=== PATIENT | female | born 1950 ===

== ENCOUNTER 2020-02-10 20:30 | Inpatient (IN) | payer MEDICARE, OTHER ==
[~2020-02-10] VITALS: Ht 152.4 cm; Wt 55.7 kg
[2020-02-10 21:57] VITALS: BP 129/72
[2020-02-10] MEDS ORDERED: CETI10TA16 PO (22:34)
[2020-02-10] MEDS ORDERED: TRAZ-125 PO (22:34)
[2020-02-10] MEDS ORDERED: ATOR20TA58 PO (22:34)
[2020-02-10] MEDS ORDERED: DICY20TA3 PO (22:34)
[2020-02-10] MEDS ORDERED: CLON0.5T4 PO (22:34)
[2020-02-10] MEDS ORDERED: LEVE500T6 PO (22:34)
[2020-02-10] MEDS ORDERED: HYDR500C16 PO (22:34)
[2020-02-10] MEDS ORDERED: FLUT16SP21 NS (22:34)
[2020-02-10] MEDS ORDERED: UMEC62.5 IH (22:34)
[2020-02-10] MEDS ORDERED: MAGN400T5 PO (22:34)
[2020-02-10] MEDS ORDERED: DIPH1TAB PO (22:34)
[2020-02-10] MEDS ORDERED: ASPI-424 PO (22:34)
[2020-02-10] MEDS ORDERED: FURO20TA3 PO (22:34)
[2020-02-10] MEDS ORDERED: PANT40TA6 PO (22:34)
[2020-02-10] MEDS ORDERED: MIRA50TA PO (22:34)
[2020-02-10] MEDS ORDERED: DILT120T3 PO (22:34)
[2020-02-10] MEDS ORDERED: SULF500T7 PO (22:34)
[2020-02-10] MEDS ORDERED: LIPA1CAP PO (22:34)
[2020-02-10] MEDS ORDERED: GABA-586 PO (22:34)
[2020-02-10] MEDS ORDERED: DULO30CA2 PO (22:34)
[2020-02-10] MEDS ORDERED: ALBU2.5V8 IH (22:34)
[2020-02-10] MEDS ORDERED: POTA20TA4 PO (22:34)
[2020-02-10] MEDS ORDERED: METHYL SALICYLATE/MENTHOL TOPICAL OINTMENT 57GM TUBE. TP PRN (22:45)
[2020-02-10] MEDS ORDERED: ACETAMINOPHEN 325 MG TABLET PO PRN (22:45)
[2020-02-10] MEDS ORDERED: MAGNESIUM HYDROXIDE 2,400 MG/30 ML ORAL.SUSP. PO PRN (22:45)
[2020-02-10] MEDS ORDERED: MAG HYDROX/AL HYDROX/SIMETH 30 ML ORAL.SUSP PO PRN (22:45)
[2020-02-10 23:29] LABS: BASO # 0.1 x10^3/uL (0.0-0.2); BASO % 1 % (0-3); EOS # 0.2 x10^3/uL (0.0-0.7); EOS % 2 % (0-3); HEMOGLOBIN 11.5 g/dL (12.0-15.5); LYMPH # 1.4 x10^3/uL (1.0-4.8); LYMPH % 18 % (24-48); MEAN CORPUSCULAR HEMOGLOBIN 29 pg (25-35); MEAN CORPUSCULAR HGB CONC 32 g/dL (31-37); MEAN CORPUSCULAR VOLUME 90 fL (79-100); MONO # 0.6 x10^3/uL (0.0-1.1); MONO % 8 % (0-9); NEUT # 5.4 x10^3uL (1.8-7.7); NEUT % 71 % (31-73); PLATELET COUNT 304 x10^3/uL (140-400); RED CELL DISTRIBUTION WIDTH 25.3 % (11.5-14.5); WHITE BLOOD COUNT 7.7 x10^3/uL (4.0-11.0)
[2020-02-10 23:44] LABS: ANISOCYTOSIS MOD; MICROCYTOSIS SLIGHT; PLT ESTIMATE ADEQUATE (ADEQUATE)
[2020-02-10 23:45] LABS: ALBUMIN 2.2 g/dL (3.4-5.0); ALBUMIN/GLOBULIN RATIO 0.8 (1.0-1.7); CALCIUM 7.7 mg/dL (8.5-10.1); CREATININE 0.8 mg/dL (0.6-1.0); GFR 71.3; MAGNESIUM 1.4 mg/dL (1.8-2.4); POTASSIUM 3.4 mmol/L (3.5-5.1); TOTAL BILIRUBIN 0.5 mg/dL (0.2-1.0); TOTAL PROTEIN 5.1 g/dL (6.4-8.2)
[2020-02-10] MEDS ORDERED: ALBUTEROL SULFATE 2.5 MG/3 ML NEBU. IH PRN (23:45)
[2020-02-11] MEDS: sulfaSALAzine 500 MG TABLET PO SCH ×4 (01:00→21:23)
[2020-02-11] MEDS: DIPHENOXYLATE/ATROPINE TABLET. PO SCH ×5 (01:57→21:11)
[2020-02-11] MEDS: clonazePAM 0.5 MG TABLET PO SCH ×4 (01:57→21:11)
[2020-02-11] MEDS: DICYCLOMINE HCL 20 MG TABLET PO SCH ×4 (01:58→21:12)
[2020-02-11] MEDS: DULoxetine HCL 30 MG CAPSULE.DR PO SCH ×3 (01:58→21:12)
[2020-02-11] MEDS: ATORVASTATIN CALCIUM 20 MG TABLET PO SCH ×2 (01:58→21:12)
[2020-02-11] MEDS: GABAPENTIN 300 MG CAPSULE. PO SCH ×5 (01:58→21:13)
[2020-02-11] MEDS: traZODone 100 MG TABLET. PO SCH ×2 (01:58→21:12)
[2020-02-11] MEDS: levETIRAcetam 500 MG TABLET PO SCH ×3 (01:58→21:12)
--- NOTE | 2020-02-11 04:01 | NUR ---
Nursing Note Pt arrived on unit with transport, is pleasant and cooperative but is actively hallucinating. She is seeing her son in the chair, a dog on the floor, and hears voices that she has conversations with. Pt became upset when she had a large stool incontinence episode in her brief. Validated patients feelings and told her that we were happy to take care of her and willing. Pt med compliant and cooperative.
[2020-02-11 06:22] VITALS: BP 119/58
[2020-02-11] MEDS ORDERED: DILTIAZEM HCL 120 MG PO SCH (09:00)
[2020-02-11] MEDS ORDERED: LIPASE PO SCH (09:00)
[2020-02-11] MEDS ORDERED: sulfaSALAzine 500 MG TABLET PO SCH (09:00)
[2020-02-11] MEDS ORDERED: PROTEASE PO SCH (09:00)
[2020-02-11] MEDS ORDERED: AMYLASE PO SCH (09:00)
[2020-02-11] MEDS ORDERED: DICYCLOMINE HCL 20 MG TABLET PO SCH (09:00)
[2020-02-11] MEDS ORDERED: DIPHENOXYLATE/ATROPINE TABLET. PO SCH (09:00)
[2020-02-11] MEDS ORDERED: DULoxetine HCL 30 MG CAPSULE.DR PO SCH (09:00)
[2020-02-11] MEDS ORDERED: NON FORMULARY ITEM (Umeclidinium Bromide (Incruse Ellipta) 1 PUFF) IH SCH (09:00)
[2020-02-11] MEDS ORDERED: clonazePAM 0.5 MG TABLET PO SCH (09:00)
[2020-02-11] MEDS ORDERED: GABAPENTIN 300 MG CAPSULE. PO SCH (09:00)
[2020-02-11] MEDS ORDERED: levETIRAcetam 500 MG TABLET PO SCH (09:00)
[2020-02-11] MEDS: FLUTICASONE 50MCG/NASAL SPRAY 16GM BOTTLE. NS SCH (09:00)
[2020-02-11] MEDS: ASPIRIN ENTERIC COATED 81 MG TABLET.DR. PO SCH (09:17)
[2020-02-11] MEDS: CETIRIZINE HCL 10 MG TABLET PO SCH (09:17)
[2020-02-11] MEDS: LIPASE/PROTEAS/AMYLAS 10/32/42 CAPSULE.DR. PO SCH ×3 (09:17→17:37)
[2020-02-11] MEDS: PANTOPRAZOLE 40 MG TABLET. PO SCH (09:18)
[2020-02-11] MEDS: IPRATRPIUM/ALBUTEROL 0.5/2.5MG 3 ML NEBU. NEB SCH ×2 (09:20→12:38)
--- NOTE | 2020-02-11 09:29 | EKG ---
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
--- NOTE | 2020-02-11 12:12 | HP ---
ADMIT DATE: 02/11/2020 ATTENDING PHYSICIAN: Dr. Pardo. CHIEF COMPLAINT: The patient is here for admission to the [facility] Unit. HISTORY OF PRESENT ILLNESS: The patient is a 69-year-old female from [place], [place]. She has been confused. She has been on long-term narcotics. She has been seeing people and wandering around naked. She was scheduled to go to the [facility] to adjust her medications. PAST MEDICAL HISTORY: Quite complicated. She is chronically ill. She has had multiple surgeries at least 4 documented for Crohn's disease. She has short bowel syndrome. In addition, she has a diagnosis of chronic pain syndrome, idiopathic seizure disorder and supposedly polycythemia vera. I have seen some hemoglobin around 16 grams, today she is at 11 grams, we have held her hydroxyurea. She has a longstanding history of Crohn's disease; congestive heart failure, compensated; pulmonary hypertension; protein-calorie malnutrition and metabolic encephalopathy. She is a smoker as noted. She denies any significant alcohol use. CURRENT MEDICATIONS: Reviewed. She was on scheduled albuterol, aspirin, Lipitor, cetirizine, clonazepam, Bentyl, diltiazem, atropine and diphenoxylate schedule, Cymbalta, fluticasone, furosemide, Neurontin, hydroxyurea, Keppra, Creon, magnesium oxide, Myrbetriq, Protonix, potassium, sulfasalazine, trazodone and increased Ellipta. ALLERGIES: She has several allergies including BUTORPHANOL, CEFOTAXIME, CODEINE, GLUTEN and LACTOSE. Exact reaction is unclear. SOCIAL HISTORY: She is a smoker as noted. No recreational drug use. FAMILY HISTORY: Unobtainable. REVIEW OF SYSTEMS: Unobtainable due to the patient's confusion. PHYSICAL EXAMINATION: GENERAL: When I saw her, this is a chronically ill-appearing female, appearing older than her stated age. INITIAL VITAL SIGNS: Showed a blood pressure 119/58, pulse 102 and regular, temperature 96.6 degrees Fahrenheit, oxygen saturation 92% on 2 liters of nasal cannula. HEENT: Head is without trauma. Pupils are reactive. Sclerae nonicteric. Oropharynx clear. NECK: Supple, no bruits. LUNGS: Good breath sounds. CARDIOVASCULAR: Showed a tachycardic rhythm, rate 105 per minute. No gallops. ABDOMEN: Soft, no guarding. Multiple surgical scars are well healed. There are no masses palpated. EXTREMITIES: Show no cyanosis or edema. NEUROLOGIC: Confused and disoriented. SKIN: Otherwise, warm and dry. LABORATORY STUDIES: Admission hemoglobin was down to 11.5 g/dL, white count 7700. Electrolytes: Sodium 142 mEq, potassium 3.4, creatinine 0.8 mg percent. Transaminases within normal range. Nonfasting blood sugar 121. ASSESSMENT: 1. A 69-year-old female with delirium and confusion. She has behavioral issues. There is underlying dementia. 2. Short bowel syndrome due to multiple surgeries from Crohn's disease. 3. Longstanding history of Crohn's disease. 4. Supposed history of polycythemia vera. She has been on hydroxyurea. Her counts are actually on the low side. 5. Narcotic dependence. RECOMMENDATIONS AND PLAN: 1. She will be admitted to the [facility] for behavioral issues pending her COVID-19 swab. 2. I have continued most of her home meds. For now, I have stopped her hydroxyurea as she does not need it. Whether or not she had polycythemia in the past, remains to be seen whether this was primary or secondary. This was ordered by role player in the past. 3. Underlying confusion and delirium. 4. History of Crohn's disease. 5. History of substance abuse and narcotic use. PLAN: 1. As I have discussed, she will be going to the [facility] when COVID-19 swabs are negative. 2. Continue some home meds. 3. Follow up CBCs and chemistries. I shall follow up with her closely when she goes to the [facility]. DMITRI PARDO MD DR: FRANCIS/caden JOB#: [id number] / [id number]
[2020-02-11 13:03] LABS: BACTERIA,URINE 0 /HPF (0-FEW); BILIRUBIN,URINE NEG (NEG); CLARITY,URINE CLEAR; COLOR,URINE YELLOW; GLUCOSE,URINE NEG (NEG); NITRITE,URINE NEG (NEG); RBC,URINE 0 /HPF (0-2); SQUAMOUS EPITHELIAL CELL,UR MOD /LPF; UROBILINOGEN,URINE 0.2 mg/dL (0.2 mg/dL)
[2020-02-11] MEDS ORDERED: ALBUTEROL SULFATE 8GM INHALER. INH PRN (16:15)
[2020-02-11] MEDS: IPRATROPIUM/ALBUTEROL 20/100mcg/INH INHALER. INH SCH ×2 (17:37→20:00)
[2020-02-11 18:11] VITALS: BP 102/62
[2020-02-11 19:40] LABS: THYROID STIM HORMONE (TSH) 0.053 uIU/mL (0.358-3.740)
[2020-02-11] MEDS ORDERED: traZODone 100 MG TABLET. PO SCH (21:00)
[2020-02-11] MEDS ORDERED: ATORVASTATIN CALCIUM 20 MG TABLET PO SCH (21:00)
[2020-02-11] MEDS: LACTOBACILLUS RHAMNOSUS GG 1 CAPSULE. PO SCH (21:14)
--- NOTE | 2020-02-11 22:03 | PDOC ---
Exam Note: Napoleon Note: Please also refer to the separate dictated note~for this date of service dictated separately.~Patient seen individually. Discussed the patient with Nursing staff reviewed the chart.~Reviewed interim history and current functioning. Reviewed vital signs,~Labs/ Radiology~and current medications noted below. Continue current treatment with the changes noted in the dictated addendum note Assessment: Vital Signs/I&O: Vital Signs Date Time Temp Pulse Resp B/P (MAP) Pulse Ox O2 Delivery O2 Flow Rate FiO2 02/11/20 18:11 98.1 97 18 102/62 (75) 95 02/11/20 08:15 Room Air 02/11/20 06:22 2.0 I & O 0 02/10/20 02/10/20 02/11/20 15:00 23:00 07:00 Intake Total 240 ml Balance 240 ml Labs: Laboratory Tests Test 02/10/20 23:12 02/11/20 10:30 White Blood Count 7.7 x10^3/uL (4.0-11.0) Red Blood Count 4.00 x10^6/uL (3.50-5.40) Hemoglobin 11.5 g/dL (12.0-15.5) L Hematocrit 36.0 % (36.0-47.0) Mean Corpuscular Volume 90 fL (79-100) Mean Corpuscular Hemoglobin 29 pg (25-35) Mean Corpuscular Hemoglobin Concent 32 g/dL (31-37) Red Cell Distribution Width 25.3 % (11.5-14.5) H Platelet Count 304 x10^3/uL (140-400) Neutrophils (%) (Auto) 71 % (31-73) Lymphocytes (%) (Auto) 18 % (24-48) L Monocytes (%) (Auto) 8 % (0-9) Eosinophils (%) (Auto) 2 % (0-3) Basophils (%) (Auto) 1 % (0-3) Neutrophils # (Auto) 5.4 x10^3uL (1.8-7.7) Lymphocytes # (Auto) 1.4 x10^3/uL (1.0-4.8) Monocytes # (Auto) 0.6 x10^3/uL (0.0-1.1) Eosinophils # (Auto) 0.2 x10^3/uL (0.0-0.7) Basophils # (Auto) 0.1 x10^3/uL (0.0-0.2) Platelet Estimate Adequate (ADEQUATE) Anisocytosis Mod Microcytosis Slight Sodium Level 142 mmol/L (136-145) Potassium Level 3.4 mmol/L (3.5-5.1) L Chloride Level 107 mmol/L (98-107) Carbon Dioxide Level 25 mmol/L (21-32) Anion Gap 10 (6-14) Blood Urea Nitrogen 9 mg/dL (7-20) Creatinine 0.8 mg/dL (0.6-1.0) Estimated GFR (Cockcroft-Gault) 71.3 BUN/Creatinine Ratio 11 (6-20) Glucose Level 121 mg/dL (70-99) H Calcium Level 7.7 mg/dL (8.5-10.1) L Magnesium Level 1.4 mg/dL (1.8-2.4) L Iron Level 37 ug/dL (50-170) L Total Iron Binding Capacity 267 ug/dL (250-450) Iron Saturation 14 % (15-34) L Total Bilirubin 0.5 mg/dL (0.2-1.0) Aspartate Amino Transferase (AST) 13 U/L (15-37) L Alanine Aminotransferase (ALT) 16 U/L (14-59) Alkaline Phosphatase 78 U/L (46-116) Total Protein 5.1 g/dL (6.4-8.2) L Albumin 2.2 g/dL (3.4-5.0) L Albumin/Globulin Ratio 0.8 (1.0-1.7) L Triglycerides Level 72 mg/dL (0-150) Cholesterol Level 85 mg/dL (0-200) LDL Cholesterol, Calculated 28 mg/dL (0-100) VLDL Cholesterol, Calculated 14 mg/dL (0-40) Non-HDL Cholesterol Calculated 42 mg/dL (0-129) HDL Cholesterol 43 mg/dL (40-60) Cholesterol/HDL Ratio 1.0 Vitamin B12 Level 236 pg/mL (247-911) L 25-Hydroxy Vitamin D Total 14.4 ng/mL (30-100) L Thyroid Stimulating Hormone (TSH) 0.053 uIU/mL (0.358-3.740) Treponema pallidum Antibody Nonreactive (Nonreactive) Urine Collection Type Unknown Urine Color Yellow Urine Clarity Clear Urine pH 6.0 Urine Specific [place] 1.015 Urine Protein Neg (NEG-TRACE) Urine Glucose (UA) Neg mg/dL (NEG) Urine Ketones (Stick) Neg mg/dL (NEG) Urine Blood Neg (NEG) Urine Nitrite Neg (NEG) Urine Bilirubin Neg (NEG) Urine Urobilinogen Dipstick 0.2 mg/dL (0.2 mg/dL) Urine Leukocyte Esterase Trace (NEG) Urine RBC 0 /HPF (0-2) Urine WBC 1-4 /HPF (0-4) Urine Squamous Epithelial Cells Mod /LPF Urine Bacteria 0 /HPF (0-FEW) Urine Mucus Slight /LPF Current Medications: Meds: Current Medications Medications (Trade) Dose Ordered Sig/Mya Route PRN Reason Start Time Stop Time Status Last Admin Dose Admin Aspirin (Aspirin Enteric Coated) 81 mg DAILYWBKFT PO 02/11/20 08:00 02/11/20 09:17 Cetirizine HCl (ZyrTEC) 10 mg DAILY PO 02/11/20 09:00 02/11/20 09:17 Pantoprazole Sodium (Protonix) 40 mg DAILYAC PO 02/11/20 07:30 02/11/20 09:18 Atorvastatin Calcium (Lipitor) 20 mg QHS PO 02/11/20 01:00 02/11/20 21:12 Clonazepam (KlonoPIN) 1 mg TID PO 02/11/20 01:00 02/11/20 21:11 Dicyclomine HCl (Bentyl) 20 mg TID PO 02/11/20 01:00 02/11/20 21:12 Diphenoxylate HCl/ Atropine (Lomotil) 2 tab QID PO 02/11/20 01:00 02/11/20 21:11 Duloxetine HCl (Cymbalta) 30 mg BID PO 02/11/20 01:00 02/11/20 21:12 Gabapentin (Neurontin) 300 mg QID PO 02/11/20 01:00 02/11/20 21:13 Levetiracetam (Keppra) 500 mg BID PO 02/11/20 01:00 02/11/20 21:12 Sulfasalazine (Azulfidine) 500 mg TID PO 02/11/20 01:00 02/11/20 21:23 Trazodone HCl (Desyrel) 100 mg QHS PO 02/11/20 01:00 02/11/20 21:12 Diltiazem HCl (Cardizem 24hr Cd) 120 mg DAILY PO 02/11/20 01:00 02/11/20 09:18 Albuterol/ Ipratropium (Duoneb) 3 ml RTQID NEB 02/11/20 08:00 02/11/20 15:58 DC 02/11/20 12:38 Amylase/Lipase/ Protease (Zenpep 10,000) 2 cap TIDWMEALS PO 02/11/20 08:00 02/11/20 17:37 Albuterol/ Ipratropium (Combivent Respimat 20-100 Mcg) 1 puff RTQID INH 02/11/20 16:00 02/11/20 17:37 Lactobacillus Rhamnosus (Culturelle) 1 cap BID PO 02/11/20 21:00 02/11/20 21:14 I have reviewed the current psychotropics carefully including drug interactions. Risk benefit ratio favors no change other than as noted in my dictated progress note. NITHIN STEVENS MD Feb 11, 2020 22:03
[2020-02-12 02:06] LABS: HEMOGLOBIN A1C 5.5 % (4.8-5.6); THYROXINE 6.5 ug/dL (4.5-12.0)
[2020-02-12 06:06] VITALS: BP_SYST 101; BP_SYST 107; BP_DIAS 58; BP_DIAS 62
[2020-02-12] MEDS: PANTOPRAZOLE 40 MG TABLET. PO SCH (07:52)
[2020-02-12] MEDS: sulfaSALAzine 500 MG TABLET PO SCH ×3 (07:52→20:24)
[2020-02-12] MEDS: levETIRAcetam 500 MG TABLET PO SCH ×2 (07:52→20:23)
[2020-02-12] MEDS: ASPIRIN ENTERIC COATED 81 MG TABLET.DR. PO SCH (07:53)
[2020-02-12] MEDS: LACTOBACILLUS RHAMNOSUS GG 1 CAPSULE. PO SCH ×2 (07:53→20:21)
[2020-02-12] MEDS: MIRABEGRON 25 MG TAB.ER.24H PO SCH (07:53)
[2020-02-12] MEDS: DIPHENOXYLATE/ATROPINE TABLET. PO SCH ×4 (07:53→20:25)
[2020-02-12] MEDS: DULoxetine HCL 30 MG CAPSULE.DR PO SCH ×2 (07:53→20:23)
[2020-02-12] MEDS: LIPASE/PROTEAS/AMYLAS 10/32/42 CAPSULE.DR. PO SCH ×3 (07:54→16:41)
[2020-02-12] MEDS: clonazePAM 0.5 MG TABLET PO SCH ×2 (07:54→14:49)
[2020-02-12] MEDS: GABAPENTIN 300 MG CAPSULE. PO SCH ×4 (07:54→20:24)
[2020-02-12] MEDS: DICYCLOMINE HCL 20 MG TABLET PO SCH ×3 (07:54→20:24)
[2020-02-12] MEDS: FLUTICASONE 50MCG/NASAL SPRAY 16GM BOTTLE. NS SCH (07:55)
[2020-02-12] MEDS: CETIRIZINE HCL 10 MG TABLET PO SCH (07:59)
[2020-02-12] MEDS: IPRATROPIUM/ALBUTEROL 20/100mcg/INH INHALER. INH SCH ×4 (08:02→20:21)
[2020-02-12] MEDS ORDERED: FLU VACC QS 2020-21(6MOS+)/PF 0.5 ML SYRINGE. VAX IM ONE (09:00)
[2020-02-12 11:08] VITALS: BP 136/74
--- NOTE | 2020-02-12 13:08 | PN ---
DATE: 02/12/2020 ATTENDING PHYSICIAN: Dr. Pardo. SUBJECTIVE: The patient has a diffuse nonspecific abdominal pain, she looks very depressed. She has no appetite. Food smell is nauseating to her. OBJECTIVE FINDINGS: VITAL SIGNS: Blood pressure today is 136/74, pulse 104 and regular. She is afebrile. Oxygen saturation 95%. HEENT: Head is without trauma. Pupils are reactive. Sclerae nonicteric. Oropharynx clear. NECK: Supple, no bruits. LUNGS: Shallow respirations. CARDIOVASCULAR: Showed a tachycardic rhythm. No gallops. ABDOMEN: Diffuse tenderness, guarding. Hypoactive bowel sounds. No masses palpated. Multiple scars are well healed. EXTREMITIES: Showed trace edema. NEUROLOGIC: Very flat affect. ASSESSMENT: 1. A 69-year-old female with delirium and confusion. There is underlying dementia. 2. Short bowel syndrome due to multiple surgeries for Crohn's disease. 3. Longstanding history of Crohn's disease. 4. Supposed history of polycythemia vera. 5. Probable narcotic withdrawal from long-term narcotic dependence. PLAN: 1. Medications reviewed. 2. Await [facility] admission following her COVID-19 swab. 3. Continue home meds. 4. Minimize narcotic use. DMITRI PARDO MD DR: FRANCIS/caden JOB#: [id number] / [id number]
[2020-02-12 15:00] VITALS: BP 102/55
--- NOTE | 2020-02-12 18:36 | NUR ---
Staff reports that patient put herself on the floor in her room. Staff reports seeing patient lower herself to the floor then crawling a few steps. Patient reports no pain or injuries. She is hypotensive. Staff assisted patient to her commode and reported that patient was able to do most of the work of standing and transferring herself. Will continue to monitor and report to oncoming shift.
[2020-02-12 18:37] VITALS: BP 89/60
[2020-02-12] MEDS: ATORVASTATIN CALCIUM 20 MG TABLET PO SCH (20:22)
[2020-02-12] MEDS: traZODone 100 MG TABLET. PO SCH (20:24)
[2020-02-12] MEDS: clonazePAM 1 MG TABLET PO SCH (20:26)
--- NOTE | 2020-02-12 20:53 | HP ---
ADMIT DATE: 02/11/2020 PSYCHITRIC ADMISSION HISTORY/EVALUATION TELEHEALTH SERVICES IDENTIFYING DATA: The patient is a 69-year-old female referred by her primary care physician. The patient reportedly lives at home, has been actively hallucinating. She has been going outside at night, dancing ____ under the moonlight. She has been anxious, wandering, have marked insomnia, tearful. She is having significant self-care deficit. Behaviors are deemed dangerous, unmanageable, functioning level is a potential danger to herself and she is referred for inpatient psychiatric stabilization. She is [facility] per Dr. Cheng, awaiting a COVID negative status before being transitioned to the [facility] and I have been asked to consult on her. CHIEF COMPLAINT: "I remember you from 15 years ago." HISTORY OF PRESENT ILLNESS: In fact, I have seen the patient about 15-20 years ago while at the [facility]. She has a diagnosis of major depressive disorder, questionable bipolar disorder, marked anxiety disorder. She has been living alone at home. States she is unable to function adequately and feels she needs a higher level of care. She has been somewhat hyperverbal, grandiose, paranoid. No active suicidal or homicidal ideation. PAST PSYCHIATRIC HISTORY: As above. MEDICAL HISTORY: Positive for polycythemia, thrombocytopenia, anxiety, COPD, back pain, degenerative joint disease, degenerative disk disease, short bowel syndrome, fibromyalgia, GERD, seizures, insomnia, osteoarthritis, panic attacks. CODE STATUS: Full code. ALLERGIES: CODEINE, CEFOXITIN, GLUTEN, LACTOSE, STADOL. DIET: Lactose free, gluten-free. ACTIVITY: Ambulates up with walker, standby assist. CURRENT PSYCHOTROPICS: Klonopin 1 mg t.i.d., Cymbalta 30 mg b.i.d., Neurontin 300 mg 4 times a day, Keppra 500 mg b.i.d., trazodone 100 mg at bedtime. FAMILY HISTORY: Noncontributory. SOCIAL HISTORY: No history of alcohol, drug abuse, physical, sexual or elder abuse. She is not known to be a perpetrator. 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 REACTION TO HOSPITALIZATION: The patient accepting of it. ASSETS: Supportive family. REVIEW OF SYSTEMS: No CV, , pulmonary, eye system symptoms on review. Gait unsteady with walker. MENTAL STATUS EXAM: The patient is reasonably oriented. Speech is coherent, abstraction fair, computation reasonable, language function intact, attention span short. Mood and affect somewhat labile. Attention span short. No active suicidal or homicidal ideation. LABORATORY DATA: Reviewed. IMPRESSION: Major depressive disorder, rule out bipolar disorder, mixed with psychotic features; anxiety disorder, unspecified; impulse control disorder, unspecified. Rest as above. PLAN: Recommendation from a psychiatric standpoint to continue the patient on her current psychotropics, observe baseline, adjust as clinically indicated. Await echo with negative status and then transition to [facility]. Further plans will be determined thereafter. NITHIN STEVENS MD DR: PAYTON/caden JOB#: [id number] / [id number]
[2020-02-12] MEDS ORDERED: QUEtiapine 25 MG TABLET. PO SCH (21:00)
[2020-02-12 21:36] VITALS: BP 105/64
--- NOTE | 2020-02-12 22:35 | PDOC ---
Exam Note: Napoleon Note: Please also refer to the separate dictated note~for this date of service dictated separately.~Patient seen individually. Discussed the patient with Nursing staff reviewed the chart.~Reviewed interim history and current functioning. Reviewed vital signs,~Labs/ Radiology~and current medications noted below. Continue current treatment with the changes noted in the dictated addendum note Assessment: Vital Signs/I&O: Vital Signs Date Time Temp Pulse Resp B/P (MAP) Pulse Ox O2 Delivery O2 Flow Rate FiO2 02/12/20 21:36 98.0 96 20 105/64 (78) 95 Nasal Cannula 2.0 I & O 02/11/20 02/11/20 02/12/20 15:00 23:00 07:00 Intake Total 480 ml 1200 ml 200 ml Balance 480 ml 1200 ml 200 ml Current Medications: Meds: Current Medications Medications (Trade) Dose Ordered Sig/Mya Route PRN Reason Start Time Stop Time Status Last Admin Dose Admin Mirabegron (Myrbetriq) 50 mg DAILY PO 02/12/20 09:00 02/12/20 07:53 Influenza Virus Vaccine Quadrival (Fluzone Quad Syringe) 0.5 ml ONCE ONCE VAX IM 02/12/20 09:00 02/12/20 09:01 DC 02/12/20 12:11 Clonazepam (KlonoPIN) 1 mg 1400,2100 PO 02/12/20 21:00 02/12/20 20:26 Quetiapine Fumarate (SEROquel) 25 mg QHS PO 02/12/20 21:00 02/12/20 20:24 I have reviewed the current psychotropics carefully including drug interactions. Risk benefit ratio favors no change other than as noted in my dictated progress note. Diagnosis: Problems: (1) Major depressive disorder with psychotic features (2) Anxiety disorder, unspecified (3) Impulse control disorder, unspecified NITHIN STEVENS MD Feb 12, 2020 22:35
--- NOTE | 2020-02-12 23:59 | NUR ---
Patient is awake in bed on assumption of care. She is disorganized, confused, forgetful. Gait is unsteady. Compliant with assessments. Needed several cues to swallow her pills, she kept rolling them around in her mouth. Once she had swallowed them, she apologized, stating "Sorry for being so difficult." This nurse reassured her that was not the case, that she was no trouble at all. No agitation. Patient denies any pain or discomfort. No hallucinations or delusions noted so far this shift. Patient appears to be sleeping comfortably at present time. Bed alarm is on for safety. Will continue to monitor.
[2020-02-13 06:00] VITALS: BP 112/58
--- NOTE | 2020-02-13 06:35 | PDOC ---
Exam Note: Napoleon Note: This note is a late entry for 02/12/2020 covers elements not covered in my initial note. Subjective: The patient was reviewed on telehealth rounds in the evening of 02/12/2020 with Hadley BARR. Discussed with nursing staff, reviewed the chart. The patient has been somewhat helpless, attention seeking but not tearful. She complains of GI symptoms and will defer to Dr Cheng. Review of Systems: No CV, , pulmonary, eye system symptoms on review. Ambulation impaired. Mental Status Exam: Reasonably oriented. Speech is coherent. Abstraction fair. Computation impaired. Language function impaired. Mood and affect remains somewhat labile. Laboratory Data: Reviewed. Impression: Bipolar disorder mixed. Major depressive disorder. Anxiety disorder unspecified. Plan: The patient is on Klonopin 1 mg t.i.d. for anxiety. This is rather high dosage. She is somewhat sedated at times. We will reduce to 0.5 mg a.m., 1 mg b.i.d. and further reduce in due course and maintain Cymbalta 30 mg b.i.d., gabapentin 300 mg 4 times a day, Keppra 500 mg b.i.d. for seizure disorder and we will consult Dr. Alvarado for this, and trazodone will be maintained at 100 mg h.s. We will start Seroquel 25 mg h.s. as a mood stabilizer. Assessment: Vital Signs/I&O: Vital Signs Date Time Temp Pulse Resp B/P (MAP) Pulse Ox O2 Delivery O2 Flow Rate FiO2 02/12/20 21:36 98.0 96 20 105/64 (78) 95 Nasal Cannula 2.0 I & O 02/12/20 02/12/20 02/13/20 15:00 23:00 07:00 Intake Total 600 ml 640 ml 0 ml Output Total 600 ml Balance 600 ml 40 ml 0 ml Current Medications: Meds: Current Medications Medications (Trade) Dose Ordered Sig/Mya Route PRN Reason Start Time Stop Time Status Last Admin Dose Admin Mirabegron (Myrbetriq) 50 mg DAILY PO 02/12/20 09:00 02/12/20 07:53 Influenza Virus Vaccine Quadrival (Fluzone Quad Syringe) 0.5 ml ONCE ONCE VAX IM 02/12/20 09:00 10/2/20 09:01 DC 02/12/20 12:11 Clonazepam (KlonoPIN) 1 mg 1400,2100 PO 02/12/20 21:00 02/12/20 20:26 Quetiapine Fumarate (SEROquel) 25 mg QHS PO 02/12/20 21:00 02/12/20 20:24 I have reviewed the current psychotropics carefully including drug interactions. Risk benefit ratio favors no change other than as noted in my dictated progress note. Diagnosis: Problems: (1) Impulse control disorder, unspecified (2) Anxiety disorder, unspecified (3) Major depressive disorder with psychotic features NITHIN STEVENS MD Feb 13, 2020 06:35
--- NOTE | 2020-02-13 06:57 | NUR ---
Pt. was pleasant with all interactions throughout shift. Pt enjoyed talking about her family (two sons and their children) Pt asked "will I have to bring my own tv when i transfer upstairs?" i responded that we did not have tvs in the room upstairs because part of the therapeutic process involved getting restful sleep and that TV tended to be counter productive. pt said "aw man, no tv!" I replied to pt that we did have kindles and we could get her set up so that she could watch some programming. Pt was satisfied with this plan. Pt had difficulty maintaining posture in the evening (falling over to one side or back when attempting to sit up on the edge of bed). Pt had difficulty transfering from bed to commode, was able to bear weight but unable to maintain balance (listing to the side and appeared likely to collapse). Pt sat on commode and requested water to be ran "to help her pee" and responded "sometimes" when I asked if she had difficulty urinating. I moved the commode closer to bed so that pt would be able to stand and pivot to commode rather than walk to it. A gaitbelt would be helpful in maintaining safety with transfers while pt is unsteady. In AM pt. was also unable to mantain posture while sitting, when assisting pt to commode I requested assistance of the nurse for two person transfer. Pt. was incontinent of urine in AM and i changed brief and bed asad (was also wet with urine from overnight incontinence). After sitting on the commode for approximately 10 minutes pt was able to grab bedrail and loop arm under my arm and rise to standing position. I asked pt to hold on rail while i cleansed sara area with green incontinence wipes. I pulled pt brief up and assisted her to sitting position on the bed before assisting pt with legs into bed and helped her straighten up once she was lying in bed. Pt was talkative in AM and enjoyed the company of staff.
[2020-02-13] MEDS: IPRATROPIUM/ALBUTEROL 20/100mcg/INH INHALER. INH SCH ×2 (08:54→12:05)
[2020-02-13] MEDS: PANTOPRAZOLE 40 MG TABLET. PO SCH (08:54)
[2020-02-13] MEDS: ASPIRIN ENTERIC COATED 81 MG TABLET.DR. PO SCH (08:54)
[2020-02-13] MEDS: FLUTICASONE 50MCG/NASAL SPRAY 16GM BOTTLE. NS SCH (08:54)
[2020-02-13] MEDS: LIPASE/PROTEAS/AMYLAS 10/32/42 CAPSULE.DR. PO SCH ×2 (08:54→12:04)
[2020-02-13] MEDS: DULoxetine HCL 30 MG CAPSULE.DR PO SCH (08:55)
[2020-02-13] MEDS: levETIRAcetam 500 MG TABLET PO SCH (08:55)
[2020-02-13] MEDS: sulfaSALAzine 500 MG TABLET PO SCH ×2 (08:55→12:04)
[2020-02-13] MEDS: DICYCLOMINE HCL 20 MG TABLET PO SCH ×2 (08:55→12:04)
[2020-02-13] MEDS: LACTOBACILLUS RHAMNOSUS GG 1 CAPSULE. PO SCH (08:55)
[2020-02-13] MEDS: CETIRIZINE HCL 10 MG TABLET PO SCH (08:56)
[2020-02-13] MEDS: GABAPENTIN 300 MG CAPSULE. PO SCH ×2 (08:56→12:04)
[2020-02-13] MEDS: MIRABEGRON 25 MG TAB.ER.24H PO SCH (08:56)
[2020-02-13 09:00] VITALS: BP 112/58
[2020-02-13] MEDS ORDERED: clonazePAM 0.5 MG TABLET PO SCH (09:00)
[2020-02-13] MEDS: DIPHENOXYLATE/ATROPINE TABLET. PO SCH ×2 (09:06→12:04)
[2020-02-13 10:18] LABS: ALBUMIN 2.2 g/dL (3.4-5.0); ALBUMIN/GLOBULIN RATIO 0.7 (1.0-1.7); CREATININE 0.9 mg/dL (0.6-1.0); GFR 62.3; POTASSIUM 3.9 mmol/L (3.5-5.1); TOTAL BILIRUBIN 0.6 mg/dL (0.2-1.0); TOTAL PROTEIN 5.2 g/dL (6.4-8.2)
--- NOTE | 2020-02-13 10:29 | NUR ---
Dr. Cheng informed of urine C & S. New order for Keflex 250mg PO TID x 5 days
[2020-02-13] MEDS ORDERED: levoFLOXacin 250 MG TABLET PO SCH (10:30)
--- NOTE | 2020-02-13 10:34 | NUR ---
Spoke to Paula in the pharmacy regarding pts abt allergy. She will call Dr. Cheng and recommend Adithya.
--- NOTE | 2020-02-13 11:47 | NUR ---
Discharge Note: SHY MCGHEE Discharge instructions and discharge home medications reviewed with Imposer and a copy given. All questions have been answered and understanding verbalized. The following instructions and handouts were given: Discontinued lines and drains: none present. Patient discharged to [facility] accompanied by [facility] Staff via Wheelchair.
[2020-02-13] MEDS: clonazePAM 1 MG TABLET PO SCH (12:04)
[2020-02-13 12:13] VITALS: BP 105/64
--- NOTE | 2020-02-13 13:11 | NUR ---
Pt was on the commode in her room and requested assistance to go to bed. While assisting pt to bed nurse educated pt on UTI's. Pt stated "I don't appreciate being scolded at my age." Nurse informed pt she was not being scolded, the nurse was educating her on UTI's since she (the pt) currently has one." Pt then attempted to stand from the commode, became wobbly and sat down. When nurse assisted pt, pt stated I don't need your help. Nurse educated, and reminded pt about falls. Pt then allowed nurse to assist. Pt then utilized her rolling walker and walked rolling walker to the wall and bent over at a 90 degree angle. When nurse asked what she was doing pt stated she was putting her walker over there. The pt then turned around and attemted to pick a item off the floor and placed herself on the floor while nurse had her hands under the pts arms. Nurse assisted pt to bed, placed side, rails up, bed alarm on and educated pt on safety and fall prevention. Pt stated. "they told me this place was good boy were they wrong." Pt continued to ask nurse for several items such as a blanket and to pull a table closer to her. Call light is within reach.
[2020-02-13] MEDS ORDERED: METH57CR17 TP (16:35)
[2020-02-13] MEDS ORDERED: ALBU2.5V8 IH (16:35)
[2020-02-13] MEDS ORDERED: LEVO500T8 PO (16:35)
[2020-02-13] MEDS ORDERED: QUET25TA5 PO (16:35)
[2020-02-13] MEDS ORDERED: MAGN24003 PO (16:35)
[2020-02-13] MEDS ORDERED: MAG355OR12 PO (16:35)
[2020-02-13] MEDS ORDERED: IPRA4AER INH (16:35)
[2020-02-13] MEDS ORDERED: CLON1TAB PO (16:35)
[2020-02-13] MEDS ORDERED: LACT1CAP21 PO (16:35)
[2020-02-13] MEDS ORDERED: ACET325T9 PO (16:35)
[2020-02-13] MEDS ORDERED: LACTOBACILLUS RHAMNOSUS GG 1 CAPSULE. PO SCH (21:00)
--- NOTE | 2020-02-14 02:58 | DS ---
DATE OF DISCHARGE: 02/13/2020 ATTENDING PHYSICIAN: Dr. Pardo FINAL DISCHARGE DIAGNOSES: 1. Acute delirium with confusion. 2. Underlying dementia. 3. 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 4. Crohn's disease. 5. History of polycythemia vera. 6. Probable narcotic withdrawal from long-term narcotic dependence. HISTORY OF PRESENT ILLNESS: This 69-year-old female is admitted to the medical floor for screening COVID-19. Eventually, she is scheduled to go to the [facility]. She comes from a [facility] and has significant delusional aspect along with behavioral issues. PHYSICAL EXAMINATION: Please see the dictated note. PERTINENT LABORATORY AND X-RAY STUDIES: Her coronavirus screen was not detected. Treponema pallidum was nonreactive. Hemoglobin was 11.5 g/dL. White count 7700. Electrolytes, BUN and creatinine, blood sugar are all within normal range. COURSE IN THE HOSPITAL: The patient was admitted. We continued most of her home meds. Diet was advanced. She had COVID-19 screening. She was medically stable. COVID-19 screen came back positive. On the third hospital day, she was discharged to be readmitted in the [facility]. She will follow a regular diet as tolerated. Her discharge meds are basically unchanged. They include the following: She will have continuation of her aspirin daily, Lipitor daily, cetirizine, clonazepam 0.5 mg t.i.d., Bentyl 20 mg t.i.d., diltiazem 120 t.i.d., fluticasone nasal spray, Lasix, Neurontin, Keppra, Creon, magnesium oxide, Myrbetriq, Protonix, potassium supplementation, sulfasalazine, trazodone and Incruse Ellipta, doses unchanged. She is a full code. Her prognosis is guarded. She was discharged then from our service to go to the [facility] in stable condition with explicit instructions and followup care. DMITRI PARDO MD DR: FRANCIS/caden JOB#: [id number] / [id number]
== END 2020-02-13 14:02 | disposition short-term general hospital (02) | DRG 948 ==
LOC: LND 20:30
PROVIDERS: ADMIT Hospitalist; ATTEND Hospitalist
DX: R41.0 Disorientation, unspecified (principal); K91.2 Postsurgical malabsorption, not elsewhere classified; K50.90 Crohn's disease, unspecified, without complications; F31.9 Bipolar disorder, unspecified; G89.4 Chronic pain syndrome; F63.9 Impulse disorder, unspecified; F41.9 Anxiety disorder, unspecified; Z20.828 Contact with and (suspected) exposure to other viral communicable diseases; D75.1 Secondary polycythemia; D69.6 Thrombocytopenia, unspecified; J44.9 Chronic obstructive pulmonary disease, unspecified; K21.9 Gastro-esophageal reflux disease without esophagitis; M19.90 Unspecified osteoarthritis, unspecified site; F41.0 Panic disorder [episodic paroxysmal anxiety]; Z91.83 Wandering in diseases classified elsewhere; I50.9 Heart failure, unspecified; F17.210 Nicotine dependence, cigarettes, uncomplicated; G40.909 Epilepsy, unspecified, not intractable, without status epilepticus
CPT/HCPCS: 36415; 80053; 80061; 81001; 82306; 82607; 83036; 83540; 83550; 83735; 84436; 84443; 84480; 85025; 86592; 87077; 87086; 87186; 90471; 93005; J7613; 90686; U0003-CS

== ENCOUNTER 2020-02-13 14:02 | Inpatient (IN) | payer MEDICARE, OTHER ==
[~2020-02-13] VITALS: Ht 152.4 cm; Wt 56.0 kg
[~2020-02-13 14:02] MED LIST: ALBU2.5V8 IH; ASPI-424 PO; ATOR20TA58 PO; CETI10TA16 PO; CLON0.5T4 PO; DICY20TA3 PO; DILT120T3 PO; DIPH1TAB PO; DULO30CA2 PO; FLUT16SP21 NS; FURO20TA3 PO; GABA-586 PO; HYDR500C16 PO; LEVE500T6 PO; LIPA1CAP PO; MAGN400T5 PO; MIRA50TA PO; PANT40TA6 PO; POTA20TA4 PO; SULF500T7 PO; TRAZ-125 PO; UMEC62.5 IH
--- NOTE | 2020-02-13 14:30 | NUR ---
Admission Note with Justification for Admission to [facility] Patient admitted to [facility] for protective oversight for emergency stabilization of acute psychiatric crisis. Pt admitted from: 48 hr unit Mode of arrival: wc Accompanied By: [facility] staff Precipitating behaviors that initiated intake and admission: hallucinations, running outside naked. anxiety Description of failure of out patient attempts at stabilization in previous setting list behavior and medication trials: clonapin, seroquel Behaviors and assessment findings upon admission: anxious attention seeking Plan: Admit for protective oversight for adjustment and stabilization of medications, behaviors and mood. Intense treatment regimen including groups, medication adjustments, therapy, consistent regimen for ADL's, self care, and sleep hygiene. Daily monitoring by Inpatient staff, Psychiatry, and Medical Physician.
[2020-02-13 15:45] VITALS: BP 100/69
[2020-02-13] MEDS ORDERED: LACT1CAP21 PO (16:35)
[2020-02-13] MEDS ORDERED: IPRA4AER INH (16:35)
[2020-02-13] MEDS ORDERED: ACET325T9 PO (16:35)
[2020-02-13] MEDS ORDERED: MAG355OR12 PO (16:35)
[2020-02-13] MEDS ORDERED: CLON1TAB PO (16:35)
[2020-02-13] MEDS ORDERED: MAGN24003 PO (16:35)
[2020-02-13] MEDS ORDERED: QUET25TA5 PO (16:35)
[2020-02-13] MEDS ORDERED: ALBU2.5V8 IH (16:35)
[2020-02-13] MEDS ORDERED: LEVO500T8 PO (16:35)
[2020-02-13] MEDS ORDERED: METH57CR17 TP (16:35)
[2020-02-13] MEDS ORDERED: ACETAMINOPHEN 325 MG TABLET PO PRN (16:45)
[2020-02-13] MEDS ORDERED: ALBUTEROL SULFATE 8GM INHALER. INH PRN (16:45)
[2020-02-13] MEDS ORDERED: MAG HYDROX/AL HYDROX/SIMETH 30 ML ORAL.SUSP PO PRN (16:45)
[2020-02-13] MEDS ORDERED: METHYL SALICYLATE/MENTHOL TOPICAL OINTMENT 57GM TUBE. TP SCH (17:00)
[2020-02-13] MEDS ORDERED: MAGNESIUM HYDROXIDE 2,400 MG/30 ML ORAL.SUSP. PO PRN (17:15)
[2020-02-13] MEDS: DIPHENOXYLATE/ATROPINE TABLET. PO SCH ×2 (17:44→20:33)
[2020-02-13] MEDS: GABAPENTIN 300 MG CAPSULE. PO SCH ×2 (17:44→20:32)
[2020-02-13] MEDS ORDERED: METHYL SALICYLATE/MENTHOL TOPICAL OINTMENT 57GM TUBE. TP PRN (17:45)
[2020-02-13] MEDS: IPRATROPIUM/ALBUTEROL 20/100mcg/INH INHALER. INH SCH (20:30)
[2020-02-13] MEDS: clonazePAM 1 MG TABLET PO SCH (20:31)
[2020-02-13] MEDS: traZODone 100 MG TABLET. PO SCH (20:31)
[2020-02-13] MEDS: LACTOBACILLUS RHAMNOSUS GG 1 CAPSULE. PO SCH (20:31)
[2020-02-13] MEDS: ATORVASTATIN CALCIUM 20 MG TABLET PO SCH (20:31)
[2020-02-13] MEDS: DICYCLOMINE HCL 20 MG TABLET PO SCH (20:32)
[2020-02-13] MEDS: QUEtiapine 25 MG TABLET. PO SCH (20:32)
[2020-02-13] MEDS: DULoxetine HCL 30 MG CAPSULE.DR PO SCH (20:32)
[2020-02-13] MEDS: sulfaSALAzine 500 MG TABLET PO SCH (20:32)
[2020-02-13] MEDS: levETIRAcetam 500 MG TABLET PO SCH (20:33)
--- NOTE | 2020-02-13 21:51 | PDOC ---
Exam Note: Napoleon Note: Please also refer to the separate dictated note~for this date of service dictated separately.~Patient seen individually. Discussed the patient with Nursing staff reviewed the chart.~Reviewed interim history and current functioning. Reviewed vital signs,~Labs/ Radiology~and current medications noted below. Continue current treatment with the changes noted in the dictated addendum note Assessment: Vital Signs/I&O: Vital Signs Date Time Temp Pulse Resp B/P (MAP) Pulse Ox O2 Delivery O2 Flow Rate FiO2 02/13/20 15:45 99.0 102 20 100/69 (79) 91 4.0 Current Medications: Meds: Current Medications Medications (Trade) Dose Ordered Sig/Mya Route PRN Reason Start Time Stop Time Status Last Admin Dose Admin Atorvastatin Calcium (Lipitor) 20 mg QHS PO 02/13/20 21:00 02/13/20 20:31 Dicyclomine HCl (Bentyl) 20 mg TID PO 02/13/20 21:00 02/13/20 20:32 Diphenoxylate HCl/ Atropine (Lomotil) 2 tab QID PO 02/13/20 17:00 02/13/20 20:33 Duloxetine HCl (Cymbalta) 30 mg BID PO 02/13/20 21:00 02/13/20 20:32 Gabapentin (Neurontin) 300 mg QID PO 02/13/20 17:00 02/13/20 20:32 Levetiracetam (Keppra) 500 mg BID PO 02/13/20 21:00 02/13/20 20:33 Sulfasalazine (Azulfidine) 500 mg TID PO 02/13/20 21:00 02/13/20 20:32 Trazodone HCl (Desyrel) 100 mg QHS PO 02/13/20 21:00 02/13/20 20:31 Clonazepam (KlonoPIN) 1 mg 0900,1400,2100 PO 02/13/20 21:00 02/13/20 20:31 Quetiapine Fumarate (SEROquel) 25 mg HS PO 02/13/20 21:00 02/13/20 20:32 Albuterol/ Ipratropium (Combivent Respimat 20-100 Mcg) 1 puff [id number] INH 02/13/20 21:00 02/13/20 20:30 Lactobacillus Rhamnosus (Culturelle) 1 cap BID PO 02/13/20 21:00 02/13/20 20:31 I have reviewed the current psychotropics carefully including drug interactions. Risk benefit ratio favors no change other than as noted in my dictated progress note. Diagnosis: Problems: (1) Impulse control disorder, unspecified (2) Anxiety disorder, unspecified (3) Major depressive disorder with psychotic features NITHIN STEVENS MD Feb 13, 2020 21:51
--- NOTE | 2020-02-13 23:59 | NUR ---
Patient is in her room on assumption of care. She is pleasant, cooperative and compliant with assessments and medications taken whole. No agitation. Denies any pain or discomfort. Patient appears to be sleeping comfortably at present time. Will continue to monitor.
--- NOTE | 2020-02-14 01:05 | NUR ---
Pt pleasant with interaction. Sleeping most of evening shift except when awoken to assess temperature and oxygen saturations.
[2020-02-14] MEDS: levoFLOXacin 250 MG TABLET PO SCH (05:07)
[2020-02-14 05:52] VITALS: BP 107/65
--- NOTE | 2020-02-14 06:39 | PDOC ---
Exam Note: Napoleon Note: PSYCHIATRIC ADMISSION HISTORY/EVALUATION This note is a late entry for 02/13/2020 covers elements not covered in my initial note. Identifying Data: The patient is a 69-year-old female who is transitioned from half-way unit to the [facility] after she returned COVID negative. Consultation was done on the half-way unit and is being incorporated as part of this dictation since that information has not changed. History of Present Illness: Subjectively, the patient was reviewed on telehealth rounds in the evening of 02/13/2020 with Eloisa BARR. Discussed with nursing staff, reviewed the chart. I have seen the patient about 15-20 years ago while at the [facility]. She has diagnoses of major depressive disorder, questionable bipolar disorder, marked anxiety disorder. She states she is unable to function adequately and feels she needs higher level of care. She has been putting herself on the floor, anxious, restless, appears more confused at times. She was in bed during telehealth rounds. No active suicidal or homicidal ideation. Past Psychiatric History: As above. Medical History: Positive for polycythemia, thrombocytopenia, anxiety, COPD, back pain, degenerative joint disease, degenerative disk disease, short bowel syndrome, fibromyalgia, GERD, seizures, insomnia, osteoarthritis, panic attacks. Code Status: Full code. Allergies: CODEINE, CEFOXITIN, GLUTEN, LACTOSE, STADOL. Diet: Regular, takes medications whole, ambulates with walker. Current Psychotropics: Klonopin 1 mg t.i.d., Cymbalta 30 mg b.i.d., Neurontin 300 mg 4 times a day, Keppra 500 mg b.i.d., trazodone 100 mg bedtime. Family History: Non-contributory. Social History: No history of alcohol, drug abuse, physical, sexual, or elder abuse. She is not known to be perpetrator. She is a retired [employer]. Review of Systems: No CV, , pulmonary, eye system symptoms on review. Ambulation impaired. Mental Status Exam: Reasonably oriented. Speech otherwise has been coherent. Abstraction fair. Computation impaired. Language function impaired. Mood and affect remains somewhat anxious, labile. Laboratory Data: Reviewed. Impression: Major depressive disorder, rule out bipolar disorder, mixed psychotic features. Anxiety disorder unspecified. Impulse control disorder unspecified. Rest as above. Plan: Continue current psychotropics. Klonopin was reduced from 1 mg t.i.d. to 0.5 mg in the morning and 1 mg twice a day. Maintain Cymbalta 30 mg a day. She was started on Seroquel 25 mg h.s. Continue gabapentin 300 mg 4 times a day, Keppra 500 mg b.i.d. for seizure disorder. Consult with Dr. Cheng awaited. Trazodone will be continued at 100 mg h.s. Adjust further as clinically indicated. Assessment: Vital Signs/I&O: Vital Signs Date Time Temp Pulse Resp B/P (MAP) Pulse Ox O2 Delivery O2 Flow Rate FiO2 02/14/20 05:52 98.1 96 20 107/65 (79) 90 3.0 02/14/20 00:59 Nasal Cannula I & O 02/13/20 02/13/20 02/14/20 15:00 23:00 07:00 Intake Total 240 ml 120 ml Output Total 650 ml Balance -410 ml 120 ml Current Medications: Meds: Current Medications Medications (Trade) Dose Ordered Sig/Mya Route PRN Reason Start Time Stop Time Status Last Admin Dose Admin Atorvastatin Calcium (Lipitor) 20 mg QHS PO 02/13/20 21:00 02/13/20 20:31 Dicyclomine HCl (Bentyl) 20 mg TID PO 02/13/20 21:00 02/13/20 20:32 Diphenoxylate HCl/ Atropine (Lomotil) 2 tab QID PO 02/13/20 17:00 02/13/20 20:33 Duloxetine HCl (Cymbalta) 30 mg BID PO 02/13/20 21:00 02/13/20 20:32 Gabapentin (Neurontin) 300 mg QID PO 02/13/20 17:00 02/13/20 20:32 Levetiracetam (Keppra) 500 mg BID PO 02/13/20 21:00 02/13/20 20:33 Sulfasalazine (Azulfidine) 500 mg TID PO 02/13/20 21:00 02/13/20 20:32 Trazodone HCl (Desyrel) 100 mg QHS PO 02/13/20 21:00 02/13/20 20:31 Clonazepam (KlonoPIN) 1 mg 0900,1400,2100 PO 02/13/20 21:00 10/3/20 20:31 Levofloxacin (Levaquin) 250 mg DAILY06 PO 02/14/20 06:00 02/17/20 06:01 02/14/20 05:07 Quetiapine Fumarate (SEROquel) 25 mg HS PO 02/13/20 21:00 02/13/20 20:32 Albuterol/ Ipratropium (Combivent Respimat 20-100 Mcg) 1 puff [id number] INH 02/13/20 21:00 02/13/20 20:30 Lactobacillus Rhamnosus (Culturelle) 1 cap BID PO 02/13/20 21:00 02/13/20 20:31 I have reviewed the current psychotropics carefully including drug interactions. Risk benefit ratio favors no change other than as noted in my dictated progress note. Diagnosis: Problems: (1) Impulse control disorder, unspecified (2) Anxiety disorder, unspecified (3) Major depressive disorder with psychotic features NITHIN STEVENS MD Feb 14, 2020 06:39
--- NOTE | 2020-02-14 07:45 | NUR ---
At 1914, during safety rounds, REPLANTING MACHINE CREW found patient laying on the floor next to her bed. Patient has small laceration to her left eyebrow and a small skin tear on her left elbow. Patient denies pain. Vital signs taken, WNL for patient. This RN asked her what happened, and she stated, "Well, I was reaching to get my straw and my orange juice. I like to be independent, ya know. But I guess those days are over now. I know I was supposed to ask for help." Safety mats brought into room and placed next to bed. Patient reminded that she needs to get help with ambulation, and she was in agreement. Dr. Cheng notified, no new orders. Patient's DPOA (Patel Moise, son) was called but did not answer the telephone. RN left message for him to call the unit. Patient cleaned up and placed back in her bed with alarm set for safety. Will continue to monitor. Addendum: 02/15/20 at 1923 by SIRIA BARRERA RN RN this note was logged at the incorrect time. This incident occurred at 1914 on 02/14/2020.
[2020-02-14] MEDS ORDERED: clonazePAM 0.5 MG TABLET PO SCH (09:00)
[2020-02-14] MEDS: DIPHENOXYLATE/ATROPINE TABLET. PO SCH ×4 (09:07→20:45)
[2020-02-14] MEDS: clonazePAM 1 MG TABLET PO SCH ×2 (09:07→12:28)
[2020-02-14] MEDS: CETIRIZINE HCL 10 MG TABLET PO SCH (09:07)
[2020-02-14] MEDS: DICYCLOMINE HCL 20 MG TABLET PO SCH ×3 (09:07→20:44)
[2020-02-14] MEDS: GABAPENTIN 300 MG CAPSULE. PO SCH ×4 (09:07→20:44)
[2020-02-14] MEDS: DULoxetine HCL 30 MG CAPSULE.DR PO SCH ×2 (09:08→20:45)
[2020-02-14] MEDS: FLUTICASONE 50MCG/NASAL SPRAY 16GM BOTTLE. NS SCH (09:08)
[2020-02-14] MEDS: PANTOPRAZOLE 40 MG TABLET. PO SCH (09:08)
[2020-02-14] MEDS: ASPIRIN ENTERIC COATED 81 MG TABLET.DR. PO SCH (09:08)
[2020-02-14] MEDS: LIPASE/PROTEAS/AMYLAS 10/32/42 CAPSULE.DR. PO SCH ×3 (09:08→17:05)
[2020-02-14] MEDS: levETIRAcetam 500 MG TABLET PO SCH ×2 (09:08→20:44)
[2020-02-14] MEDS: LACTOBACILLUS RHAMNOSUS GG 1 CAPSULE. PO SCH ×2 (09:08→20:45)
[2020-02-14] MEDS: sulfaSALAzine 500 MG TABLET PO SCH ×3 (09:08→20:44)
[2020-02-14] MEDS: MIRABEGRON 25 MG TAB.ER.24H PO SCH (09:08)
[2020-02-14] MEDS: IPRATROPIUM/ALBUTEROL 20/100mcg/INH INHALER. INH SCH ×4 (09:09→20:43)
--- NOTE | 2020-02-14 10:24 | NUR ---
Patient is complaint with cares. Patient expressed feeling tiered today. Patient assisted to bathroom.
[2020-02-14 16:22] VITALS: BP 101/70
--- NOTE | 2020-02-14 16:49 | NUR ---
Dr. Cheng contacted for patients increase in oxygen dependancy. Patient also has a temp of 99.9. Chest X-ray place per physician request. Patient needs 2 liters o2 to maintain saturation in the 90%. Patient decreases to 85% when off oxygen.
--- NOTE | 2020-02-14 18:25 | RAD ---
CHEST AP ONLY History: Reason: decrease o2 / Spl. Instructions: / History: Comparison: None. Findings: Small bilateral pleural effusions. Patchy bibasilar opacities. No pneumothorax. External media monitor device noted. Normal heart size. Impression: 1. Patchy bibasilar opacities, may represent atelectasis or consolidations. 2. Small bilateral pleural effusions. Electronically signed by: Vicente Johnson DO (02/14/2020 6:22 PM) [facility]
[2020-02-14] MEDS ORDERED: NEOMY/BACITR/POLYMYXIN OINT PACKET. TP ONE (19:30)
[2020-02-14] MEDS: QUEtiapine 25 MG TABLET. PO SCH (20:43)
[2020-02-14] MEDS: ATORVASTATIN CALCIUM 20 MG TABLET PO SCH (20:44)
[2020-02-14] MEDS: traZODone 100 MG TABLET. PO SCH (20:45)
[2020-02-14] MEDS ORDERED: clonazePAM 1 MG TABLET PO SCH (21:00)
--- NOTE | 2020-02-14 22:08 | PDOC ---
Exam Note: Napoleon Note: Please also refer to the separate dictated note~for this date of service dictated separately.~Patient seen individually. Discussed the patient with Nursing staff reviewed the chart.~Reviewed interim history and current functioning. Reviewed vital signs,~Labs/ Radiology~and current medications noted below. Continue current treatment with the changes noted in the dictated addendum note Assessment: Vital Signs/I&O: Vital Signs Date Time Temp Pulse Resp B/P (MAP) Pulse Ox O2 Delivery O2 Flow Rate FiO2 02/14/20 16:22 99.9 106 18 101/70 (80) 96 02/14/20 05:52 3.0 02/14/20 00:59 Nasal Cannula I & O0 02/13/20 02/13/20 02/14/20 15:00 23:00 07:00 Intake Total 240 ml 120 ml Output Total 650 ml Balance -410 ml 120 ml Current Medications: Meds: Current Medications Medications (Trade) Dose Ordered Sig/Mya Route PRN Reason Start Time Stop Time Status Last Admin Dose Admin Aspirin (Aspirin Enteric Coated) 81 mg DAILY PO 02/14/20 09:00 02/14/20 09:08 Cetirizine HCl (ZyrTEC) 10 mg DAILY PO 02/14/20 09:00 02/14/20 09:07 Fluticasone Propionate (Flonase) 2 spray DAILY NS 02/14/20 09:00 02/14/20 09:08 Pantoprazole Sodium (Protonix) 40 mg DAILYAC PO 02/14/20 07:30 02/14/20 09:08 Diltiazem HCl (Cardizem 24hr Cd) 120 mg DAILY PO 02/14/20 09:00 02/14/20 09:08 Amylase/Lipase/ Protease (Zenpep 10,000) 2 cap TIDWMEALS PO 02/14/20 08:00 02/14/20 17:05 Mirabegron (Myrbetriq) 50 mg DAILY PO 02/14/20 09:00 02/14/20 09:08 Levofloxacin (Levaquin) 250 mg DAILY06 PO 02/14/20 06:00 02/17/20 06:01 02/14/20 05:07 Clonazepam (KlonoPIN) 1 mg HS PO 02/14/20 21:00 02/14/20 20:46 I have reviewed the current psychotropics carefully including drug interactions. Risk benefit ratio favors no change other than as noted in my dictated progress note. Diagnosis: Problems: (1) Impulse control disorder, unspecified (2) Anxiety disorder, unspecified (3) Major depressive disorder with psychotic features NITHIN STEVENS MD Feb 14, 2020 22:08
--- NOTE | 2020-02-14 23:59 | NUR ---
Patient has remained in her bed, with bed alarm on for safety. She has not attempted to ambulate again without asking for assistance. She has had no complaints of any pain or discomfort. No agitation. She appears to be sleeping comfortably at present time. Will continue to monitor.
[2020-02-15] MEDS: levoFLOXacin 250 MG TABLET PO SCH (05:10)
[2020-02-15 06:25] VITALS: BP 102/67
--- NOTE | 2020-02-15 06:42 | PDOC ---
Exam Note: Napoleon Note: This note is a late entry for 02/14/2020 covers elements not covered in my initial note. Subjective: The patient was reviewed on telehealth rounds in the evening of 02/14/2020 with Roger BARR. Discussed with nursing staff, reviewed the chart. Per Roger BARR, she slept 9-1/2 hours previous night. She has been putting herself on the floor, somewhat lethargic, has a temperature 99.9 degrees. Chest x-ray has been ordered. We will defer to Dr. Cheng. Review of Systems: Positive for feeling tired. No CV, , pulmonary, eye system symptoms on review. Mental Status Exam: Reasonably oriented. Speech is coherent, not very verbal as she typically is because she appeared tired. Abstraction is fair. Computation impaired. Language function intact. Attention span is short. Mood and affect somewhat withdrawn. Laboratory Data: Reviewed. Impression: Major depressive disorder, rule out bipolar disorder, mixed psychotic features. Anxiety disorder unspecified. Impulse control disorder unspecified. Rule out pneumonia. We will defer to Dr. Cheng. She is running low- grade temperature. Plan: Continue current psychotropics. We have reduced the Klonopin by 0.5 mg daily and she was taking 1 mg t.i.d. at admission. We will reduce it by another 0.5 mg with the afternoon dosage to get it down to 0.5 mg twice a day and 1 mg h.s. We will reduce further gradually and continue rest of the psychotropics unchanged. Assessment: Vital Signs/I&O: Vital Signs Date Time Temp Pulse Resp B/P (MAP) Pulse Ox O2 Delivery O2 Flow Rate FiO2 02/15/20 06:25 97.7 102 20 102/67 (79) 83 2.0 02/14/20 00:59 Nasal Cannula I & O 02/14/20 02/14/20 02/15/20 15:00 23:00 07:00 Intake Total 600 ml 120 ml Balance 600 ml 120 ml Current Medications: Meds: Current Medications Medications (Trade) Dose Ordered Sig/Mya Route PRN Reason Start Time Stop Time Status Last Admin Dose Admin Aspirin (Aspirin Enteric Coated) 81 mg DAILY PO 02/14/20 09:00 02/14/20 09:08 Cetirizine HCl (ZyrTEC) 10 mg DAILY PO 02/14/20 09:00 02/14/20 09:07 Fluticasone Propionate (Flonase) 2 spray DAILY NS 02/14/20 09:00 02/14/20 09:08 Pantoprazole Sodium (Protonix) 40 mg DAILYAC PO 02/14/20 07:30 02/14/20 09:08 Diltiazem HCl (Cardizem 24hr Cd) 120 mg DAILY PO 02/14/20 09:00 02/14/20 09:08 Amylase/Lipase/ Protease (Zenpep 10,000) 2 cap TIDWMEALS PO 02/14/20 08:00 02/14/20 17:05 Mirabegron (Myrbetriq) 50 mg DAILY PO 02/14/20 09:00 02/14/20 09:08 Clonazepam (KlonoPIN) 1 mg HS PO 02/14/20 21:00 02/14/20 20:46 I have reviewed the current psychotropics carefully including drug interactions. Risk benefit ratio favors no change other than as noted in my dictated progress note. Diagnosis: Problems: (1) Impulse control disorder, unspecified (2) Anxiety disorder, unspecified (3) Major depressive disorder with psychotic features INTHIN STEVENS MD Feb 15, 2020 06:42
[2020-02-15] MEDS ORDERED: clonazePAM 1 MG TABLET PO SCH (09:00)
[2020-02-15] MEDS: ASPIRIN ENTERIC COATED 81 MG TABLET.DR. PO SCH (09:18)
[2020-02-15] MEDS: PANTOPRAZOLE 40 MG TABLET. PO SCH (09:18)
[2020-02-15] MEDS: LIPASE/PROTEAS/AMYLAS 10/32/42 CAPSULE.DR. PO SCH ×3 (09:18→17:01)
[2020-02-15] MEDS: IPRATROPIUM/ALBUTEROL 20/100mcg/INH INHALER. INH SCH ×4 (09:18→19:56)
[2020-02-15] MEDS: DIPHENOXYLATE/ATROPINE TABLET. PO SCH ×4 (09:19→20:00)
[2020-02-15] MEDS: DULoxetine HCL 30 MG CAPSULE.DR PO SCH ×2 (09:19→19:59)
[2020-02-15] MEDS: LACTOBACILLUS RHAMNOSUS GG 1 CAPSULE. PO SCH ×2 (09:19→19:59)
[2020-02-15] MEDS: GABAPENTIN 300 MG CAPSULE. PO SCH ×4 (09:19→19:56)
[2020-02-15] MEDS: levETIRAcetam 500 MG TABLET PO SCH ×2 (09:19→19:58)
[2020-02-15] MEDS: CETIRIZINE HCL 10 MG TABLET PO SCH (09:19)
[2020-02-15] MEDS: DICYCLOMINE HCL 20 MG TABLET PO SCH ×3 (09:19→19:58)
[2020-02-15] MEDS: FLUTICASONE 50MCG/NASAL SPRAY 16GM BOTTLE. NS SCH (09:21)
[2020-02-15] MEDS: sulfaSALAzine 500 MG TABLET PO SCH ×3 (09:24→19:57)
[2020-02-15] MEDS: MIRABEGRON 25 MG TAB.ER.24H PO SCH (09:25)
--- NOTE | 2020-02-15 13:23 | NUR ---
Pt is complaint with her medication and assessment. No agitation, no aggression, no hallucinations, no delusions.
--- NOTE | 2020-02-15 15:29 | NUR ---
BUSTER attempted to contact pt son Patel to complete pt PSA and to follow up on any concerns that he has at this time. SW left a message asking pt son to call SW when possible. SW will follow up with pt at a later time.
[2020-02-15 15:47] VITALS: BP 108/66
[2020-02-15 15:48] LABS: BASO # 0.1 x10^3/uL (0.0-0.2); BASO % 1 % (0-3); EOS # 0.1 x10^3/uL (0.0-0.7); EOS % 2 % (0-3); HEMATOCRIT 31.8 % (36.0-47.0); HEMOGLOBIN 10.3 g/dL (12.0-15.5); LYMPH # 0.9 x10^3/uL (1.0-4.8); LYMPH % 13 % (24-48); MEAN CORPUSCULAR HEMOGLOBIN 28 pg (25-35); MEAN CORPUSCULAR HGB CONC 32 g/dL (31-37); MEAN CORPUSCULAR VOLUME 88 fL (79-100); MONO # 0.5 x10^3/uL (0.0-1.1); MONO % 7 % (0-9); NEUT # 5.4 x10^3uL (1.8-7.7); NEUT % 77 % (31-73); PLATELET COUNT 427 x10^3/uL (140-400); RED BLOOD COUNT 3.62 x10^6/uL (3.50-5.40); RED CELL DISTRIBUTION WIDTH 23.4 % (11.5-14.5)
[2020-02-15 15:53] LABS: CALCIUM 8.6 mg/dL (8.5-10.1); CREATININE 0.7 mg/dL (0.6-1.0); GFR 83.2
[2020-02-15 15:58] LABS: POTASSIUM 2.9 mmol/L (3.5-5.1)
--- NOTE | 2020-02-15 16:02 | NUR ---
Michael with lab called and stated pt has a critical K of 2.9. Dr Cheng called and new order of K-Dur 20MEQ TID and BMP daily X 3 days.
[2020-02-15] MEDS: POTASSIUM CHLORIDE 20 MEQ TABLET.ER. PO SCH ×2 (16:54→19:58)
[2020-02-15 19:36] VITALS: BP 103/68
[2020-02-15] MEDS: QUEtiapine 25 MG TABLET. PO SCH (19:58)
[2020-02-15] MEDS: ATORVASTATIN CALCIUM 20 MG TABLET PO SCH (19:59)
[2020-02-15] MEDS: traZODone 100 MG TABLET. PO SCH (20:00)
--- NOTE | 2020-02-15 21:59 | PDOC ---
Exam Note: Napoleon Note: Please also refer to the separate dictated note~for this date of service dictated separately.~Patient seen individually. Discussed the patient with Nursing staff reviewed the chart.~Reviewed interim history and current functioning. Reviewed vital signs,~Labs/ Radiology~and current medications noted below. Continue current treatment with the changes noted in the dictated addendum note Assessment: Vital Signs/I&O: Vital Signs Date Time Temp Pulse Resp B/P (MAP) Pulse Ox O2 Delivery O2 Flow Rate FiO2 02/15/20 19:36 102 103/68 (80) 02/15/20 17:03 92 Nasal Cannula 3.0 02/15/20 15:47 97.8 16 I & O0 02/14/20 02/14/20 02/15/20 15:00 23:00 07:00 Intake Total 600 ml 120 ml Balance 600 ml 120 ml Labs: Laboratory Tests Test 02/15/20 14:51 White Blood Count 7.0 x10^3/uL (4.0-11.0) Red Blood Count 3.62 x10^6/uL (3.50-5.40) Hemoglobin 10.3 g/dL (12.0-15.5) L Hematocrit 31.8 % (36.0-47.0) L Mean Corpuscular Volume 88 fL (79-100) Mean Corpuscular Hemoglobin 28 pg (25-35) Mean Corpuscular Hemoglobin Concent 32 g/dL (31-37) Red Cell Distribution Width 23.4 % (11.5-14.5) H Platelet Count 427 x10^3/uL (140-400) H Neutrophils (%) (Auto) 77 % (31-73) H Lymphocytes (%) (Auto) 13 % (24-48) L Monocytes (%) (Auto) 7 % (0-9) Eosinophils (%) (Auto) 2 % (0-3) Basophils (%) (Auto) 1 % (0-3) Neutrophils # (Auto) 5.4 x10^3uL (1.8-7.7) Lymphocytes # (Auto) 0.9 x10^3/uL (1.0-4.8) L Monocytes # (Auto) 0.5 x10^3/uL (0.0-1.1) Eosinophils # (Auto) 0.1 x10^3/uL (0.0-0.7) Basophils # (Auto) 0.1 x10^3/uL (0.0-0.2) Sodium Level 142 mmol/L (136-145) Potassium Level 2.9 mmol/L (3.5-5.1) *L Chloride Level 106 mmol/L (98-107) Carbon Dioxide Level 33 mmol/L (21-32) H Anion Gap 3 (6-14) L Blood Urea Nitrogen 4 mg/dL (7-20) L Creatinine 0.7 mg/dL (0.6-1.0) Estimated GFR (Cockcroft-Gault) 83.2 Glucose Level 115 mg/dL (70-99) H Calcium Level 8.6 mg/dL (8.5-10.1) Current Medications: Meds: Current Medications Medications (Trade) Dose Ordered Sig/Mya Route PRN Reason Start Time Stop Time Status Last Admin Dose Admin Potassium Chloride (Klor-Con) 20 meq TID PO 02/15/20 16:00 02/15/20 19:58 I have reviewed the current psychotropics carefully including drug interactions. Risk benefit ratio favors no change other than as noted in my dictated progress note. Diagnosis: Problems: (1) Impulse control disorder, unspecified (2) Anxiety disorder, unspecified (3) Major depressive disorder with psychotic features NITHIN STEVENS MD Feb 15, 2020 21:59
--- NOTE | 2020-02-15 23:59 | NUR ---
Patient is awake in bed on assumption of care. She is in pleasant spirits. Calm, cooperative and compliant with assessments and medications taken whole. No agitation. Denies SI. Denies any pain or discomfort. Patient appears to be sleeping comfortably at present time. Will continue to monitor.
[2020-02-16] MEDS: levoFLOXacin 250 MG TABLET PO SCH (05:52)
[2020-02-16 06:26] VITALS: BP 104/70
[2020-02-16 06:58] LABS: CALCIUM 8.3 mg/dL (8.5-10.1); CREATININE 0.8 mg/dL (0.6-1.0); GFR 71.3; POTASSIUM 3.9 mmol/L (3.5-5.1)
[2020-02-16] MEDS: PANTOPRAZOLE 40 MG TABLET. PO SCH (08:25)
[2020-02-16] MEDS: POTASSIUM CHLORIDE 20 MEQ TABLET.ER. PO SCH ×3 (08:25→20:49)
[2020-02-16] MEDS: LIPASE/PROTEAS/AMYLAS 10/32/42 CAPSULE.DR. PO SCH ×3 (08:25→18:08)
[2020-02-16] MEDS: LACTOBACILLUS RHAMNOSUS GG 1 CAPSULE. PO SCH ×2 (08:25→20:49)
[2020-02-16] MEDS: GABAPENTIN 300 MG CAPSULE. PO SCH ×4 (08:25→20:49)
[2020-02-16] MEDS: sulfaSALAzine 500 MG TABLET PO SCH ×3 (08:26→20:50)
[2020-02-16] MEDS: levETIRAcetam 500 MG TABLET PO SCH ×2 (08:26→20:49)
[2020-02-16] MEDS: DIPHENOXYLATE/ATROPINE TABLET. PO SCH ×4 (08:26→20:50)
[2020-02-16] MEDS: MIRABEGRON 25 MG TAB.ER.24H PO SCH (08:26)
[2020-02-16] MEDS: ASPIRIN ENTERIC COATED 81 MG TABLET.DR. PO SCH (08:27)
[2020-02-16] MEDS: DULoxetine HCL 30 MG CAPSULE.DR PO SCH ×2 (08:27→20:49)
[2020-02-16] MEDS: IPRATROPIUM/ALBUTEROL 20/100mcg/INH INHALER. INH SCH ×4 (08:27→21:40)
[2020-02-16] MEDS: CETIRIZINE HCL 10 MG TABLET PO SCH (08:27)
[2020-02-16] MEDS: DICYCLOMINE HCL 20 MG TABLET PO SCH ×3 (08:27→20:50)
[2020-02-16] MEDS: FLUTICASONE 50MCG/NASAL SPRAY 16GM BOTTLE. NS SCH (08:27)
--- NOTE | 2020-02-16 10:25 | NUR ---
ACTIVITY THERAPY ASSESSMENT Completed based on observation, notes, and interview. Pt. was in her room and agreeable to speak with PHYSICAL BIOCHEMIST. When asked if the patient had been here before, she said no and said she was never coming back here. She expressed frustrations with staff who yell at her and don't listen to her. She explained no one likes her to get up on her own and she don't know why she can't walk well but she can't help that she has "wobbly legs." Pt. was using oxygen and had a chair alarm attached to her shirt for safety. She was aware she has been falling more lately and explained she's here because she wants to get into a long-term. She said that was her idea. While she was living at home, alone, her tv stopped working for a month. She said she would not be here if her tv was working like normal. She elaborated by saying "silence is not law." Her neighbor, Aide, brought her a radio while her tv was broke for some noise and was working on fixing the tv while Pt is here. Aide has invited Pt. over to watch tv at times. Pt. wants to go into a long-term near her house so her and Aide can remain close. She also explained she wants to be treated "like a human being" and is aware of the increasing support she is starting to need and feels a long-term would be better for her. She commented how she "can't take much more." Pt. reported that she enjoys sleeping, watching tv, magazines, coloring, word searches, cards (played rook), enjoys coke/ sprite/ root beer, and listens to classic rock n' roll. 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 She was told that she has dementia and is currently being treated for a UTI. Pt. did ask to use the restroom but was saying she's having trouble actually urinating. PHYSICAL BIOCHEMIST spoke to Pt's nurse regarding this concern. Pt asked if she could join group earlier that morning but when asked during the assessment, she stated she was "agorahobic" and didn't like big crowds/ around a lot of people. PHYSICAL BIOCHEMIST explained group set up a bit more and asked if Pt. was able to wear a mask and remain in group for an hour at a time, she was unsure about being able to stay in there the entire duration but said she could see. Pt. explained group size is limited and spread out for safety. Pt. was still unsure about groups at this time. Initial goal aimed to increase socialization and engagement: Pt. will participate in at least three Activity Therapy individual or group sessions per week.
--- NOTE | 2020-02-16 15:34 | NUR ---
Patient has been attention seeking, helpless, and withdrawn most of this shift. This morning she made repeated requests for drinks to multiple staff members and consumed at least 3 juices, 2 carmen in addition to having her water cups refilled multiple times. She also stated that certain staff are mistreating her; when those staff members enter her room she became hostile and sarcastic. She has been in bed, eyes closed, resting comfortably since lunch. Will continue to monitor.
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
[2020-02-16 16:04] VITALS: BP 102/66
[2020-02-16] MEDS: ATORVASTATIN CALCIUM 20 MG TABLET PO SCH (20:49)
[2020-02-16] MEDS: traZODone 100 MG TABLET. PO SCH (20:49)
[2020-02-16] MEDS: QUEtiapine 25 MG TABLET. PO SCH (20:49)
--- NOTE | 2020-02-16 21:44 | PDOC ---
Exam Note: Napoleon Note: Please also refer to the separate dictated note~for this date of service dictated separately.~Patient seen individually. Discussed the patient with Nursing staff reviewed the chart.~Reviewed interim history and current functioning. Reviewed vital signs,~Labs/ Radiology~and current medications noted below. Continue current treatment with the changes noted in the dictated addendum note Assessment: Vital Signs/I&O: Vital Signs Date Time Temp Pulse Resp B/P (MAP) Pulse Ox O2 Delivery O2 Flow Rate FiO2 02/16/20 16:04 97.9 92 16 102/66 (78) 86 02/16/20 06:26 3.0 02/15/20 17:03 Nasal Cannula I & O 02/15/20 02/15/20 02/16/20 15:00 23:00 07:00 Intake Total 896 ml 240 ml Balance 896 ml 240 ml Labs: Laboratory Tests Test 02/16/20 06:37 Sodium Level 142 mmol/L (136-145) Potassium Level 3.9 mmol/L (3.5-5.1) # Chloride Level 104 mmol/L (98-107) Carbon Dioxide Level 32 mmol/L (21-32) Anion Gap 6 (6-14) Blood Urea Nitrogen 6 mg/dL (7-20) L Creatinine 0.8 mg/dL (0.6-1.0) Estimated GFR (Cockcroft-Gault) 71.3 Glucose Level 107 mg/dL (70-99) H Calcium Level 8.3 mg/dL (8.5-10.1) L Current Medications: I have reviewed the current psychotropics carefully including drug interactions. Risk benefit ratio favors no change other than as noted in my dictated progress note. Diagnosis: Problems: (1) Impulse control disorder, unspecified (2) Anxiety disorder, unspecified (3) Major depressive disorder with psychotic features NITHIN STEVENS MD Feb 16, 2020 21:44
--- NOTE | 2020-02-16 22:35 | NUR ---
This evening pt has been pleasant and cooperative with cares. She took meds whole without difficulty. She denies pain or SI, hallucinations or delusions. O2 on per NC at HS.
[2020-02-17] MEDS: levoFLOXacin 250 MG TABLET PO SCH (05:25)
[2020-02-17 06:02] VITALS: BP 111/75
[2020-02-17 06:50] LABS: CALCIUM 8.7 mg/dL (8.5-10.1); CREATININE 0.8 mg/dL (0.6-1.0); GFR 71.3; POTASSIUM 4.2 mmol/L (3.5-5.1)
--- NOTE | 2020-02-17 07:00 | PDOC ---
Exam Note: Napoleon Note: This note is a late entry for 02/15/2020 covers elements not covered in my initial note. Subjective: The patient was reviewed on telehealth rounds in the morning for treatment team meeting of 02/15/2020 with Lety, social service staff and Shweta BARR. Discussed with nursing staff, reviewed the chart. The patient was also reviewed on telehealth rounds in the evening. Appetite is 50%. She slept 8-1/4 hours previous night. Her chest x-ray reportedly shows some fluffy areas and atelectasis rectrocardiac. We will defer to Dr. Cheng/Dr. Clark. She has been laying herself on the floor. The patients Klonopin has been discontinued per Dr. Cheng consequent to her sedation. Review of Systems: Positive for tiredness. No CV, , pulmonary, eye system symptoms on review. Mental Status Exam: She is alert and oriented. She has been leaning to the left. Speech has some latency. Often response is monosyllabic, coherent. Abstraction is fair. Computation impaired. Language function intact. Attention span is short. Mood and affect somewhat withdrawn, anxious at times, labile. No suicidal or homicidal ideation. Laboratory Data: Reviewed. Impression: Major depressive disorder, rule out bipolar disorder, mixed psychotic features. Anxiety disorder unspecified. Impulse control disorder unspecified. Plan: No change from initial note. Defer medical management to Dr. Cheng/Dr. Clark. Assessment: Vital Signs/I&O: Vital Signs Date Time Temp Pulse Resp B/P (MAP) Pulse Ox O2 Delivery O2 Flow Rate FiO2 02/17/20 06:02 97.7 95 16 111/75 (87) 88 02/16/20 06:26 3.0 02/15/20 17:03 Nasal Cannula I & O 02/16/20 02/16/20 02/17/20 15:00 23:00 07:00 Intake Total 796 ml 300 ml 240 ml Balance 796 ml 300 ml 240 ml Labs: Laboratory Tests Test 02/17/20 06:21 Sodium Level 141 mmol/L (136-145) Potassium Level 4.2 mmol/L (3.5-5.1) Chloride Level 104 mmol/L (98-107) Carbon Dioxide Level 31 mmol/L (21-32) Anion Gap 6 (6-14) Blood Urea Nitrogen 5 mg/dL (7-20) L Creatinine 0.8 mg/dL (0.6-1.0) Estimated GFR (Cockcroft-Gault) 71.3 Glucose Level 102 mg/dL (70-99) H Calcium Level 8.7 mg/dL (8.5-10.1) Current Medications: I have reviewed the current psychotropics carefully including drug interactions. Risk benefit ratio favors no change other than as noted in my dictated progress note. Diagnosis: Problems: (1) Impulse control disorder, unspecified (2) Anxiety disorder, unspecified (3) Major depressive disorder with psychotic features NITHIN STEVENS MD Feb 17, 2020 07:00
--- NOTE | 2020-02-17 07:08 | PDOC ---
Exam Note: Napoleon Note: This note is a late entry for 02/16/2020 covers elements not covered in my initial note. Subjective: The patient was reviewed on telehealth rounds in the evening of 02/16/2020 with Hadley BARR. Discussed with nursing staff, reviewed the chart. Her potassium is better at 3.9. She is on Levaquin for UTI. She slept 9-1/2 hours previous night. In the morning, she was attention seeking, somewhat helpless. In the afternoon she took a nap, then did better. She is somewhat dehydrated. Fluid intake has been pushed. Review of Systems: Positive for tiredness. Impaired ambulation. No CV, , eye system symptoms on review though chest x-ray does show some pleural effusion. Mental Status Exam: Reasonable oriented. Speech is coherent. Abstraction is fair. Computation impaired. Language function intact. Mood and affect somewhat anxious, labile but some of it is explained by her medical condition. Laboratory Data: Reviewed. Impression: Major depressive disorder, rule out bipolar disorder, mixed psychotic features. Anxiety disorder unspecified. Impulse control disorder unspecified. Plan: No change from initial note. Assessment: Vital Signs/I&O: Vital Signs Date Time Temp Pulse Resp B/P (MAP) Pulse Ox O2 Delivery O2 Flow Rate FiO2 02/17/20 06:02 97.7 95 16 111/75 (87) 88 02/16/20 06:26 3.0 02/15/20 17:03 Nasal Cannula I & O 02/16/20 02/16/20 02/17/20 15:00 23:00 07:00 Intake Total 796 ml 300 ml 240 ml Balance 796 ml 300 ml 240 ml Labs: Laboratory Tests Test 02/17/20 06:21 Sodium Level 141 mmol/L (136-145) Potassium Level 4.2 mmol/L (3.5-5.1) Chloride Level 104 mmol/L (98-107) Carbon Dioxide Level 31 mmol/L (21-32) Anion Gap 6 (6-14) Blood Urea Nitrogen 5 mg/dL (7-20) L Creatinine 0.8 mg/dL (0.6-1.0) Estimated GFR (Cockcroft-Gault) 71.3 Glucose Level 102 mg/dL (70-99) H Calcium Level 8.7 mg/dL (8.5-10.1) Current Medications: I have reviewed the current psychotropics carefully including drug interactions. Risk benefit ratio favors no change other than as noted in my dictated progress note. Diagnosis: Problems: (1) Impulse control disorder, unspecified (2) Anxiety disorder, unspecified (3) Major depressive disorder with psychotic features NITHIN STEVENS MD Feb 17, 2020 07:08
[2020-02-17] MEDS: IPRATROPIUM/ALBUTEROL 20/100mcg/INH INHALER. INH SCH ×4 (09:01→20:49)
[2020-02-17] MEDS: DIPHENOXYLATE/ATROPINE TABLET. PO SCH ×4 (09:03→20:49)
[2020-02-17] MEDS: DICYCLOMINE HCL 20 MG TABLET PO SCH ×3 (09:03→20:50)
[2020-02-17] MEDS: ASPIRIN ENTERIC COATED 81 MG TABLET.DR. PO SCH (09:03)
[2020-02-17] MEDS: LIPASE/PROTEAS/AMYLAS 10/32/42 CAPSULE.DR. PO SCH ×3 (09:03→17:23)
[2020-02-17] MEDS: MIRABEGRON 25 MG TAB.ER.24H PO SCH (09:07)
[2020-02-17] MEDS: POTASSIUM CHLORIDE 20 MEQ TABLET.ER. PO SCH ×3 (09:07→20:50)
[2020-02-17] MEDS: CETIRIZINE HCL 10 MG TABLET PO SCH (09:07)
[2020-02-17] MEDS: GABAPENTIN 300 MG CAPSULE. PO SCH ×4 (09:08→20:51)
[2020-02-17] MEDS: levETIRAcetam 500 MG TABLET PO SCH ×2 (09:08→20:51)
[2020-02-17] MEDS: FLUTICASONE 50MCG/NASAL SPRAY 16GM BOTTLE. NS SCH (09:08)
[2020-02-17] MEDS: sulfaSALAzine 500 MG TABLET PO SCH ×3 (09:08→20:52)
[2020-02-17] MEDS: DULoxetine HCL 30 MG CAPSULE.DR PO SCH ×2 (09:08→20:50)
[2020-02-17] MEDS: LACTOBACILLUS RHAMNOSUS GG 1 CAPSULE. PO SCH ×2 (09:08→20:50)
[2020-02-17] MEDS: PANTOPRAZOLE 40 MG TABLET. PO SCH (09:08)
--- NOTE | 2020-02-17 13:23 | TX PLAN ---
Interdisciplinary Tx Plan Admission Information Feb 13, 2020 at 14:02 Legal Status (on Admission): Voluntary DPOA/Guardian Name: Patel Moise Contact Other Contact Verified Code Status: Full Code Allergies: Coded Allergies: butorphanol (Verified Allergy, Unknown, 02/13/20) cefoxitin (Verified Allergy, Unknown, 02/13/20) codeine (Verified Allergy, Unknown, 02/13/20) gluten (Verified Allergy, Unknown, 02/13/20) lactose (Verified Allergy, Unknown, 02/13/20) Diagnoses Primary Diagnosis: MDD Reasons for Admission: Sig. Change Sleep, Anxiety/Panic, Hallucinations, Poor impulse control, Other Problem in Patient's Words: "To be honest, I didn't know my mom was doing any of this. We aren't close". Additional Admission Comments: According to the intake, pt is hallucinating (seeing people), goes out naked at night and dances in the moonlight, wandering, self-care deficits, anxious, insomnia and tearful. Problems Active Problems: Anxious Putting self on the floor Inactive Problems: Medication compliant Cooperative [facility] Pt Strengths/Limitations Ability for [place]: Poor Cognitive Functioning/Ability: Fair Communication Skills/Ability: Fair Financial Resources: Poor Insight/Judgement: Poor Intellectual Ability: Fair Physical Health: Poor Social Skills: Fair Stability in Family: Poor Stability in School/Work: Poor Verbal Skills: Fair Discharge Criteria Discharge Criteria: No need for close observ., Adequate arrangements @DC, Improved behavior, Improved mood/thought Preliminary Discharge Plan Preliminary DC Plan: Placement Needed Special Precautions Fall Risk: Moderate Initial D/C Plan Pt will not be able to return home. Referral for AL will be sent out on pt behalf. Identified Discharge Needs: Referrals sent out for higher level of care Currently Utilized Resources Currently Utilized Resources/P: Primary Care Physician Referrals Community Resources: Referrals for higher level of care Identified Problems/Hx/Goals Objectives/Short-Term Goals Short Term Goals: Dec. Anxiety/Panic, Dec. Hallucination/Delus, Medication Stabilization, Promote Coping Skill Short Term Goals in Patient's: N/A Interventions/Frequency Staff Interventions/Frequency&: Psychiatrist to asses pt at least 3x per week for medication management/monitoring. Social Work to assess pt at least 2x per week to assess discharge planning, care needs and barriers to discharge. Nursing to assess medicatin, behaviors and complete 15 minute checks daily. Encourage group participation (if applicable) or 1:1 engagement based off activity dept assessment. 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 Education: Pt graduated highschool in 1969 Community Follow-up Primary Care follow-up Community Provider/Family Inpu: Per son Patel "based on what I was told, her going home would not be in her best interest". Treatment Plan Explained Patient/State Historical Society Director had this treatment plan explained to him/her as indicated by the signature below and has been given the opportunity to ask questions and make suggestions: Date: Patient/State Historical Society Director Signature: Patient/State Historical Society Director Decline: No (Pt son will now be more active within pt care.) OK BAUTISTA Feb 17, 2020 13:23
--- NOTE | 2020-02-17 13:34 | NUR ---
Patient has been in bed most of this shift. She is on 3L oxygen via NC and is SOB when active and is unable to lay flat. Patient is compliant with medications, she takes them whole with water. She can administer her own inhaler and nasal spray. Patient stated "some of the people are mean to me", however she was unwilling to explain any further. In speaking with staff , the people that she was referring to are the PULLMAN CONDUCTOR's and nurses that made her get out of bed over the weekend. Patient has told this nurse multiple times that she is "ready to leave". Patient had been up in chair after lunch and was assisted to the bathroom using SBA and her walker. At one point she appeared to become unsteady while walking to the bathroom. Patient has a history of "behavioral falls" as witnessed by several staff members on different shifts. Patient stated she had an "upset stomach" and did not want this nurse to wait outside the door (patient has a history of short bowel syndrome). Patient used call light when she was finished toileting and was assisted to bed. Patient worked with OT this morning, but she has not attended any groups this day.
[2020-02-17 15:40] VITALS: BP 86/59
--- NOTE | 2020-02-17 17:50 | NUR ---
Patient is having a hard time keeping O2 sats above 80's. RT consulted and came to unit to evaluate patient. They stated that with a high flow NC she can have up to 6L. Her temperature is 99F, BP 86/[address] Eduardo brian been made aware and will see patient on rounds. Nurse is monitory patients oxygenation level. She was 85% 3 at 1500, then 84% 4L at 1610, currently she is on 5L and O2 89% sat is around 89% and has been at this level since 1620. . Patient had a chest xray 02/13 (see medical record) and completed Levaquin 250mg daily this morning. Patient urine C&S came back on 02/12 and it showed E.Coli >100K. Patient is not on any antibiotics at this time.
--- NOTE | 2020-02-17 20:00 | NUR ---
O2 sat on 5L/NC 91%. IV placed in L wrist in preparation for stat CTA ordered this evening. Pt tolerated placenment well.
[2020-02-17] MEDS: ATORVASTATIN CALCIUM 20 MG TABLET PO SCH (20:50)
[2020-02-17] MEDS: traZODone 100 MG TABLET. PO SCH (20:50)
[2020-02-17] MEDS: QUEtiapine 25 MG TABLET. PO SCH (20:50)
[2020-02-17] MEDS ORDERED: IOHEXOL 350 MG/ML 100 ML VIAL. IV ONE (21:00)
--- NOTE | 2020-02-17 22:00 | PDOC ---
Exam Note: Napoleon Note: Please also refer to the separate dictated note~for this date of service dictated separately.~Patient seen individually. Discussed the patient with Nursing staff reviewed the chart.~Reviewed interim history and current functioning. Reviewed vital signs,~Labs/ Radiology~and current medications noted below. Continue current treatment with the changes noted in the dictated addendum note Assessment: Vital Signs/I&O: Vital Signs Date Time Temp Pulse Resp B/P (MAP) Pulse Ox O2 Delivery O2 Flow Rate FiO2 02/17/20 20:55 98.1 91 02/17/20 16:21 99 High Flow Nasal Cannula 5.0 02/17/20 16:15 17 02/17/20 15:40 86/59 (68) I & O 02/16/20 02/16/20 02/17/20 15:00 23:00 07:00 Intake Total 796 ml 300 ml 240 ml Balance 796 ml 300 ml 240 ml Labs: Laboratory Tests Test 02/17/20 06:21 Sodium Level 141 mmol/L (136-145) Potassium Level 4.2 mmol/L (3.5-5.1) Chloride Level 104 mmol/L (98-107) Carbon Dioxide Level 31 mmol/L (21-32) Anion Gap 6 (6-14) Blood Urea Nitrogen 5 mg/dL (7-20) L Creatinine 0.8 mg/dL (0.6-1.0) Estimated GFR (Cockcroft-Gault) 71.3 Glucose Level 102 mg/dL (70-99) H Calcium Level 8.7 mg/dL (8.5-10.1) Current Medications: I have reviewed the current psychotropics carefully including drug interactions. Risk benefit ratio favors no change other than as noted in my dictated progress note. Diagnosis: Problems: (1) Impulse control disorder, unspecified (2) Anxiety disorder, unspecified (3) Major depressive disorder with psychotic features NITHIN STEVENS MD Feb 17, 2020 22:00
--- NOTE | 2020-02-17 22:38 | NUR ---
Pt back to floor after CTA done. To complete CTA pt was taken to pavilion due to mechanical problem with CT scanner here. She tolerated it all well is in good spirits and very tired and promptly went to sleep.
--- NOTE | 2020-02-17 22:46 | RAD ---
Exam: CT of chest with contrast INDICATION: Worsening shortness of breath and hypoxia TECHNIQUE: Sequential axial images through the chest obtained following the administration of 90 mL of Omni 350 IV contrast. Sagittal and coronal reformatted images were reconstructed from the axial data and reviewed. 3-D reformatted images were reconstructed from the axial data and reviewed. Comparisons: Chest x-ray same day FINDINGS: Visualized portions of the thyroid are unremarkable. No enlarged mediastinal lymph nodes are identified. Heart size is normal. No pericardial effusion. Thoracic aorta has a normal course and caliber. Pulmonary artery is not enlarged. No pulmonary embolus identified within the main, lobar or segmental pulmonary arteries. Airways are patent. Patchy areas of groundglass opacity noted in the lungs bilaterally. No consolidation or pneumothorax. Small bilateral pleural effusions. Visualized upper abdomen is unremarkable. No suspicious osseous lesions or acute fractures. IMPRESSION: 1. No pulmonary embolus identified within the main, lobar or segmental pulmonary arteries. 2. Patchy areas of ground glass opacity in lungs bilaterally. This may be infectious or inflammatory in etiology. Correlate for Covid 19. Exposure: One or more of the following in the visualized dose reduction techniques were utilized for this examination: 1. Automated exposure control 2. Adjustment of the MA and/or KV according to patient size 3. Use of iterative of reconstructive technique Electronically signed by: Frank Lee MD (02/17/2020 10:43 PM) [facility]
--- NOTE | 2020-02-17 23:30 | NUR ---
CTA results called to Dr Clark. Will continue present plan for care.
[2020-02-18 06:29] VITALS: BP 112/71
--- NOTE | 2020-02-18 07:38 | PDOC ---
Exam Note: Napoleon Note: This note is a late entry for 02/17/2020 covers elements not covered in my initial note. Subjective: The patient was reviewed on telehealth rounds in the evening of 02/17/2020 with Zahira BARR. Discussed with nursing staff, reviewed the chart. She slept 7-3/4 hours previous night. She has appeared more sick today. We will defer her to Dr. Clark. Levaquin was stopped. UA is positive. Review of Systems: Some shortness of breath and tiredness. No CV, , eye system symptoms on review. Mental Status Exam: She is very well oriented. Speech is coherent. Ab straction is fair. Computation impaired. Language function intact. Attention span is short. Mood and affect still depressed, anxious. No suicidal or homicidal ideation. Laboratory Data: Reviewed. Impression: Major depressive disorder, rule out bipolar disorder, mixed psychotic features. Anxiety disorder unspecified. Impulse control disorder unspecified. Plan: No change from initial note. Defer medical management to Dr. Clark. Continue rest unchanged. Adjust further as clinically indicated. Assessment: Vital Signs/I&O: Vital Signs Date Time Temp Pulse Resp B/P (MAP) Pulse Ox O2 Delivery O2 Flow Rate FiO2 02/18/20 06:29 98.2 93 20 112/71 (85) 91 High Flow Nasal Cannula 5.0 I & O 02/17/20 02/17/20 02/18/20 15:00 23:00 07:00 Intake Total 2640 ml 240 ml Balance 2640 ml 240 ml Current Medications: Meds: Current Medications Medications (Trade) Dose Ordered Sig/Mya Route PRN Reason Start Time Stop Time Status Last Admin Dose Admin Iohexol (Omnipaque 350 Mg/ml) 100 ml 1X ONCE IV 02/17/20 21:00 02/17/20 21:01 DC 02/17/20 22:27 I have reviewed the current psychotropics carefully including drug interactions. Risk benefit ratio favors no change other than as noted in my dictated progress note. Diagnosis: Problems: (1) Impulse control disorder, unspecified (2) Anxiety disorder, unspecified (3) Major depressive disorder with psychotic features NITHIN STEVENS MD Feb 18, 2020 07:38
[2020-02-18] MEDS: DIPHENOXYLATE/ATROPINE TABLET. PO SCH ×4 (08:21→20:05)
[2020-02-18] MEDS: sulfaSALAzine 500 MG TABLET PO SCH ×3 (08:21→20:05)
[2020-02-18] MEDS: LIPASE/PROTEAS/AMYLAS 10/32/42 CAPSULE.DR. PO SCH ×3 (08:21→17:14)
[2020-02-18] MEDS: LACTOBACILLUS RHAMNOSUS GG 1 CAPSULE. PO SCH ×2 (08:21→20:06)
[2020-02-18] MEDS: GABAPENTIN 300 MG CAPSULE. PO SCH ×4 (08:22→20:06)
[2020-02-18] MEDS: DULoxetine HCL 30 MG CAPSULE.DR PO SCH ×2 (08:22→20:06)
[2020-02-18] MEDS: ASPIRIN ENTERIC COATED 81 MG TABLET.DR. PO SCH (08:22)
[2020-02-18] MEDS: DICYCLOMINE HCL 20 MG TABLET PO SCH ×3 (08:22→20:06)
[2020-02-18] MEDS: MIRABEGRON 25 MG TAB.ER.24H PO SCH (08:23)
[2020-02-18] MEDS: PANTOPRAZOLE 40 MG TABLET. PO SCH (08:23)
[2020-02-18] MEDS: CETIRIZINE HCL 10 MG TABLET PO SCH (08:23)
[2020-02-18] MEDS: IPRATROPIUM/ALBUTEROL 20/100mcg/INH INHALER. INH SCH ×4 (08:23→20:04)
[2020-02-18] MEDS: POTASSIUM CHLORIDE 20 MEQ TABLET.ER. PO SCH ×2 (08:23→14:12)
[2020-02-18] MEDS: FLUTICASONE 50MCG/NASAL SPRAY 16GM BOTTLE. NS SCH (08:23)
[2020-02-18] MEDS: levETIRAcetam 500 MG TABLET PO SCH ×2 (08:23→20:06)
[2020-02-18 15:19] VITALS: BP 106/72
[2020-02-18 15:44] LABS: BASO # 0.1 x10^3/uL (0.0-0.2); BASO % 2 % (0-3); EOS # 0.2 x10^3/uL (0.0-0.7); EOS % 2 % (0-3); HEMATOCRIT 32.3 % (36.0-47.0); HEMOGLOBIN 10.4 g/dL (12.0-15.5); LYMPH # 0.8 x10^3/uL (1.0-4.8); LYMPH % 11 % (24-48); MEAN CORPUSCULAR HEMOGLOBIN 28 pg (25-35); MEAN CORPUSCULAR HGB CONC 32 g/dL (31-37); MEAN CORPUSCULAR VOLUME 88 fL (79-100); MONO # 0.5 x10^3/uL (0.0-1.1); MONO % 7 % (0-9); NEUT # 5.9 x10^3uL (1.8-7.7); NEUT % 78 % (31-73); PLATELET COUNT 522 x10^3/uL (140-400); RED BLOOD COUNT 3.67 x10^6/uL (3.50-5.40); RED CELL DISTRIBUTION WIDTH 22.4 % (11.5-14.5); WHITE BLOOD COUNT 7.6 x10^3/uL (4.0-11.0)
[2020-02-18 15:55] LABS: CALCIUM 8.4 mg/dL (8.5-10.1); CREATININE 0.7 mg/dL (0.6-1.0); GFR 83.2
[2020-02-18 16:01] LABS: ALBUMIN 2.1 g/dL (3.4-5.0); ALBUMIN/GLOBULIN RATIO 0.8 (1.0-1.7); TOTAL BILIRUBIN 0.6 mg/dL (0.2-1.0); TOTAL PROTEIN 4.9 g/dL (6.4-8.2)
--- NOTE | 2020-02-18 17:51 | NUR ---
Patient has been increasingly confused as the shift has progressed. She has been unable to sit upright when taking medications, each time she raises her hand, her torso leans backwards. When up in chair, pillows placed behind her prevented this motion. She has repeatedly removed her oxygen cannula and was playing with the PIV in her left wrist. After dinner, patient was found in her room on the floor. She was assisted to the toilet and then slid off the toilet. Patient has also been de-satting and is now on 5Lpm via MT. Will discuss with MD during rounds, continue to monitor and report to oncoming shift.
[2020-02-18] MEDS: traZODone 100 MG TABLET. PO SCH (20:05)
[2020-02-18] MEDS: ATORVASTATIN CALCIUM 20 MG TABLET PO SCH (20:06)
[2020-02-18] MEDS: QUEtiapine 25 MG TABLET. PO SCH (20:07)
[2020-02-18 20:58] LABS: ANISOCYTOSIS MOD; PLT ESTIMATE ADEQUATE (ADEQUATE)
[2020-02-18 21:00] LABS: MICROCYTOSIS SLIGHT
--- NOTE | 2020-02-18 21:58 | PDOC ---
Exam Note: Napoleon Note: Please also refer to the separate dictated note~for this date of service dictated separately.~Patient seen individually. Discussed the patient with Nursing staff reviewed the chart.~Reviewed interim history and current functioning. Reviewed vital signs,~Labs/ Radiology~and current medications noted below. Continue current treatment with the changes noted in the dictated addendum note Assessment: Vital Signs/I&O: Vital Signs Date Time Temp Pulse Resp B/P (MAP) Pulse Ox O2 Delivery O2 Flow Rate FiO2 02/18/20 15:19 99.6 93 16 106/72 (83) 90 Nasal Cannula 5.0 I & O 02/17/20 02/17/20 02/18/20 15:00 23:00 07:00 Intake Total 2640 ml 240 ml Balance 2640 ml 240 ml Labs: Laboratory Tests Test 02/18/20 15:34 White Blood Count 7.6 x10^3/uL (4.0-11.0) Red Blood Count 3.67 x10^6/uL (3.50-5.40) Hemoglobin 10.4 g/dL (12.0-15.5) L Hematocrit 32.3 % (36.0-47.0) L Mean Corpuscular Volume 88 fL (79-100) Mean Corpuscular Hemoglobin 28 pg (25-35) Mean Corpuscular Hemoglobin Concent 32 g/dL (31-37) Red Cell Distribution Width 22.4 % (11.5-14.5) H Platelet Count 522 x10^3/uL (140-400) H Neutrophils (%) (Auto) 78 % (31-73) H Lymphocytes (%) (Auto) 11 % (24-48) L Monocytes (%) (Auto) 7 % (0-9) Eosinophils (%) (Auto) 2 % (0-3) Basophils (%) (Auto) 2 % (0-3) Neutrophils # (Auto) 5.9 x10^3uL (1.8-7.7) Lymphocytes # (Auto) 0.8 x10^3/uL (1.0-4.8) L Monocytes # (Auto) 0.5 x10^3/uL (0.0-1.1) Eosinophils # (Auto) 0.2 x10^3/uL (0.0-0.7) Basophils # (Auto) 0.1 x10^3/uL (0.0-0.2) Platelet Estimate Adequate (ADEQUATE) Anisocytosis Mod Microcytosis Slight Sodium Level 139 mmol/L (136-145) Potassium Level 4.0 mmol/L (3.5-5.1) Chloride Level 103 mmol/L (98-107) Carbon Dioxide Level 32 mmol/L (21-32) Anion Gap 4 (6-14) L Blood Urea Nitrogen 5 mg/dL (7-20) L Creatinine 0.7 mg/dL (0.6-1.0) Estimated GFR (Cockcroft-Gault) 83.2 BUN/Creatinine Ratio 7 (6-20) Glucose Level 128 mg/dL (70-99) H Lactic Acid Level 1.1 mmol/L (0.4-2.0) Calcium Level 8.4 mg/dL (8.5-10.1) L Total Bilirubin 0.6 mg/dL (0.2-1.0) Aspartate Amino Transferase (AST) 15 U/L (15-37) Alanine Aminotransferase (ALT) 12 U/L (14-59) L Alkaline Phosphatase 83 U/L (46-116) Total Protein 4.9 g/dL (6.4-8.2) L Albumin 2.1 g/dL (3.4-5.0) L Albumin/Globulin Ratio 0.8 (1.0-1.7) L Current Medications: I have reviewed the current psychotropics carefully including drug interactions. Risk benefit ratio favors no change other than as noted in my dictated progress note. Diagnosis: Problems: (1) Impulse control disorder, unspecified (2) Anxiety disorder, unspecified (3) Major depressive disorder with psychotic features NITHIN STEVENS MD Feb 18, 2020 21:58
--- NOTE | 2020-02-18 22:00 | NUR ---
Nasal swab for covid 19 obtained and sent for rapid testing. Well tolerated by pt. Taken to lab by Katharine FLORIAN
[2020-02-19 01:00] VITALS: BP 94/60
--- NOTE | 2020-02-19 01:00 | NUR ---
Pt up to BR walker with minimal assistance full wt bearing but while sitting on toilets leaned fully forward or to side saying she is losing her balance. She is oriented x4 but asking about when her procedure is and thinks she is NPO for it and worried she will be awake for surgery. Reoriented and water taken without difficulty. Lungs are CTA remains on NC at 5L with o2 sat of 91-93%. Walked back to bed and she quickly went back to sleep.
[2020-02-19 05:57] VITALS: BP 110/71
[2020-02-19] MEDS: PANTOPRAZOLE 40 MG TABLET. PO SCH (07:30)
[2020-02-19] MEDS: LIPASE/PROTEAS/AMYLAS 10/32/42 CAPSULE.DR. PO SCH (08:00)
--- NOTE | 2020-02-19 08:44 | NUR ---
This nurse was told in report that patients rapid COVID test was negative. O2 sat 91% on 5L with high flow NC. Vital signs WNL. Patient has vomited her breakfast onto her tray. Morning medications held r/t vomiting.
[2020-02-19 08:50] LABS: CALCIUM 9.4 mg/dL (8.5-10.1); CREATININE 0.8 mg/dL (0.6-1.0); GFR 71.3; POTASSIUM 3.7 mmol/L (3.5-5.1)
[2020-02-19] MEDS: IPRATROPIUM/ALBUTEROL 20/100mcg/INH INHALER. INH SCH (09:00)
[2020-02-19 09:17] VITALS: BP 110/71
[2020-02-19] MEDS: ASPIRIN ENTERIC COATED 81 MG TABLET.DR. PO SCH (11:05)
[2020-02-19] MEDS: FLUTICASONE 50MCG/NASAL SPRAY 16GM BOTTLE. NS SCH (11:05)
[2020-02-19] MEDS: sulfaSALAzine 500 MG TABLET PO SCH (11:05)
[2020-02-19] MEDS: levETIRAcetam 500 MG TABLET PO SCH (11:06)
[2020-02-19] MEDS: LACTOBACILLUS RHAMNOSUS GG 1 CAPSULE. PO SCH (11:06)
[2020-02-19] MEDS: MIRABEGRON 25 MG TAB.ER.24H PO SCH (11:06)
[2020-02-19] MEDS: DICYCLOMINE HCL 20 MG TABLET PO SCH (11:06)
[2020-02-19] MEDS: DIPHENOXYLATE/ATROPINE TABLET. PO SCH (11:06)
[2020-02-19] MEDS: DULoxetine HCL 30 MG CAPSULE.DR PO SCH (11:06)
[2020-02-19] MEDS: GABAPENTIN 300 MG CAPSULE. PO SCH (11:07)
[2020-02-19] MEDS: CETIRIZINE HCL 10 MG TABLET PO SCH (11:07)
--- NOTE | 2020-02-19 11:07 | NUR ---
Spoke with Dr Clark regarding patients morning medications. Received orders from doctor Eduardo to hold her medications.
[2020-02-19] MEDS ORDERED: DILT240C2 PO (11:17)
--- NOTE | 2020-02-19 11:44 | NUR ---
Transition Record was faxed to follow-up provider with the following elements: Reason for admission, procedures, tests, principal diagnosis, pending studies, patient instructions, 03/12 contact information for unit, phone number to obtain pending test results, plan for follow-up care, physician follow-up, advanced directive information, and medication list with dose, duration and instructions. This information was included in the following documents: History and physical, lab results, study results, progress notes, social work planning form, DC instruction form, patient visit summary, and medication reconciliation form. Date & time record faxed: [phone] 02/19/20 Record faxed to: [address] [place] [address] Record discussed with/ report given to: Aurelia
--- NOTE | 2020-02-19 21:56 | PDOC ---
Exam Note: Napoleon Note: Please also refer to the separate dictated note~for this date of service dictated separately.~Patient seen individually. Discussed the patient with Nursing staff reviewed the chart.~Reviewed interim history and current functioning. Reviewed vital signs,~Labs/ Radiology~and current medications noted below. Continue current treatment with the changes noted in the dictated addendum note Assessment: Vital Signs/I&O: Vital Signs Date Time Temp Pulse Resp B/P (MAP) Pulse Ox O2 Delivery O2 Flow Rate FiO2 02/19/20 09:17 86 110/71 02/19/20 05:57 97.8 16 92 Nasal Cannula 5.0 I & O 02/18/20 02/18/20 02/19/20 15:00 23:00 07:00 Intake Total 320 ml 120 ml 300 ml Balance 320 ml 120 ml 300 ml Labs: Laboratory Tests Test 02/19/20 07:55 Sodium Level 139 mmol/L (136-145) Potassium Level 3.7 mmol/L (3.5-5.1) Chloride Level 100 mmol/L (98-107) Carbon Dioxide Level 34 mmol/L (21-32) H Anion Gap 5 (6-14) L Blood Urea Nitrogen 5 mg/dL (7-20) L Creatinine 0.8 mg/dL (0.6-1.0) Estimated GFR (Cockcroft-Gault) 71.3 Glucose Level 103 mg/dL (70-99) H Calcium Level 9.4 mg/dL (8.5-10.1) Current Medications: I have reviewed the current psychotropics carefully including drug interactions. Risk benefit ratio favors no change other than as noted in my dictated progress note. Diagnosis: Problems: (1) Impulse control disorder, unspecified (2) Anxiety disorder, unspecified (3) Major depressive disorder with psychotic features NITHIN STEVENS MD Feb 19, 2020 21:56
--- NOTE | 2020-02-19 22:38 | DS ---
DATE OF DISCHARGE: 02/19/2020 PSYCHIATRIC PROGRESS NOTE This note covers elements not covered in my initial note 02/19/2020. REASON FOR ADMISSION: Please refer to the admission history for details. Briefly, the patient is a 69-year-old female initially referred to us from home by her primary care physician on account of active hallucinations. She was going outside her home at night, dancing naked in the mood night. She was increasingly anxious, wandering, had marked insomnia, tearful with significant self-care deficits. She was living alone at her home. Behaviors were deemed dangerous, unmanageable resulting in this referral. She was initially on the skilled unit. Once her COVID screen was negative, she transitioned to [facility]. SIGNIFICANT FINDINGS AND CLINICAL COURSE: Following admission, the patient was seen daily individually by myself from a psychiatric standpoint, medical followup with Dr. Clark/Dr. Cheng. The patient remains somewhat depressed, withdrawn, at times hyperverbal. She did have a Neurology consult with Dr. Alvarado as she was on Keppra 500 b.i.d. for seizures. Adjustments were made in her psychotropics and from a psychiatric standpoint, she was doing a little better on Cymbalta 30 mg b.i.d., Seroquel 25 mg at bedtime and she remained on trazodone 100 mg at bedtime for insomnia, gabapentin 300 mg 4 times a day. At this stage, the patient appeared to get septic and chest x-ray showed ground glass appearance. Repeat COVID screens were negative, but she was transitioned off our unit on 02/19/[address] Clark. Prior to discharge, she complained of some shortness of breath, was on 5 liters oxygen with low 90 sats. REVIEW OF SYSTEMS: No CV, GI, , eye system symptoms on review. MENTAL STATUS EXAM: The patient is reasonably oriented. Speech coherent, has some latency. Abstraction fair, computation impaired, language function intact. Mood and affect withdrawn. No suicidal or homicidal ideation. FINAL DIAGNOSES: Major depressive disorder, recurrent with psychotic features, in partial remission, rule out bipolar disorder, mixed with psychotic features, sepsis, possible COVID-19 infection. Rest unchanged from admission. DISCHARGE MEDICATIONS: Please refer to the MRAD. DISCHARGE INSTRUCTIONS: Psychiatric and medical followup on the medical/surgical floor. Time for discharge day management greater than 30 minutes. MAN Florseita STEVENS MD DR: Hank JOB#: [id number] / [id number]
--- NOTE | 2020-02-20 06:49 | PDOC ---
Exam Note: Napoleon Note: This note is a late entry for 02/18/2020 covers elements not covered in my initial note. Subjective: The patient was reviewed on telehealth rounds in the evening of 02/18/2020 with Hadley BARR. Discussed with nursing staff, reviewed the chart. She slept 6 [address] Her CT chest shows some ground-glass appearance. COVID screen has been negative. X-ray also shows atelectasis and some pleural effusion. Review of Systems: Some shortness of breath on 5L oxygen and O2 saturations in the low 90s. No CV, , eye system symptoms on review. She appeared somewhat tired on telehealth rounds. Mental Status Exam: Reasonably oriented. Speech is coherent. Abstraction is fair. Computation impaired. Mood and affect still somewhat withdrawn, anxious, at times labile. No suicidal or homicidal ideation. Laboratory Data: Reviewed. Impression: Major depressive disorder, rule out bipolar disorder, mixed psychotic features. Anxiety disorder unspecified. Impulse control disorder unspecified. Plan: We will defer medical management to Dr. Clark. Continue rest psychotropics. Assessment: Vital Signs/I&O: Vital Signs Date Time Temp Pulse Resp B/P (MAP) Pulse Ox O2 Delivery O2 Flow Rate FiO2 02/19/20 09:17 86 110/71 02/19/20 05:57 97.8 16 92 Nasal Cannula 5.0 I & O 02/19/20 02/19/20 02/20/20 15:00 23:00 07:00 Intake Total 120 ml Balance 120 ml Labs: Laboratory Tests Test 02/19/20 07:55 Sodium Level 139 mmol/L (136-145) Potassium Level 3.7 mmol/L (3.5-5.1) Chloride Level 100 mmol/L (98-107) Carbon Dioxide Level 34 mmol/L (21-32) H Anion Gap 5 (6-14) L Blood Urea Nitrogen 5 mg/dL (7-20) L Creatinine 0.8 mg/dL (0.6-1.0) Estimated GFR (Cockcroft-Gault) 71.3 Glucose Level 103 mg/dL (70-99) H Calcium Level 9.4 mg/dL (8.5-10.1) Current Medications: I have reviewed the current psychotropics carefully including drug interactions. Risk benefit ratio favors no change other than as noted in my dictated progress note. Diagnosis: Problems: (1) Impulse control disorder, unspecified (2) Anxiety disorder, unspecified (3) Major depressive disorder with psychotic features NITHIN STEVENS MD Feb 20, 2020 06:49
== END 2020-02-19 11:48 | disposition short-term general hospital (02) | DRG 885 ==
LOC: GEROPSY 14:02
PROVIDERS: ADMIT Psychiatry & Neurology Psychiatry; ATTEND Psychiatry & Neurology Psychiatry
DX: F33.3 Major depressive disorder, recurrent, severe with psychotic symptoms (principal); A41.9 Sepsis, unspecified organism; N39.0 Urinary tract infection, site not specified; J98.11 Atelectasis; J90 Pleural effusion, not elsewhere classified; K91.2 Postsurgical malabsorption, not elsewhere classified; F41.9 Anxiety disorder, unspecified; Z79.899 Other long term (current) drug therapy; Z20.828 Contact with and (suspected) exposure to other viral communicable diseases; Z91.83 Wandering in diseases classified elsewhere; G47.00 Insomnia, unspecified; F63.9 Impulse disorder, unspecified; Z88.8 Allergy status to other drugs, medicaments and biological substances; E86.0 Dehydration; J44.9 Chronic obstructive pulmonary disease, unspecified; M79.7 Fibromyalgia; K21.9 Gastro-esophageal reflux disease without esophagitis; M19.90 Unspecified osteoarthritis, unspecified site
CPT/HCPCS: 36415; 71045; 71275; 80048; 80053; 83605; 85025; 87426; Q9967; 97110; 97116; 97530; 97535; U0003-CS

== ENCOUNTER 2020-02-19 11:50 | Inpatient (IN) | payer MEDICARE, OTHER ==
[~2020-02-19] VITALS: Ht 152.4 cm; Wt 57.6 kg
[~2020-02-19 11:50] MED LIST changes: +ACET325T9 PO; +CLON1TAB PO; +DILT240C2 PO; +IPRA4AER INH; +LACT1CAP21 PO; +LEVO500T8 PO; +MAG355OR12 PO; +MAGN24003 PO; +METH57CR17 TP; +QUET25TA5 PO
[2020-02-19 12:39] VITALS: BP 121/70
[2020-02-19 14:05] VITALS: BP 117/69
[2020-02-19] MEDS ORDERED: MAG HYDROX/AL HYDROX/SIMETH 30 ML ORAL.SUSP PO PRN (15:15)
[2020-02-19] MEDS ORDERED: ONDANSETRON PF 4 MG/2 ML VIAL. IVP PRN (15:15)
[2020-02-19] MEDS ORDERED: ALBUTEROL SULFATE 2.5 MG/3 ML NEBU. IH PRN (15:15)
[2020-02-19] MEDS ORDERED: MAGNESIUM HYDROXIDE 2,400 MG/30 ML ORAL.SUSP. PO PRN (15:30)
[2020-02-19 15:43] LABS: HEMATOCRIT 35.1 % (36.0-47.0); HEMOGLOBIN 11.2 g/dL (12.0-15.5); RED BLOOD COUNT 3.96 x10^6/uL (3.50-5.40); RED CELL DISTRIBUTION WIDTH 22.2 % (11.5-14.5); WHITE BLOOD COUNT 8.2 x10^3/uL (4.0-11.0)
[2020-02-19] MEDS ORDERED: ALBUTEROL SULFATE 8GM INHALER. INH PRN (15:45)
[2020-02-19 15:54] LABS: CALCIUM 8.5 mg/dL (8.5-10.1); CREATININE 0.9 mg/dL (0.6-1.0); GFR 62.3; POTASSIUM 3.7 mmol/L (3.5-5.1)
[2020-02-19 16:00] LABS: ALBUMIN 2.2 g/dL (3.4-5.0); ALBUMIN/GLOBULIN RATIO 0.7 (1.0-1.7); C REACTIVE PROTEIN 11.4 mg/L (0-3.3); TOTAL BILIRUBIN 0.6 mg/dL (0.2-1.0); TOTAL PROTEIN 5.2 g/dL (6.4-8.2)
[2020-02-19] MEDS: PIPERACILLIN/TAZOBACTAM 3.375 GM in IV NORMAL SALINE 50ML 50 ML IV SCH (16:00)
--- NOTE | 2020-02-19 16:09 | HP ---
ADMIT DATE: 02/19/2020 HISTORY OF PRESENT ILLNESS: The patient is a 69-year-old female patient, who was transferred from [facility] where she was originally admitted after she returned COVID negative. She apparently was admitted. She apparently has been putting herself on the floor, anxious, restless, appears more confused at times; however, she has no active suicidal or homicidal ideation. She reportedly lives at home, has been actively hallucinating. She has been going outside at night, dancing under the [place] light. She has been anxious, wondering, has markedly insomnia, tearful. She is having significant self-care deficits. Behaviors are deemed dangerous, unmanageable functioning level, is a potential danger to herself, and therefore, she was admitted for inpatient psychiatric stabilization. I was contacted to see her and basically she was noted to be hypoxic and her oxygen requirement has steadily increased, and therefore, I looked at all her labs and her x-rays and I was concerned that she might have pulmonary embolism, and therefore, I ordered CT angio of the chest, which basically showed that the conclusion is that she has no pulmonary emboli identified within the main lobar or segmental pulmonary arteries; however, she has patchy areas of ground glass opacities in the lungs bilaterally, this may be infectious, inflammatory in etiology, and correlate for COVID-19. Unfortunately, it took us about more than 24 hours for me to see the report and therefore, a decision was made to transfer her to [facility] to put her on droplet precaution and to start her on steroids and other treatment. She apparently has been having recurrent bouts of nausea, vomiting and has vomited multiple times and was unable to keep anything by mouth. She also complained of abdominal pain, it is mostly in the epigastric area. PAST MEDICAL HISTORY: Significant for polycythemia, thrombocytopenia, anxiety, COPD, back pain, degenerative joint disease, degenerative disk disease, short bowel syndrome, fibromyalgia, gastroesophageal reflux disease, seizures, insomnia, osteoarthritis and panic attack. PAST SURGICAL HISTORY: Significant for cholecystectomy, appendectomy, and partial colectomy according to her. ALLERGIES: She is allergic to CODEINE, CEFOXITIN, GLUTEN, LACTOSE AND STADOL. FAMILY HISTORY: Noncontributory. SOCIAL HISTORY: She was living at home. 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 She does not smoke, drink alcohol or use any recreational drugs. MEDICATIONS: She is currently on following medications: She is on cetirizine 10 mg once a day, sulfasalazine 500 mg 3 times a day, dicyclomine 20 mg 3 times a day. She is on ipratropium bromide, albuterol sulfate 1 puff 4 times a day, albuterol sulfate 1 puff every 4 hours, atorvastatin calcium 20 mg at bedtime, diltiazem 120 mg 3 times a day, aspirin 81 mg once a day. She is on Bengay cream applied topically 4 times a day, gabapentin 300 mg 4 times a day, levetiracetam 500 mg twice a day, duloxetine 30 mg twice a day, trazodone 100 mg at bedtime and she is on quetiapine fumarate 25 mg at bedtime, fluticasone propionate for Flonase 2 sprays to each nostril once a day. She is on Maalox 15 mL after meals and as needed. Diphenoxylate/atropine for Lomotil two tablets 4 times a day, magnesium hydroxide for milk of magnesia 30 mL p.o. daily p.r.n. for constipation. She is on a Pertzye 24,000 unit capsule 3 times a day with food, Protonix 40 mg daily, lactobacillus rhamnosus 1 capsule p.o. twice a day and Myrbetriq 50 mg daily. PHYSICAL EXAMINATION: GENERAL: When I examined her this afternoon, she was resting slightly propped up in bed, in no apparent respiratory distress. She was somewhat pale, no jaundiced, cyanosis or thyromegaly. No jugular venous distention. She has mild bilateral lower limb edema. VITAL SIGNS: Her heart rate was 106, blood pressure 117/69, temperature was 98.5, respiratory rate 20, and oxygen saturation was 90% on 5 liters of oxygen. HEAD, EYES, EARS, NOSE AND THROAT: Showed normocephalic, atraumatic. NECK: Supple. HEART: Showed normal first and second heart sounds. No gallop or murmur. CHEST: Shows central trachea, equal bilateral chest expansion, air entry. She has bilateral basal crepitation. I could not appreciate any rhonchi. ABDOMEN: Distended. Tenderness mostly in the epigastric area. There is no guarding or rigidity. No organomegaly. All hernial orifices are intact. Bowel sounds normal. NEUROLOGIC: She is awake, alert, responding appropriately. All cranial nerves intact. EXTREMITIES: She moves extremities without difficulty. LABORATORY DATA: As of yesterday showed a white cell count 7600, hemoglobin 10, hematocrit 32, MCV 88 and platelet count of 522,000 with normal manual differential. Her serum sodium was 139, potassium 3.7, chloride 100, bicarbonate 34, anion gap of 5, BUN 5, creatinine 0.8, estimated GFR was 71 mL per minute, her glucose 103, her calcium was 9.4. Her total protein was 4.9, albumin was 2.1, globulin was __. Her urinalysis was unremarkable and her treponema pallidum antibodies were nonreactive. Her coronavirus by PCR not detected on 02/15/2020. ASSESSMENT AND PLAN: Acute on chronic hypoxic respiratory failure, questionable viral atypical pneumonia. Other medical problems include thrombocytopenia, polycythemia, COPD, degenerative disk disease, degenerative joint disease. She has Crohn's disease. The patient is known to have seizures, osteoarthritis, gastroesophageal reflux disease and fibromyalgia. My plan is to start her on IV line, IV fluid and we will repeat all her lab work and particularly start her on IV Keppra as she is having recurrent bouts of nausea, vomiting. I will check her serum lipase and we might have to check and do a CT scan of the abdomen and pelvis to elucidate this abnormality further. RODRIGUEZ LOWE MD DR: TOMI/caden JOB#: [id number] / [id number]
--- NOTE | 2020-02-19 16:16 | NUR ---
PATIENT IS 69 Y O FEMALE, ADMITTED FROM [facility], PT ARRIVED VIA W/C ACCOMPANIED BY STAFF , PATIENT IS TRANSFERRED WITH ASSIST X 1. PATIENT IS A/O X 3, FORGETFUL, C/O NAUSEA AND ABDOMINAL PAIN, PATIENT STATED IT IS NOT NEW SYMPTOMS AND POSSIBLY RELATED TO HER CHRON'S DISEASE , PATIENT STATED SHE HAS TO USE A RESTROOM OFTEN D/T HER DIARRHEA. PATIENT C/O BEING WEAK. MD NOTIFIED ORDERS OBTAINED, PATIENT ORIENTED TO THE ROOM AND HOSPITAL POLICIES, BELONGINGS INVENTORIED. WILL CONTINUE TO MONITOR.
[2020-02-19 17:00] VITALS: BP 107/64
[2020-02-19] MEDS: METHYL SALICYLATE/MENTHOL TOPICAL OINTMENT 57GM TUBE. TP SCH ×2 (17:00→21:00)
[2020-02-19] MEDS ORDERED: VANCOMYCIN 1.5 GM in IV NORMAL SALINE 500ML 500 ML IV ONE (17:00)
[2020-02-19] MEDS: LIPASE/PROTEAS/AMYLAS 10/32/42 CAPSULE.DR. PO SCH (17:19)
[2020-02-19] MEDS: GABAPENTIN 300 MG CAPSULE. PO SCH ×2 (17:19→21:46)
[2020-02-19] MEDS: DIPHENOXYLATE/ATROPINE TABLET. PO SCH ×2 (17:20→21:53)
[2020-02-19] MEDS: IPRATROPIUM/ALBUTEROL 20/100mcg/INH INHALER. INH SCH ×2 (20:00→21:53)
[2020-02-19] MEDS: VANCOMYCIN PER PHARMACY MC PRN (20:08)
--- NOTE | 2020-02-19 20:10 | NUR ---
Pharmacy Vancomycin Dosing Note S:Consulted to monitor and dose vancomycin started 02/19/20. O:SHY MCGHEE is a 69 year old F with Sepsis, . Height: 5 feet, 0 inches Weight: 57.3 kg [place] Body Weight: 183.50 Adjusted Body Weight: 133.02 Dosing Weight: Actual Other Antibiotics: ZOSYN 3.375GM IV Q8H LABS: Last BUN: 5 Last Creatinine: 0.8 Creatinine Clearance: 42.69 Last WBC: 7.6 Vancomycin Dosing: Loading Dose: 1500 mg x1 Dosing Weight: Actual Target Trough: 15-20 A: Based on: Actual weight, renal function, and indication P: 1. Begin Vancomycin 1000 mg IV q24h 2. Follow up Trough level on 02/21/20 at 1730 3. Pharmacy will continue to monitor, follow and adjust therapy as needed. PATEL COTTRELL, 02/19/202009
[2020-02-19] MEDS: methylPREDNISolone SOD SUCC PF 40 MG/ML VIAL. IV SCH (21:46)
[2020-02-19] MEDS: sulfaSALAzine 500 MG TABLET PO SCH (21:46)
[2020-02-19] MEDS: QUEtiapine 25 MG TABLET. PO SCH (21:46)
[2020-02-19] MEDS: traZODone 100 MG TABLET. PO SCH (21:47)
[2020-02-19] MEDS: levETIRAcetam 500 MG TABLET PO SCH (21:47)
[2020-02-19] MEDS: ATORVASTATIN CALCIUM 20 MG TABLET PO SCH (21:47)
[2020-02-19] MEDS: DICYCLOMINE HCL 20 MG TABLET PO SCH (21:47)
[2020-02-19] MEDS: DULoxetine HCL 30 MG CAPSULE.DR PO SCH (21:47)
[2020-02-19] MEDS: LACTOBACILLUS RHAMNOSUS GG 1 CAPSULE. PO SCH (21:47)
[2020-02-19 22:51] VITALS: BP 124/74
[2020-02-20] MEDS: PIPERACILLIN/TAZOBACTAM 3.375 GM in IV NORMAL SALINE 50ML 50 ML IV SCH ×4 (00:26→23:56)
--- NOTE | 2020-02-20 02:09 | NUR ---
Pt pleasantly confused; slightly impulsive, requires bed alarm for safety. Pt has nonproductive cough, is requiring O2 at 5L high flow NC. Pt is COVID PUI and due to be re-swabbed this AM. Contact and airborne isolation in place per protocol. IV abx given per orders. Pt resting comfortably in bed at this time.
[2020-02-20 06:43] VITALS: BP 96/58
[2020-02-20] MEDS: IPRATROPIUM/ALBUTEROL 20/100mcg/INH INHALER. INH SCH ×4 (08:00→21:29)
[2020-02-20] MEDS: METHYL SALICYLATE/MENTHOL TOPICAL OINTMENT 57GM TUBE. TP SCH ×4 (09:00→21:00)
[2020-02-20] MEDS: LACTOBACILLUS RHAMNOSUS GG 1 CAPSULE. PO SCH ×2 (10:07→21:29)
[2020-02-20] MEDS: LIPASE/PROTEAS/AMYLAS 10/32/42 CAPSULE.DR. PO SCH ×3 (10:08→16:47)
[2020-02-20] MEDS: DULoxetine HCL 30 MG CAPSULE.DR PO SCH ×2 (10:08→21:29)
[2020-02-20] MEDS: PANTOPRAZOLE 40 MG TABLET. PO SCH (10:08)
[2020-02-20] MEDS: ASPIRIN ENTERIC COATED 81 MG TABLET.DR. PO SCH (10:08)
[2020-02-20] MEDS: levETIRAcetam 500 MG TABLET PO SCH ×2 (10:08→21:29)
[2020-02-20] MEDS: GABAPENTIN 300 MG CAPSULE. PO SCH ×4 (10:08→21:29)
[2020-02-20] MEDS: CETIRIZINE HCL 10 MG TABLET PO SCH (10:08)
[2020-02-20] MEDS: DICYCLOMINE HCL 20 MG TABLET PO SCH ×3 (10:08→21:29)
[2020-02-20] MEDS: sulfaSALAzine 500 MG TABLET PO SCH ×3 (10:09→21:29)
[2020-02-20] MEDS: MIRABEGRON 25 MG TAB.ER.24H PO SCH (10:09)
[2020-02-20] MEDS: FLUTICASONE 50MCG/NASAL SPRAY 16GM BOTTLE. NS SCH (10:10)
[2020-02-20] MEDS: methylPREDNISolone SOD SUCC PF 40 MG/ML VIAL. IV SCH ×2 (10:10→20:55)
[2020-02-20] MEDS: DIPHENOXYLATE/ATROPINE TABLET. PO SCH ×4 (10:52→21:29)
[2020-02-20 10:57] VITALS: BP 99/55
[2020-02-20 14:33] VITALS: BP 101/66
[2020-02-20] MEDS: VANCOMYCIN 1 GM in IV NORMAL SALINE 250ML 250 ML IV SCH ×2 (18:00→21:42)
[2020-02-20 19:46] VITALS: BP 113/63
--- NOTE | 2020-02-20 20:19 | PN ---
DATE: 02/20/2020 SUBJECTIVE: The patient is a 69-year-old female patient who was transferred yesterday from [facility] on account of worsening hypoxemia and stqjs-ns-hedyruj hypoxic respiratory failure. She has also bilateral lung infiltrate. CT angio of the chest showed no evidence of pulmonary emboli within the main lobar or segmental pulmonary arteries; however, she has patchy areas of ground glass opacities in lungs bilaterally, this may be infectious, inflammatory etiology, to correlate with COVID-19. Therefore, she was transferred down and was started on IV antibiotic for possible healthcare-associated pneumonia together with steroids. PHYSICAL EXAMINATION: GENERAL: When I saw her this afternoon, she was sitting at the edge of the bed comfortably, in no apparent respiratory distress. She was somewhat pale, but no jaundice, cyanosis or thyromegaly. No jugular venous distention. No lower limb edema. VITAL SIGNS: Her heart rate was 104, blood pressure was 101/66, temperature was 99.1, respiratory rate was 20, and oxygen saturation was 90% on 5 liters of oxygen. HEAD, EYES, EARS, NOSE AND THROAT: Normocephalic, atraumatic. NECK: Supple. HEART: Showed normal first and second heart sounds. No gallop or murmur. CHEST: Showed central trachea, equally reduced expansion, reduced air entry, vesicular sounds with bilateral basal crepitation posteriorly. I could not appreciate any rhonchi. ABDOMEN: Slightly distended, soft, nontender. NEUROLOGIC: She is awake, alert, responding appropriately. All her cranial nerves are intact. She moves extremities without difficulty. She ambulates without assistance or assistive device. Her intake and output were incompletely recorded. LABORATORY DATA: Has no lab work done this morning. ASSESSMENT: 1. Possible COVID-19 pneumonia. 2. Fydjn-yj-lotbkie hypoxic respiratory failure. 3. Chronic obstructive pulmonary disease. 4. Degenerative disk disease. 5. Degenerative joint disease. 6. Crohn's disease. 7. Seizure disorder. 8. Gastroesophageal reflux disease. PLAN: My plan is to obviously continue with IV antibiotic. Continue with steroids. The patient was swabbed for coronavirus and her rapid test was negative on 02/17; however, the PCR was still pending at the time of this dictation. RODRIGUEZ LOWE MD DR: TOMI/caden JOB#: [id number] / [id number]
--- NOTE | 2020-02-20 20:56 | NUR ---
PT LOST IV ACCESS ON PREVIOUS SHIFT. MULTIPLE ATTEMPTS HAVE BEEN MADE TO REESTABLISH, WITHOUT SUCCESS. DR LOWE NOTIFIED, WILL ATTEMPT IN THE AM. AMANDA, DIEGO, AND SOLU-MEDMCKENZIE HELD IN THE MEANTIME.
[2020-02-20] MEDS: QUEtiapine 25 MG TABLET. PO SCH (21:29)
[2020-02-20] MEDS: ATORVASTATIN CALCIUM 20 MG TABLET PO SCH (21:29)
[2020-02-20] MEDS: traZODone 100 MG TABLET. PO SCH (21:30)
--- NOTE | 2020-02-20 21:48 | NUR ---
IV ACCESS OBTAINED BY DOLORES, NURSING SUPFlorence PATEL NOW INFUSING PER ORDER.
[2020-02-20 22:57] VITALS: BP 110/57
--- NOTE | 2020-02-21 05:08 | NUR ---
Pt IV still functional, subsequent IV abx able to infuse. Pt slept well through night with no c/o pain
[2020-02-21 05:18] VITALS: BP 119/67
[2020-02-21] MEDS: PIPERACILLIN/TAZOBACTAM 3.375 GM in IV NORMAL SALINE 50ML 50 ML IV SCH ×3 (08:21→23:45)
[2020-02-21] MEDS: sulfaSALAzine 500 MG TABLET PO SCH ×3 (08:21→21:32)
[2020-02-21] MEDS: IPRATROPIUM/ALBUTEROL 20/100mcg/INH INHALER. INH SCH ×4 (08:21→20:00)
[2020-02-21] MEDS: LIPASE/PROTEAS/AMYLAS 10/32/42 CAPSULE.DR. PO SCH ×3 (08:22→16:40)
[2020-02-21] MEDS: DULoxetine HCL 30 MG CAPSULE.DR PO SCH ×2 (08:22→21:32)
[2020-02-21] MEDS: DIPHENOXYLATE/ATROPINE TABLET. PO SCH ×4 (08:22→21:32)
[2020-02-21] MEDS: methylPREDNISolone SOD SUCC PF 40 MG/ML VIAL. IV SCH ×2 (08:22→21:33)
[2020-02-21] MEDS: ASPIRIN ENTERIC COATED 81 MG TABLET.DR. PO SCH (08:22)
[2020-02-21] MEDS: PANTOPRAZOLE 40 MG TABLET. PO SCH (08:22)
[2020-02-21] MEDS: LACTOBACILLUS RHAMNOSUS GG 1 CAPSULE. PO SCH ×2 (08:22→21:32)
[2020-02-21] MEDS: GABAPENTIN 300 MG CAPSULE. PO SCH ×4 (08:22→21:32)
[2020-02-21] MEDS: MIRABEGRON 25 MG TAB.ER.24H PO SCH (08:23)
[2020-02-21] MEDS: levETIRAcetam 500 MG TABLET PO SCH ×2 (08:23→21:32)
[2020-02-21] MEDS: CETIRIZINE HCL 10 MG TABLET PO SCH (08:23)
[2020-02-21] MEDS: DICYCLOMINE HCL 20 MG TABLET PO SCH ×3 (08:23→21:32)
[2020-02-21] MEDS: FLUTICASONE 50MCG/NASAL SPRAY 16GM BOTTLE. NS SCH (08:24)
[2020-02-21] MEDS: METHYL SALICYLATE/MENTHOL TOPICAL OINTMENT 57GM TUBE. TP SCH ×4 (08:24→21:00)
[2020-02-21 08:31] LABS: RED BLOOD COUNT 4.34 x10^6/uL (3.50-5.40); RED CELL DISTRIBUTION WIDTH 21.9 % (11.5-14.5)
[2020-02-21 08:44] LABS: ALBUMIN 2.3 g/dL (3.4-5.0); ALBUMIN/GLOBULIN RATIO 0.7 (1.0-1.7); CALCIUM 8.6 mg/dL (8.5-10.1); CREATININE 0.9 mg/dL (0.6-1.0); GFR 62.3; POTASSIUM 3.4 mmol/L (3.5-5.1); TOTAL BILIRUBIN 0.4 mg/dL (0.2-1.0); TOTAL PROTEIN 5.5 g/dL (6.4-8.2)
[2020-02-21] MEDS ORDERED: FLU VACC QS 2020-21(6MOS+)/PF 0.5 ML SYRINGE. VAX IM ONE (09:00)
[2020-02-21 10:53] VITALS: BP 119/48
[2020-02-21 15:09] VITALS: BP 110/58
--- NOTE | 2020-02-21 18:51 | PN ---
DATE: 02/21/2020 SUBJECTIVE: The patient is resting flat, sleeping comfortably, in no apparent distress. On questioning her, she denied any chest pain or shortness of breath. She does complain of cough that is mostly dry. Denied any chills, rigors or fevers. Nursing staff did not voice any concern. OBJECTIVE: GENERAL: When I examined her, she looked well and was clearly in no apparent respiratory distress. No pallor, jaundice, cyanosis or thyromegaly. No jugular venous distention. No limb edema. VITAL SIGNS: Her heart rate was 95, blood pressure was 119/48, temperature 97.3, respiratory rate was 20, and oxygen saturation was 93% on 5 liters oxygen by nasal cannula. HEAD, EYES, EARS, NOSE AND THROAT: Showed normocephalic, atraumatic. NECK: Supple. CARDIAC: Normal first and second heart sounds. No gallop, rub or murmur. CHEST: Clear to auscultation. No crepitation or rhonchi. ABDOMEN: Distended, soft, nontender. No guarding or rigidity. No organomegaly. All hernial orifice intact. Bowel sounds normal. NEUROLOGIC: She is awake, alert, responding appropriately. All cranial nerves are intact. She moves extremities without difficulty. Her intake and output are incompletely recorded. LABORATORY DATA: Her lab work this morning showed a white cell count of 11,300, hemoglobin 12, hematocrit 40, MCV 92, and platelet count 554,000. Her chemistry showed a serum sodium of 145, potassium 3.4, chloride 108, bicarbonate 30, anion gap of 7, BUN 6, creatinine 0.9, estimated GFR was 62 mL per minute, glucose 112, calcium was 8.6. Total bilirubin, AST, ALT, alkaline phosphatase were normal. Total protein 5.5, albumin was 2.3. Her D-dimer was 1. ASSESSMENT: 1. Possible COVID-19 pneumonia. 2. Acute on chronic hypoxic respiratory failure. 3. Chronic obstructive pulmonary disease. 4. Degenerative disk disease. 5. Degenerative joint disease. 6. Crohn disease. 7. Seizure disorder. 8. Gastroesophageal reflux disease. PLAN: My plan is to continue with IV antibiotic. Continue with steroids. The patient was swabbed for her coronavirus and her rapid test was negative on 02/18/2020. However, her PCR is still pending at the time of this dictation. RODRIGUEZ LOWE MD DR: Bill JOB#: [id number] / [id number]
[2020-02-21 19:36] VITALS: BP 117/62
[2020-02-21] MEDS: traZODone 100 MG TABLET. PO SCH (21:32)
[2020-02-21] MEDS: VANCOMYCIN 1 GM in IV NORMAL SALINE 250ML 250 ML IV SCH ×2 (21:32→22:30)
[2020-02-21] MEDS: QUEtiapine 25 MG TABLET. PO SCH (21:32)
[2020-02-21] MEDS: ATORVASTATIN CALCIUM 20 MG TABLET PO SCH (21:32)
--- NOTE | 2020-02-21 22:18 | NUR ---
PT opened door and yelled out, "I need some help up, I fell". This nurse and SAND CASTER went into room, lightly touched her hands and PT noted to stand on own. PT then said, "I'm fine now, you can go". We stayed and placed PT back in bed. PT assessed and noted no signs of a fall or injury. Bed alarm placed.
[2020-02-21 22:22] LABS: VANC TR 10.1 mcg/mL (10.0-20.0)
[2020-02-21 22:35] VITALS: BP 123/69
[2020-02-22] MEDS: VANCOMYCIN PER PHARMACY MC PRN (01:25)
--- NOTE | 2020-02-22 01:26 | NUR ---
Pharmacy Vancomycin Dosing Note S:Consulted to monitor and dose vancomycin started 02/19/20. O:SHY MCGHEE is a 69 year old F with Sepsis, . Height: 5 feet, 0 inches Weight: 57.0 kg [place] Body Weight: 183.50 Adjusted Body Weight: 132.90 Dosing Weight: Actual Other Antibiotics: ZOSYN 3.375GM IV Q8H LABS: Last BUN: 5 Last Creatinine: 0.8 Creatinine Clearance: 42.69 Last WBC: 7.6 Last Procalcitonin: Tmax (past 24 hours): Microbiology: I/O: Drug Levels: Last Trough level: 10.1 on 02/21/20 at 2030 Last dose given at Vancomycin Dosing: Loading Dose: 1500 mg x1 Dosing Weight: Actual Target Trough: 15-20 A: Based on: TROUGH AND GOAL P: 1. Begin Vancomycin 1000 mg IV q18h 2. Follow up Trough level on 02/23/20 at 0930 3. Pharmacy will continue to monitor, follow and adjust therapy as needed. JEANNE FUNK RPH, 02/22/20 0126 Signed: 02/22/20 at 0126 by JEANNE FUNK RPH PHA
[2020-02-22 05:31] VITALS: BP 134/73
[2020-02-22] MEDS: PIPERACILLIN/TAZOBACTAM 3.375 GM in IV NORMAL SALINE 50ML 50 ML IV SCH (08:00)
[2020-02-22] MEDS: IPRATROPIUM/ALBUTEROL 20/100mcg/INH INHALER. INH SCH ×4 (08:03→19:58)
[2020-02-22] MEDS: LACTOBACILLUS RHAMNOSUS GG 1 CAPSULE. PO SCH ×2 (08:03→19:57)
[2020-02-22] MEDS: DICYCLOMINE HCL 20 MG TABLET PO SCH ×3 (08:04→19:58)
[2020-02-22] MEDS: levETIRAcetam 500 MG TABLET PO SCH ×2 (08:04→19:57)
[2020-02-22] MEDS: DIPHENOXYLATE/ATROPINE TABLET. PO SCH ×4 (08:04→19:57)
[2020-02-22] MEDS: LIPASE/PROTEAS/AMYLAS 10/32/42 CAPSULE.DR. PO SCH ×3 (08:04→17:24)
[2020-02-22] MEDS: ASPIRIN ENTERIC COATED 81 MG TABLET.DR. PO SCH (08:04)
[2020-02-22] MEDS: CETIRIZINE HCL 10 MG TABLET PO SCH (08:04)
[2020-02-22] MEDS: PANTOPRAZOLE 40 MG TABLET. PO SCH (08:04)
[2020-02-22] MEDS: GABAPENTIN 300 MG CAPSULE. PO SCH ×4 (08:05→19:57)
[2020-02-22] MEDS: DULoxetine HCL 30 MG CAPSULE.DR PO SCH ×2 (08:05→19:57)
[2020-02-22] MEDS: METHYL SALICYLATE/MENTHOL TOPICAL OINTMENT 57GM TUBE. TP SCH ×4 (09:00→19:58)
[2020-02-22] MEDS: methylPREDNISolone SOD SUCC PF 40 MG/ML VIAL. IV SCH (09:00)
[2020-02-22] MEDS: MIRABEGRON 25 MG TAB.ER.24H PO SCH (09:13)
[2020-02-22] MEDS: FLUTICASONE 50MCG/NASAL SPRAY 16GM BOTTLE. NS SCH (09:13)
[2020-02-22] MEDS: sulfaSALAzine 500 MG TABLET PO SCH ×3 (09:13→19:57)
--- NOTE | 2020-02-22 10:38 | NUR ---
NURSING NOTE: IV PT REMOVED IV THIS AM. IV PLACED BY CORTNEY ARMSTRONG WITH SONOGRAM. IV INFILTRATED. IV REMOVED. WILL CONTINUE TO MONITOR. CORTNEY SOTO
[2020-02-22 10:54] LABS: VANC TR 14.3 mcg/mL (10.0-20.0)
[2020-02-22 10:57] LABS: WHITE BLOOD COUNT 11.3 x10^3/uL (4.0-11.0)
[2020-02-22 11:25] VITALS: BP 115/58
[2020-02-22 15:25] VITALS: BP 123/62
[2020-02-22] MEDS ORDERED: VANCOMYCIN 1 GM in IV NORMAL SALINE 250ML 250 ML IV SCH (16:00)
--- NOTE | 2020-02-22 17:49 | PN ---
DATE: 02/22/2020 SUBJECTIVE: The patient is resting flat comfortably in bed, in no apparent distress. She is awake, alert. Denied any complaint, would like to go home. She apparently lives in a low-income apartment in [place], [place]. Her coronavirus by PCR was not detected. PHYSICAL EXAMINATION: GENERAL: When I examined her this afternoon, she looked well and was clearly in no apparent respiratory distress. No pallor, jaundice, cyanosis or thyromegaly. No jugular venous distention. No lower limb edema. VITAL SIGNS: Her heart rate was 67, blood pressure was 123/62, temperature was 98.3, respiratory rate was 20, and oxygen saturation was 95% on 3 liters of oxygen. HEAD, EYES, EARS, NOSE AND THROAT: Showed normocephalic, atraumatic. NECK: Supple. HEART: Showed normal first and second heart sounds. No gallop or murmur. CHEST: Clear to auscultation. No crepitation or rhonchi. ABDOMEN: Distended, soft. NEUROLOGIC: She was awake, alert, responding appropriately. Denied any complaint. She ambulates without assistance or assistive devices and according to the nursing staff, she did not display any abnormal behavior. Her intake over the last 24 hours was 1216, output was recorded. LABORATORY DATA: Her lab work as of yesterday showed a white cell count of 11,300, hemoglobin 12, hematocrit 40, MCV 92, and platelet count 564,000. Her chemistry showed a serum sodium of 145, potassium 3.4, chloride 108, bicarbonate 30, anion gap of 7, BUN 6, creatinine 0.9, estimated GFR was 62 mL per minute. Her glucose was 112, calcium was 8.6. Total bilirubin, AST, ALT, alkaline phosphatase were normal. Total protein 5.5, albumin was 2.3. Her D-dimer was 1. ASSESSMENT: 1. The patient was transferred to [address] [place] [address] for possible COVID-19 pneumonia; however, her test was negative. 2. She has probably community-acquired pneumonia versus healthcare-associated pneumonia. 3. Acute on chronic hypoxic respiratory failure. 4. Chronic obstructive pulmonary disease. 5. Degenerative disk disease. 6. Degenerative joint disease. 7. Crohn's disease. 8. Seizure disorder. 9. Gastroesophageal reflux disease. PLAN: My plan is to discontinue her IV antibiotic and switch her to oral Augmentin. We have consulted our case management rn to see whether she can be discharged given that she lives alone and she has self-care. RODRIGUEZ LOWE MD DR: TOMI/caden JOB#: [id number] / [id number]
[2020-02-22 19:00] VITALS: BP 106/63
[2020-02-22] MEDS: QUEtiapine 25 MG TABLET. PO SCH (19:57)
[2020-02-22] MEDS: traZODone 100 MG TABLET. PO SCH (19:57)
[2020-02-22] MEDS: AMOXICILLIN/K CLAV 500/125MG TABLET. PO SCH (19:57)
[2020-02-22] MEDS: ATORVASTATIN CALCIUM 20 MG TABLET PO SCH (19:58)
--- NOTE | 2020-02-23 05:16 | NUR ---
pt was in bed apon assessment and med pass. pt was calm and cooperative with cares and med pass. pt did not come out to the hallway this evening like the prior one. pt stayed in her room and slept most the night. pt is currently sleeping. will continue to monitor.
[2020-02-23 06:26] VITALS: BP 124/74
[2020-02-23] MEDS: sulfaSALAzine 500 MG TABLET PO SCH ×2 (08:11→13:02)
[2020-02-23] MEDS: MIRABEGRON 25 MG TAB.ER.24H PO SCH (08:11)
[2020-02-23] MEDS: DIPHENOXYLATE/ATROPINE TABLET. PO SCH ×2 (08:11→13:02)
[2020-02-23] MEDS: LACTOBACILLUS RHAMNOSUS GG 1 CAPSULE. PO SCH (08:11)
[2020-02-23] MEDS: LIPASE/PROTEAS/AMYLAS 10/32/42 CAPSULE.DR. PO SCH ×2 (08:11→13:02)
[2020-02-23] MEDS: AMOXICILLIN/K CLAV 500/125MG TABLET. PO SCH (08:11)
[2020-02-23] MEDS: levETIRAcetam 500 MG TABLET PO SCH (08:11)
[2020-02-23] MEDS: GABAPENTIN 300 MG CAPSULE. PO SCH ×2 (08:12→13:02)
[2020-02-23] MEDS: DULoxetine HCL 30 MG CAPSULE.DR PO SCH (08:12)
[2020-02-23] MEDS: DICYCLOMINE HCL 20 MG TABLET PO SCH ×2 (08:12→13:03)
[2020-02-23] MEDS: PANTOPRAZOLE 40 MG TABLET. PO SCH (08:12)
[2020-02-23] MEDS: ASPIRIN ENTERIC COATED 81 MG TABLET.DR. PO SCH (08:15)
[2020-02-23] MEDS: CETIRIZINE HCL 10 MG TABLET PO SCH (08:15)
[2020-02-23] MEDS: METHYL SALICYLATE/MENTHOL TOPICAL OINTMENT 57GM TUBE. TP SCH ×2 (08:20→12:43)
[2020-02-23] MEDS: IPRATROPIUM/ALBUTEROL 20/100mcg/INH INHALER. INH SCH ×2 (08:25→12:00)
[2020-02-23] MEDS: FLUTICASONE 50MCG/NASAL SPRAY 16GM BOTTLE. NS SCH (08:25)
[2020-02-23] MEDS ORDERED: predniSONE 20 MG TABLET PO SCH (09:00)
--- NOTE | 2020-02-23 09:00 | NUR ---
Patient laying in bed watching television. Compliant with medications taken whole. Patient administered her own inhalers and nasal spray. Patient is calm and pleasant.
--- NOTE | 2020-02-23 10:44 | NUR ---
patient O2 sat 78% on 2L while patient was dressing and moving around the room, oxygen turned up to 5L and on 90%. Will continue to monitor.
--- NOTE | 2020-02-23 10:55 | NUR ---
Patient has been out of her room several times and has been standing in her doorway. She summoned this nurse into her room to ask who will be picking her up (she is scheduled for discharge today). She stated "I've been watching all these copper flotation operator shows and I just want to make sure I have a safe ride home". Nurse will check with Jane Foreman and let patient know what the transportation plans are.
[2020-02-23 11:25] VITALS: BP 144/72
--- NOTE | 2020-02-23 12:20 | DISCH ---
HOME HEALTH DISCHARGE/MEDS DISCHARGE INFORMATION: Discharge Date: Feb 23, 2020 Final Diagnosis: Acute hypoxic respiratory failure COPD hcap Condition on Discharge: Stable CODE STATUS: Code Status: Full HOME HEALTH: Face to Face: I certify this patient is under my care and that I, or a nurse practitioner or physician's family medicine physician assistant working with me, had a face to face encounter that meets the physician face to face encounter requirements with this patient on 02/23/2020 Medical Condition(s): Pneumonia Physical Therapy For: Evalulation/Treatment Occupational Therapy For: Evaluation/Treatment POST DISCHARGE ORDERS: Activity Instructions for Disc: Resume previous activity DIET AFTER DISCHARGE: Cardiac CERTIFICATION STATEMENT: Certification Statement: Based on the above finding, I certify that this patient is confined to the home and needs intermittent custodial care, physical therapy and/or speech therapy, or continues to need occupational therapy.~ This patient is under my care, and I have initiated the establishment of the plan of care.~ This patient will be followed by myself or a community physician who will periodically review the plan of care. DISCHARGE MEDICATIONS: Home Meds Reported Medications Quetiapine Fumarate (SEROQUEL) 25 Mg Tablet, 25 MG PO HS for mood stabilizer 02/13/20 Methyl Salicylate/Menthol (BENGAY GREASELESS CREAM) 57 Gm Cream..g., 1 RICCARDO TP QID for muscle pain 02/13/20 Magnesium Hydroxide (MILK OF MAGNESIA) 2,400 Mg/10 Ml Oral.susp, 2400 MG PO PRN QHS PRN for CONSTIPATION 02/13/20 Mag Hydrox/Al Hydrox/Simeth (MAALOX MAXIMUM STRENGTH SUSP) 355 Ml Oral.susp, 15 ML PO PRN AFTMEALHC PRN for DYSPEPSIA 02/13/20 Lactobacillus Rhamnosus Gg (CULTURELLE) 1 Each Capsule, 1 EACH PO BID for bowel health 02/13/20 Ipratropium/Albuterol Sulfate (COMBIVENT RESPIMAT INHAL) 4 Gm Aer.w.adap, 1 PUFF INH [id number] for SOA 02/13/20 Albuterol Sulfate (VENTOLIN HFA INHALER) 18 Gm Hfa.aer.ad, 1 PUFF IH PRN Q4HRS PRN for FOR ASTHMA 02/13/20 Trazodone Hcl (TRAZODONE HCL) 100 Mg Tablet, 100 MG PO QHS for insomnia, TAB 02/10/20 Sulfasalazine (SULFASALAZINE) 500 Mg Tablet, 500 MG PO TID for GI, TAB 02/10/20 Pantoprazole Sodium (PANTOPRAZOLE SODIUM) 40 Mg Tablet.dr, 40 MG PO DAILYAC for gerd, TAB 02/10/20 Mirabegron (MYRBETRIQ) 50 Mg Tab.er.24h, 50 MG PO DAILY for bladder, TAB.SR 02/10/20 Lipase/Protease/Amylase ([place] 24,000 Unit Capsule) 1 Each Capsule.dr, 1 EACH PO TID for digestion, CAP 02/10/20 Levetiracetam (LEVETIRACETAM) 500 Mg Tablet, 500 MG PO BID for seizures, TAB 02/10/20 Gabapentin (GABAPENTIN ) 300 Mg Capsule, 300 MG PO QID for NEUROGENIC PAIN, CAP 02/10/20 Fluticasone Propionate (FLUTICASONE PROPIONATE NASAL SPRAY) 16 Gm [place].susp, 2 SPRAY NS DAILY for allergy, EACH 02/10/20 Duloxetine Hcl (CYMBALTA) 30 Mg Capsule.dr, 30 MG PO BID for depression, CAP 02/10/20 Diphenoxylate Hcl/Atropine (LOMOTIL TABLET) 1 Each Tablet, 2 TAB PO QID for b owel, TAB 02/10/20 Diltiazem Hcl (DILTIAZEM HCL TABLET) 120 Mg Tablet, 120 MG PO TID for FOR HYPERTENSION, TAB 02/10/20 Dicyclomine Hcl (DICYCLOMINE HCL) 20 Mg Tablet, 20 MG PO TID for bowels, TAB 02/10/20 Cetirizine Hcl (CETIRIZINE HCL) 10 Mg Tablet, 10 MG PO DAILY for allergy, TAB 02/10/20 Atorvastatin Calcium (ATORVASTATIN CALCIUM) 20 Mg Tablet, 20 MG PO QHS for FOR CHOLESTEROL, TAB 02/10/20 Aspirin (ADULT LOW DOSE ASPIRIN EC) 81 Mg Tablet.dr, 81 MG PO DAILY for heart health, TAB 02/10/20 Discontinued Reported Medications Diltiazem Hcl (CARDIZEM CD) 240 Mg Cap.er.24h, 120 MG PO DAILY for FOR HYPERTENSION, #30 CAP 0 Refills 02/19/20 Clonazepam (KLONOPIN) 1 Mg Tablet, 1 TAB PO 1400,2100 for anxiety 02/13/20 Levofloxacin (LEVOFLOXACIN) 500 Mg Tablet, 250 MG PO DAILY06 for UTI for 4 Days 02/13/20 Acetaminophen (TYLENOL) 325 Mg Tablet, 650 MG PO PRN Q6HRS PRN for MILD PAIN / TEMP > 100.3'F 02/13/20 Clonazepam (CLONAZEPAM) 0.5 Mg Tablet, 1 MG PO DAILY for anxiety, TAB 02/10/20 RODRIGUEZ LOWE MD Feb 23, 2020 12:20
--- NOTE | 2020-02-23 12:26 | NUR ---
Per discussion with the hospitalist, SW will send a referral for PT, OT, psychiatric nursing and a social sciences professor to aid the family in finding a more appropriate place for pt to be (e.g. [facility])
--- NOTE | 2020-02-23 13:05 | NUR ---
BUSTER received a returned call from pt son, Patel, who discussed the fact that pt is ready to discharge on the medical floor. Patel questioned if pt would be able to discharge back on [facility]. BUSTER explained that with pt not exhibiting any behaviors (e.g. Hallucinations, delusions, no aggressive behaviors, SI or HI). BUSTER and pt son discussed having pt have HH services once discharged; she would need to have a child protective services social worker and others checking in until placement can be figured out. At this time, there are two options willing to consider pt. SW will continue to maintain the referral so that it will be of help to getting pt where she needs to be and assurance for the son in terms of knowing pt is not at home alone and some place that can provide the care for her that she needs. Pt son is currently at an appt at [facility], but will have to go to pt house to get an oxygen tank and will plan to pick pt up between 1600 and 1700 if everything goes as planned. BUSTER notified him that a referral for services with HH was sent to [facility] and they will be in touch to get services started.
--- NOTE | 2020-02-23 13:31 | DS ---
DATE OF DISCHARGE: HOSPITAL COURSE: The patient is a 69-year-old female patient who was transferred from [facility] where she was admitted originally putting herself in the floor, anxious, restless, appears more confused at times. She reportedly lives at home, has been actively hallucinating, has been going outside at night, dancing under the moonlight, has been anxious, wandering, has marked insomnia and tearful. She is having significant self-care deficits. Behaviors are deemed dangerous, unmanageable. Functional level is a potential danger to herself and therefore, she was admitted for inpatient psychiatric stabilization. While upstairs, she was found to be hypoxic and oxygen requirement has steadily increased and therefore, we did a chest x-ray and I was concerned that she might have pulmonary embolism and therefore, I did order a CT angio of the chest, which basically showed that she has no pulmonary emboli identified within the major lobe or segmental pulmonary arteries; however, she has patchy areas of ground glass opacities in the lungs bilaterally, this may be infectious, inflammatory in etiology and correlates for COVID-19. She was started on IV antibiotic for healthcare-associated pneumonia as well as IV steroids and was transferred to [address] [place] [address]. Eventually, her coronavirus by PCR was negative and she did actually well and her oxygen requirement has dropped down to 3 liters.1 PHYSICAL EXAMINATION: GENERAL: When I saw her this afternoon, she was sitting on the edge of the bed comfortably, in no apparent respiratory distress. No pallor, jaundice, cyanosis or thyromegaly. No jugular venous distention. No limb edema. VITAL SIGNS: Her heart rate 71, blood pressure was 124/74, temperature 97.7, respiratory rate 20, and oxygen saturation was ____ on 3 liters of oxygen. HEAD, EYES, EARS, NOSE AND THROAT: Normocephalic, atraumatic. NECK: Supple. HEART: Normal first and second heart sounds. No gallop or murmur. CHEST: Clear to auscultation. No crepitation or rhonchi. ABDOMEN: Distended, soft, nontender. NEUROLOGIC: She is awake, alert, responding appropriately. All her cranial nerves are intact. She moves extremities without difficulty. She ambulates without assistance or assistive devices. Her intake over the last 24 hours was 1260, no output was recorded. LABORATORY DATA: Showed a white cell count of 11,300, hemoglobin 12, hematocrit 40, MCV 92, and platelet count of 564,000. Serum sodium 145, potassium 3.4, chloride 108, bicarbonate 30, anion gap of 7, BUN 6, creatinine 0.9, estimated GFR was 62 mL per minute. Her glucose 112, calcium was 8.6. Total bilirubin, AST, ALT, alkaline phosphatase were normal. Total protein 5.5, albumin 2.3. Her D-dimer was 1 and her coronavirus by PCR was not detectable. DISCHARGE MEDICATIONS: She was discharged home with home health to continue on albuterol sulfate 1 puff every 4 hours, aspirin 81 mg once a day, atorvastatin calcium 20 mg at bedtime, cetirizine 10 mg daily, dicyclomine 20 mg 3 times a day, diltiazem 120 mg p.o. t.i.d., diphenoxylate/atropine for Lomotil 2 tablets 4 times a day, duloxetine for Cymbalta 30 mg twice a day, Flonase 2 sprays to each nostril once a day, gabapentin 300 mg 4 times a day, ipratropium bromide and albuterol sulfate for Combivent Respimat inhaler 1 puff 4 times a day, lactobacillus rhamnosus for Culturelle 1 capsule twice a day, levetiracetam 500 mg twice a day, Pertzye 24,000 unit capsule 3 times a day, Maalox 15 mL after meals and as needed, milk of magnesia 30 mL p.o. daily p.r.n. for constipation, [place] greaseless cream 1 application 4 times a day, Myrbetriq 50 mg daily, pantoprazole 40 mg tablet daily, quetiapine fumarate 25 mg at bedtime and sulfasalazine 500 mg 3 times a day. FINAL DISCHARGE DIAGNOSES: 1. Healthcare-associated pneumonia. 2. Acute on chronic hypoxic respiratory failure. 3. Chronic obstructive pulmonary disease. 4. Degenerative disk disease. 5. Degenerative joint disease. 6. Chronic disease. 7. Seizure disorder. 8. Gastroesophageal reflux disease. RODRIGUEZ LOWE MD DR: TOMI/caden JOB#: [id number] / [id number]
--- NOTE | 2020-02-23 16:23 | NUR ---
Patient discharged to home. Instructions and medication list reviewed with patient. Patients son picked her up to transport her home to [place], [place].
== END 2020-02-23 16:24 | disposition home health service (06) | DRG 177 ==
LOC: 1 SOUTH 11:50
PROVIDERS: ADMIT Internal Medicine; ATTEND Internal Medicine
DX: J15.6 Pneumonia due to other Gram-negative bacteria (principal); J96.21 Acute and chronic respiratory failure with hypoxia; J44.0 Chronic obstructive pulmonary disease with (acute) lower respiratory infection; K50.90 Crohn's disease, unspecified, without complications; J15.9 Unspecified bacterial pneumonia; D69.6 Thrombocytopenia, unspecified; D75.1 Secondary polycythemia; F41.0 Panic disorder [episodic paroxysmal anxiety]; G40.909 Epilepsy, unspecified, not intractable, without status epilepticus; G47.00 Insomnia, unspecified; K21.9 Gastro-esophageal reflux disease without esophagitis; M19.90 Unspecified osteoarthritis, unspecified site; M79.7 Fibromyalgia; Z20.828 Contact with and (suspected) exposure to other viral communicable diseases; F41.9 Anxiety disorder, unspecified; Z90.49 Acquired absence of other specified parts of digestive tract; Z88.1 Allergy status to other antibiotic agents; Z88.5 Allergy status to narcotic agent; Z88.8 Allergy status to other drugs, medicaments and biological substances
CPT/HCPCS: 36415; 80053; 80202; 83605; 83615; 83690; 85027; 85379; 86140; 87040; 90471; J2543; J2920; J3370; J7040; J7050; J7512; 90686; U0003-CS

== ENCOUNTER 2020-06-30 15:25 | Inpatient (IN) | payer MEDICARE, OTHER ==
[~2020-06-30] VITALS: Ht 152.4 cm; Wt 56.5 kg
[2020-06-30 16:46] VITALS: BP 133/69
[2020-06-30] MEDS ORDERED: DILT60TA3 PO (16:49)
[2020-06-30] MEDS ORDERED: NYST15PO9 TP (16:59)
[2020-06-30] MEDS ORDERED: FURO20TA3 PO (16:59)
[2020-06-30] MEDS ORDERED: BISA5TAB4 PO (16:59)
[2020-06-30] MEDS ORDERED: HYDR500C16 PO (16:59)
[2020-06-30] MEDS ORDERED: ALBU2.5V14 NEB (16:59)
[2020-06-30] MEDS ORDERED: MAGN400C PO (16:59)
[2020-06-30] MEDS ORDERED: POTA20TA4 PO (16:59)
[2020-06-30] MEDS ORDERED: UMEC62.5 IH (16:59)
[2020-06-30] MEDS ORDERED: CLON0.5T4 PO (16:59)
[2020-06-30] MEDS ORDERED: ACET500T68 PO ×2 (16:59)
[2020-06-30 18:37] LABS: BACTERIA,URINE FEW /HPF (0-FEW); BILIRUBIN,URINE NEG (NEG); CLARITY,URINE CLEAR; COLOR,URINE YELLOW; GLUCOSE,URINE NEG (NEG); NITRITE,URINE NEG (NEG); RBC,URINE RARE /HPF (0-2); UROBILINOGEN,URINE 0.2 mg/dL (0.2 mg/dL); WBC,URINE OCC /HPF (0-4)
[2020-06-30 18:38] LABS: SQUAMOUS EPITHELIAL CELL,UR FEW /LPF
[2020-06-30 18:42] LABS: BASO # 0.1 x10^3/uL (0.0-0.2); BASO % 1 % (0-3); EOS # 0.4 x10^3/uL (0.0-0.7); EOS % 5 % (0-3); HEMATOCRIT 36.7 % (36.0-47.0); LYMPH # 0.9 x10^3/uL (1.0-4.8); LYMPH % 11 % (24-48); MEAN CORPUSCULAR HEMOGLOBIN 32 pg (25-35); MEAN CORPUSCULAR HGB CONC 33 g/dL (31-37); MEAN CORPUSCULAR VOLUME 98 fL (79-100); MONO # 0.5 x10^3/uL (0.0-1.1); MONO % 6 % (0-9); NEUT # 6.6 x10^3uL (1.8-7.7); NEUT % 77 % (31-73); PLATELET COUNT 242 x10^3/uL (140-400); RED BLOOD COUNT 3.75 x10^6/uL (3.50-5.40); RED CELL DISTRIBUTION WIDTH 16.7 % (11.5-14.5); WHITE BLOOD COUNT 8.6 x10^3/uL (4.0-11.0)
[2020-06-30 18:52] LABS: ALBUMIN 2.7 g/dL (3.4-5.0); ALBUMIN/GLOBULIN RATIO 0.7 (1.0-1.7); ALK PHOS 105 U/L (46-116); ALT (SGPT) 14 U/L (14-59); ANION GAP 11 (6-14); AST (SGOT) 23 U/L (15-37); BLOOD UREA NITROGEN 7 mg/dL (7-20); BUN/CREATININE RATIO 7 (6-20); CALCIUM 8.1 mg/dL (8.5-10.1); CARBON DIOXIDE 24 mmol/L (21-32); CHLORIDE 96 mmol/L (98-107); GFR 55.1; GLUCOSE 181 mg/dL (70-99); POTASSIUM 3.1 mmol/L (3.5-5.1); SODIUM 131 mmol/L (136-145); TOTAL PROTEIN 6.7 g/dL (6.4-8.2)
[2020-06-30 18:54] LABS: TOTAL BILIRUBIN < 0.1 mg/dL (0.2-1.0)
[2020-06-30 18:55] LABS: MAGNESIUM 1.8 mg/dL (1.8-2.4)
[2020-06-30] MEDS ORDERED: ACETAMINOPHEN 500 MG TABLET PO PRN ×2 (19:30)
[2020-06-30 19:53] VITALS: BP 127/81
--- NOTE | 2020-06-30 20:46 | EKG ---
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
[2020-06-30] MEDS: traZODone 100 MG TABLET. PO SCH (21:36)
[2020-06-30] MEDS: clonazePAM 0.5 MG TABLET PO SCH (21:36)
[2020-06-30] MEDS: GABAPENTIN 300 MG CAPSULE. PO SCH (21:37)
[2020-06-30] MEDS: dilTIAZem HCL 30 MG TABLET PO SCH (21:37)
[2020-06-30] MEDS: levETIRAcetam 500 MG TABLET PO SCH (21:37)
[2020-06-30] MEDS: DULoxetine HCL 30 MG CAPSULE.DR PO SCH (21:37)
[2020-06-30] MEDS: sulfaSALAzine 500 MG TABLET PO SCH (21:38)
[2020-06-30] MEDS: NYSTATIN TOPICAL POWDER 15GM BOTTLE. TP SCH (21:39)
[2020-06-30 22:20] VITALS: BP 101/64
[2020-07-01 05:40] VITALS: BP 104/68
[2020-07-01] MEDS: sulfaSALAzine 500 MG TABLET PO SCH ×3 (08:13→21:11)
[2020-07-01] MEDS: DICYCLOMINE HCL 20 MG TABLET PO SCH ×3 (08:13→21:07)
[2020-07-01] MEDS: DULoxetine HCL 30 MG CAPSULE.DR PO SCH ×2 (08:13→21:08)
[2020-07-01] MEDS: GABAPENTIN 300 MG CAPSULE. PO SCH ×4 (08:13→21:08)
[2020-07-01] MEDS: levETIRAcetam 500 MG TABLET PO SCH ×2 (08:13→21:08)
[2020-07-01] MEDS: NYSTATIN TOPICAL POWDER 15GM BOTTLE. TP SCH ×2 (08:14→21:00)
[2020-07-01] MEDS: dilTIAZem HCL 30 MG TABLET PO SCH ×2 (08:14→21:08)
[2020-07-01] MEDS: clonazePAM 0.5 MG TABLET PO SCH ×3 (08:14→21:11)
[2020-07-01 10:13] VITALS: BP 122/78
--- NOTE | 2020-07-01 10:25 | HP ---
ADMIT DATE: 06/30/2020 ATTENDING PHYSICIAN: Dr. Pardo. HISTORY OF PRESENT ILLNESS: We are asked to see this patient for medical consultation and admission and screening for COVID-19 infection prior to going to the [facility]. The patient is 69. She has underlying major depression with psychotic features, impulse control and generalized anxiety. She also has underlying COPD. She is pleasantly confused. CURRENT MEDICATIONS: Include the following: She was taking Tylenol, albuterol, clonazepam, dicyclomine, diltiazem, Cymbalta, fluticasone, Lasix, Neurontin, Hydrea, Keppra, Myrbetriq, nystatin, Protonix, sulfasalazine, trazodone and Incruse Ellipta. DRUG ALLERGIES: INCLUDES CEFOXITIN, CODEINE, GLUTEN, LACTOSE AND BUTORPHANOL. PAST MEDICAL HISTORY: I am unaware of any pancreatic issues. Again, I am listing the medication from her intake. FAMILY HISTORY: Unobtainable. REVIEW OF SYSTEMS: Unremarkable for any COVID exposure, fevers, chills, sweats. All other systems reviewed and turned to be negative. PHYSICAL EXAMINATION: GENERAL: When I saw her, this is a pleasant, middle-aged female. INITIAL VITAL SIGNS: Showed a blood pressure of 104/68, pulse is 96 and regular, temperature 98.3 degrees Fahrenheit, oxygen saturation 93% on 2 liters nasal cannula. HEENT: Head is without trauma. Pupils are reactive. Sclerae are nonicteric. Oropharynx is clear. NECK: Supple, no bruits. LUNGS: Otherwise clear. CARDIOVASCULAR: Showed regular heart tones. No gallops. ABDOMEN: Soft, no guarding. EXTREMITIES: Show no cyanosis or edema. NEUROLOGIC FINDINGS: Focally intact. Speech is fluent. Pleasantly confused. We could not assess a full neurologic exam due to the patient's confusion. SKIN: Warm and dry. PERTINENT LABORATORY STUDIES: Hemoglobin is 12.0 g/dL, white count 8600. Electrolytes: Sodium 131, potassium 3.1 mEq, nonfasting blood sugar 181. Serology is pending. ASSESSMENT: 1. A 69-year-old female with agitation and behavioral issues. 2. Asymptomatic hypokalemia. 3. Hyperglycemia without any listed history of diabetes. PLAN: 1. Admit to the inpatient unit. 2. I shall order a hemoglobin A1c. 3. Potassium supplementation. 4. Await COVID swab prior to sending her up to the [facility]. DMITRI PARDO MD DR: FRANCIS/caden JOB#: [id number] / [id number]
[2020-07-01] MEDS: POTASSIUM CHLORIDE 20 MEQ TABLET.ER. PO SCH ×2 (12:36→21:08)
[2020-07-01 14:31] VITALS: BP 106/69
[2020-07-01 20:38] VITALS: BP 114/74
[2020-07-01] MEDS: traZODone 100 MG TABLET. PO SCH (21:08)
[2020-07-02 02:11] LABS: HEMOGLOBIN A1C 5.4 % (4.8-5.6)
[2020-07-02 07:14] LABS: CALCIUM 9.1 mg/dL (8.5-10.1); CREATININE 0.7 mg/dL (0.6-1.0); GFR 83.2; POTASSIUM 3.7 mmol/L (3.5-5.1)
--- NOTE | 2020-07-02 08:16 | DS ---
DATE OF DISCHARGE: 07/02/2020 ATTENDING PHYSICIAN: Dmitri Pardo MD FINAL DISCHARGE DIAGNOSES: 1. Underlying depression with anxiety. 2. Behavioral issues. 3. Chronic obstructive pulmonary disease. 4. Asymptomatic hypokalemia. 5. Short bowel syndrome. HISTORY AND PHYSICAL: The patient is a 69-year-old female with several medical issues. She was slated to go to the [facility]. She was sent here for admission to rule out COVID infection. PHYSICAL EXAMINATION: Please see the dictated note. PERTINENT LABORATORY AND X-RAY STUDIES: Admission hemoglobin was 12.0 g/dL, white count 6600. Electrolytes: Potassium 3.1, replaced, the next day it was up to 3.7 mEq per liter, sodium 139 mEq, creatinine 0.7 mg percent, nonfasting blood sugar was 181 on admission, repeat was 97. Serology: Coronavirus not detected. COURSE IN THE HOSPITAL: The patient was admitted. Home meds were continued. She did well. She still had some issues about overstepping boundaries. She has very little insight. Her coronavirus swab came back negative. She was then discharged to the [facility] on the next hospital day. DISCHARGE MEDICATIONS: Her discharge meds are unchanged, they include the following: She will continue her Tylenol, albuterol, bisacodyl, clonazepam, Bentyl, diltiazem CD, Cymbalta, fluticasone, Lasix, Neurontin, Hydrea, Keppra, pancreatic enzymes, magnesium oxide, Myrbetriq, Protonix, potassium, sulfasalazine, trazodone and Incruse Ellipta, doses unchanged. She is a DNR per advanced directive. She was discharged then from our hospital in stable condition with explicit instructions and followup care at the [facility]. TOTAL DISCHARGE TIME SPENT: 38 minutes. DMITRI PARDO MD DR: FRANCIS/caden JOB#: [id number] / [id number]
[2020-07-02] MEDS: POTASSIUM CHLORIDE 20 MEQ TABLET.ER. PO SCH (08:49)
[2020-07-02] MEDS: clonazePAM 0.5 MG TABLET PO SCH (08:49)
[2020-07-02] MEDS: sulfaSALAzine 500 MG TABLET PO SCH (08:49)
[2020-07-02] MEDS: GABAPENTIN 300 MG CAPSULE. PO SCH (08:49)
[2020-07-02] MEDS: levETIRAcetam 500 MG TABLET PO SCH (08:49)
[2020-07-02] MEDS: dilTIAZem HCL 30 MG TABLET PO SCH (08:49)
[2020-07-02] MEDS: DULoxetine HCL 30 MG CAPSULE.DR PO SCH (08:49)
[2020-07-02] MEDS: NYSTATIN TOPICAL POWDER 15GM BOTTLE. TP SCH (08:50)
[2020-07-02] MEDS: DICYCLOMINE HCL 20 MG TABLET PO SCH (08:50)
[2020-07-02 09:50] VITALS: BP 114/74
== END 2020-07-02 10:00 | DRG 392 ==
LOC: 1 SOUTH 15:25 → GEROPSY 07-02 04:30 → 1 SOUTH 07-02 04:44
PROVIDERS: ADMIT Hospitalist; ATTEND Hospitalist
DX: K91.2 Postsurgical malabsorption, not elsewhere classified (principal); F32.3 Major depressive disorder, single episode, severe with psychotic features; E87.6 Hypokalemia; F41.1 Generalized anxiety disorder; J44.9 Chronic obstructive pulmonary disease, unspecified; Z20.822 Contact with and (suspected) exposure to COVID-19; R73.9 Hyperglycemia, unspecified; Z66 Do not resuscitate; Z88.8 Allergy status to other drugs, medicaments and biological substances
CPT/HCPCS: 36415; 80048; 80053; 80061; 81001; 82306; 82607; 83036; 83735; 84443; 85025; 85379; 86592; 93005; U0003

== ENCOUNTER 2020-07-02 04:32 | Inpatient (IN) | payer MEDICARE, OTHER ==
[~2020-07-02] VITALS: Ht 152.4 cm; Wt 55.6 kg
[~2020-07-02 04:32] MED LIST changes: +ACET500T68 PO; +ALBU2.5V14 NEB; +BISA5TAB4 PO; +DILT60TA3 PO; +MAGN400C PO; +NYST15PO9 TP
[2020-07-02 10:19] VITALS: BP 109/56
[2020-07-02] MEDS ORDERED: ACETAMINOPHEN 325 MG TABLET PO PRN (10:30)
[2020-07-02] MEDS ORDERED: METHYL SALICYLATE/MENTHOL TOPICAL OINTMENT 57GM TUBE. TP PRN (10:30)
[2020-07-02] MEDS ORDERED: MAG HYDROX/AL HYDROX/SIMETH 30 ML ORAL.SUSP PO PRN ×2 (10:30→11:45)
[2020-07-02] MEDS ORDERED: MAGNESIUM HYDROXIDE 2,400 MG/30 ML ORAL.SUSP. PO PRN (10:30)
[2020-07-02] MEDS ORDERED: BISACODYL TAB 5 MG TABLET.DR. PO PRN (11:45)
[2020-07-02] MEDS ORDERED: DIPHENOXYLATE/ATROPINE TABLET. PO PRN (11:45)
[2020-07-02] MEDS ORDERED: NON FORMULARY ITEM (Albuterol Sulfate (Albuterol Sulfate Conc Neb Soln) 1 VIAL) NEB SCH (12:00)
[2020-07-02] MEDS: GABAPENTIN 300 MG CAPSULE. PO SCH ×3 (12:57→19:58)
[2020-07-02] MEDS: DICYCLOMINE HCL 20 MG TABLET PO SCH ×2 (12:58→19:58)
[2020-07-02] MEDS: FUROSEMIDE 20 MG TABLET PO SCH (12:58)
[2020-07-02] MEDS: clonazePAM 1 MG TABLET PO SCH ×2 (12:58→19:58)
[2020-07-02] MEDS: sulfaSALAzine 500 MG TABLET PO SCH ×2 (12:58→19:58)
[2020-07-02 15:39] VITALS: BP 126/71
[2020-07-02] MEDS: IPRATROPIUM/ALBUTEROL 20/100mcg/INH INHALER. INH SCH ×2 (17:24→20:00)
[2020-07-02] MEDS: LIPASE/PROTEAS/AMYLAS 10/32/42 CAPSULE.DR. PO SCH (17:26)
[2020-07-02] MEDS: NYSTATIN TOPICAL POWDER 15GM BOTTLE. TP SCH (19:57)
[2020-07-02] MEDS: levETIRAcetam 500 MG TABLET PO SCH (19:57)
[2020-07-02] MEDS: DULoxetine HCL 30 MG CAPSULE.DR PO SCH (19:58)
[2020-07-02] MEDS: traZODone 100 MG TABLET. PO SCH (19:58)
[2020-07-02] MEDS: dilTIAZem HCL 30 MG TABLET PO SCH (19:58)
[2020-07-02] MEDS: ALBUTEROL SULFATE 8GM INHALER. INH PRN (19:59)
--- NOTE | 2020-07-02 23:49 | HP ---
ADMIT DATE: 07/02/2020 PSYCHIATRIC ADMISSION HISTORY/EVALUATION This note covers elements not covered in my initial note 07/02/2020. IDENTIFYING DATA: The patient is a 69-year-old female referred from [facility] on account of worsening symptoms of depression, paranoia and mood swings. The patient reportedly had been slamming her head into the wall. She was having active hallucinations, had made statements that she felt like she would be better off . According to staff, she acted like she could not hear anyone, was refusing medications and cares. Behaviors were deemed dangerous, unmanageable at the facility, and she has failed a prior inpatient hospitalization with us in the past. The patient is referred for inpatient psychiatric stabilization. CHIEF COMPLAINT: "I don't do any of those things. They are lying." HISTORY OF PRESENT ILLNESS: The patient has a long history of major depressive disorder versus bipolar disorder with psychotic features. Recently, she has been decompensating, slamming her head into the wall as noted above, actively hallucinating, paranoid, having sleep and appetite changes. She has made suicidal statements, but denied these just now. PAST PSYCHIATRIC HISTORY: Positive for depression and mood swings. In the past, the patient was hospitalized, at one point, she was out in the streets, undressed, manic, psychotic, all of which she minimizes. MEDICAL HISTORY: Positive for COPD, oxygen dependent, GERD, Crohn's disease, fibromyalgia. CODE STATUS: DNR. ALLERGIES: CODEINE, GLUTEN, LACTOSE. ACCU-CHEKS: None. DIET: Gluten free. Takes medications whole. Ambulates ad maty with walker. LABORATORY DATA: UA 06/30 was negative. COVID screen negative. CURRENT PSYCHOTROPICS: Klonopin 1 mg t.i.d., Cymbalta 30 mg b.i.d., Keppra 500 mg b.i.d., trazodone 100 mg at bedtime, and we are adding Zyprexa 2.5 mg q. 2 hours p.r.n. psychosis, agitation, max 10 mg in 24 hours. FAMILY HISTORY: Noncontributory. SOCIAL HISTORY: No alcohol, drug abuse, physical, sexual or elder abuse history is noted. She is not known to be a perpetrator. REACTION TO HOSPITALIZATION: The patient reluctantly accepting of it. ASSETS: Supportive son, stable living at the above care home. REVIEW OF SYSTEMS: Ambulation impaired with walker. No CV, , pulmonary, eye, ENT system symptoms on review. She is somewhat short of breath. MENTAL STATUS EXAMINATION: The patient was seen individually in her room, evening of 07/02/2020. She is oriented to herself and situation. Speech coherent, rapid at times. She is very expressive, minimizing, denying anything that prompted her referral. Abstraction fair, computation impaired, language function intact. Mood and affect, anxious, labile, depressed. IMPRESSION: Bipolar disorder, mixed with psychotic features versus major depressive disorder with psychotic features; anxiety disorder, unspecified; impulse control disorder, unspecified. Rest as above. PLAN: Admit to Geropsychiatry Unit at [facility]. I will see the patient daily individually from a psychiatric standpoint. Medical followup with Dr. Clark/Dr. Cheng We will add Zyprexa p.r.n., obtain further historical information, consider adding Depakote as a mood stabilizer and Risperdal as an atypical antipsychotic, but we will make these decisions post baseline assessment. ESTIMATED LENGTH OF STAY: 10-12 days. DISPOSITION: Plans back to care home when stable. NITHIN STEVENS MD DR: PAYTON/nts JOB#: [id number] / [id number]
[2020-07-03 05:33] VITALS: BP 118/75
[2020-07-03 07:24] LABS: BASO # 0.1 x10^3/uL (0.0-0.2); BASO % 1 % (0-3); EOS # 0.2 x10^3/uL (0.0-0.7); EOS % 3 % (0-3); HEMATOCRIT 36.5 % (36.0-47.0); HEMOGLOBIN 11.7 g/dL (12.0-15.5); LYMPH # 0.8 x10^3/uL (1.0-4.8); LYMPH % 9 % (24-48); MEAN CORPUSCULAR HEMOGLOBIN 31 pg (25-35); MEAN CORPUSCULAR HGB CONC 32 g/dL (31-37); MEAN CORPUSCULAR VOLUME 98 fL (79-100); MONO # 0.5 x10^3/uL (0.0-1.1); MONO % 6 % (0-9); NEUT # 7.1 x10^3uL (1.8-7.7); NEUT % 82 % (31-73); PLATELET COUNT 359 x10^3/uL (140-400); RED BLOOD COUNT 3.71 x10^6/uL (3.50-5.40); RED CELL DISTRIBUTION WIDTH 16.2 % (11.5-14.5); WHITE BLOOD COUNT 8.7 x10^3/uL (4.0-11.0)
[2020-07-03 07:39] LABS: ALBUMIN 2.6 g/dL (3.4-5.0); ALBUMIN/GLOBULIN RATIO 0.7 (1.0-1.7); CALCIUM 8.6 mg/dL (8.5-10.1); CREATININE 0.8 mg/dL (0.6-1.0); GFR 71.3; MAGNESIUM 2.1 mg/dL (1.8-2.4); POTASSIUM 3.8 mmol/L (3.5-5.1); TOTAL BILIRUBIN 0.3 mg/dL (0.2-1.0); TOTAL PROTEIN 6.3 g/dL (6.4-8.2)
[2020-07-03] MEDS: NYSTATIN TOPICAL POWDER 15GM BOTTLE. TP SCH ×2 (08:30→20:02)
[2020-07-03] MEDS: DULoxetine HCL 30 MG CAPSULE.DR PO SCH ×2 (08:31→19:59)
[2020-07-03] MEDS: LIPASE/PROTEAS/AMYLAS 10/32/42 CAPSULE.DR. PO SCH ×3 (08:31→17:18)
[2020-07-03] MEDS: IPRATROPIUM/ALBUTEROL 20/100mcg/INH INHALER. INH SCH ×4 (08:31→20:01)
[2020-07-03] MEDS: clonazePAM 1 MG TABLET PO SCH ×3 (08:32→19:59)
[2020-07-03] MEDS: DICYCLOMINE HCL 20 MG TABLET PO SCH ×3 (08:32→19:58)
[2020-07-03] MEDS: levETIRAcetam 500 MG TABLET PO SCH ×2 (08:32→19:58)
[2020-07-03] MEDS: FUROSEMIDE 20 MG TABLET PO SCH ×2 (08:33→12:20)
[2020-07-03] MEDS: GABAPENTIN 300 MG CAPSULE. PO SCH ×4 (08:33→19:58)
[2020-07-03] MEDS: sulfaSALAzine 500 MG TABLET PO SCH ×3 (08:36→20:01)
[2020-07-03] MEDS: PANTOPRAZOLE 40 MG TABLET. PO SCH (08:36)
[2020-07-03] MEDS: HYDROXYUREA 500 MG CAPSULE PO SCH (08:38)
[2020-07-03] MEDS: MIRABEGRON 25 MG TAB.ER.24H PO SCH (08:39)
[2020-07-03] MEDS: POTASSIUM CHLORIDE 20 MEQ TABLET.ER. PO SCH (08:39)
[2020-07-03] MEDS: MAGNESIUM OXIDE 400 MG TABLET PO SCH (08:39)
[2020-07-03] MEDS: FLUTICASONE 50MCG/NASAL SPRAY 16GM BOTTLE. NS SCH (09:00)
[2020-07-03] MEDS ORDERED: NON FORMULARY ITEM (Umeclidinium Bromide (Incruse Ellipta) 62.5 MCG) IH SCH (09:00)
[2020-07-03] MEDS: dilTIAZem HCL 30 MG TABLET PO SCH ×2 (09:00→19:58)
[2020-07-03 12:14] LABS: THYROID STIM HORMONE (TSH) 0.432 uIU/mL (0.358-3.740)
[2020-07-03 16:05] VITALS: BP 122/79
[2020-07-03 19:07] LABS: THYROXINE 7.3 ug/dL (4.5-12.0)
[2020-07-03] MEDS: traZODone 100 MG TABLET. PO SCH (19:58)
[2020-07-03] MEDS: DIVALPROEX ER 500 MG TAB.ER.24H PO SCH (20:01)
--- NOTE | 2020-07-03 21:26 | PDOC ---
Exam Note: Napoleon Note: Please also refer to the separate dictated note~for this date of service dictated separately.~Patient seen individually. Discussed the patient with Nursing staff reviewed the chart.~Reviewed interim history and current functioning. Reviewed vital signs,~Labs/ Radiology~and current medications noted below. Continue current treatment with the changes noted in the dictated addendum note Assessment: Vital Signs/I&O: Vital Signs Date Time Temp Pulse Resp B/P (MAP) Pulse Ox O2 Delivery O2 Flow Rate FiO2 07/03/20 19:58 73 122/79 07/03/20 16:05 98.3 20 97 Nasal Cannula 2.0 I & O 07/02/20 07/02/20 07/03/20 15:00 23:00 07:00 Intake Total 240 ml 600 ml Balance 240 ml 600 ml Labs: Laboratory Tests Test 07/03/20 06:50 07/03/20 06:57 White Blood Count 8.7 x10^3/uL (4.0-11.0) Red Blood Count 3.71 x10^6/uL (3.50-5.40) Hemoglobin 11.7 g/dL (12.0-15.5) L Hematocrit 36.5 % (36.0-47.0) Mean Corpuscular Volume 98 fL (79-100) Mean Corpuscular Hemoglobin 31 pg (25-35) Mean Corpuscular Hemoglobin Concent 32 g/dL (31-37) Red Cell Distribution Width 16.2 % (11.5-14.5) H Platelet Count 359 x10^3/uL (140-400) Neutrophils (%) (Auto) 82 % (31-73) H Lymphocytes (%) (Auto) 9 % (24-48) L Monocytes (%) (Auto) 6 % (0-9) Eosinophils (%) (Auto) 3 % (0-3) Basophils (%) (Auto) 1 % (0-3) Neutrophils # (Auto) 7.1 x10^3uL (1.8-7.7) Lymphocytes # (Auto) 0.8 x10^3/uL (1.0-4.8) L Monocytes # (Auto) 0.5 x10^3/uL (0.0-1.1) Eosinophils # (Auto) 0.2 x10^3/uL (0.0-0.7) Basophils # (Auto) 0.1 x10^3/uL (0.0-0.2) Sodium Level 140 mmol/L (136-145) Potassium Level 3.8 mmol/L (3.5-5.1) Chloride Level 104 mmol/L (98-107) Carbon Dioxide Level 30 mmol/L (21-32) Anion Gap 6 (6-14) Blood Urea Nitrogen 8 mg/dL (7-20) Creatinine 0.8 mg/dL (0.6-1.0) Estimated GFR (Cockcroft-Gault) 71.3 BUN/Creatinine Ratio 10 (6-20) Glucose Level 105 mg/dL (70-99) H Calcium Level 8.6 mg/dL (8.5-10.1) Magnesium Level 2.1 mg/dL (1.8-2.4) Iron Level 42 ug/dL (50-170) L Total Iron Binding Capacity 362 ug/dL (250-450) Iron Saturation 12 % (15-34) L Total Bilirubin 0.3 mg/dL (0.2-1.0) Aspartate Amino Transferase (AST) 17 U/L (15-37) Alanine Aminotransferase (ALT) 13 U/L (14-59) L Alkaline Phosphatase 99 U/L (46-116) Total Protein 6.3 g/dL (6.4-8.2) L Albumin 2.6 g/dL (3.4-5.0) L Albumin/Globulin Ratio 0.7 (1.0-1.7) L Triglycerides Level 127 mg/dL (0-150) Cholesterol Level 107 mg/dL (0-200) LDL Cholesterol, Calculated 41 mg/dL (0-100) VLDL Cholesterol, Calculated 25 mg/dL (0-40) Non-HDL Cholesterol Calculated 66 mg/dL (0-129) HDL Cholesterol 41 mg/dL (40-60) Cholesterol/HDL Ratio 2.0 Thyroid Stimulating Hormone (TSH) 0.432 uIU/mL (0.358-3.740) Thyroxine (T4) 7.3 ug/dL (4.5-12.0) Total Triiodothyronine (TT3) 95 ng/dL (71-180) D-Dimer (Jill) 0.75 mg/L (0.00-0.50) H Current Medications: Meds: Current Medications Medications (Trade) Dose Ordered Sig/Mya Route PRN Reason Start Time Stop Time Status Last Admin Dose Admin Hydroxyurea (Hydrea) 1,000 mg DAILY PO 07/03/20 09:00 07/03/20 08:38 Pantoprazole Sodium (Protonix) 40 mg DAILYAC PO 07/03/20 07:30 07/03/20 08:36 Potassium Chloride (Klor-Con) 40 meq DAILY PO 07/03/20 09:00 07/03/20 08:39 Magnesium Oxide (Magnesium Oxide) 400 mg DAILY PO 07/03/20 09:00 07/03/20 08:39 Mirabegron (Myrbetriq) 50 mg DAILY PO 07/03/20 09:00 07/03/20 08:39 Divalproex Sodium (Depakote Er) 500 mg QHS PO 07/03/20 21:00 07/03/20 20:01 I have reviewed the current psychotropics carefully including drug interactions. Risk benefit ratio favors no change other than as noted in my dictated progress note. Diagnosis: Problems: (1) Impulse control disorder, unspecified (2) Anxiety disorder, unspecified (3) Major depressive disorder with psychotic features (4) Acute respiratory failure with hypoxia (5) Person under investigation for COVID-19 NITHIN STEVENS MD Jul 03, 2020 21:26
--- NOTE | 2020-07-04 00:07 | PN ---
DATE: 07/03/2020 This note covers elements not covered in my initial note of 07/03/2020. SUBJECTIVE: I met with the patient evening of 07/03/2020. Per CORTNEY Adhikari, the patient slept 8 hours previous night. Previous night, she was obsessing about being discharged, anxious, poor insight, minimizing, denying most of the problems prompting admission. Reviewed her past history at length including manic, psychotic symptoms. She was undressed out in the open in rather cold temperatures, other bizarre behavior. The patient minimizes all of this. Addressed with her at length. REVIEW OF SYSTEMS: Shortness of breath, on O2 supplements; impaired ambulation with walker. No CV, GI, , ENT system symptoms on review. MENTAL STATUS EXAM: Oriented to herself and situation. Speech coherent, rapid at times. She denies banging her head prior to admission "I never do those things." Speech coherent, abstraction fair, computation impaired, language function intact. Mood and affect remains anxious, labile. LABORATORY DATA: Reviewed. IMPRESSION: Bipolar 1 disorder, mixed with psychotic features; anxiety disorder, unspecified; history of major depressive disorder. Rest unchanged. PLAN: From a psychiatric standpoint, we will add Depakote ER 500 mg p.o. at bedtime. Check CBC, CMP, valproic acid level in [address] Alvarado given a history of seizure disorder for which she is on Keppra and whether Keppra could be tapered once Depakote is therapeutic. Since Keppra could be worsening some of her irritability and mood lability. Continue rest of the psychotropics, Cymbalta 30 mg b.i.d., Klonopin 1 mg t.i.d. and we will try and taper this. MAN Floresita STEVENS MD DR: PAYTON/caden JOB#: [id number] / [id number]
--- NOTE | 2020-07-04 00:32 | CONS ---
DATE OF CONSULTATION: 07/03/2020 NEUROLOGIC CONSULTATION REFERRING PHYSICIAN: Dr. Duffy. REASON FOR CONSULTATION: History of seizure disorder. HISTORY OF PRESENT ILLNESS: This is a 69-year-old right-handed female who was transferred from [facility] on account of worsening of her depression and anxiety. Neuro consult was requested because the patient has had a history of seizure disorder of unknown etiology. According to the patient, the last seizure was 2 months ago. She stated she has had at least 5 seizures, but she does not remember when she started the first seizure. Currently, she denies headaches, visual disturbances, nausea, vomiting, palpitation, dysarthria or dysphagia. According to the patient, when she had a seizure she would have complete loss of consciousness followed by post-event confusion and disorientation. The patient was seen by her primary care physicians in [place], Dr. Doss and she was placed on anticonvulsant -- Keppra. PAST MEDICAL HISTORY: Significant for COPD for which she used external oxygen saturation via nasal cannula, GERD, degenerative disk disease of the lumbar spine, fibromyalgia, osteoarthritis, urinary tract infections and incontinence, Crohn's disease and anemia. PAST SURGICAL HISTORY: Positive for bowel surgery for Crohn's disease. SOCIAL HISTORY: The patient [place] jail. She denies smoking, alcohol drinking, or illicit drug use. She has 2 boys. FAMILY HISTORY: Noncontributory. CURRENT HOME MEDICATIONS: Depakote 500 mg at bedtime, magnesium oxide, potassium, hydroxyurea, Flonase nasal spray, Protonix, trazodone, Cymbalta, Cardizem, levetiracetam 500 mg twice daily, olanzapine for agitation, lipase, protease and amylase, clonazepam, sulfasalazine 500 mg t.i.d., furosemide 20 mg. Other medications include atropine and fentanyl for pain. ALLERGIES: BUTORPHANOL, CEFOXITIN, CODEINE, GLUTEN and LACTOSE. PHYSICAL EXAMINATION: GENERAL: Well-developed, well-nourished female in no acute distress. VITAL SIGNS: Blood pressure 122/79, respiratory rate 20, pulse is 73, temperature 96.3, oxygen saturation 2 liters by nasal cannula. HEENT: Normocephalic, atraumatic, otherwise unremarkable. NECK: Supple. Negative for carotid bruit, lymphadenopathy or thyromegaly. LUNGS: Clear to A and P. CARDIOVASCULAR: Regular rate and rhythm, normal S1, S2. There is no S3, S4 or murmur. ABDOMEN: Soft. Bowel sounds positive. EXTREMITIES: Negative for cyanosis, clubbing or edema. NEUROLOGICAL EXAM: Mental Status: The patient is alert and oriented x 3. Speech is fluent. There is no language dysfunction. Memory, judgment, and abstracting thinking are normal. The patient denies hallucination or delusion at this time. CRANIAL NERVES: Visual heredia are full. The pupils are reactive to light and accommodation. The extraocular movements are intact. There is no nystagmus. There is no facial motor or sensory deficits. Hearing is intact bilaterally. The palate is elevated symmetrically. Sternocleidomastoid muscles are powerful bilaterally. CARDIOVASCULAR: Regular rate and rhythm, normal S1, S2. There is no S3, S4 or murmur. ABDOMEN: Soft. Bowel sounds positive. EXTREMITIES: Negative for cyanosis, clubbing or pitting edema. NEUROLOGICAL: Mental status: The patient is alert and oriented x 3. The speech is fluent. There is no language dysfunction. Memory and judgment are normal. The patient denies hallucination or delusion. CRANIAL NERVES: Visual heredia are full. The pupils are reactive to light and accommodation. The extraocular movements are intact. There is no nystagmus. There is no facial motor or sensory deficit. Hearing is intact bilaterally. The palate is elevated symmetrically. Sternocleidomastoid muscles are powerful bilaterally. The patient shrugs her shoulders symmetrically, protrudes her tongue in the midline without fasciculation or atrophy. MOTOR EXAMINATION: Revealed no focal muscle bulk and the tone is normal. The strength is 4/5 throughout. SENSORY EXAMINATION: Revealed normal pinprick and light touch senses. Deep tendon reflexes were symmetric and hypoactive with absent Achilles responses. GAIT: The patient uses a walker for ambulation. DIAGNOSTIC DATA: A chest x-ray revealed small bilateral pleural effusion, otherwise patchy bibasilar opacities due to atelectasis or consolidation. CT angio revealed no pulmonary embolism along with patchy areas of ground glass opacity in the lung bilaterally. LABORATORY DATA: CBC revealed white blood cells of 8.7 thousand, hemoglobin 11.7, hematocrit 36.5, platelet count 359,000. Chemistry revealed sodium of 140, potassium 3.8, chloride 104, CO2 of 30, BUN 8, creatinine 0.8, glucose 105, calcium 8.6 and magnesium 2.1. Lipid profile is normal. D-dimer is high at 0.75. IMPRESSION: 1. History of seizure disorder of unknown etiology, probably traumatic head injury. The patient stated that she has been taking anticonvulsant for a while, but she has not had any recurrent seizure. 2. Multiple medical problems include depression, anxiety disorder, gastroesophageal reflux disease, chronic low back pain with lumbosacral degenerative disk disease, bipolar disorder with intermittent psychotic features. 3. Chronic disease, fibromyalgia, osteoarthritis, panic attack, anemia. RECOMMENDATIONS: 1. Continue with current management initiated by Dr. Duffy. 2. We will taper Keppra gradually by 30% every third day until Depakote level becomes therapeutic then the Keppra can be discontinued if the patient has not had any recurrent seizure. 3. Otherwise, continue with current medical and psychiatric care. M Kishore MARSH MD DR: FELIX/caden JOB#: [id number] / [id number]
[2020-07-04 05:08] LABS: HEMOGLOBIN A1C 5.3 % (4.8-5.6)
[2020-07-04 05:59] VITALS: BP 111/66
[2020-07-04] MEDS: GABAPENTIN 300 MG CAPSULE. PO SCH ×4 (08:41→19:37)
[2020-07-04] MEDS: clonazePAM 1 MG TABLET PO SCH ×3 (08:41→19:37)
[2020-07-04] MEDS: PANTOPRAZOLE 40 MG TABLET. PO SCH (08:41)
[2020-07-04] MEDS: DULoxetine HCL 30 MG CAPSULE.DR PO SCH ×2 (08:41→19:41)
[2020-07-04] MEDS: sulfaSALAzine 500 MG TABLET PO SCH ×3 (08:41→19:44)
[2020-07-04] MEDS: MIRABEGRON 25 MG TAB.ER.24H PO SCH (08:41)
[2020-07-04] MEDS: POTASSIUM CHLORIDE 20 MEQ TABLET.ER. PO SCH (08:43)
[2020-07-04] MEDS: HYDROXYUREA 500 MG CAPSULE PO SCH (08:43)
[2020-07-04] MEDS: levETIRAcetam 500 MG TABLET PO SCH ×2 (08:44→19:38)
[2020-07-04] MEDS: dilTIAZem HCL 30 MG TABLET PO SCH ×2 (08:44→19:48)
[2020-07-04] MEDS: MAGNESIUM OXIDE 400 MG TABLET PO SCH (08:44)
[2020-07-04] MEDS: LIPASE/PROTEAS/AMYLAS 10/32/42 CAPSULE.DR. PO SCH ×3 (08:44→17:31)
[2020-07-04] MEDS: FUROSEMIDE 20 MG TABLET PO SCH ×2 (08:44→14:10)
[2020-07-04] MEDS: DICYCLOMINE HCL 20 MG TABLET PO SCH ×3 (08:44→19:38)
[2020-07-04] MEDS: IPRATROPIUM/ALBUTEROL 20/100mcg/INH INHALER. INH SCH ×4 (08:45→19:36)
[2020-07-04] MEDS: NYSTATIN TOPICAL POWDER 15GM BOTTLE. TP SCH ×2 (10:41→19:44)
[2020-07-04] MEDS: FLUTICASONE 50MCG/NASAL SPRAY 16GM BOTTLE. NS SCH (10:41)
[2020-07-04 15:25] VITALS: BP 91/60
[2020-07-04] MEDS: DIVALPROEX ER 500 MG TAB.ER.24H PO SCH (19:37)
[2020-07-04] MEDS: traZODone 100 MG TABLET. PO SCH (19:38)
[2020-07-04 19:46] VITALS: BP 111/67
--- NOTE | 2020-07-04 21:54 | PDOC ---
Exam Note: Napoleon Note: Please also refer to the separate dictated note~for this date of service dictated separately.~Patient seen individually. Discussed the patient with Nursing staff reviewed the chart.~Reviewed interim history and current functioning. Reviewed vital signs,~Labs/ Radiology~and current medications noted below. Continue current treatment with the changes noted in the dictated addendum note Assessment: Vital Signs/I&O: Vital Signs Date Time Temp Pulse Resp B/P (MAP) Pulse Ox O2 Delivery O2 Flow Rate FiO2 07/04/20 19:48 95 111/67 07/04/20 15:25 97.9 20 96 Nasal Cannula 2.0 I & O 07/03/20 07/03/20 07/04/20 15:00 23:00 07:00 Intake Total 720 ml 480 ml Balance 720 ml 480 ml Current Medications: I have reviewed the current psychotropics carefully including drug interactions. Risk benefit ratio favors no change other than as noted in my dictated progress note. Diagnosis: Problems: (1) Impulse control disorder, unspecified (2) Anxiety disorder, unspecified (3) Major depressive disorder with psychotic features (4) Person under investigation for COVID-19 NITHIN STEVENS MD Jul 04, 2020 21:54
[2020-07-05] MEDS: FLUTICASONE 50MCG/NASAL SPRAY 16GM BOTTLE. NS SCH (08:10)
[2020-07-05] MEDS: NYSTATIN TOPICAL POWDER 15GM BOTTLE. TP SCH ×2 (08:11→20:17)
[2020-07-05] MEDS: PANTOPRAZOLE 40 MG TABLET. PO SCH (08:11)
[2020-07-05] MEDS: LIPASE/PROTEAS/AMYLAS 10/32/42 CAPSULE.DR. PO SCH ×3 (08:11→18:01)
[2020-07-05] MEDS: dilTIAZem HCL 30 MG TABLET PO SCH ×2 (08:12→20:28)
[2020-07-05] MEDS: clonazePAM 1 MG TABLET PO SCH ×3 (08:14→20:20)
[2020-07-05] MEDS: HYDROXYUREA 500 MG CAPSULE PO SCH (08:15)
[2020-07-05] MEDS: POTASSIUM CHLORIDE 20 MEQ TABLET.ER. PO SCH (08:15)
[2020-07-05] MEDS: DULoxetine HCL 30 MG CAPSULE.DR PO SCH ×2 (08:15→20:16)
[2020-07-05] MEDS: sulfaSALAzine 500 MG TABLET PO SCH ×3 (08:16→20:20)
[2020-07-05] MEDS: FUROSEMIDE 20 MG TABLET PO SCH ×2 (08:16→12:44)
[2020-07-05] MEDS: DICYCLOMINE HCL 20 MG TABLET PO SCH ×3 (08:16→20:17)
[2020-07-05] MEDS: levETIRAcetam 500 MG TABLET PO SCH ×2 (08:16→20:16)
[2020-07-05] MEDS: GABAPENTIN 300 MG CAPSULE. PO SCH ×4 (08:16→20:20)
[2020-07-05] MEDS: IPRATROPIUM/ALBUTEROL 20/100mcg/INH INHALER. INH SCH ×4 (08:17→20:17)
[2020-07-05] MEDS: MAGNESIUM OXIDE 400 MG TABLET PO SCH (08:17)
[2020-07-05] MEDS: MIRABEGRON 25 MG TAB.ER.24H PO SCH (08:18)
[2020-07-05] MEDS: ALBUTEROL SULFATE 8GM INHALER. INH PRN (12:45)
[2020-07-05] MEDS: ACETAMINOPHEN 500 MG TABLET PO PRN ×2 (14:09→21:04)
[2020-07-05 15:43] VITALS: BP 109/75
[2020-07-05] MEDS: traZODone 100 MG TABLET. PO SCH (20:16)
[2020-07-05] MEDS: DIVALPROEX ER 500 MG TAB.ER.24H PO SCH (20:16)
[2020-07-05 20:26] VITALS: BP 106/59
--- NOTE | 2020-07-05 21:07 | PDOC ---
Exam Note: Napoleon Note: Please also refer to the separate dictated note~for this date of service dictated separately.~Patient seen individually. Discussed the patient with Nursing staff reviewed the chart.~Reviewed interim history and current functioning. Reviewed vital signs,~Labs/ Radiology~and current medications noted below. Continue current treatment with the changes noted in the dictated addendum note Assessment: Vital Signs/I&O: Vital Signs Date Time Temp Pulse Resp B/P (MAP) Pulse Ox O2 Delivery O2 Flow Rate FiO2 07/05/20 20:28 106 106/59 07/05/20 20:26 93 2.0 07/05/20 15:43 97.6 20 07/04/20 15:25 Nasal Cannula I & O 07/04/20 07/04/20 07/05/20 15:00 23:00 07:00 Intake Total 840 ml 600 ml Balance 840 ml 600 ml Current Medications: Meds: Current Medications Medications (Trade) Dose Ordered Sig/Mya Route PRN Reason Start Time Stop Time Status Last Admin Dose Admin Acetaminophen (Tylenol) 650 mg PRN Q6HRS PRN PO MILD PAIN / TEMP > 100.3'F 07/02/20 10:30 Cancel Multi-Ingredient Ointment (Analgesic [place]) 1 debra PRN QID PRN TP MUSCLE PAIN 07/02/20 10:30 Al Hydroxide/Mg Hydroxide (Mylanta Plus Xs) 15 ml PRN AFTMEALHC PRN PO DYSPEPSIA 07/02/20 10:30 Magnesium Hydroxide (Milk Of Magnesia) 2,400 mg PRN QHS PRN PO 1st CHOICE CONSTIPATION 07/02/20 10:30 Acetaminophen (Tylenol) 500 mg PRN Q4HRS PRN PO mild pain or fever 07/02/20 11:45 07/05/20 14:09 Acetaminophen (Tylenol) 1,000 mg PRN Q6HRS PRN PO moderate-severe pain or fever 07/02/20 11:45 07/05/20 21:04 Bisacodyl (Dulcolax Tab) 5 mg PRN DAILY PRN PO 2ND CHOICE CONSTIPATION 07/02/20 11:45 Dicyclomine HCl (Bentyl) 20 mg TID PO 07/02/20 14:00 07/05/20 20:17 Diphenoxylate HCl/ Atropine (Lomotil) 2 tab PRN BID PRN PO DIARRHEA 07/02/20 11:45 Fluticasone Propionate (Flonase) 2 spray DAILY NS 07/03/20 09:00 07/05/20 08:10 Furosemide (Lasix) 20 mg BID92 PO 07/02/20 14:00 07/05/20 12:44 Gabapentin (Neurontin) 300 mg QID PO 07/02/20 13:00 07/05/20 20:20 Hydroxyurea (Hydrea) 1,000 mg DAILY PO 07/03/20 09:00 07/05/20 08:15 Levetiracetam (Keppra) 500 mg BID PO 07/02/20 21:00 07/05/20 20:16 Al Hydroxide/Mg Hydroxide (Mylanta Plus Xs) 15 ml PRN AFTMEALHC PRN PO DYSPEPSIA 07/02/20 11:45 UNV Nystatin (Nystop) 1 debra BID TP 07/02/20 21:00 07/05/20 20:17 Pantoprazole Sodium (Protonix) 40 mg DAILYAC PO 07/03/20 07:30 07/05/20 08:11 Potassium Chloride (Klor-Con) 40 meq DAILY PO 07/03/20 09:00 07/05/20 08:15 Sulfasalazine (Azulfidine) 500 mg TID PO 07/02/20 14:00 07/05/20 20:20 Non-Formulary Medication (Albuterol Sulfate (Albuterol Sulfate Conc Neb Soln)) 1 vial Q4HRS NEB 07/02/20 12:00 UNV Diltiazem HCl (Cardizem) 60 mg BID PO 07/02/20 21:00 07/05/20 20:28 Amylase/Lipase/ Protease (Zenpep 10,000) 2 cap TIDBFRMEAL PO 07/02/20 16:30 07/05/20 18:01 Magnesium Oxide (Magnesium Oxide) 400 mg DAILY PO 07/03/20 09:00 07/05/20 08:17 Mirabegron (Myrbetriq) 50 mg DAILY PO 07/03/20 09:00 07/05/20 08:18 Non-Formulary Medication (Umeclidinium [place] (Incruse Ellipta)) 62.5 mcg DAILY IH 07/03/20 09:00 UNV Clonazepam (KlonoPIN) 1 mg TID PO 07/02/20 14:00 07/05/20 20:20 Duloxetine HCl (Cymbalta) 30 mg BID PO 07/02/20 21:00 07/05/20 20:16 Trazodone HCl (Desyrel) 100 mg QHS PO 07/02/20 21:00 07/05/20 20:16 Albuterol/ Ipratropium (Combivent Respimat 20-100 Mcg) 1 puff RTQID INH 07/02/20 16:00 07/05/20 20:17 Albuterol Sulfate (Ventolin Hfa Inhaler) 1 puff PRN Q4HRS PRN INH SHORTNESS OF BREATH 07/02/20 13:15 07/02/20 19:59 Olanzapine (ZyPREXA ZYDIS) 2.5 mg PRN Q2HR PRN PO PSYCHOSIS 07/02/20 19:45 07/05/20 14:18 Divalproex Sodium (Depakote Er) 500 mg QHS PO 07/03/20 21:00 07/05/20 20:16 I have reviewed the current psychotropics carefully including drug interactions. Risk benefit ratio favors no change other than as noted in my dictated progress note. Diagnosis: Problems: (1) COPD (chronic obstructive pulmonary disease) (2) Impulse control disorder, unspecified (3) Anxiety disorder, unspecified (4) Major depressive disorder with psychotic features (5) Bipolar disorder, curr episode mixed, severe, with psychotic features NITHIN STEVENS MD Jul 05, 2020 21:07
[2020-07-06 06:03] VITALS: BP 113/74
--- NOTE | 2020-07-06 08:06 | PDOC ---
Exam Note: Napoleon Note: This note is a late entry for 07/04/2020 covers elements not covered in my initial note. Subjective: The patient was seen face to face in the morning of 07/04/2020 for a treatment team meeting with Rosalva Hutton, Lety Farley and Archana (social science manager), Jodie Caban, activity therapy and Hadley BARR, discussed and reviewed the chart. She slept 6-3/4 hours previous night. Sleeping average 8 hours. Appetite is 100%. She has been anxious, restless, minimizes most of the problems prompting admission, repeatedly trying to call her son. Review of Systems: Shortness of breath on O2 supplements. Impaired ambulation on wheelchair. No CV, , eye, ENT system symptoms on review. Mental Status Exam: The patient is oriented to herself and situation. Speech is coherent, at times, somewhat pressured. Abstraction is fair. Computation is impaired. Language function is intact. She is quite obsessed about discharge plans and I addressed with her. Laboratory Data: Reviewed. Impression: Bipolar disorder mixed with psychotic features. Mild cognitive impairment. Anxiety disorder unspecified. Impulse control disorder unspecified. Plan: Continue psychotropics from initial note. We will check valproic acid level on 07/06. We will try and reduce the Klonopin gradually. Maintain Cymbalta, Keppra, trazodone, and Zyprexa. Assessment: Vital Signs/I&O: Vital Signs Date Time Temp Pulse Resp B/P (MAP) Pulse Ox O2 Delivery O2 Flow Rate FiO2 07/06/20 06:03 98.2 110 24 113/74 (87) 91 2.0 07/04/20 15:25 Nasal Cannula I & O 07/05/20 07/05/20 07/06/20 15:00 23:00 07:00 Intake Total 960 ml 840 ml Balance 960 ml 840 ml Current Medications: Meds: Current Medications Medications (Trade) Dose Ordered Sig/Mya Route PRN Reason Start Time Stop Time Status Last Admin Dose Admin Acetaminophen (Tylenol) 650 mg PRN Q6HRS PRN PO MILD PAIN / TEMP > 100.3'F 07/02/20 10:30 Cancel Multi-Ingredient Ointment (Analgesic [place]) 1 debra PRN QID PRN TP MUSCLE PAIN 07/02/20 10:30 Al Hydroxide/Mg Hydroxide (Mylanta Plus Xs) 15 ml PRN AFTMEALHC PRN PO DYSPEPSIA 07/02/20 10:30 Magnesium Hydroxide (Milk Of Magnesia) 2,400 mg PRN QHS PRN PO 1st CHOICE CONSTIPATION 07/02/20 10:30 Acetaminophen (Tylenol) 500 mg PRN Q4HRS PRN PO mild pain or fever 07/02/20 11:45 07/05/20 14:09 Acetaminophen (Tylenol) 1,000 mg PRN Q6HRS PRN PO moderate-severe pain or fever 07/02/20 11:45 07/05/20 21:04 Bisacodyl (Dulcolax Tab) 5 mg PRN DAILY PRN PO 2ND CHOICE CONSTIPATION 07/02/20 11:45 Dicyclomine HCl (Bentyl) 20 mg TID PO 07/02/20 14:00 07/05/20 20:17 Diphenoxylate HCl/ Atropine (Lomotil) 2 tab PRN BID PRN PO DIARRHEA 07/02/20 11:45 Fluticasone Propionate (Flonase) 2 spray DAILY NS 07/03/20 09:00 07/05/20 08:10 Furosemide (Lasix) 20 mg BID92 PO 07/02/20 14:00 07/05/20 12:44 Gabapentin (Neurontin) 300 mg QID PO 07/02/20 13:00 07/05/20 20:20 Hydroxyurea (Hydrea) 1,000 mg DAILY PO 07/03/20 09:00 07/05/20 08:15 Levetiracetam (Keppra) 500 mg BID PO 07/02/20 21:00 07/05/20 20:16 Al Hydroxide/Mg Hydroxide (Mylanta Plus Xs) 15 ml PRN AFTMEALHC PRN PO DYSPEPSIA 07/02/20 11:45 UNV Nystatin (Nystop) 1 debra BID TP 07/02/20 21:00 07/05/20 20:17 Pantoprazole Sodium (Protonix) 40 mg DAILYAC PO 07/03/20 07:30 07/05/20 08:11 Potassium Chloride (Klor-Con) 40 meq DAILY PO 07/03/20 09:00 07/05/20 08:15 Sulfasalazine (Azulfidine) 500 mg TID PO 07/02/20 14:00 07/05/20 20:20 Non-Formulary Medication (Albuterol Sulfate (Albuterol Sulfate Conc Neb Soln)) 1 vial Q4HRS NEB 07/02/20 12:00 UNV Diltiazem HCl (Cardizem) 60 mg BID PO 07/02/20 21:00 07/05/20 20:28 Amylase/Lipase/ Protease (Zenpep 10,000) 2 cap TIDBFRMEAL PO 07/02/20 16:30 07/05/20 18:01 Magnesium Oxide (Magnesium Oxide) 400 mg DAILY PO 07/03/20 09:00 07/05/20 08:17 Mirabegron (Myrbetriq) 50 mg DAILY PO 07/03/20 09:00 07/05/20 08:18 Non-Formulary Medication (Umeclidinium [place] (Incruse Ellipta)) 62.5 mcg DAILY IH 07/03/20 09:00 UNV Clonazepam (KlonoPIN) 1 mg TID PO 07/02/20 14:00 07/05/20 20:20 Duloxetine HCl (Cymbalta) 30 mg BID PO 07/02/20 21:00 07/05/20 20:16 Trazodone HCl (Desyrel) 100 mg QHS PO 07/02/20 21:00 07/05/20 20:16 Albuterol/ Ipratropium (Combivent Respimat 20-100 Mcg) 1 puff RTQID INH 07/02/20 16:00 07/05/20 20:17 Albuterol Sulfate (Ventolin Hfa Inhaler) 1 puff PRN Q4HRS PRN INH SHORTNESS OF BREATH 07/02/20 13:15 07/02/20 19:59 Olanzapine (ZyPREXA ZYDIS) 2.5 mg PRN Q2HR PRN PO PSYCHOSIS 07/02/20 19:45 07/05/20 14:18 Divalproex Sodium (Depakote Er) 500 mg QHS PO 07/03/20 21:00 07/05/20 20:16 I have reviewed the current psychotropics carefully including drug interactions. Risk benefit ratio favors no change other than as noted in my dictated progress note. Diagnosis: Problems: (1) Major depressive disorder with psychotic features (2) Bipolar disorder, curr episode mixed, severe, with psychotic features (3) COPD (chronic obstructive pulmonary disease) (4) Impulse control disorder, unspecified (5) Anxiety disorder, unspecified NITHIN STEVENS MD Jul 06, 2020 08:06
[2020-07-06] MEDS: NYSTATIN TOPICAL POWDER 15GM BOTTLE. TP SCH ×2 (08:23→20:39)
[2020-07-06] MEDS: FLUTICASONE 50MCG/NASAL SPRAY 16GM BOTTLE. NS SCH (08:23)
[2020-07-06] MEDS: LIPASE/PROTEAS/AMYLAS 10/32/42 CAPSULE.DR. PO SCH ×3 (08:24→17:28)
[2020-07-06] MEDS: POTASSIUM CHLORIDE 20 MEQ TABLET.ER. PO SCH (08:24)
[2020-07-06] MEDS: dilTIAZem HCL 30 MG TABLET PO SCH ×2 (08:24→20:40)
[2020-07-06] MEDS: levETIRAcetam 500 MG TABLET PO SCH ×2 (08:25→20:40)
[2020-07-06] MEDS: PANTOPRAZOLE 40 MG TABLET. PO SCH (08:25)
[2020-07-06] MEDS: DULoxetine HCL 30 MG CAPSULE.DR PO SCH ×2 (08:25→20:41)
[2020-07-06] MEDS: MIRABEGRON 25 MG TAB.ER.24H PO SCH (08:25)
[2020-07-06] MEDS: GABAPENTIN 300 MG CAPSULE. PO SCH ×4 (08:26→20:40)
[2020-07-06] MEDS: clonazePAM 1 MG TABLET PO SCH ×3 (08:26→20:40)
[2020-07-06] MEDS: FUROSEMIDE 20 MG TABLET PO SCH ×2 (08:26→14:32)
[2020-07-06] MEDS: MAGNESIUM OXIDE 400 MG TABLET PO SCH (08:27)
[2020-07-06] MEDS: DICYCLOMINE HCL 20 MG TABLET PO SCH ×3 (08:28→20:41)
[2020-07-06] MEDS: sulfaSALAzine 500 MG TABLET PO SCH ×3 (08:28→20:46)
[2020-07-06] MEDS: IPRATROPIUM/ALBUTEROL 20/100mcg/INH INHALER. INH SCH ×4 (08:28→20:41)
[2020-07-06] MEDS: HYDROXYUREA 500 MG CAPSULE PO SCH (08:30)
--- NOTE | 2020-07-06 08:47 | PDOC ---
Exam Note: Napoleon Note: This note is a late entry for 07/05/2020 covers elements not covered in my initial note. Subjective: The patient was seen face to face in the evening of 07/05/2020 with Cheryl BARR, discussed and reviewed the chart. She received Zyprexa x1, anxious in groups. Short-term memory is impaired. She got agitated in the afternoon. Review of Systems: Shortness of breath on O2 supplements. Impaired ambulation on wheelchair. No CV, , eye, ENT system symptoms on review. Mental Status Exam: The patient has been alert and oriented x3. Speech more coherent, less anxious. Speech is coherent, at times, somewhat pressured. Abstraction is fair. Computation is impaired. Language function is intact. No suicidal or homicidal ideation. She does continue to have some mood swings and careful review of her past history is reflective of bipolar disorder. Laboratory Data: Reviewed. Impression: Bipolar disorder depressed with psychotic features. Anxiety disorder unspecified. Mild cognitive impairment. Plan: Continue psychotropics from initial note. We have started Depakote and repeat labs on 07/06 with valproic acid level. Adjust to reach therapeutic level. Assessment: Vital Signs/I&O: Vital Signs Date Time Temp Pulse Resp B/P (MAP) Pulse Ox O2 Delivery O2 Flow Rate FiO2 07/06/20 08:24 110 113/74 07/06/20 06:03 98.2 24 91 2.0 07/04/20 15:25 Nasal Cannula I & O 07/05/20 07/05/20 07/06/20 15:00 23:00 07:00 Intake Total 960 ml 840 ml Balance 960 ml 840 ml Current Medications: Meds: Current Medications Medications (Trade) Dose Ordered Sig/Mya Route PRN Reason Start Time Stop Time Status Last Admin Dose Admin Acetaminophen (Tylenol) 650 mg PRN Q6HRS PRN PO MILD PAIN / TEMP > 100.3'F 07/02/20 10:30 Cancel Multi-Ingredient Ointment (Analgesic [place]) 1 debra PRN QID PRN TP MUSCLE PAIN 07/02/20 10:30 Al Hydroxide/Mg Hydroxide (Mylanta Plus Xs) 15 ml PRN AFTMEALHC PRN PO DYSPEPSIA 07/02/20 10:30 Magnesium Hydroxide (Milk Of Magnesia) 2,400 mg PRN QHS PRN PO 1st CHOICE CONSTIPATION 07/02/20 10:30 Acetaminophen (Tylenol) 500 mg PRN Q4HRS PRN PO mild pain or fever 07/02/20 11:45 07/05/20 14:09 Acetaminophen (Tylenol) 1,000 mg PRN Q6HRS PRN PO moderate-severe pain or fever 07/02/20 11:45 07/05/20 21:04 Bisacodyl (Dulcolax Tab) 5 mg PRN DAILY PRN PO 2ND CHOICE CONSTIPATION 07/02/20 11:45 Dicyclomine HCl (Bentyl) 20 mg TID PO 07/02/20 14:00 07/06/20 08:28 Diphenoxylate HCl/ Atropine (Lomotil) 2 tab PRN BID PRN PO DIARRHEA 07/02/20 11:45 Fluticasone Propionate (Flonase) 2 spray DAILY NS 07/03/20 09:00 07/06/20 08:23 Furosemide (Lasix) 20 mg BID92 PO 07/02/20 14:00 07/06/20 08:26 Gabapentin (Neurontin) 300 mg QID PO 07/02/20 13:00 07/06/20 08:26 Hydroxyurea (Hydrea) 1,000 mg DAILY PO 07/03/20 09:00 07/06/20 08:30 Levetiracetam (Keppra) 500 mg BID PO 07/02/20 21:00 07/06/20 08:25 Al Hydroxide/Mg Hydroxide (Mylanta Plus Xs) 15 ml PRN AFTMEALHC PRN PO DYSPEPSIA 07/02/20 11:45 UNV Nystatin (Nystop) 1 debra BID TP 07/02/20 21:00 07/06/20 08:23 Pantoprazole Sodium (Protonix) 40 mg DAILYAC PO 07/03/20 07:30 07/06/20 08:25 Potassium Chloride (Klor-Con) 40 meq DAILY PO 07/03/20 09:00 07/06/20 08:24 Sulfasalazine (Azulfidine) 500 mg TID PO 07/02/20 14:00 07/06/20 08:28 Non-Formulary Medication (Albuterol Sulfate (Albuterol Sulfate Conc Neb Soln)) 1 vial Q4HRS NEB 07/02/20 12:00 UNV Diltiazem HCl (Cardizem) 60 mg BID PO 07/02/20 21:00 07/06/20 08:24 Amylase/Lipase/ Protease (Zenpep 10,000) 2 cap TIDBFRMEAL PO 07/02/20 16:30 07/06/20 08:24 Magnesium Oxide (Magnesium Oxide) 400 mg DAILY PO 07/03/20 09:00 07/06/20 08:27 Mirabegron (Myrbetriq) 50 mg DAILY PO 07/03/20 09:00 07/06/20 08:25 Non-Formulary Medication (Umeclidinium [place] (Incruse Ellipta)) 62.5 mcg DAILY IH 07/03/20 09:00 UNV Clonazepam (KlonoPIN) 1 mg TID PO 07/02/20 14:00 07/06/20 08:26 Duloxetine HCl (Cymbalta) 30 mg BID PO 07/02/20 21:00 07/06/20 08:25 Trazodone HCl (Desyrel) 100 mg QHS PO 07/02/20 21:00 07/05/20 20:16 Albuterol/ Ipratropium (Combivent Respimat 20-100 Mcg) 1 puff RTQID INH 07/02/20 16:00 07/06/20 08:28 Albuterol Sulfate (Ventolin Hfa Inhaler) 1 puff PRN Q4HRS PRN INH SHORTNESS OF BREATH 07/02/20 13:15 07/02/20 19:59 Olanzapine (ZyPREXA ZYDIS) 2.5 mg PRN Q2HR PRN PO PSYCHOSIS 07/02/20 19:45 07/05/20 14:18 Divalproex Sodium (Depakote Er) 500 mg QHS PO 07/03/20 21:00 07/05/20 20:16 I have reviewed the current psychotropics carefully including drug interactions. Risk benefit ratio favors no change other than as noted in my dictated progress note. Diagnosis: Problems: (1) Impulse control disorder, unspecified (2) Anxiety disorder, unspecified (3) Major depressive disorder with psychotic features (4) Bipolar disorder, curr episode mixed, severe, with psychotic features (5) Mild cognitive impairment NITHIN STEVENS MD Jul 06, 2020 08:47
[2020-07-06 09:56] LABS: BASO # 0.1 x10^3/uL (0.0-0.2); BASO % 2 % (0-3); EOS # 0.4 x10^3/uL (0.0-0.7); EOS % 6 % (0-3); HEMATOCRIT 39.8 % (36.0-47.0); HEMOGLOBIN 12.7 g/dL (12.0-15.5); LYMPH # 0.9 x10^3/uL (1.0-4.8); LYMPH % 14 % (24-48); MEAN CORPUSCULAR HEMOGLOBIN 32 pg (25-35); MEAN CORPUSCULAR HGB CONC 32 g/dL (31-37); MEAN CORPUSCULAR VOLUME 100 fL (79-100); MONO # 0.4 x10^3/uL (0.0-1.1); MONO % 6 % (0-9); NEUT # 4.3 x10^3uL (1.8-7.7); NEUT % 72 % (31-73); PLATELET COUNT 474 x10^3/uL (140-400); RED BLOOD COUNT 3.97 x10^6/uL (3.50-5.40); RED CELL DISTRIBUTION WIDTH 16.6 % (11.5-14.5); WHITE BLOOD COUNT 6.1 x10^3/uL (4.0-11.0)
[2020-07-06 10:09] LABS: ALBUMIN 2.9 g/dL (3.4-5.0); ALBUMIN/GLOBULIN RATIO 0.8 (1.0-1.7); ALK PHOS 107 U/L (46-116); ALT (SGPT) 15 U/L (14-59); ANION GAP 11 (6-14); AST (SGOT) 14 U/L (15-37); BLOOD UREA NITROGEN 10 mg/dL (7-20); BUN/CREATININE RATIO 11 (6-20); CALCIUM 8.9 mg/dL (8.5-10.1); CARBON DIOXIDE 28 mmol/L (21-32); CHLORIDE 103 mmol/L (98-107); CREATININE 0.9 mg/dL (0.6-1.0); GFR 62.3; GLUCOSE 190 mg/dL (70-99); POTASSIUM 4.2 mmol/L (3.5-5.1); SODIUM 142 mmol/L (136-145); TOTAL BILIRUBIN 0.3 mg/dL (0.2-1.0); TOTAL PROTEIN 6.7 g/dL (6.4-8.2)
[2020-07-06 10:11] LABS: VAL ACID 30 mcg/mL (50-100)
[2020-07-06 16:03] VITALS: BP 118/69
[2020-07-06] MEDS: CHOLECALCIFEROL (VITAMIN D3) 50,000 UNIT CAPSULE PO SCH (20:40)
[2020-07-06] MEDS: traZODone 100 MG TABLET. PO SCH (20:40)
[2020-07-06] MEDS: DIVALPROEX ER 500 MG TAB.ER.24H PO SCH (20:40)
--- NOTE | 2020-07-06 21:06 | PDOC ---
Exam Note: Napoleon Note: Please also refer to the separate dictated note~for this date of service dictated separately.~Patient seen individually. Discussed the patient with Nursing staff reviewed the chart.~Reviewed interim history and current functioning. Reviewed vital signs,~Labs/ Radiology~and current medications noted below. Continue current treatment with the changes noted in the dictated addendum note Assessment: Vital Signs/I&O: Vital Signs Date Time Temp Pulse Resp B/P (MAP) Pulse Ox O2 Delivery O2 Flow Rate FiO2 07/06/20 20:40 92 118/69 07/06/20 16:03 98.7 18 97 2.0 07/04/20 15:25 Nasal Cannula I & O 0 07/05/20 07/05/20 07/06/20 15:00 23:00 07:00 Intake Total 960 ml 840 ml Balance 960 ml 840 ml Labs: Laboratory Tests Test 07/06/20 09:24 White Blood Count 6.1 x10^3/uL (4.0-11.0) Red Blood Count 3.97 x10^6/uL (3.50-5.40) Hemoglobin 12.7 g/dL (12.0-15.5) Hematocrit 39.8 % (36.0-47.0) Mean Corpuscular Volume 100 fL (79-100) Mean Corpuscular Hemoglobin 32 pg (25-35) Mean Corpuscular Hemoglobin Concent 32 g/dL (31-37) Red Cell Distribution Width 16.6 % (11.5-14.5) H Platelet Count 474 x10^3/uL (140-400) H Neutrophils (%) (Auto) 72 % (31-73) Lymphocytes (%) (Auto) 14 % (24-48) L Monocytes (%) (Auto) 6 % (0-9) Eosinophils (%) (Auto) 6 % (0-3) H Basophils (%) (Auto) 2 % (0-3) Neutrophils # (Auto) 4.3 x10^3uL (1.8-7.7) Lymphocytes # (Auto) 0.9 x10^3/uL (1.0-4.8) L Monocytes # (Auto) 0.4 x10^3/uL (0.0-1.1) Eosinophils # (Auto) 0.4 x10^3/uL (0.0-0.7) Basophils # (Auto) 0.1 x10^3/uL (0.0-0.2) Sodium Level 142 mmol/L (136-145) Potassium Level 4.2 mmol/L (3.5-5.1) Chloride Level 103 mmol/L (98-107) Carbon Dioxide Level 28 mmol/L (21-32) Anion Gap 11 (6-14) Blood Urea Nitrogen 10 mg/dL (7-20) Creatinine 0.9 mg/dL (0.6-1.0) Estimated GFR (Cockcroft-Gault) 62.3 BUN/Creatinine Ratio 11 (6-20) Glucose Level 190 mg/dL (70-99) H Calcium Level 8.9 mg/dL (8.5-10.1) Total Bilirubin 0.3 mg/dL (0.2-1.0) Aspartate Amino Transferase (AST) 14 U/L (15-37) L Alanine Aminotransferase (ALT) 15 U/L (14-59) Alkaline Phosphatase 107 U/L (46-116) Total Protein 6.7 g/dL (6.4-8.2) Albumin 2.9 g/dL (3.4-5.0) L Albumin/Globulin Ratio 0.8 (1.0-1.7) L Valproic Acid Level 30 mcg/mL (50-100) L Valproic Acid Last Dose Date 07/05/20 Valproic Acid Last Dose Time 2100 Current Medications: Meds: Laboratory Tests Test 07/06/20 09:24 White Blood Count 6.1 x10^3/uL Red Blood Count 3.97 x10^6/uL Hemoglobin 12.7 g/dL Hematocrit 39.8 % Mean Corpuscular Volume 100 fL Mean Corpuscular Hemoglobin 32 pg Mean Corpuscular Hemoglobin Concent 32 g/dL Red Cell Distribution Width 16.6 % Platelet Count 474 x10^3/uL Neutrophils (%) (Auto) 72 % Lymphocytes (%) (Auto) 14 % Monocytes (%) (Auto) 6 % Eosinophils (%) (Auto) 6 % Basophils (%) (Auto) 2 % Neutrophils # (Auto) 4.3 x10^3uL Lymphocytes # (Auto) 0.9 x10^3/uL Monocytes # (Auto) 0.4 x10^3/uL Eosinophils # (Auto) 0.4 x10^3/uL Basophils # (Auto) 0.1 x10^3/uL Sodium Level 142 mmol/L Potassium Level 4.2 mmol/L Chloride Level 103 mmol/L Carbon Dioxide Level 28 mmol/L Anion Gap 11 Blood Urea Nitrogen 10 mg/dL Creatinine 0.9 mg/dL Estimated GFR (Cockcroft-Gault) 62.3 BUN/Creatinine Ratio 11 Glucose Level 190 mg/dL Calcium Level 8.9 mg/dL Total Bilirubin 0.3 mg/dL Aspartate Amino Transf (AST/SGOT) 14 U/L Alanine Aminotransferase (ALT/SGPT) 15 U/L Alkaline Phosphatase 107 U/L Total Protein 6.7 g/dL Albumin 2.9 g/dL Albumin/Globulin Ratio 0.8 Valproic Acid (Depakene) Level 30 mcg/mL Valproic Acid Last Dose Date 07/05/20 Valproic Acid Last Dose Time 2100 Current Medications Medications (Trade) Dose Ordered Sig/Mya Route PRN Reason Start Time Stop Time Status Last Admin Dose Admin Acetaminophen (Tylenol) 650 mg PRN Q6HRS PRN PO MILD PAIN / TEMP > 100.3'F 07/02/20 10:30 Cancel Multi-Ingredient Ointment (Analgesic [place]) 1 debra PRN QID PRN TP MUSCLE PAIN 07/02/20 10:30 Al Hydroxide/Mg Hydroxide (Mylanta Plus Xs) 15 ml PRN AFTMEALHC PRN PO DYSPEPSIA 07/02/20 10:30 Magnesium Hydroxide (Milk Of Magnesia) 2,400 mg PRN QHS PRN PO 1st CHOICE CONSTIPATION 07/02/20 10:30 Acetaminophen (Tylenol) 500 mg PRN Q4HRS PRN PO mild pain or fever 07/02/20 11:45 07/05/20 14:09 Acetaminophen (Tylenol) 1,000 mg PRN Q6HRS PRN PO moderate-severe pain or fever 07/02/20 11:45 07/05/20 21:04 Bisacodyl (Dulcolax Tab) 5 mg PRN DAILY PRN PO 2ND CHOICE CONSTIPATION 07/02/20 11:45 Dicyclomine HCl (Bentyl) 20 mg TID PO 07/02/20 14:00 07/06/20 20:41 Diphenoxylate HCl/ Atropine (Lomotil) 2 tab PRN BID PRN PO DIARRHEA 07/02/20 11:45 Fluticasone Propionate (Flonase) 2 spray DAILY NS 07/03/20 09:00 07/06/20 08:23 Furosemide (Lasix) 20 mg BID92 PO 07/02/20 14:00 07/06/20 14:32 Gabapentin (Neurontin) 300 mg QID PO 07/02/20 13:00 07/06/20 20:40 Hydroxyurea (Hydrea) 1,000 mg DAILY PO 07/03/20 09:00 07/06/20 08:30 Levetiracetam (Keppra) 500 mg BID PO 07/02/20 21:00 07/06/20 20:40 Al Hydroxide/Mg Hydroxide (Mylanta Plus Xs) 15 ml PRN AFTMEALHC PRN PO DYSPEPSIA 07/02/20 11:45 UNV Nystatin (Nystop) 1 debra BID TP 07/02/20 21:00 07/06/20 20:39 Pantoprazole Sodium (Protonix) 40 mg DAILYAC PO 07/03/20 07:30 07/06/20 08:25 Potassium Chloride (Klor-Con) 40 meq DAILY PO 07/03/20 09:00 07/06/20 08:24 Sulfasalazine (Azulfidine) 500 mg TID PO 07/02/20 14:00 07/06/20 20:46 Non-Formulary Medication (Albuterol Sulfate (Albuterol Sulfate Conc Neb Soln)) 1 vial Q4HRS NEB 07/02/20 12:00 UNV Diltiazem HCl (Cardizem) 60 mg BID PO 07/02/20 21:00 07/06/20 20:40 Amylase/Lipase/ Protease (Zenpep 10,000) 2 cap TIDBFRMEAL PO 07/02/20 16:30 07/06/20 17:28 Magnesium Oxide (Magnesium Oxide) 400 mg DAILY PO 07/03/20 09:00 07/06/20 08:27 Mirabegron (Myrbetriq) 50 mg DAILY PO 07/03/20 09:00 07/06/20 08:25 Non-Formulary Medication (Umeclidinium [place] (Incruse Ellipta)) 62.5 mcg DAILY IH 07/03/20 09:00 UNV Clonazepam (KlonoPIN) 1 mg TID PO 07/02/20 14:00 07/06/20 20:40 Duloxetine HCl (Cymbalta) 30 mg BID PO 07/02/20 21:00 07/06/20 20:41 Trazodone HCl (Desyrel) 100 mg QHS PO 07/02/20 21:00 07/06/20 20:40 Albuterol/ Ipratropium (Combivent Respimat 20-100 Mcg) 1 puff RTQID INH 07/02/20 16:00 07/06/20 20:41 Albuterol Sulfate (Ventolin Hfa Inhaler) 1 puff PRN Q4HRS PRN INH SHORTNESS OF BREATH 07/02/20 13:15 07/02/20 19:59 Olanzapine (ZyPREXA ZYDIS) 2.5 mg PRN Q2HR PRN PO PSYCHOSIS 07/02/20 19:45 07/05/20 14:18 Divalproex Sodium (Depakote Er) 500 mg QHS PO 07/03/20 21:00 07/06/20 18:58 DC 07/05/20 20:16 Vitamin D (Vitamin D3) 50,000 unit WEEKLY PO 07/06/20 18:15 07/06/20 20:40 Divalproex Sodium (Depakote Er) 1,000 mg QHS PO 07/06/20 21:00 07/06/20 20:40 Current Medications Medications (Trade) Dose Ordered Sig/Mya Route PRN Reason Start Time Stop Time Status Last Admin Dose Admin Vitamin D (Vitamin D3) 50,000 unit WEEKLY PO 07/06/20 18:15 07/06/20 20:40 Divalproex Sodium (Depakote Er) 1,000 mg QHS PO 07/06/20 21:00 07/06/20 20:40 I have reviewed the current psychotropics carefully including drug interactions. Risk benefit ratio favors no change other than as noted in my dictated progress note. Diagnosis: Problems: (1) Bipolar disorder, curr episode mixed, severe, with psychotic features (2) Mild cognitive impairment (3) Major depressive disorder with psychotic features (4) COPD (chronic obstructive pulmonary disease) (5) Anxiety disorder, unspecified (6) Impulse control disorder, unspecified NITHIN STEVENS MD Jul 06, 2020 21:06
[2020-07-07 05:42] VITALS: BP 106/69
[2020-07-07] MEDS: dilTIAZem HCL 30 MG TABLET PO SCH ×2 (08:08→20:05)
[2020-07-07] MEDS: sulfaSALAzine 500 MG TABLET PO SCH ×3 (08:08→19:45)
[2020-07-07] MEDS: MIRABEGRON 25 MG TAB.ER.24H PO SCH (08:08)
[2020-07-07] MEDS: DICYCLOMINE HCL 20 MG TABLET PO SCH ×3 (08:09→19:45)
[2020-07-07] MEDS: FUROSEMIDE 20 MG TABLET PO SCH ×2 (08:09→14:59)
[2020-07-07] MEDS: DULoxetine HCL 30 MG CAPSULE.DR PO SCH ×2 (08:09→19:46)
[2020-07-07] MEDS: LIPASE/PROTEAS/AMYLAS 10/32/42 CAPSULE.DR. PO SCH ×3 (08:09→16:48)
[2020-07-07] MEDS: POTASSIUM CHLORIDE 20 MEQ TABLET.ER. PO SCH (08:09)
[2020-07-07] MEDS: PANTOPRAZOLE 40 MG TABLET. PO SCH (08:10)
[2020-07-07] MEDS: levETIRAcetam 500 MG TABLET PO SCH ×2 (08:10→19:46)
[2020-07-07] MEDS: MAGNESIUM OXIDE 400 MG TABLET PO SCH (08:11)
[2020-07-07] MEDS: IPRATROPIUM/ALBUTEROL 20/100mcg/INH INHALER. INH SCH ×4 (08:11→19:45)
[2020-07-07] MEDS: NYSTATIN TOPICAL POWDER 15GM BOTTLE. TP SCH ×2 (08:11→19:45)
[2020-07-07] MEDS: FLUTICASONE 50MCG/NASAL SPRAY 16GM BOTTLE. NS SCH (08:11)
[2020-07-07] MEDS: clonazePAM 1 MG TABLET PO SCH ×3 (08:13→19:46)
[2020-07-07] MEDS: GABAPENTIN 300 MG CAPSULE. PO SCH ×4 (08:13→19:46)
[2020-07-07] MEDS: HYDROXYUREA 500 MG CAPSULE PO SCH (08:14)
--- NOTE | 2020-07-07 08:38 | PDOC ---
Exam Note: Napoleon Note: This note is a late entry for 07/06/2020 covers elements not covered in my initial note. Subjective: The patient was seen face to face in the evening of 07/06/2020 with Hadley BARR, discussed and reviewed the chart. She slept 6 hours previous night. The patient complained of abdominal pain previous night. We will defer to Dr. Clark. Appetite is 85%. She is anxious, restless, frequently removing her oxygen. Today she has been quite obsessive wanting to call the resource conservationist to get communion. Valproic acid level is 30. Review of Systems: Shortness of breath on O2 supplements. Impaired ambulation with walker. No CV, , eye, ENT system symptoms on review. Mental Status Exam: The patient is oriented to herself and situation. Speech is coherent. Abstraction is fair. Computation is impaired. Language function is intact. Attention span is short. Mood and affect somewhat anxious, labile. Laboratory Data: Reviewed. Impression: Bipolar 1 disorder depressed with possible psychotic features. Anxiety disorder unspecified. History of major depressive disorder with psychotic features. Mild cognitive impairment. Plan: Since valproic acid level is subtherapeutic we will increase Depakote ER from 500 mg h.s. to 1000 mg h.s. Check CBC, CMP, valproic acid level in 3 days. Continue Cymbalta, Keppra, trazodone along with Zyprexa p.r.n. Assessment: Vital Signs/I&O: Vital Signs Date Time Temp Pulse Resp B/P (MAP) Pulse Ox O2 Delivery O2 Flow Rate FiO2 07/07/20 08:08 100 106/69 07/07/20 05:42 98.5 17 95 Nasal Cannula 2.0 I & O 07/06/20 07/06/20 07/07/20 15:00 23:00 07:00 Intake Total 960 ml 960 ml Balance 960 ml 960 ml Labs: Laboratory Tests Test 07/06/20 09:24 White Blood Count 6.1 x10^3/uL (4.0-11.0) Red Blood Count 3.97 x10^6/uL (3.50-5.40) Hemoglobin 12.7 g/dL (12.0-15.5) Hematocrit 39.8 % (36.0-47.0) Mean Corpuscular Volume 100 fL (79-100) Mean Corpuscular Hemoglobin 32 pg (25-35) Mean Corpuscular Hemoglobin Concent 32 g/dL (31-37) Red Cell Distribution Width 16.6 % (11.5-14.5) H Platelet Count 474 x10^3/uL (140-400) H Neutrophils (%) (Auto) 72 % (31-73) Lymphocytes (%) (Auto) 14 % (24-48) L Monocytes (%) (Auto) 6 % (0-9) Eosinophils (%) (Auto) 6 % (0-3) H Basophils (%) (Auto) 2 % (0-3) Neutrophils # (Auto) 4.3 x10^3uL (1.8-7.7) Lymphocytes # (Auto) 0.9 x10^3/uL (1.0-4.8) L Monocytes # (Auto) 0.4 x10^3/uL (0.0-1.1) Eosinophils # (Auto) 0.4 x10^3/uL (0.0-0.7) Basophils # (Auto) 0.1 x10^3/uL (0.0-0.2) Sodium Level 142 mmol/L (136-145) Potassium Level 4.2 mmol/L (3.5-5.1) Chloride Level 103 mmol/L (98-107) Carbon Dioxide Level 28 mmol/L (21-32) Anion Gap 11 (6-14) Blood Urea Nitrogen 10 mg/dL (7-20) Creatinine 0.9 mg/dL (0.6-1.0) Estimated GFR (Cockcroft-Gault) 62.3 BUN/Creatinine Ratio 11 (6-20) Glucose Level 190 mg/dL (70-99) H Calcium Level 8.9 mg/dL (8.5-10.1) Total Bilirubin 0.3 mg/dL (0.2-1.0) Aspartate Amino Transferase (AST) 14 U/L (15-37) L Alanine Aminotransferase (ALT) 15 U/L (14-59) Alkaline Phosphatase 107 U/L (46-116) Total Protein 6.7 g/dL (6.4-8.2) Albumin 2.9 g/dL (3.4-5.0) L Albumin/Globulin Ratio 0.8 (1.0-1.7) L Valproic Acid Level 30 mcg/mL (50-100) L Valproic Acid Last Dose Date 07/05/20 Valproic Acid Last Dose Time 2100 Current Medications: Meds: Laboratory Tests Test 07/06/20 09:24 White Blood Count 6.1 x10^3/uL Red Blood Count 3.97 x10^6/uL Hemoglobin 12.7 g/dL Hematocrit 39.8 % Mean Corpuscular Volume 100 fL Mean Corpuscular Hemoglobin 32 pg Mean Corpuscular Hemoglobin Concent 32 g/dL Red Cell Distribution Width 16.6 % Platelet Count 474 x10^3/uL Neutrophils (%) (Auto) 72 % Lymphocytes (%) (Auto) 14 % Monocytes (%) (Auto) 6 % Eosinophils (%) (Auto) 6 % Basophils (%) (Auto) 2 % Neutrophils # (Auto) 4.3 x10^3uL Lymphocytes # (Auto) 0.9 x10^3/uL Monocytes # (Auto) 0.4 x10^3/uL Eosinophils # (Auto) 0.4 x10^3/uL Basophils # (Auto) 0.1 x10^3/uL Sodium Level 142 mmol/L Potassium Level 4.2 mmol/L Chloride Level 103 mmol/L Carbon Dioxide Level 28 mmol/L Anion Gap 11 Blood Urea Nitrogen 10 mg/dL Creatinine 0.9 mg/dL Estimated GFR (Cockcroft-Gault) 62.3 BUN/Creatinine Ratio 11 Glucose Level 190 mg/dL Calcium Level 8.9 mg/dL Total Bilirubin 0.3 mg/dL Aspartate Amino Transf (AST/SGOT) 14 U/L Alanine Aminotransferase (ALT/SGPT) 15 U/L Alkaline Phosphatase 107 U/L Total Protein 6.7 g/dL Albumin 2.9 g/dL Albumin/Globulin Ratio 0.8 Valproic Acid (Depakene) Level 30 mcg/mL Valproic Acid Last Dose Date 07/05/20 Valproic Acid Last Dose Time 2100 Current Medications Medications (Trade) Dose Ordered Sig/Mya Route PRN Reason Start Time Stop Time Status Last Admin Dose Admin Acetaminophen (Tylenol) 650 mg PRN Q6HRS PRN PO MILD PAIN / TEMP > 100.3'F 07/02/20 10:30 Cancel Multi-Ingredient Ointment (Analgesic [place]) 1 debra PRN QID PRN TP MUSCLE PAIN 07/02/20 10:30 Al Hydroxide/Mg Hydroxide (Mylanta Plus Xs) 15 ml PRN AFTMEALHC PRN PO DYSPEPSIA 07/02/20 10:30 Magnesium Hydroxide (Milk Of Magnesia) 2,400 mg PRN QHS PRN PO 1st CHOICE CONSTIPATION 07/02/20 10:30 Acetaminophen (Tylenol) 500 mg PRN Q4HRS PRN PO mild pain or fever 07/02/20 11:45 07/05/20 14:09 Acetaminophen (Tylenol) 1,000 mg PRN Q6HRS PRN PO moderate-severe pain or fever 07/02/20 11:45 07/05/20 21:04 Bisacodyl (Dulcolax Tab) 5 mg PRN DAILY PRN PO 2ND CHOICE CONSTIPATION 07/02/20 11:45 Dicyclomine HCl (Bentyl) 20 mg TID PO 07/02/20 14:00 07/07/20 08:09 Diphenoxylate HCl/ Atropine (Lomotil) 2 tab PRN BID PRN PO DIARRHEA 07/02/20 11:45 Fluticasone Propionate (Flonase) 2 spray DAILY NS 07/03/20 09:00 07/07/20 08:11 Furosemide (Lasix) 20 mg BID92 PO 07/02/20 14:00 07/07/20 08:09 Gabapentin (Neurontin) 300 mg QID PO 07/02/20 13:00 07/07/20 08:13 Hydroxyurea (Hydrea) 1,000 mg DAILY PO 07/03/20 09:00 07/07/20 08:14 Levetiracetam (Keppra) 500 mg BID PO 07/02/20 21:00 07/07/20 08:10 Al Hydroxide/Mg Hydroxide (Mylanta Plus Xs) 15 ml PRN AFTMEALHC PRN PO DYSPEPSIA 07/02/20 11:45 UNV Nystatin (Nystop) 1 debra BID TP 07/02/20 21:00 07/07/20 08:11 Pantoprazole Sodium (Protonix) 40 mg DAILYAC PO 07/03/20 07:30 07/07/20 08:10 Potassium Chloride (Klor-Con) 40 meq DAILY PO 07/03/20 09:00 07/07/20 08:09 Sulfasalazine (Azulfidine) 500 mg TID PO 07/02/20 14:00 07/07/20 08:08 Non-Formulary Medication (Albuterol Sulfate (Albuterol Sulfate Conc Neb Soln)) 1 vial Q4HRS NEB 07/02/20 12:00 UNV Diltiazem HCl (Cardizem) 60 mg BID PO 07/02/20 21:00 07/07/20 08:08 Amylase/Lipase/ Protease (Zenpep 10,000) 2 cap TIDBFRMEAL PO 07/02/20 16:30 07/07/20 08:09 Magnesium Oxide (Magnesium Oxide) 400 mg DAILY PO 07/03/20 09:00 07/07/20 08:11 Mirabegron (Myrbetriq) 50 mg DAILY PO 07/03/20 09:00 07/07/20 08:08 Non-Formulary Medication (Umeclidinium [place] (Incruse Ellipta)) 62.5 mcg DAILY IH 07/03/20 09:00 UNV Clonazepam (KlonoPIN) 1 mg TID PO 07/02/20 14:00 07/07/20 08:13 Duloxetine HCl (Cymbalta) 30 mg BID PO 07/02/20 21:00 07/07/20 08:09 Trazodone HCl (Desyrel) 100 mg QHS PO 07/02/20 21:00 07/06/20 20:40 Albuterol/ Ipratropium (Combivent Respimat 20-100 Mcg) 1 puff RTQID INH 07/02/20 16:00 07/07/20 08:11 Albuterol Sulfate (Ventolin Hfa Inhaler) 1 puff PRN Q4HRS PRN INH SHORTNESS OF BREATH 07/02/20 13:15 07/02/20 19:59 Olanzapine (ZyPREXA ZYDIS) 2.5 mg PRN Q2HR PRN PO PSYCHOSIS 07/02/20 19:45 07/05/20 14:18 Divalproex Sodium (Depakote Er) 500 mg QHS PO 07/03/20 21:00 07/06/20 18:58 DC 07/05/20 20:16 Vitamin D (Vitamin D3) 50,000 unit WEEKLY PO 07/06/20 18:15 07/06/20 20:40 Divalproex Sodium (Depakote Er) 1,000 mg QHS PO 07/06/20 21:00 07/06/20 20:40 Current Medications Medications (Trade) Dose Ordered Sig/Mya Route PRN Reason Start Time Stop Time Status Last Admin Dose Admin Vitamin D (Vitamin D3) 50,000 unit WEEKLY PO 07/06/20 18:15 07/06/20 20:40 Divalproex Sodium (Depakote Er) 1,000 mg QHS PO 07/06/20 21:00 07/06/20 20:40 I have reviewed the current psychotropics carefully including drug interactions. Risk benefit ratio favors no change other than as noted in my dictated progress note. Diagnosis: Problems: (1) Impulse control disorder, unspecified (2) Anxiety disorder, unspecified (3) Mild cognitive impairment (4) Bipolar disorder, curr episode mixed, severe, with psychotic features (5) Major depressive disorder with psychotic features NITHIN STEVENS MD Jul 07, 2020 08:38
[2020-07-07 15:21] VITALS: BP 104/71
[2020-07-07] MEDS: ALBUTEROL SULFATE 8GM INHALER. INH PRN (15:24)
[2020-07-07] MEDS: DIVALPROEX ER 500 MG TAB.ER.24H PO SCH (19:46)
[2020-07-07] MEDS: traZODone 100 MG TABLET. PO SCH (19:46)
--- NOTE | 2020-07-07 21:05 | PDOC ---
Exam Note: [place] Note: Please also refer to the separate dictated note~for this date of service dictated separately.~Patient seen individually. Discussed the patient with Nursing staff reviewed the chart.~Reviewed interim history and current functioning. Reviewed vital signs,~Labs/ Radiology~and current medications noted below. Continue current treatment with the changes noted in the dictated addendum note Assessment: Vital Signs/I&O: Vital Signs Date Time Temp Pulse Resp B/P (MAP) Pulse Ox O2 Delivery O2 Flow Rate FiO2 07/07/20 20:05 92 114/75 07/07/20 15:21 98.4 18 97 Nasal Cannula 3.0 I & O 07/06/20 07/06/20 07/07/20 15:00 23:00 07:00 Intake Total 960 ml 960 ml Balance 960 ml 960 ml Labs: Laboratory Tests Test 07/07/20 05:30 Coronavirus (PCR) Not detected (Not Detected) Current Medications: Meds: Laboratory Tests Test 07/07/20 05:30 Coronavirus (PCR) Not detected Current Medications Medications (Trade) Dose Ordered Sig/Mya Route PRN Reason Start Time Stop Time Status Last Admin Dose Admin Acetaminophen (Tylenol) 650 mg PRN Q6HRS PRN PO MILD PAIN / TEMP > 100.3'F 07/02/20 10:30 Cancel Multi-Ingredient Ointment (Analgesic [place]) 1 debra PRN QID PRN TP MUSCLE PAIN 07/02/20 10:30 Al Hydroxide/Mg Hydroxide (Mylanta Plus Xs) 15 ml PRN AFTMEALHC PRN PO DYSPEPSIA 07/02/20 10:30 07/07/20 11:15 Magnesium Hydroxide (Milk Of Magnesia) 2,400 mg PRN QHS PRN PO 1st CHOICE CONSTIPATION 07/02/20 10:30 Acetaminophen (Tylenol) 500 mg PRN Q4HRS PRN PO mild pain or fever 07/02/20 11:45 07/05/20 14:09 Acetaminophen (Tylenol) 1,000 mg PRN Q6HRS PRN PO moderate-severe pain or fever 07/02/20 11:45 07/05/20 21:04 Bisacodyl (Dulcolax Tab) 5 mg PRN DAILY PRN PO 2ND CHOICE CONSTIPATION 07/02/20 11:45 Dicyclomine HCl (Bentyl) 20 mg TID PO 07/02/20 14:00 07/07/20 19:45 Diphenoxylate HCl/ Atropine (Lomotil) 2 tab PRN BID PRN PO DIARRHEA 07/02/20 11:45 Fluticasone Propionate (Flonase) 2 spray DAILY NS 07/03/20 09:00 07/07/20 08:11 Furosemide (Lasix) 20 mg BID92 PO 07/02/20 14:00 07/07/20 14:59 Gabapentin (Neurontin) 300 mg QID PO 07/02/20 13:00 07/07/20 19:46 Hydroxyurea (Hydrea) 1,000 mg DAILY PO 07/03/20 09:00 07/07/20 08:14 Levetiracetam (Keppra) 500 mg BID PO 07/02/20 21:00 07/07/20 19:46 Al Hydroxide/Mg Hydroxide (Mylanta Plus Xs) 15 ml PRN AFTMEALHC PRN PO DYSPEPSIA 07/02/20 11:45 UNV Nystatin (Nystop) 1 debra BID TP 07/02/20 21:00 07/07/20 19:45 Pantoprazole Sodium (Protonix) 40 mg DAILYAC PO 07/03/20 07:30 07/07/20 08:10 Potassium Chloride (Klor-Con) 40 meq DAILY PO 07/03/20 09:00 07/07/20 08:09 Sulfasalazine (Azulfidine) 500 mg TID PO 07/02/20 14:00 07/07/20 19:45 Non-Formulary Medication (Albuterol Sulfate (Albuterol Sulfate Conc Neb Soln)) 1 vial Q4HRS NEB 07/02/20 12:00 UNV Diltiazem HCl (Cardizem) 60 mg BID PO 07/02/20 21:00 07/07/20 20:05 Amylase/Lipase/ Protease (Zenpep 10,000) 2 cap TIDBFRMEAL PO 07/02/20 16:30 07/07/20 16:48 Magnesium Oxide (Magnesium Oxide) 400 mg DAILY PO 07/03/20 09:00 07/07/20 08:11 Mirabegron (Myrbetriq) 50 mg DAILY PO 07/03/20 09:00 07/07/20 08:08 Non-Formulary Medication (Umeclidinium [place] (Incruse Ellipta)) 62.5 mcg DAILY IH 07/03/20 09:00 UNV Clonazepam (KlonoPIN) 1 mg TID PO 07/02/20 14:00 07/07/20 19:46 Duloxetine HCl (Cymbalta) 30 mg BID PO 07/02/20 21:00 07/07/20 19:46 Trazodone HCl (Desyrel) 100 mg QHS PO 07/02/20 21:00 07/07/20 19:46 Albuterol/ Ipratropium (Combivent Respimat 20-100 Mcg) 1 puff RTQID INH 07/02/20 16:00 07/07/20 19:45 Albuterol Sulfate (Ventolin Hfa Inhaler) 1 puff PRN Q4HRS PRN INH SHORTNESS OF BREATH 07/02/20 13:15 07/07/20 15:24 Olanzapine (ZyPREXA ZYDIS) 2.5 mg PRN Q2HR PRN PO PSYCHOSIS 07/02/20 19:45 07/05/20 14:18 Divalproex Sodium (Depakote Er) 500 mg QHS PO 07/03/20 21:00 07/06/20 18:58 DC 07/05/20 20:16 Vitamin D (Vitamin D3) 50,000 unit WEEKLY PO 07/06/20 18:15 07/06/20 20:40 Divalproex Sodium (Depakote Er) 1,000 mg QHS PO 07/06/20 21:00 07/07/20 19:46 I have reviewed the current psychotropics carefully including drug interactions. Risk benefit ratio favors no change other than as noted in my dictated progress note. Diagnosis: Problems: (1) Impulse control disorder, unspecified (2) Anxiety disorder, unspecified (3) Major depressive disorder with psychotic features (4) COPD (chronic obstructive pulmonary disease) (5) Bipolar disorder, curr episode mixed, severe, with psychotic features (6) Mild cognitive impairment NITHIN STEVENS MD Jul 07, 2020 21:05
[2020-07-08 05:53] VITALS: BP 99/66
[2020-07-08] MEDS: FUROSEMIDE 20 MG TABLET PO SCH ×2 (08:38→12:52)
[2020-07-08] MEDS: sulfaSALAzine 500 MG TABLET PO SCH ×3 (08:38→19:54)
[2020-07-08] MEDS: PANTOPRAZOLE 40 MG TABLET. PO SCH (08:38)
[2020-07-08] MEDS: POTASSIUM CHLORIDE 20 MEQ TABLET.ER. PO SCH (08:38)
[2020-07-08] MEDS: levETIRAcetam 500 MG TABLET PO SCH ×2 (08:38→19:54)
[2020-07-08] MEDS: DICYCLOMINE HCL 20 MG TABLET PO SCH ×3 (08:38→19:54)
[2020-07-08] MEDS: LIPASE/PROTEAS/AMYLAS 10/32/42 CAPSULE.DR. PO SCH ×3 (08:39→16:53)
[2020-07-08] MEDS: dilTIAZem HCL 30 MG TABLET PO SCH ×3 (08:39→09:37)
[2020-07-08] MEDS: IPRATROPIUM/ALBUTEROL 20/100mcg/INH INHALER. INH SCH ×4 (08:40→19:54)
[2020-07-08] MEDS: FLUTICASONE 50MCG/NASAL SPRAY 16GM BOTTLE. NS SCH (08:40)
[2020-07-08] MEDS: DULoxetine HCL 30 MG CAPSULE.DR PO SCH ×2 (08:40→19:55)
[2020-07-08] MEDS: GABAPENTIN 300 MG CAPSULE. PO SCH ×4 (08:40→19:54)
[2020-07-08] MEDS: MIRABEGRON 25 MG TAB.ER.24H PO SCH (08:40)
[2020-07-08] MEDS: MAGNESIUM OXIDE 400 MG TABLET PO SCH (08:41)
[2020-07-08] MEDS: NYSTATIN TOPICAL POWDER 15GM BOTTLE. TP SCH ×2 (08:41→19:54)
[2020-07-08] MEDS: HYDROXYUREA 500 MG CAPSULE PO SCH (08:43)
[2020-07-08] MEDS: clonazePAM 1 MG TABLET PO SCH ×3 (09:00→19:55)
[2020-07-08 09:35] VITALS: BP 114/73
[2020-07-08 15:35] VITALS: BP 103/68
[2020-07-08 15:41] VITALS: BP 103/68
[2020-07-08] MEDS: traZODone 100 MG TABLET. PO SCH (19:54)
[2020-07-08] MEDS: DIVALPROEX ER 500 MG TAB.ER.24H PO SCH (19:55)
--- NOTE | 2020-07-08 20:15 | RAD ---
Exam: Left ribs with PA chest INDICATION: Left-sided chest pain TECHNIQUE: Frontal view of the chest with frontal and oblique views of the left. Comparisons: None FINDINGS: The cardiomediastinal silhouette and pulmonary vessels are within normal limits. Hazy bibasilar airspace disease. No pleural effusion. No displaced rib fractures. IMPRESSION: 1. Bibasilar atelectasis. 2. No displaced rib fractures. Electronically signed by: Frank Lee MD (07/08/2020 8:12 PM) [facility]
--- NOTE | 2020-07-08 20:50 | PDOC ---
Exam Note: [place] Note: Please also refer to the separate dictated note~for this date of service dictated separately.~Patient seen individually. Discussed the patient with Nursing staff reviewed the chart.~Reviewed interim history and current functioning. Reviewed vital signs,~Labs/ Radiology~and current medications noted below. Continue current treatment with the changes noted in the dictated addendum note Assessment: Vital Signs/I&O: Vital Signs Date Time Temp Pulse Resp B/P (MAP) Pulse Ox O2 Delivery O2 Flow Rate FiO2 07/08/20 15:41 98.7 100 16 103/68 (80) 95 Nasal Cannula 2.0 I & O 07/07/20 07/07/20 07/08/20 15:00 23:00 07:00 Intake Total 810 ml 720 ml Balance 810 ml 720 ml Current Medications: Meds: Current Medications Medications (Trade) Dose Ordered Sig/Mya Route PRN Reason Start Time Stop Time Status Last Admin Dose Admin Acetaminophen (Tylenol) 650 mg PRN Q6HRS PRN PO MILD PAIN / TEMP > 100.3'F 07/02/20 10:30 Cancel Multi-Ingredient Ointment (Analgesic [place]) 1 debra PRN QID PRN TP MUSCLE PAIN 07/02/20 10:30 Al Hydroxide/Mg Hydroxide (Mylanta Plus Xs) 15 ml PRN AFTMEALHC PRN PO DYSPEPSIA 07/02/20 10:30 07/07/20 11:15 Magnesium Hydroxide (Milk Of Magnesia) 2,400 mg PRN QHS PRN PO 1st CHOICE CONSTIPATION 07/02/20 10:30 Acetaminophen (Tylenol) 500 mg PRN Q4HRS PRN PO mild pain or fever 07/02/20 11:45 07/05/20 14:09 Acetaminophen (Tylenol) 1,000 mg PRN Q6HRS PRN PO moderate-severe pain or fever 07/02/20 11:45 07/05/20 21:04 Bisacodyl (Dulcolax Tab) 5 mg PRN DAILY PRN PO 2ND CHOICE CONSTIPATION 07/02/20 11:45 Dicyclomine HCl (Bentyl) 20 mg TID PO 07/02/20 14:00 07/08/20 19:54 Diphenoxylate HCl/ Atropine (Lomotil) 2 tab PRN BID PRN PO DIARRHEA 07/02/20 11:45 Fluticasone Propionate (Flonase) 2 spray DAILY NS 07/03/20 09:00 07/08/20 08:40 Furosemide (Lasix) 20 mg BID92 PO 07/02/20 14:00 07/08/20 12:52 Gabapentin (Neurontin) 300 mg QID PO 07/02/20 13:00 07/08/20 19:54 Hydroxyurea (Hydrea) 1,000 mg DAILY PO 07/03/20 09:00 07/08/20 08:43 Levetiracetam (Keppra) 500 mg BID PO 07/02/20 21:00 07/08/20 19:54 Al Hydroxide/Mg Hydroxide (Mylanta Plus Xs) 15 ml PRN AFTMEALHC PRN PO DYSPEPSIA 07/02/20 11:45 UNV Nystatin (Nystop) 1 debra BID TP 07/02/20 21:00 07/08/20 19:54 Pantoprazole Sodium (Protonix) 40 mg DAILYAC PO 07/03/20 07:30 07/08/20 08:38 Potassium Chloride (Klor-Con) 40 meq DAILY PO 07/03/20 09:00 07/08/20 08:38 Sulfasalazine (Azulfidine) 500 mg TID PO 07/02/20 14:00 07/08/20 19:54 Non-Formulary Medication (Albuterol Sulfate (Albuterol Sulfate Conc Neb Soln)) 1 vial Q4HRS NEB 07/02/20 12:00 UNV Diltiazem HCl (Cardizem) 60 mg BID PO 07/02/20 21:00 07/08/20 09:37 Amylase/Lipase/ Protease (Zenpep 10,000) 2 cap TIDBFRMEAL PO 07/02/20 16:30 07/08/20 16:53 Magnesium Oxide (Magnesium Oxide) 400 mg DAILY PO 07/03/20 09:00 07/08/20 08:41 Mirabegron (Myrbetriq) 50 mg DAILY PO 07/03/20 09:00 07/08/20 08:40 Non-Formulary Medication (Umeclidinium [place] (Incruse Ellipta)) 62.5 mcg DAILY IH 07/03/20 09:00 UNV Clonazepam (KlonoPIN) 1 mg TID PO 07/02/20 14:00 07/08/20 19:55 Duloxetine HCl (Cymbalta) 30 mg BID PO 07/02/20 21:00 07/08/20 19:55 Trazodone HCl (Desyrel) 100 mg QHS PO 07/02/20 21:00 07/08/20 19:54 Albuterol/ Ipratropium (Combivent Respimat 20-100 Mcg) 1 puff RTQID INH 07/02/20 16:00 07/08/20 19:54 Albuterol Sulfate (Ventolin Hfa Inhaler) 1 puff PRN Q4HRS PRN INH SHORTNESS OF BREATH 07/02/20 13:15 07/07/20 15:24 Olanzapine (ZyPREXA ZYDIS) 2.5 mg PRN Q2HR PRN PO PSYCHOSIS 07/02/20 19:45 07/05/20 14:18 Divalproex Sodium (Depakote Er) 500 mg QHS PO 07/03/20 21:00 07/06/20 18:58 DC 07/05/20 20:16 Vitamin D (Vitamin D3) 50,000 unit WEEKLY PO 07/06/20 18:15 07/06/20 20:40 Divalproex Sodium (Depakote Er) 1,000 mg QHS PO 07/06/20 21:00 07/08/20 19:55 Lidocaine (Lidoderm) 1 patch DAILY08 TD 07/09/20 08:00 I have reviewed the current psychotropics carefully including drug interactions. Risk benefit ratio favors no change other than as noted in my dictated progress note. Diagnosis: Problems: (1) Impulse control disorder, unspecified (2) Anxiety disorder, unspecified (3) Major depressive disorder with psychotic features (4) COPD (chronic obstructive pulmonary disease) (5) Bipolar disorder, curr episode mixed, severe, with psychotic features (6) Mild cognitive impairment NITHIN STEVENS MD Jul 08, 2020 20:50
[2020-07-08 20:59] VITALS: BP 112/74
[2020-07-08 21:06] VITALS: BP 120/77
[2020-07-09 05:34] VITALS: BP 119/77
[2020-07-09] MEDS: LIDOCAINE (700MG/PATCH) PATCH. TD SCH ×2 (08:00→09:19)
[2020-07-09] MEDS: clonazePAM 1 MG TABLET PO SCH ×2 (09:00→13:06)
[2020-07-09 09:12] LABS: BASO # 0.1 x10^3/uL (0.0-0.2); BASO % 1 % (0-3); EOS # 0.3 x10^3/uL (0.0-0.7); EOS % 3 % (0-3); HEMOGLOBIN 14.1 g/dL (12.0-15.5); LYMPH # 1.2 x10^3/uL (1.0-4.8); LYMPH % 12 % (24-48); MEAN CORPUSCULAR HEMOGLOBIN 32 pg (25-35); MEAN CORPUSCULAR HGB CONC 32 g/dL (31-37); MEAN CORPUSCULAR VOLUME 99 fL (79-100); MONO # 0.6 x10^3/uL (0.0-1.1); MONO % 6 % (0-9); NEUT # 7.4 x10^3uL (1.8-7.7); NEUT % 77 % (31-73); PLATELET COUNT 422 x10^3/uL (140-400); RED BLOOD COUNT 4.45 x10^6/uL (3.50-5.40); RED CELL DISTRIBUTION WIDTH 16.8 % (11.5-14.5); WHITE BLOOD COUNT 9.6 x10^3/uL (4.0-11.0)
[2020-07-09] MEDS: PANTOPRAZOLE 40 MG TABLET. PO SCH (09:18)
[2020-07-09] MEDS: IPRATROPIUM/ALBUTEROL 20/100mcg/INH INHALER. INH SCH ×4 (09:19→20:35)
[2020-07-09] MEDS: FLUTICASONE 50MCG/NASAL SPRAY 16GM BOTTLE. NS SCH (09:19)
[2020-07-09] MEDS: DICYCLOMINE HCL 20 MG TABLET PO SCH ×3 (09:20→20:35)
[2020-07-09] MEDS: sulfaSALAzine 500 MG TABLET PO SCH ×3 (09:20→20:34)
[2020-07-09] MEDS: levETIRAcetam 500 MG TABLET PO SCH ×2 (09:21→20:35)
[2020-07-09] MEDS: DULoxetine HCL 30 MG CAPSULE.DR PO SCH ×2 (09:21→20:35)
[2020-07-09] MEDS: dilTIAZem HCL 30 MG TABLET PO SCH ×2 (09:21→20:34)
[2020-07-09] MEDS: HYDROXYUREA 500 MG CAPSULE PO SCH (09:21)
[2020-07-09] MEDS: NYSTATIN TOPICAL POWDER 15GM BOTTLE. TP SCH ×2 (09:22→20:35)
[2020-07-09] MEDS: POTASSIUM CHLORIDE 20 MEQ TABLET.ER. PO SCH (09:22)
[2020-07-09] MEDS: FUROSEMIDE 20 MG TABLET PO SCH ×2 (09:22→13:07)
[2020-07-09] MEDS: MIRABEGRON 25 MG TAB.ER.24H PO SCH (09:22)
[2020-07-09] MEDS: GABAPENTIN 300 MG CAPSULE. PO SCH ×4 (09:22→20:35)
[2020-07-09] MEDS: MAGNESIUM OXIDE 400 MG TABLET PO SCH (09:25)
[2020-07-09] MEDS: LIPASE/PROTEAS/AMYLAS 10/32/42 CAPSULE.DR. PO SCH ×3 (09:25→17:24)
[2020-07-09 09:37] LABS: ALBUMIN 3.1 g/dL (3.4-5.0); ALBUMIN/GLOBULIN RATIO 0.8 (1.0-1.7); ALK PHOS 112 U/L (46-116); ALT (SGPT) 14 U/L (14-59); ANION GAP 9 (6-14); AST (SGOT) 25 U/L (15-37); BLOOD UREA NITROGEN 8 mg/dL (7-20); BUN/CREATININE RATIO 11 (6-20); CALCIUM 9.3 mg/dL (8.5-10.1); CARBON DIOXIDE 32 mmol/L (21-32); CHLORIDE 101 mmol/L (98-107); CREATININE 0.7 mg/dL (0.6-1.0); GFR 83.2; GLUCOSE 117 mg/dL (70-99); POTASSIUM 4.6 mmol/L (3.5-5.1); SODIUM 142 mmol/L (136-145); TOTAL BILIRUBIN 0.5 mg/dL (0.2-1.0); TOTAL PROTEIN 7.2 g/dL (6.4-8.2)
[2020-07-09 09:58] LABS: VAL ACID 57 mcg/mL (50-100)
[2020-07-09 15:04] LABS: PLATELET CLUMP PRESENT; PLT ESTIMATE ADEQUATE (ADEQUATE)
[2020-07-09 16:22] VITALS: BP 117/78
[2020-07-09 19:50] VITALS: BP 108/76
[2020-07-09] MEDS: traZODone 100 MG TABLET. PO SCH (20:35)
[2020-07-09] MEDS: DIVALPROEX ER 500 MG TAB.ER.24H PO SCH (20:35)
[2020-07-09] MEDS: clonazePAM 0.5 MG TABLET PO SCH (20:37)
[2020-07-09] MEDS: ACETAMINOPHEN 500 MG TABLET PO PRN (21:11)
--- NOTE | 2020-07-09 21:59 | PDOC ---
Exam Note: [place] Note: Please also refer to the separate dictated note~for this date of service dictated separately.~Patient seen individually. Discussed the patient with Nursing staff reviewed the chart.~Reviewed interim history and current functioning. Reviewed vital signs,~Labs/ Radiology~and current medications noted below. Continue current treatment with the changes noted in the dictated addendum note Assessment: Vital Signs/I&O: Vital Signs Date Time Temp Pulse Resp B/P (MAP) Pulse Ox O2 Delivery O2 Flow Rate FiO2 07/09/20 20:34 98 108/76 07/09/20 16:22 98.4 20 94 Room Air 2.0 I & O 07/08/20 07/08/20 07/09/20 14:59 22:59 06:59 Intake Total 720 ml 360 ml Balance 720 ml 360 ml Labs: Laboratory Tests Test 07/09/20 08:35 White Blood Count 9.6 x10^3/uL (4.0-11.0) Red Blood Count 4.45 x10^6/uL (3.50-5.40) Hemoglobin 14.1 g/dL (12.0-15.5) Hematocrit 44.0 % (36.0-47.0) Mean Corpuscular Volume 99 fL (79-100) Mean Corpuscular Hemoglobin 32 pg (25-35) Mean Corpuscular Hemoglobin Concent 32 g/dL (31-37) Red Cell Distribution Width 16.8 % (11.5-14.5) H Platelet Count 422 x10^3/uL (140-400) H Neutrophils (%) (Auto) 77 % (31-73) H Lymphocytes (%) (Auto) 12 % (24-48) L Monocytes (%) (Auto) 6 % (0-9) Eosinophils (%) (Auto) 3 % (0-3) Basophils (%) (Auto) 1 % (0-3) Neutrophils # (Auto) 7.4 x10^3uL (1.8-7.7) Lymphocytes # (Auto) 1.2 x10^3/uL (1.0-4.8) Monocytes # (Auto) 0.6 x10^3/uL (0.0-1.1) Eosinophils # (Auto) 0.3 x10^3/uL (0.0-0.7) Basophils # (Auto) 0.1 x10^3/uL (0.0-0.2) Platelet Estimate Adequate (ADEQUATE) Platelet Clumps, EDTA Present Sodium Level 142 mmol/L (136-145) Potassium Level 4.6 mmol/L (3.5-5.1) Chloride Level 101 mmol/L (98-107) Carbon Dioxide Level 32 mmol/L (21-32) Anion Gap 9 (6-14) Blood Urea Nitrogen 8 mg/dL (7-20) Creatinine 0.7 mg/dL (0.6-1.0) Estimated GFR (Cockcroft-Gault) 83.2 BUN/Creatinine Ratio 11 (6-20) Glucose Level 117 mg/dL (70-99) H Calcium Level 9.3 mg/dL (8.5-10.1) Total Bilirubin 0.5 mg/dL (0.2-1.0) Aspartate Amino Transferase (AST) 25 U/L (15-37) Alanine Aminotransferase (ALT) 14 U/L (14-59) Alkaline Phosphatase 112 U/L (46-116) Total Protein 7.2 g/dL (6.4-8.2) Albumin 3.1 g/dL (3.4-5.0) L Albumin/Globulin Ratio 0.8 (1.0-1.7) L Valproic Acid Level 57 mcg/mL (50-100) Valproic Acid Last Dose Date 07/08/20 Valproic Acid Last Dose Time 2100 Current Medications: Meds: Current Medications Medications (Trade) Dose Ordered Sig/Mya Route PRN Reason Start Time Stop Time Status Last Admin Dose Admin Clonazepam (KlonoPIN) 1 mg Taper 2100 PO 07/09/20 21:00 07/20/20 20:59 07/09/20 20:37 I have reviewed the current psychotropics carefully including drug interactions. Risk benefit ratio favors no change other than as noted in my dictated progress note. Diagnosis: Problems: (1) Impulse control disorder, unspecified (2) Anxiety disorder, unspecified (3) Major depressive disorder with psychotic features (4) COPD (chronic obstructive pulmonary disease) (5) Bipolar disorder, curr episode mixed, severe, with psychotic features NITHIN STEVENS MD Jul 09, 2020 21:59
[2020-07-10 05:51] VITALS: BP 112/72
[2020-07-10] MEDS: FLUTICASONE 50MCG/NASAL SPRAY 16GM BOTTLE. NS SCH (09:00)
[2020-07-10] MEDS: IPRATROPIUM/ALBUTEROL 20/100mcg/INH INHALER. INH SCH ×5 (09:00→20:20)
[2020-07-10] MEDS: PANTOPRAZOLE 40 MG TABLET. PO SCH (09:01)
[2020-07-10] MEDS: LIDOCAINE (700MG/PATCH) PATCH. TD SCH (09:01)
[2020-07-10] MEDS: DICYCLOMINE HCL 20 MG TABLET PO SCH ×4 (09:02→21:00)
[2020-07-10] MEDS: LIPASE/PROTEAS/AMYLAS 10/32/42 CAPSULE.DR. PO SCH ×3 (09:02→17:31)
[2020-07-10] MEDS: sulfaSALAzine 500 MG TABLET PO SCH ×4 (09:02→21:00)
[2020-07-10] MEDS: clonazePAM 0.5 MG TABLET PO SCH ×4 (09:03→21:00)
[2020-07-10] MEDS: dilTIAZem HCL 30 MG TABLET PO SCH ×3 (09:03→21:00)
[2020-07-10] MEDS: DULoxetine HCL 30 MG CAPSULE.DR PO SCH ×3 (09:03→21:00)
[2020-07-10] MEDS: levETIRAcetam 500 MG TABLET PO SCH ×3 (09:03→21:00)
[2020-07-10] MEDS: MAGNESIUM OXIDE 400 MG TABLET PO SCH (09:04)
[2020-07-10] MEDS: FUROSEMIDE 20 MG TABLET PO SCH ×2 (09:04→12:40)
[2020-07-10] MEDS: POTASSIUM CHLORIDE 20 MEQ TABLET.ER. PO SCH (09:04)
[2020-07-10] MEDS: MIRABEGRON 25 MG TAB.ER.24H PO SCH (09:04)
[2020-07-10] MEDS: GABAPENTIN 300 MG CAPSULE. PO SCH ×5 (09:04→21:00)
[2020-07-10] MEDS: HYDROXYUREA 500 MG CAPSULE PO SCH (09:05)
[2020-07-10] MEDS: NYSTATIN TOPICAL POWDER 15GM BOTTLE. TP SCH ×3 (10:28→21:00)
[2020-07-10 15:47] VITALS: BP 120/78
[2020-07-10 19:23] VITALS: BP 112/74
[2020-07-10] MEDS: DIVALPROEX ER 500 MG TAB.ER.24H PO SCH ×2 (20:19→21:00)
[2020-07-10] MEDS: traZODone 100 MG TABLET. PO SCH ×2 (20:19→21:00)
--- NOTE | 2020-07-10 20:54 | PDOC ---
Exam Note: [place] Note: This note is a late entry for 07/07/2020 covers elements not covered in my initial note. Subjective: The patient was seen face to face in the evening of 07/07/2020 with Cheryl BARR, discussed and reviewed the chart. She slept 8 hours previous night. Diet 100%. She was cooperative in the evening, wanting to call the supervisor heading to get communion. Review of Systems: Shortness of breath on O2 supplements. Impaired ambulation with walker. No CV, , eye, ENT system symptoms on review. Mental Status Exam: The patient is oriented to herself and situation. Speech is coherent. She is obsessed about discharge plans. I addressed with her. Abstraction is fair. Computation is impaired. Language function is intact. Mood and affect somewhat withdrawn. She totally minimizes any and all problems, behaviors noted prompting this admission. Insight is very poor. Laboratory Data: Reviewed. Impression: Bipolar 1 disorder depressed with possible psychotic features. Anxiety disorder unspecified. History of major depressive disorder with psychotic features. Mild cognitive impairment. Plan: I have currently reviewed her psychotropics. Risk-benefit ratio favors no change at this time. Dr. Alvarado is planning to gradually reduce the Keppra as we get the Depakote therapeutic. Adjust further as clinically indicated. We will check valproic acid level on 07/09/2020 and adjust the Depakote thereafter. Assessment: Vital Signs/I&O: Vital Signs Date Time Temp Pulse Resp B/P (MAP) Pulse Ox O2 Delivery O2 Flow Rate FiO2 07/10/20 20:20 96 112/74 07/10/20 15:47 97.5 95 Nasal Cannula 2.0 07/10/20 05:51 22 I & O 07/09/20 07/09/20 07/10/20 15:00 23:00 07:00 Intake Total 960 ml 840 ml Balance 960 ml 840 ml Current Medications: Meds: Current Medications Medications (Trade) Dose Ordered Sig/Mya Route PRN Reason Start Time Stop Time Status Last Admin Dose Admin Clonazepam (KlonoPIN) 0.5 mg DAILY PO 07/10/20 09:00 07/16/20 08:59 07/10/20 09:03 Clonazepam (KlonoPIN) 1 mg Taper 1400 PO 07/10/20 14:00 07/18/20 13:59 07/10/20 12:40 Clonazepam (KlonoPIN) 1 mg Taper 2100 PO 07/09/20 21:00 07/20/20 20:59 07/10/20 20:19 I have reviewed the current psychotropics carefully including drug interactions. Risk benefit ratio favors no change other than as noted in my dictated progress note. Diagnosis: Problems: (1) Impulse control disorder, unspecified (2) Anxiety disorder, unspecified (3) Major depressive disorder with psychotic features (4) COPD (chronic obstructive pulmonary disease) (5) Bipolar disorder, curr episode mixed, severe, with psychotic features NITHIN STEVENS MD Jul 10, 2020 20:54
--- NOTE | 2020-07-10 21:12 | PDOC ---
Exam Note: [place] Note: Please also refer to the separate dictated note~for this date of service dictated separately.~Patient seen individually. Discussed the patient with Nursing staff reviewed the chart.~Reviewed interim history and current functioning. Reviewed vital signs,~Labs/ Radiology~and current medications noted below. Continue current treatment with the changes noted in the dictated addendum note Assessment: Vital Signs/I&O: Vital Signs Date Time Temp Pulse Resp B/P (MAP) Pulse Ox O2 Delivery O2 Flow Rate FiO2 07/10/20 20:20 96 112/74 07/10/20 15:47 97.5 95 Nasal Cannula 2.0 07/10/20 05:51 22 I & O 0 07/09/20 07/09/20 07/10/20 15:00 23:00 07:00 Intake Total 960 ml 840 ml Balance 960 ml 840 ml Current Medications: Meds: Current Medications Medications (Trade) Dose Ordered Sig/Mya Route PRN Reason Start Time Stop Time Status Last Admin Dose Admin Clonazepam (KlonoPIN) 0.5 mg DAILY PO 07/10/20 09:00 07/16/20 08:59 07/10/20 09:03 Clonazepam (KlonoPIN) 1 mg Taper 1400 PO 07/10/20 14:00 07/18/20 13:59 07/10/20 12:40 I have reviewed the current psychotropics carefully including drug interactions. Risk benefit ratio favors no change other than as noted in my dictated progress note. Diagnosis: Problems: (1) Impulse control disorder, unspecified (2) Anxiety disorder, unspecified (3) Major depressive disorder with psychotic features (4) Bipolar disorder, curr episode mixed, severe, with psychotic features (5) Mild cognitive impairment NITHIN STEVENS MD Jul 10, 2020 21:12
--- NOTE | 2020-07-10 21:12 | PDOC ---
Exam Note: [place] Note: This note is a late entry for 07/08/2020 covers elements not covered in my initial note. Subjective: The patient was seen face to face in the evening of 07/08/2020 with Cheryl BARR, discussed and reviewed the chart. She slept 7 hours previous night. The patient remains somewhat forgetful, cooperative, calm at night. She is extremely obsessed about discharge plans. She showed little insight into the fact that we are trying to taper her Keppra since this could be worsening her mood lability but can only be done by Dr. Alvarado as we get her Depakote therapeutic which is not there yet. Despite this she is back and forth asking the nursing staff to talk to me about her discharge and then I met with her once again at the end of the evening to discuss all this. She is still adamant on discharge. I finally called Brionna BARR late at night informing her to coordinate with the family and nursing facility if they are able to take her back since the patient seems quite restless, anxious, obsessed about discharge, almost seems to be making things worse for her. Review of Systems: Shortness of breath on O2 supplements. Impaired ambulation with walker. No CV, , eye, ENT system symptoms on review. Mental Status Exam: The patient is oriented to herself and situation. Speech is coherent, repetitive. Abstraction is fair. Computation is impaired. Language function is intact. Mood and affect somewhat anxious, labile, obsessive. Laboratory Data: Reviewed. Impression: Bipolar 1 disorder depressed with possible psychotic features. Anxiety disorder unspecified. History of major depressive disorder with psychotic features. Mild cognitive impairment. Plan: No change from initial note. Check labs level on Depakote. Adjust to reach therapeutic level. Next set of labs on 07/09, then taper the Keppra. Rest unchanged for now. Assessment: Vital Signs/I&O: Vital Signs Date Time Temp Pulse Resp B/P (MAP) Pulse Ox O2 Delivery O2 Flow Rate FiO2 07/10/20 20:20 96 112/74 07/10/20 15:47 97.5 95 Nasal Cannula 2.0 07/10/20 05:51 22 I & O 07/09/20 07/09/20 07/10/20 15:00 23:00 07:00 Intake Total 960 ml 840 ml Balance 960 ml 840 ml Current Medications: Meds: Current Medications Medications (Trade) Dose Ordered Sig/Mya Route PRN Reason Start Time Stop Time Status Last Admin Dose Admin Acetaminophen (Tylenol) 650 mg PRN Q6HRS PRN PO MILD PAIN / TEMP > 100.3'F 07/02/20 10:30 Cancel Multi-Ingredient Ointment (Analgesic [place]) 1 debra PRN QID PRN TP MUSCLE PAIN 07/02/20 10:30 Al Hydroxide/Mg Hydroxide (Mylanta Plus Xs) 15 ml PRN AFTMEALHC PRN PO DYSPEPSIA 07/02/20 10:30 07/07/20 11:15 Magnesium Hydroxide (Milk Of Magnesia) 2,400 mg PRN QHS PRN PO 1st CHOICE CONSTIPATION 07/02/20 10:30 Acetaminophen (Tylenol) 500 mg PRN Q4HRS PRN PO mild pain or fever 07/02/20 11:45 07/05/20 14:09 Acetaminophen (Tylenol) 1,000 mg PRN Q6HRS PRN PO moderate-severe pain or fever 07/02/20 11:45 07/09/20 21:11 Bisacodyl (Dulcolax Tab) 5 mg PRN DAILY PRN PO 2ND CHOICE CONSTIPATION 07/02/20 11:45 Dicyclomine HCl (Bentyl) 20 mg TID PO 07/02/20 14:00 07/10/20 20:19 Diphenoxylate HCl/ Atropine (Lomotil) 2 tab PRN BID PRN PO DIARRHEA 07/02/20 11:45 Fluticasone Propionate (Flonase) 2 spray DAILY NS 07/03/20 09:00 07/10/20 09:00 Furosemide (Lasix) 20 mg BID92 PO 07/02/20 14:00 07/10/20 12:40 Gabapentin (Neurontin) 300 mg QID PO 07/02/20 13:00 07/10/20 20:19 Hydroxyurea (Hydrea) 1,000 mg DAILY PO 07/03/20 09:00 07/10/20 09:05 Levetiracetam (Keppra) 500 mg BID PO 07/02/20 21:00 07/10/20 20:19 Al Hydroxide/Mg Hydroxide (Mylanta Plus Xs) 15 ml PRN AFTMEALHC PRN PO DYSPEPSIA 07/02/20 11:45 UNV Nystatin (Nystop) 1 debra BID TP 07/02/20 21:00 07/10/20 20:20 Pantoprazole Sodium (Protonix) 40 mg DAILYAC PO 07/03/20 07:30 07/10/20 09:01 Potassium Chloride (Klor-Con) 40 meq DAILY PO 07/03/20 09:00 07/10/20 09:04 Sulfasalazine (Azulfidine) 500 mg TID PO 07/02/20 14:00 07/10/20 20:20 Non-Formulary Medication (Albuterol Sulfate (Albuterol Sulfate Conc Neb Soln)) 1 vial Q4HRS NEB 07/02/20 12:00 UNV Diltiazem HCl (Cardizem) 60 mg BID PO 07/02/20 21:00 07/10/20 20:20 Amylase/Lipase/ Protease (Zenpep 10,000) 2 cap TIDBFRMEAL PO 07/02/20 16:30 07/10/20 17:31 Magnesium Oxide (Magnesium Oxide) 400 mg DAILY PO 07/03/20 09:00 07/10/20 09:04 Mirabegron (Myrbetriq) 50 mg DAILY PO 07/03/20 09:00 07/10/20 09:04 Non-Formulary Medication (Umeclidinium [place] (Incruse Ellipta)) 62.5 mcg DAILY IH 07/03/20 09:00 UNV Clonazepam (KlonoPIN) 1 mg TID PO 07/02/20 14:00 07/09/20 15:15 DC 07/09/20 13:06 Duloxetine HCl (Cymbalta) 30 mg BID PO 07/02/20 21:00 07/10/20 20:19 Trazodone HCl (Desyrel) 100 mg QHS PO 07/02/20 21:00 07/10/20 20:19 Albuterol/ Ipratropium (Combivent Respimat 20-100 Mcg) 1 puff RTQID INH 07/02/20 16:00 07/10/20 20:20 Albuterol Sulfate (Ventolin Hfa Inhaler) 1 puff PRN Q4HRS PRN INH SHORTNESS OF BREATH 07/02/20 13:15 07/07/20 15:24 Olanzapine (ZyPREXA ZYDIS) 2.5 mg PRN Q2HR PRN PO PSYCHOSIS 07/02/20 19:45 07/05/20 14:18 Divalproex Sodium (Depakote Er) 500 mg QHS PO 07/03/20 21:00 07/06/20 18:58 DC 07/05/20 20:16 Vitamin D (Vitamin D3) 50,000 unit WEEKLY PO 07/06/20 18:15 07/06/20 20:40 Divalproex Sodium (Depakote Er) 1,000 mg QHS PO 07/06/20 21:00 07/10/20 20:19 Lidocaine (Lidoderm) 1 patch DAILY08 TD 07/09/20 08:00 07/10/20 09:01 Clonazepam (KlonoPIN) 0.5 mg DAILY PO 07/10/20 09:00 07/16/20 08:59 07/10/20 09:03 Clonazepam (KlonoPIN) 1 mg Taper 1400 PO 07/10/20 14:00 07/18/20 13:59 07/10/20 12:40 Clonazepam (KlonoPIN) 1 mg Taper 2100 PO 07/09/20 21:00 07/20/20 20:59 07/10/20 20:19 Current Medications Medications (Trade) Dose Ordered Sig/Mya Route PRN Reason Start Time Stop Time Status Last Admin Dose Admin Clonazepam (KlonoPIN) 0.5 mg DAILY PO 07/10/20 09:00 07/16/20 08:59 07/10/20 09:03 Clonazepam (KlonoPIN) 1 mg Taper 1400 PO 07/10/20 14:00 07/18/20 13:59 07/10/20 12:40 I have reviewed the current psychotropics carefully including drug interactions. Risk benefit ratio favors no change other than as noted in my dictated progress note. Diagnosis: Problems: (1) Impulse control disorder, unspecified (2) Anxiety disorder, unspecified (3) Major depressive disorder with psychotic features (4) Bipolar disorder, curr episode mixed, severe, with psychotic features (5) Mild cognitive impairment NITHIN STEVENS MD Jul 10, 2020 21:12
[2020-07-11] MEDS: DICYCLOMINE HCL 20 MG TABLET PO SCH ×3 (05:41→20:59)
[2020-07-11] MEDS: sulfaSALAzine 500 MG TABLET PO SCH ×3 (05:41→20:58)
[2020-07-11] MEDS: GABAPENTIN 300 MG CAPSULE. PO SCH ×4 (05:41→20:57)
[2020-07-11] MEDS: FUROSEMIDE 20 MG TABLET PO SCH ×2 (05:41→12:32)
[2020-07-11] MEDS: LIDOCAINE (700MG/PATCH) PATCH. TD SCH (05:41)
[2020-07-11] MEDS: NYSTATIN TOPICAL POWDER 15GM BOTTLE. TP SCH ×2 (05:41→20:57)
[2020-07-11] MEDS: LIPASE/PROTEAS/AMYLAS 10/32/42 CAPSULE.DR. PO SCH ×3 (05:41→16:41)
[2020-07-11] MEDS: levETIRAcetam 500 MG TABLET PO SCH ×2 (05:42→20:59)
[2020-07-11] MEDS: HYDROXYUREA 500 MG CAPSULE PO SCH (05:42)
[2020-07-11] MEDS: POTASSIUM CHLORIDE 20 MEQ TABLET.ER. PO SCH (05:46)
[2020-07-11] MEDS: dilTIAZem HCL 30 MG TABLET PO SCH ×2 (05:46→20:58)
[2020-07-11] MEDS: PANTOPRAZOLE 40 MG TABLET. PO SCH (05:46)
[2020-07-11] MEDS: DULoxetine HCL 30 MG CAPSULE.DR PO SCH ×2 (05:46→20:59)
[2020-07-11] MEDS: MIRABEGRON 25 MG TAB.ER.24H PO SCH (05:46)
[2020-07-11] MEDS: MAGNESIUM OXIDE 400 MG TABLET PO SCH (05:47)
[2020-07-11] MEDS: IPRATROPIUM/ALBUTEROL 20/100mcg/INH INHALER. INH SCH ×4 (05:48→20:57)
[2020-07-11] MEDS: clonazePAM 0.5 MG TABLET PO SCH ×3 (05:48→20:58)
[2020-07-11] MEDS: FLUTICASONE 50MCG/NASAL SPRAY 16GM BOTTLE. NS SCH (05:48)
[2020-07-11 05:56] VITALS: BP 126/84
[2020-07-11 12:35] VITALS: BP 116/69
[2020-07-11 16:00] VITALS: BP 128/72
--- NOTE | 2020-07-11 20:57 | PDOC ---
Exam Note: Napoleon Note: This note is a late entry for 07/09/2020 covers elements not covered in my initial note. Subjective: The patient was seen face to face in the evening of 07/09/2020 with Shweta BARR, discussed and reviewed the chart. She slept 7-3/4 hours previous night. Overall the patient is doing better. I met with her in her room at some length. She is less fixated about discharge plans. Nursing staff had paged me in the day as well and we discussed her desire to want to call the nursing facility and talk to the nurses there to convince them to have her come back over the weekend. Valproic acid level is 57. Review of Systems: Shortness of breath on O2 supplements. Impaired ambulation with walker. No CV, , eye system symptoms on review. Mental Status Exam: The patient is oriented to herself and situation. Speech i s coherent, has some latency. Abstraction is fair. Computation is impaired. Language function is intact. Attention span is short. Mood and affect somewhat withdrawn, anxious at times. Laboratory Data: Reviewed. Impression: Bipolar 1 disorder depressed with possible psychotic features. Anxiety disorder unspecified. History of major depressive disorder with psychotic features. Mild cognitive impairment. Plan: Continue current psychotropics. We will defer to Dr. Alvarado whether Keppra can be reduced gradually since Depakote is therapeutic. Klonopin is being tapered gradually as well. Adjust further as clinically indicated. Assessment: Vital Signs/I&O: Vital Signs Date Time Temp Pulse Resp B/P (MAP) Pulse Ox O2 Delivery O2 Flow Rate FiO2 07/11/20 16:00 97.8 96 20 128/72 (90) 91 2.0 07/10/20 15:47 Nasal Cannula I & O 07/10/20 07/10/20 07/11/20 15:00 23:00 07:00 Intake Total 360 ml 1200 ml Balance 360 ml 1200 ml Current Medications: Meds: Current Medications Medications (Trade) Dose Ordered Sig/Mya Route PRN Reason Start Time Stop Time Status Last Admin Dose Admin Acetaminophen (Tylenol) 650 mg PRN Q6HRS PRN PO MILD PAIN / TEMP > 100.3'F 07/02/20 10:30 Cancel Multi-Ingredient Ointment (Analgesic [place]) 1 debra PRN QID PRN TP MUSCLE PAIN 07/02/20 10:30 Al Hydroxide/Mg Hydroxide (Mylanta Plus Xs) 15 ml PRN AFTMEALHC PRN PO DYSPEPSIA 07/02/20 10:30 07/07/20 11:15 Magnesium Hydroxide (Milk Of Magnesia) 2,400 mg PRN QHS PRN PO 1st CHOICE CONSTIPATION 07/02/20 10:30 Acetaminophen (Tylenol) 500 mg PRN Q4HRS PRN PO mild pain or fever 07/02/20 11:45 07/05/20 14:09 Acetaminophen (Tylenol) 1,000 mg PRN Q6HRS PRN PO moderate-severe pain or fever 07/02/20 11:45 07/09/20 21:11 Bisacodyl (Dulcolax Tab) 5 mg PRN DAILY PRN PO 2ND CHOICE CONSTIPATION 07/02/20 11:45 Dicyclomine HCl (Bentyl) 20 mg TID PO 07/02/20 14:00 07/11/20 12:32 Diphenoxylate HCl/ Atropine (Lomotil) 2 tab PRN BID PRN PO DIARRHEA 07/02/20 11:45 Fluticasone Propionate (Flonase) 2 spray DAILY NS 07/03/20 09:00 07/11/20 05:48 Furosemide (Lasix) 20 mg BID92 PO 07/02/20 14:00 07/11/20 12:32 Gabapentin (Neurontin) 300 mg QID PO 07/02/20 13:00 07/11/20 16:41 Hydroxyurea (Hydrea) 1,000 mg DAILY PO 07/03/20 09:00 07/11/20 05:42 Levetiracetam (Keppra) 500 mg BID PO 07/02/20 21:00 07/11/20 05:42 Al Hydroxide/Mg Hydroxide (Mylanta Plus Xs) 15 ml PRN AFTMEALHC PRN PO DYSPEPSIA 07/02/20 11:45 UNV Nystatin (Nystop) 1 debra BID TP 07/02/20 21:00 07/11/20 05:41 Pantoprazole Sodium (Protonix) 40 mg DAILYAC PO 07/03/20 07:30 07/11/20 05:46 Potassium Chloride (Klor-Con) 40 meq DAILY PO 07/03/20 09:00 07/11/20 05:46 Sulfasalazine (Azulfidine) 500 mg TID PO 07/02/20 14:00 07/11/20 12:32 Non-Formulary Medication (Albuterol Sulfate (Albuterol Sulfate Conc Neb Soln)) 1 vial Q4HRS NEB 07/02/20 12:00 UNV Diltiazem HCl (Cardizem) 60 mg BID PO 07/02/20 21:00 07/11/20 05:46 Amylase/Lipase/ Protease (Zenpep 10,000) 2 cap TIDBFRMEAL PO 07/02/20 16:30 07/11/20 16:41 Magnesium Oxide (Magnesium Oxide) 400 mg DAILY PO 07/03/20 09:00 07/11/20 05:47 Mirabegron (Myrbetriq) 50 mg DAILY PO 07/03/20 09:00 07/11/20 05:46 Non-Formulary Medication (Umeclidinium [place] (Incruse Ellipta)) 62.5 mcg DAILY IH 07/03/20 09:00 UNV Clonazepam (KlonoPIN) 1 mg TID PO 07/02/20 14:00 07/09/20 15:15 DC 07/09/20 13:06 Duloxetine HCl (Cymbalta) 30 mg BID PO 07/02/20 21:00 07/11/20 05:46 Trazodone HCl (Desyrel) 100 mg QHS PO 07/02/20 21:00 07/09/20 20:35 Albuterol/ Ipratropium (Combivent Respimat 20-100 Mcg) 1 puff RTQID INH 07/02/20 16:00 07/11/20 16:41 Albuterol Sulfate (Ventolin Hfa Inhaler) 1 puff PRN Q4HRS PRN INH SHORTNESS OF BREATH 07/02/20 13:15 07/07/20 15:24 Olanzapine (ZyPREXA ZYDIS) 2.5 mg PRN Q2HR PRN PO PSYCHOSIS 07/02/20 19:45 07/05/20 14:18 Divalproex Sodium (Depakote Er) 500 mg QHS PO 07/03/20 21:00 07/06/20 18:58 DC 07/05/20 20:16 Vitamin D (Vitamin D3) 50,000 unit WEEKLY PO 07/06/20 18:15 07/06/20 20:40 Divalproex Sodium (Depakote Er) 1,000 mg QHS PO 07/06/20 21:00 07/09/20 20:35 Lidocaine (Lidoderm) 1 patch DAILY08 TD 07/09/20 08:00 07/11/20 05:41 Clonazepam (KlonoPIN) 0.5 mg DAILY PO 07/10/20 09:00 07/16/20 08:59 07/11/20 05:48 Clonazepam (KlonoPIN) 1 mg Taper 1400 PO 07/10/20 14:00 07/18/20 13:59 07/11/20 12:32 Clonazepam (KlonoPIN) 1 mg Taper 2100 PO 07/09/20 21:00 07/20/20 20:59 07/09/20 20:37 I have reviewed the current psychotropics carefully including drug interactions. Risk benefit ratio favors no change other than as noted in my dictated progress note. Diagnosis: Problems: (1) Impulse control disorder, unspecified (2) Anxiety disorder, unspecified (3) Major depressive disorder with psychotic features (4) COPD (chronic obstructive pulmonary disease) (5) Mild cognitive impairment NITHIN STEVENS MD Jul 11, 2020 20:57
[2020-07-11] MEDS: DIVALPROEX ER 500 MG TAB.ER.24H PO SCH (20:58)
[2020-07-11] MEDS: traZODone 100 MG TABLET. PO SCH (20:59)
--- NOTE | 2020-07-11 21:17 | PDOC ---
Exam Note: Napoleon Note: This note is a late entry for 07/10/2020 covers elements not covered in my initial note. Subjective: The patient was seen face to face in the evening of 07/10/2020 with Shweta BARR, discussed and reviewed the chart. She slept 7-1/2 hours previous night. The patient did well previous night and during the day, still somewhat anxious, fixated on wanting to be discharged and I processed with her, met with her in her room. Review of Systems: Shortness of breath on O2 supplements. Impaired ambulation with walker. No CV, , eye, ENT system symptoms on review. Mental Status Exam: The patient is oriented to herself and situation. Speech is coherent. Abstraction is fair. Computation is impaired. Language function is intact. Mood and affect somewhat less anxious, labile. Laboratory Data: Reviewed. Impression: Bipolar 1 disorder depressed with possible psychotic features. Anxiety disorder unspecified. History of major depressive disorder with psychotic features. Mild cognitive impairment. Plan: No change from initial note. Assessment: Vital Signs/I&O: Vital Signs Date Time Temp Pulse Resp B/P (MAP) Pulse Ox O2 Delivery O2 Flow Rate FiO2 07/11/20 20:58 96 128/72 07/11/20 16:00 97.8 20 91 2.0 07/10/20 15:47 Nasal Cannula I & O 07/10/20 07/10/20 07/11/20 15:00 23:00 07:00 Intake Total 360 ml 1200 ml Balance 360 ml 1200 ml Current Medications: Meds: Current Medications Medications (Trade) Dose Ordered Sig/Mya Route PRN Reason Start Time Stop Time Status Last Admin Dose Admin Acetaminophen (Tylenol) 650 mg PRN Q6HRS PRN PO MILD PAIN / TEMP > 100.3'F 07/02/20 10:30 Cancel Multi-Ingredient Ointment (Analgesic [place]) 1 debra PRN QID PRN TP MUSCLE PAIN 07/02/20 10:30 Al Hydroxide/Mg Hydroxide (Mylanta Plus Xs) 15 ml PRN AFTMEALHC PRN PO DYSPEPSIA 07/02/20 10:30 07/07/20 11:15 Magnesium Hydroxide (Milk Of Magnesia) 2,400 mg PRN QHS PRN PO 1st CHOICE CONSTIPATION 07/02/20 10:30 Acetaminophen (Tylenol) 500 mg PRN Q4HRS PRN PO mild pain or fever 07/02/20 11:45 07/05/20 14:09 Acetaminophen (Tylenol) 1,000 mg PRN Q6HRS PRN PO moderate-severe pain or fever 07/02/20 11:45 07/09/20 21:11 Bisacodyl (Dulcolax Tab) 5 mg PRN DAILY PRN PO 2ND CHOICE CONSTIPATION 07/02/20 11:45 Dicyclomine HCl (Bentyl) 20 mg TID PO 07/02/20 14:00 07/11/20 20:59 Diphenoxylate HCl/ Atropine (Lomotil) 2 tab PRN BID PRN PO DIARRHEA 07/02/20 11:45 Fluticasone Propionate (Flonase) 2 spray DAILY NS 07/03/20 09:00 07/11/20 05:48 Furosemide (Lasix) 20 mg BID92 PO 07/02/20 14:00 07/11/20 12:32 Gabapentin (Neurontin) 300 mg QID PO 07/02/20 13:00 07/11/20 20:57 Hydroxyurea (Hydrea) 1,000 mg DAILY PO 07/03/20 09:00 07/11/20 05:42 Levetiracetam (Keppra) 500 mg BID PO 07/02/20 21:00 07/11/20 20:59 Al Hydroxide/Mg Hydroxide (Mylanta Plus Xs) 15 ml PRN AFTMEALHC PRN PO DYSPEPSIA 07/02/20 11:45 UNV Nystatin (Nystop) 1 debra BID TP 07/02/20 21:00 07/11/20 20:57 Pantoprazole Sodium (Protonix) 40 mg DAILYAC PO 07/03/20 07:30 07/11/20 05:46 Potassium Chloride (Klor-Con) 40 meq DAILY PO 07/03/20 09:00 07/11/20 05:46 Sulfasalazine (Azulfidine) 500 mg TID PO 07/02/20 14:00 07/11/20 20:58 Non-Formulary Medication (Albuterol Sulfate (Albuterol Sulfate Conc Neb Soln)) 1 vial Q4HRS NEB 07/02/20 12:00 UNV Diltiazem HCl (Cardizem) 60 mg BID PO 07/02/20 21:00 07/11/20 20:58 Amylase/Lipase/ Protease (Zenpep 10,000) 2 cap TIDBFRMEAL PO 07/02/20 16:30 07/11/20 16:41 Magnesium Oxide (Magnesium Oxide) 400 mg DAILY PO 07/03/20 09:00 07/11/20 05:47 Mirabegron (Myrbetriq) 50 mg DAILY PO 07/03/20 09:00 07/11/20 05:46 Non-Formulary Medication (Umeclidinium [place] (Incruse Ellipta)) 62.5 mcg DAILY IH 07/03/20 09:00 UNV Clonazepam (KlonoPIN) 1 mg TID PO 07/02/20 14:00 07/09/20 15:15 DC 07/09/20 13:06 Duloxetine HCl (Cymbalta) 30 mg BID PO 07/02/20 21:00 07/11/20 20:59 Trazodone HCl (Desyrel) 100 mg QHS PO 07/02/20 21:00 07/11/20 20:59 Albuterol/ Ipratropium (Combivent Respimat 20-100 Mcg) 1 puff RTQID INH 07/02/20 16:00 07/11/20 20:57 Albuterol Sulfate (Ventolin Hfa Inhaler) 1 puff PRN Q4HRS PRN INH SHORTNESS OF BREATH 07/02/20 13:15 07/07/20 15:24 Olanzapine (ZyPREXA ZYDIS) 2.5 mg PRN Q2HR PRN PO PSYCHOSIS 07/02/20 19:45 07/05/20 14:18 Divalproex Sodium (Depakote Er) 500 mg QHS PO 07/03/20 21:00 07/06/20 18:58 DC 07/05/20 20:16 Vitamin D (Vitamin D3) 50,000 unit WEEKLY PO 07/06/20 18:15 07/06/20 20:40 Divalproex Sodium (Depakote Er) 1,000 mg QHS PO 07/06/20 21:00 07/11/20 20:58 Lidocaine (Lidoderm) 1 patch DAILY08 TD 07/09/20 08:00 07/11/20 05:41 Clonazepam (KlonoPIN) 0.5 mg DAILY PO 07/10/20 09:00 07/16/20 08:59 07/11/20 05:48 Clonazepam (KlonoPIN) 1 mg Taper 1400 PO 07/10/20 14:00 07/18/20 13:59 07/11/20 12:32 Clonazepam (KlonoPIN) 1 mg Taper 2100 PO 07/09/20 21:00 07/20/20 20:59 07/11/20 20:58 I have reviewed the current psychotropics carefully including drug interactions. Risk benefit ratio favors no change other than as noted in my dictated progress note. Diagnosis: Problems: (1) Impulse control disorder, unspecified (2) Anxiety disorder, unspecified (3) Major depressive disorder with psychotic features (4) COPD (chronic obstructive pulmonary disease) (5) Bipolar disorder, curr episode mixed, severe, with psychotic features (6) Mild cognitive impairment NITHIN STEVENS MD Jul 11, 2020 21:17
--- NOTE | 2020-07-11 21:50 | PDOC ---
Exam Note: Napoleon Note: Please also refer to the separate dictated note~for this date of service dictated separately.~Patient seen individually. Discussed the patient with Nursing staff reviewed the chart.~Reviewed interim history and current functioning. Reviewed vital signs,~Labs/ Radiology~and current medications noted below. Continue current treatment with the changes noted in the dictated addendum note Assessment: Vital Signs/I&O: Vital Signs Date Time Temp Pulse Resp B/P (MAP) Pulse Ox O2 Delivery O2 Flow Rate FiO2 07/11/20 20:58 96 128/72 07/11/20 16:00 97.8 20 91 2.0 07/10/20 15:47 Nasal Cannula I & O 07/10/20 07/10/20 07/11/20 15:00 23:00 07:00 Intake Total 360 ml 1200 ml Balance 360 ml 1200 ml Current Medications: Meds: Current Medications Medications (Trade) Dose Ordered Sig/Mya Route PRN Reason Start Time Stop Time Status Last Admin Dose Admin Acetaminophen (Tylenol) 650 mg PRN Q6HRS PRN PO MILD PAIN / TEMP > 100.3'F 07/02/20 10:30 Cancel Multi-Ingredient Ointment (Analgesic [place]) 1 debra PRN QID PRN TP MUSCLE PAIN 07/02/20 10:30 Al Hydroxide/Mg Hydroxide (Mylanta Plus Xs) 15 ml PRN AFTMEALHC PRN PO DYSPEPSIA 07/02/20 10:30 07/07/20 11:15 Magnesium Hydroxide (Milk Of Magnesia) 2,400 mg PRN QHS PRN PO 1st CHOICE CONSTIPATION 07/02/20 10:30 Acetaminophen (Tylenol) 500 mg PRN Q4HRS PRN PO mild pain or fever 07/02/20 11:45 07/05/20 14:09 Acetaminophen (Tylenol) 1,000 mg PRN Q6HRS PRN PO moderate-severe pain or fever 07/02/20 11:45 07/09/20 21:11 Bisacodyl (Dulcolax Tab) 5 mg PRN DAILY PRN PO 2ND CHOICE CONSTIPATION 07/02/20 11:45 Dicyclomine HCl (Bentyl) 20 mg TID PO 07/02/20 14:00 07/11/20 20:59 Diphenoxylate HCl/ Atropine (Lomotil) 2 tab PRN BID PRN PO DIARRHEA 07/02/20 11:45 Fluticasone Propionate (Flonase) 2 spray DAILY NS 07/03/20 09:00 07/11/20 05:48 Furosemide (Lasix) 20 mg BID92 PO 07/02/20 14:00 07/11/20 12:32 Gabapentin (Neurontin) 300 mg QID PO 07/02/20 13:00 07/11/20 20:57 Hydroxyurea (Hydrea) 1,000 mg DAILY PO 07/03/20 09:00 07/11/20 05:42 Levetiracetam (Keppra) 500 mg BID PO 07/02/20 21:00 07/11/20 20:59 Al Hydroxide/Mg Hydroxide (Mylanta Plus Xs) 15 ml PRN AFTMEALHC PRN PO DYSPEPSIA 07/02/20 11:45 UNV Nystatin (Nystop) 1 debra BID TP 07/02/20 21:00 07/11/20 20:57 Pantoprazole Sodium (Protonix) 40 mg DAILYAC PO 07/03/20 07:30 07/11/20 05:46 Potassium Chloride (Klor-Con) 40 meq DAILY PO 07/03/20 09:00 07/11/20 05:46 Sulfasalazine (Azulfidine) 500 mg TID PO 07/02/20 14:00 07/11/20 20:58 Non-Formulary Medication (Albuterol Sulfate (Albuterol Sulfate Conc Neb Soln)) 1 vial Q4HRS NEB 07/02/20 12:00 UNV Diltiazem HCl (Cardizem) 60 mg BID PO 07/02/20 21:00 07/11/20 20:58 Amylase/Lipase/ Protease (Zenpep 10,000) 2 cap TIDBFRMEAL PO 07/02/20 16:30 07/11/20 16:41 Magnesium Oxide (Magnesium Oxide) 400 mg DAILY PO 07/03/20 09:00 07/11/20 05:47 Mirabegron (Myrbetriq) 50 mg DAILY PO 07/03/20 09:00 07/11/20 05:46 Non-Formulary Medication (Umeclidinium [place] (Incruse Ellipta)) 62.5 mcg DAILY IH 07/03/20 09:00 UNV Clonazepam (KlonoPIN) 1 mg TID PO 07/02/20 14:00 07/09/20 15:15 DC 07/09/20 13:06 Duloxetine HCl (Cymbalta) 30 mg BID PO 07/02/20 21:00 07/11/20 20:59 Trazodone HCl (Desyrel) 100 mg QHS PO 07/02/20 21:00 07/11/20 20:59 Albuterol/ Ipratropium (Combivent Respimat 20-100 Mcg) 1 puff RTQID INH 07/02/20 16:00 07/11/20 20:57 Albuterol Sulfate (Ventolin Hfa Inhaler) 1 puff PRN Q4HRS PRN INH SHORTNESS OF BREATH 07/02/20 13:15 07/07/20 15:24 Olanzapine (ZyPREXA ZYDIS) 2.5 mg PRN Q2HR PRN PO PSYCHOSIS 07/02/20 19:45 07/05/20 14:18 Divalproex Sodium (Depakote Er) 500 mg QHS PO 07/03/20 21:00 07/06/20 18:58 DC 07/05/20 20:16 Vitamin D (Vitamin D3) 50,000 unit WEEKLY PO 07/06/20 18:15 07/06/20 20:40 Divalproex Sodium (Depakote Er) 1,000 mg QHS PO 07/06/20 21:00 07/11/20 20:58 Lidocaine (Lidoderm) 1 patch DAILY08 TD 07/09/20 08:00 07/11/20 05:41 Clonazepam (KlonoPIN) 0.5 mg DAILY PO 07/10/20 09:00 07/16/20 08:59 07/11/20 05:48 Clonazepam (KlonoPIN) 1 mg Taper 1400 PO 07/10/20 14:00 07/18/20 13:59 07/11/20 12:32 Clonazepam (KlonoPIN) 1 mg Taper 2100 PO 07/09/20 21:00 07/20/20 20:59 07/11/20 20:58 I have reviewed the current psychotropics carefully including drug interactions. Risk benefit ratio favors no change other than as noted in my dictated progress note. Diagnosis: Problems: (1) Impulse control disorder, unspecified (2) Anxiety disorder, unspecified (3) Major depressive disorder with psychotic features (4) COPD (chronic obstructive pulmonary disease) (5) Bipolar disorder, curr episode mixed, severe, with psychotic features (6) Mild cognitive impairment NITHIN STEVENS MD Jul 11, 2020 21:50
[2020-07-12 05:58] VITALS: BP 117/65
[2020-07-12] MEDS: IPRATROPIUM/ALBUTEROL 20/100mcg/INH INHALER. INH SCH ×4 (08:00→20:14)
[2020-07-12] MEDS: NYSTATIN TOPICAL POWDER 15GM BOTTLE. TP SCH ×2 (08:21→20:15)
[2020-07-12] MEDS: FLUTICASONE 50MCG/NASAL SPRAY 16GM BOTTLE. NS SCH (08:21)
[2020-07-12] MEDS: MAGNESIUM OXIDE 400 MG TABLET PO SCH (08:21)
[2020-07-12] MEDS: GABAPENTIN 300 MG CAPSULE. PO SCH ×4 (08:21→20:17)
[2020-07-12] MEDS: DICYCLOMINE HCL 20 MG TABLET PO SCH ×3 (08:21→20:16)
[2020-07-12] MEDS: DULoxetine HCL 30 MG CAPSULE.DR PO SCH ×2 (08:22→20:15)
[2020-07-12] MEDS: PANTOPRAZOLE 40 MG TABLET. PO SCH (08:22)
[2020-07-12] MEDS: sulfaSALAzine 500 MG TABLET PO SCH ×3 (08:22→20:15)
[2020-07-12] MEDS: POTASSIUM CHLORIDE 20 MEQ TABLET.ER. PO SCH (08:22)
[2020-07-12] MEDS: FUROSEMIDE 20 MG TABLET PO SCH ×2 (08:23→13:50)
[2020-07-12] MEDS: LIPASE/PROTEAS/AMYLAS 10/32/42 CAPSULE.DR. PO SCH ×3 (08:23→16:48)
[2020-07-12] MEDS: dilTIAZem HCL 30 MG TABLET PO SCH ×2 (08:24→20:21)
[2020-07-12] MEDS: levETIRAcetam 500 MG TABLET PO SCH ×2 (08:24→20:16)
[2020-07-12] MEDS: LIDOCAINE (700MG/PATCH) PATCH. TD SCH (08:26)
[2020-07-12] MEDS: HYDROXYUREA 500 MG CAPSULE PO SCH (08:26)
[2020-07-12] MEDS: clonazePAM 0.5 MG TABLET PO SCH ×3 (08:27→20:16)
[2020-07-12] MEDS: MIRABEGRON 25 MG TAB.ER.24H PO SCH (08:36)
[2020-07-12] MEDS: ACETAMINOPHEN 500 MG TABLET PO PRN (14:13)
--- NOTE | 2020-07-12 14:58 | TX PLAN ---
Interdisciplinary Tx Plan Admission Information Jul 02, 2020 at 10:00 Legal Status (on Admission): Voluntary DPOA/Guardian Name: Patel Moise Contact Other Contact Name: Chasity Nazario Other Contact Verified Code Status: DNR Allergies: Coded Allergies: butorphanol (Verified Allergy, Unknown, 02/13/20) cefoxitin (Verified Allergy, Unknown, 02/13/20) codeine (Verified Allergy, Unknown, 02/13/20) gluten (Verified Allergy, Unknown, 02/13/20) lactose (Verified Allergy, Unknown, 02/13/20) Diagnoses Primary Diagnosis: MDD recurrent with psychotic features Reasons for Admission: Hallucinations, Suicidal ideation, Other Problem in Patient's Words: N/A Additional Admission Comments: According to the intake, pt is hallucinating, slamming head into the wall, feels like she'd be better off , acts like she can't hear, refusing meds and cares Problems Active Problems: N/A Inactive Problems: Medication compliant Compliant with cares Pt Strengths/Limitations Ability for [place]: Fair Cognitive Functioning/Ability: Fair Communication Skills/Ability: Fair Financial Resources: Fair Insight/Judgement: Poor Intellectual Ability: Fair Physical Health: Fair Social Skills: Poor Stability in Family: Poor Stability in School/Work: Poor Verbal Skills: Fair Discharge Criteria Discharge Criteria: No need for close observ., Adequate arrangements @DC, Improved behavior, Improved mood/thought Preliminary Discharge Plan Preliminary DC Plan: Residential Special Precautions Fall Risk: Low Initial D/C Plan Pt to return to [facility] once stable. Identified Discharge Needs: Referrals sent out for higher level of care Currently Utilized Resources Currently Utilized Resources/P: Primary Care Physician Identified Problems/Hx/Goals Objectives/Short-Term Goals Short Term Goals: Dec. Hallucination/Delus, Dec. Outbursts, Medication Stabilization, Monitor Med Effects, Promote Coping Skill Short Term Goals in Patient's: "It wasn't me. I didn't do anything to get here" Interventions/Frequency Staff Interventions/Frequency&: Psychiatrist to assess pt at least 3x per week for medication management. Social to assess pt at least 2x per week for ongoing discharge planning and potential barriers to care. Nursing to monitor medication effects, behavioral management and completion of 15 minute checks. Encourage particiption in group activities (if applicable) or 1:1 engagement based off activity dept goals. 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 Education: Pt graduated high school in 1969 Community Follow-up Primary Care Physician Referral for potential psychologist services Treatment Plan Explained Patient/Blankmaker had this treatment plan explained to him/her as indicated by the signature below and has been given the opportunity to ask questions and make suggestions: Date: Patient/Blankmaker Signature: Patient/Blankmaker Decline: Yes (Pt son has little to no contact with pt or staff.) Status Update Update This is pt 2nd Interdisciplinary Treatment Team. Pt first team was held Tuesday 07/04. Pt is sleeping 7.25 hour per night and eating 95% of her meals. Pt is less obsessive about getting the phone and asking for things. Pt appears to have control over her behaviors and has extreme lack of insight. Pt is using multiple lidocaine patches for pain and has full engagement in groups. Pt will need to have a final assessment with the neurologist about decreasing the Keppra. If there are not immediate concerns, pt can look towards discharging on or Saturday. Otherwise, pt can discharge early next week. OK BAUTISTA Jul 12, 2020 14:58
[2020-07-12 15:54] VITALS: BP 97/62
[2020-07-12] MEDS: DIVALPROEX ER 500 MG TAB.ER.24H PO SCH (20:16)
[2020-07-12] MEDS: traZODone 100 MG TABLET. PO SCH (20:16)
--- NOTE | 2020-07-12 20:55 | PDOC ---
Exam Note: Napoleon Note: Please also refer to the separate dictated note~for this date of service dictated separately.~Patient seen individually. Discussed the patient with Nursing staff reviewed the chart.~Reviewed interim history and current functioning. Reviewed vital signs,~Labs/ Radiology~and current medications noted below. Continue current treatment with the changes noted in the dictated addendum note Assessment: Vital Signs/I&O: Vital Signs Date Time Temp Pulse Resp B/P (MAP) Pulse Ox O2 Delivery O2 Flow Rate FiO2 07/12/20 20:21 90 102/60 07/12/20 15:54 98.0 16 92 2.0 07/10/20 15:47 Nasal Cannula I & O 07/11/20 07/11/20 07/12/20 15:00 23:00 07:00 Intake Total 720 ml 480 ml Balance 720 ml 480 ml Current Medications: Meds: Current Medications Medications (Trade) Dose Ordered Sig/Mya Route PRN Reason Start Time Stop Time Status Last Admin Dose Admin Acetaminophen (Tylenol) 650 mg PRN Q6HRS PRN PO MILD PAIN / TEMP > 100.3'F 07/02/20 10:30 Cancel Multi-Ingredient Ointment (Analgesic [place]) 1 debra PRN QID PRN TP MUSCLE PAIN 07/02/20 10:30 Al Hydroxide/Mg Hydroxide (Mylanta Plus Xs) 15 ml PRN AFTMEALHC PRN PO DYSPEPSIA 07/02/20 10:30 07/07/20 11:15 Magnesium Hydroxide (Milk Of Magnesia) 2,400 mg PRN QHS PRN PO 1st CHOICE CONSTIPATION 07/02/20 10:30 Acetaminophen (Tylenol) 500 mg PRN Q4HRS PRN PO mild pain or fever 07/02/20 11:45 07/12/20 14:13 Acetaminophen (Tylenol) 1,000 mg PRN Q6HRS PRN PO moderate-severe pain or fever 07/02/20 11:45 07/09/20 21:11 Bisacodyl (Dulcolax Tab) 5 mg PRN DAILY PRN PO 2ND CHOICE CONSTIPATION 07/02/20 11:45 Dicyclomine HCl (Bentyl) 20 mg TID PO 07/02/20 14:00 07/12/20 20:16 Diphenoxylate HCl/ Atropine (Lomotil) 2 tab PRN BID PRN PO DIARRHEA 07/02/20 11:45 Fluticasone Propionate (Flonase) 2 spray DAILY NS 07/03/20 09:00 07/12/20 08:21 Furosemide (Lasix) 20 mg BID92 PO 07/02/20 14:00 07/12/20 13:50 Gabapentin (Neurontin) 300 mg QID PO 07/02/20 13:00 07/12/20 20:17 Hydroxyurea (Hydrea) 1,000 mg DAILY PO 07/03/20 09:00 07/12/20 08:26 Levetiracetam (Keppra) 500 mg BID PO 07/02/20 21:00 07/12/20 20:16 Al Hydroxide/Mg Hydroxide (Mylanta Plus Xs) 15 ml PRN AFTMEALHC PRN PO DYSPEPSIA 07/02/20 11:45 UNV Nystatin (Nystop) 1 debra BID TP 07/02/20 21:00 07/12/20 20:15 Pantoprazole Sodium (Protonix) 40 mg DAILYAC PO 07/03/20 07:30 07/12/20 08:22 Potassium Chloride (Klor-Con) 40 meq DAILY PO 07/03/20 09:00 07/12/20 08:22 Sulfasalazine (Azulfidine) 500 mg TID PO 07/02/20 14:00 07/12/20 20:15 Non-Formulary Medication (Albuterol Sulfate (Albuterol Sulfate Conc Neb Soln)) 1 vial Q4HRS NEB 07/02/20 12:00 UNV Diltiazem HCl (Cardizem) 60 mg BID PO 07/02/20 21:00 07/12/20 20:21 Amylase/Lipase/ Protease (Zenpep 10,000) 2 cap TIDBFRMEAL PO 07/02/20 16:30 07/12/20 16:48 Magnesium Oxide (Magnesium Oxide) 400 mg DAILY PO 07/03/20 09:00 07/12/20 08:21 Mirabegron (Myrbetriq) 50 mg DAILY PO 07/03/20 09:00 07/12/20 08:36 Non-Formulary Medication (Umeclidinium [place] (Incruse Ellipta)) 62.5 mcg DAILY IH 07/03/20 09:00 UNV Clonazepam (KlonoPIN) 1 mg TID PO 07/02/20 14:00 07/09/20 15:15 DC 07/09/20 13:06 Duloxetine HCl (Cymbalta) 30 mg BID PO 07/02/20 21:00 07/12/20 20:15 Trazodone HCl (Desyrel) 100 mg QHS PO 07/02/20 21:00 07/12/20 20:16 Albuterol/ Ipratropium (Combivent Respimat 20-100 Mcg) 1 puff RTQID INH 07/02/20 16:00 07/12/20 20:14 Albuterol Sulfate (Ventolin Hfa Inhaler) 1 puff PRN Q4HRS PRN INH SHORTNESS OF BREATH 07/02/20 13:15 07/07/20 15:24 Olanzapine (ZyPREXA ZYDIS) 2.5 mg PRN Q2HR PRN PO PSYCHOSIS 07/02/20 19:45 07/05/20 14:18 Divalproex Sodium (Depakote Er) 500 mg QHS PO 07/03/20 21:00 07/06/20 18:58 DC 07/05/20 20:16 Vitamin D (Vitamin D3) 50,000 unit WEEKLY PO 07/06/20 18:15 07/06/20 20:40 Divalproex Sodium (Depakote Er) 1,000 mg QHS PO 07/06/20 21:00 07/12/20 20:16 Lidocaine (Lidoderm) 1 patch DAILY08 TD 07/09/20 08:00 07/12/20 08:26 Clonazepam (KlonoPIN) 0.5 mg DAILY PO 07/10/20 09:00 07/16/20 08:59 07/12/20 08:27 Clonazepam (KlonoPIN) 0.5 mg Taper 1400 PO 07/10/20 14:00 07/18/20 13:59 07/12/20 13:50 Clonazepam (KlonoPIN) 1 mg Taper 2100 PO 07/09/20 21:00 07/20/20 20:59 07/12/20 20:16 I have reviewed the current psychotropics carefully including drug interactions. Risk benefit ratio favors no change other than as noted in my dictated progress note. Diagnosis: Problems: (1) Impulse control disorder, unspecified (2) Anxiety disorder, unspecified (3) Major depressive disorder with psychotic features (4) COPD (chronic obstructive pulmonary disease) (5) Bipolar disorder, curr episode mixed, severe, with psychotic features (6) Mild cognitive impairment NITHIN STEVENS MD Jul 12, 2020 20:55
[2020-07-13 06:01] VITALS: BP 107/70
[2020-07-13] MEDS: DULoxetine HCL 30 MG CAPSULE.DR PO SCH ×2 (08:08→20:16)
[2020-07-13] MEDS: GABAPENTIN 300 MG CAPSULE. PO SCH ×4 (08:08→20:14)
[2020-07-13] MEDS: clonazePAM 0.5 MG TABLET PO SCH ×3 (08:08→20:16)
[2020-07-13] MEDS: DICYCLOMINE HCL 20 MG TABLET PO SCH ×3 (08:08→20:17)
[2020-07-13] MEDS: FUROSEMIDE 20 MG TABLET PO SCH ×2 (08:08→15:13)
[2020-07-13] MEDS: levETIRAcetam 500 MG TABLET PO SCH ×2 (08:09→20:16)
[2020-07-13] MEDS: LIPASE/PROTEAS/AMYLAS 10/32/42 CAPSULE.DR. PO SCH ×3 (08:09→16:33)
[2020-07-13] MEDS: PANTOPRAZOLE 40 MG TABLET. PO SCH (08:10)
[2020-07-13] MEDS: POTASSIUM CHLORIDE 20 MEQ TABLET.ER. PO SCH (08:10)
[2020-07-13] MEDS: dilTIAZem HCL 30 MG TABLET PO SCH ×2 (08:11→20:15)
[2020-07-13] MEDS: LIDOCAINE (700MG/PATCH) PATCH. TD SCH (08:11)
[2020-07-13] MEDS: MAGNESIUM OXIDE 400 MG TABLET PO SCH (08:12)
[2020-07-13] MEDS: CHOLECALCIFEROL (VITAMIN D3) 50,000 UNIT CAPSULE PO SCH (08:16)
[2020-07-13] MEDS: MIRABEGRON 25 MG TAB.ER.24H PO SCH (08:16)
[2020-07-13] MEDS: FLUTICASONE 50MCG/NASAL SPRAY 16GM BOTTLE. NS SCH (08:18)
[2020-07-13] MEDS: IPRATROPIUM/ALBUTEROL 20/100mcg/INH INHALER. INH SCH ×4 (08:18→20:14)
[2020-07-13] MEDS: HYDROXYUREA 500 MG CAPSULE PO SCH (08:18)
[2020-07-13] MEDS: sulfaSALAzine 500 MG TABLET PO SCH ×3 (08:19→20:18)
[2020-07-13] MEDS: NYSTATIN TOPICAL POWDER 15GM BOTTLE. TP SCH ×2 (08:58→20:14)
--- NOTE | 2020-07-13 09:44 | PDOC ---
Exam Note: Napoleon Note: This note is a late entry for 07/11/2020 covers elements not covered in my initial note. Subjective: The patient was seen face to face in the evening of 07/11/2020 with Shweta BARR, discussed and reviewed the chart. She slept 9-1/4 hours previous night. She is still fixated very obsessive, kind of convinced me that she needs to be discharged. We had a lengthy discussion about this. Insight remains limited as she does not even admit to any aspect of the incident prompting the referral from the longterm. Essentially she is seeing the staff there had fabricated the entire incident. She believes the previous hospitalization was also prompted due to an erroneous observation by staff members. Review of Systems: Shortness of breath on O2 supplements. Impaired ambulation with walker. No CV, , eye, ENT system symptoms on review. Mental Status Exam: The patient is reasonably oriented. Speech is coherent. Abstraction is fair. Computation is impaired. Language function is intact. Mood and affect somewhat anxious, labile. Laboratory Data: Reviewed. Impression: Bipolar 1 disorder depressed with possible psychotic features. Anxiety disorder unspecified. History of major depressive disorder with psychotic features. Mild cognitive impairment. Plan: No change from initial note. We are awaiting Neurology consult with Dr. Alvarado to make a determination whether Keppra can be tapered and valproic acid level is therapeutic. We may need to taper Klonopin as well. Assessment: Vital Signs/I&O: Vital Signs Date Time Temp Pulse Resp B/P (MAP) Pulse Ox O2 Delivery O2 Flow Rate FiO2 07/13/20 08:11 95 107/70 07/13/20 06:01 97.3 18 90 2.0 07/10/20 15:47 Nasal Cannula I & O 07/12/20 07/12/20 07/13/20 15:00 23:00 07:00 Intake Total 840 ml 480 ml Balance 840 ml 480 ml Current Medications: Meds: Current Medications Medications (Trade) Dose Ordered Sig/Mya Route PRN Reason Start Time Stop Time Status Last Admin Dose Admin Acetaminophen (Tylenol) 650 mg PRN Q6HRS PRN PO MILD PAIN / TEMP > 100.3'F 07/02/20 10:30 Cancel Multi-Ingredient Ointment (Analgesic [place]) 1 debra PRN QID PRN TP MUSCLE PAIN 07/02/20 10:30 Al Hydroxide/Mg Hydroxide (Mylanta Plus Xs) 15 ml PRN AFTMEALHC PRN PO DYSPEPSIA 07/02/20 10:30 07/07/20 11:15 Magnesium Hydroxide (Milk Of Magnesia) 2,400 mg PRN QHS PRN PO 1st CHOICE CONSTIPATION 07/02/20 10:30 Acetaminophen (Tylenol) 500 mg PRN Q4HRS PRN PO mild pain or fever 07/02/20 11:45 07/12/20 14:13 Acetaminophen (Tylenol) 1,000 mg PRN Q6HRS PRN PO moderate-severe pain or fever 07/02/20 11:45 07/09/20 21:11 Bisacodyl (Dulcolax Tab) 5 mg PRN DAILY PRN PO 2ND CHOICE CONSTIPATION 07/02/20 11:45 Dicyclomine HCl (Bentyl) 20 mg TID PO 07/02/20 14:00 07/13/20 08:08 Diphenoxylate HCl/ Atropine (Lomotil) 2 tab PRN BID PRN PO DIARRHEA 07/02/20 11:45 Fluticasone Propionate (Flonase) 2 spray DAILY NS 07/03/20 09:00 07/13/20 08:18 Furosemide (Lasix) 20 mg BID92 PO 07/02/20 14:00 07/13/20 08:08 Gabapentin (Neurontin) 300 mg QID PO 07/02/20 13:00 07/13/20 08:08 Hydroxyurea (Hydrea) 1,000 mg DAILY PO 07/03/20 09:00 07/13/20 08:18 Levetiracetam (Keppra) 500 mg BID PO 07/02/20 21:00 07/13/20 08:09 Al Hydroxide/Mg Hydroxide (Mylanta Plus Xs) 15 ml PRN AFTMEALHC PRN PO DYSPEPSIA 07/02/20 11:45 UNV Nystatin (Nystop) 1 debra BID TP 07/02/20 21:00 07/13/20 08:58 Pantoprazole Sodium (Protonix) 40 mg DAILYAC PO 07/03/20 07:30 07/13/20 08:10 Potassium Chloride (Klor-Con) 40 meq DAILY PO 07/03/20 09:00 07/13/20 08:10 Sulfasalazine (Azulfidine) 500 mg TID PO 07/02/20 14:00 07/13/20 08:19 Non-Formulary Medication (Albuterol Sulfate (Albuterol Sulfate Conc Neb Soln)) 1 vial Q4HRS NEB 07/02/20 12:00 UNV Diltiazem HCl (Cardizem) 60 mg BID PO 07/02/20 21:00 07/13/20 08:11 Amylase/Lipase/ Protease (Zenpep 10,000) 2 cap TIDBFRMEAL PO 07/02/20 16:30 07/13/20 08:09 Magnesium Oxide (Magnesium Oxide) 400 mg DAILY PO 07/03/20 09:00 07/13/20 08:12 Mirabegron (Myrbetriq) 50 mg DAILY PO 07/03/20 09:00 07/13/20 08:16 Non-Formulary Medication (Umeclidinium [place] (Incruse Ellipta)) 62.5 mcg DAILY IH 07/03/20 09:00 UNV Clonazepam (KlonoPIN) 1 mg TID PO 07/02/20 14:00 07/09/20 15:15 DC 07/09/20 13:06 Duloxetine HCl (Cymbalta) 30 mg BID PO 07/02/20 21:00 07/13/20 08:08 Trazodone HCl (Desyrel) 100 mg QHS PO 07/02/20 21:00 07/12/20 20:16 Albuterol/ Ipratropium (Combivent Respimat 20-100 Mcg) 1 puff RTQID INH 07/02/20 16:00 07/13/20 08:18 Albuterol Sulfate (Ventolin Hfa Inhaler) 1 puff PRN Q4HRS PRN INH SHORTNESS OF BREATH 07/02/20 13:15 07/07/20 15:24 Olanzapine (ZyPREXA ZYDIS) 2.5 mg PRN Q2HR PRN PO PSYCHOSIS 07/02/20 19:45 07/05/20 14:18 Divalproex Sodium (Depakote Er) 500 mg QHS PO 07/03/20 21:00 07/06/20 18:58 DC 07/05/20 20:16 Vitamin D (Vitamin D3) 50,000 unit WEEKLY PO 07/06/20 18:15 07/13/20 08:16 Divalproex Sodium (Depakote Er) 1,000 mg QHS PO 07/06/20 21:00 07/12/20 20:16 Lidocaine (Lidoderm) 1 patch DAILY08 TD 07/09/20 08:00 07/13/20 08:11 Clonazepam (KlonoPIN) 0.5 mg DAILY PO 07/10/20 09:00 07/16/20 08:59 07/13/20 08:08 Clonazepam (KlonoPIN) 0.5 mg Taper 1400 PO 07/10/20 14:00 07/18/20 13:59 07/12/20 13:50 Clonazepam (KlonoPIN) 1 mg Taper 2100 PO 07/09/20 21:00 07/20/20 20:59 07/12/20 20:16 I have reviewed the current psychotropics carefully including drug interactions. Risk benefit ratio favors no change other than as noted in my dictated progress note. Diagnosis: Problems: (1) Impulse control disorder, unspecified (2) Anxiety disorder, unspecified (3) Major depressive disorder with psychotic features (4) COPD (chronic obstructive pulmonary disease) (5) Bipolar disorder, curr episode mixed, severe, with psychotic features (6) Mild cognitive impairment NITHIN STEVENS MD Jul 13, 2020 09:44
[2020-07-13] MEDS: ACETAMINOPHEN 500 MG TABLET PO PRN ×2 (10:08→16:33)
--- NOTE | 2020-07-13 10:15 | PDOC ---
Exam Note: Napoleon Note: This note is a late entry for 07/12/2020 covers elements not covered in my initial note. Subjective: The patient was seen face to face in the morning of 07/12/2020 for a treatment team meeting with Lety Farley and Archana (oncology social work), Jodie Caban and Bessy, activity therapy and Cheryl BARR, discussed and reviewed the chart. She slept 9 hours previous night. Valproic acid level is therapeutic at 57. We are awaiting for Dr. Alvarado to make a decision on tapering the Keppra or not. Review of Systems: Shortness of breath on O2 supplements. Impaired ambulation with walker. No CV, , eye, ENT system symptoms on review. Complains of pain in her knees and wrist. Mental Status Exam: The patient is reasonably oriented. Speech is coherent. Abstraction is fair. Computation is impaired. Language function is intact. Mood and affect somewhat anxious, labile. Laboratory Data: Reviewed. Impression: Bipolar 1 disorder depressed with possible psychotic features. Anxiety disorder unspecified. History of major depressive disorder with psychotic features. Mild cognitive impairment. Plan: The patient is obsessed regarding discharge. I addressed with her that from a psychiatric standpoint, we could transition her but we are awaiting input from Dr. Alvarado regarding Keppra. Assessment: Vital Signs/I&O: Vital Signs Date Time Temp Pulse Resp B/P (MAP) Pulse Ox O2 Delivery O2 Flow Rate FiO2 07/13/20 08:11 95 107/70 07/13/20 06:01 97.3 18 90 2.0 07/10/20 15:47 Nasal Cannula I & O 07/12/20 07/12/20 07/13/20 15:00 23:00 07:00 Intake Total 840 ml 480 ml Balance 840 ml 480 ml Current Medications: Meds: Current Medications Medications (Trade) Dose Ordered Sig/Mya Route PRN Reason Start Time Stop Time Status Last Admin Dose Admin Acetaminophen (Tylenol) 650 mg PRN Q6HRS PRN PO MILD PAIN / TEMP > 100.3'F 07/02/20 10:30 Cancel Multi-Ingredient Ointment (Analgesic [place]) 1 debra PRN QID PRN TP MUSCLE PAIN 07/02/20 10:30 Al Hydroxide/Mg Hydroxide (Mylanta Plus Xs) 15 ml PRN AFTMEALHC PRN PO DYSPEPSIA 07/02/20 10:30 07/07/20 11:15 Magnesium Hydroxide (Milk Of Magnesia) 2,400 mg PRN QHS PRN PO 1st CHOICE CONSTIPATION 07/02/20 10:30 Acetaminophen (Tylenol) 500 mg PRN Q4HRS PRN PO mild pain or fever 07/02/20 11:45 07/12/20 14:13 Acetaminophen (Tylenol) 1,000 mg PRN Q6HRS PRN PO moderate-severe pain or fever 07/02/20 11:45 07/13/20 10:08 Bisacodyl (Dulcolax Tab) 5 mg PRN DAILY PRN PO 2ND CHOICE CONSTIPATION 07/02/20 11:45 Dicyclomine HCl (Bentyl) 20 mg TID PO 07/02/20 14:00 07/13/20 08:08 Diphenoxylate HCl/ Atropine (Lomotil) 2 tab PRN BID PRN PO DIARRHEA 07/02/20 11:45 Fluticasone Propionate (Flonase) 2 spray DAILY NS 07/03/20 09:00 07/13/20 08:18 Furosemide (Lasix) 20 mg BID92 PO 07/02/20 14:00 07/13/20 08:08 Gabapentin (Neurontin) 300 mg QID PO 07/02/20 13:00 07/13/20 08:08 Hydroxyurea (Hydrea) 1,000 mg DAILY PO 07/03/20 09:00 07/13/20 08:18 Levetiracetam (Keppra) 500 mg BID PO 07/02/20 21:00 07/13/20 08:09 Al Hydroxide/Mg Hydroxide (Mylanta Plus Xs) 15 ml PRN AFTMEALHC PRN PO DYSPEPSIA 07/02/20 11:45 UNV Nystatin (Nystop) 1 debra BID TP 07/02/20 21:00 07/13/20 08:58 Pantoprazole Sodium (Protonix) 40 mg DAILYAC PO 07/03/20 07:30 07/13/20 08:10 Potassium Chloride (Klor-Con) 40 meq DAILY PO 07/03/20 09:00 07/13/20 08:10 Sulfasalazine (Azulfidine) 500 mg TID PO 07/02/20 14:00 07/13/20 08:19 Non-Formulary Medication (Albuterol Sulfate (Albuterol Sulfate Conc Neb Soln)) 1 vial Q4HRS NEB 07/02/20 12:00 UNV Diltiazem HCl (Cardizem) 60 mg BID PO 07/02/20 21:00 07/13/20 08:11 Amylase/Lipase/ Protease (Zenpep 10,000) 2 cap TIDBFRMEAL PO 07/02/20 16:30 07/13/20 08:09 Magnesium Oxide (Magnesium Oxide) 400 mg DAILY PO 07/03/20 09:00 07/13/20 08:12 Mirabegron (Myrbetriq) 50 mg DAILY PO 07/03/20 09:00 07/13/20 08:16 Non-Formulary Medication (Umeclidinium [place] (Incruse Ellipta)) 62.5 mcg DAILY IH 07/03/20 09:00 UNV Clonazepam (KlonoPIN) 1 mg TID PO 07/02/20 14:00 07/09/20 15:15 DC 07/09/20 13:06 Duloxetine HCl (Cymbalta) 30 mg BID PO 07/02/20 21:00 07/13/20 08:08 Trazodone HCl (Desyrel) 100 mg QHS PO 07/02/20 21:00 07/12/20 20:16 Albuterol/ Ipratropium (Combivent Respimat 20-100 Mcg) 1 puff RTQID INH 07/02/20 16:00 07/13/20 08:18 Albuterol Sulfate (Ventolin Hfa Inhaler) 1 puff PRN Q4HRS PRN INH SHORTNESS OF BREATH 07/02/20 13:15 07/07/20 15:24 Olanzapine (ZyPREXA ZYDIS) 2.5 mg PRN Q2HR PRN PO PSYCHOSIS 07/02/20 19:45 07/05/20 14:18 Divalproex Sodium (Depakote Er) 500 mg QHS PO 07/03/20 21:00 07/06/20 18:58 DC 07/05/20 20:16 Vitamin D (Vitamin D3) 50,000 unit WEEKLY PO 07/06/20 18:15 07/13/20 08:16 Divalproex Sodium (Depakote Er) 1,000 mg QHS PO 07/06/20 21:00 07/12/20 20:16 Lidocaine (Lidoderm) 1 patch DAILY08 TD 07/09/20 08:00 07/13/20 08:11 Clonazepam (KlonoPIN) 0.5 mg DAILY PO 07/10/20 09:00 07/16/20 08:59 07/13/20 08:08 Clonazepam (KlonoPIN) 0.5 mg Taper 1400 PO 07/10/20 14:00 07/18/20 13:59 07/12/20 13:50 Clonazepam (KlonoPIN) 1 mg Taper 2100 PO 07/09/20 21:00 07/20/20 20:59 07/12/20 20:16 I have reviewed the current psychotropics carefully including drug interactions. Risk benefit ratio favors no change other than as noted in my dictated progress note. Diagnosis: Problems: (1) Impulse control disorder, unspecified (2) Anxiety disorder, unspecified (3) Major depressive disorder with psychotic features (4) COPD (chronic obstructive pulmonary disease) (5) Bipolar disorder, curr episode mixed, severe, with psychotic features (6) Mild cognitive impairment NITHIN STEVENS MD Jul 13, 2020 10:15
[2020-07-13 15:22] VITALS: BP 114/72
[2020-07-13] MEDS: traZODone 100 MG TABLET. PO SCH (20:15)
[2020-07-13] MEDS: DIVALPROEX ER 500 MG TAB.ER.24H PO SCH (20:16)
--- NOTE | 2020-07-13 21:00 | PDOC ---
Exam Note: Napoleon Note: Please also refer to the separate dictated note~for this date of service dictated separately.~Patient seen individually. Discussed the patient with Nursing staff reviewed the chart.~Reviewed interim history and current functioning. Reviewed vital signs,~Labs/ Radiology~and current medications noted below. Continue current treatment with the changes noted in the dictated addendum note Assessment: Vital Signs/I&O: Vital Signs Date Time Temp Pulse Resp B/P (MAP) Pulse Ox O2 Delivery O2 Flow Rate FiO2 07/13/20 20:15 87 114/72 07/13/20 15:22 97.1 16 91 07/13/20 06:01 2.0 07/10/20 15:47 Nasal Cannula I & O 07/12/20 07/12/20 07/13/20 15:00 23:00 07:00 Intake Total 840 ml 480 ml Balance 840 ml 480 ml Current Medications: Meds: Current Medications Medications (Trade) Dose Ordered Sig/Mya Route PRN Reason Start Time Stop Time Status Last Admin Dose Admin Acetaminophen (Tylenol) 650 mg PRN Q6HRS PRN PO MILD PAIN / TEMP > 100.3'F 07/02/20 10:30 Cancel Multi-Ingredient Ointment (Analgesic [place]) 1 debra PRN QID PRN TP MUSCLE PAIN 07/02/20 10:30 Al Hydroxide/Mg Hydroxide (Mylanta Plus Xs) 15 ml PRN AFTMEALHC PRN PO DYSPEPSIA 07/02/20 10:30 07/07/20 11:15 Magnesium Hydroxide (Milk Of Magnesia) 2,400 mg PRN QHS PRN PO 1st CHOICE CONSTIPATION 07/02/20 10:30 Acetaminophen (Tylenol) 500 mg PRN Q4HRS PRN PO mild pain or fever 07/02/20 11:45 07/12/20 14:13 Acetaminophen (Tylenol) 1,000 mg PRN Q6HRS PRN PO moderate-severe pain or fever 07/02/20 11:45 07/13/20 16:33 Bisacodyl (Dulcolax Tab) 5 mg PRN DAILY PRN PO 2ND CHOICE CONSTIPATION 07/02/20 11:45 Dicyclomine HCl (Bentyl) 20 mg TID PO 07/02/20 14:00 07/13/20 20:17 Diphenoxylate HCl/ Atropine (Lomotil) 2 tab PRN BID PRN PO DIARRHEA 07/02/20 11:45 Fluticasone Propionate (Flonase) 2 spray DAILY NS 07/03/20 09:00 07/13/20 08:18 Furosemide (Lasix) 20 mg BID92 PO 07/02/20 14:00 07/13/20 15:13 Gabapentin (Neurontin) 300 mg QID PO 07/02/20 13:00 07/13/20 20:14 Hydroxyurea (Hydrea) 1,000 mg DAILY PO 07/03/20 09:00 07/13/20 08:18 Levetiracetam (Keppra) 500 mg BID PO 07/02/20 21:00 07/13/20 20:16 Al Hydroxide/Mg Hydroxide (Mylanta Plus Xs) 15 ml PRN AFTMEALHC PRN PO DYSPEPSIA 07/02/20 11:45 UNV Nystatin (Nystop) 1 debra BID TP 07/02/20 21:00 07/13/20 20:14 Pantoprazole Sodium (Protonix) 40 mg DAILYAC PO 07/03/20 07:30 07/13/20 08:10 Potassium Chloride (Klor-Con) 40 meq DAILY PO 07/03/20 09:00 07/13/20 08:10 Sulfasalazine (Azulfidine) 500 mg TID PO 07/02/20 14:00 07/13/20 20:18 Non-Formulary Medication (Albuterol Sulfate (Albuterol Sulfate Conc Neb Soln)) 1 vial Q4HRS NEB 07/02/20 12:00 UNV Diltiazem HCl (Cardizem) 60 mg BID PO 07/02/20 21:00 07/13/20 20:15 Amylase/Lipase/ Protease (Zenpep 10,000) 2 cap TIDBFRMEAL PO 07/02/20 16:30 07/13/20 16:33 Magnesium Oxide (Magnesium Oxide) 400 mg DAILY PO 07/03/20 09:00 07/13/20 08:12 Mirabegron (Myrbetriq) 50 mg DAILY PO 07/03/20 09:00 07/13/20 08:16 Non-Formulary Medication (Umeclidinium [place] (Incruse Ellipta)) 62.5 mcg DAILY IH 07/03/20 09:00 UNV Clonazepam (KlonoPIN) 1 mg TID PO 07/02/20 14:00 07/09/20 15:15 DC 07/09/20 13:06 Duloxetine HCl (Cymbalta) 30 mg BID PO 07/02/20 21:00 07/13/20 20:16 Trazodone HCl (Desyrel) 100 mg QHS PO 07/02/20 21:00 07/13/20 20:15 Albuterol/ Ipratropium (Combivent Respimat 20-100 Mcg) 1 puff RTQID INH 07/02/20 16:00 07/13/20 20:14 Albuterol Sulfate (Ventolin Hfa Inhaler) 1 puff PRN Q4HRS PRN INH SHORTNESS OF BREATH 07/02/20 13:15 07/07/20 15:24 Olanzapine (ZyPREXA ZYDIS) 2.5 mg PRN Q2HR PRN PO PSYCHOSIS 07/02/20 19:45 07/05/20 14:18 Divalproex Sodium (Depakote Er) 500 mg QHS PO 07/03/20 21:00 07/06/20 18:58 DC 07/05/20 20:16 Vitamin D (Vitamin D3) 50,000 unit WEEKLY PO 07/06/20 18:15 07/13/20 08:16 Divalproex Sodium (Depakote Er) 1,000 mg QHS PO 07/06/20 21:00 07/13/20 20:16 Lidocaine (Lidoderm) 1 patch DAILY08 TD 07/09/20 08:00 07/13/20 08:11 Clonazepam (KlonoPIN) 0.5 mg DAILY PO 07/10/20 09:00 07/16/20 08:59 07/13/20 08:08 Clonazepam (KlonoPIN) 0.5 mg Taper 1400 PO 07/10/20 14:00 07/18/20 13:59 07/13/20 15:13 Clonazepam (KlonoPIN) 1 mg Taper 2100 PO 07/09/20 21:00 07/20/20 20:59 07/13/20 20:16 I have reviewed the current psychotropics carefully including drug interactions. Risk benefit ratio favors no change other than as noted in my dictated progress note. Diagnosis: Problems: (1) Impulse control disorder, unspecified (2) Anxiety disorder, unspecified (3) Major depressive disorder with psychotic features (4) COPD (chronic obstructive pulmonary disease) (5) Bipolar disorder, curr episode mixed, severe, with psychotic features (6) Mild cognitive impairment NITHIN STEVENS MD Jul 13, 2020 21:00
[2020-07-14 05:44] VITALS: BP 111/71
--- NOTE | 2020-07-14 07:27 | PDOC ---
Exam Note: Napoleon Note: This note is a late entry for 07/13/2020 covers elements not covered in my initial note. Subjective: The patient was seen face to face in the evening of 07/13/2020 with Cheryl RN, discussed and reviewed the chart. She slept 7-1/4 hours previous night. Reportedly per nursing staff the patient appeared more confused today, confusing the nurse and social service staff, obsessed, anxious, wanting to go home minimizing denying any problems prompting admission. Review of Systems: Shortness of breath on O2 supplements. Ambulation impaired with walker. No CV, , eye, ENT system symptoms on review. Mental Status Exam: The patient is oriented to herself and situation. Speech is coherent. Abstraction is fair. Computation is impaired. Language function is intact. Short-term memory is impaired. She remains quite obsessive, anxious about discharge. I addressed this with her. Mood and affect somewhat anxious, labile. Laboratory Data: Reviewed. Impression: Bipolar 1 disorder depressed with possible psychotic features. Anxiety disorder unspecified. History of major depressive disorder with psychotic features. Mild cognitive impairment. Plan: No change from initial note. We are awaiting Dr. Feliciano assessment whether Keppra can be tapered. We will maintain Depakote at a therapeutic level. Rest unchanged for now. Assessment: Vital Signs/I&O: Vital Signs Date Time Temp Pulse Resp B/P (MAP) Pulse Ox O2 Delivery O2 Flow Rate FiO2 07/14/20 05:44 97.3 84 16 111/71 (84) 94 07/13/20 06:01 2.0 07/10/20 15:47 Nasal Cannula I & O 07/13/20 07/13/20 07/14/20 15:00 23:00 07:00 Intake Total 720 ml 600 ml Balance 720 ml 600 ml Current Medications: Meds: Current Medications Medications (Trade) Dose Ordered Sig/Mya Route PRN Reason Start Time Stop Time Status Last Admin Dose Admin Acetaminophen (Tylenol) 650 mg PRN Q6HRS PRN PO MILD PAIN / TEMP > 100.3'F 07/02/20 10:30 Cancel Multi-Ingredient Ointment (Analgesic [place]) 1 debra PRN QID PRN TP MUSCLE PAIN 07/02/20 10:30 Al Hydroxide/Mg Hydroxide (Mylanta Plus Xs) 15 ml PRN AFTMEALHC PRN PO DYSPEPSIA 07/02/20 10:30 07/07/20 11:15 Magnesium Hydroxide (Milk Of Magnesia) 2,400 mg PRN QHS PRN PO 1st CHOICE CONSTIPATION 07/02/20 10:30 Acetaminophen (Tylenol) 500 mg PRN Q4HRS PRN PO mild pain or fever 07/02/20 11:45 07/12/20 14:13 Acetaminophen (Tylenol) 1,000 mg PRN Q6HRS PRN PO moderate-severe pain or fever 07/02/20 11:45 07/13/20 16:33 Bisacodyl (Dulcolax Tab) 5 mg PRN DAILY PRN PO 2ND CHOICE CONSTIPATION 07/02/20 11:45 Dicyclomine HCl (Bentyl) 20 mg TID PO 07/02/20 14:00 07/13/20 20:17 Diphenoxylate HCl/ Atropine (Lomotil) 2 tab PRN BID PRN PO DIARRHEA 07/02/20 11:45 Fluticasone Propionate (Flonase) 2 spray DAILY NS 07/03/20 09:00 07/13/20 08:18 Furosemide (Lasix) 20 mg BID92 PO 07/02/20 14:00 07/13/20 15:13 Gabapentin (Neurontin) 300 mg QID PO 07/02/20 13:00 07/13/20 20:14 Hydroxyurea (Hydrea) 1,000 mg DAILY PO 07/03/20 09:00 07/13/20 08:18 Levetiracetam (Keppra) 500 mg BID PO 07/02/20 21:00 07/13/20 20:16 Al Hydroxide/Mg Hydroxide (Mylanta Plus Xs) 15 ml PRN AFTMEALHC PRN PO DYSPEPSIA 07/02/20 11:45 UNV Nystatin (Nystop) 1 debra BID TP 07/02/20 21:00 07/13/20 20:14 Pantoprazole Sodium (Protonix) 40 mg DAILYAC PO 07/03/20 07:30 07/13/20 08:10 Potassium Chloride (Klor-Con) 40 meq DAILY PO 07/03/20 09:00 07/13/20 08:10 Sulfasalazine (Azulfidine) 500 mg TID PO 07/02/20 14:00 07/13/20 20:18 Non-Formulary Medication (Albuterol Sulfate (Albuterol Sulfate Conc Neb Soln)) 1 vial Q4HRS NEB 07/02/20 12:00 UNV Diltiazem HCl (Cardizem) 60 mg BID PO 07/02/20 21:00 07/13/20 20:15 Amylase/Lipase/ Protease (Zenpep 10,000) 2 cap TIDBFRMEAL PO 07/02/20 16:30 07/13/20 16:33 Magnesium Oxide (Magnesium Oxide) 400 mg DAILY PO 07/03/20 09:00 07/13/20 08:12 Mirabegron (Myrbetriq) 50 mg DAILY PO 07/03/20 09:00 07/13/20 08:16 Non-Formulary Medication (Umeclidinium [place] (Incruse Ellipta)) 62.5 mcg DAILY IH 07/03/20 09:00 UNV Clonazepam (KlonoPIN) 1 mg TID PO 07/02/20 14:00 07/09/20 15:15 DC 07/09/20 13:06 Duloxetine HCl (Cymbalta) 30 mg BID PO 07/02/20 21:00 07/13/20 20:16 Trazodone HCl (Desyrel) 100 mg QHS PO 07/02/20 21:00 07/13/20 20:15 Albuterol/ Ipratropium (Combivent Respimat 20-100 Mcg) 1 puff RTQID INH 07/02/20 16:00 07/13/20 20:14 Albuterol Sulfate (Ventolin Hfa Inhaler) 1 puff PRN Q4HRS PRN INH SHORTNESS OF BREATH 07/02/20 13:15 07/07/20 15:24 Olanzapine (ZyPREXA ZYDIS) 2.5 mg PRN Q2HR PRN PO PSYCHOSIS 07/02/20 19:45 07/05/20 14:18 Divalproex Sodium (Depakote Er) 500 mg QHS PO 07/03/20 21:00 07/06/20 18:58 DC 07/05/20 20:16 Vitamin D (Vitamin D3) 50,000 unit WEEKLY PO 07/06/20 18:15 07/13/20 08:16 Divalproex Sodium (Depakote Er) 1,000 mg QHS PO 07/06/20 21:00 07/13/20 20:16 Lidocaine (Lidoderm) 1 patch DAILY08 TD 07/09/20 08:00 07/13/20 08:11 Clonazepam (KlonoPIN) 0.5 mg DAILY PO 07/10/20 09:00 07/16/20 08:59 07/13/20 08:08 Clonazepam (KlonoPIN) 0.5 mg Taper 1400 PO 07/10/20 14:00 07/18/20 13:59 07/13/20 15:13 Clonazepam (KlonoPIN) 1 mg Taper 2100 PO 07/09/20 21:00 07/20/20 20:59 07/13/20 20:16 I have reviewed the current psychotropics carefully including drug interactions. Risk benefit ratio favors no change other than as noted in my dictated progress note. Diagnosis: Problems: (1) Impulse control disorder, unspecified (2) Anxiety disorder, unspecified (3) Major depressive disorder with psychotic features (4) COPD (chronic obstructive pulmonary disease) (5) Bipolar disorder, curr episode mixed, severe, with psychotic features (6) Mild cognitive impairment NITHIN STEVENS MD Jul 14, 2020 07:27
[2020-07-14] MEDS: MIRABEGRON 25 MG TAB.ER.24H PO SCH (07:37)
[2020-07-14] MEDS: NYSTATIN TOPICAL POWDER 15GM BOTTLE. TP SCH ×2 (07:37→20:10)
[2020-07-14] MEDS: FLUTICASONE 50MCG/NASAL SPRAY 16GM BOTTLE. NS SCH (07:37)
[2020-07-14] MEDS: LIDOCAINE (700MG/PATCH) PATCH. TD SCH (07:37)
[2020-07-14] MEDS: MAGNESIUM OXIDE 400 MG TABLET PO SCH (07:37)
[2020-07-14] MEDS: sulfaSALAzine 500 MG TABLET PO SCH ×3 (07:38→21:00)
[2020-07-14] MEDS: LIPASE/PROTEAS/AMYLAS 10/32/42 CAPSULE.DR. PO SCH ×3 (07:38→16:12)
[2020-07-14] MEDS: POTASSIUM CHLORIDE 20 MEQ TABLET.ER. PO SCH (07:38)
[2020-07-14] MEDS: PANTOPRAZOLE 40 MG TABLET. PO SCH (07:39)
[2020-07-14] MEDS: GABAPENTIN 300 MG CAPSULE. PO SCH ×4 (07:39→20:10)
[2020-07-14] MEDS: IPRATROPIUM/ALBUTEROL 20/100mcg/INH INHALER. INH SCH ×4 (07:39→20:10)
[2020-07-14] MEDS: DULoxetine HCL 30 MG CAPSULE.DR PO SCH ×2 (07:39→20:05)
[2020-07-14] MEDS: dilTIAZem HCL 30 MG TABLET PO SCH ×2 (07:39→20:05)
[2020-07-14] MEDS: FUROSEMIDE 20 MG TABLET PO SCH ×2 (07:39→14:32)
[2020-07-14] MEDS: clonazePAM 0.5 MG TABLET PO SCH ×3 (07:39→20:09)
[2020-07-14] MEDS: levETIRAcetam 500 MG TABLET PO SCH ×2 (07:39→20:06)
[2020-07-14] MEDS: DICYCLOMINE HCL 20 MG TABLET PO SCH ×3 (07:39→20:06)
[2020-07-14] MEDS: HYDROXYUREA 500 MG CAPSULE PO SCH (07:40)
[2020-07-14] MEDS: ACETAMINOPHEN 500 MG TABLET PO PRN (16:12)
[2020-07-14 17:37] VITALS: BP 114/69
[2020-07-14] MEDS: DIVALPROEX ER 500 MG TAB.ER.24H PO SCH (20:05)
[2020-07-14] MEDS: traZODone 100 MG TABLET. PO SCH (20:06)
--- NOTE | 2020-07-14 21:05 | PDOC ---
Exam Note: Napoleon Note: Please also refer to the separate dictated note~for this date of service dictated separately.~Patient seen individually. Discussed the patient with Nursing staff reviewed the chart.~Reviewed interim history and current functioning. Reviewed vital signs,~Labs/ Radiology~and current medications noted below. Continue current treatment with the changes noted in the dictated addendum note Assessment: Vital Signs/I&O: Vital Signs Date Time Temp Pulse Resp B/P (MAP) Pulse Ox O2 Delivery O2 Flow Rate FiO2 07/14/20 20:05 101 114/69 07/14/20 17:37 97.6 16 90 07/13/20 06:01 2.0 07/10/20 15:47 Nasal Cannula I & O 07/13/20 07/13/20 07/14/20 15:00 23:00 07:00 Intake Total 720 ml 600 ml Balance 720 ml 600 ml Current Medications: Meds: Current Medications Medications (Trade) Dose Ordered Sig/Mya Route PRN Reason Start Time Stop Time Status Last Admin Dose Admin Acetaminophen (Tylenol) 650 mg PRN Q6HRS PRN PO MILD PAIN / TEMP > 100.3'F 07/02/20 10:30 Cancel Multi-Ingredient Ointment (Analgesic [place]) 1 debra PRN QID PRN TP MUSCLE PAIN 07/02/20 10:30 Al Hydroxide/Mg Hydroxide (Mylanta Plus Xs) 15 ml PRN AFTMEALHC PRN PO DYSPEPSIA 07/02/20 10:30 07/07/20 11:15 Magnesium Hydroxide (Milk Of Magnesia) 2,400 mg PRN QHS PRN PO 1st CHOICE CONSTIPATION 07/02/20 10:30 Acetaminophen (Tylenol) 500 mg PRN Q4HRS PRN PO mild pain or fever 07/02/20 11:45 07/12/20 14:13 Acetaminophen (Tylenol) 1,000 mg PRN Q6HRS PRN PO moderate-severe pain or fever 07/02/20 11:45 07/14/20 16:12 Bisacodyl (Dulcolax Tab) 5 mg PRN DAILY PRN PO 2ND CHOICE CONSTIPATION 07/02/20 11:45 Dicyclomine HCl (Bentyl) 20 mg TID PO 07/02/20 14:00 07/14/20 20:06 Diphenoxylate HCl/ Atropine (Lomotil) 2 tab PRN BID PRN PO DIARRHEA 07/02/20 11:45 Fluticasone Propionate (Flonase) 2 spray DAILY NS 07/03/20 09:00 07/14/20 07:37 Furosemide (Lasix) 20 mg BID92 PO 07/02/20 14:00 07/14/20 14:32 Gabapentin (Neurontin) 300 mg QID PO 07/02/20 13:00 07/14/20 20:10 Hydroxyurea (Hydrea) 1,000 mg DAILY PO 07/03/20 09:00 07/14/20 07:40 Levetiracetam (Keppra) 500 mg BID PO 07/02/20 21:00 07/14/20 20:06 Al Hydroxide/Mg Hydroxide (Mylanta Plus Xs) 15 ml PRN AFTMEALHC PRN PO DYSPEPSIA 07/02/20 11:45 UNV Nystatin (Nystop) 1 debra BID TP 07/02/20 21:00 07/14/20 20:10 Pantoprazole Sodium (Protonix) 40 mg DAILYAC PO 07/03/20 07:30 07/14/20 07:39 Potassium Chloride (Klor-Con) 40 meq DAILY PO 07/03/20 09:00 07/14/20 07:38 Sulfasalazine (Azulfidine) 500 mg TID PO 07/02/20 14:00 07/14/20 14:31 Non-Formulary Medication (Albuterol Sulfate (Albuterol Sulfate Conc Neb Soln)) 1 vial Q4HRS NEB 07/02/20 12:00 UNV Diltiazem HCl (Cardizem) 60 mg BID PO 07/02/20 21:00 07/14/20 20:05 Amylase/Lipase/ Protease (Zenpep 10,000) 2 cap TIDBFRMEAL PO 07/02/20 16:30 07/14/20 16:12 Magnesium Oxide (Magnesium Oxide) 400 mg DAILY PO 07/03/20 09:00 07/14/20 07:37 Mirabegron (Myrbetriq) 50 mg DAILY PO 07/03/20 09:00 07/14/20 07:37 Non-Formulary Medication (Umeclidinium [place] (Incruse Ellipta)) 62.5 mcg DAILY IH 07/03/20 09:00 UNV Clonazepam (KlonoPIN) 1 mg TID PO 07/02/20 14:00 07/09/20 15:15 DC 07/09/20 13:06 Duloxetine HCl (Cymbalta) 30 mg BID PO 07/02/20 21:00 07/14/20 20:05 Trazodone HCl (Desyrel) 100 mg QHS PO 07/02/20 21:00 07/14/20 20:06 Albuterol/ Ipratropium (Combivent Respimat 20-100 Mcg) 1 puff RTQID INH 07/02/20 16:00 07/14/20 20:10 Albuterol Sulfate (Ventolin Hfa Inhaler) 1 puff PRN Q4HRS PRN INH SHORTNESS OF BREATH 07/02/20 13:15 07/07/20 15:24 Olanzapine (ZyPREXA ZYDIS) 2.5 mg PRN Q2HR PRN PO PSYCHOSIS 07/02/20 19:45 07/05/20 14:18 Divalproex Sodium (Depakote Er) 500 mg QHS PO 07/03/20 21:00 07/06/20 18:58 DC 07/05/20 20:16 Vitamin D (Vitamin D3) 50,000 unit WEEKLY PO 07/06/20 18:15 07/13/20 08:16 Divalproex Sodium (Depakote Er) 1,000 mg QHS PO 07/06/20 21:00 07/14/20 20:05 Lidocaine (Lidoderm) 1 patch DAILY08 TD 07/09/20 08:00 07/14/20 07:37 Clonazepam (KlonoPIN) 0.5 mg DAILY PO 07/10/20 09:00 07/16/20 08:59 07/14/20 07:39 Clonazepam (KlonoPIN) 0.5 mg Taper 1400 PO 07/10/20 14:00 07/18/20 13:59 07/14/20 14:32 Clonazepam (KlonoPIN) 0.5 mg Taper 2100 PO 07/09/20 21:00 07/20/20 20:59 07/14/20 20:09 I have reviewed the current psychotropics carefully including drug interactions. Risk benefit ratio favors no change other than as noted in my dictated progress note. Diagnosis: Problems: (1) Impulse control disorder, unspecified (2) Anxiety disorder, unspecified (3) Major depressive disorder with psychotic features (4) COPD (chronic obstructive pulmonary disease) (5) Bipolar disorder, curr episode mixed, severe, with psychotic features (6) Mild cognitive impairment NITHIN STEVENS MD Jul 14, 2020 21:05
[2020-07-15 05:58] VITALS: BP 115/71
[2020-07-15 06:55] LABS: BASO # 0.1 x10^3/uL (0.0-0.2); BASO % 2 % (0-3); EOS # 0.2 x10^3/uL (0.0-0.7); EOS % 3 % (0-3); HEMOGLOBIN 11.6 g/dL (12.0-15.5); LYMPH # 1.1 x10^3/uL (1.0-4.8); LYMPH % 19 % (24-48); MEAN CORPUSCULAR HEMOGLOBIN 32 pg (25-35); MEAN CORPUSCULAR HGB CONC 32 g/dL (31-37); MEAN CORPUSCULAR VOLUME 99 fL (79-100); MONO # 0.3 x10^3/uL (0.0-1.1); MONO % 6 % (0-9); NEUT % 71 % (31-73); PLATELET COUNT 263 x10^3/uL (140-400); RED BLOOD COUNT 3.63 x10^6/uL (3.50-5.40); RED CELL DISTRIBUTION WIDTH 17.7 % (11.5-14.5); WHITE BLOOD COUNT 5.7 x10^3/uL (4.0-11.0)
[2020-07-15 07:06] LABS: ALBUMIN 2.7 g/dL (3.4-5.0); ALBUMIN/GLOBULIN RATIO 0.8 (1.0-1.7); CALCIUM 8.5 mg/dL (8.5-10.1); CREATININE 0.8 mg/dL (0.6-1.0); GFR 71.3; POTASSIUM 3.5 mmol/L (3.5-5.1); TOTAL BILIRUBIN 0.4 mg/dL (0.2-1.0); TOTAL PROTEIN 5.9 g/dL (6.4-8.2)
--- NOTE | 2020-07-15 07:45 | PDOC ---
Exam Note: Napoleon Note: This note is a late entry for 07/14/2020 covers elements not covered in my initial note. Subjective: The patient was seen face to face in the evening of 07/14/2020 with Cheryl BARR, discussed and reviewed the chart. She slept 6-1/2 hours previous night. She has had no p.r.n.s. for behaviors. She has moved her room with another patient who is cognitively fairly intact. Reportedly this other patient stated that Brigitte had fallen in her room. When asked by nursing staff, Brigitte totally denies that. She may have some short-term memory deficits but other than that she probably does not want to present herself as vulnerable to any physical needs at all since she wants to be discharged early. I did address with her. Review of Systems: Shortness of breath on O2 supplements. Ambulation impaired with walker. No CV, , eye, ENT system symptoms on review. Mental Status Exam: The patient is oriented to herself and situation. Speech is coherent, has some latency. Abstraction is fair. Computation is impaired. Language function is intact. Attention span is short. She remains somewhat obsessive about discharge. Laboratory Data: Reviewed. Impression: Bipolar 1 disorder depressed with possible psychotic features. Anxiety disorder unspecified. History of major depressive disorder with psychotic features. Mild cognitive impairment. Plan: No change from initial note. Assessment: Vital Signs/I&O: Vital Signs Date Time Temp Pulse Resp B/P (MAP) Pulse Ox O2 Delivery O2 Flow Rate FiO2 07/15/20 05:58 97.8 94 18 115/71 (86) 90 07/13/20 06:01 2.0 07/10/20 15:47 Nasal Cannula I & O 07/14/20 07/14/20 07/15/20 15:00 23:00 07:00 Intake Total 240 ml 340 ml Balance 240 ml 340 ml Labs: Laboratory Tests Test 07/15/20 06:23 White Blood Count 5.7 x10^3/uL (4.0-11.0) Red Blood Count 3.63 x10^6/uL (3.50-5.40) Hemoglobin 11.6 g/dL (12.0-15.5) L Hematocrit 36.0 % (36.0-47.0) Mean Corpuscular Volume 99 fL (79-100) Mean Corpuscular Hemoglobin 32 pg (25-35) Mean Corpuscular Hemoglobin Concent 32 g/dL (31-37) Red Cell Distribution Width 17.7 % (11.5-14.5) H Platelet Count 263 x10^3/uL (140-400) Neutrophils (%) (Auto) 71 % (31-73) Lymphocytes (%) (Auto) 19 % (24-48) L Monocytes (%) (Auto) 6 % (0-9) Eosinophils (%) (Auto) 3 % (0-3) Basophils (%) (Auto) 2 % (0-3) Neutrophils # (Auto) 4.0 x10^3uL (1.8-7.7) Lymphocytes # (Auto) 1.1 x10^3/uL (1.0-4.8) Monocytes # (Auto) 0.3 x10^3/uL (0.0-1.1) Eosinophils # (Auto) 0.2 x10^3/uL (0.0-0.7) Basophils # (Auto) 0.1 x10^3/uL (0.0-0.2) Sodium Level 145 mmol/L (136-145) Potassium Level 3.5 mmol/L (3.5-5.1) Chloride Level 105 mmol/L (98-107) Carbon Dioxide Level 34 mmol/L (21-32) H Anion Gap 6 (6-14) Blood Urea Nitrogen 19 mg/dL (7-20) Creatinine 0.8 mg/dL (0.6-1.0) Estimated GFR (Cockcroft-Gault) 71.3 BUN/Creatinine Ratio 24 (6-20) H Glucose Level 96 mg/dL (70-99) Calcium Level 8.5 mg/dL (8.5-10.1) Total Bilirubin 0.4 mg/dL (0.2-1.0) Aspartate Amino Transferase (AST) 13 U/L (15-37) L Alanine Aminotransferase (ALT) 16 U/L (14-59) Alkaline Phosphatase 86 U/L (46-116) Total Protein 5.9 g/dL (6.4-8.2) L Albumin 2.7 g/dL (3.4-5.0) L Albumin/Globulin Ratio 0.8 (1.0-1.7) L Current Medications: Meds: Laboratory Tests Test 07/15/20 06:23 White Blood Count 5.7 x10^3/uL Red Blood Count 3.63 x10^6/uL Hemoglobin 11.6 g/dL Hematocrit 36.0 % Mean Corpuscular Volume 99 fL Mean Corpuscular Hemoglobin 32 pg Mean Corpuscular Hemoglobin Concent 32 g/dL Red Cell Distribution Width 17.7 % Platelet Count 263 x10^3/uL Neutrophils (%) (Auto) 71 % Lymphocytes (%) (Auto) 19 % Monocytes (%) (Auto) 6 % Eosinophils (%) (Auto) 3 % Basophils (%) (Auto) 2 % Neutrophils # (Auto) 4.0 x10^3uL Lymphocytes # (Auto) 1.1 x10^3/uL Monocytes # (Auto) 0.3 x10^3/uL Eosinophils # (Auto) 0.2 x10^3/uL Basophils # (Auto) 0.1 x10^3/uL Sodium Level 145 mmol/L Potassium Level 3.5 mmol/L Chloride Level 105 mmol/L Carbon Dioxide Level 34 mmol/L Anion Gap 6 Blood Urea Nitrogen 19 mg/dL Creatinine 0.8 mg/dL Estimated GFR (Cockcroft-Gault) 71.3 BUN/Creatinine Ratio 24 Glucose Level 96 mg/dL Calcium Level 8.5 mg/dL Total Bilirubin 0.4 mg/dL Aspartate Amino Transf (AST/SGOT) 13 U/L Alanine Aminotransferase (ALT/SGPT) 16 U/L Alkaline Phosphatase 86 U/L Total Protein 5.9 g/dL Albumin 2.7 g/dL Albumin/Globulin Ratio 0.8 Current Medications Medications (Trade) Dose Ordered Sig/Mya Route PRN Reason Start Time Stop Time Status Last Admin Dose Admin Acetaminophen (Tylenol) 650 mg PRN Q6HRS PRN PO MILD PAIN / TEMP > 100.3'F 07/02/20 10:30 Cancel Multi-Ingredient Ointment (Analgesic [place]) 1 debra PRN QID PRN TP MUSCLE PAIN 07/02/20 10:30 Al Hydroxide/Mg Hydroxide (Mylanta Plus Xs) 15 ml PRN AFTMEALHC PRN PO DYSPEPSIA 07/02/20 10:30 07/07/20 11:15 Magnesium Hydroxide (Milk Of Magnesia) 2,400 mg PRN QHS PRN PO 1st CHOICE CONSTIPATION 07/02/20 10:30 Acetaminophen (Tylenol) 500 mg PRN Q4HRS PRN PO mild pain or fever 07/02/20 11:45 07/12/20 14:13 Acetaminophen (Tylenol) 1,000 mg PRN Q6HRS PRN PO moderate-severe pain or fever 07/02/20 11:45 07/14/20 16:12 Bisacodyl (Dulcolax Tab) 5 mg PRN DAILY PRN PO 2ND CHOICE CONSTIPATION 07/02/20 11:45 Dicyclomine HCl (Bentyl) 20 mg TID PO 07/02/20 14:00 07/14/20 20:06 Diphenoxylate HCl/ Atropine (Lomotil) 2 tab PRN BID PRN PO DIARRHEA 07/02/20 11:45 Fluticasone Propionate (Flonase) 2 spray DAILY NS 07/03/20 09:00 07/14/20 07:37 Furosemide (Lasix) 20 mg BID92 PO 07/02/20 14:00 07/14/20 14:32 Gabapentin (Neurontin) 300 mg QID PO 07/02/20 13:00 07/14/20 20:10 Hydroxyurea (Hydrea) 1,000 mg DAILY PO 07/03/20 09:00 07/14/20 07:40 Levetiracetam (Keppra) 500 mg BID PO 07/02/20 21:00 07/14/20 20:06 Al Hydroxide/Mg Hydroxide (Mylanta Plus Xs) 15 ml PRN AFTMEALHC PRN PO DYSPEPSIA 07/02/20 11:45 UNV Nystatin (Nystop) 1 debra BID TP 07/02/20 21:00 07/14/20 20:10 Pantoprazole Sodium (Protonix) 40 mg DAILYAC PO 07/03/20 07:30 07/14/20 07:39 Potassium Chloride (Klor-Con) 40 meq DAILY PO 07/03/20 09:00 07/14/20 07:38 Sulfasalazine (Azulfidine) 500 mg TID PO 07/02/20 14:00 07/14/20 14:31 Non-Formulary Medication (Albuterol Sulfate (Albuterol Sulfate Conc Neb Soln)) 1 vial Q4HRS NEB 07/02/20 12:00 UNV Diltiazem HCl (Cardizem) 60 mg BID PO 07/02/20 21:00 07/14/20 20:05 Amylase/Lipase/ Protease (Zenpep 10,000) 2 cap TIDBFRMEAL PO 07/02/20 16:30 07/14/20 16:12 Magnesium Oxide (Magnesium Oxide) 400 mg DAILY PO 07/03/20 09:00 07/14/20 07:37 Mirabegron (Myrbetriq) 50 mg DAILY PO 07/03/20 09:00 07/14/20 07:37 Non-Formulary Medication (Umeclidinium [place] (Incruse Ellipta)) 62.5 mcg DAILY IH 07/03/20 09:00 UNV Clonazepam (KlonoPIN) 1 mg TID PO 07/02/20 14:00 07/09/20 15:15 DC 07/09/20 13:06 Duloxetine HCl (Cymbalta) 30 mg BID PO 07/02/20 21:00 07/14/20 20:05 Trazodone HCl (Desyrel) 100 mg QHS PO 07/02/20 21:00 07/14/20 20:06 Albuterol/ Ipratropium (Combivent Respimat 20-100 Mcg) 1 puff RTQID INH 07/02/20 16:00 07/14/20 20:10 Albuterol Sulfate (Ventolin Hfa Inhaler) 1 puff PRN Q4HRS PRN INH SHORTNESS OF BREATH 07/02/20 13:15 07/07/20 15:24 Olanzapine (ZyPREXA ZYDIS) 2.5 mg PRN Q2HR PRN PO PSYCHOSIS 07/02/20 19:45 07/05/20 14:18 Divalproex Sodium (Depakote Er) 500 mg QHS PO 07/03/20 21:00 07/06/20 18:58 DC 07/05/20 20:16 Vitamin D (Vitamin D3) 50,000 unit WEEKLY PO 07/06/20 18:15 07/13/20 08:16 Divalproex Sodium (Depakote Er) 1,000 mg QHS PO 07/06/20 21:00 07/14/20 20:05 Lidocaine (Lidoderm) 1 patch DAILY08 TD 07/09/20 08:00 3/4/21 07:37 Clonazepam (KlonoPIN) 0.5 mg DAILY PO 07/10/20 09:00 07/16/20 08:59 07/14/20 07:39 Clonazepam (KlonoPIN) 0.5 mg Taper 1400 PO 07/10/20 14:00 07/18/20 13:59 07/14/20 14:32 Clonazepam (KlonoPIN) 0.5 mg Taper 2100 PO 07/09/20 21:00 07/20/20 20:59 07/14/20 20:09 I have reviewed the current psychotropics carefully including drug interactions. Risk benefit ratio favors no change other than as noted in my dictated progress note. Diagnosis: Problems: (1) Impulse control disorder, unspecified (2) Anxiety disorder, unspecified (3) Major depressive disorder with psychotic features (4) COPD (chronic obstructive pulmonary disease) (5) Bipolar disorder, curr episode mixed, severe, with psychotic features (6) Mild cognitive impairment NITHIN STEVENS MD Jul 15, 2020 07:45
[2020-07-15] MEDS: FUROSEMIDE 20 MG TABLET PO SCH ×2 (07:48→12:57)
[2020-07-15] MEDS: LIDOCAINE (700MG/PATCH) PATCH. TD SCH (07:48)
[2020-07-15] MEDS: clonazePAM 0.5 MG TABLET PO SCH ×3 (07:48→20:10)
[2020-07-15] MEDS: dilTIAZem HCL 30 MG TABLET PO SCH ×2 (07:49→20:10)
[2020-07-15] MEDS: LIPASE/PROTEAS/AMYLAS 10/32/42 CAPSULE.DR. PO SCH ×3 (07:49→17:01)
[2020-07-15] MEDS: DULoxetine HCL 30 MG CAPSULE.DR PO SCH ×2 (07:50→20:10)
[2020-07-15] MEDS: levETIRAcetam 500 MG TABLET PO SCH (07:50)
[2020-07-15] MEDS: DICYCLOMINE HCL 20 MG TABLET PO SCH ×3 (07:50→20:10)
[2020-07-15] MEDS: GABAPENTIN 300 MG CAPSULE. PO SCH ×4 (07:50→20:10)
[2020-07-15] MEDS: POTASSIUM CHLORIDE 20 MEQ TABLET.ER. PO SCH (07:50)
[2020-07-15] MEDS: PANTOPRAZOLE 40 MG TABLET. PO SCH (07:50)
[2020-07-15] MEDS: IPRATROPIUM/ALBUTEROL 20/100mcg/INH INHALER. INH SCH ×4 (07:51→20:12)
[2020-07-15] MEDS: FLUTICASONE 50MCG/NASAL SPRAY 16GM BOTTLE. NS SCH (07:51)
[2020-07-15] MEDS: MAGNESIUM OXIDE 400 MG TABLET PO SCH (07:52)
[2020-07-15] MEDS: sulfaSALAzine 500 MG TABLET PO SCH ×3 (07:53→17:02)
[2020-07-15] MEDS: MIRABEGRON 25 MG TAB.ER.24H PO SCH (07:54)
[2020-07-15] MEDS: HYDROXYUREA 500 MG CAPSULE PO SCH (07:54)
[2020-07-15] MEDS: NYSTATIN TOPICAL POWDER 15GM BOTTLE. TP SCH ×2 (07:56→20:11)
[2020-07-15 16:16] VITALS: BP 130/78
[2020-07-15] MEDS: DIVALPROEX ER 500 MG TAB.ER.24H PO SCH (20:10)
[2020-07-15] MEDS: traZODone 100 MG TABLET. PO SCH (20:10)
[2020-07-15] MEDS: levETIRAcetam 250 MG TABLET PO SCH (20:19)
--- NOTE | 2020-07-15 20:53 | PDOC ---
Exam Note: Napoleon Note: Please also refer to the separate dictated note~for this date of service dictated separately.~Patient seen individually. Discussed the patient with Nursing staff reviewed the chart.~Reviewed interim history and current functioning. Reviewed vital signs,~Labs/ Radiology~and current medications noted below. Continue current treatment with the changes noted in the dictated addendum note Assessment: Vital Signs/I&O: Vital Signs Date Time Temp Pulse Resp B/P (MAP) Pulse Ox O2 Delivery O2 Flow Rate FiO2 07/15/20 20:10 99 130/78 07/15/20 16:16 98.3 20 95 Nasal Cannula 2.0 I & O 07/14/20 07/14/20 07/15/20 15:00 23:00 07:00 Intake Total 240 ml 340 ml Balance 240 ml 340 ml Labs: Laboratory Tests Test 07/15/20 06:23 White Blood Count 5.7 x10^3/uL (4.0-11.0) Red Blood Count 3.63 x10^6/uL (3.50-5.40) Hemoglobin 11.6 g/dL (12.0-15.5) L Hematocrit 36.0 % (36.0-47.0) Mean Corpuscular Volume 99 fL (79-100) Mean Corpuscular Hemoglobin 32 pg (25-35) Mean Corpuscular Hemoglobin Concent 32 g/dL (31-37) Red Cell Distribution Width 17.7 % (11.5-14.5) H Platelet Count 263 x10^3/uL (140-400) Neutrophils (%) (Auto) 71 % (31-73) Lymphocytes (%) (Auto) 19 % (24-48) L Monocytes (%) (Auto) 6 % (0-9) Eosinophils (%) (Auto) 3 % (0-3) Basophils (%) (Auto) 2 % (0-3) Neutrophils # (Auto) 4.0 x10^3uL (1.8-7.7) Lymphocytes # (Auto) 1.1 x10^3/uL (1.0-4.8) Monocytes # (Auto) 0.3 x10^3/uL (0.0-1.1) Eosinophils # (Auto) 0.2 x10^3/uL (0.0-0.7) Basophils # (Auto) 0.1 x10^3/uL (0.0-0.2) Sodium Level 145 mmol/L (136-145) Potassium Level 3.5 mmol/L (3.5-5.1) Chloride Level 105 mmol/L (98-107) Carbon Dioxide Level 34 mmol/L (21-32) H Anion Gap 6 (6-14) Blood Urea Nitrogen 19 mg/dL (7-20) Creatinine 0.8 mg/dL (0.6-1.0) Estimated GFR (Cockcroft-Gault) 71.3 BUN/Creatinine Ratio 24 (6-20) H Glucose Level 96 mg/dL (70-99) Calcium Level 8.5 mg/dL (8.5-10.1) Total Bilirubin 0.4 mg/dL (0.2-1.0) Aspartate Amino Transferase (AST) 13 U/L (15-37) L Alanine Aminotransferase (ALT) 16 U/L (14-59) Alkaline Phosphatase 86 U/L (46-116) Total Protein 5.9 g/dL (6.4-8.2) L Albumin 2.7 g/dL (3.4-5.0) L Albumin/Globulin Ratio 0.8 (1.0-1.7) L Current Medications: Meds: Current Medications Medications (Trade) Dose Ordered Sig/Mya Route PRN Reason Start Time Stop Time Status Last Admin Dose Admin Levetiracetam (Keppra) 250 mg BID PO 07/15/20 21:00 07/15/20 20:19 I have reviewed the current psychotropics carefully including drug interactions. Risk benefit ratio favors no change other than as noted in my dictated progress note. Diagnosis: Problems: (1) Impulse control disorder, unspecified (2) Anxiety disorder, unspecified (3) Major depressive disorder with psychotic features (4) COPD (chronic obstructive pulmonary disease) (5) Bipolar disorder, curr episode mixed, severe, with psychotic features (6) Mild cognitive impairment NITHIN STEVENS MD Jul 15, 2020 20:53
--- NOTE | 2020-07-15 23:03 | PN ---
DATE: 07/05/2020 SUBJECTIVE: The patient denies any new medical or neurological complaints. She has not had any seizure since admission. She denies any new medical or neurological complaints. OBJECTIVE: GENERAL: Well-developed, well-nourished female, not in acute distress. VITAL SIGNS: Blood pressure 109/75, respiratory rate 20, pulse is 88 and regular, temperature 97.6, oxygen saturation 95% on 2 liters by nasal cannula. HEENT: Normocephalic, atraumatic, otherwise unremarkable. NECK: Supple. Negative for carotid bruit, lymphadenopathy or thyromegaly. LUNGS: Clear to A and P. CARDIOVASCULAR: Regular rate and rhythm, normal S1, S2. There is no S3, S4 or murmurs. ABDOMEN: Soft. Bowel sounds positive. EXTREMITIES: Negative for cyanosis, clubbing or edema. NEUROLOGICAL EXAM: Mental Status: The patient is alert and oriented x 3. Speech is fluent. There is no language dysfunction. Memory, judgment, and abstracting thinking are normal. The patient denies hallucination or delusion. Cranial nerves are intact. No focal motor or sensory deficit. The strength is 4/5 throughout. Sensory examination revealed normal pinprick and light touch senses throughout. Deep tendon reflexes were symmetric and active with absent Achilles responses. Gait: The patient uses a walker for ambulation. IMPRESSION: 1. History of seizure disorder, etiology uncertain, probably traumatic head injuries. 2. Multiple medical problems include anxiety disorder, depression, chronic lower back pain secondary to lumbosacral degenerative disk disease and intermittent psychotic features. 3. Anemia, fibromyalgia, osteoarthritis and intermittent panic attack. RECOMMENDATIONS: 1. We will continue with current medical and psychiatric care. 2. Continue with Keppra as it is 500 mg twice daily until Depakote level becomes therapeutic, then starting tapering the dose gradually. M Kishore MARSH MD DR: FELIX/caden JOB#: [id number] / [id number]
--- NOTE | 2020-07-15 23:12 | PN ---
DATE: 07/15/2020 SUBJECTIVE: The patient denies any new medical or neurological complaints. She has not had any recurrent seizure since admission; however, the patient has been on Keppra 500 mg twice daily. Depakote level currently is not therapeutic. OBJECTIVE: GENERAL: Well-developed, well-nourished female, not in acute distress. VITAL SIGNS: Blood pressure 104/71, respiratory rate 18, pulse is 97, temperature 98.4, and oxygen saturation 97% on 3 liters by nasal cannula. HEENT: Normocephalic, atraumatic, otherwise unremarkable. NECK: Supple. Negative for carotid bruit, lymphadenopathy or thyromegaly. LUNGS: Clear to A and P. CARDIOVASCULAR: Regular rate and rhythm, normal S1, S2. ABDOMEN: Soft. Bowel sounds positive. EXTREMITIES: Negative for cyanosis, clubbing or edema. NEUROLOGICAL EXAM: Normal mental status and intact cranial nerves. There is no focal motor or sensory deficit. Deep tendon reflexes were symmetric and hypoactive with absent Achilles responses. Gait: The patient uses a walker for ambulation and she use also a wheelchair most of the time. She has unsteady stand and has tendency to fall. LABORATORY DATA: CBC from 07/06/2020 revealed white blood cells of 6.1, hemoglobin 12.7, hematocrit 39.8, and platelet count 474,000. Chemistry revealed sodium of 142, potassium 4.2, chloride 103, CO2 of 28, BUN 10, creatinine 0.9, glucose 190 and calcium 8.9. Liver enzymes not elevated. T4 and T3 are normal. IMPRESSION: 1. History of seizure disorder, etiology uncertain, probably due to traumatic brain injury. 2. Multiple medical problems include osteoarthritis, gastroesophageal reflux disease, and anemia. 3. Multiple psychiatric problems include anxiety disorder with intermittent panic attacks, depression and intermittent psychotic features. RECOMMENDATIONS: We will continue with current medical and psychiatric care. M Kishore MARSH MD DR: FELIX/caden JOB#: [id number] / [id number]
--- NOTE | 2020-07-15 23:32 | PN ---
DATE: 07/15/2020 SUBJECTIVE: The patient denies any new medical or neurological complaints. She denies any recurrent seizure. OBJECTIVE: GENERAL: Well-developed, well-nourished female, not in acute distress. VITAL SIGNS: Blood pressure 112/72, respiratory rate 22, pulse is 93, temperature 97.9, and oxygen saturation 91% on 2 liters by nasal cannula. HEENT: Normocephalic, atraumatic, otherwise unremarkable. NECK: Supple. Negative for carotid bruit, lymphadenopathy or thyromegaly. LUNGS: Clear to A and P. CARDIOVASCULAR: Regular rate and rhythm, normal S1, S2. ABDOMEN: Soft. Bowel sounds positive. EXTREMITIES: Negative for cyanosis, clubbing or edema. NEUROLOGICAL EXAM: Normal mental status and intact cranial nerves. There is no focal motor or sensory deficit. Deep tendon reflexes were symmetric and hypoactive with absent Achilles responses. Gait: The patient uses a walker for ambulation. LABORATORY DATA: CBC revealed white blood cells of 5700, hemoglobin 11.6, hematocrit 36, and platelet count 263,000. Chemistry revealed sodium of 145, potassium 3.5, chloride 105, CO2 34, BUN 19, creatinine 0.9, glucose 96 and calcium 8.9. IMPRESSION: 1. 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 However, the patient has not had any recurrent seizures since admission. 2. Multiple psychiatric problems include anxiety disorder, depression, intermittent psychotic features, panic attack. 3. Multiple medical problems include osteoarthritis chronic type, anemia, gastroesophageal reflux disease, chronic lower back pain secondary to degenerative disk disease. RECOMMENDATIONS: 1. The patient has not had any recurrent seizures since admission. We will start tapering Keppra to 250 mg every day. 2. Continue with current medical and psychiatric care. M Kishore MARSH MD DR: FELIX/caden JOB#: [id number] / [id number]
--- NOTE | 2020-07-15 23:36 | PN ---
DATE: 07/09/2020 SUBJECTIVE: The patient denies any new medical or neurological complaints. She denies any recurrent seizure. She has not had any seizure since admission. Patient currently takes Keppra 500 mg twice a day, and she is on Depakote as well. OBJECTIVE: GENERAL: Well-developed, well-nourished female, not in acute distress. VITAL SIGNS: Blood pressure is 117/78, respiratory rate 20, pulse is 95, regular, temperature is 98.4, and oxygen saturation 94% on 2 liters by nasal cannula. HEENT: Normocephalic, atraumatic, otherwise unremarkable. NECK: Supple. Negative for carotid bruit, lymphadenopathy or thyromegaly. LUNGS: Clear to A and P. CARDIOVASCULAR: Regular rate and rhythm, normal S1, S2. ABDOMEN: Soft. Bowel sounds positive. EXTREMITIES: Negative for cyanosis, clubbing or edema. NEUROLOGICAL EXAM: Normal mental status and intact cranial nerves. There is no focal motor or sensory deficit. Deep tendon reflexes were asymmetric and hypoactive with absent Achilles responses. Gait: The patient uses a walker, but she alternates with a wheelchair. She continues to be on oxygen per nasal cannula. LABORATORY DATA: CBC revealed white blood cells of 9.6 thousand, hemoglobin 14.1, hematocrit 44, platelet count 422,000. Chemistry revealed sodium of 142, potassium 4.6, chloride 101, CO2 of 32, BUN 8, creatinine 0.8 and glucose 117. Depakote level is 57, the normal range between 50 and 100. Coronavirus PCR is not detected. IMPRESSION: 1. History of seizure disorder, probably due to traumatic brain injuries. 2. Multiple medical problems include anemia, osteoarthritis, gastroesophageal reflux disease, chronic lower back pain secondary to degenerative disk disease. RECOMMENDATIONS: 1. We will continue with current medical and psychiatric care. 2. We will wait a few days to get stable Depakote level, then start tapering Keppra and watch for any breakthrough seizure while she is still in the hospital. M Kishore MARSH MD DR: FELIX/caden JOB#: [id number] / [id number]
[2020-07-16 06:25] VITALS: BP 112/73
[2020-07-16 06:50] VITALS: BP 112/74
[2020-07-16] MEDS: NYSTATIN TOPICAL POWDER 15GM BOTTLE. TP SCH ×3 (08:26→21:57)
[2020-07-16] MEDS: IPRATROPIUM/ALBUTEROL 20/100mcg/INH INHALER. INH SCH ×4 (08:26→20:00)
[2020-07-16] MEDS: FLUTICASONE 50MCG/NASAL SPRAY 16GM BOTTLE. NS SCH (08:26)
[2020-07-16] MEDS: sulfaSALAzine 500 MG TABLET PO SCH ×4 (08:27→21:59)
[2020-07-16] MEDS: dilTIAZem HCL 30 MG TABLET PO SCH ×3 (08:27→21:57)
[2020-07-16] MEDS: HYDROXYUREA 500 MG CAPSULE PO SCH (08:27)
[2020-07-16] MEDS: levETIRAcetam 250 MG TABLET PO SCH ×3 (08:28→21:56)
[2020-07-16] MEDS: LIPASE/PROTEAS/AMYLAS 10/32/42 CAPSULE.DR. PO SCH ×3 (08:28→17:13)
[2020-07-16] MEDS: DULoxetine HCL 30 MG CAPSULE.DR PO SCH ×3 (08:28→21:56)
[2020-07-16] MEDS: PANTOPRAZOLE 40 MG TABLET. PO SCH (08:28)
[2020-07-16] MEDS: POTASSIUM CHLORIDE 20 MEQ TABLET.ER. PO SCH (08:28)
[2020-07-16] MEDS: MIRABEGRON 25 MG TAB.ER.24H PO SCH (08:28)
[2020-07-16] MEDS: DICYCLOMINE HCL 20 MG TABLET PO SCH ×4 (08:29→21:56)
[2020-07-16] MEDS: LIDOCAINE (700MG/PATCH) PATCH. TD SCH (08:29)
[2020-07-16] MEDS: FUROSEMIDE 20 MG TABLET PO SCH ×2 (08:29→12:32)
[2020-07-16] MEDS: MAGNESIUM OXIDE 400 MG TABLET PO SCH (08:33)
[2020-07-16] MEDS: GABAPENTIN 300 MG CAPSULE. PO SCH ×5 (08:33→21:56)
[2020-07-16] MEDS: clonazePAM 0.5 MG TABLET PO SCH ×3 (12:32→21:56)
[2020-07-16 16:16] VITALS: BP 121/79
[2020-07-16] MEDS: traZODone 100 MG TABLET. PO SCH (21:00)
[2020-07-16] MEDS: DIVALPROEX ER 500 MG TAB.ER.24H PO SCH ×2 (21:00→21:57)
--- NOTE | 2020-07-16 21:35 | PDOC ---
Exam Note: Napoleon Note: Please also refer to the separate dictated note~for this date of service dictated separately.~Patient seen individually. Discussed the patient with Nursing staff reviewed the chart.~Reviewed interim history and current functioning. Reviewed vital signs,~Labs/ Radiology~and current medications noted below. Continue current treatment with the changes noted in the dictated addendum note Assessment: Vital Signs/I&O: Vital Signs Date Time Temp Pulse Resp B/P (MAP) Pulse Ox O2 Delivery O2 Flow Rate FiO2 07/16/20 16:16 97.2 97 20 121/79 (93) 94 07/16/20 06:50 Nasal Cannula 3.0 I & O 07/15/20 07/15/20 07/16/20 15:00 23:00 07:00 Intake Total 840 ml 960 ml Balance 840 ml 960 ml Current Medications: Meds: Current Medications Medications (Trade) Dose Ordered Sig/Mya Route PRN Reason Start Time Stop Time Status Last Admin Dose Admin Acetaminophen (Tylenol) 650 mg PRN Q6HRS PRN PO MILD PAIN / TEMP > 100.3'F 07/02/20 10:30 Cancel Multi-Ingredient Ointment (Analgesic [place]) 1 debra PRN QID PRN TP MUSCLE PAIN 07/02/20 10:30 Al Hydroxide/Mg Hydroxide (Mylanta Plus Xs) 15 ml PRN AFTMEALHC PRN PO DYSPEPSIA 07/02/20 10:30 07/07/20 11:15 Magnesium Hydroxide (Milk Of Magnesia) 2,400 mg PRN QHS PRN PO 1st CHOICE CONSTIPATION 07/02/20 10:30 Acetaminophen (Tylenol) 500 mg PRN Q4HRS PRN PO mild pain or fever 07/02/20 11:45 07/12/20 14:13 Acetaminophen (Tylenol) 1,000 mg PRN Q6HRS PRN PO moderate-severe pain or fever 07/02/20 11:45 07/14/20 16:12 Bisacodyl (Dulcolax Tab) 5 mg PRN DAILY PRN PO 2ND CHOICE CONSTIPATION 07/02/20 11:45 Dicyclomine HCl (Bentyl) 20 mg TID PO 07/02/20 14:00 07/16/20 12:32 Diphenoxylate HCl/ Atropine (Lomotil) 2 tab PRN BID PRN PO DIARRHEA 07/02/20 11:45 Fluticasone Propionate (Flonase) 2 spray DAILY NS 07/03/20 09:00 07/16/20 08:26 Furosemide (Lasix) 20 mg BID92 PO 07/02/20 14:00 07/16/20 12:32 Gabapentin (Neurontin) 300 mg QID PO 07/02/20 13:00 07/16/20 17:13 Hydroxyurea (Hydrea) 1,000 mg DAILY PO 07/03/20 09:00 07/16/20 08:27 Levetiracetam (Keppra) 500 mg BID PO 07/02/20 21:00 07/15/20 20:14 DC 07/15/20 07:50 Al Hydroxide/Mg Hydroxide (Mylanta Plus Xs) 15 ml PRN AFTMEALHC PRN PO DYSPEPSIA 07/02/20 11:45 UNV Nystatin (Nystop) 1 debra BID TP 07/02/20 21:00 07/16/20 08:26 Pantoprazole Sodium (Protonix) 40 mg DAILYAC PO 07/03/20 07:30 07/16/20 08:28 Potassium Chloride (Klor-Con) 40 meq DAILY PO 07/03/20 09:00 07/16/20 08:28 Sulfasalazine (Azulfidine) 500 mg TID PO 07/02/20 14:00 07/16/20 12:32 Non-Formulary Medication (Albuterol Sulfate (Albuterol Sulfate Conc Neb Soln)) 1 vial Q4HRS NEB 07/02/20 12:00 UNV Diltiazem HCl (Cardizem) 60 mg BID PO 07/02/20 21:00 07/16/20 08:27 Amylase/Lipase/ Protease (Zenpep 10,000) 2 cap TIDBFRMEAL PO 07/02/20 16:30 07/16/20 17:13 Magnesium Oxide (Magnesium Oxide) 400 mg DAILY PO 07/03/20 09:00 07/16/20 08:33 Mirabegron (Myrbetriq) 50 mg DAILY PO 07/03/20 09:00 07/16/20 08:28 Non-Formulary Medication (Umeclidinium [place] (Incruse Ellipta)) 62.5 mcg DAILY IH 07/03/20 09:00 UNV Clonazepam (KlonoPIN) 1 mg TID PO 07/02/20 14:00 07/09/20 15:15 DC 07/09/20 13:06 Duloxetine HCl (Cymbalta) 30 mg BID PO 07/02/20 21:00 07/16/20 08:28 Trazodone HCl (Desyrel) 100 mg QHS PO 07/02/20 21:00 07/15/20 20:10 Albuterol/ Ipratropium (Combivent Respimat 20-100 Mcg) 1 puff RTQID INH 07/02/20 16:00 07/16/20 17:07 Albuterol Sulfate (Ventolin Hfa Inhaler) 1 puff PRN Q4HRS PRN INH SHORTNESS OF BREATH 07/02/20 13:15 07/07/20 15:24 Olanzapine (ZyPREXA ZYDIS) 2.5 mg PRN Q2HR PRN PO PSYCHOSIS 07/02/20 19:45 07/05/20 14:18 Divalproex Sodium (Depakote Er) 500 mg QHS PO 07/03/20 21:00 07/06/20 18:58 DC 07/05/20 20:16 Vitamin D (Vitamin D3) 50,000 unit WEEKLY PO 07/06/20 18:15 07/13/20 08:16 Divalproex Sodium (Depakote Er) 1,000 mg QHS PO 07/06/20 21:00 07/15/20 20:10 Lidocaine (Lidoderm) 1 patch DAILY08 TD 07/09/20 08:00 07/16/20 08:29 Clonazepam (KlonoPIN) 0.5 mg DAILY PO 07/10/20 09:00 07/16/20 08:59 DC 07/15/20 07:48 Clonazepam (KlonoPIN) 0.5 mg Taper 1400 PO 07/10/20 14:00 07/18/20 13:59 07/16/20 12:32 Clonazepam (KlonoPIN) 0.5 mg Taper 2100 PO 07/09/20 21:00 07/20/20 20:59 07/15/20 20:10 Levetiracetam (Keppra) 250 mg BID PO 07/15/20 21:00 07/16/20 08:28 I have reviewed the current psychotropics carefully including drug interactions. Risk benefit ratio favors no change other than as noted in my dictated progress note. Diagnosis: Problems: (1) Impulse control disorder, unspecified (2) Anxiety disorder, unspecified (3) Major depressive disorder with psychotic features (4) COPD (chronic obstructive pulmonary disease) (5) Bipolar disorder, curr episode mixed, severe, with psychotic features (6) Mild cognitive impairment NITHIN STEVENS MD Jul 16, 2020 21:35
--- NOTE | 2020-07-16 22:59 | PN ---
DATE: 07/16/2020 SUBJECTIVE: The patient denies any new medical or neurological complaints. She has not had any seizure since admission. Her current dose of Keppra has been tapered to be 250 mg twice daily, then tapered to furthermore to be off Keppra completely before discharge. OBJECTIVE: GENERAL: Well-developed, well-nourished female, not in acute distress. VITAL SIGNS: Blood pressure 121/79, respiratory rate 20, pulse is 97, and oxygen saturation 94% on 3 liters by nasal cannula and temperature is 97.2. HEENT: Normocephalic, atraumatic, otherwise unremarkable. NECK: Supple. Negative for carotid bruit, lymphadenopathy or thyromegaly. LUNGS: Clear to A and P. CARDIOVASCULAR: Regular rate and rhythm, normal S1, S2. There is no S3, S4 or murmur. ABDOMEN: Soft. Bowel sounds positive. EXTREMITIES: Negative for cyanosis, clubbing or edema. NEUROLOGICAL EXAM: Mental Status: The patient has normal mental status and intact cranial nerves. There is no focal motor or sensory deficit. The strength was 4/5 throughout. Deep tendon reflexes were symmetric and hypoactive with absent Achilles responses. Gait: The patient walked without assistance. IMPRESSION: 1. History of seizure disorder -- stable. No recurrence. 2. Multiple medical problems include chronic low back pain, gastroesophageal reflux disease, osteoarthritis and anemia. RECOMMENDATIONS: 1. Continue with current medical and psychiatric care. 2. Continue to taper Keppra dose gradually. M Kishore MARSH MD DR: FELIX/caden JOB#: [id number] / [id number]
[2020-07-17 06:35] VITALS: BP 119/79
--- NOTE | 2020-07-17 07:43 | PDOC ---
Exam Note: Napoleon Note: This note is a late entry for 07/15/2020 covers elements not covered in my initial note. Subjective: The patient was seen individually in the evening of 07/15/2020 with Eloisa BARR, discussed and reviewed the chart. She slept 9 hours previous night. She has been tearful at times, wanting to go home. I addressed this with her. She was quite confused at one point, had the oxygen wrapped all around her, unable to entangle herself, then nursing staff assisted her. Review of Systems: Shortness of breath on O2 supplements. Ambulation impaired with walker. No CV, , eye, ENT system symptoms on review. Mental Status Exam: The patient is oriented to herself and situation. She is pleasant, verbal, interactive, but quite forgetful and minimizes this. Speech is coherent, has some latency. Abstraction is fair. Computation is impaired. Language function is intact. Attention span is short. Mood an affect anxious. Laboratory Data: Reviewed. Impression: Bipolar 1 disorder depressed with possible psychotic features. Anxiety disorder unspecified. History of major depressive disorder with psychotic features. Mild cognitive impairment. Plan: No change from initial note. Assessment: Vital Signs/I&O: Vital Signs Date Time Temp Pulse Resp B/P (MAP) Pulse Ox O2 Delivery O2 Flow Rate FiO2 07/17/20 06:35 97.2 102 18 119/79 (92) 93 Nasal Cannula 2.0 I & O 07/16/20 07/16/20 07/17/20 15:00 23:00 07:00 Intake Total 1080 ml 580 ml Balance 1080 ml 580 ml Current Medications: Meds: Current Medications Medications (Trade) Dose Ordered Sig/Mya Route PRN Reason Start Time Stop Time Status Last Admin Dose Admin Acetaminophen (Tylenol) 650 mg PRN Q6HRS PRN PO MILD PAIN / TEMP > 100.3'F 07/02/20 10:30 Cancel Multi-Ingredient Ointment (Analgesic [place]) 1 debra PRN QID PRN TP MUSCLE PAIN 07/02/20 10:30 Al Hydroxide/Mg Hydroxide (Mylanta Plus Xs) 15 ml PRN AFTMEALHC PRN PO DYSPEPSIA 07/02/20 10:30 07/07/20 11:15 Magnesium Hydroxide (Milk Of Magnesia) 2,400 mg PRN QHS PRN PO 1st CHOICE CONSTIPATION 07/02/20 10:30 Acetaminophen (Tylenol) 500 mg PRN Q4HRS PRN PO mild pain or fever 07/02/20 11:45 07/12/20 14:13 Acetaminophen (Tylenol) 1,000 mg PRN Q6HRS PRN PO moderate-severe pain or fever 07/02/20 11:45 07/14/20 16:12 Bisacodyl (Dulcolax Tab) 5 mg PRN DAILY PRN PO 2ND CHOICE CONSTIPATION 07/02/20 11:45 Dicyclomine HCl (Bentyl) 20 mg TID PO 07/02/20 14:00 07/16/20 12:32 Diphenoxylate HCl/ Atropine (Lomotil) 2 tab PRN BID PRN PO DIARRHEA 07/02/20 11:45 Fluticasone Propionate (Flonase) 2 spray DAILY NS 07/03/20 09:00 07/16/20 08:26 Furosemide (Lasix) 20 mg BID92 PO 07/02/20 14:00 07/16/20 12:32 Gabapentin (Neurontin) 300 mg QID PO 07/02/20 13:00 07/16/20 17:13 Hydroxyurea (Hydrea) 1,000 mg DAILY PO 07/03/20 09:00 07/16/20 08:27 Levetiracetam (Keppra) 500 mg BID PO 07/02/20 21:00 07/15/20 20:14 DC 07/15/20 07:50 Al Hydroxide/Mg Hydroxide (Mylanta Plus Xs) 15 ml PRN AFTMEALHC PRN PO DYSPEPSIA 07/02/20 11:45 UNV Nystatin (Nystop) 1 debra BID TP 07/02/20 21:00 07/16/20 08:26 Pantoprazole Sodium (Protonix) 40 mg DAILYAC PO 07/03/20 07:30 07/16/20 08:28 Potassium Chloride (Klor-Con) 40 meq DAILY PO 07/03/20 09:00 07/16/20 08:28 Sulfasalazine (Azulfidine) 500 mg TID PO 07/02/20 14:00 07/16/20 12:32 Non-Formulary Medication (Albuterol Sulfate (Albuterol Sulfate Conc Neb Soln)) 1 vial Q4HRS NEB 07/02/20 12:00 UNV Diltiazem HCl (Cardizem) 60 mg BID PO 07/02/20 21:00 07/16/20 08:27 Amylase/Lipase/ Protease (Zenpep 10,000) 2 cap TIDBFRMEAL PO 07/02/20 16:30 07/16/20 17:13 Magnesium Oxide (Magnesium Oxide) 400 mg DAILY PO 07/03/20 09:00 07/16/20 08:33 Mirabegron (Myrbetriq) 50 mg DAILY PO 07/03/20 09:00 07/16/20 08:28 Non-Formulary Medication (Umeclidinium [place] (Incruse Ellipta)) 62.5 mcg DAILY IH 07/03/20 09:00 UNV Clonazepam (KlonoPIN) 1 mg TID PO 07/02/20 14:00 07/09/20 15:15 DC 07/09/20 13:06 Duloxetine HCl (Cymbalta) 30 mg BID PO 07/02/20 21:00 07/16/20 08:28 Trazodone HCl (Desyrel) 100 mg QHS PO 07/02/20 21:00 07/15/20 20:10 Albuterol/ Ipratropium (Combivent Respimat 20-100 Mcg) 1 puff RTQID INH 07/02/20 16:00 07/16/20 17:07 Albuterol Sulfate (Ventolin Hfa Inhaler) 1 puff PRN Q4HRS PRN INH SHORTNESS OF BREATH 07/02/20 13:15 07/07/20 15:24 Olanzapine (ZyPREXA ZYDIS) 2.5 mg PRN Q2HR PRN PO PSYCHOSIS 07/02/20 19:45 07/05/20 14:18 Divalproex Sodium (Depakote Er) 500 mg QHS PO 07/03/20 21:00 07/06/20 18:58 DC 07/05/20 20:16 Vitamin D (Vitamin D3) 50,000 unit WEEKLY PO 07/06/20 18:15 07/13/20 08:16 Divalproex Sodium (Depakote Er) 1,000 mg QHS PO 07/06/20 21:00 07/15/20 20:10 Lidocaine (Lidoderm) 1 patch DAILY08 TD 07/09/20 08:00 07/16/20 08:29 Clonazepam (KlonoPIN) 0.5 mg DAILY PO 07/10/20 09:00 07/16/20 08:59 DC 07/15/20 07:48 Clonazepam (KlonoPIN) 0.5 mg Taper 1400 PO 07/10/20 14:00 07/18/20 13:59 07/16/20 12:32 Clonazepam (KlonoPIN) 0.5 mg Taper 2100 PO 07/09/20 21:00 07/20/20 20:59 07/15/20 20:10 Levetiracetam (Keppra) 250 mg BID PO 07/15/20 21:00 07/16/20 08:28 I have reviewed the current psychotropics carefully including drug interactions. Risk benefit ratio favors no change other than as noted in my dictated progress note. Diagnosis: Problems: (1) Impulse control disorder, unspecified (2) Anxiety disorder, unspecified (3) Major depressive disorder with psychotic features (4) COPD (chronic obstructive pulmonary disease) (5) Bipolar disorder, curr episode mixed, severe, with psychotic features (6) Mild cognitive impairment NITHIN STEVENS MD Jul 17, 2020 07:43
--- NOTE | 2020-07-17 08:00 | PDOC ---
Exam Note: Napoleon Note: This note is a late entry for 07/16/2020 covers elements not covered in my initial note. Subjective: The patient was seen individually in the evening of 07/16/2020 with Eliosa BARR, discussed and reviewed the chart. She slept 9 hours previous night. I met with her in her room. She put herself on the floor in her bathroom, states she fell but in fact nursing staff believed she sat herself down. This is something she was doing at the facility prior to being referred to us as well. I addressed this with her. Review of Systems: Shortness of breath on O2 supplements. Ambulation impaired with walker. No CV, , eye, ENT system symptoms on review. Mental Status Exam: The patient is oriented to herself and situation. Speech is coherent, has some latency. Abstraction is fair. Computation is impaired. Language function is intact. Attention span is short. Mood and affect anxious, labile. Laboratory Data: Reviewed. Impression: Bipolar 1 disorder depressed with possible psychotic features. Anxiety disorder unspecified. History of major depressive disorder with psychotic features. Mild cognitive impairment. Plan: No change from initial note. Assessment: Vital Signs/I&O: Vital Signs Date Time Temp Pulse Resp B/P (MAP) Pulse Ox O2 Delivery O2 Flow Rate FiO2 07/17/20 06:35 97.2 102 18 119/79 (92) 93 Nasal Cannula 2.0 I & O 07/16/20 07/16/20 07/17/20 14:59 22:59 06:59 Intake Total 1080 ml 580 ml Balance 1080 ml 580 ml Current Medications: Meds: Current Medications Medications (Trade) Dose Ordered Sig/Mya Route PRN Reason Start Time Stop Time Status Last Admin Dose Admin Acetaminophen (Tylenol) 650 mg PRN Q6HRS PRN PO MILD PAIN / TEMP > 100.3'F 07/02/20 10:30 Cancel Multi-Ingredient Ointment (Analgesic [place]) 1 debra PRN QID PRN TP MUSCLE PAIN 07/02/20 10:30 Al Hydroxide/Mg Hydroxide (Mylanta Plus Xs) 15 ml PRN AFTMEALHC PRN PO DYSPEPSIA 07/02/20 10:30 07/07/20 11:15 Magnesium Hydroxide (Milk Of Magnesia) 2,400 mg PRN QHS PRN PO 1st CHOICE CONSTIPATION 07/02/20 10:30 Acetaminophen (Tylenol) 500 mg PRN Q4HRS PRN PO mild pain or fever 07/02/20 11:45 07/12/20 14:13 Acetaminophen (Tylenol) 1,000 mg PRN Q6HRS PRN PO moderate-severe pain or fever 07/02/20 11:45 07/14/20 16:12 Bisacodyl (Dulcolax Tab) 5 mg PRN DAILY PRN PO 2ND CHOICE CONSTIPATION 07/02/20 11:45 Dicyclomine HCl (Bentyl) 20 mg TID PO 07/02/20 14:00 07/16/20 12:32 Diphenoxylate HCl/ Atropine (Lomotil) 2 tab PRN BID PRN PO DIARRHEA 07/02/20 11:45 Fluticasone Propionate (Flonase) 2 spray DAILY NS 07/03/20 09:00 07/16/20 08:26 Furosemide (Lasix) 20 mg BID92 PO 07/02/20 14:00 07/16/20 12:32 Gabapentin (Neurontin) 300 mg QID PO 07/02/20 13:00 07/16/20 17:13 Hydroxyurea (Hydrea) 1,000 mg DAILY PO 07/03/20 09:00 07/16/20 08:27 Levetiracetam (Keppra) 500 mg BID PO 07/02/20 21:00 07/15/20 20:14 DC 07/15/20 07:50 Al Hydroxide/Mg Hydroxide (Mylanta Plus Xs) 15 ml PRN AFTMEALHC PRN PO DYSPEPSIA 07/02/20 11:45 UNV Nystatin (Nystop) 1 debra BID TP 07/02/20 21:00 07/16/20 08:26 Pantoprazole Sodium (Protonix) 40 mg DAILYAC PO 07/03/20 07:30 07/16/20 08:28 Potassium Chloride (Klor-Con) 40 meq DAILY PO 07/03/20 09:00 07/16/20 08:28 Sulfasalazine (Azulfidine) 500 mg TID PO 07/02/20 14:00 07/16/20 12:32 Non-Formulary Medication (Albuterol Sulfate (Albuterol Sulfate Conc Neb Soln)) 1 vial Q4HRS NEB 07/02/20 12:00 UNV Diltiazem HCl (Cardizem) 60 mg BID PO 07/02/20 21:00 07/16/20 08:27 Amylase/Lipase/ Protease (Zenpep 10,000) 2 cap TIDBFRMEAL PO 07/02/20 16:30 07/16/20 17:13 Magnesium Oxide (Magnesium Oxide) 400 mg DAILY PO 07/03/20 09:00 07/16/20 08:33 Mirabegron (Myrbetriq) 50 mg DAILY PO 07/03/20 09:00 07/16/20 08:28 Non-Formulary Medication (Umeclidinium [place] (Incruse Ellipta)) 62.5 mcg DAILY IH 07/03/20 09:00 UNV Clonazepam (KlonoPIN) 1 mg TID PO 07/02/20 14:00 07/09/20 15:15 DC 07/09/20 13:06 Duloxetine HCl (Cymbalta) 30 mg BID PO 07/02/20 21:00 07/16/20 08:28 Trazodone HCl (Desyrel) 100 mg QHS PO 07/02/20 21:00 07/15/20 20:10 Albuterol/ Ipratropium (Combivent Respimat 20-100 Mcg) 1 puff RTQID INH 07/02/20 16:00 07/16/20 17:07 Albuterol Sulfate (Ventolin Hfa Inhaler) 1 puff PRN Q4HRS PRN INH SHORTNESS OF BREATH 07/02/20 13:15 07/07/20 15:24 Olanzapine (ZyPREXA ZYDIS) 2.5 mg PRN Q2HR PRN PO PSYCHOSIS 07/02/20 19:45 07/05/20 14:18 Divalproex Sodium (Depakote Er) 500 mg QHS PO 07/03/20 21:00 07/06/20 18:58 DC 07/05/20 20:16 Vitamin D (Vitamin D3) 50,000 unit WEEKLY PO 07/06/20 18:15 07/13/20 08:16 Divalproex Sodium (Depakote Er) 1,000 mg QHS PO 07/06/20 21:00 07/15/20 20:10 Lidocaine (Lidoderm) 1 patch DAILY08 TD 07/09/20 08:00 07/16/20 08:29 Clonazepam (KlonoPIN) 0.5 mg DAILY PO 07/10/20 09:00 07/16/20 08:59 DC 07/15/20 07:48 Clonazepam (KlonoPIN) 0.5 mg Taper 1400 PO 07/10/20 14:00 07/18/20 13:59 07/16/20 12:32 Clonazepam (KlonoPIN) 0.5 mg Taper 2100 PO 07/09/20 21:00 07/20/20 20:59 07/15/20 20:10 Levetiracetam (Keppra) 250 mg BID PO 07/15/20 21:00 07/16/20 08:28 I have reviewed the current psychotropics carefully including drug interactions. Risk benefit ratio favors no change other than as noted in my dictated progress note. Diagnosis: Problems: (1) Impulse control disorder, unspecified (2) Anxiety disorder, unspecified (3) Major depressive disorder with psychotic features (4) COPD (chronic obstructive pulmonary disease) (5) Bipolar disorder, curr episode mixed, severe, with psychotic features (6) Mild cognitive impairment NITHIN STEVENS MD Jul 17, 2020 08:00
[2020-07-17] MEDS: IPRATROPIUM/ALBUTEROL 20/100mcg/INH INHALER. INH SCH ×4 (08:32→21:01)
[2020-07-17] MEDS: PANTOPRAZOLE 40 MG TABLET. PO SCH (08:33)
[2020-07-17] MEDS: LIPASE/PROTEAS/AMYLAS 10/32/42 CAPSULE.DR. PO SCH ×3 (08:33→16:57)
[2020-07-17] MEDS: DICYCLOMINE HCL 20 MG TABLET PO SCH ×3 (08:33→21:00)
[2020-07-17] MEDS: sulfaSALAzine 500 MG TABLET PO SCH ×3 (08:33→17:01)
[2020-07-17] MEDS: DULoxetine HCL 30 MG CAPSULE.DR PO SCH ×2 (08:34→20:59)
[2020-07-17] MEDS: dilTIAZem HCL 30 MG TABLET PO SCH ×2 (08:34→20:58)
[2020-07-17] MEDS: LIDOCAINE (700MG/PATCH) PATCH. TD SCH (08:36)
[2020-07-17] MEDS: levETIRAcetam 250 MG TABLET PO SCH ×2 (08:36→20:59)
[2020-07-17] MEDS: HYDROXYUREA 500 MG CAPSULE PO SCH (08:36)
[2020-07-17] MEDS: POTASSIUM CHLORIDE 20 MEQ TABLET.ER. PO SCH (08:37)
[2020-07-17] MEDS: MAGNESIUM OXIDE 400 MG TABLET PO SCH (08:37)
[2020-07-17] MEDS: FUROSEMIDE 20 MG TABLET PO SCH ×2 (08:37→12:20)
[2020-07-17] MEDS: GABAPENTIN 300 MG CAPSULE. PO SCH ×4 (08:38→20:59)
[2020-07-17] MEDS: MIRABEGRON 25 MG TAB.ER.24H PO SCH (08:38)
[2020-07-17] MEDS: NYSTATIN TOPICAL POWDER 15GM BOTTLE. TP SCH ×2 (09:00→21:00)
[2020-07-17] MEDS: FLUTICASONE 50MCG/NASAL SPRAY 16GM BOTTLE. NS SCH (09:00)
[2020-07-17] MEDS: clonazePAM 0.5 MG TABLET PO SCH ×2 (12:25→20:59)
[2020-07-17 16:21] VITALS: BP 102/56
[2020-07-17 16:24] VITALS: BP 102/56
[2020-07-17] MEDS: DIVALPROEX ER 500 MG TAB.ER.24H PO SCH (20:59)
[2020-07-17] MEDS: traZODone 100 MG TABLET. PO SCH (20:59)
--- NOTE | 2020-07-17 21:05 | PDOC ---
Exam Note: Napoleon Note: Please also refer to the separate dictated note~for this date of service dictated separately.~Patient seen individually. Discussed the patient with Nursing staff reviewed the chart.~Reviewed interim history and current functioning. Reviewed vital signs,~Labs/ Radiology~and current medications noted below. Continue current treatment with the changes noted in the dictated addendum note Assessment: Vital Signs/I&O: Vital Signs Date Time Temp Pulse Resp B/P (MAP) Pulse Ox O2 Delivery O2 Flow Rate FiO2 07/17/20 20:58 68 102/56 07/17/20 16:24 98.4 18 94 Nasal Cannula 2.0 I & O 07/16/20 07/16/20 07/17/20 15:00 23:00 07:00 Intake Total 1080 ml 580 ml Balance 1080 ml 580 ml Current Medications: Meds: Current Medications Medications (Trade) Dose Ordered Sig/Mya Route PRN Reason Start Time Stop Time Status Last Admin Dose Admin Acetaminophen (Tylenol) 650 mg PRN Q6HRS PRN PO MILD PAIN / TEMP > 100.3'F 07/02/20 10:30 Cancel Multi-Ingredient Ointment (Analgesic [place]) 1 debra PRN QID PRN TP MUSCLE PAIN 07/02/20 10:30 Al Hydroxide/Mg Hydroxide (Mylanta Plus Xs) 15 ml PRN AFTMEALHC PRN PO DYSPEPSIA 07/02/20 10:30 07/07/20 11:15 Magnesium Hydroxide (Milk Of Magnesia) 2,400 mg PRN QHS PRN PO 1st CHOICE CONSTIPATION 07/02/20 10:30 Acetaminophen (Tylenol) 500 mg PRN Q4HRS PRN PO mild pain or fever 07/02/20 11:45 07/12/20 14:13 Acetaminophen (Tylenol) 1,000 mg PRN Q6HRS PRN PO moderate-severe pain or fever 07/02/20 11:45 07/14/20 16:12 Bisacodyl (Dulcolax Tab) 5 mg PRN DAILY PRN PO 2ND CHOICE CONSTIPATION 07/02/20 11:45 Dicyclomine HCl (Bentyl) 20 mg TID PO 07/02/20 14:00 07/17/20 21:00 Diphenoxylate HCl/ Atropine (Lomotil) 2 tab PRN BID PRN PO DIARRHEA 07/02/20 11:45 Fluticasone Propionate (Flonase) 2 spray DAILY NS 07/03/20 09:00 07/16/20 08:26 Furosemide (Lasix) 20 mg BID92 PO 07/02/20 14:00 07/17/20 12:20 Gabapentin (Neurontin) 300 mg QID PO 07/02/20 13:00 07/17/20 20:59 Hydroxyurea (Hydrea) 1,000 mg DAILY PO 07/03/20 09:00 07/17/20 08:36 Levetiracetam (Keppra) 500 mg BID PO 07/02/20 21:00 07/15/20 20:14 DC 07/15/20 07:50 Al Hydroxide/Mg Hydroxide (Mylanta Plus Xs) 15 ml PRN AFTMEALHC PRN PO DYSPEPSIA 07/02/20 11:45 UNV Nystatin (Nystop) 1 debra BID TP 07/02/20 21:00 07/17/20 21:00 Pantoprazole Sodium (Protonix) 40 mg DAILYAC PO 07/03/20 07:30 07/17/20 08:33 Potassium Chloride (Klor-Con) 40 meq DAILY PO 07/03/20 09:00 07/17/20 08:37 Sulfasalazine (Azulfidine) 500 mg TID PO 07/02/20 14:00 07/17/20 17:01 Non-Formulary Medication (Albuterol Sulfate (Albuterol Sulfate Conc Neb Soln)) 1 vial Q4HRS NEB 07/02/20 12:00 UNV Diltiazem HCl (Cardizem) 60 mg BID PO 07/02/20 21:00 07/17/20 20:58 Amylase/Lipase/ Protease (Zenpep 10,000) 2 cap TIDBFRMEAL PO 07/02/20 16:30 07/17/20 16:57 Magnesium Oxide (Magnesium Oxide) 400 mg DAILY PO 07/03/20 09:00 07/17/20 08:37 Mirabegron (Myrbetriq) 50 mg DAILY PO 07/03/20 09:00 07/17/20 08:38 Non-Formulary Medication (Umeclidinium [place] (Incruse Ellipta)) 62.5 mcg DAILY IH 07/03/20 09:00 UNV Clonazepam (KlonoPIN) 1 mg TID PO 07/02/20 14:00 07/09/20 15:15 DC 07/09/20 13:06 Duloxetine HCl (Cymbalta) 30 mg BID PO 07/02/20 21:00 07/17/20 20:59 Trazodone HCl (Desyrel) 100 mg QHS PO 07/02/20 21:00 07/17/20 20:59 Albuterol/ Ipratropium (Combivent Respimat 20-100 Mcg) 1 puff RTQID INH 07/02/20 16:00 07/17/20 21:01 Albuterol Sulfate (Ventolin Hfa Inhaler) 1 puff PRN Q4HRS PRN INH SHORTNESS OF BREATH 07/02/20 13:15 07/07/20 15:24 Olanzapine (ZyPREXA ZYDIS) 2.5 mg PRN Q2HR PRN PO PSYCHOSIS 07/02/20 19:45 07/05/20 14:18 Divalproex Sodium (Depakote Er) 500 mg QHS PO 07/03/20 21:00 07/06/20 18:58 DC 07/05/20 20:16 Vitamin D (Vitamin D3) 50,000 unit WEEKLY PO 07/06/20 18:15 07/13/20 08:16 Divalproex Sodium (Depakote Er) 1,000 mg QHS PO 07/06/20 21:00 07/17/20 20:59 Lidocaine (Lidoderm) 1 patch DAILY08 TD 07/09/20 08:00 07/17/20 08:36 Clonazepam (KlonoPIN) 0.5 mg DAILY PO 07/10/20 09:00 07/16/20 08:59 DC 07/15/20 07:48 Clonazepam (KlonoPIN) 0.5 mg Taper 1400 PO 07/10/20 14:00 07/18/20 13:59 07/17/20 12:25 Clonazepam (KlonoPIN) 0.5 mg Taper 2100 PO 07/09/20 21:00 07/20/20 20:59 07/17/20 20:59 Levetiracetam (Keppra) 250 mg BID PO 07/15/20 21:00 07/17/20 20:59 I have reviewed the current psychotropics carefully including drug interactions. Risk benefit ratio favors no change other than as noted in my dictated progress note. Diagnosis: Problems: (1) Impulse control disorder, unspecified (2) Anxiety disorder, unspecified (3) Major depressive disorder with psychotic features (4) Person under investigation for COVID-19 (5) Bipolar disorder, curr episode mixed, severe, with psychotic features (6) Mild cognitive impairment NITHIN STEVENS MD Jul 17, 2020 21:05
--- NOTE | 2020-07-17 21:11 | PN ---
DATE: SUBJECTIVE: The patient denies any new medical or neurological complaints. She has not had any seizure since admission; however, we have been tapering her dose of Keppra over the last few days, hoping we will DC Keppra completely by tomorrow. OBJECTIVE: GENERAL: Well-developed, well-nourished female, not in acute distress. VITAL SIGNS: Blood pressure 102/56, respiratory rate 18, pulse is 68 and regular, temperature 98.1, oxygen saturation is 94% on 2 liters by nasal cannula. HEENT: Normocephalic, atraumatic, otherwise unremarkable. NECK: Supple. Negative for carotid bruit, lymphadenopathy or thyromegaly. LUNGS: Clear to A and P. CARDIOVASCULAR: Regular rate and rhythm, normal S1, S2. ABDOMEN: Soft. Bowel sounds positive. EXTREMITIES: Negative for cyanosis, clubbing or edema. NEUROLOGICAL EXAM: Normal neurological examination: The patient is alert and oriented x 3. Speech is fluent. There is no language dysfunction. Memory, judgment, and abstracting thinking are intact. Cranial nerves are intact as well. No focal motor or sensory deficit. Deep tendon reflexes were symmetric and hypoactive with absent Achilles responses. Gait and coordination were normal. IMPRESSION: 1. Longstanding history of seizure, etiology uncertain, but no recurrent seizure since admission. She is taking Depakote with therapeutic level, followed by depression. 2. Multiple medical problems include chronic low back pain, gastroesophageal reflux disease, osteoarthritis and anemia. RECOMMENDATIONS: 1. Continue with current medical and psychiatric care. 2. We will skip Keppra dose tonight. M Kishore MARSH MD DR: FELIX/caden JOB#: [id number] / [id number]
[2020-07-18] MEDS ORDERED: CHOL500021 PO (00:46)
[2020-07-18] MEDS ORDERED: DIVA500T17 PO (00:47)
[2020-07-18] MEDS ORDERED: LIDO700A21 TP (00:48)
[2020-07-18] MEDS ORDERED: MAGN24003 PO (00:49)
[2020-07-18] MEDS ORDERED: METH28OI2 TP (00:50)
[2020-07-18 06:28] VITALS: BP 115/63
[2020-07-18 08:05] VITALS: BP 115/63
[2020-07-18] MEDS: IPRATROPIUM/ALBUTEROL 20/100mcg/INH INHALER. INH SCH ×2 (08:05→11:49)
[2020-07-18] MEDS: dilTIAZem HCL 30 MG TABLET PO SCH (08:05)
[2020-07-18] MEDS: GABAPENTIN 300 MG CAPSULE. PO SCH ×2 (08:05→12:53)
[2020-07-18] MEDS: DICYCLOMINE HCL 20 MG TABLET PO SCH ×2 (08:06→12:53)
[2020-07-18] MEDS: PANTOPRAZOLE 40 MG TABLET. PO SCH (08:06)
[2020-07-18] MEDS: POTASSIUM CHLORIDE 20 MEQ TABLET.ER. PO SCH (08:06)
[2020-07-18] MEDS: LIPASE/PROTEAS/AMYLAS 10/32/42 CAPSULE.DR. PO SCH ×2 (08:06→11:49)
[2020-07-18] MEDS: levETIRAcetam 250 MG TABLET PO SCH (08:07)
[2020-07-18] MEDS: DULoxetine HCL 30 MG CAPSULE.DR PO SCH (08:07)
[2020-07-18] MEDS: FUROSEMIDE 20 MG TABLET PO SCH ×2 (08:07→12:53)
[2020-07-18] MEDS: MAGNESIUM OXIDE 400 MG TABLET PO SCH (08:07)
[2020-07-18] MEDS: sulfaSALAzine 500 MG TABLET PO SCH ×2 (08:10→12:54)
[2020-07-18] MEDS: HYDROXYUREA 500 MG CAPSULE PO SCH (08:10)
[2020-07-18] MEDS: MIRABEGRON 25 MG TAB.ER.24H PO SCH (08:11)
[2020-07-18] MEDS: NYSTATIN TOPICAL POWDER 15GM BOTTLE. TP SCH (08:11)
[2020-07-18] MEDS: LIDOCAINE (700MG/PATCH) PATCH. TD SCH (08:11)
--- NOTE | 2020-07-18 08:34 | PDOC ---
Exam Note: Napoleon Note: This note is a late entry for 07/17/2020 covers elements not covered in my initial note. Subjective: The patient was seen individually in the evening of 07/17/2020 with Shweta BARR, discussed and reviewed the chart. She slept 9 hours previous night. The patient refused her h.s. medications but has generally had a good day. Short-term memory is impaired. Review of Systems: Shortness of breath on O2 supplements. Impaired ambulation with walker. No CV, , eye, ENT system symptoms on review. Mental Status Exam: The patient is oriented to herself and situation. Speech is coherent, has some latency. Abstraction is fair. Computation is impaired. Language function is intact. Attention span is short. Mood and affect anxious, labile. Laboratory Data: Reviewed. Impression: Bipolar 1 disorder depressed with possible psychotic features. Anxiety disorder unspecified. History of major depressive disorder with psychotic features. Mild cognitive impairment. Plan: No change from initial note. Assessment: Vital Signs/I&O: Vital Signs Date Time Temp Pulse Resp B/P (MAP) Pulse Ox O2 Delivery O2 Flow Rate FiO2 07/18/20 08:05 104 115/63 07/18/20 06:28 98.1 20 92 Nasal Cannula 2.0 I & O 07/17/20 07/17/20 07/18/20 15:00 23:00 07:00 Intake Total 840 ml 480 ml Balance 840 ml 480 ml Current Medications: Meds: Current Medications Medications (Trade) Dose Ordered Sig/Mya Route PRN Reason Start Time Stop Time Status Last Admin Dose Admin Acetaminophen (Tylenol) 650 mg PRN Q6HRS PRN PO MILD PAIN / TEMP > 100.3'F 07/02/20 10:30 Cancel Multi-Ingredient Ointment (Analgesic [place]) 1 debra PRN QID PRN TP MUSCLE PAIN 07/02/20 10:30 Al Hydroxide/Mg Hydroxide (Mylanta Plus Xs) 15 ml PRN AFTMEALHC PRN PO DYSPEPSIA 07/02/20 10:30 07/07/20 11:15 Magnesium Hydroxide (Milk Of Magnesia) 2,400 mg PRN QHS PRN PO 1st CHOICE CONSTIPATION 07/02/20 10:30 Acetaminophen (Tylenol) 500 mg PRN Q4HRS PRN PO mild pain or fever 07/02/20 11:45 07/12/20 14:13 Acetaminophen (Tylenol) 1,000 mg PRN Q6HRS PRN PO moderate-severe pain or fever 07/02/20 11:45 07/14/20 16:12 Bisacodyl (Dulcolax Tab) 5 mg PRN DAILY PRN PO 2ND CHOICE CONSTIPATION 07/02/20 11:45 Dicyclomine HCl (Bentyl) 20 mg TID PO 07/02/20 14:00 07/18/20 08:06 Diphenoxylate HCl/ Atropine (Lomotil) 2 tab PRN BID PRN PO DIARRHEA 07/02/20 11:45 Fluticasone Propionate (Flonase) 2 spray DAILY NS 07/03/20 09:00 07/16/20 08:26 Furosemide (Lasix) 20 mg BID92 PO 07/02/20 14:00 07/18/20 08:07 Gabapentin (Neurontin) 300 mg QID PO 07/02/20 13:00 07/18/20 08:05 Hydroxyurea (Hydrea) 1,000 mg DAILY PO 07/03/20 09:00 07/18/20 08:10 Levetiracetam (Keppra) 500 mg BID PO 07/02/20 21:00 07/15/20 20:14 DC 07/15/20 07:50 Al Hydroxide/Mg Hydroxide (Mylanta Plus Xs) 15 ml PRN AFTMEALHC PRN PO DYSPEPSIA 07/02/20 11:45 UNV Nystatin (Nystop) 1 debra BID TP 07/02/20 21:00 07/18/20 08:11 Pantoprazole Sodium (Protonix) 40 mg DAILYAC PO 07/03/20 07:30 07/18/20 08:06 Potassium Chloride (Klor-Con) 40 meq DAILY PO 07/03/20 09:00 07/18/20 08:06 Sulfasalazine (Azulfidine) 500 mg TID PO 07/02/20 14:00 07/18/20 08:10 Non-Formulary Medication (Albuterol Sulfate (Albuterol Sulfate Conc Neb Soln)) 1 vial Q4HRS NEB 07/02/20 12:00 UNV Diltiazem HCl (Cardizem) 60 mg BID PO 07/02/20 21:00 07/18/20 08:05 Amylase/Lipase/ Protease (Zenpep 10,000) 2 cap TIDBFRMEAL PO 07/02/20 16:30 07/18/20 08:06 Magnesium Oxide (Magnesium Oxide) 400 mg DAILY PO 07/03/20 09:00 07/18/20 08:07 Mirabegron (Myrbetriq) 50 mg DAILY PO 07/03/20 09:00 07/18/20 08:11 Non-Formulary Medication (Umeclidinium [place] (Incruse Ellipta)) 62.5 mcg DAILY IH 07/03/20 09:00 UNV Clonazepam (KlonoPIN) 1 mg TID PO 07/02/20 14:00 07/09/20 15:15 DC 07/09/20 13:06 Duloxetine HCl (Cymbalta) 30 mg BID PO 07/02/20 21:00 07/18/20 08:07 Trazodone HCl (Desyrel) 100 mg QHS PO 07/02/20 21:00 07/17/20 20:59 Albuterol/ Ipratropium (Combivent Respimat 20-100 Mcg) 1 puff RTQID INH 07/02/20 16:00 07/18/20 08:05 Albuterol Sulfate (Ventolin Hfa Inhaler) 1 puff PRN Q4HRS PRN INH SHORTNESS OF BREATH 07/02/20 13:15 07/07/20 15:24 Olanzapine (ZyPREXA ZYDIS) 2.5 mg PRN Q2HR PRN PO PSYCHOSIS 07/02/20 19:45 07/05/20 14:18 Divalproex Sodium (Depakote Er) 500 mg QHS PO 07/03/20 21:00 07/06/20 18:58 DC 07/05/20 20:16 Vitamin D (Vitamin D3) 50,000 unit WEEKLY PO 07/06/20 18:15 07/13/20 08:16 Divalproex Sodium (Depakote Er) 1,000 mg QHS PO 07/06/20 21:00 07/17/20 20:59 Lidocaine (Lidoderm) 1 patch DAILY08 TD 07/09/20 08:00 07/18/20 08:11 Clonazepam (KlonoPIN) 0.5 mg DAILY PO 07/10/20 09:00 07/16/20 08:59 DC 07/15/20 07:48 Clonazepam (KlonoPIN) 0.5 mg Taper 1400 PO 07/10/20 14:00 07/18/20 13:59 07/17/20 12:25 Clonazepam (KlonoPIN) 0.5 mg Taper 2100 PO 07/09/20 21:00 07/20/20 20:59 07/17/20 20:59 Levetiracetam (Keppra) 250 mg BID PO 07/15/20 21:00 07/18/20 08:07 I have reviewed the current psychotropics carefully including drug interactions. Risk benefit ratio favors no change other than as noted in my dictated progress note. Diagnosis: Problems: (1) Impulse control disorder, unspecified (2) Anxiety disorder, unspecified (3) Major depressive disorder with psychotic features (4) COPD (chronic obstructive pulmonary disease) (5) Bipolar disorder, curr episode mixed, severe, with psychotic features (6) Mild cognitive impairment NITHIN STEVENS MD Jul 18, 2020 08:34
[2020-07-18] MEDS: FLUTICASONE 50MCG/NASAL SPRAY 16GM BOTTLE. NS SCH (09:00)
--- NOTE | 2020-07-18 19:45 | PN ---
DATE: 07/18/2020 SUBJECTIVE: The patient denies any new medical or neurological complaints. She has not had any recurrent seizures since admission. OBJECTIVE: GENERAL: Well-developed, well-nourished female, not in acute distress. VITAL SIGNS: Blood pressure 115/63, respiratory rate 20, pulse is 104, temperature 98.1, oxygen saturation 2 liters by nasal cannula. HEENT: Normocephalic, atraumatic, otherwise unremarkable. NECK: Supple. Negative for carotid bruit, lymphadenopathy or thyromegaly. LUNGS: Clear to A and P. CARDIOVASCULAR: Regular rate and rhythm, normal S1, S2. There is no S3, S4 or murmur. ABDOMEN: Soft. Bowel sounds positive. EXTREMITIES: Negative for cyanosis, clubbing or edema. NEUROLOGICAL EXAM: Mental Status: The patient is alert and oriented x 3. The speech is fluent. There is no language dysfunction. Cranial nerves are intact. No focal motor or sensory deficit. Deep tendon reflexes were symmetric and hypoactive without pathologic responses. Gait, the patient uses a walker for ambulation. IMPRESSION: 1. History of seizure disorder of unknown etiology. No recurrent seizures since admission. 2. Multiple medical problems include chronic low back pain. 3. Gastroesophageal reflux disease. 4. Osteoarthritis. 5. Anemia. 6. Chronic obstructive pulmonary disease. RECOMMENDATIONS: Continue with current medical and psychiatric care. The patient is on oxygen supply 2 liters via nasal cannula. She will be off Keppra today. The patient is neurologically stable. M Kishore MARSH MD DR: FELIX/caden JOB#: [id number] / [id number]
--- NOTE | 2020-07-18 21:30 | PDOC ---
Exam Note: Napoleon Note: Please also refer to the separate dictated note~for this date of service dictated separately.~Patient seen individually. Discussed the patient with Nursing staff reviewed the chart.~Reviewed interim history and current functioning. Reviewed vital signs,~Labs/ Radiology~and current medications noted below. Continue current treatment with the changes noted in the dictated addendum note Assessment: Vital Signs/I&O: Vital Signs Date Time Temp Pulse Resp B/P (MAP) Pulse Ox O2 Delivery O2 Flow Rate FiO2 07/18/20 08:05 104 115/63 07/18/20 06:28 98.1 20 92 Nasal Cannula 2.0 I & O 07/17/20 07/17/20 07/18/20 15:00 23:00 07:00 Intake Total 840 ml 480 ml Balance 840 ml 480 ml Current Medications: Meds: Current Medications Medications (Trade) Dose Ordered Sig/Mya Route PRN Reason Start Time Stop Time Status Last Admin Dose Admin Acetaminophen (Tylenol) 650 mg PRN Q6HRS PRN PO MILD PAIN / TEMP > 100.3'F 07/02/20 10:30 Cancel Multi-Ingredient Ointment (Analgesic [place]) 1 debra PRN QID PRN TP MUSCLE PAIN 07/02/20 10:30 07/18/20 16:07 DC Al Hydroxide/Mg Hydroxide (Mylanta Plus Xs) 15 ml PRN AFTMEALHC PRN PO DYSPEPSIA 07/02/20 10:30 07/18/20 16:07 DC 07/07/20 11:15 Magnesium Hydroxide (Milk Of Magnesia) 2,400 mg PRN QHS PRN PO 1st CHOICE CONSTIPATION 07/02/20 10:30 07/18/20 16:07 DC Acetaminophen (Tylenol) 500 mg PRN Q4HRS PRN PO mild pain or fever 07/02/20 11:45 07/18/20 16:07 DC 07/12/20 14:13 Acetaminophen (Tylenol) 1,000 mg PRN Q6HRS PRN PO moderate-severe pain or fever 07/02/20 11:45 07/18/20 16:07 DC 07/14/20 16:12 Bisacodyl (Dulcolax Tab) 5 mg PRN DAILY PRN PO 2ND CHOICE CONSTIPATION 07/02/20 11:45 07/18/20 16:07 DC Dicyclomine HCl (Bentyl) 20 mg TID PO 07/02/20 14:00 07/18/20 16:07 DC 07/18/20 12:53 Diphenoxylate HCl/ Atropine (Lomotil) 2 tab PRN BID PRN PO DIARRHEA 07/02/20 11:45 07/18/20 16:07 DC Fluticasone Propionate (Flonase) 2 spray DAILY NS 07/03/20 09:00 07/18/20 16:07 DC 07/16/20 08:26 Furosemide (Lasix) 20 mg BID92 PO 07/02/20 14:00 07/18/20 16:07 DC 07/18/20 12:53 Gabapentin (Neurontin) 300 mg QID PO 07/02/20 13:00 07/18/20 16:07 DC 07/18/20 12:53 Hydroxyurea (Hydrea) 1,000 mg DAILY PO 07/03/20 09:00 07/18/20 16:07 DC 07/18/20 08:10 Levetiracetam (Keppra) 500 mg BID PO 07/02/20 21:00 07/15/20 20:14 DC 07/15/20 07:50 Al Hydroxide/Mg Hydroxide (Mylanta Plus Xs) 15 ml PRN AFTMEALHC PRN PO DYSPEPSIA 07/02/20 11:45 UNV Nystatin (Nystop) 1 debra BID TP 07/02/20 21:00 07/18/20 16:07 DC 07/18/20 08:11 Pantoprazole Sodium (Protonix) 40 mg DAILYAC PO 07/03/20 07:30 07/18/20 16:07 DC 07/18/20 08:06 Potassium Chloride (Klor-Con) 40 meq DAILY PO 07/03/20 09:00 07/18/20 16:07 DC 07/18/20 08:06 Sulfasalazine (Azulfidine) 500 mg TID PO 07/02/20 14:00 07/18/20 16:07 DC 07/18/20 12:54 Non-Formulary Medication (Albuterol Sulfate (Albuterol Sulfate Conc Neb Soln)) 1 vial Q4HRS NEB 07/02/20 12:00 UNV Diltiazem HCl (Cardizem) 60 mg BID PO 07/02/20 21:00 07/18/20 16:07 DC 07/18/20 08:05 Amylase/Lipase/ Protease (Zenpep 10,000) 2 cap TIDBFRMEAL PO 07/02/20 16:30 07/18/20 16:07 DC 07/18/20 11:49 Magnesium Oxide (Magnesium Oxide) 400 mg DAILY PO 07/03/20 09:00 07/18/20 16:07 DC 07/18/20 08:07 Mirabegron (Myrbetriq) 50 mg DAILY PO 07/03/20 09:00 07/18/20 16:07 DC 07/18/20 08:11 Non-Formulary Medication (Umeclidinium [place] (Incruse Ellipta)) 62.5 mcg DAILY IH 07/03/20 09:00 UNV Clonazepam (KlonoPIN) 1 mg TID PO 07/02/20 14:00 07/09/20 15:15 DC 07/09/20 13:06 Duloxetine HCl (Cymbalta) 30 mg BID PO 07/02/20 21:00 07/18/20 16:07 DC 07/18/20 08:07 Trazodone HCl (Desyrel) 100 mg QHS PO 07/02/20 21:00 07/18/20 16:07 DC 07/17/20 20:59 Albuterol/ Ipratropium (Combivent Respimat 20-100 Mcg) 1 puff RTQID INH 07/02/20 16:00 07/18/20 16:07 DC 07/18/20 11:49 Albuterol Sulfate (Ventolin Hfa Inhaler) 1 puff PRN Q4HRS PRN INH SHORTNESS OF BREATH 07/02/20 13:15 07/18/20 16:07 DC 07/07/20 15:24 Olanzapine (ZyPREXA ZYDIS) 2.5 mg PRN Q2HR PRN PO PSYCHOSIS 07/02/20 19:45 07/18/20 16:07 DC 07/05/20 14:18 Divalproex Sodium (Depakote Er) 500 mg QHS PO 07/03/20 21:00 07/06/20 18:58 DC 07/05/20 20:16 Vitamin D (Vitamin D3) 50,000 unit WEEKLY PO 07/06/20 18:15 07/18/20 16:07 DC 07/13/20 08:16 Divalproex Sodium (Depakote Er) 1,000 mg QHS PO 07/06/20 21:00 07/18/20 16:07 DC 07/17/20 20:59 Lidocaine (Lidoderm) 1 patch DAILY08 TD 07/09/20 08:00 07/18/20 16:07 DC 07/18/20 08:11 Clonazepam (KlonoPIN) 0.5 mg DAILY PO 07/10/20 09:00 07/16/20 08:59 DC 07/15/20 07:48 Clonazepam (KlonoPIN) 0.5 mg Taper 1400 PO 07/10/20 14:00 07/18/20 13:59 DC 07/17/20 12:25 Clonazepam (KlonoPIN) 0.5 mg Taper 2100 PO 07/09/20 21:00 07/18/20 16:07 DC 07/17/20 20:59 Levetiracetam (Keppra) 250 mg BID PO 07/15/20 21:00 07/18/20 16:07 DC 07/18/20 08:07 I have reviewed the current psychotropics carefully including drug interactions. Risk benefit ratio favors no change other than as noted in my dictated progress note. Diagnosis: Problems: (1) Impulse control disorder, unspecified (2) Anxiety disorder, unspecified (3) Major depressive disorder with psychotic features (4) Bipolar disorder, curr episode mixed, severe, with psychotic features (5) Mild cognitive impairment NITHIN STEVENS MD Jul 18, 2020 21:30
--- NOTE | 2020-07-18 21:59 | DS ---
DATE OF DISCHARGE: 07/18/2020 DISCHARGE SUMMARY/PSYCHIATRIC PROGRESS NOTE This note covers the elements not covered in my initial note on 07/18/2020. REASON FOR ADMISSION: Please refer to the admission history for details. Briefly, the patient is a 69-year-old female referred to us from [facility] on account of increasing mood swings and agitation. She had been slamming her head into the wall, was having active hallucinations, and feeling like she would be better off . She was acting like she could not hear, refusing medications and cares. She had failed outpatient psychiatric interventions and was having significant mood swings and referred for inpatient psychiatric stabilization. SIGNIFICANT FINDINGS AND CLINICAL COURSE: Following admission, the patient was seen daily individually by myself from a psychiatric standpoint, medical followup with Dr. Clark/Dr. Cheng. The patient was generally oriented, but had short-term memory deficits, anxious, restless, frequently dropping herself on the floor. She did have significant mood swings, raising a question of bipolar disorder, depressed. She finally seemed to stabilize on a combination of Depakote ER 1000 mg at bedtime with a Valproic acid level therapeutic at 57. Klonopin was being tapered until it would be discontinued. She was on Cymbalta 30 mg b.i.d., Keppra 250 mg b.i.d. for history of seizure disorder, trazodone 100 mg at bedtime p.r.n., Zyprexa p.r.n. REVIEW OF SYSTEMS: Prior to discharge on 07/18/2020, ambulation impaired with walker, shortness of breath, on O2 supplements. No CV, GI, , eye system symptoms on review. MENTAL STATUS EXAM: Reasonably oriented. Speech is coherent, less pressured. Abstraction fair, computation impaired, language function intact, attention span short. Mood and affect improved. No suicidal ideation at discharge. CONDITION AT DISCHARGE: Improved. FINAL DIAGNOSES: Bipolar 1 disorder, mixed with psychotic features; history of major depressive disorder with psychotic features, in partial remission; mild cognitive impairment. Rest unchanged from admission. DISCHARGE MEDICATIONS: Please refer to the MRAD. DISCHARGE INSTRUCTIONS: Outpatient psychiatric and medical followup at the [facility]. Time for discharge day management greater than 30 minutes. MAN Floresita STEVENS MD DR: PAYTON/caden JOB#: [id number] / [id number]
== END 2020-07-18 14:30 | DRG 885 ==
LOC: UNDOADMIN 04:32 → GEROPSY 04:32
PROVIDERS: ADMIT Psychiatry & Neurology Psychiatry; ATTEND Psychiatry & Neurology Psychiatry
DX: F31.64 Bipolar disorder, current episode mixed, severe, with psychotic features (principal); J96.01 Acute respiratory failure with hypoxia; K50.90 Crohn's disease, unspecified, without complications; Z20.822 Contact with and (suspected) exposure to COVID-19; Z66 Do not resuscitate; D64.9 Anemia, unspecified; F41.0 Panic disorder [episodic paroxysmal anxiety]; F63.9 Impulse disorder, unspecified; G31.84 Mild cognitive impairment of uncertain or unknown etiology; G40.909 Epilepsy, unspecified, not intractable, without status epilepticus; G89.29 Other chronic pain; J44.9 Chronic obstructive pulmonary disease, unspecified; K21.9 Gastro-esophageal reflux disease without esophagitis; M19.90 Unspecified osteoarthritis, unspecified site; M51.37 Other intervertebral disc degeneration, lumbosacral region; M79.7 Fibromyalgia; Z79.899 Other long term (current) drug therapy; Z99.81 Dependence on supplemental oxygen
CPT/HCPCS: 36415; 71101; 80053; 80061; 80164; 82306; 82607; 83036; 83540; 83550; 83735; 84436; 84443; 84480; 85025; 85379; 86592; U0003

== ENCOUNTER 2021-02-16 15:09 | Inpatient (IN) | payer MEDICARE, OTHER ==
[~2021-02-16] VITALS: Ht 152.4 cm; Wt 58.7 kg
[~2021-02-16 15:09] MED LIST changes: +CHOL500021 PO; +DICY20TA PO; -DICY20TA3 PO; +DIVA500T17 PO; -LEVO500T8 PO; +LEVO500T9 PO; +LIDO700A21 TP; +MAGN400T48 PO; -MAGN400T5 PO; +METH28OI2 TP; +MIRA25TA PO; -MIRA50TA PO; +POTA-121 PO; -POTA20TA4 PO
--- NOTE | 2021-02-16 15:30 | NUR ---
Admission Note with Justification for Admission to [facility] Patient admitted to [facility] for protective oversight for emergency stabilization of acute psychiatric crisis. Pt admitted from: SNF Mode of arrival: Secure Transport Accompanied By: Secure Transport Precipitating behaviors that initiated intake and admission: putting self on floor, combative towards staff, refusing O2, threw medications, expresses she wants to & removes O2 Description of failure of out patient attempts at stabilization in previous setting list behavior and medication trials: sent to ER on 02/03/21, telepsych 02/02/21 Behaviors and assessment findings upon admission: Pt is very pleasant and calm upon arrival. Pt is A&O x3. She believes she is here to "learn to walk again". Pt was educated that she would be seen by PT/OT while she is here, but is not the main reason for her hospital stay. She denies having any SI/HI and denies ever taking her oxygen off while at her facility. She denies having any pain/concerns. Will continue to monitor. Plan: Admit for protective oversight for adjustment and stabilization of medications, behaviors and mood. Intense treatment regimen including groups, medication adjustments, therapy, consistent regimen for ADL's, self care, and sleep hygiene. Daily monitoring by Inpatient staff, Psychiatry, and Medical Physician.
[2021-02-16] MEDS ORDERED: METHYL SALICYLATE/MENTHOL TOPICAL OINTMENT 57GM TUBE. TP PRN (15:45)
[2021-02-16] MEDS ORDERED: MAGNESIUM HYDROXIDE 2,400 MG/30 ML ORAL.SUSP. PO PRN (15:45)
[2021-02-16] MEDS ORDERED: ACETAMINOPHEN 325 MG TABLET PO PRN (15:45)
[2021-02-16] MEDS ORDERED: MAG HYDROX/AL HYDROX/SIMETH 30 ML ORAL.SUSP PO PRN ×2 (15:45→17:00)
[2021-02-16 16:12] LABS: BASO # 0.3 x10^3/uL (0.0-0.2); BASO % 3 % (0-3); EOS # 0.4 x10^3/uL (0.0-0.7); EOS % 6 % (0-3); HEMATOCRIT 34.2 % (36.0-47.0); HEMOGLOBIN 11.9 g/dL (12.0-15.5); LYMPH # 1.5 x10^3/uL (1.0-4.8); LYMPH % 20 % (24-48); MEAN CORPUSCULAR HEMOGLOBIN 35 pg (25-35); MEAN CORPUSCULAR HGB CONC 35 g/dL (31-37); MEAN CORPUSCULAR VOLUME 102 fL (79-100); MONO # 0.4 x10^3/uL (0.0-1.1); MONO % 6 % (0-9); NEUT # 4.8 x10^3uL (1.8-7.7); NEUT % 65 % (31-73); PLATELET COUNT 387 x10^3/uL (140-400); RED BLOOD COUNT 3.37 x10^6/uL (3.50-5.40); RED CELL DISTRIBUTION WIDTH 15.3 % (11.5-14.5); WHITE BLOOD COUNT 7.5 x10^3/uL (4.0-11.0)
[2021-02-16 16:25] LABS: ALBUMIN 2.6 g/dL (3.4-5.0); ALBUMIN/GLOBULIN RATIO 0.6 (1.0-1.7); ALK PHOS 88 U/L (46-116); ALT (SGPT) 19 U/L (14-59); ANION GAP 7 (6-14); AST (SGOT) 17 U/L (15-37); BLOOD UREA NITROGEN 3 mg/dL (7-20); BUN/CREATININE RATIO 5 (6-20); CALCIUM 8.7 mg/dL (8.5-10.1); CARBON DIOXIDE 31 mmol/L (21-32); CHLORIDE 100 mmol/L (98-107); CREATININE 0.6 mg/dL (0.6-1.0); GFR 99.1; GLUCOSE 144 mg/dL (70-99); MAGNESIUM 1.7 mg/dL (1.8-2.4); POTASSIUM 3.6 mmol/L (3.5-5.1); SODIUM 138 mmol/L (136-145); TOTAL BILIRUBIN 0.4 mg/dL (0.2-1.0); TOTAL PROTEIN 6.8 g/dL (6.4-8.2)
[2021-02-16 16:26] LABS: VAL ACID 60 mcg/mL (50-100)
[2021-02-16 16:30] VITALS: BP 106/70
[2021-02-16] MEDS ORDERED: NON FORMULARY ITEM (Methyl Salicylate/Menthol (Analgesic Balm) 1 APP) TP PRN (17:00)
[2021-02-16] MEDS ORDERED: NON FORMULARY ITEM (Magnesium Hydroxide (Milk Of Magnesia) 2,400 MG) PO PRN (17:00)
[2021-02-16] MEDS ORDERED: BISACODYL TAB 5 MG TABLET.DR. PO PRN (17:00)
[2021-02-16] MEDS ORDERED: NON FORMULARY ITEM (Albuterol Sulfate (Albuterol Sulfate Conc Neb Soln) 1 VIAL) NEB PRN (17:00)
[2021-02-16] MEDS ORDERED: ACETAMINOPHEN 500 MG TABLET PO PRN ×2 (17:00)
[2021-02-16] MEDS ORDERED: LACT460C PO (17:01)
[2021-02-16] MEDS ORDERED: ASCO500C9 PO (17:02)
[2021-02-16] MEDS ORDERED: ZINC100T PO (17:03)
[2021-02-16] MEDS: GABAPENTIN 300 MG CAPSULE. PO SCH ×2 (17:54→21:00)
[2021-02-16] MEDS ORDERED: ALBUTEROL SULFATE 2.5 MG/3 ML NEBU. NEB PRN (18:00)
--- NOTE | 2021-02-16 18:50 | NUR ---
This nurse was requested by IGLESIA to come into Gretel's room. Upon entering this nurse observed DUPLIGRAPH OPERATOR standing next to Gretel. DUPLIGRAPH OPERATOR states she walked by the [facility]'s room and observed a male patient standing by Gretel and stroking her arm. The Gretel looked visibly uncomfortable and stated she does not want to be alone in her room while the male is also on the hallway. The male was observed to be standing out in the hallway and wandering about. Gretel relocated down the hallway and directly in front of the nurse station for her personal comfort and at her request. Financial Officer, Dr Duffy notified. Financial Officer attempting to contact [employer] at the time of this writing.
[2021-02-16] MEDS ORDERED: IPRATRPIUM/ALBUTEROL 0.5/2.5MG 3 ML NEBU. NEB SCH (20:00)
[2021-02-16 20:23] LABS: BACTERIA,URINE FEW /HPF (0-FEW); BILIRUBIN,URINE NEG (NEG); CLARITY,URINE HAZY; COLOR,URINE YELLOW; GLUCOSE,URINE NEG (NEG); HYALINE CASTS, URINE FEW /HPF; NITRITE,URINE NEG (NEG); RBC,URINE 0 /HPF (0-2); SQUAMOUS EPITHELIAL CELL,UR MOD /LPF; UROBILINOGEN,URINE 0.2 mg/dL (0.2 mg/dL)
[2021-02-16] MEDS: NYSTATIN TOPICAL POWDER 15GM BOTTLE. TP SCH (21:00)
[2021-02-16] MEDS: DIVALPROEX ER 500 MG TAB.ER.24H PO SCH (21:00)
[2021-02-16] MEDS: DICYCLOMINE HCL 20 MG TABLET PO SCH (21:00)
[2021-02-16] MEDS: levETIRAcetam 250 MG TABLET PO SCH (21:00)
[2021-02-16] MEDS: clonazePAM 0.5 MG TABLET PO SCH (21:00)
[2021-02-16] MEDS: dilTIAZem HCL 30 MG TABLET PO SCH (21:00)
[2021-02-16] MEDS: DIPHENOXYLATE/ATROPINE TABLET. PO SCH (21:00)
[2021-02-16] MEDS: sulfaSALAzine 500 MG TABLET PO SCH (21:00)
[2021-02-16] MEDS: traZODone 50 MG TABLET. PO SCH (21:00)
[2021-02-16] MEDS: DULoxetine HCL 30 MG CAPSULE.DR PO SCH (21:00)
--- NOTE | 2021-02-16 22:06 | PDOC ---
Exam Note: Napoleon Note: Please also refer to the separate dictated note~for this date of service dictated separately.~Patient seen individually. Discussed the patient with Nursing staff reviewed the chart.~Reviewed interim history and current functioning. Reviewed vital signs,~Labs/ Radiology~and current medications noted below. Continue current treatment with the changes noted in the dictated addendum note Assessment: Vital Signs/I&O: Vital Signs Date Time Temp Pulse Resp B/P (MAP) Pulse Ox O2 Delivery O2 Flow Rate FiO2 02/16/21 21:00 95 106/70 02/16/21 16:30 97.2 18 93 Nasal Cannula 2.0 Labs: Laboratory Tests Test 02/16/21 16:00 02/16/21 19:35 White Blood Count 7.5 x10^3/uL (4.0-11.0) Red Blood Count 3.37 x10^6/uL (3.50-5.40) L Hemoglobin 11.9 g/dL (12.0-15.5) L Hematocrit 34.2 % (36.0-47.0) L Mean Corpuscular Volume 102 fL (79-100) H Mean Corpuscular Hemoglobin 35 pg (25-35) Mean Corpuscular Hemoglobin Concent 35 g/dL (31-37) Red Cell Distribution Width 15.3 % (11.5-14.5) H Platelet Count 387 x10^3/uL (140-400) Neutrophils (%) (Auto) 65 % (31-73) Lymphocytes (%) (Auto) 20 % (24-48) L Monocytes (%) (Auto) 6 % (0-9) Eosinophils (%) (Auto) 6 % (0-3) H Basophils (%) (Auto) 3 % (0-3) Neutrophils # (Auto) 4.8 x10^3uL (1.8-7.7) Lymphocytes # (Auto) 1.5 x10^3/uL (1.0-4.8) Monocytes # (Auto) 0.4 x10^3/uL (0.0-1.1) Eosinophils # (Auto) 0.4 x10^3/uL (0.0-0.7) Basophils # (Auto) 0.3 x10^3/uL (0.0-0.2) H D-Dimer (Jill) 1.27 mg/L (0.00-0.50) H Sodium Level 138 mmol/L (136-145) Potassium Level 3.6 mmol/L (3.5-5.1) Chloride Level 100 mmol/L (98-107) Carbon Dioxide Level 31 mmol/L (21-32) Anion Gap 7 (6-14) Blood Urea Nitrogen 3 mg/dL (7-20) L Creatinine 0.6 mg/dL (0.6-1.0) Estimated GFR (Cockcroft-Gault) 99.1 BUN/Creatinine Ratio 5 (6-20) L Glucose Level 144 mg/dL (70-99) H Calcium Level 8.7 mg/dL (8.5-10.1) Magnesium Level 1.7 mg/dL (1.8-2.4) L Total Bilirubin 0.4 mg/dL (0.2-1.0) Aspartate Amino Transferase (AST) 17 U/L (15-37) Alanine Aminotransferase (ALT) 19 U/L (14-59) Alkaline Phosphatase 88 U/L (46-116) Total Protein 6.8 g/dL (6.4-8.2) Albumin 2.6 g/dL (3.4-5.0) L Albumin/Globulin Ratio 0.6 (1.0-1.7) L Valproic Acid Level 60 mcg/mL (50-100) Valproic Acid Last Dose Date 02/15/21 Valproic Acid Last Dose Time 2100 Urine Collection Type Unknown Urine Color Yellow Urine Clarity Hazy Urine pH 6.0 Urine Specific [place] 1.020 Urine Protein Neg (NEG-TRACE) Urine Glucose (UA) Neg mg/dL (NEG) Urine Ketones (Stick) Neg mg/dL (NEG) Urine Blood Neg (NEG) Urine Nitrite Neg (NEG) Urine Bilirubin Neg (NEG) Urine Urobilinogen Dipstick 0.2 mg/dL (0.2 mg/dL) Urine Leukocyte Esterase Mod (NEG) Urine RBC 0 /HPF (0-2) Urine WBC 5-10 /HPF (0-4) Urine Squamous Epithelial Cells Mod /LPF Urine Bacteria Few /HPF (0-FEW) Urine Hyaline Casts Few /HPF Urine Mucus Slight /LPF Current Medications: Meds: Current Medications Medications (Trade) Dose Ordered Sig/Mya Route PRN Reason Start Time Stop Time Status Last Admin Dose Admin Clonazepam (KlonoPIN) 0.5 mg BID PO 02/16/21 21:00 02/16/21 21:00 Dicyclomine HCl (Bentyl) 20 mg TID PO 02/16/21 21:00 02/16/21 21:00 Diphenoxylate HCl/ Atropine (Lomotil) 2 tab BID PO 02/16/21 21:00 02/16/21 21:00 Divalproex Sodium (Depakote Er) 1,000 mg HS PO 02/16/21 21:00 02/16/21 21:00 Duloxetine HCl (Cymbalta) 30 mg BID PO 02/16/21 21:00 02/16/21 21:00 Gabapentin (Neurontin) 300 mg QID PO 02/16/21 17:00 02/16/21 21:00 Levetiracetam (Keppra) 250 mg BID PO 02/16/21 21:00 02/16/21 21:00 Nystatin (Nystop) 1 debra BID TP 02/16/21 21:00 02/16/21 21:00 Sulfasalazine (Azulfidine) 500 mg TID PO 02/16/21 21:00 02/16/21 21:00 Trazodone HCl (Desyrel) 50 mg QHS PO 02/16/21 21:00 02/16/21 21:00 Diltiazem HCl (Cardizem) 60 mg BID PO 02/16/21 21:00 02/16/21 21:00 I have reviewed the current psychotropics carefully including drug interactions. Risk benefit ratio favors no change other than as noted in my dictated progress note. Diagnosis: Problems: (1) Major depressive disorder with psychotic features (2) Anxiety disorder, unspecified (3) Impulse control disorder, unspecified (4) Mild cognitive impairment NITHIN STEVENS MD Feb 16, 2021 22:06
--- NOTE | 2021-02-16 22:09 | NUR ---
Nursing note Pt in room on the floor out of her chair. When questioned patient states that she sat down at a very short distance from her chair to the floor in an attempt to get to bed by herself. PASTEURIZER was in the hallway outside her room, pt didn't ask for help with transfer. Pt has a red elbert on her forehead, states she may have bumped her forehead on her chair leg. Pt state it was "Stupid of her to not ask for help". I instructed patient to ask for help when needed and to avoid doing things like trying to get up on her own. Pt states she is not in pain and has no injury. Inquired of the patient why she returned to us, she states "Well Dr. Duffy wrote me a letter, that we needed to get together and talk. We needed to work some things out, and he has known me since I was 21 years old." Told her typically, that it doesn't work that way, but she insists that this admission was requested of her in a gold plated hand delivered invitation from Dr. Duffy to her. Pt is grandiose and highly delusional, denies any behaviors that may have prompted this admission. Pt med compliant and cooperative. Dene Addendum: 02/16/21 at 2219 by YOHANA THOMAS RN Denies other complaints at this time. Takes meds whole in one swallow.
[2021-02-17 05:09] LABS: THYROXINE 9.8 ug/dL (4.5-12.0)
[2021-02-17 06:39] VITALS: BP 117/70
[2021-02-17 07:09] LABS: HEMOGLOBIN A1C 4.9 % (4.8-5.6)
[2021-02-17] MEDS: MIRABEGRON 25 MG TAB.ER.24H PO SCH (08:34)
[2021-02-17] MEDS: sulfaSALAzine 500 MG TABLET PO SCH ×3 (08:35→21:40)
[2021-02-17] MEDS: dilTIAZem HCL 30 MG TABLET PO SCH ×2 (08:35→21:41)
[2021-02-17] MEDS: levETIRAcetam 250 MG TABLET PO SCH ×2 (08:35→21:41)
[2021-02-17] MEDS: LACTOBACILLUS RHAMNOSUS GG 1 CAPSULE. PO SCH (08:35)
[2021-02-17] MEDS: LIPASE/PROTEAS/AMYLAS 10/32/42 CAPSULE.DR. PO SCH ×3 (08:35→17:02)
[2021-02-17] MEDS: FUROSEMIDE 20 MG TABLET PO SCH (08:35)
[2021-02-17] MEDS: PANTOPRAZOLE 40 MG TABLET. PO SCH (08:35)
[2021-02-17] MEDS: DIPHENOXYLATE/ATROPINE TABLET. PO SCH ×2 (08:36→21:40)
[2021-02-17] MEDS: MAGNESIUM OXIDE 400 MG TABLET PO SCH (08:36)
[2021-02-17] MEDS: GABAPENTIN 300 MG CAPSULE. PO SCH ×4 (08:36→21:41)
[2021-02-17] MEDS: ASCORBIC ACID 1,000 MG TABLET PO SCH (08:36)
[2021-02-17] MEDS: clonazePAM 0.5 MG TABLET PO SCH ×2 (08:36→21:40)
[2021-02-17] MEDS: DULoxetine HCL 30 MG CAPSULE.DR PO SCH ×2 (08:36→21:41)
[2021-02-17] MEDS: HYDROXYUREA 500 MG CAPSULE PO SCH (08:37)
[2021-02-17] MEDS: DICYCLOMINE HCL 20 MG TABLET PO SCH ×3 (08:38→21:41)
[2021-02-17] MEDS: FLUTICASONE 50MCG/NASAL SPRAY 16GM BOTTLE. NS SCH (08:39)
[2021-02-17] MEDS: POTASSIUM CHLORIDE 20 MEQ TABLET.ER. PO SCH (08:40)
[2021-02-17] MEDS: NYSTATIN TOPICAL POWDER 15GM BOTTLE. TP SCH ×2 (08:40→21:40)
[2021-02-17] MEDS ORDERED: ZINC GLUCONATE 50 MG PO SCH (09:00)
[2021-02-17] MEDS ORDERED: FLU VACC QUAD 21-22 (6MOS+) PF 0.5 ML SYRINGE. VAX IM ONE (09:00)
[2021-02-17] MEDS ORDERED: NON FORMULARY ITEM (Umeclidinium Bromide (Incruse Ellipta) 62.5 MCG) IH SCH (09:00)
[2021-02-17] MEDS ORDERED: LIDOCAINE (700MG/PATCH) PATCH. TP SCH (09:00)
--- NOTE | 2021-02-17 13:00 | NUR ---
ACTIVITY THERAPY ASSESSMENT completed based on notes, observation and interview. Pt was laying in her bed but willing to answer assessment questions. Pt was calm and compliant during entire interview session. Pt said that she was dizzy while looking up at the ceiling and continued to spin her finger in a mi'kmaq while she explained this to RENETTA NUNEZ. Pt stated that she was 89, per notes pt is 70. OPTOMETRY PROFESSOR then asked pt what activities she enjoys and she said volleyball, a good meal, exercise(20 minute chair workout), and pool. OPTOMETRY PROFESSOR then asked pt if she was and she said "well kind of" and then explained it as a common law marriage. Pt reports that she has two sons and said that she does not have good contact with them. Pt talked about her sons for awhile and mentioned that she was great grandma. OPTOMETRY PROFESSOR then asked pt if she reports any stress and she said no at this time. Pt said that to cope with stress she just takes her medication. Pt also said that she uses her wheelchair at all time to ambulate. Pt denied all SI and said that two people at her facility told her to get in the car and she ended up here. She said she did recall her previous stay and thought it was about 4 or 5 months ago. Per notes pt has been pleasant and compliant with medications. Pt was instructed to ask for help when transferring from her wheelchair to the bed. Initial goal aimed to increase socialization and engagement. Pt will participate in at least three individual or group Activity Therapy sessions per week. Addendum: 04/05/21 at 1350 by LAZARUS WADE ACT Goal changed 04/05:Pt will participate in at least three Activity Therapy sessions per week with moderate engagement Addendum: 04/13/21 at 1151 by LAZARUS WADE ACT goal changed 04/13:Pt will participate in at least five Activity Therapy sessions per week Addendum: 04/27/21 at 1211 by LAZARUS WADE ACT Goal changed 04/27:Pt will participate in all Activity Therapy sessions per week Addendum: 05/11/21 at 1219 by LAZARUS WADE ACT Goal changed 05/11:Pt will participate fully in all Activity Therapy sessions offered
--- NOTE | 2021-02-17 15:45 | NUR ---
Nsg Note; Brigitte has been awake and alert, up in her w/c. She prefers to be in the hallway if a staff member is present as another patient had touched her arm yesterday which frightened her. She has been hesitant to be around him today. She is able to transfer herself from w/c to toilet to chair with standby assist. She was able to walk 10 feet with walker per PT's report. She fed herself and took her meds whole
--- NOTE | 2021-02-17 15:55 | TX PLAN ---
Interdisciplinary Tx Plan Admission Information Feb 16, 2021 at 15:29 Legal Status (on Admission): Voluntary DPOA/Guardian Name: Patel Moise Contact Other Contact Name: Chasity Nazario Other Contact Verified Code Status: DNR Allergies: Coded Allergies: butorphanol (Verified Allergy, Unknown, 02/13/20) cefoxitin (Verified Allergy, Unknown, 02/13/20) codeine (Verified Allergy, Unknown, 02/13/20) gluten (Verified Allergy, Unknown, 02/13/20) lactose (Verified Allergy, Unknown, 02/13/20) Diagnoses Primary Diagnosis: Bipolar D/O mixed Reasons for Admission: Suicidal ideation, Poor impulse control Problem in Patient's Words: N/A Additional Admission Comments: According to the intake, pt is putting herself on the floor, combative towards staff, refusing oxygen/removes the tubing, throwing medications, expressed that she wants to . Problems Active Problems: putting self on floor removing oxygen Inactive Problems: medication compliant Pt Strengths/Limitations Ability for [place]: Poor Cognitive Functioning/Ability: Fair Communication Skills/Ability: Fair Financial Resources: Fair Insight/Judgement: Poor Intellectual Ability: Fair Physical Health: Poor Social Skills: Poor Stability in Family: Poor Stability in School/Work: Poor Verbal Skills: Fair Discharge Criteria Discharge Criteria: Able meet basic life need, Adequate arrangements @DC, Improved behavior, Improved mood/thought Preliminary Discharge Plan Preliminary DC Plan: Current Living Arrange. Special Precautions Fall Risk: Moderate Initial D/C Plan Pt will return to [facility] once stable Identified Discharge Needs: None noted Currently Utilized Resources Currently Utilized Resources/P: Primary Care Physician Telehealth for psychiatry Referrals Community Resources: None Identified Problems/Hx/Goals Objectives/Short-Term Goals Short Term Goals: Dec. Outbursts, Medication Stabilization, Monitor Med Effects, Promote Coping Skill Short Term Goals in Patient's: N/A Interventions/Frequency Staff Interventions/Frequency&: Psychiatrist to assess pt at least 3x per week for medication management. Social Work to assess pt least 2x per week to identify barriers to care and discharge planning goals. Nursing to assess pt medication effect, behavior modification and complete 15 minute checks daily. Encourage participation in group activities (if applicable) or 1:1 engagement based off Activity Dept goals. 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 Education: Pt graduated high school in 1969 Community Follow-up Primary Care Physician Telehealth Treatment Plan Explained Patient/Cardiovascular Rn had this treatment plan explained to him/her as indicated by the signature below and has been given the opportunity to ask questions and make suggestions: Date: Patient/Cardiovascular Rn Signature: Patient/Cardiovascular Rn Decline: OK Guzman Feb 17, 2021 15:55
--- NOTE | 2021-02-17 15:56 | NUR ---
PSYCHOSOCIAL ASSESSMENT ADMISSION DATE: 02/16/21 CONTACT INFORMATION: DPOA/Guardian Contact Name: Patel Moise Contact Address: [place] [address] Contact Phone #: ETHNIC ORIGIN: REASONS FOR ADMISSION: Poor impulse control Suicidal ideation ADDITIONAL ADMISSION COMMENTS: According to the intake, pt is putting herself on the floor, combative towards staff, refusing oxygen/removes the tubing, throwing medications, expressed that she wants to . REASON FOR ADMISSION IN PATIENT/FAMILY'S OWN WORDS: N/A PATIENT/FAMILY EXPECTATIONS FOR ADMISSION: Medication and Behavioral Mgmt LIVING SITUATION: Patient lives with: Other living arrangements: Pt lives alone Contact Name: [facility] Contact Address: [address] [place] [address]; [place] [address] Contact Phone #: Contact Fax #: FAMILY RELATIONS: Marital Status: Single # of Marriages: 3 # of Children: 2 [facility] Family Support: Cooperative Involved in DC Planning Additional Comments r/t Family: According to pt son, pt has been multiple times; his last attempt to count was #3. Pt does have two children Patel and Cuco. Pt son reports that his father in 1983 but "many men were after him". SIGNIFICANT PSYCHIATRIC/MEDICAL HISTORY: Psychiatric/Treatment History: This is pt 3rd admission to [facility]. Pt has a previous MDD, Anxiety, and Panic. Pt has multiple medical dx Pertinent Family History: Pt son reports that pt father had Alzheimers; however, ended up passing from pneumonia. Pt mother a lot of medical traumas and needed blood transfusions but unsure of psych concerns. Pt son Cuco suffers from depression and spent some time (at the age of 13) at [facility] for depression and SI attempt. HISTORICAL DATA: Childhood Environment: Other-see below Childhood Environment Additional Comments: Pt son is unsure much of pt childhood as pt did not talk to him about it. He is able to state that she has 3 half-siblings and 2 full brothers. Trauma History: None Is Trauma: Additional Comments: Pt son is unsure if pt has experienced any trauma. Drug Abuse History last 12 months: No Past Use Comment: Pt son reports "you guess it, she more than likely tried it". 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 service: N Amish background: N/A Sexual orientation: Heterosexual Educational Level: Pt graduated high school in 1969 Past/Present Interests/Hobbies: Unknown Financial support/resources: SS Disability Monthly income: N/A Person handling finances: Pt son is financial DPOA Do you have a history of legal problems: N Cultural considerations: NONE SOCIAL RELATIONSHIPS-CURRENT/PAST: Psychiatrist: [facility] [facility] PCP: Dr. Jatin Tom Counselor/Therapist: None Veterans' Administration: None Support Group: None Certified Home Health Aide/Boiler Coverer: None Other relationships: staff at [facility] STRENGTHS & WEAKNESSES: Patient's strengths: Good verbal skills Stable living arrange Other patient strengths: Patient's weaknesses: Poor family support Impulsive Other patient weaknesses: PRELIMINARY PLAN OF TREATMENT: Preliminary plan: Promote Coping Skill Medication Stabilization Monitor Med Effects Dec. Outbursts Other preliminary treatment comments: DISCHARGE PLANNING: Discharge planning/disposition: Current Living Arrange. Additional discharge needs identified: None noted ADDITIONAL INFORMATION: Other Pertinent Data: Information for PSA was taken from previous admission.
[2021-02-17 16:33] VITALS: BP 135/83
[2021-02-17 18:30] LABS: THYROID STIM HORMONE (TSH) 1.467 uIU/mL (0.358-3.740)
[2021-02-17] MEDS: DIVALPROEX ER 500 MG TAB.ER.24H PO SCH (21:40)
[2021-02-17] MEDS: traZODone 50 MG TABLET. PO SCH (21:41)
[2021-02-17] MEDS: IPRATROPIUM/ALBUTEROL 20/100mcg/INH INHALER. INH SCH (21:42)
--- NOTE | 2021-02-17 22:04 | PDOC ---
Exam Note: Napoleon Note: Please also refer to the separate dictated note~for this date of service dictated separately.~Patient seen individually. Discussed the patient with Nursing staff reviewed the chart.~Reviewed interim history and current functioning. Reviewed vital signs,~Labs/ Radiology~and current medications noted below. Continue current treatment with the changes noted in the dictated addendum note Assessment: Vital Signs/I&O: Vital Signs Date Time Temp Pulse Resp B/P (MAP) Pulse Ox O2 Delivery O2 Flow Rate FiO2 02/17/21 21:41 101 135/83 02/17/21 16:33 98.6 19 98 02/16/21 16:30 Nasal Cannula 2.0 I & O 02/16/21 02/16/21 02/17/21 15:00 23:00 07:00 Intake Total 120 ml Balance 120 ml Current Medications: Meds: Current Medications Medications (Trade) Dose Ordered Sig/Mya Route PRN Reason Start Time Stop Time Status Last Admin Dose Admin Acetaminophen (Tylenol) 650 mg PRN Q6HRS PRN PO MILD PAIN / TEMP > 100.3'F 02/16/21 15:45 Multi-Ingredient Ointment (Analgesic [place]) 1 debra PRN QID PRN TP MUSCLE PAIN 02/16/21 15:45 Al Hydroxide/Mg Hydroxide (Mylanta Plus Xs) 15 ml PRN AFTMEALHC PRN PO DYSPEPSIA 02/16/21 15:45 Magnesium Hydroxide (Milk Of Magnesia) 2,400 mg PRN QHS PRN PO CONSTIPATION 02/16/21 15:45 Acetaminophen (Tylenol) 1,000 mg Q6HRS PRN PO pain or fever 02/16/21 17:00 02/16/21 17:35 DC Acetaminophen (Tylenol) 500 mg Q4HRS PRN PO MILD PAIN 1-3 02/16/21 17:00 02/16/21 17:36 DC Bisacodyl (Dulcolax Tab) 5 mg PRN DAILY PRN PO CONSTIPATION 02/16/21 17:00 Vitamin D (Vitamin D3) 50,000 unit WEEKLY PO 02/22/21 09:00 Clonazepam (KlonoPIN) 0.5 mg BID PO 02/16/21 21:00 02/17/21 21:40 Dicyclomine HCl (Bentyl) 20 mg TID PO 02/16/21 21:00 02/17/21 21:41 Diphenoxylate HCl/ Atropine (Lomotil) 2 tab BID PO 02/16/21 21:00 02/17/21 21:40 Divalproex Sodium (Depakote Er) 1,000 mg HS PO 02/16/21 21:00 02/17/21 21:40 Duloxetine HCl (Cymbalta) 30 mg BID PO 02/16/21 21:00 02/17/21 21:41 Fluticasone Propionate (Flonase) 2 spray DAILY NS 02/17/21 09:00 02/17/21 08:39 Furosemide (Lasix) 20 mg DAILY PO 02/17/21 09:00 02/17/21 08:35 Gabapentin (Neurontin) 300 mg QID PO 02/16/21 17:00 02/17/21 21:41 Hydroxyurea (Hydrea) 1,000 mg DAILY PO 02/17/21 09:00 02/17/21 08:37 Levetiracetam (Keppra) 250 mg BID PO 02/16/21 21:00 02/17/21 21:41 Lidocaine (Lidoderm) 1 patch DAILY TP 02/17/21 09:00 02/17/21 09:24 DC Al Hydroxide/Mg Hydroxide (Mylanta Plus Xs) 15 ml PRN AFTMEALHC PRN PO DYSPEPSIA 02/16/21 17:00 02/16/21 17:36 DC Mirabegron (Myrbetriq) 50 mg DAILY PO 02/17/21 09:00 02/17/21 08:34 Nystatin (Nystop) 1 debra BID TP 02/16/21 21:00 02/17/21 21:40 Pantoprazole Sodium (Protonix) 40 mg DAILYAC PO 02/17/21 07:30 02/17/21 08:35 Potassium Chloride (Klor-Con) 40 meq DAILY PO 02/17/21 09:00 02/17/21 08:40 Sulfasalazine (Azulfidine) 500 mg TID PO 02/16/21 21:00 02/17/21 21:40 Trazodone HCl (Desyrel) 50 mg QHS PO 02/16/21 21:00 02/17/21 21:41 Non-Formulary Medication (Albuterol Sulfate (Albuterol Sulfate Conc Neb Soln)) 1 vial PRN Q4HRS PRN NEB SHORTNESS OF BREATH 02/16/21 17:00 02/16/21 17:49 DC Ascorbic Acid (Vitamin C) 1,000 mg DAILY PO 02/17/21 09:00 02/17/21 08:36 Diltiazem HCl (Cardizem) 60 mg BID PO 02/16/21 21:00 02/17/21 21:41 Lactobacillus Rhamnosus (Culturelle) 1 cap DAILY PO 02/17/21 09:00 02/17/21 08:35 Amylase/Lipase/ Protease (Zenpep 10,000) 1 cap TIDBFRMEAL PO 02/17/21 07:30 02/17/21 17:02 Non-Formulary Medication (Magnesium Hydroxide (Milk Of Magnesia)) 2,400 mg PRN DAILY PRN PO CONSTIPATION 02/16/21 17:00 02/16/21 17:37 DC Magnesium Oxide (Magnesium Oxide) 400 mg DAILY PO 02/17/21 09:00 02/17/21 08:36 Non-Formulary Medication (Methyl Salicylate/ Menthol (Analgesic [place])) 1 debra PRN Q6HRS PRN TP MUSCLE PAIN 02/16/21 17:00 02/16/21 17:37 DC Non-Formulary Medication (Umeclidinium [place] (Incruse Ellipta)) 62.5 mcg DAILY IH 02/17/21 09:00 02/16/21 17:49 DC Non-Formulary Medication (Zinc Gluconate ) 50 mg DAILY PO 02/17/21 09:00 02/16/21 17:46 DC Albuterol/ Ipratropium (Duoneb) 3 ml RTQID NEB 02/16/21 20:00 02/17/21 19:52 DC Albuterol Sulfate (Ventolin) 2.5 mg PRN Q4HRS PRN NEB SHORTNESS OF BREATH 02/16/21 18:00 Influenza Virus Vaccine Quadrival (Flulaval Quad [id number] Syringe) 0.5 ml ONCE ONCE VAX IM 02/17/21 09:00 02/17/21 09:01 DC 02/17/21 09:21 Lidocaine (Lidoderm) 1 patch DAILY PRN TP pain 02/17/21 09:30 Albuterol/ Ipratropium (Combivent Respimat 20-100 Mcg) 1 puff RTQID INH 02/17/21 20:00 02/17/21 21:42 Current Medications Medications (Trade) Dose Ordered Sig/Mya Route PRN Reason Start Time Stop Time Status Last Admin Dose Admin Fluticasone Propionate (Flonase) 2 spray DAILY NS 02/17/21 09:00 02/17/21 08:39 Furosemide (Lasix) 20 mg DAILY PO 02/17/21 09:00 02/17/21 08:35 Hydroxyurea (Hydrea) 1,000 mg DAILY PO 02/17/21 09:00 02/17/21 08:37 Mirabegron (Myrbetriq) 50 mg DAILY PO 02/17/21 09:00 02/17/21 08:34 Pantoprazole Sodium (Protonix) 40 mg DAILYAC PO 02/17/21 07:30 02/17/21 08:35 Potassium Chloride (Klor-Con) 40 meq DAILY PO 02/17/21 09:00 02/17/21 08:40 Ascorbic Acid (Vitamin C) 1,000 mg DAILY PO 02/17/21 09:00 02/17/21 08:36 Lactobacillus Rhamnosus (Culturelle) 1 cap DAILY PO 02/17/21 09:00 02/17/21 08:35 Amylase/Lipase/ Protease (Zenpep 10,000) 1 cap TIDBFRMEAL PO 02/17/21 07:30 02/17/21 17:02 Magnesium Oxide (Magnesium Oxide) 400 mg DAILY PO 02/17/21 09:00 02/17/21 08:36 Influenza Virus Vaccine Quadrival (Flulaval Quad [id number] Syringe) 0.5 ml ONCE ONCE VAX IM 02/17/21 09:00 02/17/21 09:01 DC 02/17/21 09:21 Albuterol/ Ipratropium (Combivent Respimat 20-100 Mcg) 1 puff RTQID INH 02/17/21 20:00 02/17/21 21:42 I have reviewed the current psychotropics carefully including drug interactions. Risk benefit ratio favors no change other than as noted in my dictated progress note. Diagnosis: Problems: (1) Impulse control disorder, unspecified (2) Mild cognitive impairment (3) Anxiety disorder, unspecified (4) Major depressive disorder with psychotic features (5) Bipolar disorder, curr episode mixed, severe, with psychotic features NITHIN STEVENS MD Feb 17, 2021 22:04
--- NOTE | 2021-02-18 04:26 | NUR ---
Per patient primary nurse, CORTNEY Hernandez, please see patients hard chart for shift progress note.
[2021-02-18 06:45] VITALS: BP 114/75
[2021-02-18] MEDS: IPRATROPIUM/ALBUTEROL 20/100mcg/INH INHALER. INH SCH ×4 (08:00→21:55)
[2021-02-18] MEDS: POTASSIUM CHLORIDE 20 MEQ TABLET.ER. PO SCH (08:53)
[2021-02-18] MEDS: LIPASE/PROTEAS/AMYLAS 10/32/42 CAPSULE.DR. PO SCH ×3 (08:54→16:30)
[2021-02-18] MEDS: DIPHENOXYLATE/ATROPINE TABLET. PO SCH ×2 (08:54→21:47)
[2021-02-18] MEDS: DULoxetine HCL 30 MG CAPSULE.DR PO SCH ×2 (08:55→21:45)
[2021-02-18] MEDS: LACTOBACILLUS RHAMNOSUS GG 1 CAPSULE. PO SCH (08:55)
[2021-02-18] MEDS: DICYCLOMINE HCL 20 MG TABLET PO SCH ×3 (08:55→21:45)
[2021-02-18] MEDS: GABAPENTIN 300 MG CAPSULE. PO SCH ×4 (08:55→21:44)
[2021-02-18] MEDS: sulfaSALAzine 500 MG TABLET PO SCH ×3 (08:55→21:55)
[2021-02-18] MEDS: MAGNESIUM OXIDE 400 MG TABLET PO SCH (08:55)
[2021-02-18] MEDS: HYDROXYUREA 500 MG CAPSULE PO SCH (08:55)
[2021-02-18] MEDS: levETIRAcetam 250 MG TABLET PO SCH ×2 (08:55→21:47)
[2021-02-18] MEDS: MIRABEGRON 25 MG TAB.ER.24H PO SCH (08:55)
[2021-02-18] MEDS: PANTOPRAZOLE 40 MG TABLET. PO SCH (08:56)
[2021-02-18] MEDS: dilTIAZem HCL 30 MG TABLET PO SCH ×2 (08:56→21:47)
[2021-02-18] MEDS: FUROSEMIDE 20 MG TABLET PO SCH (08:56)
[2021-02-18] MEDS: NYSTATIN TOPICAL POWDER 15GM BOTTLE. TP SCH ×2 (08:57→21:48)
[2021-02-18] MEDS: FLUTICASONE 50MCG/NASAL SPRAY 16GM BOTTLE. NS SCH (08:57)
[2021-02-18] MEDS: clonazePAM 0.5 MG TABLET PO SCH ×2 (08:59→21:46)
[2021-02-18] MEDS: ASCORBIC ACID 1,000 MG TABLET PO SCH (09:00)
--- NOTE | 2021-02-18 11:19 | RAD ---
EXAM: Head CT without contrast. HISTORY: Fall. TECHNIQUE: Computed tomographic images of the head were obtained without contrast. *One or more of the following individualized dose reduction techniques were utilized for this examina tion: 1. Automated exposure control. 2. Adjustment of the mA and/or kV according to patient size. 3. Use of iterative reconstruction technique. COMPARISON: None. FINDINGS: There is a small right frontal scalp soft tissue hematoma. There is no acute intracranial h emorrhage. There is no mass effect or midline shift. There is no hydrocephalus. There is ventricular enlargement due to cerebral atrophy. There is a suspected small chronic infarct within the medial right frontal lobe. There are areas of h ypodensity within the cerebral white matter, likely due to chronic small vessel disease. There is evidence of lens surgery. The paranasal sinuses mastoid air cells are unremarkable. There is no suspicious calvarial lesion. IMPRESSION: 1. Right frontal scalp soft tissue hematoma. There is no convincing acute intracranial finding. 2. Suspected small chronic infarct within the medial right frontal lobe. 3. Bilateral cerebral white matter changes, likely due to chronic small vessel disease. 4. Cerebral volume loss. This is greater than expected for patient age. Electronically signed by: Kerrie Irizarry MD (02/18/2021 11:17 AM) [id number]
--- NOTE | 2021-02-18 14:11 | NUR ---
Pt was being assisted to bed by staff. Pt let her self go limp was hanging on to her. Received skin tear x2 inner right forearm. Areas cleaned and foam dressing applied.
[2021-02-18 16:59] VITALS: BP 126/76
--- NOTE | 2021-02-18 17:04 | NUR ---
Pt continues to stand without assist and put self on floor. Received another small skin tear to L elbow. Personal alarm in place.
--- NOTE | 2021-02-18 17:49 | HP ---
ADMIT DATE: 02/16/2021 PSYCHIATRIC ADMISSION HISTORY/EVALUATION This late entry, date of service 02/16, covers elements not covered in my initial note 02/16. IDENTIFYING DATA: The patient is a 70-year-old female referred back to us from [facility] by her primary care physician on account of failure of outpatient psychiatric treatment for her bipolar disorder. The patient has been putting herself on the floor, combative towards staff, refusing oxygen, throwing her medications, expressing and verbalizing that she wanted to . She was removing her oxygen repeatedly. In January, she was transported to the Emergency Department due to removing her oxygen and the oxygen sats were dropping down to 66% on room air and refusing to let staff put it back on her. These behaviors have persisted. She has failed outpatient psychiatric interventions. Behavior is deemed dangerous, unmanageable at the facility and referred for inpatient psychiatric stabilization. CHIEF COMPLAINT: "I don't do all that, they just say I do." HISTORY OF PRESENT ILLNESS: The patient has a history of bipolar disorder with periods of elation, racing thoughts alternating with being depressed. More recently, she has appeared more depressed, hopeless, helpless, worthless, with suicidal ideation as noted above, but she minimizes all of this. She has been putting herself on the floor and expressing that she wants to . She has appeared more confused as well. PAST PSYCHIATRIC HISTORY: As above. She has been hospitalized here on a couple of occasions in the past and has a long history of outpatient psychiatric treatment. PAST MEDICAL HISTORY: Positive for Crohn's disease, irritable bowel syndrome, chronic diarrhea, mild cognitive impairment, COPD, GERD, fibromyalgia, seizure disorder. CODE STATUS: DNR. ALLERGIES: BUTORPHANOL, CEFOXITIN, CODEINE, GLUTEN, LACTOSE. UA: Reflex to culture. ACCU-CHEKS: None. DIET: Gluten and lactose-free. Takes medications whole. CURRENT PSYCHOTROPICS: Klonopin 0.5 mg b.i.d. p.r.n., Depakote extended release 1000 mg at bedtime, Cymbalta 30 mg b.i.d., gabapentin 300 mg 4 times a day, Keppra 250 mg b.i.d., trazodone 50 mg at bedtime. FAMILY HISTORY: Noncontributory. SOCIAL HISTORY: No alcohol, drug abuse, physical, sexual or elder abuse history is noted. She is not known to be a perpetrator. REACTION TO HOSPITALIZATION: The patient accepting of it. I met with the patient on the evening of 02/16 for this evaluation. REVIEW OF SYSTEMS: Ambulation impaired, in wheelchair. No CV, , pulmonary, eye, ENT system symptoms on review. Reliability varies. MENTAL STATUS EXAM: The patient is oriented to herself, situation. Speech has some latency, coherent. Abstraction fair. Computation impaired. Language function intact. Attention span short. Mood and affect withdrawn. She appears somewhat paranoid. Minimizes, denies most of symptoms prompting admission. No active suicidal ideation. Somewhat distractible. IMPRESSION: Bipolar 1 disorder, mixed verus depressed with psychotic features; anxiety disorder, unspecified; impulse control disorder, unspecified; mild cognitive impairment. Rest as above. Rule out urinary tract infection. PLAN: Admit to Geropsychiatry Unit, [facility]. I will see the patient daily individually from a psychiatric standpoint, medical followup, Dr. Clark/Dr. Cheng. Continue current psychotropics. Check a valproic acid level. Observe baseline, then adjust as clinically indicated. ESTIMATED LENGTH OF STAY: 10-12 days. DISPOSITION PLAN: Back to shelter when stable. VARINDER DR: Hank TID: [id number]
[2021-02-18] MEDS: traZODone 50 MG TABLET. PO SCH (21:45)
[2021-02-18] MEDS: DIVALPROEX ER 500 MG TAB.ER.24H PO SCH (21:48)
--- NOTE | 2021-02-18 22:05 | PDOC ---
Exam Note: Napoleon Note: Please also refer to the separate dictated note~for this date of service dictated separately.~Patient seen individually. Discussed the patient with Nursing staff reviewed the chart.~Reviewed interim history and current functioning. Reviewed vital signs,~Labs/ Radiology~and current medications noted below. Continue current treatment with the changes noted in the dictated addendum note Assessment: Vital Signs/I&O: Vital Signs Date Time Temp Pulse Resp B/P (MAP) Pulse Ox O2 Delivery O2 Flow Rate FiO2 02/18/21 21:47 82 126/76 02/18/21 16:59 96.3 20 94 2.0 02/16/21 16:30 Nasal Cannula I & O 0 02/17/21 02/17/21 02/18/21 15:00 23:00 07:00 Intake Total 1080 ml 320 ml 120 ml Balance 1080 ml 320 ml 120 ml Current Medications: Meds: Current Medications Medications (Trade) Dose Ordered Sig/Mya Route PRN Reason Start Time Stop Time Status Last Admin Dose Admin Acetaminophen (Tylenol) 650 mg PRN Q6HRS PRN PO MILD PAIN / TEMP > 100.3'F 02/16/21 15:45 02/18/21 06:31 Multi-Ingredient Ointment (Analgesic [place]) 1 debra PRN QID PRN TP MUSCLE PAIN 02/16/21 15:45 Al Hydroxide/Mg Hydroxide (Mylanta Plus Xs) 15 ml PRN AFTMEALHC PRN PO DYSPEPSIA 02/16/21 15:45 Magnesium Hydroxide (Milk Of Magnesia) 2,400 mg PRN QHS PRN PO CONSTIPATION 02/16/21 15:45 Acetaminophen (Tylenol) 1,000 mg Q6HRS PRN PO pain or fever 02/16/21 17:00 02/16/21 17:35 DC Acetaminophen (Tylenol) 500 mg Q4HRS PRN PO MILD PAIN 1-3 02/16/21 17:00 02/16/21 17:36 DC Bisacodyl (Dulcolax Tab) 5 mg PRN DAILY PRN PO CONSTIPATION 02/16/21 17:00 Vitamin D (Vitamin D3) 50,000 unit WEEKLY PO 02/22/21 09:00 Clonazepam (KlonoPIN) 0.5 mg BID PO 02/16/21 21:00 02/18/21 21:46 Dicyclomine HCl (Bentyl) 20 mg TID PO 02/16/21 21:00 02/18/21 21:45 Diphenoxylate HCl/ Atropine (Lomotil) 2 tab BID PO 02/16/21 21:00 02/18/21 21:47 Divalproex Sodium (Depakote Er) 1,000 mg HS PO 02/16/21 21:00 02/18/21 21:48 Duloxetine HCl (Cymbalta) 30 mg BID PO 02/16/21 21:00 02/18/21 21:45 Fluticasone Propionate (Flonase) 2 spray DAILY NS 02/17/21 09:00 02/18/21 08:57 Furosemide (Lasix) 20 mg DAILY PO 02/17/21 09:00 02/18/21 08:56 Gabapentin (Neurontin) 300 mg QID PO 02/16/21 17:00 02/18/21 21:44 Hydroxyurea (Hydrea) 1,000 mg DAILY PO 02/17/21 09:00 02/18/21 08:55 Levetiracetam (Keppra) 250 mg BID PO 02/16/21 21:00 02/18/21 21:47 Lidocaine (Lidoderm) 1 patch DAILY TP 02/17/21 09:00 02/17/21 09:24 DC Al Hydroxide/Mg Hydroxide (Mylanta Plus Xs) 15 ml PRN AFTMEALHC PRN PO DYSPEPSIA 02/16/21 17:00 02/16/21 17:36 DC Mirabegron (Myrbetriq) 50 mg DAILY PO 02/17/21 09:00 02/18/21 08:55 Nystatin (Nystop) 1 debra BID TP 02/16/21 21:00 02/18/21 21:48 Pantoprazole Sodium (Protonix) 40 mg DAILYAC PO 02/17/21 07:30 02/18/21 08:56 Potassium Chloride (Klor-Con) 40 meq DAILY PO 02/17/21 09:00 02/18/21 08:53 Sulfasalazine (Azulfidine) 500 mg TID PO 02/16/21 21:00 02/18/21 21:55 Trazodone HCl (Desyrel) 50 mg QHS PO 02/16/21 21:00 02/18/21 21:45 Non-Formulary Medication (Albuterol Sulfate (Albuterol Sulfate Conc Neb Soln)) 1 vial PRN Q4HRS PRN NEB SHORTNESS OF BREATH 02/16/21 17:00 02/16/21 17:49 DC Ascorbic Acid (Vitamin C) 1,000 mg DAILY PO 02/17/21 09:00 02/17/21 08:36 Diltiazem HCl (Cardizem) 60 mg BID PO 02/16/21 21:00 02/18/21 21:47 Lactobacillus Rhamnosus (Culturelle) 1 cap DAILY PO 02/17/21 09:00 02/18/21 08:55 Amylase/Lipase/ Protease (Zenpep 10,000) 1 cap TIDBFRMEAL PO 02/17/21 07:30 02/18/21 16:30 Non-Formulary Medication (Magnesium Hydroxide (Milk Of Magnesia)) 2,400 mg PRN DAILY PRN PO CONSTIPATION 02/16/21 17:00 02/16/21 17:37 DC Magnesium Oxide (Magnesium Oxide) 400 mg DAILY PO 02/17/21 09:00 02/18/21 08:55 Non-Formulary Medication (Methyl Salicylate/ Menthol (Analgesic Hydes)) 1 debra PRN Q6HRS PRN TP MUSCLE PAIN 02/16/21 17:00 02/16/21 17:37 DC Non-Formulary Medication (Umeclidinium [place] (Incruse Ellipta)) 62.5 mcg DAILY IH 02/17/21 09:00 02/16/21 17:49 DC Non-Formulary Medication (Zinc Gluconate ) 50 mg DAILY PO 02/17/21 09:00 02/16/21 17:46 DC Albuterol/ Ipratropium (Duoneb) 3 ml RTQID NEB 02/16/21 20:00 02/17/21 19:52 DC Albuterol Sulfate (Ventolin) 2.5 mg PRN Q4HRS PRN NEB SHORTNESS OF BREATH 02/16/21 18:00 Influenza Virus Vaccine Quadrival (Flulaval Quad [id number] Syringe) 0.5 ml ONCE ONCE VAX IM 02/17/21 09:00 02/17/21 09:01 DC 02/17/21 09:21 Lidocaine (Lidoderm) 1 patch DAILY PRN TP pain 02/17/21 09:30 Albuterol/ Ipratropium (Combivent Respimat 20-100 Mcg) 1 puff RTQID INH 02/17/21 20:00 02/18/21 21:55 I have reviewed the current psychotropics carefully including drug interactions. Risk benefit ratio favors no change other than as noted in my dictated progress note. Diagnosis: Problems: (1) Impulse control disorder, unspecified (2) Mild cognitive impairment (3) Anxiety disorder, unspecified (4) Bipolar 1 disorder, depressed (5) Bipolar affective, depress, sev w/ psych NITHIN STEVENS MD Feb 18, 2021 22:05
--- NOTE | 2021-02-19 00:26 | NUR ---
Patient was in bed when nurse entered the room with HS medications. Patient compliant with medications, cooperative and appropriate. Patient wearing 2L oxygen via NC. Patient bed alarm on for safety as patient has history of putting herself on the floor.
[2021-02-19 06:50] VITALS: BP 96/62
[2021-02-19] MEDS: MIRABEGRON 25 MG TAB.ER.24H PO SCH (08:21)
[2021-02-19] MEDS: ASCORBIC ACID 1,000 MG TABLET PO SCH (08:22)
[2021-02-19] MEDS: levETIRAcetam 250 MG TABLET PO SCH ×2 (08:22→20:55)
[2021-02-19] MEDS: POTASSIUM CHLORIDE 20 MEQ TABLET.ER. PO SCH (08:22)
[2021-02-19] MEDS: DULoxetine HCL 30 MG CAPSULE.DR PO SCH ×2 (08:22→20:53)
[2021-02-19] MEDS: MAGNESIUM OXIDE 400 MG TABLET PO SCH (08:22)
[2021-02-19] MEDS: FUROSEMIDE 20 MG TABLET PO SCH (08:22)
[2021-02-19] MEDS: sulfaSALAzine 500 MG TABLET PO SCH ×3 (08:22→20:53)
[2021-02-19] MEDS: DIPHENOXYLATE/ATROPINE TABLET. PO SCH ×2 (08:22→20:56)
[2021-02-19] MEDS: LACTOBACILLUS RHAMNOSUS GG 1 CAPSULE. PO SCH (08:22)
[2021-02-19] MEDS: PANTOPRAZOLE 40 MG TABLET. PO SCH (08:26)
[2021-02-19] MEDS: LIPASE/PROTEAS/AMYLAS 10/32/42 CAPSULE.DR. PO SCH ×3 (08:26→17:25)
[2021-02-19] MEDS: HYDROXYUREA 500 MG CAPSULE PO SCH (08:26)
[2021-02-19] MEDS: DICYCLOMINE HCL 20 MG TABLET PO SCH ×3 (08:27→20:55)
[2021-02-19] MEDS: FLUTICASONE 50MCG/NASAL SPRAY 16GM BOTTLE. NS SCH (08:28)
[2021-02-19] MEDS: IPRATROPIUM/ALBUTEROL 20/100mcg/INH INHALER. INH SCH ×4 (08:28→20:56)
[2021-02-19] MEDS: GABAPENTIN 300 MG CAPSULE. PO SCH ×4 (08:32→20:55)
[2021-02-19] MEDS: NYSTATIN TOPICAL POWDER 15GM BOTTLE. TP SCH ×2 (08:34→20:53)
[2021-02-19] MEDS: clonazePAM 0.5 MG TABLET PO SCH ×2 (09:00→20:53)
[2021-02-19] MEDS: dilTIAZem HCL 30 MG TABLET PO SCH ×2 (09:00→20:54)
--- NOTE | 2021-02-19 09:24 | PDOC ---
Exam Note: Napoleon Note: This note is a late entry for 02/17/2021 covers elements not covered in my initial note. Subjective: The patient was reviewed at treatment team meeting individually in the morning on 02/17/2021 with Rosalva Hutton, Lety Farley, and Archana (perinatal social worker), Bessy, activity therapy and Federica BARR, discussed and reviewed the chart. Reviewed the patients history prompt admission, diagnoses, overall functioning on the unit, current psychotropics and risk-benefit ratio, treatment options. The patient slept 8-1/4 hours previous night. She had been pulling off her oxygen supplements and oxygen sats were dropping into the 60s. She was refusing oxygen, voiced suicidal ideation, denies and minimizes all of this and confronted. Family has been involved with her. She has had problems with another male patient and has been on wheelchair since November 24. Her EKG yesterday was unremarkable. Review of Systems: Ambulation impaired in wheelchair. No CV, , pulmonary, eye system symptoms on review. Mental Status Exam: The patient is oriented to herself and situation. She is calm, withdrawn, pleasant. I met with her in the evening around 8 p.m. 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 Speech moderate latency, often response is monosyllabic. Abstraction fair. Computation impaired. Language function intact. Mood and affect withdrawn. Denies suicidal ideation. Laboratory Data: Reviewed. Impression: Bipolar 1 disorder, mixed versus depressed with psychotic features. Anxiety disorder unspecified. Impulse control disorder unspecified. Mild cognitive impairment. Plan: Continue current psychotropics. Valproic acid level is therapeutic at 60. Observe baseline. Adjust further as clinically indicated. Assessment: Vital Signs/I&O: Vital Signs Date Time Temp Pulse Resp B/P (MAP) Pulse Ox O2 Delivery O2 Flow Rate FiO2 02/19/21 09:00 98 107/72 02/19/21 06:50 98.1 16 91 2.0 02/16/21 16:30 Nasal Cannula I & O 02/18/21 02/18/21 02/19/21 15:00 23:00 07:00 Intake Total 1080 ml 120 ml Balance 1080 ml 120 ml Current Medications: Meds: Current Medications Medications (Trade) Dose Ordered Sig/Mya Route PRN Reason Start Time Stop Time Status Last Admin Dose Admin Acetaminophen (Tylenol) 650 mg PRN Q6HRS PRN PO MILD PAIN / TEMP > 100.3'F 02/16/21 15:45 02/18/21 06:31 Multi-Ingredient Ointment (Analgesic [place]) 1 debra PRN QID PRN TP MUSCLE PAIN 02/16/21 15:45 Al Hydroxide/Mg Hydroxide (Mylanta Plus Xs) 15 ml PRN AFTMEALHC PRN PO DYSPEPSIA 02/16/21 15:45 Magnesium Hydroxide (Milk Of Magnesia) 2,400 mg PRN QHS PRN PO CONSTIPATION 02/16/21 15:45 Acetaminophen (Tylenol) 1,000 mg Q6HRS PRN PO pain or fever 02/16/21 17:00 02/16/21 17:35 DC Acetaminophen (Tylenol) 500 mg Q4HRS PRN PO MILD PAIN 1-3 02/16/21 17:00 02/16/21 17:36 DC Bisacodyl (Dulcolax Tab) 5 mg PRN DAILY PRN PO CONSTIPATION 02/16/21 17:00 Vitamin D (Vitamin D3) 50,000 unit WEEKLY PO 02/22/21 09:00 Clonazepam (KlonoPIN) 0.5 mg BID PO 02/16/21 21:00 02/19/21 09:00 Dicyclomine HCl (Bentyl) 20 mg TID PO 02/16/21 21:00 02/19/21 08:27 Diphenoxylate HCl/ Atropine (Lomotil) 2 tab BID PO 02/16/21 21:00 02/19/21 08:22 Divalproex Sodium (Depakote Er) 1,000 mg HS PO 02/16/21 21:00 02/18/21 21:48 Duloxetine HCl (Cymbalta) 30 mg BID PO 02/16/21 21:00 02/19/21 08:22 Fluticasone Propionate (Flonase) 2 spray DAILY NS 02/17/21 09:00 02/19/21 08:28 Furosemide (Lasix) 20 mg DAILY PO 02/17/21 09:00 02/19/21 08:22 Gabapentin (Neurontin) 300 mg QID PO 02/16/21 17:00 02/19/21 08:32 Hydroxyurea (Hydrea) 1,000 mg DAILY PO 02/17/21 09:00 02/19/21 08:26 Levetiracetam (Keppra) 250 mg BID PO 02/16/21 21:00 02/19/21 08:22 Lidocaine (Lidoderm) 1 patch DAILY TP 02/17/21 09:00 02/17/21 09:24 DC Al Hydroxide/Mg Hydroxide (Mylanta Plus Xs) 15 ml PRN AFTMEALHC PRN PO DYSPEPSIA 02/16/21 17:00 02/16/21 17:36 DC Mirabegron (Myrbetriq) 50 mg DAILY PO 02/17/21 09:00 02/19/21 08:21 Nystatin (Nystop) 1 debra BID TP 02/16/21 21:00 02/19/21 08:34 Pantoprazole Sodium (Protonix) 40 mg DAILYAC PO 02/17/21 07:30 02/19/21 08:26 Potassium Chloride (Klor-Con) 40 meq DAILY PO 02/17/21 09:00 02/19/21 08:22 Sulfasalazine (Azulfidine) 500 mg TID PO 02/16/21 21:00 02/19/21 08:22 Trazodone HCl (Desyrel) 50 mg QHS PO 02/16/21 21:00 02/18/21 21:45 Non-Formulary Medication (Albuterol Sulfate (Albuterol Sulfate Conc Neb Soln)) 1 vial PRN Q4HRS PRN NEB SHORTNESS OF BREATH 02/16/21 17:00 02/16/21 17:49 DC Ascorbic Acid (Vitamin C) 1,000 mg DAILY PO 02/17/21 09:00 02/19/21 08:22 Diltiazem HCl (Cardizem) 60 mg BID PO 02/16/21 21:00 02/19/21 09:00 Lactobacillus Rhamnosus (Culturelle) 1 cap DAILY PO 02/17/21 09:00 02/19/21 08:22 Amylase/Lipase/ Protease (Zenpep 10,000) 1 cap TIDBFRMEAL PO 02/17/21 07:30 02/19/21 08:26 Non-Formulary Medication (Magnesium Hydroxide (Milk Of Magnesia)) 2,400 mg PRN DAILY PRN PO CONSTIPATION 02/16/21 17:00 02/16/21 17:37 DC Magnesium Oxide (Magnesium Oxide) 400 mg DAILY PO 02/17/21 09:00 02/19/21 08:22 Non-Formulary Medication (Methyl Salicylate/ Menthol (Analgesic [place])) 1 debra PRN Q6HRS PRN TP MUSCLE PAIN 02/16/21 17:00 02/16/21 17:37 DC Non-Formulary Medication (Umeclidinium [place] (Incruse Ellipta)) 62.5 mcg DAILY IH 02/17/21 09:00 02/16/21 17:49 DC Non-Formulary Medication (Zinc Gluconate ) 50 mg DAILY PO 02/17/21 09:00 02/16/21 17:46 DC Albuterol/ Ipratropium (Duoneb) 3 ml RTQID NEB 02/16/21 20:00 02/17/21 19:52 DC Albuterol Sulfate (Ventolin) 2.5 mg PRN Q4HRS PRN NEB SHORTNESS OF BREATH 02/16/21 18:00 Influenza Virus Vaccine Quadrival (Flulaval Quad Syringe) 0.5 ml ONCE ONCE VAX IM 02/17/21 09:00 02/17/21 09:01 DC 02/17/21 09:21 Lidocaine (Lidoderm) 1 patch DAILY PRN TP pain 02/17/21 09:30 Albuterol/ Ipratropium (Combivent Respimat 20-100 Mcg) 1 puff RTQID INH 02/17/21 20:00 02/19/21 08:28 I have reviewed the current psychotropics carefully including drug interactions. Risk benefit ratio favors no change other than as noted in my dictated progress note. Diagnosis: Problems: (1) Bipolar affective, depress, sev w/ psych (2) Mild cognitive impairment (3) Impulse control disorder, unspecified (4) Anxiety disorder, unspecified (5) Bipolar 1 disorder, depressed NITHIN STEVENS MD Feb 19, 2021 09:24
--- NOTE | 2021-02-19 14:06 | NUR ---
Nsg Note; Brigitte enjoys the attention of staff to help with cares and is resistant to encouragement to perform self care. She asks for different things frequently. Staff have been sitting close to prevent her from putting herself on the floor. Brigitte feeds herself and takes her meds whole without resistance.
--- NOTE | 2021-02-19 17:14 | NUR ---
Nsg Note; Bilat elbow skin tears pt received bilat skin tears yesterday. Dressings removed; wounds measured and photographed; cleaned with NS; drsg applied of petroleum gauze and foam dressing. Wound Care consult ordered
[2021-02-19] MEDS: DIVALPROEX ER 500 MG TAB.ER.24H PO SCH (20:54)
[2021-02-19] MEDS: traZODone 50 MG TABLET. PO SCH (20:55)
--- NOTE | 2021-02-19 22:10 | PDOC ---
Exam Note: Napoleon Note: Please also refer to the separate dictated note~for this date of service dictated separately.~Patient seen individually. Discussed the patient with Nursing staff reviewed the chart.~Reviewed interim history and current functioning. Reviewed vital signs,~Labs/ Radiology~and current medications noted below. Continue current treatment with the changes noted in the dictated addendum note Assessment: Vital Signs/I&O: Vital Signs Date Time Temp Pulse Resp B/P (MAP) Pulse Ox O2 Delivery O2 Flow Rate FiO2 02/19/21 20:54 98 107/72 02/19/21 06:50 98.1 16 91 2.0 02/16/21 16:30 Nasal Cannula I & O 02/18/21 02/18/21 02/19/21 15:00 23:00 07:00 Intake Total 1080 ml 120 ml Balance 1080 ml 120 ml Current Medications: Meds: Current Medications Medications (Trade) Dose Ordered Sig/Mya Route PRN Reason Start Time Stop Time Status Last Admin Dose Admin Acetaminophen (Tylenol) 650 mg PRN Q6HRS PRN PO MILD PAIN / TEMP > 100.3'F 02/16/21 15:45 02/18/21 06:31 Multi-Ingredient Ointment (Analgesic [place]) 1 debra PRN QID PRN TP MUSCLE PAIN 02/16/21 15:45 Al Hydroxide/Mg Hydroxide (Mylanta Plus Xs) 15 ml PRN AFTMEALHC PRN PO DYSPEPSIA 02/16/21 15:45 Magnesium Hydroxide (Milk Of Magnesia) 2,400 mg PRN QHS PRN PO CONSTIPATION 02/16/21 15:45 Acetaminophen (Tylenol) 1,000 mg Q6HRS PRN PO pain or fever 02/16/21 17:00 02/16/21 17:35 DC Acetaminophen (Tylenol) 500 mg Q4HRS PRN PO MILD PAIN 1-3 02/16/21 17:00 02/16/21 17:36 DC Bisacodyl (Dulcolax Tab) 5 mg PRN DAILY PRN PO CONSTIPATION 02/16/21 17:00 Vitamin D (Vitamin D3) 50,000 unit WEEKLY PO 02/22/21 09:00 Clonazepam (KlonoPIN) 0.5 mg BID PO 02/16/21 21:00 02/19/21 20:53 Dicyclomine HCl (Bentyl) 20 mg TID PO 02/16/21 21:00 02/19/21 20:55 Diphenoxylate HCl/ Atropine (Lomotil) 2 tab BID PO 02/16/21 21:00 02/19/21 20:56 Divalproex Sodium (Depakote Er) 1,000 mg HS PO 02/16/21 21:00 02/19/21 20:54 Duloxetine HCl (Cymbalta) 30 mg BID PO 02/16/21 21:00 02/19/21 20:53 Fluticasone Propionate (Flonase) 2 spray DAILY NS 02/17/21 09:00 02/19/21 08:28 Furosemide (Lasix) 20 mg DAILY PO 02/17/21 09:00 02/19/21 08:22 Gabapentin (Neurontin) 300 mg QID PO 02/16/21 17:00 02/19/21 20:55 Hydroxyurea (Hydrea) 1,000 mg DAILY PO 02/17/21 09:00 02/19/21 08:26 Levetiracetam (Keppra) 250 mg BID PO 02/16/21 21:00 02/19/21 20:55 Lidocaine (Lidoderm) 1 patch DAILY TP 02/17/21 09:00 02/17/21 09:24 DC Al Hydroxide/Mg Hydroxide (Mylanta Plus Xs) 15 ml PRN AFTMEALHC PRN PO DYSPEPSIA 02/16/21 17:00 02/16/21 17:36 DC Mirabegron (Myrbetriq) 50 mg DAILY PO 02/17/21 09:00 02/19/21 08:21 Nystatin (Nystop) 1 debra BID TP 02/16/21 21:00 02/19/21 20:53 Pantoprazole Sodium (Protonix) 40 mg DAILYAC PO 02/17/21 07:30 02/19/21 08:26 Potassium Chloride (Klor-Con) 40 meq DAILY PO 02/17/21 09:00 02/19/21 08:22 Sulfasalazine (Azulfidine) 500 mg TID PO 02/16/21 21:00 02/19/21 20:53 Trazodone HCl (Desyrel) 50 mg QHS PO 02/16/21 21:00 02/19/21 20:55 Non-Formulary Medication (Albuterol Sulfate (Albuterol Sulfate Conc Neb Soln)) 1 vial PRN Q4HRS PRN NEB SHORTNESS OF BREATH 02/16/21 17:00 02/16/21 17:49 DC Ascorbic Acid (Vitamin C) 1,000 mg DAILY PO 02/17/21 09:00 02/19/21 08:22 Diltiazem HCl (Cardizem) 60 mg BID PO 02/16/21 21:00 02/19/21 20:54 Lactobacillus Rhamnosus (Culturelle) 1 cap DAILY PO 02/17/21 09:00 02/19/21 08:22 Amylase/Lipase/ Protease (Zenpep 10,000) 1 cap TIDBFRMEAL PO 02/17/21 07:30 02/19/21 17:25 Non-Formulary Medication (Magnesium Hydroxide (Milk Of Magnesia)) 2,400 mg PRN DAILY PRN PO CONSTIPATION 02/16/21 17:00 02/16/21 17:37 DC Magnesium Oxide (Magnesium Oxide) 400 mg DAILY PO 02/17/21 09:00 02/19/21 08:22 Non-Formulary Medication (Methyl Salicylate/ Menthol (Analgesic [place])) 1 debra PRN Q6HRS PRN TP MUSCLE PAIN 02/16/21 17:00 02/16/21 17:37 DC Non-Formulary Medication (Umeclidinium [place] (Incruse Ellipta)) 62.5 mcg DAILY IH 02/17/21 09:00 02/16/21 17:49 DC Non-Formulary Medication (Zinc Gluconate ) 50 mg DAILY PO 02/17/21 09:00 02/16/21 17:46 DC Albuterol/ Ipratropium (Duoneb) 3 ml RTQID NEB 02/16/21 20:00 02/17/21 19:52 DC Albuterol Sulfate (Ventolin) 2.5 mg PRN Q4HRS PRN NEB SHORTNESS OF BREATH 02/16/21 18:00 Influenza Virus Vaccine Quadrival (Flulaval Quad [id number] Syringe) 0.5 ml ONCE ONCE VAX IM 02/17/21 09:00 02/17/21 09:01 DC 02/17/21 09:21 Lidocaine (Lidoderm) 1 patch DAILY PRN TP pain 02/17/21 09:30 Albuterol/ Ipratropium (Combivent Respimat 20-100 Mcg) 1 puff RTQID INH 02/17/21 20:00 02/19/21 20:56 I have reviewed the current psychotropics carefully including drug interactions. Risk benefit ratio favors no change other than as noted in my dictated progress note. Diagnosis: Problems: (1) Bipolar affective, depress, sev w/ psych (2) Bipolar 1 disorder, depressed (3) Mild cognitive impairment (4) Impulse control disorder, unspecified (5) Anxiety disorder, unspecified NITHIN STEVENS MD Feb 19, 2021 22:10
--- NOTE | 2021-02-20 00:59 | NUR ---
Pt has been in her bed tonight with alarm set. She has been cooperative with staff and took meds whole. She denies HI/SI and denies ever making comments to that effect. She has had no behaviors tonight.
--- NOTE | 2021-02-20 01:07 | CONS ---
DATE OF CONSULTATION: 02/19/2021 REASON FOR CONSULTATION: Medical management. HISTORY OF PRESENT ILLNESS: The patient is a 70-year-old female patient who was a resident at [facility] and who was referred back to this unit by her primary care physician on account of failure of outpatient psychiatric treatment for her bipolar disorder. The patient has been putting herself on the floor, combative towards staff, refusing oxygen, throwing her medication, expressing and verbalizing that she wanted to . She was removing her oxygen repeatedly. In January, she apparently was transported to the Emergency Department due to removing her oxygen and was extremely hypoxic with an oxygen saturation down to 66% on room air and refusing to let the staff put it back on her. These behaviors have persisted, and as she has failed outpatient psychiatric stabilization, she was admitted to this unit for inpatient psychiatric stabilization. PAST MEDICAL HISTORY: Medically, the patient has multiple medical problems including Crohn's disease, irritable bowel syndrome, chronic diarrhea, mild cognitive impairment, chronic obstructive pulmonary disease, gastroesophageal reflux disease, fibromyalgia, seizure disorder. PAST SURGICAL HISTORY: Significant for multiple surgeries for her Crohn's disease. PAST PSYCHIATRIC HISTORY: Significant for bipolar disorder with periods of elation, racing thoughts, alternating with being depressed. Apparently, recently she has been more depressed, hopeless, helpless, worthless, with suicidal ideation as noted above. CODE STATUS: DNR. ALLERGIES: SHE IS ALLERGIC TO BUTORPHANOL, CEFOXITIN, CODEINE, GLUTEN, LACTOSE. MEDICATIONS: She is currently on sulfasalazine 500 mg 3 times a day, hydroxyurea 1000 mg daily, dicyclomine 20 mg 3 times a day, Incruse Ellipta one inhalation daily, albuterol sulfate 2.5 mg by nebulizer every 4 hours, diltiazem 60 mg twice a day, analgesic balm applied topically every 6 hours, acetaminophen 500 mg every 4 hours, acetaminophen 1000 mg every 6 hours, clonazepam 0.5 mg twice a day, divalproex sodium 1000 mg at bedtime, gabapentin 300 mg 4 times a day, levetiracetam 250 mg p.o. b.i.d., duloxetine 30 mg twice a day, trazodone 50 mg at bedtime, potassium chloride 40 mEq daily, zinc gluconate 150 mg daily, furosemide 20 mg daily, fluticasone propionate for Flonase 2 sprays to each nostril once a day, Mylanta 15 mL after meals and as needed, magnesium oxide 400 mg once a day, diphenoxylate/atropine for Lomotil 2 tablets twice a day, Lactobacillus acidophilus 1 capsule daily. She is on bisacodyl 5 mg daily, milk of magnesia 30 mL p.o. daily p.r.n. for constipation. She is on Pancrease 1 capsule 3 times a day with meals. She is on Protonix 20 mg once a day, nystatin powder apply topically twice a day, Lidoderm patch apply topically on for 12 hours, off for 12 hours, Myrbetriq 50 mg daily, ascorbic acid 50 mg daily. She is on ascorbic acid 1000 mg daily, cholecalciferol 50,000 units once a week. FAMILY HISTORY: Noncontributory. SOCIAL HISTORY: She is a resident at [facility]. She apparently is an ex-smoker, does not drink alcohol or use any recreational drugs. REVIEW OF SYSTEMS: As per history of present illness. PHYSICAL EXAMINATION: GENERAL: When I examined her, the patient looked well and was clearly in no apparent respiratory distress. There was no pallor, jaundice, cyanosis or thyromegaly. No jugular venous distention. No lower limb edema. VITAL SIGNS: Her heart rate was 98, blood pressure was 107/72, temperature was 98.1, respiratory rate was 16 and oxygen saturation was 91% on 2 liters of oxygen. HEAD, EYES, EARS, NOSE, AND THROAT: Showed she is normocephalic, atraumatic. NECK: Supple. HEART: Normal first and second heart sounds, no gallop or murmur. CHEST: Clear to auscultation, no crepitation or rhonchi. ABDOMEN: Distended, soft, nontender. NEUROLOGIC: She is awake, alert, responding appropriately. All cranial nerves intact. She moves extremities without difficulty. She is mostly wheelchair bound. She is on 2 liters of oxygen continuously. LABORATORY DATA: Showed a white cell count 7500, hemoglobin is 12, hematocrit 34, MCV 102, and platelet count of 387,000 with normal manual differential. Her serum sodium was 138, potassium 3.6, chloride 100, bicarbonate 31, anion gap of 7, BUN 3, creatinine 0.6. Estimated GFR was 99 mL per minute. Her glucose was 144, calcium was 8.7, magnesium was 1.7. Total bilirubin, AST, ALT, alkaline phosphatase were normal. Total protein 6.8, albumin was 2.6. Her hemoglobin A1c was only 4.9%. Her serum iron was 62, TIBC was 283 and iron saturation was 22. Her serum triglycerides 164, total cholesterol 124, LDL cholesterol was 52, VLDL cholesterol was 52, HDL cholesterol was 40 and the ratio was 3. Her vitamin B12 was 252 and 25-hydroxy vitamin D was extremely high at 113.1. Her TSH, total T4 and free T4 are all within normal range. Her D-dimer was high at 1.27. Urinalysis was essentially unremarkable and toxic screen showed that the valproic acid was 60 mcg per mL, she is well within therapeutic range. Her treponema pallidum antibodies were nonreactive. ASSESSMENT: In summary, this is a 70-year-old female patient who was readmitted from [facility] on account of failure of outpatient psychiatric treatment for her bipolar disorder. The patient has been putting herself on the floor, combative towards staff, refusing oxygen, throwing her medications, expressing and verbalizing that she wants to . She was removing her oxygen repeatedly and had episodes of marked desaturation down to 66% on room air and refusing to let the staff put it back on her. These behaviors have been deemed to be dangerous and unmanageable at the facility, and therefore, she was admitted to this unit for inpatient psychiatric stabilization. Medically, she has Crohn's disease, irritable bowel syndrome, chronic diarrhea, chronic obstructive pulmonary disease, gastroesophageal reflux disease, and seizure disorder. Overall, she seems to be medically stable. Her vital signs are all within normal limits. Her lab works are also well within the normal range. PLAN: My plan is obviously to follow all her labs that are still pending at the time of this dictation and make any necessary recommendation. Thank you, Dr. Duffy, for allowing me to participate in the care of this patient. TOMI/JESUS KOROMA: Bill TID: [id number]
[2021-02-20 05:42] VITALS: BP 103/59
--- NOTE | 2021-02-20 07:20 | PDOC ---
Exam Note: Napoleon Note: This note is a late entry for 02/18/2021 covers elements not covered in my initial note. Subjective: The patient was seen individually in the evening of 02/18/2021 with Eloisa BARR, discussed and reviewed the chart. The patient slept 8-1/4 hours previous night. Overall patient had a fall. Received some skin tears, hematoma to the right forehead. CT head showed microvascular changes, putting herself on the floor. Review of Systems: Ambulation impaired in wheelchair. No CV, , pulmonary, eye system symptoms on review. Mental Status Exam: The patient is oriented to herself and situation. She seemed to remember my name accurately. Abstraction fair. Computation impaired. Language function intact. Mood and affect withdrawn, somewhat depressed, anxious, labile. Laboratory Data: Reviewed. Impression: Bipolar 1 disorder, mixed with psychotic features. Anxiety disorder unspecified. Impulse control disorder unspecified. Mild cognitive impairment. Plan: Continue current psychotropics including Depakote, Cymbalta, and she is also on Keppra and Neurontin. Maintain trazodone 50 mg h.s. Assessment: Vital Signs/I&O: Vital Signs Date Time Temp Pulse Resp B/P (MAP) Pulse Ox O2 Delivery O2 Flow Rate FiO2 02/20/21 05:42 97.8 85 20 103/59 (74) 92 2.0 02/19/21 21:00 Nasal Cannula I & O 02/19/21 02/19/21 02/20/21 15:00 23:00 07:00 Intake Total 600 ml 720 ml Balance 600 ml 720 ml Current Medications: Meds: Current Medications Medications (Trade) Dose Ordered Sig/Mya Route PRN Reason Start Time Stop Time Status Last Admin Dose Admin Acetaminophen (Tylenol) 650 mg PRN Q6HRS PRN PO MILD PAIN / TEMP > 100.3'F 02/16/21 15:45 02/18/21 06:31 Multi-Ingredient Ointment (Analgesic [place]) 1 debra PRN QID PRN TP MUSCLE PAIN 02/16/21 15:45 Al Hydroxide/Mg Hydroxide (Mylanta Plus Xs) 15 ml PRN AFTMEALHC PRN PO DYSPEPSIA 02/16/21 15:45 Magnesium Hydroxide (Milk Of Magnesia) 2,400 mg PRN QHS PRN PO CONSTIPATION 02/16/21 15:45 Acetaminophen (Tylenol) 1,000 mg Q6HRS PRN PO pain or fever 02/16/21 17:00 02/16/21 17:35 DC Acetaminophen (Tylenol) 500 mg Q4HRS PRN PO MILD PAIN 1-3 02/16/21 17:00 02/16/21 17:36 DC Bisacodyl (Dulcolax Tab) 5 mg PRN DAILY PRN PO CONSTIPATION 02/16/21 17:00 Vitamin D (Vitamin D3) 50,000 unit WEEKLY PO 02/22/21 09:00 Clonazepam (KlonoPIN) 0.5 mg BID PO 02/16/21 21:00 02/19/21 20:53 Dicyclomine HCl (Bentyl) 20 mg TID PO 02/16/21 21:00 02/19/21 20:55 Diphenoxylate HCl/ Atropine (Lomotil) 2 tab BID PO 02/16/21 21:00 02/19/21 20:56 Divalproex Sodium (Depakote Er) 1,000 mg HS PO 02/16/21 21:00 02/19/21 20:54 Duloxetine HCl (Cymbalta) 30 mg BID PO 02/16/21 21:00 02/19/21 20:53 Fluticasone Propionate (Flonase) 2 spray DAILY NS 02/17/21 09:00 02/19/21 08:28 Furosemide (Lasix) 20 mg DAILY PO 02/17/21 09:00 02/19/21 08:22 Gabapentin (Neurontin) 300 mg QID PO 02/16/21 17:00 02/19/21 20:55 Hydroxyurea (Hydrea) 1,000 mg DAILY PO 02/17/21 09:00 02/19/21 08:26 Levetiracetam (Keppra) 250 mg BID PO 02/16/21 21:00 02/19/21 20:55 Lidocaine (Lidoderm) 1 patch DAILY TP 02/17/21 09:00 02/17/21 09:24 DC Al Hydroxide/Mg Hydroxide (Mylanta Plus Xs) 15 ml PRN AFTMEALHC PRN PO DYSPEPSIA 02/16/21 17:00 02/16/21 17:36 DC Mirabegron (Myrbetriq) 50 mg DAILY PO 02/17/21 09:00 02/19/21 08:21 Nystatin (Nystop) 1 debra BID TP 02/16/21 21:00 02/19/21 20:53 Pantoprazole Sodium (Protonix) 40 mg DAILYAC PO 02/17/21 07:30 02/19/21 08:26 Potassium Chloride (Klor-Con) 40 meq DAILY PO 02/17/21 09:00 02/19/21 08:22 Sulfasalazine (Azulfidine) 500 mg TID PO 02/16/21 21:00 02/19/21 20:53 Trazodone HCl (Desyrel) 50 mg QHS PO 02/16/21 21:00 02/19/21 20:55 Non-Formulary Medication (Albuterol Sulfate (Albuterol Sulfate Conc Neb Soln)) 1 vial PRN Q4HRS PRN NEB SHORTNESS OF BREATH 02/16/21 17:00 02/16/21 17:49 DC Ascorbic Acid (Vitamin C) 1,000 mg DAILY PO 02/17/21 09:00 02/19/21 08:22 Diltiazem HCl (Cardizem) 60 mg BID PO 02/16/21 21:00 02/19/21 20:54 Lactobacillus Rhamnosus (Culturelle) 1 cap DAILY PO 02/17/21 09:00 02/19/21 08:22 Amylase/Lipase/ Protease (Zenpep 10,000) 1 cap TIDBFRMEAL PO 02/17/21 07:30 02/19/21 17:25 Non-Formulary Medication (Magnesium Hydroxide (Milk Of Magnesia)) 2,400 mg PRN DAILY PRN PO CONSTIPATION 02/16/21 17:00 02/16/21 17:37 DC Magnesium Oxide (Magnesium Oxide) 400 mg DAILY PO 02/17/21 09:00 02/19/21 08:22 Non-Formulary Medication (Methyl Salicylate/ Menthol (Analgesic [place])) 1 debra PRN Q6HRS PRN TP MUSCLE PAIN 02/16/21 17:00 02/16/21 17:37 DC Non-Formulary Medication (Umeclidinium [place] (Incruse Ellipta)) 62.5 mcg DAILY IH 02/17/21 09:00 02/16/21 17:49 DC Non-Formulary Medication (Zinc Gluconate ) 50 mg DAILY PO 02/17/21 09:00 02/16/21 17:46 DC Albuterol/ Ipratropium (Duoneb) 3 ml RTQID NEB 02/16/21 20:00 02/17/21 19:52 DC Albuterol Sulfate (Ventolin) 2.5 mg PRN Q4HRS PRN NEB SHORTNESS OF BREATH 02/16/21 18:00 Influenza Virus Vaccine Quadrival (Flulaval Quad Syringe) 0.5 ml ONCE ONCE VAX IM 02/17/21 09:00 02/17/21 09:01 DC 02/17/21 09:21 Lidocaine (Lidoderm) 1 patch DAILY PRN TP pain 02/17/21 09:30 Albuterol/ Ipratropium (Combivent Respimat 20-100 Mcg) 1 puff RTQID INH 02/17/21 20:00 02/19/21 20:56 I have reviewed the current psychotropics carefully including drug interactions. Risk benefit ratio favors no change other than as noted in my dictated progress note. Diagnosis: Problems: (1) Impulse control disorder, unspecified (2) Mild cognitive impairment (3) Anxiety disorder, unspecified (4) Major depressive disorder with psychotic features (5) Bipolar disorder, curr episode mixed, severe, with psychotic features NITHIN STEVENS MD Feb 20, 2021 07:20
--- NOTE | 2021-02-20 07:54 | PDOC ---
Exam Note: Napoleon Note: This note is a late entry for 02/19/2021 covers elements not covered in my initial note. Subjective: The patient was seen individually in the evening of 02/19/2021 with Federica BARR, discussed and reviewed the chart. The patient slept 8-1/4 hours previous night. Overall patient has been appropriate on the unit. Review of Systems: Ambulation impaired in wheelchair. No CV, , pulmonary, eye system symptoms on review. Mental Status Exam: The patient is oriented to herself and situation. Speech coherent. Abstraction fair. Computation impaired. Language function intact. Mood and affect remains somewhat anxious, labile. She again remembered my name accurately. Laboratory Data: Reviewed. Impression: Bipolar 1 disorder, mixed with psychotic features. Anxiety disorder unspecified. Impulse control disorder unspecified. Mild cognitive impairment. Plan: Continue current psychotropics from initial note. Assessment: Vital Signs/I&O: Vital Signs Date Time Temp Pulse Resp B/P (MAP) Pulse Ox O2 Delivery O2 Flow Rate FiO2 02/20/21 05:42 97.8 85 20 103/59 (74) 92 2.0 02/19/21 21:00 Nasal Cannula I & O 02/19/21 02/19/21 02/20/21 15:00 23:00 07:00 Intake Total 600 ml 720 ml Balance 600 ml 720 ml Current Medications: Meds: Current Medications Medications (Trade) Dose Ordered Sig/Mya Route PRN Reason Start Time Stop Time Status Last Admin Dose Admin Acetaminophen (Tylenol) 650 mg PRN Q6HRS PRN PO MILD PAIN / TEMP > 100.3'F 02/16/21 15:45 02/18/21 06:31 Multi-Ingredient Ointment (Analgesic [place]) 1 debra PRN QID PRN TP MUSCLE PAIN 02/16/21 15:45 Al Hydroxide/Mg Hydroxide (Mylanta Plus Xs) 15 ml PRN AFTMEALHC PRN PO DYSPEPSIA 02/16/21 15:45 Magnesium Hydroxide (Milk Of Magnesia) 2,400 mg PRN QHS PRN PO 1ST CHOICE CONSTIPATION 02/16/21 15:45 Acetaminophen (Tylenol) 1,000 mg Q6HRS PRN PO pain or fever 02/16/21 17:00 02/16/21 17:35 DC Acetaminophen (Tylenol) 500 mg Q4HRS PRN PO MILD PAIN 1-3 02/16/21 17:00 02/16/21 17:36 DC Bisacodyl (Dulcolax Tab) 5 mg PRN DAILY PRN PO 2ND CHOICE CONSTIPATION 02/16/21 17:00 Vitamin D (Vitamin D3) 50,000 unit WEEKLY PO 02/22/21 09:00 Clonazepam (KlonoPIN) 0.5 mg BID PO 02/16/21 21:00 02/19/21 20:53 Dicyclomine HCl (Bentyl) 20 mg TID PO 02/16/21 21:00 02/19/21 20:55 Diphenoxylate HCl/ Atropine (Lomotil) 2 tab BID PO 02/16/21 21:00 02/19/21 20:56 Divalproex Sodium (Depakote Er) 1,000 mg HS PO 02/16/21 21:00 02/19/21 20:54 Duloxetine HCl (Cymbalta) 30 mg BID PO 02/16/21 21:00 02/19/21 20:53 Fluticasone Propionate (Flonase) 2 spray DAILY NS 02/17/21 09:00 02/19/21 08:28 Furosemide (Lasix) 20 mg DAILY PO 02/17/21 09:00 02/19/21 08:22 Gabapentin (Neurontin) 300 mg QID PO 02/16/21 17:00 02/19/21 20:55 Hydroxyurea (Hydrea) 1,000 mg DAILY PO 02/17/21 09:00 02/19/21 08:26 Levetiracetam (Keppra) 250 mg BID PO 02/16/21 21:00 02/19/21 20:55 Lidocaine (Lidoderm) 1 patch DAILY TP 02/17/21 09:00 02/17/21 09:24 DC Al Hydroxide/Mg Hydroxide (Mylanta Plus Xs) 15 ml PRN AFTMEALHC PRN PO DYSPEPSIA 02/16/21 17:00 02/16/21 17:36 DC Mirabegron (Myrbetriq) 50 mg DAILY PO 02/17/21 09:00 02/19/21 08:21 Nystatin (Nystop) 1 debra BID TP 02/16/21 21:00 02/19/21 20:53 Pantoprazole Sodium (Protonix) 40 mg DAILYAC PO 02/17/21 07:30 02/19/21 08:26 Potassium Chloride (Klor-Con) 40 meq DAILY PO 02/17/21 09:00 02/19/21 08:22 Sulfasalazine (Azulfidine) 500 mg TID PO 02/16/21 21:00 02/19/21 20:53 Trazodone HCl (Desyrel) 50 mg QHS PO 02/16/21 21:00 02/19/21 20:55 Non-Formulary Medication (Albuterol Sulfate (Albuterol Sulfate Conc Neb Soln)) 1 vial PRN Q4HRS PRN NEB SHORTNESS OF BREATH 02/16/21 17:00 02/16/21 17:49 DC Ascorbic Acid (Vitamin C) 1,000 mg DAILY PO 02/17/21 09:00 02/19/21 08:22 Diltiazem HCl (Cardizem) 60 mg BID PO 02/16/21 21:00 02/19/21 20:54 Lactobacillus Rhamnosus (Culturelle) 1 cap DAILY PO 02/17/21 09:00 02/19/21 08:22 Amylase/Lipase/ Protease (Zenpep 10,000) 1 cap TIDBFRMEAL PO 02/17/21 07:30 02/19/21 17:25 Non-Formulary Medication (Magnesium Hydroxide (Milk Of Magnesia)) 2,400 mg PRN DAILY PRN PO CONSTIPATION 02/16/21 17:00 02/16/21 17:37 DC Magnesium Oxide (Magnesium Oxide) 400 mg DAILY PO 02/17/21 09:00 02/19/21 08:22 Non-Formulary Medication (Methyl Salicylate/ Menthol (Analgesic [place])) 1 debra PRN Q6HRS PRN TP MUSCLE PAIN 02/16/21 17:00 02/16/21 17:37 DC Non-Formulary Medication (Umeclidinium [place] (Incruse Ellipta)) 62.5 mcg DAILY IH 02/17/21 09:00 02/16/21 17:49 DC Non-Formulary Medication (Zinc Gluconate ) 50 mg DAILY PO 02/17/21 09:00 02/16/21 17:46 DC Albuterol/ Ipratropium (Duoneb) 3 ml RTQID NEB 02/16/21 20:00 10/8/21 19:52 DC Albuterol Sulfate (Ventolin) 2.5 mg PRN Q4HRS PRN NEB SHORTNESS OF BREATH 02/16/21 18:00 Influenza Virus Vaccine Quadrival (Flulaval Quad Syringe) 0.5 ml ONCE ONCE VAX IM 02/17/21 09:00 02/17/21 09:01 DC 02/17/21 09:21 Lidocaine (Lidoderm) 1 patch DAILY PRN TP pain 02/17/21 09:30 Albuterol/ Ipratropium (Combivent Respimat 20-100 Mcg) 1 puff RTQID INH 02/17/21 20:00 02/19/21 20:56 I have reviewed the current psychotropics carefully including drug interactions. Risk benefit ratio favors no change other than as noted in my dictated progress note. Diagnosis: Problems: (1) Bipolar disorder, curr episode mixed, severe, with psychotic features (2) Mild cognitive impairment (3) Anxiety disorder, unspecified (4) Impulse control disorder, unspecified NITHIN STEVENS MD Feb 20, 2021 07:54
[2021-02-20] MEDS: FLUTICASONE 50MCG/NASAL SPRAY 16GM BOTTLE. NS SCH (08:08)
[2021-02-20] MEDS: DIPHENOXYLATE/ATROPINE TABLET. PO SCH ×2 (08:09→20:31)
[2021-02-20] MEDS: POTASSIUM CHLORIDE 20 MEQ TABLET.ER. PO SCH (08:09)
[2021-02-20] MEDS: IPRATROPIUM/ALBUTEROL 20/100mcg/INH INHALER. INH SCH ×4 (08:09→20:27)
[2021-02-20] MEDS: DICYCLOMINE HCL 20 MG TABLET PO SCH ×3 (08:10→20:31)
[2021-02-20] MEDS: clonazePAM 0.5 MG TABLET PO SCH ×2 (08:10→20:34)
[2021-02-20] MEDS: sulfaSALAzine 500 MG TABLET PO SCH ×3 (08:11→20:31)
[2021-02-20] MEDS: MIRABEGRON 25 MG TAB.ER.24H PO SCH (08:11)
[2021-02-20] MEDS: ASCORBIC ACID 1,000 MG TABLET PO SCH (08:11)
[2021-02-20] MEDS: PANTOPRAZOLE 40 MG TABLET. PO SCH (08:11)
[2021-02-20] MEDS: LIPASE/PROTEAS/AMYLAS 10/32/42 CAPSULE.DR. PO SCH ×3 (08:11→17:18)
[2021-02-20] MEDS: DULoxetine HCL 30 MG CAPSULE.DR PO SCH ×2 (08:12→20:31)
[2021-02-20] MEDS: MAGNESIUM OXIDE 400 MG TABLET PO SCH (08:12)
[2021-02-20] MEDS: GABAPENTIN 300 MG CAPSULE. PO SCH ×4 (08:12→20:31)
[2021-02-20] MEDS: dilTIAZem HCL 30 MG TABLET PO SCH ×2 (08:12→20:30)
[2021-02-20] MEDS: LACTOBACILLUS RHAMNOSUS GG 1 CAPSULE. PO SCH (08:12)
[2021-02-20] MEDS: levETIRAcetam 250 MG TABLET PO SCH ×2 (08:12→20:31)
[2021-02-20] MEDS: FUROSEMIDE 20 MG TABLET PO SCH (08:12)
[2021-02-20] MEDS: NYSTATIN TOPICAL POWDER 15GM BOTTLE. TP SCH ×2 (08:13→20:30)
[2021-02-20] MEDS: HYDROXYUREA 500 MG CAPSULE PO SCH (08:15)
[2021-02-20 15:49] VITALS: BP 110/70
--- NOTE | 2021-02-20 17:40 | NUR ---
Nsg Note; Brigitte enjoys the attention of staff and will freq request things. She has spent most of the day in a chair in the [address], watching what is happening on the unit. She has been pleasant and cooperative. She feeds herself and takes her meds whole without any resistance. She requires one person to assist with toileting and transferring. As she has had bowels resections sec to Crohn's disease, she has several loose stools a day and can occ be incontinent if not toileted quickly
[2021-02-20] MEDS: DIVALPROEX ER 500 MG TAB.ER.24H PO SCH (20:30)
[2021-02-20] MEDS: traZODone 50 MG TABLET. PO SCH (20:31)
--- NOTE | 2021-02-20 21:58 | PDOC ---
Exam Note: Napoleon Note: Please also refer to the separate dictated note~for this date of service dictated separately.~Patient seen individually. Discussed the patient with Nursing staff reviewed the chart.~Reviewed interim history and current functioning. Reviewed vital signs,~Labs/ Radiology~and current medications noted below. Continue current treatment with the changes noted in the dictated addendum note Assessment: Vital Signs/I&O: Vital Signs Date Time Temp Pulse Resp B/P (MAP) Pulse Ox O2 Delivery O2 Flow Rate FiO2 02/20/21 20:30 88 110/70 02/20/21 15:49 97.6 18 95 2.0 02/19/21 21:00 Nasal Cannula I & O 0 02/19/21 02/19/21 02/20/21 15:00 23:00 07:00 Intake Total 600 ml 720 ml Balance 600 ml 720 ml Current Medications: Meds: Current Medications Medications (Trade) Dose Ordered Sig/Mya Route PRN Reason Start Time Stop Time Status Last Admin Dose Admin Acetaminophen (Tylenol) 650 mg PRN Q6HRS PRN PO MILD PAIN / TEMP > 100.3'F 02/16/21 15:45 02/18/21 06:31 Multi-Ingredient Ointment (Analgesic [place]) 1 debra PRN QID PRN TP MUSCLE PAIN 02/16/21 15:45 Al Hydroxide/Mg Hydroxide (Mylanta Plus Xs) 15 ml PRN AFTMEALHC PRN PO DYSPEPSIA 02/16/21 15:45 Magnesium Hydroxide (Milk Of Magnesia) 2,400 mg PRN QHS PRN PO 1ST CHOICE CONSTIPATION 02/16/21 15:45 Acetaminophen (Tylenol) 1,000 mg Q6HRS PRN PO pain or fever 02/16/21 17:00 02/16/21 17:35 DC Acetaminophen (Tylenol) 500 mg Q4HRS PRN PO MILD PAIN 1-3 02/16/21 17:00 02/16/21 17:36 DC Bisacodyl (Dulcolax Tab) 5 mg PRN DAILY PRN PO 2ND CHOICE CONSTIPATION 02/16/21 17:00 Vitamin D (Vitamin D3) 50,000 unit WEEKLY PO 02/22/21 09:00 Clonazepam (KlonoPIN) 0.5 mg BID PO 02/16/21 21:00 02/20/21 20:34 Dicyclomine HCl (Bentyl) 20 mg TID PO 02/16/21 21:00 02/20/21 20:31 Diphenoxylate HCl/ Atropine (Lomotil) 2 tab BID PO 02/16/21 21:00 02/20/21 20:31 Divalproex Sodium (Depakote Er) 1,000 mg HS PO 02/16/21 21:00 02/20/21 20:30 Duloxetine HCl (Cymbalta) 30 mg BID PO 02/16/21 21:00 02/20/21 20:31 Fluticasone Propionate (Flonase) 2 spray DAILY NS 02/17/21 09:00 02/20/21 08:08 Furosemide (Lasix) 20 mg DAILY PO 02/17/21 09:00 02/20/21 08:12 Gabapentin (Neurontin) 300 mg QID PO 02/16/21 17:00 02/20/21 20:31 Hydroxyurea (Hydrea) 1,000 mg DAILY PO 02/17/21 09:00 02/20/21 08:15 Levetiracetam (Keppra) 250 mg BID PO 02/16/21 21:00 02/20/21 20:31 Lidocaine (Lidoderm) 1 patch DAILY TP 02/17/21 09:00 02/17/21 09:24 DC Al Hydroxide/Mg Hydroxide (Mylanta Plus Xs) 15 ml PRN AFTMEALHC PRN PO DYSPEPSIA 02/16/21 17:00 02/16/21 17:36 DC Mirabegron (Myrbetriq) 50 mg DAILY PO 02/17/21 09:00 02/20/21 08:11 Nystatin (Nystop) 1 debra BID TP 02/16/21 21:00 02/20/21 20:30 Pantoprazole Sodium (Protonix) 40 mg DAILYAC PO 02/17/21 07:30 02/20/21 08:11 Potassium Chloride (Klor-Con) 40 meq DAILY PO 02/17/21 09:00 02/20/21 08:09 Sulfasalazine (Azulfidine) 500 mg TID PO 02/16/21 21:00 02/20/21 20:31 Trazodone HCl (Desyrel) 50 mg QHS PO 02/16/21 21:00 02/20/21 20:31 Non-Formulary Medication (Albuterol Sulfate (Albuterol Sulfate Conc Neb Soln)) 1 vial PRN Q4HRS PRN NEB SHORTNESS OF BREATH 02/16/21 17:00 02/16/21 17:49 DC Ascorbic Acid (Vitamin C) 1,000 mg DAILY PO 02/17/21 09:00 02/20/21 08:11 Diltiazem HCl (Cardizem) 60 mg BID PO 02/16/21 21:00 02/20/21 20:30 Lactobacillus Rhamnosus (Culturelle) 1 cap DAILY PO 02/17/21 09:00 02/20/21 08:12 Amylase/Lipase/ Protease (Zenpep 10,000) 1 cap TIDBFRMEAL PO 02/17/21 07:30 02/20/21 17:18 Non-Formulary Medication (Magnesium Hydroxide (Milk Of Magnesia)) 2,400 mg PRN DAILY PRN PO CONSTIPATION 02/16/21 17:00 02/16/21 17:37 DC Magnesium Oxide (Magnesium Oxide) 400 mg DAILY PO 02/17/21 09:00 02/20/21 08:12 Non-Formulary Medication (Methyl Salicylate/ Menthol (Analgesic [place])) 1 debra PRN Q6HRS PRN TP MUSCLE PAIN 02/16/21 17:00 02/16/21 17:37 DC Non-Formulary Medication (Umeclidinium [place] (Incruse Ellipta)) 62.5 mcg DAILY IH 02/17/21 09:00 02/16/21 17:49 DC Non-Formulary Medication (Zinc Gluconate ) 50 mg DAILY PO 02/17/21 09:00 02/16/21 17:46 DC Albuterol/ Ipratropium (Duoneb) 3 ml RTQID NEB 02/16/21 20:00 02/17/21 19:52 DC Albuterol Sulfate (Ventolin) 2.5 mg PRN Q4HRS PRN NEB SHORTNESS OF BREATH 02/16/21 18:00 Influenza Virus Vaccine Quadrival (Flulaval Quad [id number] Syringe) 0.5 ml ONCE ONCE VAX IM 02/17/21 09:00 02/17/21 09:01 DC 02/17/21 09:21 Lidocaine (Lidoderm) 1 patch DAILY PRN TP pain 02/17/21 09:30 Albuterol/ Ipratropium (Combivent Respimat 20-100 Mcg) 1 puff RTQID INH 02/17/21 20:00 02/20/21 20:27 I have reviewed the current psychotropics carefully including drug interactions. Risk benefit ratio favors no change other than as noted in my dictated progress note. Diagnosis: Problems: (1) Impulse control disorder, unspecified (2) Mild cognitive impairment (3) Anxiety disorder, unspecified (4) Major depressive disorder with psychotic features (5) Bipolar disorder, curr episode mixed, severe, with psychotic features NITHIN STEVENS MD Feb 20, 2021 21:58
--- NOTE | 2021-02-21 05:55 | NUR ---
Pt has been in bed in her room tonight. She was more confused last night and wanted to get up to check on the kids and make sure all the lights are off. This morning she knows we are in a hospital and says it is 2019. She took meds whole without difficulty and has been cooperative with staff and cares tonight
[2021-02-21 06:36] VITALS: BP 89/62
--- NOTE | 2021-02-21 08:28 | NUR ---
Wound care Wound care consult for bilateral elbow skin tears. Skin tears are resolved. Painted elbows with skin prep to protect new skin. Wound care will sign off at this time. please reconsult if new wounds develop.
[2021-02-21] MEDS: PANTOPRAZOLE 40 MG TABLET. PO SCH (08:38)
[2021-02-21] MEDS: MAGNESIUM OXIDE 400 MG TABLET PO SCH (08:38)
[2021-02-21] MEDS: sulfaSALAzine 500 MG TABLET PO SCH ×3 (08:38→21:04)
[2021-02-21] MEDS: FUROSEMIDE 20 MG TABLET PO SCH (08:38)
[2021-02-21] MEDS: HYDROXYUREA 500 MG CAPSULE PO SCH (08:42)
[2021-02-21] MEDS: DULoxetine HCL 30 MG CAPSULE.DR PO SCH ×2 (08:44→21:01)
[2021-02-21] MEDS: DIPHENOXYLATE/ATROPINE TABLET. PO SCH ×2 (08:44→21:01)
[2021-02-21] MEDS: MIRABEGRON 25 MG TAB.ER.24H PO SCH (08:44)
[2021-02-21] MEDS: LACTOBACILLUS RHAMNOSUS GG 1 CAPSULE. PO SCH (08:44)
[2021-02-21] MEDS: ASCORBIC ACID 1,000 MG TABLET PO SCH (08:44)
[2021-02-21] MEDS: POTASSIUM CHLORIDE 20 MEQ TABLET.ER. PO SCH (08:45)
[2021-02-21] MEDS: DICYCLOMINE HCL 20 MG TABLET PO SCH ×3 (08:45→21:02)
[2021-02-21] MEDS: GABAPENTIN 300 MG CAPSULE. PO SCH ×4 (08:45→21:01)
[2021-02-21] MEDS: levETIRAcetam 250 MG TABLET PO SCH ×2 (08:45→21:01)
[2021-02-21] MEDS: FLUTICASONE 50MCG/NASAL SPRAY 16GM BOTTLE. NS SCH (08:46)
[2021-02-21] MEDS: LIPASE/PROTEAS/AMYLAS 10/32/42 CAPSULE.DR. PO SCH ×3 (08:46→17:23)
[2021-02-21] MEDS: IPRATROPIUM/ALBUTEROL 20/100mcg/INH INHALER. INH SCH ×4 (08:46→21:01)
[2021-02-21] MEDS: clonazePAM 0.5 MG TABLET PO SCH ×2 (08:49→21:01)
[2021-02-21] MEDS: dilTIAZem HCL 30 MG TABLET PO SCH ×2 (09:00→21:02)
[2021-02-21] MEDS: NYSTATIN TOPICAL POWDER 15GM BOTTLE. TP SCH ×2 (09:00→21:04)
--- NOTE | 2021-02-21 10:28 | EKG ---
[address] [address] Test Date: 2021-02-17 Test Time: 20:29:56 Pat Name: SHY MCGHEE Department: Room: [address] [place] [address] Gender: F [employer] Operator: : [id number] Requested By: NITHIN STEVENS Order Number: [id number] Reading MD: Jesus Sevilla MD Measurements Intervals Marsing Rate: P: DC: QRS: QRSD: T: QT: QTc: Interpretive Statements SR NON-SPECIFIC ST/T CHANGES Electronically Signed On 02-27-2021 12:13:58 CDT by Jesus Sevilla MD
--- NOTE | 2021-02-21 10:51 | NUR ---
Pt discovered sitting on bathroom floor by WEB SERVICES MANAGER. This nurse entered bathroom and observed pt calmly sitting on her buttocks next to the toilet and w/c to the side of her. She appeared calm, no signs of distress, absent of visible injuries. This nurse asked what happened and she replied, "I fell." When asked what was happening when she fell she said "I tried to get up to go to the toilet." When asked if she was ever instructed by staff to request assistance with toileting she replied "yes." When asked if she requested for help she stated "no." When I asked why she did not ask for help pt replied "I don't know." Pt has documented hx from previous facility and since admission of attempting to place self onto floor and/or successfully placing self onto floor. This may be a similar behavior. Pt assisted 2:1 to toilet so she could take care of voiding needs, and then assisted into hallway where nursing staff can observe her more effectively for safety.
[2021-02-21 16:19] VITALS: BP 123/81
--- NOTE | 2021-02-21 18:30 | NUR ---
Patient has been calm, confused, and pleasant throughout the majority of this shift. She has been more anxious in the late afternoon, stating that she needs to get home to her mother. Will continue to monitor and report to oncoming staff
[2021-02-21] MEDS: traZODone 50 MG TABLET. PO SCH (21:02)
[2021-02-21] MEDS: DIVALPROEX ER 500 MG TAB.ER.24H PO SCH (21:02)
--- NOTE | 2021-02-21 21:59 | PDOC ---
Exam Note: Napoleon Note: Please also refer to the separate dictated note~for this date of service dictated separately.~Patient seen individually. Discussed the patient with Nursing staff reviewed the chart.~Reviewed interim history and current functioning. Reviewed vital signs,~Labs/ Radiology~and current medications noted below. Continue current treatment with the changes noted in the dictated addendum note Assessment: Vital Signs/I&O: Vital Signs Date Time Temp Pulse Resp B/P (MAP) Pulse Ox O2 Delivery O2 Flow Rate FiO2 02/21/21 21:02 91 123/81 02/21/21 16:19 98.5 19 94 02/21/21 06:36 2.0 02/19/21 21:00 Nasal Cannula I & O 02/20/21 02/20/21 02/21/21 15:00 23:00 07:00 Intake Total 1020 ml 340 ml Balance 1020 ml 340 ml Current Medications: Meds: Current Medications Medications (Trade) Dose Ordered Sig/Mya Route PRN Reason Start Time Stop Time Status Last Admin Dose Admin Acetaminophen (Tylenol) 650 mg PRN Q6HRS PRN PO MILD PAIN / TEMP > 100.3'F 02/16/21 15:45 02/18/21 06:31 Multi-Ingredient Ointment (Analgesic [place]) 1 debra PRN QID PRN TP MUSCLE PAIN 02/16/21 15:45 Al Hydroxide/Mg Hydroxide (Mylanta Plus Xs) 15 ml PRN AFTMEALHC PRN PO DYSPEPSIA 02/16/21 15:45 Magnesium Hydroxide (Milk Of Magnesia) 2,400 mg PRN QHS PRN PO 1ST CHOICE CONSTIPATION 02/16/21 15:45 Acetaminophen (Tylenol) 1,000 mg Q6HRS PRN PO pain or fever 02/16/21 17:00 02/16/21 17:35 DC Acetaminophen (Tylenol) 500 mg Q4HRS PRN PO MILD PAIN 1-3 02/16/21 17:00 02/16/21 17:36 DC Bisacodyl (Dulcolax Tab) 5 mg PRN DAILY PRN PO 2ND CHOICE CONSTIPATION 02/16/21 17:00 Vitamin D (Vitamin D3) 50,000 unit WEEKLY PO 02/22/21 09:00 Clonazepam (KlonoPIN) 0.5 mg BID PO 02/16/21 21:00 02/21/21 21:01 Dicyclomine HCl (Bentyl) 20 mg TID PO 02/16/21 21:00 02/21/21 21:02 Diphenoxylate HCl/ Atropine (Lomotil) 2 tab BID PO 02/16/21 21:00 02/21/21 21:01 Divalproex Sodium (Depakote Er) 1,000 mg HS PO 02/16/21 21:00 02/21/21 21:02 Duloxetine HCl (Cymbalta) 30 mg BID PO 02/16/21 21:00 02/21/21 21:01 Fluticasone Propionate (Flonase) 2 spray DAILY NS 02/17/21 09:00 02/21/21 08:46 Furosemide (Lasix) 20 mg DAILY PO 02/17/21 09:00 02/21/21 08:38 Gabapentin (Neurontin) 300 mg QID PO 02/16/21 17:00 02/21/21 21:01 Hydroxyurea (Hydrea) 1,000 mg DAILY PO 02/17/21 09:00 02/21/21 08:42 Levetiracetam (Keppra) 250 mg BID PO 02/16/21 21:00 02/21/21 21:01 Lidocaine (Lidoderm) 1 patch DAILY TP 02/17/21 09:00 02/17/21 09:24 DC Al Hydroxide/Mg Hydroxide (Mylanta Plus Xs) 15 ml PRN AFTMEALHC PRN PO DYSPEPSIA 02/16/21 17:00 02/16/21 17:36 DC Mirabegron (Myrbetriq) 50 mg DAILY PO 02/17/21 09:00 02/21/21 08:44 Nystatin (Nystop) 1 debra BID TP 02/16/21 21:00 02/21/21 21:04 Pantoprazole Sodium (Protonix) 40 mg DAILYAC PO 02/17/21 07:30 02/21/21 08:38 Potassium Chloride (Klor-Con) 40 meq DAILY PO 02/17/21 09:00 02/21/21 08:45 Sulfasalazine (Azulfidine) 500 mg TID PO 02/16/21 21:00 02/21/21 21:04 Trazodone HCl (Desyrel) 50 mg QHS PO 02/16/21 21:00 02/21/21 21:02 Non-Formulary Medication (Albuterol Sulfate (Albuterol Sulfate Conc Neb Soln)) 1 vial PRN Q4HRS PRN NEB SHORTNESS OF BREATH 02/16/21 17:00 02/16/21 17:49 DC Ascorbic Acid (Vitamin C) 1,000 mg DAILY PO 02/17/21 09:00 02/21/21 08:44 Diltiazem HCl (Cardizem) 60 mg BID PO 02/16/21 21:00 02/21/21 21:02 Lactobacillus Rhamnosus (Culturelle) 1 cap DAILY PO 02/17/21 09:00 02/21/21 08:44 Amylase/Lipase/ Protease (Zenpep 10,000) 1 cap TIDBFRMEAL PO 02/17/21 07:30 02/21/21 17:23 Non-Formulary Medication (Magnesium Hydroxide (Milk Of Magnesia)) 2,400 mg PRN DAILY PRN PO CONSTIPATION 02/16/21 17:00 02/16/21 17:37 DC Magnesium Oxide (Magnesium Oxide) 400 mg DAILY PO 02/17/21 09:00 02/21/21 08:38 Non-Formulary Medication (Methyl Salicylate/ Menthol (Analgesic [place])) 1 debra PRN Q6HRS PRN TP MUSCLE PAIN 02/16/21 17:00 02/16/21 17:37 DC Non-Formulary Medication (Umeclidinium [place] (Incruse Ellipta)) 62.5 mcg DAILY IH 02/17/21 09:00 02/16/21 17:49 DC Non-Formulary Medication (Zinc Gluconate ) 50 mg DAILY PO 02/17/21 09:00 02/16/21 17:46 DC Albuterol/ Ipratropium (Duoneb) 3 ml RTQID NEB 02/16/21 20:00 02/17/21 19:52 DC Albuterol Sulfate (Ventolin) 2.5 mg PRN Q4HRS PRN NEB SHORTNESS OF BREATH 02/16/21 18:00 Influenza Virus Vaccine Quadrival (Flulaval Quad [id number] Syringe) 0.5 ml ONCE ONCE VAX IM 02/17/21 09:00 02/17/21 09:01 DC 02/17/21 09:21 Lidocaine (Lidoderm) 1 patch DAILY PRN TP pain 02/17/21 09:30 Albuterol/ Ipratropium (Combivent Respimat 20-100 Mcg) 1 puff RTQID INH 02/17/21 20:00 02/21/21 21:01 I have reviewed the current psychotropics carefully including drug interactions. Risk benefit ratio favors no change other than as noted in my dictated progress note. Diagnosis: Problems: (1) Impulse control disorder, unspecified (2) Mild cognitive impairment (3) Anxiety disorder, unspecified (4) Bipolar disorder, curr episode mixed, severe, with psychotic features (5) Bipolar 1 disorder, depressed NITHIN STEVENS MD Feb 21, 2021 21:59
--- NOTE | 2021-02-22 02:23 | NUR ---
Pt has been pleasant and cooperative with meds and care tonight. She remains confused and since going to bed she has been sleeping.
[2021-02-22 05:46] VITALS: BP 115/70
[2021-02-22] MEDS: DIPHENOXYLATE/ATROPINE TABLET. PO SCH ×2 (06:40→21:27)
[2021-02-22] MEDS: GABAPENTIN 300 MG CAPSULE. PO SCH ×4 (06:41→21:24)
[2021-02-22] MEDS: dilTIAZem HCL 30 MG TABLET PO SCH ×2 (06:41→21:48)
[2021-02-22] MEDS: DULoxetine HCL 30 MG CAPSULE.DR PO SCH ×2 (06:41→21:25)
[2021-02-22] MEDS: MIRABEGRON 25 MG TAB.ER.24H PO SCH (06:42)
[2021-02-22] MEDS: sulfaSALAzine 500 MG TABLET PO SCH ×3 (06:42→21:27)
[2021-02-22] MEDS: MAGNESIUM OXIDE 400 MG TABLET PO SCH (06:42)
[2021-02-22] MEDS: LACTOBACILLUS RHAMNOSUS GG 1 CAPSULE. PO SCH (06:43)
[2021-02-22] MEDS: POTASSIUM CHLORIDE 20 MEQ TABLET.ER. PO SCH (06:43)
[2021-02-22] MEDS: DICYCLOMINE HCL 20 MG TABLET PO SCH ×3 (06:43→21:25)
[2021-02-22] MEDS: LIPASE/PROTEAS/AMYLAS 10/32/42 CAPSULE.DR. PO SCH ×3 (06:43→16:45)
[2021-02-22] MEDS: levETIRAcetam 250 MG TABLET PO SCH ×2 (06:43→21:25)
[2021-02-22] MEDS: PANTOPRAZOLE 40 MG TABLET. PO SCH (06:43)
[2021-02-22] MEDS: ASCORBIC ACID 1,000 MG TABLET PO SCH (06:43)
[2021-02-22] MEDS: FUROSEMIDE 20 MG TABLET PO SCH (06:44)
[2021-02-22] MEDS: IPRATROPIUM/ALBUTEROL 20/100mcg/INH INHALER. INH SCH ×4 (07:14→21:53)
[2021-02-22] MEDS: FLUTICASONE 50MCG/NASAL SPRAY 16GM BOTTLE. NS SCH (07:14)
[2021-02-22] MEDS: HYDROXYUREA 500 MG CAPSULE PO SCH (07:15)
[2021-02-22] MEDS: NYSTATIN TOPICAL POWDER 15GM BOTTLE. TP SCH ×2 (07:16→21:25)
[2021-02-22] MEDS: CHOLECALCIFEROL (VITAMIN D3) 50,000 UNIT CAPSULE PO SCH (07:16)
[2021-02-22] MEDS: SERTRALINE 25 MG TABLET. PO SCH (07:16)
[2021-02-22] MEDS: clonazePAM 0.5 MG TABLET PO SCH ×2 (07:16→21:27)
--- NOTE | 2021-02-22 08:29 | PDOC ---
Exam Note: Napoleon Note: This note is a late entry for 02/20/2021 covers elements not covered in my initial note. Subjective: The patient was seen individually in the evening of 02/20/2021 with Joshua BARR, discussed and reviewed the chart. The patient slept 8 hours previous night. She is compliant with medications. I met with her in her room. She continues to state that staff at the nursing staff were not accurate when they described some of the behaviors prompting this referral. She is not putting herself on the floor. Review of Systems: Ambulation impaired in wheelchair. No CV, , pulmonary, eye system symptoms on review. Mental Status Exam: The patient is oriented to herself and situation. Speech c oherent. Abstraction fair. Computation impaired. Language function intact. Mood and affect remains somewhat anxious. Laboratory Data: Reviewed. Impression: Bipolar 1 disorder, mixed with psychotic features. Anxiety disorder unspecified. Impulse control disorder unspecified. Mild cognitive impairment. Plan: Continue current psychotropics from initial note. Assessment: Vital Signs/I&O: Vital Signs Date Time Temp Pulse Resp B/P (MAP) Pulse Ox O2 Delivery O2 Flow Rate FiO2 02/22/21 06:41 87 115/70 02/22/21 05:46 98.3 18 91 2.0 02/19/21 21:00 Nasal Cannula I & O 02/21/21 02/21/21 02/22/21 15:00 23:00 07:00 Intake Total 600 ml 200 ml Balance 600 ml 200 ml Current Medications: Meds: Current Medications Medications (Trade) Dose Ordered Sig/Mya Route PRN Reason Start Time Stop Time Status Last Admin Dose Admin Acetaminophen (Tylenol) 650 mg PRN Q6HRS PRN PO MILD PAIN / TEMP > 100.3'F 02/16/21 15:45 02/18/21 06:31 Multi-Ingredient Ointment (Analgesic [place]) 1 debra PRN QID PRN TP MUSCLE PAIN 02/16/21 15:45 Al Hydroxide/Mg Hydroxide (Mylanta Plus Xs) 15 ml PRN AFTMEALHC PRN PO DYSPEPSIA 02/16/21 15:45 Magnesium Hydroxide (Milk Of Magnesia) 2,400 mg PRN QHS PRN PO 1ST CHOICE CONSTIPATION 02/16/21 15:45 Acetaminophen (Tylenol) 1,000 mg Q6HRS PRN PO pain or fever 02/16/21 17:00 02/16/21 17:35 DC Acetaminophen (Tylenol) 500 mg Q4HRS PRN PO MILD PAIN 1-3 02/16/21 17:00 02/16/21 17:36 DC Bisacodyl (Dulcolax Tab) 5 mg PRN DAILY PRN PO 2ND CHOICE CONSTIPATION 02/16/21 17:00 Vitamin D (Vitamin D3) 50,000 unit WEEKLY PO 02/22/21 09:00 02/22/21 07:16 Clonazepam (KlonoPIN) 0.5 mg BID PO 02/16/21 21:00 02/22/21 07:16 Dicyclomine HCl (Bentyl) 20 mg TID PO 02/16/21 21:00 02/22/21 06:43 Diphenoxylate HCl/ Atropine (Lomotil) 2 tab BID PO 02/16/21 21:00 02/22/21 06:40 Divalproex Sodium (Depakote Er) 1,000 mg HS PO 02/16/21 21:00 02/21/21 21:02 Duloxetine HCl (Cymbalta) 30 mg BID PO 02/16/21 21:00 02/22/21 06:41 Fluticasone Propionate (Flonase) 2 spray DAILY NS 02/17/21 09:00 02/22/21 07:14 Furosemide (Lasix) 20 mg DAILY PO 02/17/21 09:00 02/22/21 06:44 Gabapentin (Neurontin) 300 mg QID PO 02/16/21 17:00 02/22/21 06:41 Hydroxyurea (Hydrea) 1,000 mg DAILY PO 02/17/21 09:00 02/22/21 07:15 Levetiracetam (Keppra) 250 mg BID PO 02/16/21 21:00 02/22/21 06:43 Lidocaine (Lidoderm) 1 patch DAILY TP 02/17/21 09:00 02/17/21 09:24 DC Al Hydroxide/Mg Hydroxide (Mylanta Plus Xs) 15 ml PRN AFTMEALHC PRN PO DYSPEPSIA 02/16/21 17:00 02/16/21 17:36 DC Mirabegron (Myrbetriq) 50 mg DAILY PO 02/17/21 09:00 02/22/21 06:42 Nystatin (Nystop) 1 debra BID TP 02/16/21 21:00 02/22/21 07:16 Pantoprazole Sodium (Protonix) 40 mg DAILYAC PO 02/17/21 07:30 02/22/21 06:43 Potassium Chloride (Klor-Con) 40 meq DAILY PO 02/17/21 09:00 02/22/21 06:43 Sulfasalazine (Azulfidine) 500 mg TID PO 02/16/21 21:00 02/22/21 06:42 Trazodone HCl (Desyrel) 50 mg QHS PO 02/16/21 21:00 02/21/21 21:02 Non-Formulary Medication (Albuterol Sulfate (Albuterol Sulfate Conc Neb Soln)) 1 vial PRN Q4HRS PRN NEB SHORTNESS OF BREATH 02/16/21 17:00 02/16/21 17:49 DC Ascorbic Acid (Vitamin C) 1,000 mg DAILY PO 02/17/21 09:00 02/22/21 06:43 Diltiazem HCl (Cardizem) 60 mg BID PO 02/16/21 21:00 02/22/21 06:41 Lactobacillus Rhamnosus (Culturelle) 1 cap DAILY PO 02/17/21 09:00 02/22/21 06:43 Amylase/Lipase/ Protease (Zenpep 10,000) 1 cap TIDBFRMEAL PO 02/17/21 07:30 02/22/21 06:43 Non-Formulary Medication (Magnesium Hydroxide (Milk Of Magnesia)) 2,400 mg PRN DAILY PRN PO CONSTIPATION 02/16/21 17:00 02/16/21 17:37 DC Magnesium Oxide (Magnesium Oxide) 400 mg DAILY PO 02/17/21 09:00 02/22/21 06:42 Non-Formulary Medication (Methyl Salicylate/ Menthol (Analgesic [place])) 1 debra PRN Q6HRS PRN TP MUSCLE PAIN 02/16/21 17:00 02/16/21 17:37 DC Non-Formulary Medication (Umeclidinium [place] (Incruse Ellipta)) 62.5 mcg DAILY IH 02/17/21 09:00 02/16/21 17:49 DC Non-Formulary Medication (Zinc Gluconate ) 50 mg DAILY PO 02/17/21 09:00 02/16/21 17:46 DC Albuterol/ Ipratropium (Duoneb) 3 ml RTQID NEB 02/16/21 20:00 02/17/21 19:52 DC Albuterol Sulfate (Ventolin) 2.5 mg PRN Q4HRS PRN NEB SHORTNESS OF BREATH 02/16/21 18:00 Influenza Virus Vaccine Quadrival (Flulaval Quad Syringe) 0.5 ml ONCE ONCE VAX IM 02/17/21 09:00 02/17/21 09:01 DC 02/17/21 09:21 Lidocaine (Lidoderm) 1 patch DAILY PRN TP pain 02/17/21 09:30 Albuterol/ Ipratropium (Combivent Respimat 20-100 Mcg) 1 puff RTQID INH 02/17/21 20:00 02/22/21 07:14 Sertraline HCl (Zoloft) 25 mg DAILY PO 02/22/21 09:00 02/24/21 10:00 02/22/21 07:16 Sertraline HCl (Zoloft) 50 mg DAILY PO 02/25/21 09:00 Current Medications Medications (Trade) Dose Ordered Sig/Mya Route PRN Reason Start Time Stop Time Status Last Admin Dose Admin Vitamin D (Vitamin D3) 50,000 unit WEEKLY PO 02/22/21 09:00 02/22/21 07:16 Sertraline HCl (Zoloft) 25 mg DAILY PO 02/22/21 09:00 02/24/21 10:00 02/22/21 07:16 I have reviewed the current psychotropics carefully including drug interactions. Risk benefit ratio favors no change other than as noted in my dictated progress note. Diagnosis: Problems: (1) Impulse control disorder, unspecified (2) Mild cognitive impairment (3) Anxiety disorder, unspecified (4) Major depressive disorder with psychotic features (5) Bipolar disorder, curr episode mixed, severe, with psychotic features (6) Bipolar affective, depress, sev w/ psych NITHIN STEVENS MD Feb 22, 2021 08:29
--- NOTE | 2021-02-22 08:43 | PDOC ---
Exam Note: Napoleon Note: This note is a late entry for 02/21/2021 covers elements not covered in my initial note. Subjective: The patient was seen individually in the evening of 02/21/2021 with Joshua BARR, discussed and reviewed the chart. The patient slept 9 hours previous night. Patient has been somewhat delusional, calling for her mother and father, putting herself on the floor. She is compliant with medications. She remains depressed and anxious. Review of Systems: Ambulation impaired in wheelchair. No CV, , pulmonary, eye system symptoms on review. Mental Status Exam: The patient is reasonably oriented. Speech coherent. Abstraction fair. Computation impaired. Language function intact. Mood and affect withdrawn. Laboratory Data: Reviewed. Impression: Bipolar 1 disorder, mixed with psychotic features. Anxiety disord er unspecified. Impulse control disorder unspecified. Mild cognitive impairment. Plan: Continue current psychotropics from initial note. Assessment: Vital Signs/I&O: Vital Signs Date Time Temp Pulse Resp B/P (MAP) Pulse Ox O2 Delivery O2 Flow Rate FiO2 02/22/21 06:41 87 115/70 02/22/21 05:46 98.3 18 91 2.0 02/19/21 21:00 Nasal Cannula I & O 02/21/21 02/21/21 02/22/21 15:00 23:00 07:00 Intake Total 600 ml 200 ml Balance 600 ml 200 ml Current Medications: Meds: Current Medications Medications (Trade) Dose Ordered Sig/Mya Route PRN Reason Start Time Stop Time Status Last Admin Dose Admin Acetaminophen (Tylenol) 650 mg PRN Q6HRS PRN PO MILD PAIN / TEMP > 100.3'F 02/16/21 15:45 02/18/21 06:31 Multi-Ingredient Ointment (Analgesic [place]) 1 debra PRN QID PRN TP MUSCLE PAIN 02/16/21 15:45 Al Hydroxide/Mg Hydroxide (Mylanta Plus Xs) 15 ml PRN AFTMEALHC PRN PO DYSPEPSIA 02/16/21 15:45 Magnesium Hydroxide (Milk Of Magnesia) 2,400 mg PRN QHS PRN PO 1ST CHOICE CONSTIPATION 02/16/21 15:45 Acetaminophen (Tylenol) 1,000 mg Q6HRS PRN PO pain or fever 02/16/21 17:00 02/16/21 17:35 DC Acetaminophen (Tylenol) 500 mg Q4HRS PRN PO MILD PAIN 1-3 02/16/21 17:00 02/16/21 17:36 DC Bisacodyl (Dulcolax Tab) 5 mg PRN DAILY PRN PO 2ND CHOICE CONSTIPATION 02/16/21 17:00 Vitamin D (Vitamin D3) 50,000 unit WEEKLY PO 02/22/21 09:00 02/22/21 07:16 Clonazepam (KlonoPIN) 0.5 mg BID PO 02/16/21 21:00 02/22/21 07:16 Dicyclomine HCl (Bentyl) 20 mg TID PO 02/16/21 21:00 02/22/21 06:43 Diphenoxylate HCl/ Atropine (Lomotil) 2 tab BID PO 02/16/21 21:00 02/22/21 06:40 Divalproex Sodium (Depakote Er) 1,000 mg HS PO 02/16/21 21:00 02/21/21 21:02 Duloxetine HCl (Cymbalta) 30 mg BID PO 02/16/21 21:00 02/22/21 06:41 Fluticasone Propionate (Flonase) 2 spray DAILY NS 02/17/21 09:00 02/22/21 07:14 Furosemide (Lasix) 20 mg DAILY PO 02/17/21 09:00 02/22/21 06:44 Gabapentin (Neurontin) 300 mg QID PO 02/16/21 17:00 02/22/21 06:41 Hydroxyurea (Hydrea) 1,000 mg DAILY PO 02/17/21 09:00 02/22/21 07:15 Levetiracetam (Keppra) 250 mg BID PO 02/16/21 21:00 02/22/21 06:43 Lidocaine (Lidoderm) 1 patch DAILY TP 02/17/21 09:00 02/17/21 09:24 DC Al Hydroxide/Mg Hydroxide (Mylanta Plus Xs) 15 ml PRN AFTMEALHC PRN PO DYSPEPSIA 02/16/21 17:00 02/16/21 17:36 DC Mirabegron (Myrbetriq) 50 mg DAILY PO 02/17/21 09:00 02/22/21 06:42 Nystatin (Nystop) 1 debra BID TP 02/16/21 21:00 02/22/21 07:16 Pantoprazole Sodium (Protonix) 40 mg DAILYAC PO 02/17/21 07:30 02/22/21 06:43 Potassium Chloride (Klor-Con) 40 meq DAILY PO 02/17/21 09:00 02/22/21 06:43 Sulfasalazine (Azulfidine) 500 mg TID PO 02/16/21 21:00 02/22/21 06:42 Trazodone HCl (Desyrel) 50 mg QHS PO 02/16/21 21:00 02/21/21 21:02 Non-Formulary Medication (Albuterol Sulfate (Albuterol Sulfate Conc Neb Soln)) 1 vial PRN Q4HRS PRN NEB SHORTNESS OF BREATH 02/16/21 17:00 02/16/21 17:49 DC Ascorbic Acid (Vitamin C) 1,000 mg DAILY PO 02/17/21 09:00 02/22/21 06:43 Diltiazem HCl (Cardizem) 60 mg BID PO 02/16/21 21:00 02/22/21 06:41 Lactobacillus Rhamnosus (Culturelle) 1 cap DAILY PO 02/17/21 09:00 02/22/21 06:43 Amylase/Lipase/ Protease (Zenpep 10,000) 1 cap TIDBFRMEAL PO 02/17/21 07:30 02/22/21 06:43 Non-Formulary Medication (Magnesium Hydroxide (Milk Of Magnesia)) 2,400 mg PRN DAILY PRN PO CONSTIPATION 02/16/21 17:00 02/16/21 17:37 DC Magnesium Oxide (Magnesium Oxide) 400 mg DAILY PO 02/17/21 09:00 02/22/21 06:42 Non-Formulary Medication (Methyl Salicylate/ Menthol (Analgesic [place])) 1 debra PRN Q6HRS PRN TP MUSCLE PAIN 02/16/21 17:00 02/16/21 17:37 DC Non-Formulary Medication (Umeclidinium [place] (Incruse Ellipta)) 62.5 mcg DAILY IH 02/17/21 09:00 02/16/21 17:49 DC Non-Formulary Medication (Zinc Gluconate ) 50 mg DAILY PO 02/17/21 09:00 02/16/21 17:46 DC Albuterol/ Ipratropium (Duoneb) 3 ml RTQID NEB 02/16/21 20:00 02/17/21 19:52 DC Albuterol Sulfate (Ventolin) 2.5 mg PRN Q4HRS PRN NEB SHORTNESS OF BREATH 02/16/21 18:00 Influenza Virus Vaccine Quadrival (Flulaval Quad Syringe) 0.5 ml ONCE ONCE VAX IM 02/17/21 09:00 02/17/21 09:01 DC 02/17/21 09:21 Lidocaine (Lidoderm) 1 patch DAILY PRN TP pain 02/17/21 09:30 Albuterol/ Ipratropium (Combivent Respimat 20-100 Mcg) 1 puff RTQID INH 02/17/21 20:00 02/22/21 07:14 Sertraline HCl (Zoloft) 25 mg DAILY PO 02/22/21 09:00 02/24/21 10:00 02/22/21 07:16 Sertraline HCl (Zoloft) 50 mg DAILY PO 02/25/21 09:00 Current Medications Medications (Trade) Dose Ordered Sig/Mya Route PRN Reason Start Time Stop Time Status Last Admin Dose Admin Vitamin D (Vitamin D3) 50,000 unit WEEKLY PO 02/22/21 09:00 02/22/21 07:16 Sertraline HCl (Zoloft) 25 mg DAILY PO 02/22/21 09:00 02/24/21 10:00 02/22/21 07:16 I have reviewed the current psychotropics carefully including drug interactions. Risk benefit ratio favors no change other than as noted in my dictated progress note. Diagnosis: Problems: (1) Impulse control disorder, unspecified (2) Mild cognitive impairment (3) Anxiety disorder, unspecified (4) Major depressive disorder with psychotic features (5) Bipolar affective, depress, sev w/ psych NITHIN STEVENS MD Feb 22, 2021 08:43
[2021-02-22 16:03] VITALS: BP 98/60
[2021-02-22] MEDS: traZODone 50 MG TABLET. PO SCH (21:24)
[2021-02-22] MEDS: DIVALPROEX ER 500 MG TAB.ER.24H PO SCH (21:24)
[2021-02-22 21:45] VITALS: BP 105/66
--- NOTE | 2021-02-22 23:08 | PDOC ---
Exam Note: Napoleon Note: This note covers elements not covered in my initial note. Subjective: The patient was seen individually in the evening of 02/22/2021 with Hadley BARR, discussed and reviewed the chart. The patient slept 8 hours previous night. Overall patient has done better. Last evening she was confused, stating she had to go and meet her mother, compliant with medications, very slow at taking her morning medications. Review of Systems: Ambulation impaired in wheelchair. No CV, , pulmonary, eye system symptoms on review. Mental Status Exam: The patient is oriented to herself and situation. Speech coherent has some latency. Abstraction fair. Computation impaired. Language function intact. Attention span short. Mood and affect improved. She is not putting herself on the floor. Laboratory Data: Reviewed. Impression: Bipolar 1 disorder, mixed with psychotic features. Anxiety disorder unspecified. Impulse control disorder unspecified. Mild cognitive impairment. Plan: Continue current psychotropics from initial note. Assessment: Vital Signs/I&O: Vital Signs Date Time Temp Pulse Resp B/P (MAP) Pulse Ox O2 Delivery O2 Flow Rate FiO2 02/22/21 21:48 84 105/66 02/22/21 21:45 96 Nasal Cannula 2.0 02/22/21 16:03 97.2 16 I & O 02/21/21 02/21/21 02/22/21 15:00 23:00 07:00 Intake Total 600 ml 200 ml Balance 600 ml 200 ml Current Medications: Meds: Current Medications Medications (Trade) Dose Ordered Sig/Mya Route PRN Reason Start Time Stop Time Status Last Admin Dose Admin Acetaminophen (Tylenol) 650 mg PRN Q6HRS PRN PO MILD PAIN / TEMP > 100.3'F 02/16/21 15:45 02/18/21 06:31 Multi-Ingredient Ointment (Analgesic [place]) 1 debra PRN QID PRN TP MUSCLE PAIN 02/16/21 15:45 Al Hydroxide/Mg Hydroxide (Mylanta Plus Xs) 15 ml PRN AFTMEALHC PRN PO DYSPEPSIA 02/16/21 15:45 Magnesium Hydroxide (Milk Of Magnesia) 2,400 mg PRN QHS PRN PO 1ST CHOICE CONSTIPATION 02/16/21 15:45 Acetaminophen (Tylenol) 1,000 mg Q6HRS PRN PO pain or fever 02/16/21 17:00 02/16/21 17:35 DC Acetaminophen (Tylenol) 500 mg Q4HRS PRN PO MILD PAIN 1-3 02/16/21 17:00 02/16/21 17:36 DC Bisacodyl (Dulcolax Tab) 5 mg PRN DAILY PRN PO 2ND CHOICE CONSTIPATION 02/16/21 17:00 Vitamin D (Vitamin D3) 50,000 unit WEEKLY PO 02/22/21 09:00 02/22/21 07:16 Clonazepam (KlonoPIN) 0.5 mg BID PO 02/16/21 21:00 02/22/21 21:27 Dicyclomine HCl (Bentyl) 20 mg TID PO 02/16/21 21:00 02/22/21 21:25 Diphenoxylate HCl/ Atropine (Lomotil) 2 tab BID PO 02/16/21 21:00 02/22/21 21:27 Divalproex Sodium (Depakote Er) 1,000 mg HS PO 02/16/21 21:00 02/22/21 21:24 Duloxetine HCl (Cymbalta) 30 mg BID PO 02/16/21 21:00 02/22/21 21:25 Fluticasone Propionate (Flonase) 2 spray DAILY NS 02/17/21 09:00 02/22/21 07:14 Furosemide (Lasix) 20 mg DAILY PO 02/17/21 09:00 02/22/21 06:44 Gabapentin (Neurontin) 300 mg QID PO 02/16/21 17:00 02/22/21 21:24 Hydroxyurea (Hydrea) 1,000 mg DAILY PO 02/17/21 09:00 02/22/21 07:15 Levetiracetam (Keppra) 250 mg BID PO 02/16/21 21:00 02/22/21 21:25 Lidocaine (Lidoderm) 1 patch DAILY TP 02/17/21 09:00 02/17/21 09:24 DC Al Hydroxide/Mg Hydroxide (Mylanta Plus Xs) 15 ml PRN AFTMEALHC PRN PO DYSPEPSIA 02/16/21 17:00 02/16/21 17:36 DC Mirabegron (Myrbetriq) 50 mg DAILY PO 02/17/21 09:00 02/22/21 06:42 Nystatin (Nystop) 1 debra BID TP 02/16/21 21:00 02/22/21 21:25 Pantoprazole Sodium (Protonix) 40 mg DAILYAC PO 02/17/21 07:30 02/22/21 06:43 Potassium Chloride (Klor-Con) 40 meq DAILY PO 02/17/21 09:00 02/22/21 06:43 Sulfasalazine (Azulfidine) 500 mg TID PO 02/16/21 21:00 02/22/21 21:27 Trazodone HCl (Desyrel) 50 mg QHS PO 02/16/21 21:00 02/22/21 21:24 Non-Formulary Medication (Albuterol Sulfate (Albuterol Sulfate Conc Neb Soln)) 1 vial PRN Q4HRS PRN NEB SHORTNESS OF BREATH 02/16/21 17:00 02/16/21 17:49 DC Ascorbic Acid (Vitamin C) 1,000 mg DAILY PO 02/17/21 09:00 02/22/21 06:43 Diltiazem HCl (Cardizem) 60 mg BID PO 02/16/21 21:00 02/22/21 06:41 Lactobacillus Rhamnosus (Culturelle) 1 cap DAILY PO 02/17/21 09:00 02/22/21 06:43 Amylase/Lipase/ Protease (Zenpep 10,000) 1 cap TIDBFRMEAL PO 02/17/21 07:30 02/22/21 16:45 Non-Formulary Medication (Magnesium Hydroxide (Milk Of Magnesia)) 2,400 mg PRN DAILY PRN PO CONSTIPATION 02/16/21 17:00 02/16/21 17:37 DC Magnesium Oxide (Magnesium Oxide) 400 mg DAILY PO 02/17/21 09:00 02/22/21 06:42 Non-Formulary Medication (Methyl Salicylate/ Menthol (Analgesic [place])) 1 debra PRN Q6HRS PRN TP MUSCLE PAIN 02/16/21 17:00 02/16/21 17:37 DC Non-Formulary Medication (Umeclidinium [place] (Incruse Ellipta)) 62.5 mcg DAILY IH 02/17/21 09:00 02/16/21 17:49 DC Non-Formulary Medication (Zinc Gluconate ) 50 mg DAILY PO 02/17/21 09:00 02/16/21 17:46 DC Albuterol/ Ipratropium (Duoneb) 3 ml RTQID NEB 02/16/21 20:00 02/17/21 19:52 DC Albuterol Sulfate (Ventolin) 2.5 mg PRN Q4HRS PRN NEB SHORTNESS OF BREATH 02/16/21 18:00 Influenza Virus Vaccine Quadrival (Flulaval Quad Syringe) 0.5 ml ONCE ONCE VAX IM 02/17/21 09:00 02/17/21 09:01 DC 02/17/21 09:21 Lidocaine (Lidoderm) 1 patch DAILY PRN TP pain 02/17/21 09:30 Albuterol/ Ipratropium (Combivent Respimat 20-100 Mcg) 1 puff RTQID INH 02/17/21 20:00 02/22/21 21:53 Sertraline HCl (Zoloft) 25 mg DAILY PO 02/22/21 09:00 02/24/21 10:00 02/22/21 07:16 Sertraline HCl (Zoloft) 50 mg DAILY PO 02/25/21 09:00 Current Medications Medications (Trade) Dose Ordered Sig/Mya Route PRN Reason Start Time Stop Time Status Last Admin Dose Admin Vitamin D (Vitamin D3) 50,000 unit WEEKLY PO 02/22/21 09:00 02/22/21 07:16 Sertraline HCl (Zoloft) 25 mg DAILY PO 02/22/21 09:00 02/24/21 10:00 02/22/21 07:16 I have reviewed the current psychotropics carefully including drug interactions. Risk benefit ratio favors no change other than as noted in my dictated progress note. Diagnosis: Problems: (1) Mild cognitive impairment (2) Impulse control disorder, unspecified (3) Bipolar disorder, curr episode mixed, severe, with psychotic features (4) Anxiety disorder, unspecified NITHIN STEVENS MD Feb 22, 2021 23:08
--- NOTE | 2021-02-23 01:02 | NUR ---
Patient compliant with medications taken whole followed by water. Patient does not help during transfers to her full ability, and acts helpless at times. Patient interactive with nurse during assessment tonight. Patient was wearing her O2 appropriately and denies stating that she wanted to prior to admission.
[2021-02-23 06:05] LABS: BASO % 1 % (0-3); EOS # 0.1 x10^3/uL (0.0-0.7); EOS % 5 % (0-3); HEMATOCRIT 30.1 % (36.0-47.0); HEMOGLOBIN 10.2 g/dL (12.0-15.5); LYMPH # 0.9 x10^3/uL (1.0-4.8); LYMPH % 30 % (24-48); MEAN CORPUSCULAR HEMOGLOBIN 36 pg (25-35); MEAN CORPUSCULAR HGB CONC 34 g/dL (31-37); MEAN CORPUSCULAR VOLUME 106 fL (79-100); MONO # 0.2 x10^3/uL (0.0-1.1); MONO % 8 % (0-9); NEUT # 1.6 x10^3uL (1.8-7.7); NEUT % 57 % (31-73); PLATELET COUNT 237 x10^3/uL (140-400); RED BLOOD COUNT 2.83 x10^6/uL (3.50-5.40); RED CELL DISTRIBUTION WIDTH 16.3 % (11.5-14.5); WHITE BLOOD COUNT 2.9 x10^3/uL (4.0-11.0)
[2021-02-23 06:23] LABS: ALBUMIN 2.3 g/dL (3.4-5.0); ALBUMIN/GLOBULIN RATIO 0.8 (1.0-1.7); CALCIUM 8.6 mg/dL (8.5-10.1); CREATININE 0.5 mg/dL (0.6-1.0); GFR 122.3; POTASSIUM 3.6 mmol/L (3.5-5.1); TOTAL BILIRUBIN 0.3 mg/dL (0.2-1.0); TOTAL PROTEIN 5.3 g/dL (6.4-8.2)
[2021-02-23 06:42] VITALS: BP 106/63
[2021-02-23] MEDS: HYDROXYUREA 500 MG CAPSULE PO SCH (08:47)
[2021-02-23] MEDS: LIPASE/PROTEAS/AMYLAS 10/32/42 CAPSULE.DR. PO SCH ×3 (08:49→16:44)
[2021-02-23] MEDS: MIRABEGRON 25 MG TAB.ER.24H PO SCH (08:49)
[2021-02-23] MEDS: DIPHENOXYLATE/ATROPINE TABLET. PO SCH ×2 (08:49→20:19)
[2021-02-23] MEDS: POTASSIUM CHLORIDE 20 MEQ TABLET.ER. PO SCH (08:49)
[2021-02-23] MEDS: PANTOPRAZOLE 40 MG TABLET. PO SCH (08:49)
[2021-02-23] MEDS: sulfaSALAzine 500 MG TABLET PO SCH ×3 (08:49→21:48)
[2021-02-23] MEDS: clonazePAM 0.5 MG TABLET PO SCH ×2 (08:49→20:19)
[2021-02-23] MEDS: dilTIAZem HCL 30 MG TABLET PO SCH ×2 (08:50→20:20)
[2021-02-23] MEDS: DICYCLOMINE HCL 20 MG TABLET PO SCH ×3 (08:50→20:19)
[2021-02-23] MEDS: SERTRALINE 25 MG TABLET. PO SCH (08:50)
[2021-02-23] MEDS: levETIRAcetam 250 MG TABLET PO SCH ×2 (08:50→20:20)
[2021-02-23] MEDS: GABAPENTIN 300 MG CAPSULE. PO SCH ×4 (08:50→20:19)
[2021-02-23] MEDS: MAGNESIUM OXIDE 400 MG TABLET PO SCH (08:50)
[2021-02-23] MEDS: LACTOBACILLUS RHAMNOSUS GG 1 CAPSULE. PO SCH (08:50)
[2021-02-23] MEDS: ASCORBIC ACID 1,000 MG TABLET PO SCH (08:51)
[2021-02-23] MEDS: DULoxetine HCL 30 MG CAPSULE.DR PO SCH ×2 (08:51→20:20)
[2021-02-23] MEDS: FLUTICASONE 50MCG/NASAL SPRAY 16GM BOTTLE. NS SCH (08:51)
[2021-02-23] MEDS: NYSTATIN TOPICAL POWDER 15GM BOTTLE. TP SCH ×2 (08:51→20:21)
[2021-02-23] MEDS: FUROSEMIDE 20 MG TABLET PO SCH (08:51)
[2021-02-23] MEDS: IPRATROPIUM/ALBUTEROL 20/100mcg/INH INHALER. INH SCH ×4 (08:51→20:30)
--- NOTE | 2021-02-23 11:14 | NUR ---
WEEKLY ACTIVITY THERAPY NOTE Date of Admission:02/16/21 Date of AT Assessment: 02/17 Precipitating behaviors that initiated intake and admission:putting self on floor, combative towards staff, refusing O2, threw medications, expresses she wants to & removes O2 Goal aimed: increase socialization and engagement Initial Goal: Pt will participate in at least three individual or group Activity Therapy sessions per week Weekly progress towards goal: did not achieve, 05/13 Group participation level: 1 min Weekly highlights: watched tv in day room Saturday, moving to group therapy side 02/23 Behaviors observed: calm and pleasant, needs reminders to sit back in her wheelchair Plan: no change to goal, move to group therapy side 02/23 Beneficial adaptations: redirection
--- NOTE | 2021-02-23 11:18 | NUR ---
Treatment team update: Pt is eating 75% of meals and sleeping on average 5.25 hours per night. Pt has a flat affect, acts helpless although she has shown on numerous occasions that she is more than capable of completing tasks. Pt is not putting herself on the floor as much; however, tends to be withdrawn to herself but is more compliant with all cares and staff direction. Pt is able to discharge back to [facility] in the beginning of next week. SW to coordinate all discharge plans with pt son and the facility.
--- NOTE | 2021-02-23 11:30 | TX PLAN ---
Interdisciplinary Tx Plan Admission Information Feb 16, 2021 at 15:29 Legal Status (on Admission): Voluntary DPOA/Guardian Name: Patle Moise Contact Other Contact Name: Chasity Nazario Other Contact Verified Code Status: DNR Allergies: Coded Allergies: butorphanol (Verified Allergy, Unknown, 02/13/20) cefoxitin (Verified Allergy, Unknown, 02/13/20) codeine (Verified Allergy, Unknown, 02/13/20) gluten (Verified Allergy, Unknown, 02/13/20) lactose (Verified Allergy, Unknown, 02/13/20) Diagnoses Primary Diagnosis: Bipolar D/O mixed Reasons for Admission: Suicidal ideation, Poor impulse control Problem in Patient's Words: N/A Additional Admission Comments: According to the intake, pt is putting herself on the floor, combative towards staff, refusing oxygen/removes the tubing, throwing medications, expressed that she wants to . Problems Active Problems: putting self on floor removing oxygen Inactive Problems: medication compliant Pt Strengths/Limitations Ability for [place]: Poor Cognitive Functioning/Ability: Fair Communication Skills/Ability: Fair Financial Resources: Fair Insight/Judgement: Poor Intellectual Ability: Fair Physical Health: Poor Social Skills: Poor Stability in Family: Poor Stability in School/Work: Poor Verbal Skills: Fair Discharge Criteria Discharge Criteria: Able meet basic life need, Adequate arrangements @DC, Improved behavior, Improved mood/thought Preliminary Discharge Plan Preliminary DC Plan: Current Living Arrange. Special Precautions Fall Risk: Moderate Initial D/C Plan Pt will return to [facility] once stable Identified Discharge Needs: None noted Currently Utilized Resources Currently Utilized Resources/P: Primary Care Physician Telehealth for psychiatry Referrals Community Resources: None Identified Problems/Hx/Goals Objectives/Short-Term Goals Short Term Goals: Dec. Outbursts, Medication Stabilization, Monitor Med Effects, Promote Coping Skill Short Term Goals in Patient's: N/A Interventions/Frequency Staff Interventions/Frequency&: Psychiatrist to assess pt at least 3x per week for medication management. Social Work to assess pt least 2x per week to identify barriers to care and discharge planning goals. Nursing to assess pt medication effect, behavior modification and complete 15 minute checks daily. Encourage participation in group activities (if applicable) or 1:1 engagement based off Activity Dept goals. 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 Education: Pt graduated high school in 1969 Community Follow-up Primary Care Physician Telehealth Treatment Plan Explained Patient/Material Control Manager had this treatment plan explained to him/her as indicated by the signature below and has been given the opportunity to ask questions and make suggestions: Date: Patient/Material Control Manager Signature: Status Update Update Pt is eating 75% of meals and sleeping on average 5.25 hours per night. Pt has a flat affect, acts helpless although she has shown on numerous occasions that she is more than capable of completing tasks. Pt is not putting herself on the floor as much; however, tends to be withdrawn to herself but is more compliant with all cares and staff direction. Pt is able to discharge back to [facility] in the beginning of next week. SW to coordinate all discharge plans with pt son and the facility. [place] BAUTISTA Feb 23, 2021 11:30
[2021-02-23 15:48] VITALS: BP 103/70
--- NOTE | 2021-02-23 17:44 | NUR ---
Patient has been calm, confused, and pleasant throughout the majority of this shift. She was more anxious in the afternoon and put herself on the floor by slipping out of her wheelchair. In doing so, she opened up an old skin tear on her left elbow. Skin tear cleaned and dressed with petroleum gauze and telfa pad. Patient compliant with medications throughout this shift. Will continue to monitor and report to oncoming staff
[2021-02-23] MEDS: DIVALPROEX ER 500 MG TAB.ER.24H PO SCH (20:19)
[2021-02-23] MEDS: traZODone 50 MG TABLET. PO SCH (20:20)
--- NOTE | 2021-02-23 21:57 | PDOC ---
Exam Note: Napoleon Note: Please also refer to the separate dictated note~for this date of service dictated separately.~Patient seen individually. Discussed the patient with Nursing staff reviewed the chart.~Reviewed interim history and current functioning. Reviewed vital signs,~Labs/ Radiology~and current medications noted below. Continue current treatment with the changes noted in the dictated addendum note Assessment: Vital Signs/I&O: Vital Signs Date Time Temp Pulse Resp B/P (MAP) Pulse Ox O2 Delivery O2 Flow Rate FiO2 02/23/21 20:20 86 103/70 02/23/21 15:48 98.8 20 92 2.0 02/23/21 06:42 Nasal Cannula I & O 0 02/22/21 02/22/21 02/23/21 15:00 23:00 07:00 Intake Total 960 ml 240 ml Balance 960 ml 240 ml Labs: Laboratory Tests Test 02/23/21 06:00 White Blood Count 2.9 x10^3/uL (4.0-11.0) L Red Blood Count 2.83 x10^6/uL (3.50-5.40) L Hemoglobin 10.2 g/dL (12.0-15.5) L Hematocrit 30.1 % (36.0-47.0) L Mean Corpuscular Volume 106 fL (79-100) H Mean Corpuscular Hemoglobin 36 pg (25-35) H Mean Corpuscular Hemoglobin Concent 34 g/dL (31-37) Red Cell Distribution Width 16.3 % (11.5-14.5) H Platelet Count 237 x10^3/uL (140-400) Neutrophils (%) (Auto) 57 % (31-73) Lymphocytes (%) (Auto) 30 % (24-48) Monocytes (%) (Auto) 8 % (0-9) Eosinophils (%) (Auto) 5 % (0-3) H Basophils (%) (Auto) 1 % (0-3) Neutrophils # (Auto) 1.6 x10^3uL (1.8-7.7) L Lymphocytes # (Auto) 0.9 x10^3/uL (1.0-4.8) L Monocytes # (Auto) 0.2 x10^3/uL (0.0-1.1) Eosinophils # (Auto) 0.1 x10^3/uL (0.0-0.7) Basophils # (Auto) 0.0 x10^3/uL (0.0-0.2) Sodium Level 140 mmol/L (136-145) Potassium Level 3.6 mmol/L (3.5-5.1) Chloride Level 101 mmol/L (98-107) Carbon Dioxide Level 36 mmol/L (21-32) H Anion Gap 3 (6-14) L Blood Urea Nitrogen 9 mg/dL (7-20) Creatinine 0.5 mg/dL (0.6-1.0) L Estimated GFR (Cockcroft-Gault) 122.3 BUN/Creatinine Ratio 18 (6-20) Glucose Level 85 mg/dL (70-99) Calcium Level 8.6 mg/dL (8.5-10.1) Total Bilirubin 0.3 mg/dL (0.2-1.0) Aspartate Amino Transferase (AST) 11 U/L (15-37) L Alanine Aminotransferase (ALT) 9 U/L (14-59) L Alkaline Phosphatase 67 U/L (46-116) Total Protein 5.3 g/dL (6.4-8.2) L Albumin 2.3 g/dL (3.4-5.0) L Albumin/Globulin Ratio 0.8 (1.0-1.7) L Current Medications: Meds: Laboratory Tests Test 02/23/21 06:00 White Blood Count 2.9 x10^3/uL Red Blood Count 2.83 x10^6/uL Hemoglobin 10.2 g/dL Hematocrit 30.1 % Mean Corpuscular Volume 106 fL Mean Corpuscular Hemoglobin 36 pg Mean Corpuscular Hemoglobin Concent 34 g/dL Red Cell Distribution Width 16.3 % Platelet Count 237 x10^3/uL Neutrophils (%) (Auto) 57 % Lymphocytes (%) (Auto) 30 % Monocytes (%) (Auto) 8 % Eosinophils (%) (Auto) 5 % Basophils (%) (Auto) 1 % Neutrophils # (Auto) 1.6 x10^3uL Lymphocytes # (Auto) 0.9 x10^3/uL Monocytes # (Auto) 0.2 x10^3/uL Eosinophils # (Auto) 0.1 x10^3/uL Basophils # (Auto) 0.0 x10^3/uL Sodium Level 140 mmol/L Potassium Level 3.6 mmol/L Chloride Level 101 mmol/L Carbon Dioxide Level 36 mmol/L Anion Gap 3 Blood Urea Nitrogen 9 mg/dL Creatinine 0.5 mg/dL Estimated GFR (Cockcroft-Gault) 122.3 BUN/Creatinine Ratio 18 Glucose Level 85 mg/dL Calcium Level 8.6 mg/dL Total Bilirubin 0.3 mg/dL Aspartate Amino Transf (AST/SGOT) 11 U/L Alanine Aminotransferase (ALT/SGPT) 9 U/L Alkaline Phosphatase 67 U/L Total Protein 5.3 g/dL Albumin 2.3 g/dL Albumin/Globulin Ratio 0.8 Current Medications Medications (Trade) Dose Ordered Sig/Mya Route PRN Reason Start Time Stop Time Status Last Admin Dose Admin Acetaminophen (Tylenol) 650 mg PRN Q6HRS PRN PO MILD PAIN / TEMP > 100.3'F 02/16/21 15:45 02/18/21 06:31 Multi-Ingredient Ointment (Analgesic Van) 1 debra PRN QID PRN TP MUSCLE PAIN 02/16/21 15:45 Al Hydroxide/Mg Hydroxide (Mylanta Plus Xs) 15 ml PRN AFTMEALHC PRN PO DYSPEPSIA 02/16/21 15:45 Magnesium Hydroxide (Milk Of Magnesia) 2,400 mg PRN QHS PRN PO 1ST CHOICE CONSTIPATION 02/16/21 15:45 Acetaminophen (Tylenol) 1,000 mg Q6HRS PRN PO pain or fever 02/16/21 17:00 02/16/21 17:35 DC Acetaminophen (Tylenol) 500 mg Q4HRS PRN PO MILD PAIN 1-3 02/16/21 17:00 02/16/21 17:36 DC Bisacodyl (Dulcolax Tab) 5 mg PRN DAILY PRN PO 2ND CHOICE CONSTIPATION 02/16/21 17:00 Vitamin D (Vitamin D3) 50,000 unit WEEKLY PO 02/22/21 09:00 02/22/21 07:16 Clonazepam (KlonoPIN) 0.5 mg BID PO 02/16/21 21:00 02/23/21 20:19 Dicyclomine HCl (Bentyl) 20 mg TID PO 02/16/21 21:00 02/23/21 20:19 Diphenoxylate HCl/ Atropine (Lomotil) 2 tab BID PO 02/16/21 21:00 02/23/21 20:19 Divalproex Sodium (Depakote Er) 1,000 mg HS PO 02/16/21 21:00 02/23/21 20:19 Duloxetine HCl (Cymbalta) 30 mg BID PO 02/16/21 21:00 02/23/21 20:20 Fluticasone Propionate (Flonase) 2 spray DAILY NS 02/17/21 09:00 02/23/21 08:51 Furosemide (Lasix) 20 mg DAILY PO 02/17/21 09:00 02/23/21 08:51 Gabapentin (Neurontin) 300 mg QID PO 02/16/21 17:00 02/23/21 20:19 Hydroxyurea (Hydrea) 1,000 mg DAILY PO 02/17/21 09:00 02/23/21 08:47 Levetiracetam (Keppra) 250 mg BID PO 02/16/21 21:00 02/23/21 20:20 Lidocaine (Lidoderm) 1 patch DAILY TP 02/17/21 09:00 02/17/21 09:24 DC Al Hydroxide/Mg Hydroxide (Mylanta Plus Xs) 15 ml PRN AFTMEALHC PRN PO DYSPEPSIA 02/16/21 17:00 02/16/21 17:36 DC Mirabegron (Myrbetriq) 50 mg DAILY PO 02/17/21 09:00 02/23/21 08:49 Nystatin (Nystop) 1 debra BID TP 02/16/21 21:00 02/23/21 20:21 Pantoprazole Sodium (Protonix) 40 mg DAILYAC PO 02/17/21 07:30 02/23/21 08:49 Potassium Chloride (Klor-Con) 40 meq DAILY PO 02/17/21 09:00 02/23/21 08:49 Sulfasalazine (Azulfidine) 500 mg TID PO 02/16/21 21:00 02/23/21 21:48 Trazodone HCl (Desyrel) 50 mg QHS PO 02/16/21 21:00 02/23/21 20:20 Non-Formulary Medication (Albuterol Sulfate (Albuterol Sulfate Conc Neb Soln)) 1 vial PRN Q4HRS PRN NEB SHORTNESS OF BREATH 02/16/21 17:00 02/16/21 17:49 DC Ascorbic Acid (Vitamin C) 1,000 mg DAILY PO 02/17/21 09:00 02/23/21 08:51 Diltiazem HCl (Cardizem) 60 mg BID PO 02/16/21 21:00 02/23/21 20:20 Lactobacillus Rhamnosus (Culturelle) 1 cap DAILY PO 02/17/21 09:00 02/23/21 08:50 Amylase/Lipase/ Protease (Zenpep 10,000) 1 cap TIDBFRMEAL PO 02/17/21 07:30 02/23/21 16:44 Non-Formulary Medication (Magnesium Hydroxide (Milk Of Magnesia)) 2,400 mg PRN DAILY PRN PO CONSTIPATION 02/16/21 17:00 02/16/21 17:37 DC Magnesium Oxide (Magnesium Oxide) 400 mg DAILY PO 02/17/21 09:00 02/23/21 08:50 Non-Formulary Medication (Methyl Salicylate/ Menthol (Analgesic Van)) 1 debra PRN Q6HRS PRN TP MUSCLE PAIN 02/16/21 17:00 02/16/21 17:37 DC Non-Formulary Medication (Umeclidinium [place] (Incruse Ellipta)) 62.5 mcg DAILY IH 02/17/21 09:00 02/16/21 17:49 DC Non-Formulary Medication (Zinc Gluconate ) 50 mg DAILY PO 02/17/21 09:00 02/16/21 17:46 DC Albuterol/ Ipratropium (Duoneb) 3 ml RTQID NEB 02/16/21 20:00 02/17/21 19:52 DC Albuterol Sulfate (Ventolin) 2.5 mg PRN Q4HRS PRN NEB SHORTNESS OF BREATH 02/16/21 18:00 Influenza Virus Vaccine Quadrival (Flulaval Quad [id number] Syringe) 0.5 ml ONCE ONCE VAX IM 02/17/21 09:00 02/17/21 09:01 DC 02/17/21 09:21 Lidocaine (Lidoderm) 1 patch DAILY PRN TP pain 02/17/21 09:30 Albuterol/ Ipratropium (Combivent Respimat 20-100 Mcg) 1 puff RTQID INH 02/17/21 20:00 02/23/21 20:30 Sertraline HCl (Zoloft) 25 mg DAILY PO 02/22/21 09:00 02/24/21 10:00 02/23/21 08:50 Sertraline HCl (Zoloft) 50 mg DAILY PO 02/25/21 09:00 I have reviewed the current psychotropics carefully including drug interactions. Risk benefit ratio favors no change other than as noted in my dictated progress note. Diagnosis: Problems: (1) Impulse control disorder, unspecified (2) Mild cognitive impairment (3) Anxiety disorder, unspecified (4) Bipolar disorder, curr episode mixed, severe, with psychotic features NITHIN STEVENS MD Feb 23, 2021 21:57
--- NOTE | 2021-02-23 23:22 | NUR ---
Nursing Note The patient was located in the hallway and in her room during interactions with this nurse. The patient was very agitated and angry during the first attempt by this nurse to assess the patient. The patient was pleasant during interactions later in the shift. The patient took her medication whole. The patient is currently sleeping in her room.
[2021-02-24 05:55] VITALS: BP 117/74
[2021-02-24] MEDS: IPRATROPIUM/ALBUTEROL 20/100mcg/INH INHALER. INH SCH ×4 (08:00→20:14)
[2021-02-24] MEDS: NYSTATIN TOPICAL POWDER 15GM BOTTLE. TP SCH ×2 (09:00→22:34)
[2021-02-24] MEDS: FLUTICASONE 50MCG/NASAL SPRAY 16GM BOTTLE. NS SCH (09:00)
[2021-02-24] MEDS: FUROSEMIDE 20 MG TABLET PO SCH (09:55)
[2021-02-24] MEDS: HYDROXYUREA 500 MG CAPSULE PO SCH (09:57)
[2021-02-24] MEDS: ASCORBIC ACID 1,000 MG TABLET PO SCH (09:57)
[2021-02-24] MEDS: PANTOPRAZOLE 40 MG TABLET. PO SCH (09:58)
[2021-02-24] MEDS: DIPHENOXYLATE/ATROPINE TABLET. PO SCH ×2 (09:58→20:14)
[2021-02-24] MEDS: DICYCLOMINE HCL 20 MG TABLET PO SCH ×3 (09:58→20:06)
[2021-02-24] MEDS: dilTIAZem HCL 30 MG TABLET PO SCH ×2 (09:58→20:07)
[2021-02-24] MEDS: MIRABEGRON 25 MG TAB.ER.24H PO SCH (09:58)
[2021-02-24] MEDS: LIPASE/PROTEAS/AMYLAS 10/32/42 CAPSULE.DR. PO SCH ×3 (09:58→17:15)
[2021-02-24] MEDS: MAGNESIUM OXIDE 400 MG TABLET PO SCH (09:58)
[2021-02-24] MEDS: sulfaSALAzine 500 MG TABLET PO SCH ×3 (09:58→22:34)
[2021-02-24] MEDS: levETIRAcetam 250 MG TABLET PO SCH ×2 (09:58→20:06)
[2021-02-24] MEDS: clonazePAM 0.5 MG TABLET PO SCH ×2 (09:58→20:14)
[2021-02-24] MEDS: POTASSIUM CHLORIDE 20 MEQ TABLET.ER. PO SCH (09:59)
[2021-02-24] MEDS: DULoxetine HCL 30 MG CAPSULE.DR PO SCH ×2 (09:59→20:06)
[2021-02-24] MEDS: SERTRALINE 25 MG TABLET. PO SCH (09:59)
[2021-02-24] MEDS: GABAPENTIN 300 MG CAPSULE. PO SCH ×4 (09:59→20:14)
[2021-02-24] MEDS: LACTOBACILLUS RHAMNOSUS GG 1 CAPSULE. PO SCH (09:59)
--- NOTE | 2021-02-24 10:09 | NUR ---
Pt slept in a little bit then woke up later in the early part of the morning for breakfast. She has displayed moments of helplessness. She was non-compliant with assisting with transfers, refusing to assist to her known ability. She required a 2:1 transfer onto the toilet (d/t refusing) and then after toileting she refused to transfer back into her w/c (claiming she was not done voiding). Pt given additional time on toilet per her request. She is A&O to name and only. She denies SI/HI/VH/AH when asked and has been absent of making statements that do not appear to be based in reality. She c/o of pain in her tailbone r/t an old injury she has sustained to it. She is observed to be not sitting upright in w/c d/t this complaint and is in more of a "sliding out" position. Staff assisted her in sitting more upright in w/c for safety. She is compliant with whole medications with verbal encouragement. During morning medication administration pt was observed to back her w/c slightly away from the table and then struggle to reach the cup of meds which were placed on the table....which then required staff to push her back up to the table. Supplemental O2 remains in place, running at 2LPN via NC. Pt's O2 sats have remained above 90% so far this shift. Plan of care continues, will pass to next shift.
[2021-02-24 15:30] VITALS: BP 121/67
[2021-02-24] MEDS: traZODone 50 MG TABLET. PO SCH (20:06)
[2021-02-24] MEDS: DIVALPROEX ER 500 MG TAB.ER.24H PO SCH (20:07)
--- NOTE | 2021-02-24 23:56 | NUR ---
Nursing Note The patient was located in her room for her assessment and medication pass. The patient was pleasant but restless and on several occasions attempted to exit bed without assistance. The patient was redirectable and is currently sleeping in bed. The patient took her medication whole.
--- NOTE | 2021-02-25 05:22 | PN ---
DATE: 02/23/2021 This is a late entry, 02/23/2021, covers the elements not covered in my initial note SUBJECTIVE: I met the patient in the evening of 02/23/2021 and staffed at treatment team meeting with entire team in the morning and CORTNEY Butcher. The patient's appetite is 75%. She is not putting herself on the floor. Slept 6-1/2 hours previous night. REVIEW OF SYSTEMS: Ambulation impaired, in wheelchair. No CV, , pulmonary, eye, ENT system symptoms on review. MENTAL STATUS EXAMINATION: Oriented to herself, situation. Speech has some latency coherent. Abstraction fair. Computation impaired. Language function intact. Mood and affect somewhat withdrawn, but improved. Labs reviewed. IMPRESSION: Bipolar 1 disorder, depressed, in partial remission; anxiety disorder, unspecified, personality disorder, unspecified. PLAN: Continue current psychotropics mentioned in my initial note. Adjust further as clinically indicated. UMA DR: Hank TID: [id number]
[2021-02-25 06:14] VITALS: BP 94/60
[2021-02-25] MEDS: PANTOPRAZOLE 40 MG TABLET. PO SCH (07:30)
[2021-02-25] MEDS: LIPASE/PROTEAS/AMYLAS 10/32/42 CAPSULE.DR. PO SCH ×3 (07:30→16:30)
[2021-02-25] MEDS: IPRATROPIUM/ALBUTEROL 20/100mcg/INH INHALER. INH SCH ×4 (08:00→20:30)
--- NOTE | 2021-02-25 08:37 | PDOC ---
Exam Note: Napoleon Note: Late entry for . Please also refer to the separate dictated note~for this date of service dictated separately.~Patient seen individually. Discussed the patient with Nursing staff reviewed the chart.~Reviewed interim history and current functioning. Reviewed vital signs,~Labs/ Radiology~and current medica tions noted below. Continue current treatment with the changes noted in the dictated addendum note Assessment: Vital Signs/I&O: Vital Signs Date Time Temp Pulse Resp B/P (MAP) Pulse Ox O2 Delivery O2 Flow Rate FiO2 02/25/21 06:14 98.0 93 20 94/60 (71) 91 Nasal Cannula 2.5 I & O 02/24/21 02/24/21 02/25/21 15:00 23:00 07:00 Intake Total 120 ml 720 ml Balance 120 ml 720 ml Current Medications: Meds: Current Medications Medications (Trade) Dose Ordered Sig/Mya Route PRN Reason Start Time Stop Time Status Last Admin Dose Admin Acetaminophen (Tylenol) 650 mg PRN Q6HRS PRN PO MILD PAIN / TEMP > 100.3'F 02/16/21 15:45 02/18/21 06:31 Multi-Ingredient Ointment (Analgesic [place]) 1 debra PRN QID PRN TP MUSCLE PAIN 02/16/21 15:45 Al Hydroxide/Mg Hydroxide (Mylanta Plus Xs) 15 ml PRN AFTMEALHC PRN PO DYSPEPSIA 02/16/21 15:45 Magnesium Hydroxide (Milk Of Magnesia) 2,400 mg PRN QHS PRN PO 1ST CHOICE CONSTIPATION 02/16/21 15:45 Acetaminophen (Tylenol) 1,000 mg Q6HRS PRN PO pain or fever 02/16/21 17:00 02/16/21 17:35 DC Acetaminophen (Tylenol) 500 mg Q4HRS PRN PO MILD PAIN 1-3 02/16/21 17:00 02/16/21 17:36 DC Bisacodyl (Dulcolax Tab) 5 mg PRN DAILY PRN PO 2ND CHOICE CONSTIPATION 02/16/21 17:00 Vitamin D (Vitamin D3) 50,000 unit WEEKLY PO 02/22/21 09:00 02/22/21 07:16 Clonazepam (KlonoPIN) 0.5 mg BID PO 02/16/21 21:00 02/24/21 20:14 Dicyclomine HCl (Bentyl) 20 mg TID PO 02/16/21 21:00 02/24/21 20:06 Diphenoxylate HCl/ Atropine (Lomotil) 2 tab BID PO 02/16/21 21:00 02/24/21 20:14 Divalproex Sodium (Depakote Er) 1,000 mg HS PO 02/16/21 21:00 02/24/21 20:07 Duloxetine HCl (Cymbalta) 30 mg BID PO 02/16/21 21:00 02/24/21 20:06 Fluticasone Propionate (Flonase) 2 spray DAILY NS 02/17/21 09:00 02/24/21 09:00 Furosemide (Lasix) 20 mg DAILY PO 02/17/21 09:00 02/24/21 09:55 Gabapentin (Neurontin) 300 mg QID PO 02/16/21 17:00 02/24/21 20:14 Hydroxyurea (Hydrea) 1,000 mg DAILY PO 02/17/21 09:00 02/24/21 09:57 Levetiracetam (Keppra) 250 mg BID PO 02/16/21 21:00 02/24/21 20:06 Lidocaine (Lidoderm) 1 patch DAILY TP 02/17/21 09:00 02/17/21 09:24 DC Al Hydroxide/Mg Hydroxide (Mylanta Plus Xs) 15 ml PRN AFTMEALHC PRN PO DYSPEPSIA 02/16/21 17:00 02/16/21 17:36 DC Mirabegron (Myrbetriq) 50 mg DAILY PO 02/17/21 09:00 02/24/21 09:58 Nystatin (Nystop) 1 debra BID TP 02/16/21 21:00 02/24/21 22:34 Pantoprazole Sodium (Protonix) 40 mg DAILYAC PO 02/17/21 07:30 02/24/21 09:58 Potassium Chloride (Klor-Con) 40 meq DAILY PO 02/17/21 09:00 02/24/21 09:59 Sulfasalazine (Azulfidine) 500 mg TID PO 02/16/21 21:00 02/24/21 22:34 Trazodone HCl (Desyrel) 50 mg QHS PO 02/16/21 21:00 02/24/21 20:06 Non-Formulary Medication (Albuterol Sulfate (Albuterol Sulfate Conc Neb Soln)) 1 vial PRN Q4HRS PRN NEB SHORTNESS OF BREATH 02/16/21 17:00 02/16/21 17:49 DC Ascorbic Acid (Vitamin C) 1,000 mg DAILY PO 02/17/21 09:00 02/24/21 09:57 Diltiazem HCl (Cardizem) 60 mg BID PO 02/16/21 21:00 02/24/21 20:07 Lactobacillus Rhamnosus (Culturelle) 1 cap DAILY PO 02/17/21 09:00 02/24/21 09:59 Amylase/Lipase/ Protease (Zenpep 10,000) 1 cap TIDBFRMEAL PO 02/17/21 07:30 02/24/21 17:15 Non-Formulary Medication (Magnesium Hydroxide (Milk Of Magnesia)) 2,400 mg PRN DAILY PRN PO CONSTIPATION 02/16/21 17:00 02/16/21 17:37 DC Magnesium Oxide (Magnesium Oxide) 400 mg DAILY PO 02/17/21 09:00 02/24/21 09:58 Non-Formulary Medication (Methyl Salicylate/ Menthol (Analgesic [place])) 1 debra PRN Q6HRS PRN TP MUSCLE PAIN 02/16/21 17:00 02/16/21 17:37 DC Non-Formulary Medication (Umeclidinium [place] (Incruse Ellipta)) 62.5 mcg DAILY IH 02/17/21 09:00 02/16/21 17:49 DC Non-Formulary Medication (Zinc Gluconate ) 50 mg DAILY PO 02/17/21 09:00 02/16/21 17:46 DC Albuterol/ Ipratropium (Duoneb) 3 ml RTQID NEB 02/16/21 20:00 02/17/21 19:52 DC Albuterol Sulfate (Ventolin) 2.5 mg PRN Q4HRS PRN NEB SHORTNESS OF BREATH 02/16/21 18:00 Influenza Virus Vaccine Quadrival (Flulaval Quad [id number] Syringe) 0.5 ml ONCE ONCE VAX IM 02/17/21 09:00 02/17/21 09:01 DC 02/17/21 09:21 Lidocaine (Lidoderm) 1 patch DAILY PRN TP pain 02/17/21 09:30 Albuterol/ Ipratropium (Combivent Respimat 20-100 Mcg) 1 puff RTQID INH 02/17/21 20:00 02/24/21 20:14 Sertraline HCl (Zoloft) 25 mg DAILY PO 02/22/21 09:00 02/24/21 10:00 DC 02/24/21 09:59 Sertraline HCl (Zoloft) 50 mg DAILY PO 02/25/21 09:00 I have reviewed the current psychotropics carefully including drug interactions. Risk benefit ratio favors no change other than as noted in my dictated progress note. Diagnosis: Problems: (1) Impulse control disorder, unspecified (2) Mild cognitive impairment (3) Anxiety disorder, unspecified (4) Bipolar disorder, curr episode mixed, severe, with psychotic features (5) Bipolar affective, depress, sev w/ psych NITHIN STEVENS MD Feb 25, 2021 08:37
[2021-02-25] MEDS: ASCORBIC ACID 1,000 MG TABLET PO SCH (09:00)
[2021-02-25] MEDS: HYDROXYUREA 500 MG CAPSULE PO SCH (09:00)
[2021-02-25] MEDS: MAGNESIUM OXIDE 400 MG TABLET PO SCH (09:00)
[2021-02-25] MEDS: LACTOBACILLUS RHAMNOSUS GG 1 CAPSULE. PO SCH (09:00)
[2021-02-25] MEDS: NYSTATIN TOPICAL POWDER 15GM BOTTLE. TP SCH ×2 (09:00→20:34)
[2021-02-25] MEDS: GABAPENTIN 300 MG CAPSULE. PO SCH ×4 (09:00→20:31)
[2021-02-25] MEDS: FLUTICASONE 50MCG/NASAL SPRAY 16GM BOTTLE. NS SCH (09:00)
[2021-02-25] MEDS: DULoxetine HCL 30 MG CAPSULE.DR PO SCH ×2 (11:23→20:33)
[2021-02-25] MEDS: DICYCLOMINE HCL 20 MG TABLET PO SCH ×3 (11:23→20:32)
[2021-02-25] MEDS: POTASSIUM CHLORIDE 20 MEQ TABLET.ER. PO SCH (11:23)
[2021-02-25] MEDS: dilTIAZem HCL 30 MG TABLET PO SCH ×2 (11:24→20:32)
[2021-02-25] MEDS: FUROSEMIDE 20 MG TABLET PO SCH (11:24)
[2021-02-25] MEDS: levETIRAcetam 250 MG TABLET PO SCH ×2 (11:24→20:33)
[2021-02-25] MEDS: clonazePAM 0.5 MG TABLET PO SCH ×2 (11:24→20:34)
[2021-02-25] MEDS: DIPHENOXYLATE/ATROPINE TABLET. PO SCH ×2 (11:25→20:30)
[2021-02-25] MEDS: sulfaSALAzine 500 MG TABLET PO SCH ×3 (11:25→20:31)
[2021-02-25] MEDS: MIRABEGRON 25 MG TAB.ER.24H PO SCH (11:25)
[2021-02-25] MEDS: SERTRALINE 50 MG TABLET. PO SCH (11:25)
--- NOTE | 2021-02-25 11:41 | NUR ---
Pt woke for breakfast and later went to her room to sleep. This nurse entered her room to administer medications. Pt was helpless during medication administration, while laying flat on her back she displayed inability to sit upright to take medications as requested by this nurse. This nurse then assisted to sit her upright and she deadweighted during the process. When I released by support of pt after assisting her upright she would fall back down onto the mattress. I once again instructed pt that she needed to sit upright to take her medicine. She refused to do so. I assisted her upright to take her medication and while she was taking the medication she laid back down supine and began to drink the water and sputter and cough. I firmly instructed her to stop drinking water while laying supine, and she continued to do so. I had to physically remove the cup from her hand. Pt has been flat and withdrawn in affect so far this shift. Absent of any disruptive behaviors on the unit. She does not speak or interact much with others. Compliant with medications. Plan of care continues, will pass to next shift.
[2021-02-25 15:54] VITALS: BP 99/65
[2021-02-25 17:45] VITALS: BP 117/75
--- NOTE | 2021-02-25 17:46 | NUR ---
Pt observed to be sleeping in bed, no overt signs of distress visible. BP 117/75, HR 92, T 97.1, RR 18, O2 sat 91% NC 3LPM. Lung sounds clear in upper lobes, diminished in bases. Will continue to monitor.
[2021-02-25 18:16] LABS: BASO % 1 % (0-3); EOS # 0.1 x10^3/uL (0.0-0.7); EOS % 2 % (0-3); HEMATOCRIT 33.6 % (36.0-47.0); LYMPH # 0.6 x10^3/uL (1.0-4.8); LYMPH % 17 % (24-48); MEAN CORPUSCULAR HEMOGLOBIN 36 pg (25-35); MEAN CORPUSCULAR HGB CONC 33 g/dL (31-37); MEAN CORPUSCULAR VOLUME 108 fL (79-100); MONO # 0.2 x10^3/uL (0.0-1.1); MONO % 6 % (0-9); NEUT # 2.6 x10^3uL (1.8-7.7); NEUT % 74 % (31-73); PLATELET COUNT 226 x10^3/uL (140-400); RED BLOOD COUNT 3.11 x10^6/uL (3.50-5.40); WHITE BLOOD COUNT 3.5 x10^3/uL (4.0-11.0)
[2021-02-25 18:26] LABS: CALCIUM 8.3 mg/dL (8.5-10.1); CREATININE 0.5 mg/dL (0.6-1.0); GFR 122.3; POTASSIUM 3.7 mmol/L (3.5-5.1)
[2021-02-25 18:32] LABS: ALBUMIN 2.4 g/dL (3.4-5.0); ALBUMIN/GLOBULIN RATIO 0.8 (1.0-1.7); TOTAL BILIRUBIN 0.5 mg/dL (0.2-1.0); TOTAL PROTEIN 5.5 g/dL (6.4-8.2)
[2021-02-25] MEDS: traZODone 50 MG TABLET. PO SCH (20:32)
[2021-02-25] MEDS: DIVALPROEX ER 500 MG TAB.ER.24H PO SCH (20:34)
--- NOTE | 2021-02-25 21:24 | PDOC ---
Exam Note: Napoleon Note: Please also refer to the separate dictated note~for this date of service dictated separately.~Patient seen individually. Discussed the patient with Nursing staff reviewed the chart.~Reviewed interim history and current functioning. Reviewed vital signs,~Labs/ Radiology~and current medications noted below. Continue current treatment with the changes noted in the dictated addendum note Assessment: Vital Signs/I&O: Vital Signs Date Time Temp Pulse Resp B/P (MAP) Pulse Ox O2 Delivery O2 Flow Rate FiO2 02/25/21 20:32 90 117/75 02/25/21 17:45 97.1 18 91 Nasal Cannula 3.0 I & O 02/24/21 02/24/21 02/25/21 15:00 23:00 07:00 Intake Total 120 ml 720 ml Balance 120 ml 720 ml Labs: Laboratory Tests Test 02/25/21 17:57 White Blood Count 3.5 x10^3/uL (4.0-11.0) L Red Blood Count 3.11 x10^6/uL (3.50-5.40) L Hemoglobin 11.0 g/dL (12.0-15.5) L Hematocrit 33.6 % (36.0-47.0) L Mean Corpuscular Volume 108 fL (79-100) H Mean Corpuscular Hemoglobin 36 pg (25-35) H Mean Corpuscular Hemoglobin Concent 33 g/dL (31-37) Red Cell Distribution Width 18.0 % (11.5-14.5) H Platelet Count 226 x10^3/uL (140-400) Neutrophils (%) (Auto) 74 % (31-73) H Lymphocytes (%) (Auto) 17 % (24-48) L Monocytes (%) (Auto) 6 % (0-9) Eosinophils (%) (Auto) 2 % (0-3) Basophils (%) (Auto) 1 % (0-3) Neutrophils # (Auto) 2.6 x10^3uL (1.8-7.7) Lymphocytes # (Auto) 0.6 x10^3/uL (1.0-4.8) L Monocytes # (Auto) 0.2 x10^3/uL (0.0-1.1) Eosinophils # (Auto) 0.1 x10^3/uL (0.0-0.7) Basophils # (Auto) 0.0 x10^3/uL (0.0-0.2) Sodium Level 138 mmol/L (136-145) Potassium Level 3.7 mmol/L (3.5-5.1) Chloride Level 100 mmol/L (98-107) Carbon Dioxide Level 38 mmol/L (21-32) H Anion Gap 0 (6-14) L Blood Urea Nitrogen 9 mg/dL (7-20) Creatinine 0.5 mg/dL (0.6-1.0) L Estimated GFR (Cockcroft-Gault) 122.3 BUN/Creatinine Ratio 18 (6-20) Glucose Level 108 mg/dL (70-99) H Calcium Level 8.3 mg/dL (8.5-10.1) L Total Bilirubin 0.5 mg/dL (0.2-1.0) Aspartate Amino Transferase (AST) 89 U/L (15-37) H Alanine Aminotransferase (ALT) 65 U/L (14-59) H Alkaline Phosphatase 149 U/L (46-116) H Total Protein 5.5 g/dL (6.4-8.2) L Albumin 2.4 g/dL (3.4-5.0) L Albumin/Globulin Ratio 0.8 (1.0-1.7) L Current Medications: Meds: Laboratory Tests Test 02/25/21 17:57 White Blood Count 3.5 x10^3/uL Red Blood Count 3.11 x10^6/uL Hemoglobin 11.0 g/dL Hematocrit 33.6 % Mean Corpuscular Volume 108 fL Mean Corpuscular Hemoglobin 36 pg Mean Corpuscular Hemoglobin Concent 33 g/dL Red Cell Distribution Width 18.0 % Platelet Count 226 x10^3/uL Neutrophils (%) (Auto) 74 % Lymphocytes (%) (Auto) 17 % Monocytes (%) (Auto) 6 % Eosinophils (%) (Auto) 2 % Basophils (%) (Auto) 1 % Neutrophils # (Auto) 2.6 x10^3uL Lymphocytes # (Auto) 0.6 x10^3/uL Monocytes # (Auto) 0.2 x10^3/uL Eosinophils # (Auto) 0.1 x10^3/uL Basophils # (Auto) 0.0 x10^3/uL Sodium Level 138 mmol/L Potassium Level 3.7 mmol/L Chloride Level 100 mmol/L Carbon Dioxide Level 38 mmol/L Anion Gap 0 Blood Urea Nitrogen 9 mg/dL Creatinine 0.5 mg/dL Estimated GFR (Cockcroft-Gault) 122.3 BUN/Creatinine Ratio 18 Glucose Level 108 mg/dL Calcium Level 8.3 mg/dL Total Bilirubin 0.5 mg/dL Aspartate Amino Transf (AST/SGOT) 89 U/L Alanine Aminotransferase (ALT/SGPT) 65 U/L Alkaline Phosphatase 149 U/L Total Protein 5.5 g/dL Albumin 2.4 g/dL Albumin/Globulin Ratio 0.8 Current Medications Medications (Trade) Dose Ordered Sig/Mya Route PRN Reason Start Time Stop Time Status Last Admin Dose Admin Acetaminophen (Tylenol) 650 mg PRN Q6HRS PRN PO MILD PAIN / TEMP > 100.3'F 02/16/21 15:45 02/18/21 06:31 Multi-Ingredient Ointment (Analgesic [place]) 1 debra PRN QID PRN TP MUSCLE PAIN 02/16/21 15:45 Al Hydroxide/Mg Hydroxide (Mylanta Plus Xs) 15 ml PRN AFTMEALHC PRN PO DYSPEPSIA 02/16/21 15:45 Magnesium Hydroxide (Milk Of Magnesia) 2,400 mg PRN QHS PRN PO 1ST CHOICE CONSTIPATION 02/16/21 15:45 Acetaminophen (Tylenol) 1,000 mg Q6HRS PRN PO pain or fever 02/16/21 17:00 02/16/21 17:35 DC Acetaminophen (Tylenol) 500 mg Q4HRS PRN PO MILD PAIN 1-3 02/16/21 17:00 02/16/21 17:36 DC Bisacodyl (Dulcolax Tab) 5 mg PRN DAILY PRN PO 2ND CHOICE CONSTIPATION 02/16/21 17:00 Vitamin D (Vitamin D3) 50,000 unit WEEKLY PO 02/22/21 09:00 02/22/21 07:16 Clonazepam (KlonoPIN) 0.5 mg BID PO 02/16/21 21:00 02/25/21 20:34 Dicyclomine HCl (Bentyl) 20 mg TID PO 02/16/21 21:00 02/25/21 20:32 Diphenoxylate HCl/ Atropine (Lomotil) 2 tab BID PO 02/16/21 21:00 02/25/21 20:30 Divalproex Sodium (Depakote Er) 1,000 mg HS PO 02/16/21 21:00 02/25/21 20:34 Duloxetine HCl (Cymbalta) 30 mg BID PO 02/16/21 21:00 02/25/21 20:33 Fluticasone Propionate (Flonase) 2 spray DAILY NS 02/17/21 09:00 02/25/21 09:00 Furosemide (Lasix) 20 mg DAILY PO 02/17/21 09:00 02/25/21 11:24 Gabapentin (Neurontin) 300 mg QID PO 02/16/21 17:00 02/25/21 20:31 Hydroxyurea (Hydrea) 1,000 mg DAILY PO 02/17/21 09:00 02/25/21 09:00 Levetiracetam (Keppra) 250 mg BID PO 02/16/21 21:00 02/25/21 20:33 Lidocaine (Lidoderm) 1 patch DAILY TP 02/17/21 09:00 02/17/21 09:24 DC Al Hydroxide/Mg Hydroxide (Mylanta Plus Xs) 15 ml PRN AFTMEALHC PRN PO DYSPEPSIA 02/16/21 17:00 02/16/21 17:36 DC Mirabegron (Myrbetriq) 50 mg DAILY PO 02/17/21 09:00 02/25/21 11:25 Nystatin (Nystop) 1 debra BID TP 02/16/21 21:00 02/25/21 20:34 Pantoprazole Sodium (Protonix) 40 mg DAILYAC PO 02/17/21 07:30 02/24/21 09:58 Potassium Chloride (Klor-Con) 40 meq DAILY PO 02/17/21 09:00 02/25/21 11:23 Sulfasalazine (Azulfidine) 500 mg TID PO 02/16/21 21:00 02/25/21 20:31 Trazodone HCl (Desyrel) 50 mg QHS PO 02/16/21 21:00 02/25/21 20:32 Non-Formulary Medication (Albuterol Sulfate (Albuterol Sulfate Conc Neb Soln)) 1 vial PRN Q4HRS PRN NEB SHORTNESS OF BREATH 02/16/21 17:00 02/16/21 17:49 DC Ascorbic Acid (Vitamin C) 1,000 mg DAILY PO 02/17/21 09:00 02/24/21 09:57 Diltiazem HCl (Cardizem) 60 mg BID PO 02/16/21 21:00 02/25/21 20:32 Lactobacillus Rhamnosus (Culturelle) 1 cap DAILY PO 02/17/21 09:00 02/24/21 09:59 Amylase/Lipase/ Protease (Zenpep 10,000) 1 cap TIDBFRMEAL PO 02/17/21 07:30 02/25/21 11:24 Non-Formulary Medication (Magnesium Hydroxide (Milk Of Magnesia)) 2,400 mg PRN DAILY PRN PO CONSTIPATION 02/16/21 17:00 02/16/21 17:37 DC Magnesium Oxide (Magnesium Oxide) 400 mg DAILY PO 02/17/21 09:00 02/24/21 09:58 Non-Formulary Medication (Methyl Salicylate/ Menthol (Analgesic [place])) 1 debra PRN Q6HRS PRN TP MUSCLE PAIN 02/16/21 17:00 02/16/21 17:37 DC Non-Formulary Medication (Umeclidinium [place] (Incruse Ellipta)) 62.5 mcg DAILY IH 02/17/21 09:00 02/16/21 17:49 DC Non-Formulary Medication (Zinc Gluconate ) 50 mg DAILY PO 02/17/21 09:00 02/16/21 17:46 DC Albuterol/ Ipratropium (Duoneb) 3 ml RTQID NEB 02/16/21 20:00 02/17/21 19:52 DC Albuterol Sulfate (Ventolin) 2.5 mg PRN Q4HRS PRN NEB SHORTNESS OF BREATH 02/16/21 18:00 Influenza Virus Vaccine Quadrival (Flulaval Quad [id number] Syringe) 0.5 ml ONCE ONCE VAX IM 02/17/21 09:00 02/17/21 09:01 DC 02/17/21 09:21 Lidocaine (Lidoderm) 1 patch DAILY PRN TP pain 02/17/21 09:30 Albuterol/ Ipratropium (Combivent Respimat 20-100 Mcg) 1 puff RTQID INH 02/17/21 20:00 02/25/21 20:30 Sertraline HCl (Zoloft) 25 mg DAILY PO 02/22/21 09:00 02/24/21 10:00 DC 02/24/21 09:59 Sertraline HCl (Zoloft) 50 mg DAILY PO 02/25/21 09:00 02/25/21 11:25 Current Medications Medications (Trade) Dose Ordered Sig/Mya Route PRN Reason Start Time Stop Time Status Last Admin Dose Admin Sertraline HCl (Zoloft) 50 mg DAILY PO 02/25/21 09:00 02/25/21 11:25 I have reviewed the current psychotropics carefully including drug interactions. Risk benefit ratio favors no change other than as noted in my dictated progress note. Diagnosis: Problems: (1) Impulse control disorder, unspecified (2) Mild cognitive impairment (3) Anxiety disorder, unspecified (4) Bipolar disorder, curr episode mixed, severe, with psychotic features (5) Bipolar 1 disorder, depressed NITHIN STEVENS MD Feb 25, 2021 21:24
--- NOTE | 2021-02-25 21:34 | PN ---
DATE: 02/24/2021 PSYCHIATRIC PROGRESS NOTE This is a late entry, date of service 02/24/2021, covers the elements not covered in my initial note SUBJECTIVE: I met with the patient in the evening of 02/24/2021, discussed with CORTNEY Luna. Overall, the patient appears helpless, anxious, still depressed. She slept 7-1/4 hours previous night. She is otherwise more cooperative. REVIEW OF SYSTEMS: Ambulation impaired, in wheelchair. No CV, , pulmonary, eye system symptoms on review. MENTAL STATUS EXAMINATION: Oriented to herself, situation. Speech has some latency, coherent. Abstraction fair. Computation impaired. Language function intact. Mood and affect, still depressed, anxious. Labs reviewed. IMPRESSION: Bipolar disorder, mixed with psychotic features, rule out major depressive disorder, anxiety disorder, unspecified. PLAN: Continue psychotropics from initial note including Depakote, Cymbalta, gabapentin, Keppra for her seizures, trazodone and Zoloft is being adjusted to 50 mg a day. Adjust further as clinically indicated. UMA DR: Hank TID: [id number]
--- NOTE | 2021-02-25 23:00 | NUR ---
Patient is located in her room on assumption of care, awake in her bed. She is flat, withdrawn. Answers assessment question with one word answers. She remains on 3L of O2 via NC, and is maintaining sats above 90%. She has had no agitated or attention seeking behaviors so far this shift. Denies SI. Denies pain. She complained of nausea but declined offer of Mylanta. She was compliant with assessments and medications whole. Patient appears to be sleeping comfortably at present time. Will continue to monitor.
[2021-02-26 06:10] VITALS: BP 100/63
[2021-02-26] MEDS: IPRATROPIUM/ALBUTEROL 20/100mcg/INH INHALER. INH SCH ×4 (08:00→20:35)
[2021-02-26] MEDS: FUROSEMIDE 20 MG TABLET PO SCH (08:58)
[2021-02-26] MEDS: SERTRALINE 50 MG TABLET. PO SCH (08:58)
[2021-02-26] MEDS: LACTOBACILLUS RHAMNOSUS GG 1 CAPSULE. PO SCH (08:58)
[2021-02-26] MEDS: PANTOPRAZOLE 40 MG TABLET. PO SCH (08:58)
[2021-02-26] MEDS: DICYCLOMINE HCL 20 MG TABLET PO SCH ×3 (08:58→20:36)
[2021-02-26] MEDS: DULoxetine HCL 30 MG CAPSULE.DR PO SCH ×2 (08:58→20:35)
[2021-02-26] MEDS: FLUTICASONE 50MCG/NASAL SPRAY 16GM BOTTLE. NS SCH (08:58)
[2021-02-26] MEDS: LIPASE/PROTEAS/AMYLAS 10/32/42 CAPSULE.DR. PO SCH ×3 (08:58→17:23)
[2021-02-26] MEDS: MAGNESIUM OXIDE 400 MG TABLET PO SCH (08:59)
[2021-02-26] MEDS: dilTIAZem HCL 30 MG TABLET PO SCH ×2 (08:59→20:36)
[2021-02-26] MEDS: POTASSIUM CHLORIDE 20 MEQ TABLET.ER. PO SCH (08:59)
[2021-02-26] MEDS: NYSTATIN TOPICAL POWDER 15GM BOTTLE. TP SCH ×2 (09:00→20:36)
[2021-02-26] MEDS: HYDROXYUREA 500 MG CAPSULE PO SCH (09:00)
[2021-02-26] MEDS: GABAPENTIN 300 MG CAPSULE. PO SCH ×4 (09:03→20:36)
[2021-02-26] MEDS: levETIRAcetam 250 MG TABLET PO SCH ×2 (09:03→20:35)
[2021-02-26] MEDS: DIPHENOXYLATE/ATROPINE TABLET. PO SCH ×2 (09:03→20:35)
[2021-02-26] MEDS: clonazePAM 0.5 MG TABLET PO SCH ×2 (09:03→20:35)
[2021-02-26] MEDS: sulfaSALAzine 500 MG TABLET PO SCH ×3 (09:03→20:36)
[2021-02-26] MEDS: MIRABEGRON 25 MG TAB.ER.24H PO SCH (09:03)
[2021-02-26] MEDS: ASCORBIC ACID 1,000 MG TABLET PO SCH (09:03)
--- NOTE | 2021-02-26 10:11 | NUR ---
Pt remains withdrawn, not social, expresses very few words. She displays forgetfulness which appears to not be consistent with her baseline, such as asking for water when she had a cup of water in her hand and asking for her nose spray when she just self administered the medication not even 2 minutes prior. Pt then displayed difficulty self administering her own medications into her mouth, with exaggerated shaking of the hands so much that pills were spilling out of the cup and onto her lap. Medications gathered and pt instructed to attempt again to self administer medications as staff has seen her be able to do so without difficulty. Pt then smoothly tipped the cup of medications into her mouth in one fluid motion without tremor. Staff is having difficultly in determining if pt behaviors/memory deficit during the course of the shift are genuine or potential attention seeking. Pt has been observed removing NC from her face and holding it in her hands, when instructed by staff to place the NC back on she will just hold it in front of her face. When further requested to actually put the NC into her nose she will reply "I am" but will continue to hold the NC in front of her face. At approx 1000 pt observed by staff to deliberately tip herself out of w/c and onto floor in group room. She landed on her R arm, did not strike head on the floor. When asked why she tipped herself out of w/c she replied, "I thought it would be fun." Pt has a large skin tear on her R elbow and R wrist. Wounds bandaged. After pt was placed back into w/c she attempted to tip herself out of w/c a 2nd time but was stopped by staff. Pt brought to quiet room with O2 concentrator so she could rest on a mattress on the floor for safety with closer supervision by staff. O2 sats remain >90% with O2 va NC at 3LPM. Plan of care continues, will pass to next shift.
--- NOTE | 2021-02-26 11:14 | PN ---
DATE: 02/25/2021 PSYCHIATRIC PROGRESS NOTE This late entry 02/25 covers elements not covered in my initial note 02/25. Discussed with CORTNEY Luna. SUBJECTIVE: The patient has been quite sedated during the day, sleeping off and on during the day, acting helpless, not trying to assist herself. She was trying to drink water while she was lying flat in bed and seemed to be aspirating. Nursing staff wondered whether she was doing this purposely but she denied it as I discussed this with her the evening of 02/25. She has been withdrawn. We will defer medical workup to Dr. Clark/Dr. Cheng. Her AST, ALT shows some elevation on 02/25 and we will repeat it in 2 days. REVIEW OF SYSTEMS: Shortness of breath on O2 supplements, impaired ambulation. No CV, GI, , ENT system symptoms on review. MENTAL STATUS EXAMINATION: The patient seemed to recognize me and knew my name. She is alert, oriented to self, situation. Speech has some latency, coherent. Abstraction fair. Computation impaired. Language function intact. Mood and affect somewhat withdrawn. Labs reviewed. IMPRESSION: Bipolar 1 disorder, mixed with psychotic features, major depressive disorder, recurrent, mild cognitive impairment. Rest unchanged. PLAN: Continue current psychotropics. Review drug interactions, risk/benefit ratio. Adjust as clinically indicated. HONG DR: Hank TID: [id number]
--- NOTE | 2021-02-26 11:20 | NUR ---
Pt observed removing O2 tubing from nose and playing with it. When instructed to pace the tubing back into her nose she continued to hold it and say "I will." This continued a few times, as pt would not follow reiteration of request and insist that she would. This nurse attempted to take the tubing to place on her face and pt would not let go of the tube, stating "Do you want to meet my mom? "Shut up" and "you'll have to deal with my ." O2 successfully placed back onto pt by this nurse.
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
[2021-02-26 15:27] LABS: BACTERIA,URINE 0 /HPF (0-FEW); BILIRUBIN,URINE NEG (NEG); CLARITY,URINE CLEAR; COLOR,URINE YELLOW; GLUCOSE,URINE NEG (NEG); NITRITE,URINE NEG (NEG); UROBILINOGEN,URINE 0.2 mg/dL (0.2 mg/dL)
[2021-02-26 15:28] LABS: HYALINE CASTS, URINE OCC /HPF
[2021-02-26 15:31] VITALS: BP 119/76
[2021-02-26] MEDS: traZODone 50 MG TABLET. PO SCH (20:35)
[2021-02-26] MEDS: DIVALPROEX ER 500 MG TAB.ER.24H PO SCH (20:36)
--- NOTE | 2021-02-26 21:10 | NUR ---
Patient is located in the hallway outside the [facility] on assumption of care, sitting 1:1 with staff for safety. She is flat, withdrawn. Answers assessment question with one word answers. She remains on 3L of O2 via NC, and is maintaining sats above 90%. She has had no agitated or attention seeking behaviors so far this shift. Denies SI. Denies any pain or discomfort. She was compliant with assessments and medications whole. Patient appears to be sleeping comfortably at present time. Will continue to monitor.
--- NOTE | 2021-02-26 21:29 | PDOC ---
Exam Note: Napoleon Note: Please also refer to the separate dictated note~for this date of service dictated separately.~Patient seen individually. Discussed the patient with Nursing staff reviewed the chart.~Reviewed interim history and current functioning. Reviewed vital signs,~Labs/ Radiology~and current medications noted below. Continue current treatment with the changes noted in the dictated addendum note Assessment: Vital Signs/I&O: Vital Signs Date Time Temp Pulse Resp B/P (MAP) Pulse Ox O2 Delivery O2 Flow Rate FiO2 02/26/21 20:36 86 119/76 02/26/21 15:31 98.2 18 95 Room Air 3.0 I & O 02/25/21 02/25/21 02/26/21 15:00 23:00 07:00 Intake Total 180 ml Balance 180 ml Labs: Laboratory Tests Test 02/26/21 14:50 Urine Collection Type U cath Urine Color Yellow Urine Clarity Clear Urine pH 7.0 Urine Specific [place] 1.020 Urine Protein Neg (NEG-TRACE) Urine Glucose (UA) Neg mg/dL (NEG) Urine Ketones (Stick) Trace mg/dL (NEG) Urine Blood Neg (NEG) Urine Nitrite Neg (NEG) Urine Bilirubin Neg (NEG) Urine Urobilinogen Dipstick 0.2 mg/dL (0.2 mg/dL) Urine Leukocyte Esterase Neg (NEG) Urine RBC 1-2 /HPF (0-2) Urine WBC 1-4 /HPF (0-4) Urine Squamous Epithelial Cells None /LPF Urine Bacteria 0 /HPF (0-FEW) Urine Hyaline Casts Occ /HPF Urine Mucus Slight /LPF Current Medications: Meds: Laboratory Tests Test 02/26/21 14:50 Urine Collection Type U cath Urine Color Yellow Urine Clarity Clear Urine pH 7.0 Urine Specific [place] 1.020 Urine Protein Neg Urine Glucose (UA) Neg mg/dL Urine Ketones (Stick) Trace mg/dL Urine Blood Neg Urine Nitrite Neg Urine Bilirubin Neg Urine Urobilinogen Dipstick 0.2 mg/dL Urine Leukocyte Esterase Neg Urine RBC 1-2 /HPF Urine WBC 1-4 /HPF Urine Squamous Epithelial Cells None /LPF Urine Bacteria 0 /HPF Urine Hyaline Casts Occ /HPF Urine Mucus Slight /LPF Current Medications Medications (Trade) Dose Ordered Sig/Mya Route PRN Reason Start Time Stop Time Status Last Admin Dose Admin Acetaminophen (Tylenol) 650 mg PRN Q6HRS PRN PO MILD PAIN / TEMP > 100.3'F 02/16/21 15:45 02/18/21 06:31 Multi-Ingredient Ointment (Analgesic [place]) 1 debra PRN QID PRN TP MUSCLE PAIN 02/16/21 15:45 Al Hydroxide/Mg Hydroxide (Mylanta Plus Xs) 15 ml PRN AFTMEALHC PRN PO DYSPEPSIA 02/16/21 15:45 Magnesium Hydroxide (Milk Of Magnesia) 2,400 mg PRN QHS PRN PO 1ST CHOICE CONSTIPATION 02/16/21 15:45 Acetaminophen (Tylenol) 1,000 mg Q6HRS PRN PO pain or fever 02/16/21 17:00 02/16/21 17:35 DC Acetaminophen (Tylenol) 500 mg Q4HRS PRN PO MILD PAIN 1-3 02/16/21 17:00 02/16/21 17:36 DC Bisacodyl (Dulcolax Tab) 5 mg PRN DAILY PRN PO 2ND CHOICE CONSTIPATION 02/16/21 17:00 Vitamin D (Vitamin D3) 50,000 unit WEEKLY PO 02/22/21 09:00 02/22/21 07:16 Clonazepam (KlonoPIN) 0.5 mg BID PO 02/16/21 21:00 02/26/21 20:35 Dicyclomine HCl (Bentyl) 20 mg TID PO 02/16/21 21:00 02/26/21 20:36 Diphenoxylate HCl/ Atropine (Lomotil) 2 tab BID PO 02/16/21 21:00 02/26/21 20:35 Divalproex Sodium (Depakote Er) 1,000 mg HS PO 02/16/21 21:00 02/26/21 20:36 Duloxetine HCl (Cymbalta) 30 mg BID PO 02/16/21 21:00 02/26/21 20:35 Fluticasone Propionate (Flonase) 2 spray DAILY NS 02/17/21 09:00 02/26/21 08:58 Furosemide (Lasix) 20 mg DAILY PO 02/17/21 09:00 02/26/21 08:58 Gabapentin (Neurontin) 300 mg QID PO 02/16/21 17:00 02/26/21 20:36 Hydroxyurea (Hydrea) 1,000 mg DAILY PO 02/17/21 09:00 02/26/21 09:00 Levetiracetam (Keppra) 250 mg BID PO 02/16/21 21:00 02/26/21 20:35 Lidocaine (Lidoderm) 1 patch DAILY TP 02/17/21 09:00 02/17/21 09:24 DC Al Hydroxide/Mg Hydroxide (Mylanta Plus Xs) 15 ml PRN AFTMEALHC PRN PO DYSPEPSIA 02/16/21 17:00 02/16/21 17:36 DC Mirabegron (Myrbetriq) 50 mg DAILY PO 02/17/21 09:00 02/26/21 09:03 Nystatin (Nystop) 1 debra BID TP 02/16/21 21:00 02/26/21 20:36 Pantoprazole Sodium (Protonix) 40 mg DAILYAC PO 02/17/21 07:30 02/26/21 08:58 Potassium Chloride (Klor-Con) 40 meq DAILY PO 02/17/21 09:00 02/26/21 08:59 Sulfasalazine (Azulfidine) 500 mg TID PO 02/16/21 21:00 02/26/21 20:36 Trazodone HCl (Desyrel) 50 mg QHS PO 02/16/21 21:00 02/26/21 20:35 Non-Formulary Medication (Albuterol Sulfate (Albuterol Sulfate Conc Neb Soln)) 1 vial PRN Q4HRS PRN NEB SHORTNESS OF BREATH 02/16/21 17:00 02/16/21 17:49 DC Ascorbic Acid (Vitamin C) 1,000 mg DAILY PO 02/17/21 09:00 02/26/21 09:03 Diltiazem HCl (Cardizem) 60 mg BID PO 02/16/21 21:00 02/26/21 20:36 Lactobacillus Rhamnosus (Culturelle) 1 cap DAILY PO 02/17/21 09:00 02/26/21 08:58 Amylase/Lipase/ Protease (Zenpep 10,000) 1 cap TIDBFRMEAL PO 02/17/21 07:30 02/26/21 17:23 Non-Formulary Medication (Magnesium Hydroxide (Milk Of Magnesia)) 2,400 mg PRN DAILY PRN PO CONSTIPATION 02/16/21 17:00 02/16/21 17:37 DC Magnesium Oxide (Magnesium Oxide) 400 mg DAILY PO 02/17/21 09:00 02/26/21 08:59 Non-Formulary Medication (Methyl Salicylate/ Menthol (Analgesic [place])) 1 debra PRN Q6HRS PRN TP MUSCLE PAIN 02/16/21 17:00 02/16/21 17:37 DC Non-Formulary Medication (Umeclidinium [place] (Incruse Ellipta)) 62.5 mcg DAILY IH 02/17/21 09:00 02/16/21 17:49 DC Non-Formulary Medication (Zinc Gluconate ) 50 mg DAILY PO 02/17/21 09:00 02/16/21 17:46 DC Albuterol/ Ipratropium (Duoneb) 3 ml RTQID NEB 02/16/21 20:00 02/17/21 19:52 DC Albuterol Sulfate (Ventolin) 2.5 mg PRN Q4HRS PRN NEB SHORTNESS OF BREATH 02/16/21 18:00 Influenza Virus Vaccine Quadrival (Flulaval Quad [id number] Syringe) 0.5 ml ONCE ONCE VAX IM 02/17/21 09:00 02/17/21 09:01 DC 02/17/21 09:21 Lidocaine (Lidoderm) 1 patch DAILY PRN TP pain 02/17/21 09:30 Albuterol/ Ipratropium (Combivent Respimat 20-100 Mcg) 1 puff RTQID INH 02/17/21 20:00 02/26/21 20:35 Sertraline HCl (Zoloft) 25 mg DAILY PO 02/22/21 09:00 02/24/21 10:00 DC 02/24/21 09:59 Sertraline HCl (Zoloft) 50 mg DAILY PO 02/25/21 09:00 02/26/21 08:58 Olanzapine (ZyPREXA ZYDIS) 5 mg 1X ONCE PO 02/26/21 12:03 02/26/21 12:09 DC 02/26/21 12:25 Current Medications Medications (Trade) Dose Ordered Sig/Mya Route PRN Reason Start Time Stop Time Status Last Admin Dose Admin Olanzapine (ZyPREXA ZYDIS) 5 mg 1X ONCE PO 02/26/21 12:03 02/26/21 12:09 DC 02/26/21 12:25 I have reviewed the current psychotropics carefully including drug interactions. Risk benefit ratio favors no change other than as noted in my dictated progress note. Diagnosis: Problems: (1) Bipolar disorder, curr episode mixed, severe, with psychotic features (2) Mild cognitive impairment (3) Impulse control disorder, unspecified (4) Anxiety disorder, unspecified NITHIN STEVENS MD Feb 26, 2021 21:29
[2021-02-27 05:55] VITALS: BP 99/63
[2021-02-27] MEDS: POTASSIUM CHLORIDE 20 MEQ TABLET.ER. PO SCH (09:00)
[2021-02-27] MEDS: FLUTICASONE 50MCG/NASAL SPRAY 16GM BOTTLE. NS SCH (09:00)
[2021-02-27] MEDS: NYSTATIN TOPICAL POWDER 15GM BOTTLE. TP SCH ×2 (09:00→21:27)
[2021-02-27] MEDS: dilTIAZem HCL 30 MG TABLET PO SCH ×2 (09:00→21:26)
[2021-02-27] MEDS: FUROSEMIDE 20 MG TABLET PO SCH (10:08)
[2021-02-27] MEDS: LIPASE/PROTEAS/AMYLAS 10/32/42 CAPSULE.DR. PO SCH ×3 (10:08→16:30)
[2021-02-27] MEDS: DULoxetine HCL 30 MG CAPSULE.DR PO SCH ×2 (10:08→21:27)
[2021-02-27] MEDS: GABAPENTIN 300 MG CAPSULE. PO SCH ×4 (10:08→21:26)
[2021-02-27] MEDS: LACTOBACILLUS RHAMNOSUS GG 1 CAPSULE. PO SCH (10:09)
[2021-02-27] MEDS: SERTRALINE 50 MG TABLET. PO SCH (10:09)
[2021-02-27] MEDS: DIPHENOXYLATE/ATROPINE TABLET. PO SCH ×2 (10:09→21:29)
[2021-02-27] MEDS: sulfaSALAzine 500 MG TABLET PO SCH ×3 (10:09→21:29)
[2021-02-27] MEDS: MAGNESIUM OXIDE 400 MG TABLET PO SCH (10:09)
[2021-02-27] MEDS: DICYCLOMINE HCL 20 MG TABLET PO SCH ×3 (10:09→21:26)
[2021-02-27] MEDS: levETIRAcetam 250 MG TABLET PO SCH ×2 (10:10→21:26)
[2021-02-27] MEDS: PANTOPRAZOLE 40 MG TABLET. PO SCH (10:10)
[2021-02-27] MEDS: LIDOCAINE (700MG/PATCH) PATCH. TP PRN (10:11)
[2021-02-27] MEDS: clonazePAM 0.5 MG TABLET PO SCH (10:11)
[2021-02-27] MEDS: IPRATROPIUM/ALBUTEROL 20/100mcg/INH INHALER. INH SCH ×4 (10:11→21:29)
[2021-02-27] MEDS: MIRABEGRON 25 MG TAB.ER.24H PO SCH (10:12)
[2021-02-27] MEDS: ASCORBIC ACID 1,000 MG TABLET PO SCH (10:12)
[2021-02-27] MEDS: HYDROXYUREA 500 MG CAPSULE PO SCH (10:13)
--- NOTE | 2021-02-27 11:23 | RAD ---
CT HEAD WITHOUT CONTRAST 02/27/2021 10:51 AM Indication: Reason: establish baseline/altered mental status / Spl. Instructions: / History: Comparison: CT head without contrast January 19, 2021 Procedure: Multidetector CT imaging of the head was performed without the administration of contrast. Findings: Exam limited by noninclusion of the inferior most frontal lobes or temporal lobes. Visualiz ed intracranial structures demonstrate no evidence of acute hemorrhage or new territorial infarct. Ri ght frontal encephalomalacia likely represents a chronic insult and is unchanged. Patchy periventricu lar and deep white matter hypoattenuation is similar to comparison study. Supratentorial atrophic stewart nges, greater than expected for age are stable. No acute osseous changes are noted in the interim. IMPRESSION: Limited study without evidence of intracranial abnormality or acute change from prior ex am Electronically signed by: Alex Snider MD (02/27/2021 11:20 AM) [id number]
--- NOTE | 2021-02-27 14:19 | NUR ---
Nursing note: Pt continues to have staff sitting 1:1 with her while awake for safety. She was allowed to sleep in this AM and meds were given when pt woke up. She is compliant with meds whole and cooperative with assessment. PT continues to act helpless and as if she is unable to sit up straight on her own. Pt wished to have lidocaine patch placed on her lower back, but would not sit up in her wheelchair in order for it to be placed. Staff had to hold her up or she would immediately go back to the position she was sitting prior to staff holding her back up. Pt was doing the same thing while being assisted in the bathroom. Pt continued to lean way back with her back against the wall. Pt is currently in the day room watching TV. Will continue to monitor.
[2021-02-27 15:38] VITALS: BP 119/78
[2021-02-27 20:02] LABS: BASO % 1 % (0-3); EOS # 0.1 x10^3/uL (0.0-0.7); EOS % 2 % (0-3); HEMATOCRIT 34.5 % (36.0-47.0); HEMOGLOBIN 11.4 g/dL (12.0-15.5); LYMPH % 25 % (24-48); MEAN CORPUSCULAR HEMOGLOBIN 36 pg (25-35); MEAN CORPUSCULAR HGB CONC 33 g/dL (31-37); MEAN CORPUSCULAR VOLUME 109 fL (79-100); MONO # 0.4 x10^3/uL (0.0-1.1); MONO % 9 % (0-9); NEUT # 2.5 x10^3uL (1.8-7.7); NEUT % 63 % (31-73); PLATELET COUNT 187 x10^3/uL (140-400); RED BLOOD COUNT 3.16 x10^6/uL (3.50-5.40); RED CELL DISTRIBUTION WIDTH 17.7 % (11.5-14.5)
[2021-02-27 20:17] LABS: CALCIUM 8.2 mg/dL (8.5-10.1); CREATININE 0.4 mg/dL (0.6-1.0); GFR 158.3; POTASSIUM 3.5 mmol/L (3.5-5.1)
[2021-02-27 20:22] LABS: ALBUMIN 2.2 g/dL (3.4-5.0); ALBUMIN/GLOBULIN RATIO 0.7 (1.0-1.7); TOTAL BILIRUBIN 0.4 mg/dL (0.2-1.0); TOTAL PROTEIN 5.4 g/dL (6.4-8.2)
--- NOTE | 2021-02-27 20:55 | RAD ---
EXAM: AP View of the chest DATE: 02/27/2021 7:58 PM INDICATION: Reason: soa cough / Spl. Instructions: / History: COMPARISON: No Prior FINDINGS: The heart is not enlarged. Bilateral perihilar and right midlung and lung base airspace opacities lik stacey consolidative process such as pneumonia. Trace pleural effusions. No pneumothorax. IMPRESSION: 1. Bilateral perihilar and lung base opacities may represent consolidative process as pneumonia. Electronically signed by: Carlitos Schwab MD (02/27/2021 8:53 PM) CASEY
[2021-02-27] MEDS: traZODone 50 MG TABLET. PO SCH (21:27)
[2021-02-27] MEDS: DIVALPROEX ER 500 MG TAB.ER.24H PO SCH (21:27)
--- NOTE | 2021-02-27 21:27 | PDOC ---
Exam Note: Napoleon Note: Please also refer to the separate dictated note~for this date of service dictated separately.~Patient seen individually. Discussed the patient with Nursing staff reviewed the chart.~Reviewed interim history and current functioning. Reviewed vital signs,~Labs/ Radiology~and current medications noted below. Continue current treatment with the changes noted in the dictated addendum note Assessment: Vital Signs/I&O: Vital Signs Date Time Temp Pulse Resp B/P (MAP) Pulse Ox O2 Delivery O2 Flow Rate FiO2 02/27/21 15:38 98.9 90 20 119/78 (92) 92 2.0 02/26/21 15:31 Room Air I & O 02/26/21 02/26/21 02/27/21 15:00 23:00 07:00 Intake Total 600 ml 360 ml Balance 600 ml 360 ml Labs: Laboratory Tests Test 02/27/21 19:45 02/27/21 19:57 Ammonia 39 mcmol/L (11-34) H Creatine Kinase 12 U/L (26-192) L White Blood Count 4.0 x10^3/uL (4.0-11.0) Red Blood Count 3.16 x10^6/uL (3.50-5.40) L Hemoglobin 11.4 g/dL (12.0-15.5) L Hematocrit 34.5 % (36.0-47.0) L Mean Corpuscular Volume 109 fL (79-100) H Mean Corpuscular Hemoglobin 36 pg (25-35) H Mean Corpuscular Hemoglobin Concent 33 g/dL (31-37) Red Cell Distribution Width 17.7 % (11.5-14.5) H Platelet Count 187 x10^3/uL (140-400) Neutrophils (%) (Auto) 63 % (31-73) Lymphocytes (%) (Auto) 25 % (24-48) Monocytes (%) (Auto) 9 % (0-9) Eosinophils (%) (Auto) 2 % (0-3) Basophils (%) (Auto) 1 % (0-3) Neutrophils # (Auto) 2.5 x10^3uL (1.8-7.7) Lymphocytes # (Auto) 1.0 x10^3/uL (1.0-4.8) Monocytes # (Auto) 0.4 x10^3/uL (0.0-1.1) Eosinophils # (Auto) 0.1 x10^3/uL (0.0-0.7) Basophils # (Auto) 0.0 x10^3/uL (0.0-0.2) Sodium Level 141 mmol/L (136-145) Potassium Level 3.5 mmol/L (3.5-5.1) Chloride Level 102 mmol/L (98-107) Carbon Dioxide Level 37 mmol/L (21-32) H Anion Gap 2 (6-14) L Blood Urea Nitrogen 15 mg/dL (7-20) Creatinine 0.4 mg/dL (0.6-1.0) L Estimated GFR (Cockcroft-Gault) 158.3 BUN/Creatinine Ratio 38 (6-20) H Glucose Level 117 mg/dL (70-99) H Lactic Acid Level 1.0 mmol/L (0.4-2.0) Calcium Level 8.2 mg/dL (8.5-10.1) L Total Bilirubin 0.4 mg/dL (0.2-1.0) Aspartate Amino Transferase (AST) 38 U/L (15-37) H Alanine Aminotransferase (ALT) 34 U/L (14-59) Alkaline Phosphatase 123 U/L (46-116) H Total Protein 5.4 g/dL (6.4-8.2) L Albumin 2.2 g/dL (3.4-5.0) L Albumin/Globulin Ratio 0.7 (1.0-1.7) L Current Medications: Meds: Laboratory Tests Test 02/27/21 19:45 02/27/21 19:57 Ammonia 39 mcmol/L Creatine Kinase 12 U/L White Blood Count 4.0 x10^3/uL Red Blood Count 3.16 x10^6/uL Hemoglobin 11.4 g/dL Hematocrit 34.5 % Mean Corpuscular Volume 109 fL Mean Corpuscular Hemoglobin 36 pg Mean Corpuscular Hemoglobin Concent 33 g/dL Red Cell Distribution Width 17.7 % Platelet Count 187 x10^3/uL Neutrophils (%) (Auto) 63 % Lymphocytes (%) (Auto) 25 % Monocytes (%) (Auto) 9 % Eosinophils (%) (Auto) 2 % Basophils (%) (Auto) 1 % Neutrophils # (Auto) 2.5 x10^3uL Lymphocytes # (Auto) 1.0 x10^3/uL Monocytes # (Auto) 0.4 x10^3/uL Eosinophils # (Auto) 0.1 x10^3/uL Basophils # (Auto) 0.0 x10^3/uL Sodium Level 141 mmol/L Potassium Level 3.5 mmol/L Chloride Level 102 mmol/L Carbon Dioxide Level 37 mmol/L Anion Gap 2 Blood Urea Nitrogen 15 mg/dL Creatinine 0.4 mg/dL Estimated GFR (Cockcroft-Gault) 158.3 BUN/Creatinine Ratio 38 Glucose Level 117 mg/dL Lactic Acid Level 1.0 mmol/L Calcium Level 8.2 mg/dL Total Bilirubin 0.4 mg/dL Aspartate Amino Transf (AST/SGOT) 38 U/L Alanine Aminotransferase (ALT/SGPT) 34 U/L Alkaline Phosphatase 123 U/L Total Protein 5.4 g/dL Albumin 2.2 g/dL Albumin/Globulin Ratio 0.7 Current Medications Medications (Trade) Dose Ordered Sig/Mya Route PRN Reason Start Time Stop Time Status Last Admin Dose Admin Acetaminophen (Tylenol) 650 mg PRN Q6HRS PRN PO MILD PAIN / TEMP > 100.3'F 02/16/21 15:45 02/18/21 06:31 Multi-Ingredient Ointment (Analgesic [place]) 1 debra PRN QID PRN TP MUSCLE PAIN 02/16/21 15:45 Al Hydroxide/Mg Hydroxide (Mylanta Plus Xs) 15 ml PRN AFTMEALHC PRN PO DYSPEPSIA 02/16/21 15:45 Magnesium Hydroxide (Milk Of Magnesia) 2,400 mg PRN QHS PRN PO 1ST CHOICE CONSTIPATION 02/16/21 15:45 Acetaminophen (Tylenol) 1,000 mg Q6HRS PRN PO pain or fever 02/16/21 17:00 02/16/21 17:35 DC Acetaminophen (Tylenol) 500 mg Q4HRS PRN PO MILD PAIN 1-3 02/16/21 17:00 02/16/21 17:36 DC Bisacodyl (Dulcolax Tab) 5 mg PRN DAILY PRN PO 2ND CHOICE CONSTIPATION 02/16/21 17:00 Vitamin D (Vitamin D3) 50,000 unit WEEKLY PO 02/22/21 09:00 02/22/21 07:16 Clonazepam (KlonoPIN) 0.5 mg BID PO 02/16/21 21:00 02/27/21 19:54 DC 02/27/21 10:11 Dicyclomine HCl (Bentyl) 20 mg TID PO 02/16/21 21:00 02/27/21 12:16 Diphenoxylate HCl/ Atropine (Lomotil) 2 tab BID PO 02/16/21 21:00 02/27/21 10:09 Divalproex Sodium (Depakote Er) 1,000 mg HS PO 02/16/21 21:00 02/26/21 20:36 Duloxetine HCl (Cymbalta) 30 mg BID PO 02/16/21 21:00 02/27/21 10:08 Fluticasone Propionate (Flonase) 2 spray DAILY NS 02/17/21 09:00 02/27/21 09:00 Furosemide (Lasix) 20 mg DAILY PO 02/17/21 09:00 02/27/21 10:08 Gabapentin (Neurontin) 300 mg QID PO 02/16/21 17:00 02/27/21 12:16 Hydroxyurea (Hydrea) 1,000 mg DAILY PO 02/17/21 09:00 02/27/21 10:13 Levetiracetam (Keppra) 250 mg BID PO 02/16/21 21:00 02/27/21 10:10 Lidocaine (Lidoderm) 1 patch DAILY TP 02/17/21 09:00 02/17/21 09:24 DC Al Hydroxide/Mg Hydroxide (Mylanta Plus Xs) 15 ml PRN AFTMEALHC PRN PO DYSPEPSIA 02/16/21 17:00 02/16/21 17:36 DC Mirabegron (Myrbetriq) 50 mg DAILY PO 02/17/21 09:00 02/27/21 10:12 Nystatin (Nystop) 1 debra BID TP 02/16/21 21:00 02/27/21 09:00 Pantoprazole Sodium (Protonix) 40 mg DAILYAC PO 02/17/21 07:30 02/27/21 10:10 Potassium Chloride (Klor-Con) 40 meq DAILY PO 02/17/21 09:00 02/27/21 09:00 Sulfasalazine (Azulfidine) 500 mg TID PO 02/16/21 21:00 02/27/21 12:16 Trazodone HCl (Desyrel) 50 mg QHS PO 02/16/21 21:00 02/26/21 20:35 Non-Formulary Medication (Albuterol Sulfate (Albuterol Sulfate Conc Neb Soln)) 1 vial PRN Q4HRS PRN NEB SHORTNESS OF BREATH 02/16/21 17:00 02/16/21 17:49 DC Ascorbic Acid (Vitamin C) 1,000 mg DAILY PO 02/17/21 09:00 02/27/21 10:12 Diltiazem HCl (Cardizem) 60 mg BID PO 02/16/21 21:00 02/26/21 20:36 Lactobacillus Rhamnosus (Culturelle) 1 cap DAILY PO 02/17/21 09:00 02/27/21 10:09 Amylase/Lipase/ Protease (Zenpep 10,000) 1 cap TIDBFRMEAL PO 02/17/21 07:30 02/27/21 12:15 Non-Formulary Medication (Magnesium Hydroxide (Milk Of Magnesia)) 2,400 mg PRN DAILY PRN PO CONSTIPATION 02/16/21 17:00 02/16/21 17:37 DC Magnesium Oxide (Magnesium Oxide) 400 mg DAILY PO 02/17/21 09:00 02/27/21 10:09 Non-Formulary Medication (Methyl Salicylate/ Menthol (Analgesic [place])) 1 debra PRN Q6HRS PRN TP MUSCLE PAIN 02/16/21 17:00 02/16/21 17:37 DC Non-Formulary Medication (Umeclidinium [place] (Incruse Ellipta)) 62.5 mcg DAILY IH 02/17/21 09:00 02/16/21 17:49 DC Non-Formulary Medication (Zinc Gluconate ) 50 mg DAILY PO 02/17/21 09:00 02/16/21 17:46 DC Albuterol/ Ipratropium (Duoneb) 3 ml RTQID NEB 02/16/21 20:00 02/17/21 19:52 DC Albuterol Sulfate (Ventolin) 2.5 mg PRN Q4HRS PRN NEB SHORTNESS OF BREATH 02/16/21 18:00 Influenza Virus Vaccine Quadrival (Flulaval Quad Syringe) 0.5 ml ONCE ONCE VAX IM 02/17/21 09:00 02/17/21 09:01 DC 02/17/21 09:21 Lidocaine (Lidoderm) 1 patch DAILY PRN TP pain 02/17/21 09:30 02/27/21 10:11 Albuterol/ Ipratropium (Combivent Respimat 20-100 Mcg) 1 puff RTQID INH 02/17/21 20:00 02/27/21 12:16 Sertraline HCl (Zoloft) 25 mg DAILY PO 02/22/21 09:00 02/24/21 10:00 DC 02/24/21 09:59 Sertraline HCl (Zoloft) 50 mg DAILY PO 02/25/21 09:00 02/27/21 10:09 Olanzapine (ZyPREXA ZYDIS) 5 mg 1X ONCE PO 02/26/21 12:03 02/26/21 12:09 DC 02/26/21 12:25 Clonazepam (KlonoPIN) 0.5 mg DAILY PO 02/28/21 09:00 03/02/21 07:00 I have reviewed the current psychotropics carefully including drug interactions. Risk benefit ratio favors no change other than as noted in my dictated progress note. Diagnosis: Problems: (1) Bipolar disorder, curr episode mixed, severe, with psychotic features (2) Anxiety disorder, unspecified (3) Mild cognitive impairment (4) Impulse control disorder, unspecified NITHIN STEVENS MD Feb 27, 2021 21:27
--- NOTE | 2021-02-28 01:33 | NUR ---
Nursing Note Pt in bed sleeping, difficulty awakening her to take meds or comply with assessment. Pt coughs intermittently congested sounding. Lungs have crackles to left base coarse, fine to the right. O2 now at 3 liters, sats between 91-94. Labs and xray ordered from Dr. Duffy, Xray shows airspace dz vs consolidative process could be pneumonia. Pt later awakens and talks to me but doesn't make much sense rambling. VSS
[2021-02-28 05:55] VITALS: BP 136/80
[2021-02-28] MEDS: IPRATROPIUM/ALBUTEROL 20/100mcg/INH INHALER. INH SCH ×4 (08:00→20:27)
[2021-02-28] MEDS: DIPHENOXYLATE/ATROPINE TABLET. PO SCH ×2 (08:26→20:41)
[2021-02-28] MEDS: MAGNESIUM OXIDE 400 MG TABLET PO SCH (08:26)
[2021-02-28] MEDS: PANTOPRAZOLE 40 MG TABLET. PO SCH (08:26)
[2021-02-28] MEDS: DICYCLOMINE HCL 20 MG TABLET PO SCH ×3 (08:26→20:30)
[2021-02-28] MEDS: FUROSEMIDE 20 MG TABLET PO SCH (08:26)
[2021-02-28] MEDS: SERTRALINE 50 MG TABLET. PO SCH (08:26)
[2021-02-28] MEDS: LACTOBACILLUS RHAMNOSUS GG 1 CAPSULE. PO SCH (08:26)
[2021-02-28] MEDS: DULoxetine HCL 30 MG CAPSULE.DR PO SCH ×2 (08:27→20:30)
[2021-02-28] MEDS: POTASSIUM CHLORIDE 20 MEQ TABLET.ER. PO SCH (08:27)
[2021-02-28] MEDS: GABAPENTIN 300 MG CAPSULE. PO SCH ×4 (08:27→20:41)
[2021-02-28] MEDS: levETIRAcetam 250 MG TABLET PO SCH ×2 (08:27→20:32)
[2021-02-28] MEDS: LIPASE/PROTEAS/AMYLAS 10/32/42 CAPSULE.DR. PO SCH ×3 (08:27→15:58)
[2021-02-28] MEDS: dilTIAZem HCL 30 MG TABLET PO SCH ×2 (08:28→20:30)
[2021-02-28] MEDS: HYDROXYUREA 500 MG CAPSULE PO SCH (08:28)
[2021-02-28] MEDS: clonazePAM 0.5 MG TABLET PO SCH (08:29)
[2021-02-28] MEDS: MIRABEGRON 25 MG TAB.ER.24H PO SCH (08:29)
[2021-02-28] MEDS: sulfaSALAzine 500 MG TABLET PO SCH ×3 (08:29→20:41)
[2021-02-28] MEDS: ASCORBIC ACID 1,000 MG TABLET PO SCH (08:29)
[2021-02-28] MEDS: FLUTICASONE 50MCG/NASAL SPRAY 16GM BOTTLE. NS SCH (08:30)
[2021-02-28] MEDS: NYSTATIN TOPICAL POWDER 15GM BOTTLE. TP SCH ×2 (08:30→20:32)
--- NOTE | 2021-02-28 10:43 | PN ---
DATE: 02/26/2021 PSYCHIATRIC PROGRESS NOTE SUBJECTIVE: This is a late entry, covers elements not covered in my initial note. I met with the patient evening of 02/26 and earlier in the day, I was paged as an emergency by CORTNEY Luna as the patient had wrapped an oxygen tubing around her neck, leaving a tight elbert around her neck. It appears she was trying to suffocate herself, but denied this when staff addressed this with her. We did place her on one-on-one status. I met with the patient in the evening. Discussed with CORTNEY Zavala in the evening. REVIEW OF SYSTEMS: Ambulation impaired, in wheelchair. No shortness of breath. No CV, GI, , eye system symptoms on review. MENTAL STATUS EXAMINATION: The patient is oriented to herself, situation. Speech has some latency coherent. Abstraction fair. Computation impaired. Language function intact. Attention span short. Mood and affect somewhat depressed with ongoing mood lability, though she minimizes this. She denies active suicidal ideation and we might remove the one-on-one status overnight when she is stable. Nursing staff will reassess later. IMPRESSION: Bipolar 1 disorder, mixed versus depressed, anxiety disorder, unspecified. PLAN: Continue psychotropics from initial note including Depakote and Klonopin p.r.n., Cymbalta, gabapentin, Keppra for her seizures, Zoloft and trazodone. Adjust further as clinically indicated. Reviewed drug interactions risk/benefit ratio at some length. PAYTON/MARGRET DR: Hank TID: [id number]
--- NOTE | 2021-02-28 10:44 | PN ---
DATE: 02/27/2021 PSYCHIATRIC PROGRESS NOTE This is a late entry, 02/27/2021, covers elements not covered in my initial note. SUBJECTIVE: Met with the patient the evening of 02/27/2021, discussed with CORTNEY Tam. Overall, medically the patient appears to be declining somewhat. We will defer medical workup to Dr. Cheng/Dr. Clark, but we will check her serum ammonia level and creatinine kinase. She has not attempted or had any other gestures for suicide like she did the day before. REVIEW OF SYSTEMS: Ambulation impaired. She is lying in bed, short of breath, remains on oxygen supplements. No CV, GI, , eye system symptoms on review. MENTAL STATUS EXAMINATION: The patient is reasonably oriented. Speech is coherent, has some latency. Abstraction fair. Computation impaired. Language function intact. Attention span short. Mood and affect remain somewhat depressed. No suicidal ideation at this time. LABS: Reviewed. DIAGNOSES: Bipolar 1 disorder, mixed versus depressed; anxiety disorder, unspecified. PLAN: Continue the patient on her current psychotropics. Check the labs as above. Defer to Dr. Cheng. Readjust psychotropics depending on her progress. Continue to observe for any indicators of repeat suicidal ideation. PAYTON/CORRINA DR: Hank TID: [id number]
--- NOTE | 2021-02-28 10:46 | NUR ---
Pt a&o to name and only. She believes she is currently in [place]. She does not interact much with others and has remained primarily withdrawn. She requires staff to administer medications directly into her mouth d/t her picking around at the cup of pills, placing them onto the table, then dumping some onto the floor. She remains on O2 at 3LPM via NC, O2 sats have remained >90%. No episodes of trying to throw herself onto the floor or removing her NC so far. 1:1 observation while awake order still in effect. Plan of care continues, will pass to next shift. Addendum: 02/28/21 at 1049 by SELENA NGO RN Addendum: Pt denies SI when asked. Absent of delusional behaviors or statements so far this shift.
--- NOTE | 2021-02-28 11:59 | NUR ---
Accompanied Dr Cheng on rounds with pt. He also reviewed CXR. No orders at this time. Will continue to monitor, 1:1 observation continues.
[2021-02-28 15:35] VITALS: BP 105/69
[2021-02-28] MEDS: traZODone 50 MG TABLET. PO SCH (20:32)
[2021-02-28] MEDS: DIVALPROEX ER 500 MG TAB.ER.24H PO SCH (20:32)
--- NOTE | 2021-02-28 22:46 | PDOC ---
Exam Note: Napoleon Note: Please also refer to the separate dictated note~for this date of service dictated separately.~Patient seen individually. Discussed the patient with Nursing staff reviewed the chart.~Reviewed interim history and current functioning. Reviewed vital signs,~Labs/ Radiology~and current medications noted below. Continue current treatment with the changes noted in the dictated addendum note Assessment: Vital Signs/I&O: Vital Signs Date Time Temp Pulse Resp B/P (MAP) Pulse Ox O2 Delivery O2 Flow Rate FiO2 02/28/21 20:30 80 105/69 02/28/21 15:35 97.8 16 95 2.0 02/26/21 15:31 Room Air I & O 02/27/21 02/27/21 02/28/21 15:00 23:00 07:00 Intake Total 360 ml 0 ml Balance 360 ml 0 ml Current Medications: Meds: Current Medications Medications (Trade) Dose Ordered Sig/Mya Route PRN Reason Start Time Stop Time Status Last Admin Dose Admin Acetaminophen (Tylenol) 650 mg PRN Q6HRS PRN PO MILD PAIN / TEMP > 100.3'F 02/16/21 15:45 02/18/21 06:31 Multi-Ingredient Ointment (Analgesic [place]) 1 debra PRN QID PRN TP MUSCLE PAIN 02/16/21 15:45 Al Hydroxide/Mg Hydroxide (Mylanta Plus Xs) 15 ml PRN AFTMEALHC PRN PO DYSPEPSIA 02/16/21 15:45 Magnesium Hydroxide (Milk Of Magnesia) 2,400 mg PRN QHS PRN PO 1ST CHOICE CONSTIPATION 02/16/21 15:45 Acetaminophen (Tylenol) 1,000 mg Q6HRS PRN PO pain or fever 02/16/21 17:00 02/16/21 17:35 DC Acetaminophen (Tylenol) 500 mg Q4HRS PRN PO MILD PAIN 1-3 02/16/21 17:00 02/16/21 17:36 DC Bisacodyl (Dulcolax Tab) 5 mg PRN DAILY PRN PO 2ND CHOICE CONSTIPATION 02/16/21 17:00 Vitamin D (Vitamin D3) 50,000 unit WEEKLY PO 02/22/21 09:00 02/22/21 07:16 Clonazepam (KlonoPIN) 0.5 mg BID PO 02/16/21 21:00 02/27/21 19:54 DC 02/27/21 10:11 Dicyclomine HCl (Bentyl) 20 mg TID PO 02/16/21 21:00 02/28/21 20:30 Diphenoxylate HCl/ Atropine (Lomotil) 2 tab BID PO 02/16/21 21:00 02/28/21 20:41 Divalproex Sodium (Depakote Er) 1,000 mg HS PO 02/16/21 21:00 02/28/21 20:32 Duloxetine HCl (Cymbalta) 30 mg BID PO 02/16/21 21:00 02/28/21 20:30 Fluticasone Propionate (Flonase) 2 spray DAILY NS 02/17/21 09:00 02/28/21 08:30 Furosemide (Lasix) 20 mg DAILY PO 02/17/21 09:00 02/28/21 08:26 Gabapentin (Neurontin) 300 mg QID PO 02/16/21 17:00 02/28/21 20:41 Hydroxyurea (Hydrea) 1,000 mg DAILY PO 02/17/21 09:00 02/28/21 08:28 Levetiracetam (Keppra) 250 mg BID PO 02/16/21 21:00 02/28/21 20:32 Lidocaine (Lidoderm) 1 patch DAILY TP 02/17/21 09:00 02/17/21 09:24 DC Al Hydroxide/Mg Hydroxide (Mylanta Plus Xs) 15 ml PRN AFTMEALHC PRN PO DYSPEPSIA 02/16/21 17:00 02/16/21 17:36 DC Mirabegron (Myrbetriq) 50 mg DAILY PO 02/17/21 09:00 02/28/21 08:29 Nystatin (Nystop) 1 debra BID TP 02/16/21 21:00 02/28/21 20:32 Pantoprazole Sodium (Protonix) 40 mg DAILYAC PO 02/17/21 07:30 02/28/21 08:26 Potassium Chloride (Klor-Con) 40 meq DAILY PO 02/17/21 09:00 02/28/21 08:27 Sulfasalazine (Azulfidine) 500 mg TID PO 02/16/21 21:00 02/28/21 20:41 Trazodone HCl (Desyrel) 50 mg QHS PO 02/16/21 21:00 02/28/21 20:32 Non-Formulary Medication (Albuterol Sulfate (Albuterol Sulfate Conc Neb Soln)) 1 vial PRN Q4HRS PRN NEB SHORTNESS OF BREATH 02/16/21 17:00 02/16/21 17:49 DC Ascorbic Acid (Vitamin C) 1,000 mg DAILY PO 02/17/21 09:00 02/28/21 08:29 Diltiazem HCl (Cardizem) 60 mg BID PO 02/16/21 21:00 02/28/21 20:30 Lactobacillus Rhamnosus (Culturelle) 1 cap DAILY PO 02/17/21 09:00 02/28/21 08:26 Amylase/Lipase/ Protease (Zenpep 10,000) 1 cap TIDBFRMEAL PO 02/17/21 07:30 02/28/21 15:58 Non-Formulary Medication (Magnesium Hydroxide (Milk Of Magnesia)) 2,400 mg PRN DAILY PRN PO CONSTIPATION 02/16/21 17:00 02/16/21 17:37 DC Magnesium Oxide (Magnesium Oxide) 400 mg DAILY PO 02/17/21 09:00 02/28/21 08:26 Non-Formulary Medication (Methyl Salicylate/ Menthol (Analgesic [place])) 1 debra PRN Q6HRS PRN TP MUSCLE PAIN 02/16/21 17:00 02/16/21 17:37 DC Non-Formulary Medication (Umeclidinium [place] (Incruse Ellipta)) 62.5 mcg DAILY IH 02/17/21 09:00 02/16/21 17:49 DC Non-Formulary Medication (Zinc Gluconate ) 50 mg DAILY PO 02/17/21 09:00 02/16/21 17:46 DC Albuterol/ Ipratropium (Duoneb) 3 ml RTQID NEB 02/16/21 20:00 02/17/21 19:52 DC Albuterol Sulfate (Ventolin) 2.5 mg PRN Q4HRS PRN NEB SHORTNESS OF BREATH 02/16/21 18:00 Influenza Virus Vaccine Quadrival (Flulaval Quad [id number] Syringe) 0.5 ml ONCE ONCE VAX IM 02/17/21 09:00 02/17/21 09:01 DC 02/17/21 09:21 Lidocaine (Lidoderm) 1 patch DAILY PRN TP pain 02/17/21 09:30 02/27/21 10:11 Albuterol/ Ipratropium (Combivent Respimat 20-100 Mcg) 1 puff RTQID INH 02/17/21 20:00 02/28/21 20:27 Sertraline HCl (Zoloft) 25 mg DAILY PO 02/22/21 09:00 02/24/21 10:00 DC 02/24/21 09:59 Sertraline HCl (Zoloft) 50 mg DAILY PO 02/25/21 09:00 02/28/21 08:26 Olanzapine (ZyPREXA ZYDIS) 5 mg 1X ONCE PO 02/26/21 12:03 02/26/21 12:09 DC 02/26/21 12:25 Clonazepam (KlonoPIN) 0.5 mg DAILY PO 02/28/21 09:00 03/02/21 07:00 02/28/21 08:29 Current Medications Medications (Trade) Dose Ordered Sig/Mya Route PRN Reason Start Time Stop Time Status Last Admin Dose Admin Clonazepam (KlonoPIN) 0.5 mg DAILY PO 02/28/21 09:00 03/02/21 07:00 02/28/21 08:29 I have reviewed the current psychotropics carefully including drug interactions. Risk benefit ratio favors no change other than as noted in my dictated progress note. Diagnosis: Problems: (1) Impulse control disorder, unspecified (2) Mild cognitive impairment (3) Anxiety disorder, unspecified (4) Bipolar disorder, curr episode mixed, severe, with psychotic features (5) Major depressive disorder with psychotic features NITHIN STEVENS MD Feb 28, 2021 22:45
--- NOTE | 2021-02-28 22:48 | NUR ---
Nursing Note Pt in hallway, in her chair asking to be let down, I assume she wants to got to bed. Pt leans in close to me and whispers, "Is it you? Are you dating Dr. Duffy? I can tell he likes you." I responded "Well no, of course not, we work together." She responded "Yeah right, sure..." Pt compliant with meds and assessment. Lungs coarse upper heredia no SOA and vitals stable. Pt was agitated at the start of shift trying to throw herself from the chair. Is resting well now.
[2021-03-01 05:46] VITALS: BP 124/75
[2021-03-01] MEDS: LIPASE/PROTEAS/AMYLAS 10/32/42 CAPSULE.DR. PO SCH ×3 (07:30→16:30)
[2021-03-01] MEDS: PANTOPRAZOLE 40 MG TABLET. PO SCH (07:30)
[2021-03-01] MEDS: IPRATROPIUM/ALBUTEROL 20/100mcg/INH INHALER. INH SCH ×4 (08:00→20:22)
[2021-03-01] MEDS: MAGNESIUM OXIDE 400 MG TABLET PO SCH (09:00)
[2021-03-01] MEDS: CHOLECALCIFEROL (VITAMIN D3) 50,000 UNIT CAPSULE PO SCH (09:00)
[2021-03-01] MEDS: LACTOBACILLUS RHAMNOSUS GG 1 CAPSULE. PO SCH (09:00)
[2021-03-01] MEDS: FLUTICASONE 50MCG/NASAL SPRAY 16GM BOTTLE. NS SCH (09:00)
[2021-03-01] MEDS: NYSTATIN TOPICAL POWDER 15GM BOTTLE. TP SCH ×2 (09:00→20:14)
--- NOTE | 2021-03-01 09:19 | NUR ---
Pt observed to be sleeping in bed. Mitts secured over bilat hands. O2 NC worn correctly in nose and tubing not wrapped around any part of her body, O2 at 3LPM. She appears to be absent of pain or distress. Per NOC report, pt continues to be 1:1 observation while awake. Will continue to monitor. Addendum: 03/01/21 at 1206 by SELENA NGO RN After waking pt consumed a little bit of breakfast. She is med compliant with whole medications administered directly into pt's mouth. She has been absent of self harm behaviors and statements so far this shift. 1:1 sitter within arm's reach of pt.
[2021-03-01] MEDS: DIPHENOXYLATE/ATROPINE TABLET. PO SCH ×2 (10:06→20:22)
[2021-03-01] MEDS: HYDROXYUREA 500 MG CAPSULE PO SCH (10:06)
[2021-03-01] MEDS: SERTRALINE 50 MG TABLET. PO SCH (10:07)
[2021-03-01] MEDS: dilTIAZem HCL 30 MG TABLET PO SCH ×2 (10:07→20:23)
[2021-03-01] MEDS: clonazePAM 0.5 MG TABLET PO SCH (10:07)
[2021-03-01] MEDS: MIRABEGRON 25 MG TAB.ER.24H PO SCH (10:07)
[2021-03-01] MEDS: sulfaSALAzine 500 MG TABLET PO SCH ×3 (10:07→20:21)
[2021-03-01] MEDS: DULoxetine HCL 30 MG CAPSULE.DR PO SCH ×2 (10:07→20:11)
[2021-03-01] MEDS: FUROSEMIDE 20 MG TABLET PO SCH (10:08)
[2021-03-01] MEDS: ASCORBIC ACID 1,000 MG TABLET PO SCH (10:08)
[2021-03-01] MEDS: POTASSIUM CHLORIDE 20 MEQ TABLET.ER. PO SCH (10:08)
[2021-03-01] MEDS: GABAPENTIN 300 MG CAPSULE. PO SCH ×4 (10:08→20:22)
[2021-03-01] MEDS: levETIRAcetam 250 MG TABLET PO SCH ×2 (10:08→20:13)
[2021-03-01] MEDS: DICYCLOMINE HCL 20 MG TABLET PO SCH ×3 (10:09→20:12)
[2021-03-01 15:50] VITALS: BP 98/67
--- NOTE | 2021-03-01 18:03 | NUR ---
FAUCET POLISHER voiced concern regarding pt's skin during brief changing. This nurse observed pt's tailbone area with reddened areas of excoriation. Pt has been sleeping more throughout the day in bed. Pt placed on turn schedule Q2H and foam wedge provided to assist with turning and positioning.
[2021-03-01] MEDS: DIVALPROEX ER 500 MG TAB.ER.24H PO SCH (20:11)
[2021-03-01] MEDS: traZODone 50 MG TABLET. PO SCH (20:13)
--- NOTE | 2021-03-01 21:49 | PDOC ---
Exam Note: Napoleon Note: Please also refer to the separate dictated note~for this date of service dictated separately.~Patient seen individually. Discussed the patient with Nursing staff reviewed the chart.~Reviewed interim history and current functioning. Reviewed vital signs,~Labs/ Radiology~and current medications noted below. Continue current treatment with the changes noted in the dictated addendum note Assessment: Vital Signs/I&O: Vital Signs Date Time Temp Pulse Resp B/P (MAP) Pulse Ox O2 Delivery O2 Flow Rate FiO2 03/01/21 20:23 87 98/67 03/01/21 15:50 97.6 18 91 02/28/21 15:35 2.0 02/26/21 15:31 Room Air I & O 02/28/21 02/28/21 03/01/21 15:00 23:00 07:00 Intake Total 360 ml 300 ml Balance 360 ml 300 ml Current Medications: Meds: Current Medications Medications (Trade) Dose Ordered Sig/Mya Route PRN Reason Start Time Stop Time Status Last Admin Dose Admin Acetaminophen (Tylenol) 650 mg PRN Q6HRS PRN PO MILD PAIN / TEMP > 100.3'F 02/16/21 15:45 02/18/21 06:31 Multi-Ingredient Ointment (Analgesic [place]) 1 debra PRN QID PRN TP MUSCLE PAIN 02/16/21 15:45 Al Hydroxide/Mg Hydroxide (Mylanta Plus Xs) 15 ml PRN AFTMEALHC PRN PO DYSPEPSIA 02/16/21 15:45 Magnesium Hydroxide (Milk Of Magnesia) 2,400 mg PRN QHS PRN PO 1ST CHOICE CONSTIPATION 02/16/21 15:45 Acetaminophen (Tylenol) 1,000 mg Q6HRS PRN PO pain or fever 02/16/21 17:00 02/16/21 17:35 DC Acetaminophen (Tylenol) 500 mg Q4HRS PRN PO MILD PAIN 1-3 02/16/21 17:00 02/16/21 17:36 DC Bisacodyl (Dulcolax Tab) 5 mg PRN DAILY PRN PO 2ND CHOICE CONSTIPATION 02/16/21 17:00 Vitamin D (Vitamin D3) 50,000 unit WEEKLY PO 02/22/21 09:00 02/22/21 07:16 Clonazepam (KlonoPIN) 0.5 mg BID PO 02/16/21 21:00 02/27/21 19:54 DC 02/27/21 10:11 Dicyclomine HCl (Bentyl) 20 mg TID PO 02/16/21 21:00 03/01/21 20:12 Diphenoxylate HCl/ Atropine (Lomotil) 2 tab BID PO 02/16/21 21:00 03/01/21 20:22 Divalproex Sodium (Depakote Er) 1,000 mg HS PO 02/16/21 21:00 03/01/21 20:11 Duloxetine HCl (Cymbalta) 30 mg BID PO 02/16/21 21:00 03/01/21 20:11 Fluticasone Propionate (Flonase) 2 spray DAILY NS 02/17/21 09:00 02/28/21 08:30 Furosemide (Lasix) 20 mg DAILY PO 02/17/21 09:00 03/01/21 10:08 Gabapentin (Neurontin) 300 mg QID PO 02/16/21 17:00 03/01/21 20:22 Hydroxyurea (Hydrea) 1,000 mg DAILY PO 02/17/21 09:00 03/01/21 10:06 Levetiracetam (Keppra) 250 mg BID PO 02/16/21 21:00 03/01/21 20:13 Lidocaine (Lidoderm) 1 patch DAILY TP 02/17/21 09:00 02/17/21 09:24 DC Al Hydroxide/Mg Hydroxide (Mylanta Plus Xs) 15 ml PRN AFTMEALHC PRN PO DYSPEPSIA 02/16/21 17:00 02/16/21 17:36 DC Mirabegron (Myrbetriq) 50 mg DAILY PO 02/17/21 09:00 03/01/21 10:07 Nystatin (Nystop) 1 debra BID TP 02/16/21 21:00 03/01/21 20:14 Pantoprazole Sodium (Protonix) 40 mg DAILYAC PO 02/17/21 07:30 02/28/21 08:26 Potassium Chloride (Klor-Con) 40 meq DAILY PO 02/17/21 09:00 03/01/21 10:08 Sulfasalazine (Azulfidine) 500 mg TID PO 02/16/21 21:00 03/01/21 20:21 Trazodone HCl (Desyrel) 50 mg QHS PO 02/16/21 21:00 03/01/21 20:13 Non-Formulary Medication (Albuterol Sulfate (Albuterol Sulfate Conc Neb Soln)) 1 vial PRN Q4HRS PRN NEB SHORTNESS OF BREATH 02/16/21 17:00 02/16/21 17:49 DC Ascorbic Acid (Vitamin C) 1,000 mg DAILY PO 02/17/21 09:00 03/01/21 10:08 Diltiazem HCl (Cardizem) 60 mg BID PO 02/16/21 21:00 03/01/21 10:07 Lactobacillus Rhamnosus (Culturelle) 1 cap DAILY PO 02/17/21 09:00 02/28/21 08:26 Amylase/Lipase/ Protease (Zenpep 10,000) 1 cap TIDBFRMEAL PO 02/17/21 07:30 03/01/21 11:32 Non-Formulary Medication (Magnesium Hydroxide (Milk Of Magnesia)) 2,400 mg PRN DAILY PRN PO CONSTIPATION 02/16/21 17:00 02/16/21 17:37 DC Magnesium Oxide (Magnesium Oxide) 400 mg DAILY PO 02/17/21 09:00 02/28/21 08:26 Non-Formulary Medication (Methyl Salicylate/ Menthol (Analgesic [place])) 1 debra PRN Q6HRS PRN TP MUSCLE PAIN 02/16/21 17:00 02/16/21 17:37 DC Non-Formulary Medication (Umeclidinium [place] (Incruse Ellipta)) 62.5 mcg DAILY IH 02/17/21 09:00 02/16/21 17:49 DC Non-Formulary Medication (Zinc Gluconate ) 50 mg DAILY PO 02/17/21 09:00 02/16/21 17:46 DC Albuterol/ Ipratropium (Duoneb) 3 ml RTQID NEB 02/16/21 20:00 02/17/21 19:52 DC Albuterol Sulfate (Ventolin) 2.5 mg PRN Q4HRS PRN NEB SHORTNESS OF BREATH 02/16/21 18:00 Influenza Virus Vaccine Quadrival (Flulaval Quad [id number] Syringe) 0.5 ml ONCE ONCE VAX IM 02/17/21 09:00 02/17/21 09:01 DC 02/17/21 09:21 Lidocaine (Lidoderm) 1 patch DAILY PRN TP pain 02/17/21 09:30 02/27/21 10:11 Albuterol/ Ipratropium (Combivent Respimat 20-100 Mcg) 1 puff RTQID INH 02/17/21 20:00 03/01/21 20:22 Sertraline HCl (Zoloft) 25 mg DAILY PO 02/22/21 09:00 02/24/21 10:00 DC 02/24/21 09:59 Sertraline HCl (Zoloft) 50 mg DAILY PO 02/25/21 09:00 03/01/21 18:30 DC 03/01/21 10:07 Olanzapine (ZyPREXA ZYDIS) 5 mg 1X ONCE PO 02/26/21 12:03 02/26/21 12:09 DC 02/26/21 12:25 Clonazepam (KlonoPIN) 0.5 mg DAILY PO 02/28/21 09:00 03/02/21 07:00 03/01/21 10:07 Bupropion HCl (Wellbutrin Xl) 150 mg DAILY PO 03/02/21 09:00 I have reviewed the current psychotropics carefully including drug interactions. Risk benefit ratio favors no change other than as noted in my dictated progress note. Diagnosis: Problems: (1) Impulse control disorder, unspecified (2) Mild cognitive impairment (3) Anxiety disorder, unspecified (4) Bipolar disorder, curr episode mixed, severe, with psychotic features NITHIN STEVENS MD Mar 01, 2021 21:49
[2021-03-02 06:24] VITALS: BP 108/74
[2021-03-02] MEDS: ASCORBIC ACID 1,000 MG TABLET PO SCH (09:53)
[2021-03-02] MEDS: dilTIAZem HCL 30 MG TABLET PO SCH ×2 (09:53→19:47)
[2021-03-02] MEDS: sulfaSALAzine 500 MG TABLET PO SCH ×3 (09:53→19:44)
[2021-03-02] MEDS: buPROPion XL 150 MG TAB.ER.24H PO SCH (09:53)
[2021-03-02] MEDS: levETIRAcetam 250 MG TABLET PO SCH (09:54)
[2021-03-02] MEDS: MAGNESIUM OXIDE 400 MG TABLET PO SCH (09:54)
[2021-03-02] MEDS: LACTOBACILLUS RHAMNOSUS GG 1 CAPSULE. PO SCH (09:54)
[2021-03-02] MEDS: PANTOPRAZOLE 40 MG TABLET. PO SCH (09:54)
[2021-03-02] MEDS: LIPASE/PROTEAS/AMYLAS 10/32/42 CAPSULE.DR. PO SCH ×3 (09:54→17:37)
[2021-03-02] MEDS: POTASSIUM CHLORIDE 20 MEQ TABLET.ER. PO SCH (09:54)
[2021-03-02] MEDS: DIPHENOXYLATE/ATROPINE TABLET. PO SCH ×2 (09:55→19:44)
[2021-03-02] MEDS: GABAPENTIN 300 MG CAPSULE. PO SCH ×4 (09:55→19:47)
[2021-03-02] MEDS: DULoxetine HCL 30 MG CAPSULE.DR PO SCH ×2 (09:55→19:44)
[2021-03-02] MEDS: MIRABEGRON 25 MG TAB.ER.24H PO SCH (09:55)
[2021-03-02] MEDS: FUROSEMIDE 20 MG TABLET PO SCH (09:55)
[2021-03-02] MEDS: DICYCLOMINE HCL 20 MG TABLET PO SCH ×3 (09:55→19:44)
[2021-03-02] MEDS: FLUTICASONE 50MCG/NASAL SPRAY 16GM BOTTLE. NS SCH (09:56)
[2021-03-02] MEDS: IPRATROPIUM/ALBUTEROL 20/100mcg/INH INHALER. INH SCH ×4 (09:56→19:43)
[2021-03-02] MEDS: NYSTATIN TOPICAL POWDER 15GM BOTTLE. TP SCH ×2 (10:05→19:43)
[2021-03-02] MEDS: HYDROXYUREA 500 MG CAPSULE PO SCH (10:05)
--- NOTE | 2021-03-02 10:15 | NUR ---
Provided patient with morning medications whole on a spoon. She was very disorganized and chewed some of the pills; she required a lot of cueing to drink water after having the pills in her mouth. Several minutes after taking the last pills, patient spat out several pills. These pills were partially chewed or dissolved, unable to identify which pills they were. Will continue to monitor and report to MD during rounds.
--- NOTE | 2021-03-02 11:48 | NUR ---
Treatment team update: Pt is eating roughly 25% of meals and sleeping on average 8.5 hours per night. Pt has declined in the last week physically and cognitively. Pt continues to be a 1:1 due to her recent attempt to wrap her oxygen tubing around her neck. Pt slept in this AM and was noted to have difficulty in taking her medications. Pt medications were attempted given whole and crushed in which pt spit out both times. Pt is not able to feed herself any longer and continues to have trouble keeping her oxygen on. Last night pt needed 3L as she was found sating in the 50's; typically pt remains steady on 2L. Pt chest xray does show Atelectasis; however, cannot hear it during physical assessment. It was discussed in treatment team if pt is failure to thrive; however, unsure if pt is meeting criteria for Hospice as this time. BUSTER will continue to update the facility and work with [facility]
--- NOTE | 2021-03-02 11:55 | TX PLAN ---
Interdisciplinary Tx Plan Admission Information Feb 16, 2021 at 15:29 Legal Status (on Admission): Voluntary DPOA/Guardian Name: Patel Moise Contact Other Contact Name: Chasity Nazario Other Contact Verified Code Status: DNR Allergies: Coded Allergies: butorphanol (Verified Allergy, Unknown, 02/13/20) cefoxitin (Verified Allergy, Unknown, 02/13/20) codeine (Verified Allergy, Unknown, 02/13/20) gluten (Verified Allergy, Unknown, 02/13/20) lactose (Verified Allergy, Unknown, 02/13/20) Diagnoses Primary Diagnosis: Bipolar D/O mixed Reasons for Admission: Suicidal ideation, Poor impulse control Problem in Patient's Words: N/A Additional Admission Comments: According to the intake, pt is putting herself on the floor, combative towards staff, refusing oxygen/removes the tubing, throwing medications, expressed that she wants to . Problems Active Problems: putting self on floor removing oxygen Inactive Problems: medication compliant Pt Strengths/Limitations Ability for [place]: Poor Cognitive Functioning/Ability: Fair Communication Skills/Ability: Fair Financial Resources: Fair Insight/Judgement: Poor Intellectual Ability: Fair Physical Health: Poor Social Skills: Poor Stability in Family: Poor Stability in School/Work: Poor Verbal Skills: Fair Discharge Criteria Discharge Criteria: Able meet basic life need, Adequate arrangements @DC, Improved behavior, Improved mood/thought Preliminary Discharge Plan Preliminary DC Plan: Current Living Arrange. Special Precautions Fall Risk: Moderate Initial D/C Plan Pt will return to [facility] once stable Identified Discharge Needs: None noted Currently Utilized Resources Currently Utilized Resources/P: Primary Care Physician Telehealth for psychiatry Referrals Community Resources: None Identified Problems/Hx/Goals Objectives/Short-Term Goals Short Term Goals: Dec. Outbursts, Medication Stabilization, Monitor Med Effects, Promote Coping Skill Short Term Goals in Patient's: N/A Interventions/Frequency Staff Interventions/Frequency&: Psychiatrist to assess pt at least 3x per week for medication management. Social Work to assess pt least 2x per week to identify barriers to care and discharge planning goals. Nursing to assess pt medication effect, behavior modification and complete 15 minute checks daily. Encourage participation in group activities (if applicable) or 1:1 engagement based off Activity Dept goals. 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 Education: Pt graduated high school in 1969 Community Follow-up Primary Care Physician Telehealth Treatment Plan Explained Patient/Veterans' Counselor had this treatment plan explained to him/her as indicated by the signature below and has been given the opportunity to ask questions and make suggestions: Date: Patient/Veterans' Counselor Signature: Status Update Update Pt is eating roughly 25% of meals and sleeping on average 8.5 hours per night. Pt has declined in the last week physically and cognitively. Pt continues to be a 1:1 due to her recent attempt to wrap her oxygen tubing around her neck. Pt slept in this AM and was noted to have difficulty in taking her medications. Pt medications were attempted given whole and crushed in which pt spit out both times. Pt is not able to feed herself any longer and continues to have trouble keeping her oxygen on. Last night pt needed 3L as she was found sating in the 50's; typically pt remains steady on 2L. Pt chest xray does show Atelectasis; however, cannot hear it during physical assessment. It was discussed in treatment team if pt is failure to thrive; however, unsure if pt is meeting criteria for Hospice as this time. SW will continue to update the facility and work with pt son on discharge planning back to [facility]. [place] BAUTISTA Mar 02, 2021 11:55
--- NOTE | 2021-03-02 12:10 | NUR ---
WEEKLY ACTIVITY THERAPY NOTE Date of Admission:02/16/21 Date of AT Assessment: 02/17 Precipitating behaviors that initiated intake and admission:putting self on floor, combative towards staff, refusing O2, threw medications, expresses she wants to & removes O2 Goal aimed: increase socialization and engagement Initial Goal: Pt will participate in at least three individual or group Activity Therapy sessions per week Weekly progress towards goal: did not achieve, 1/3 Group participation level: 1 min Weekly highlights: answered questions when directly prompted Saturday Behaviors observed: sleeping, quiet Plan: no change to goal Beneficial adaptations: direct prompting
--- NOTE | 2021-03-02 13:39 | NUR ---
BUSTER returned call to Louisa at [facility], who expressed concern that they are not going to be able to meet pt needs. With pt showing an increase in psych needs and being on a 1:1 for her safety, they do not have the manpower or ability to care for pt. BUSTER questioned what Alf is considered and Louisa reports that they are LTC. BUSTER questioned if that meant they are going to issue a 30-day notice and Louisa reports that they are. BUSTER will send referrals; however in the event that facilities are not able to accept pt, [facility] will have to take pt back. Louisa agreed, that will be the plan moving forward.
--- NOTE | 2021-03-02 13:42 | NUR ---
SW attempted to contact pt son and ended up leaving a message asking for him to call SW when possible.
--- NOTE | 2021-03-02 14:43 | NUR ---
Contacted Dr. Alvarado per Dr. Duffy's instructions regarding patient's medications. New order received.
[2021-03-02 16:08] VITALS: BP 107/72
--- NOTE | 2021-03-02 18:30 | NUR ---
Patient has been disorganized and confused throughout this shift. She has been resistive to medications at times. She continues on 1:1 related to potential for self harm. Will continue to monitor and report to oncoming shift.
[2021-03-02] MEDS: DIVALPROEX ER 500 MG TAB.ER.24H PO SCH (19:47)
[2021-03-02] MEDS: traZODone 50 MG TABLET. PO SCH (19:47)
--- NOTE | 2021-03-02 22:07 | PDOC ---
Exam Note: Napoleon Note: This note is a late entry for 02/28/2021 covers elements not covered in my initial note. Subjective: The patient was seen individually in the evening of 02/28/2021 with Anel BARR, discussed and reviewed the chart. The patient slept 10 hours previous night. Patient appeared medically somewhat compromised. Chest x-ray shows atelectasis. We will defer to Dr. Clark/Dr. Cheng. She has been placed in mitts so that she is not able to pull on her oxygen tubing because she pulled it really tight around her neck leaving a elbert. At times with transfer she is weight and per nursing report noted to be gamey. WBC is unremarkable. Lactic acid is unremarkable. Review of Systems: Ambulation impaired in wheelchair. Shortness of breath on O2 supplements. No CV, , eye system symptoms on review. Mental Status Exam: The patient is reasonably oriented. Speech coherent has some latency. Abstraction fair. Computation impaired. Language function intact. Mood and affect withdrawn. Denies suicidal ideation. Laboratory Data: Reviewed. Impression: Bipolar 1 disorder, depressed with psychotic features. Anxiety disorder unspecified. Impulse control disorder unspecified. Plan: Continue current psychotropics from initial note. Valproic acid level is therapeutic at 60. We will make further adjustments as clinically indicated. Assessment: Vital Signs/I&O: Vital Signs Date Time Temp Pulse Resp B/P (MAP) Pulse Ox O2 Delivery O2 Flow Rate FiO2 03/02/21 19:47 80 107/72 03/02/21 16:08 97.8 20 93 2.0 02/26/21 15:31 Room Air I & O 03/01/21 03/01/21 03/02/21 15:00 23:00 07:00 Intake Total 360 ml 0 ml 50 ml Balance 360 ml 0 ml 50 ml Current Medications: Meds: Current Medications Medications (Trade) Dose Ordered Sig/Mya Route PRN Reason Start Time Stop Time Status Last Admin Dose Admin Acetaminophen (Tylenol) 650 mg PRN Q6HRS PRN PO MILD PAIN / TEMP > 100.3'F 02/16/21 15:45 02/18/21 06:31 Multi-Ingredient Ointment (Analgesic [place]) 1 debra PRN QID PRN TP MUSCLE PAIN 02/16/21 15:45 Al Hydroxide/Mg Hydroxide (Mylanta Plus Xs) 15 ml PRN AFTMEALHC PRN PO DYSPEPSIA 02/16/21 15:45 Magnesium Hydroxide (Milk Of Magnesia) 2,400 mg PRN QHS PRN PO 1ST CHOICE CONSTIPATION 02/16/21 15:45 Acetaminophen (Tylenol) 1,000 mg Q6HRS PRN PO pain or fever 02/16/21 17:00 02/16/21 17:35 DC Acetaminophen (Tylenol) 500 mg Q4HRS PRN PO MILD PAIN 1-3 02/16/21 17:00 02/16/21 17:36 DC Bisacodyl (Dulcolax Tab) 5 mg PRN DAILY PRN PO 2ND CHOICE CONSTIPATION 02/16/21 17:00 Vitamin D (Vitamin D3) 50,000 unit WEEKLY PO 02/22/21 09:00 02/22/21 07:16 Clonazepam (KlonoPIN) 0.5 mg BID PO 02/16/21 21:00 02/27/21 19:54 DC 02/27/21 10:11 Dicyclomine HCl (Bentyl) 20 mg TID PO 02/16/21 21:00 03/02/21 19:44 Diphenoxylate HCl/ Atropine (Lomotil) 2 tab BID PO 02/16/21 21:00 03/02/21 19:44 Divalproex Sodium (Depakote Er) 1,000 mg HS PO 02/16/21 21:00 03/02/21 19:47 Duloxetine HCl (Cymbalta) 30 mg BID PO 02/16/21 21:00 03/02/21 19:44 Fluticasone Propionate (Flonase) 2 spray DAILY NS 02/17/21 09:00 03/02/21 09:56 Furosemide (Lasix) 20 mg DAILY PO 02/17/21 09:00 03/02/21 09:55 Gabapentin (Neurontin) 300 mg QID PO 02/16/21 17:00 03/02/21 19:47 Hydroxyurea (Hydrea) 1,000 mg DAILY PO 02/17/21 09:00 03/02/21 10:05 Levetiracetam (Keppra) 250 mg BID PO 02/16/21 21:00 03/02/21 14:48 DC 03/02/21 09:54 Lidocaine (Lidoderm) 1 patch DAILY TP 02/17/21 09:00 02/17/21 09:24 DC Al Hydroxide/Mg Hydroxide (Mylanta Plus Xs) 15 ml PRN AFTMEALHC PRN PO DYSPEPSIA 02/16/21 17:00 02/16/21 17:36 DC Mirabegron (Myrbetriq) 50 mg DAILY PO 02/17/21 09:00 03/02/21 09:55 Nystatin (Nystop) 1 debra BID TP 02/16/21 21:00 03/02/21 19:43 Pantoprazole Sodium (Protonix) 40 mg DAILYAC PO 02/17/21 07:30 03/02/21 09:54 Potassium Chloride (Klor-Con) 40 meq DAILY PO 02/17/21 09:00 03/02/21 09:54 Sulfasalazine (Azulfidine) 500 mg TID PO 02/16/21 21:00 03/02/21 19:44 Trazodone HCl (Desyrel) 50 mg QHS PO 02/16/21 21:00 03/02/21 19:47 Non-Formulary Medication (Albuterol Sulfate (Albuterol Sulfate Conc Neb Soln)) 1 vial PRN Q4HRS PRN NEB SHORTNESS OF BREATH 02/16/21 17:00 02/16/21 17:49 DC Ascorbic Acid (Vitamin C) 1,000 mg DAILY PO 02/17/21 09:00 03/02/21 09:53 Diltiazem HCl (Cardizem) 60 mg BID PO 02/16/21 21:00 03/02/21 09:53 Lactobacillus Rhamnosus (Culturelle) 1 cap DAILY PO 02/17/21 09:00 03/02/21 09:54 Amylase/Lipase/ Protease (Zenpep 10,000) 1 cap TIDBFRMEAL PO 02/17/21 07:30 03/02/21 17:37 Non-Formulary Medication (Magnesium Hydroxide (Milk Of Magnesia)) 2,400 mg PRN DAILY PRN PO CONSTIPATION 02/16/21 17:00 02/16/21 17:37 DC Magnesium Oxide (Magnesium Oxide) 400 mg DAILY PO 02/17/21 09:00 03/02/21 09:54 Non-Formulary Medication (Methyl Salicylate/ Menthol (Analgesic [place])) 1 debra PRN Q6HRS PRN TP MUSCLE PAIN 02/16/21 17:00 02/16/21 17:37 DC Non-Formulary Medication (Umeclidinium [place] (Incruse Ellipta)) 62.5 mcg DAILY IH 02/17/21 09:00 02/16/21 17:49 DC Non-Formulary Medication (Zinc Gluconate ) 50 mg DAILY PO 02/17/21 09:00 02/16/21 17:46 DC Albuterol/ Ipratropium (Duoneb) 3 ml RTQID NEB 02/16/21 20:00 02/17/21 19:52 DC Albuterol Sulfate (Ventolin) 2.5 mg PRN Q4HRS PRN NEB SHORTNESS OF BREATH 02/16/21 18:00 Influenza Virus Vaccine Quadrival (Flulaval Quad [id number] Syringe) 0.5 ml ONCE ONCE VAX IM 02/17/21 09:00 02/17/21 09:01 DC 02/17/21 09:21 Lidocaine (Lidoderm) 1 patch DAILY PRN TP pain 02/17/21 09:30 02/27/21 10:11 Albuterol/ Ipratropium (Combivent Respimat 20-100 Mcg) 1 puff RTQID INH 02/17/21 20:00 03/02/21 19:43 Sertraline HCl (Zoloft) 25 mg DAILY PO 02/22/21 09:00 02/24/21 10:00 DC 02/24/21 09:59 Sertraline HCl (Zoloft) 50 mg DAILY PO 02/25/21 09:00 03/01/21 18:30 DC 03/01/21 10:07 Olanzapine (ZyPREXA ZYDIS) 5 mg 1X ONCE PO 02/26/21 12:03 02/26/21 12:09 DC 02/26/21 12:25 Clonazepam (KlonoPIN) 0.5 mg DAILY PO 02/28/21 09:00 03/02/21 07:00 DC 03/01/21 10:07 Bupropion HCl (Wellbutrin Xl) 150 mg DAILY PO 03/02/21 09:00 03/02/21 09:53 Levetiracetam (Keppra) 250 mg DAILY PO 03/03/21 09:00 Current Medications Medications (Trade) Dose Ordered Sig/Mya Route PRN Reason Start Time Stop Time Status Last Admin Dose Admin Bupropion HCl (Wellbutrin Xl) 150 mg DAILY PO 03/02/21 09:00 03/02/21 09:53 I have reviewed the current psychotropics carefully including drug interactions. Risk benefit ratio favors no change other than as noted in my dictated progress note. Diagnosis: Problems: (1) Bipolar affective, depress, sev w/ psych (2) Anxiety disorder, unspecified (3) Impulse control disorder, unspecified NITHIN STEVENS MD Mar 02, 2021 22:07
--- NOTE | 2021-03-02 22:29 | PDOC ---
Exam Note: Napoleon Note: Please also refer to the separate dictated note~for this date of service dictated separately.~Patient seen individually. Discussed the patient with Nursing staff reviewed the chart.~Reviewed interim history and current functioning. Reviewed vital signs,~Labs/ Radiology~and current medications noted below. Continue current treatment with the changes noted in the dictated addendum note Assessment: Vital Signs/I&O: Vital Signs Date Time Temp Pulse Resp B/P (MAP) Pulse Ox O2 Delivery O2 Flow Rate FiO2 03/02/21 19:47 80 107/72 03/02/21 16:08 97.8 20 93 2.0 02/26/21 15:31 Room Air I & O 03/01/21 03/01/21 03/02/21 15:00 23:00 07:00 Intake Total 360 ml 0 ml 50 ml Balance 360 ml 0 ml 50 ml Current Medications: Meds: Current Medications Medications (Trade) Dose Ordered Sig/Mya Route PRN Reason Start Time Stop Time Status Last Admin Dose Admin Acetaminophen (Tylenol) 650 mg PRN Q6HRS PRN PO MILD PAIN / TEMP > 100.3'F 02/16/21 15:45 02/18/21 06:31 Multi-Ingredient Ointment (Analgesic [place]) 1 debra PRN QID PRN TP MUSCLE PAIN 02/16/21 15:45 Al Hydroxide/Mg Hydroxide (Mylanta Plus Xs) 15 ml PRN AFTMEALHC PRN PO DYSPEPSIA 02/16/21 15:45 Magnesium Hydroxide (Milk Of Magnesia) 2,400 mg PRN QHS PRN PO 1ST CHOICE CONSTIPATION 02/16/21 15:45 Acetaminophen (Tylenol) 1,000 mg Q6HRS PRN PO pain or fever 02/16/21 17:00 02/16/21 17:35 DC Acetaminophen (Tylenol) 500 mg Q4HRS PRN PO MILD PAIN 1-3 02/16/21 17:00 02/16/21 17:36 DC Bisacodyl (Dulcolax Tab) 5 mg PRN DAILY PRN PO 2ND CHOICE CONSTIPATION 02/16/21 17:00 Vitamin D (Vitamin D3) 50,000 unit WEEKLY PO 02/22/21 09:00 02/22/21 07:16 Clonazepam (KlonoPIN) 0.5 mg BID PO 02/16/21 21:00 02/27/21 19:54 DC 02/27/21 10:11 Dicyclomine HCl (Bentyl) 20 mg TID PO 02/16/21 21:00 03/02/21 19:44 Diphenoxylate HCl/ Atropine (Lomotil) 2 tab BID PO 02/16/21 21:00 03/02/21 19:44 Divalproex Sodium (Depakote Er) 1,000 mg HS PO 02/16/21 21:00 03/02/21 19:47 Duloxetine HCl (Cymbalta) 30 mg BID PO 02/16/21 21:00 03/02/21 19:44 Fluticasone Propionate (Flonase) 2 spray DAILY NS 02/17/21 09:00 03/02/21 09:56 Furosemide (Lasix) 20 mg DAILY PO 02/17/21 09:00 03/02/21 09:55 Gabapentin (Neurontin) 300 mg QID PO 02/16/21 17:00 03/02/21 19:47 Hydroxyurea (Hydrea) 1,000 mg DAILY PO 02/17/21 09:00 03/02/21 10:05 Levetiracetam (Keppra) 250 mg BID PO 02/16/21 21:00 03/02/21 14:48 DC 03/02/21 09:54 Lidocaine (Lidoderm) 1 patch DAILY TP 02/17/21 09:00 02/17/21 09:24 DC Al Hydroxide/Mg Hydroxide (Mylanta Plus Xs) 15 ml PRN AFTMEALHC PRN PO DYSPEPSIA 02/16/21 17:00 02/16/21 17:36 DC Mirabegron (Myrbetriq) 50 mg DAILY PO 02/17/21 09:00 03/02/21 09:55 Nystatin (Nystop) 1 debra BID TP 02/16/21 21:00 03/02/21 19:43 Pantoprazole Sodium (Protonix) 40 mg DAILYAC PO 02/17/21 07:30 03/02/21 09:54 Potassium Chloride (Klor-Con) 40 meq DAILY PO 02/17/21 09:00 03/02/21 09:54 Sulfasalazine (Azulfidine) 500 mg TID PO 02/16/21 21:00 03/02/21 19:44 Trazodone HCl (Desyrel) 50 mg QHS PO 02/16/21 21:00 03/02/21 19:47 Non-Formulary Medication (Albuterol Sulfate (Albuterol Sulfate Conc Neb Soln)) 1 vial PRN Q4HRS PRN NEB SHORTNESS OF BREATH 02/16/21 17:00 02/16/21 17:49 DC Ascorbic Acid (Vitamin C) 1,000 mg DAILY PO 02/17/21 09:00 03/02/21 09:53 Diltiazem HCl (Cardizem) 60 mg BID PO 02/16/21 21:00 03/02/21 09:53 Lactobacillus Rhamnosus (Culturelle) 1 cap DAILY PO 02/17/21 09:00 03/02/21 09:54 Amylase/Lipase/ Protease (Zenpep 10,000) 1 cap TIDBFRMEAL PO 02/17/21 07:30 03/02/21 17:37 Non-Formulary Medication (Magnesium Hydroxide (Milk Of Magnesia)) 2,400 mg PRN DAILY PRN PO CONSTIPATION 02/16/21 17:00 02/16/21 17:37 DC Magnesium Oxide (Magnesium Oxide) 400 mg DAILY PO 02/17/21 09:00 03/02/21 09:54 Non-Formulary Medication (Methyl Salicylate/ Menthol (Analgesic [place])) 1 debra PRN Q6HRS PRN TP MUSCLE PAIN 02/16/21 17:00 02/16/21 17:37 DC Non-Formulary Medication (Umeclidinium [place] (Incruse Ellipta)) 62.5 mcg DAILY IH 02/17/21 09:00 02/16/21 17:49 DC Non-Formulary Medication (Zinc Gluconate ) 50 mg DAILY PO 02/17/21 09:00 02/16/21 17:46 DC Albuterol/ Ipratropium (Duoneb) 3 ml RTQID NEB 02/16/21 20:00 02/17/21 19:52 DC Albuterol Sulfate (Ventolin) 2.5 mg PRN Q4HRS PRN NEB SHORTNESS OF BREATH 02/16/21 18:00 Influenza Virus Vaccine Quadrival (Flulaval Quad [id number] Syringe) 0.5 ml ONCE ONCE VAX IM 02/17/21 09:00 02/17/21 09:01 DC 02/17/21 09:21 Lidocaine (Lidoderm) 1 patch DAILY PRN TP pain 02/17/21 09:30 02/27/21 10:11 Albuterol/ Ipratropium (Combivent Respimat 20-100 Mcg) 1 puff RTQID INH 02/17/21 20:00 03/02/21 19:43 Sertraline HCl (Zoloft) 25 mg DAILY PO 02/22/21 09:00 02/24/21 10:00 DC 02/24/21 09:59 Sertraline HCl (Zoloft) 50 mg DAILY PO 02/25/21 09:00 03/01/21 18:30 DC 03/01/21 10:07 Olanzapine (ZyPREXA ZYDIS) 5 mg 1X ONCE PO 02/26/21 12:03 02/26/21 12:09 DC 02/26/21 12:25 Clonazepam (KlonoPIN) 0.5 mg DAILY PO 02/28/21 09:00 03/02/21 07:00 DC 03/01/21 10:07 Bupropion HCl (Wellbutrin Xl) 150 mg DAILY PO 03/02/21 09:00 03/02/21 09:53 Levetiracetam (Keppra) 250 mg DAILY PO 03/03/21 09:00 Current Medications Medications (Trade) Dose Ordered Sig/Mya Route PRN Reason Start Time Stop Time Status Last Admin Dose Admin Bupropion HCl (Wellbutrin Xl) 150 mg DAILY PO 03/02/21 09:00 03/02/21 09:53 I have reviewed the current psychotropics carefully including drug interactions. Risk benefit ratio favors no change other than as noted in my dictated progress note. Diagnosis: Problems: (1) Impulse control disorder, unspecified (2) Anxiety disorder, unspecified (3) Bipolar disorder, curr episode mixed, severe, with psychotic features (4) Major depressive disorder with psychotic features NITHIN STEVENS MD Mar 02, 2021 22:29
--- NOTE | 2021-03-02 23:51 | NUR ---
Patient is located in the hallway outside the hospital for behavioral medicine on assumption of care, sitting 1:1 with staff for safety. She is flat, withdrawn. Answers assessment question with one word answers. She remains on 3L of O2 via NC, and is maintaining sats above 90%. She has had no agitated or attention seeking behaviors so far this shift. Denies SI. Denies any pain or discomfort. She was compliant with assessments. Needed cueing several times to take medications, which were given a few at a time on a spoon. Patient appears to be sleeping comfortably at present time. Will continue to monitor.
[2021-03-03 06:00] VITALS: BP 121/73
[2021-03-03] MEDS: NYSTATIN TOPICAL POWDER 15GM BOTTLE. TP SCH ×2 (08:30→21:08)
[2021-03-03] MEDS: MIRABEGRON 25 MG TAB.ER.24H PO SCH (08:30)
[2021-03-03] MEDS: FLUTICASONE 50MCG/NASAL SPRAY 16GM BOTTLE. NS SCH (08:30)
[2021-03-03] MEDS: IPRATROPIUM/ALBUTEROL 20/100mcg/INH INHALER. INH SCH ×4 (08:30→21:10)
[2021-03-03] MEDS: buPROPion XL 150 MG TAB.ER.24H PO SCH (08:31)
[2021-03-03] MEDS: sulfaSALAzine 500 MG TABLET PO SCH ×3 (08:31→21:07)
[2021-03-03] MEDS: dilTIAZem HCL 30 MG TABLET PO SCH ×2 (08:31→21:08)
[2021-03-03] MEDS: MAGNESIUM OXIDE 400 MG TABLET PO SCH (08:31)
[2021-03-03] MEDS: LIPASE/PROTEAS/AMYLAS 10/32/42 CAPSULE.DR. PO SCH ×3 (08:31→17:12)
[2021-03-03] MEDS: POTASSIUM CHLORIDE 20 MEQ TABLET.ER. PO SCH (08:32)
[2021-03-03] MEDS: GABAPENTIN 300 MG CAPSULE. PO SCH ×4 (08:32→21:07)
[2021-03-03] MEDS: LACTOBACILLUS RHAMNOSUS GG 1 CAPSULE. PO SCH (08:32)
[2021-03-03] MEDS: FUROSEMIDE 20 MG TABLET PO SCH (08:32)
[2021-03-03] MEDS: PANTOPRAZOLE 40 MG TABLET. PO SCH (08:32)
[2021-03-03] MEDS: DICYCLOMINE HCL 20 MG TABLET PO SCH ×3 (08:32→21:07)
[2021-03-03] MEDS: DIPHENOXYLATE/ATROPINE TABLET. PO SCH ×2 (08:33→21:08)
[2021-03-03] MEDS: HYDROXYUREA 500 MG CAPSULE PO SCH (08:33)
[2021-03-03] MEDS: DULoxetine HCL 30 MG CAPSULE.DR PO SCH ×2 (08:33→21:07)
[2021-03-03] MEDS: ASCORBIC ACID 1,000 MG TABLET PO SCH (08:34)
[2021-03-03] MEDS: levETIRAcetam 250 MG TABLET PO SCH (08:34)
--- NOTE | 2021-03-03 08:34 | PDOC ---
Exam Note: Napoleon Note: This note is a late entry for 03/01/2021 covers elements not covered in my initial note. Subjective: The patient was seen individually in the evening of 03/01/2021 with Cheryl BARR, discussed and reviewed the chart. The patient slept 7-1/2 hours previous night. She has been on one-on-one status while awake and has had her mitts in place. By the time I saw her in the evening, the mitts had been removed. She denied suicidal ideation. I met with her in her room. She is compliant with medications. She ate no breakfast. Lunch is 75%. No dinner. She is sedated at times. Review of Systems: Ambulation impaired. Shortness of breath on O2 supplements. No CV, , eye system symptoms on review. Mental Status Exam: The patient is oriented to herself and situation. Speech coherent, moderate latency, low in rate and rhythm, low in volume. Abstraction fair. Computation impaired. Language function intact. Mood and affect still somewhat withdrawn. Laboratory Data: Reviewed. Impression: Bipolar 1 disorder, depressed with psychotic features. Anxiety disorder unspecified. Impulse control disorder unspecified. Plan: Change the Zoloft 50 mg a day to Wellbutrin XL 150 mg in the morning. This should be more activating, energizing for her and we will adjust this further. Continue Depakote and Cymbalta for now. Klonopin is being tapered and stopped given her sedation. Assessment: Vital Signs/I&O: Vital Signs Date Time Temp Pulse Resp B/P (MAP) Pulse Ox O2 Delivery O2 Flow Rate FiO2 03/03/21 06:00 98.2 74 18 121/73 (89) 93 3.0 02/26/21 15:31 Room Air I & O 03/02/21 03/02/21 03/03/21 15:00 23:00 07:00 Intake Total 120 ml 120 ml Balance 120 ml 120 ml Current Medications: Meds: Current Medications Medications (Trade) Dose Ordered Sig/Mya Route PRN Reason Start Time Stop Time Status Last Admin Dose Admin Acetaminophen (Tylenol) 650 mg PRN Q6HRS PRN PO MILD PAIN / TEMP > 100.3'F 02/16/21 15:45 02/18/21 06:31 Multi-Ingredient Ointment (Analgesic [place]) 1 debra PRN QID PRN TP MUSCLE PAIN 10/7/21 15:45 Al Hydroxide/Mg Hydroxide (Mylanta Plus Xs) 15 ml PRN AFTMEALHC PRN PO DYSPEPSIA 02/16/21 15:45 Magnesium Hydroxide (Milk Of Magnesia) 2,400 mg PRN QHS PRN PO 1ST CHOICE CONSTIPATION 02/16/21 15:45 Acetaminophen (Tylenol) 1,000 mg Q6HRS PRN PO pain or fever 02/16/21 17:00 02/16/21 17:35 DC Acetaminophen (Tylenol) 500 mg Q4HRS PRN PO MILD PAIN 1-3 02/16/21 17:00 02/16/21 17:36 DC Bisacodyl (Dulcolax Tab) 5 mg PRN DAILY PRN PO 2ND CHOICE CONSTIPATION 02/16/21 17:00 Vitamin D (Vitamin D3) 50,000 unit WEEKLY PO 02/22/21 09:00 02/22/21 07:16 Clonazepam (KlonoPIN) 0.5 mg BID PO 02/16/21 21:00 02/27/21 19:54 DC 02/27/21 10:11 Dicyclomine HCl (Bentyl) 20 mg TID PO 02/16/21 21:00 03/02/21 19:44 Diphenoxylate HCl/ Atropine (Lomotil) 2 tab BID PO 02/16/21 21:00 03/02/21 19:44 Divalproex Sodium (Depakote Er) 1,000 mg HS PO 02/16/21 21:00 03/02/21 19:47 Duloxetine HCl (Cymbalta) 30 mg BID PO 02/16/21 21:00 03/02/21 19:44 Fluticasone Propionate (Flonase) 2 spray DAILY NS 02/17/21 09:00 03/02/21 09:56 Furosemide (Lasix) 20 mg DAILY PO 02/17/21 09:00 03/02/21 09:55 Gabapentin (Neurontin) 300 mg QID PO 02/16/21 17:00 03/02/21 19:47 Hydroxyurea (Hydrea) 1,000 mg DAILY PO 02/17/21 09:00 03/02/21 10:05 Levetiracetam (Keppra) 250 mg BID PO 02/16/21 21:00 03/02/21 14:48 DC 03/02/21 09:54 Lidocaine (Lidoderm) 1 patch DAILY TP 02/17/21 09:00 02/17/21 09:24 DC Al Hydroxide/Mg Hydroxide (Mylanta Plus Xs) 15 ml PRN AFTMEALHC PRN PO DYSPEPSIA 02/16/21 17:00 02/16/21 17:36 DC Mirabegron (Myrbetriq) 50 mg DAILY PO 02/17/21 09:00 03/02/21 09:55 Nystatin (Nystop) 1 debra BID TP 02/16/21 21:00 03/02/21 19:43 Pantoprazole Sodium (Protonix) 40 mg DAILYAC PO 02/17/21 07:30 03/02/21 09:54 Potassium Chloride (Klor-Con) 40 meq DAILY PO 02/17/21 09:00 03/02/21 09:54 Sulfasalazine (Azulfidine) 500 mg TID PO 02/16/21 21:00 03/02/21 19:44 Trazodone HCl (Desyrel) 50 mg QHS PO 02/16/21 21:00 03/02/21 19:47 Non-Formulary Medication (Albuterol Sulfate (Albuterol Sulfate Conc Neb Soln)) 1 vial PRN Q4HRS PRN NEB SHORTNESS OF BREATH 02/16/21 17:00 02/16/21 17:49 DC Ascorbic Acid (Vitamin C) 1,000 mg DAILY PO 02/17/21 09:00 03/02/21 09:53 Diltiazem HCl (Cardizem) 60 mg BID PO 02/16/21 21:00 03/02/21 09:53 Lactobacillus Rhamnosus (Culturelle) 1 cap DAILY PO 02/17/21 09:00 03/02/21 09:54 Amylase/Lipase/ Protease (Zenpep 10,000) 1 cap TIDBFRMEAL PO 02/17/21 07:30 03/02/21 17:37 Non-Formulary Medication (Magnesium Hydroxide (Milk Of Magnesia)) 2,400 mg PRN DAILY PRN PO CONSTIPATION 02/16/21 17:00 02/16/21 17:37 DC Magnesium Oxide (Magnesium Oxide) 400 mg DAILY PO 02/17/21 09:00 03/02/21 09:54 Non-Formulary Medication (Methyl Salicylate/ Menthol (Analgesic [place])) 1 debra PRN Q6HRS PRN TP MUSCLE PAIN 02/16/21 17:00 02/16/21 17:37 DC Non-Formulary Medication (Umeclidinium [place] (Incruse Ellipta)) 62.5 mcg DAILY IH 02/17/21 09:00 02/16/21 17:49 DC Non-Formulary Medication (Zinc Gluconate ) 50 mg DAILY PO 02/17/21 09:00 02/16/21 17:46 DC Albuterol/ Ipratropium (Duoneb) 3 ml RTQID NEB 02/16/21 20:00 02/17/21 19:52 DC Albuterol Sulfate (Ventolin) 2.5 mg PRN Q4HRS PRN NEB SHORTNESS OF BREATH 02/16/21 18:00 Influenza Virus Vaccine Quadrival (Flulaval Quad [id number] Syringe) 0.5 ml ONCE ONCE VAX IM 02/17/21 09:00 02/17/21 09:01 DC 02/17/21 09:21 Lidocaine (Lidoderm) 1 patch DAILY PRN TP pain 02/17/21 09:30 02/27/21 10:11 Albuterol/ Ipratropium (Combivent Respimat 20-100 Mcg) 1 puff RTQID INH 02/17/21 20:00 03/02/21 19:43 Sertraline HCl (Zoloft) 25 mg DAILY PO 02/22/21 09:00 02/24/21 10:00 DC 02/24/21 09:59 Sertraline HCl (Zoloft) 50 mg DAILY PO 02/25/21 09:00 03/01/21 18:30 DC 03/01/21 10:07 Olanzapine (ZyPREXA ZYDIS) 5 mg 1X ONCE PO 02/26/21 12:03 02/26/21 12:09 DC 02/26/21 12:25 Clonazepam (KlonoPIN) 0.5 mg DAILY PO 02/28/21 09:00 03/02/21 07:00 DC 03/01/21 10:07 Bupropion HCl (Wellbutrin Xl) 150 mg DAILY PO 03/02/21 09:00 03/02/21 09:53 Levetiracetam (Keppra) 250 mg DAILY PO 03/03/21 09:00 Current Medications Medications (Trade) Dose Ordered Sig/Mya Route PRN Reason Start Time Stop Time Status Last Admin Dose Admin Bupropion HCl (Wellbutrin Xl) 150 mg DAILY PO 03/02/21 09:00 03/02/21 09:53 I have reviewed the current psychotropics carefully including drug interactions. Risk benefit ratio favors no change other than as noted in my dictated progress note. Diagnosis: Problems: (1) Bipolar affective, depress, sev w/ psych (2) Anxiety disorder, unspecified (3) Impulse control disorder, unspecified (4) Mild cognitive impairment NITHIN STEVENS MD Mar 03, 2021 08:34
--- NOTE | 2021-03-03 08:53 | NUR ---
Patient did not take most of her morning medications, she held some in her mouth then spat them out. She had difficulty eating breakfast as well. Will report to MD during rounds and continue to monitor.
--- NOTE | 2021-03-03 09:22 | NUR ---
SW received call from pt son/DPOA, Patel re: an update on pt. SW notified Patel that pt facility informed SW that they do not feel they can maintain pt at their facility any longer. Patel questioned if they wanted her in the first place considering they have sent her out multiple times and he never knows until the day it happens. SW went over pt behaviors and concern for decline in cognition and possibly medical. Pt son will follow up with [facility] and requested that SW send referrals within an hour distance from [place]: includes [facility], and surrounding areas.
--- NOTE | 2021-03-03 14:30 | NUR ---
Patient has been drowsy and withdrawn to room. Afternoon medications provided per eMAR floated in pudding. ENVIRONMENTAL SERVICES TECHNICIAN reports patient vomited up three pills. Will continue to monitor and discuss with speech therapy
[2021-03-03 15:50] VITALS: BP 144/84
[2021-03-03] MEDS: DIVALPROEX ER 500 MG TAB.ER.24H PO SCH (21:07)
[2021-03-03] MEDS: traZODone 50 MG TABLET. PO SCH (21:07)
--- NOTE | 2021-03-03 21:43 | PDOC ---
Exam Note: Napoleon Note: Please also refer to the separate dictated note~for this date of service dictated separately.~Patient seen individually. Discussed the patient with Nursing staff reviewed the chart.~Reviewed interim history and current functioning. Reviewed vital signs,~Labs/ Radiology~and current medications noted below. Continue current treatment with the changes noted in the dictated addendum note Assessment: Vital Signs/I&O: Vital Signs Date Time Temp Pulse Resp B/P (MAP) Pulse Ox O2 Delivery O2 Flow Rate FiO2 03/03/21 21:08 99 144/84 03/03/21 15:50 98.3 19 92 03/03/21 06:00 3.0 02/26/21 15:31 Room Air I & O 03/02/21 03/02/21 03/03/21 15:00 23:00 07:00 Intake Total 120 ml 120 ml Balance 120 ml 120 ml Current Medications: Meds: Current Medications Medications (Trade) Dose Ordered Sig/Mya Route PRN Reason Start Time Stop Time Status Last Admin Dose Admin Acetaminophen (Tylenol) 650 mg PRN Q6HRS PRN PO MILD PAIN / TEMP > 100.3'F 02/16/21 15:45 02/18/21 06:31 Multi-Ingredient Ointment (Analgesic [place]) 1 debra PRN QID PRN TP MUSCLE PAIN 02/16/21 15:45 Al Hydroxide/Mg Hydroxide (Mylanta Plus Xs) 15 ml PRN AFTMEALHC PRN PO DYSPEPSIA 02/16/21 15:45 Magnesium Hydroxide (Milk Of Magnesia) 2,400 mg PRN QHS PRN PO 1ST CHOICE CONSTIPATION 02/16/21 15:45 Acetaminophen (Tylenol) 1,000 mg Q6HRS PRN PO pain or fever 02/16/21 17:00 02/16/21 17:35 DC Acetaminophen (Tylenol) 500 mg Q4HRS PRN PO MILD PAIN 1-3 02/16/21 17:00 02/16/21 17:36 DC Bisacodyl (Dulcolax Tab) 5 mg PRN DAILY PRN PO 2ND CHOICE CONSTIPATION 02/16/21 17:00 Vitamin D (Vitamin D3) 50,000 unit WEEKLY PO 02/22/21 09:00 02/22/21 07:16 Clonazepam (KlonoPIN) 0.5 mg BID PO 02/16/21 21:00 02/27/21 19:54 DC 02/27/21 10:11 Dicyclomine HCl (Bentyl) 20 mg TID PO 02/16/21 21:00 03/03/21 21:07 Diphenoxylate HCl/ Atropine (Lomotil) 2 tab BID PO 02/16/21 21:00 03/03/21 21:08 Divalproex Sodium (Depakote Er) 1,000 mg HS PO 02/16/21 21:00 03/03/21 21:07 Duloxetine HCl (Cymbalta) 30 mg BID PO 02/16/21 21:00 03/03/21 21:07 Fluticasone Propionate (Flonase) 2 spray DAILY NS 02/17/21 09:00 03/03/21 08:30 Furosemide (Lasix) 20 mg DAILY PO 02/17/21 09:00 03/03/21 08:32 Gabapentin (Neurontin) 300 mg QID PO 02/16/21 17:00 03/03/21 21:07 Hydroxyurea (Hydrea) 1,000 mg DAILY PO 02/17/21 09:00 03/03/21 08:33 Levetiracetam (Keppra) 250 mg BID PO 02/16/21 21:00 03/02/21 14:48 DC 03/02/21 09:54 Lidocaine (Lidoderm) 1 patch DAILY TP 02/17/21 09:00 02/17/21 09:24 DC Al Hydroxide/Mg Hydroxide (Mylanta Plus Xs) 15 ml PRN AFTMEALHC PRN PO DYSPEPSIA 02/16/21 17:00 02/16/21 17:36 DC Mirabegron (Myrbetriq) 50 mg DAILY PO 02/17/21 09:00 03/03/21 08:30 Nystatin (Nystop) 1 debra BID TP 02/16/21 21:00 03/03/21 21:08 Pantoprazole Sodium (Protonix) 40 mg DAILYAC PO 02/17/21 07:30 03/03/21 08:32 Potassium Chloride (Klor-Con) 40 meq DAILY PO 02/17/21 09:00 03/03/21 08:32 Sulfasalazine (Azulfidine) 500 mg TID PO 02/16/21 21:00 03/03/21 21:07 Trazodone HCl (Desyrel) 50 mg QHS PO 02/16/21 21:00 03/03/21 21:07 Non-Formulary Medication (Albuterol Sulfate (Albuterol Sulfate Conc Neb Soln)) 1 vial PRN Q4HRS PRN NEB SHORTNESS OF BREATH 02/16/21 17:00 02/16/21 17:49 DC Ascorbic Acid (Vitamin C) 1,000 mg DAILY PO 02/17/21 09:00 03/03/21 08:34 Diltiazem HCl (Cardizem) 60 mg BID PO 02/16/21 21:00 03/03/21 21:08 Lactobacillus Rhamnosus (Culturelle) 1 cap DAILY PO 02/17/21 09:00 03/03/21 08:32 Amylase/Lipase/ Protease (Zenpep 10,000) 1 cap TIDBFRMEAL PO 02/17/21 07:30 03/03/21 17:12 Non-Formulary Medication (Magnesium Hydroxide (Milk Of Magnesia)) 2,400 mg PRN DAILY PRN PO CONSTIPATION 02/16/21 17:00 02/16/21 17:37 DC Magnesium Oxide (Magnesium Oxide) 400 mg DAILY PO 02/17/21 09:00 03/03/21 08:31 Non-Formulary Medication (Methyl Salicylate/ Menthol (Analgesic [place])) 1 debra PRN Q6HRS PRN TP MUSCLE PAIN 02/16/21 17:00 02/16/21 17:37 DC Non-Formulary Medication (Umeclidinium [place] (Incruse Ellipta)) 62.5 mcg DAILY IH 02/17/21 09:00 02/16/21 17:49 DC Non-Formulary Medication (Zinc Gluconate ) 50 mg DAILY PO 02/17/21 09:00 02/16/21 17:46 DC Albuterol/ Ipratropium (Duoneb) 3 ml RTQID NEB 02/16/21 20:00 02/17/21 19:52 DC Albuterol Sulfate (Ventolin) 2.5 mg PRN Q4HRS PRN NEB SHORTNESS OF BREATH 02/16/21 18:00 Influenza Virus Vaccine Quadrival (Flulaval Quad Syringe) 0.5 ml ONCE ONCE VAX IM 02/17/21 09:00 02/17/21 09:01 DC 02/17/21 09:21 Lidocaine (Lidoderm) 1 patch DAILY PRN TP pain 02/17/21 09:30 02/27/21 10:11 Albuterol/ Ipratropium (Combivent Respimat 20-100 Mcg) 1 puff RTQID INH 02/17/21 20:00 03/03/21 21:10 Sertraline HCl (Zoloft) 25 mg DAILY PO 02/22/21 09:00 02/24/21 10:00 DC 02/24/21 09:59 Sertraline HCl (Zoloft) 50 mg DAILY PO 02/25/21 09:00 03/01/21 18:30 DC 03/01/21 10:07 Olanzapine (ZyPREXA ZYDIS) 5 mg 1X ONCE PO 02/26/21 12:03 02/26/21 12:09 DC 02/26/21 12:25 Clonazepam (KlonoPIN) 0.5 mg DAILY PO 02/28/21 09:00 03/02/21 07:00 DC 03/01/21 10:07 Bupropion HCl (Wellbutrin Xl) 150 mg DAILY PO 03/02/21 09:00 03/03/21 08:31 Levetiracetam (Keppra) 250 mg DAILY PO 03/03/21 09:00 03/03/21 08:34 Current Medications Medications (Trade) Dose Ordered Sig/Mya Route PRN Reason Start Time Stop Time Status Last Admin Dose Admin Levetiracetam (Keppra) 250 mg DAILY PO 03/03/21 09:00 03/03/21 08:34 I have reviewed the current psychotropics carefully including drug interactions. Risk benefit ratio favors no change other than as noted in my dictated progress note. Diagnosis: Problems: (1) Impulse control disorder, unspecified (2) Mild cognitive impairment (3) Anxiety disorder, unspecified (4) Bipolar affective, depress, sev w/ psych NITHIN STEVENS MD Mar 03, 2021 21:43
--- NOTE | 2021-03-04 03:11 | NUR ---
Nursing Note The patient was located in her room for her assessment and medication pass. The patient declined to respond to assessment questions. The patient was compliant with her medications but had difficulty swallowing larger medications even with applesauce. The patient is currently sleeping in her room.
[2021-03-04 06:02] VITALS: BP 128/82
[2021-03-04] MEDS: HYDROXYUREA 500 MG CAPSULE PO SCH (09:13)
[2021-03-04] MEDS: sulfaSALAzine 500 MG TABLET PO SCH ×3 (09:13→21:45)
[2021-03-04] MEDS: buPROPion XL 150 MG TAB.ER.24H PO SCH (09:14)
[2021-03-04] MEDS: PANTOPRAZOLE 40 MG TABLET. PO SCH (09:37)
[2021-03-04] MEDS: levETIRAcetam 250 MG TABLET PO SCH (09:37)
[2021-03-04] MEDS: LIPASE/PROTEAS/AMYLAS 10/32/42 CAPSULE.DR. PO SCH ×3 (09:37→17:32)
[2021-03-04] MEDS: DULoxetine HCL 30 MG CAPSULE.DR PO SCH ×2 (09:37→21:42)
[2021-03-04] MEDS: GABAPENTIN 300 MG CAPSULE. PO SCH ×4 (09:37→21:42)
[2021-03-04] MEDS: IPRATROPIUM/ALBUTEROL 20/100mcg/INH INHALER. INH SCH ×4 (09:38→21:42)
[2021-03-04] MEDS: FLUTICASONE 50MCG/NASAL SPRAY 16GM BOTTLE. NS SCH (09:38)
[2021-03-04] MEDS: dilTIAZem HCL 30 MG TABLET PO SCH ×2 (09:38→21:43)
[2021-03-04] MEDS: NYSTATIN TOPICAL POWDER 15GM BOTTLE. TP SCH ×2 (09:38→21:43)
[2021-03-04 11:35] LABS: BASO % 0 % (0-3); EOS % 0 % (0-3); HEMATOCRIT 37.6 % (36.0-47.0); HEMOGLOBIN 12.6 g/dL (12.0-15.5); LYMPH # 0.4 x10^3/uL (1.0-4.8); LYMPH % 7 % (24-48); MEAN CORPUSCULAR HEMOGLOBIN 36 pg (25-35); MEAN CORPUSCULAR HGB CONC 33 g/dL (31-37); MEAN CORPUSCULAR VOLUME 109 fL (79-100); MONO # 0.5 x10^3/uL (0.0-1.1); MONO % 8 % (0-9); NEUT % 84 % (31-73); PLATELET COUNT 183 x10^3/uL (140-400); RED BLOOD COUNT 3.45 x10^6/uL (3.50-5.40); RED CELL DISTRIBUTION WIDTH 17.6 % (11.5-14.5); WHITE BLOOD COUNT 5.9 x10^3/uL (4.0-11.0)
[2021-03-04 11:44] LABS: ALBUMIN 2.6 g/dL (3.4-5.0); ALBUMIN/GLOBULIN RATIO 0.6 (1.0-1.7); CALCIUM 9.2 mg/dL (8.5-10.1); CREATININE 0.5 mg/dL (0.6-1.0); GFR 122.3; POTASSIUM 3.2 mmol/L (3.5-5.1); TOTAL BILIRUBIN 0.4 mg/dL (0.2-1.0); TOTAL PROTEIN 6.7 g/dL (6.4-8.2)
[2021-03-04 15:13] VITALS: BP 126/78
--- NOTE | 2021-03-04 17:50 | NUR ---
Patient has been very disorganized, generally calm, and cooperative today. She was less lethargic and more interactive this morning; then withdrawn to her room after lunch. Medications were provided in applesauce, patient tolerated this well. Will continue to monitor and report to oncoming shift.
[2021-03-04] MEDS: DIVALPROEX ER 500 MG TAB.ER.24H PO SCH (21:43)
[2021-03-04] MEDS: traZODone 50 MG TABLET. PO SCH (21:43)
[2021-03-04 21:58] VITALS: BP 131/83
--- NOTE | 2021-03-04 22:07 | PDOC ---
Exam Note: Napoleon Note: Please also refer to the separate dictated note~for this date of service dictated separately.~Patient seen individually. Discussed the patient with Nursing staff reviewed the chart.~Reviewed interim history and current functioning. Reviewed vital signs,~Labs/ Radiology~and current medications noted below. Continue current treatment with the changes noted in the dictated addendum note Assessment: Vital Signs/I&O: Vital Signs Date Time Temp Pulse Resp B/P (MAP) Pulse Ox O2 Delivery O2 Flow Rate FiO2 03/04/21 21:58 99.5 97 16 131/83 (99) 91 Nasal Cannula 2.0 I & O 03/03/21 03/03/21 03/04/21 15:00 23:00 07:00 Intake Total 360 ml 480 ml Balance 360 ml 480 ml Labs: Laboratory Tests Test 03/04/21 11:04 White Blood Count 5.9 x10^3/uL (4.0-11.0) Red Blood Count 3.45 x10^6/uL (3.50-5.40) L Hemoglobin 12.6 g/dL (12.0-15.5) Hematocrit 37.6 % (36.0-47.0) Mean Corpuscular Volume 109 fL (79-100) H Mean Corpuscular Hemoglobin 36 pg (25-35) H Mean Corpuscular Hemoglobin Concent 33 g/dL (31-37) Red Cell Distribution Width 17.6 % (11.5-14.5) H Platelet Count 183 x10^3/uL (140-400) Neutrophils (%) (Auto) 84 % (31-73) H Lymphocytes (%) (Auto) 7 % (24-48) L Monocytes (%) (Auto) 8 % (0-9) Eosinophils (%) (Auto) 0 % (0-3) Basophils (%) (Auto) 0 % (0-3) Neutrophils # (Auto) 5.0 x10^3uL (1.8-7.7) Lymphocytes # (Auto) 0.4 x10^3/uL (1.0-4.8) L Monocytes # (Auto) 0.5 x10^3/uL (0.0-1.1) Eosinophils # (Auto) 0.0 x10^3/uL (0.0-0.7) Basophils # (Auto) 0.0 x10^3/uL (0.0-0.2) Sodium Level 142 mmol/L (136-145) Potassium Level 3.2 mmol/L (3.5-5.1) L Chloride Level 102 mmol/L (98-107) Carbon Dioxide Level 34 mmol/L (21-32) H Anion Gap 6 (6-14) Blood Urea Nitrogen 15 mg/dL (7-20) Creatinine 0.5 mg/dL (0.6-1.0) L Estimated GFR (Cockcroft-Gault) 122.3 BUN/Creatinine Ratio 30 (6-20) H Glucose Level 160 mg/dL (70-99) H Calcium Level 9.2 mg/dL (8.5-10.1) Total Bilirubin 0.4 mg/dL (0.2-1.0) Aspartate Amino Transferase (AST) 21 U/L (15-37) Alanine Aminotransferase (ALT) 38 U/L (14-59) Alkaline Phosphatase 281 U/L (46-116) H Total Protein 6.7 g/dL (6.4-8.2) Albumin 2.6 g/dL (3.4-5.0) L Albumin/Globulin Ratio 0.6 (1.0-1.7) L Current Medications: Meds: Laboratory Tests Test 03/04/21 11:04 White Blood Count 5.9 x10^3/uL Red Blood Count 3.45 x10^6/uL Hemoglobin 12.6 g/dL Hematocrit 37.6 % Mean Corpuscular Volume 109 fL Mean Corpuscular Hemoglobin 36 pg Mean Corpuscular Hemoglobin Concent 33 g/dL Red Cell Distribution Width 17.6 % Platelet Count 183 x10^3/uL Neutrophils (%) (Auto) 84 % Lymphocytes (%) (Auto) 7 % Monocytes (%) (Auto) 8 % Eosinophils (%) (Auto) 0 % Basophils (%) (Auto) 0 % Neutrophils # (Auto) 5.0 x10^3uL Lymphocytes # (Auto) 0.4 x10^3/uL Monocytes # (Auto) 0.5 x10^3/uL Eosinophils # (Auto) 0.0 x10^3/uL Basophils # (Auto) 0.0 x10^3/uL Sodium Level 142 mmol/L Potassium Level 3.2 mmol/L Chloride Level 102 mmol/L Carbon Dioxide Level 34 mmol/L Anion Gap 6 Blood Urea Nitrogen 15 mg/dL Creatinine 0.5 mg/dL Estimated GFR (Cockcroft-Gault) 122.3 BUN/Creatinine Ratio 30 Glucose Level 160 mg/dL Calcium Level 9.2 mg/dL Total Bilirubin 0.4 mg/dL Aspartate Amino Transf (AST/SGOT) 21 U/L Alanine Aminotransferase (ALT/SGPT) 38 U/L Alkaline Phosphatase 281 U/L Total Protein 6.7 g/dL Albumin 2.6 g/dL Albumin/Globulin Ratio 0.6 Current Medications Medications (Trade) Dose Ordered Sig/Mya Route PRN Reason Start Time Stop Time Status Last Admin Dose Admin Acetaminophen (Tylenol) 650 mg PRN Q6HRS PRN PO MILD PAIN / TEMP > 100.3'F 02/16/21 15:45 03/04/21 09:21 DC 02/18/21 06:31 Multi-Ingredient Ointment (Analgesic [place]) 1 debra PRN QID PRN TP MUSCLE PAIN 02/16/21 15:45 03/04/21 09:21 DC Al Hydroxide/Mg Hydroxide (Mylanta Plus Xs) 15 ml PRN AFTMEALHC PRN PO DYSPEPSIA 02/16/21 15:45 03/04/21 22:05 Magnesium Hydroxide (Milk Of Magnesia) 2,400 mg PRN QHS PRN PO 1ST CHOICE CONSTIPATION 02/16/21 15:45 03/04/21 09:21 DC Acetaminophen (Tylenol) 1,000 mg Q6HRS PRN PO pain or fever 02/16/21 17:00 02/16/21 17:35 DC Acetaminophen (Tylenol) 500 mg Q4HRS PRN PO MILD PAIN 1-3 02/16/21 17:00 02/16/21 17:36 DC Bisacodyl (Dulcolax Tab) 5 mg PRN DAILY PRN PO 2ND CHOICE CONSTIPATION 02/16/21 17:00 03/04/21 09:21 DC Vitamin D (Vitamin D3) 50,000 unit WEEKLY PO 02/22/21 09:00 03/04/21 09:21 DC 02/22/21 07:16 Clonazepam (KlonoPIN) 0.5 mg BID PO 02/16/21 21:00 02/27/21 19:54 DC 02/27/21 10:11 Dicyclomine HCl (Bentyl) 20 mg TID PO 02/16/21 21:00 03/04/21 09:21 DC 03/03/21 21:07 Diphenoxylate HCl/ Atropine (Lomotil) 2 tab BID PO 02/16/21 21:00 03/04/21 09:21 DC 03/03/21 21:08 Divalproex Sodium (Depakote Er) 1,000 mg HS PO 02/16/21 21:00 03/04/21 21:43 Duloxetine HCl (Cymbalta) 30 mg BID PO 02/16/21 21:00 03/04/21 21:42 Fluticasone Propionate (Flonase) 2 spray DAILY NS 02/17/21 09:00 03/04/21 09:38 Furosemide (Lasix) 20 mg DAILY PO 02/17/21 09:00 03/04/21 09:21 DC 03/03/21 08:32 Gabapentin (Neurontin) 300 mg QID PO 02/16/21 17:00 03/04/21 21:42 Hydroxyurea (Hydrea) 1,000 mg DAILY PO 02/17/21 09:00 03/04/21 09:13 Levetiracetam (Keppra) 250 mg BID PO 02/16/21 21:00 03/02/21 14:48 DC 03/02/21 09:54 Lidocaine (Lidoderm) 1 patch DAILY TP 02/17/21 09:00 02/17/21 09:24 DC Al Hydroxide/Mg Hydroxide (Mylanta Plus Xs) 15 ml PRN AFTMEALHC PRN PO DYSPEPSIA 02/16/21 17:00 02/16/21 17:36 DC Mirabegron (Myrbetriq) 50 mg DAILY PO 02/17/21 09:00 03/04/21 09:21 DC 03/03/21 08:30 Nystatin (Nystop) 1 debra BID TP 02/16/21 21:00 03/04/21 21:43 Pantoprazole Sodium (Protonix) 40 mg DAILYAC PO 02/17/21 07:30 03/04/21 09:37 Potassium Chloride (Klor-Con) 40 meq DAILY PO 02/17/21 09:00 03/04/21 09:21 DC 03/03/21 08:32 Sulfasalazine (Azulfidine) 500 mg TID PO 02/16/21 21:00 03/04/21 21:45 Trazodone HCl (Desyrel) 50 mg QHS PO 02/16/21 21:00 03/04/21 21:43 Non-Formulary Medication (Albuterol Sulfate (Albuterol Sulfate Conc Neb Soln)) 1 vial PRN Q4HRS PRN NEB SHORTNESS OF BREATH 02/16/21 17:00 02/16/21 17:49 DC Ascorbic Acid (Vitamin C) 1,000 mg DAILY PO 02/17/21 09:00 03/04/21 09:21 DC 03/03/21 08:34 Diltiazem HCl (Cardizem) 60 mg BID PO 02/16/21 21:00 03/04/21 21:43 Lactobacillus Rhamnosus (Culturelle) 1 cap DAILY PO 02/17/21 09:00 03/04/21 09:21 DC 03/03/21 08:32 Amylase/Lipase/ Protease (Zenpep 10,000) 1 cap TIDBFRMEAL PO 02/17/21 07:30 03/04/21 17:32 Non-Formulary Medication (Magnesium Hydroxide (Milk Of Magnesia)) 2,400 mg PRN DAILY PRN PO CONSTIPATION 02/16/21 17:00 02/16/21 17:37 DC Magnesium Oxide (Magnesium Oxide) 400 mg DAILY PO 02/17/21 09:00 03/04/21 09:21 DC 03/03/21 08:31 Non-Formulary Medication (Methyl Salicylate/ Menthol (Analgesic Ivor)) 1 debra PRN Q6HRS PRN TP MUSCLE PAIN 02/16/21 17:00 02/16/21 17:37 DC Non-Formulary Medication (Umeclidinium [place] (Incruse Ellipta)) 62.5 mcg DAILY IH 02/17/21 09:00 02/16/21 17:49 DC Non-Formulary Medication (Zinc Gluconate ) 50 mg DAILY PO 02/17/21 09:00 02/16/21 17:46 DC Albuterol/ Ipratropium (Duoneb) 3 ml RTQID NEB 02/16/21 20:00 02/17/21 19:52 DC Albuterol Sulfate (Ventolin) 2.5 mg PRN Q4HRS PRN NEB SHORTNESS OF BREATH 02/16/21 18:00 Influenza Virus Vaccine Quadrival (Flulaval Quad Syringe) 0.5 ml ONCE ONCE VAX IM 02/17/21 09:00 02/17/21 09:01 DC 02/17/21 09:21 Lidocaine (Lidoderm) 1 patch DAILY PRN TP pain 02/17/21 09:30 02/27/21 10:11 Albuterol/ Ipratropium (Combivent Respimat 20-100 Mcg) 1 puff RTQID INH 02/17/21 20:00 03/04/21 21:42 Sertraline HCl (Zoloft) 25 mg DAILY PO 02/22/21 09:00 02/24/21 10:00 DC 02/24/21 09:59 Sertraline HCl (Zoloft) 50 mg DAILY PO 02/25/21 09:00 03/01/21 18:30 DC 03/01/21 10:07 Olanzapine (ZyPREXA ZYDIS) 5 mg 1X ONCE PO 02/26/21 12:03 02/26/21 12:09 DC 02/26/21 12:25 Clonazepam (KlonoPIN) 0.5 mg DAILY PO 02/28/21 09:00 03/02/21 07:00 DC 03/01/21 10:07 Bupropion HCl (Wellbutrin Xl) 150 mg DAILY PO 03/02/21 09:00 03/04/21 09:14 Levetiracetam (Keppra) 250 mg DAILY PO 03/03/21 09:00 03/04/21 09:37 Aripiprazole (Abilify) 5 mg DAILY PO 03/05/21 09:00 I have reviewed the current psychotropics carefully including drug interactions. Risk benefit ratio favors no change other than as noted in my dictated progress note. Diagnosis: Problems: (1) Mild cognitive impairment (2) Impulse control disorder, unspecified (3) Anxiety disorder, unspecified (4) Bipolar disorder, curr episode mixed, severe, with psychotic features NITHIN STEVENS MD Mar 04, 2021 22:07
--- NOTE | 2021-03-05 03:13 | NUR ---
Nursing Note The patient was located in her room for her assessment and medication pass. The patient was drowsy during interactions and was able to answer name only during assessment. The patient was compliant with her medications but had difficulty swallowing larger medications even with applesauce. The patient is currently sleeping in her room.
[2021-03-05 05:48] VITALS: BP 132/76
[2021-03-05] MEDS: levETIRAcetam 250 MG TABLET PO SCH (08:10)
[2021-03-05] MEDS: IPRATROPIUM/ALBUTEROL 20/100mcg/INH INHALER. INH SCH ×4 (08:10→20:18)
[2021-03-05] MEDS: buPROPion XL 150 MG TAB.ER.24H PO SCH (08:10)
[2021-03-05] MEDS: DULoxetine HCL 30 MG CAPSULE.DR PO SCH ×3 (08:10→22:07)
[2021-03-05] MEDS: dilTIAZem HCL 30 MG TABLET PO SCH ×3 (08:10→22:07)
[2021-03-05] MEDS: LIPASE/PROTEAS/AMYLAS 10/32/42 CAPSULE.DR. PO SCH ×3 (08:10→16:48)
[2021-03-05] MEDS: PANTOPRAZOLE 40 MG TABLET. PO SCH (08:10)
[2021-03-05] MEDS: sulfaSALAzine 500 MG TABLET PO SCH ×4 (08:11→22:07)
[2021-03-05] MEDS: FLUTICASONE 50MCG/NASAL SPRAY 16GM BOTTLE. NS SCH (08:11)
[2021-03-05] MEDS: ARIPiprazole 5 MG TABLET PO SCH (08:12)
[2021-03-05] MEDS: GABAPENTIN 300 MG CAPSULE. PO SCH ×5 (08:12→22:07)
[2021-03-05] MEDS: HYDROXYUREA 500 MG CAPSULE PO SCH (08:12)
--- NOTE | 2021-03-05 08:42 | PDOC ---
Exam Note: Napoleon Note: This note is a late entry for 03/02/2021 covers elements not covered in my initial note. Subjective: The patient was reviewed at treatment team meeting individually in the morning on 03/02/2021 with Jessie BARR, Deputy Bailiff, Lety Farley, Rosalva Hutton, and Archana Dillard (social worker health services), Bessy, activity therapy and Hadley BARR, discussed and reviewed the chart. The patient slept 9-1/2 hours previous night. Average sleep 8-1/2 hours. She ate little for breakfast. Oxygen has been increased from 2 L to 3 L. Previous evening she pulled her oxygen off and saturation stopped into the 50s. We will consult Dr. Alvarado, Neurology given her history of seizure disorder and wonder whether some of her anti-seizure meds could be reduced since this seems to be sedating her. Chest x-ray shows an atelectasis. She remains disorganized, gets about 20 pills in the morning per nursing staff and we will help clarify with Dr. Clark/Dr. Cheng and the pharmacy staff whether this could be simplified since the patient resents getting as many pills in the morning. Also discussed with Dipesh BARR in the evening. She remains on one-on-one during the day. Review of Systems: Ambulation impaired. Shortness of breath on O2 supplements. No CV, , eye system symptoms on review. Mental Status Exam: The patient is reasonably oriented to herself and situation. Speech has some latency. I met with her in her room in the evening. Abstraction fair. Computation impaired. Language function intact. Attention span short. Mood and affect withdrawn. Laboratory Data: Reviewed. Impression: Bipolar disorder, depressed with psychotic features. Anxiety disorder unspecified. Impulse control disorder unspecified. Plan: Continue the patient on her current psychotropics. Received informed consent. Adjust further as clinically indicated. Continue to monitor closely for suicidal ideation. Assessment: Vital Signs/I&O: Vital Signs Date Time Temp Pulse Resp B/P (MAP) Pulse Ox O2 Delivery O2 Flow Rate FiO2 03/05/21 08:10 87 132/76 03/05/21 05:48 98.6 20 90 2.0 03/04/21 21:58 Nasal Cannula I & O 03/04/21 03/04/21 03/05/21 15:00 23:00 07:00 Intake Total 300 ml 360 ml Balance 300 ml 360 ml Labs: Laboratory Tests Test 03/04/21 11:04 White Blood Count 5.9 x10^3/uL (4.0-11.0) Red Blood Count 3.45 x10^6/uL (3.50-5.40) L Hemoglobin 12.6 g/dL (12.0-15.5) Hematocrit 37.6 % (36.0-47.0) Mean Corpuscular Volume 109 fL (79-100) H Mean Corpuscular Hemoglobin 36 pg (25-35) H Mean Corpuscular Hemoglobin Concent 33 g/dL (31-37) Red Cell Distribution Width 17.6 % (11.5-14.5) H Platelet Count 183 x10^3/uL (140-400) Neutrophils (%) (Auto) 84 % (31-73) H Lymphocytes (%) (Auto) 7 % (24-48) L Monocytes (%) (Auto) 8 % (0-9) Eosinophils (%) (Auto) 0 % (0-3) Basophils (%) (Auto) 0 % (0-3) Neutrophils # (Auto) 5.0 x10^3uL (1.8-7.7) Lymphocytes # (Auto) 0.4 x10^3/uL (1.0-4.8) L Monocytes # (Auto) 0.5 x10^3/uL (0.0-1.1) Eosinophils # (Auto) 0.0 x10^3/uL (0.0-0.7) Basophils # (Auto) 0.0 x10^3/uL (0.0-0.2) Sodium Level 142 mmol/L (136-145) Potassium Level 3.2 mmol/L (3.5-5.1) L Chloride Level 102 mmol/L (98-107) Carbon Dioxide Level 34 mmol/L (21-32) H Anion Gap 6 (6-14) Blood Urea Nitrogen 15 mg/dL (7-20) Creatinine 0.5 mg/dL (0.6-1.0) L Estimated GFR (Cockcroft-Gault) 122.3 BUN/Creatinine Ratio 30 (6-20) H Glucose Level 160 mg/dL (70-99) H Calcium Level 9.2 mg/dL (8.5-10.1) Total Bilirubin 0.4 mg/dL (0.2-1.0) Aspartate Amino Transferase (AST) 21 U/L (15-37) Alanine Aminotransferase (ALT) 38 U/L (14-59) Alkaline Phosphatase 281 U/L (46-116) H Total Protein 6.7 g/dL (6.4-8.2) Albumin 2.6 g/dL (3.4-5.0) L Albumin/Globulin Ratio 0.6 (1.0-1.7) L Current Medications: Meds: Laboratory Tests Test 03/04/21 11:04 White Blood Count 5.9 x10^3/uL Red Blood Count 3.45 x10^6/uL Hemoglobin 12.6 g/dL Hematocrit 37.6 % Mean Corpuscular Volume 109 fL Mean Corpuscular Hemoglobin 36 pg Mean Corpuscular Hemoglobin Concent 33 g/dL Red Cell Distribution Width 17.6 % Platelet Count 183 x10^3/uL Neutrophils (%) (Auto) 84 % Lymphocytes (%) (Auto) 7 % Monocytes (%) (Auto) 8 % Eosinophils (%) (Auto) 0 % Basophils (%) (Auto) 0 % Neutrophils # (Auto) 5.0 x10^3uL Lymphocytes # (Auto) 0.4 x10^3/uL Monocytes # (Auto) 0.5 x10^3/uL Eosinophils # (Auto) 0.0 x10^3/uL Basophils # (Auto) 0.0 x10^3/uL Sodium Level 142 mmol/L Potassium Level 3.2 mmol/L Chloride Level 102 mmol/L Carbon Dioxide Level 34 mmol/L Anion Gap 6 Blood Urea Nitrogen 15 mg/dL Creatinine 0.5 mg/dL Estimated GFR (Cockcroft-Gault) 122.3 BUN/Creatinine Ratio 30 Glucose Level 160 mg/dL Calcium Level 9.2 mg/dL Total Bilirubin 0.4 mg/dL Aspartate Amino Transf (AST/SGOT) 21 U/L Alanine Aminotransferase (ALT/SGPT) 38 U/L Alkaline Phosphatase 281 U/L Total Protein 6.7 g/dL Albumin 2.6 g/dL Albumin/Globulin Ratio 0.6 Current Medications Medications (Trade) Dose Ordered Sig/Mya Route PRN Reason Start Time Stop Time Status Last Admin Dose Admin Acetaminophen (Tylenol) 650 mg PRN Q6HRS PRN PO MILD PAIN / TEMP > 100.3'F 02/16/21 15:45 03/04/21 09:21 DC 02/18/21 06:31 Multi-Ingredient Ointment (Analgesic [place]) 1 debra PRN QID PRN TP MUSCLE PAIN 02/16/21 15:45 03/04/21 09:21 DC Al Hydroxide/Mg Hydroxide (Mylanta Plus Xs) 15 ml PRN AFTMEALHC PRN PO DYSPEPSIA 02/16/21 15:45 03/04/21 22:05 Magnesium Hydroxide (Milk Of Magnesia) 2,400 mg PRN QHS PRN PO 1ST CHOICE CONSTIPATION 02/16/21 15:45 03/04/21 09:21 DC Acetaminophen (Tylenol) 1,000 mg Q6HRS PRN PO pain or fever 02/16/21 17:00 02/16/21 17:35 DC Acetaminophen (Tylenol) 500 mg Q4HRS PRN PO MILD PAIN 1-3 02/16/21 17:00 02/16/21 17:36 DC Bisacodyl (Dulcolax Tab) 5 mg PRN DAILY PRN PO 2ND CHOICE CONSTIPATION 02/16/21 17:00 03/04/21 09:21 DC Vitamin D (Vitamin D3) 50,000 unit WEEKLY PO 02/22/21 09:00 03/04/21 09:21 DC 02/22/21 07:16 Clonazepam (KlonoPIN) 0.5 mg BID PO 02/16/21 21:00 02/27/21 19:54 DC 02/27/21 10:11 Dicyclomine HCl (Bentyl) 20 mg TID PO 02/16/21 21:00 03/04/21 09:21 DC 03/03/21 21:07 Diphenoxylate HCl/ Atropine (Lomotil) 2 tab BID PO 02/16/21 21:00 03/04/21 09:21 DC 03/03/21 21:08 Divalproex Sodium (Depakote Er) 1,000 mg HS PO 02/16/21 21:00 03/04/21 21:43 Duloxetine HCl (Cymbalta) 30 mg BID PO 02/16/21 21:00 03/05/21 08:10 Fluticasone Propionate (Flonase) 2 spray DAILY NS 02/17/21 09:00 03/05/21 08:11 Furosemide (Lasix) 20 mg DAILY PO 02/17/21 09:00 03/04/21 09:21 DC 03/03/21 08:32 Gabapentin (Neurontin) 300 mg QID PO 02/16/21 17:00 03/05/21 08:12 Hydroxyurea (Hydrea) 1,000 mg DAILY PO 02/17/21 09:00 03/05/21 08:12 Levetiracetam (Keppra) 250 mg BID PO 02/16/21 21:00 03/02/21 14:48 DC 03/02/21 09:54 Lidocaine (Lidoderm) 1 patch DAILY TP 02/17/21 09:00 02/17/21 09:24 DC Al Hydroxide/Mg Hydroxide (Mylanta Plus Xs) 15 ml PRN AFTMEALHC PRN PO DYSPEPSIA 02/16/21 17:00 02/16/21 17:36 DC Mirabegron (Myrbetriq) 50 mg DAILY PO 02/17/21 09:00 03/04/21 09:21 DC 03/03/21 08:30 Nystatin (Nystop) 1 debra BID TP 02/16/21 21:00 03/04/21 21:43 Pantoprazole Sodium (Protonix) 40 mg DAILYAC PO 02/17/21 07:30 03/05/21 08:10 Potassium Chloride (Klor-Con) 40 meq DAILY PO 02/17/21 09:00 03/04/21 09:21 DC 03/03/21 08:32 Sulfasalazine (Azulfidine) 500 mg TID PO 02/16/21 21:00 03/05/21 08:11 Trazodone HCl (Desyrel) 50 mg QHS PO 02/16/21 21:00 03/04/21 21:43 Non-Formulary Medication (Albuterol Sulfate (Albuterol Sulfate Conc Neb Soln)) 1 vial PRN Q4HRS PRN NEB SHORTNESS OF BREATH 02/16/21 17:00 02/16/21 17:49 DC Ascorbic Acid (Vitamin C) 1,000 mg DAILY PO 02/17/21 09:00 03/04/21 09:21 DC 03/03/21 08:34 Diltiazem HCl (Cardizem) 60 mg BID PO 02/16/21 21:00 03/05/21 08:10 Lactobacillus Rhamnosus (Culturelle) 1 cap DAILY PO 02/17/21 09:00 03/04/21 09:21 DC 03/03/21 08:32 Amylase/Lipase/ Protease (Zenpep 10,000) 1 cap TIDBFRMEAL PO 02/17/21 07:30 03/05/21 08:10 Non-Formulary Medication (Magnesium Hydroxide (Milk Of Magnesia)) 2,400 mg PRN DAILY PRN PO CONSTIPATION 02/16/21 17:00 02/16/21 17:37 DC Magnesium Oxide (Magnesium Oxide) 400 mg DAILY PO 02/17/21 09:00 03/04/21 09:21 DC 03/03/21 08:31 Non-Formulary Medication (Methyl Salicylate/ Menthol (Analgesic [place]berg)) 1 debra PRN Q6HRS PRN TP MUSCLE PAIN 02/16/21 17:00 02/16/21 17:37 DC Non-Formulary Medication (Umeclidinium [place] (Incruse Ellipta)) 62.5 mcg DAILY IH 02/17/21 09:00 02/16/21 17:49 DC Non-Formulary Medication (Zinc Gluconate ) 50 mg DAILY PO 02/17/21 09:00 02/16/21 17:46 DC Albuterol/ Ipratropium (Duoneb) 3 ml RTQID NEB 02/16/21 20:00 02/17/21 19:52 DC Albuterol Sulfate (Ventolin) 2.5 mg PRN Q4HRS PRN NEB SHORTNESS OF BREATH 02/16/21 18:00 Influenza Virus Vaccine Quadrival (Flulaval Quad [id number] Syringe) 0.5 ml ONCE ONCE VAX IM 02/17/21 09:00 02/17/21 09:01 DC 02/17/21 09:21 Lidocaine (Lidoderm) 1 patch DAILY PRN TP pain 02/17/21 09:30 02/27/21 10:11 Albuterol/ Ipratropium (Combivent Respimat 20-100 Mcg) 1 puff RTQID INH 02/17/21 20:00 03/05/21 08:10 Sertraline HCl (Zoloft) 25 mg DAILY PO 02/22/21 09:00 02/24/21 10:00 DC 02/24/21 09:59 Sertraline HCl (Zoloft) 50 mg DAILY PO 02/25/21 09:00 03/01/21 18:30 DC 03/01/21 10:07 Olanzapine (ZyPREXA ZYDIS) 5 mg 1X ONCE PO 02/26/21 12:03 02/26/21 12:09 DC 02/26/21 12:25 Clonazepam (KlonoPIN) 0.5 mg DAILY PO 02/28/21 09:00 03/02/21 07:00 DC 03/01/21 10:07 Bupropion HCl (Wellbutrin Xl) 150 mg DAILY PO 03/02/21 09:00 03/05/21 08:10 Levetiracetam (Keppra) 250 mg DAILY PO 03/03/21 09:00 03/05/21 08:10 Aripiprazole (Abilify) 5 mg DAILY PO 03/05/21 09:00 03/05/21 08:12 Current Medications Medications (Trade) Dose Ordered Sig/Mya Route PRN Reason Start Time Stop Time Status Last Admin Dose Admin Aripiprazole (Abilify) 5 mg DAILY PO 03/05/21 09:00 03/05/21 08:12 I have reviewed the current psychotropics carefully including drug interactions. Risk benefit ratio favors no change other than as noted in my dictated progress note. Diagnosis: Problems: (1) Bipolar affective, depress, sev w/ psych (2) Anxiety disorder, unspecified (3) Impulse control disorder, unspecified NITHIN STEVENS MD Mar 05, 2021 08:42
--- NOTE | 2021-03-05 09:04 | PDOC ---
Exam Note: Napoleon Note: This note is a late entry for 03/03/2021 covers elements not covered in my initial note. Subjective: The patient was seen individually in the evening of 03/03/2021 with Kyle BARR, discussed and reviewed the chart. The patient slept 8-1/2 hours previous night. I met with the patient in her room. She is lactose intolerant. She is on a gluten-free diet as well. She takes her medications crushed in apple sauce. She often pulls off her oxygen. O2 saturations dropped fairly rapidly. We will check labs for dehydration. Reportedly she threw herself out of her chair and bed at one time, but no suicidal ideation. Review of Systems: Ambulation impaired. Shortness of breath on O2 supplements. No CV, , eye, ENT system symptoms on review. Mental Status Exam: The patient is reasonably oriented to herself and sit uation. Speech has moderate latency. Often response is monosyllabic. Abstraction fair. Computation impaired. Language function intact. Mood and affect withdrawn. Laboratory Data: Reviewed. Impression: Bipolar disorder, depressed with psychotic features. Anxiety disorder unspecified. Impulse control disorder unspecified. Plan: Continue the patient on her current psychotropics including Cymbalta, Wellbutrin, Keppra for seizures, Depakote for bipolar disorder. We need to increase Wellbutrin in due course. We will also augment with Abilify. Assessment: Vital Signs/I&O: Vital Signs Date Time Temp Pulse Resp B/P (MAP) Pulse Ox O2 Delivery O2 Flow Rate FiO2 03/05/21 08:10 87 132/76 03/05/21 05:48 98.6 20 90 2.0 03/04/21 21:58 Nasal Cannula I & O 03/04/21 03/04/21 03/05/21 15:00 23:00 07:00 Intake Total 300 ml 360 ml Balance 300 ml 360 ml Labs: Laboratory Tests Test 03/04/21 11:04 White Blood Count 5.9 x10^3/uL (4.0-11.0) Red Blood Count 3.45 x10^6/uL (3.50-5.40) L Hemoglobin 12.6 g/dL (12.0-15.5) Hematocrit 37.6 % (36.0-47.0) Mean Corpuscular Volume 109 fL (79-100) H Mean Corpuscular Hemoglobin 36 pg (25-35) H Mean Corpuscular Hemoglobin Concent 33 g/dL (31-37) Red Cell Distribution Width 17.6 % (11.5-14.5) H Platelet Count 183 x10^3/uL (140-400) Neutrophils (%) (Auto) 84 % (31-73) H Lymphocytes (%) (Auto) 7 % (24-48) L Monocytes (%) (Auto) 8 % (0-9) Eosinophils (%) (Auto) 0 % (0-3) Basophils (%) (Auto) 0 % (0-3) Neutrophils # (Auto) 5.0 x10^3uL (1.8-7.7) Lymphocytes # (Auto) 0.4 x10^3/uL (1.0-4.8) L Monocytes # (Auto) 0.5 x10^3/uL (0.0-1.1) Eosinophils # (Auto) 0.0 x10^3/uL (0.0-0.7) Basophils # (Auto) 0.0 x10^3/uL (0.0-0.2) Sodium Level 142 mmol/L (136-145) Potassium Level 3.2 mmol/L (3.5-5.1) L Chloride Level 102 mmol/L (98-107) Carbon Dioxide Level 34 mmol/L (21-32) H Anion Gap 6 (6-14) Blood Urea Nitrogen 15 mg/dL (7-20) Creatinine 0.5 mg/dL (0.6-1.0) L Estimated GFR (Cockcroft-Gault) 122.3 BUN/Creatinine Ratio 30 (6-20) H Glucose Level 160 mg/dL (70-99) H Calcium Level 9.2 mg/dL (8.5-10.1) Total Bilirubin 0.4 mg/dL (0.2-1.0) Aspartate Amino Transferase (AST) 21 U/L (15-37) Alanine Aminotransferase (ALT) 38 U/L (14-59) Alkaline Phosphatase 281 U/L (46-116) H Total Protein 6.7 g/dL (6.4-8.2) Albumin 2.6 g/dL (3.4-5.0) L Albumin/Globulin Ratio 0.6 (1.0-1.7) L Current Medications: Meds: Laboratory Tests Test 03/04/21 11:04 White Blood Count 5.9 x10^3/uL Red Blood Count 3.45 x10^6/uL Hemoglobin 12.6 g/dL Hematocrit 37.6 % Mean Corpuscular Volume 109 fL Mean Corpuscular Hemoglobin 36 pg Mean Corpuscular Hemoglobin Concent 33 g/dL Red Cell Distribution Width 17.6 % Platelet Count 183 x10^3/uL Neutrophils (%) (Auto) 84 % Lymphocytes (%) (Auto) 7 % Monocytes (%) (Auto) 8 % Eosinophils (%) (Auto) 0 % Basophils (%) (Auto) 0 % Neutrophils # (Auto) 5.0 x10^3uL Lymphocytes # (Auto) 0.4 x10^3/uL Monocytes # (Auto) 0.5 x10^3/uL Eosinophils # (Auto) 0.0 x10^3/uL Basophils # (Auto) 0.0 x10^3/uL Sodium Level 142 mmol/L Potassium Level 3.2 mmol/L Chloride Level 102 mmol/L Carbon Dioxide Level 34 mmol/L Anion Gap 6 Blood Urea Nitrogen 15 mg/dL Creatinine 0.5 mg/dL Estimated GFR (Cockcroft-Gault) 122.3 BUN/Creatinine Ratio 30 Glucose Level 160 mg/dL Calcium Level 9.2 mg/dL Total Bilirubin 0.4 mg/dL Aspartate Amino Transf (AST/SGOT) 21 U/L Alanine Aminotransferase (ALT/SGPT) 38 U/L Alkaline Phosphatase 281 U/L Total Protein 6.7 g/dL Albumin 2.6 g/dL Albumin/Globulin Ratio 0.6 Current Medications Medications (Trade) Dose Ordered Sig/Mya Route PRN Reason Start Time Stop Time Status Last Admin Dose Admin Acetaminophen (Tylenol) 650 mg PRN Q6HRS PRN PO MILD PAIN / TEMP > 100.3'F 02/16/21 15:45 03/04/21 09:21 DC 02/18/21 06:31 Multi-Ingredient Ointment (Analgesic [place]) 1 debra PRN QID PRN TP MUSCLE PAIN 02/16/21 15:45 03/04/21 09:21 DC Al Hydroxide/Mg Hydroxide (Mylanta Plus Xs) 15 ml PRN AFTMEALHC PRN PO DYSPEPSIA 02/16/21 15:45 03/04/21 22:05 Magnesium Hydroxide (Milk Of Magnesia) 2,400 mg PRN QHS PRN PO 1ST CHOICE CONSTIPATION 02/16/21 15:45 03/04/21 09:21 DC Acetaminophen (Tylenol) 1,000 mg Q6HRS PRN PO pain or fever 02/16/21 17:00 02/16/21 17:35 DC Acetaminophen (Tylenol) 500 mg Q4HRS PRN PO MILD PAIN 1-3 02/16/21 17:00 02/16/21 17:36 DC Bisacodyl (Dulcolax Tab) 5 mg PRN DAILY PRN PO 2ND CHOICE CONSTIPATION 02/16/21 17:00 03/04/21 09:21 DC Vitamin D (Vitamin D3) 50,000 unit WEEKLY PO 02/22/21 09:00 03/04/21 09:21 DC 02/22/21 07:16 Clonazepam (KlonoPIN) 0.5 mg BID PO 02/16/21 21:00 02/27/21 19:54 DC 02/27/21 10:11 Dicyclomine HCl (Bentyl) 20 mg TID PO 02/16/21 21:00 03/04/21 09:21 DC 03/03/21 21:07 Diphenoxylate HCl/ Atropine (Lomotil) 2 tab BID PO 02/16/21 21:00 03/04/21 09:21 DC 03/03/21 21:08 Divalproex Sodium (Depakote Er) 1,000 mg HS PO 02/16/21 21:00 03/04/21 21:43 Duloxetine HCl (Cymbalta) 30 mg BID PO 02/16/21 21:00 03/05/21 08:10 Fluticasone Propionate (Flonase) 2 spray DAILY NS 02/17/21 09:00 03/05/21 08:11 Furosemide (Lasix) 20 mg DAILY PO 02/17/21 09:00 03/04/21 09:21 DC 03/03/21 08:32 Gabapentin (Neurontin) 300 mg QID PO 02/16/21 17:00 03/05/21 08:12 Hydroxyurea (Hydrea) 1,000 mg DAILY PO 02/17/21 09:00 03/05/21 08:12 Levetiracetam (Keppra) 250 mg BID PO 02/16/21 21:00 03/02/21 14:48 DC 03/02/21 09:54 Lidocaine (Lidoderm) 1 patch DAILY TP 02/17/21 09:00 02/17/21 09:24 DC Al Hydroxide/Mg Hydroxide (Mylanta Plus Xs) 15 ml PRN AFTMEALHC PRN PO DYSPEPSIA 02/16/21 17:00 02/16/21 17:36 DC Mirabegron (Myrbetriq) 50 mg DAILY PO 02/17/21 09:00 03/04/21 09:21 DC 03/03/21 08:30 Nystatin (Nystop) 1 debra BID TP 02/16/21 21:00 03/04/21 21:43 Pantoprazole Sodium (Protonix) 40 mg DAILYAC PO 02/17/21 07:30 03/05/21 08:10 Potassium Chloride (Klor-Con) 40 meq DAILY PO 02/17/21 09:00 03/04/21 09:21 DC 03/03/21 08:32 Sulfasalazine (Azulfidine) 500 mg TID PO 02/16/21 21:00 03/05/21 08:11 Trazodone HCl (Desyrel) 50 mg QHS PO 02/16/21 21:00 03/04/21 21:43 Non-Formulary Medication (Albuterol Sulfate (Albuterol Sulfate Conc Neb Soln)) 1 vial PRN Q4HRS PRN NEB SHORTNESS OF BREATH 02/16/21 17:00 02/16/21 17:49 DC Ascorbic Acid (Vitamin C) 1,000 mg DAILY PO 02/17/21 09:00 03/04/21 09:21 DC 03/03/21 08:34 Diltiazem HCl (Cardizem) 60 mg BID PO 02/16/21 21:00 03/05/21 08:10 Lactobacillus Rhamnosus (Culturelle) 1 cap DAILY PO 02/17/21 09:00 03/04/21 09:21 DC 03/03/21 08:32 Amylase/Lipase/ Protease (Zenpep 10,000) 1 cap TIDBFRMEAL PO 02/17/21 07:30 03/05/21 08:10 Non-Formulary Medication (Magnesium Hydroxide (Milk Of Magnesia)) 2,400 mg PRN DAILY PRN PO CONSTIPATION 02/16/21 17:00 02/16/21 17:37 DC Magnesium Oxide (Magnesium Oxide) 400 mg DAILY PO 02/17/21 09:00 03/04/21 09:21 DC 03/03/21 08:31 Non-Formulary Medication (Methyl Salicylate/ Menthol (Analgesic [place])) 1 debra PRN Q6HRS PRN TP MUSCLE PAIN 02/16/21 17:00 02/16/21 17:37 DC Non-Formulary Medication (Umeclidinium [place] (Incruse Ellipta)) 62.5 mcg DAILY IH 02/17/21 09:00 02/16/21 17:49 DC Non-Formulary Medication (Zinc Gluconate ) 50 mg DAILY PO 02/17/21 09:00 02/16/21 17:46 DC Albuterol/ Ipratropium (Duoneb) 3 ml RTQID NEB 02/16/21 20:00 02/17/21 19:52 DC Albuterol Sulfate (Ventolin) 2.5 mg PRN Q4HRS PRN NEB SHORTNESS OF BREATH 02/16/21 18:00 Influenza Virus Vaccine Quadrival (Flulaval Quad [id number] Syringe) 0.5 ml ONCE ONCE VAX IM 02/17/21 09:00 02/17/21 09:01 DC 02/17/21 09:21 Lidocaine (Lidoderm) 1 patch DAILY PRN TP pain 02/17/21 09:30 02/27/21 10:11 Albuterol/ Ipratropium (Combivent Respimat 20-100 Mcg) 1 puff RTQID INH 02/17/21 20:00 03/05/21 08:10 Sertraline HCl (Zoloft) 25 mg DAILY PO 02/22/21 09:00 02/24/21 10:00 DC 02/24/21 09:59 Sertraline HCl (Zoloft) 50 mg DAILY PO 02/25/21 09:00 03/01/21 18:30 DC 03/01/21 10:07 Olanzapine (ZyPREXA ZYDIS) 5 mg 1X ONCE PO 02/26/21 12:03 02/26/21 12:09 DC 02/26/21 12:25 Clonazepam (KlonoPIN) 0.5 mg DAILY PO 02/28/21 09:00 03/02/21 07:00 DC 03/01/21 10:07 Bupropion HCl (Wellbutrin Xl) 150 mg DAILY PO 03/02/21 09:00 03/05/21 08:10 Levetiracetam (Keppra) 250 mg DAILY PO 03/03/21 09:00 03/05/21 08:10 Aripiprazole (Abilify) 5 mg DAILY PO 03/05/21 09:00 03/05/21 08:12 Current Medications Medications (Trade) Dose Ordered Sig/Mya Route PRN Reason Start Time Stop Time Status Last Admin Dose Admin Aripiprazole (Abilify) 5 mg DAILY PO 03/05/21 09:00 03/05/21 08:12 I have reviewed the current psychotropics carefully including drug interactions. Risk benefit ratio favors no change other than as noted in my dictated progress note. Diagnosis: Problems: (1) Bipolar disorder, curr episode mixed, severe, with psychotic features (2) Anxiety disorder, unspecified (3) Impulse control disorder, unspecified (4) Bipolar 1 disorder, depressed NITHIN STEVENS MD Mar 05, 2021 09:03
[2021-03-05] MEDS: NYSTATIN TOPICAL POWDER 15GM BOTTLE. TP SCH ×3 (09:06→22:08)
--- NOTE | 2021-03-05 11:55 | NUR ---
NURSING NOTE PT WAS IN [facility] CHAIR IN DINING ROOM THIS AM UPON ASSESSMENT AND MEDICATION ADMINISTRATION. PT A&OX0 THIS AM. PT DID NOT HAVE AN APPETITE THIS AM FOR BREAKFAST. PT DID TAKE HER MORNING PILLS CRUSHED IN APPLESAUCE. PER CERTIFIED INDOOR ENVIRONMENTALIST REPORT, PT HAD 0MLS OF URINE OUTPUT OVER NIGHT, PER CERTIFIED INDOOR ENVIRONMENTALIST RN BLADDER SCAN THIS AM WAS APPROX 130 MLS. WILL PASS ALONG IN REPORT TO CONTINUE TO MONITOR FOR RETENTION. PT HAS SKIN TEARS ON RIGHT FOREARM, DRESSINGS CHANGED TODAY. PT IS COMPLIANT/NONCOMPLIANT WITH HER OXYGEN TUBING, HAS TO BE REMINDED TO LEAVE HER TUBING IN PLACE. PT DID TAKE HER MEDS WHOLE AT LUNCH TIME WITH NO ISSUE, BUT DOES NEED TO BE MONITORED FOR POCKETING, HAS DELAYED SWALLOWING. CORTNEY WALTERS.
--- NOTE | 2021-03-05 15:34 | NUR ---
assumed care of patient at 1400. Patient is asleep, in her bed, with oxygen NC on.
[2021-03-05 15:54] VITALS: BP 131/77
[2021-03-05] MEDS: traZODone 50 MG TABLET. PO SCH ×2 (20:19→22:07)
[2021-03-05] MEDS: DIVALPROEX ER 500 MG TAB.ER.24H PO SCH ×2 (20:19→22:07)
--- NOTE | 2021-03-05 21:54 | PDOC ---
Exam Note: Napoleon Note: Please also refer to the separate dictated note~for this date of service dictated separately.~Patient seen individually. Discussed the patient with Nursing staff reviewed the chart.~Reviewed interim history and current functioning. Reviewed vital signs,~Labs/ Radiology~and current medications noted below. Continue current treatment with the changes noted in the dictated addendum note Assessment: Vital Signs/I&O: Vital Signs Date Time Temp Pulse Resp B/P (MAP) Pulse Ox O2 Delivery O2 Flow Rate FiO2 03/05/21 20:19 84 131/77 03/05/21 15:54 97.6 18 93 03/05/21 05:48 2.0 03/04/21 21:58 Nasal Cannula I & O 03/04/21 03/04/21 03/05/21 15:00 23:00 07:00 Intake Total 300 ml 360 ml Balance 300 ml 360 ml Current Medications: Meds: Current Medications Medications (Trade) Dose Ordered Sig/Mya Route PRN Reason Start Time Stop Time Status Last Admin Dose Admin Acetaminophen (Tylenol) 650 mg PRN Q6HRS PRN PO MILD PAIN / TEMP > 100.3'F 02/16/21 15:45 03/04/21 09:21 DC 02/18/21 06:31 Multi-Ingredient Ointment (Analgesic [place]) 1 debra PRN QID PRN TP MUSCLE PAIN 02/16/21 15:45 03/04/21 09:21 DC Al Hydroxide/Mg Hydroxide (Mylanta Plus Xs) 15 ml PRN AFTMEALHC PRN PO DYSPEPSIA 02/16/21 15:45 03/04/21 22:05 Magnesium Hydroxide (Milk Of Magnesia) 2,400 mg PRN QHS PRN PO 1ST CHOICE CONSTIPATION 02/16/21 15:45 03/04/21 09:21 DC Acetaminophen (Tylenol) 1,000 mg Q6HRS PRN PO pain or fever 02/16/21 17:00 02/16/21 17:35 DC Acetaminophen (Tylenol) 500 mg Q4HRS PRN PO MILD PAIN 1-3 02/16/21 17:00 02/16/21 17:36 DC Bisacodyl (Dulcolax Tab) 5 mg PRN DAILY PRN PO 2ND CHOICE CONSTIPATION 02/16/21 17:00 03/04/21 09:21 DC Vitamin D (Vitamin D3) 50,000 unit WEEKLY PO 02/22/21 09:00 03/04/21 09:21 DC 02/22/21 07:16 Clonazepam (KlonoPIN) 0.5 mg BID PO 02/16/21 21:00 02/27/21 19:54 DC 02/27/21 10:11 Dicyclomine HCl (Bentyl) 20 mg TID PO 02/16/21 21:00 03/04/21 09:21 DC 03/03/21 21:07 Diphenoxylate HCl/ Atropine (Lomotil) 2 tab BID PO 02/16/21 21:00 03/04/21 09:21 DC 03/03/21 21:08 Divalproex Sodium (Depakote Er) 1,000 mg HS PO 02/16/21 21:00 03/05/21 20:19 Duloxetine HCl (Cymbalta) 30 mg BID PO 02/16/21 21:00 03/05/21 20:19 Fluticasone Propionate (Flonase) 2 spray DAILY NS 02/17/21 09:00 03/05/21 08:11 Furosemide (Lasix) 20 mg DAILY PO 02/17/21 09:00 03/04/21 09:21 DC 03/03/21 08:32 Gabapentin (Neurontin) 300 mg QID PO 02/16/21 17:00 03/05/21 20:19 Hydroxyurea (Hydrea) 1,000 mg DAILY PO 02/17/21 09:00 03/05/21 08:12 Levetiracetam (Keppra) 250 mg BID PO 02/16/21 21:00 03/02/21 14:48 DC 03/02/21 09:54 Lidocaine (Lidoderm) 1 patch DAILY TP 02/17/21 09:00 02/17/21 09:24 DC Al Hydroxide/Mg Hydroxide (Mylanta Plus Xs) 15 ml PRN AFTMEALHC PRN PO DYSPEPSIA 02/16/21 17:00 02/16/21 17:36 DC Mirabegron (Myrbetriq) 50 mg DAILY PO 02/17/21 09:00 03/04/21 09:21 DC 03/03/21 08:30 Nystatin (Nystop) 1 debra BID TP 02/16/21 21:00 03/05/21 20:18 Pantoprazole Sodium (Protonix) 40 mg DAILYAC PO 02/17/21 07:30 03/05/21 08:10 Potassium Chloride (Klor-Con) 40 meq DAILY PO 02/17/21 09:00 03/04/21 09:21 DC 03/03/21 08:32 Sulfasalazine (Azulfidine) 500 mg TID PO 02/16/21 21:00 03/05/21 20:19 Trazodone HCl (Desyrel) 50 mg QHS PO 02/16/21 21:00 03/05/21 20:19 Non-Formulary Medication (Albuterol Sulfate (Albuterol Sulfate Conc Neb Soln)) 1 vial PRN Q4HRS PRN NEB SHORTNESS OF BREATH 02/16/21 17:00 02/16/21 17:49 DC Ascorbic Acid (Vitamin C) 1,000 mg DAILY PO 02/17/21 09:00 03/04/21 09:21 DC 03/03/21 08:34 Diltiazem HCl (Cardizem) 60 mg BID PO 02/16/21 21:00 03/05/21 20:19 Lactobacillus Rhamnosus (Culturelle) 1 cap DAILY PO 02/17/21 09:00 03/04/21 09:21 DC 03/03/21 08:32 Amylase/Lipase/ Protease (Zenpep 10,000) 1 cap TIDBFRMEAL PO 02/17/21 07:30 03/05/21 16:48 Non-Formulary Medication (Magnesium Hydroxide (Milk Of Magnesia)) 2,400 mg PRN DAILY PRN PO CONSTIPATION 02/16/21 17:00 02/16/21 17:37 DC Magnesium Oxide (Magnesium Oxide) 400 mg DAILY PO 02/17/21 09:00 03/04/21 09:21 DC 03/03/21 08:31 Non-Formulary Medication (Methyl Salicylate/ Menthol (Analgesic [place])) 1 debra PRN Q6HRS PRN TP MUSCLE PAIN 02/16/21 17:00 02/16/21 17:37 DC Non-Formulary Medication (Umeclidinium [place] (Incruse Ellipta)) 62.5 mcg DAILY IH 02/17/21 09:00 02/16/21 17:49 DC Non-Formulary Medication (Zinc Gluconate ) 50 mg DAILY PO 02/17/21 09:00 02/16/21 17:46 DC Albuterol/ Ipratropium (Duoneb) 3 ml RTQID NEB 02/16/21 20:00 02/17/21 19:52 DC Albuterol Sulfate (Ventolin) 2.5 mg PRN Q4HRS PRN NEB SHORTNESS OF BREATH 02/16/21 18:00 Influenza Virus Vaccine Quadrival (Flulaval Quad [id number] Syringe) 0.5 ml ONCE ONCE VAX IM 02/17/21 09:00 02/17/21 09:01 DC 02/17/21 09:21 Lidocaine (Lidoderm) 1 patch DAILY PRN TP pain 02/17/21 09:30 02/27/21 10:11 Albuterol/ Ipratropium (Combivent Respimat 20-100 Mcg) 1 puff RTQID INH 02/17/21 20:00 03/05/21 20:18 Sertraline HCl (Zoloft) 25 mg DAILY PO 02/22/21 09:00 02/24/21 10:00 DC 02/24/21 09:59 Sertraline HCl (Zoloft) 50 mg DAILY PO 02/25/21 09:00 03/01/21 18:30 DC 03/01/21 10:07 Olanzapine (ZyPREXA ZYDIS) 5 mg 1X ONCE PO 02/26/21 12:03 02/26/21 12:09 DC 02/26/21 12:25 Clonazepam (KlonoPIN) 0.5 mg DAILY PO 02/28/21 09:00 03/02/21 07:00 DC 03/01/21 10:07 Bupropion HCl (Wellbutrin Xl) 150 mg DAILY PO 03/02/21 09:00 03/05/21 08:10 Levetiracetam (Keppra) 250 mg DAILY PO 03/03/21 09:00 03/05/21 08:10 Aripiprazole (Abilify) 5 mg DAILY PO 03/05/21 09:00 03/05/21 08:12 Current Medications Medications (Trade) Dose Ordered Sig/Mya Route PRN Reason Start Time Stop Time Status Last Admin Dose Admin Aripiprazole (Abilify) 5 mg DAILY PO 03/05/21 09:00 03/05/21 08:12 I have reviewed the current psychotropics carefully including drug interactions. Risk benefit ratio favors no change other than as noted in my dictated progress note. Diagnosis: Problems: (1) Bipolar affective, depress, sev w/ psych (2) Anxiety disorder, unspecified (3) Impulse control disorder, unspecified NITHIN STEVENS MD Mar 05, 2021 21:54
--- NOTE | 2021-03-05 22:08 | NUR ---
Patient refused to take HS medications. She refused to open her mouth. Meds offered whole, then the ones able to be crushed were crushed when patient refused them whole. Patient spit the meds onto nurse and blanket. Medications documented as refused. Patient refusing to answer any questions, will not interact with nurse other than to say "no" about the medications. patient is in bed, head elevated with O2 NC on at this time.
[2021-03-06 05:51] VITALS: BP 118/73
[2021-03-06] MEDS: buPROPion XL 150 MG TAB.ER.24H PO SCH (08:13)
[2021-03-06] MEDS: dilTIAZem HCL 30 MG TABLET PO SCH ×2 (08:13→21:53)
[2021-03-06] MEDS: PANTOPRAZOLE 40 MG TABLET. PO SCH (08:14)
[2021-03-06] MEDS: levETIRAcetam 250 MG TABLET PO SCH (08:14)
[2021-03-06] MEDS: DULoxetine HCL 30 MG CAPSULE.DR PO SCH ×2 (08:14→21:00)
[2021-03-06] MEDS: LIPASE/PROTEAS/AMYLAS 10/32/42 CAPSULE.DR. PO SCH ×3 (08:14→16:36)
[2021-03-06] MEDS: IPRATROPIUM/ALBUTEROL 20/100mcg/INH INHALER. INH SCH ×4 (08:15→20:00)
[2021-03-06] MEDS: FLUTICASONE 50MCG/NASAL SPRAY 16GM BOTTLE. NS SCH (08:15)
[2021-03-06] MEDS: HYDROXYUREA 500 MG CAPSULE PO SCH (08:30)
[2021-03-06] MEDS: GABAPENTIN 300 MG CAPSULE. PO SCH ×4 (08:30→21:00)
[2021-03-06] MEDS: sulfaSALAzine 500 MG TABLET PO SCH ×3 (08:30→21:53)
[2021-03-06] MEDS: ARIPiprazole 5 MG TABLET PO SCH (08:33)
[2021-03-06] MEDS: NYSTATIN TOPICAL POWDER 15GM BOTTLE. TP SCH ×2 (08:34→21:00)
--- NOTE | 2021-03-06 10:55 | NUR ---
RN Day Shift: pt presents with flat mood/affect. pt is medication compliant. pts vitals are WNL. pt is not eating very well, about 25% on average of meals. pt sleeps about 8 hours on average. pt is noted to spend time in the day room with select peers. pt speaks in garble, and is not understood. will continue to monitor
[2021-03-06 16:06] VITALS: BP 125/74
--- NOTE | 2021-03-06 17:53 | NUR ---
pt was very resistant to afternoon medications. pt was compliant with her late afternoon medication. pts bandage was taken off at dinner time, a new one was placed on pts right elbow. pt spoke more clearly at dinner time and was cooperative and calm.
[2021-03-06 18:39] VITALS: BP 142/78
[2021-03-06] MEDS: ONDANSETRON ODT 4 MG TAB.RAPDIS PO PRN (19:46)
--- NOTE | 2021-03-06 19:46 | NUR ---
patient is vomiting. Prior to shift change patient had temperature of 99F. PRN zofran administered for nausea/vomiting. Will continue to monitor.
[2021-03-06] MEDS: traZODone 50 MG TABLET. PO SCH (21:00)
[2021-03-06] MEDS: DIVALPROEX ER 500 MG TAB.ER.24H PO SCH (21:00)
--- NOTE | 2021-03-06 21:52 | PDOC ---
Exam Note: Napoleon Note: Please also refer to the separate dictated note~for this date of service dictated separately.~Patient seen individually. Discussed the patient with Nursing staff reviewed the chart.~Reviewed interim history and current functioning. Reviewed vital signs,~Labs/ Radiology~and current medications noted below. Continue current treatment with the changes noted in the dictated addendum note Assessment: Vital Signs/I&O: Vital Signs Date Time Temp Pulse Resp B/P (MAP) Pulse Ox O2 Delivery O2 Flow Rate FiO2 03/06/21 16:06 98.9 94 16 125/74 (91) 91 03/06/21 05:51 Nasal Cannula 3.0 I & O 03/05/21 03/05/21 03/06/21 15:00 23:00 07:00 Intake Total 580 ml 120 ml Balance 580 ml 120 ml Current Medications: Meds: Current Medications Medications (Trade) Dose Ordered Sig/Mya Route PRN Reason Start Time Stop Time Status Last Admin Dose Admin Acetaminophen (Tylenol) 650 mg PRN Q6HRS PRN PO MILD PAIN / TEMP > 100.3'F 02/16/21 15:45 03/04/21 09:21 DC 02/18/21 06:31 Multi-Ingredient Ointment (Analgesic [place]) 1 debra PRN QID PRN TP MUSCLE PAIN 02/16/21 15:45 03/04/21 09:21 DC Al Hydroxide/Mg Hydroxide (Mylanta Plus Xs) 15 ml PRN AFTMEALHC PRN PO DYSPEPSIA 02/16/21 15:45 03/04/21 22:05 Magnesium Hydroxide (Milk Of Magnesia) 2,400 mg PRN QHS PRN PO 1ST CHOICE CONSTIPATION 02/16/21 15:45 03/04/21 09:21 DC Acetaminophen (Tylenol) 1,000 mg Q6HRS PRN PO pain or fever 02/16/21 17:00 02/16/21 17:35 DC Acetaminophen (Tylenol) 500 mg Q4HRS PRN PO MILD PAIN 1-3 02/16/21 17:00 02/16/21 17:36 DC Bisacodyl (Dulcolax Tab) 5 mg PRN DAILY PRN PO 2ND CHOICE CONSTIPATION 02/16/21 17:00 03/04/21 09:21 DC Vitamin D (Vitamin D3) 50,000 unit WEEKLY PO 02/22/21 09:00 03/04/21 09:21 DC 02/22/21 07:16 Clonazepam (KlonoPIN) 0.5 mg BID PO 02/16/21 21:00 02/27/21 19:54 DC 02/27/21 10:11 Dicyclomine HCl (Bentyl) 20 mg TID PO 02/16/21 21:00 03/04/21 09:21 DC 03/03/21 21:07 Diphenoxylate HCl/ Atropine (Lomotil) 2 tab BID PO 02/16/21 21:00 03/04/21 09:21 DC 03/03/21 21:08 Divalproex Sodium (Depakote Er) 1,000 mg HS PO 02/16/21 21:00 03/04/21 21:43 Duloxetine HCl (Cymbalta) 30 mg BID PO 02/16/21 21:00 03/06/21 08:14 Fluticasone Propionate (Flonase) 2 spray DAILY NS 02/17/21 09:00 03/06/21 08:15 Furosemide (Lasix) 20 mg DAILY PO 02/17/21 09:00 03/04/21 09:21 DC 03/03/21 08:32 Gabapentin (Neurontin) 300 mg QID PO 02/16/21 17:00 03/06/21 16:36 Hydroxyurea (Hydrea) 1,000 mg DAILY PO 02/17/21 09:00 03/06/21 08:30 Levetiracetam (Keppra) 250 mg BID PO 02/16/21 21:00 03/02/21 14:48 DC 03/02/21 09:54 Lidocaine (Lidoderm) 1 patch DAILY TP 02/17/21 09:00 02/17/21 09:24 DC Al Hydroxide/Mg Hydroxide (Mylanta Plus Xs) 15 ml PRN AFTMEALHC PRN PO DYSPEPSIA 02/16/21 17:00 02/16/21 17:36 DC Mirabegron (Myrbetriq) 50 mg DAILY PO 02/17/21 09:00 03/04/21 09:21 DC 03/03/21 08:30 Nystatin (Nystop) 1 debra BID TP 02/16/21 21:00 03/06/21 08:34 Pantoprazole Sodium (Protonix) 40 mg DAILYAC PO 02/17/21 07:30 03/06/21 08:14 Potassium Chloride (Klor-Con) 40 meq DAILY PO 02/17/21 09:00 03/04/21 09:21 DC 03/03/21 08:32 Sulfasalazine (Azulfidine) 500 mg TID PO 02/16/21 21:00 03/06/21 13:05 Trazodone HCl (Desyrel) 50 mg QHS PO 02/16/21 21:00 03/04/21 21:43 Non-Formulary Medication (Albuterol Sulfate (Albuterol Sulfate Conc Neb Soln)) 1 vial PRN Q4HRS PRN NEB SHORTNESS OF BREATH 02/16/21 17:00 02/16/21 17:49 DC Ascorbic Acid (Vitamin C) 1,000 mg DAILY PO 02/17/21 09:00 03/04/21 09:21 DC 03/03/21 08:34 Diltiazem HCl (Cardizem) 60 mg BID PO 02/16/21 21:00 03/06/21 08:13 Lactobacillus Rhamnosus (Culturelle) 1 cap DAILY PO 02/17/21 09:00 03/04/21 09:21 DC 03/03/21 08:32 Amylase/Lipase/ Protease (Zenpep 10,000) 1 cap TIDBFRMEAL PO 02/17/21 07:30 03/06/21 16:36 Non-Formulary Medication (Magnesium Hydroxide (Milk Of Magnesia)) 2,400 mg PRN DAILY PRN PO CONSTIPATION 02/16/21 17:00 02/16/21 17:37 DC Magnesium Oxide (Magnesium Oxide) 400 mg DAILY PO 02/17/21 09:00 03/04/21 09:21 DC 03/03/21 08:31 Non-Formulary Medication (Methyl Salicylate/ Menthol (Analgesic Loraine)) 1 debra PRN Q6HRS PRN TP MUSCLE PAIN 02/16/21 17:00 02/16/21 17:37 DC Non-Formulary Medication (Umeclidinium [place] (Incruse Ellipta)) 62.5 mcg DAILY IH 02/17/21 09:00 02/16/21 17:49 DC Non-Formulary Medication (Zinc Gluconate ) 50 mg DAILY PO 02/17/21 09:00 02/16/21 17:46 DC Albuterol/ Ipratropium (Duoneb) 3 ml RTQID NEB 02/16/21 20:00 02/17/21 19:52 DC Albuterol Sulfate (Ventolin) 2.5 mg PRN Q4HRS PRN NEB SHORTNESS OF BREATH 02/16/21 18:00 Influenza Virus Vaccine Quadrival (Flulaval Quad [id number] Syringe) 0.5 ml ONCE ONCE VAX IM 02/17/21 09:00 02/17/21 09:01 DC 02/17/21 09:21 Lidocaine (Lidoderm) 1 patch DAILY PRN TP pain 02/17/21 09:30 02/27/21 10:11 Albuterol/ Ipratropium (Combivent Respimat 20-100 Mcg) 1 puff RTQID INH 02/17/21 20:00 03/06/21 16:36 Sertraline HCl (Zoloft) 25 mg DAILY PO 02/22/21 09:00 02/24/21 10:00 DC 02/24/21 09:59 Sertraline HCl (Zoloft) 50 mg DAILY PO 02/25/21 09:00 03/01/21 18:30 DC 03/01/21 10:07 Olanzapine (ZyPREXA ZYDIS) 5 mg 1X ONCE PO 02/26/21 12:03 02/26/21 12:09 DC 02/26/21 12:25 Clonazepam (KlonoPIN) 0.5 mg DAILY PO 02/28/21 09:00 03/02/21 07:00 DC 03/01/21 10:07 Bupropion HCl (Wellbutrin Xl) 150 mg DAILY PO 03/02/21 09:00 03/06/21 08:13 Levetiracetam (Keppra) 250 mg DAILY PO 03/03/21 09:00 03/06/21 08:14 Aripiprazole (Abilify) 5 mg DAILY PO 03/05/21 09:00 03/06/21 08:33 Ondansetron HCl (Zofran Odt) 4 mg PRN Q4HRS PRN PO NAUSEA/VOMITING 03/06/21 19:30 03/06/21 19:46 Current Medications Medications (Trade) Dose Ordered Sig/Mya Route PRN Reason Start Time Stop Time Status Last Admin Dose Admin Ondansetron HCl (Zofran Odt) 4 mg PRN Q4HRS PRN PO NAUSEA/VOMITING 03/06/21 19:30 03/06/21 19:46 I have reviewed the current psychotropics carefully including drug interactions. Risk benefit ratio favors no change other than as noted in my dictated progress note. Diagnosis: Problems: (1) Anxiety disorder, unspecified (2) Impulse control disorder, unspecified (3) Mild cognitive impairment (4) Bipolar affective, depress, sev w/ psych NITHIN STEVENS MD Mar 06, 2021 21:52
--- NOTE | 2021-03-06 23:02 | NUR ---
Oral HS medications held as patient is vomiting and has been having episodes of diarrhea. Stool sample was submitted for C.Diff on day shift. Results still pending. Patient has taken her oxygen NC off and stated that she wants to . Staff is monitoring patient and has replaced the oxygen NC. Patient is now wearing mitts so she cannot remove oxygen. Patient is not answering questions or communicating with this nurse. She has spoken to several CAR DRIVER's. Will continue to monitor.
[2021-03-07 05:39] VITALS: BP 152/74
[2021-03-07 07:27] LABS: ALBUMIN 2.6 g/dL (3.4-5.0); ALBUMIN/GLOBULIN RATIO 0.6 (1.0-1.7); CALCIUM 9.5 mg/dL (8.5-10.1); CREATININE 0.6 mg/dL (0.6-1.0); GFR 99.1; TOTAL BILIRUBIN 0.7 mg/dL (0.2-1.0)
[2021-03-07 07:30] LABS: POTASSIUM 2.3 mmol/L (3.5-5.1)
[2021-03-07] MEDS: PANTOPRAZOLE 40 MG TABLET. PO SCH (07:30)
[2021-03-07] MEDS: LIPASE/PROTEAS/AMYLAS 10/32/42 CAPSULE.DR. PO SCH ×3 (07:30→16:54)
--- NOTE | 2021-03-07 07:51 | NUR ---
Nursing note: Critical potassium 2.[address] Prosper newell. New orders received for K-Dur 30meq BID and recheck BMP 03/10/21.
[2021-03-07] MEDS: IPRATROPIUM/ALBUTEROL 20/100mcg/INH INHALER. INH SCH ×4 (08:00→20:42)
[2021-03-07] MEDS: HYDROXYUREA 500 MG CAPSULE PO SCH (09:00)
[2021-03-07] MEDS: FLUTICASONE 50MCG/NASAL SPRAY 16GM BOTTLE. NS SCH (09:00)
[2021-03-07] MEDS: ARIPiprazole 5 MG TABLET PO SCH (09:00)
[2021-03-07] MEDS: GABAPENTIN 300 MG CAPSULE. PO SCH ×4 (09:00→20:41)
[2021-03-07] MEDS: NYSTATIN TOPICAL POWDER 15GM BOTTLE. TP SCH ×2 (09:00→20:42)
[2021-03-07] MEDS: levETIRAcetam 250 MG TABLET PO SCH (09:00)
[2021-03-07] MEDS: POTASSIUM CHLORIDE 10 MEQ TABLET.ER. PO SCH ×3 (09:00→20:41)
[2021-03-07] MEDS: dilTIAZem HCL 30 MG TABLET PO SCH ×2 (09:00→20:41)
[2021-03-07] MEDS: sulfaSALAzine 500 MG TABLET PO SCH ×2 (09:00→13:12)
[2021-03-07] MEDS: DULoxetine HCL 30 MG CAPSULE.DR PO SCH (09:00)
[2021-03-07] MEDS: buPROPion XL 150 MG TAB.ER.24H PO SCH (09:00)
--- NOTE | 2021-03-07 09:21 | PDOC ---
Exam Note: Napoleon Note: This note is a late entry for 03/04/2021 covers elements not covered in my initial note. Subjective: The patient was seen individually in the evening of 03/04/2021 with Hadley BARR, discussed and reviewed the chart. The patient slept 8-1/2 hours previous night. Also discussed with Kyle BARR. The patient spit out her medications last night, takes medications in apple sauce. She is keeping her oxygen in place. Review of Systems: Ambulation impaired, in wheelchair. Shortness of breath on O2 supplements 2 to 3 L. No CV, , eye, ENT system symptoms on review. Mental Status Exam: The patient is reasonably oriented to herself and situation. Speech has latency, coherent. Often response is monosyllabic. Abstraction fair. Computation impaired. Language function intact. Mood and affect appears withdrawn. No active suicidal ideation. Laboratory Data: Reviewed. Impression: Bipolar disorder, depressed with psychotic features. Anxiety disorder unspecified. Impulse control disorder unspecified. Plan: Continue current psychotropics Cymbalta, Wellbutrin, Depakote. She is also on gabapentin and Keppra for seizures, trazodone. We will augment the anti-depressants with Abilify 5 mg a day. Reviewed drug interactions and risk- benefit ratio. Adjust further as clinically indicated. Assessment: Vital Signs/I&O: Vital Signs Date Time Temp Pulse Resp B/P (MAP) Pulse Ox O2 Delivery O2 Flow Rate FiO2 03/07/21 05:39 98.1 72 18 152/74 (100) 92 Nasal Cannula 2.0 I & O 03/06/21 03/06/21 03/07/21 15:00 23:00 07:00 Intake Total 240 ml 240 ml Balance 240 ml 240 ml Labs: Laboratory Tests Test 03/07/21 07:05 Sodium Level 143 mmol/L (136-145) Potassium Level 2.3 mmol/L (3.5-5.1) *L Chloride Level 105 mmol/L (98-107) Carbon Dioxide Level 33 mmol/L (21-32) H Anion Gap 5 (6-14) L Blood Urea Nitrogen 8 mg/dL (7-20) Creatinine 0.6 mg/dL (0.6-1.0) Estimated GFR (Cockcroft-Gault) 99.1 BUN/Creatinine Ratio 13 (6-20) Glucose Level 133 mg/dL (70-99) H Calcium Level 9.5 mg/dL (8.5-10.1) Total Bilirubin 0.7 mg/dL (0.2-1.0) Aspartate Amino Transferase (AST) 17 U/L (15-37) Alanine Aminotransferase (ALT) 24 U/L (14-59) Alkaline Phosphatase 192 U/L (46-116) H Total Protein 7.0 g/dL (6.4-8.2) Albumin 2.6 g/dL (3.4-5.0) L Albumin/Globulin Ratio 0.6 (1.0-1.7) L Current Medications: Meds: Laboratory Tests Test 03/07/21 07:05 Sodium Level 143 mmol/L Potassium Level 2.3 mmol/L Chloride Level 105 mmol/L Carbon Dioxide Level 33 mmol/L Anion Gap 5 Blood Urea Nitrogen 8 mg/dL Creatinine 0.6 mg/dL Estimated GFR (Cockcroft-Gault) 99.1 BUN/Creatinine Ratio 13 Glucose Level 133 mg/dL Calcium Level 9.5 mg/dL Total Bilirubin 0.7 mg/dL Aspartate Amino Transf (AST/SGOT) 17 U/L Alanine Aminotransferase (ALT/SGPT) 24 U/L Alkaline Phosphatase 192 U/L Total Protein 7.0 g/dL Albumin 2.6 g/dL Albumin/Globulin Ratio 0.6 Current Medications Medications (Trade) Dose Ordered Sig/Mya Route PRN Reason Start Time Stop Time Status Last Admin Dose Admin Acetaminophen (Tylenol) 650 mg PRN Q6HRS PRN PO MILD PAIN / TEMP > 100.3'F 02/16/21 15:45 03/04/21 09:21 DC 02/18/21 06:31 Multi-Ingredient Ointment (Analgesic [place]) 1 debra PRN QID PRN TP MUSCLE PAIN 02/16/21 15:45 03/04/21 09:21 DC Al Hydroxide/Mg Hydroxide (Mylanta Plus Xs) 15 ml PRN AFTMEALHC PRN PO DYSPEPSIA 02/16/21 15:45 03/04/21 22:05 Magnesium Hydroxide (Milk Of Magnesia) 2,400 mg PRN QHS PRN PO 1ST CHOICE CONSTIPATION 02/16/21 15:45 03/04/21 09:21 DC Acetaminophen (Tylenol) 1,000 mg Q6HRS PRN PO pain or fever 02/16/21 17:00 02/16/21 17:35 DC Acetaminophen (Tylenol) 500 mg Q4HRS PRN PO MILD PAIN 1-3 02/16/21 17:00 02/16/21 17:36 DC Bisacodyl (Dulcolax Tab) 5 mg PRN DAILY PRN PO 2ND CHOICE CONSTIPATION 02/16/21 17:00 03/04/21 09:21 DC Vitamin D (Vitamin D3) 50,000 unit WEEKLY PO 02/22/21 09:00 03/04/21 09:21 DC 02/22/21 07:16 Clonazepam (KlonoPIN) 0.5 mg BID PO 02/16/21 21:00 02/27/21 19:54 DC 02/27/21 10:11 Dicyclomine HCl (Bentyl) 20 mg TID PO 02/16/21 21:00 03/04/21 09:21 DC 03/03/21 21:07 Diphenoxylate HCl/ Atropine (Lomotil) 2 tab BID PO 02/16/21 21:00 03/04/21 09:21 DC 03/03/21 21:08 Divalproex Sodium (Depakote Er) 1,000 mg HS PO 02/16/21 21:00 03/04/21 21:43 Duloxetine HCl (Cymbalta) 30 mg BID PO 02/16/21 21:00 03/06/21 08:14 Fluticasone Propionate (Flonase) 2 spray DAILY NS 02/17/21 09:00 03/06/21 08:15 Furosemide (Lasix) 20 mg DAILY PO 02/17/21 09:00 03/04/21 09:21 DC 03/03/21 08:32 Gabapentin (Neurontin) 300 mg QID PO 02/16/21 17:00 03/06/21 16:36 Hydroxyurea (Hydrea) 1,000 mg DAILY PO 02/17/21 09:00 03/06/21 08:30 Levetiracetam (Keppra) 250 mg BID PO 02/16/21 21:00 03/02/21 14:48 DC 03/02/21 09:54 Lidocaine (Lidoderm) 1 patch DAILY TP 02/17/21 09:00 02/17/21 09:24 DC Al Hydroxide/Mg Hydroxide (Mylanta Plus Xs) 15 ml PRN AFTMEALHC PRN PO DYSPEPSIA 02/16/21 17:00 02/16/21 17:36 DC Mirabegron (Myrbetriq) 50 mg DAILY PO 02/17/21 09:00 03/04/21 09:21 DC 03/03/21 08:30 Nystatin (Nystop) 1 debra BID TP 02/16/21 21:00 03/06/21 21:00 Pantoprazole Sodium (Protonix) 40 mg DAILYAC PO 02/17/21 07:30 03/06/21 08:14 Potassium Chloride (Klor-Con) 40 meq DAILY PO 02/17/21 09:00 03/04/21 09:21 DC 03/03/21 08:32 Sulfasalazine (Azulfidine) 500 mg TID PO 02/16/21 21:00 03/06/21 13:05 Trazodone HCl (Desyrel) 50 mg QHS PO 02/16/21 21:00 03/04/21 21:43 Non-Formulary Medication (Albuterol Sulfate (Albuterol Sulfate Conc Neb Soln)) 1 vial PRN Q4HRS PRN NEB SHORTNESS OF BREATH 02/16/21 17:00 02/16/21 17:49 DC Ascorbic Acid (Vitamin C) 1,000 mg DAILY PO 02/17/21 09:00 03/04/21 09:21 DC 03/03/21 08:34 Diltiazem HCl (Cardizem) 60 mg BID PO 02/16/21 21:00 03/06/21 08:13 Lactobacillus Rhamnosus (Culturelle) 1 cap DAILY PO 02/17/21 09:00 03/04/21 09:21 DC 03/03/21 08:32 Amylase/Lipase/ Protease (Zenpep 10,000) 1 cap TIDBFRMEAL PO 02/17/21 07:30 03/06/21 16:36 Non-Formulary Medication (Magnesium Hydroxide (Milk Of Magnesia)) 2,400 mg PRN DAILY PRN PO CONSTIPATION 02/16/21 17:00 02/16/21 17:37 DC Magnesium Oxide (Magnesium Oxide) 400 mg DAILY PO 02/17/21 09:00 03/04/21 09:21 DC 03/03/21 08:31 Non-Formulary Medication (Methyl Salicylate/ Menthol (Analgesic [place])) 1 debra PRN Q6HRS PRN TP MUSCLE PAIN 02/16/21 17:00 02/16/21 17:37 DC Non-Formulary Medication (Umeclidinium [place] (Incruse Ellipta)) 62.5 mcg DAILY IH 02/17/21 09:00 02/16/21 17:49 DC Non-Formulary Medication (Zinc Gluconate ) 50 mg DAILY PO 02/17/21 09:00 02/16/21 17:46 DC Albuterol/ Ipratropium (Duoneb) 3 ml RTQID NEB 02/16/21 20:00 02/17/21 19:52 DC Albuterol Sulfate (Ventolin) 2.5 mg PRN Q4HRS PRN NEB SHORTNESS OF BREATH 02/16/21 18:00 Influenza Virus Vaccine Quadrival (Flulaval Quad [id number] Syringe) 0.5 ml ONCE ONCE VAX IM 02/17/21 09:00 02/17/21 09:01 DC 02/17/21 09:21 Lidocaine (Lidoderm) 1 patch DAILY PRN TP pain 02/17/21 09:30 02/27/21 10:11 Albuterol/ Ipratropium (Combivent Respimat 20-100 Mcg) 1 puff RTQID INH 02/17/21 20:00 03/06/21 20:00 Sertraline HCl (Zoloft) 25 mg DAILY PO 02/22/21 09:00 02/24/21 10:00 DC 02/24/21 09:59 Sertraline HCl (Zoloft) 50 mg DAILY PO 02/25/21 09:00 03/01/21 18:30 DC 03/01/21 10:07 Olanzapine (ZyPREXA ZYDIS) 5 mg 1X ONCE PO 02/26/21 12:03 02/26/21 12:09 DC 02/26/21 12:25 Clonazepam (KlonoPIN) 0.5 mg DAILY PO 02/28/21 09:00 03/02/21 07:00 DC 03/01/21 10:07 Bupropion HCl (Wellbutrin Xl) 150 mg DAILY PO 03/02/21 09:00 03/06/21 08:13 Levetiracetam (Keppra) 250 mg DAILY PO 03/03/21 09:00 03/06/21 08:14 Aripiprazole (Abilify) 5 mg DAILY PO 03/05/21 09:00 03/06/21 08:33 Ondansetron HCl (Zofran Odt) 4 mg PRN Q4HRS PRN PO NAUSEA/VOMITING 03/06/21 19:30 03/06/21 19:46 Potassium Chloride (Klor-Con) 30 meq BID PO 03/07/21 09:00 Current Medications Medications (Trade) Dose Ordered Sig/Mya Route PRN Reason Start Time Stop Time Status Last Admin Dose Admin Ondansetron HCl (Zofran Odt) 4 mg PRN Q4HRS PRN PO NAUSEA/VOMITING 03/06/21 19:30 03/06/21 19:46 I have reviewed the current psychotropics carefully including drug interactions. Risk benefit ratio favors no change other than as noted in my dictated progress note. Diagnosis: Problems: (1) Bipolar affective, depress, sev w/ psych (2) Mild cognitive impairment (3) Impulse control disorder, unspecified (4) Anxiety disorder, unspecified NITHIN STEVENS MD Mar 07, 2021 09:21
--- NOTE | 2021-03-07 10:05 | PDOC ---
Exam Note: Napoleon Note: This note is a late entry for 03/05/2021 covers elements not covered in my initial note. Subjective: The patient was seen individually in the evening of 03/05/2021 with Zahira BARR, discussed and reviewed the chart. The patient slept 9-1/4 hours previous night. Patient has kept her oxygen in place. She ate nothing for breakfast, took some Ensure for lunch, poorly for dinner. Review of Systems: Ambulation impaired. Shortness of breath on O2 supplements. No CV, , eye, ENT system symptoms on review. Mental Status Exam: The patient is reasonably oriented to herself and situation. Speech low in rate and rhythm, low in volume. She was attempting to answer all questions. I discussed with her how she was getting weak because of not eating well. Discussed the initiation of Abilify with her. She said she un derstood. I am not sure of that. Abstraction fair. Computation impaired. Language function intact. Mood and affect withdrawn. No active suicidal or homicidal ideation. Laboratory Data: Reviewed. Impression: Bipolar disorder, depressed with psychotic features. Anxiety disorder unspecified. Impulse control disorder unspecified. Plan: Continue the patient on Abilify 5 mg a day along with Wellbutrin and Cymbalta. Maintain rest of the psychotropics unchanged. We may need to increase Abilify depending on how she does. Assessment: Vital Signs/I&O: Vital Signs Date Time Temp Pulse Resp B/P (MAP) Pulse Ox O2 Delivery O2 Flow Rate FiO2 03/07/21 09:00 72 152/74 03/07/21 05:39 98.1 18 92 Nasal Cannula 2.0 I & O 03/06/21 03/06/21 03/07/21 15:00 23:00 07:00 Intake Total 240 ml 240 ml Balance 240 ml 240 ml Labs: Laboratory Tests Test 03/07/21 07:05 Sodium Level 143 mmol/L (136-145) Potassium Level 2.3 mmol/L (3.5-5.1) *L Chloride Level 105 mmol/L (98-107) Carbon Dioxide Level 33 mmol/L (21-32) H Anion Gap 5 (6-14) L Blood Urea Nitrogen 8 mg/dL (7-20) Creatinine 0.6 mg/dL (0.6-1.0) Estimated GFR (Cockcroft-Gault) 99.1 BUN/Creatinine Ratio 13 (6-20) Glucose Level 133 mg/dL (70-99) H Calcium Level 9.5 mg/dL (8.5-10.1) Total Bilirubin 0.7 mg/dL (0.2-1.0) Aspartate Amino Transferase (AST) 17 U/L (15-37) Alanine Aminotransferase (ALT) 24 U/L (14-59) Alkaline Phosphatase 192 U/L (46-116) H Total Protein 7.0 g/dL (6.4-8.2) Albumin 2.6 g/dL (3.4-5.0) L Albumin/Globulin Ratio 0.6 (1.0-1.7) L Current Medications: Meds: Laboratory Tests Test 03/07/21 07:05 Sodium Level 143 mmol/L Potassium Level 2.3 mmol/L Chloride Level 105 mmol/L Carbon Dioxide Level 33 mmol/L Anion Gap 5 Blood Urea Nitrogen 8 mg/dL Creatinine 0.6 mg/dL Estimated GFR (Cockcroft-Gault) 99.1 BUN/Creatinine Ratio 13 Glucose Level 133 mg/dL Calcium Level 9.5 mg/dL Total Bilirubin 0.7 mg/dL Aspartate Amino Transf (AST/SGOT) 17 U/L Alanine Aminotransferase (ALT/SGPT) 24 U/L Alkaline Phosphatase 192 U/L Total Protein 7.0 g/dL Albumin 2.6 g/dL Albumin/Globulin Ratio 0.6 Current Medications Medications (Trade) Dose Ordered Sig/Mya Route PRN Reason Start Time Stop Time Status Last Admin Dose Admin Acetaminophen (Tylenol) 650 mg PRN Q6HRS PRN PO MILD PAIN / TEMP > 100.3'F 02/16/21 15:45 03/04/21 09:21 DC 02/18/21 06:31 Multi-Ingredient Ointment (Analgesic [place]) 1 debra PRN QID PRN TP MUSCLE PAIN 02/16/21 15:45 03/04/21 09:21 DC Al Hydroxide/Mg Hydroxide (Mylanta Plus Xs) 15 ml PRN AFTMEALHC PRN PO DYSPEPSIA 02/16/21 15:45 03/04/21 22:05 Magnesium Hydroxide (Milk Of Magnesia) 2,400 mg PRN QHS PRN PO 1ST CHOICE CONSTIPATION 02/16/21 15:45 03/04/21 09:21 DC Acetaminophen (Tylenol) 1,000 mg Q6HRS PRN PO pain or fever 02/16/21 17:00 02/16/21 17:35 DC Acetaminophen (Tylenol) 500 mg Q4HRS PRN PO MILD PAIN 1-3 02/16/21 17:00 02/16/21 17:36 DC Bisacodyl (Dulcolax Tab) 5 mg PRN DAILY PRN PO 2ND CHOICE CONSTIPATION 02/16/21 17:00 03/04/21 09:21 DC Vitamin D (Vitamin D3) 50,000 unit WEEKLY PO 02/22/21 09:00 03/04/21 09:21 DC 02/22/21 07:16 Clonazepam (KlonoPIN) 0.5 mg BID PO 02/16/21 21:00 02/27/21 19:54 DC 02/27/21 10:11 Dicyclomine HCl (Bentyl) 20 mg TID PO 02/16/21 21:00 03/04/21 09:21 DC 03/03/21 21:07 Diphenoxylate HCl/ Atropine (Lomotil) 2 tab BID PO 02/16/21 21:00 03/04/21 09:21 DC 03/03/21 21:08 Divalproex Sodium (Depakote Er) 1,000 mg HS PO 02/16/21 21:00 03/04/21 21:43 Duloxetine HCl (Cymbalta) 30 mg BID PO 02/16/21 21:00 03/06/21 08:14 Fluticasone Propionate (Flonase) 2 spray DAILY NS 02/17/21 09:00 03/06/21 08:15 Furosemide (Lasix) 20 mg DAILY PO 02/17/21 09:00 03/04/21 09:21 DC 03/03/21 08:32 Gabapentin (Neurontin) 300 mg QID PO 02/16/21 17:00 03/06/21 16:36 Hydroxyurea (Hydrea) 1,000 mg DAILY PO 02/17/21 09:00 03/06/21 08:30 Levetiracetam (Keppra) 250 mg BID PO 02/16/21 21:00 03/02/21 14:48 DC 03/02/21 09:54 Lidocaine (Lidoderm) 1 patch DAILY TP 02/17/21 09:00 02/17/21 09:24 DC Al Hydroxide/Mg Hydroxide (Mylanta Plus Xs) 15 ml PRN AFTMEALHC PRN PO DYSPEPSIA 02/16/21 17:00 02/16/21 17:36 DC Mirabegron (Myrbetriq) 50 mg DAILY PO 02/17/21 09:00 03/04/21 09:21 DC 03/03/21 08:30 Nystatin (Nystop) 1 debra BID TP 02/16/21 21:00 03/06/21 21:00 Pantoprazole Sodium (Protonix) 40 mg DAILYAC PO 02/17/21 07:30 03/06/21 08:14 Potassium Chloride (Klor-Con) 40 meq DAILY PO 02/17/21 09:00 03/04/21 09:21 DC 03/03/21 08:32 Sulfasalazine (Azulfidine) 500 mg TID PO 02/16/21 21:00 03/06/21 13:05 Trazodone HCl (Desyrel) 50 mg QHS PO 02/16/21 21:00 03/04/21 21:43 Non-Formulary Medication (Albuterol Sulfate (Albuterol Sulfate Conc Neb Soln)) 1 vial PRN Q4HRS PRN NEB SHORTNESS OF BREATH 02/16/21 17:00 02/16/21 17:49 DC Ascorbic Acid (Vitamin C) 1,000 mg DAILY PO 02/17/21 09:00 03/04/21 09:21 DC 03/03/21 08:34 Diltiazem HCl (Cardizem) 60 mg BID PO 02/16/21 21:00 03/06/21 08:13 Lactobacillus Rhamnosus (Culturelle) 1 cap DAILY PO 02/17/21 09:00 03/04/21 09:21 DC 03/03/21 08:32 Amylase/Lipase/ Protease (Zenpep 10,000) 1 cap TIDBFRMEAL PO 02/17/21 07:30 03/06/21 16:36 Non-Formulary Medication (Magnesium Hydroxide (Milk Of Magnesia)) 2,400 mg PRN DAILY PRN PO CONSTIPATION 02/16/21 17:00 02/16/21 17:37 DC Magnesium Oxide (Magnesium Oxide) 400 mg DAILY PO 02/17/21 09:00 03/04/21 09:21 DC 03/03/21 08:31 Non-Formulary Medication (Methyl Salicylate/ Menthol (Analgesic [place])) 1 debra PRN Q6HRS PRN TP MUSCLE PAIN 02/16/21 17:00 02/16/21 17:37 DC Non-Formulary Medication (Umeclidinium [place] (Incruse Ellipta)) 62.5 mcg DAILY IH 02/17/21 09:00 02/16/21 17:49 DC Non-Formulary Medication (Zinc Gluconate ) 50 mg DAILY PO 02/17/21 09:00 02/16/21 17:46 DC Albuterol/ Ipratropium (Duoneb) 3 ml RTQID NEB 02/16/21 20:00 02/17/21 19:52 DC Albuterol Sulfate (Ventolin) 2.5 mg PRN Q4HRS PRN NEB SHORTNESS OF BREATH 02/16/21 18:00 Influenza Virus Vaccine Quadrival (Flulaval Quad [id number] Syringe) 0.5 ml ONCE ONCE VAX IM 02/17/21 09:00 02/17/21 09:01 DC 02/17/21 09:21 Lidocaine (Lidoderm) 1 patch DAILY PRN TP pain 02/17/21 09:30 02/27/21 10:11 Albuterol/ Ipratropium (Combivent Respimat 20-100 Mcg) 1 puff RTQID INH 02/17/21 20:00 03/06/21 20:00 Sertraline HCl (Zoloft) 25 mg DAILY PO 02/22/21 09:00 02/24/21 10:00 DC 02/24/21 09:59 Sertraline HCl (Zoloft) 50 mg DAILY PO 02/25/21 09:00 03/01/21 18:30 DC 03/01/21 10:07 Olanzapine (ZyPREXA ZYDIS) 5 mg 1X ONCE PO 02/26/21 12:03 02/26/21 12:09 DC 02/26/21 12:25 Clonazepam (KlonoPIN) 0.5 mg DAILY PO 02/28/21 09:00 03/02/21 07:00 DC 03/01/21 10:07 Bupropion HCl (Wellbutrin Xl) 150 mg DAILY PO 03/02/21 09:00 03/06/21 08:13 Levetiracetam (Keppra) 250 mg DAILY PO 03/03/21 09:00 03/06/21 08:14 Aripiprazole (Abilify) 5 mg DAILY PO 03/05/21 09:00 03/06/21 08:33 Ondansetron HCl (Zofran Odt) 4 mg PRN Q4HRS PRN PO NAUSEA/VOMITING 03/06/21 19:30 03/06/21 19:46 Potassium Chloride (Klor-Con) 30 meq BID PO 03/07/21 09:00 Current Medications Medications (Trade) Dose Ordered Sig/Mya Route PRN Reason Start Time Stop Time Status Last Admin Dose Admin Ondansetron HCl (Zofran Odt) 4 mg PRN Q4HRS PRN PO NAUSEA/VOMITING 03/06/21 19:30 03/06/21 19:46 I have reviewed the current psychotropics carefully including drug interactions. Risk benefit ratio favors no change other than as noted in my dictated progress note. Diagnosis: Problems: (1) Bipolar affective, depress, sev w/ psych (2) Anxiety disorder, unspecified (3) Mild cognitive impairment (4) Impulse control disorder, unspecified NITHIN STEVENS MD Mar 07, 2021 10:05
--- NOTE | 2021-03-07 14:08 | NUR ---
SW made a referral for pt to hospice as pt has had a significant decline in the last 7-10 days. Upon admission to [facility], pt was A/O x 3 with behaviors such as removing her oxygen (2L) and placing herself on the floor. Within this last week, pt has continued to decline in that pt is currently being checked for c-diff, has a critical potassium, refusing medications and needs full assist x 2 with ADL's and transfers. Pt has also declined with her meal intake from 75% of meals to <25% of meals. On admission (02/16) pt weighed 117.7lbs and as of today (03/07) pt weighs 103.8 lbs. The team would like to have pt evaluated for hospice due to concerns that pt may be "willing herself to " and is physically showing a decline since admission.
[2021-03-07 14:56] LABS: BASO % 0 % (0-3); EOS # 0.1 x10^3/uL (0.0-0.7); EOS % 1 % (0-3); HEMATOCRIT 35.9 % (36.0-47.0); LYMPH # 0.6 x10^3/uL (1.0-4.8); LYMPH % 7 % (24-48); MEAN CORPUSCULAR HEMOGLOBIN 36 pg (25-35); MEAN CORPUSCULAR HGB CONC 34 g/dL (31-37); MEAN CORPUSCULAR VOLUME 108 fL (79-100); MONO % 12 % (0-9); NEUT # 6.8 x10^3uL (1.8-7.7); NEUT % 80 % (31-73); PLATELET COUNT 225 x10^3/uL (140-400); RED BLOOD COUNT 3.31 x10^6/uL (3.50-5.40); RED CELL DISTRIBUTION WIDTH 16.9 % (11.5-14.5); WHITE BLOOD COUNT 8.5 x10^3/uL (4.0-11.0)
[2021-03-07 16:02] VITALS: BP 116/69
--- NOTE | 2021-03-07 16:18 | NUR ---
BUSTER contacted Edelmira with [facility] and discussed sending over a referral for pt to receive services. BUSTER mentioned pt needing placement and wanted to make sure [facility] covered that area and would even look at the potential of having pt in the [facility]. Edelmira will notify their intake dept that a referral was going to be coming in and would get back to BUSTER on their answer re: services.
--- NOTE | 2021-03-07 16:18 | NUR ---
Nursing Note This morning patient was not receptive to any treatments offered by the nurse. Patient did not eat breakfast, lunch, and would not consume any fluids. When asked to take her medication pt. refused. Patient has not been able to hold any food down as well. Patient had a small amount of vomit on the side of her bed due nausea. Asked pt. if she would like something for the nausea pt. declined. Patient later took her potassium/Gatorade from the other nurse on or around 1345hrs. Patient has reported feeling better since this morning and stated; "I will try to eat dinner." Nurse will continue to monitor pt. throughout shift.
--- NOTE | 2021-03-07 17:18 | NUR ---
Nursing Note Spoke with Speech patho about the change in condition for pt. I explained I have not experienced any behaviors with the pt. besides not wanting to eat and take medications earlier today. Pt. took evening medications whole w/o aspiration issues.
[2021-03-07] MEDS: traZODone 50 MG TABLET. PO SCH (20:41)
--- NOTE | 2021-03-07 21:52 | PDOC ---
Exam Note: Napoleon Note: Please also refer to the separate dictated note~for this date of service dictated separately.~Patient seen individually. Discussed the patient with Nursing staff reviewed the chart.~Reviewed interim history and current functioning. Reviewed vital signs,~Labs/ Radiology~and current medications noted below. Continue current treatment with the changes noted in the dictated addendum note Assessment: Vital Signs/I&O: Vital Signs Date Time Temp Pulse Resp B/P (MAP) Pulse Ox O2 Delivery O2 Flow Rate FiO2 03/07/21 20:41 74 116/69 03/07/21 16:02 98.1 16 95 2.0 03/07/21 05:39 Nasal Cannula I & O 0 03/06/21 03/06/21 03/07/21 15:00 23:00 07:00 Intake Total 240 ml 240 ml Balance 240 ml 240 ml Labs: Laboratory Tests Test 03/07/21 07:05 03/07/21 14:41 Sodium Level 143 mmol/L (136-145) Potassium Level 2.3 mmol/L (3.5-5.1) *L Chloride Level 105 mmol/L (98-107) Carbon Dioxide Level 33 mmol/L (21-32) H Anion Gap 5 (6-14) L Blood Urea Nitrogen 8 mg/dL (7-20) Creatinine 0.6 mg/dL (0.6-1.0) Estimated GFR (Cockcroft-Gault) 99.1 BUN/Creatinine Ratio 13 (6-20) Glucose Level 133 mg/dL (70-99) H Calcium Level 9.5 mg/dL (8.5-10.1) Total Bilirubin 0.7 mg/dL (0.2-1.0) Aspartate Amino Transferase (AST) 17 U/L (15-37) Alanine Aminotransferase (ALT) 24 U/L (14-59) Alkaline Phosphatase 192 U/L (46-116) H Total Protein 7.0 g/dL (6.4-8.2) Albumin 2.6 g/dL (3.4-5.0) L Albumin/Globulin Ratio 0.6 (1.0-1.7) L White Blood Count 8.5 x10^3/uL (4.0-11.0) Red Blood Count 3.31 x10^6/uL (3.50-5.40) L Hemoglobin 12.0 g/dL (12.0-15.5) Hematocrit 35.9 % (36.0-47.0) L Mean Corpuscular Volume 108 fL (79-100) H Mean Corpuscular Hemoglobin 36 pg (25-35) H Mean Corpuscular Hemoglobin Concent 34 g/dL (31-37) Red Cell Distribution Width 16.9 % (11.5-14.5) H Platelet Count 225 x10^3/uL (140-400) Neutrophils (%) (Auto) 80 % (31-73) H Lymphocytes (%) (Auto) 7 % (24-48) L Monocytes (%) (Auto) 12 % (0-9) H Eosinophils (%) (Auto) 1 % (0-3) Basophils (%) (Auto) 0 % (0-3) Neutrophils # (Auto) 6.8 x10^3uL (1.8-7.7) Lymphocytes # (Auto) 0.6 x10^3/uL (1.0-4.8) L Monocytes # (Auto) 1.0 x10^3/uL (0.0-1.1) Eosinophils # (Auto) 0.1 x10^3/uL (0.0-0.7) Basophils # (Auto) 0.0 x10^3/uL (0.0-0.2) Current Medications: Meds: Laboratory Tests Test 03/07/21 07:05 03/07/21 14:41 Sodium Level 143 mmol/L Potassium Level 2.3 mmol/L Chloride Level 105 mmol/L Carbon Dioxide Level 33 mmol/L Anion Gap 5 Blood Urea Nitrogen 8 mg/dL Creatinine 0.6 mg/dL Estimated GFR (Cockcroft-Gault) 99.1 BUN/Creatinine Ratio 13 Glucose Level 133 mg/dL Calcium Level 9.5 mg/dL Total Bilirubin 0.7 mg/dL Aspartate Amino Transf (AST/SGOT) 17 U/L Alanine Aminotransferase (ALT/SGPT) 24 U/L Alkaline Phosphatase 192 U/L Total Protein 7.0 g/dL Albumin 2.6 g/dL Albumin/Globulin Ratio 0.6 White Blood Count 8.5 x10^3/uL Red Blood Count 3.31 x10^6/uL Hemoglobin 12.0 g/dL Hematocrit 35.9 % Mean Corpuscular Volume 108 fL Mean Corpuscular Hemoglobin 36 pg Mean Corpuscular Hemoglobin Concent 34 g/dL Red Cell Distribution Width 16.9 % Platelet Count 225 x10^3/uL Neutrophils (%) (Auto) 80 % Lymphocytes (%) (Auto) 7 % Monocytes (%) (Auto) 12 % Eosinophils (%) (Auto) 1 % Basophils (%) (Auto) 0 % Neutrophils # (Auto) 6.8 x10^3uL Lymphocytes # (Auto) 0.6 x10^3/uL Monocytes # (Auto) 1.0 x10^3/uL Eosinophils # (Auto) 0.1 x10^3/uL Basophils # (Auto) 0.0 x10^3/uL Current Medications Medications (Trade) Dose Ordered Sig/Mya Route PRN Reason Start Time Stop Time Status Last Admin Dose Admin Acetaminophen (Tylenol) 650 mg PRN Q6HRS PRN PO MILD PAIN / TEMP > 100.3'F 02/16/21 15:45 03/04/21 09:21 DC 02/18/21 06:31 Multi-Ingredient Ointment (Analgesic Banks) 1 debra PRN QID PRN TP MUSCLE PAIN 02/16/21 15:45 03/04/21 09:21 DC Al Hydroxide/Mg Hydroxide (Mylanta Plus Xs) 15 ml PRN AFTMEALHC PRN PO DYSPEPSIA 02/16/21 15:45 03/04/21 22:05 Magnesium Hydroxide (Milk Of Magnesia) 2,400 mg PRN QHS PRN PO 1ST CHOICE CONSTIPATION 02/16/21 15:45 03/04/21 09:21 DC Acetaminophen (Tylenol) 1,000 mg Q6HRS PRN PO pain or fever 02/16/21 17:00 02/16/21 17:35 DC Acetaminophen (Tylenol) 500 mg Q4HRS PRN PO MILD PAIN 1-3 02/16/21 17:00 02/16/21 17:36 DC Bisacodyl (Dulcolax Tab) 5 mg PRN DAILY PRN PO 2ND CHOICE CONSTIPATION 02/16/21 17:00 03/04/21 09:21 DC Vitamin D (Vitamin D3) 50,000 unit WEEKLY PO 02/22/21 09:00 03/04/21 09:21 DC 02/22/21 07:16 Clonazepam (KlonoPIN) 0.5 mg BID PO 02/16/21 21:00 02/27/21 19:54 DC 02/27/21 10:11 Dicyclomine HCl (Bentyl) 20 mg TID PO 02/16/21 21:00 03/04/21 09:21 DC 03/03/21 21:07 Diphenoxylate HCl/ Atropine (Lomotil) 2 tab BID PO 02/16/21 21:00 03/04/21 09:21 DC 03/03/21 21:08 Divalproex Sodium (Depakote Er) 1,000 mg HS PO 02/16/21 21:00 03/07/21 20:15 DC 03/04/21 21:43 Duloxetine HCl (Cymbalta) 30 mg BID PO 02/16/21 21:00 03/07/21 20:15 DC 03/06/21 08:14 Fluticasone Propionate (Flonase) 2 spray DAILY NS 02/17/21 09:00 03/06/21 08:15 Furosemide (Lasix) 20 mg DAILY PO 02/17/21 09:00 03/04/21 09:21 DC 03/03/21 08:32 Gabapentin (Neurontin) 300 mg QID PO 02/16/21 17:00 03/07/21 20:41 Hydroxyurea (Hydrea) 1,000 mg DAILY PO 02/17/21 09:00 03/06/21 08:30 Levetiracetam (Keppra) 250 mg BID PO 02/16/21 21:00 03/02/21 14:48 DC 03/02/21 09:54 Lidocaine (Lidoderm) 1 patch DAILY TP 02/17/21 09:00 02/17/21 09:24 DC Al Hydroxide/Mg Hydroxide (Mylanta Plus Xs) 15 ml PRN AFTMEALHC PRN PO DYSPEPSIA 02/16/21 17:00 02/16/21 17:36 DC Mirabegron (Myrbetriq) 50 mg DAILY PO 02/17/21 09:00 03/04/21 09:21 DC 03/03/21 08:30 Nystatin (Nystop) 1 debra BID TP 02/16/21 21:00 03/07/21 20:42 Pantoprazole Sodium (Protonix) 40 mg DAILYAC PO 02/17/21 07:30 03/06/21 08:14 Potassium Chloride (Klor-Con) 40 meq DAILY PO 02/17/21 09:00 03/04/21 09:21 DC 03/03/21 08:32 Sulfasalazine (Azulfidine) 500 mg TID PO 02/16/21 21:00 03/07/21 20:15 DC 03/06/21 13:05 Trazodone HCl (Desyrel) 50 mg QHS PO 02/16/21 21:00 03/07/21 20:41 Non-Formulary Medication (Albuterol Sulfate (Albuterol Sulfate Conc Neb Soln)) 1 vial PRN Q4HRS PRN NEB SHORTNESS OF BREATH 02/16/21 17:00 02/16/21 17:49 DC Ascorbic Acid (Vitamin C) 1,000 mg DAILY PO 02/17/21 09:00 03/04/21 09:21 DC 03/03/21 08:34 Diltiazem HCl (Cardizem) 60 mg BID PO 02/16/21 21:00 03/07/21 20:41 Lactobacillus Rhamnosus (Culturelle) 1 cap DAILY PO 02/17/21 09:00 03/04/21 09:21 DC 03/03/21 08:32 Amylase/Lipase/ Protease (Zenpep 10,000) 1 cap TIDBFRMEAL PO 02/17/21 07:30 03/07/21 16:54 Non-Formulary Medication (Magnesium Hydroxide (Milk Of Magnesia)) 2,400 mg PRN DAILY PRN PO CONSTIPATION 02/16/21 17:00 02/16/21 17:37 DC Magnesium Oxide (Magnesium Oxide) 400 mg DAILY PO 02/17/21 09:00 03/04/21 09:21 DC 03/03/21 08:31 Non-Formulary Medication (Methyl Salicylate/ Menthol (Analgesic Banks)) 1 debra PRN Q6HRS PRN TP MUSCLE PAIN 02/16/21 17:00 02/16/21 17:37 DC Non-Formulary Medication (Umeclidinium Baring (Incruse Ellipta)) 62.5 mcg DAILY IH 02/17/21 09:00 02/16/21 17:49 DC Non-Formulary Medication (Zinc Gluconate ) 50 mg DAILY PO 02/17/21 09:00 02/16/21 17:46 DC Albuterol/ Ipratropium (Duoneb) 3 ml RTQID NEB 02/16/21 20:00 02/17/21 19:52 DC Albuterol Sulfate (Ventolin) 2.5 mg PRN Q4HRS PRN NEB SHORTNESS OF BREATH 02/16/21 18:00 Influenza Virus Vaccine Quadrival (Flulaval Quad [id number] Syringe) 0.5 ml ONCE ONCE VAX IM 02/17/21 09:00 02/17/21 09:01 DC 02/17/21 09:21 Lidocaine (Lidoderm) 1 patch DAILY PRN TP pain 02/17/21 09:30 02/27/21 10:11 Albuterol/ Ipratropium (Combivent Respimat 20-100 Mcg) 1 puff RTQID INH 02/17/21 20:00 03/07/21 20:42 Sertraline HCl (Zoloft) 25 mg DAILY PO 02/22/21 09:00 02/24/21 10:00 DC 02/24/21 09:59 Sertraline HCl (Zoloft) 50 mg DAILY PO 02/25/21 09:00 03/01/21 18:30 DC 03/01/21 10:07 Olanzapine (ZyPREXA ZYDIS) 5 mg 1X ONCE PO 02/26/21 12:03 02/26/21 12:09 DC 02/26/21 12:25 Clonazepam (KlonoPIN) 0.5 mg DAILY PO 02/28/21 09:00 03/02/21 07:00 DC 03/01/21 10:07 Bupropion HCl (Wellbutrin Xl) 150 mg DAILY PO 03/02/21 09:00 03/06/21 08:13 Levetiracetam (Keppra) 250 mg DAILY PO 03/03/21 09:00 03/06/21 08:14 Aripiprazole (Abilify) 5 mg DAILY PO 03/05/21 09:00 03/06/21 08:33 Ondansetron HCl (Zofran Odt) 4 mg PRN Q4HRS PRN PO NAUSEA/VOMITING 03/06/21 19:30 03/06/21 19:46 Potassium Chloride (Klor-Con) 30 meq BID PO 03/07/21 09:00 03/07/21 20:41 Divalproex Sodium (Depakote Er) 1,000 mg 1700 PO 03/08/21 17:00 Duloxetine HCl (Cymbalta) 30 mg 0900,1700 PO 03/08/21 17:00 Sulfasalazine (Azulfidine) 500 mg 0900,1300,1700 PO 03/08/21 09:00 Current Medications Medications (Trade) Dose Ordered Sig/Mya Route PRN Reason Start Time Stop Time Status Last Admin Dose Admin Potassium Chloride (Klor-Con) 30 meq BID PO 03/07/21 09:00 03/07/21 20:41 I have reviewed the current psychotropics carefully including drug interactions. Risk benefit ratio favors no change other than as noted in my dictated progress note. Diagnosis: Problems: (1) Bipolar affective, depress, sev w/ psych (2) Anxiety disorder, unspecified (3) Impulse control disorder, unspecified NITHIN STEVENS MD Mar 07, 2021 21:52
--- NOTE | 2021-03-07 22:00 | NUR ---
Per conversation with Dr Duffy, several of patients HS medications have been moved to 1700. Patient has history of being increasingly resistive to medications at HS and the earlier time will help with compliance. Patient was awake and sitting in wheelchair in her room tonight when this nurse came on shift. Patient did not experience vomiting or diarrhea this shift. She kept her oxygen on and did not make any SI statements. Patient appears to be feeling better tonight, she drank a bottle of poweraide and took medications whole, she had no difficulty swallowing them. Patient is on supplemental potassium BID as her potassium level was critical at 2.3 this morning. Patient stated she does not like the medications crushed in applesauce because it tastes horrible. She was interactive with this nurse, pleasant and calm.
[2021-03-08 06:24] VITALS: BP 129/70
[2021-03-08] MEDS: IPRATROPIUM/ALBUTEROL 20/100mcg/INH INHALER. INH SCH ×4 (08:00→20:48)
[2021-03-08] MEDS: sulfaSALAzine 500 MG TABLET PO SCH ×3 (08:39→16:57)
[2021-03-08] MEDS: POTASSIUM CHLORIDE 10 MEQ TABLET.ER. PO SCH ×2 (08:40→20:46)
[2021-03-08] MEDS: dilTIAZem HCL 30 MG TABLET PO SCH ×2 (08:40→20:45)
[2021-03-08] MEDS: GABAPENTIN 300 MG CAPSULE. PO SCH ×4 (08:40→20:47)
[2021-03-08] MEDS: levETIRAcetam 250 MG TABLET PO SCH (08:40)
[2021-03-08] MEDS: ARIPiprazole 5 MG TABLET PO SCH (08:41)
[2021-03-08] MEDS: FLUTICASONE 50MCG/NASAL SPRAY 16GM BOTTLE. NS SCH (08:41)
[2021-03-08] MEDS: PANTOPRAZOLE 40 MG TABLET. PO SCH (08:41)
[2021-03-08] MEDS: buPROPion XL 150 MG TAB.ER.24H PO SCH (08:41)
[2021-03-08] MEDS: HYDROXYUREA 500 MG CAPSULE PO SCH (08:41)
[2021-03-08] MEDS: LIPASE/PROTEAS/AMYLAS 10/32/42 CAPSULE.DR. PO SCH ×3 (08:41→16:58)
[2021-03-08] MEDS: NYSTATIN TOPICAL POWDER 15GM BOTTLE. TP SCH ×2 (08:50→20:48)
--- NOTE | 2021-03-08 09:45 | NUR ---
Pt remains withdrawn and does not interact much with others. She does appear to be more awake and alert in comparison to previous days. She is absent of SI/HI behaviors, absent of VH/AH/delusions/pain at this time. O2 at 3 LPM via NC present and has not been removed by pt so far this shift. She is compliant with medications crushed and mixed into pudding. Pt has been absent of N/V/D episodes so far. Plan of care continues, will pass to next shift.
--- NOTE | 2021-03-08 09:57 | NUR ---
SW received call from randall Hickey with [facility] who reports that pt is very appropriate for hospice. They are able to admit pt whenever possible. SW inquired what facilities they work with so that SW can send referrals there. Edelmira will plan to call a few of them and contact BUSTER back to see if she can be of assistance with the discharge plans.
--- NOTE | 2021-03-08 12:48 | NUR ---
Pt observed during lunch to be removing her O2 NC from her face. COOLING ROOM ATTENDANT placed the NC back in pt's nares and instructed to not remove the NC or she may have to have mitts placed back on her hands again. After COOLING ROOM ATTENDANT left this nurse observed pt grabbing hold of the O2 tubing with both hands and attempting to remove it from her face a 2nd time. This nurse called out to pt by name and plainly stated "Don't take that off, Take your hands off the tube." pt then removed one hand from the O2 tubing and thrust her index finger out at me angrily, almost in a miller lecture/scolding manner. This nurse then approached pt and once again verbally requested that she let go of the O2 tubing and to not attempt further removal. Pt continued to fly raiser lockstitch onto the O2 tubing, and removed it from one ear, stating "But I need to go to the bathroom." This nurse as able to remove pt's fly raiser lockstitch from the tubing and place the NC back into her nares correctly. Pt then stopped further removal attempts and began to eat her lunch.
[2021-03-08 15:47] VITALS: BP 114/69
[2021-03-08] MEDS ORDERED: POTASSIUM CHLORIDE 20 MEQ TABLET.ER. PO SCH (16:30)
[2021-03-08] MEDS: DULoxetine HCL 30 MG CAPSULE.DR PO SCH (16:58)
[2021-03-08] MEDS: DIVALPROEX ER 500 MG TAB.ER.24H PO SCH (16:58)
[2021-03-08] MEDS: POTASSIUM CHLORIDE 20 MEQ TABLET.ER. PO SCH ×2 (17:15→17:56)
--- NOTE | 2021-03-08 17:21 | NUR ---
Potassium 40 mEq PO already administered to pt when order was changed (time for administrations) this caused a secondary (duplicate) order and d/c the original order. The 1st of 2 doses in the second order is charted as a non-administration.
[2021-03-08 20:39] LABS: CALCIUM 9.3 mg/dL (8.5-10.1); CREATININE 0.7 mg/dL (0.6-1.0); POTASSIUM 3.1 mmol/L (3.5-5.1)
[2021-03-08] MEDS: traZODone 50 MG TABLET. PO SCH (20:46)
--- NOTE | 2021-03-08 23:55 | NUR ---
Pt resistive to HS medications, eventually compliant with crushed medications after several attempts. More alert. Compliant with shower. Pt did not attempt to remove O2. No SI statements. Addendum: 03/09/21 at 0013 by MERI CHACON RN Pt's K+ lab at 3.1. Attempted to notify Dr. Clark via text and cell phone. Did not receive call back.
--- NOTE | 2021-03-09 00:23 | PN ---
DATE: 03/06/2021 PSYCHIATRIC PROGRESS NOTE: This late entry 03/06/2021 covers elements not covered in my initial note 03/06/2021. SUBJECTIVE: I met with the patient in the evening of 03/06/2021. Discussed with CORTNEY Rodriges. The patient slept 8-3/4 hours previous night. She has had some vomiting and diarrhea is being checked for C. diff. Temperature was 99 degrees Fahrenheit. She has some lung crackles and I will defer to Dr. Clark/Dr. Cheng for possible pneumonia workup and treatment. We will check labs in the morning. Previous night, she was quite agitated, spitting out her medications, hitting out at nursing staff. REVIEW OF SYSTEMS: Shortness of breath, on oxygen supplements, impaired ambulation in wheelchair. Complains of tiredness. No CV, , GI, eye system symptoms on review. MENTAL STATUS EXAMINATION: Oriented to herself, situation. Speech has moderate latency, low in rate and rhythm, low in volume. Abstraction fair. Computation impaired. Language function intact. Mood and affect remains depressed. No active suicidal ideation. LABORATORY DATA: Reviewed. IMPRESSION: Bipolar 1 disorder, depressed, anxiety disorder, unspecified. Rest unchanged from before. PLAN: Continue current psychotropics, Wellbutrin, Abilify, Depakote, Cymbalta, gabapentin, and she is also on Keppra for seizures, trazodone for insomnia. Check labs in the morning of 03/07/2021. Adjust further as clinically indicated. FABY DR: Hank TID: [id number]
[2021-03-09 05:38] VITALS: BP 132/69
[2021-03-09] MEDS: PANTOPRAZOLE 40 MG TABLET. PO SCH (08:11)
[2021-03-09] MEDS: LIPASE/PROTEAS/AMYLAS 10/32/42 CAPSULE.DR. PO SCH ×3 (08:11→17:37)
[2021-03-09] MEDS: DULoxetine HCL 30 MG CAPSULE.DR PO SCH ×2 (08:11→17:37)
[2021-03-09] MEDS: dilTIAZem HCL 30 MG TABLET PO SCH ×2 (08:11→20:58)
[2021-03-09] MEDS: POTASSIUM CHLORIDE 10 MEQ TABLET.ER. PO SCH ×2 (08:11→20:57)
[2021-03-09] MEDS: levETIRAcetam 250 MG TABLET PO SCH (08:12)
[2021-03-09] MEDS: NYSTATIN TOPICAL POWDER 15GM BOTTLE. TP SCH ×2 (08:12→20:56)
[2021-03-09] MEDS: ARIPiprazole 5 MG TABLET PO SCH (08:12)
[2021-03-09] MEDS: GABAPENTIN 300 MG CAPSULE. PO SCH ×4 (08:12→20:57)
[2021-03-09] MEDS: buPROPion XL 300 MG TAB.ER.24H. PO SCH (08:12)
[2021-03-09] MEDS: sulfaSALAzine 500 MG TABLET PO SCH ×3 (08:13→17:37)
[2021-03-09] MEDS: IPRATROPIUM/ALBUTEROL 20/100mcg/INH INHALER. INH SCH ×4 (08:13→20:56)
[2021-03-09] MEDS: FLUTICASONE 50MCG/NASAL SPRAY 16GM BOTTLE. NS SCH (08:14)
[2021-03-09] MEDS: HYDROXYUREA 500 MG CAPSULE PO SCH (08:22)
--- NOTE | 2021-03-09 08:31 | PDOC ---
Exam Note: Napoleon Note: Late entry for 03/08/2021. Please also refer to the separate dictated note~for this date of service dictated separately.~Patient seen individually. Discussed the patient with Nursing staff reviewed the chart.~Reviewed interim history and current functioning. Reviewed vital signs,~Labs/ Radiology~and current medic ations noted below. Continue current treatment with the changes noted in the dictated addendum note Assessment: Vital Signs/I&O: Vital Signs Date Time Temp Pulse Resp B/P (MAP) Pulse Ox O2 Delivery O2 Flow Rate FiO2 03/09/21 08:11 78 132/69 03/09/21 05:38 97.5 20 94 2.0 03/07/21 05:39 Nasal Cannula I & O 03/08/21 03/08/21 03/09/21 15:00 23:00 07:00 Intake Total 720 ml 840 ml Balance 720 ml 840 ml Labs: Laboratory Tests Test 03/08/21 20:20 Sodium Level 144 mmol/L (136-145) Potassium Level 3.1 mmol/L (3.5-5.1) L Chloride Level 106 mmol/L (98-107) Carbon Dioxide Level 28 mmol/L (21-32) Anion Gap 10 (6-14) Blood Urea Nitrogen 7 mg/dL (7-20) Creatinine 0.7 mg/dL (0.6-1.0) Estimated GFR (Cockcroft-Gault) 83.0 Glucose Level 140 mg/dL (70-99) H Calcium Level 9.3 mg/dL (8.5-10.1) Current Medications: Meds: Current Medications Medications (Trade) Dose Ordered Sig/Mya Route PRN Reason Start Time Stop Time Status Last Admin Dose Admin Divalproex Sodium (Depakote Er) 1,000 mg 1700 PO 03/08/21 17:00 03/08/21 16:58 Duloxetine HCl (Cymbalta) 30 mg 0900,1700 PO 03/08/21 17:00 03/09/21 08:11 Sulfasalazine (Azulfidine) 500 mg 0900,1300,1700 PO 03/08/21 09:00 03/09/21 08:13 Bupropion HCl (Wellbutrin Xl) 300 mg DAILY PO 03/09/21 09:00 03/09/21 08:12 Potassium Chloride (Klor-Con) 40 meq 1630,1730 PO 03/08/21 16:30 03/08/21 18:04 DC 03/08/21 16:57 Potassium Chloride (Klor-Con) 40 meq 1700,1800 PO 03/08/21 17:15 03/08/21 18:04 DC 03/08/21 17:56 I have reviewed the current psychotropics carefully including drug interactions. Risk benefit ratio favors no change other than as noted in my dictated progress note. Diagnosis: Problems: (1) Mild cognitive impairment (2) Impulse control disorder, unspecified (3) Anxiety disorder, unspecified (4) Bipolar affective, depress, sev w/ psych NITHIN STEVENS MD Mar 09, 2021 08:31
--- NOTE | 2021-03-09 09:27 | PN ---
DATE: 03/07/2021 PSYCHIATRIC PROGRESS NOTE This late entry 03/07/2021 covers elements not covered in my initial note. SUBJECTIVE: I met with the patient in the evening of 03/07/2021 in her room. Per CORTNEY Rodriges, the patient slept 4-1/4 hours previous night. She has been refusing medications. Her potassium was 2.3, critical and she has been supplemented. Previous evening, she was pulling her oxygen of her nose, making statement she wanted to , but none of those statements were made on 03/07/2021. She did drink 3 Gatorades earlier in the day, but poor appetite after that. Does intermittently remove her oxygen and O2 sats dropped fairly quickly. REVIEW OF SYSTEMS: Shortness of breath, impaired ambulation in wheelchair. No CV, , GI, ENT system symptoms on review. MENTAL STATUS EXAMINATION: Oriented to herself, situation. Speech slow in rate and rhythm, low in volume. Abstraction fair. Computation impaired. Language function intact. Mood and affect depressed. Labs reviewed. IMPRESSION: Bipolar disorder, depressed, anxiety disorder, unspecified. Rest as above. PLAN: From a psychiatric standpoint, we will change the Depakote ER 1000 mg at bedtime to 5:00 p.m. since she often refuses the nighttime dosage of medications, but does take it earlier in the day. Supplement the potassium. I addressed with her vague statements of wanting to be and she denies this. REVIEW OF SYSTEMS: Shortness of breath. No CV, GI, , eye system symptoms on review. MENTAL STATUS EXAM: The patient is awake, alert, oriented. Speech slow in rate and rhythm, low in volume. Abstraction fair. Computation impaired. Language function intact. Attention span short. Mood and affect withdrawn. LABS: Reviewed. IMPRESSION: Bipolar disorder, depressed, anxiety disorder, unspecified; major depressive disorder. PLAN: Change the Depakote ER 1000 mg at bedtime to 5:00 p.m. Change Cymbalta to a.m. and 5:00 p.m. Supplement the potassium. Adjust further as clinically indicated. PAYTON/NYLA/AIDAN DR: Hank TID: [id number]
--- NOTE | 2021-03-09 11:08 | NUR ---
WEEKLY ACTIVITY THERAPY NOTE Date of Admission:02/16/21 Date of AT Assessment: 02/17 Precipitating behaviors that initiated intake and admission:putting self on floor, combative towards staff, refusing O2, threw medications, expresses she wants to & removes O2 Goal aimed: increase socialization and engagement Initial Goal: Pt will participate in at least three individual or group Activity Therapy sessions per week Weekly progress towards goal: did not achieve, 1/3 Group participation level: 1 min Weekly highlights: answered would you rather questions Saturday Behaviors observed: withdrawn to room Plan: no change to goal Beneficial adaptations: prompting and encouragement
--- NOTE | 2021-03-09 13:26 | NUR ---
Nursing note: Pt in dining room at time of AM med pass and assessment. She is pleasant, compliant with meds crushed and cooperative with assessment. Pt did take her oxygen off a couple times at meal times, but was cooperative in letting staff replace it. No SI statements noted this shift. She is currently in the day room. Will continue to monitor.
--- NOTE | 2021-03-09 15:11 | NUR ---
Treatment team update: Pt is eating less than 25% of meals and sleeping on average 8.5 hours per night. Pt is more alert but continues to have random periods of taking off her oxygen. Pt is not making any SI statements and is more compliant with medications crushed and floated. Pt continues to have Potassium level concerns and nursing is working with the hospitalist on her levels. Pt has attended 1 group this week with minimal participation. SW has submitted referrals to four different facilities with denials, despite knowing that pt will return to them on hospice services through [facility]. BUSTER will continue looking for placement and keep pt son updated.
--- NOTE | 2021-03-09 15:19 | TX PLAN ---
Interdisciplinary Tx Plan Admission Information Feb 16, 2021 at 15:29 Legal Status (on Admission): Voluntary DPOA/Guardian Name: Patel Moise Contact Other Contact Name: Chasity Nazario Other Contact Verified Code Status: DNR Allergies: Coded Allergies: butorphanol (Verified Allergy, Unknown, 02/13/20) cefoxitin (Verified Allergy, Unknown, 02/13/20) codeine (Verified Allergy, Unknown, 02/13/20) gluten (Verified Allergy, Unknown, 02/13/20) lactose (Verified Allergy, Unknown, 02/13/20) Diagnoses Primary Diagnosis: Bipolar D/O mixed Reasons for Admission: Suicidal ideation, Poor impulse control Problem in Patient's Words: N/A Additional Admission Comments: According to the intake, pt is putting herself on the floor, combative towards staff, refusing oxygen/removes the tubing, throwing medications, expressed that she wants to . Problems Active Problems: putting self on floor removing oxygen Inactive Problems: medication compliant Pt Strengths/Limitations Ability for [place]: Poor Cognitive Functioning/Ability: Fair Communication Skills/Ability: Fair Financial Resources: Fair Insight/Judgement: Poor Intellectual Ability: Fair Physical Health: Poor Social Skills: Poor Stability in Family: Poor Stability in School/Work: Poor Verbal Skills: Fair Discharge Criteria Discharge Criteria: Able meet basic life need, Adequate arrangements @DC, Improved behavior, Improved mood/thought Preliminary Discharge Plan Preliminary DC Plan: Current Living Arrange. Special Precautions Fall Risk: Moderate Initial D/C Plan Pt will return to [facility] once stable Identified Discharge Needs: None noted Currently Utilized Resources Currently Utilized Resources/P: Primary Care Physician Telehealth for psychiatry Referrals Community Resources: None Identified Problems/Hx/Goals Objectives/Short-Term Goals Short Term Goals: Dec. Outbursts, Medication Stabilization, Monitor Med Effects, Promote Coping Skill Short Term Goals in Patient's: N/A Interventions/Frequency Staff Interventions/Frequency&: Psychiatrist to assess pt at least 3x per week for medication management. Social Work to assess pt least 2x per week to identify barriers to care and discharge planning goals. Nursing to assess pt medication effect, behavior modification and complete 15 minute checks daily. Encourage participation in group activities (if applicable) or 1:1 engagement based off Activity Dept goals. 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 Education: Pt graduated high school in 1969 Community Follow-up Primary Care Physician Telehealth Treatment Plan Explained Patient/Information Security Consultant had this treatment plan explained to him/her as indicated by the signature below and has been given the opportunity to ask questions and make suggestions: Date: Patient/Information Security Consultant Signature: Status Update Update Pt is eating less than 25% of meals and sleeping on average 8.5 hours per night. Pt is more alert but continues to have random periods of taking off her oxygen. Pt is not making any SI statements and is more compliant with medications crushed and floated. Pt continues to have Potassium level concerns and nursing is working with the hospitalist on her levels. Pt has attended 1 group this week with minimal participation. BUSTER has submitted referrals to four different facilities with denials, despite knowing that pt will return to them on hospice services through [facility]. BUSTER will continue looking for placement and keep pt son updated. [place] BAUTISTA Mar 09, 2021 15:18
[2021-03-09 15:26] VITALS: BP 102/54
[2021-03-09] MEDS: DIVALPROEX ER 500 MG TAB.ER.24H PO SCH (17:37)
[2021-03-09] MEDS: traZODone 50 MG TABLET. PO SCH (20:58)
--- NOTE | 2021-03-09 21:29 | PDOC ---
Exam Note: Napoleon Note: Please also refer to the separate dictated note~for this date of service dictated separately.~Patient seen individually. Discussed the patient with Nursing staff reviewed the chart.~Reviewed interim history and current functioning. Reviewed vital signs,~Labs/ Radiology~and current medications noted below. Continue current treatment with the changes noted in the dictated addendum note Assessment: Vital Signs/I&O: Vital Signs Date Time Temp Pulse Resp B/P (MAP) Pulse Ox O2 Delivery O2 Flow Rate FiO2 03/09/21 20:58 88 102/54 03/09/21 15:26 98.8 18 95 Nasal Cannula 3.0 I & O 03/08/21 03/08/21 03/09/21 15:00 23:00 07:00 Intake Total 720 ml 840 ml Balance 720 ml 840 ml Labs: Laboratory Tests Test 03/09/21 06:00 SARS-CoV-2 (PCR) Not detected (NOT DETECTD) Current Medications: Meds: Laboratory Tests Test 03/09/21 06:00 Coronavirus (COVID-19)(PCR) Not detected Current Medications Medications (Trade) Dose Ordered Sig/Mya Route PRN Reason Start Time Stop Time Status Last Admin Dose Admin Acetaminophen (Tylenol) 650 mg PRN Q6HRS PRN PO MILD PAIN / TEMP > 100.3'F 02/16/21 15:45 03/04/21 09:21 DC 02/18/21 06:31 Multi-Ingredient Ointment (Analgesic [place]) 1 debra PRN QID PRN TP MUSCLE PAIN 02/16/21 15:45 03/04/21 09:21 DC Al Hydroxide/Mg Hydroxide (Mylanta Plus Xs) 15 ml PRN AFTMEALHC PRN PO DYSPEPSIA 02/16/21 15:45 03/04/21 22:05 Magnesium Hydroxide (Milk Of Magnesia) 2,400 mg PRN QHS PRN PO 1ST CHOICE CONSTIPATION 02/16/21 15:45 03/04/21 09:21 DC Acetaminophen (Tylenol) 1,000 mg Q6HRS PRN PO pain or fever 02/16/21 17:00 02/16/21 17:35 DC Acetaminophen (Tylenol) 500 mg Q4HRS PRN PO MILD PAIN 1-3 02/16/21 17:00 02/16/21 17:36 DC Bisacodyl (Dulcolax Tab) 5 mg PRN DAILY PRN PO 2ND CHOICE CONSTIPATION 02/16/21 17:00 03/04/21 09:21 DC Vitamin D (Vitamin D3) 50,000 unit WEEKLY PO 02/22/21 09:00 03/04/21 09:21 DC 02/22/21 07:16 Clonazepam (KlonoPIN) 0.5 mg BID PO 02/16/21 21:00 02/27/21 19:54 DC 02/27/21 10:11 Dicyclomine HCl (Bentyl) 20 mg TID PO 02/16/21 21:00 03/04/21 09:21 DC 03/03/21 21:07 Diphenoxylate HCl/ Atropine (Lomotil) 2 tab BID PO 02/16/21 21:00 03/04/21 09:21 DC 03/03/21 21:08 Divalproex Sodium (Depakote Er) 1,000 mg HS PO 02/16/21 21:00 03/07/21 20:15 DC 03/04/21 21:43 Duloxetine HCl (Cymbalta) 30 mg BID PO 02/16/21 21:00 03/07/21 20:15 DC 03/06/21 08:14 Fluticasone Propionate (Flonase) 2 spray DAILY NS 02/17/21 09:00 03/09/21 08:14 Furosemide (Lasix) 20 mg DAILY PO 02/17/21 09:00 03/04/21 09:21 DC 03/03/21 08:32 Gabapentin (Neurontin) 300 mg QID PO 02/16/21 17:00 03/09/21 20:57 Hydroxyurea (Hydrea) 1,000 mg DAILY PO 02/17/21 09:00 03/09/21 08:22 Levetiracetam (Keppra) 250 mg BID PO 02/16/21 21:00 03/02/21 14:48 DC 03/02/21 09:54 Lidocaine (Lidoderm) 1 patch DAILY TP 02/17/21 09:00 02/17/21 09:24 DC Al Hydroxide/Mg Hydroxide (Mylanta Plus Xs) 15 ml PRN AFTMEALHC PRN PO DYSPEPSIA 02/16/21 17:00 02/16/21 17:36 DC Mirabegron (Myrbetriq) 50 mg DAILY PO 02/17/21 09:00 03/04/21 09:21 DC 03/03/21 08:30 Nystatin (Nystop) 1 debra BID TP 02/16/21 21:00 03/09/21 20:56 Pantoprazole Sodium (Protonix) 40 mg DAILYAC PO 02/17/21 07:30 03/09/21 08:11 Potassium Chloride (Klor-Con) 40 meq DAILY PO 02/17/21 09:00 03/04/21 09:21 DC 03/03/21 08:32 Sulfasalazine (Azulfidine) 500 mg TID PO 02/16/21 21:00 03/07/21 20:15 DC 03/06/21 13:05 Trazodone HCl (Desyrel) 50 mg QHS PO 02/16/21 21:00 03/09/21 20:58 Non-Formulary Medication (Albuterol Sulfate (Albuterol Sulfate Conc Neb Soln)) 1 vial PRN Q4HRS PRN NEB SHORTNESS OF BREATH 02/16/21 17:00 02/16/21 17:49 DC Ascorbic Acid (Vitamin C) 1,000 mg DAILY PO 02/17/21 09:00 03/04/21 09:21 DC 03/03/21 08:34 Diltiazem HCl (Cardizem) 60 mg BID PO 02/16/21 21:00 03/09/21 20:58 Lactobacillus Rhamnosus (Culturelle) 1 cap DAILY PO 02/17/21 09:00 03/04/21 09:21 DC 03/03/21 08:32 Amylase/Lipase/ Protease (Zenpep 10,000) 1 cap TIDBFRMEAL PO 02/17/21 07:30 03/09/21 17:37 Non-Formulary Medication (Magnesium Hydroxide (Milk Of Magnesia)) 2,400 mg PRN DAILY PRN PO CONSTIPATION 02/16/21 17:00 02/16/21 17:37 DC Magnesium Oxide (Magnesium Oxide) 400 mg DAILY PO 02/17/21 09:00 03/04/21 09:21 DC 03/03/21 08:31 Non-Formulary Medication (Methyl Salicylate/ Menthol (Analgesic [place])) 1 debra PRN Q6HRS PRN TP MUSCLE PAIN 02/16/21 17:00 02/16/21 17:37 DC Non-Formulary Medication (Umeclidinium [place] (Incruse Ellipta)) 62.5 mcg DAILY IH 02/17/21 09:00 02/16/21 17:49 DC Non-Formulary Medication (Zinc Gluconate ) 50 mg DAILY PO 02/17/21 09:00 02/16/21 17:46 DC Albuterol/ Ipratropium (Duoneb) 3 ml RTQID NEB 02/16/21 20:00 02/17/21 19:52 DC Albuterol Sulfate (Ventolin) 2.5 mg PRN Q4HRS PRN NEB SHORTNESS OF BREATH 02/16/21 18:00 Influenza Virus Vaccine Quadrival (Flulaval Quad [id number] Syringe) 0.5 ml ONCE ONCE VAX IM 02/17/21 09:00 02/17/21 09:01 DC 02/17/21 09:21 Lidocaine (Lidoderm) 1 patch DAILY PRN TP pain 02/17/21 09:30 02/27/21 10:11 Albuterol/ Ipratropium (Combivent Respimat 20-100 Mcg) 1 puff RTQID INH 02/17/21 20:00 03/09/21 20:56 Sertraline HCl (Zoloft) 25 mg DAILY PO 02/22/21 09:00 02/24/21 10:00 DC 02/24/21 09:59 Sertraline HCl (Zoloft) 50 mg DAILY PO 02/25/21 09:00 03/01/21 18:30 DC 03/01/21 10:07 Olanzapine (ZyPREXA ZYDIS) 5 mg 1X ONCE PO 02/26/21 12:03 02/26/21 12:09 DC 02/26/21 12:25 Clonazepam (KlonoPIN) 0.5 mg DAILY PO 02/28/21 09:00 03/02/21 07:00 DC 03/01/21 10:07 Bupropion HCl (Wellbutrin Xl) 150 mg DAILY PO 03/02/21 09:00 03/08/21 15:46 DC 03/08/21 08:41 Levetiracetam (Keppra) 250 mg DAILY PO 03/03/21 09:00 03/09/21 08:12 Aripiprazole (Abilify) 5 mg DAILY PO 03/05/21 09:00 03/09/21 08:12 Ondansetron HCl (Zofran Odt) 4 mg PRN Q4HRS PRN PO NAUSEA/VOMITING 03/06/21 19:30 03/06/21 19:46 Potassium Chloride (Klor-Con) 30 meq BID PO 03/07/21 09:00 03/09/21 20:57 Divalproex Sodium (Depakote Er) 1,000 mg 1700 PO 03/08/21 17:00 03/09/21 17:37 Duloxetine HCl (Cymbalta) 30 mg 0900,1700 PO 03/08/21 17:00 03/09/21 17:37 Sulfasalazine (Azulfidine) 500 mg 0900,1300,1700 PO 03/08/21 09:00 03/09/21 17:37 Bupropion HCl (Wellbutrin Xl) 300 mg DAILY PO 03/09/21 09:00 03/09/21 08:12 Potassium Chloride (Klor-Con) 40 meq 1630,1730 PO 03/08/21 16:30 03/08/21 18:04 DC 03/08/21 16:57 Potassium Chloride (Klor-Con) 40 meq 1700,1800 PO 03/08/21 17:15 03/08/21 18:04 DC 03/08/21 17:56 Current Medications Medications (Trade) Dose Ordered Sig/Mya Route PRN Reason Start Time Stop Time Status Last Admin Dose Admin Bupropion HCl (Wellbutrin Xl) 300 mg DAILY PO 03/09/21 09:00 03/09/21 08:12 I have reviewed the current psychotropics carefully including drug interactions. Risk benefit ratio favors no change other than as noted in my dictated progress note. Diagnosis: Problems: (1) Bipolar affective, depress, sev w/ psych (2) Anxiety disorder, unspecified (3) Mild cognitive impairment (4) Impulse control disorder, unspecified NITHIN STEVENS MD Mar 09, 2021 21:29
[2021-03-10 06:20] LABS: CALCIUM 9.1 mg/dL (8.5-10.1); CREATININE 0.6 mg/dL (0.6-1.0); GFR 99.1; POTASSIUM 3.6 mmol/L (3.5-5.1)
[2021-03-10 06:27] VITALS: BP 121/76
[2021-03-10] MEDS: IPRATROPIUM/ALBUTEROL 20/100mcg/INH INHALER. INH SCH ×4 (08:00→21:01)
[2021-03-10] MEDS: GABAPENTIN 300 MG CAPSULE. PO SCH ×4 (08:15→21:02)
[2021-03-10] MEDS: buPROPion XL 300 MG TAB.ER.24H. PO SCH (08:16)
[2021-03-10] MEDS: sulfaSALAzine 500 MG TABLET PO SCH ×3 (08:16→17:00)
[2021-03-10] MEDS: POTASSIUM CHLORIDE 10 MEQ TABLET.ER. PO SCH ×2 (08:16→21:03)
[2021-03-10] MEDS: PANTOPRAZOLE 40 MG TABLET. PO SCH (08:16)
[2021-03-10] MEDS: levETIRAcetam 250 MG TABLET PO SCH (08:16)
[2021-03-10] MEDS: DULoxetine HCL 30 MG CAPSULE.DR PO SCH ×2 (08:16→17:00)
[2021-03-10] MEDS: LIPASE/PROTEAS/AMYLAS 10/32/42 CAPSULE.DR. PO SCH ×3 (08:16→16:30)
[2021-03-10] MEDS: ARIPiprazole 5 MG TABLET PO SCH (08:17)
[2021-03-10] MEDS: dilTIAZem HCL 30 MG TABLET PO SCH ×2 (08:17→21:02)
[2021-03-10] MEDS: HYDROXYUREA 500 MG CAPSULE PO SCH (08:17)
[2021-03-10] MEDS: FLUTICASONE 50MCG/NASAL SPRAY 16GM BOTTLE. NS SCH (08:18)
[2021-03-10] MEDS: NYSTATIN TOPICAL POWDER 15GM BOTTLE. TP SCH ×2 (08:25→21:03)
--- NOTE | 2021-03-10 10:42 | NUR ---
Pt has been appropriate with her interactions with others on the unit. She has been absent of episodes of throwing self out of broda chair so far this shift. She is compliant with medications crushed and mixed into applesauce. She has been observed on 4 different occasions to be removing O2 NC from nares. When NC is reapplied and pt is instructed to not take it off she replied, "I know." On the 4th occasion of self removal of NC pt informed that if she removes it again staff will have to place mitts on her hands. Pt has been absent of N/V/D at the time of this writing. Plan of care continues, will pass to next shift.
[2021-03-10 15:27] VITALS: BP 114/72
[2021-03-10] MEDS: DIVALPROEX ER 500 MG TAB.ER.24H PO SCH (17:00)
[2021-03-10] MEDS: traZODone 50 MG TABLET. PO SCH (21:01)
--- NOTE | 2021-03-10 21:43 | PDOC ---
Exam Note: Napoleon Note: Please also refer to the separate dictated note~for this date of service dictated separately.~Patient seen individually. Discussed the patient with Nursing staff reviewed the chart.~Reviewed interim history and current functioning. Reviewed vital signs,~Labs/ Radiology~and current medications noted below. Continue current treatment with the changes noted in the dictated addendum note Assessment: Vital Signs/I&O: Vital Signs Date Time Temp Pulse Resp B/P (MAP) Pulse Ox O2 Delivery O2 Flow Rate FiO2 03/10/21 21:02 87 114/72 03/10/21 15:27 97.4 18 96 03/10/21 06:27 Nasal Cannula 2.0 I & O 0 03/09/21 03/09/21 03/10/21 15:00 23:00 07:00 Intake Total 600 ml 480 ml Balance 600 ml 480 ml Labs: Laboratory Tests Test 03/10/21 06:02 Sodium Level 141 mmol/L (136-145) Potassium Level 3.6 mmol/L (3.5-5.1) Chloride Level 105 mmol/L (98-107) Carbon Dioxide Level 30 mmol/L (21-32) Anion Gap 6 (6-14) Blood Urea Nitrogen 4 mg/dL (7-20) L Creatinine 0.6 mg/dL (0.6-1.0) Estimated GFR (Cockcroft-Gault) 99.1 Glucose Level 99 mg/dL (70-99) Calcium Level 9.1 mg/dL (8.5-10.1) Current Medications: Meds: Laboratory Tests Test 03/10/21 06:02 Sodium Level 141 mmol/L Potassium Level 3.6 mmol/L Chloride Level 105 mmol/L Carbon Dioxide Level 30 mmol/L Anion Gap 6 Blood Urea Nitrogen 4 mg/dL Creatinine 0.6 mg/dL Estimated GFR (Cockcroft-Gault) 99.1 Glucose Level 99 mg/dL Calcium Level 9.1 mg/dL Current Medications Medications (Trade) Dose Ordered Sig/Mya Route PRN Reason Start Time Stop Time Status Last Admin Dose Admin Acetaminophen (Tylenol) 650 mg PRN Q6HRS PRN PO MILD PAIN / TEMP > 100.3'F 02/16/21 15:45 03/04/21 09:21 DC 02/18/21 06:31 Multi-Ingredient Ointment (Analgesic [place]) 1 debra PRN QID PRN TP MUSCLE PAIN 02/16/21 15:45 03/04/21 09:21 DC Al Hydroxide/Mg Hydroxide (Mylanta Plus Xs) 15 ml PRN AFTMEALHC PRN PO DYSPEPSIA 02/16/21 15:45 03/04/21 22:05 Magnesium Hydroxide (Milk Of Magnesia) 2,400 mg PRN QHS PRN PO 1ST CHOICE CONSTIPATION 02/16/21 15:45 03/04/21 09:21 DC Acetaminophen (Tylenol) 1,000 mg Q6HRS PRN PO pain or fever 02/16/21 17:00 02/16/21 17:35 DC Acetaminophen (Tylenol) 500 mg Q4HRS PRN PO MILD PAIN 1-3 02/16/21 17:00 02/16/21 17:36 DC Bisacodyl (Dulcolax Tab) 5 mg PRN DAILY PRN PO 2ND CHOICE CONSTIPATION 02/16/21 17:00 03/04/21 09:21 DC Vitamin D (Vitamin D3) 50,000 unit WEEKLY PO 02/22/21 09:00 03/04/21 09:21 DC 02/22/21 07:16 Clonazepam (KlonoPIN) 0.5 mg BID PO 02/16/21 21:00 02/27/21 19:54 DC 02/27/21 10:11 Dicyclomine HCl (Bentyl) 20 mg TID PO 02/16/21 21:00 03/04/21 09:21 DC 03/03/21 21:07 Diphenoxylate HCl/ Atropine (Lomotil) 2 tab BID PO 02/16/21 21:00 03/04/21 09:21 DC 03/03/21 21:08 Divalproex Sodium (Depakote Er) 1,000 mg HS PO 02/16/21 21:00 03/07/21 20:15 DC 03/04/21 21:43 Duloxetine HCl (Cymbalta) 30 mg BID PO 02/16/21 21:00 03/07/21 20:15 DC 03/06/21 08:14 Fluticasone Propionate (Flonase) 2 spray DAILY NS 02/17/21 09:00 03/10/21 08:18 Furosemide (Lasix) 20 mg DAILY PO 02/17/21 09:00 03/04/21 09:21 DC 03/03/21 08:32 Gabapentin (Neurontin) 300 mg QID PO 02/16/21 17:00 03/10/21 21:02 Hydroxyurea (Hydrea) 1,000 mg DAILY PO 02/17/21 09:00 03/10/21 08:17 Levetiracetam (Keppra) 250 mg BID PO 02/16/21 21:00 03/02/21 14:48 DC 03/02/21 09:54 Lidocaine (Lidoderm) 1 patch DAILY TP 02/17/21 09:00 02/17/21 09:24 DC Al Hydroxide/Mg Hydroxide (Mylanta Plus Xs) 15 ml PRN AFTMEALHC PRN PO DYSPEPSIA 02/16/21 17:00 02/16/21 17:36 DC Mirabegron (Myrbetriq) 50 mg DAILY PO 02/17/21 09:00 03/04/21 09:21 DC 03/03/21 08:30 Nystatin (Nystop) 1 debra BID TP 02/16/21 21:00 03/10/21 21:03 Pantoprazole Sodium (Protonix) 40 mg DAILYAC PO 02/17/21 07:30 03/10/21 08:16 Potassium Chloride (Klor-Con) 40 meq DAILY PO 02/17/21 09:00 03/04/21 09:21 DC 03/03/21 08:32 Sulfasalazine (Azulfidine) 500 mg TID PO 02/16/21 21:00 03/07/21 20:15 DC 03/06/21 13:05 Trazodone HCl (Desyrel) 50 mg QHS PO 02/16/21 21:00 03/10/21 21:01 Non-Formulary Medication (Albuterol Sulfate (Albuterol Sulfate Conc Neb Soln)) 1 vial PRN Q4HRS PRN NEB SHORTNESS OF BREATH 02/16/21 17:00 02/16/21 17:49 DC Ascorbic Acid (Vitamin C) 1,000 mg DAILY PO 02/17/21 09:00 03/04/21 09:21 DC 03/03/21 08:34 Diltiazem HCl (Cardizem) 60 mg BID PO 02/16/21 21:00 03/10/21 21:02 Lactobacillus Rhamnosus (Culturelle) 1 cap DAILY PO 02/17/21 09:00 03/04/21 09:21 DC 03/03/21 08:32 Amylase/Lipase/ Protease (Zenpep 10,000) 1 cap TIDBFRMEAL PO 02/17/21 07:30 03/10/21 16:30 Non-Formulary Medication (Magnesium Hydroxide (Milk Of Magnesia)) 2,400 mg PRN DAILY PRN PO CONSTIPATION 02/16/21 17:00 02/16/21 17:37 DC Magnesium Oxide (Magnesium Oxide) 400 mg DAILY PO 02/17/21 09:00 03/04/21 09:21 DC 03/03/21 08:31 Non-Formulary Medication (Methyl Salicylate/ Menthol (Analgesic [place])) 1 edbra PRN Q6HRS PRN TP MUSCLE PAIN 02/16/21 17:00 02/16/21 17:37 DC Non-Formulary Medication (Umeclidinium [place] (Incruse Ellipta)) 62.5 mcg DAILY IH 02/17/21 09:00 02/16/21 17:49 DC Non-Formulary Medication (Zinc Gluconate ) 50 mg DAILY PO 02/17/21 09:00 02/16/21 17:46 DC Albuterol/ Ipratropium (Duoneb) 3 ml RTQID NEB 02/16/21 20:00 02/17/21 19:52 DC Albuterol Sulfate (Ventolin) 2.5 mg PRN Q4HRS PRN NEB SHORTNESS OF BREATH 02/16/21 18:00 Influenza Virus Vaccine Quadrival (Flulaval Quad [id number] Syringe) 0.5 ml ONCE ONCE VAX IM 02/17/21 09:00 02/17/21 09:01 DC 02/17/21 09:21 Lidocaine (Lidoderm) 1 patch DAILY PRN TP pain 02/17/21 09:30 02/27/21 10:11 Albuterol/ Ipratropium (Combivent Respimat 20-100 Mcg) 1 puff RTQID INH 02/17/21 20:00 03/10/21 21:01 Sertraline HCl (Zoloft) 25 mg DAILY PO 02/22/21 09:00 02/24/21 10:00 DC 02/24/21 09:59 Sertraline HCl (Zoloft) 50 mg DAILY PO 02/25/21 09:00 03/01/21 18:30 DC 03/01/21 10:07 Olanzapine (ZyPREXA ZYDIS) 5 mg 1X ONCE PO 02/26/21 12:03 02/26/21 12:09 DC 02/26/21 12:25 Clonazepam (KlonoPIN) 0.5 mg DAILY PO 02/28/21 09:00 03/02/21 07:00 DC 03/01/21 10:07 Bupropion HCl (Wellbutrin Xl) 150 mg DAILY PO 03/02/21 09:00 03/08/21 15:46 DC 03/08/21 08:41 Levetiracetam (Keppra) 250 mg DAILY PO 03/03/21 09:00 03/10/21 08:16 Aripiprazole (Abilify) 5 mg DAILY PO 03/05/21 09:00 03/10/21 08:17 Ondansetron HCl (Zofran Odt) 4 mg PRN Q4HRS PRN PO NAUSEA/VOMITING 03/06/21 19:30 03/06/21 19:46 Potassium Chloride (Klor-Con) 30 meq BID PO 03/07/21 09:00 03/10/21 21:03 Divalproex Sodium (Depakote Er) 1,000 mg 1700 PO 03/08/21 17:00 03/10/21 17:00 Duloxetine HCl (Cymbalta) 30 mg 0900,1700 PO 03/08/21 17:00 03/10/21 17:00 Sulfasalazine (Azulfidine) 500 mg 0900,1300,1700 PO 03/08/21 09:00 03/10/21 17:00 Bupropion HCl (Wellbutrin Xl) 300 mg DAILY PO 03/09/21 09:00 03/10/21 08:16 Potassium Chloride (Klor-Con) 40 meq 1630,1730 PO 03/08/21 16:30 03/08/21 18:04 DC 03/08/21 16:57 Potassium Chloride (Klor-Con) 40 meq 1700,1800 PO 03/08/21 17:15 03/08/21 18:04 DC 03/08/21 17:56 I have reviewed the current psychotropics carefully including drug interactions. Risk benefit ratio favors no change other than as noted in my dictated progress note. Diagnosis: Problems: (1) Impulse control disorder, unspecified (2) Mild cognitive impairment (3) Anxiety disorder, unspecified (4) Bipolar affective, depress, sev w/ psych NITHIN STEVENS MD Mar 10, 2021 21:43
--- NOTE | 2021-03-11 01:19 | NUR ---
Pt has been in her room in bed most of this shift. She took meds crushed and in applesauce without difficulty. She has been cooperative with staff and has had no behaviors tonight.
[2021-03-11 06:02] VITALS: BP 134/71
[2021-03-11] MEDS: HYDROXYUREA 500 MG CAPSULE PO SCH (08:36)
[2021-03-11] MEDS: LIPASE/PROTEAS/AMYLAS 10/32/42 CAPSULE.DR. PO SCH ×3 (08:37→17:27)
[2021-03-11] MEDS: sulfaSALAzine 500 MG TABLET PO SCH ×3 (08:37→17:27)
[2021-03-11] MEDS: DULoxetine HCL 30 MG CAPSULE.DR PO SCH ×2 (08:37→17:27)
[2021-03-11] MEDS: POTASSIUM CHLORIDE 10 MEQ TABLET.ER. PO SCH ×2 (08:37→20:11)
[2021-03-11] MEDS: GABAPENTIN 300 MG CAPSULE. PO SCH ×4 (08:38→20:11)
[2021-03-11] MEDS: dilTIAZem HCL 30 MG TABLET PO SCH ×2 (08:38→20:11)
[2021-03-11] MEDS: levETIRAcetam 250 MG TABLET PO SCH (08:38)
[2021-03-11] MEDS: PANTOPRAZOLE 40 MG TABLET. PO SCH (08:38)
[2021-03-11] MEDS: ARIPiprazole 5 MG TABLET PO SCH (08:38)
[2021-03-11] MEDS: buPROPion XL 300 MG TAB.ER.24H. PO SCH (08:38)
[2021-03-11] MEDS: FLUTICASONE 50MCG/NASAL SPRAY 16GM BOTTLE. NS SCH (08:38)
[2021-03-11] MEDS: NYSTATIN TOPICAL POWDER 15GM BOTTLE. TP SCH ×2 (08:39→20:12)
[2021-03-11] MEDS: IPRATROPIUM/ALBUTEROL 20/100mcg/INH INHALER. INH SCH ×4 (08:42→20:12)
--- NOTE | 2021-03-11 13:54 | NUR ---
RN Day Shift Note: Pt presents with a neutral mood/affect. Pt was medication compliant for morning and afternoon medications. Pt is pleasant and approachable. Pt is noted to spend time resting in her room. Pt is currently low-[place] on the unit. Pt was noted to be engaged with feeding herself at lunch time. Pt's vitals are WNL. Pt slept 6.75 hours last night. Pt denies any thoughts of SI/HI. Will continue to monitor.
[2021-03-11 15:55] VITALS: BP 117/71
[2021-03-11] MEDS: DIVALPROEX ER 500 MG TAB.ER.24H PO SCH (17:27)
[2021-03-11] MEDS: traZODone 50 MG TABLET. PO SCH (20:11)
[2021-03-12 06:09] VITALS: BP 99/64
[2021-03-12] MEDS: POTASSIUM CHLORIDE 10 MEQ TABLET.ER. PO SCH ×2 (08:12→19:54)
[2021-03-12] MEDS: DIVALPROEX 125 MG CAP.SPRINK PO SCH ×2 (08:13→19:55)
[2021-03-12] MEDS: buPROPion XL 300 MG TAB.ER.24H. PO SCH (08:14)
[2021-03-12] MEDS: ARIPiprazole 5 MG TABLET PO SCH (08:14)
[2021-03-12] MEDS: HYDROXYUREA 500 MG CAPSULE PO SCH (08:14)
[2021-03-12] MEDS: LIPASE/PROTEAS/AMYLAS 10/32/42 CAPSULE.DR. PO SCH ×3 (08:15→17:21)
[2021-03-12] MEDS: levETIRAcetam 250 MG TABLET PO SCH (08:15)
[2021-03-12] MEDS: sulfaSALAzine 500 MG TABLET PO SCH ×3 (08:15→17:21)
[2021-03-12] MEDS: PANTOPRAZOLE 40 MG TABLET. PO SCH (08:15)
[2021-03-12] MEDS: GABAPENTIN 300 MG CAPSULE. PO SCH ×4 (08:15→19:54)
[2021-03-12] MEDS: DULoxetine HCL 30 MG CAPSULE.DR PO SCH ×2 (08:15→17:21)
[2021-03-12] MEDS: FLUTICASONE 50MCG/NASAL SPRAY 16GM BOTTLE. NS SCH (08:16)
[2021-03-12] MEDS: IPRATROPIUM/ALBUTEROL 20/100mcg/INH INHALER. INH SCH ×4 (08:16→19:56)
[2021-03-12] MEDS: dilTIAZem HCL 30 MG TABLET PO SCH ×2 (08:17→19:55)
[2021-03-12] MEDS: NYSTATIN TOPICAL POWDER 15GM BOTTLE. TP SCH ×2 (08:17→19:55)
--- NOTE | 2021-03-12 09:57 | PDOC ---
Exam Note: Napoleon Note: This note is a late entry for 03/08/2021 covers elements not covered in my initial note. Subjective: The patient was seen individually in the evening of 03/08/2021 with Cheryl BARR, discussed and reviewed the chart. The patient slept 6-1/2 hours previous night. Overall the patient is doing a little better, has not tried to pull out her oxygen, keeps it in place. Potassium is still low was 2.3 yesterday and is being corrected by Dr. Clark. She is more awake and more aware, still withdrawn. At times she tried to remove oxygen but less than before and I addressed this with her at some length. Review of Systems: Ambulation impaired in wheelchair. Shortness of breath on O2 supplements on 2 L. No CV, , eye, ENT system symptoms on review. Mental Status Exam: The patient is reasonably oriented. Speech coherent. Abstraction fair. Computation impaired. Language function intact. Volume of speech is low but typical for her. No suicidal or homicidal ideation. Laboratory Data: Reviewed. Impression: Bipolar disorder, depressed with psychotic features. Anxiety disorder unspecified. Impulse control disorder unspecified. Plan: Increase Wellbutrin XL from 150 mg a day to 300 mg a day. This has been augmented with Abilify 5 mg a day and she is also on Cymbalta 60 mg a day. Continue rest of the psychotropics unchanged including Depakote, Keppra, trazodone, gabapentin for now. Reviewed drug interactions and risk-benefit ratio. Assessment: Vital Signs/I&O: Vital Signs Date Time Temp Pulse Resp B/P (MAP) Pulse Ox O2 Delivery O2 Flow Rate FiO2 03/12/21 08:17 85 99/64 03/12/21 06:09 98.0 20 93 Nasal Cannula 03/11/21 06:02 2.0 I & O 03/11/21 03/11/21 03/12/21 15:00 23:00 07:00 Intake Total 840 ml 880 ml Balance 840 ml 880 ml Current Medications: Meds: Current Medications Medications (Trade) Dose Ordered Sig/Mya Route PRN Reason Start Time Stop Time Status Last Admin Dose Admin Divalproex Sodium (Depakote [place]) 500 mg BID PO 03/12/21 09:00 03/12/21 08:13 I have reviewed the current psychotropics carefully including drug interactions. Risk benefit ratio favors no change other than as noted in my dictated progress note. Diagnosis: Problems: (1) Impulse control disorder, unspecified (2) Mild cognitive impairment (3) Anxiety disorder, unspecified (4) Bipolar disorder, curr episode mixed, severe, with psychotic features NITHIN STEVENS MD Mar 12, 2021 09:57
--- NOTE | 2021-03-12 10:10 | NUR ---
Nursing note: Pt in dining room at time of AM med pass and assessment. She is pleasant, compliant with meds crushed in applesauce and cooperative with her assessment. She denies having any pain/concerns. She is currently resting quietly in her bed. Will continue to monitor.
--- NOTE | 2021-03-12 10:12 | PDOC ---
Exam Note: Napoleon Note: This note is a late entry for 03/09/2021 covers elements not covered in my initial note. Subjective: The patient was reviewed at treatment team meeting individually in the morning on 03/09/2021 with Lety Farley, Rosalva Hutton, and Archana Dillard (social work manager), Bessy, activity therapy and Cassie BARR, discussed and reviewed the chart. The patient slept 7 hours previous night. Appetite is 25%. Average sleep 7 hours. She has been more alert. Potassium is still low and being corrected per Dr. Clark. She takes her medications crushed but kept her oxygen in place at night. She attended one group in the past one week. She ate sausage by herself for breakfast. Also discussed with Joshua BARR in the evening. Patient has had some diarrhea but C. difficile is negative. She has been considered for hospice care per Dr. Clark/Dr. Cheng. I met with her in her room. Review of Systems: Ambulation impaired in wheelchair. Shortness of breath on O2 supplements on 2 L. No CV, , eye, ENT system symptoms on review. She is little more forceful in her verbalization. Mental Status Exam: The patient is alert and oriented. She seemed to recognize me. Speech has some latency, still low in volume. Abstraction fair. Computation impaired. Language function intact. Mood and affect somewhat improved. No suicidal or homicidal ideation. Laboratory Data: Reviewed. Impression: Bipolar disorder, depressed. Anxiety disorder unspecified. Impuls e control disorder unspecified. Plan: Continue current psychotropics mentioned in my initial note. Abilify is being used to augment the Cymbalta and Wellbutrin. Maintain Depakote and trazodone, Keppra latter for her seizures. She is also on gabapentin. Adjust further as clinically indicated. Assessment: Vital Signs/I&O: Vital Signs Date Time Temp Pulse Resp B/P (MAP) Pulse Ox O2 Delivery O2 Flow Rate FiO2 03/12/21 08:17 85 99/64 03/12/21 06:09 98.0 20 93 Nasal Cannula 03/11/21 06:02 2.0 I & O 03/11/21 03/11/21 03/12/21 15:00 23:00 07:00 Intake Total 840 ml 880 ml Balance 840 ml 880 ml Current Medications: Meds: Current Medications Medications (Trade) Dose Ordered Sig/Mya Route PRN Reason Start Time Stop Time Status Last Admin Dose Admin Acetaminophen (Tylenol) 650 mg PRN Q6HRS PRN PO MILD PAIN / TEMP > 100.3'F 02/16/21 15:45 03/04/21 09:21 DC 02/18/21 06:31 Multi-Ingredient Ointment (Analgesic [place]) 1 debra PRN QID PRN TP MUSCLE PAIN 02/16/21 15:45 03/04/21 09:21 DC Al Hydroxide/Mg Hydroxide (Mylanta Plus Xs) 15 ml PRN AFTMEALHC PRN PO DYSPEPSIA 02/16/21 15:45 03/04/21 22:05 Magnesium Hydroxide (Milk Of Magnesia) 2,400 mg PRN QHS PRN PO 1ST CHOICE CONSTIPATION 02/16/21 15:45 03/04/21 09:21 DC Acetaminophen (Tylenol) 1,000 mg Q6HRS PRN PO pain or fever 02/16/21 17:00 02/16/21 17:35 DC Acetaminophen (Tylenol) 500 mg Q4HRS PRN PO MILD PAIN 1-3 02/16/21 17:00 02/16/21 17:36 DC Bisacodyl (Dulcolax Tab) 5 mg PRN DAILY PRN PO 2ND CHOICE CONSTIPATION 02/16/21 17:00 03/04/21 09:21 DC Vitamin D (Vitamin D3) 50,000 unit WEEKLY PO 02/22/21 09:00 03/04/21 09:21 DC 02/22/21 07:16 Clonazepam (KlonoPIN) 0.5 mg BID PO 02/16/21 21:00 02/27/21 19:54 DC 02/27/21 10:11 Dicyclomine HCl (Bentyl) 20 mg TID PO 02/16/21 21:00 03/04/21 09:21 DC 03/03/21 21:07 Diphenoxylate HCl/ Atropine (Lomotil) 2 tab BID PO 02/16/21 21:00 03/04/21 09:21 DC 03/03/21 21:08 Divalproex Sodium (Depakote Er) 1,000 mg HS PO 02/16/21 21:00 03/07/21 20:15 DC 10/23/21 21:43 Duloxetine HCl (Cymbalta) 30 mg BID PO 02/16/21 21:00 03/07/21 20:15 DC 03/06/21 08:14 Fluticasone Propionate (Flonase) 2 spray DAILY NS 02/17/21 09:00 03/12/21 08:16 Furosemide (Lasix) 20 mg DAILY PO 02/17/21 09:00 03/04/21 09:21 DC 03/03/21 08:32 Gabapentin (Neurontin) 300 mg QID PO 02/16/21 17:00 03/12/21 08:15 Hydroxyurea (Hydrea) 1,000 mg DAILY PO 02/17/21 09:00 03/12/21 08:14 Levetiracetam (Keppra) 250 mg BID PO 02/16/21 21:00 03/02/21 14:48 DC 03/02/21 09:54 Lidocaine (Lidoderm) 1 patch DAILY TP 02/17/21 09:00 02/17/21 09:24 DC Al Hydroxide/Mg Hydroxide (Mylanta Plus Xs) 15 ml PRN AFTMEALHC PRN PO DYSPEPSIA 02/16/21 17:00 02/16/21 17:36 DC Mirabegron (Myrbetriq) 50 mg DAILY PO 02/17/21 09:00 03/04/21 09:21 DC 03/03/21 08:30 Nystatin (Nystop) 1 debra BID TP 02/16/21 21:00 03/12/21 08:17 Pantoprazole Sodium (Protonix) 40 mg DAILYAC PO 02/17/21 07:30 03/12/21 08:15 Potassium Chloride (Klor-Con) 40 meq DAILY PO 02/17/21 09:00 03/04/21 09:21 DC 03/03/21 08:32 Sulfasalazine (Azulfidine) 500 mg TID PO 02/16/21 21:00 03/07/21 20:15 DC 03/06/21 13:05 Trazodone HCl (Desyrel) 50 mg QHS PO 02/16/21 21:00 03/11/21 20:11 Non-Formulary Medication (Albuterol Sulfate (Albuterol Sulfate Conc Neb Soln)) 1 vial PRN Q4HRS PRN NEB SHORTNESS OF BREATH 02/16/21 17:00 02/16/21 17:49 DC Ascorbic Acid (Vitamin C) 1,000 mg DAILY PO 02/17/21 09:00 03/04/21 09:21 DC 03/03/21 08:34 Diltiazem HCl (Cardizem) 60 mg BID PO 02/16/21 21:00 03/11/21 20:11 Lactobacillus Rhamnosus (Culturelle) 1 cap DAILY PO 02/17/21 09:00 03/04/21 09:21 DC 03/03/21 08:32 Amylase/Lipase/ Protease (Zenpep 10,000) 1 cap TIDBFRMEAL PO 02/17/21 07:30 03/12/21 08:15 Non-Formulary Medication (Magnesium Hydroxide (Milk Of Magnesia)) 2,400 mg PRN DAILY PRN PO CONSTIPATION 02/16/21 17:00 02/16/21 17:37 DC Magnesium Oxide (Magnesium Oxide) 400 mg DAILY PO 02/17/21 09:00 03/04/21 09:21 DC 03/03/21 08:31 Non-Formulary Medication (Methyl Salicylate/ Menthol (Analgesic [place])) 1 debra PRN Q6HRS PRN TP MUSCLE PAIN 02/16/21 17:00 02/16/21 17:37 DC Non-Formulary Medication (Umeclidinium [place] (Incruse Ellipta)) 62.5 mcg DAILY IH 02/17/21 09:00 02/16/21 17:49 DC Non-Formulary Medication (Zinc Gluconate ) 50 mg DAILY PO 02/17/21 09:00 02/16/21 17:46 DC Albuterol/ Ipratropium (Duoneb) 3 ml RTQID NEB 02/16/21 20:00 02/17/21 19:52 DC Albuterol Sulfate (Ventolin) 2.5 mg PRN Q4HRS PRN NEB SHORTNESS OF BREATH 02/16/21 18:00 Influenza Virus Vaccine Quadrival (Flulaval Quad [id number] Syringe) 0.5 ml ONCE ONCE VAX IM 02/17/21 09:00 02/17/21 09:01 DC 02/17/21 09:21 Lidocaine (Lidoderm) 1 patch DAILY PRN TP pain 02/17/21 09:30 02/27/21 10:11 Albuterol/ Ipratropium (Combivent Respimat 20-100 Mcg) 1 puff RTQID INH 02/17/21 20:00 03/12/21 08:16 Sertraline HCl (Zoloft) 25 mg DAILY PO 02/22/21 09:00 02/24/21 10:00 DC 02/24/21 09:59 Sertraline HCl (Zoloft) 50 mg DAILY PO 02/25/21 09:00 03/01/21 18:30 DC 03/01/21 10:07 Olanzapine (ZyPREXA ZYDIS) 5 mg 1X ONCE PO 02/26/21 12:03 02/26/21 12:09 DC 02/26/21 12:25 Clonazepam (KlonoPIN) 0.5 mg DAILY PO 02/28/21 09:00 03/02/21 07:00 DC 03/01/21 10:07 Bupropion HCl (Wellbutrin Xl) 150 mg DAILY PO 03/02/21 09:00 03/08/21 15:46 DC 03/08/21 08:41 Levetiracetam (Keppra) 250 mg DAILY PO 03/03/21 09:00 03/12/21 08:15 Aripiprazole (Abilify) 5 mg DAILY PO 03/05/21 09:00 03/12/21 08:14 Ondansetron HCl (Zofran Odt) 4 mg PRN Q4HRS PRN PO NAUSEA/VOMITING 03/06/21 19:30 03/06/21 19:46 Potassium Chloride (Klor-Con) 30 meq BID PO 03/07/21 09:00 03/12/21 08:12 Divalproex Sodium (Depakote Er) 1,000 mg 1700 PO 03/08/21 17:00 03/12/21 00:01 DC 03/11/21 17:27 Duloxetine HCl (Cymbalta) 30 mg 0900,1700 PO 03/08/21 17:00 03/12/21 08:15 Sulfasalazine (Azulfidine) 500 mg 0900,1300,1700 PO 03/08/21 09:00 03/12/21 08:15 Bupropion HCl (Wellbutrin Xl) 300 mg DAILY PO 03/09/21 09:00 03/12/21 08:14 Potassium Chloride (Klor-Con) 40 meq 1630,1730 PO 03/08/21 16:30 03/08/21 18:04 DC 03/08/21 16:57 Potassium Chloride (Klor-Con) 40 meq 1700,1800 PO 03/08/21 17:15 03/08/21 18:04 DC 03/08/21 17:56 Divalproex Sodium (Depakote Sprinkles) 500 mg BID PO 03/12/21 09:00 03/12/21 08:13 Current Medications Medications (Trade) Dose Ordered Sig/Mya Route PRN Reason Start Time Stop Time Status Last Admin Dose Admin Divalproex Sodium (Depakote Sprinkles) 500 mg BID PO 03/12/21 09:00 03/12/21 08:13 I have reviewed the current psychotropics carefully including drug interactions. Risk benefit ratio favors no change other than as noted in my dictated progress note. Diagnosis: Problems: (1) Bipolar disorder, curr episode mixed, severe, with psychotic features (2) Mild cognitive impairment (3) Anxiety disorder, unspecified (4) Impulse control disorder, unspecified NITHIN STEVENS MD Mar 12, 2021 10:11
--- NOTE | 2021-03-12 10:26 | PDOC ---
Exam Note: Napoleon Note: Late entry for 03/11/21. Please also refer to the separate dictated note~for this date of service dictated separately.~Patient seen individually. Discussed the patient with Nursing staff reviewed the chart.~Reviewed interim history and current functioning. Reviewed vital signs,~Labs/ Radiology~and current medicat ions noted below. Continue current treatment with the changes noted in the dictated addendum note Assessment: Vital Signs/I&O: Vital Signs Date Time Temp Pulse Resp B/P (MAP) Pulse Ox O2 Delivery O2 Flow Rate FiO2 03/12/21 08:17 85 99/64 03/12/21 06:09 98.0 20 93 Nasal Cannula 03/11/21 06:02 2.0 I & O 03/11/21 03/11/21 03/12/21 15:00 23:00 07:00 Intake Total 840 ml 880 ml Balance 840 ml 880 ml Current Medications: Meds: Current Medications Medications (Trade) Dose Ordered Sig/Mya Route PRN Reason Start Time Stop Time Status Last Admin Dose Admin Acetaminophen (Tylenol) 650 mg PRN Q6HRS PRN PO MILD PAIN / TEMP > 100.3'F 02/16/21 15:45 03/04/21 09:21 DC 02/18/21 06:31 Multi-Ingredient Ointment (Analgesic [place]) 1 debra PRN QID PRN TP MUSCLE PAIN 02/16/21 15:45 03/04/21 09:21 DC Al Hydroxide/Mg Hydroxide (Mylanta Plus Xs) 15 ml PRN AFTMEALHC PRN PO DYSPEPSIA 02/16/21 15:45 03/04/21 22:05 Magnesium Hydroxide (Milk Of Magnesia) 2,400 mg PRN QHS PRN PO 1ST CHOICE CONSTIPATION 02/16/21 15:45 03/04/21 09:21 DC Acetaminophen (Tylenol) 1,000 mg Q6HRS PRN PO pain or fever 02/16/21 17:00 02/16/21 17:35 DC Acetaminophen (Tylenol) 500 mg Q4HRS PRN PO MILD PAIN 1-3 02/16/21 17:00 02/16/21 17:36 DC Bisacodyl (Dulcolax Tab) 5 mg PRN DAILY PRN PO 2ND CHOICE CONSTIPATION 02/16/21 17:00 03/04/21 09:21 DC Vitamin D (Vitamin D3) 50,000 unit WEEKLY PO 02/22/21 09:00 03/04/21 09:21 DC 02/22/21 07:16 Clonazepam (KlonoPIN) 0.5 mg BID PO 02/16/21 21:00 02/27/21 19:54 DC 02/27/21 10:11 Dicyclomine HCl (Bentyl) 20 mg TID PO 02/16/21 21:00 03/04/21 09:21 DC 03/03/21 21:07 Diphenoxylate HCl/ Atropine (Lomotil) 2 tab BID PO 02/16/21 21:00 03/04/21 09:21 DC 03/03/21 21:08 Divalproex Sodium (Depakote Er) 1,000 mg HS PO 02/16/21 21:00 03/07/21 20:15 DC 03/04/21 21:43 Duloxetine HCl (Cymbalta) 30 mg BID PO 02/16/21 21:00 03/07/21 20:15 DC 03/06/21 08:14 Fluticasone Propionate (Flonase) 2 spray DAILY NS 02/17/21 09:00 03/12/21 08:16 Furosemide (Lasix) 20 mg DAILY PO 02/17/21 09:00 03/04/21 09:21 DC 03/03/21 08:32 Gabapentin (Neurontin) 300 mg QID PO 02/16/21 17:00 03/12/21 08:15 Hydroxyurea (Hydrea) 1,000 mg DAILY PO 02/17/21 09:00 03/12/21 08:14 Levetiracetam (Keppra) 250 mg BID PO 02/16/21 21:00 03/02/21 14:48 DC 03/02/21 09:54 Lidocaine (Lidoderm) 1 patch DAILY TP 02/17/21 09:00 02/17/21 09:24 DC Al Hydroxide/Mg Hydroxide (Mylanta Plus Xs) 15 ml PRN AFTMEALHC PRN PO DYSPEPSIA 02/16/21 17:00 02/16/21 17:36 DC Mirabegron (Myrbetriq) 50 mg DAILY PO 02/17/21 09:00 03/04/21 09:21 DC 03/03/21 08:30 Nystatin (Nystop) 1 debra BID TP 02/16/21 21:00 03/12/21 08:17 Pantoprazole Sodium (Protonix) 40 mg DAILYAC PO 02/17/21 07:30 03/12/21 08:15 Potassium Chloride (Klor-Con) 40 meq DAILY PO 02/17/21 09:00 03/04/21 09:21 DC 03/03/21 08:32 Sulfasalazine (Azulfidine) 500 mg TID PO 02/16/21 21:00 03/07/21 20:15 DC 03/06/21 13:05 Trazodone HCl (Desyrel) 50 mg QHS PO 02/16/21 21:00 03/11/21 20:11 Non-Formulary Medication (Albuterol Sulfate (Albuterol Sulfate Conc Neb Soln)) 1 vial PRN Q4HRS PRN NEB SHORTNESS OF BREATH 02/16/21 17:00 02/16/21 17:49 DC Ascorbic Acid (Vitamin C) 1,000 mg DAILY PO 02/17/21 09:00 03/04/21 09:21 DC 03/03/21 08:34 Diltiazem HCl (Cardizem) 60 mg BID PO 02/16/21 21:00 03/11/21 20:11 Lactobacillus Rhamnosus (Culturelle) 1 cap DAILY PO 02/17/21 09:00 03/04/21 09:21 DC 03/03/21 08:32 Amylase/Lipase/ Protease (Zenpep 10,000) 1 cap TIDBFRMEAL PO 02/17/21 07:30 03/12/21 08:15 Non-Formulary Medication (Magnesium Hydroxide (Milk Of Magnesia)) 2,400 mg PRN DAILY PRN PO CONSTIPATION 02/16/21 17:00 02/16/21 17:37 DC Magnesium Oxide (Magnesium Oxide) 400 mg DAILY PO 02/17/21 09:00 03/04/21 09:21 DC 03/03/21 08:31 Non-Formulary Medication (Methyl Salicylate/ Menthol (Analgesic [place])) 1 debra PRN Q6HRS PRN TP MUSCLE PAIN 02/16/21 17:00 02/16/21 17:37 DC Non-Formulary Medication (Umeclidinium [place] (Incruse Ellipta)) 62.5 mcg DAILY IH 02/17/21 09:00 02/16/21 17:49 DC Non-Formulary Medication (Zinc Gluconate ) 50 mg DAILY PO 02/17/21 09:00 02/16/21 17:46 DC Albuterol/ Ipratropium (Duoneb) 3 ml RTQID NEB 02/16/21 20:00 02/17/21 19:52 DC Albuterol Sulfate (Ventolin) 2.5 mg PRN Q4HRS PRN NEB SHORTNESS OF BREATH 02/16/21 18:00 Influenza Virus Vaccine Quadrival (Flulaval Quad [id number] Syringe) 0.5 ml ONCE ONCE VAX IM 02/17/21 09:00 02/17/21 09:01 DC 02/17/21 09:21 Lidocaine (Lidoderm) 1 patch DAILY PRN TP pain 02/17/21 09:30 02/27/21 10:11 Albuterol/ Ipratropium (Combivent Respimat 20-100 Mcg) 1 puff RTQID INH 02/17/21 20:00 03/12/21 08:16 Sertraline HCl (Zoloft) 25 mg DAILY PO 02/22/21 09:00 02/24/21 10:00 DC 02/24/21 09:59 Sertraline HCl (Zoloft) 50 mg DAILY PO 02/25/21 09:00 03/01/21 18:30 DC 03/01/21 10:07 Olanzapine (ZyPREXA ZYDIS) 5 mg 1X ONCE PO 02/26/21 12:03 02/26/21 12:09 DC 02/26/21 12:25 Clonazepam (KlonoPIN) 0.5 mg DAILY PO 02/28/21 09:00 03/02/21 07:00 DC 03/01/21 10:07 Bupropion HCl (Wellbutrin Xl) 150 mg DAILY PO 03/02/21 09:00 03/08/21 15:46 DC 03/08/21 08:41 Levetiracetam (Keppra) 250 mg DAILY PO 03/03/21 09:00 03/12/21 08:15 Aripiprazole (Abilify) 5 mg DAILY PO 03/05/21 09:00 03/12/21 08:14 Ondansetron HCl (Zofran Odt) 4 mg PRN Q4HRS PRN PO NAUSEA/VOMITING 03/06/21 19:30 03/06/21 19:46 Potassium Chloride (Klor-Con) 30 meq BID PO 03/07/21 09:00 03/12/21 08:12 Divalproex Sodium (Depakote Er) 1,000 mg 1700 PO 03/08/21 17:00 03/12/21 00:01 DC 03/11/21 17:27 Duloxetine HCl (Cymbalta) 30 mg 0900,1700 PO 03/08/21 17:00 03/12/21 08:15 Sulfasalazine (Azulfidine) 500 mg 0900,1300,1700 PO 03/08/21 09:00 03/12/21 08:15 Bupropion HCl (Wellbutrin Xl) 300 mg DAILY PO 03/09/21 09:00 03/12/21 08:14 Potassium Chloride (Klor-Con) 40 meq 1630,1730 PO 03/08/21 16:30 03/08/21 18:04 DC 03/08/21 16:57 Potassium Chloride (Klor-Con) 40 meq 1700,1800 PO 03/08/21 17:15 03/08/21 18:04 DC 03/08/21 17:56 Divalproex Sodium (Depakote Sprinkles) 500 mg BID PO 03/12/21 09:00 03/12/21 08:13 Current Medications Medications (Trade) Dose Ordered Sig/Mya Route PRN Reason Start Time Stop Time Status Last Admin Dose Admin Divalproex Sodium (Depakote Sprinkles) 500 mg BID PO 03/12/21 09:00 03/12/21 08:13 I have reviewed the current psychotropics carefully including drug interactions. Risk benefit ratio favors no change other than as noted in my dictated progress note. Diagnosis: Problems: (1) Impulse control disorder, unspecified (2) Mild cognitive impairment (3) Anxiety disorder, unspecified (4) Bipolar affective, depress, sev w/ psych NITHIN STEVENS MD Mar 12, 2021 10:26
[2021-03-12 16:06] VITALS: BP 115/73
[2021-03-12] MEDS: traZODone 50 MG TABLET. PO SCH (19:54)
--- NOTE | 2021-03-12 22:26 | NUR ---
Pt located in her bed this evening. Pt calm and cooperative. Compliant with crushed medications. No behaviors tonight.
[2021-03-13 05:54] VITALS: BP 124/78
[2021-03-13] MEDS: POTASSIUM CHLORIDE 10 MEQ TABLET.ER. PO SCH ×2 (08:19→19:50)
[2021-03-13] MEDS: buPROPion XL 300 MG TAB.ER.24H. PO SCH (08:20)
[2021-03-13] MEDS: GABAPENTIN 300 MG CAPSULE. PO SCH ×4 (08:20→19:50)
[2021-03-13] MEDS: PANTOPRAZOLE 40 MG TABLET. PO SCH (08:20)
[2021-03-13] MEDS: DIVALPROEX 125 MG CAP.SPRINK PO SCH ×2 (08:20→19:51)
[2021-03-13] MEDS: LIPASE/PROTEAS/AMYLAS 10/32/42 CAPSULE.DR. PO SCH ×3 (08:20→17:23)
[2021-03-13] MEDS: ARIPiprazole 5 MG TABLET PO SCH (08:20)
[2021-03-13] MEDS: levETIRAcetam 250 MG TABLET PO SCH (08:20)
[2021-03-13] MEDS: DULoxetine HCL 30 MG CAPSULE.DR PO SCH ×2 (08:20→17:23)
[2021-03-13] MEDS: dilTIAZem HCL 30 MG TABLET PO SCH ×2 (08:21→19:51)
[2021-03-13] MEDS: sulfaSALAzine 500 MG TABLET PO SCH ×3 (08:21→17:23)
[2021-03-13] MEDS: HYDROXYUREA 500 MG CAPSULE PO SCH (08:22)
[2021-03-13] MEDS: NYSTATIN TOPICAL POWDER 15GM BOTTLE. TP SCH ×2 (08:22→19:51)
[2021-03-13] MEDS: IPRATROPIUM/ALBUTEROL 20/100mcg/INH INHALER. INH SCH ×4 (08:22→19:51)
[2021-03-13] MEDS: FLUTICASONE 50MCG/NASAL SPRAY 16GM BOTTLE. NS SCH (08:22)
--- NOTE | 2021-03-13 08:31 | PDOC ---
Exam Note: Napoleon Note: This note is a late entry for 03/10/2021 covers elements not covered in my initial note. Subjective: The patient was seen individually in the evening of 03/10/2021 with Joshua BARR, discussed and reviewed the chart. The patient slept 7 hours previous night. Patient is doing better, more oriented, interactive, still takes her oxygen off at times. It was off when I met with her in her room and I replaced it but she was confused how to keep it in place. Nursing staff will intervene for this. We will take the oxygen tubing so she cannot remove it. Review of Systems: Ambulation impaired in wheelchair. Shortness of breath. No CV, , eye, ENT system symptoms on review. Mental Status Exam: The patient is oriented to herself and situation. Speech is low in rate and rhythm, low in volume. Abstraction fair. Computation impaired. Language function intact. Mood and affect withdrawn. Laboratory Data: Reviewed. Impression: Bipolar disorder, depressed. Anxiety disorder unspecified. Impulse control disorder unspecified. Plan: Continue current psychotropics mentioned in my initial note. Assessment: Vital Signs/I&O: Vital Signs Date Time Temp Pulse Resp B/P (MAP) Pulse Ox O2 Delivery O2 Flow Rate FiO2 03/13/21 08:21 88 124/78 03/13/21 05:54 96.8 18 90 2.0 03/12/21 06:09 Nasal Cannula I & O 03/12/21 03/12/21 03/13/21 14:59 22:59 06:59 Intake Total 960 ml 540 ml Balance 960 ml 540 ml Current Medications: Meds: Current Medications Medications (Trade) Dose Ordered Sig/Mya Route PRN Reason Start Time Stop Time Status Last Admin Dose Admin Acetaminophen (Tylenol) 650 mg PRN Q6HRS PRN PO MILD PAIN / TEMP > 100.3'F 02/16/21 15:45 03/04/21 09:21 DC 02/18/21 06:31 Multi-Ingredient Ointment (Analgesic [place]) 1 debra PRN QID PRN TP MUSCLE PAIN 02/16/21 15:45 03/04/21 09:21 DC Al Hydroxide/Mg Hydroxide (Mylanta Plus Xs) 15 ml PRN AFTMEALHC PRN PO DYSPEPSIA 02/16/21 15:45 03/04/21 22:05 Magnesium Hydroxide (Milk Of Magnesia) 2,400 mg PRN QHS PRN PO 1ST CHOICE CONSTIPATION 02/16/21 15:45 03/04/21 09:21 DC Acetaminophen (Tylenol) 1,000 mg Q6HRS PRN PO pain or fever 02/16/21 17:00 02/16/21 17:35 DC Acetaminophen (Tylenol) 500 mg Q4HRS PRN PO MILD PAIN 1-3 02/16/21 17:00 02/16/21 17:36 DC Bisacodyl (Dulcolax Tab) 5 mg PRN DAILY PRN PO 2ND CHOICE CONSTIPATION 02/16/21 17:00 03/04/21 09:21 DC Vitamin D (Vitamin D3) 50,000 unit WEEKLY PO 02/22/21 09:00 03/04/21 09:21 DC 02/22/21 07:16 Clonazepam (KlonoPIN) 0.5 mg BID PO 02/16/21 21:00 02/27/21 19:54 DC 02/27/21 10:11 Dicyclomine HCl (Bentyl) 20 mg TID PO 02/16/21 21:00 03/04/21 09:21 DC 03/03/21 21:07 Diphenoxylate HCl/ Atropine (Lomotil) 2 tab BID PO 02/16/21 21:00 03/04/21 09:21 DC 03/03/21 21:08 Divalproex Sodium (Depakote Er) 1,000 mg HS PO 02/16/21 21:00 03/07/21 20:15 DC 03/04/21 21:43 Duloxetine HCl (Cymbalta) 30 mg BID PO 02/16/21 21:00 03/07/21 20:15 DC 03/06/21 08:14 Fluticasone Propionate (Flonase) 2 spray DAILY NS 02/17/21 09:00 03/13/21 08:22 Furosemide (Lasix) 20 mg DAILY PO 02/17/21 09:00 03/04/21 09:21 DC 03/03/21 08:32 Gabapentin (Neurontin) 300 mg QID PO 02/16/21 17:00 03/13/21 08:20 Hydroxyurea (Hydrea) 1,000 mg DAILY PO 02/17/21 09:00 03/13/21 08:22 Levetiracetam (Keppra) 250 mg BID PO 02/16/21 21:00 03/02/21 14:48 DC 03/02/21 09:54 Lidocaine (Lidoderm) 1 patch DAILY TP 02/17/21 09:00 02/17/21 09:24 DC Al Hydroxide/Mg Hydroxide (Mylanta Plus Xs) 15 ml PRN AFTMEALHC PRN PO DYSPEPSIA 02/16/21 17:00 02/16/21 17:36 DC Mirabegron (Myrbetriq) 50 mg DAILY PO 02/17/21 09:00 03/04/21 09:21 DC 03/03/21 08:30 Nystatin (Nystop) 1 debra BID TP 02/16/21 21:00 03/13/21 08:22 Pantoprazole Sodium (Protonix) 40 mg DAILYAC PO 02/17/21 07:30 03/13/21 08:20 Potassium Chloride (Klor-Con) 40 meq DAILY PO 02/17/21 09:00 03/04/21 09:21 DC 03/03/21 08:32 Sulfasalazine (Azulfidine) 500 mg TID PO 02/16/21 21:00 03/07/21 20:15 DC 03/06/21 13:05 Trazodone HCl (Desyrel) 50 mg QHS PO 02/16/21 21:00 03/12/21 19:54 Non-Formulary Medication (Albuterol Sulfate (Albuterol Sulfate Conc Neb Soln)) 1 vial PRN Q4HRS PRN NEB SHORTNESS OF BREATH 02/16/21 17:00 02/16/21 17:49 DC Ascorbic Acid (Vitamin C) 1,000 mg DAILY PO 02/17/21 09:00 03/04/21 09:21 DC 03/03/21 08:34 Diltiazem HCl (Cardizem) 60 mg BID PO 02/16/21 21:00 03/13/21 08:21 Lactobacillus Rhamnosus (Culturelle) 1 cap DAILY PO 02/17/21 09:00 03/04/21 09:21 DC 03/03/21 08:32 Amylase/Lipase/ Protease (Zenpep 10,000) 1 cap TIDBFRMEAL PO 02/17/21 07:30 03/13/21 08:20 Non-Formulary Medication (Magnesium Hydroxide (Milk Of Magnesia)) 2,400 mg PRN DAILY PRN PO CONSTIPATION 02/16/21 17:00 02/16/21 17:37 DC Magnesium Oxide (Magnesium Oxide) 400 mg DAILY PO 02/17/21 09:00 03/04/21 09:21 DC 03/03/21 08:31 Non-Formulary Medication (Methyl Salicylate/ Menthol (Analgesic [place])) 1 debra PRN Q6HRS PRN TP MUSCLE PAIN 02/16/21 17:00 02/16/21 17:37 DC Non-Formulary Medication (Umeclidinium [place] (Incruse Ellipta)) 62.5 mcg DAILY IH 02/17/21 09:00 02/16/21 17:49 DC Non-Formulary Medication (Zinc Gluconate ) 50 mg DAILY PO 02/17/21 09:00 02/16/21 17:46 DC Albuterol/ Ipratropium (Duoneb) 3 ml RTQID NEB 02/16/21 20:00 02/17/21 19:52 DC Albuterol Sulfate (Ventolin) 2.5 mg PRN Q4HRS PRN NEB SHORTNESS OF BREATH 02/16/21 18:00 Influenza Virus Vaccine Quadrival (Flulaval Quad [id number] Syringe) 0.5 ml ONCE ONCE VAX IM 02/17/21 09:00 02/17/21 09:01 DC 02/17/21 09:21 Lidocaine (Lidoderm) 1 patch DAILY PRN TP pain 02/17/21 09:30 02/27/21 10:11 Albuterol/ Ipratropium (Combivent Respimat 20-100 Mcg) 1 puff RTQID INH 02/17/21 20:00 03/13/21 08:22 Sertraline HCl (Zoloft) 25 mg DAILY PO 02/22/21 09:00 02/24/21 10:00 DC 02/24/21 09:59 Sertraline HCl (Zoloft) 50 mg DAILY PO 02/25/21 09:00 03/01/21 18:30 DC 03/01/21 10:07 Olanzapine (ZyPREXA ZYDIS) 5 mg 1X ONCE PO 02/26/21 12:03 02/26/21 12:09 DC 02/26/21 12:25 Clonazepam (KlonoPIN) 0.5 mg DAILY PO 02/28/21 09:00 03/02/21 07:00 DC 03/01/21 10:07 Bupropion HCl (Wellbutrin Xl) 150 mg DAILY PO 03/02/21 09:00 03/08/21 15:46 DC 03/08/21 08:41 Levetiracetam (Keppra) 250 mg DAILY PO 03/03/21 09:00 03/13/21 08:20 Aripiprazole (Abilify) 5 mg DAILY PO 03/05/21 09:00 03/13/21 08:20 Ondansetron HCl (Zofran Odt) 4 mg PRN Q4HRS PRN PO NAUSEA/VOMITING 03/06/21 19:30 03/06/21 19:46 Potassium Chloride (Klor-Con) 30 meq BID PO 03/07/21 09:00 03/13/21 08:19 Divalproex Sodium (Depakote Er) 1,000 mg 1700 PO 03/08/21 17:00 03/12/21 00:01 DC 03/11/21 17:27 Duloxetine HCl (Cymbalta) 30 mg 0900,1700 PO 03/08/21 17:00 03/13/21 08:20 Sulfasalazine (Azulfidine) 500 mg 0900,1300,1700 PO 03/08/21 09:00 03/13/21 08:21 Bupropion HCl (Wellbutrin Xl) 300 mg DAILY PO 03/09/21 09:00 03/13/21 08:20 Potassium Chloride (Klor-Con) 40 meq 1630,1730 PO 03/08/21 16:30 03/08/21 18:04 DC 03/08/21 16:57 Potassium Chloride (Klor-Con) 40 meq 1700,1800 PO 03/08/21 17:15 03/08/21 18:04 DC 03/08/21 17:56 Divalproex Sodium (Depakote Sprinkles) 500 mg BID PO 03/12/21 09:00 03/13/21 08:20 Current Medications Medications (Trade) Dose Ordered Sig/Mya Route PRN Reason Start Time Stop Time Status Last Admin Dose Admin Divalproex Sodium (Depakote Sprinkles) 500 mg BID PO 03/12/21 09:00 03/13/21 08:20 I have reviewed the current psychotropics carefully including drug interactions. Risk benefit ratio favors no change other than as noted in my dictated progress note. Diagnosis: Problems: (1) Impulse control disorder, unspecified (2) Mild cognitive impairment (3) Anxiety disorder, unspecified (4) Bipolar 1 disorder, depressed NITHIN STEVENS MD Mar 13, 2021 08:31
--- NOTE | 2021-03-13 08:44 | PDOC ---
Exam Note: Napoleon Note: This note is a late entry for 03/11/2021 covers elements not covered in my initial note. Subjective: The patient was seen individually in the evening of 03/11/2021 with Joshua BARR, discussed and reviewed the chart. The patient slept 6-3/4 hours previous night. I met with the patient in her room. She was being more alert and cooperative today. Nursing staff would like to change the Depakote extended release to Sprinkle. We will change the 1000 mg daily to Depakote Sprinkle 500 mg twice a day. Check CBC, CMP, valproic acid level, ammonia level in 3 days. The patient was seen in the dayroom evening of 03/11. Review of Systems: Ambulation impaired in wheelchair. Shortness of breath on O2 supplements. No CV, , eye, ENT system symptoms on review. Mental Status Exam: The patient is oriented to herself and situation. Speech is somewhat louder than before. Abstraction fair. Computation impaired. Language function intact. Mood and affect is improved and subjectively she states she feels less depressed. No suicidal ideation. Laboratory Data: Reviewed. Impression: Bipolar disorder, depressed. Anxiety disorder unspecified. Impulse control disorder unspecified. Plan: Continue current psychotropics mentioned in my initial note. We are restarting her on Depakote as noted above. Assessment: Vital Signs/I&O: Vital Signs Date Time Temp Pulse Resp B/P (MAP) Pulse Ox O2 Delivery O2 Flow Rate FiO2 03/13/21 08:21 88 124/78 03/13/21 05:54 96.8 18 90 2.0 03/12/21 06:09 Nasal Cannula I & O 03/12/21 03/12/21 03/13/21 15:00 23:00 07:00 Intake Total 960 ml 540 ml Balance 960 ml 540 ml Current Medications: Meds: Current Medications Medications (Trade) Dose Ordered Sig/Mya Route PRN Reason Start Time Stop Time Status Last Admin Dose Admin Acetaminophen (Tylenol) 650 mg PRN Q6HRS PRN PO MILD PAIN / TEMP > 100.3'F 02/16/21 15:45 03/04/21 09:21 DC 02/18/21 06:31 Multi-Ingredient Ointment (Analgesic [place]) 1 debra PRN QID PRN TP MUSCLE PAIN 02/16/21 15:45 10/23/21 09:21 DC Al Hydroxide/Mg Hydroxide (Mylanta Plus Xs) 15 ml PRN AFTMEALHC PRN PO DYSPEPSIA 02/16/21 15:45 03/04/21 22:05 Magnesium Hydroxide (Milk Of Magnesia) 2,400 mg PRN QHS PRN PO 1ST CHOICE CONSTIPATION 02/16/21 15:45 03/04/21 09:21 DC Acetaminophen (Tylenol) 1,000 mg Q6HRS PRN PO pain or fever 02/16/21 17:00 02/16/21 17:35 DC Acetaminophen (Tylenol) 500 mg Q4HRS PRN PO MILD PAIN 1-3 02/16/21 17:00 02/16/21 17:36 DC Bisacodyl (Dulcolax Tab) 5 mg PRN DAILY PRN PO 2ND CHOICE CONSTIPATION 02/16/21 17:00 03/04/21 09:21 DC Vitamin D (Vitamin D3) 50,000 unit WEEKLY PO 02/22/21 09:00 03/04/21 09:21 DC 02/22/21 07:16 Clonazepam (KlonoPIN) 0.5 mg BID PO 02/16/21 21:00 02/27/21 19:54 DC 02/27/21 10:11 Dicyclomine HCl (Bentyl) 20 mg TID PO 02/16/21 21:00 03/04/21 09:21 DC 03/03/21 21:07 Diphenoxylate HCl/ Atropine (Lomotil) 2 tab BID PO 02/16/21 21:00 03/04/21 09:21 DC 03/03/21 21:08 Divalproex Sodium (Depakote Er) 1,000 mg HS PO 02/16/21 21:00 03/07/21 20:15 DC 03/04/21 21:43 Duloxetine HCl (Cymbalta) 30 mg BID PO 02/16/21 21:00 03/07/21 20:15 DC 03/06/21 08:14 Fluticasone Propionate (Flonase) 2 spray DAILY NS 02/17/21 09:00 03/13/21 08:22 Furosemide (Lasix) 20 mg DAILY PO 02/17/21 09:00 03/04/21 09:21 DC 03/03/21 08:32 Gabapentin (Neurontin) 300 mg QID PO 02/16/21 17:00 03/13/21 08:20 Hydroxyurea (Hydrea) 1,000 mg DAILY PO 02/17/21 09:00 03/13/21 08:22 Levetiracetam (Keppra) 250 mg BID PO 02/16/21 21:00 03/02/21 14:48 DC 03/02/21 09:54 Lidocaine (Lidoderm) 1 patch DAILY TP 02/17/21 09:00 02/17/21 09:24 DC Al Hydroxide/Mg Hydroxide (Mylanta Plus Xs) 15 ml PRN AFTMEALHC PRN PO DYSPEPSIA 02/16/21 17:00 02/16/21 17:36 DC Mirabegron (Myrbetriq) 50 mg DAILY PO 02/17/21 09:00 03/04/21 09:21 DC 03/03/21 08:30 Nystatin (Nystop) 1 debra BID TP 02/16/21 21:00 03/13/21 08:22 Pantoprazole Sodium (Protonix) 40 mg DAILYAC PO 02/17/21 07:30 03/13/21 08:20 Potassium Chloride (Klor-Con) 40 meq DAILY PO 02/17/21 09:00 03/04/21 09:21 DC 03/03/21 08:32 Sulfasalazine (Azulfidine) 500 mg TID PO 02/16/21 21:00 03/07/21 20:15 DC 03/06/21 13:05 Trazodone HCl (Desyrel) 50 mg QHS PO 02/16/21 21:00 03/12/21 19:54 Non-Formulary Medication (Albuterol Sulfate (Albuterol Sulfate Conc Neb Soln)) 1 vial PRN Q4HRS PRN NEB SHORTNESS OF BREATH 02/16/21 17:00 02/16/21 17:49 DC Ascorbic Acid (Vitamin C) 1,000 mg DAILY PO 02/17/21 09:00 03/04/21 09:21 DC 03/03/21 08:34 Diltiazem HCl (Cardizem) 60 mg BID PO 02/16/21 21:00 03/13/21 08:21 Lactobacillus Rhamnosus (Culturelle) 1 cap DAILY PO 02/17/21 09:00 03/04/21 09:21 DC 03/03/21 08:32 Amylase/Lipase/ Protease (Zenpep 10,000) 1 cap TIDBFRMEAL PO 02/17/21 07:30 03/13/21 08:20 Non-Formulary Medication (Magnesium Hydroxide (Milk Of Magnesia)) 2,400 mg PRN DAILY PRN PO CONSTIPATION 02/16/21 17:00 02/16/21 17:37 DC Magnesium Oxide (Magnesium Oxide) 400 mg DAILY PO 02/17/21 09:00 03/04/21 09:21 DC 03/03/21 08:31 Non-Formulary Medication (Methyl Salicylate/ Menthol (Analgesic [place])) 1 debra PRN Q6HRS PRN TP MUSCLE PAIN 02/16/21 17:00 02/16/21 17:37 DC Non-Formulary Medication (Umeclidinium [place] (Incruse Ellipta)) 62.5 mcg DAILY IH 02/17/21 09:00 02/16/21 17:49 DC Non-Formulary Medication (Zinc Gluconate ) 50 mg DAILY PO 02/17/21 09:00 02/16/21 17:46 DC Albuterol/ Ipratropium (Duoneb) 3 ml RTQID NEB 02/16/21 20:00 02/17/21 19:52 DC Albuterol Sulfate (Ventolin) 2.5 mg PRN Q4HRS PRN NEB SHORTNESS OF BREATH 02/16/21 18:00 Influenza Virus Vaccine Quadrival (Flulaval Quad [id number] Syringe) 0.5 ml ONCE ONCE VAX IM 02/17/21 09:00 02/17/21 09:01 DC 02/17/21 09:21 Lidocaine (Lidoderm) 1 patch DAILY PRN TP pain 02/17/21 09:30 02/27/21 10:11 Albuterol/ Ipratropium (Combivent Respimat 20-100 Mcg) 1 puff RTQID INH 02/17/21 20:00 03/13/21 08:22 Sertraline HCl (Zoloft) 25 mg DAILY PO 02/22/21 09:00 02/24/21 10:00 DC 02/24/21 09:59 Sertraline HCl (Zoloft) 50 mg DAILY PO 02/25/21 09:00 03/01/21 18:30 DC 03/01/21 10:07 Olanzapine (ZyPREXA ZYDIS) 5 mg 1X ONCE PO 02/26/21 12:03 02/26/21 12:09 DC 02/26/21 12:25 Clonazepam (KlonoPIN) 0.5 mg DAILY PO 02/28/21 09:00 03/02/21 07:00 DC 03/01/21 10:07 Bupropion HCl (Wellbutrin Xl) 150 mg DAILY PO 03/02/21 09:00 03/08/21 15:46 DC 03/08/21 08:41 Levetiracetam (Keppra) 250 mg DAILY PO 03/03/21 09:00 03/13/21 08:20 Aripiprazole (Abilify) 5 mg DAILY PO 03/05/21 09:00 03/13/21 08:20 Ondansetron HCl (Zofran Odt) 4 mg PRN Q4HRS PRN PO NAUSEA/VOMITING 03/06/21 19:30 03/06/21 19:46 Potassium Chloride (Klor-Con) 30 meq BID PO 03/07/21 09:00 03/13/21 08:19 Divalproex Sodium (Depakote Er) 1,000 mg 1700 PO 03/08/21 17:00 03/12/21 00:01 DC 03/11/21 17:27 Duloxetine HCl (Cymbalta) 30 mg 0900,1700 PO 03/08/21 17:00 03/13/21 08:20 Sulfasalazine (Azulfidine) 500 mg 0900,1300,1700 PO 03/08/21 09:00 03/13/21 08:21 Bupropion HCl (Wellbutrin Xl) 300 mg DAILY PO 03/09/21 09:00 03/13/21 08:20 Potassium Chloride (Klor-Con) 40 meq 1630,1730 PO 03/08/21 16:30 03/08/21 18:04 DC 03/08/21 16:57 Potassium Chloride (Klor-Con) 40 meq 1700,1800 PO 03/08/21 17:15 03/08/21 18:04 DC 03/08/21 17:56 Divalproex Sodium (Depakote Sprinkles) 500 mg BID PO 03/12/21 09:00 03/13/21 08:20 Current Medications Medications (Trade) Dose Ordered Sig/Mya Route PRN Reason Start Time Stop Time Status Last Admin Dose Admin Divalproex Sodium (Depakote Sprinkles) 500 mg BID PO 03/12/21 09:00 03/13/21 08:20 I have reviewed the current psychotropics carefully including drug interactions. Risk benefit ratio favors no change other than as noted in my dictated progress note. Diagnosis: Problems: (1) Impulse control disorder, unspecified (2) Mild cognitive impairment (3) Anxiety disorder, unspecified (4) Bipolar affective, depress, sev w/ psych NITHIN STEVENS MD Mar 13, 2021 08:44
--- NOTE | 2021-03-13 09:04 | PDOC ---
Exam Note: Napoleon Note: Late entry for 03/12/2021. Please also refer to the separate dictated note~for this date of service dictated separately. Discussed the patient with Nursing staff reviewed the chart.~Reviewed interim history and current functioning. Reviewed vital signs,~Labs/ Radiology~and current medications noted below. Continue current treatment with the changes noted in the dictated addendum note Assessment: Vital Signs/I&O: Vital Signs Date Time Temp Pulse Resp B/P (MAP) Pulse Ox O2 Delivery O2 Flow Rate FiO2 03/13/21 08:21 88 124/78 03/13/21 05:54 96.8 18 90 2.0 03/12/21 06:09 Nasal Cannula I & O 03/12/21 03/12/21 03/13/21 15:00 23:00 07:00 Intake Total 960 ml 540 ml Balance 960 ml 540 ml Current Medications: Meds: Current Medications Medications (Trade) Dose Ordered Sig/Mya Route PRN Reason Start Time Stop Time Status Last Admin Dose Admin Acetaminophen (Tylenol) 650 mg PRN Q6HRS PRN PO MILD PAIN / TEMP > 100.3'F 02/16/21 15:45 03/04/21 09:21 DC 02/18/21 06:31 Multi-Ingredient Ointment (Analgesic [place]) 1 debra PRN QID PRN TP MUSCLE PAIN 02/16/21 15:45 03/04/21 09:21 DC Al Hydroxide/Mg Hydroxide (Mylanta Plus Xs) 15 ml PRN AFTMEALHC PRN PO DYSPEPSIA 02/16/21 15:45 03/04/21 22:05 Magnesium Hydroxide (Milk Of Magnesia) 2,400 mg PRN QHS PRN PO 1ST CHOICE CONSTIPATION 02/16/21 15:45 03/04/21 09:21 DC Acetaminophen (Tylenol) 1,000 mg Q6HRS PRN PO pain or fever 02/16/21 17:00 02/16/21 17:35 DC Acetaminophen (Tylenol) 500 mg Q4HRS PRN PO MILD PAIN 1-3 02/16/21 17:00 02/16/21 17:36 DC Bisacodyl (Dulcolax Tab) 5 mg PRN DAILY PRN PO 2ND CHOICE CONSTIPATION 02/16/21 17:00 03/04/21 09:21 DC Vitamin D (Vitamin D3) 50,000 unit WEEKLY PO 02/22/21 09:00 03/04/21 09:21 DC 02/22/21 07:16 Clonazepam (KlonoPIN) 0.5 mg BID PO 02/16/21 21:00 02/27/21 19:54 DC 02/27/21 10:11 Dicyclomine HCl (Bentyl) 20 mg TID PO 02/16/21 21:00 03/04/21 09:21 DC 03/03/21 21:07 Diphenoxylate HCl/ Atropine (Lomotil) 2 tab BID PO 02/16/21 21:00 03/04/21 09:21 DC 03/03/21 21:08 Divalproex Sodium (Depakote Er) 1,000 mg HS PO 02/16/21 21:00 03/07/21 20:15 DC 03/04/21 21:43 Duloxetine HCl (Cymbalta) 30 mg BID PO 02/16/21 21:00 03/07/21 20:15 DC 03/06/21 08:14 Fluticasone Propionate (Flonase) 2 spray DAILY NS 02/17/21 09:00 03/13/21 08:22 Furosemide (Lasix) 20 mg DAILY PO 02/17/21 09:00 03/04/21 09:21 DC 03/03/21 08:32 Gabapentin (Neurontin) 300 mg QID PO 02/16/21 17:00 03/13/21 08:20 Hydroxyurea (Hydrea) 1,000 mg DAILY PO 02/17/21 09:00 03/13/21 08:22 Levetiracetam (Keppra) 250 mg BID PO 02/16/21 21:00 03/02/21 14:48 DC 03/02/21 09:54 Lidocaine (Lidoderm) 1 patch DAILY TP 02/17/21 09:00 02/17/21 09:24 DC Al Hydroxide/Mg Hydroxide (Mylanta Plus Xs) 15 ml PRN AFTMEALHC PRN PO DYSPEPSIA 02/16/21 17:00 02/16/21 17:36 DC Mirabegron (Myrbetriq) 50 mg DAILY PO 02/17/21 09:00 03/04/21 09:21 DC 03/03/21 08:30 Nystatin (Nystop) 1 debra BID TP 02/16/21 21:00 03/13/21 08:22 Pantoprazole Sodium (Protonix) 40 mg DAILYAC PO 02/17/21 07:30 03/13/21 08:20 Potassium Chloride (Klor-Con) 40 meq DAILY PO 02/17/21 09:00 03/04/21 09:21 DC 03/03/21 08:32 Sulfasalazine (Azulfidine) 500 mg TID PO 02/16/21 21:00 03/07/21 20:15 DC 03/06/21 13:05 Trazodone HCl (Desyrel) 50 mg QHS PO 02/16/21 21:00 03/12/21 19:54 Non-Formulary Medication (Albuterol Sulfate (Albuterol Sulfate Conc Neb Soln)) 1 vial PRN Q4HRS PRN NEB SHORTNESS OF BREATH 02/16/21 17:00 02/16/21 17:49 DC Ascorbic Acid (Vitamin C) 1,000 mg DAILY PO 02/17/21 09:00 03/04/21 09:21 DC 03/03/21 08:34 Diltiazem HCl (Cardizem) 60 mg BID PO 02/16/21 21:00 03/13/21 08:21 Lactobacillus Rhamnosus (Culturelle) 1 cap DAILY PO 02/17/21 09:00 03/04/21 09:21 DC 03/03/21 08:32 Amylase/Lipase/ Protease (Zenpep 10,000) 1 cap TIDBFRMEAL PO 02/17/21 07:30 03/13/21 08:20 Non-Formulary Medication (Magnesium Hydroxide (Milk Of Magnesia)) 2,400 mg PRN DAILY PRN PO CONSTIPATION 02/16/21 17:00 02/16/21 17:37 DC Magnesium Oxide (Magnesium Oxide) 400 mg DAILY PO 02/17/21 09:00 03/04/21 09:21 DC 03/03/21 08:31 Non-Formulary Medication (Methyl Salicylate/ Menthol (Analgesic [place])) 1 debra PRN Q6HRS PRN TP MUSCLE PAIN 02/16/21 17:00 02/16/21 17:37 DC Non-Formulary Medication (Umeclidinium [place] (Incruse Ellipta)) 62.5 mcg DAILY IH 02/17/21 09:00 02/16/21 17:49 DC Non-Formulary Medication (Zinc Gluconate ) 50 mg DAILY PO 02/17/21 09:00 02/16/21 17:46 DC Albuterol/ Ipratropium (Duoneb) 3 ml RTQID NEB 02/16/21 20:00 02/17/21 19:52 DC Albuterol Sulfate (Ventolin) 2.5 mg PRN Q4HRS PRN NEB SHORTNESS OF BREATH 02/16/21 18:00 Influenza Virus Vaccine Quadrival (Flulaval Quad [id number] Syringe) 0.5 ml ONCE ONCE VAX IM 02/17/21 09:00 02/17/21 09:01 DC 02/17/21 09:21 Lidocaine (Lidoderm) 1 patch DAILY PRN TP pain 02/17/21 09:30 02/27/21 10:11 Albuterol/ Ipratropium (Combivent Respimat 20-100 Mcg) 1 puff RTQID INH 02/17/21 20:00 03/13/21 08:22 Sertraline HCl (Zoloft) 25 mg DAILY PO 02/22/21 09:00 02/24/21 10:00 DC 02/24/21 09:59 Sertraline HCl (Zoloft) 50 mg DAILY PO 02/25/21 09:00 03/01/21 18:30 DC 03/01/21 10:07 Olanzapine (ZyPREXA ZYDIS) 5 mg 1X ONCE PO 02/26/21 12:03 02/26/21 12:09 DC 02/26/21 12:25 Clonazepam (KlonoPIN) 0.5 mg DAILY PO 02/28/21 09:00 03/02/21 07:00 DC 03/01/21 10:07 Bupropion HCl (Wellbutrin Xl) 150 mg DAILY PO 03/02/21 09:00 03/08/21 15:46 DC 03/08/21 08:41 Levetiracetam (Keppra) 250 mg DAILY PO 03/03/21 09:00 03/13/21 08:20 Aripiprazole (Abilify) 5 mg DAILY PO 03/05/21 09:00 03/13/21 08:20 Ondansetron HCl (Zofran Odt) 4 mg PRN Q4HRS PRN PO NAUSEA/VOMITING 03/06/21 19:30 03/06/21 19:46 Potassium Chloride (Klor-Con) 30 meq BID PO 03/07/21 09:00 03/13/21 08:19 Divalproex Sodium (Depakote Er) 1,000 mg 1700 PO 03/08/21 17:00 03/12/21 00:01 DC 03/11/21 17:27 Duloxetine HCl (Cymbalta) 30 mg 0900,1700 PO 03/08/21 17:00 03/13/21 08:20 Sulfasalazine (Azulfidine) 500 mg 0900,1300,1700 PO 03/08/21 09:00 03/13/21 08:21 Bupropion HCl (Wellbutrin Xl) 300 mg DAILY PO 03/09/21 09:00 03/13/21 08:20 Potassium Chloride (Klor-Con) 40 meq 1630,1730 PO 03/08/21 16:30 03/08/21 18:04 DC 03/08/21 16:57 Potassium Chloride (Klor-Con) 40 meq 1700,1800 PO 03/08/21 17:15 03/08/21 18:04 DC 03/08/21 17:56 Divalproex Sodium (Depakote Sprinkles) 500 mg BID PO 03/12/21 09:00 03/13/21 08:20 I have reviewed the current psychotropics carefully including drug interactions. Risk benefit ratio favors no change other than as noted in my dictated progress note. Diagnosis: Problems: (1) Impulse control disorder, unspecified (2) Mild cognitive impairment (3) Anxiety disorder, unspecified (4) Bipolar affective, depress, sev w/ psych NITHIN STEVENS MD Mar 13, 2021 09:04
--- NOTE | 2021-03-13 09:50 | NUR ---
Nursing note: Pt in dining room at time of AM med pass and assessment. She is pleasant, compliant with meds crushed in applesauce and cooperative with her assessment. She denies having any pain/concerns. She is currently in the day room watching TV. Will continue to monitor.
[2021-03-13 15:48] VITALS: BP 129/76
[2021-03-13] MEDS: traZODone 50 MG TABLET. PO SCH (19:50)
--- NOTE | 2021-03-13 22:08 | NUR ---
Pt sitting calmly in the hallway this evening. Pt calm and pleasant. Compliant with crushed medications. Pt currently sleeping in bed.
[2021-03-14 05:38] VITALS: BP 106/70
[2021-03-14] MEDS: IPRATROPIUM/ALBUTEROL 20/100mcg/INH INHALER. INH SCH ×4 (08:00→20:00)
[2021-03-14] MEDS: PANTOPRAZOLE 40 MG TABLET. PO SCH (08:22)
[2021-03-14] MEDS: levETIRAcetam 250 MG TABLET PO SCH (08:22)
[2021-03-14] MEDS: buPROPion XL 300 MG TAB.ER.24H. PO SCH (08:22)
[2021-03-14] MEDS: GABAPENTIN 300 MG CAPSULE. PO SCH ×4 (08:22→19:59)
[2021-03-14] MEDS: sulfaSALAzine 500 MG TABLET PO SCH ×3 (08:23→17:21)
[2021-03-14] MEDS: DULoxetine HCL 30 MG CAPSULE.DR PO SCH ×2 (08:23→17:21)
[2021-03-14] MEDS: LIPASE/PROTEAS/AMYLAS 10/32/42 CAPSULE.DR. PO SCH ×3 (08:23→17:21)
[2021-03-14] MEDS: ARIPiprazole 5 MG TABLET PO SCH (08:23)
[2021-03-14] MEDS: POTASSIUM CHLORIDE 10 MEQ TABLET.ER. PO SCH ×2 (08:23→19:59)
[2021-03-14] MEDS: DIVALPROEX 125 MG CAP.SPRINK PO SCH ×2 (08:24→19:58)
[2021-03-14] MEDS: HYDROXYUREA 500 MG CAPSULE PO SCH (08:24)
[2021-03-14] MEDS: NYSTATIN TOPICAL POWDER 15GM BOTTLE. TP SCH ×2 (08:25→19:58)
[2021-03-14] MEDS: FLUTICASONE 50MCG/NASAL SPRAY 16GM BOTTLE. NS SCH (08:26)
--- NOTE | 2021-03-14 08:35 | PDOC ---
Exam Note: Napoleon Note: This note is a late entry for 03/13/2021 covers elements not covered in my initial note. Subjective: The patient was seen individually in the evening of 03/13/2021 with Cassie BARR, discussed and reviewed the chart. The patient slept 8-1/4 hours previous night. Overall she is doing better. She is little more animated, interactive, keeping her oxygen in place. Review of Systems: Ambulation impaired in wheelchair. Shortness of breath on O2 supplements. No CV, , eye, ENT system symptoms on review. Mental Status Exam: The patient is reasonably oriented. Speech has some latency, coherent. Abstraction fair. Computation impaired. Language function intact. Mood and affect is less withdrawn. No clear psychotic symptoms or suicidal ideation and she was smiling as I met with her. Laboratory Data: Reviewed. Impression: Bipolar disorder, depressed. Anxiety disorder unspecified. Impulse control disorder unspecified. Plan: Continue current psychotropics from initial note. Maintain Cymbalta along with Wellbutrin, Depakote, gabapentin and she is on Keppra for her seizures and trazodone, Abilify 5 mg a day. Reviewed drug interactions and risk-benefit ratio. Assessment: Vital Signs/I&O: Vital Signs Date Time Temp Pulse Resp B/P (MAP) Pulse Ox O2 Delivery O2 Flow Rate FiO2 03/14/21 05:38 98.2 74 20 106/70 (82) 92 Nasal Cannula 2.0 I & O 03/13/21 03/13/21 03/14/21 15:00 23:00 07:00 Intake Total 600 ml 480 ml Balance 600 ml 480 ml Current Medications: Meds: Current Medications Medications (Trade) Dose Ordered Sig/Mya Route PRN Reason Start Time Stop Time Status Last Admin Dose Admin Acetaminophen (Tylenol) 650 mg PRN Q6HRS PRN PO MILD PAIN / TEMP > 100.3'F 02/16/21 15:45 03/04/21 09:21 DC 02/18/21 06:31 Multi-Ingredient Ointment (Analgesic [place]) 1 debra PRN QID PRN TP MUSCLE PAIN 02/16/21 15:45 03/04/21 09:21 DC Al Hydroxide/Mg Hydroxide (Mylanta Plus Xs) 15 ml PRN AFTMEALHC PRN PO DYSPEPSIA 02/16/21 15:45 03/04/21 22:05 Magnesium Hydroxide (Milk Of Magnesia) 2,400 mg PRN QHS PRN PO 1ST CHOICE CONSTIPATION 02/16/21 15:45 03/04/21 09:21 DC Acetaminophen (Tylenol) 1,000 mg Q6HRS PRN PO pain or fever 02/16/21 17:00 02/16/21 17:35 DC Acetaminophen (Tylenol) 500 mg Q4HRS PRN PO MILD PAIN 1-3 02/16/21 17:00 02/16/21 17:36 DC Bisacodyl (Dulcolax Tab) 5 mg PRN DAILY PRN PO 2ND CHOICE CONSTIPATION 02/16/21 17:00 03/04/21 09:21 DC Vitamin D (Vitamin D3) 50,000 unit WEEKLY PO 02/22/21 09:00 03/04/21 09:21 DC 02/22/21 07:16 Clonazepam (KlonoPIN) 0.5 mg BID PO 02/16/21 21:00 02/27/21 19:54 DC 02/27/21 10:11 Dicyclomine HCl (Bentyl) 20 mg TID PO 02/16/21 21:00 03/04/21 09:21 DC 03/03/21 21:07 Diphenoxylate HCl/ Atropine (Lomotil) 2 tab BID PO 02/16/21 21:00 03/04/21 09:21 DC 03/03/21 21:08 Divalproex Sodium (Depakote Er) 1,000 mg HS PO 02/16/21 21:00 03/07/21 20:15 DC 03/04/21 21:43 Duloxetine HCl (Cymbalta) 30 mg BID PO 02/16/21 21:00 03/07/21 20:15 DC 03/06/21 08:14 Fluticasone Propionate (Flonase) 2 spray DAILY NS 02/17/21 09:00 03/13/21 08:22 Furosemide (Lasix) 20 mg DAILY PO 02/17/21 09:00 03/04/21 09:21 DC 03/03/21 08:32 Gabapentin (Neurontin) 300 mg QID PO 02/16/21 17:00 03/14/21 08:22 Hydroxyurea (Hydrea) 1,000 mg DAILY PO 02/17/21 09:00 03/14/21 08:24 Levetiracetam (Keppra) 250 mg BID PO 02/16/21 21:00 03/02/21 14:48 DC 03/02/21 09:54 Lidocaine (Lidoderm) 1 patch DAILY TP 02/17/21 09:00 02/17/21 09:24 DC Al Hydroxide/Mg Hydroxide (Mylanta Plus Xs) 15 ml PRN AFTMEALHC PRN PO DYSPEPSIA 02/16/21 17:00 02/16/21 17:36 DC Mirabegron (Myrbetriq) 50 mg DAILY PO 02/17/21 09:00 03/04/21 09:21 DC 03/03/21 08:30 Nystatin (Nystop) 1 debra BID TP 02/16/21 21:00 03/14/21 08:25 Pantoprazole Sodium (Protonix) 40 mg DAILYAC PO 02/17/21 07:30 03/14/21 08:22 Potassium Chloride (Klor-Con) 40 meq DAILY PO 02/17/21 09:00 03/04/21 09:21 DC 03/03/21 08:32 Sulfasalazine (Azulfidine) 500 mg TID PO 02/16/21 21:00 03/07/21 20:15 DC 03/06/21 13:05 Trazodone HCl (Desyrel) 50 mg QHS PO 02/16/21 21:00 03/13/21 19:50 Non-Formulary Medication (Albuterol Sulfate (Albuterol Sulfate Conc Neb Soln)) 1 vial PRN Q4HRS PRN NEB SHORTNESS OF BREATH 02/16/21 17:00 02/16/21 17:49 DC Ascorbic Acid (Vitamin C) 1,000 mg DAILY PO 02/17/21 09:00 03/04/21 09:21 DC 03/03/21 08:34 Diltiazem HCl (Cardizem) 60 mg BID PO 02/16/21 21:00 03/13/21 19:51 Lactobacillus Rhamnosus (Culturelle) 1 cap DAILY PO 02/17/21 09:00 03/04/21 09:21 DC 03/03/21 08:32 Amylase/Lipase/ Protease (Zenpep 10,000) 1 cap TIDBFRMEAL PO 02/17/21 07:30 03/14/21 08:23 Non-Formulary Medication (Magnesium Hydroxide (Milk Of Magnesia)) 2,400 mg PRN DAILY PRN PO CONSTIPATION 02/16/21 17:00 02/16/21 17:37 DC Magnesium Oxide (Magnesium Oxide) 400 mg DAILY PO 02/17/21 09:00 03/04/21 09:21 DC 03/03/21 08:31 Non-Formulary Medication (Methyl Salicylate/ Menthol (Analgesic [place])) 1 debra PRN Q6HRS PRN TP MUSCLE PAIN 02/16/21 17:00 02/16/21 17:37 DC Non-Formulary Medication (Umeclidinium [place] (Incruse Ellipta)) 62.5 mcg DAILY IH 02/17/21 09:00 02/16/21 17:49 DC Non-Formulary Medication (Zinc Gluconate ) 50 mg DAILY PO 02/17/21 09:00 02/16/21 17:46 DC Albuterol/ Ipratropium (Duoneb) 3 ml RTQID NEB 02/16/21 20:00 02/17/21 19:52 DC Albuterol Sulfate (Ventolin) 2.5 mg PRN Q4HRS PRN NEB SHORTNESS OF BREATH 02/16/21 18:00 Influenza Virus Vaccine Quadrival (Flulaval Quad [id number] Syringe) 0.5 ml ONCE ONCE VAX IM 02/17/21 09:00 02/17/21 09:01 DC 02/17/21 09:21 Lidocaine (Lidoderm) 1 patch DAILY PRN TP pain 02/17/21 09:30 02/27/21 10:11 Albuterol/ Ipratropium (Combivent Respimat 20-100 Mcg) 1 puff RTQID INH 02/17/21 20:00 03/13/21 19:51 Sertraline HCl (Zoloft) 25 mg DAILY PO 02/22/21 09:00 02/24/21 10:00 DC 02/24/21 09:59 Sertraline HCl (Zoloft) 50 mg DAILY PO 02/25/21 09:00 03/01/21 18:30 DC 03/01/21 10:07 Olanzapine (ZyPREXA ZYDIS) 5 mg 1X ONCE PO 02/26/21 12:03 02/26/21 12:09 DC 02/26/21 12:25 Clonazepam (KlonoPIN) 0.5 mg DAILY PO 02/28/21 09:00 03/02/21 07:00 DC 03/01/21 10:07 Bupropion HCl (Wellbutrin Xl) 150 mg DAILY PO 03/02/21 09:00 03/08/21 15:46 DC 03/08/21 08:41 Levetiracetam (Keppra) 250 mg DAILY PO 03/03/21 09:00 03/14/21 08:22 Aripiprazole (Abilify) 5 mg DAILY PO 03/05/21 09:00 03/14/21 08:23 Ondansetron HCl (Zofran Odt) 4 mg PRN Q4HRS PRN PO NAUSEA/VOMITING 03/06/21 19:30 03/06/21 19:46 Potassium Chloride (Klor-Con) 30 meq BID PO 03/07/21 09:00 03/14/21 08:23 Divalproex Sodium (Depakote Er) 1,000 mg 1700 PO 03/08/21 17:00 03/12/21 00:01 DC 03/11/21 17:27 Duloxetine HCl (Cymbalta) 30 mg 0900,1700 PO 03/08/21 17:00 03/14/21 08:23 Sulfasalazine (Azulfidine) 500 mg 0900,1300,1700 PO 03/08/21 09:00 03/14/21 08:23 Bupropion HCl (Wellbutrin Xl) 300 mg DAILY PO 03/09/21 09:00 03/14/21 08:22 Potassium Chloride (Klor-Con) 40 meq 1630,1730 PO 03/08/21 16:30 03/08/21 18:04 DC 03/08/21 16:57 Potassium Chloride (Klor-Con) 40 meq 1700,1800 PO 03/08/21 17:15 03/08/21 18:04 DC 03/08/21 17:56 Divalproex Sodium (Depakote Sprinkles) 500 mg BID PO 03/12/21 09:00 03/14/21 08:24 I have reviewed the current psychotropics carefully including drug interactions. Risk benefit ratio favors no change other than as noted in my dictated progress note. Diagnosis: Problems: (1) Bipolar affective, depress, sev w/ psych (2) Anxiety disorder, unspecified (3) Mild cognitive impairment (4) Impulse control disorder, unspecified INTHIN STEVENS MD Mar 14, 2021 08:35
[2021-03-14] MEDS: dilTIAZem HCL 30 MG TABLET PO SCH ×2 (09:53→19:59)
[2021-03-14 14:52] LABS: BASO # 0.1 x10^3/uL (0.0-0.2); BASO % 1 % (0-3); EOS # 0.1 x10^3/uL (0.0-0.7); EOS % 2 % (0-3); HEMATOCRIT 34.3 % (36.0-47.0); HEMOGLOBIN 11.5 g/dL (12.0-15.5); LYMPH % 15 % (24-48); MEAN CORPUSCULAR HEMOGLOBIN 36 pg (25-35); MEAN CORPUSCULAR HGB CONC 33 g/dL (31-37); MEAN CORPUSCULAR VOLUME 108 fL (79-100); MONO # 0.8 x10^3/uL (0.0-1.1); MONO % 12 % (0-9); NEUT # 4.8 x10^3uL (1.8-7.7); NEUT % 71 % (31-73); PLATELET COUNT 237 x10^3/uL (140-400); RED BLOOD COUNT 3.17 x10^6/uL (3.50-5.40); RED CELL DISTRIBUTION WIDTH 16.3 % (11.5-14.5); WHITE BLOOD COUNT 6.8 x10^3/uL (4.0-11.0)
[2021-03-14 15:12] LABS: ALBUMIN 2.2 g/dL (3.4-5.0); ALBUMIN/GLOBULIN RATIO 0.6 (1.0-1.7); CALCIUM 8.8 mg/dL (8.5-10.1); CREATININE 0.6 mg/dL (0.6-1.0); GFR 99.1; POTASSIUM 3.7 mmol/L (3.5-5.1); TOTAL BILIRUBIN 0.3 mg/dL (0.2-1.0); TOTAL PROTEIN 5.8 g/dL (6.4-8.2)
[2021-03-14 15:42] VITALS: BP 107/70
--- NOTE | 2021-03-14 17:06 | NUR ---
Nsg Note; Brigitte has been withdrawn today, sitting in a chair in the dayroom in the am, and taking to her bed in the afternoon. She will answer questions briefly but is difficult to engage in a more extensive conversation. She has been med and oxygen use compliant today.
[2021-03-14] MEDS: traZODone 50 MG TABLET. PO SCH (19:59)
--- NOTE | 2021-03-14 22:18 | PDOC ---
Exam Note: Napoleon Note: Please also refer to the separate dictated note~for this date of service dictated separately.~Patient seen individually. Discussed the patient with Nursing staff reviewed the chart.~Reviewed interim history and current functioning. Reviewed vital signs,~Labs/ Radiology~and current medications noted below. Continue current treatment with the changes noted in the dictated addendum note Assessment: Vital Signs/I&O: Vital Signs Date Time Temp Pulse Resp B/P (MAP) Pulse Ox O2 Delivery O2 Flow Rate FiO2 03/14/21 19:59 98 107/70 03/14/21 15:42 99.2 20 97 2.0 03/14/21 05:38 Nasal Cannula I & O 0 03/13/21 03/13/21 03/14/21 15:00 23:00 07:00 Intake Total 600 ml 480 ml Balance 600 ml 480 ml Labs: Laboratory Tests Test 03/14/21 14:30 White Blood Count 6.8 x10^3/uL (4.0-11.0) Red Blood Count 3.17 x10^6/uL (3.50-5.40) L Hemoglobin 11.5 g/dL (12.0-15.5) L Hematocrit 34.3 % (36.0-47.0) L Mean Corpuscular Volume 108 fL (79-100) H Mean Corpuscular Hemoglobin 36 pg (25-35) H Mean Corpuscular Hemoglobin Concent 33 g/dL (31-37) Red Cell Distribution Width 16.3 % (11.5-14.5) H Platelet Count 237 x10^3/uL (140-400) Neutrophils (%) (Auto) 71 % (31-73) Lymphocytes (%) (Auto) 15 % (24-48) L Monocytes (%) (Auto) 12 % (0-9) H Eosinophils (%) (Auto) 2 % (0-3) Basophils (%) (Auto) 1 % (0-3) Neutrophils # (Auto) 4.8 x10^3uL (1.8-7.7) Lymphocytes # (Auto) 1.0 x10^3/uL (1.0-4.8) Monocytes # (Auto) 0.8 x10^3/uL (0.0-1.1) Eosinophils # (Auto) 0.1 x10^3/uL (0.0-0.7) Basophils # (Auto) 0.1 x10^3/uL (0.0-0.2) Sodium Level 135 mmol/L (136-145) L Potassium Level 3.7 mmol/L (3.5-5.1) Chloride Level 102 mmol/L (98-107) Carbon Dioxide Level 28 mmol/L (21-32) Anion Gap 5 (6-14) L Blood Urea Nitrogen 12 mg/dL (7-20) Creatinine 0.6 mg/dL (0.6-1.0) Estimated GFR (Cockcroft-Gault) 99.1 BUN/Creatinine Ratio 20 (6-20) Glucose Level 166 mg/dL (70-99) H Calcium Level 8.8 mg/dL (8.5-10.1) Total Bilirubin 0.3 mg/dL (0.2-1.0) Aspartate Amino Transferase (AST) 13 U/L (15-37) L Alanine Aminotransferase (ALT) 11 U/L (14-59) L Alkaline Phosphatase 82 U/L (46-116) Total Protein 5.8 g/dL (6.4-8.2) L Albumin 2.2 g/dL (3.4-5.0) L Albumin/Globulin Ratio 0.6 (1.0-1.7) L Current Medications: Meds: Laboratory Tests Test 03/14/21 14:30 White Blood Count 6.8 x10^3/uL Red Blood Count 3.17 x10^6/uL Hemoglobin 11.5 g/dL Hematocrit 34.3 % Mean Corpuscular Volume 108 fL Mean Corpuscular Hemoglobin 36 pg Mean Corpuscular Hemoglobin Concent 33 g/dL Red Cell Distribution Width 16.3 % Platelet Count 237 x10^3/uL Neutrophils (%) (Auto) 71 % Lymphocytes (%) (Auto) 15 % Monocytes (%) (Auto) 12 % Eosinophils (%) (Auto) 2 % Basophils (%) (Auto) 1 % Neutrophils # (Auto) 4.8 x10^3uL Lymphocytes # (Auto) 1.0 x10^3/uL Monocytes # (Auto) 0.8 x10^3/uL Eosinophils # (Auto) 0.1 x10^3/uL Basophils # (Auto) 0.1 x10^3/uL Sodium Level 135 mmol/L Potassium Level 3.7 mmol/L Chloride Level 102 mmol/L Carbon Dioxide Level 28 mmol/L Anion Gap 5 Blood Urea Nitrogen 12 mg/dL Creatinine 0.6 mg/dL Estimated GFR (Cockcroft-Gault) 99.1 BUN/Creatinine Ratio 20 Glucose Level 166 mg/dL Calcium Level 8.8 mg/dL Total Bilirubin 0.3 mg/dL Aspartate Amino Transf (AST/SGOT) 13 U/L Alanine Aminotransferase (ALT/SGPT) 11 U/L Alkaline Phosphatase 82 U/L Total Protein 5.8 g/dL Albumin 2.2 g/dL Albumin/Globulin Ratio 0.6 Current Medications Medications (Trade) Dose Ordered Sig/Mya Route PRN Reason Start Time Stop Time Status Last Admin Dose Admin Acetaminophen (Tylenol) 650 mg PRN Q6HRS PRN PO MILD PAIN / TEMP > 100.3'F 02/16/21 15:45 03/04/21 09:21 DC 02/18/21 06:31 Multi-Ingredient Ointment (Analgesic [place]) 1 debra PRN QID PRN TP MUSCLE PAIN 02/16/21 15:45 03/04/21 09:21 DC Al Hydroxide/Mg Hydroxide (Mylanta Plus Xs) 15 ml PRN AFTMEALHC PRN PO DYSPEPSIA 02/16/21 15:45 03/04/21 22:05 Magnesium Hydroxide (Milk Of Magnesia) 2,400 mg PRN QHS PRN PO 1ST CHOICE CONSTIPATION 02/16/21 15:45 03/04/21 09:21 DC Acetaminophen (Tylenol) 1,000 mg Q6HRS PRN PO pain or fever 02/16/21 17:00 02/16/21 17:35 DC Acetaminophen (Tylenol) 500 mg Q4HRS PRN PO MILD PAIN 1-3 02/16/21 17:00 02/16/21 17:36 DC Bisacodyl (Dulcolax Tab) 5 mg PRN DAILY PRN PO 2ND CHOICE CONSTIPATION 02/16/21 17:00 03/04/21 09:21 DC Vitamin D (Vitamin D3) 50,000 unit WEEKLY PO 02/22/21 09:00 03/04/21 09:21 DC 02/22/21 07:16 Clonazepam (KlonoPIN) 0.5 mg BID PO 02/16/21 21:00 02/27/21 19:54 DC 02/27/21 10:11 Dicyclomine HCl (Bentyl) 20 mg TID PO 02/16/21 21:00 03/04/21 09:21 DC 03/03/21 21:07 Diphenoxylate HCl/ Atropine (Lomotil) 2 tab BID PO 02/16/21 21:00 03/04/21 09:21 DC 03/03/21 21:08 Divalproex Sodium (Depakote Er) 1,000 mg HS PO 02/16/21 21:00 03/07/21 20:15 DC 03/04/21 21:43 Duloxetine HCl (Cymbalta) 30 mg BID PO 02/16/21 21:00 03/07/21 20:15 DC 03/06/21 08:14 Fluticasone Propionate (Flonase) 2 spray DAILY NS 02/17/21 09:00 03/13/21 08:22 Furosemide (Lasix) 20 mg DAILY PO 02/17/21 09:00 03/04/21 09:21 DC 03/03/21 08:32 Gabapentin (Neurontin) 300 mg QID PO 02/16/21 17:00 03/14/21 19:59 Hydroxyurea (Hydrea) 1,000 mg DAILY PO 02/17/21 09:00 03/14/21 08:24 Levetiracetam (Keppra) 250 mg BID PO 02/16/21 21:00 03/02/21 14:48 DC 03/02/21 09:54 Lidocaine (Lidoderm) 1 patch DAILY TP 02/17/21 09:00 02/17/21 09:24 DC Al Hydroxide/Mg Hydroxide (Mylanta Plus Xs) 15 ml PRN AFTMEALHC PRN PO DYSPEPSIA 02/16/21 17:00 02/16/21 17:36 DC Mirabegron (Myrbetriq) 50 mg DAILY PO 02/17/21 09:00 03/04/21 09:21 DC 03/03/21 08:30 Nystatin (Nystop) 1 debra BID TP 02/16/21 21:00 03/14/21 19:58 Pantoprazole Sodium (Protonix) 40 mg DAILYAC PO 02/17/21 07:30 03/14/21 08:22 Potassium Chloride (Klor-Con) 40 meq DAILY PO 02/17/21 09:00 03/04/21 09:21 DC 03/03/21 08:32 Sulfasalazine (Azulfidine) 500 mg TID PO 02/16/21 21:00 03/07/21 20:15 DC 03/06/21 13:05 Trazodone HCl (Desyrel) 50 mg QHS PO 02/16/21 21:00 03/14/21 19:59 Non-Formulary Medication (Albuterol Sulfate (Albuterol Sulfate Conc Neb Soln)) 1 vial PRN Q4HRS PRN NEB SHORTNESS OF BREATH 02/16/21 17:00 02/16/21 17:49 DC Ascorbic Acid (Vitamin C) 1,000 mg DAILY PO 02/17/21 09:00 03/04/21 09:21 DC 03/03/21 08:34 Diltiazem HCl (Cardizem) 60 mg BID PO 02/16/21 21:00 03/14/21 19:59 Lactobacillus Rhamnosus (Culturelle) 1 cap DAILY PO 02/17/21 09:00 03/04/21 09:21 DC 03/03/21 08:32 Amylase/Lipase/ Protease (Zenpep 10,000) 1 cap TIDBFRMEAL PO 02/17/21 07:30 03/14/21 17:21 Non-Formulary Medication (Magnesium Hydroxide (Milk Of Magnesia)) 2,400 mg PRN DAILY PRN PO CONSTIPATION 02/16/21 17:00 02/16/21 17:37 DC Magnesium Oxide (Magnesium Oxide) 400 mg DAILY PO 02/17/21 09:00 03/04/21 09:21 DC 03/03/21 08:31 Non-Formulary Medication (Methyl Salicylate/ Menthol (Analgesic [place])) 1 debra PRN Q6HRS PRN TP MUSCLE PAIN 02/16/21 17:00 02/16/21 17:37 DC Non-Formulary Medication (Umeclidinium [place] (Incruse Ellipta)) 62.5 mcg DAILY IH 02/17/21 09:00 02/16/21 17:49 DC Non-Formulary Medication (Zinc Gluconate ) 50 mg DAILY PO 02/17/21 09:00 02/16/21 17:46 DC Albuterol/ Ipratropium (Duoneb) 3 ml RTQID NEB 02/16/21 20:00 02/17/21 19:52 DC Albuterol Sulfate (Ventolin) 2.5 mg PRN Q4HRS PRN NEB SHORTNESS OF BREATH 02/16/21 18:00 Influenza Virus Vaccine Quadrival (Flulaval Quad [id number] Syringe) 0.5 ml ONCE ONCE VAX IM 02/17/21 09:00 02/17/21 09:01 DC 02/17/21 09:21 Lidocaine (Lidoderm) 1 patch DAILY PRN TP pain 02/17/21 09:30 02/27/21 10:11 Albuterol/ Ipratropium (Combivent Respimat 20-100 Mcg) 1 puff RTQID INH 02/17/21 20:00 03/14/21 20:00 Sertraline HCl (Zoloft) 25 mg DAILY PO 02/22/21 09:00 02/24/21 10:00 DC 02/24/21 09:59 Sertraline HCl (Zoloft) 50 mg DAILY PO 02/25/21 09:00 03/01/21 18:30 DC 03/01/21 10:07 Olanzapine (ZyPREXA ZYDIS) 5 mg 1X ONCE PO 02/26/21 12:03 02/26/21 12:09 DC 02/26/21 12:25 Clonazepam (KlonoPIN) 0.5 mg DAILY PO 02/28/21 09:00 03/02/21 07:00 DC 03/01/21 10:07 Bupropion HCl (Wellbutrin Xl) 150 mg DAILY PO 03/02/21 09:00 03/08/21 15:46 DC 03/08/21 08:41 Levetiracetam (Keppra) 250 mg DAILY PO 03/03/21 09:00 03/14/21 08:22 Aripiprazole (Abilify) 5 mg DAILY PO 03/05/21 09:00 03/14/21 08:23 Ondansetron HCl (Zofran Odt) 4 mg PRN Q4HRS PRN PO NAUSEA/VOMITING 03/06/21 19:30 03/06/21 19:46 Potassium Chloride (Klor-Con) 30 meq BID PO 03/07/21 09:00 03/14/21 19:59 Divalproex Sodium (Depakote Er) 1,000 mg 1700 PO 03/08/21 17:00 03/12/21 00:01 DC 03/11/21 17:27 Duloxetine HCl (Cymbalta) 30 mg 0900,1700 PO 03/08/21 17:00 03/14/21 17:21 Sulfasalazine (Azulfidine) 500 mg 0900,1300,1700 PO 03/08/21 09:00 03/14/21 17:21 Bupropion HCl (Wellbutrin Xl) 300 mg DAILY PO 03/09/21 09:00 03/14/21 08:22 Potassium Chloride (Klor-Con) 40 meq 1630,1730 PO 03/08/21 16:30 03/08/21 18:04 DC 03/08/21 16:57 Potassium Chloride (Klor-Con) 40 meq 1700,1800 PO 03/08/21 17:15 03/08/21 18:04 DC 03/08/21 17:56 Divalproex Sodium (Depakote Sprinkles) 500 mg BID PO 03/12/21 09:00 03/14/21 19:58 I have reviewed the current psychotropics carefully including drug interactions. Risk benefit ratio favors no change other than as noted in my dictated progress note. Diagnosis: Problems: (1) Impulse control disorder, unspecified (2) Mild cognitive impairment (3) Anxiety disorder, unspecified (4) Bipolar affective, depress, sev w/ psych NITHIN STEVENS MD Mar 14, 2021 22:18
--- NOTE | 2021-03-14 22:26 | NUR ---
Patient was in bed when this nurse came on shift. Patient has been calm, pleasant and cooperative tonight. She took HS medications crushed in applesauce, potassium dissolved in apple juice. It was reported that patient has been eating better at meals. She has been wearing her oxygen this shift and has made no SI statements. Patient refused HS snack but did drink ice water.
[2021-03-15 06:00] VITALS: BP 133/76
[2021-03-15] MEDS: DULoxetine HCL 30 MG CAPSULE.DR PO SCH ×2 (08:19→17:15)
[2021-03-15] MEDS: LIPASE/PROTEAS/AMYLAS 10/32/42 CAPSULE.DR. PO SCH ×3 (08:19→17:15)
[2021-03-15] MEDS: POTASSIUM CHLORIDE 10 MEQ TABLET.ER. PO SCH ×2 (08:20→20:16)
[2021-03-15] MEDS: PANTOPRAZOLE 40 MG TABLET. PO SCH (08:20)
[2021-03-15] MEDS: ARIPiprazole 5 MG TABLET PO SCH (08:21)
[2021-03-15] MEDS: DIVALPROEX 125 MG CAP.SPRINK PO SCH ×2 (08:21→20:15)
[2021-03-15] MEDS: levETIRAcetam 250 MG TABLET PO SCH (08:21)
[2021-03-15] MEDS: buPROPion XL 300 MG TAB.ER.24H. PO SCH (08:21)
[2021-03-15] MEDS: dilTIAZem HCL 30 MG TABLET PO SCH ×2 (08:22→20:15)
[2021-03-15] MEDS: sulfaSALAzine 500 MG TABLET PO SCH ×3 (08:22→17:15)
[2021-03-15] MEDS: IPRATROPIUM/ALBUTEROL 20/100mcg/INH INHALER. INH SCH ×4 (08:23→20:16)
[2021-03-15] MEDS: HYDROXYUREA 500 MG CAPSULE PO SCH (08:23)
[2021-03-15] MEDS: FLUTICASONE 50MCG/NASAL SPRAY 16GM BOTTLE. NS SCH (08:23)
[2021-03-15] MEDS: GABAPENTIN 300 MG CAPSULE. PO SCH ×4 (08:25→20:14)
[2021-03-15] MEDS: NYSTATIN TOPICAL POWDER 15GM BOTTLE. TP SCH ×2 (08:25→20:16)
--- NOTE | 2021-03-15 12:50 | NUR ---
Nursing note: Pt in dining room at time of AM med pass and assessment. She was compliant with meds crushed in applesauce with encouragement. Pt took her oxygen off after she was done eating breakfast and was not cooperating with staff when attempting to put it back on. Pt eventually allowed staff to replace her oxygen. She is currently in her room sleeping. Will continue to monitor.
[2021-03-15 15:34] VITALS: BP 110/68
[2021-03-15] MEDS: traZODone 50 MG TABLET. PO SCH (20:15)
--- NOTE | 2021-03-15 21:49 | PDOC ---
Exam Note: Napoleon Note: Information from date of service 03/12/21 and my information from nursing staff for that date and review of labs and interim progress from 03/12/21 was incorporated into the note of 03/13. This note is a late entry for 03/14/2021 covers elements not covered in my initial note. Subjective: The patient was seen individually in the evening of 03/14/2021 with Federica BARR, discussed and reviewed the chart. The patient slept 7-1/2 hours previous night. Overall she remains somewhat withdrawn but has been keeping her oxygen in place. She still has limited social skills but improving. I met with her in her room in the evening. Review of Systems: Ambulation impaired in wheelchair. Shortness of breath on O2 supplements. No CV, , eye, ENT system symptoms on review. Mental Status Exam: The patient is awake, alert, and oriented. Speech is low in rate and rhythm, low in volume, coherent. Often response is monosyllabic. Abstraction fair. Computation impaired. Language function intact. Attention span short. Mood and affect is withdrawn but better than before. Laboratory Data: Reviewed. Impression: Bipolar disorder, depressed. Anxiety disorder unspecified. Impulse control disorder unspecified. Plan: Continue current psychotropics from initial note. Assessment: Vital Signs/I&O: Vital Signs Date Time Temp Pulse Resp B/P (MAP) Pulse Ox O2 Delivery O2 Flow Rate FiO2 03/15/21 20:15 92 110/68 03/15/21 15:34 98.4 18 97 3.0 03/14/21 05:38 Nasal Cannula I & O 03/14/21 03/14/21 03/15/21 15:00 23:00 07:00 Intake Total 840 ml 500 ml Balance 840 ml 500 ml Current Medications: Meds: Current Medications Medications (Trade) Dose Ordered Sig/Mya Route PRN Reason Start Time Stop Time Status Last Admin Dose Admin Acetaminophen (Tylenol) 650 mg PRN Q6HRS PRN PO MILD PAIN / TEMP > 100.3'F 02/16/21 15:45 03/04/21 09:21 DC 02/18/21 06:31 Multi-Ingredient Ointment (Analgesic [place]) 1 debra PRN QID PRN TP MUSCLE PAIN 02/16/21 15:45 03/04/21 09:21 DC Al Hydroxide/Mg Hydroxide (Mylanta Plus Xs) 15 ml PRN AFTMEALHC PRN PO DYSPEPSIA 02/16/21 15:45 03/04/21 22:05 Magnesium Hydroxide (Milk Of Magnesia) 2,400 mg PRN QHS PRN PO 1ST CHOICE CONSTIPATION 02/16/21 15:45 03/04/21 09:21 DC Acetaminophen (Tylenol) 1,000 mg Q6HRS PRN PO pain or fever 02/16/21 17:00 02/16/21 17:35 DC Acetaminophen (Tylenol) 500 mg Q4HRS PRN PO MILD PAIN 1-3 02/16/21 17:00 02/16/21 17:36 DC Bisacodyl (Dulcolax Tab) 5 mg PRN DAILY PRN PO 2ND CHOICE CONSTIPATION 02/16/21 17:00 03/04/21 09:21 DC Vitamin D (Vitamin D3) 50,000 unit WEEKLY PO 02/22/21 09:00 03/04/21 09:21 DC 02/22/21 07:16 Clonazepam (KlonoPIN) 0.5 mg BID PO 02/16/21 21:00 02/27/21 19:54 DC 02/27/21 10:11 Dicyclomine HCl (Bentyl) 20 mg TID PO 02/16/21 21:00 03/04/21 09:21 DC 03/03/21 21:07 Diphenoxylate HCl/ Atropine (Lomotil) 2 tab BID PO 02/16/21 21:00 03/04/21 09:21 DC 03/03/21 21:08 Divalproex Sodium (Depakote Er) 1,000 mg HS PO 02/16/21 21:00 03/07/21 20:15 DC 03/04/21 21:43 Duloxetine HCl (Cymbalta) 30 mg BID PO 02/16/21 21:00 03/07/21 20:15 DC 03/06/21 08:14 Fluticasone Propionate (Flonase) 2 spray DAILY NS 02/17/21 09:00 03/15/21 08:23 Furosemide (Lasix) 20 mg DAILY PO 02/17/21 09:00 03/04/21 09:21 DC 03/03/21 08:32 Gabapentin (Neurontin) 300 mg QID PO 02/16/21 17:00 03/15/21 20:14 Hydroxyurea (Hydrea) 1,000 mg DAILY PO 02/17/21 09:00 03/15/21 08:23 Levetiracetam (Keppra) 250 mg BID PO 02/16/21 21:00 03/02/21 14:48 DC 03/02/21 09:54 Lidocaine (Lidoderm) 1 patch DAILY TP 02/17/21 09:00 02/17/21 09:24 DC Al Hydroxide/Mg Hydroxide (Mylanta Plus Xs) 15 ml PRN AFTMEALHC PRN PO DYSPEPSIA 02/16/21 17:00 02/16/21 17:36 DC Mirabegron (Myrbetriq) 50 mg DAILY PO 02/17/21 09:00 03/04/21 09:21 DC 03/03/21 08:30 Nystatin (Nystop) 1 debra BID TP 02/16/21 21:00 03/15/21 20:16 Pantoprazole Sodium (Protonix) 40 mg DAILYAC PO 02/17/21 07:30 03/15/21 08:20 Potassium Chloride (Klor-Con) 40 meq DAILY PO 02/17/21 09:00 03/04/21 09:21 DC 03/03/21 08:32 Sulfasalazine (Azulfidine) 500 mg TID PO 02/16/21 21:00 03/07/21 20:15 DC 03/06/21 13:05 Trazodone HCl (Desyrel) 50 mg QHS PO 02/16/21 21:00 03/15/21 20:15 Non-Formulary Medication (Albuterol Sulfate (Albuterol Sulfate Conc Neb Soln)) 1 vial PRN Q4HRS PRN NEB SHORTNESS OF BREATH 02/16/21 17:00 02/16/21 17:49 DC Ascorbic Acid (Vitamin C) 1,000 mg DAILY PO 02/17/21 09:00 03/04/21 09:21 DC 03/03/21 08:34 Diltiazem HCl (Cardizem) 60 mg BID PO 02/16/21 21:00 03/15/21 20:15 Lactobacillus Rhamnosus (Culturelle) 1 cap DAILY PO 02/17/21 09:00 03/04/21 09:21 DC 03/03/21 08:32 Amylase/Lipase/ Protease (Zenpep 10,000) 1 cap TIDBFRMEAL PO 02/17/21 07:30 03/15/21 17:15 Non-Formulary Medication (Magnesium Hydroxide (Milk Of Magnesia)) 2,400 mg PRN DAILY PRN PO CONSTIPATION 02/16/21 17:00 02/16/21 17:37 DC Magnesium Oxide (Magnesium Oxide) 400 mg DAILY PO 02/17/21 09:00 03/04/21 09:21 DC 03/03/21 08:31 Non-Formulary Medication (Methyl Salicylate/ Menthol (Analgesic [place])) 1 debra PRN Q6HRS PRN TP MUSCLE PAIN 02/16/21 17:00 02/16/21 17:37 DC Non-Formulary Medication (Umeclidinium [place] (Incruse Ellipta)) 62.5 mcg DAILY IH 02/17/21 09:00 02/16/21 17:49 DC Non-Formulary Medication (Zinc Gluconate ) 50 mg DAILY PO 02/17/21 09:00 02/16/21 17:46 DC Albuterol/ Ipratropium (Duoneb) 3 ml RTQID NEB 02/16/21 20:00 02/17/21 19:52 DC Albuterol Sulfate (Ventolin) 2.5 mg PRN Q4HRS PRN NEB SHORTNESS OF BREATH 02/16/21 18:00 Influenza Virus Vaccine Quadrival (Flulaval Quad [id number] Syringe) 0.5 ml ONCE ONCE VAX IM 02/17/21 09:00 02/17/21 09:01 DC 02/17/21 09:21 Lidocaine (Lidoderm) 1 patch DAILY PRN TP pain 02/17/21 09:30 02/27/21 10:11 Albuterol/ Ipratropium (Combivent Respimat 20-100 Mcg) 1 puff RTQID INH 02/17/21 20:00 03/15/21 20:16 Sertraline HCl (Zoloft) 25 mg DAILY PO 02/22/21 09:00 02/24/21 10:00 DC 02/24/21 09:59 Sertraline HCl (Zoloft) 50 mg DAILY PO 02/25/21 09:00 03/01/21 18:30 DC 10/20/21 10:07 Olanzapine (ZyPREXA ZYDIS) 5 mg 1X ONCE PO 02/26/21 12:03 02/26/21 12:09 DC 02/26/21 12:25 Clonazepam (KlonoPIN) 0.5 mg DAILY PO 02/28/21 09:00 03/02/21 07:00 DC 03/01/21 10:07 Bupropion HCl (Wellbutrin Xl) 150 mg DAILY PO 03/02/21 09:00 03/08/21 15:46 DC 03/08/21 08:41 Levetiracetam (Keppra) 250 mg DAILY PO 03/03/21 09:00 03/15/21 08:21 Aripiprazole (Abilify) 5 mg DAILY PO 03/05/21 09:00 03/15/21 08:21 Ondansetron HCl (Zofran Odt) 4 mg PRN Q4HRS PRN PO NAUSEA/VOMITING 03/06/21 19:30 03/06/21 19:46 Potassium Chloride (Klor-Con) 30 meq BID PO 03/07/21 09:00 03/15/21 20:16 Divalproex Sodium (Depakote Er) 1,000 mg 1700 PO 03/08/21 17:00 03/12/21 00:01 DC 03/11/21 17:27 Duloxetine HCl (Cymbalta) 30 mg 0900,1700 PO 03/08/21 17:00 03/15/21 17:15 Sulfasalazine (Azulfidine) 500 mg 0900,1300,1700 PO 03/08/21 09:00 03/15/21 17:15 Bupropion HCl (Wellbutrin Xl) 300 mg DAILY PO 03/09/21 09:00 03/15/21 08:21 Potassium Chloride (Klor-Con) 40 meq 1630,1730 PO 03/08/21 16:30 03/08/21 18:04 DC 03/08/21 16:57 Potassium Chloride (Klor-Con) 40 meq 1700,1800 PO 03/08/21 17:15 03/08/21 18:04 DC 03/08/21 17:56 Divalproex Sodium (Depakote Sprinkles) 500 mg BID PO 03/12/21 09:00 03/15/21 20:15 I have reviewed the current psychotropics carefully including drug interactions. Risk benefit ratio favors no change other than as noted in my dictated progress note. Diagnosis: Problems: (1) Impulse control disorder, unspecified (2) Mild cognitive impairment (3) Anxiety disorder, unspecified (4) Bipolar affective, depress, sev w/ psych NITHIN STEVENS MD Mar 15, 2021 21:49
--- NOTE | 2021-03-15 21:49 | PDOC ---
Exam Note: Napoleon Note: Please also refer to the separate dictated note~for this date of service dictated separately.~Patient seen individually. Discussed the patient with Nursing staff reviewed the chart.~Reviewed interim history and current functioning. Reviewed vital signs,~Labs/ Radiology~and current medications noted below. Continue current treatment with the changes noted in the dictated addendum note Assessment: Vital Signs/I&O: Vital Signs Date Time Temp Pulse Resp B/P (MAP) Pulse Ox O2 Delivery O2 Flow Rate FiO2 03/15/21 20:15 92 110/68 03/15/21 15:34 98.4 18 97 3.0 03/14/21 05:38 Nasal Cannula I & O 0 03/14/21 03/14/21 03/15/21 15:00 23:00 07:00 Intake Total 840 ml 500 ml Balance 840 ml 500 ml Current Medications: Meds: Current Medications Medications (Trade) Dose Ordered Sig/Mya Route PRN Reason Start Time Stop Time Status Last Admin Dose Admin Acetaminophen (Tylenol) 650 mg PRN Q6HRS PRN PO MILD PAIN / TEMP > 100.3'F 02/16/21 15:45 03/04/21 09:21 DC 02/18/21 06:31 Multi-Ingredient Ointment (Analgesic [place]) 1 debra PRN QID PRN TP MUSCLE PAIN 02/16/21 15:45 03/04/21 09:21 DC Al Hydroxide/Mg Hydroxide (Mylanta Plus Xs) 15 ml PRN AFTMEALHC PRN PO DYSPEPSIA 02/16/21 15:45 03/04/21 22:05 Magnesium Hydroxide (Milk Of Magnesia) 2,400 mg PRN QHS PRN PO 1ST CHOICE CONSTIPATION 02/16/21 15:45 03/04/21 09:21 DC Acetaminophen (Tylenol) 1,000 mg Q6HRS PRN PO pain or fever 02/16/21 17:00 02/16/21 17:35 DC Acetaminophen (Tylenol) 500 mg Q4HRS PRN PO MILD PAIN 1-3 02/16/21 17:00 02/16/21 17:36 DC Bisacodyl (Dulcolax Tab) 5 mg PRN DAILY PRN PO 2ND CHOICE CONSTIPATION 02/16/21 17:00 03/04/21 09:21 DC Vitamin D (Vitamin D3) 50,000 unit WEEKLY PO 02/22/21 09:00 03/04/21 09:21 DC 02/22/21 07:16 Clonazepam (KlonoPIN) 0.5 mg BID PO 02/16/21 21:00 02/27/21 19:54 DC 02/27/21 10:11 Dicyclomine HCl (Bentyl) 20 mg TID PO 02/16/21 21:00 03/04/21 09:21 DC 03/03/21 21:07 Diphenoxylate HCl/ Atropine (Lomotil) 2 tab BID PO 02/16/21 21:00 03/04/21 09:21 DC 03/03/21 21:08 Divalproex Sodium (Depakote Er) 1,000 mg HS PO 02/16/21 21:00 03/07/21 20:15 DC 03/04/21 21:43 Duloxetine HCl (Cymbalta) 30 mg BID PO 02/16/21 21:00 03/07/21 20:15 DC 03/06/21 08:14 Fluticasone Propionate (Flonase) 2 spray DAILY NS 02/17/21 09:00 03/15/21 08:23 Furosemide (Lasix) 20 mg DAILY PO 02/17/21 09:00 03/04/21 09:21 DC 03/03/21 08:32 Gabapentin (Neurontin) 300 mg QID PO 02/16/21 17:00 03/15/21 20:14 Hydroxyurea (Hydrea) 1,000 mg DAILY PO 02/17/21 09:00 03/15/21 08:23 Levetiracetam (Keppra) 250 mg BID PO 02/16/21 21:00 03/02/21 14:48 DC 03/02/21 09:54 Lidocaine (Lidoderm) 1 patch DAILY TP 02/17/21 09:00 02/17/21 09:24 DC Al Hydroxide/Mg Hydroxide (Mylanta Plus Xs) 15 ml PRN AFTMEALHC PRN PO DYSPEPSIA 02/16/21 17:00 02/16/21 17:36 DC Mirabegron (Myrbetriq) 50 mg DAILY PO 02/17/21 09:00 03/04/21 09:21 DC 03/03/21 08:30 Nystatin (Nystop) 1 debra BID TP 02/16/21 21:00 03/15/21 20:16 Pantoprazole Sodium (Protonix) 40 mg DAILYAC PO 02/17/21 07:30 03/15/21 08:20 Potassium Chloride (Klor-Con) 40 meq DAILY PO 02/17/21 09:00 03/04/21 09:21 DC 03/03/21 08:32 Sulfasalazine (Azulfidine) 500 mg TID PO 02/16/21 21:00 03/07/21 20:15 DC 03/06/21 13:05 Trazodone HCl (Desyrel) 50 mg QHS PO 02/16/21 21:00 03/15/21 20:15 Non-Formulary Medication (Albuterol Sulfate (Albuterol Sulfate Conc Neb Soln)) 1 vial PRN Q4HRS PRN NEB SHORTNESS OF BREATH 02/16/21 17:00 02/16/21 17:49 DC Ascorbic Acid (Vitamin C) 1,000 mg DAILY PO 02/17/21 09:00 03/04/21 09:21 DC 03/03/21 08:34 Diltiazem HCl (Cardizem) 60 mg BID PO 02/16/21 21:00 03/15/21 20:15 Lactobacillus Rhamnosus (Culturelle) 1 cap DAILY PO 02/17/21 09:00 03/04/21 09:21 DC 03/03/21 08:32 Amylase/Lipase/ Protease (Zenpep 10,000) 1 cap TIDBFRMEAL PO 02/17/21 07:30 03/15/21 17:15 Non-Formulary Medication (Magnesium Hydroxide (Milk Of Magnesia)) 2,400 mg PRN DAILY PRN PO CONSTIPATION 02/16/21 17:00 02/16/21 17:37 DC Magnesium Oxide (Magnesium Oxide) 400 mg DAILY PO 02/17/21 09:00 03/04/21 09:21 DC 03/03/21 08:31 Non-Formulary Medication (Methyl Salicylate/ Menthol (Analgesic [place])) 1 debra PRN Q6HRS PRN TP MUSCLE PAIN 02/16/21 17:00 02/16/21 17:37 DC Non-Formulary Medication (Umeclidinium [place] (Incruse Ellipta)) 62.5 mcg DAILY IH 02/17/21 09:00 02/16/21 17:49 DC Non-Formulary Medication (Zinc Gluconate ) 50 mg DAILY PO 02/17/21 09:00 02/16/21 17:46 DC Albuterol/ Ipratropium (Duoneb) 3 ml RTQID NEB 02/16/21 20:00 02/17/21 19:52 DC Albuterol Sulfate (Ventolin) 2.5 mg PRN Q4HRS PRN NEB SHORTNESS OF BREATH 02/16/21 18:00 Influenza Virus Vaccine Quadrival (Flulaval Quad [id number] Syringe) 0.5 ml ONCE ONCE VAX IM 02/17/21 09:00 02/17/21 09:01 DC 02/17/21 09:21 Lidocaine (Lidoderm) 1 patch DAILY PRN TP pain 02/17/21 09:30 02/27/21 10:11 Albuterol/ Ipratropium (Combivent Respimat 20-100 Mcg) 1 puff RTQID INH 02/17/21 20:00 03/15/21 20:16 Sertraline HCl (Zoloft) 25 mg DAILY PO 02/22/21 09:00 02/24/21 10:00 DC 02/24/21 09:59 Sertraline HCl (Zoloft) 50 mg DAILY PO 02/25/21 09:00 03/01/21 18:30 DC 03/01/21 10:07 Olanzapine (ZyPREXA ZYDIS) 5 mg 1X ONCE PO 02/26/21 12:03 02/26/21 12:09 DC 02/26/21 12:25 Clonazepam (KlonoPIN) 0.5 mg DAILY PO 02/28/21 09:00 03/02/21 07:00 DC 03/01/21 10:07 Bupropion HCl (Wellbutrin Xl) 150 mg DAILY PO 03/02/21 09:00 03/08/21 15:46 DC 03/08/21 08:41 Levetiracetam (Keppra) 250 mg DAILY PO 03/03/21 09:00 03/15/21 08:21 Aripiprazole (Abilify) 5 mg DAILY PO 03/05/21 09:00 03/15/21 08:21 Ondansetron HCl (Zofran Odt) 4 mg PRN Q4HRS PRN PO NAUSEA/VOMITING 03/06/21 19:30 03/06/21 19:46 Potassium Chloride (Klor-Con) 30 meq BID PO 03/07/21 09:00 03/15/21 20:16 Divalproex Sodium (Depakote Er) 1,000 mg 1700 PO 03/08/21 17:00 03/12/21 00:01 DC 03/11/21 17:27 Duloxetine HCl (Cymbalta) 30 mg 0900,1700 PO 03/08/21 17:00 03/15/21 17:15 Sulfasalazine (Azulfidine) 500 mg 0900,1300,1700 PO 03/08/21 09:00 03/15/21 17:15 Bupropion HCl (Wellbutrin Xl) 300 mg DAILY PO 03/09/21 09:00 03/15/21 08:21 Potassium Chloride (Klor-Con) 40 meq 1630,1730 PO 03/08/21 16:30 03/08/21 18:04 DC 03/08/21 16:57 Potassium Chloride (Klor-Con) 40 meq 1700,1800 PO 03/08/21 17:15 03/08/21 18:04 DC 03/08/21 17:56 Divalproex Sodium (Depakote Sprinkles) 500 mg BID PO 03/12/21 09:00 03/15/21 20:15 I have reviewed the current psychotropics carefully including drug interactions. Risk benefit ratio favors no change other than as noted in my dictated progress note. Diagnosis: Problems: (1) Impulse control disorder, unspecified (2) Mild cognitive impairment (3) Anxiety disorder, unspecified (4) Bipolar affective, depress, sev w/ psych NITHIN STEVENS MD Mar 15, 2021 21:49
--- NOTE | 2021-03-15 22:59 | NUR ---
Nursing Note Pt in bed and asleep during assessment. Awakens to voice takes meds floated in applesauce denies complaints. Calm and cooperative.
[2021-03-16 06:20] VITALS: BP 111/70
[2021-03-16 06:30] LABS: BASO # 0.1 x10^3/uL (0.0-0.2); BASO % 1 % (0-3); EOS # 0.1 x10^3/uL (0.0-0.7); EOS % 1 % (0-3); HEMATOCRIT 35.4 % (36.0-47.0); HEMOGLOBIN 11.8 g/dL (12.0-15.5); LYMPH # 0.9 x10^3/uL (1.0-4.8); LYMPH % 13 % (24-48); MEAN CORPUSCULAR HEMOGLOBIN 36 pg (25-35); MEAN CORPUSCULAR HGB CONC 33 g/dL (31-37); MEAN CORPUSCULAR VOLUME 108 fL (79-100); MONO # 0.6 x10^3/uL (0.0-1.1); MONO % 8 % (0-9); NEUT # 5.5 x10^3uL (1.8-7.7); NEUT % 76 % (31-73); PLATELET COUNT 250 x10^3/uL (140-400); RED BLOOD COUNT 3.27 x10^6/uL (3.50-5.40); RED CELL DISTRIBUTION WIDTH 16.3 % (11.5-14.5); WHITE BLOOD COUNT 7.2 x10^3/uL (4.0-11.0)
[2021-03-16 06:38] LABS: ALBUMIN 2.4 g/dL (3.4-5.0); ALBUMIN/GLOBULIN RATIO 0.6 (1.0-1.7); CREATININE 0.5 mg/dL (0.6-1.0); GFR 122.3; POTASSIUM 4.2 mmol/L (3.5-5.1); TOTAL BILIRUBIN 0.4 mg/dL (0.2-1.0); TOTAL PROTEIN 6.2 g/dL (6.4-8.2)
[2021-03-16 06:46] LABS: VAL ACID 57 mcg/mL (50-100)
[2021-03-16] MEDS: IPRATROPIUM/ALBUTEROL 20/100mcg/INH INHALER. INH SCH ×4 (08:00→19:51)
[2021-03-16] MEDS: GABAPENTIN 300 MG CAPSULE. PO SCH ×4 (08:42→19:52)
[2021-03-16] MEDS: buPROPion XL 300 MG TAB.ER.24H. PO SCH (08:42)
[2021-03-16] MEDS: PANTOPRAZOLE 40 MG TABLET. PO SCH (08:42)
[2021-03-16] MEDS: dilTIAZem HCL 30 MG TABLET PO SCH ×2 (08:42→19:52)
[2021-03-16] MEDS: sulfaSALAzine 500 MG TABLET PO SCH ×3 (08:42→16:59)
[2021-03-16] MEDS: ARIPiprazole 5 MG TABLET PO SCH (08:43)
[2021-03-16] MEDS: DULoxetine HCL 30 MG CAPSULE.DR PO SCH ×2 (08:43→16:59)
[2021-03-16] MEDS: POTASSIUM CHLORIDE 10 MEQ TABLET.ER. PO SCH ×2 (08:43→19:52)
[2021-03-16] MEDS: levETIRAcetam 250 MG TABLET PO SCH (08:43)
[2021-03-16] MEDS: LIPASE/PROTEAS/AMYLAS 10/32/42 CAPSULE.DR. PO SCH ×3 (08:43→16:59)
[2021-03-16] MEDS: DIVALPROEX 125 MG CAP.SPRINK PO SCH ×2 (08:43→19:52)
[2021-03-16] MEDS: FLUTICASONE 50MCG/NASAL SPRAY 16GM BOTTLE. NS SCH (08:44)
[2021-03-16] MEDS: NYSTATIN TOPICAL POWDER 15GM BOTTLE. TP SCH ×2 (08:44→19:53)
[2021-03-16] MEDS: HYDROXYUREA 500 MG CAPSULE PO SCH (08:46)
--- NOTE | 2021-03-16 11:31 | NUR ---
WEEKLY ACTIVITY THERAPY NOTE Date of Admission:02/16/21 Date of AT Assessment: 02/17 Precipitating behaviors that initiated intake and admission:putting self on floor, combative towards staff, refusing O2, threw medications, expresses she wants to & removes O2 Goal aimed: increase socialization and engagement Initial Goal: Pt will participate in at least three individual or group Activity Therapy sessions per week Weekly progress towards goal: achieved, / Group participation level: 3 min, 1 full Weekly highlights: listened to guided meditation Saturday, answered a few sentence starter questions Saturday Behaviors observed: sleeping, easily distracted by peers, rubbing a male peers hand Saturday Plan: no change to goal Beneficial adaptations: encouragement, moderate assistance
--- NOTE | 2021-03-16 12:35 | NUR ---
Treatment team update: Pt is eating 75% of meals and sleeping on average 7.5 hours per night. Pt is medication compliant and mostly cooperative with cares. Pt does continue to have intermittent periods of taking her oxygen off which results in increased confusion. Pt can be withdrawn to her room and not very engaging in conversation. Pt has attended four groups with minimal participation; often appears flat and depressed. SW submitted multiple referrals for placement with all denials. Pt will have to return to her Longterm facility with [facility] services and the facility can aid in further finding placement for pt at that time. BOB for Saturday.
--- NOTE | 2021-03-16 12:52 | TX PLAN ---
Interdisciplinary Tx Plan Admission Information Feb 16, 2021 at 15:29 Legal Status (on Admission): Voluntary DPOA/Guardian Name: Patel Moise Contact Other Contact Name: Chasity Nazario Other Contact Verified Code Status: DNR Allergies: Coded Allergies: butorphanol (Verified Allergy, Unknown, 02/13/20) cefoxitin (Verified Allergy, Unknown, 02/13/20) codeine (Verified Allergy, Unknown, 02/13/20) gluten (Verified Allergy, Unknown, 02/13/20) lactose (Verified Allergy, Unknown, 02/13/20) Diagnoses Primary Diagnosis: Bipolar D/O mixed Reasons for Admission: Suicidal ideation, Poor impulse control Problem in Patient's Words: N/A Additional Admission Comments: According to the intake, pt is putting herself on the floor, combative towards staff, refusing oxygen/removes the tubing, throwing medications, expressed that she wants to . Problems Active Problems: putting self on floor removing oxygen Inactive Problems: medication compliant Pt Strengths/Limitations Ability for [place]: Poor Cognitive Functioning/Ability: Fair Communication Skills/Ability: Fair Financial Resources: Fair Insight/Judgement: Poor Intellectual Ability: Fair Physical Health: Poor Social Skills: Poor Stability in Family: Poor Stability in School/Work: Poor Verbal Skills: Fair Discharge Criteria Discharge Criteria: Able meet basic life need, Adequate arrangements @DC, Improved behavior, Improved mood/thought Preliminary Discharge Plan Preliminary DC Plan: Current Living Arrange. Special Precautions Fall Risk: Moderate Initial D/C Plan Pt will return to [facility] once stable Identified Discharge Needs: None noted Currently Utilized Resources Currently Utilized Resources/P: Primary Care Physician Telehealth for psychiatry Referrals Community Resources: None Identified Problems/Hx/Goals Objectives/Short-Term Goals Short Term Goals: Dec. Outbursts, Medication Stabilization, Monitor Med Effects, Promote Coping Skill Short Term Goals in Patient's: N/A Interventions/Frequency Staff Interventions/Frequency&: Psychiatrist to assess pt at least 3x per week for medication management. Social Work to assess pt least 2x per week to identify barriers to care and discharge planning goals. Nursing to assess pt medication effect, behavior modification and complete 15 minute checks daily. Encourage participation in group activities (if applicable) or 1:1 engagement based off Activity Dept goals. 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 Education: Pt graduated high school in 1969 Community Follow-up Primary Care Physician Telehealth Treatment Plan Explained Patient/[employer] Supervisor had this treatment plan explained to him/her as indicated by the signature below and has been given the opportunity to ask questions and make suggestions: Date: Patient/[employer] Supervisor Signature: Status Update Update Treatment team update: Pt is eating 75% of meals and sleeping on average 7.5 hours per night. Pt is medication compliant and mostly cooperative with cares. Pt does continue to have intermittent periods of taking her oxygen off which results in increased confusion. Pt can be withdrawn to her room and not very engaging in conversation. Pt has attended four groups with minimal participation; often appears flat and depressed. SW submitted multiple referrals for placement with all denials. Pt will have to return to her [facility] facility with [facility] and the facility can aid in further finding placement for pt at that time. BOB for Saturday. OK BAUTISTA Mar 16, 2021 12:52
[2021-03-16 15:54] VITALS: BP 129/79
--- NOTE | 2021-03-16 17:29 | NUR ---
Nsg Note; Brigitte has been more awake and alert today, engaging in a bit of small talk with staff. She is eating more with the pureed diet. She is very resistant with crushed meds because of the taste. At dinner, she was able to swallow the meds whole while floated in a bite of mashed potatoes and followed by a drink. She does tend to isolate in her room but did come to the dayroom briefly this am
[2021-03-16] MEDS: traZODone 50 MG TABLET. PO SCH (19:51)
--- NOTE | 2021-03-16 22:04 | PDOC ---
Exam Note: Napoleon Note: Please also refer to the separate dictated note~for this date of service dictated separately.~Patient seen individually. Discussed the patient with Nursing staff reviewed the chart.~Reviewed interim history and current functioning. Reviewed vital signs,~Labs/ Radiology~and current medications noted below. Continue current treatment with the changes noted in the dictated addendum note Assessment: Vital Signs/I&O: Vital Signs Date Time Temp Pulse Resp B/P (MAP) Pulse Ox O2 Delivery O2 Flow Rate FiO2 03/16/21 19:52 92 129/79 03/16/21 15:54 98.2 19 94 03/16/21 06:20 2.0 03/14/21 05:38 Nasal Cannula I & O 03/15/21 03/15/21 03/16/21 15:00 23:00 07:00 Intake Total 360 ml 680 ml Balance 360 ml 680 ml Labs: Laboratory Tests Test 03/16/21 06:00 03/16/21 06:02 SARS-CoV-2 (PCR) Not detected (NOT DETECTD) White Blood Count 7.2 x10^3/uL (4.0-11.0) Red Blood Count 3.27 x10^6/uL (3.50-5.40) L Hemoglobin 11.8 g/dL (12.0-15.5) L Hematocrit 35.4 % (36.0-47.0) L Mean Corpuscular Volume 108 fL (79-100) H Mean Corpuscular Hemoglobin 36 pg (25-35) H Mean Corpuscular Hemoglobin Concent 33 g/dL (31-37) Red Cell Distribution Width 16.3 % (11.5-14.5) H Platelet Count 250 x10^3/uL (140-400) Neutrophils (%) (Auto) 76 % (31-73) H Lymphocytes (%) (Auto) 13 % (24-48) L Monocytes (%) (Auto) 8 % (0-9) Eosinophils (%) (Auto) 1 % (0-3) Basophils (%) (Auto) 1 % (0-3) Neutrophils # (Auto) 5.5 x10^3uL (1.8-7.7) Lymphocytes # (Auto) 0.9 x10^3/uL (1.0-4.8) L Monocytes # (Auto) 0.6 x10^3/uL (0.0-1.1) Eosinophils # (Auto) 0.1 x10^3/uL (0.0-0.7) Basophils # (Auto) 0.1 x10^3/uL (0.0-0.2) Sodium Level 138 mmol/L (136-145) Potassium Level 4.2 mmol/L (3.5-5.1) Chloride Level 101 mmol/L (98-107) Carbon Dioxide Level 32 mmol/L (21-32) Anion Gap 5 (6-14) L Blood Urea Nitrogen 13 mg/dL (7-20) Creatinine 0.5 mg/dL (0.6-1.0) L Estimated GFR (Cockcroft-Gault) 122.3 BUN/Creatinine Ratio 26 (6-20) H Glucose Level 98 mg/dL (70-99) Calcium Level 9.0 mg/dL (8.5-10.1) Total Bilirubin 0.4 mg/dL (0.2-1.0) Aspartate Amino Transferase (AST) 11 U/L (15-37) L Alanine Aminotransferase (ALT) 12 U/L (14-59) L Alkaline Phosphatase 81 U/L (46-116) Ammonia 19 mcmol/L (11-34) Total Protein 6.2 g/dL (6.4-8.2) L Albumin 2.4 g/dL (3.4-5.0) L Albumin/Globulin Ratio 0.6 (1.0-1.7) L Valproic Acid Level 57 mcg/mL (50-100) Valproic Acid Last Dose Date 03/15/21 Valproic Acid Last Dose Time 2100 Current Medications: Meds: Laboratory Tests Test 03/16/21 06:00 03/16/21 06:02 Coronavirus (COVID-19)(PCR) Not detected White Blood Count 7.2 x10^3/uL Red Blood Count 3.27 x10^6/uL Hemoglobin 11.8 g/dL Hematocrit 35.4 % Mean Corpuscular Volume 108 fL Mean Corpuscular Hemoglobin 36 pg Mean Corpuscular Hemoglobin Concent 33 g/dL Red Cell Distribution Width 16.3 % Platelet Count 250 x10^3/uL Neutrophils (%) (Auto) 76 % Lymphocytes (%) (Auto) 13 % Monocytes (%) (Auto) 8 % Eosinophils (%) (Auto) 1 % Basophils (%) (Auto) 1 % Neutrophils # (Auto) 5.5 x10^3uL Lymphocytes # (Auto) 0.9 x10^3/uL Monocytes # (Auto) 0.6 x10^3/uL Eosinophils # (Auto) 0.1 x10^3/uL Basophils # (Auto) 0.1 x10^3/uL Sodium Level 138 mmol/L Potassium Level 4.2 mmol/L Chloride Level 101 mmol/L Carbon Dioxide Level 32 mmol/L Anion Gap 5 Blood Urea Nitrogen 13 mg/dL Creatinine 0.5 mg/dL Estimated GFR (Cockcroft-Gault) 122.3 BUN/Creatinine Ratio 26 Glucose Level 98 mg/dL Calcium Level 9.0 mg/dL Total Bilirubin 0.4 mg/dL Aspartate Amino Transf (AST/SGOT) 11 U/L Alanine Aminotransferase (ALT/SGPT) 12 U/L Alkaline Phosphatase 81 U/L Ammonia 19 mcmol/L Total Protein 6.2 g/dL Albumin 2.4 g/dL Albumin/Globulin Ratio 0.6 Valproic Acid (Depakene) Level 57 mcg/mL Valproic Acid Last Dose Date 03/15/21 Valproic Acid Last Dose Time 2100 Current Medications Medications (Trade) Dose Ordered Sig/Mya Route PRN Reason Start Time Stop Time Status Last Admin Dose Admin Acetaminophen (Tylenol) 650 mg PRN Q6HRS PRN PO MILD PAIN / TEMP > 100.3'F 02/16/21 15:45 03/04/21 09:21 DC 02/18/21 06:31 Multi-Ingredient Ointment (Analgesic [place]) 1 debra PRN QID PRN TP MUSCLE PAIN 02/16/21 15:45 03/04/21 09:21 DC Al Hydroxide/Mg Hydroxide (Mylanta Plus Xs) 15 ml PRN AFTMEALHC PRN PO DYSPEPSIA 02/16/21 15:45 03/04/21 22:05 Magnesium Hydroxide (Milk Of Magnesia) 2,400 mg PRN QHS PRN PO 1ST CHOICE CONSTIPATION 02/16/21 15:45 03/04/21 09:21 DC Acetaminophen (Tylenol) 1,000 mg Q6HRS PRN PO pain or fever 02/16/21 17:00 02/16/21 17:35 DC Acetaminophen (Tylenol) 500 mg Q4HRS PRN PO MILD PAIN 1-3 02/16/21 17:00 02/16/21 17:36 DC Bisacodyl (Dulcolax Tab) 5 mg PRN DAILY PRN PO 2ND CHOICE CONSTIPATION 02/16/21 17:00 03/04/21 09:21 DC Vitamin D (Vitamin D3) 50,000 unit WEEKLY PO 02/22/21 09:00 03/04/21 09:21 DC 02/22/21 07:16 Clonazepam (KlonoPIN) 0.5 mg BID PO 02/16/21 21:00 02/27/21 19:54 DC 02/27/21 10:11 Dicyclomine HCl (Bentyl) 20 mg TID PO 02/16/21 21:00 03/04/21 09:21 DC 03/03/21 21:07 Diphenoxylate HCl/ Atropine (Lomotil) 2 tab BID PO 02/16/21 21:00 03/04/21 09:21 DC 03/03/21 21:08 Divalproex Sodium (Depakote Er) 1,000 mg HS PO 02/16/21 21:00 03/07/21 20:15 DC 03/04/21 21:43 Duloxetine HCl (Cymbalta) 30 mg BID PO 02/16/21 21:00 03/07/21 20:15 DC 03/06/21 08:14 Fluticasone Propionate (Flonase) 2 spray DAILY NS 02/17/21 09:00 03/15/21 08:23 Furosemide (Lasix) 20 mg DAILY PO 02/17/21 09:00 03/04/21 09:21 DC 03/03/21 08:32 Gabapentin (Neurontin) 300 mg QID PO 02/16/21 17:00 03/16/21 19:52 Hydroxyurea (Hydrea) 1,000 mg DAILY PO 02/17/21 09:00 03/16/21 08:46 Levetiracetam (Keppra) 250 mg BID PO 02/16/21 21:00 03/02/21 14:48 DC 03/02/21 09:54 Lidocaine (Lidoderm) 1 patch DAILY TP 02/17/21 09:00 02/17/21 09:24 DC Al Hydroxide/Mg Hydroxide (Mylanta Plus Xs) 15 ml PRN AFTMEALHC PRN PO DYSPEPSIA 02/16/21 17:00 02/16/21 17:36 DC Mirabegron (Myrbetriq) 50 mg DAILY PO 02/17/21 09:00 03/04/21 09:21 DC 03/03/21 08:30 Nystatin (Nystop) 1 debra BID TP 02/16/21 21:00 03/16/21 19:53 Pantoprazole Sodium (Protonix) 40 mg DAILYAC PO 02/17/21 07:30 03/16/21 08:42 Potassium Chloride (Klor-Con) 40 meq DAILY PO 02/17/21 09:00 03/04/21 09:21 DC 03/03/21 08:32 Sulfasalazine (Azulfidine) 500 mg TID PO 02/16/21 21:00 03/07/21 20:15 DC 03/06/21 13:05 Trazodone HCl (Desyrel) 50 mg QHS PO 02/16/21 21:00 03/16/21 19:51 Non-Formulary Medication (Albuterol Sulfate (Albuterol Sulfate Conc Neb Soln)) 1 vial PRN Q4HRS PRN NEB SHORTNESS OF BREATH 02/16/21 17:00 02/16/21 17:49 DC Ascorbic Acid (Vitamin C) 1,000 mg DAILY PO 02/17/21 09:00 03/04/21 09:21 DC 03/03/21 08:34 Diltiazem HCl (Cardizem) 60 mg BID PO 02/16/21 21:00 03/16/21 19:52 Lactobacillus Rhamnosus (Culturelle) 1 cap DAILY PO 02/17/21 09:00 03/04/21 09:21 DC 03/03/21 08:32 Amylase/Lipase/ Protease (Zenpep 10,000) 1 cap TIDBFRMEAL PO 02/17/21 07:30 03/16/21 16:59 Non-Formulary Medication (Magnesium Hydroxide (Milk Of Magnesia)) 2,400 mg PRN DAILY PRN PO CONSTIPATION 02/16/21 17:00 02/16/21 17:37 DC Magnesium Oxide (Magnesium Oxide) 400 mg DAILY PO 02/17/21 09:00 03/04/21 09:21 DC 03/03/21 08:31 Non-Formulary Medication (Methyl Salicylate/ Menthol (Analgesic [place])) 1 debra PRN Q6HRS PRN TP MUSCLE PAIN 02/16/21 17:00 02/16/21 17:37 DC Non-Formulary Medication (Umeclidinium [place] (Incruse Ellipta)) 62.5 mcg DAILY IH 02/17/21 09:00 02/16/21 17:49 DC Non-Formulary Medication (Zinc Gluconate ) 50 mg DAILY PO 02/17/21 09:00 02/16/21 17:46 DC Albuterol/ Ipratropium (Duoneb) 3 ml RTQID NEB 02/16/21 20:00 02/17/21 19:52 DC Albuterol Sulfate (Ventolin) 2.5 mg PRN Q4HRS PRN NEB SHORTNESS OF BREATH 02/16/21 18:00 Influenza Virus Vaccine Quadrival (Flulaval Quad [id number] Syringe) 0.5 ml ONCE ONCE VAX IM 02/17/21 09:00 02/17/21 09:01 DC 02/17/21 09:21 Lidocaine (Lidoderm) 1 patch DAILY PRN TP pain 02/17/21 09:30 02/27/21 10:11 Albuterol/ Ipratropium (Combivent Respimat 20-100 Mcg) 1 puff RTQID INH 02/17/21 20:00 03/16/21 19:51 Sertraline HCl (Zoloft) 25 mg DAILY PO 02/22/21 09:00 02/24/21 10:00 DC 02/24/21 09:59 Sertraline HCl (Zoloft) 50 mg DAILY PO 02/25/21 09:00 03/01/21 18:30 DC 03/01/21 10:07 Olanzapine (ZyPREXA ZYDIS) 5 mg 1X ONCE PO 02/26/21 12:03 02/26/21 12:09 DC 02/26/21 12:25 Clonazepam (KlonoPIN) 0.5 mg DAILY PO 02/28/21 09:00 03/02/21 07:00 DC 03/01/21 10:07 Bupropion HCl (Wellbutrin Xl) 150 mg DAILY PO 03/02/21 09:00 03/08/21 15:46 DC 03/08/21 08:41 Levetiracetam (Keppra) 250 mg DAILY PO 03/03/21 09:00 03/16/21 08:43 Aripiprazole (Abilify) 5 mg DAILY PO 03/05/21 09:00 03/16/21 08:43 Ondansetron HCl (Zofran Odt) 4 mg PRN Q4HRS PRN PO NAUSEA/VOMITING 03/06/21 19:30 03/06/21 19:46 Potassium Chloride (Klor-Con) 30 meq BID PO 03/07/21 09:00 03/16/21 19:52 Divalproex Sodium (Depakote Er) 1,000 mg 1700 PO 03/08/21 17:00 03/12/21 00:01 DC 03/11/21 17:27 Duloxetine HCl (Cymbalta) 30 mg 0900,1700 PO 03/08/21 17:00 03/16/21 16:59 Sulfasalazine (Azulfidine) 500 mg 0900,1300,1700 PO 03/08/21 09:00 03/16/21 16:59 Bupropion HCl (Wellbutrin Xl) 300 mg DAILY PO 03/09/21 09:00 03/16/21 08:42 Potassium Chloride (Klor-Con) 40 meq 1630,1730 PO 03/08/21 16:30 03/08/21 18:04 DC 03/08/21 16:57 Potassium Chloride (Klor-Con) 40 meq 1700,1800 PO 03/08/21 17:15 03/08/21 18:04 DC 03/08/21 17:56 Divalproex Sodium (Depakote Sprinkles) 500 mg BID PO 03/12/21 09:00 03/16/21 19:52 I have reviewed the current psychotropics carefully including drug interactions. Risk benefit ratio favors no change other than as noted in my dictated progress note. Diagnosis: Problems: (1) Impulse control disorder, unspecified (2) Mild cognitive impairment (3) Anxiety disorder, unspecified (4) Bipolar affective, depress, sev w/ psych NITHIN STEVENS MD Mar 16, 2021 22:04
--- NOTE | 2021-03-16 22:31 | NUR ---
Nursing Note Pt in room during assessment up in chair, takes po meds but has difficulty with applesauce followed by water with whole meds floated. Will attempt crushing for next med pass. Pt talks in a whisper at times, looks around as if she is paranoid of peers. Cooperative and compliant with meds and assessment.
[2021-03-17 06:11] VITALS: BP 116/83
[2021-03-17] MEDS: IPRATROPIUM/ALBUTEROL 20/100mcg/INH INHALER. INH SCH ×4 (08:00→19:32)
[2021-03-17] MEDS: HYDROXYUREA 500 MG CAPSULE PO SCH (08:37)
[2021-03-17] MEDS: PANTOPRAZOLE 40 MG TABLET. PO SCH (08:38)
[2021-03-17] MEDS: dilTIAZem HCL 30 MG TABLET PO SCH ×2 (08:39→19:30)
[2021-03-17] MEDS: sulfaSALAzine 500 MG TABLET PO SCH ×3 (08:39→17:25)
[2021-03-17] MEDS: ARIPiprazole 5 MG TABLET PO SCH (08:39)
[2021-03-17] MEDS: buPROPion XL 300 MG TAB.ER.24H. PO SCH (08:39)
[2021-03-17] MEDS: LIPASE/PROTEAS/AMYLAS 10/32/42 CAPSULE.DR. PO SCH ×3 (08:39→17:12)
[2021-03-17] MEDS: DIVALPROEX 125 MG CAP.SPRINK PO SCH ×2 (08:40→19:30)
[2021-03-17] MEDS: GABAPENTIN 300 MG CAPSULE. PO SCH ×4 (08:40→19:31)
[2021-03-17] MEDS: levETIRAcetam 250 MG TABLET PO SCH (08:40)
[2021-03-17] MEDS: POTASSIUM CHLORIDE 10 MEQ TABLET.ER. PO SCH ×2 (08:40→19:30)
[2021-03-17] MEDS: DULoxetine HCL 30 MG CAPSULE.DR PO SCH ×2 (08:41→17:12)
[2021-03-17] MEDS: FLUTICASONE 50MCG/NASAL SPRAY 16GM BOTTLE. NS SCH (08:51)
[2021-03-17] MEDS: NYSTATIN TOPICAL POWDER 15GM BOTTLE. TP SCH ×2 (08:51→19:31)
--- NOTE | 2021-03-17 09:55 | PDOC ---
Exam Note: Napoleon Note: This note is a late entry for 03/15/2021 covers elements not covered in my initial note. Subjective: The patient was seen individually in the evening of 03/15/2021 with Cassie BARR, discussed and reviewed the chart. The patient slept 7 hours previous night. She has been somewhat drowsy. She seems to have declined somewhat since early this week per nursing report. She continues to be intermittently confused, removing her oxygen and then gets even more confused. I addressed this with her. Review of Systems: Ambulation impaired in wheelchair. Shortness of breath on O2 supplements. No CV, , eye, ENT system symptoms on review. Mental Status Exam: The patient is alert and oriented to herself and situation. Speech is low in rate and rhythm, low in volume, coherent. Abstraction fair. Computation impaired. Mood and affect is somewhat depressed, withdrawn. No suicidal or homicidal ideation. Laboratory Data: Reviewed. Impression: Bipolar disorder, depressed. Anxiety disorder unspecified. Impulse control disorder unspecified. Plan: Continue current psychotropics from initial note. Assessment: Vital Signs/I&O: Vital Signs Date Time Temp Pulse Resp B/P (MAP) Pulse Ox O2 Delivery O2 Flow Rate FiO2 03/17/21 08:39 98 116/83 03/17/21 06:11 97.0 18 95 03/16/21 06:20 2.0 03/14/21 05:38 Nasal Cannula I & O 03/16/21 03/16/21 03/17/21 15:00 23:00 07:00 Intake Total 590 ml 630 ml Balance 590 ml 630 ml Current Medications: Meds: Current Medications Medications (Trade) Dose Ordered Sig/Mya Route PRN Reason Start Time Stop Time Status Last Admin Dose Admin Acetaminophen (Tylenol) 650 mg PRN Q6HRS PRN PO MILD PAIN / TEMP > 100.3'F 02/16/21 15:45 03/04/21 09:21 DC 02/18/21 06:31 Multi-Ingredient Ointment (Analgesic [place]) 1 debra PRN QID PRN TP MUSCLE PAIN 02/16/21 15:45 03/04/21 09:21 DC Al Hydroxide/Mg Hydroxide (Mylanta Plus Xs) 15 ml PRN AFTMEALHC PRN PO DYSPEPSIA 02/16/21 15:45 03/04/21 22:05 Magnesium Hydroxide (Milk Of Magnesia) 2,400 mg PRN QHS PRN PO 1ST CHOICE CONSTIPATION 02/16/21 15:45 03/04/21 09:21 DC Acetaminophen (Tylenol) 1,000 mg Q6HRS PRN PO pain or fever 02/16/21 17:00 02/16/21 17:35 DC Acetaminophen (Tylenol) 500 mg Q4HRS PRN PO MILD PAIN 1-3 02/16/21 17:00 02/16/21 17:36 DC Bisacodyl (Dulcolax Tab) 5 mg PRN DAILY PRN PO 2ND CHOICE CONSTIPATION 02/16/21 17:00 03/04/21 09:21 DC Vitamin D (Vitamin D3) 50,000 unit WEEKLY PO 02/22/21 09:00 03/04/21 09:21 DC 02/22/21 07:16 Clonazepam (KlonoPIN) 0.5 mg BID PO 02/16/21 21:00 02/27/21 19:54 DC 02/27/21 10:11 Dicyclomine HCl (Bentyl) 20 mg TID PO 02/16/21 21:00 03/04/21 09:21 DC 03/03/21 21:07 Diphenoxylate HCl/ Atropine (Lomotil) 2 tab BID PO 02/16/21 21:00 03/04/21 09:21 DC 03/03/21 21:08 Divalproex Sodium (Depakote Er) 1,000 mg HS PO 02/16/21 21:00 03/07/21 20:15 DC 03/04/21 21:43 Duloxetine HCl (Cymbalta) 30 mg BID PO 02/16/21 21:00 03/07/21 20:15 DC 03/06/21 08:14 Fluticasone Propionate (Flonase) 2 spray DAILY NS 02/17/21 09:00 03/15/21 08:23 Furosemide (Lasix) 20 mg DAILY PO 02/17/21 09:00 03/04/21 09:21 DC 03/03/21 08:32 Gabapentin (Neurontin) 300 mg QID PO 02/16/21 17:00 03/17/21 08:40 Hydroxyurea (Hydrea) 1,000 mg DAILY PO 02/17/21 09:00 03/17/21 08:37 Levetiracetam (Keppra) 250 mg BID PO 02/16/21 21:00 03/02/21 14:48 DC 03/02/21 09:54 Lidocaine (Lidoderm) 1 patch DAILY TP 02/17/21 09:00 02/17/21 09:24 DC Al Hydroxide/Mg Hydroxide (Mylanta Plus Xs) 15 ml PRN AFTMEALHC PRN PO DYSPEPSIA 02/16/21 17:00 02/16/21 17:36 DC Mirabegron (Myrbetriq) 50 mg DAILY PO 02/17/21 09:00 03/04/21 09:21 DC 03/03/21 08:30 Nystatin (Nystop) 1 debra BID TP 02/16/21 21:00 03/17/21 08:51 Pantoprazole Sodium (Protonix) 40 mg DAILYAC PO 02/17/21 07:30 03/17/21 08:38 Potassium Chloride (Klor-Con) 40 meq DAILY PO 02/17/21 09:00 03/04/21 09:21 DC 03/03/21 08:32 Sulfasalazine (Azulfidine) 500 mg TID PO 02/16/21 21:00 03/07/21 20:15 DC 03/06/21 13:05 Trazodone HCl (Desyrel) 50 mg QHS PO 02/16/21 21:00 03/16/21 19:51 Non-Formulary Medication (Albuterol Sulfate (Albuterol Sulfate Conc Neb Soln)) 1 vial PRN Q4HRS PRN NEB SHORTNESS OF BREATH 02/16/21 17:00 02/16/21 17:49 DC Ascorbic Acid (Vitamin C) 1,000 mg DAILY PO 02/17/21 09:00 03/04/21 09:21 DC 03/03/21 08:34 Diltiazem HCl (Cardizem) 60 mg BID PO 02/16/21 21:00 03/17/21 08:39 Lactobacillus Rhamnosus (Culturelle) 1 cap DAILY PO 02/17/21 09:00 03/04/21 09:21 DC 03/03/21 08:32 Amylase/Lipase/ Protease (Zenpep 10,000) 1 cap TIDBFRMEAL PO 02/17/21 07:30 03/17/21 08:39 Non-Formulary Medication (Magnesium Hydroxide (Milk Of Magnesia)) 2,400 mg PRN DAILY PRN PO CONSTIPATION 02/16/21 17:00 02/16/21 17:37 DC Magnesium Oxide (Magnesium Oxide) 400 mg DAILY PO 02/17/21 09:00 03/04/21 09:21 DC 03/03/21 08:31 Non-Formulary Medication (Methyl Salicylate/ Menthol (Analgesic [place])) 1 debra PRN Q6HRS PRN TP MUSCLE PAIN 02/16/21 17:00 02/16/21 17:37 DC Non-Formulary Medication (Umeclidinium [place] (Incruse Ellipta)) 62.5 mcg DAILY IH 02/17/21 09:00 02/16/21 17:49 DC Non-Formulary Medication (Zinc Gluconate ) 50 mg DAILY PO 02/17/21 09:00 02/16/21 17:46 DC Albuterol/ Ipratropium (Duoneb) 3 ml RTQID NEB 02/16/21 20:00 02/17/21 19:52 DC Albuterol Sulfate (Ventolin) 2.5 mg PRN Q4HRS PRN NEB SHORTNESS OF BREATH 02/16/21 18:00 Influenza Virus Vaccine Quadrival (Flulaval Quad [id number] Syringe) 0.5 ml ONCE ONCE VAX IM 02/17/21 09:00 02/17/21 09:01 DC 02/17/21 09:21 Lidocaine (Lidoderm) 1 patch DAILY PRN TP pain 02/17/21 09:30 02/27/21 10:11 Albuterol/ Ipratropium (Combivent Respimat 20-100 Mcg) 1 puff RTQID INH 02/17/21 20:00 03/16/21 19:51 Sertraline HCl (Zoloft) 25 mg DAILY PO 02/22/21 09:00 02/24/21 10:00 DC 02/24/21 09:59 Sertraline HCl (Zoloft) 50 mg DAILY PO 02/25/21 09:00 03/01/21 18:30 DC 03/01/21 10:07 Olanzapine (ZyPREXA ZYDIS) 5 mg 1X ONCE PO 02/26/21 12:03 02/26/21 12:09 DC 02/26/21 12:25 Clonazepam (KlonoPIN) 0.5 mg DAILY PO 02/28/21 09:00 03/02/21 07:00 DC 03/01/21 10:07 Bupropion HCl (Wellbutrin Xl) 150 mg DAILY PO 03/02/21 09:00 03/08/21 15:46 DC 03/08/21 08:41 Levetiracetam (Keppra) 250 mg DAILY PO 03/03/21 09:00 03/17/21 08:40 Aripiprazole (Abilify) 5 mg DAILY PO 03/05/21 09:00 03/17/21 08:39 Ondansetron HCl (Zofran Odt) 4 mg PRN Q4HRS PRN PO NAUSEA/VOMITING 03/06/21 19:30 03/06/21 19:46 Potassium Chloride (Klor-Con) 30 meq BID PO 03/07/21 09:00 03/17/21 08:40 Divalproex Sodium (Depakote Er) 1,000 mg 1700 PO 03/08/21 17:00 03/12/21 00:01 DC 03/11/21 17:27 Duloxetine HCl (Cymbalta) 30 mg 0900,1700 PO 03/08/21 17:00 03/17/21 08:41 Sulfasalazine (Azulfidine) 500 mg 0900,1300,1700 PO 03/08/21 09:00 03/17/21 08:39 Bupropion HCl (Wellbutrin Xl) 300 mg DAILY PO 03/09/21 09:00 03/17/21 08:39 Potassium Chloride (Klor-Con) 40 meq 1630,1730 PO 03/08/21 16:30 03/08/21 18:04 DC 03/08/21 16:57 Potassium Chloride (Klor-Con) 40 meq 1700,1800 PO 03/08/21 17:15 03/08/21 18:04 DC 03/08/21 17:56 Divalproex Sodium (Depakote Sprinkles) 500 mg BID PO 03/12/21 09:00 03/17/21 08:40 I have reviewed the current psychotropics carefully including drug interactions. Risk benefit ratio favors no change other than as noted in my dictated progress note. Diagnosis: Problems: (1) Impulse control disorder, unspecified (2) Mild cognitive impairment (3) Anxiety disorder, unspecified (4) Bipolar affective, depress, sev w/ psych NITHIN STEVENS MD Mar 17, 2021 09:55
[2021-03-17 15:53] VITALS: BP 120/74
[2021-03-17] MEDS: traZODone 50 MG TABLET. PO SCH (19:30)
--- NOTE | 2021-03-17 21:02 | NUR ---
Nursing Note Pt up in the day room watching TV in her chair. Med compliant crushed in pudding. Pleasant and cooperative no behaviors.
--- NOTE | 2021-03-17 21:51 | PDOC ---
Exam Note: Napoleon Note: Please also refer to the separate dictated note~for this date of service dictated separately.~Patient seen individually. Discussed the patient with Nursing staff reviewed the chart.~Reviewed interim history and current functioning. Reviewed vital signs,~Labs/ Radiology~and current medications noted below. Continue current treatment with the changes noted in the dictated addendum note Assessment: Vital Signs/I&O: Vital Signs Date Time Temp Pulse Resp B/P (MAP) Pulse Ox O2 Delivery O2 Flow Rate FiO2 03/17/21 19:30 106 120/74 03/17/21 15:53 98.7 20 92 2.0 03/14/21 05:38 Nasal Cannula I & O 03/16/21 03/16/21 03/17/21 15:00 23:00 07:00 Intake Total 590 ml 630 ml Balance 590 ml 630 ml Current Medications: Meds: Current Medications Medications (Trade) Dose Ordered Sig/Mya Route PRN Reason Start Time Stop Time Status Last Admin Dose Admin Acetaminophen (Tylenol) 650 mg PRN Q6HRS PRN PO MILD PAIN / TEMP > 100.3'F 02/16/21 15:45 03/04/21 09:21 DC 02/18/21 06:31 Multi-Ingredient Ointment (Analgesic [place]) 1 debra PRN QID PRN TP MUSCLE PAIN 02/16/21 15:45 03/04/21 09:21 DC Al Hydroxide/Mg Hydroxide (Mylanta Plus Xs) 15 ml PRN AFTMEALHC PRN PO DYSPEPSIA 02/16/21 15:45 03/04/21 22:05 Magnesium Hydroxide (Milk Of Magnesia) 2,400 mg PRN QHS PRN PO 1ST CHOICE CONSTIPATION 02/16/21 15:45 03/04/21 09:21 DC Acetaminophen (Tylenol) 1,000 mg Q6HRS PRN PO pain or fever 02/16/21 17:00 02/16/21 17:35 DC Acetaminophen (Tylenol) 500 mg Q4HRS PRN PO MILD PAIN 1-3 02/16/21 17:00 02/16/21 17:36 DC Bisacodyl (Dulcolax Tab) 5 mg PRN DAILY PRN PO 2ND CHOICE CONSTIPATION 02/16/21 17:00 03/04/21 09:21 DC Vitamin D (Vitamin D3) 50,000 unit WEEKLY PO 02/22/21 09:00 03/04/21 09:21 DC 02/22/21 07:16 Clonazepam (KlonoPIN) 0.5 mg BID PO 02/16/21 21:00 02/27/21 19:54 DC 02/27/21 10:11 Dicyclomine HCl (Bentyl) 20 mg TID PO 02/16/21 21:00 03/04/21 09:21 DC 03/03/21 21:07 Diphenoxylate HCl/ Atropine (Lomotil) 2 tab BID PO 02/16/21 21:00 03/04/21 09:21 DC 03/03/21 21:08 Divalproex Sodium (Depakote Er) 1,000 mg HS PO 02/16/21 21:00 03/07/21 20:15 DC 03/04/21 21:43 Duloxetine HCl (Cymbalta) 30 mg BID PO 02/16/21 21:00 03/07/21 20:15 DC 03/06/21 08:14 Fluticasone Propionate (Flonase) 2 spray DAILY NS 02/17/21 09:00 03/15/21 08:23 Furosemide (Lasix) 20 mg DAILY PO 02/17/21 09:00 03/04/21 09:21 DC 03/03/21 08:32 Gabapentin (Neurontin) 300 mg QID PO 02/16/21 17:00 03/17/21 19:31 Hydroxyurea (Hydrea) 1,000 mg DAILY PO 02/17/21 09:00 03/17/21 08:37 Levetiracetam (Keppra) 250 mg BID PO 02/16/21 21:00 03/02/21 14:48 DC 03/02/21 09:54 Lidocaine (Lidoderm) 1 patch DAILY TP 02/17/21 09:00 02/17/21 09:24 DC Al Hydroxide/Mg Hydroxide (Mylanta Plus Xs) 15 ml PRN AFTMEALHC PRN PO DYSPEPSIA 02/16/21 17:00 02/16/21 17:36 DC Mirabegron (Myrbetriq) 50 mg DAILY PO 02/17/21 09:00 03/04/21 09:21 DC 03/03/21 08:30 Nystatin (Nystop) 1 debra BID TP 02/16/21 21:00 03/17/21 19:31 Pantoprazole Sodium (Protonix) 40 mg DAILYAC PO 02/17/21 07:30 03/17/21 08:38 Potassium Chloride (Klor-Con) 40 meq DAILY PO 02/17/21 09:00 03/04/21 09:21 DC 03/03/21 08:32 Sulfasalazine (Azulfidine) 500 mg TID PO 02/16/21 21:00 03/07/21 20:15 DC 03/06/21 13:05 Trazodone HCl (Desyrel) 50 mg QHS PO 02/16/21 21:00 03/17/21 19:30 Non-Formulary Medication (Albuterol Sulfate (Albuterol Sulfate Conc Neb Soln)) 1 vial PRN Q4HRS PRN NEB SHORTNESS OF BREATH 02/16/21 17:00 02/16/21 17:49 DC Ascorbic Acid (Vitamin C) 1,000 mg DAILY PO 02/17/21 09:00 03/04/21 09:21 DC 03/03/21 08:34 Diltiazem HCl (Cardizem) 60 mg BID PO 02/16/21 21:00 03/17/21 19:30 Lactobacillus Rhamnosus (Culturelle) 1 cap DAILY PO 02/17/21 09:00 03/04/21 09:21 DC 03/03/21 08:32 Amylase/Lipase/ Protease (Zenpep 10,000) 1 cap TIDBFRMEAL PO 02/17/21 07:30 03/17/21 17:12 Non-Formulary Medication (Magnesium Hydroxide (Milk Of Magnesia)) 2,400 mg PRN DAILY PRN PO CONSTIPATION 02/16/21 17:00 02/16/21 17:37 DC Magnesium Oxide (Magnesium Oxide) 400 mg DAILY PO 02/17/21 09:00 03/04/21 09:21 DC 03/03/21 08:31 Non-Formulary Medication (Methyl Salicylate/ Menthol (Analgesic [place])) 1 debra PRN Q6HRS PRN TP MUSCLE PAIN 02/16/21 17:00 02/16/21 17:37 DC Non-Formulary Medication (Umeclidinium [place] (Incruse Ellipta)) 62.5 mcg DAILY IH 02/17/21 09:00 02/16/21 17:49 DC Non-Formulary Medication (Zinc Gluconate ) 50 mg DAILY PO 02/17/21 09:00 02/16/21 17:46 DC Albuterol/ Ipratropium (Duoneb) 3 ml RTQID NEB 02/16/21 20:00 02/17/21 19:52 DC Albuterol Sulfate (Ventolin) 2.5 mg PRN Q4HRS PRN NEB SHORTNESS OF BREATH 02/16/21 18:00 Influenza Virus Vaccine Quadrival (Flulaval Quad [id number] Syringe) 0.5 ml ONCE ONCE VAX IM 02/17/21 09:00 02/17/21 09:01 DC 02/17/21 09:21 Lidocaine (Lidoderm) 1 patch DAILY PRN TP pain 02/17/21 09:30 02/27/21 10:11 Albuterol/ Ipratropium (Combivent Respimat 20-100 Mcg) 1 puff RTQID INH 02/17/21 20:00 03/17/21 19:32 Sertraline HCl (Zoloft) 25 mg DAILY PO 02/22/21 09:00 02/24/21 10:00 DC 02/24/21 09:59 Sertraline HCl (Zoloft) 50 mg DAILY PO 02/25/21 09:00 03/01/21 18:30 DC 03/01/21 10:07 Olanzapine (ZyPREXA ZYDIS) 5 mg 1X ONCE PO 02/26/21 12:03 02/26/21 12:09 DC 02/26/21 12:25 Clonazepam (KlonoPIN) 0.5 mg DAILY PO 02/28/21 09:00 03/02/21 07:00 DC 03/01/21 10:07 Bupropion HCl (Wellbutrin Xl) 150 mg DAILY PO 03/02/21 09:00 03/08/21 15:46 DC 03/08/21 08:41 Levetiracetam (Keppra) 250 mg DAILY PO 03/03/21 09:00 03/17/21 08:40 Aripiprazole (Abilify) 5 mg DAILY PO 03/05/21 09:00 03/17/21 08:39 Ondansetron HCl (Zofran Odt) 4 mg PRN Q4HRS PRN PO NAUSEA/VOMITING 03/06/21 19:30 03/06/21 19:46 Potassium Chloride (Klor-Con) 30 meq BID PO 03/07/21 09:00 03/17/21 19:30 Divalproex Sodium (Depakote Er) 1,000 mg 1700 PO 03/08/21 17:00 03/12/21 00:01 DC 03/11/21 17:27 Duloxetine HCl (Cymbalta) 30 mg 0900,1700 PO 03/08/21 17:00 03/17/21 17:12 Sulfasalazine (Azulfidine) 500 mg 0900,1300,1700 PO 03/08/21 09:00 03/17/21 17:25 Bupropion HCl (Wellbutrin Xl) 300 mg DAILY PO 03/09/21 09:00 03/17/21 08:39 Potassium Chloride (Klor-Con) 40 meq 1630,1730 PO 03/08/21 16:30 03/08/21 18:04 DC 03/08/21 16:57 Potassium Chloride (Klor-Con) 40 meq 1700,1800 PO 03/08/21 17:15 03/08/21 18:04 DC 03/08/21 17:56 Divalproex Sodium (Depakote Sprinkles) 500 mg BID PO 03/12/21 09:00 03/17/21 19:30 I have reviewed the current psychotropics carefully including drug interactions. Risk benefit ratio favors no change other than as noted in my dictated progress note. Diagnosis: Problems: (1) Impulse control disorder, unspecified (2) Mild cognitive impairment (3) Anxiety disorder, unspecified (4) Bipolar affective, depress, sev w/ psych NITHIN STEVENS MD Mar 17, 2021 21:51
[2021-03-18 05:53] VITALS: BP 110/71
[2021-03-18] MEDS: NYSTATIN TOPICAL POWDER 15GM BOTTLE. TP SCH ×2 (09:00→19:57)
[2021-03-18] MEDS: buPROPion XL 300 MG TAB.ER.24H. PO SCH (09:18)
[2021-03-18] MEDS: PANTOPRAZOLE 40 MG TABLET. PO SCH (09:18)
[2021-03-18] MEDS: LIPASE/PROTEAS/AMYLAS 10/32/42 CAPSULE.DR. PO SCH ×3 (09:18→16:30)
[2021-03-18] MEDS: POTASSIUM CHLORIDE 10 MEQ TABLET.ER. PO SCH ×2 (09:18→19:56)
[2021-03-18] MEDS: ARIPiprazole 5 MG TABLET PO SCH (09:18)
[2021-03-18] MEDS: DIVALPROEX 125 MG CAP.SPRINK PO SCH ×2 (09:18→19:56)
[2021-03-18] MEDS: DULoxetine HCL 30 MG CAPSULE.DR PO SCH ×2 (09:18→17:00)
[2021-03-18] MEDS: GABAPENTIN 300 MG CAPSULE. PO SCH ×4 (09:19→19:56)
[2021-03-18] MEDS: dilTIAZem HCL 30 MG TABLET PO SCH ×2 (09:19→19:56)
[2021-03-18] MEDS: sulfaSALAzine 500 MG TABLET PO SCH ×3 (09:21→17:00)
[2021-03-18] MEDS: FLUTICASONE 50MCG/NASAL SPRAY 16GM BOTTLE. NS SCH (09:21)
[2021-03-18] MEDS: IPRATROPIUM/ALBUTEROL 20/100mcg/INH INHALER. INH SCH ×4 (09:26→19:56)
[2021-03-18] MEDS: HYDROXYUREA 500 MG CAPSULE PO SCH (09:29)
[2021-03-18] MEDS: levETIRAcetam 250 MG TABLET PO SCH (09:37)
[2021-03-18 15:23] VITALS: BP 104/67
--- NOTE | 2021-03-18 17:19 | NUR ---
Pt up in [place] for meals. Has been quiet and withdrawn. Compliant with meds and cares.
[2021-03-18] MEDS: traZODone 50 MG TABLET. PO SCH (19:56)
[2021-03-18] MEDS: CLOTRIMAZOLE 1% VAGINAL CREAM 45GM TUBE. VG SCH (19:57)
[2021-03-18] MEDS: DIPHENOXYLATE/ATROPINE TABLET. PO SCH (20:00)
[2021-03-18] MEDS: DICYCLOMINE HCL 20 MG TABLET PO SCH (20:00)
--- NOTE | 2021-03-18 20:28 | PDOC ---
Exam Note: Napoleon Note: This note is a late entry for 03/16/2021 covers elements not covered in my initial note. Subjective: The patient was reviewed at treatment team meeting individually in the morning on 03/16/2021 with Lety Farley, Rosalva Hutton, and Archana Dillard (social and human services assistant), Bessy, activity therapy and Federica BARR, discussed and reviewed the chart. The patient slept 6-3/4 hours previous night. She remains withdrawn but less depressed. Denies suicidal ideation. She is on pureed diet. Her appetite is 75%. Serum ammonia is unremarkable. Valproic acid level is therapeutic at 57. Yesterday she was pulling off her oxygen, combative, somewhat confused in the morning, withdrawn and then did better. She has attended 4 groups in the past one week, responds to guided meditation. She was found rubbing the hand of another patient on the unit but redirected. Reportedly she has been evaluated for hospice care and we will transition to nursing facility on hospice care. Review of Systems: Impaired ambulation in wheelchair. Shortness of breath on O2 supplements. No CV, , eye, ENT system symptoms on review. Mental Status Exam: The patient is oriented to herself and situation. Speech is low in rate and rhythm, low in volume, coherent. Abstraction fair. Computation impaired. Language function intact. Attention span short. Mood and affect is withdrawn, depressed but improved. Laboratory Data: Reviewed. Impression: Bipolar disorder, depressed. Anxiety disorder unspecified. Impulse control disorder unspecified. Plan: Continue current psychotropics from initial note. Assessment: Vital Signs/I&O: Vital Signs Date Time Temp Pulse Resp B/P (MAP) Pulse Ox O2 Delivery O2 Flow Rate FiO2 03/18/21 19:56 95 104/67 03/18/21 15:23 98.0 20 94 2.0 03/18/21 05:53 Nasal Cannula I & O 03/17/21 03/17/21 03/18/21 15:00 23:00 07:00 Intake Total 900 ml 360 ml 100 ml Balance 900 ml 360 ml 100 ml Current Medications: Meds: Current Medications Medications (Trade) Dose Ordered Sig/Mya Route PRN Reason Start Time Stop Time Status Last Admin Dose Admin Acetaminophen (Tylenol) 650 mg PRN Q6HRS PRN PO MILD PAIN / TEMP > 100.3'F 02/16/21 15:45 03/04/21 09:21 DC 02/18/21 06:31 Multi-Ingredient Ointment (Analgesic [place]) 1 debra PRN QID PRN TP MUSCLE PAIN 02/16/21 15:45 03/04/21 09:21 DC Al Hydroxide/Mg Hydroxide (Mylanta Plus Xs) 15 ml PRN AFTMEALHC PRN PO DYSPEPSIA 02/16/21 15:45 03/04/21 22:05 Magnesium Hydroxide (Milk Of Magnesia) 2,400 mg PRN QHS PRN PO 1ST CHOICE CONSTIPATION 02/16/21 15:45 03/04/21 09:21 DC Acetaminophen (Tylenol) 1,000 mg Q6HRS PRN PO pain or fever 02/16/21 17:00 02/16/21 17:35 DC Acetaminophen (Tylenol) 500 mg Q4HRS PRN PO MILD PAIN 1-3 02/16/21 17:00 02/16/21 17:36 DC Bisacodyl (Dulcolax Tab) 5 mg PRN DAILY PRN PO 2ND CHOICE CONSTIPATION 02/16/21 17:00 03/04/21 09:21 DC Vitamin D (Vitamin D3) 50,000 unit WEEKLY PO 02/22/21 09:00 03/04/21 09:21 DC 02/22/21 07:16 Clonazepam (KlonoPIN) 0.5 mg BID PO 02/16/21 21:00 02/27/21 19:54 DC 02/27/21 10:11 Dicyclomine HCl (Bentyl) 20 mg TID PO 02/16/21 21:00 03/04/21 09:21 DC 03/03/21 21:07 Diphenoxylate HCl/ Atropine (Lomotil) 2 tab BID PO 02/16/21 21:00 03/04/21 09:21 DC 03/03/21 21:08 Divalproex Sodium (Depakote Er) 1,000 mg HS PO 02/16/21 21:00 03/07/21 20:15 DC 03/04/21 21:43 Duloxetine HCl (Cymbalta) 30 mg BID PO 02/16/21 21:00 03/07/21 20:15 DC 03/06/21 08:14 Fluticasone Propionate (Flonase) 2 spray DAILY NS 02/17/21 09:00 03/18/21 09:21 Furosemide (Lasix) 20 mg DAILY PO 02/17/21 09:00 03/04/21 09:21 DC 03/03/21 08:32 Gabapentin (Neurontin) 300 mg QID PO 02/16/21 17:00 03/18/21 19:56 Hydroxyurea (Hydrea) 1,000 mg DAILY PO 02/17/21 09:00 03/18/21 09:29 Levetiracetam (Keppra) 250 mg BID PO 02/16/21 21:00 03/02/21 14:48 DC 03/02/21 09:54 Lidocaine (Lidoderm) 1 patch DAILY TP 02/17/21 09:00 02/17/21 09:24 DC Al Hydroxide/Mg Hydroxide (Mylanta Plus Xs) 15 ml PRN AFTMEALHC PRN PO DYSPEPSIA 02/16/21 17:00 02/16/21 17:36 DC Mirabegron (Myrbetriq) 50 mg DAILY PO 02/17/21 09:00 03/04/21 09:21 DC 03/03/21 08:30 Nystatin (Nystop) 1 debra BID TP 02/16/21 21:00 03/18/21 19:57 Pantoprazole Sodium (Protonix) 40 mg DAILYAC PO 02/17/21 07:30 03/18/21 09:18 Potassium Chloride (Klor-Con) 40 meq DAILY PO 02/17/21 09:00 03/04/21 09:21 DC 03/03/21 08:32 Sulfasalazine (Azulfidine) 500 mg TID PO 02/16/21 21:00 03/07/21 20:15 DC 03/06/21 13:05 Trazodone HCl (Desyrel) 50 mg QHS PO 02/16/21 21:00 03/18/21 19:56 Non-Formulary Medication (Albuterol Sulfate (Albuterol Sulfate Conc Neb Soln)) 1 vial PRN Q4HRS PRN NEB SHORTNESS OF BREATH 02/16/21 17:00 02/16/21 17:49 DC Ascorbic Acid (Vitamin C) 1,000 mg DAILY PO 02/17/21 09:00 03/04/21 09:21 DC 03/03/21 08:34 Diltiazem HCl (Cardizem) 60 mg BID PO 02/16/21 21:00 03/18/21 19:56 Lactobacillus Rhamnosus (Culturelle) 1 cap DAILY PO 02/17/21 09:00 03/04/21 09:21 DC 03/03/21 08:32 Amylase/Lipase/ Protease (Zenpep 10,000) 1 cap TIDBFRMEAL PO 02/17/21 07:30 03/18/21 16:30 Non-Formulary Medication (Magnesium Hydroxide (Milk Of Magnesia)) 2,400 mg PRN DAILY PRN PO CONSTIPATION 02/16/21 17:00 02/16/21 17:37 DC Magnesium Oxide (Magnesium Oxide) 400 mg DAILY PO 02/17/21 09:00 03/04/21 09:21 DC 03/03/21 08:31 Non-Formulary Medication (Methyl Salicylate/ Menthol (Analgesic [place])) 1 debra PRN Q6HRS PRN TP MUSCLE PAIN 02/16/21 17:00 02/16/21 17:37 DC Non-Formulary Medication (Umeclidinium [place] (Incruse Ellipta)) 62.5 mcg DAILY IH 02/17/21 09:00 02/16/21 17:49 DC Non-Formulary Medication (Zinc Gluconate ) 50 mg DAILY PO 02/17/21 09:00 02/16/21 17:46 DC Albuterol/ Ipratropium (Duoneb) 3 ml RTQID NEB 02/16/21 20:00 02/17/21 19:52 DC Albuterol Sulfate (Ventolin) 2.5 mg PRN Q4HRS PRN NEB SHORTNESS OF BREATH 02/16/21 18:00 Influenza Virus Vaccine Quadrival (Flulaval Quad [id number] Syringe) 0.5 ml ONCE ONCE VAX IM 02/17/21 09:00 02/17/21 09:01 DC 02/17/21 09:21 Lidocaine (Lidoderm) 1 patch DAILY PRN TP pain 02/17/21 09:30 02/27/21 10:11 Albuterol/ Ipratropium (Combivent Respimat 20-100 Mcg) 1 puff RTQID INH 02/17/21 20:00 03/18/21 19:56 Sertraline HCl (Zoloft) 25 mg DAILY PO 02/22/21 09:00 02/24/21 10:00 DC 02/24/21 09:59 Sertraline HCl (Zoloft) 50 mg DAILY PO 02/25/21 09:00 03/01/21 18:30 DC 03/01/21 10:07 Olanzapine (ZyPREXA ZYDIS) 5 mg 1X ONCE PO 02/26/21 12:03 02/26/21 12:09 DC 02/26/21 12:25 Clonazepam (KlonoPIN) 0.5 mg DAILY PO 02/28/21 09:00 03/02/21 07:00 DC 03/01/21 10:07 Bupropion HCl (Wellbutrin Xl) 150 mg DAILY PO 03/02/21 09:00 03/08/21 15:46 DC 03/08/21 08:41 Levetiracetam (Keppra) 250 mg DAILY PO 03/03/21 09:00 03/18/21 09:37 Aripiprazole (Abilify) 5 mg DAILY PO 03/05/21 09:00 03/18/21 09:18 Ondansetron HCl (Zofran Odt) 4 mg PRN Q4HRS PRN PO NAUSEA/VOMITING 03/06/21 19:30 03/06/21 19:46 Potassium Chloride (Klor-Con) 30 meq BID PO 03/07/21 09:00 03/18/21 19:56 Divalproex Sodium (Depakote Er) 1,000 mg 1700 PO 03/08/21 17:00 03/12/21 00:01 DC 03/11/21 17:27 Duloxetine HCl (Cymbalta) 30 mg 0900,1700 PO 03/08/21 17:00 03/18/21 17:00 Sulfasalazine (Azulfidine) 500 mg 0900,1300,1700 PO 03/08/21 09:00 03/18/21 17:00 Bupropion HCl (Wellbutrin Xl) 300 mg DAILY PO 03/09/21 09:00 03/18/21 09:18 Potassium Chloride (Klor-Con) 40 meq 1630,1730 PO 03/08/21 16:30 03/08/21 18:04 DC 03/08/21 16:57 Potassium Chloride (Klor-Con) 40 meq 1700,1800 PO 03/08/21 17:15 03/08/21 18:04 DC 03/08/21 17:56 Divalproex Sodium (Depakote Sprinkles) 500 mg BID PO 03/12/21 09:00 03/18/21 19:56 Clotrimazole (Mycelex-7) 1 debra QHS VG 03/18/21 21:00 03/25/21 20:59 03/18/21 19:57 Dicyclomine HCl (Bentyl) 20 mg TID PO 03/18/21 21:00 03/18/21 20:00 Diphenoxylate HCl/ Atropine (Lomotil) 2 tab BID PO 03/18/21 21:00 03/18/21 20:00 Current Medications Medications (Trade) Dose Ordered Sig/Mya Route PRN Reason Start Time Stop Time Status Last Admin Dose Admin Clotrimazole (Mycelex-7) 1 debra QHS VG 03/18/21 21:00 03/25/21 20:59 03/18/21 19:57 Dicyclomine HCl (Bentyl) 20 mg TID PO 03/18/21 21:00 03/18/21 20:00 Diphenoxylate HCl/ Atropine (Lomotil) 2 tab BID PO 03/18/21 21:00 03/18/21 20:00 I have reviewed the current psychotropics carefully including drug interactions. Risk benefit ratio favors no change other than as noted in my dictated progress note. Diagnosis: Problems: (1) Impulse control disorder, unspecified (2) Mild cognitive impairment (3) Anxiety disorder, unspecified (4) Bipolar 1 disorder, depressed NITHIN STEVENS MD Mar 18, 2021 20:28
--- NOTE | 2021-03-18 20:55 | PDOC ---
Exam Note: Napoleon Note: This note is a late entry for 03/17/2021 covers elements not covered in my initial note. Subjective: The patient was seen individually in the evening of 03/17/2021 with Federica BARR, discussed and reviewed the chart. The patient slept 8 hours previous night. She has been paranoid previous evening, refuses medication at times because she feels it has a bad taste. During the day today she is calmer. No yelling previous night. Appetite is better today. Review of Systems: Impaired ambulation in wheelchair. Shortness of breath on O2 supplements. No CV, , eye, ENT system symptoms on review. Mental Status Exam: The patient is oriented to herself and situation. Speech is low in rate and rhythm, low in volume, coherent. Abstraction fair. Computation impaired. Language function intact. Attention span short. Mood and affect is improved. Laboratory Data: Reviewed. Impression: Bipolar disorder, depressed. Anxiety disorder unspecified. Impulse control disorder unspecified. Plan: Continue current psychotropics from initial note. Transition back to the half-way yesterday but apparently her son the power of human resources operations coordinator has relegated his role as a power of human resources operations coordinator and social service staff is going to have to work from baseline again to find appropriate placement and a person to sign for her as a power of human resources operations coordinator. I addressed this with the patient individually. Assessment: Vital Signs/I&O: Vital Signs Date Time Temp Pulse Resp B/P (MAP) Pulse Ox O2 Delivery O2 Flow Rate FiO2 03/18/21 19:56 95 104/67 03/18/21 15:23 98.0 20 94 2.0 03/18/21 05:53 Nasal Cannula I & O 03/17/21 03/17/21 03/18/21 15:00 23:00 07:00 Intake Total 900 ml 360 ml 100 ml Balance 900 ml 360 ml 100 ml Current Medications: Meds: Current Medications Medications (Trade) Dose Ordered Sig/Mya Route PRN Reason Start Time Stop Time Status Last Admin Dose Admin Acetaminophen (Tylenol) 650 mg PRN Q6HRS PRN PO MILD PAIN / TEMP > 100.3'F 02/16/21 15:45 03/04/21 09:21 DC 02/18/21 06:31 Multi-Ingredient Ointment (Analgesic [place]) 1 debra PRN QID PRN TP MUSCLE PAIN 02/16/21 15:45 03/04/21 09:21 DC Al Hydroxide/Mg Hydroxide (Mylanta Plus Xs) 15 ml PRN AFTMEALHC PRN PO DYSPEPSIA 02/16/21 15:45 03/04/21 22:05 Magnesium Hydroxide (Milk Of Magnesia) 2,400 mg PRN QHS PRN PO 1ST CHOICE CONSTIPATION 02/16/21 15:45 03/04/21 09:21 DC Acetaminophen (Tylenol) 1,000 mg Q6HRS PRN PO pain or fever 02/16/21 17:00 02/16/21 17:35 DC Acetaminophen (Tylenol) 500 mg Q4HRS PRN PO MILD PAIN 1-3 02/16/21 17:00 02/16/21 17:36 DC Bisacodyl (Dulcolax Tab) 5 mg PRN DAILY PRN PO 2ND CHOICE CONSTIPATION 02/16/21 17:00 03/04/21 09:21 DC Vitamin D (Vitamin D3) 50,000 unit WEEKLY PO 02/22/21 09:00 03/04/21 09:21 DC 02/22/21 07:16 Clonazepam (KlonoPIN) 0.5 mg BID PO 02/16/21 21:00 02/27/21 19:54 DC 02/27/21 10:11 Dicyclomine HCl (Bentyl) 20 mg TID PO 02/16/21 21:00 03/04/21 09:21 DC 03/03/21 21:07 Diphenoxylate HCl/ Atropine (Lomotil) 2 tab BID PO 02/16/21 21:00 03/04/21 09:21 DC 03/03/21 21:08 Divalproex Sodium (Depakote Er) 1,000 mg HS PO 02/16/21 21:00 03/07/21 20:15 DC 03/04/21 21:43 Duloxetine HCl (Cymbalta) 30 mg BID PO 02/16/21 21:00 03/07/21 20:15 DC 03/06/21 08:14 Fluticasone Propionate (Flonase) 2 spray DAILY NS 02/17/21 09:00 03/18/21 09:21 Furosemide (Lasix) 20 mg DAILY PO 02/17/21 09:00 03/04/21 09:21 DC 03/03/21 08:32 Gabapentin (Neurontin) 300 mg QID PO 02/16/21 17:00 03/18/21 19:56 Hydroxyurea (Hydrea) 1,000 mg DAILY PO 02/17/21 09:00 03/18/21 09:29 Levetiracetam (Keppra) 250 mg BID PO 02/16/21 21:00 03/02/21 14:48 DC 03/02/21 09:54 Lidocaine (Lidoderm) 1 patch DAILY TP 02/17/21 09:00 02/17/21 09:24 DC Al Hydroxide/Mg Hydroxide (Mylanta Plus Xs) 15 ml PRN AFTMEALHC PRN PO DYSPEPSIA 02/16/21 17:00 02/16/21 17:36 DC Mirabegron (Myrbetriq) 50 mg DAILY PO 02/17/21 09:00 03/04/21 09:21 DC 03/03/21 08:30 Nystatin (Nystop) 1 debra BID TP 02/16/21 21:00 03/18/21 19:57 Pantoprazole Sodium (Protonix) 40 mg DAILYAC PO 02/17/21 07:30 03/18/21 09:18 Potassium Chloride (Klor-Con) 40 meq DAILY PO 02/17/21 09:00 03/04/21 09:21 DC 03/03/21 08:32 Sulfasalazine (Azulfidine) 500 mg TID PO 02/16/21 21:00 03/07/21 20:15 DC 03/06/21 13:05 Trazodone HCl (Desyrel) 50 mg QHS PO 02/16/21 21:00 03/18/21 19:56 Non-Formulary Medication (Albuterol Sulfate (Albuterol Sulfate Conc Neb Soln)) 1 vial PRN Q4HRS PRN NEB SHORTNESS OF BREATH 02/16/21 17:00 02/16/21 17:49 DC Ascorbic Acid (Vitamin C) 1,000 mg DAILY PO 02/17/21 09:00 03/04/21 09:21 DC 03/03/21 08:34 Diltiazem HCl (Cardizem) 60 mg BID PO 02/16/21 21:00 03/18/21 19:56 Lactobacillus Rhamnosus (Culturelle) 1 cap DAILY PO 02/17/21 09:00 03/04/21 09:21 DC 03/03/21 08:32 Amylase/Lipase/ Protease (Zenpep 10,000) 1 cap TIDBFRMEAL PO 02/17/21 07:30 03/18/21 16:30 Non-Formulary Medication (Magnesium Hydroxide (Milk Of Magnesia)) 2,400 mg PRN DAILY PRN PO CONSTIPATION 02/16/21 17:00 02/16/21 17:37 DC Magnesium Oxide (Magnesium Oxide) 400 mg DAILY PO 02/17/21 09:00 03/04/21 09:21 DC 03/03/21 08:31 Non-Formulary Medication (Methyl Salicylate/ Menthol (Analgesic [place])) 1 debra PRN Q6HRS PRN TP MUSCLE PAIN 02/16/21 17:00 02/16/21 17:37 DC Non-Formulary Medication (Umeclidinium [place] (Incruse Ellipta)) 62.5 mcg DAILY IH 02/17/21 09:00 02/16/21 17:49 DC Non-Formulary Medication (Zinc Gluconate ) 50 mg DAILY PO 02/17/21 09:00 02/16/21 17:46 DC Albuterol/ Ipratropium (Duoneb) 3 ml RTQID NEB 02/16/21 20:00 02/17/21 19:52 DC Albuterol Sulfate (Ventolin) 2.5 mg PRN Q4HRS PRN NEB SHORTNESS OF BREATH 02/16/21 18:00 Influenza Virus Vaccine Quadrival (Flulaval Quad [id number] Syringe) 0.5 ml ONCE ONCE VAX IM 02/17/21 09:00 02/17/21 09:01 DC 02/17/21 09:21 Lidocaine (Lidoderm) 1 patch DAILY PRN TP pain 02/17/21 09:30 02/27/21 10:11 Albuterol/ Ipratropium (Combivent Respimat 20-100 Mcg) 1 puff RTQID INH 02/17/21 20:00 03/18/21 19:56 Sertraline HCl (Zoloft) 25 mg DAILY PO 02/22/21 09:00 02/24/21 10:00 DC 02/24/21 09:59 Sertraline HCl (Zoloft) 50 mg DAILY PO 02/25/21 09:00 03/01/21 18:30 DC 03/01/21 10:07 Olanzapine (ZyPREXA ZYDIS) 5 mg 1X ONCE PO 02/26/21 12:03 02/26/21 12:09 DC 02/26/21 12:25 Clonazepam (KlonoPIN) 0.5 mg DAILY PO 02/28/21 09:00 03/02/21 07:00 DC 03/01/21 10:07 Bupropion HCl (Wellbutrin Xl) 150 mg DAILY PO 03/02/21 09:00 03/08/21 15:46 DC 03/08/21 08:41 Levetiracetam (Keppra) 250 mg DAILY PO 03/03/21 09:00 03/18/21 09:37 Aripiprazole (Abilify) 5 mg DAILY PO 03/05/21 09:00 03/18/21 09:18 Ondansetron HCl (Zofran Odt) 4 mg PRN Q4HRS PRN PO NAUSEA/VOMITING 03/06/21 19:30 03/06/21 19:46 Potassium Chloride (Klor-Con) 30 meq BID PO 03/07/21 09:00 03/18/21 19:56 Divalproex Sodium (Depakote Er) 1,000 mg 1700 PO 03/08/21 17:00 03/12/21 00:01 DC 03/11/21 17:27 Duloxetine HCl (Cymbalta) 30 mg 0900,1700 PO 03/08/21 17:00 03/18/21 17:00 Sulfasalazine (Azulfidine) 500 mg 0900,1300,1700 PO 03/08/21 09:00 03/18/21 17:00 Bupropion HCl (Wellbutrin Xl) 300 mg DAILY PO 03/09/21 09:00 03/18/21 09:18 Potassium Chloride (Klor-Con) 40 meq 1630,1730 PO 03/08/21 16:30 03/08/21 18:04 DC 03/08/21 16:57 Potassium Chloride (Klor-Con) 40 meq 1700,1800 PO 03/08/21 17:15 03/08/21 18:04 DC 03/08/21 17:56 Divalproex Sodium (Depakote Sprinkles) 500 mg BID PO 03/12/21 09:00 03/18/21 19:56 Clotrimazole (Mycelex-7) 1 debra QHS VG 03/18/21 21:00 03/25/21 20:59 03/18/21 19:57 Dicyclomine HCl (Bentyl) 20 mg TID PO 03/18/21 21:00 03/18/21 20:00 Diphenoxylate HCl/ Atropine (Lomotil) 2 tab BID PO 03/18/21 21:00 03/18/21 20:00 Current Medications Medications (Trade) Dose Ordered Sig/Mya Route PRN Reason Start Time Stop Time Status Last Admin Dose Admin Clotrimazole (Mycelex-7) 1 debra QHS VG 03/18/21 21:00 03/25/21 20:59 03/18/21 19:57 Dicyclomine HCl (Bentyl) 20 mg TID PO 03/18/21 21:00 03/18/21 20:00 Diphenoxylate HCl/ Atropine (Lomotil) 2 tab BID PO 03/18/21 21:00 03/18/21 20:00 I have reviewed the current psychotropics carefully including drug interactions. Risk benefit ratio favors no change other than as noted in my dictated progress note. Diagnosis: Problems: (1) Impulse control disorder, unspecified (2) Mild cognitive impairment (3) Anxiety disorder, unspecified (4) Bipolar 1 disorder, depressed NITHIN STEVENS MD Mar 18, 2021 20:55
--- NOTE | 2021-03-18 20:55 | PDOC ---
Exam Note: Napoleon Note: Please also refer to the separate dictated note~for this date of service dictated separately.~Patient seen individually. Discussed the patient with Nursing staff reviewed the chart.~Reviewed interim history and current functioning. Reviewed vital signs,~Labs/ Radiology~and current medications noted below. Continue current treatment with the changes noted in the dictated addendum note Assessment: Vital Signs/I&O: Vital Signs Date Time Temp Pulse Resp B/P (MAP) Pulse Ox O2 Delivery O2 Flow Rate FiO2 03/18/21 19:56 95 104/67 03/18/21 15:23 98.0 20 94 2.0 03/18/21 05:53 Nasal Cannula I & O 0 03/17/21 03/17/21 03/18/21 15:00 23:00 07:00 Intake Total 900 ml 360 ml 100 ml Balance 900 ml 360 ml 100 ml Current Medications: Meds: Current Medications Medications (Trade) Dose Ordered Sig/Mya Route PRN Reason Start Time Stop Time Status Last Admin Dose Admin Clotrimazole (Mycelex-7) 1 debra QHS VG 03/18/21 21:00 03/25/21 20:59 03/18/21 19:57 Dicyclomine HCl (Bentyl) 20 mg TID PO 03/18/21 21:00 03/18/21 20:00 Diphenoxylate HCl/ Atropine (Lomotil) 2 tab BID PO 03/18/21 21:00 03/18/21 20:00 I have reviewed the current psychotropics carefully including drug interactions. Risk benefit ratio favors no change other than as noted in my dictated progress note. Diagnosis: Problems: (1) Impulse control disorder, unspecified (2) Mild cognitive impairment (3) Anxiety disorder, unspecified (4) Bipolar affective, depress, sev w/ psych NITHIN STEVENS MD Mar 18, 2021 20:55
--- NOTE | 2021-03-18 23:46 | NUR ---
Pt located in dayroom this evening sitting calmly. Compliant with crushed medications. Pleasant and cooperative.
[2021-03-19 06:26] VITALS: BP 127/80
[2021-03-19] MEDS: PANTOPRAZOLE 40 MG TABLET. PO SCH (08:16)
[2021-03-19] MEDS: LIPASE/PROTEAS/AMYLAS 10/32/42 CAPSULE.DR. PO SCH ×3 (08:16→17:52)
[2021-03-19] MEDS: dilTIAZem HCL 30 MG TABLET PO SCH ×2 (08:17→20:20)
[2021-03-19] MEDS: ARIPiprazole 5 MG TABLET PO SCH (08:18)
[2021-03-19] MEDS: DIPHENOXYLATE/ATROPINE TABLET. PO SCH ×2 (08:18→20:20)
[2021-03-19] MEDS: levETIRAcetam 250 MG TABLET PO SCH (08:18)
[2021-03-19] MEDS: buPROPion XL 300 MG TAB.ER.24H. PO SCH (08:18)
[2021-03-19] MEDS: GABAPENTIN 300 MG CAPSULE. PO SCH ×4 (08:18→20:19)
[2021-03-19] MEDS: DULoxetine HCL 30 MG CAPSULE.DR PO SCH ×2 (08:18→17:53)
[2021-03-19] MEDS: DICYCLOMINE HCL 20 MG TABLET PO SCH ×3 (08:19→20:20)
[2021-03-19] MEDS: POTASSIUM CHLORIDE 10 MEQ TABLET.ER. PO SCH ×2 (08:19→20:19)
[2021-03-19] MEDS: DIVALPROEX 125 MG CAP.SPRINK PO SCH ×2 (08:20→20:18)
[2021-03-19] MEDS: FLUTICASONE 50MCG/NASAL SPRAY 16GM BOTTLE. NS SCH (08:20)
[2021-03-19] MEDS: IPRATROPIUM/ALBUTEROL 20/100mcg/INH INHALER. INH SCH ×4 (08:20→20:21)
[2021-03-19] MEDS: sulfaSALAzine 500 MG TABLET PO SCH ×3 (08:21→17:52)
[2021-03-19] MEDS: HYDROXYUREA 500 MG CAPSULE PO SCH (08:35)
[2021-03-19] MEDS: NYSTATIN TOPICAL POWDER 15GM BOTTLE. TP SCH ×2 (08:36→20:21)
--- NOTE | 2021-03-19 11:21 | NUR ---
Nursing note: Pt in dining room at time of AM med pass and assessment. She is pleasant, compliant with meds whole a few at a time on a spoon, and cooperative with assessment. She has no complaints of pain/concerns. She is currently in the day room watching TV. Will continue to monitor.
[2021-03-19 16:09] VITALS: BP 107/67
[2021-03-19] MEDS: traZODone 50 MG TABLET. PO SCH (20:19)
[2021-03-19] MEDS: CLOTRIMAZOLE 1% VAGINAL CREAM 45GM TUBE. VG SCH (20:21)
--- NOTE | 2021-03-19 20:27 | PDOC ---
Exam Note: Napoleon Note: Please also refer to the separate dictated note~for this date of service dictated separately.~Patient seen individually. Discussed the patient with Nursing staff reviewed the chart.~Reviewed interim history and current functioning. Reviewed vital signs,~Labs/ Radiology~and current medications noted below. Continue current treatment with the changes noted in the dictated addendum note Assessment: Vital Signs/I&O: Vital Signs Date Time Temp Pulse Resp B/P (MAP) Pulse Ox O2 Delivery O2 Flow Rate FiO2 03/19/21 20:20 91 107/67 03/19/21 16:09 98.3 18 91 Room Air 03/19/21 06:26 2.0 I & O 03/18/21 03/18/21 03/19/21 15:00 23:00 07:00 Intake Total 600 ml 360 ml Balance 600 ml 360 ml Current Medications: Meds: Current Medications Medications (Trade) Dose Ordered Sig/Mya Route PRN Reason Start Time Stop Time Status Last Admin Dose Admin Acetaminophen (Tylenol) 650 mg PRN Q6HRS PRN PO MILD PAIN / TEMP > 100.3'F 02/16/21 15:45 03/04/21 09:21 DC 02/18/21 06:31 Multi-Ingredient Ointment (Analgesic [place]) 1 debra PRN QID PRN TP MUSCLE PAIN 02/16/21 15:45 03/04/21 09:21 DC Al Hydroxide/Mg Hydroxide (Mylanta Plus Xs) 15 ml PRN AFTMEALHC PRN PO DYSPEPSIA 02/16/21 15:45 03/04/21 22:05 Magnesium Hydroxide (Milk Of Magnesia) 2,400 mg PRN QHS PRN PO 1ST CHOICE CONSTIPATION 02/16/21 15:45 03/04/21 09:21 DC Acetaminophen (Tylenol) 1,000 mg Q6HRS PRN PO pain or fever 02/16/21 17:00 02/16/21 17:35 DC Acetaminophen (Tylenol) 500 mg Q4HRS PRN PO MILD PAIN 1-3 02/16/21 17:00 02/16/21 17:36 DC Bisacodyl (Dulcolax Tab) 5 mg PRN DAILY PRN PO 2ND CHOICE CONSTIPATION 02/16/21 17:00 03/04/21 09:21 DC Vitamin D (Vitamin D3) 50,000 unit WEEKLY PO 02/22/21 09:00 03/04/21 09:21 DC 02/22/21 07:16 Clonazepam (KlonoPIN) 0.5 mg BID PO 02/16/21 21:00 02/27/21 19:54 DC 02/27/21 10:11 Dicyclomine HCl (Bentyl) 20 mg TID PO 02/16/21 21:00 03/04/21 09:21 DC 03/03/21 21:07 Diphenoxylate HCl/ Atropine (Lomotil) 2 tab BID PO 02/16/21 21:00 03/04/21 09:21 DC 03/03/21 21:08 Divalproex Sodium (Depakote Er) 1,000 mg HS PO 02/16/21 21:00 03/07/21 20:15 DC 03/04/21 21:43 Duloxetine HCl (Cymbalta) 30 mg BID PO 02/16/21 21:00 03/07/21 20:15 DC 03/06/21 08:14 Fluticasone Propionate (Flonase) 2 spray DAILY NS 02/17/21 09:00 03/19/21 08:20 Furosemide (Lasix) 20 mg DAILY PO 02/17/21 09:00 03/04/21 09:21 DC 03/03/21 08:32 Gabapentin (Neurontin) 300 mg QID PO 02/16/21 17:00 03/19/21 20:19 Hydroxyurea (Hydrea) 1,000 mg DAILY PO 02/17/21 09:00 03/19/21 08:35 Levetiracetam (Keppra) 250 mg BID PO 02/16/21 21:00 03/02/21 14:48 DC 03/02/21 09:54 Lidocaine (Lidoderm) 1 patch DAILY TP 02/17/21 09:00 02/17/21 09:24 DC Al Hydroxide/Mg Hydroxide (Mylanta Plus Xs) 15 ml PRN AFTMEALHC PRN PO DYSPEPSIA 02/16/21 17:00 02/16/21 17:36 DC Mirabegron (Myrbetriq) 50 mg DAILY PO 02/17/21 09:00 03/04/21 09:21 DC 03/03/21 08:30 Nystatin (Nystop) 1 debra BID TP 02/16/21 21:00 03/19/21 20:21 Pantoprazole Sodium (Protonix) 40 mg DAILYAC PO 02/17/21 07:30 03/19/21 08:16 Potassium Chloride (Klor-Con) 40 meq DAILY PO 02/17/21 09:00 03/04/21 09:21 DC 03/03/21 08:32 Sulfasalazine (Azulfidine) 500 mg TID PO 02/16/21 21:00 03/07/21 20:15 DC 03/06/21 13:05 Trazodone HCl (Desyrel) 50 mg QHS PO 02/16/21 21:00 03/19/21 20:19 Non-Formulary Medication (Albuterol Sulfate (Albuterol Sulfate Conc Neb Soln)) 1 vial PRN Q4HRS PRN NEB SHORTNESS OF BREATH 02/16/21 17:00 02/16/21 17:49 DC Ascorbic Acid (Vitamin C) 1,000 mg DAILY PO 02/17/21 09:00 03/04/21 09:21 DC 03/03/21 08:34 Diltiazem HCl (Cardizem) 60 mg BID PO 02/16/21 21:00 03/19/21 20:20 Lactobacillus Rhamnosus (Culturelle) 1 cap DAILY PO 02/17/21 09:00 03/04/21 09:21 DC 03/03/21 08:32 Amylase/Lipase/ Protease (Zenpep 10,000) 1 cap TIDBFRMEAL PO 02/17/21 07:30 03/19/21 17:52 Non-Formulary Medication (Magnesium Hydroxide (Milk Of Magnesia)) 2,400 mg PRN DAILY PRN PO CONSTIPATION 02/16/21 17:00 02/16/21 17:37 DC Magnesium Oxide (Magnesium Oxide) 400 mg DAILY PO 02/17/21 09:00 03/04/21 09:21 DC 03/03/21 08:31 Non-Formulary Medication (Methyl Salicylate/ Menthol (Analgesic [place])) 1 debra PRN Q6HRS PRN TP MUSCLE PAIN 02/16/21 17:00 02/16/21 17:37 DC Non-Formulary Medication (Umeclidinium [place] (Incruse Ellipta)) 62.5 mcg DAILY IH 02/17/21 09:00 02/16/21 17:49 DC Non-Formulary Medication (Zinc Gluconate ) 50 mg DAILY PO 02/17/21 09:00 02/16/21 17:46 DC Albuterol/ Ipratropium (Duoneb) 3 ml RTQID NEB 02/16/21 20:00 02/17/21 19:52 DC Albuterol Sulfate (Ventolin) 2.5 mg PRN Q4HRS PRN NEB SHORTNESS OF BREATH 02/16/21 18:00 Influenza Virus Vaccine Quadrival (Flulaval Quad [id number] Syringe) 0.5 ml ONCE ONCE VAX IM 02/17/21 09:00 02/17/21 09:01 DC 02/17/21 09:21 Lidocaine (Lidoderm) 1 patch DAILY PRN TP pain 02/17/21 09:30 02/27/21 10:11 Albuterol/ Ipratropium (Combivent Respimat 20-100 Mcg) 1 puff RTQID INH 02/17/21 20:00 03/19/21 20:21 Sertraline HCl (Zoloft) 25 mg DAILY PO 02/22/21 09:00 02/24/21 10:00 DC 02/24/21 09:59 Sertraline HCl (Zoloft) 50 mg DAILY PO 02/25/21 09:00 03/01/21 18:30 DC 03/01/21 10:07 Olanzapine (ZyPREXA ZYDIS) 5 mg 1X ONCE PO 02/26/21 12:03 02/26/21 12:09 DC 02/26/21 12:25 Clonazepam (KlonoPIN) 0.5 mg DAILY PO 02/28/21 09:00 03/02/21 07:00 DC 03/01/21 10:07 Bupropion HCl (Wellbutrin Xl) 150 mg DAILY PO 03/02/21 09:00 03/08/21 15:46 DC 03/08/21 08:41 Levetiracetam (Keppra) 250 mg DAILY PO 03/03/21 09:00 03/19/21 08:18 Aripiprazole (Abilify) 5 mg DAILY PO 03/05/21 09:00 03/19/21 08:18 Ondansetron HCl (Zofran Odt) 4 mg PRN Q4HRS PRN PO NAUSEA/VOMITING 03/06/21 19:30 03/06/21 19:46 Potassium Chloride (Klor-Con) 30 meq BID PO 03/07/21 09:00 03/19/21 20:19 Divalproex Sodium (Depakote Er) 1,000 mg 1700 PO 03/08/21 17:00 03/12/21 00:01 DC 03/11/21 17:27 Duloxetine HCl (Cymbalta) 30 mg 0900,1700 PO 03/08/21 17:00 03/19/21 17:53 Sulfasalazine (Azulfidine) 500 mg 0900,1300,1700 PO 03/08/21 09:00 03/19/21 17:52 Bupropion HCl (Wellbutrin Xl) 300 mg DAILY PO 03/09/21 09:00 03/19/21 08:18 Potassium Chloride (Klor-Con) 40 meq 1630,1730 PO 03/08/21 16:30 03/08/21 18:04 DC 03/08/21 16:57 Potassium Chloride (Klor-Con) 40 meq 1700,1800 PO 03/08/21 17:15 03/08/21 18:04 DC 03/08/21 17:56 Divalproex Sodium (Depakote Sprinkles) 500 mg BID PO 03/12/21 09:00 03/19/21 20:18 Clotrimazole (Mycelex-7) 1 debra QHS VG 03/18/21 21:00 03/25/21 20:59 03/19/21 20:21 Dicyclomine HCl (Bentyl) 20 mg TID PO 03/18/21 21:00 03/19/21 20:20 Diphenoxylate HCl/ Atropine (Lomotil) 2 tab BID PO 03/18/21 21:00 03/19/21 20:20 Current Medications Medications (Trade) Dose Ordered Sig/Mya Route PRN Reason Start Time Stop Time Status Last Admin Dose Admin Clotrimazole (Mycelex-7) 1 debra QHS VG 03/18/21 21:00 03/25/21 20:59 03/19/21 20:21 Dicyclomine HCl (Bentyl) 20 mg TID PO 03/18/21 21:00 03/19/21 20:20 Diphenoxylate HCl/ Atropine (Lomotil) 2 tab BID PO 03/18/21 21:00 03/19/21 20:20 I have reviewed the current psychotropics carefully including drug interactions. Risk benefit ratio favors no change other than as noted in my dictated progress note. Diagnosis: Problems: (1) Mild cognitive impairment (2) Impulse control disorder, unspecified (3) Anxiety disorder, unspecified (4) Bipolar affective, depress, sev w/ psych NITHIN STEVENS MD Mar 19, 2021 20:27
--- NOTE | 2021-03-19 23:27 | NUR ---
Pt located in bed this evening. Pt pleasant and calm. Compliant with crushed medications. Pt currently sleeping.
[2021-03-20 05:59] VITALS: BP 110/74
[2021-03-20] MEDS: dilTIAZem HCL 30 MG TABLET PO SCH ×2 (07:53→20:09)
[2021-03-20] MEDS: levETIRAcetam 250 MG TABLET PO SCH (07:53)
[2021-03-20] MEDS: DICYCLOMINE HCL 20 MG TABLET PO SCH ×3 (07:53→20:10)
[2021-03-20] MEDS: PANTOPRAZOLE 40 MG TABLET. PO SCH (07:53)
[2021-03-20] MEDS: DULoxetine HCL 30 MG CAPSULE.DR PO SCH ×2 (07:54→17:07)
[2021-03-20] MEDS: ARIPiprazole 5 MG TABLET PO SCH (07:54)
[2021-03-20] MEDS: DIPHENOXYLATE/ATROPINE TABLET. PO SCH ×2 (07:54→20:09)
[2021-03-20] MEDS: DIVALPROEX 125 MG CAP.SPRINK PO SCH ×2 (07:54→20:10)
[2021-03-20] MEDS: GABAPENTIN 300 MG CAPSULE. PO SCH ×4 (07:54→20:10)
[2021-03-20] MEDS: LIPASE/PROTEAS/AMYLAS 10/32/42 CAPSULE.DR. PO SCH ×3 (07:54→17:06)
[2021-03-20] MEDS: buPROPion XL 300 MG TAB.ER.24H. PO SCH (07:54)
[2021-03-20] MEDS: POTASSIUM CHLORIDE 10 MEQ TABLET.ER. PO SCH ×2 (07:55→20:10)
[2021-03-20] MEDS: IPRATROPIUM/ALBUTEROL 20/100mcg/INH INHALER. INH SCH ×4 (07:55→20:10)
[2021-03-20] MEDS: sulfaSALAzine 500 MG TABLET PO SCH ×3 (07:56→17:07)
[2021-03-20] MEDS: FLUTICASONE 50MCG/NASAL SPRAY 16GM BOTTLE. NS SCH (07:56)
[2021-03-20] MEDS: NYSTATIN TOPICAL POWDER 15GM BOTTLE. TP SCH ×2 (07:57→20:10)
[2021-03-20] MEDS: HYDROXYUREA 500 MG CAPSULE PO SCH (08:03)
--- NOTE | 2021-03-20 09:34 | NUR ---
Nursing note: Pt in dining room at time of AM med pass and assessment. She is compliant with meds crushed in applesauce and cooperative with assessment. She denies having any pain/concerns. She is currently resting quietly in her room. Will continue to monitor.
[2021-03-20 15:43] VITALS: BP 112/68
[2021-03-20] MEDS: traZODone 50 MG TABLET. PO SCH (20:09)
[2021-03-20] MEDS: CLOTRIMAZOLE 1% VAGINAL CREAM 45GM TUBE. VG SCH (20:10)
--- NOTE | 2021-03-20 20:47 | PDOC ---
Exam Note: Napoleon Note: This note is a late entry for 03/18/2021 covers elements not covered in my initial note. Subjective: The patient was seen individually in the evening of 03/18/2021 with Eloisa BARR, discussed and reviewed the chart. The patient slept 8 hours previous night. Appetite is 50-75%. Patient has had intermittent diarrhea. She takes her Lomotil and has been restarted on Lomotil and Bentyl by Dr. Clark. Review of Systems: Impaired ambulation in wheelchair. Shortness of breath on O2 supplements. No CV, , eye, ENT system symptoms on review. Mental Status Exam: The patient is reasonably oriented. Speech is coherent, pleasant, smiling as I met with her. Abstraction fair. Computation impaired. Language function intact. Attention span short. Mood and affect is improved, little more animated. Denies suicidal ideation. Laboratory Data: Reviewed. Impression: Bipolar disorder, depressed. Anxiety disorder unspecified. Impulse control disorder unspecified. Plan: Continue current psychotropics from initial note. Assessment: Vital Signs/I&O: Vital Signs Date Time Temp Pulse Resp B/P (MAP) Pulse Ox O2 Delivery O2 Flow Rate FiO2 03/20/21 20:09 89 112/68 03/20/21 15:43 99.3 19 93 3.0 03/20/21 05:59 Nasal Cannula I & O0 03/19/21 03/19/21 03/20/21 15:00 23:00 07:00 Intake Total 840 ml 480 ml Balance 840 ml 480 ml Current Medications: Meds: Current Medications Medications (Trade) Dose Ordered Sig/Mya Route PRN Reason Start Time Stop Time Status Last Admin Dose Admin Acetaminophen (Tylenol) 650 mg PRN Q6HRS PRN PO MILD PAIN / TEMP > 100.3'F 02/16/21 15:45 03/04/21 09:21 DC 02/18/21 06:31 Multi-Ingredient Ointment (Analgesic [place]) 1 debra PRN QID PRN TP MUSCLE PAIN 02/16/21 15:45 03/04/21 09:21 DC Al Hydroxide/Mg Hydroxide (Mylanta Plus Xs) 15 ml PRN AFTMEALHC PRN PO DYSPEPSIA 02/16/21 15:45 03/04/21 22:05 Magnesium Hydroxide (Milk Of Magnesia) 2,400 mg PRN QHS PRN PO 1ST CHOICE CONSTIPATION 02/16/21 15:45 03/04/21 09:21 DC Acetaminophen (Tylenol) 1,000 mg Q6HRS PRN PO pain or fever 02/16/21 17:00 02/16/21 17:35 DC Acetaminophen (Tylenol) 500 mg Q4HRS PRN PO MILD PAIN 1-3 02/16/21 17:00 02/16/21 17:36 DC Bisacodyl (Dulcolax Tab) 5 mg PRN DAILY PRN PO 2ND CHOICE CONSTIPATION 02/16/21 17:00 03/04/21 09:21 DC Vitamin D (Vitamin D3) 50,000 unit WEEKLY PO 02/22/21 09:00 03/04/21 09:21 DC 02/22/21 07:16 Clonazepam (KlonoPIN) 0.5 mg BID PO 02/16/21 21:00 02/27/21 19:54 DC 02/27/21 10:11 Dicyclomine HCl (Bentyl) 20 mg TID PO 02/16/21 21:00 03/04/21 09:21 DC 03/03/21 21:07 Diphenoxylate HCl/ Atropine (Lomotil) 2 tab BID PO 02/16/21 21:00 03/04/21 09:21 DC 03/03/21 21:08 Divalproex Sodium (Depakote Er) 1,000 mg HS PO 02/16/21 21:00 03/07/21 20:15 DC 03/04/21 21:43 Duloxetine HCl (Cymbalta) 30 mg BID PO 02/16/21 21:00 03/07/21 20:15 DC 03/06/21 08:14 Fluticasone Propionate (Flonase) 2 spray DAILY NS 02/17/21 09:00 03/20/21 07:56 Furosemide (Lasix) 20 mg DAILY PO 02/17/21 09:00 03/04/21 09:21 DC 03/03/21 08:32 Gabapentin (Neurontin) 300 mg QID PO 02/16/21 17:00 03/20/21 20:10 Hydroxyurea (Hydrea) 1,000 mg DAILY PO 02/17/21 09:00 03/20/21 08:03 Levetiracetam (Keppra) 250 mg BID PO 02/16/21 21:00 03/02/21 14:48 DC 03/02/21 09:54 Lidocaine (Lidoderm) 1 patch DAILY TP 02/17/21 09:00 02/17/21 09:24 DC Al Hydroxide/Mg Hydroxide (Mylanta Plus Xs) 15 ml PRN AFTMEALHC PRN PO DYSPEPSIA 02/16/21 17:00 02/16/21 17:36 DC Mirabegron (Myrbetriq) 50 mg DAILY PO 02/17/21 09:00 03/04/21 09:21 DC 03/03/21 08:30 Nystatin (Nystop) 1 debra BID TP 02/16/21 21:00 03/20/21 20:10 Pantoprazole Sodium (Protonix) 40 mg DAILYAC PO 02/17/21 07:30 03/20/21 07:53 Potassium Chloride (Klor-Con) 40 meq DAILY PO 02/17/21 09:00 03/04/21 09:21 DC 03/03/21 08:32 Sulfasalazine (Azulfidine) 500 mg TID PO 02/16/21 21:00 03/07/21 20:15 DC 03/06/21 13:05 Trazodone HCl (Desyrel) 50 mg QHS PO 02/16/21 21:00 03/20/21 20:09 Non-Formulary Medication (Albuterol Sulfate (Albuterol Sulfate Conc Neb Soln)) 1 vial PRN Q4HRS PRN NEB SHORTNESS OF BREATH 02/16/21 17:00 02/16/21 17:49 DC Ascorbic Acid (Vitamin C) 1,000 mg DAILY PO 02/17/21 09:00 03/04/21 09:21 DC 03/03/21 08:34 Diltiazem HCl (Cardizem) 60 mg BID PO 02/16/21 21:00 03/20/21 20:09 Lactobacillus Rhamnosus (Culturelle) 1 cap DAILY PO 02/17/21 09:00 03/04/21 09:21 DC 03/03/21 08:32 Amylase/Lipase/ Protease (Zenpep 10,000) 1 cap TIDBFRMEAL PO 02/17/21 07:30 03/20/21 17:06 Non-Formulary Medication (Magnesium Hydroxide (Milk Of Magnesia)) 2,400 mg PRN DAILY PRN PO CONSTIPATION 02/16/21 17:00 02/16/21 17:37 DC Magnesium Oxide (Magnesium Oxide) 400 mg DAILY PO 02/17/21 09:00 03/04/21 09:21 DC 03/03/21 08:31 Non-Formulary Medication (Methyl Salicylate/ Menthol (Analgesic [place])) 1 debra PRN Q6HRS PRN TP MUSCLE PAIN 02/16/21 17:00 02/16/21 17:37 DC Non-Formulary Medication (Umeclidinium [place] (Incruse Ellipta)) 62.5 mcg DAILY IH 02/17/21 09:00 02/16/21 17:49 DC Non-Formulary Medication (Zinc Gluconate ) 50 mg DAILY PO 02/17/21 09:00 02/16/21 17:46 DC Albuterol/ Ipratropium (Duoneb) 3 ml RTQID NEB 02/16/21 20:00 02/17/21 19:52 DC Albuterol Sulfate (Ventolin) 2.5 mg PRN Q4HRS PRN NEB SHORTNESS OF BREATH 02/16/21 18:00 Influenza Virus Vaccine Quadrival (Flulaval Quad [id number] Syringe) 0.5 ml ONCE ONCE VAX IM 02/17/21 09:00 02/17/21 09:01 DC 02/17/21 09:21 Lidocaine (Lidoderm) 1 patch DAILY PRN TP pain 02/17/21 09:30 02/27/21 10:11 Albuterol/ Ipratropium (Combivent Respimat 20-100 Mcg) 1 puff RTQID INH 02/17/21 20:00 03/20/21 20:10 Sertraline HCl (Zoloft) 25 mg DAILY PO 02/22/21 09:00 02/24/21 10:00 DC 02/24/21 09:59 Sertraline HCl (Zoloft) 50 mg DAILY PO 02/25/21 09:00 03/01/21 18:30 DC 03/01/21 10:07 Olanzapine (ZyPREXA ZYDIS) 5 mg 1X ONCE PO 02/26/21 12:03 02/26/21 12:09 DC 02/26/21 12:25 Clonazepam (KlonoPIN) 0.5 mg DAILY PO 02/28/21 09:00 03/02/21 07:00 DC 03/01/21 10:07 Bupropion HCl (Wellbutrin Xl) 150 mg DAILY PO 03/02/21 09:00 03/08/21 15:46 DC 03/08/21 08:41 Levetiracetam (Keppra) 250 mg DAILY PO 03/03/21 09:00 03/20/21 07:53 Aripiprazole (Abilify) 5 mg DAILY PO 03/05/21 09:00 03/20/21 07:54 Ondansetron HCl (Zofran Odt) 4 mg PRN Q4HRS PRN PO NAUSEA/VOMITING 03/06/21 19:30 03/06/21 19:46 Potassium Chloride (Klor-Con) 30 meq BID PO 03/07/21 09:00 03/20/21 20:10 Divalproex Sodium (Depakote Er) 1,000 mg 1700 PO 03/08/21 17:00 03/12/21 00:01 DC 03/11/21 17:27 Duloxetine HCl (Cymbalta) 30 mg 0900,1700 PO 03/08/21 17:00 03/20/21 17:07 Sulfasalazine (Azulfidine) 500 mg 0900,1300,1700 PO 03/08/21 09:00 03/20/21 17:07 Bupropion HCl (Wellbutrin Xl) 300 mg DAILY PO 03/09/21 09:00 03/20/21 07:54 Potassium Chloride (Klor-Con) 40 meq 1630,1730 PO 03/08/21 16:30 03/08/21 18:04 DC 03/08/21 16:57 Potassium Chloride (Klor-Con) 40 meq 1700,1800 PO 03/08/21 17:15 03/08/21 18:04 DC 03/08/21 17:56 Divalproex Sodium (Depakote Sprinkles) 500 mg BID PO 03/12/21 09:00 03/20/21 20:10 Clotrimazole (Mycelex-7) 1 debra QHS VG 03/18/21 21:00 03/25/21 20:59 03/20/21 20:10 Dicyclomine HCl (Bentyl) 20 mg TID PO 03/18/21 21:00 03/20/21 20:10 Diphenoxylate HCl/ Atropine (Lomotil) 2 tab BID PO 03/18/21 21:00 03/20/21 20:09 I have reviewed the current psychotropics carefully including drug interactions. Risk benefit ratio favors no change other than as noted in my dictated progress note. Diagnosis: Problems: (1) Impulse control disorder, unspecified (2) Mild cognitive impairment (3) Anxiety disorder, unspecified (4) Bipolar affective, depress, sev w/ psych NITHIN STEVENS MD Mar 20, 2021 20:47
--- NOTE | 2021-03-20 21:06 | PDOC ---
Exam Note: Napoleon Note: This note is a late entry for 03/19/2021 covers elements not covered in my initial note. Subjective: The patient was seen individually in the evening of 03/19/2021 with Milly BARR, discussed and reviewed the chart. The patient slept 6-1/4 hours previous night. Overall she is doing better. Appetite has improved but as I met with her individually in the dining area, her oxygen had come off and she was oblivious to this. Nursing staff did reposition it. Review of Systems: Impaired ambulation in wheelchair. Shortness of breath on O2 supplements. No CV, , eye, ENT system symptoms on review. Mental Status Exam: The patient is reasonably oriented. Speech has some latency, low in volume, coherent, little more animated. Abstraction fair. Computation impaired. Language function intact. Mood and affect remains somewhat withdrawn. Laboratory Data: Reviewed. Impression: Bipolar disorder, depressed. Anxiety disorder unspecified. Impulse control disorder unspecified. Plan: Continue current psychotropics from initial note. Assessment: Vital Signs/I&O: Vital Signs Date Time Temp Pulse Resp B/P (MAP) Pulse Ox O2 Delivery O2 Flow Rate FiO2 03/20/21 20:09 89 112/68 03/20/21 15:43 99.3 19 93 3.0 03/20/21 05:59 Nasal Cannula I & O 03/19/21 03/19/21 03/20/21 15:00 23:00 07:00 Intake Total 840 ml 480 ml Balance 840 ml 480 ml Current Medications: Meds: Current Medications Medications (Trade) Dose Ordered Sig/Mya Route PRN Reason Start Time Stop Time Status Last Admin Dose Admin Acetaminophen (Tylenol) 650 mg PRN Q6HRS PRN PO MILD PAIN / TEMP > 100.3'F 02/16/21 15:45 03/04/21 09:21 DC 02/18/21 06:31 Multi-Ingredient Ointment (Analgesic [place]) 1 debra PRN QID PRN TP MUSCLE PAIN 02/16/21 15:45 03/04/21 09:21 DC Al Hydroxide/Mg Hydroxide (Mylanta Plus Xs) 15 ml PRN AFTMEALHC PRN PO DYSPEPSIA 02/16/21 15:45 03/04/21 22:05 Magnesium Hydroxide (Milk Of Magnesia) 2,400 mg PRN QHS PRN PO 1ST CHOICE CONSTIPATION 02/16/21 15:45 03/04/21 09:21 DC Acetaminophen (Tylenol) 1,000 mg Q6HRS PRN PO pain or fever 02/16/21 17:00 02/16/21 17:35 DC Acetaminophen (Tylenol) 500 mg Q4HRS PRN PO MILD PAIN 1-3 02/16/21 17:00 02/16/21 17:36 DC Bisacodyl (Dulcolax Tab) 5 mg PRN DAILY PRN PO 2ND CHOICE CONSTIPATION 02/16/21 17:00 03/04/21 09:21 DC Vitamin D (Vitamin D3) 50,000 unit WEEKLY PO 02/22/21 09:00 03/04/21 09:21 DC 02/22/21 07:16 Clonazepam (KlonoPIN) 0.5 mg BID PO 02/16/21 21:00 02/27/21 19:54 DC 02/27/21 10:11 Dicyclomine HCl (Bentyl) 20 mg TID PO 02/16/21 21:00 03/04/21 09:21 DC 03/03/21 21:07 Diphenoxylate HCl/ Atropine (Lomotil) 2 tab BID PO 02/16/21 21:00 03/04/21 09:21 DC 03/03/21 21:08 Divalproex Sodium (Depakote Er) 1,000 mg HS PO 02/16/21 21:00 03/07/21 20:15 DC 03/04/21 21:43 Duloxetine HCl (Cymbalta) 30 mg BID PO 02/16/21 21:00 03/07/21 20:15 DC 03/06/21 08:14 Fluticasone Propionate (Flonase) 2 spray DAILY NS 02/17/21 09:00 03/20/21 07:56 Furosemide (Lasix) 20 mg DAILY PO 02/17/21 09:00 03/04/21 09:21 DC 03/03/21 08:32 Gabapentin (Neurontin) 300 mg QID PO 02/16/21 17:00 03/20/21 20:10 Hydroxyurea (Hydrea) 1,000 mg DAILY PO 02/17/21 09:00 03/20/21 08:03 Levetiracetam (Keppra) 250 mg BID PO 02/16/21 21:00 03/02/21 14:48 DC 03/02/21 09:54 Lidocaine (Lidoderm) 1 patch DAILY TP 02/17/21 09:00 02/17/21 09:24 DC Al Hydroxide/Mg Hydroxide (Mylanta Plus Xs) 15 ml PRN AFTMEALHC PRN PO DYSPEPSIA 02/16/21 17:00 02/16/21 17:36 DC Mirabegron (Myrbetriq) 50 mg DAILY PO 02/17/21 09:00 03/04/21 09:21 DC 03/03/21 08:30 Nystatin (Nystop) 1 debra BID TP 02/16/21 21:00 03/20/21 20:10 Pantoprazole Sodium (Protonix) 40 mg DAILYAC PO 02/17/21 07:30 03/20/21 07:53 Potassium Chloride (Klor-Con) 40 meq DAILY PO 02/17/21 09:00 03/04/21 09:21 DC 03/03/21 08:32 Sulfasalazine (Azulfidine) 500 mg TID PO 02/16/21 21:00 03/07/21 20:15 DC 03/06/21 13:05 Trazodone HCl (Desyrel) 50 mg QHS PO 02/16/21 21:00 03/20/21 20:09 Non-Formulary Medication (Albuterol Sulfate (Albuterol Sulfate Conc Neb Soln)) 1 vial PRN Q4HRS PRN NEB SHORTNESS OF BREATH 02/16/21 17:00 02/16/21 17:49 DC Ascorbic Acid (Vitamin C) 1,000 mg DAILY PO 02/17/21 09:00 03/04/21 09:21 DC 03/03/21 08:34 Diltiazem HCl (Cardizem) 60 mg BID PO 02/16/21 21:00 03/20/21 20:09 Lactobacillus Rhamnosus (Culturelle) 1 cap DAILY PO 02/17/21 09:00 03/04/21 09:21 DC 03/03/21 08:32 Amylase/Lipase/ Protease (Zenpep 10,000) 1 cap TIDBFRMEAL PO 02/17/21 07:30 03/20/21 17:06 Non-Formulary Medication (Magnesium Hydroxide (Milk Of Magnesia)) 2,400 mg PRN DAILY PRN PO CONSTIPATION 02/16/21 17:00 02/16/21 17:37 DC Magnesium Oxide (Magnesium Oxide) 400 mg DAILY PO 02/17/21 09:00 03/04/21 09:21 DC 03/03/21 08:31 Non-Formulary Medication (Methyl Salicylate/ Menthol (Analgesic [place])) 1 debra PRN Q6HRS PRN TP MUSCLE PAIN 02/16/21 17:00 02/16/21 17:37 DC Non-Formulary Medication (Umeclidinium [place] (Incruse Ellipta)) 62.5 mcg DAILY IH 02/17/21 09:00 02/16/21 17:49 DC Non-Formulary Medication (Zinc Gluconate ) 50 mg DAILY PO 02/17/21 09:00 02/16/21 17:46 DC Albuterol/ Ipratropium (Duoneb) 3 ml RTQID NEB 02/16/21 20:00 02/17/21 19:52 DC Albuterol Sulfate (Ventolin) 2.5 mg PRN Q4HRS PRN NEB SHORTNESS OF BREATH 02/16/21 18:00 Influenza Virus Vaccine Quadrival (Flulaval Quad [id number] Syringe) 0.5 ml ONCE ONCE VAX IM 02/17/21 09:00 02/17/21 09:01 DC 02/17/21 09:21 Lidocaine (Lidoderm) 1 patch DAILY PRN TP pain 02/17/21 09:30 02/27/21 10:11 Albuterol/ Ipratropium (Combivent Respimat 20-100 Mcg) 1 puff RTQID INH 02/17/21 20:00 03/20/21 20:10 Sertraline HCl (Zoloft) 25 mg DAILY PO 02/22/21 09:00 02/24/21 10:00 DC 02/24/21 09:59 Sertraline HCl (Zoloft) 50 mg DAILY PO 02/25/21 09:00 03/01/21 18:30 DC 03/01/21 10:07 Olanzapine (ZyPREXA ZYDIS) 5 mg 1X ONCE PO 02/26/21 12:03 02/26/21 12:09 DC 02/26/21 12:25 Clonazepam (KlonoPIN) 0.5 mg DAILY PO 02/28/21 09:00 03/02/21 07:00 DC 03/01/21 10:07 Bupropion HCl (Wellbutrin Xl) 150 mg DAILY PO 03/02/21 09:00 03/08/21 15:46 DC 03/08/21 08:41 Levetiracetam (Keppra) 250 mg DAILY PO 03/03/21 09:00 03/20/21 07:53 Aripiprazole (Abilify) 5 mg DAILY PO 03/05/21 09:00 03/20/21 07:54 Ondansetron HCl (Zofran Odt) 4 mg PRN Q4HRS PRN PO NAUSEA/VOMITING 03/06/21 19:30 03/06/21 19:46 Potassium Chloride (Klor-Con) 30 meq BID PO 03/07/21 09:00 03/20/21 20:10 Divalproex Sodium (Depakote Er) 1,000 mg 1700 PO 03/08/21 17:00 03/12/21 00:01 DC 03/11/21 17:27 Duloxetine HCl (Cymbalta) 30 mg 0900,1700 PO 03/08/21 17:00 03/20/21 17:07 Sulfasalazine (Azulfidine) 500 mg 0900,1300,1700 PO 03/08/21 09:00 03/20/21 17:07 Bupropion HCl (Wellbutrin Xl) 300 mg DAILY PO 03/09/21 09:00 03/20/21 07:54 Potassium Chloride (Klor-Con) 40 meq 1630,1730 PO 03/08/21 16:30 03/08/21 18:04 DC 03/08/21 16:57 Potassium Chloride (Klor-Con) 40 meq 1700,1800 PO 03/08/21 17:15 03/08/21 18:04 DC 03/08/21 17:56 Divalproex Sodium (Depakote Sprinkles) 500 mg BID PO 03/12/21 09:00 03/20/21 20:10 Clotrimazole (Mycelex-7) 1 debra QHS VG 03/18/21 21:00 03/25/21 20:59 03/20/21 20:10 Dicyclomine HCl (Bentyl) 20 mg TID PO 03/18/21 21:00 03/20/21 20:10 Diphenoxylate HCl/ Atropine (Lomotil) 2 tab BID PO 03/18/21 21:00 03/20/21 20:09 I have reviewed the current psychotropics carefully including drug interactions. Risk benefit ratio favors no change other than as noted in my dictated progress note. Diagnosis: Problems: (1) Impulse control disorder, unspecified (2) Mild cognitive impairment (3) Anxiety disorder, unspecified (4) Bipolar affective, depress, sev w/ psych NITHIN STEVENS MD Mar 20, 2021 21:06
--- NOTE | 2021-03-20 21:07 | PDOC ---
Exam Note: Napoleon Note: Please also refer to the separate dictated note~for this date of service dictated separately.~Patient seen individually. Discussed the patient with Nursing staff reviewed the chart.~Reviewed interim history and current functioning. Reviewed vital signs,~Labs/ Radiology~and current medications noted below. Continue current treatment with the changes noted in the dictated addendum note Assessment: Vital Signs/I&O: Vital Signs Date Time Temp Pulse Resp B/P (MAP) Pulse Ox O2 Delivery O2 Flow Rate FiO2 03/20/21 20:09 89 112/68 03/20/21 15:43 99.3 19 93 3.0 03/20/21 05:59 Nasal Cannula I & O 0 03/19/21 03/19/21 03/20/21 15:00 23:00 07:00 Intake Total 840 ml 480 ml Balance 840 ml 480 ml Current Medications: Meds: Current Medications Medications (Trade) Dose Ordered Sig/Mya Route PRN Reason Start Time Stop Time Status Last Admin Dose Admin Acetaminophen (Tylenol) 650 mg PRN Q6HRS PRN PO MILD PAIN / TEMP > 100.3'F 02/16/21 15:45 03/04/21 09:21 DC 02/18/21 06:31 Multi-Ingredient Ointment (Analgesic [place]) 1 debra PRN QID PRN TP MUSCLE PAIN 02/16/21 15:45 03/04/21 09:21 DC Al Hydroxide/Mg Hydroxide (Mylanta Plus Xs) 15 ml PRN AFTMEALHC PRN PO DYSPEPSIA 02/16/21 15:45 03/04/21 22:05 Magnesium Hydroxide (Milk Of Magnesia) 2,400 mg PRN QHS PRN PO 1ST CHOICE CONSTIPATION 02/16/21 15:45 03/04/21 09:21 DC Acetaminophen (Tylenol) 1,000 mg Q6HRS PRN PO pain or fever 02/16/21 17:00 02/16/21 17:35 DC Acetaminophen (Tylenol) 500 mg Q4HRS PRN PO MILD PAIN 1-3 02/16/21 17:00 02/16/21 17:36 DC Bisacodyl (Dulcolax Tab) 5 mg PRN DAILY PRN PO 2ND CHOICE CONSTIPATION 02/16/21 17:00 03/04/21 09:21 DC Vitamin D (Vitamin D3) 50,000 unit WEEKLY PO 02/22/21 09:00 03/04/21 09:21 DC 02/22/21 07:16 Clonazepam (KlonoPIN) 0.5 mg BID PO 02/16/21 21:00 02/27/21 19:54 DC 02/27/21 10:11 Dicyclomine HCl (Bentyl) 20 mg TID PO 02/16/21 21:00 03/04/21 09:21 DC 03/03/21 21:07 Diphenoxylate HCl/ Atropine (Lomotil) 2 tab BID PO 02/16/21 21:00 03/04/21 09:21 DC 03/03/21 21:08 Divalproex Sodium (Depakote Er) 1,000 mg HS PO 02/16/21 21:00 03/07/21 20:15 DC 03/04/21 21:43 Duloxetine HCl (Cymbalta) 30 mg BID PO 02/16/21 21:00 03/07/21 20:15 DC 03/06/21 08:14 Fluticasone Propionate (Flonase) 2 spray DAILY NS 02/17/21 09:00 03/20/21 07:56 Furosemide (Lasix) 20 mg DAILY PO 02/17/21 09:00 03/04/21 09:21 DC 03/03/21 08:32 Gabapentin (Neurontin) 300 mg QID PO 02/16/21 17:00 03/20/21 20:10 Hydroxyurea (Hydrea) 1,000 mg DAILY PO 02/17/21 09:00 03/20/21 08:03 Levetiracetam (Keppra) 250 mg BID PO 02/16/21 21:00 03/02/21 14:48 DC 03/02/21 09:54 Lidocaine (Lidoderm) 1 patch DAILY TP 02/17/21 09:00 02/17/21 09:24 DC Al Hydroxide/Mg Hydroxide (Mylanta Plus Xs) 15 ml PRN AFTMEALHC PRN PO DYSPEPSIA 02/16/21 17:00 02/16/21 17:36 DC Mirabegron (Myrbetriq) 50 mg DAILY PO 02/17/21 09:00 03/04/21 09:21 DC 03/03/21 08:30 Nystatin (Nystop) 1 debra BID TP 02/16/21 21:00 03/20/21 20:10 Pantoprazole Sodium (Protonix) 40 mg DAILYAC PO 02/17/21 07:30 03/20/21 07:53 Potassium Chloride (Klor-Con) 40 meq DAILY PO 02/17/21 09:00 03/04/21 09:21 DC 03/03/21 08:32 Sulfasalazine (Azulfidine) 500 mg TID PO 02/16/21 21:00 03/07/21 20:15 DC 03/06/21 13:05 Trazodone HCl (Desyrel) 50 mg QHS PO 02/16/21 21:00 03/20/21 20:09 Non-Formulary Medication (Albuterol Sulfate (Albuterol Sulfate Conc Neb Soln)) 1 vial PRN Q4HRS PRN NEB SHORTNESS OF BREATH 02/16/21 17:00 02/16/21 17:49 DC Ascorbic Acid (Vitamin C) 1,000 mg DAILY PO 02/17/21 09:00 03/04/21 09:21 DC 03/03/21 08:34 Diltiazem HCl (Cardizem) 60 mg BID PO 02/16/21 21:00 03/20/21 20:09 Lactobacillus Rhamnosus (Culturelle) 1 cap DAILY PO 02/17/21 09:00 03/04/21 09:21 DC 03/03/21 08:32 Amylase/Lipase/ Protease (Zenpep 10,000) 1 cap TIDBFRMEAL PO 02/17/21 07:30 03/20/21 17:06 Non-Formulary Medication (Magnesium Hydroxide (Milk Of Magnesia)) 2,400 mg PRN DAILY PRN PO CONSTIPATION 02/16/21 17:00 02/16/21 17:37 DC Magnesium Oxide (Magnesium Oxide) 400 mg DAILY PO 02/17/21 09:00 03/04/21 09:21 DC 03/03/21 08:31 Non-Formulary Medication (Methyl Salicylate/ Menthol (Analgesic [place])) 1 debra PRN Q6HRS PRN TP MUSCLE PAIN 02/16/21 17:00 02/16/21 17:37 DC Non-Formulary Medication (Umeclidinium [place] (Incruse Ellipta)) 62.5 mcg DAILY IH 02/17/21 09:00 02/16/21 17:49 DC Non-Formulary Medication (Zinc Gluconate ) 50 mg DAILY PO 02/17/21 09:00 02/16/21 17:46 DC Albuterol/ Ipratropium (Duoneb) 3 ml RTQID NEB 02/16/21 20:00 02/17/21 19:52 DC Albuterol Sulfate (Ventolin) 2.5 mg PRN Q4HRS PRN NEB SHORTNESS OF BREATH 02/16/21 18:00 Influenza Virus Vaccine Quadrival (Flulaval Quad [id number] Syringe) 0.5 ml ONCE ONCE VAX IM 02/17/21 09:00 02/17/21 09:01 DC 02/17/21 09:21 Lidocaine (Lidoderm) 1 patch DAILY PRN TP pain 02/17/21 09:30 02/27/21 10:11 Albuterol/ Ipratropium (Combivent Respimat 20-100 Mcg) 1 puff RTQID INH 02/17/21 20:00 03/20/21 20:10 Sertraline HCl (Zoloft) 25 mg DAILY PO 02/22/21 09:00 02/24/21 10:00 DC 02/24/21 09:59 Sertraline HCl (Zoloft) 50 mg DAILY PO 02/25/21 09:00 03/01/21 18:30 DC 03/01/21 10:07 Olanzapine (ZyPREXA ZYDIS) 5 mg 1X ONCE PO 02/26/21 12:03 02/26/21 12:09 DC 02/26/21 12:25 Clonazepam (KlonoPIN) 0.5 mg DAILY PO 02/28/21 09:00 03/02/21 07:00 DC 03/01/21 10:07 Bupropion HCl (Wellbutrin Xl) 150 mg DAILY PO 03/02/21 09:00 03/08/21 15:46 DC 03/08/21 08:41 Levetiracetam (Keppra) 250 mg DAILY PO 03/03/21 09:00 03/20/21 07:53 Aripiprazole (Abilify) 5 mg DAILY PO 03/05/21 09:00 03/20/21 07:54 Ondansetron HCl (Zofran Odt) 4 mg PRN Q4HRS PRN PO NAUSEA/VOMITING 03/06/21 19:30 03/06/21 19:46 Potassium Chloride (Klor-Con) 30 meq BID PO 03/07/21 09:00 03/20/21 20:10 Divalproex Sodium (Depakote Er) 1,000 mg 1700 PO 03/08/21 17:00 03/12/21 00:01 DC 03/11/21 17:27 Duloxetine HCl (Cymbalta) 30 mg 0900,1700 PO 03/08/21 17:00 03/20/21 17:07 Sulfasalazine (Azulfidine) 500 mg 0900,1300,1700 PO 03/08/21 09:00 03/20/21 17:07 Bupropion HCl (Wellbutrin Xl) 300 mg DAILY PO 03/09/21 09:00 03/20/21 07:54 Potassium Chloride (Klor-Con) 40 meq 1630,1730 PO 03/08/21 16:30 03/08/21 18:04 DC 03/08/21 16:57 Potassium Chloride (Klor-Con) 40 meq 1700,1800 PO 03/08/21 17:15 03/08/21 18:04 DC 03/08/21 17:56 Divalproex Sodium (Depakote Sprinkles) 500 mg BID PO 03/12/21 09:00 03/20/21 20:10 Clotrimazole (Mycelex-7) 1 debra QHS VG 03/18/21 21:00 03/25/21 20:59 03/20/21 20:10 Dicyclomine HCl (Bentyl) 20 mg TID PO 03/18/21 21:00 03/20/21 20:10 Diphenoxylate HCl/ Atropine (Lomotil) 2 tab BID PO 03/18/21 21:00 03/20/21 20:09 I have reviewed the current psychotropics carefully including drug interactions. Risk benefit ratio favors no change other than as noted in my dictated progress note. Diagnosis: Problems: (1) Impulse control disorder, unspecified (2) Mild cognitive impairment (3) Anxiety disorder, unspecified (4) Bipolar affective, depress, sev w/ psych NITHIN STEVENS MD Mar 20, 2021 21:07
--- NOTE | 2021-03-20 22:56 | NUR ---
Pt calm and cooperative this evening sitting in her broda chair. Compliant with crushed medications. Pt currently sleeping.
[2021-03-21 05:36] VITALS: BP 121/77
[2021-03-21] MEDS: sulfaSALAzine 500 MG TABLET PO SCH ×3 (08:43→17:20)
[2021-03-21] MEDS: GABAPENTIN 300 MG CAPSULE. PO SCH ×4 (08:43→20:21)
[2021-03-21] MEDS: PANTOPRAZOLE 40 MG TABLET. PO SCH (08:43)
[2021-03-21] MEDS: buPROPion XL 300 MG TAB.ER.24H. PO SCH (08:43)
[2021-03-21] MEDS: ARIPiprazole 5 MG TABLET PO SCH (08:43)
[2021-03-21] MEDS: LIPASE/PROTEAS/AMYLAS 10/32/42 CAPSULE.DR. PO SCH ×3 (08:43→17:20)
[2021-03-21] MEDS: DIVALPROEX 125 MG CAP.SPRINK PO SCH ×2 (08:45→20:22)
[2021-03-21] MEDS: DULoxetine HCL 30 MG CAPSULE.DR PO SCH ×2 (08:45→17:20)
[2021-03-21] MEDS: POTASSIUM CHLORIDE 10 MEQ TABLET.ER. PO SCH ×2 (08:45→20:22)
[2021-03-21] MEDS: HYDROXYUREA 500 MG CAPSULE PO SCH (08:45)
[2021-03-21] MEDS: dilTIAZem HCL 30 MG TABLET PO SCH ×2 (08:46→20:21)
[2021-03-21] MEDS: levETIRAcetam 250 MG TABLET PO SCH (08:46)
[2021-03-21] MEDS: DIPHENOXYLATE/ATROPINE TABLET. PO SCH ×2 (08:46→20:21)
[2021-03-21] MEDS: DICYCLOMINE HCL 20 MG TABLET PO SCH ×3 (08:46→20:22)
[2021-03-21] MEDS: IPRATROPIUM/ALBUTEROL 20/100mcg/INH INHALER. INH SCH ×4 (08:47→20:23)
[2021-03-21] MEDS: FLUTICASONE 50MCG/NASAL SPRAY 16GM BOTTLE. NS SCH (08:47)
[2021-03-21] MEDS: NYSTATIN TOPICAL POWDER 15GM BOTTLE. TP SCH ×2 (08:52→20:23)
--- NOTE | 2021-03-21 11:24 | NUR ---
Nsg Note; Brigitte has been in the broda chair in the hallway this am where she was found to be taking off her oxygen. She complies to put it back on but then is found with it off again later. She has been incontinent of bowel this am x2.
[2021-03-21 15:18] VITALS: BP 156/81
[2021-03-21] MEDS: traZODone 50 MG TABLET. PO SCH (20:21)
[2021-03-21] MEDS: CLOTRIMAZOLE 1% VAGINAL CREAM 45GM TUBE. VG SCH (20:23)
--- NOTE | 2021-03-21 20:47 | PDOC ---
Exam Note: Napoleon Note: Please also refer to the separate dictated note~for this date of service dictated separately.~Patient seen individually. Discussed the patient with Nursing staff reviewed the chart.~Reviewed interim history and current functioning. Reviewed vital signs,~Labs/ Radiology~and current medications noted below. Continue current treatment with the changes noted in the dictated addendum note Assessment: Vital Signs/I&O: Vital Signs Date Time Temp Pulse Resp B/P (MAP) Pulse Ox O2 Delivery O2 Flow Rate FiO2 03/21/21 20:21 77 156/81 03/21/21 15:18 98.6 16 96 Room Air 2.0 I & O 03/20/21 03/20/21 03/21/21 15:00 23:00 07:00 Intake Total 480 ml 580 ml Balance 480 ml 580 ml Current Medications: Meds: Current Medications Medications (Trade) Dose Ordered Sig/Mya Route PRN Reason Start Time Stop Time Status Last Admin Dose Admin Acetaminophen (Tylenol) 650 mg PRN Q6HRS PRN PO MILD PAIN / TEMP > 100.3'F 02/16/21 15:45 03/04/21 09:21 DC 02/18/21 06:31 Multi-Ingredient Ointment (Analgesic [place]) 1 debra PRN QID PRN TP MUSCLE PAIN 02/16/21 15:45 03/04/21 09:21 DC Al Hydroxide/Mg Hydroxide (Mylanta Plus Xs) 15 ml PRN AFTMEALHC PRN PO DYSPEPSIA 02/16/21 15:45 03/04/21 22:05 Magnesium Hydroxide (Milk Of Magnesia) 2,400 mg PRN QHS PRN PO 1ST CHOICE CONSTIPATION 02/16/21 15:45 03/04/21 09:21 DC Acetaminophen (Tylenol) 1,000 mg Q6HRS PRN PO pain or fever 02/16/21 17:00 02/16/21 17:35 DC Acetaminophen (Tylenol) 500 mg Q4HRS PRN PO MILD PAIN 1-3 02/16/21 17:00 02/16/21 17:36 DC Bisacodyl (Dulcolax Tab) 5 mg PRN DAILY PRN PO 2ND CHOICE CONSTIPATION 02/16/21 17:00 03/04/21 09:21 DC Vitamin D (Vitamin D3) 50,000 unit WEEKLY PO 02/22/21 09:00 03/04/21 09:21 DC 02/22/21 07:16 Clonazepam (KlonoPIN) 0.5 mg BID PO 02/16/21 21:00 02/27/21 19:54 DC 02/27/21 10:11 Dicyclomine HCl (Bentyl) 20 mg TID PO 02/16/21 21:00 03/04/21 09:21 DC 03/03/21 21:07 Diphenoxylate HCl/ Atropine (Lomotil) 2 tab BID PO 02/16/21 21:00 03/04/21 09:21 DC 03/03/21 21:08 Divalproex Sodium (Depakote Er) 1,000 mg HS PO 02/16/21 21:00 03/07/21 20:15 DC 03/04/21 21:43 Duloxetine HCl (Cymbalta) 30 mg BID PO 02/16/21 21:00 03/07/21 20:15 DC 03/06/21 08:14 Fluticasone Propionate (Flonase) 2 spray DAILY NS 02/17/21 09:00 03/21/21 08:47 Furosemide (Lasix) 20 mg DAILY PO 02/17/21 09:00 03/04/21 09:21 DC 03/03/21 08:32 Gabapentin (Neurontin) 300 mg QID PO 02/16/21 17:00 03/21/21 20:21 Hydroxyurea (Hydrea) 1,000 mg DAILY PO 02/17/21 09:00 03/21/21 08:45 Levetiracetam (Keppra) 250 mg BID PO 02/16/21 21:00 03/02/21 14:48 DC 03/02/21 09:54 Lidocaine (Lidoderm) 1 patch DAILY TP 02/17/21 09:00 02/17/21 09:24 DC Al Hydroxide/Mg Hydroxide (Mylanta Plus Xs) 15 ml PRN AFTMEALHC PRN PO DYSPEPSIA 02/16/21 17:00 02/16/21 17:36 DC Mirabegron (Myrbetriq) 50 mg DAILY PO 02/17/21 09:00 03/04/21 09:21 DC 03/03/21 08:30 Nystatin (Nystop) 1 debra BID TP 02/16/21 21:00 03/21/21 20:23 Pantoprazole Sodium (Protonix) 40 mg DAILYAC PO 02/17/21 07:30 03/21/21 08:43 Potassium Chloride (Klor-Con) 40 meq DAILY PO 02/17/21 09:00 03/04/21 09:21 DC 03/03/21 08:32 Sulfasalazine (Azulfidine) 500 mg TID PO 02/16/21 21:00 03/07/21 20:15 DC 03/06/21 13:05 Trazodone HCl (Desyrel) 50 mg QHS PO 02/16/21 21:00 03/21/21 20:21 Non-Formulary Medication (Albuterol Sulfate (Albuterol Sulfate Conc Neb Soln)) 1 vial PRN Q4HRS PRN NEB SHORTNESS OF BREATH 02/16/21 17:00 02/16/21 17:49 DC Ascorbic Acid (Vitamin C) 1,000 mg DAILY PO 02/17/21 09:00 03/04/21 09:21 DC 03/03/21 08:34 Diltiazem HCl (Cardizem) 60 mg BID PO 02/16/21 21:00 03/21/21 20:21 Lactobacillus Rhamnosus (Culturelle) 1 cap DAILY PO 02/17/21 09:00 03/04/21 09:21 DC 03/03/21 08:32 Amylase/Lipase/ Protease (Zenpep 10,000) 1 cap TIDBFRMEAL PO 02/17/21 07:30 03/21/21 17:20 Non-Formulary Medication (Magnesium Hydroxide (Milk Of Magnesia)) 2,400 mg PRN DAILY PRN PO CONSTIPATION 02/16/21 17:00 02/16/21 17:37 DC Magnesium Oxide (Magnesium Oxide) 400 mg DAILY PO 02/17/21 09:00 03/04/21 09:21 DC 03/03/21 08:31 Non-Formulary Medication (Methyl Salicylate/ Menthol (Analgesic [place])) 1 debra PRN Q6HRS PRN TP MUSCLE PAIN 02/16/21 17:00 02/16/21 17:37 DC Non-Formulary Medication (Umeclidinium [place] (Incruse Ellipta)) 62.5 mcg DAILY IH 02/17/21 09:00 02/16/21 17:49 DC Non-Formulary Medication (Zinc Gluconate ) 50 mg DAILY PO 02/17/21 09:00 02/16/21 17:46 DC Albuterol/ Ipratropium (Duoneb) 3 ml RTQID NEB 02/16/21 20:00 02/17/21 19:52 DC Albuterol Sulfate (Ventolin) 2.5 mg PRN Q4HRS PRN NEB SHORTNESS OF BREATH 02/16/21 18:00 Influenza Virus Vaccine Quadrival (Flulaval Quad [id number] Syringe) 0.5 ml ONCE ONCE VAX IM 02/17/21 09:00 02/17/21 09:01 DC 02/17/21 09:21 Lidocaine (Lidoderm) 1 patch DAILY PRN TP pain 02/17/21 09:30 02/27/21 10:11 Albuterol/ Ipratropium (Combivent Respimat 20-100 Mcg) 1 puff RTQID INH 02/17/21 20:00 03/21/21 20:23 Sertraline HCl (Zoloft) 25 mg DAILY PO 02/22/21 09:00 02/24/21 10:00 DC 02/24/21 09:59 Sertraline HCl (Zoloft) 50 mg DAILY PO 02/25/21 09:00 03/01/21 18:30 DC 03/01/21 10:07 Olanzapine (ZyPREXA ZYDIS) 5 mg 1X ONCE PO 02/26/21 12:03 02/26/21 12:09 DC 02/26/21 12:25 Clonazepam (KlonoPIN) 0.5 mg DAILY PO 02/28/21 09:00 03/02/21 07:00 DC 03/01/21 10:07 Bupropion HCl (Wellbutrin Xl) 150 mg DAILY PO 03/02/21 09:00 03/08/21 15:46 DC 03/08/21 08:41 Levetiracetam (Keppra) 250 mg DAILY PO 03/03/21 09:00 03/21/21 08:46 Aripiprazole (Abilify) 5 mg DAILY PO 03/05/21 09:00 03/21/21 08:43 Ondansetron HCl (Zofran Odt) 4 mg PRN Q4HRS PRN PO NAUSEA/VOMITING 03/06/21 19:30 03/06/21 19:46 Potassium Chloride (Klor-Con) 30 meq BID PO 03/07/21 09:00 03/21/21 20:22 Divalproex Sodium (Depakote Er) 1,000 mg 1700 PO 03/08/21 17:00 03/12/21 00:01 DC 03/11/21 17:27 Duloxetine HCl (Cymbalta) 30 mg 0900,1700 PO 03/08/21 17:00 03/21/21 17:20 Sulfasalazine (Azulfidine) 500 mg 0900,1300,1700 PO 03/08/21 09:00 03/21/21 17:20 Bupropion HCl (Wellbutrin Xl) 300 mg DAILY PO 03/09/21 09:00 03/21/21 08:43 Potassium Chloride (Klor-Con) 40 meq 1630,1730 PO 03/08/21 16:30 03/08/21 18:04 DC 03/08/21 16:57 Potassium Chloride (Klor-Con) 40 meq 1700,1800 PO 03/08/21 17:15 03/08/21 18:04 DC 03/08/21 17:56 Divalproex Sodium (Depakote Sprinkles) 500 mg BID PO 03/12/21 09:00 03/21/21 20:22 Clotrimazole (Mycelex-7) 1 debra QHS VG 03/18/21 21:00 03/25/21 20:59 03/21/21 20:23 Dicyclomine HCl (Bentyl) 20 mg TID PO 03/18/21 21:00 03/21/21 20:22 Diphenoxylate HCl/ Atropine (Lomotil) 2 tab BID PO 03/18/21 21:00 03/21/21 20:21 I have reviewed the current psychotropics carefully including drug interactions. Risk benefit ratio favors no change other than as noted in my dictated progress note. Diagnosis: Problems: (1) Impulse control disorder, unspecified (2) Mild cognitive impairment (3) Anxiety disorder, unspecified (4) Bipolar affective, depress, sev w/ psych NITHIN STEVENS MD Mar 21, 2021 20:47
--- NOTE | 2021-03-21 22:26 | NUR ---
Pt located in the hallway this evening sitting in her broda chair. Pt noted to be more irritable and argumentative than previous evenings. Pt took her oxygen off numerous times. Pt very resistant to medications and was only compliant when told she would be getting medication to help with her Crohn's. Pt irritable when staff was applying cream to her reddened groin. Pt currently sleeping in bed.
[2021-03-22 06:06] VITALS: BP 107/64
--- NOTE | 2021-03-22 07:02 | PDOC ---
Exam Note: Napoleon Note: This note is a late entry for 03/20/2021 covers elements not covered in my initial note. Subjective: The patient was seen individually in the evening of 03/20/2021 with Cassie BARR, discussed and reviewed the chart. The patient slept 9-3/4 hours previous night. She has been doing better, more interactive, refused her medications earlier today, took it later. Review of Systems: Impaired ambulation in wheelchair. Shortness of breath on O2 supplements. No CV, , eye, ENT system symptoms on review other than above. Mental Status Exam: The patient is oriented to herself and situation. Speech is coherent. Abstraction fair. Computation impaired. Language function intact. Attention span short. Mood and affect withdrawn. No suicidal ideation. Laboratory Data: Reviewed. Impression: Bipolar disorder, depressed. Anxiety disorder unspecified. Impulse control disorder unspecified. Plan: Continue current psychotropics from initial note. Assessment: Vital Signs/I&O: Vital Signs Date Time Temp Pulse Resp B/P (MAP) Pulse Ox O2 Delivery O2 Flow Rate FiO2 03/22/21 06:06 99.1 88 20 107/64 (78) 92 3.0 03/21/21 15:18 Room Air I & O 03/21/21 03/21/21 03/22/21 14:59 22:59 06:59 Intake Total 720 ml 340 ml Balance 720 ml 340 ml Current Medications: Meds: Current Medications Medications (Trade) Dose Ordered Sig/Mya Route PRN Reason Start Time Stop Time Status Last Admin Dose Admin Acetaminophen (Tylenol) 650 mg PRN Q6HRS PRN PO MILD PAIN / TEMP > 100.3'F 02/16/21 15:45 03/04/21 09:21 DC 02/18/21 06:31 Multi-Ingredient Ointment (Analgesic [place]) 1 debra PRN QID PRN TP MUSCLE PAIN 02/16/21 15:45 03/04/21 09:21 DC Al Hydroxide/Mg Hydroxide (Mylanta Plus Xs) 15 ml PRN AFTMEALHC PRN PO DYSPEPSIA 02/16/21 15:45 03/04/21 22:05 Magnesium Hydroxide (Milk Of Magnesia) 2,400 mg PRN QHS PRN PO 1ST CHOICE CONSTIPATION 02/16/21 15:45 03/04/21 09:21 DC Acetaminophen (Tylenol) 1,000 mg Q6HRS PRN PO pain or fever 02/16/21 17:00 02/16/21 17:35 DC Acetaminophen (Tylenol) 500 mg Q4HRS PRN PO MILD PAIN 1-3 02/16/21 17:00 02/16/21 17:36 DC Bisacodyl (Dulcolax Tab) 5 mg PRN DAILY PRN PO 2ND CHOICE CONSTIPATION 02/16/21 17:00 03/04/21 09:21 DC Vitamin D (Vitamin D3) 50,000 unit WEEKLY PO 02/22/21 09:00 03/04/21 09:21 DC 02/22/21 07:16 Clonazepam (KlonoPIN) 0.5 mg BID PO 02/16/21 21:00 02/27/21 19:54 DC 02/27/21 10:11 Dicyclomine HCl (Bentyl) 20 mg TID PO 02/16/21 21:00 03/04/21 09:21 DC 03/03/21 21:07 Diphenoxylate HCl/ Atropine (Lomotil) 2 tab BID PO 02/16/21 21:00 03/04/21 09:21 DC 03/03/21 21:08 Divalproex Sodium (Depakote Er) 1,000 mg HS PO 02/16/21 21:00 03/07/21 20:15 DC 03/04/21 21:43 Duloxetine HCl (Cymbalta) 30 mg BID PO 02/16/21 21:00 03/07/21 20:15 DC 03/06/21 08:14 Fluticasone Propionate (Flonase) 2 spray DAILY NS 02/17/21 09:00 03/21/21 08:47 Furosemide (Lasix) 20 mg DAILY PO 02/17/21 09:00 03/04/21 09:21 DC 03/03/21 08:32 Gabapentin (Neurontin) 300 mg QID PO 02/16/21 17:00 03/21/21 20:21 Hydroxyurea (Hydrea) 1,000 mg DAILY PO 02/17/21 09:00 03/21/21 08:45 Levetiracetam (Keppra) 250 mg BID PO 02/16/21 21:00 03/02/21 14:48 DC 03/02/21 09:54 Lidocaine (Lidoderm) 1 patch DAILY TP 02/17/21 09:00 02/17/21 09:24 DC Al Hydroxide/Mg Hydroxide (Mylanta Plus Xs) 15 ml PRN AFTMEALHC PRN PO DYSPEPSIA 02/16/21 17:00 02/16/21 17:36 DC Mirabegron (Myrbetriq) 50 mg DAILY PO 02/17/21 09:00 03/04/21 09:21 DC 03/03/21 08:30 Nystatin (Nystop) 1 debra BID TP 02/16/21 21:00 03/21/21 20:23 Pantoprazole Sodium (Protonix) 40 mg DAILYAC PO 02/17/21 07:30 03/21/21 08:43 Potassium Chloride (Klor-Con) 40 meq DAILY PO 02/17/21 09:00 03/04/21 09:21 DC 03/03/21 08:32 Sulfasalazine (Azulfidine) 500 mg TID PO 02/16/21 21:00 03/07/21 20:15 DC 03/06/21 13:05 Trazodone HCl (Desyrel) 50 mg QHS PO 02/16/21 21:00 03/21/21 20:21 Non-Formulary Medication (Albuterol Sulfate (Albuterol Sulfate Conc Neb Soln)) 1 vial PRN Q4HRS PRN NEB SHORTNESS OF BREATH 02/16/21 17:00 02/16/21 17:49 DC Ascorbic Acid (Vitamin C) 1,000 mg DAILY PO 02/17/21 09:00 03/04/21 09:21 DC 03/03/21 08:34 Diltiazem HCl (Cardizem) 60 mg BID PO 02/16/21 21:00 03/21/21 20:21 Lactobacillus Rhamnosus (Culturelle) 1 cap DAILY PO 02/17/21 09:00 03/04/21 09:21 DC 03/03/21 08:32 Amylase/Lipase/ Protease (Zenpep 10,000) 1 cap TIDBFRMEAL PO 02/17/21 07:30 03/21/21 17:20 Non-Formulary Medication (Magnesium Hydroxide (Milk Of Magnesia)) 2,400 mg PRN DAILY PRN PO CONSTIPATION 02/16/21 17:00 02/16/21 17:37 DC Magnesium Oxide (Magnesium Oxide) 400 mg DAILY PO 02/17/21 09:00 03/04/21 09:21 DC 03/03/21 08:31 Non-Formulary Medication (Methyl Salicylate/ Menthol (Analgesic [place])) 1 debra PRN Q6HRS PRN TP MUSCLE PAIN 02/16/21 17:00 02/16/21 17:37 DC Non-Formulary Medication (Umeclidinium [place] (Incruse Ellipta)) 62.5 mcg DAILY IH 02/17/21 09:00 02/16/21 17:49 DC Non-Formulary Medication (Zinc Gluconate ) 50 mg DAILY PO 02/17/21 09:00 02/16/21 17:46 DC Albuterol/ Ipratropium (Duoneb) 3 ml RTQID NEB 02/16/21 20:00 02/17/21 19:52 DC Albuterol Sulfate (Ventolin) 2.5 mg PRN Q4HRS PRN NEB SHORTNESS OF BREATH 02/16/21 18:00 Influenza Virus Vaccine Quadrival (Flulaval Quad [id number] Syringe) 0.5 ml ONCE ONCE VAX IM 02/17/21 09:00 02/17/21 09:01 DC 02/17/21 09:21 Lidocaine (Lidoderm) 1 patch DAILY PRN TP pain 02/17/21 09:30 02/27/21 10:11 Albuterol/ Ipratropium (Combivent Respimat 20-100 Mcg) 1 puff RTQID INH 02/17/21 20:00 03/21/21 20:23 Sertraline HCl (Zoloft) 25 mg DAILY PO 02/22/21 09:00 02/24/21 10:00 DC 02/24/21 09:59 Sertraline HCl (Zoloft) 50 mg DAILY PO 02/25/21 09:00 03/01/21 18:30 DC 03/01/21 10:07 Olanzapine (ZyPREXA ZYDIS) 5 mg 1X ONCE PO 02/26/21 12:03 02/26/21 12:09 DC 02/26/21 12:25 Clonazepam (KlonoPIN) 0.5 mg DAILY PO 02/28/21 09:00 03/02/21 07:00 DC 03/01/21 10:07 Bupropion HCl (Wellbutrin Xl) 150 mg DAILY PO 03/02/21 09:00 03/08/21 15:46 DC 03/08/21 08:41 Levetiracetam (Keppra) 250 mg DAILY PO 03/03/21 09:00 03/21/21 08:46 Aripiprazole (Abilify) 5 mg DAILY PO 03/05/21 09:00 03/21/21 08:43 Ondansetron HCl (Zofran Odt) 4 mg PRN Q4HRS PRN PO NAUSEA/VOMITING 03/06/21 19:30 03/06/21 19:46 Potassium Chloride (Klor-Con) 30 meq BID PO 03/07/21 09:00 03/21/21 20:22 Divalproex Sodium (Depakote Er) 1,000 mg 1700 PO 03/08/21 17:00 03/12/21 00:01 DC 03/11/21 17:27 Duloxetine HCl (Cymbalta) 30 mg 0900,1700 PO 03/08/21 17:00 03/21/21 17:20 Sulfasalazine (Azulfidine) 500 mg 0900,1300,1700 PO 03/08/21 09:00 03/21/21 17:20 Bupropion HCl (Wellbutrin Xl) 300 mg DAILY PO 03/09/21 09:00 03/21/21 08:43 Potassium Chloride (Klor-Con) 40 meq 1630,1730 PO 03/08/21 16:30 03/08/21 18:04 DC 03/08/21 16:57 Potassium Chloride (Klor-Con) 40 meq 1700,1800 PO 03/08/21 17:15 03/08/21 18:04 DC 03/08/21 17:56 Divalproex Sodium (Depakote Sprinkles) 500 mg BID PO 03/12/21 09:00 03/21/21 20:22 Clotrimazole (Mycelex-7) 1 debra QHS VG 03/18/21 21:00 03/25/21 20:59 03/21/21 20:23 Dicyclomine HCl (Bentyl) 20 mg TID PO 03/18/21 21:00 03/21/21 20:22 Diphenoxylate HCl/ Atropine (Lomotil) 2 tab BID PO 03/18/21 21:00 03/21/21 20:21 I have reviewed the current psychotropics carefully including drug interactions. Risk benefit ratio favors no change other than as noted in my dictated progress note. Diagnosis: Problems: (1) Impulse control disorder, unspecified (2) Mild cognitive impairment (3) Anxiety disorder, unspecified (4) Bipolar 1 disorder, depressed NITHIN STEVENS MD Mar 22, 2021 07:02
--- NOTE | 2021-03-22 07:24 | PDOC ---
Exam Note: Napoleon Note: This note is a late entry for 03/21/2021 covers elements not covered in my initial note. Subjective: The patient was seen individually in the evening of 03/21/2021 with Milly BARR, discussed and reviewed the chart. The patient slept 7-1/2 hours previous night. She is compliant with her medications today. Appetite is better. She was more verbal, interactive. Her voice seemed stronger today. Review of Systems: Impaired ambulation in wheelchair. Shortness of breath on O2 supplements. No CV, , eye, ENT system symptoms on review. Mental Status Exam: The patient is reasonably oriented. Speech coherent. Abstraction fair. Computation impaired. Language function intact. Mood and affect remains withdrawn, anxious. Laboratory Data: Reviewed. Impression: Bipolar disorder, depressed. Anxiety disorder unspecified. Impulse control disorder unspecified. Plan: Continue current psychotropics from initial note. Assessment: Vital Signs/I&O: Vital Signs Date Time Temp Pulse Resp B/P (MAP) Pulse Ox O2 Delivery O2 Flow Rate FiO2 03/22/21 06:06 99.1 88 20 107/64 (78) 92 3.0 03/21/21 15:18 Room Air I & O 03/21/21 03/21/21 03/22/21 14:59 22:59 06:59 Intake Total 720 ml 340 ml Balance 720 ml 340 ml Current Medications: Meds: Current Medications Medications (Trade) Dose Ordered Sig/Mya Route PRN Reason Start Time Stop Time Status Last Admin Dose Admin Acetaminophen (Tylenol) 650 mg PRN Q6HRS PRN PO MILD PAIN / TEMP > 100.3'F 02/16/21 15:45 03/04/21 09:21 DC 02/18/21 06:31 Multi-Ingredient Ointment (Analgesic [place]) 1 debra PRN QID PRN TP MUSCLE PAIN 02/16/21 15:45 03/04/21 09:21 DC Al Hydroxide/Mg Hydroxide (Mylanta Plus Xs) 15 ml PRN AFTMEALHC PRN PO DYSPEPSIA 02/16/21 15:45 03/04/21 22:05 Magnesium Hydroxide (Milk Of Magnesia) 2,400 mg PRN QHS PRN PO 1ST CHOICE CONSTIPATION 02/16/21 15:45 03/04/21 09:21 DC Acetaminophen (Tylenol) 1,000 mg Q6HRS PRN PO pain or fever 02/16/21 17:00 02/16/21 17:35 DC Acetaminophen (Tylenol) 500 mg Q4HRS PRN PO MILD PAIN 1-3 02/16/21 17:00 02/16/21 17:36 DC Bisacodyl (Dulcolax Tab) 5 mg PRN DAILY PRN PO 2ND CHOICE CONSTIPATION 02/16/21 17:00 03/04/21 09:21 DC Vitamin D (Vitamin D3) 50,000 unit WEEKLY PO 02/22/21 09:00 03/04/21 09:21 DC 02/22/21 07:16 Clonazepam (KlonoPIN) 0.5 mg BID PO 02/16/21 21:00 02/27/21 19:54 DC 02/27/21 10:11 Dicyclomine HCl (Bentyl) 20 mg TID PO 02/16/21 21:00 03/04/21 09:21 DC 03/03/21 21:07 Diphenoxylate HCl/ Atropine (Lomotil) 2 tab BID PO 02/16/21 21:00 03/04/21 09:21 DC 03/03/21 21:08 Divalproex Sodium (Depakote Er) 1,000 mg HS PO 02/16/21 21:00 03/07/21 20:15 DC 03/04/21 21:43 Duloxetine HCl (Cymbalta) 30 mg BID PO 02/16/21 21:00 03/07/21 20:15 DC 03/06/21 08:14 Fluticasone Propionate (Flonase) 2 spray DAILY NS 02/17/21 09:00 03/21/21 08:47 Furosemide (Lasix) 20 mg DAILY PO 02/17/21 09:00 03/04/21 09:21 DC 03/03/21 08:32 Gabapentin (Neurontin) 300 mg QID PO 02/16/21 17:00 03/21/21 20:21 Hydroxyurea (Hydrea) 1,000 mg DAILY PO 02/17/21 09:00 03/21/21 08:45 Levetiracetam (Keppra) 250 mg BID PO 02/16/21 21:00 03/02/21 14:48 DC 03/02/21 09:54 Lidocaine (Lidoderm) 1 patch DAILY TP 02/17/21 09:00 02/17/21 09:24 DC Al Hydroxide/Mg Hydroxide (Mylanta Plus Xs) 15 ml PRN AFTMEALHC PRN PO DYSPEPSIA 02/16/21 17:00 02/16/21 17:36 DC Mirabegron (Myrbetriq) 50 mg DAILY PO 02/17/21 09:00 03/04/21 09:21 DC 03/03/21 08:30 Nystatin (Nystop) 1 debra BID TP 02/16/21 21:00 03/21/21 20:23 Pantoprazole Sodium (Protonix) 40 mg DAILYAC PO 02/17/21 07:30 03/21/21 08:43 Potassium Chloride (Klor-Con) 40 meq DAILY PO 02/17/21 09:00 03/04/21 09:21 DC 03/03/21 08:32 Sulfasalazine (Azulfidine) 500 mg TID PO 02/16/21 21:00 03/07/21 20:15 DC 03/06/21 13:05 Trazodone HCl (Desyrel) 50 mg QHS PO 02/16/21 21:00 03/21/21 20:21 Non-Formulary Medication (Albuterol Sulfate (Albuterol Sulfate Conc Neb Soln)) 1 vial PRN Q4HRS PRN NEB SHORTNESS OF BREATH 02/16/21 17:00 02/16/21 17:49 DC Ascorbic Acid (Vitamin C) 1,000 mg DAILY PO 02/17/21 09:00 03/04/21 09:21 DC 03/03/21 08:34 Diltiazem HCl (Cardizem) 60 mg BID PO 02/16/21 21:00 03/21/21 20:21 Lactobacillus Rhamnosus (Culturelle) 1 cap DAILY PO 02/17/21 09:00 03/04/21 09:21 DC 03/03/21 08:32 Amylase/Lipase/ Protease (Zenpep 10,000) 1 cap TIDBFRMEAL PO 02/17/21 07:30 03/21/21 17:20 Non-Formulary Medication (Magnesium Hydroxide (Milk Of Magnesia)) 2,400 mg PRN DAILY PRN PO CONSTIPATION 02/16/21 17:00 02/16/21 17:37 DC Magnesium Oxide (Magnesium Oxide) 400 mg DAILY PO 02/17/21 09:00 03/04/21 09:21 DC 03/03/21 08:31 Non-Formulary Medication (Methyl Salicylate/ Menthol (Analgesic [place])) 1 debra PRN Q6HRS PRN TP MUSCLE PAIN 02/16/21 17:00 02/16/21 17:37 DC Non-Formulary Medication (Umeclidinium [place] (Incruse Ellipta)) 62.5 mcg DAILY IH 02/17/21 09:00 02/16/21 17:49 DC Non-Formulary Medication (Zinc Gluconate ) 50 mg DAILY PO 02/17/21 09:00 02/16/21 17:46 DC Albuterol/ Ipratropium (Duoneb) 3 ml RTQID NEB 02/16/21 20:00 02/17/21 19:52 DC Albuterol Sulfate (Ventolin) 2.5 mg PRN Q4HRS PRN NEB SHORTNESS OF BREATH 02/16/21 18:00 Influenza Virus Vaccine Quadrival (Flulaval Quad [id number] Syringe) 0.5 ml ONCE ONCE VAX IM 02/17/21 09:00 02/17/21 09:01 DC 02/17/21 09:21 Lidocaine (Lidoderm) 1 patch DAILY PRN TP pain 02/17/21 09:30 02/27/21 10:11 Albuterol/ Ipratropium (Combivent Respimat 20-100 Mcg) 1 puff RTQID INH 02/17/21 20:00 03/21/21 20:23 Sertraline HCl (Zoloft) 25 mg DAILY PO 02/22/21 09:00 02/24/21 10:00 DC 02/24/21 09:59 Sertraline HCl (Zoloft) 50 mg DAILY PO 02/25/21 09:00 03/01/21 18:30 DC 03/01/21 10:07 Olanzapine (ZyPREXA ZYDIS) 5 mg 1X ONCE PO 02/26/21 12:03 02/26/21 12:09 DC 02/26/21 12:25 Clonazepam (KlonoPIN) 0.5 mg DAILY PO 02/28/21 09:00 03/02/21 07:00 DC 03/01/21 10:07 Bupropion HCl (Wellbutrin Xl) 150 mg DAILY PO 03/02/21 09:00 03/08/21 15:46 DC 03/08/21 08:41 Levetiracetam (Keppra) 250 mg DAILY PO 03/03/21 09:00 03/21/21 08:46 Aripiprazole (Abilify) 5 mg DAILY PO 03/05/21 09:00 03/21/21 08:43 Ondansetron HCl (Zofran Odt) 4 mg PRN Q4HRS PRN PO NAUSEA/VOMITING 03/06/21 19:30 03/06/21 19:46 Potassium Chloride (Klor-Con) 30 meq BID PO 03/07/21 09:00 03/21/21 20:22 Divalproex Sodium (Depakote Er) 1,000 mg 1700 PO 03/08/21 17:00 03/12/21 00:01 DC 03/11/21 17:27 Duloxetine HCl (Cymbalta) 30 mg 0900,1700 PO 03/08/21 17:00 03/21/21 17:20 Sulfasalazine (Azulfidine) 500 mg 0900,1300,1700 PO 03/08/21 09:00 03/21/21 17:20 Bupropion HCl (Wellbutrin Xl) 300 mg DAILY PO 03/09/21 09:00 03/21/21 08:43 Potassium Chloride (Klor-Con) 40 meq 1630,1730 PO 03/08/21 16:30 03/08/21 18:04 DC 03/08/21 16:57 Potassium Chloride (Klor-Con) 40 meq 1700,1800 PO 03/08/21 17:15 03/08/21 18:04 DC 03/08/21 17:56 Divalproex Sodium (Depakote Sprinkles) 500 mg BID PO 03/12/21 09:00 03/21/21 20:22 Clotrimazole (Mycelex-7) 1 debra QHS VG 03/18/21 21:00 03/25/21 20:59 03/21/21 20:23 Dicyclomine HCl (Bentyl) 20 mg TID PO 03/18/21 21:00 03/21/21 20:22 Diphenoxylate HCl/ Atropine (Lomotil) 2 tab BID PO 03/18/21 21:00 03/21/21 20:21 I have reviewed the current psychotropics carefully including drug interactions. Risk benefit ratio favors no change other than as noted in my dictated progress note. Diagnosis: Problems: (1) Impulse control disorder, unspecified (2) Mild cognitive impairment (3) Anxiety disorder, unspecified (4) Bipolar 1 disorder, depressed NITHIN STEVENS MD Mar 22, 2021 07:24
[2021-03-22] MEDS: sulfaSALAzine 500 MG TABLET PO SCH ×3 (08:28→17:14)
[2021-03-22] MEDS: HYDROXYUREA 500 MG CAPSULE PO SCH (08:28)
[2021-03-22] MEDS: PANTOPRAZOLE 40 MG TABLET. PO SCH (08:29)
[2021-03-22] MEDS: POTASSIUM CHLORIDE 10 MEQ TABLET.ER. PO SCH ×2 (08:29→19:59)
[2021-03-22] MEDS: GABAPENTIN 300 MG CAPSULE. PO SCH ×4 (08:30→19:59)
[2021-03-22] MEDS: buPROPion XL 300 MG TAB.ER.24H. PO SCH (08:30)
[2021-03-22] MEDS: dilTIAZem HCL 30 MG TABLET PO SCH ×2 (08:30→19:57)
[2021-03-22] MEDS: LIPASE/PROTEAS/AMYLAS 10/32/42 CAPSULE.DR. PO SCH ×3 (08:30→17:14)
[2021-03-22] MEDS: levETIRAcetam 250 MG TABLET PO SCH (08:30)
[2021-03-22] MEDS: DULoxetine HCL 30 MG CAPSULE.DR PO SCH ×2 (08:30→17:14)
[2021-03-22] MEDS: ARIPiprazole 5 MG TABLET PO SCH (08:30)
[2021-03-22] MEDS: DICYCLOMINE HCL 20 MG TABLET PO SCH ×3 (08:30→19:59)
[2021-03-22] MEDS: DIPHENOXYLATE/ATROPINE TABLET. PO SCH ×2 (08:30→19:58)
[2021-03-22] MEDS: DIVALPROEX 125 MG CAP.SPRINK PO SCH ×2 (08:30→20:00)
[2021-03-22] MEDS: FLUTICASONE 50MCG/NASAL SPRAY 16GM BOTTLE. NS SCH (08:31)
[2021-03-22] MEDS: IPRATROPIUM/ALBUTEROL 20/100mcg/INH INHALER. INH SCH ×4 (08:31→19:56)
[2021-03-22] MEDS: NYSTATIN TOPICAL POWDER 15GM BOTTLE. TP SCH ×2 (08:31→19:57)
--- NOTE | 2021-03-22 10:45 | NUR ---
Nursing note: Pt in dining room at time of AM med pass and assessment. She is compliant with meds crushed in applesauce and cooperative with assessment. She denies having any pain/concerns. Pt was placed in bed after she was cleaned up, and later as I walked down the ascencio and saw her trying to get herself out of bed. Pt put finger to lips and stated "Shhh...don't tell them." Pt was encouraged to ask for staff assistance when wanting to get out of bed as her broda chair was on the opposite side of the room. Pt was assisted back into her broda and is currently in the day room for group. Will continue to monitor.
[2021-03-22 15:39] VITALS: BP 137/64
[2021-03-22 15:59] LABS: BACTERIA,URINE 0 /HPF (0-FEW); BILIRUBIN,URINE NEG (NEG); CLARITY,URINE CLEAR; COLOR,URINE YELLOW; GLUCOSE,URINE NEG (NEG); NITRITE,URINE NEG (NEG); RBC,URINE 0 /HPF (0-2); SQUAMOUS EPITHELIAL CELL,UR OCC /LPF; UROBILINOGEN,URINE 0.2 mg/dL (0.2 mg/dL)
[2021-03-22] MEDS: CLOTRIMAZOLE 1% VAGINAL CREAM 45GM TUBE. VG SCH (19:57)
[2021-03-22] MEDS: traZODone 50 MG TABLET. PO SCH (19:58)
--- NOTE | 2021-03-22 21:04 | PDOC ---
Exam Note: Napoleon Note: Please also refer to the separate dictated note~for this date of service dictated separately.~Patient seen individually. Discussed the patient with Nursing staff reviewed the chart.~Reviewed interim history and current functioning. Reviewed vital signs,~Labs/ Radiology~and current medications noted below. Continue current treatment with the changes noted in the dictated addendum note Assessment: Vital Signs/I&O: Vital Signs Date Time Temp Pulse Resp B/P (MAP) Pulse Ox O2 Delivery O2 Flow Rate FiO2 03/22/21 19:57 86 137/64 03/22/21 15:39 98.4 18 96 03/22/21 06:06 3.0 03/21/21 15:18 Room Air I & O 03/21/21 03/21/21 03/22/21 15:00 23:00 07:00 Intake Total 720 ml 340 ml Balance 720 ml 340 ml Labs: Laboratory Tests Test 03/22/21 06:00 03/22/21 14:46 SARS-CoV-2 (PCR) Not detected (NOT DETECTD) Urine Collection Type Unknown Urine Color Yellow Urine Clarity Clear Urine pH 6.0 Urine Specific [place] 1.015 Urine Protein Neg (NEG-TRACE) Urine Glucose (UA) Neg mg/dL (NEG) Urine Ketones (Stick) Neg mg/dL (NEG) Urine Blood Trace (NEG) Urine Nitrite Neg (NEG) Urine Bilirubin Neg (NEG) Urine Urobilinogen Dipstick 0.2 mg/dL (0.2 mg/dL) Urine Leukocyte Esterase Trace (NEG) Urine RBC 0 /HPF (0-2) Urine WBC 1-4 /HPF (0-4) Urine Squamous Epithelial Cells Occ /LPF Urine Bacteria 0 /HPF (0-FEW) Current Medications: Meds: Laboratory Tests Test 03/22/21 06:00 03/22/21 14:46 Coronavirus (COVID-19)(PCR) Not detected Urine Collection Type Unknown Urine Color Yellow Urine Clarity Clear Urine pH 6.0 Urine Specific [place] 1.015 Urine Protein Neg Urine Glucose (UA) Neg mg/dL Urine Ketones (Stick) Neg mg/dL Urine Blood Trace Urine Nitrite Neg Urine Bilirubin Neg Urine Urobilinogen Dipstick 0.2 mg/dL Urine Leukocyte Esterase Trace Urine RBC 0 /HPF Urine WBC 1-4 /HPF Urine Squamous Epithelial Cells Occ /LPF Urine Bacteria 0 /HPF Current Medications Medications (Trade) Dose Ordered Sig/Mya Route PRN Reason Start Time Stop Time Status Last Admin Dose Admin Acetaminophen (Tylenol) 650 mg PRN Q6HRS PRN PO MILD PAIN / TEMP > 100.3'F 02/16/21 15:45 03/04/21 09:21 DC 02/18/21 06:31 Multi-Ingredient Ointment (Analgesic [place]) 1 debra PRN QID PRN TP MUSCLE PAIN 02/16/21 15:45 03/04/21 09:21 DC Al Hydroxide/Mg Hydroxide (Mylanta Plus Xs) 15 ml PRN AFTMEALHC PRN PO DYSPEPSIA 02/16/21 15:45 03/04/21 22:05 Magnesium Hydroxide (Milk Of Magnesia) 2,400 mg PRN QHS PRN PO 1ST CHOICE CONSTIPATION 02/16/21 15:45 03/04/21 09:21 DC Acetaminophen (Tylenol) 1,000 mg Q6HRS PRN PO pain or fever 02/16/21 17:00 02/16/21 17:35 DC Acetaminophen (Tylenol) 500 mg Q4HRS PRN PO MILD PAIN 1-3 02/16/21 17:00 02/16/21 17:36 DC Bisacodyl (Dulcolax Tab) 5 mg PRN DAILY PRN PO 2ND CHOICE CONSTIPATION 02/16/21 17:00 03/04/21 09:21 DC Vitamin D (Vitamin D3) 50,000 unit WEEKLY PO 02/22/21 09:00 03/04/21 09:21 DC 02/22/21 07:16 Clonazepam (KlonoPIN) 0.5 mg BID PO 02/16/21 21:00 02/27/21 19:54 DC 02/27/21 10:11 Dicyclomine HCl (Bentyl) 20 mg TID PO 02/16/21 21:00 03/04/21 09:21 DC 03/03/21 21:07 Diphenoxylate HCl/ Atropine (Lomotil) 2 tab BID PO 02/16/21 21:00 03/04/21 09:21 DC 03/03/21 21:08 Divalproex Sodium (Depakote Er) 1,000 mg HS PO 02/16/21 21:00 03/07/21 20:15 DC 03/04/21 21:43 Duloxetine HCl (Cymbalta) 30 mg BID PO 02/16/21 21:00 03/07/21 20:15 DC 03/06/21 08:14 Fluticasone Propionate (Flonase) 2 spray DAILY NS 02/17/21 09:00 03/22/21 08:31 Furosemide (Lasix) 20 mg DAILY PO 02/17/21 09:00 03/04/21 09:21 DC 03/03/21 08:32 Gabapentin (Neurontin) 300 mg QID PO 02/16/21 17:00 03/22/21 19:59 Hydroxyurea (Hydrea) 1,000 mg DAILY PO 02/17/21 09:00 03/22/21 08:28 Levetiracetam (Keppra) 250 mg BID PO 02/16/21 21:00 03/02/21 14:48 DC 03/02/21 09:54 Lidocaine (Lidoderm) 1 patch DAILY TP 02/17/21 09:00 02/17/21 09:24 DC Al Hydroxide/Mg Hydroxide (Mylanta Plus Xs) 15 ml PRN AFTMEALHC PRN PO DYSPEPSIA 02/16/21 17:00 02/16/21 17:36 DC Mirabegron (Myrbetriq) 50 mg DAILY PO 02/17/21 09:00 03/04/21 09:21 DC 03/03/21 08:30 Nystatin (Nystop) 1 debra BID TP 02/16/21 21:00 03/22/21 19:57 Pantoprazole Sodium (Protonix) 40 mg DAILYAC PO 02/17/21 07:30 03/22/21 08:29 Potassium Chloride (Klor-Con) 40 meq DAILY PO 02/17/21 09:00 03/04/21 09:21 DC 03/03/21 08:32 Sulfasalazine (Azulfidine) 500 mg TID PO 02/16/21 21:00 03/07/21 20:15 DC 03/06/21 13:05 Trazodone HCl (Desyrel) 50 mg QHS PO 02/16/21 21:00 03/22/21 19:58 Non-Formulary Medication (Albuterol Sulfate (Albuterol Sulfate Conc Neb Soln)) 1 vial PRN Q4HRS PRN NEB SHORTNESS OF BREATH 02/16/21 17:00 02/16/21 17:49 DC Ascorbic Acid (Vitamin C) 1,000 mg DAILY PO 02/17/21 09:00 03/04/21 09:21 DC 03/03/21 08:34 Diltiazem HCl (Cardizem) 60 mg BID PO 02/16/21 21:00 03/22/21 19:57 Lactobacillus Rhamnosus (Culturelle) 1 cap DAILY PO 02/17/21 09:00 03/04/21 09:21 DC 03/03/21 08:32 Amylase/Lipase/ Protease (Zenpep 10,000) 1 cap TIDBFRMEAL PO 02/17/21 07:30 03/22/21 17:14 Non-Formulary Medication (Magnesium Hydroxide (Milk Of Magnesia)) 2,400 mg PRN DAILY PRN PO CONSTIPATION 02/16/21 17:00 02/16/21 17:37 DC Magnesium Oxide (Magnesium Oxide) 400 mg DAILY PO 02/17/21 09:00 03/04/21 09:21 DC 03/03/21 08:31 Non-Formulary Medication (Methyl Salicylate/ Menthol (Analgesic [place])) 1 debra PRN Q6HRS PRN TP MUSCLE PAIN 02/16/21 17:00 02/16/21 17:37 DC Non-Formulary Medication (Umeclidinium [place] (Incruse Ellipta)) 62.5 mcg DAILY IH 02/17/21 09:00 02/16/21 17:49 DC Non-Formulary Medication (Zinc Gluconate ) 50 mg DAILY PO 02/17/21 09:00 02/16/21 17:46 DC Albuterol/ Ipratropium (Duoneb) 3 ml RTQID NEB 02/16/21 20:00 02/17/21 19:52 DC Albuterol Sulfate (Ventolin) 2.5 mg PRN Q4HRS PRN NEB SHORTNESS OF BREATH 02/16/21 18:00 Influenza Virus Vaccine Quadrival (Flulaval Quad Syringe) 0.5 ml ONCE ONCE VAX IM 02/17/21 09:00 02/17/21 09:01 DC 02/17/21 09:21 Lidocaine (Lidoderm) 1 patch DAILY PRN TP pain 02/17/21 09:30 02/27/21 10:11 Albuterol/ Ipratropium (Combivent Respimat 20-100 Mcg) 1 puff RTQID INH 02/17/21 20:00 03/22/21 19:56 Sertraline HCl (Zoloft) 25 mg DAILY PO 02/22/21 09:00 02/24/21 10:00 DC 02/24/21 09:59 Sertraline HCl (Zoloft) 50 mg DAILY PO 02/25/21 09:00 03/01/21 18:30 DC 03/01/21 10:07 Olanzapine (ZyPREXA ZYDIS) 5 mg 1X ONCE PO 02/26/21 12:03 02/26/21 12:09 DC 02/26/21 12:25 Clonazepam (KlonoPIN) 0.5 mg DAILY PO 02/28/21 09:00 03/02/21 07:00 DC 03/01/21 10:07 Bupropion HCl (Wellbutrin Xl) 150 mg DAILY PO 03/02/21 09:00 03/08/21 15:46 DC 03/08/21 08:41 Levetiracetam (Keppra) 250 mg DAILY PO 03/03/21 09:00 03/22/21 08:30 Aripiprazole (Abilify) 5 mg DAILY PO 03/05/21 09:00 03/22/21 08:30 Ondansetron HCl (Zofran Odt) 4 mg PRN Q4HRS PRN PO NAUSEA/VOMITING 03/06/21 19:30 03/06/21 19:46 Potassium Chloride (Klor-Con) 30 meq BID PO 03/07/21 09:00 03/22/21 19:59 Divalproex Sodium (Depakote Er) 1,000 mg 1700 PO 03/08/21 17:00 03/12/21 00:01 DC 03/11/21 17:27 Duloxetine HCl (Cymbalta) 30 mg 0900,1700 PO 03/08/21 17:00 03/22/21 17:14 Sulfasalazine (Azulfidine) 500 mg 0900,1300,1700 PO 03/08/21 09:00 03/22/21 17:14 Bupropion HCl (Wellbutrin Xl) 300 mg DAILY PO 03/09/21 09:00 03/22/21 08:30 Potassium Chloride (Klor-Con) 40 meq 1630,1730 PO 03/08/21 16:30 03/08/21 18:04 DC 03/08/21 16:57 Potassium Chloride (Klor-Con) 40 meq 1700,1800 PO 03/08/21 17:15 03/08/21 18:04 DC 03/08/21 17:56 Divalproex Sodium (Depakote Sprinkles) 500 mg BID PO 03/12/21 09:00 03/22/21 20:00 Clotrimazole (Mycelex-7) 1 debra QHS VG 03/18/21 21:00 03/25/21 20:59 03/22/21 19:57 Dicyclomine HCl (Bentyl) 20 mg TID PO 03/18/21 21:00 03/22/21 19:59 Diphenoxylate HCl/ Atropine (Lomotil) 2 tab BID PO 03/18/21 21:00 03/22/21 19:58 I have reviewed the current psychotropics carefully including drug interactions. Risk benefit ratio favors no change other than as noted in my dictated progress note. Diagnosis: Problems: (1) Impulse control disorder, unspecified (2) Mild cognitive impairment (3) Anxiety disorder, unspecified (4) Bipolar 1 disorder, depressed NITHIN STEVENS MD Mar 22, 2021 21:04
--- NOTE | 2021-03-22 22:56 | NUR ---
Patient is outside of the [facility] station on assumption of care, sitting in her Broda chair. She is flat, disorganized. Compliant with assessments and medications crushed in applesauce. She has had no agitated or attention seeking behaviors so far this shift. Denies SI. Denies any pain or discomfort. Patient appears to be sleeping comfortably at present time. Will continue to monitor.
[2021-03-23 06:14] VITALS: BP 111/69
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
[2021-03-23] MEDS: FLUTICASONE 50MCG/NASAL SPRAY 16GM BOTTLE. NS SCH (07:59)
[2021-03-23] MEDS: IPRATROPIUM/ALBUTEROL 20/100mcg/INH INHALER. INH SCH ×4 (08:00→20:23)
[2021-03-23] MEDS: levETIRAcetam 250 MG TABLET PO SCH (08:01)
[2021-03-23] MEDS: ARIPiprazole 5 MG TABLET PO SCH (08:01)
[2021-03-23] MEDS: GABAPENTIN 300 MG CAPSULE. PO SCH ×4 (08:01→20:24)
[2021-03-23] MEDS: dilTIAZem HCL 30 MG TABLET PO SCH ×2 (08:01→20:25)
[2021-03-23] MEDS: DIPHENOXYLATE/ATROPINE TABLET. PO SCH ×2 (08:01→20:24)
[2021-03-23] MEDS: POTASSIUM CHLORIDE 10 MEQ TABLET.ER. PO SCH ×2 (08:02→20:24)
[2021-03-23] MEDS: DIVALPROEX 125 MG CAP.SPRINK PO SCH ×2 (08:03→20:25)
[2021-03-23] MEDS: LIPASE/PROTEAS/AMYLAS 10/32/42 CAPSULE.DR. PO SCH ×3 (08:04→17:11)
[2021-03-23] MEDS: DICYCLOMINE HCL 20 MG TABLET PO SCH ×3 (08:04→20:24)
[2021-03-23] MEDS: PANTOPRAZOLE 40 MG TABLET. PO SCH (08:04)
[2021-03-23] MEDS: DULoxetine HCL 30 MG CAPSULE.DR PO SCH ×2 (08:04→17:11)
[2021-03-23] MEDS: buPROPion XL 300 MG TAB.ER.24H. PO SCH (08:04)
[2021-03-23] MEDS: sulfaSALAzine 500 MG TABLET PO SCH ×3 (08:04→17:11)
[2021-03-23] MEDS: NYSTATIN TOPICAL POWDER 15GM BOTTLE. TP SCH ×2 (08:06→20:26)
[2021-03-23] MEDS: HYDROXYUREA 500 MG CAPSULE PO SCH (08:06)
[2021-03-23 09:02] LABS: BASO % 1 % (0-3); EOS # 0.1 x10^3/uL (0.0-0.7); EOS % 2 % (0-3); HEMATOCRIT 38.9 % (36.0-47.0); HEMOGLOBIN 13.1 g/dL (12.0-15.5); LYMPH # 0.6 x10^3/uL (1.0-4.8); LYMPH % 13 % (24-48); MEAN CORPUSCULAR HEMOGLOBIN 37 pg (25-35); MEAN CORPUSCULAR HGB CONC 34 g/dL (31-37); MEAN CORPUSCULAR VOLUME 110 fL (79-100); MONO # 0.2 x10^3/uL (0.0-1.1); MONO % 5 % (0-9); NEUT # 3.7 x10^3uL (1.8-7.7); NEUT % 80 % (31-73); PLATELET COUNT 223 x10^3/uL (140-400); RED BLOOD COUNT 3.54 x10^6/uL (3.50-5.40); RED CELL DISTRIBUTION WIDTH 16.7 % (11.5-14.5); WHITE BLOOD COUNT 4.7 x10^3/uL (4.0-11.0)
[2021-03-23 09:09] LABS: ALBUMIN 2.7 g/dL (3.4-5.0); ALBUMIN/GLOBULIN RATIO 0.7 (1.0-1.7); CREATININE 0.6 mg/dL (0.6-1.0); GFR 99.1; POTASSIUM 3.4 mmol/L (3.5-5.1); TOTAL BILIRUBIN 0.4 mg/dL (0.2-1.0); TOTAL PROTEIN 6.6 g/dL (6.4-8.2)
--- NOTE | 2021-03-23 11:57 | NUR ---
WEEKLY ACTIVITY THERAPY NOTE Date of Admission:02/16/21 Date of AT Assessment: 02/17 Precipitating behaviors that initiated intake and admission:putting self on floor, combative towards staff, refusing O2, threw medications, expresses she wants to & removes O2 Goal aimed: increase socialization and engagement Initial Goal: Pt will participate in at least three individual or group Activity Therapy sessions per week Weekly progress towards goal: achieved, 3/3 Group participation level: 2 min, 1 mod Weekly highlights: assisted with [employer] leisure listing activity Saturday, answered a couple get to know you questions Saturday Behaviors observed: withdrawn to room, redirectable when asked to nasal cannula back in Saturday, restless Saturday morning and afternoon Plan: no change to goal Beneficial adaptations:no change to goal
--- NOTE | 2021-03-23 13:26 | NUR ---
Nursing note: Pt has been compliant with meds whole this shift and is cooperative with staff. Dr. Duffy notified of lab results, specifically AST, ALT and Alk Phos. New orders received to repeat labs on Saturday (03/25) with intent to consult Dr. Alvarado if the levels continue to remain elevated with the repeated lab work. She is currently resting quietly in bed. Will continue to monitor.
[2021-03-23 16:12] VITALS: BP 106/67
[2021-03-23] MEDS: traZODone 50 MG TABLET. PO SCH (20:24)
[2021-03-23] MEDS: CLOTRIMAZOLE 1% VAGINAL CREAM 45GM TUBE. VG SCH (20:45)
--- NOTE | 2021-03-23 21:04 | PDOC ---
Exam Note: Napoleon Note: Please also refer to the separate dictated note~for this date of service dictated separately.~Patient seen individually. Discussed the patient with Nursing staff reviewed the chart.~Reviewed interim history and current functioning. Reviewed vital signs,~Labs/ Radiology~and current medications noted below. Continue current treatment with the changes noted in the dictated addendum note Assessment: Vital Signs/I&O: Vital Signs Date Time Temp Pulse Resp B/P (MAP) Pulse Ox O2 Delivery O2 Flow Rate FiO2 03/23/21 20:25 74 106/67 03/23/21 16:12 98.4 18 96 Nasal Cannula 3.0 I & O 03/22/21 03/22/21 03/23/21 15:00 23:00 07:00 Intake Total 720 ml 460 ml Balance 720 ml 460 ml Labs: Laboratory Tests Test 03/23/21 08:37 White Blood Count 4.7 x10^3/uL (4.0-11.0) Red Blood Count 3.54 x10^6/uL (3.50-5.40) Hemoglobin 13.1 g/dL (12.0-15.5) Hematocrit 38.9 % (36.0-47.0) Mean Corpuscular Volume 110 fL (79-100) H Mean Corpuscular Hemoglobin 37 pg (25-35) H Mean Corpuscular Hemoglobin Concent 34 g/dL (31-37) Red Cell Distribution Width 16.7 % (11.5-14.5) H Platelet Count 223 x10^3/uL (140-400) Neutrophils (%) (Auto) 80 % (31-73) H Lymphocytes (%) (Auto) 13 % (24-48) L Monocytes (%) (Auto) 5 % (0-9) Eosinophils (%) (Auto) 2 % (0-3) Basophils (%) (Auto) 1 % (0-3) Neutrophils # (Auto) 3.7 x10^3uL (1.8-7.7) Lymphocytes # (Auto) 0.6 x10^3/uL (1.0-4.8) L Monocytes # (Auto) 0.2 x10^3/uL (0.0-1.1) Eosinophils # (Auto) 0.1 x10^3/uL (0.0-0.7) Basophils # (Auto) 0.0 x10^3/uL (0.0-0.2) Sodium Level 136 mmol/L (136-145) Potassium Level 3.4 mmol/L (3.5-5.1) L Chloride Level 98 mmol/L (98-107) Carbon Dioxide Level 32 mmol/L (21-32) Anion Gap 6 (6-14) Blood Urea Nitrogen 8 mg/dL (7-20) Creatinine 0.6 mg/dL (0.6-1.0) Estimated GFR (Cockcroft-Gault) 99.1 BUN/Creatinine Ratio 13 (6-20) Glucose Level 207 mg/dL (70-99) H Calcium Level 9.0 mg/dL (8.5-10.1) Total Bilirubin 0.4 mg/dL (0.2-1.0) Aspartate Amino Transferase (AST) 89 U/L (15-37) H Alanine Aminotransferase (ALT) 119 U/L (14-59) H Alkaline Phosphatase 303 U/L (46-116) H Total Protein 6.6 g/dL (6.4-8.2) Albumin 2.7 g/dL (3.4-5.0) L Albumin/Globulin Ratio 0.7 (1.0-1.7) L Current Medications: Meds: Laboratory Tests Test 03/23/21 08:37 White Blood Count 4.7 x10^3/uL Red Blood Count 3.54 x10^6/uL Hemoglobin 13.1 g/dL Hematocrit 38.9 % Mean Corpuscular Volume 110 fL Mean Corpuscular Hemoglobin 37 pg Mean Corpuscular Hemoglobin Concent 34 g/dL Red Cell Distribution Width 16.7 % Platelet Count 223 x10^3/uL Neutrophils (%) (Auto) 80 % Lymphocytes (%) (Auto) 13 % Monocytes (%) (Auto) 5 % Eosinophils (%) (Auto) 2 % Basophils (%) (Auto) 1 % Neutrophils # (Auto) 3.7 x10^3uL Lymphocytes # (Auto) 0.6 x10^3/uL Monocytes # (Auto) 0.2 x10^3/uL Eosinophils # (Auto) 0.1 x10^3/uL Basophils # (Auto) 0.0 x10^3/uL Sodium Level 136 mmol/L Potassium Level 3.4 mmol/L Chloride Level 98 mmol/L Carbon Dioxide Level 32 mmol/L Anion Gap 6 Blood Urea Nitrogen 8 mg/dL Creatinine 0.6 mg/dL Estimated GFR (Cockcroft-Gault) 99.1 BUN/Creatinine Ratio 13 Glucose Level 207 mg/dL Calcium Level 9.0 mg/dL Total Bilirubin 0.4 mg/dL Aspartate Amino Transf (AST/SGOT) 89 U/L Alanine Aminotransferase (ALT/SGPT) 119 U/L Alkaline Phosphatase 303 U/L Total Protein 6.6 g/dL Albumin 2.7 g/dL Albumin/Globulin Ratio 0.7 Current Medications Medications (Trade) Dose Ordered Sig/Mya Route PRN Reason Start Time Stop Time Status Last Admin Dose Admin Acetaminophen (Tylenol) 650 mg PRN Q6HRS PRN PO MILD PAIN / TEMP > 100.3'F 02/16/21 15:45 03/04/21 09:21 DC 02/18/21 06:31 Multi-Ingredient Ointment (Analgesic [place]) 1 debra PRN QID PRN TP MUSCLE PAIN 02/16/21 15:45 03/04/21 09:21 DC Al Hydroxide/Mg Hydroxide (Mylanta Plus Xs) 15 ml PRN AFTMEALHC PRN PO DYSPEPSIA 02/16/21 15:45 03/04/21 22:05 Magnesium Hydroxide (Milk Of Magnesia) 2,400 mg PRN QHS PRN PO 1ST CHOICE CONSTIPATION 02/16/21 15:45 03/04/21 09:21 DC Acetaminophen (Tylenol) 1,000 mg Q6HRS PRN PO pain or fever 02/16/21 17:00 02/16/21 17:35 DC Acetaminophen (Tylenol) 500 mg Q4HRS PRN PO MILD PAIN 1-3 02/16/21 17:00 02/16/21 17:36 DC Bisacodyl (Dulcolax Tab) 5 mg PRN DAILY PRN PO 2ND CHOICE CONSTIPATION 02/16/21 17:00 03/04/21 09:21 DC Vitamin D (Vitamin D3) 50,000 unit WEEKLY PO 02/22/21 09:00 03/04/21 09:21 DC 02/22/21 07:16 Clonazepam (KlonoPIN) 0.5 mg BID PO 02/16/21 21:00 02/27/21 19:54 DC 02/27/21 10:11 Dicyclomine HCl (Bentyl) 20 mg TID PO 02/16/21 21:00 03/04/21 09:21 DC 03/03/21 21:07 Diphenoxylate HCl/ Atropine (Lomotil) 2 tab BID PO 02/16/21 21:00 03/04/21 09:21 DC 03/03/21 21:08 Divalproex Sodium (Depakote Er) 1,000 mg HS PO 02/16/21 21:00 03/07/21 20:15 DC 03/04/21 21:43 Duloxetine HCl (Cymbalta) 30 mg BID PO 02/16/21 21:00 03/07/21 20:15 DC 03/06/21 08:14 Fluticasone Propionate (Flonase) 2 spray DAILY NS 02/17/21 09:00 03/23/21 07:59 Furosemide (Lasix) 20 mg DAILY PO 02/17/21 09:00 03/04/21 09:21 DC 03/03/21 08:32 Gabapentin (Neurontin) 300 mg QID PO 02/16/21 17:00 03/23/21 20:24 Hydroxyurea (Hydrea) 1,000 mg DAILY PO 02/17/21 09:00 03/23/21 08:06 Levetiracetam (Keppra) 250 mg BID PO 02/16/21 21:00 03/02/21 14:48 DC 03/02/21 09:54 Lidocaine (Lidoderm) 1 patch DAILY TP 02/17/21 09:00 02/17/21 09:24 DC Al Hydroxide/Mg Hydroxide (Mylanta Plus Xs) 15 ml PRN AFTMEALHC PRN PO DYSPEPSIA 02/16/21 17:00 02/16/21 17:36 DC Mirabegron (Myrbetriq) 50 mg DAILY PO 02/17/21 09:00 03/04/21 09:21 DC 03/03/21 08:30 Nystatin (Nystop) 1 debra BID TP 02/16/21 21:00 03/23/21 20:26 Pantoprazole Sodium (Protonix) 40 mg DAILYAC PO 02/17/21 07:30 03/23/21 08:04 Potassium Chloride (Klor-Con) 40 meq DAILY PO 02/17/21 09:00 03/04/21 09:21 DC 03/03/21 08:32 Sulfasalazine (Azulfidine) 500 mg TID PO 02/16/21 21:00 03/07/21 20:15 DC 03/06/21 13:05 Trazodone HCl (Desyrel) 50 mg QHS PO 02/16/21 21:00 03/23/21 20:24 Non-Formulary Medication (Albuterol Sulfate (Albuterol Sulfate Conc Neb Soln)) 1 vial PRN Q4HRS PRN NEB SHORTNESS OF BREATH 02/16/21 17:00 02/16/21 17:49 DC Ascorbic Acid (Vitamin C) 1,000 mg DAILY PO 02/17/21 09:00 03/04/21 09:21 DC 03/03/21 08:34 Diltiazem HCl (Cardizem) 60 mg BID PO 02/16/21 21:00 03/23/21 20:25 Lactobacillus Rhamnosus (Culturelle) 1 cap DAILY PO 02/17/21 09:00 03/04/21 09:21 DC 03/03/21 08:32 Amylase/Lipase/ Protease (Zenpep 10,000) 1 cap TIDBFRMEAL PO 02/17/21 07:30 03/23/21 17:11 Non-Formulary Medication (Magnesium Hydroxide (Milk Of Magnesia)) 2,400 mg PRN DAILY PRN PO CONSTIPATION 02/16/21 17:00 02/16/21 17:37 DC Magnesium Oxide (Magnesium Oxide) 400 mg DAILY PO 02/17/21 09:00 03/04/21 09:21 DC 03/03/21 08:31 Non-Formulary Medication (Methyl Salicylate/ Menthol (Analgesic [place])) 1 debra PRN Q6HRS PRN TP MUSCLE PAIN 02/16/21 17:00 02/16/21 17:37 DC Non-Formulary Medication (Umeclidinium [place] (Incruse Ellipta)) 62.5 mcg DAILY IH 02/17/21 09:00 02/16/21 17:49 DC Non-Formulary Medication (Zinc Gluconate ) 50 mg DAILY PO 02/17/21 09:00 02/16/21 17:46 DC Albuterol/ Ipratropium (Duoneb) 3 ml RTQID NEB 10/7/21 20:00 02/17/21 19:52 DC Albuterol Sulfate (Ventolin) 2.5 mg PRN Q4HRS PRN NEB SHORTNESS OF BREATH 02/16/21 18:00 Influenza Virus Vaccine Quadrival (Flulaval Quad [id number] Syringe) 0.5 ml ONCE ONCE VAX IM 02/17/21 09:00 02/17/21 09:01 DC 02/17/21 09:21 Lidocaine (Lidoderm) 1 patch DAILY PRN TP pain 02/17/21 09:30 02/27/21 10:11 Albuterol/ Ipratropium (Combivent Respimat 20-100 Mcg) 1 puff RTQID INH 02/17/21 20:00 03/23/21 20:23 Sertraline HCl (Zoloft) 25 mg DAILY PO 02/22/21 09:00 02/24/21 10:00 DC 02/24/21 09:59 Sertraline HCl (Zoloft) 50 mg DAILY PO 02/25/21 09:00 03/01/21 18:30 DC 03/01/21 10:07 Olanzapine (ZyPREXA ZYDIS) 5 mg 1X ONCE PO 02/26/21 12:03 02/26/21 12:09 DC 02/26/21 12:25 Clonazepam (KlonoPIN) 0.5 mg DAILY PO 02/28/21 09:00 03/02/21 07:00 DC 03/01/21 10:07 Bupropion HCl (Wellbutrin Xl) 150 mg DAILY PO 03/02/21 09:00 03/08/21 15:46 DC 03/08/21 08:41 Levetiracetam (Keppra) 250 mg DAILY PO 03/03/21 09:00 03/23/21 08:01 Aripiprazole (Abilify) 5 mg DAILY PO 03/05/21 09:00 03/23/21 08:01 Ondansetron HCl (Zofran Odt) 4 mg PRN Q4HRS PRN PO NAUSEA/VOMITING 03/06/21 19:30 03/06/21 19:46 Potassium Chloride (Klor-Con) 30 meq BID PO 03/07/21 09:00 11/11/21 20:24 Divalproex Sodium (Depakote Er) 1,000 mg 1700 PO 03/08/21 17:00 03/12/21 00:01 DC 03/11/21 17:27 Duloxetine HCl (Cymbalta) 30 mg 0900,1700 PO 03/08/21 17:00 03/23/21 17:11 Sulfasalazine (Azulfidine) 500 mg 0900,1300,1700 PO 03/08/21 09:00 03/23/21 17:11 Bupropion HCl (Wellbutrin Xl) 300 mg DAILY PO 03/09/21 09:00 03/23/21 08:04 Potassium Chloride (Klor-Con) 40 meq 1630,1730 PO 03/08/21 16:30 03/08/21 18:04 DC 03/08/21 16:57 Potassium Chloride (Klor-Con) 40 meq 1700,1800 PO 03/08/21 17:15 03/08/21 18:04 DC 03/08/21 17:56 Divalproex Sodium (Depakote Sprinkles) 500 mg BID PO 03/12/21 09:00 03/23/21 20:25 Clotrimazole (Mycelex-7) 1 debra QHS VG 03/18/21 21:00 03/25/21 20:59 03/23/21 20:45 Dicyclomine HCl (Bentyl) 20 mg TID PO 03/18/21 21:00 03/23/21 20:24 Diphenoxylate HCl/ Atropine (Lomotil) 2 tab BID PO 03/18/21 21:00 03/23/21 20:24 I have reviewed the current psychotropics carefully including drug interactions. Risk benefit ratio favors no change other than as noted in my dictated progress note. Diagnosis: Problems: (1) Impulse control disorder, unspecified (2) Mild cognitive impairment (3) Anxiety disorder, unspecified (4) Bipolar 1 disorder, depressed NITHIN STEVENS MD Mar 23, 2021 21:04
--- NOTE | 2021-03-24 04:18 | NUR ---
Nursing Note The patient was located in her room for her assessment and medication pass. medication taken whole but the patient was paranoid about taking medications and confused her inhaler for a pipe. The patient was pleasant during interactions and was alert to name only. Currently awake laying in bed.
[2021-03-24 05:57] VITALS: BP 105/67
--- NOTE | 2021-03-24 07:21 | PDOC ---
Exam Note: Napoleon Note: This note is a late entry for 03/23/2021 covers elements not covered in my initial note. Subjective: The patient was reviewed at treatment team meeting individually in the morning on 03/23/2021 with Lety Farley, Rosalva Hutton, and Archana Dillard (social services assistant), Bessy, activity therapy and Cassie BARR, discussed and reviewed the chart. The patient slept 5-3/4 hours previous night. Average sleep 7-1/2 hours. Appetite is 75%. Last night she did better than during the day when she was quite irritable, labile. She was calling out for her dadsri Musa earlier today. She has attended 3 groups in the past week. She needs prompting to engage in groups. She was quite restless yesterday, in and out of the chair. Review of Systems: Impaired ambulation in wheelchair. Shortness of breath on O2 supplements. No CV, , eye, ENT system symptoms on review. Mental Status Exam: The patient is oriented to herself and situation. I met wi th her in her room shortly after she had had a shower. She was more verbal, animated, somewhat brighter in her affect and subjectively stated her mood was better. Speech coherent. Abstraction fair. Computation impaired. Language function intact. Mood and affect somewhat withdrawn. No suicidal or homicidal ideation. Attention span is somewhat distractible. Laboratory Data: Reviewed. Urine has reflex to culture and results are awaited. AST 89 and ALT 119, alkaline phosphatase 303. Impression: Bipolar disorder, depressed. Anxiety disorder unspecified. Impulse control disorder unspecified. Plan: We will repeat labs on 03/25 and we will also consult Dr. Alvarado to see whether Keppra needs to be adjusted and in case we need to stop the Depakote for the raised liver enzymes whether anything else would be needed for seizures. Psychological testing for capacity to make decision is being requested by Dr. Morley. Also discussed with Kyle BARR in the evening. Continue psychotropics unchanged for now. Assessment: Vital Signs/I&O: Vital Signs Date Time Temp Pulse Resp B/P (MAP) Pulse Ox O2 Delivery O2 Flow Rate FiO2 03/24/21 05:57 97.3 79 18 105/67 (80) 92 Nasal Cannula 2.0 I & O 03/23/21 03/23/2121 15:00 23:00 07:00 Intake Total 960 ml 480 ml Balance 960 ml 480 ml Labs: Laboratory Tests Test 03/23/21 08:37 White Blood Count 4.7 x10^3/uL (4.0-11.0) Red Blood Count 3.54 x10^6/uL (3.50-5.40) Hemoglobin 13.1 g/dL (12.0-15.5) Hematocrit 38.9 % (36.0-47.0) Mean Corpuscular Volume 110 fL (79-100) H Mean Corpuscular Hemoglobin 37 pg (25-35) H Mean Corpuscular Hemoglobin Concent 34 g/dL (31-37) Red Cell Distribution Width 16.7 % (11.5-14.5) H Platelet Count 223 x10^3/uL (140-400) Neutrophils (%) (Auto) 80 % (31-73) H Lymphocytes (%) (Auto) 13 % (24-48) L Monocytes (%) (Auto) 5 % (0-9) Eosinophils (%) (Auto) 2 % (0-3) Basophils (%) (Auto) 1 % (0-3) Neutrophils # (Auto) 3.7 x10^3uL (1.8-7.7) Lymphocytes # (Auto) 0.6 x10^3/uL (1.0-4.8) L Monocytes # (Auto) 0.2 x10^3/uL (0.0-1.1) Eosinophils # (Auto) 0.1 x10^3/uL (0.0-0.7) Basophils # (Auto) 0.0 x10^3/uL (0.0-0.2) Sodium Level 136 mmol/L (136-145) Potassium Level 3.4 mmol/L (3.5-5.1) L Chloride Level 98 mmol/L (98-107) Carbon Dioxide Level 32 mmol/L (21-32) Anion Gap 6 (6-14) Blood Urea Nitrogen 8 mg/dL (7-20) Creatinine 0.6 mg/dL (0.6-1.0) Estimated GFR (Cockcroft-Gault) 99.1 BUN/Creatinine Ratio 13 (6-20) Glucose Level 207 mg/dL (70-99) H Calcium Level 9.0 mg/dL (8.5-10.1) Total Bilirubin 0.4 mg/dL (0.2-1.0) Aspartate Amino Transferase (AST) 89 U/L (15-37) H Alanine Aminotransferase (ALT) 119 U/L (14-59) H Alkaline Phosphatase 303 U/L (46-116) H Total Protein 6.6 g/dL (6.4-8.2) Albumin 2.7 g/dL (3.4-5.0) L Albumin/Globulin Ratio 0.7 (1.0-1.7) L Current Medications: Meds: Laboratory Tests Test 03/23/21 08:37 White Blood Count 4.7 x10^3/uL Red Blood Count 3.54 x10^6/uL Hemoglobin 13.1 g/dL Hematocrit 38.9 % Mean Corpuscular Volume 110 fL Mean Corpuscular Hemoglobin 37 pg Mean Corpuscular Hemoglobin Concent 34 g/dL Red Cell Distribution Width 16.7 % Platelet Count 223 x10^3/uL Neutrophils (%) (Auto) 80 % Lymphocytes (%) (Auto) 13 % Monocytes (%) (Auto) 5 % Eosinophils (%) (Auto) 2 % Basophils (%) (Auto) 1 % Neutrophils # (Auto) 3.7 x10^3uL Lymphocytes # (Auto) 0.6 x10^3/uL Monocytes # (Auto) 0.2 x10^3/uL Eosinophils # (Auto) 0.1 x10^3/uL Basophils # (Auto) 0.0 x10^3/uL Sodium Level 136 mmol/L Potassium Level 3.4 mmol/L Chloride Level 98 mmol/L Carbon Dioxide Level 32 mmol/L Anion Gap 6 Blood Urea Nitrogen 8 mg/dL Creatinine 0.6 mg/dL Estimated GFR (Cockcroft-Gault) 99.1 BUN/Creatinine Ratio 13 Glucose Level 207 mg/dL Calcium Level 9.0 mg/dL Total Bilirubin 0.4 mg/dL Aspartate Amino Transf (AST/SGOT) 89 U/L Alanine Aminotransferase (ALT/SGPT) 119 U/L Alkaline Phosphatase 303 U/L Total Protein 6.6 g/dL Albumin 2.7 g/dL Albumin/Globulin Ratio 0.7 Current Medications Medications (Trade) Dose Ordered Sig/Mya Route PRN Reason Start Time Stop Time Status Last Admin Dose Admin Acetaminophen (Tylenol) 650 mg PRN Q6HRS PRN PO MILD PAIN / TEMP > 100.3'F 02/16/21 15:45 03/04/21 09:21 DC 02/18/21 06:31 Multi-Ingredient Ointment (Analgesic [place]) 1 debra PRN QID PRN TP MUSCLE PAIN 02/16/21 15:45 03/04/21 09:21 DC Al Hydroxide/Mg Hydroxide (Mylanta Plus Xs) 15 ml PRN AFTMEALHC PRN PO DYSPEPSIA 02/16/21 15:45 03/04/21 22:05 Magnesium Hydroxide (Milk Of Magnesia) 2,400 mg PRN QHS PRN PO 1ST CHOICE CONSTIPATION 02/16/21 15:45 03/04/21 09:21 DC Acetaminophen (Tylenol) 1,000 mg Q6HRS PRN PO pain or fever 02/16/21 17:00 02/16/21 17:35 DC Acetaminophen (Tylenol) 500 mg Q4HRS PRN PO MILD PAIN 1-3 02/16/21 17:00 02/16/21 17:36 DC Bisacodyl (Dulcolax Tab) 5 mg PRN DAILY PRN PO 2ND CHOICE CONSTIPATION 02/16/21 17:00 03/04/21 09:21 DC Vitamin D (Vitamin D3) 50,000 unit WEEKLY PO 02/22/21 09:00 03/04/21 09:21 DC 02/22/21 07:16 Clonazepam (KlonoPIN) 0.5 mg BID PO 02/16/21 21:00 02/27/21 19:54 DC 02/27/21 10:11 Dicyclomine HCl (Bentyl) 20 mg TID PO 02/16/21 21:00 03/04/21 09:21 DC 03/03/21 21:07 Diphenoxylate HCl/ Atropine (Lomotil) 2 tab BID PO 02/16/21 21:00 03/04/21 09:21 DC 03/03/21 21:08 Divalproex Sodium (Depakote Er) 1,000 mg HS PO 02/16/21 21:00 03/07/21 20:15 DC 03/04/21 21:43 Duloxetine HCl (Cymbalta) 30 mg BID PO 02/16/21 21:00 03/07/21 20:15 DC 03/06/21 08:14 Fluticasone Propionate (Flonase) 2 spray DAILY NS 02/17/21 09:00 03/23/21 07:59 Furosemide (Lasix) 20 mg DAILY PO 02/17/21 09:00 03/04/21 09:21 DC 03/03/21 08:32 Gabapentin (Neurontin) 300 mg QID PO 02/16/21 17:00 03/23/21 20:24 Hydroxyurea (Hydrea) 1,000 mg DAILY PO 02/17/21 09:00 03/23/21 08:06 Levetiracetam (Keppra) 250 mg BID PO 02/16/21 21:00 03/02/21 14:48 DC 03/02/21 09:54 Lidocaine (Lidoderm) 1 patch DAILY TP 02/17/21 09:00 02/17/21 09:24 DC Al Hydroxide/Mg Hydroxide (Mylanta Plus Xs) 15 ml PRN AFTMEALHC PRN PO DYSPEPSIA 02/16/21 17:00 02/16/21 17:36 DC Mirabegron (Myrbetriq) 50 mg DAILY PO 02/17/21 09:00 03/04/21 09:21 DC 03/03/21 08:30 Nystatin (Nystop) 1 debra BID TP 02/16/21 21:00 03/23/21 20:26 Pantoprazole Sodium (Protonix) 40 mg DAILYAC PO 02/17/21 07:30 03/23/21 08:04 Potassium Chloride (Klor-Con) 40 meq DAILY PO 02/17/21 09:00 03/04/21 09:21 DC 03/03/21 08:32 Sulfasalazine (Azulfidine) 500 mg TID PO 02/16/21 21:00 03/07/21 20:15 DC 03/06/21 13:05 Trazodone HCl (Desyrel) 50 mg QHS PO 02/16/21 21:00 03/23/21 20:24 Non-Formulary Medication (Albuterol Sulfate (Albuterol Sulfate Conc Neb Soln)) 1 vial PRN Q4HRS PRN NEB SHORTNESS OF BREATH 02/16/21 17:00 02/16/21 17:49 DC Ascorbic Acid (Vitamin C) 1,000 mg DAILY PO 02/17/21 09:00 03/04/21 09:21 DC 03/03/21 08:34 Diltiazem HCl (Cardizem) 60 mg BID PO 02/16/21 21:00 03/23/21 20:25 Lactobacillus Rhamnosus (Culturelle) 1 cap DAILY PO 02/17/21 09:00 03/04/21 09:21 DC 03/03/21 08:32 Amylase/Lipase/ Protease (Zenpep 10,000) 1 cap TIDBFRMEAL PO 02/17/21 07:30 03/23/21 17:11 Non-Formulary Medication (Magnesium Hydroxide (Milk Of Magnesia)) 2,400 mg PRN DAILY PRN PO CONSTIPATION 02/16/21 17:00 02/16/21 17:37 DC Magnesium Oxide (Magnesium Oxide) 400 mg DAILY PO 02/17/21 09:00 03/04/21 09:21 DC 03/03/21 08:31 Non-Formulary Medication (Methyl Salicylate/ Menthol (Analgesic [place])) 1 debra PRN Q6HRS PRN TP MUSCLE PAIN 02/16/21 17:00 02/16/21 17:37 DC Non-Formulary Medication (Umeclidinium [place] (Incruse Ellipta)) 62.5 mcg DAILY IH 02/17/21 09:00 02/16/21 17:49 DC Non-Formulary Medication (Zinc Gluconate ) 50 mg DAILY PO 02/17/21 09:00 02/16/21 17:46 DC Albuterol/ Ipratropium (Duoneb) 3 ml RTQID NEB 02/16/21 20:00 02/17/21 19:52 DC Albuterol Sulfate (Ventolin) 2.5 mg PRN Q4HRS PRN NEB SHORTNESS OF BREATH 02/16/21 18:00 Influenza Virus Vaccine Quadrival (Flulaval Quad Syringe) 0.5 ml ONCE ONCE VAX IM 02/17/21 09:00 02/17/21 09:01 DC 02/17/21 09:21 Lidocaine (Lidoderm) 1 patch DAILY PRN TP pain 02/17/21 09:30 02/27/21 10:11 Albuterol/ Ipratropium (Combivent Respimat 20-100 Mcg) 1 puff RTQID INH 02/17/21 20:00 03/23/21 20:23 Sertraline HCl (Zoloft) 25 mg DAILY PO 02/22/21 09:00 02/24/21 10:00 DC 02/24/21 09:59 Sertraline HCl (Zoloft) 50 mg DAILY PO 02/25/21 09:00 03/01/21 18:30 DC 03/01/21 10:07 Olanzapine (ZyPREXA ZYDIS) 5 mg 1X ONCE PO 02/26/21 12:03 02/26/21 12:09 DC 02/26/21 12:25 Clonazepam (KlonoPIN) 0.5 mg DAILY PO 02/28/21 09:00 03/02/21 07:00 DC 03/01/21 10:07 Bupropion HCl (Wellbutrin Xl) 150 mg DAILY PO 03/02/21 09:00 03/08/21 15:46 DC 03/08/21 08:41 Levetiracetam (Keppra) 250 mg DAILY PO 03/03/21 09:00 03/23/21 08:01 Aripiprazole (Abilify) 5 mg DAILY PO 03/05/21 09:00 03/23/21 08:01 Ondansetron HCl (Zofran Odt) 4 mg PRN Q4HRS PRN PO NAUSEA/VOMITING 03/06/21 19:30 03/06/21 19:46 Potassium Chloride (Klor-Con) 30 meq BID PO 03/07/21 09:00 03/23/21 20:24 Divalproex Sodium (Depakote Er) 1,000 mg 1700 PO 03/08/21 17:00 03/12/21 00:01 DC 03/11/21 17:27 Duloxetine HCl (Cymbalta) 30 mg 0900,1700 PO 03/08/21 17:00 03/23/21 17:11 Sulfasalazine (Azulfidine) 500 mg 0900,1300,1700 PO 03/08/21 09:00 03/23/21 17:11 Bupropion HCl (Wellbutrin Xl) 300 mg DAILY PO 03/09/21 09:00 03/23/21 08:04 Potassium Chloride (Klor-Con) 40 meq 1630,1730 PO 03/08/21 16:30 03/08/21 18:04 DC 03/08/21 16:57 Potassium Chloride (Klor-Con) 40 meq 1700,1800 PO 03/08/21 17:15 03/08/21 18:04 DC 03/08/21 17:56 Divalproex Sodium (Depakote Sprinkles) 500 mg BID PO 03/12/21 09:00 03/23/21 20:25 Clotrimazole (Mycelex-7) 1 debra QHS VG 03/18/21 21:00 03/25/21 20:59 03/23/21 20:45 Dicyclomine HCl (Bentyl) 20 mg TID PO 03/18/21 21:00 03/23/21 20:24 Diphenoxylate HCl/ Atropine (Lomotil) 2 tab BID PO 03/18/21 21:00 03/23/21 20:24 I have reviewed the current psychotropics carefully including drug interactions. Risk benefit ratio favors no change other than as noted in my dictated progress note. Diagnosis: Problems: (1) Impulse control disorder, unspecified (2) Mild cognitive impairment (3) Anxiety disorder, unspecified (4) Bipolar 1 disorder, depressed NITHIN STEVENS MD Mar 24, 2021 07:21
[2021-03-24] MEDS: IPRATROPIUM/ALBUTEROL 20/100mcg/INH INHALER. INH SCH ×4 (08:00→20:20)
[2021-03-24] MEDS: buPROPion XL 300 MG TAB.ER.24H. PO SCH (08:33)
[2021-03-24] MEDS: DULoxetine HCL 30 MG CAPSULE.DR PO SCH ×2 (08:33→17:19)
[2021-03-24] MEDS: DIPHENOXYLATE/ATROPINE TABLET. PO SCH ×2 (08:33→20:22)
[2021-03-24] MEDS: DICYCLOMINE HCL 20 MG TABLET PO SCH ×3 (08:33→20:20)
[2021-03-24] MEDS: DIVALPROEX 125 MG CAP.SPRINK PO SCH ×2 (08:33→20:22)
[2021-03-24] MEDS: PANTOPRAZOLE 40 MG TABLET. PO SCH (08:33)
[2021-03-24] MEDS: levETIRAcetam 250 MG TABLET PO SCH (08:33)
[2021-03-24] MEDS: dilTIAZem HCL 30 MG TABLET PO SCH ×2 (08:34→20:21)
[2021-03-24] MEDS: sulfaSALAzine 500 MG TABLET PO SCH ×3 (08:34→17:20)
[2021-03-24] MEDS: ARIPiprazole 5 MG TABLET PO SCH (08:34)
[2021-03-24] MEDS: LIPASE/PROTEAS/AMYLAS 10/32/42 CAPSULE.DR. PO SCH ×3 (08:34→17:20)
[2021-03-24] MEDS: POTASSIUM CHLORIDE 10 MEQ TABLET.ER. PO SCH ×2 (08:34→20:22)
[2021-03-24] MEDS: HYDROXYUREA 500 MG CAPSULE PO SCH (08:36)
[2021-03-24] MEDS: GABAPENTIN 300 MG CAPSULE. PO SCH ×4 (08:39→20:22)
[2021-03-24] MEDS: FLUTICASONE 50MCG/NASAL SPRAY 16GM BOTTLE. NS SCH (08:40)
[2021-03-24] MEDS: NYSTATIN TOPICAL POWDER 15GM BOTTLE. TP SCH ×2 (08:40→20:23)
[2021-03-24 16:07] VITALS: BP 103/69
[2021-03-24] MEDS: CLOTRIMAZOLE 1% VAGINAL CREAM 45GM TUBE. VG SCH (20:20)
[2021-03-24] MEDS: traZODone 50 MG TABLET. PO SCH (20:22)
--- NOTE | 2021-03-24 21:07 | PDOC ---
Exam Note: Napoleon Note: Please also refer to the separate dictated note~for this date of service dictated separately.~Patient seen individually. Discussed the patient with Nursing staff reviewed the chart.~Reviewed interim history and current functioning. Reviewed vital signs,~Labs/ Radiology~and current medications noted below. Continue current treatment with the changes noted in the dictated addendum note Assessment: Vital Signs/I&O: Vital Signs Date Time Temp Pulse Resp B/P (MAP) Pulse Ox O2 Delivery O2 Flow Rate FiO2 03/24/21 20:21 78 103/69 03/24/21 16:07 97.2 20 95 03/24/21 05:57 Nasal Cannula 2.0 I & O 0 03/23/21 03/23/21 03/24/21 15:00 23:00 07:00 Intake Total 960 ml 480 ml Balance 960 ml 480 ml Current Medications: Meds: Current Medications Medications (Trade) Dose Ordered Sig/Mya Route PRN Reason Start Time Stop Time Status Last Admin Dose Admin Acetaminophen (Tylenol) 650 mg PRN Q6HRS PRN PO MILD PAIN / TEMP > 100.3'F 02/16/21 15:45 03/04/21 09:21 DC 02/18/21 06:31 Multi-Ingredient Ointment (Analgesic [place]) 1 debra PRN QID PRN TP MUSCLE PAIN 02/16/21 15:45 03/04/21 09:21 DC Al Hydroxide/Mg Hydroxide (Mylanta Plus Xs) 15 ml PRN AFTMEALHC PRN PO DYSPEPSIA 02/16/21 15:45 03/04/21 22:05 Magnesium Hydroxide (Milk Of Magnesia) 2,400 mg PRN QHS PRN PO 1ST CHOICE CONSTIPATION 02/16/21 15:45 03/04/21 09:21 DC Acetaminophen (Tylenol) 1,000 mg Q6HRS PRN PO pain or fever 02/16/21 17:00 02/16/21 17:35 DC Acetaminophen (Tylenol) 500 mg Q4HRS PRN PO MILD PAIN 1-3 02/16/21 17:00 02/16/21 17:36 DC Bisacodyl (Dulcolax Tab) 5 mg PRN DAILY PRN PO 2ND CHOICE CONSTIPATION 02/16/21 17:00 03/04/21 09:21 DC Vitamin D (Vitamin D3) 50,000 unit WEEKLY PO 02/22/21 09:00 03/04/21 09:21 DC 02/22/21 07:16 Clonazepam (KlonoPIN) 0.5 mg BID PO 02/16/21 21:00 02/27/21 19:54 DC 02/27/21 10:11 Dicyclomine HCl (Bentyl) 20 mg TID PO 02/16/21 21:00 03/04/21 09:21 DC 03/03/21 21:07 Diphenoxylate HCl/ Atropine (Lomotil) 2 tab BID PO 02/16/21 21:00 03/04/21 09:21 DC 03/03/21 21:08 Divalproex Sodium (Depakote Er) 1,000 mg HS PO 02/16/21 21:00 03/07/21 20:15 DC 03/04/21 21:43 Duloxetine HCl (Cymbalta) 30 mg BID PO 02/16/21 21:00 03/07/21 20:15 DC 03/06/21 08:14 Fluticasone Propionate (Flonase) 2 spray DAILY NS 02/17/21 09:00 03/23/21 07:59 Furosemide (Lasix) 20 mg DAILY PO 02/17/21 09:00 03/04/21 09:21 DC 03/03/21 08:32 Gabapentin (Neurontin) 300 mg QID PO 02/16/21 17:00 03/24/21 20:22 Hydroxyurea (Hydrea) 1,000 mg DAILY PO 02/17/21 09:00 03/24/21 08:36 Levetiracetam (Keppra) 250 mg BID PO 02/16/21 21:00 03/02/21 14:48 DC 03/02/21 09:54 Lidocaine (Lidoderm) 1 patch DAILY TP 02/17/21 09:00 02/17/21 09:24 DC Al Hydroxide/Mg Hydroxide (Mylanta Plus Xs) 15 ml PRN AFTMEALHC PRN PO DYSPEPSIA 02/16/21 17:00 02/16/21 17:36 DC Mirabegron (Myrbetriq) 50 mg DAILY PO 02/17/21 09:00 03/04/21 09:21 DC 03/03/21 08:30 Nystatin (Nystop) 1 debra BID TP 02/16/21 21:00 03/24/21 20:23 Pantoprazole Sodium (Protonix) 40 mg DAILYAC PO 02/17/21 07:30 03/24/21 08:33 Potassium Chloride (Klor-Con) 40 meq DAILY PO 02/17/21 09:00 03/04/21 09:21 DC 03/03/21 08:32 Sulfasalazine (Azulfidine) 500 mg TID PO 02/16/21 21:00 03/07/21 20:15 DC 03/06/21 13:05 Trazodone HCl (Desyrel) 50 mg QHS PO 02/16/21 21:00 03/24/21 20:22 Non-Formulary Medication (Albuterol Sulfate (Albuterol Sulfate Conc Neb Soln)) 1 vial PRN Q4HRS PRN NEB SHORTNESS OF BREATH 02/16/21 17:00 02/16/21 17:49 DC Ascorbic Acid (Vitamin C) 1,000 mg DAILY PO 02/17/21 09:00 03/04/21 09:21 DC 03/03/21 08:34 Diltiazem HCl (Cardizem) 60 mg BID PO 02/16/21 21:00 03/24/21 20:21 Lactobacillus Rhamnosus (Culturelle) 1 cap DAILY PO 02/17/21 09:00 03/04/21 09:21 DC 03/03/21 08:32 Amylase/Lipase/ Protease (Zenpep 10,000) 1 cap TIDBFRMEAL PO 02/17/21 07:30 03/24/21 17:20 Non-Formulary Medication (Magnesium Hydroxide (Milk Of Magnesia)) 2,400 mg PRN DAILY PRN PO CONSTIPATION 02/16/21 17:00 02/16/21 17:37 DC Magnesium Oxide (Magnesium Oxide) 400 mg DAILY PO 02/17/21 09:00 03/04/21 09:21 DC 03/03/21 08:31 Non-Formulary Medication (Methyl Salicylate/ Menthol (Analgesic [place])) 1 debra PRN Q6HRS PRN TP MUSCLE PAIN 02/16/21 17:00 02/16/21 17:37 DC Non-Formulary Medication (Umeclidinium [place] (Incruse Ellipta)) 62.5 mcg DAILY IH 02/17/21 09:00 02/16/21 17:49 DC Non-Formulary Medication (Zinc Gluconate ) 50 mg DAILY PO 02/17/21 09:00 02/16/21 17:46 DC Albuterol/ Ipratropium (Duoneb) 3 ml RTQID NEB 02/16/21 20:00 02/17/21 19:52 DC Albuterol Sulfate (Ventolin) 2.5 mg PRN Q4HRS PRN NEB SHORTNESS OF BREATH 02/16/21 18:00 Influenza Virus Vaccine Quadrival (Flulaval Quad [id number] Syringe) 0.5 ml ONCE ONCE VAX IM 02/17/21 09:00 02/17/21 09:01 DC 02/17/21 09:21 Lidocaine (Lidoderm) 1 patch DAILY PRN TP pain 02/17/21 09:30 02/27/21 10:11 Albuterol/ Ipratropium (Combivent Respimat 20-100 Mcg) 1 puff RTQID INH 02/17/21 20:00 03/24/21 20:20 Sertraline HCl (Zoloft) 25 mg DAILY PO 02/22/21 09:00 02/24/21 10:00 DC 02/24/21 09:59 Sertraline HCl (Zoloft) 50 mg DAILY PO 02/25/21 09:00 03/01/21 18:30 DC 03/01/21 10:07 Olanzapine (ZyPREXA ZYDIS) 5 mg 1X ONCE PO 02/26/21 12:03 02/26/21 12:09 DC 02/26/21 12:25 Clonazepam (KlonoPIN) 0.5 mg DAILY PO 02/28/21 09:00 03/02/21 07:00 DC 03/01/21 10:07 Bupropion HCl (Wellbutrin Xl) 150 mg DAILY PO 03/02/21 09:00 03/08/21 15:46 DC 03/08/21 08:41 Levetiracetam (Keppra) 250 mg DAILY PO 03/03/21 09:00 03/24/21 08:33 Aripiprazole (Abilify) 5 mg DAILY PO 03/05/21 09:00 03/24/21 08:34 Ondansetron HCl (Zofran Odt) 4 mg PRN Q4HRS PRN PO NAUSEA/VOMITING 03/06/21 19:30 03/06/21 19:46 Potassium Chloride (Klor-Con) 30 meq BID PO 03/07/21 09:00 03/24/21 20:22 Divalproex Sodium (Depakote Er) 1,000 mg 1700 PO 03/08/21 17:00 03/12/21 00:01 DC 03/11/21 17:27 Duloxetine HCl (Cymbalta) 30 mg 0900,1700 PO 03/08/21 17:00 03/24/21 17:19 Sulfasalazine (Azulfidine) 500 mg 0900,1300,1700 PO 03/08/21 09:00 03/24/21 17:20 Bupropion HCl (Wellbutrin Xl) 300 mg DAILY PO 03/09/21 09:00 03/24/21 08:33 Potassium Chloride (Klor-Con) 40 meq 1630,1730 PO 03/08/21 16:30 03/08/21 18:04 DC 03/08/21 16:57 Potassium Chloride (Klor-Con) 40 meq 1700,1800 PO 03/08/21 17:15 03/08/21 18:04 DC 03/08/21 17:56 Divalproex Sodium (Depakote Sprinkles) 500 mg BID PO 03/12/21 09:00 03/24/21 20:22 Clotrimazole (Mycelex-7) 1 debra QHS VG 03/18/21 21:00 03/25/21 20:59 03/24/21 20:20 Dicyclomine HCl (Bentyl) 20 mg TID PO 03/18/21 21:00 03/24/21 20:20 Diphenoxylate HCl/ Atropine (Lomotil) 2 tab BID PO 03/18/21 21:00 03/24/21 20:22 I have reviewed the current psychotropics carefully including drug interactions. Risk benefit ratio favors no change other than as noted in my dictated progress note. Diagnosis: Problems: (1) Impulse control disorder, unspecified (2) Mild cognitive impairment (3) Anxiety disorder, unspecified (4) Bipolar 1 disorder, depressed NITHIN STEVENS MD Mar 24, 2021 21:07
--- NOTE | 2021-03-24 23:33 | NUR ---
Patient is in her room on assumption of care, awake in bed. She is flat, disorganized. Compliant with assessments and medications crushed in applesauce. She has had no agitated or attention seeking behaviors so far this shift. Denies SI. Denies any pain or discomfort. Patient appears to be sleeping comfortably at present time. Will continue to monitor.
[2021-03-25 05:55] VITALS: BP 120/77
[2021-03-25 06:39] LABS: BASO % 1 % (0-3); EOS # 0.1 x10^3/uL (0.0-0.7); EOS % 2 % (0-3); HEMATOCRIT 37.1 % (36.0-47.0); HEMOGLOBIN 12.7 g/dL (12.0-15.5); LYMPH # 0.7 x10^3/uL (1.0-4.8); LYMPH % 14 % (24-48); MEAN CORPUSCULAR HEMOGLOBIN 37 pg (25-35); MEAN CORPUSCULAR HGB CONC 34 g/dL (31-37); MEAN CORPUSCULAR VOLUME 109 fL (79-100); MONO # 0.3 x10^3/uL (0.0-1.1); MONO % 6 % (0-9); NEUT # 3.7 x10^3uL (1.8-7.7); NEUT % 77 % (31-73); PLATELET COUNT 218 x10^3/uL (140-400); RED CELL DISTRIBUTION WIDTH 16.7 % (11.5-14.5); WHITE BLOOD COUNT 4.9 x10^3/uL (4.0-11.0)
[2021-03-25 06:49] LABS: ALBUMIN 2.7 g/dL (3.4-5.0); ALBUMIN/GLOBULIN RATIO 0.8 (1.0-1.7); CREATININE 0.5 mg/dL (0.6-1.0); GFR 122.3; POTASSIUM 3.7 mmol/L (3.5-5.1); TOTAL BILIRUBIN 0.5 mg/dL (0.2-1.0); TOTAL PROTEIN 6.3 g/dL (6.4-8.2)
[2021-03-25] MEDS: FLUTICASONE 50MCG/NASAL SPRAY 16GM BOTTLE. NS SCH (08:14)
[2021-03-25] MEDS: dilTIAZem HCL 30 MG TABLET PO SCH ×2 (08:15→20:23)
[2021-03-25] MEDS: GABAPENTIN 300 MG CAPSULE. PO SCH ×4 (08:15→20:22)
[2021-03-25] MEDS: IPRATROPIUM/ALBUTEROL 20/100mcg/INH INHALER. INH SCH ×4 (08:15→20:22)
[2021-03-25] MEDS: DULoxetine HCL 30 MG CAPSULE.DR PO SCH ×2 (08:15→17:26)
[2021-03-25] MEDS: LIPASE/PROTEAS/AMYLAS 10/32/42 CAPSULE.DR. PO SCH ×3 (08:16→17:26)
[2021-03-25] MEDS: DIPHENOXYLATE/ATROPINE TABLET. PO SCH ×2 (08:16→20:22)
[2021-03-25] MEDS: DIVALPROEX 125 MG CAP.SPRINK PO SCH ×2 (08:16→20:22)
[2021-03-25] MEDS: ARIPiprazole 5 MG TABLET PO SCH (08:16)
[2021-03-25] MEDS: buPROPion XL 300 MG TAB.ER.24H. PO SCH (08:17)
[2021-03-25] MEDS: PANTOPRAZOLE 40 MG TABLET. PO SCH (08:17)
[2021-03-25] MEDS: POTASSIUM CHLORIDE 10 MEQ TABLET.ER. PO SCH ×2 (08:17→20:23)
[2021-03-25] MEDS: levETIRAcetam 250 MG TABLET PO SCH (08:17)
[2021-03-25] MEDS: DICYCLOMINE HCL 20 MG TABLET PO SCH ×3 (08:17→20:23)
[2021-03-25] MEDS: sulfaSALAzine 500 MG TABLET PO SCH ×3 (08:18→17:26)
[2021-03-25] MEDS: HYDROXYUREA 500 MG CAPSULE PO SCH (08:19)
[2021-03-25] MEDS: NYSTATIN TOPICAL POWDER 15GM BOTTLE. TP SCH ×2 (09:00→20:21)
[2021-03-25 15:16] VITALS: BP 100/64
--- NOTE | 2021-03-25 18:30 | NUR ---
Patient has been disorganized, generally calm, and cooperative today. She was interactive with staff and peers. Will continue to monitor and report to oncoming shift.
[2021-03-25] MEDS: traZODone 50 MG TABLET. PO SCH (20:22)
--- NOTE | 2021-03-25 20:45 | RAD ---
CT HEAD INDICATION: History of fall COMPARISON: None Available. Exposure: One or more of the following individualized dose reduction techniques were utilized for thi s examination: 1. Automated exposure control 2. Adjustment of the mA and/or kV according to patient size 3. Use of iterative reconstruction technique TECHNIQUE: 5 mm contiguous axial images were obtained from the skull base to the vertex in both bone and soft tissue algorithm. FINDINGS: No abnormal attenuation within the brain parenchyma. No evidence of acute intracranial hemorrhage. No extra-axial fluid collections. No mass effect or midline shift. Ventricular size is appropriate. Basal cisterns are patent. No fractures identified.Skelton-white differentiation is preserved.Globes and orbits are within normal l imits. Paranasal sinuses and mastoid air cells are clear. IMPRESSION: No acute intracranial findings. Electronically signed by: Orlando Knight MD (03/25/2021 8:43 PM) [id number]
--- NOTE | 2021-03-25 21:07 | PDOC ---
Exam Note: Napoleon Note: Please also refer to the separate dictated note~for this date of service dictated separately.~Patient seen individually. Discussed the patient with Nursing staff reviewed the chart.~Reviewed interim history and current functioning. Reviewed vital signs,~Labs/ Radiology~and current medications noted below. Continue current treatment with the changes noted in the dictated addendum note Assessment: Vital Signs/I&O: Vital Signs Date Time Temp Pulse Resp B/P (MAP) Pulse Ox O2 Delivery O2 Flow Rate FiO2 03/25/21 20:23 82 100/64 03/25/21 15:16 97.4 20 96 Room Air 03/24/21 05:57 2.0 I & O 03/24/21 03/24/21 03/25/21 15:00 23:00 07:00 Intake Total 840 ml 800 ml Balance 840 ml 800 ml Labs: Laboratory Tests Test 03/25/21 06:19 White Blood Count 4.9 x10^3/uL (4.0-11.0) Red Blood Count 3.40 x10^6/uL (3.50-5.40) L Hemoglobin 12.7 g/dL (12.0-15.5) Hematocrit 37.1 % (36.0-47.0) Mean Corpuscular Volume 109 fL (79-100) H Mean Corpuscular Hemoglobin 37 pg (25-35) H Mean Corpuscular Hemoglobin Concent 34 g/dL (31-37) Red Cell Distribution Width 16.7 % (11.5-14.5) H Platelet Count 218 x10^3/uL (140-400) Neutrophils (%) (Auto) 77 % (31-73) H Lymphocytes (%) (Auto) 14 % (24-48) L Monocytes (%) (Auto) 6 % (0-9) Eosinophils (%) (Auto) 2 % (0-3) Basophils (%) (Auto) 1 % (0-3) Neutrophils # (Auto) 3.7 x10^3uL (1.8-7.7) Lymphocytes # (Auto) 0.7 x10^3/uL (1.0-4.8) L Monocytes # (Auto) 0.3 x10^3/uL (0.0-1.1) Eosinophils # (Auto) 0.1 x10^3/uL (0.0-0.7) Basophils # (Auto) 0.0 x10^3/uL (0.0-0.2) Sodium Level 139 mmol/L (136-145) Potassium Level 3.7 mmol/L (3.5-5.1) Chloride Level 100 mmol/L (98-107) Carbon Dioxide Level 33 mmol/L (21-32) H Anion Gap 6 (6-14) Blood Urea Nitrogen 10 mg/dL (7-20) Creatinine 0.5 mg/dL (0.6-1.0) L Estimated GFR (Cockcroft-Gault) 122.3 BUN/Creatinine Ratio 20 (6-20) Glucose Level 90 mg/dL (70-99) Calcium Level 9.0 mg/dL (8.5-10.1) Total Bilirubin 0.5 mg/dL (0.2-1.0) Aspartate Amino Transferase (AST) 24 U/L (15-37) Alanine Aminotransferase (ALT) 60 U/L (14-59) H Alkaline Phosphatase 205 U/L (46-116) H Total Protein 6.3 g/dL (6.4-8.2) L Albumin 2.7 g/dL (3.4-5.0) L Albumin/Globulin Ratio 0.8 (1.0-1.7) L Current Medications: Meds: Laboratory Tests Test 03/25/21 06:19 White Blood Count 4.9 x10^3/uL Red Blood Count 3.40 x10^6/uL Hemoglobin 12.7 g/dL Hematocrit 37.1 % Mean Corpuscular Volume 109 fL Mean Corpuscular Hemoglobin 37 pg Mean Corpuscular Hemoglobin Concent 34 g/dL Red Cell Distribution Width 16.7 % Platelet Count 218 x10^3/uL Neutrophils (%) (Auto) 77 % Lymphocytes (%) (Auto) 14 % Monocytes (%) (Auto) 6 % Eosinophils (%) (Auto) 2 % Basophils (%) (Auto) 1 % Neutrophils # (Auto) 3.7 x10^3uL Lymphocytes # (Auto) 0.7 x10^3/uL Monocytes # (Auto) 0.3 x10^3/uL Eosinophils # (Auto) 0.1 x10^3/uL Basophils # (Auto) 0.0 x10^3/uL Sodium Level 139 mmol/L Potassium Level 3.7 mmol/L Chloride Level 100 mmol/L Carbon Dioxide Level 33 mmol/L Anion Gap 6 Blood Urea Nitrogen 10 mg/dL Creatinine 0.5 mg/dL Estimated GFR (Cockcroft-Gault) 122.3 BUN/Creatinine Ratio 20 Glucose Level 90 mg/dL Calcium Level 9.0 mg/dL Total Bilirubin 0.5 mg/dL Aspartate Amino Transf (AST/SGOT) 24 U/L Alanine Aminotransferase (ALT/SGPT) 60 U/L Alkaline Phosphatase 205 U/L Total Protein 6.3 g/dL Albumin 2.7 g/dL Albumin/Globulin Ratio 0.8 Current Medications Medications (Trade) Dose Ordered Sig/Mya Route PRN Reason Start Time Stop Time Status Last Admin Dose Admin Acetaminophen (Tylenol) 650 mg PRN Q6HRS PRN PO MILD PAIN / TEMP > 100.3'F 02/16/21 15:45 03/04/21 09:21 DC 02/18/21 06:31 Multi-Ingredient Ointment (Analgesic [place]) 1 debra PRN QID PRN TP MUSCLE PAIN 02/16/21 15:45 03/04/21 09:21 DC Al Hydroxide/Mg Hydroxide (Mylanta Plus Xs) 15 ml PRN AFTMEALHC PRN PO DYSPEPSIA 02/16/21 15:45 03/04/21 22:05 Magnesium Hydroxide (Milk Of Magnesia) 2,400 mg PRN QHS PRN PO 1ST CHOICE CONSTIPATION 02/16/21 15:45 03/04/21 09:21 DC Acetaminophen (Tylenol) 1,000 mg Q6HRS PRN PO pain or fever 02/16/21 17:00 02/16/21 17:35 DC Acetaminophen (Tylenol) 500 mg Q4HRS PRN PO MILD PAIN 1-3 02/16/21 17:00 02/16/21 17:36 DC Bisacodyl (Dulcolax Tab) 5 mg PRN DAILY PRN PO 2ND CHOICE CONSTIPATION 02/16/21 17:00 03/04/21 09:21 DC Vitamin D (Vitamin D3) 50,000 unit WEEKLY PO 02/22/21 09:00 03/04/21 09:21 DC 02/22/21 07:16 Clonazepam (KlonoPIN) 0.5 mg BID PO 02/16/21 21:00 02/27/21 19:54 DC 02/27/21 10:11 Dicyclomine HCl (Bentyl) 20 mg TID PO 02/16/21 21:00 03/04/21 09:21 DC 03/03/21 21:07 Diphenoxylate HCl/ Atropine (Lomotil) 2 tab BID PO 02/16/21 21:00 03/04/21 09:21 DC 03/03/21 21:08 Divalproex Sodium (Depakote Er) 1,000 mg HS PO 02/16/21 21:00 03/07/21 20:15 DC 03/04/21 21:43 Duloxetine HCl (Cymbalta) 30 mg BID PO 02/16/21 21:00 03/07/21 20:15 DC 03/06/21 08:14 Fluticasone Propionate (Flonase) 2 spray DAILY NS 02/17/21 09:00 03/25/21 08:14 Furosemide (Lasix) 20 mg DAILY PO 02/17/21 09:00 03/04/21 09:21 DC 03/03/21 08:32 Gabapentin (Neurontin) 300 mg QID PO 02/16/21 17:00 03/25/21 20:22 Hydroxyurea (Hydrea) 1,000 mg DAILY PO 02/17/21 09:00 03/25/21 08:19 Levetiracetam (Keppra) 250 mg BID PO 02/16/21 21:00 03/02/21 14:48 DC 03/02/21 09:54 Lidocaine (Lidoderm) 1 patch DAILY TP 02/17/21 09:00 02/17/21 09:24 DC Al Hydroxide/Mg Hydroxide (Mylanta Plus Xs) 15 ml PRN AFTMEALHC PRN PO DYSPEPSIA 02/16/21 17:00 02/16/21 17:36 DC Mirabegron (Myrbetriq) 50 mg DAILY PO 02/17/21 09:00 03/04/21 09:21 DC 03/03/21 08:30 Nystatin (Nystop) 1 debra BID TP 02/16/21 21:00 03/25/21 20:21 Pantoprazole Sodium (Protonix) 40 mg DAILYAC PO 02/17/21 07:30 03/25/21 08:17 Potassium Chloride (Klor-Con) 40 meq DAILY PO 02/17/21 09:00 03/04/21 09:21 DC 03/03/21 08:32 Sulfasalazine (Azulfidine) 500 mg TID PO 02/16/21 21:00 03/07/21 20:15 DC 03/06/21 13:05 Trazodone HCl (Desyrel) 50 mg QHS PO 02/16/21 21:00 03/25/21 20:22 Non-Formulary Medication (Albuterol Sulfate (Albuterol Sulfate Conc Neb Soln)) 1 vial PRN Q4HRS PRN NEB SHORTNESS OF BREATH 02/16/21 17:00 02/16/21 17:49 DC Ascorbic Acid (Vitamin C) 1,000 mg DAILY PO 02/17/21 09:00 03/04/21 09:21 DC 03/03/21 08:34 Diltiazem HCl (Cardizem) 60 mg BID PO 02/16/21 21:00 03/25/21 08:15 Lactobacillus Rhamnosus (Culturelle) 1 cap DAILY PO 02/17/21 09:00 03/04/21 09:21 DC 03/03/21 08:32 Amylase/Lipase/ Protease (Zenpep 10,000) 1 cap TIDBFRMEAL PO 02/17/21 07:30 03/25/21 17:26 Non-Formulary Medication (Magnesium Hydroxide (Milk Of Magnesia)) 2,400 mg PRN DAILY PRN PO CONSTIPATION 02/16/21 17:00 02/16/21 17:37 DC Magnesium Oxide (Magnesium Oxide) 400 mg DAILY PO 02/17/21 09:00 03/04/21 09:21 DC 03/03/21 08:31 Non-Formulary Medication (Methyl Salicylate/ Menthol (Analgesic [place])) 1 debra PRN Q6HRS PRN TP MUSCLE PAIN 02/16/21 17:00 02/16/21 17:37 DC Non-Formulary Medication (Umeclidinium [place] (Incruse Ellipta)) 62.5 mcg DAILY IH 02/17/21 09:00 02/16/21 17:49 DC Non-Formulary Medication (Zinc Gluconate ) 50 mg DAILY PO 02/17/21 09:00 02/16/21 17:46 DC Albuterol/ Ipratropium (Duoneb) 3 ml RTQID NEB 02/16/21 20:00 02/17/21 19:52 DC Albuterol Sulfate (Ventolin) 2.5 mg PRN Q4HRS PRN NEB SHORTNESS OF BREATH 02/16/21 18:00 Influenza Virus Vaccine Quadrival (Flulaval Quad [id number] Syringe) 0.5 ml ONCE ONCE VAX IM 02/17/21 09:00 02/17/21 09:01 DC 02/17/21 09:21 Lidocaine (Lidoderm) 1 patch DAILY PRN TP pain 02/17/21 09:30 02/27/21 10:11 Albuterol/ Ipratropium (Combivent Respimat 20-100 Mcg) 1 puff RTQID INH 02/17/21 20:00 03/25/21 20:22 Sertraline HCl (Zoloft) 25 mg DAILY PO 02/22/21 09:00 02/24/21 10:00 DC 02/24/21 09:59 Sertraline HCl (Zoloft) 50 mg DAILY PO 02/25/21 09:00 03/01/21 18:30 DC 03/01/21 10:07 Olanzapine (ZyPREXA ZYDIS) 5 mg 1X ONCE PO 02/26/21 12:03 02/26/21 12:09 DC 02/26/21 12:25 Clonazepam (KlonoPIN) 0.5 mg DAILY PO 02/28/21 09:00 03/02/21 07:00 DC 03/01/21 10:07 Bupropion HCl (Wellbutrin Xl) 150 mg DAILY PO 03/02/21 09:00 03/08/21 15:46 DC 03/08/21 08:41 Levetiracetam (Keppra) 250 mg DAILY PO 03/03/21 09:00 03/25/21 08:17 Aripiprazole (Abilify) 5 mg DAILY PO 03/05/21 09:00 03/25/21 08:16 Ondansetron HCl (Zofran Odt) 4 mg PRN Q4HRS PRN PO NAUSEA/VOMITING 03/06/21 19:30 03/06/21 19:46 Potassium Chloride (Klor-Con) 30 meq BID PO 03/07/21 09:00 03/25/21 20:23 Divalproex Sodium (Depakote Er) 1,000 mg 1700 PO 03/08/21 17:00 03/12/21 00:01 DC 03/11/21 17:27 Duloxetine HCl (Cymbalta) 30 mg 0900,1700 PO 03/08/21 17:00 03/25/21 17:26 Sulfasalazine (Azulfidine) 500 mg 0900,1300,1700 PO 03/08/21 09:00 03/25/21 17:26 Bupropion HCl (Wellbutrin Xl) 300 mg DAILY PO 03/09/21 09:00 03/25/21 08:17 Potassium Chloride (Klor-Con) 40 meq 1630,1730 PO 03/08/21 16:30 03/08/21 18:04 DC 03/08/21 16:57 Potassium Chloride (Klor-Con) 40 meq 1700,1800 PO 03/08/21 17:15 03/08/21 18:04 DC 03/08/21 17:56 Divalproex Sodium (Depakote Sprinkles) 500 mg BID PO 03/12/21 09:00 03/25/21 20:22 Clotrimazole (Mycelex-7) 1 debra QHS VG 03/18/21 21:00 03/25/21 20:59 DC 03/24/21 20:20 Dicyclomine HCl (Bentyl) 20 mg TID PO 03/18/21 21:00 03/25/21 20:23 Diphenoxylate HCl/ Atropine (Lomotil) 2 tab BID PO 03/18/21 21:00 03/25/21 20:22 I have reviewed the current psychotropics carefully including drug interactions. Risk benefit ratio favors no change other than as noted in my dictated progress note. Diagnosis: Problems: (1) Impulse control disorder, unspecified (2) Mild cognitive impairment (3) Anxiety disorder, unspecified (4) Bipolar 1 disorder, depressed (5) Bipolar affective, depress, sev w/ psych NITHIN STEVENS MD Mar 25, 2021 21:07
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
[2021-03-26 05:52] VITALS: BP 94/60
--- NOTE | 2021-03-26 07:13 | PDOC ---
Exam Note: Napoleon Note: This note is a late entry for 03/24/2021 covers elements not covered in my initial note. Subjective: The patient was seen individually in the evening of 03/24/2021 with Federica BARR, discussed and reviewed the chart. The patient slept 7-1/2 hours previous night. Per nursing report the patient is doing reasonably well. She remains withdrawn. As I met with her in her room she was lying in bed and oxygen cannula was totally away from her nose. I tried to replace it and she was grabbing at it, quite confused and [facility] nursing staff addressed this. Review of Systems: Impaired ambulation in wheelchair. Shortness of breath on O2 supplements. No CV, , eye, ENT system symptoms on review. Mental Status Exam: The patient is oriented to herself, little more confused this evening but some of it is understandable since she has probably not had the oxygen for a short period of time. Insight and judgment, recent and remote memory, attention and concentration, fund of knowledge is poor consistent with her diagnoses. Each time her oxygen is off, she seems more confused. Laboratory Data: Reviewed. Impression: Bipolar disorder, depressed. Anxiety disorder unspecified. Impulse control disorder unspecified. Plan: We will check her liver profile in the morning and if AST and ALT are further elevated, we may stop the Depakote and defer to Dr. Alvarado to adjust the Keppra for her seizures. Continue rest unchanged. Assessment: Vital Signs/I&O: Vital Signs Date Time Temp Pulse Resp B/P (MAP) Pulse Ox O2 Delivery O2 Flow Rate FiO2 03/26/21 05:52 97.8 96 20 94/60 (71) 94 Nasal Cannula 2.0 I & O 03/25/21 03/25/21 03/26/21 15:00 23:00 07:00 Intake Total 960 ml 600 ml Balance 960 ml 600 ml Current Medications: Meds: Current Medications Medications (Trade) Dose Ordered Sig/Mya Route PRN Reason Start Time Stop Time Status Last Admin Dose Admin Acetaminophen (Tylenol) 650 mg PRN Q6HRS PRN PO MILD PAIN / TEMP > 100.3'F 02/16/21 15:45 03/04/21 09:21 DC 02/18/21 06:31 Multi-Ingredient Ointment (Analgesic Ernest) 1 debra PRN QID PRN TP MUSCLE PAIN 02/16/21 15:45 03/04/21 09:21 DC Al Hydroxide/Mg Hydroxide (Mylanta Plus Xs) 15 ml PRN AFTMEALHC PRN PO DYSPEPSIA 02/16/21 15:45 03/04/21 22:05 Magnesium Hydroxide (Milk Of Magnesia) 2,400 mg PRN QHS PRN PO 1ST CHOICE CONSTIPATION 02/16/21 15:45 03/04/21 09:21 DC Acetaminophen (Tylenol) 1,000 mg Q6HRS PRN PO pain or fever 02/16/21 17:00 02/16/21 17:35 DC Acetaminophen (Tylenol) 500 mg Q4HRS PRN PO MILD PAIN 1-3 02/16/21 17:00 02/16/21 17:36 DC Bisacodyl (Dulcolax Tab) 5 mg PRN DAILY PRN PO 2ND CHOICE CONSTIPATION 02/16/21 17:00 03/04/21 09:21 DC Vitamin D (Vitamin D3) 50,000 unit WEEKLY PO 02/22/21 09:00 03/04/21 09:21 DC 02/22/21 07:16 Clonazepam (KlonoPIN) 0.5 mg BID PO 02/16/21 21:00 02/27/21 19:54 DC 02/27/21 10:11 Dicyclomine HCl (Bentyl) 20 mg TID PO 02/16/21 21:00 03/04/21 09:21 DC 03/03/21 21:07 Diphenoxylate HCl/ Atropine (Lomotil) 2 tab BID PO 02/16/21 21:00 03/04/21 09:21 DC 03/03/21 21:08 Divalproex Sodium (Depakote Er) 1,000 mg HS PO 02/16/21 21:00 03/07/21 20:15 DC 03/04/21 21:43 Duloxetine HCl (Cymbalta) 30 mg BID PO 02/16/21 21:00 03/07/21 20:15 DC 03/06/21 08:14 Fluticasone Propionate (Flonase) 2 spray DAILY NS 02/17/21 09:00 03/25/21 08:14 Furosemide (Lasix) 20 mg DAILY PO 02/17/21 09:00 03/04/21 09:21 DC 03/03/21 08:32 Gabapentin (Neurontin) 300 mg QID PO 02/16/21 17:00 03/25/21 20:22 Hydroxyurea (Hydrea) 1,000 mg DAILY PO 02/17/21 09:00 03/25/21 08:19 Levetiracetam (Keppra) 250 mg BID PO 02/16/21 21:00 03/02/21 14:48 DC 03/02/21 09:54 Lidocaine (Lidoderm) 1 patch DAILY TP 02/17/21 09:00 02/17/21 09:24 DC Al Hydroxide/Mg Hydroxide (Mylanta Plus Xs) 15 ml PRN AFTMEALHC PRN PO DYSPEPSIA 02/16/21 17:00 02/16/21 17:36 DC Mirabegron (Myrbetriq) 50 mg DAILY PO 02/17/21 09:00 03/04/21 09:21 DC 03/03/21 08:30 Nystatin (Nystop) 1 debra BID TP 02/16/21 21:00 03/25/21 20:21 Pantoprazole Sodium (Protonix) 40 mg DAILYAC PO 02/17/21 07:30 03/25/21 08:17 Potassium Chloride (Klor-Con) 40 meq DAILY PO 02/17/21 09:00 03/04/21 09:21 DC 03/03/21 08:32 Sulfasalazine (Azulfidine) 500 mg TID PO 02/16/21 21:00 03/07/21 20:15 DC 03/06/21 13:05 Trazodone HCl (Desyrel) 50 mg QHS PO 02/16/21 21:00 03/25/21 20:22 Non-Formulary Medication (Albuterol Sulfate (Albuterol Sulfate Conc Neb Soln)) 1 vial PRN Q4HRS PRN NEB SHORTNESS OF BREATH 02/16/21 17:00 02/16/21 17:49 DC Ascorbic Acid (Vitamin C) 1,000 mg DAILY PO 02/17/21 09:00 03/04/21 09:21 DC 03/03/21 08:34 Diltiazem HCl (Cardizem) 60 mg BID PO 02/16/21 21:00 03/25/21 08:15 Lactobacillus Rhamnosus (Culturelle) 1 cap DAILY PO 02/17/21 09:00 03/04/21 09:21 DC 03/03/21 08:32 Amylase/Lipase/ Protease (Zenpep 10,000) 1 cap TIDBFRMEAL PO 02/17/21 07:30 03/25/21 17:26 Non-Formulary Medication (Magnesium Hydroxide (Milk Of Magnesia)) 2,400 mg PRN DAILY PRN PO CONSTIPATION 02/16/21 17:00 02/16/21 17:37 DC Magnesium Oxide (Magnesium Oxide) 400 mg DAILY PO 02/17/21 09:00 03/04/21 09:21 DC 03/03/21 08:31 Non-Formulary Medication (Methyl Salicylate/ Menthol (Analgesic Ernest)) 1 derba PRN Q6HRS PRN TP MUSCLE PAIN 02/16/21 17:00 02/16/21 17:37 DC Non-Formulary Medication (Umeclidinium [place] (Incruse Ellipta)) 62.5 mcg DAILY IH 02/17/21 09:00 02/16/21 17:49 DC Non-Formulary Medication (Zinc Gluconate ) 50 mg DAILY PO 02/17/21 09:00 02/16/21 17:46 DC Albuterol/ Ipratropium (Duoneb) 3 ml RTQID NEB 02/16/21 20:00 02/17/21 19:52 DC Albuterol Sulfate (Ventolin) 2.5 mg PRN Q4HRS PRN NEB SHORTNESS OF BREATH 02/16/21 18:00 Influenza Virus Vaccine Quadrival (Flulaval Quad [id number] Syringe) 0.5 ml ONCE ONCE VAX IM 02/17/21 09:00 02/17/21 09:01 DC 02/17/21 09:21 Lidocaine (Lidoderm) 1 patch DAILY PRN TP pain 02/17/21 09:30 02/27/21 10:11 Albuterol/ Ipratropium (Combivent Respimat 20-100 Mcg) 1 puff RTQID INH 02/17/21 20:00 03/25/21 20:22 Sertraline HCl (Zoloft) 25 mg DAILY PO 02/22/21 09:00 02/24/21 10:00 DC 02/24/21 09:59 Sertraline HCl (Zoloft) 50 mg DAILY PO 02/25/21 09:00 03/01/21 18:30 DC 03/01/21 10:07 Olanzapine (ZyPREXA ZYDIS) 5 mg 1X ONCE PO 02/26/21 12:03 02/26/21 12:09 DC 02/26/21 12:25 Clonazepam (KlonoPIN) 0.5 mg DAILY PO 02/28/21 09:00 03/02/21 07:00 DC 03/01/21 10:07 Bupropion HCl (Wellbutrin Xl) 150 mg DAILY PO 03/02/21 09:00 03/08/21 15:46 DC 03/08/21 08:41 Levetiracetam (Keppra) 250 mg DAILY PO 03/03/21 09:00 03/25/21 08:17 Aripiprazole (Abilify) 5 mg DAILY PO 03/05/21 09:00 03/25/21 08:16 Ondansetron HCl (Zofran Odt) 4 mg PRN Q4HRS PRN PO NAUSEA/VOMITING 03/06/21 19:30 03/06/21 19:46 Potassium Chloride (Klor-Con) 30 meq BID PO 03/07/21 09:00 03/25/21 20:23 Divalproex Sodium (Depakote Er) 1,000 mg 1700 PO 03/08/21 17:00 03/12/21 00:01 DC 03/11/21 17:27 Duloxetine HCl (Cymbalta) 30 mg 0900,1700 PO 03/08/21 17:00 03/25/21 17:26 Sulfasalazine (Azulfidine) 500 mg 0900,1300,1700 PO 03/08/21 09:00 03/25/21 17:26 Bupropion HCl (Wellbutrin Xl) 300 mg DAILY PO 03/09/21 09:00 03/25/21 08:17 Potassium Chloride (Klor-Con) 40 meq 1630,1730 PO 03/08/21 16:30 03/08/21 18:04 DC 03/08/21 16:57 Potassium Chloride (Klor-Con) 40 meq 1700,1800 PO 03/08/21 17:15 03/08/21 18:04 DC 03/08/21 17:56 Divalproex Sodium (Depakote Sprinkles) 500 mg BID PO 03/12/21 09:00 03/25/21 20:22 Clotrimazole (Mycelex-7) 1 debra QHS VG 03/18/21 21:00 03/25/21 20:59 DC 03/24/21 20:20 Dicyclomine HCl (Bentyl) 20 mg TID PO 03/18/21 21:00 03/25/21 20:23 Diphenoxylate HCl/ Atropine (Lomotil) 2 tab BID PO 03/18/21 21:00 03/25/21 20:22 I have reviewed the current psychotropics carefully including drug interactions. Risk benefit ratio favors no change other than as noted in my dictated progress note. Diagnosis: Problems: (1) Bipolar 1 disorder, depressed (2) Anxiety disorder, unspecified (3) Mild cognitive impairment (4) Impulse control disorder, unspecified NITHIN STEVENS MD Mar 26, 2021 07:13
[2021-03-26] MEDS: PANTOPRAZOLE 40 MG TABLET. PO SCH (07:30)
[2021-03-26] MEDS: IPRATROPIUM/ALBUTEROL 20/100mcg/INH INHALER. INH SCH ×4 (08:00→19:36)
[2021-03-26] MEDS: DIVALPROEX 125 MG CAP.SPRINK PO SCH ×2 (08:40→19:36)
[2021-03-26] MEDS: DIPHENOXYLATE/ATROPINE TABLET. PO SCH ×2 (08:40→19:38)
[2021-03-26] MEDS: buPROPion XL 300 MG TAB.ER.24H. PO SCH (08:40)
[2021-03-26] MEDS: LIPASE/PROTEAS/AMYLAS 10/32/42 CAPSULE.DR. PO SCH ×3 (08:41→16:59)
[2021-03-26] MEDS: GABAPENTIN 300 MG CAPSULE. PO SCH ×4 (08:41→19:37)
[2021-03-26] MEDS: levETIRAcetam 250 MG TABLET PO SCH (08:41)
[2021-03-26] MEDS: ARIPiprazole 5 MG TABLET PO SCH (08:41)
[2021-03-26] MEDS: sulfaSALAzine 500 MG TABLET PO SCH ×3 (08:42→16:59)
[2021-03-26] MEDS: dilTIAZem HCL 30 MG TABLET PO SCH ×2 (08:50→19:38)
[2021-03-26] MEDS: FLUTICASONE 50MCG/NASAL SPRAY 16GM BOTTLE. NS SCH (09:00)
[2021-03-26] MEDS: NYSTATIN TOPICAL POWDER 15GM BOTTLE. TP SCH ×2 (09:00→19:36)
[2021-03-26] MEDS: POTASSIUM CHLORIDE 10 MEQ TABLET.ER. PO SCH ×2 (09:00→19:39)
[2021-03-26] MEDS: HYDROXYUREA 500 MG CAPSULE PO SCH (09:24)
[2021-03-26] MEDS: DICYCLOMINE HCL 20 MG TABLET PO SCH ×3 (09:25→19:37)
[2021-03-26] MEDS: DULoxetine HCL 30 MG CAPSULE.DR PO SCH ×2 (09:26→16:59)
[2021-03-26 16:05] VITALS: BP 100/62
[2021-03-26] MEDS: traZODone 50 MG TABLET. PO SCH (19:37)
--- NOTE | 2021-03-26 21:00 | PDOC ---
Exam Note: Napoleon Note: Please also refer to the separate dictated note~for this date of service dictated separately.~Patient seen individually. Discussed the patient with Nursing staff reviewed the chart.~Reviewed interim history and current functioning. Reviewed vital signs,~Labs/ Radiology~and current medications noted below. Continue current treatment with the changes noted in the dictated addendum note Assessment: Vital Signs/I&O: Vital Signs Date Time Temp Pulse Resp B/P (MAP) Pulse Ox O2 Delivery O2 Flow Rate FiO2 03/26/21 19:38 93 100/62 03/26/21 16:05 98.4 16 92 Nasal Cannula 2.0 I & O 03/25/21 03/25/21 03/26/21 15:00 23:00 07:00 Intake Total 960 ml 600 ml Balance 960 ml 600 ml Current Medications: Meds: Current Medications Medications (Trade) Dose Ordered Sig/Mya Route PRN Reason Start Time Stop Time Status Last Admin Dose Admin Acetaminophen (Tylenol) 650 mg PRN Q6HRS PRN PO MILD PAIN / TEMP > 100.3'F 02/16/21 15:45 03/04/21 09:21 DC 02/18/21 06:31 Multi-Ingredient Ointment (Analgesic [place]) 1 debra PRN QID PRN TP MUSCLE PAIN 02/16/21 15:45 03/04/21 09:21 DC Al Hydroxide/Mg Hydroxide (Mylanta Plus Xs) 15 ml PRN AFTMEALHC PRN PO DYSPEPSIA 02/16/21 15:45 03/04/21 22:05 Magnesium Hydroxide (Milk Of Magnesia) 2,400 mg PRN QHS PRN PO 1ST CHOICE CONSTIPATION 02/16/21 15:45 03/04/21 09:21 DC Acetaminophen (Tylenol) 1,000 mg Q6HRS PRN PO pain or fever 02/16/21 17:00 02/16/21 17:35 DC Acetaminophen (Tylenol) 500 mg Q4HRS PRN PO MILD PAIN 1-3 02/16/21 17:00 02/16/21 17:36 DC Bisacodyl (Dulcolax Tab) 5 mg PRN DAILY PRN PO 2ND CHOICE CONSTIPATION 02/16/21 17:00 03/04/21 09:21 DC Vitamin D (Vitamin D3) 50,000 unit WEEKLY PO 02/22/21 09:00 03/04/21 09:21 DC 02/22/21 07:16 Clonazepam (KlonoPIN) 0.5 mg BID PO 02/16/21 21:00 02/27/21 19:54 DC 02/27/21 10:11 Dicyclomine HCl (Bentyl) 20 mg TID PO 02/16/21 21:00 03/04/21 09:21 DC 03/03/21 21:07 Diphenoxylate HCl/ Atropine (Lomotil) 2 tab BID PO 02/16/21 21:00 03/04/21 09:21 DC 03/03/21 21:08 Divalproex Sodium (Depakote Er) 1,000 mg HS PO 02/16/21 21:00 03/07/21 20:15 DC 03/04/21 21:43 Duloxetine HCl (Cymbalta) 30 mg BID PO 02/16/21 21:00 03/07/21 20:15 DC 03/06/21 08:14 Fluticasone Propionate (Flonase) 2 spray DAILY NS 02/17/21 09:00 03/25/21 08:14 Furosemide (Lasix) 20 mg DAILY PO 02/17/21 09:00 03/04/21 09:21 DC 03/03/21 08:32 Gabapentin (Neurontin) 300 mg QID PO 02/16/21 17:00 03/26/21 19:37 Hydroxyurea (Hydrea) 1,000 mg DAILY PO 02/17/21 09:00 03/26/21 09:24 Levetiracetam (Keppra) 250 mg BID PO 02/16/21 21:00 03/02/21 14:48 DC 03/02/21 09:54 Lidocaine (Lidoderm) 1 patch DAILY TP 02/17/21 09:00 02/17/21 09:24 DC Al Hydroxide/Mg Hydroxide (Mylanta Plus Xs) 15 ml PRN AFTMEALHC PRN PO DYSPEPSIA 02/16/21 17:00 02/16/21 17:36 DC Mirabegron (Myrbetriq) 50 mg DAILY PO 02/17/21 09:00 03/04/21 09:21 DC 03/03/21 08:30 Nystatin (Nystop) 1 debra BID TP 02/16/21 21:00 03/26/21 19:36 Pantoprazole Sodium (Protonix) 40 mg DAILYAC PO 02/17/21 07:30 03/25/21 08:17 Potassium Chloride (Klor-Con) 40 meq DAILY PO 02/17/21 09:00 03/04/21 09:21 DC 03/03/21 08:32 Sulfasalazine (Azulfidine) 500 mg TID PO 02/16/21 21:00 03/07/21 20:15 DC 03/06/21 13:05 Trazodone HCl (Desyrel) 50 mg QHS PO 02/16/21 21:00 03/26/21 19:37 Non-Formulary Medication (Albuterol Sulfate (Albuterol Sulfate Conc Neb Soln)) 1 vial PRN Q4HRS PRN NEB SHORTNESS OF BREATH 02/16/21 17:00 02/16/21 17:49 DC Ascorbic Acid (Vitamin C) 1,000 mg DAILY PO 02/17/21 09:00 03/04/21 09:21 DC 03/03/21 08:34 Diltiazem HCl (Cardizem) 60 mg BID PO 02/16/21 21:00 03/26/21 19:38 Lactobacillus Rhamnosus (Culturelle) 1 cap DAILY PO 02/17/21 09:00 03/04/21 09:21 DC 03/03/21 08:32 Amylase/Lipase/ Protease (Zenpep 10,000) 1 cap TIDBFRMEAL PO 02/17/21 07:30 03/26/21 16:59 Non-Formulary Medication (Magnesium Hydroxide (Milk Of Magnesia)) 2,400 mg PRN DAILY PRN PO CONSTIPATION 02/16/21 17:00 02/16/21 17:37 DC Magnesium Oxide (Magnesium Oxide) 400 mg DAILY PO 02/17/21 09:00 03/04/21 09:21 DC 03/03/21 08:31 Non-Formulary Medication (Methyl Salicylate/ Menthol (Analgesic [place]go)) 1 debra PRN Q6HRS PRN TP MUSCLE PAIN 02/16/21 17:00 02/16/21 17:37 DC Non-Formulary Medication (Umeclidinium [place] (Incruse Ellipta)) 62.5 mcg DAILY IH 02/17/21 09:00 02/16/21 17:49 DC Non-Formulary Medication (Zinc Gluconate ) 50 mg DAILY PO 02/17/21 09:00 02/16/21 17:46 DC Albuterol/ Ipratropium (Duoneb) 3 ml RTQID NEB 02/16/21 20:00 02/17/21 19:52 DC Albuterol Sulfate (Ventolin) 2.5 mg PRN Q4HRS PRN NEB SHORTNESS OF BREATH 02/16/21 18:00 Influenza Virus Vaccine Quadrival (Flulaval Quad [id number] Syringe) 0.5 ml ONCE ONCE VAX IM 02/17/21 09:00 02/17/21 09:01 DC 02/17/21 09:21 Lidocaine (Lidoderm) 1 patch DAILY PRN TP pain 02/17/21 09:30 02/27/21 10:11 Albuterol/ Ipratropium (Combivent Respimat 20-100 Mcg) 1 puff RTQID INH 02/17/21 20:00 03/26/21 19:36 Sertraline HCl (Zoloft) 25 mg DAILY PO 02/22/21 09:00 02/24/21 10:00 DC 02/24/21 09:59 Sertraline HCl (Zoloft) 50 mg DAILY PO 02/25/21 09:00 03/01/21 18:30 DC 03/01/21 10:07 Olanzapine (ZyPREXA ZYDIS) 5 mg 1X ONCE PO 02/26/21 12:03 02/26/21 12:09 DC 02/26/21 12:25 Clonazepam (KlonoPIN) 0.5 mg DAILY PO 02/28/21 09:00 03/02/21 07:00 DC 03/01/21 10:07 Bupropion HCl (Wellbutrin Xl) 150 mg DAILY PO 03/02/21 09:00 03/08/21 15:46 DC 03/08/21 08:41 Levetiracetam (Keppra) 250 mg DAILY PO 03/03/21 09:00 03/26/21 08:41 Aripiprazole (Abilify) 5 mg DAILY PO 03/05/21 09:00 03/26/21 08:41 Ondansetron HCl (Zofran Odt) 4 mg PRN Q4HRS PRN PO NAUSEA/VOMITING 03/06/21 19:30 03/06/21 19:46 Potassium Chloride (Klor-Con) 30 meq BID PO 03/07/21 09:00 03/26/21 19:39 Divalproex Sodium (Depakote Er) 1,000 mg 1700 PO 03/08/21 17:00 03/12/21 00:01 DC 03/11/21 17:27 Duloxetine HCl (Cymbalta) 30 mg 0900,1700 PO 03/08/21 17:00 03/26/21 16:59 Sulfasalazine (Azulfidine) 500 mg 0900,1300,1700 PO 03/08/21 09:00 03/26/21 16:59 Bupropion HCl (Wellbutrin Xl) 300 mg DAILY PO 03/09/21 09:00 03/26/21 08:40 Potassium Chloride (Klor-Con) 40 meq 1630,1730 PO 03/08/21 16:30 03/08/21 18:04 DC 03/08/21 16:57 Potassium Chloride (Klor-Con) 40 meq 1700,1800 PO 03/08/21 17:15 03/08/21 18:04 DC 03/08/21 17:56 Divalproex Sodium (Depakote Sprinkles) 500 mg BID PO 03/12/21 09:00 03/26/21 19:36 Clotrimazole (Mycelex-7) 1 debra QHS VG 03/18/21 21:00 03/25/21 20:59 DC 03/24/21 20:20 Dicyclomine HCl (Bentyl) 20 mg TID PO 03/18/21 21:00 03/26/21 19:37 Diphenoxylate HCl/ Atropine (Lomotil) 2 tab BID PO 03/18/21 21:00 03/26/21 19:38 I have reviewed the current psychotropics carefully including drug interactions. Risk benefit ratio favors no change other than as noted in my dictated progress note. Diagnosis: Problems: (1) Mild cognitive impairment (2) Impulse control disorder, unspecified (3) Anxiety disorder, unspecified (4) Major depressive disorder with psychotic features (5) Bipolar 1 disorder, depressed NITHIN STEVENS MD Mar 26, 2021 21:00
[2021-03-27 05:40] VITALS: BP 110/66
[2021-03-27] MEDS: DICYCLOMINE HCL 20 MG TABLET PO SCH ×3 (08:08→20:26)
[2021-03-27] MEDS: DIPHENOXYLATE/ATROPINE TABLET. PO SCH ×2 (08:08→20:27)
[2021-03-27] MEDS: buPROPion XL 300 MG TAB.ER.24H. PO SCH (08:08)
[2021-03-27] MEDS: ARIPiprazole 5 MG TABLET PO SCH (08:08)
[2021-03-27] MEDS: GABAPENTIN 300 MG CAPSULE. PO SCH ×4 (08:08→20:28)
[2021-03-27] MEDS: levETIRAcetam 250 MG TABLET PO SCH (08:08)
[2021-03-27] MEDS: DIVALPROEX 125 MG CAP.SPRINK PO SCH ×2 (08:09→20:27)
[2021-03-27] MEDS: dilTIAZem HCL 30 MG TABLET PO SCH ×2 (08:09→20:27)
[2021-03-27] MEDS: PANTOPRAZOLE 40 MG TABLET. PO SCH (08:09)
[2021-03-27] MEDS: LIPASE/PROTEAS/AMYLAS 10/32/42 CAPSULE.DR. PO SCH ×3 (08:09→17:04)
[2021-03-27] MEDS: DULoxetine HCL 30 MG CAPSULE.DR PO SCH ×2 (08:09→17:04)
[2021-03-27] MEDS: IPRATROPIUM/ALBUTEROL 20/100mcg/INH INHALER. INH SCH ×4 (08:10→20:26)
[2021-03-27] MEDS: FLUTICASONE 50MCG/NASAL SPRAY 16GM BOTTLE. NS SCH (08:10)
[2021-03-27] MEDS: POTASSIUM CHLORIDE 10 MEQ TABLET.ER. PO SCH ×2 (08:10→20:27)
[2021-03-27] MEDS: sulfaSALAzine 500 MG TABLET PO SCH ×3 (08:11→17:04)
[2021-03-27] MEDS: HYDROXYUREA 500 MG CAPSULE PO SCH (08:12)
[2021-03-27] MEDS: NYSTATIN TOPICAL POWDER 15GM BOTTLE. TP SCH ×2 (08:12→20:28)
[2021-03-27 15:26] VITALS: BP 105/67
[2021-03-27] MEDS: traZODone 50 MG TABLET. PO SCH (20:28)
--- NOTE | 2021-03-27 21:48 | PDOC ---
Exam Note: Napoleon Note: This note is a late entry for 03/25/2021 covers elements not covered in my initial note. Subjective: The patient was seen individually in the evening of 03/25/2021 with Dipesh BARR, discussed and reviewed the chart. The patient slept 7 hours previous night. Overall patient has had somewhat difficult day. Her AST and ALT have improved. She was seen by Dr. Alvarado and we will defer to Dr. Alvarado to make changes in Keppra dosage as clinically indicated. She has been anxious, restless. Per nursing report, she pushed herself off the [facility] chair onto the floor and has a bruise on the left forehead area. Dr. Cheng has ordered a CT head. The patient denies she threw herself on the floor and I addressed this with her at some length. Review of Systems: Impaired ambulation in wheelchair. Shortness of breath on O2 supplements. No CV, , eye, ENT system symptoms on review. Mental Status Exam: The patient is oriented to herself and situation. Speech is coherent, has some latency, low in volume. Abstraction fair. Computation impaired. Language function intact. Mood and affect withdrawn. She denies suicidal ideation. As I was talking to her she stated she has been wanting to save the children. She is unable to specify what she was referring to as I questioned her closely. Laboratory Data: Reviewed. Impression: Bipolar disorder, depressed. Anxiety disorder unspecified. Impulse control disorder unspecified. Plan: Continue rest psychotropics unchanged. Assessment: Vital Signs/I&O: Vital Signs Date Time Temp Pulse Resp B/P (MAP) Pulse Ox O2 Delivery O2 Flow Rate FiO2 03/27/21 20:27 84 105/67 03/27/21 15:26 97.9 18 97 2.0 03/26/21 16:05 Nasal Cannula I & O 03/26/21 03/26/21 03/27/21 15:00 23:00 07:00 Intake Total 760 ml 800 ml Balance 760 ml 800 ml Current Medications: Meds: Current Medications Medications (Trade) Dose Ordered Sig/Mya Route PRN Reason Start Time Stop Time Status Last Admin Dose Admin Acetaminophen (Tylenol) 650 mg PRN Q6HRS PRN PO MILD PAIN / TEMP > 100.3'F 02/16/21 15:45 03/04/21 09:21 DC 02/18/21 06:31 Multi-Ingredient Ointment (Analgesic [place]) 1 debra PRN QID PRN TP MUSCLE PAIN 02/16/21 15:45 03/04/21 09:21 DC Al Hydroxide/Mg Hydroxide (Mylanta Plus Xs) 15 ml PRN AFTMEALHC PRN PO DYSPEPSIA 02/16/21 15:45 03/04/21 22:05 Magnesium Hydroxide (Milk Of Magnesia) 2,400 mg PRN QHS PRN PO 1ST CHOICE CONSTIPATION 02/16/21 15:45 03/04/21 09:21 DC Acetaminophen (Tylenol) 1,000 mg Q6HRS PRN PO pain or fever 02/16/21 17:00 02/16/21 17:35 DC Acetaminophen (Tylenol) 500 mg Q4HRS PRN PO MILD PAIN 1-3 02/16/21 17:00 02/16/21 17:36 DC Bisacodyl (Dulcolax Tab) 5 mg PRN DAILY PRN PO 2ND CHOICE CONSTIPATION 02/16/21 17:00 03/04/21 09:21 DC Vitamin D (Vitamin D3) 50,000 unit WEEKLY PO 02/22/21 09:00 03/04/21 09:21 DC 02/22/21 07:16 Clonazepam (KlonoPIN) 0.5 mg BID PO 02/16/21 21:00 02/27/21 19:54 DC 02/27/21 10:11 Dicyclomine HCl (Bentyl) 20 mg TID PO 02/16/21 21:00 03/04/21 09:21 DC 03/03/21 21:07 Diphenoxylate HCl/ Atropine (Lomotil) 2 tab BID PO 02/16/21 21:00 03/04/21 09:21 DC 03/03/21 21:08 Divalproex Sodium (Depakote Er) 1,000 mg HS PO 02/16/21 21:00 03/07/21 20:15 DC 03/04/21 21:43 Duloxetine HCl (Cymbalta) 30 mg BID PO 02/16/21 21:00 03/07/21 20:15 DC 03/06/21 08:14 Fluticasone Propionate (Flonase) 2 spray DAILY NS 02/17/21 09:00 03/27/21 08:10 Furosemide (Lasix) 20 mg DAILY PO 02/17/21 09:00 03/04/21 09:21 DC 03/03/21 08:32 Gabapentin (Neurontin) 300 mg QID PO 02/16/21 17:00 03/27/21 20:28 Hydroxyurea (Hydrea) 1,000 mg DAILY PO 02/17/21 09:00 03/27/21 08:12 Levetiracetam (Keppra) 250 mg BID PO 02/16/21 21:00 03/02/21 14:48 DC 03/02/21 09:54 Lidocaine (Lidoderm) 1 patch DAILY TP 02/17/21 09:00 02/17/21 09:24 DC Al Hydroxide/Mg Hydroxide (Mylanta Plus Xs) 15 ml PRN AFTMEALHC PRN PO DYSPEPSIA 02/16/21 17:00 02/16/21 17:36 DC Mirabegron (Myrbetriq) 50 mg DAILY PO 02/17/21 09:00 03/04/21 09:21 DC 03/03/21 08:30 Nystatin (Nystop) 1 debra BID TP 02/16/21 21:00 03/27/21 20:28 Pantoprazole Sodium (Protonix) 40 mg DAILYAC PO 02/17/21 07:30 03/27/21 08:09 Potassium Chloride (Klor-Con) 40 meq DAILY PO 02/17/21 09:00 03/04/21 09:21 DC 03/03/21 08:32 Sulfasalazine (Azulfidine) 500 mg TID PO 02/16/21 21:00 03/07/21 20:15 DC 03/06/21 13:05 Trazodone HCl (Desyrel) 50 mg QHS PO 02/16/21 21:00 03/27/21 20:28 Non-Formulary Medication (Albuterol Sulfate (Albuterol Sulfate Conc Neb Soln)) 1 vial PRN Q4HRS PRN NEB SHORTNESS OF BREATH 02/16/21 17:00 02/16/21 17:49 DC Ascorbic Acid (Vitamin C) 1,000 mg DAILY PO 02/17/21 09:00 03/04/21 09:21 DC 03/03/21 08:34 Diltiazem HCl (Cardizem) 60 mg BID PO 02/16/21 21:00 03/27/21 20:27 Lactobacillus Rhamnosus (Culturelle) 1 cap DAILY PO 02/17/21 09:00 03/04/21 09:21 DC 03/03/21 08:32 Amylase/Lipase/ Protease (Zenpep 10,000) 1 cap TIDBFRMEAL PO 02/17/21 07:30 03/27/21 17:04 Non-Formulary Medication (Magnesium Hydroxide (Milk Of Magnesia)) 2,400 mg PRN DAILY PRN PO CONSTIPATION 02/16/21 17:00 02/16/21 17:37 DC Magnesium Oxide (Magnesium Oxide) 400 mg DAILY PO 02/17/21 09:00 03/04/21 09:21 DC 03/03/21 08:31 Non-Formulary Medication (Methyl Salicylate/ Menthol (Analgesic [place])) 1 debra PRN Q6HRS PRN TP MUSCLE PAIN 02/16/21 17:00 02/16/21 17:37 DC Non-Formulary Medication (Umeclidinium [place] (Incruse Ellipta)) 62.5 mcg DAILY IH 02/17/21 09:00 02/16/21 17:49 DC Non-Formulary Medication (Zinc Gluconate ) 50 mg DAILY PO 02/17/21 09:00 02/16/21 17:46 DC Albuterol/ Ipratropium (Duoneb) 3 ml RTQID NEB 02/16/21 20:00 02/17/21 19:52 DC Albuterol Sulfate (Ventolin) 2.5 mg PRN Q4HRS PRN NEB SHORTNESS OF BREATH 02/16/21 18:00 Influenza Virus Vaccine Quadrival (Flulaval Quad [id number] Syringe) 0.5 ml ONCE ONCE VAX IM 02/17/21 09:00 02/17/21 09:01 DC 02/17/21 09:21 Lidocaine (Lidoderm) 1 patch DAILY PRN TP pain 02/17/21 09:30 02/27/21 10:11 Albuterol/ Ipratropium (Combivent Respimat 20-100 Mcg) 1 puff RTQID INH 02/17/21 20:00 03/27/21 20:26 Sertraline HCl (Zoloft) 25 mg DAILY PO 02/22/21 09:00 02/24/21 10:00 DC 02/24/21 09:59 Sertraline HCl (Zoloft) 50 mg DAILY PO 02/25/21 09:00 03/01/21 18:30 DC 03/01/21 10:07 Olanzapine (ZyPREXA ZYDIS) 5 mg 1X ONCE PO 02/26/21 12:03 02/26/21 12:09 DC 02/26/21 12:25 Clonazepam (KlonoPIN) 0.5 mg DAILY PO 02/28/21 09:00 03/02/21 07:00 DC 03/01/21 10:07 Bupropion HCl (Wellbutrin Xl) 150 mg DAILY PO 03/02/21 09:00 03/08/21 15:46 DC 03/08/21 08:41 Levetiracetam (Keppra) 250 mg DAILY PO 03/03/21 09:00 03/27/21 08:08 Aripiprazole (Abilify) 5 mg DAILY PO 03/05/21 09:00 03/27/21 08:08 Ondansetron HCl (Zofran Odt) 4 mg PRN Q4HRS PRN PO NAUSEA/VOMITING 03/06/21 19:30 03/06/21 19:46 Potassium Chloride (Klor-Con) 30 meq BID PO 03/07/21 09:00 03/27/21 20:27 Divalproex Sodium (Depakote Er) 1,000 mg 1700 PO 03/08/21 17:00 03/12/21 00:01 DC 03/11/21 17:27 Duloxetine HCl (Cymbalta) 30 mg 0900,1700 PO 03/08/21 17:00 03/27/21 17:04 Sulfasalazine (Azulfidine) 500 mg 0900,1300,1700 PO 03/08/21 09:00 03/27/21 17:04 Bupropion HCl (Wellbutrin Xl) 300 mg DAILY PO 03/09/21 09:00 03/27/21 08:08 Potassium Chloride (Klor-Con) 40 meq 1630,1730 PO 03/08/21 16:30 03/08/21 18:04 DC 03/08/21 16:57 Potassium Chloride (Klor-Con) 40 meq 1700,1800 PO 03/08/21 17:15 03/08/21 18:04 DC 03/08/21 17:56 Divalproex Sodium (Depakote Sprinkles) 500 mg BID PO 03/12/21 09:00 03/27/21 20:27 Clotrimazole (Mycelex-7) 1 debra QHS VG 03/18/21 21:00 03/25/21 20:59 DC 03/24/21 20:20 Dicyclomine HCl (Bentyl) 20 mg TID PO 03/18/21 21:00 03/27/21 20:26 Diphenoxylate HCl/ Atropine (Lomotil) 2 tab BID PO 03/18/21 21:00 03/27/21 20:27 I have reviewed the current psychotropics carefully including drug interactions. Risk benefit ratio favors no change other than as noted in my dictated progress note. Diagnosis: Problems: (1) Impulse control disorder, unspecified (2) Mild cognitive impairment (3) Anxiety disorder, unspecified (4) Bipolar 1 disorder, depressed NITHIN STEVENS MD Mar 27, 2021 21:47
--- NOTE | 2021-03-27 22:09 | NUR ---
Patient seated in Broda chair near the [facility]. Tonight she was interactive and pleasant. Patient compliant with medications, taken a few at a time from a spoon with orange juice. Patient has been compliant with leaving the OK on for her oxygen, she remained seated in the Broda chair in a safe manner until bed time. No adverse behaviors noted at this time.
--- NOTE | 2021-03-27 22:21 | PDOC ---
Exam Note: Napoleon Note: This note is a late entry for 03/26/2021 covers elements not covered in my initial note. Subjective: The patient was seen individually in the evening of 03/26/2021 with Dipesh BARR, discussed and reviewed the chart. The patient slept 8 hours previous night. Overall patient had a better day. She has not thrown herself on the floor again today. She was irritable in the evening, better in the morning. Review of Systems: Impaired ambulation in wheelchair. Shortness of breath on O2 supplements. No CV, , eye, ENT system symptoms on review. Mental Status Exam: The patient is oriented to herself, little more confused this evening but some of it is understandable since she has probably not had the oxygen for a short period of time. Insight and judgment, recent and remote memory, attention and concentration, fund of knowledge is poor consistent with her diagnoses. Each time her oxygen is off, she seems more confused. Laboratory Data: Reviewed. Impression: Bipolar disorder, depressed. Anxiety disorder unspecified. Impulse control disorder unspecified. Plan: No change from initial note. Assessment: Vital Signs/I&O: Vital Signs Date Time Temp Pulse Resp B/P (MAP) Pulse Ox O2 Delivery O2 Flow Rate FiO2 03/27/21 20:27 84 105/67 03/27/21 15:26 97.9 18 97 2.0 03/26/21 16:05 Nasal Cannula I & O 03/26/21 03/26/21 03/27/21 15:00 23:00 07:00 Intake Total 760 ml 800 ml Balance 760 ml 800 ml Current Medications: Meds: Current Medications Medications (Trade) Dose Ordered Sig/Mya Route PRN Reason Start Time Stop Time Status Last Admin Dose Admin Acetaminophen (Tylenol) 650 mg PRN Q6HRS PRN PO MILD PAIN / TEMP > 100.3'F 02/16/21 15:45 03/04/21 09:21 DC 02/18/21 06:31 Multi-Ingredient Ointment (Analgesic [place]) 1 debra PRN QID PRN TP MUSCLE PAIN 02/16/21 15:45 03/04/21 09:21 DC Al Hydroxide/Mg Hydroxide (Mylanta Plus Xs) 15 ml PRN AFTMEALHC PRN PO DYSPEPSIA 02/16/21 15:45 03/04/21 22:05 Magnesium Hydroxide (Milk Of Magnesia) 2,400 mg PRN QHS PRN PO 1ST CHOICE CONSTIPATION 02/16/21 15:45 03/04/21 09:21 DC Acetaminophen (Tylenol) 1,000 mg Q6HRS PRN PO pain or fever 02/16/21 17:00 02/16/21 17:35 DC Acetaminophen (Tylenol) 500 mg Q4HRS PRN PO MILD PAIN 1-3 02/16/21 17:00 02/16/21 17:36 DC Bisacodyl (Dulcolax Tab) 5 mg PRN DAILY PRN PO 2ND CHOICE CONSTIPATION 02/16/21 17:00 03/04/21 09:21 DC Vitamin D (Vitamin D3) 50,000 unit WEEKLY PO 02/22/21 09:00 03/04/21 09:21 DC 02/22/21 07:16 Clonazepam (KlonoPIN) 0.5 mg BID PO 02/16/21 21:00 02/27/21 19:54 DC 02/27/21 10:11 Dicyclomine HCl (Bentyl) 20 mg TID PO 02/16/21 21:00 03/04/21 09:21 DC 03/03/21 21:07 Diphenoxylate HCl/ Atropine (Lomotil) 2 tab BID PO 02/16/21 21:00 03/04/21 09:21 DC 03/03/21 21:08 Divalproex Sodium (Depakote Er) 1,000 mg HS PO 02/16/21 21:00 03/07/21 20:15 DC 03/04/21 21:43 Duloxetine HCl (Cymbalta) 30 mg BID PO 02/16/21 21:00 03/07/21 20:15 DC 03/06/21 08:14 Fluticasone Propionate (Flonase) 2 spray DAILY NS 02/17/21 09:00 03/27/21 08:10 Furosemide (Lasix) 20 mg DAILY PO 02/17/21 09:00 03/04/21 09:21 DC 03/03/21 08:32 Gabapentin (Neurontin) 300 mg QID PO 02/16/21 17:00 03/27/21 20:28 Hydroxyurea (Hydrea) 1,000 mg DAILY PO 02/17/21 09:00 03/27/21 08:12 Levetiracetam (Keppra) 250 mg BID PO 02/16/21 21:00 03/02/21 14:48 DC 03/02/21 09:54 Lidocaine (Lidoderm) 1 patch DAILY TP 02/17/21 09:00 02/17/21 09:24 DC Al Hydroxide/Mg Hydroxide (Mylanta Plus Xs) 15 ml PRN AFTMEALHC PRN PO DYSPEPSIA 02/16/21 17:00 02/16/21 17:36 DC Mirabegron (Myrbetriq) 50 mg DAILY PO 02/17/21 09:00 03/04/21 09:21 DC 03/03/21 08:30 Nystatin (Nystop) 1 debra BID TP 02/16/21 21:00 03/27/21 20:28 Pantoprazole Sodium (Protonix) 40 mg DAILYAC PO 02/17/21 07:30 03/27/21 08:09 Potassium Chloride (Klor-Con) 40 meq DAILY PO 02/17/21 09:00 03/04/21 09:21 DC 03/03/21 08:32 Sulfasalazine (Azulfidine) 500 mg TID PO 02/16/21 21:00 03/07/21 20:15 DC 03/06/21 13:05 Trazodone HCl (Desyrel) 50 mg QHS PO 02/16/21 21:00 03/27/21 20:28 Non-Formulary Medication (Albuterol Sulfate (Albuterol Sulfate Conc Neb Soln)) 1 vial PRN Q4HRS PRN NEB SHORTNESS OF BREATH 02/16/21 17:00 02/16/21 17:49 DC Ascorbic Acid (Vitamin C) 1,000 mg DAILY PO 02/17/21 09:00 03/04/21 09:21 DC 03/03/21 08:34 Diltiazem HCl (Cardizem) 60 mg BID PO 02/16/21 21:00 03/27/21 20:27 Lactobacillus Rhamnosus (Culturelle) 1 cap DAILY PO 02/17/21 09:00 03/04/21 09:21 DC 03/03/21 08:32 Amylase/Lipase/ Protease (Zenpep 10,000) 1 cap TIDBFRMEAL PO 02/17/21 07:30 03/27/21 17:04 Non-Formulary Medication (Magnesium Hydroxide (Milk Of Magnesia)) 2,400 mg PRN DAILY PRN PO CONSTIPATION 02/16/21 17:00 02/16/21 17:37 DC Magnesium Oxide (Magnesium Oxide) 400 mg DAILY PO 02/17/21 09:00 03/04/21 09:21 DC 03/03/21 08:31 Non-Formulary Medication (Methyl Salicylate/ Menthol (Analgesic [place])) 1 debra PRN Q6HRS PRN TP MUSCLE PAIN 02/16/21 17:00 02/16/21 17:37 DC Non-Formulary Medication (Umeclidinium [place] (Incruse Ellipta)) 62.5 mcg DAILY IH 02/17/21 09:00 02/16/21 17:49 DC Non-Formulary Medication (Zinc Gluconate ) 50 mg DAILY PO 02/17/21 09:00 02/16/21 17:46 DC Albuterol/ Ipratropium (Duoneb) 3 ml RTQID NEB 02/16/21 20:00 02/17/21 19:52 DC Albuterol Sulfate (Ventolin) 2.5 mg PRN Q4HRS PRN NEB SHORTNESS OF BREATH 02/16/21 18:00 Influenza Virus Vaccine Quadrival (Flulaval Quad [id number] Syringe) 0.5 ml ONCE ONCE VAX IM 02/17/21 09:00 02/17/21 09:01 DC 02/17/21 09:21 Lidocaine (Lidoderm) 1 patch DAILY PRN TP pain 02/17/21 09:30 02/27/21 10:11 Albuterol/ Ipratropium (Combivent Respimat 20-100 Mcg) 1 puff RTQID INH 02/17/21 20:00 03/27/21 20:26 Sertraline HCl (Zoloft) 25 mg DAILY PO 02/22/21 09:00 02/24/21 10:00 DC 02/24/21 09:59 Sertraline HCl (Zoloft) 50 mg DAILY PO 02/25/21 09:00 03/01/21 18:30 DC 03/01/21 10:07 Olanzapine (ZyPREXA ZYDIS) 5 mg 1X ONCE PO 02/26/21 12:03 02/26/21 12:09 DC 02/26/21 12:25 Clonazepam (KlonoPIN) 0.5 mg DAILY PO 02/28/21 09:00 03/02/21 07:00 DC 03/01/21 10:07 Bupropion HCl (Wellbutrin Xl) 150 mg DAILY PO 03/02/21 09:00 03/08/21 15:46 DC 03/08/21 08:41 Levetiracetam (Keppra) 250 mg DAILY PO 03/03/21 09:00 03/27/21 08:08 Aripiprazole (Abilify) 5 mg DAILY PO 03/05/21 09:00 03/27/21 08:08 Ondansetron HCl (Zofran Odt) 4 mg PRN Q4HRS PRN PO NAUSEA/VOMITING 03/06/21 19:30 03/06/21 19:46 Potassium Chloride (Klor-Con) 30 meq BID PO 03/07/21 09:00 03/27/21 20:27 Divalproex Sodium (Depakote Er) 1,000 mg 1700 PO 03/08/21 17:00 03/12/21 00:01 DC 03/11/21 17:27 Duloxetine HCl (Cymbalta) 30 mg 0900,1700 PO 03/08/21 17:00 03/27/21 17:04 Sulfasalazine (Azulfidine) 500 mg 0900,1300,1700 PO 03/08/21 09:00 03/27/21 17:04 Bupropion HCl (Wellbutrin Xl) 300 mg DAILY PO 03/09/21 09:00 03/27/21 08:08 Potassium Chloride (Klor-Con) 40 meq 1630,1730 PO 03/08/21 16:30 03/08/21 18:04 DC 03/08/21 16:57 Potassium Chloride (Klor-Con) 40 meq 1700,1800 PO 03/08/21 17:15 03/08/21 18:04 DC 03/08/21 17:56 Divalproex Sodium (Depakote Sprinkles) 500 mg BID PO 03/12/21 09:00 03/27/21 20:27 Clotrimazole (Mycelex-7) 1 debra QHS VG 03/18/21 21:00 03/25/21 20:59 DC 03/24/21 20:20 Dicyclomine HCl (Bentyl) 20 mg TID PO 03/18/21 21:00 03/27/21 20:26 Diphenoxylate HCl/ Atropine (Lomotil) 2 tab BID PO 03/18/21 21:00 03/27/21 20:27 I have reviewed the current psychotropics carefully including drug interactions. Risk benefit ratio favors no change other than as noted in my dictated progress note. Diagnosis: Problems: (1) Impulse control disorder, unspecified (2) Mild cognitive impairment (3) Anxiety disorder, unspecified (4) Bipolar 1 disorder, depressed NITHIN STEVENS MD Mar 27, 2021 22:21
--- NOTE | 2021-03-27 22:22 | PDOC ---
Exam Note: Napoleon Note: Please also refer to the separate dictated note~for this date of service dictated separately.~Patient seen individually. Discussed the patient with Nursing staff reviewed the chart.~Reviewed interim history and current functioning. Reviewed vital signs,~Labs/ Radiology~and current medications noted below. Continue current treatment with the changes noted in the dictated addendum note Assessment: Vital Signs/I&O: Vital Signs Date Time Temp Pulse Resp B/P (MAP) Pulse Ox O2 Delivery O2 Flow Rate FiO2 03/27/21 20:27 84 105/67 03/27/21 15:26 97.9 18 97 2.0 03/26/21 16:05 Nasal Cannula I & O 0 03/26/21 03/26/21 03/27/21 15:00 23:00 07:00 Intake Total 760 ml 800 ml Balance 760 ml 800 ml Current Medications: Meds: Current Medications Medications (Trade) Dose Ordered Sig/Mya Route PRN Reason Start Time Stop Time Status Last Admin Dose Admin Acetaminophen (Tylenol) 650 mg PRN Q6HRS PRN PO MILD PAIN / TEMP > 100.3'F 02/16/21 15:45 03/04/21 09:21 DC 02/18/21 06:31 Multi-Ingredient Ointment (Analgesic [place]) 1 debra PRN QID PRN TP MUSCLE PAIN 02/16/21 15:45 03/04/21 09:21 DC Al Hydroxide/Mg Hydroxide (Mylanta Plus Xs) 15 ml PRN AFTMEALHC PRN PO DYSPEPSIA 02/16/21 15:45 03/04/21 22:05 Magnesium Hydroxide (Milk Of Magnesia) 2,400 mg PRN QHS PRN PO 1ST CHOICE CONSTIPATION 02/16/21 15:45 03/04/21 09:21 DC Acetaminophen (Tylenol) 1,000 mg Q6HRS PRN PO pain or fever 02/16/21 17:00 02/16/21 17:35 DC Acetaminophen (Tylenol) 500 mg Q4HRS PRN PO MILD PAIN 1-3 02/16/21 17:00 02/16/21 17:36 DC Bisacodyl (Dulcolax Tab) 5 mg PRN DAILY PRN PO 2ND CHOICE CONSTIPATION 02/16/21 17:00 03/04/21 09:21 DC Vitamin D (Vitamin D3) 50,000 unit WEEKLY PO 10/13/21 09:00 03/04/21 09:21 DC 02/22/21 07:16 Clonazepam (KlonoPIN) 0.5 mg BID PO 02/16/21 21:00 02/27/21 19:54 DC 02/27/21 10:11 Dicyclomine HCl (Bentyl) 20 mg TID PO 02/16/21 21:00 03/04/21 09:21 DC 03/03/21 21:07 Diphenoxylate HCl/ Atropine (Lomotil) 2 tab BID PO 02/16/21 21:00 03/04/21 09:21 DC 03/03/21 21:08 Divalproex Sodium (Depakote Er) 1,000 mg HS PO 02/16/21 21:00 03/07/21 20:15 DC 03/04/21 21:43 Duloxetine HCl (Cymbalta) 30 mg BID PO 02/16/21 21:00 03/07/21 20:15 DC 03/06/21 08:14 Fluticasone Propionate (Flonase) 2 spray DAILY NS 02/17/21 09:00 03/27/21 08:10 Furosemide (Lasix) 20 mg DAILY PO 02/17/21 09:00 03/04/21 09:21 DC 03/03/21 08:32 Gabapentin (Neurontin) 300 mg QID PO 02/16/21 17:00 03/27/21 20:28 Hydroxyurea (Hydrea) 1,000 mg DAILY PO 02/17/21 09:00 03/27/21 08:12 Levetiracetam (Keppra) 250 mg BID PO 02/16/21 21:00 03/02/21 14:48 DC 03/02/21 09:54 Lidocaine (Lidoderm) 1 patch DAILY TP 02/17/21 09:00 02/17/21 09:24 DC Al Hydroxide/Mg Hydroxide (Mylanta Plus Xs) 15 ml PRN AFTMEALHC PRN PO DYSPEPSIA 02/16/21 17:00 02/16/21 17:36 DC Mirabegron (Myrbetriq) 50 mg DAILY PO 02/17/21 09:00 03/04/21 09:21 DC 03/03/21 08:30 Nystatin (Nystop) 1 debra BID TP 02/16/21 21:00 03/27/21 20:28 Pantoprazole Sodium (Protonix) 40 mg DAILYAC PO 02/17/21 07:30 03/27/21 08:09 Potassium Chloride (Klor-Con) 40 meq DAILY PO 02/17/21 09:00 03/04/21 09:21 DC 03/03/21 08:32 Sulfasalazine (Azulfidine) 500 mg TID PO 02/16/21 21:00 03/07/21 20:15 DC 03/06/21 13:05 Trazodone HCl (Desyrel) 50 mg QHS PO 02/16/21 21:00 03/27/21 20:28 Non-Formulary Medication (Albuterol Sulfate (Albuterol Sulfate Conc Neb Soln)) 1 vial PRN Q4HRS PRN NEB SHORTNESS OF BREATH 02/16/21 17:00 02/16/21 17:49 DC Ascorbic Acid (Vitamin C) 1,000 mg DAILY PO 02/17/21 09:00 03/04/21 09:21 DC 03/03/21 08:34 Diltiazem HCl (Cardizem) 60 mg BID PO 02/16/21 21:00 03/27/21 20:27 Lactobacillus Rhamnosus (Culturelle) 1 cap DAILY PO 02/17/21 09:00 03/04/21 09:21 DC 03/03/21 08:32 Amylase/Lipase/ Protease (Zenpep 10,000) 1 cap TIDBFRMEAL PO 02/17/21 07:30 03/27/21 17:04 Non-Formulary Medication (Magnesium Hydroxide (Milk Of Magnesia)) 2,400 mg PRN DAILY PRN PO CONSTIPATION 02/16/21 17:00 02/16/21 17:37 DC Magnesium Oxide (Magnesium Oxide) 400 mg DAILY PO 02/17/21 09:00 03/04/21 09:21 DC 03/03/21 08:31 Non-Formulary Medication (Methyl Salicylate/ Menthol (Analgesic [place])) 1 debra PRN Q6HRS PRN TP MUSCLE PAIN 02/16/21 17:00 02/16/21 17:37 DC Non-Formulary Medication (Umeclidinium [place] (Incruse Ellipta)) 62.5 mcg DAILY IH 02/17/21 09:00 02/16/21 17:49 DC Non-Formulary Medication (Zinc Gluconate ) 50 mg DAILY PO 02/17/21 09:00 02/16/21 17:46 DC Albuterol/ Ipratropium (Duoneb) 3 ml RTQID NEB 02/16/21 20:00 02/17/21 19:52 DC Albuterol Sulfate (Ventolin) 2.5 mg PRN Q4HRS PRN NEB SHORTNESS OF BREATH 02/16/21 18:00 Influenza Virus Vaccine Quadrival (Flulaval Quad [id number] Syringe) 0.5 ml ONCE ONCE VAX IM 02/17/21 09:00 02/17/21 09:01 DC 02/17/21 09:21 Lidocaine (Lidoderm) 1 patch DAILY PRN TP pain 02/17/21 09:30 02/27/21 10:11 Albuterol/ Ipratropium (Combivent Respimat 20-100 Mcg) 1 puff RTQID INH 02/17/21 20:00 03/27/21 20:26 Sertraline HCl (Zoloft) 25 mg DAILY PO 02/22/21 09:00 02/24/21 10:00 DC 02/24/21 09:59 Sertraline HCl (Zoloft) 50 mg DAILY PO 02/25/21 09:00 03/01/21 18:30 DC 03/01/21 10:07 Olanzapine (ZyPREXA ZYDIS) 5 mg 1X ONCE PO 02/26/21 12:03 02/26/21 12:09 DC 02/26/21 12:25 Clonazepam (KlonoPIN) 0.5 mg DAILY PO 02/28/21 09:00 03/02/21 07:00 DC 03/01/21 10:07 Bupropion HCl (Wellbutrin Xl) 150 mg DAILY PO 03/02/21 09:00 03/08/21 15:46 DC 03/08/21 08:41 Levetiracetam (Keppra) 250 mg DAILY PO 03/03/21 09:00 03/27/21 08:08 Aripiprazole (Abilify) 5 mg DAILY PO 03/05/21 09:00 03/27/21 08:08 Ondansetron HCl (Zofran Odt) 4 mg PRN Q4HRS PRN PO NAUSEA/VOMITING 03/06/21 19:30 03/06/21 19:46 Potassium Chloride (Klor-Con) 30 meq BID PO 03/07/21 09:00 03/27/21 20:27 Divalproex Sodium (Depakote Er) 1,000 mg 1700 PO 03/08/21 17:00 03/12/21 00:01 DC 03/11/21 17:27 Duloxetine HCl (Cymbalta) 30 mg 0900,1700 PO 03/08/21 17:00 03/27/21 17:04 Sulfasalazine (Azulfidine) 500 mg 0900,1300,1700 PO 03/08/21 09:00 03/27/21 17:04 Bupropion HCl (Wellbutrin Xl) 300 mg DAILY PO 03/09/21 09:00 03/27/21 08:08 Potassium Chloride (Klor-Con) 40 meq 1630,1730 PO 03/08/21 16:30 03/08/21 18:04 DC 03/08/21 16:57 Potassium Chloride (Klor-Con) 40 meq 1700,1800 PO 03/08/21 17:15 03/08/21 18:04 DC 03/08/21 17:56 Divalproex Sodium (Depakote Sprinkles) 500 mg BID PO 03/12/21 09:00 03/27/21 20:27 Clotrimazole (Mycelex-7) 1 debra QHS VG 03/18/21 21:00 03/25/21 20:59 DC 03/24/21 20:20 Dicyclomine HCl (Bentyl) 20 mg TID PO 03/18/21 21:00 03/27/21 20:26 Diphenoxylate HCl/ Atropine (Lomotil) 2 tab BID PO 03/18/21 21:00 03/27/21 20:27 I have reviewed the current psychotropics carefully including drug interactions. Risk benefit ratio favors no change other than as noted in my dictated progress note. Diagnosis: Problems: (1) Impulse control disorder, unspecified (2) Mild cognitive impairment (3) Anxiety disorder, unspecified (4) Bipolar 1 disorder, depressed NITHIN STEVENS MD Mar 27, 2021 22:22
[2021-03-28 06:11] VITALS: BP 112/77
[2021-03-28] MEDS: IPRATROPIUM/ALBUTEROL 20/100mcg/INH INHALER. INH SCH ×4 (08:00→20:05)
[2021-03-28] MEDS: FLUTICASONE 50MCG/NASAL SPRAY 16GM BOTTLE. NS SCH (08:32)
[2021-03-28] MEDS: DIVALPROEX 125 MG CAP.SPRINK PO SCH ×2 (08:33→20:06)
[2021-03-28] MEDS: POTASSIUM CHLORIDE 10 MEQ TABLET.ER. PO SCH ×2 (08:33→20:07)
[2021-03-28] MEDS: dilTIAZem HCL 30 MG TABLET PO SCH ×2 (08:33→20:23)
[2021-03-28] MEDS: ARIPiprazole 5 MG TABLET PO SCH (08:34)
[2021-03-28] MEDS: buPROPion XL 300 MG TAB.ER.24H. PO SCH (08:34)
[2021-03-28] MEDS: DULoxetine HCL 30 MG CAPSULE.DR PO SCH ×2 (08:34→17:11)
[2021-03-28] MEDS: sulfaSALAzine 500 MG TABLET PO SCH ×3 (08:34→17:00)
[2021-03-28] MEDS: GABAPENTIN 300 MG CAPSULE. PO SCH ×4 (08:34→20:07)
[2021-03-28] MEDS: PANTOPRAZOLE 40 MG TABLET. PO SCH (08:34)
[2021-03-28] MEDS: DICYCLOMINE HCL 20 MG TABLET PO SCH ×3 (08:34→20:07)
[2021-03-28] MEDS: levETIRAcetam 250 MG TABLET PO SCH (08:34)
[2021-03-28] MEDS: LIPASE/PROTEAS/AMYLAS 10/32/42 CAPSULE.DR. PO SCH ×3 (08:34→17:11)
[2021-03-28] MEDS: HYDROXYUREA 500 MG CAPSULE PO SCH (08:35)
[2021-03-28] MEDS: LIDOCAINE (700MG/PATCH) PATCH. TP PRN (08:37)
[2021-03-28] MEDS: NYSTATIN TOPICAL POWDER 15GM BOTTLE. TP SCH ×2 (08:47→20:24)
[2021-03-28] MEDS: DIPHENOXYLATE/ATROPINE TABLET. PO SCH ×2 (08:47→20:07)
--- NOTE | 2021-03-28 09:44 | NUR ---
PATIENT LOCATED IN A DINING ROOM UPON ASSESSMENT, CALM AND COMPLIANT WITH MEDICATIONS, PLEASANT, SMILING, ENGAGING IN CONVERSATION, POLITE. PATIENT REQUESTED LIDODERM PATCH FOR HER BACK PAIN. PATIENT IS CURRENTLY LOCATED IN DAY ROOM WATCHING TV, NO DISTURBING BEHAVIOR NOTED.
[2021-03-28 14:51] LABS: BASO % 1 % (0-3); EOS # 0.2 x10^3/uL (0.0-0.7); EOS % 3 % (0-3); HEMATOCRIT 38.5 % (36.0-47.0); HEMOGLOBIN 12.9 g/dL (12.0-15.5); LYMPH # 1.2 x10^3/uL (1.0-4.8); LYMPH % 19 % (24-48); MEAN CORPUSCULAR HEMOGLOBIN 37 pg (25-35); MEAN CORPUSCULAR HGB CONC 34 g/dL (31-37); MEAN CORPUSCULAR VOLUME 112 fL (79-100); MONO # 0.6 x10^3/uL (0.0-1.1); MONO % 9 % (0-9); NEUT # 4.3 x10^3uL (1.8-7.7); NEUT % 69 % (31-73); PLATELET COUNT 293 x10^3/uL (140-400); RED BLOOD COUNT 3.46 x10^6/uL (3.50-5.40); RED CELL DISTRIBUTION WIDTH 16.7 % (11.5-14.5); WHITE BLOOD COUNT 6.3 x10^3/uL (4.0-11.0)
[2021-03-28 15:00] LABS: ALBUMIN 2.9 g/dL (3.4-5.0); ALBUMIN/GLOBULIN RATIO 0.8 (1.0-1.7); CREATININE 0.6 mg/dL (0.6-1.0); GFR 99.1; POTASSIUM 4.1 mmol/L (3.5-5.1); TOTAL BILIRUBIN 0.4 mg/dL (0.2-1.0); TOTAL PROTEIN 6.7 g/dL (6.4-8.2)
[2021-03-28 15:41] VITALS: BP 105/57
--- NOTE | 2021-03-28 17:24 | NUR ---
Pt verbalized objection to medications being administered crushed and mixed into applesauce. When educated that crushing was d/t her spitting out tablets and not swallowing them she replied, "I never did that." Medications administered crushed and mixed into applesauce.
[2021-03-28 18:47] LABS: PLT ESTIMATE ADEQUATE (ADEQUATE)
[2021-03-28] MEDS: traZODone 50 MG TABLET. PO SCH (20:07)
--- NOTE | 2021-03-28 20:51 | PDOC ---
Exam Note: Napoleon Note: Please also refer to the separate dictated note~for this date of service dictated separately.~Patient seen individually. Discussed the patient with Nursing staff reviewed the chart.~Reviewed interim history and current functioning. Reviewed vital signs,~Labs/ Radiology~and current medications noted below. Continue current treatment with the changes noted in the dictated addendum note Assessment: Vital Signs/I&O: Vital Signs Date Time Temp Pulse Resp B/P (MAP) Pulse Ox O2 Delivery O2 Flow Rate FiO2 03/28/21 20:23 85 105/57 03/28/21 15:41 98.6 18 96 03/28/21 06:11 2.0 03/26/21 16:05 Nasal Cannula I & O 03/27/21 03/27/21 03/28/21 15:00 23:00 07:00 Intake Total 720 ml 360 ml 120 ml Balance 720 ml 360 ml 120 ml Labs: Laboratory Tests Test 03/28/21 14:37 White Blood Count 6.3 x10^3/uL (4.0-11.0) Red Blood Count 3.46 x10^6/uL (3.50-5.40) L Hemoglobin 12.9 g/dL (12.0-15.5) Hematocrit 38.5 % (36.0-47.0) Mean Corpuscular Volume 112 fL (79-100) H Mean Corpuscular Hemoglobin 37 pg (25-35) H Mean Corpuscular Hemoglobin Concent 34 g/dL (31-37) Red Cell Distribution Width 16.7 % (11.5-14.5) H Platelet Count 293 x10^3/uL (140-400) Neutrophils (%) (Auto) 69 % (31-73) Lymphocytes (%) (Auto) 19 % (24-48) L Monocytes (%) (Auto) 9 % (0-9) Eosinophils (%) (Auto) 3 % (0-3) Basophils (%) (Auto) 1 % (0-3) Neutrophils # (Auto) 4.3 x10^3uL (1.8-7.7) Lymphocytes # (Auto) 1.2 x10^3/uL (1.0-4.8) Monocytes # (Auto) 0.6 x10^3/uL (0.0-1.1) Eosinophils # (Auto) 0.2 x10^3/uL (0.0-0.7) Basophils # (Auto) 0.0 x10^3/uL (0.0-0.2) Platelet Estimate Adequate (ADEQUATE) Macrocytosis Mod Sodium Level 137 mmol/L (136-145) Potassium Level 4.1 mmol/L (3.5-5.1) Chloride Level 99 mmol/L (98-107) Carbon Dioxide Level 32 mmol/L (21-32) Anion Gap 6 (6-14) Blood Urea Nitrogen 13 mg/dL (7-20) Creatinine 0.6 mg/dL (0.6-1.0) Estimated GFR (Cockcroft-Gault) 99.1 BUN/Creatinine Ratio 22 (6-20) H Glucose Level 92 mg/dL (70-99) Calcium Level 9.0 mg/dL (8.5-10.1) Total Bilirubin 0.4 mg/dL (0.2-1.0) Aspartate Amino Transferase (AST) 30 U/L (15-37) Alanine Aminotransferase (ALT) 35 U/L (14-59) Alkaline Phosphatase 149 U/L (46-116) H Total Protein 6.7 g/dL (6.4-8.2) Albumin 2.9 g/dL (3.4-5.0) L Albumin/Globulin Ratio 0.8 (1.0-1.7) L Current Medications: Meds: Laboratory Tests Test 03/28/21 14:37 White Blood Count 6.3 x10^3/uL Red Blood Count 3.46 x10^6/uL Hemoglobin 12.9 g/dL Hematocrit 38.5 % Mean Corpuscular Volume 112 fL Mean Corpuscular Hemoglobin 37 pg Mean Corpuscular Hemoglobin Concent 34 g/dL Red Cell Distribution Width 16.7 % Platelet Count 293 x10^3/uL Neutrophils (%) (Auto) 69 % Lymphocytes (%) (Auto) 19 % Monocytes (%) (Auto) 9 % Eosinophils (%) (Auto) 3 % Basophils (%) (Auto) 1 % Neutrophils # (Auto) 4.3 x10^3uL Lymphocytes # (Auto) 1.2 x10^3/uL Monocytes # (Auto) 0.6 x10^3/uL Eosinophils # (Auto) 0.2 x10^3/uL Basophils # (Auto) 0.0 x10^3/uL Platelet Estimate Adequate Macrocytosis Mod Sodium Level 137 mmol/L Potassium Level 4.1 mmol/L Chloride Level 99 mmol/L Carbon Dioxide Level 32 mmol/L Anion Gap 6 Blood Urea Nitrogen 13 mg/dL Creatinine 0.6 mg/dL Estimated GFR (Cockcroft-Gault) 99.1 BUN/Creatinine Ratio 22 Glucose Level 92 mg/dL Calcium Level 9.0 mg/dL Total Bilirubin 0.4 mg/dL Aspartate Amino Transf (AST/SGOT) 30 U/L Alanine Aminotransferase (ALT/SGPT) 35 U/L Alkaline Phosphatase 149 U/L Total Protein 6.7 g/dL Albumin 2.9 g/dL Albumin/Globulin Ratio 0.8 Current Medications Medications (Trade) Dose Ordered Sig/Mya Route PRN Reason Start Time Stop Time Status Last Admin Dose Admin Acetaminophen (Tylenol) 650 mg PRN Q6HRS PRN PO MILD PAIN / TEMP > 100.3'F 02/16/21 15:45 03/04/21 09:21 DC 02/18/21 06:31 Multi-Ingredient Ointment (Analgesic [place]) 1 debra PRN QID PRN TP MUSCLE PAIN 02/16/21 15:45 03/04/21 09:21 DC Al Hydroxide/Mg Hydroxide (Mylanta Plus Xs) 15 ml PRN AFTMEALHC PRN PO DYSPEPSIA 02/16/21 15:45 03/04/21 22:05 Magnesium Hydroxide (Milk Of Magnesia) 2,400 mg PRN QHS PRN PO 1ST CHOICE CONSTIPATION 02/16/21 15:45 03/04/21 09:21 DC Acetaminophen (Tylenol) 1,000 mg Q6HRS PRN PO pain or fever 02/16/21 17:00 02/16/21 17:35 DC Acetaminophen (Tylenol) 500 mg Q4HRS PRN PO MILD PAIN 1-3 02/16/21 17:00 02/16/21 17:36 DC Bisacodyl (Dulcolax Tab) 5 mg PRN DAILY PRN PO 2ND CHOICE CONSTIPATION 02/16/21 17:00 03/04/21 09:21 DC Vitamin D (Vitamin D3) 50,000 unit WEEKLY PO 02/22/21 09:00 03/04/21 09:21 DC 02/22/21 07:16 Clonazepam (KlonoPIN) 0.5 mg BID PO 02/16/21 21:00 02/27/21 19:54 DC 02/27/21 10:11 Dicyclomine HCl (Bentyl) 20 mg TID PO 02/16/21 21:00 03/04/21 09:21 DC 03/03/21 21:07 Diphenoxylate HCl/ Atropine (Lomotil) 2 tab BID PO 02/16/21 21:00 03/04/21 09:21 DC 03/03/21 21:08 Divalproex Sodium (Depakote Er) 1,000 mg HS PO 02/16/21 21:00 03/07/21 20:15 DC 03/04/21 21:43 Duloxetine HCl (Cymbalta) 30 mg BID PO 02/16/21 21:00 03/07/21 20:15 DC 03/06/21 08:14 Fluticasone Propionate (Flonase) 2 spray DAILY NS 02/17/21 09:00 03/28/21 08:32 Furosemide (Lasix) 20 mg DAILY PO 02/17/21 09:00 03/04/21 09:21 DC 03/03/21 08:32 Gabapentin (Neurontin) 300 mg QID PO 02/16/21 17:00 03/28/21 20:07 Hydroxyurea (Hydrea) 1,000 mg DAILY PO 02/17/21 09:00 03/28/21 08:35 Levetiracetam (Keppra) 250 mg BID PO 02/16/21 21:00 03/02/21 14:48 DC 03/02/21 09:54 Lidocaine (Lidoderm) 1 patch DAILY TP 02/17/21 09:00 02/17/21 09:24 DC Al Hydroxide/Mg Hydroxide (Mylanta Plus Xs) 15 ml PRN AFTMEALHC PRN PO DYSPEPSIA 02/16/21 17:00 02/16/21 17:36 DC Mirabegron (Myrbetriq) 50 mg DAILY PO 02/17/21 09:00 03/04/21 09:21 DC 03/03/21 08:30 Nystatin (Nystop) 1 debra BID TP 02/16/21 21:00 03/28/21 08:47 Pantoprazole Sodium (Protonix) 40 mg DAILYAC PO 02/17/21 07:30 03/28/21 08:34 Potassium Chloride (Klor-Con) 40 meq DAILY PO 02/17/21 09:00 03/04/21 09:21 DC 03/03/21 08:32 Sulfasalazine (Azulfidine) 500 mg TID PO 02/16/21 21:00 03/07/21 20:15 DC 03/06/21 13:05 Trazodone HCl (Desyrel) 50 mg QHS PO 02/16/21 21:00 03/28/21 20:07 Non-Formulary Medication (Albuterol Sulfate (Albuterol Sulfate Conc Neb Soln)) 1 vial PRN Q4HRS PRN NEB SHORTNESS OF BREATH 02/16/21 17:00 02/16/21 17:49 DC Ascorbic Acid (Vitamin C) 1,000 mg DAILY PO 02/17/21 09:00 03/04/21 09:21 DC 03/03/21 08:34 Diltiazem HCl (Cardizem) 60 mg BID PO 02/16/21 21:00 03/28/21 08:33 Lactobacillus Rhamnosus (Culturelle) 1 cap DAILY PO 02/17/21 09:00 03/04/21 09:21 DC 03/03/21 08:32 Amylase/Lipase/ Protease (Zenpep 10,000) 1 cap TIDBFRMEAL PO 02/17/21 07:30 03/28/21 17:11 Non-Formulary Medication (Magnesium Hydroxide (Milk Of Magnesia)) 2,400 mg PRN DAILY PRN PO CONSTIPATION 02/16/21 17:00 02/16/21 17:37 DC Magnesium Oxide (Magnesium Oxide) 400 mg DAILY PO 02/17/21 09:00 03/04/21 09:21 DC 03/03/21 08:31 Non-Formulary Medication (Methyl Salicylate/ Menthol (Analgesic [place])) 1 debra PRN Q6HRS PRN TP MUSCLE PAIN 02/16/21 17:00 02/16/21 17:37 DC Non-Formulary Medication (Umeclidinium [place] (Incruse Ellipta)) 62.5 mcg DAILY IH 02/17/21 09:00 02/16/21 17:49 DC Non-Formulary Medication (Zinc Gluconate ) 50 mg DAILY PO 02/17/21 09:00 02/16/21 17:46 DC Albuterol/ Ipratropium (Duoneb) 3 ml RTQID NEB 02/16/21 20:00 02/17/21 19:52 DC Albuterol Sulfate (Ventolin) 2.5 mg PRN Q4HRS PRN NEB SHORTNESS OF BREATH 02/16/21 18:00 Influenza Virus Vaccine Quadrival (Flulaval Quad [id number] Syringe) 0.5 ml ONCE ONCE VAX IM 02/17/21 09:00 02/17/21 09:01 DC 02/17/21 09:21 Lidocaine (Lidoderm) 1 patch DAILY PRN TP pain 02/17/21 09:30 03/28/21 08:37 Albuterol/ Ipratropium (Combivent Respimat 20-100 Mcg) 1 puff RTQID INH 02/17/21 20:00 03/28/21 20:05 Sertraline HCl (Zoloft) 25 mg DAILY PO 02/22/21 09:00 02/24/21 10:00 DC 02/24/21 09:59 Sertraline HCl (Zoloft) 50 mg DAILY PO 02/25/21 09:00 03/01/21 18:30 DC 03/01/21 10:07 Olanzapine (ZyPREXA ZYDIS) 5 mg 1X ONCE PO 02/26/21 12:03 02/26/21 12:09 DC 02/26/21 12:25 Clonazepam (KlonoPIN) 0.5 mg DAILY PO 02/28/21 09:00 03/02/21 07:00 DC 03/01/21 10:07 Bupropion HCl (Wellbutrin Xl) 150 mg DAILY PO 03/02/21 09:00 03/08/21 15:46 DC 03/08/21 08:41 Levetiracetam (Keppra) 250 mg DAILY PO 03/03/21 09:00 03/28/21 08:34 Aripiprazole (Abilify) 5 mg DAILY PO 03/05/21 09:00 03/28/21 08:34 Ondansetron HCl (Zofran Odt) 4 mg PRN Q4HRS PRN PO NAUSEA/VOMITING 03/06/21 19:30 03/06/21 19:46 Potassium Chloride (Klor-Con) 30 meq BID PO 03/07/21 09:00 03/28/21 20:07 Divalproex Sodium (Depakote Er) 1,000 mg 1700 PO 03/08/21 17:00 03/12/21 00:01 DC 03/11/21 17:27 Duloxetine HCl (Cymbalta) 30 mg 0900,1700 PO 03/08/21 17:00 03/28/21 17:11 Sulfasalazine (Azulfidine) 500 mg 0900,1300,1700 PO 03/08/21 09:00 03/28/21 17:00 Bupropion HCl (Wellbutrin Xl) 300 mg DAILY PO 03/09/21 09:00 03/28/21 08:34 Potassium Chloride (Klor-Con) 40 meq 1630,1730 PO 03/08/21 16:30 03/08/21 18:04 DC 03/08/21 16:57 Potassium Chloride (Klor-Con) 40 meq 1700,1800 PO 03/08/21 17:15 03/08/21 18:04 DC 03/08/21 17:56 Divalproex Sodium (Depakote Sprinkles) 500 mg BID PO 03/12/21 09:00 03/28/21 20:06 Clotrimazole (Mycelex-7) 1 debra QHS VG 03/18/21 21:00 03/25/21 20:59 DC 03/24/21 20:20 Dicyclomine HCl (Bentyl) 20 mg TID PO 03/18/21 21:00 03/28/21 20:07 Diphenoxylate HCl/ Atropine (Lomotil) 2 tab BID PO 03/18/21 21:00 03/28/21 20:07 I have reviewed the current psychotropics carefully including drug interactions. Risk benefit ratio favors no change other than as noted in my dictated progress note. Diagnosis: Problems: (1) Impulse control disorder, unspecified (2) Mild cognitive impairment (3) Anxiety disorder, unspecified (4) Bipolar 1 disorder, depressed NITHIN STEVENS MD Mar 28, 2021 20:51
--- NOTE | 2021-03-28 21:56 | NUR ---
Patient was in bed, asleep when nurse entered room to give HS medications. She woke up and was pleasant, cooperative and med compliant. Patient took medications whole, from a spoon, accompanied by orange juice. Patient denied pain when asked. Patient returned to sleep when nurse left the room.
[2021-03-29 05:56] VITALS: BP 114/74
--- NOTE | 2021-03-29 06:51 | PDOC ---
Exam Note: Napoleon Note: This note is a late entry for 03/27/2021 covers elements not covered in my initial note. Subjective: The patient was seen individually in the evening of 03/27/2021 with Zahira BARR, discussed and reviewed the chart. The patient slept 8-1/2 hours previous night. Patient frequently takes off her oxygen supplement and oxygen sats drop suddenly. Review of Systems: Impaired ambulation in wheelchair. Shortness of breath on O2 supplements. No CV, , eye, ENT system symptoms on review. Mental Status Exam: The patient is oriented to herself. Insight and judgment, recent and remote memory, attention and concentration, fund of knowledge is poor consistent with her diagnoses. Laboratory Data: Reviewed. Impression: Bipolar disorder, depressed. Anxiety disorder unspecified. Impulse control disorder unspecified. Plan: No change from initial note. Assessment: Vital Signs/I&O: Vital Signs Date Time Temp Pulse Resp B/P (MAP) Pulse Ox O2 Delivery O2 Flow Rate FiO2 03/29/21 05:56 98.1 89 16 114/74 (87) 95 Nasal Cannula 2.0 I & O 03/28/21 03/28/21 03/29/21 15:00 23:00 07:00 Intake Total 927 ml 780 ml Balance 927 ml 780 ml Labs: Laboratory Tests Test 03/28/21 14:37 White Blood Count 6.3 x10^3/uL (4.0-11.0) Red Blood Count 3.46 x10^6/uL (3.50-5.40) L Hemoglobin 12.9 g/dL (12.0-15.5) Hematocrit 38.5 % (36.0-47.0) Mean Corpuscular Volume 112 fL (79-100) H Mean Corpuscular Hemoglobin 37 pg (25-35) H Mean Corpuscular Hemoglobin Concent 34 g/dL (31-37) Red Cell Distribution Width 16.7 % (11.5-14.5) H Platelet Count 293 x10^3/uL (140-400) Neutrophils (%) (Auto) 69 % (31-73) Lymphocytes (%) (Auto) 19 % (24-48) L Monocytes (%) (Auto) 9 % (0-9) Eosinophils (%) (Auto) 3 % (0-3) Basophils (%) (Auto) 1 % (0-3) Neutrophils # (Auto) 4.3 x10^3uL (1.8-7.7) Lymphocytes # (Auto) 1.2 x10^3/uL (1.0-4.8) Monocytes # (Auto) 0.6 x10^3/uL (0.0-1.1) Eosinophils # (Auto) 0.2 x10^3/uL (0.0-0.7) Basophils # (Auto) 0.0 x10^3/uL (0.0-0.2) Platelet Estimate Adequate (ADEQUATE) Macrocytosis Mod Sodium Level 137 mmol/L (136-145) Potassium Level 4.1 mmol/L (3.5-5.1) Chloride Level 99 mmol/L (98-107) Carbon Dioxide Level 32 mmol/L (21-32) Anion Gap 6 (6-14) Blood Urea Nitrogen 13 mg/dL (7-20) Creatinine 0.6 mg/dL (0.6-1.0) Estimated GFR (Cockcroft-Gault) 99.1 BUN/Creatinine Ratio 22 (6-20) H Glucose Level 92 mg/dL (70-99) Calcium Level 9.0 mg/dL (8.5-10.1) Total Bilirubin 0.4 mg/dL (0.2-1.0) Aspartate Amino Transferase (AST) 30 U/L (15-37) Alanine Aminotransferase (ALT) 35 U/L (14-59) Alkaline Phosphatase 149 U/L (46-116) H Total Protein 6.7 g/dL (6.4-8.2) Albumin 2.9 g/dL (3.4-5.0) L Albumin/Globulin Ratio 0.8 (1.0-1.7) L Current Medications: Meds: Laboratory Tests Test 03/28/21 14:37 White Blood Count 6.3 x10^3/uL Red Blood Count 3.46 x10^6/uL Hemoglobin 12.9 g/dL Hematocrit 38.5 % Mean Corpuscular Volume 112 fL Mean Corpuscular Hemoglobin 37 pg Mean Corpuscular Hemoglobin Concent 34 g/dL Red Cell Distribution Width 16.7 % Platelet Count 293 x10^3/uL Neutrophils (%) (Auto) 69 % Lymphocytes (%) (Auto) 19 % Monocytes (%) (Auto) 9 % Eosinophils (%) (Auto) 3 % Basophils (%) (Auto) 1 % Neutrophils # (Auto) 4.3 x10^3uL Lymphocytes # (Auto) 1.2 x10^3/uL Monocytes # (Auto) 0.6 x10^3/uL Eosinophils # (Auto) 0.2 x10^3/uL Basophils # (Auto) 0.0 x10^3/uL Platelet Estimate Adequate Macrocytosis Mod Sodium Level 137 mmol/L Potassium Level 4.1 mmol/L Chloride Level 99 mmol/L Carbon Dioxide Level 32 mmol/L Anion Gap 6 Blood Urea Nitrogen 13 mg/dL Creatinine 0.6 mg/dL Estimated GFR (Cockcroft-Gault) 99.1 BUN/Creatinine Ratio 22 Glucose Level 92 mg/dL Calcium Level 9.0 mg/dL Total Bilirubin 0.4 mg/dL Aspartate Amino Transf (AST/SGOT) 30 U/L Alanine Aminotransferase (ALT/SGPT) 35 U/L Alkaline Phosphatase 149 U/L Total Protein 6.7 g/dL Albumin 2.9 g/dL Albumin/Globulin Ratio 0.8 Current Medications Medications (Trade) Dose Ordered Sig/Mya Route PRN Reason Start Time Stop Time Status Last Admin Dose Admin Acetaminophen (Tylenol) 650 mg PRN Q6HRS PRN PO MILD PAIN / TEMP > 100.3'F 02/16/21 15:45 03/04/21 09:21 DC 02/18/21 06:31 Multi-Ingredient Ointment (Analgesic [place]) 1 debra PRN QID PRN TP MUSCLE PAIN 02/16/21 15:45 03/04/21 09:21 DC Al Hydroxide/Mg Hydroxide (Mylanta Plus Xs) 15 ml PRN AFTMEALHC PRN PO DYSPEPSIA 02/16/21 15:45 03/04/21 22:05 Magnesium Hydroxide (Milk Of Magnesia) 2,400 mg PRN QHS PRN PO 1ST CHOICE CONSTIPATION 02/16/21 15:45 03/04/21 09:21 DC Acetaminophen (Tylenol) 1,000 mg Q6HRS PRN PO pain or fever 02/16/21 17:00 02/16/21 17:35 DC Acetaminophen (Tylenol) 500 mg Q4HRS PRN PO MILD PAIN 1-3 02/16/21 17:00 02/16/21 17:36 DC Bisacodyl (Dulcolax Tab) 5 mg PRN DAILY PRN PO 2ND CHOICE CONSTIPATION 02/16/21 17:00 03/04/21 09:21 DC Vitamin D (Vitamin D3) 50,000 unit WEEKLY PO 02/22/21 09:00 03/04/21 09:21 DC 02/22/21 07:16 Clonazepam (KlonoPIN) 0.5 mg BID PO 02/16/21 21:00 02/27/21 19:54 DC 02/27/21 10:11 Dicyclomine HCl (Bentyl) 20 mg TID PO 02/16/21 21:00 03/04/21 09:21 DC 03/03/21 21:07 Diphenoxylate HCl/ Atropine (Lomotil) 2 tab BID PO 02/16/21 21:00 03/04/21 09:21 DC 03/03/21 21:08 Divalproex Sodium (Depakote Er) 1,000 mg HS PO 02/16/21 21:00 03/07/21 20:15 DC 03/04/21 21:43 Duloxetine HCl (Cymbalta) 30 mg BID PO 02/16/21 21:00 03/07/21 20:15 DC 03/06/21 08:14 Fluticasone Propionate (Flonase) 2 spray DAILY NS 02/17/21 09:00 03/28/21 08:32 Furosemide (Lasix) 20 mg DAILY PO 02/17/21 09:00 03/04/21 09:21 DC 03/03/21 08:32 Gabapentin (Neurontin) 300 mg QID PO 02/16/21 17:00 03/28/21 20:07 Hydroxyurea (Hydrea) 1,000 mg DAILY PO 02/17/21 09:00 03/28/21 08:35 Levetiracetam (Keppra) 250 mg BID PO 02/16/21 21:00 03/02/21 14:48 DC 03/02/21 09:54 Lidocaine (Lidoderm) 1 patch DAILY TP 02/17/21 09:00 02/17/21 09:24 DC Al Hydroxide/Mg Hydroxide (Mylanta Plus Xs) 15 ml PRN AFTMEALHC PRN PO DYSPEPSIA 02/16/21 17:00 02/16/21 17:36 DC Mirabegron (Myrbetriq) 50 mg DAILY PO 02/17/21 09:00 03/04/21 09:21 DC 03/03/21 08:30 Nystatin (Nystop) 1 debra BID TP 02/16/21 21:00 03/28/21 08:47 Pantoprazole Sodium (Protonix) 40 mg DAILYAC PO 02/17/21 07:30 03/28/21 08:34 Potassium Chloride (Klor-Con) 40 meq DAILY PO 02/17/21 09:00 03/04/21 09:21 DC 03/03/21 08:32 Sulfasalazine (Azulfidine) 500 mg TID PO 02/16/21 21:00 03/07/21 20:15 DC 03/06/21 13:05 Trazodone HCl (Desyrel) 50 mg QHS PO 02/16/21 21:00 03/28/21 20:07 Non-Formulary Medication (Albuterol Sulfate (Albuterol Sulfate Conc Neb Soln)) 1 vial PRN Q4HRS PRN NEB SHORTNESS OF BREATH 02/16/21 17:00 02/16/21 17:49 DC Ascorbic Acid (Vitamin C) 1,000 mg DAILY PO 02/17/21 09:00 03/04/21 09:21 DC 03/03/21 08:34 Diltiazem HCl (Cardizem) 60 mg BID PO 02/16/21 21:00 03/28/21 08:33 Lactobacillus Rhamnosus (Culturelle) 1 cap DAILY PO 02/17/21 09:00 03/04/21 09:21 DC 03/03/21 08:32 Amylase/Lipase/ Protease (Zenpep 10,000) 1 cap TIDBFRMEAL PO 02/17/21 07:30 03/28/21 17:11 Non-Formulary Medication (Magnesium Hydroxide (Milk Of Magnesia)) 2,400 mg PRN DAILY PRN PO CONSTIPATION 02/16/21 17:00 02/16/21 17:37 DC Magnesium Oxide (Magnesium Oxide) 400 mg DAILY PO 02/17/21 09:00 03/04/21 09:21 DC 03/03/21 08:31 Non-Formulary Medication (Methyl Salicylate/ Menthol (Analgesic [place])) 1 debra PRN Q6HRS PRN TP MUSCLE PAIN 02/16/21 17:00 02/16/21 17:37 DC Non-Formulary Medication (Umeclidinium [place] (Incruse Ellipta)) 62.5 mcg DAILY IH 02/17/21 09:00 02/16/21 17:49 DC Non-Formulary Medication (Zinc Gluconate ) 50 mg DAILY PO 02/17/21 09:00 02/16/21 17:46 DC Albuterol/ Ipratropium (Duoneb) 3 ml RTQID NEB 02/16/21 20:00 02/17/21 19:52 DC Albuterol Sulfate (Ventolin) 2.5 mg PRN Q4HRS PRN NEB SHORTNESS OF BREATH 02/16/21 18:00 Influenza Virus Vaccine Quadrival (Flulaval Quad [id number] Syringe) 0.5 ml ONCE ONCE VAX IM 02/17/21 09:00 02/17/21 09:01 DC 02/17/21 09:21 Lidocaine (Lidoderm) 1 patch DAILY PRN TP pain 02/17/21 09:30 03/28/21 08:37 Albuterol/ Ipratropium (Combivent Respimat 20-100 Mcg) 1 puff RTQID INH 02/17/21 20:00 03/28/21 20:05 Sertraline HCl (Zoloft) 25 mg DAILY PO 02/22/21 09:00 02/24/21 10:00 DC 02/24/21 09:59 Sertraline HCl (Zoloft) 50 mg DAILY PO 02/25/21 09:00 03/01/21 18:30 DC 03/01/21 10:07 Olanzapine (ZyPREXA ZYDIS) 5 mg 1X ONCE PO 02/26/21 12:03 02/26/21 12:09 DC 02/26/21 12:25 Clonazepam (KlonoPIN) 0.5 mg DAILY PO 02/28/21 09:00 03/02/21 07:00 DC 03/01/21 10:07 Bupropion HCl (Wellbutrin Xl) 150 mg DAILY PO 03/02/21 09:00 03/08/21 15:46 DC 03/08/21 08:41 Levetiracetam (Keppra) 250 mg DAILY PO 03/03/21 09:00 03/28/21 08:34 Aripiprazole (Abilify) 5 mg DAILY PO 03/05/21 09:00 03/28/21 08:34 Ondansetron HCl (Zofran Odt) 4 mg PRN Q4HRS PRN PO NAUSEA/VOMITING 03/06/21 19:30 03/06/21 19:46 Potassium Chloride (Klor-Con) 30 meq BID PO 03/07/21 09:00 03/28/21 20:07 Divalproex Sodium (Depakote Er) 1,000 mg 1700 PO 03/08/21 17:00 03/12/21 00:01 DC 03/11/21 17:27 Duloxetine HCl (Cymbalta) 30 mg 0900,1700 PO 03/08/21 17:00 03/28/21 17:11 Sulfasalazine (Azulfidine) 500 mg 0900,1300,1700 PO 03/08/21 09:00 03/28/21 17:00 Bupropion HCl (Wellbutrin Xl) 300 mg DAILY PO 03/09/21 09:00 03/28/21 08:34 Potassium Chloride (Klor-Con) 40 meq 1630,1730 PO 03/08/21 16:30 03/08/21 18:04 DC 03/08/21 16:57 Potassium Chloride (Klor-Con) 40 meq 1700,1800 PO 03/08/21 17:15 03/08/21 18:04 DC 03/08/21 17:56 Divalproex Sodium (Depakote Sprinkles) 500 mg BID PO 03/12/21 09:00 03/28/21 20:06 Clotrimazole (Mycelex-7) 1 debra QHS VG 03/18/21 21:00 03/25/21 20:59 DC 03/24/21 20:20 Dicyclomine HCl (Bentyl) 20 mg TID PO 03/18/21 21:00 03/28/21 20:07 Diphenoxylate HCl/ Atropine (Lomotil) 2 tab BID PO 03/18/21 21:00 03/28/21 20:07 I have reviewed the current psychotropics carefully including drug interactions. Risk benefit ratio favors no change other than as noted in my dictated progress note. Diagnosis: Problems: (1) Impulse control disorder, unspecified (2) Mild cognitive impairment (3) Anxiety disorder, unspecified (4) Bipolar 1 disorder, depressed NITHIN STEVENS MD Mar 29, 2021 06:51
--- NOTE | 2021-03-29 07:45 | PDOC ---
Exam Note: Napoleon Note: PThis note is a late entry for 03/28/2021 covers elements not covered in my initial note. Subjective: The patient was seen individually in the evening of 03/28/2021 with Zahira BARR, discussed and reviewed the chart. The patient slept 7-1/4 hours previous night. Patient remains somewhat withdrawn. Often removes her oxygen as I met with her in her room. She was lying in bed tucked in for the night and had removed her oxygen. She appeared more confused and at my request she put her oxygen back. I came back and checked a few minutes later and she still left it on. Review of Systems: Impaired ambulation in wheelchair. Shortness of breath on O2 supplements. No CV, , eye, ENT system symptoms on review. Mental Status Exam: The patient is oriented to herself. Insight and judgment, recent and remote memory, attention and concentration, fund of knowledge is poor consistent with her diagnoses. Laboratory Data: Reviewed. Impression: Bipolar disorder, depressed. Anxiety disorder unspecified. Impulse control disorder unspecified. Plan: No change from initial note. Assessment: Vital Signs/I&O: Vital Signs Date Time Temp Pulse Resp B/P (MAP) Pulse Ox O2 Delivery O2 Flow Rate FiO2 03/29/21 05:56 98.1 89 16 114/74 (87) 95 Nasal Cannula 2.0 I & O 03/28/21 03/28/21 03/29/21 15:00 23:00 07:00 Intake Total 927 ml 780 ml Balance 927 ml 780 ml Labs: Laboratory Tests Test 03/28/21 14:37 White Blood Count 6.3 x10^3/uL (4.0-11.0) Red Blood Count 3.46 x10^6/uL (3.50-5.40) L Hemoglobin 12.9 g/dL (12.0-15.5) Hematocrit 38.5 % (36.0-47.0) Mean Corpuscular Volume 112 fL (79-100) H Mean Corpuscular Hemoglobin 37 pg (25-35) H Mean Corpuscular Hemoglobin Concent 34 g/dL (31-37) Red Cell Distribution Width 16.7 % (11.5-14.5) H Platelet Count 293 x10^3/uL (140-400) Neutrophils (%) (Auto) 69 % (31-73) Lymphocytes (%) (Auto) 19 % (24-48) L Monocytes (%) (Auto) 9 % (0-9) Eosinophils (%) (Auto) 3 % (0-3) Basophils (%) (Auto) 1 % (0-3) Neutrophils # (Auto) 4.3 x10^3uL (1.8-7.7) Lymphocytes # (Auto) 1.2 x10^3/uL (1.0-4.8) Monocytes # (Auto) 0.6 x10^3/uL (0.0-1.1) Eosinophils # (Auto) 0.2 x10^3/uL (0.0-0.7) Basophils # (Auto) 0.0 x10^3/uL (0.0-0.2) Platelet Estimate Adequate (ADEQUATE) Macrocytosis Mod Sodium Level 137 mmol/L (136-145) Potassium Level 4.1 mmol/L (3.5-5.1) Chloride Level 99 mmol/L (98-107) Carbon Dioxide Level 32 mmol/L (21-32) Anion Gap 6 (6-14) Blood Urea Nitrogen 13 mg/dL (7-20) Creatinine 0.6 mg/dL (0.6-1.0) Estimated GFR (Cockcroft-Gault) 99.1 BUN/Creatinine Ratio 22 (6-20) H Glucose Level 92 mg/dL (70-99) Calcium Level 9.0 mg/dL (8.5-10.1) Total Bilirubin 0.4 mg/dL (0.2-1.0) Aspartate Amino Transferase (AST) 30 U/L (15-37) Alanine Aminotransferase (ALT) 35 U/L (14-59) Alkaline Phosphatase 149 U/L (46-116) H Total Protein 6.7 g/dL (6.4-8.2) Albumin 2.9 g/dL (3.4-5.0) L Albumin/Globulin Ratio 0.8 (1.0-1.7) L Current Medications: Meds: Laboratory Tests Test 03/28/21 14:37 White Blood Count 6.3 x10^3/uL Red Blood Count 3.46 x10^6/uL Hemoglobin 12.9 g/dL Hematocrit 38.5 % Mean Corpuscular Volume 112 fL Mean Corpuscular Hemoglobin 37 pg Mean Corpuscular Hemoglobin Concent 34 g/dL Red Cell Distribution Width 16.7 % Platelet Count 293 x10^3/uL Neutrophils (%) (Auto) 69 % Lymphocytes (%) (Auto) 19 % Monocytes (%) (Auto) 9 % Eosinophils (%) (Auto) 3 % Basophils (%) (Auto) 1 % Neutrophils # (Auto) 4.3 x10^3uL Lymphocytes # (Auto) 1.2 x10^3/uL Monocytes # (Auto) 0.6 x10^3/uL Eosinophils # (Auto) 0.2 x10^3/uL Basophils # (Auto) 0.0 x10^3/uL Platelet Estimate Adequate Macrocytosis Mod Sodium Level 137 mmol/L Potassium Level 4.1 mmol/L Chloride Level 99 mmol/L Carbon Dioxide Level 32 mmol/L Anion Gap 6 Blood Urea Nitrogen 13 mg/dL Creatinine 0.6 mg/dL Estimated GFR (Cockcroft-Gault) 99.1 BUN/Creatinine Ratio 22 Glucose Level 92 mg/dL Calcium Level 9.0 mg/dL Total Bilirubin 0.4 mg/dL Aspartate Amino Transf (AST/SGOT) 30 U/L Alanine Aminotransferase (ALT/SGPT) 35 U/L Alkaline Phosphatase 149 U/L Total Protein 6.7 g/dL Albumin 2.9 g/dL Albumin/Globulin Ratio 0.8 Current Medications Medications (Trade) Dose Ordered Sig/Mya Route PRN Reason Start Time Stop Time Status Last Admin Dose Admin Acetaminophen (Tylenol) 650 mg PRN Q6HRS PRN PO MILD PAIN / TEMP > 100.3'F 02/16/21 15:45 03/04/21 09:21 DC 02/18/21 06:31 Multi-Ingredient Ointment (Analgesic [place]) 1 debra PRN QID PRN TP MUSCLE PAIN 02/16/21 15:45 03/04/21 09:21 DC Al Hydroxide/Mg Hydroxide (Mylanta Plus Xs) 15 ml PRN AFTMEALHC PRN PO DYSPEPSIA 02/16/21 15:45 03/04/21 22:05 Magnesium Hydroxide (Milk Of Magnesia) 2,400 mg PRN QHS PRN PO 1ST CHOICE CONSTIPATION 02/16/21 15:45 03/04/21 09:21 DC Acetaminophen (Tylenol) 1,000 mg Q6HRS PRN PO pain or fever 02/16/21 17:00 02/16/21 17:35 DC Acetaminophen (Tylenol) 500 mg Q4HRS PRN PO MILD PAIN 1-3 02/16/21 17:00 02/16/21 17:36 DC Bisacodyl (Dulcolax Tab) 5 mg PRN DAILY PRN PO 2ND CHOICE CONSTIPATION 02/16/21 17:00 03/04/21 09:21 DC Vitamin D (Vitamin D3) 50,000 unit WEEKLY PO 02/22/21 09:00 03/04/21 09:21 DC 02/22/21 07:16 Clonazepam (KlonoPIN) 0.5 mg BID PO 02/16/21 21:00 02/27/21 19:54 DC 02/27/21 10:11 Dicyclomine HCl (Bentyl) 20 mg TID PO 02/16/21 21:00 03/04/21 09:21 DC 03/03/21 21:07 Diphenoxylate HCl/ Atropine (Lomotil) 2 tab BID PO 02/16/21 21:00 03/04/21 09:21 DC 03/03/21 21:08 Divalproex Sodium (Depakote Er) 1,000 mg HS PO 02/16/21 21:00 03/07/21 20:15 DC 03/04/21 21:43 Duloxetine HCl (Cymbalta) 30 mg BID PO 02/16/21 21:00 03/07/21 20:15 DC 03/06/21 08:14 Fluticasone Propionate (Flonase) 2 spray DAILY NS 02/17/21 09:00 03/28/21 08:32 Furosemide (Lasix) 20 mg DAILY PO 02/17/21 09:00 03/04/21 09:21 DC 03/03/21 08:32 Gabapentin (Neurontin) 300 mg QID PO 02/16/21 17:00 03/28/21 20:07 Hydroxyurea (Hydrea) 1,000 mg DAILY PO 02/17/21 09:00 03/28/21 08:35 Levetiracetam (Keppra) 250 mg BID PO 02/16/21 21:00 03/02/21 14:48 DC 03/02/21 09:54 Lidocaine (Lidoderm) 1 patch DAILY TP 02/17/21 09:00 02/17/21 09:24 DC Al Hydroxide/Mg Hydroxide (Mylanta Plus Xs) 15 ml PRN AFTMEALHC PRN PO DYSPEPSIA 02/16/21 17:00 02/16/21 17:36 DC Mirabegron (Myrbetriq) 50 mg DAILY PO 02/17/21 09:00 03/04/21 09:21 DC 03/03/21 08:30 Nystatin (Nystop) 1 debra BID TP 02/16/21 21:00 03/28/21 08:47 Pantoprazole Sodium (Protonix) 40 mg DAILYAC PO 02/17/21 07:30 03/28/21 08:34 Potassium Chloride (Klor-Con) 40 meq DAILY PO 02/17/21 09:00 03/04/21 09:21 DC 03/03/21 08:32 Sulfasalazine (Azulfidine) 500 mg TID PO 02/16/21 21:00 03/07/21 20:15 DC 03/06/21 13:05 Trazodone HCl (Desyrel) 50 mg QHS PO 02/16/21 21:00 03/28/21 20:07 Non-Formulary Medication (Albuterol Sulfate (Albuterol Sulfate Conc Neb Soln)) 1 vial PRN Q4HRS PRN NEB SHORTNESS OF BREATH 02/16/21 17:00 02/16/21 17:49 DC Ascorbic Acid (Vitamin C) 1,000 mg DAILY PO 02/17/21 09:00 03/04/21 09:21 DC 03/03/21 08:34 Diltiazem HCl (Cardizem) 60 mg BID PO 02/16/21 21:00 03/28/21 08:33 Lactobacillus Rhamnosus (Culturelle) 1 cap DAILY PO 02/17/21 09:00 03/04/21 09:21 DC 03/03/21 08:32 Amylase/Lipase/ Protease (Zenpep 10,000) 1 cap TIDBFRMEAL PO 02/17/21 07:30 03/28/21 17:11 Non-Formulary Medication (Magnesium Hydroxide (Milk Of Magnesia)) 2,400 mg PRN DAILY PRN PO CONSTIPATION 02/16/21 17:00 02/16/21 17:37 DC Magnesium Oxide (Magnesium Oxide) 400 mg DAILY PO 02/17/21 09:00 03/04/21 09:21 DC 03/03/21 08:31 Non-Formulary Medication (Methyl Salicylate/ Menthol (Analgesic [place])) 1 debra PRN Q6HRS PRN TP MUSCLE PAIN 02/16/21 17:00 02/16/21 17:37 DC Non-Formulary Medication (Umeclidinium [place] (Incruse Ellipta)) 62.5 mcg DAILY IH 02/17/21 09:00 02/16/21 17:49 DC Non-Formulary Medication (Zinc Gluconate ) 50 mg DAILY PO 02/17/21 09:00 02/16/21 17:46 DC Albuterol/ Ipratropium (Duoneb) 3 ml RTQID NEB 02/16/21 20:00 02/17/21 19:52 DC Albuterol Sulfate (Ventolin) 2.5 mg PRN Q4HRS PRN NEB SHORTNESS OF BREATH 02/16/21 18:00 Influenza Virus Vaccine Quadrival (Flulaval Quad [id number] Syringe) 0.5 ml ONCE ONCE VAX IM 02/17/21 09:00 02/17/21 09:01 DC 02/17/21 09:21 Lidocaine (Lidoderm) 1 patch DAILY PRN TP pain 02/17/21 09:30 03/28/21 08:37 Albuterol/ Ipratropium (Combivent Respimat 20-100 Mcg) 1 puff RTQID INH 02/17/21 20:00 03/28/21 20:05 Sertraline HCl (Zoloft) 25 mg DAILY PO 02/22/21 09:00 02/24/21 10:00 DC 02/24/21 09:59 Sertraline HCl (Zoloft) 50 mg DAILY PO 02/25/21 09:00 03/01/21 18:30 DC 03/01/21 10:07 Olanzapine (ZyPREXA ZYDIS) 5 mg 1X ONCE PO 02/26/21 12:03 02/26/21 12:09 DC 02/26/21 12:25 Clonazepam (KlonoPIN) 0.5 mg DAILY PO 02/28/21 09:00 03/02/21 07:00 DC 03/01/21 10:07 Bupropion HCl (Wellbutrin Xl) 150 mg DAILY PO 03/02/21 09:00 03/08/21 15:46 DC 03/08/21 08:41 Levetiracetam (Keppra) 250 mg DAILY PO 03/03/21 09:00 03/28/21 08:34 Aripiprazole (Abilify) 5 mg DAILY PO 03/05/21 09:00 03/28/21 08:34 Ondansetron HCl (Zofran Odt) 4 mg PRN Q4HRS PRN PO NAUSEA/VOMITING 03/06/21 19:30 03/06/21 19:46 Potassium Chloride (Klor-Con) 30 meq BID PO 03/07/21 09:00 03/28/21 20:07 Divalproex Sodium (Depakote Er) 1,000 mg 1700 PO 03/08/21 17:00 03/12/21 00:01 DC 03/11/21 17:27 Duloxetine HCl (Cymbalta) 30 mg 0900,1700 PO 03/08/21 17:00 03/28/21 17:11 Sulfasalazine (Azulfidine) 500 mg 0900,1300,1700 PO 03/08/21 09:00 03/28/21 17:00 Bupropion HCl (Wellbutrin Xl) 300 mg DAILY PO 03/09/21 09:00 03/28/21 08:34 Potassium Chloride (Klor-Con) 40 meq 1630,1730 PO 03/08/21 16:30 03/08/21 18:04 DC 03/08/21 16:57 Potassium Chloride (Klor-Con) 40 meq 1700,1800 PO 03/08/21 17:15 03/08/21 18:04 DC 03/08/21 17:56 Divalproex Sodium (Depakote Sprinkles) 500 mg BID PO 03/12/21 09:00 03/28/21 20:06 Clotrimazole (Mycelex-7) 1 debra QHS VG 03/18/21 21:00 03/25/21 20:59 DC 03/24/21 20:20 Dicyclomine HCl (Bentyl) 20 mg TID PO 03/18/21 21:00 03/28/21 20:07 Diphenoxylate HCl/ Atropine (Lomotil) 2 tab BID PO 03/18/21 21:00 03/28/21 20:07 I have reviewed the current psychotropics carefully including drug interactions. Risk benefit ratio favors no change other than as noted in my dictated progress note. Diagnosis: Problems: (1) Impulse control disorder, unspecified (2) Mild cognitive impairment (3) Anxiety disorder, unspecified (4) Bipolar 1 disorder, depressed NITHIN STEVENS MD Mar 29, 2021 07:45
[2021-03-29] MEDS: DIPHENOXYLATE/ATROPINE TABLET. PO SCH ×2 (08:14→20:44)
[2021-03-29] MEDS: PANTOPRAZOLE 40 MG TABLET. PO SCH (08:14)
[2021-03-29] MEDS: GABAPENTIN 300 MG CAPSULE. PO SCH ×4 (08:14→20:44)
[2021-03-29] MEDS: ARIPiprazole 5 MG TABLET PO SCH (08:14)
[2021-03-29] MEDS: dilTIAZem HCL 30 MG TABLET PO SCH ×2 (08:15→20:24)
[2021-03-29] MEDS: POTASSIUM CHLORIDE 10 MEQ TABLET.ER. PO SCH ×2 (08:15→20:44)
[2021-03-29] MEDS: sulfaSALAzine 500 MG TABLET PO SCH ×3 (08:15→17:11)
[2021-03-29] MEDS: levETIRAcetam 250 MG TABLET PO SCH (08:16)
[2021-03-29] MEDS: DULoxetine HCL 30 MG CAPSULE.DR PO SCH ×2 (08:16→17:11)
[2021-03-29] MEDS: DICYCLOMINE HCL 20 MG TABLET PO SCH ×3 (08:16→20:44)
[2021-03-29] MEDS: buPROPion XL 300 MG TAB.ER.24H. PO SCH (08:16)
[2021-03-29] MEDS: IPRATROPIUM/ALBUTEROL 20/100mcg/INH INHALER. INH SCH ×4 (08:16→20:44)
[2021-03-29] MEDS: DIVALPROEX 125 MG CAP.SPRINK PO SCH ×2 (08:16→20:45)
[2021-03-29] MEDS: LIPASE/PROTEAS/AMYLAS 10/32/42 CAPSULE.DR. PO SCH ×3 (08:16→17:11)
[2021-03-29] MEDS: HYDROXYUREA 500 MG CAPSULE PO SCH (08:29)
[2021-03-29] MEDS: FLUTICASONE 50MCG/NASAL SPRAY 16GM BOTTLE. NS SCH (09:00)
[2021-03-29] MEDS: NYSTATIN TOPICAL POWDER 15GM BOTTLE. TP SCH ×2 (09:00→20:44)
[2021-03-29] MEDS ORDERED: LIDOCAINE (700MG/PATCH) PATCH. TP PRN (12:15)
--- NOTE | 2021-03-29 13:58 | NUR ---
Per lab, patient's COVID test was conducted incorrectly and requires re-testing.
[2021-03-29 15:35] VITALS: BP 97/62
--- NOTE | 2021-03-29 18:25 | NUR ---
Patient has been disorganized, generally calm, and cooperative today. She was interactive with staff and peers. Patient was withdrawn to her room for most of the shift. Will continue to monitor and report to oncoming shift.
--- NOTE | 2021-03-29 20:14 | PDOC ---
Exam Note: Napoleon Note: Please also refer to the separate dictated note~for this date of service dictated separately.~Patient seen individually. Discussed the patient with Nursing staff reviewed the chart.~Reviewed interim history and current functioning. Reviewed vital signs,~Labs/ Radiology~and current medications noted below. Continue current treatment with the changes noted in the dictated addendum note Assessment: Vital Signs/I&O: Vital Signs Date Time Temp Pulse Resp B/P (MAP) Pulse Ox O2 Delivery O2 Flow Rate FiO2 03/29/21 15:35 98.5 92 17 97/62 (74) 93 03/29/21 05:56 Nasal Cannula 2.0 I & O 03/28/21 03/28/21 03/29/21 15:00 23:00 07:00 Intake Total 927 ml 780 ml Balance 927 ml 780 ml Current Medications: Meds: Current Medications Medications (Trade) Dose Ordered Sig/Mya Route PRN Reason Start Time Stop Time Status Last Admin Dose Admin Acetaminophen (Tylenol) 650 mg PRN Q6HRS PRN PO MILD PAIN / TEMP > 100.3'F 02/16/21 15:45 03/04/21 09:21 DC 02/18/21 06:31 Multi-Ingredient Ointment (Analgesic [place]) 1 debra PRN QID PRN TP MUSCLE PAIN 02/16/21 15:45 03/04/21 09:21 DC Al Hydroxide/Mg Hydroxide (Mylanta Plus Xs) 15 ml PRN AFTMEALHC PRN PO DYSPEPSIA 02/16/21 15:45 03/04/21 22:05 Magnesium Hydroxide (Milk Of Magnesia) 2,400 mg PRN QHS PRN PO 1ST CHOICE CONSTIPATION 02/16/21 15:45 03/04/21 09:21 DC Acetaminophen (Tylenol) 1,000 mg Q6HRS PRN PO pain or fever 02/16/21 17:00 02/16/21 17:35 DC Acetaminophen (Tylenol) 500 mg Q4HRS PRN PO MILD PAIN 1-3 02/16/21 17:00 02/16/21 17:36 DC Bisacodyl (Dulcolax Tab) 5 mg PRN DAILY PRN PO 2ND CHOICE CONSTIPATION 02/16/21 17:00 03/04/21 09:21 DC Vitamin D (Vitamin D3) 50,000 unit WEEKLY PO 02/22/21 09:00 03/04/21 09:21 DC 02/22/21 07:16 Clonazepam (KlonoPIN) 0.5 mg BID PO 02/16/21 21:00 02/27/21 19:54 DC 02/27/21 10:11 Dicyclomine HCl (Bentyl) 20 mg TID PO 02/16/21 21:00 03/04/21 09:21 DC 03/03/21 21:07 Diphenoxylate HCl/ Atropine (Lomotil) 2 tab BID PO 02/16/21 21:00 03/04/21 09:21 DC 03/03/21 21:08 Divalproex Sodium (Depakote Er) 1,000 mg HS PO 02/16/21 21:00 03/07/21 20:15 DC 03/04/21 21:43 Duloxetine HCl (Cymbalta) 30 mg BID PO 02/16/21 21:00 03/07/21 20:15 DC 03/06/21 08:14 Fluticasone Propionate (Flonase) 2 spray DAILY NS 02/17/21 09:00 03/28/21 08:32 Furosemide (Lasix) 20 mg DAILY PO 02/17/21 09:00 03/04/21 09:21 DC 03/03/21 08:32 Gabapentin (Neurontin) 300 mg QID PO 02/16/21 17:00 03/29/21 17:11 Hydroxyurea (Hydrea) 1,000 mg DAILY PO 02/17/21 09:00 03/29/21 08:29 Levetiracetam (Keppra) 250 mg BID PO 02/16/21 21:00 03/02/21 14:48 DC 03/02/21 09:54 Lidocaine (Lidoderm) 1 patch DAILY TP 02/17/21 09:00 02/17/21 09:24 DC Al Hydroxide/Mg Hydroxide (Mylanta Plus Xs) 15 ml PRN AFTMEALHC PRN PO DYSPEPSIA 02/16/21 17:00 02/16/21 17:36 DC Mirabegron (Myrbetriq) 50 mg DAILY PO 02/17/21 09:00 03/04/21 09:21 DC 03/03/21 08:30 Nystatin (Nystop) 1 debra BID TP 02/16/21 21:00 03/28/21 08:47 Pantoprazole Sodium (Protonix) 40 mg DAILYAC PO 02/17/21 07:30 03/29/21 08:14 Potassium Chloride (Klor-Con) 40 meq DAILY PO 02/17/21 09:00 03/04/21 09:21 DC 03/03/21 08:32 Sulfasalazine (Azulfidine) 500 mg TID PO 02/16/21 21:00 03/07/21 20:15 DC 03/06/21 13:05 Trazodone HCl (Desyrel) 50 mg QHS PO 02/16/21 21:00 03/28/21 20:07 Non-Formulary Medication (Albuterol Sulfate (Albuterol Sulfate Conc Neb Soln)) 1 vial PRN Q4HRS PRN NEB SHORTNESS OF BREATH 02/16/21 17:00 02/16/21 17:49 DC Ascorbic Acid (Vitamin C) 1,000 mg DAILY PO 02/17/21 09:00 03/04/21 09:21 DC 03/03/21 08:34 Diltiazem HCl (Cardizem) 60 mg BID PO 02/16/21 21:00 03/29/21 08:15 Lactobacillus Rhamnosus (Culturelle) 1 cap DAILY PO 02/17/21 09:00 03/04/21 09:21 DC 03/03/21 08:32 Amylase/Lipase/ Protease (Zenpep 10,000) 1 cap TIDBFRMEAL PO 02/17/21 07:30 03/29/21 17:11 Non-Formulary Medication (Magnesium Hydroxide (Milk Of Magnesia)) 2,400 mg PRN DAILY PRN PO CONSTIPATION 02/16/21 17:00 02/16/21 17:37 DC Magnesium Oxide (Magnesium Oxide) 400 mg DAILY PO 02/17/21 09:00 03/04/21 09:21 DC 03/03/21 08:31 Non-Formulary Medication (Methyl Salicylate/ Menthol (Analgesic [place])) 1 debra PRN Q6HRS PRN TP MUSCLE PAIN 02/16/21 17:00 02/16/21 17:37 DC Non-Formulary Medication (Umeclidinium [place] (Incruse Ellipta)) 62.5 mcg DAILY IH 02/17/21 09:00 02/16/21 17:49 DC Non-Formulary Medication (Zinc Gluconate ) 50 mg DAILY PO 02/17/21 09:00 02/16/21 17:46 DC Albuterol/ Ipratropium (Duoneb) 3 ml RTQID NEB 02/16/21 20:00 02/17/21 19:52 DC Albuterol Sulfate (Ventolin) 2.5 mg PRN Q4HRS PRN NEB SHORTNESS OF BREATH 02/16/21 18:00 Influenza Virus Vaccine Quadrival (Flulaval Quad [id number] Syringe) 0.5 ml ONCE ONCE VAX IM 02/17/21 09:00 02/17/21 09:01 DC 02/17/21 09:21 Lidocaine (Lidoderm) 1 patch DAILY PRN TP pain 02/17/21 09:30 03/29/21 12:01 DC 03/28/21 08:37 Albuterol/ Ipratropium (Combivent Respimat 20-100 Mcg) 1 puff RTQID INH 02/17/21 20:00 03/29/21 17:11 Sertraline HCl (Zoloft) 25 mg DAILY PO 02/22/21 09:00 02/24/21 10:00 DC 02/24/21 09:59 Sertraline HCl (Zoloft) 50 mg DAILY PO 02/25/21 09:00 03/01/21 18:30 DC 03/01/21 10:07 Olanzapine (ZyPREXA ZYDIS) 5 mg 1X ONCE PO 02/26/21 12:03 02/26/21 12:09 DC 02/26/21 12:25 Clonazepam (KlonoPIN) 0.5 mg DAILY PO 02/28/21 09:00 03/02/21 07:00 DC 03/01/21 10:07 Bupropion HCl (Wellbutrin Xl) 150 mg DAILY PO 03/02/21 09:00 03/08/21 15:46 DC 03/08/21 08:41 Levetiracetam (Keppra) 250 mg DAILY PO 03/03/21 09:00 03/29/21 08:16 Aripiprazole (Abilify) 5 mg DAILY PO 03/05/21 09:00 03/29/21 08:14 Ondansetron HCl (Zofran Odt) 4 mg PRN Q4HRS PRN PO NAUSEA/VOMITING 03/06/21 19:30 03/06/21 19:46 Potassium Chloride (Klor-Con) 30 meq BID PO 03/07/21 09:00 03/29/21 08:15 Divalproex Sodium (Depakote Er) 1,000 mg 1700 PO 03/08/21 17:00 03/12/21 00:01 DC 03/11/21 17:27 Duloxetine HCl (Cymbalta) 30 mg 0900,1700 PO 03/08/21 17:00 03/29/21 17:11 Sulfasalazine (Azulfidine) 500 mg 0900,1300,1700 PO 03/08/21 09:00 03/29/21 17:11 Bupropion HCl (Wellbutrin Xl) 300 mg DAILY PO 03/09/21 09:00 03/29/21 08:16 Potassium Chloride (Klor-Con) 40 meq 1630,1730 PO 03/08/21 16:30 03/08/21 18:04 DC 03/08/21 16:57 Potassium Chloride (Klor-Con) 40 meq 1700,1800 PO 03/08/21 17:15 03/08/21 18:04 DC 03/08/21 17:56 Divalproex Sodium (Depakote Sprinkles) 500 mg BID PO 03/12/21 09:00 03/29/21 08:16 Clotrimazole (Mycelex-7) 1 debra QHS VG 03/18/21 21:00 03/25/21 20:59 DC 03/24/21 20:20 Dicyclomine HCl (Bentyl) 20 mg TID PO 03/18/21 21:00 03/29/21 14:10 Diphenoxylate HCl/ Atropine (Lomotil) 2 tab BID PO 03/18/21 21:00 03/29/21 08:14 Lidocaine (Lidoderm) 1 patch PRN DAILY PRN TP pain 03/29/21 12:15 I have reviewed the current psychotropics carefully including drug interactions. Risk benefit ratio favors no change other than as noted in my dictated progress note. Diagnosis: Problems: (1) Impulse control disorder, unspecified (2) Mild cognitive impairment (3) Anxiety disorder, unspecified (4) Bipolar 1 disorder, depressed NITHIN STEVENS MD Mar 29, 2021 20:14
[2021-03-29] MEDS: traZODone 50 MG TABLET. PO SCH (20:45)
--- NOTE | 2021-03-29 22:41 | NUR ---
Patient was already in bed when this nurse arrived on shift. Patient was asleep when nurse entered the room. Patients NC had slipped out of her nose and was near her ear, she replaced it when nurse asked her to. Patient compliant with medications taken a few at a time from a spoon, followed with orange juice. She is pleasant, calm and appropriate. patient returned to sleep after nurse left the room.
[2021-03-30 06:23] VITALS: BP 122/72
[2021-03-30] MEDS: IPRATROPIUM/ALBUTEROL 20/100mcg/INH INHALER. INH SCH ×4 (08:00→20:00)
[2021-03-30] MEDS: DICYCLOMINE HCL 20 MG TABLET PO SCH ×3 (08:31→20:16)
[2021-03-30] MEDS: PANTOPRAZOLE 40 MG TABLET. PO SCH (08:31)
[2021-03-30] MEDS: POTASSIUM CHLORIDE 10 MEQ TABLET.ER. PO SCH ×2 (08:31→20:19)
[2021-03-30] MEDS: DIVALPROEX 125 MG CAP.SPRINK PO SCH ×2 (08:31→20:17)
[2021-03-30] MEDS: buPROPion XL 300 MG TAB.ER.24H. PO SCH (08:31)
[2021-03-30] MEDS: DIPHENOXYLATE/ATROPINE TABLET. PO SCH ×2 (08:31→20:17)
[2021-03-30] MEDS: levETIRAcetam 250 MG TABLET PO SCH (08:31)
[2021-03-30] MEDS: DULoxetine HCL 30 MG CAPSULE.DR PO SCH ×2 (08:31→16:23)
[2021-03-30] MEDS: LIPASE/PROTEAS/AMYLAS 10/32/42 CAPSULE.DR. PO SCH ×3 (08:31→16:23)
[2021-03-30] MEDS: dilTIAZem HCL 30 MG TABLET PO SCH ×2 (08:32→20:18)
[2021-03-30] MEDS: sulfaSALAzine 500 MG TABLET PO SCH ×3 (08:32→16:23)
[2021-03-30] MEDS: HYDROXYUREA 500 MG CAPSULE PO SCH (08:32)
[2021-03-30] MEDS: GABAPENTIN 300 MG CAPSULE. PO SCH ×4 (08:32→20:16)
[2021-03-30] MEDS: FLUTICASONE 50MCG/NASAL SPRAY 16GM BOTTLE. NS SCH (08:33)
[2021-03-30] MEDS: NYSTATIN TOPICAL POWDER 15GM BOTTLE. TP SCH ×2 (08:34→20:14)
[2021-03-30] MEDS: ARIPiprazole 5 MG TABLET PO SCH (08:34)
--- NOTE | 2021-03-30 09:09 | NUR ---
Pt appropriate on the unit so far this shift. Absent of disruptive behaviors on the unit, absent of dangerous or self harm behaviors as well. She is compliant with medications whole and fed to her on a spoon, displaying ability to swallow without difficulty. Appetite appears adequate during breakfast. O2 NC has remained in her nares so far this shift. Pt is flat in affect and quiet, but responds appropriately during assessment. Plan of care continues, will pass to next shift.
--- NOTE | 2021-03-30 10:35 | NUR ---
WEEKLY ACTIVITY THERAPY NOTE Date of Admission:02/16/21 Date of AT Assessment: 02/17 Precipitating behaviors that initiated intake and admission:putting self on floor, combative towards staff, refusing O2, threw medications, expresses she wants to & removes O2 Goal aimed: increase socialization and engagement Initial Goal: Pt will participate in at least three individual or group Activity Therapy sessions per week Weekly progress towards goal: did not achieve, 1/3 Group participation level: 1 mod Weekly highlights: participated in name 5 and participated in some exercises Saturday Behaviors observed: required direct prompting, restless and Saturday morning Plan: no change to goal Beneficial adaptations: direct prompting
--- NOTE | 2021-03-30 13:12 | NUR ---
Treatment team update: Pt is eating 75% of meals and sleeping on average 8 hours per night. Pt is cooperative with cares and now compliant with whole meds versus medications crushed. Pt did tip herself out of her Broda on Saturday and split her eyebrow; however, no stitches were required. Pt continues to have some delusional statements but can be redirectable. Pt continues to have periods of taking off her oxygen but does eventually redirect and wears it for the remainder of the day. At this time, pt does not have a DPOA; psychological testing will be completed on Saturday to determine if pt is able to make her own decisions. If she is found incapacitated, the hospital will have to file for pt to receive a temporary guardian.
[2021-03-30 15:51] VITALS: BP 111/73
[2021-03-30 17:00] VITALS: BP 135/79
--- NOTE | 2021-03-30 17:01 | NUR ---
Loud sound heard from pt's room. Upon entering this nurse saw patient lying supine on the ground next to the spare bed in her room, her head against the bed frame. This nurse last observed pt approx 5 minutes prior to event while walking down the ascencio, pt was observed sitting in her bed. When asked what happened pt replied, "I was looking for things to take with me when I go to [facility] house." BP 135/79, HR 97, RR 20, O2 Sat 95%. Pt reports pain in the back of her head. When asked, pt stated that she did hit her head against the bed frame. Pt absent of visible injuries at time of immediate assessment, neurochecks within her baseline. Dr Clark notified and orders given for head CT and to monitor for acute changes.
--- NOTE | 2021-03-30 18:07 | RAD ---
EXAMINATION: CT head without IV contrast INDICATION:70 years, Female, fall with posterior head strike, right temporal head pain. COMPARISON: 03/25/2021 TECHNIQUE: Spiral acquisition of contiguous images from the skull base to the vertex were obtained. S agittal and coronal 2D reformatted series were provided by the technologist. Soft tissue and bone win pamela algorithms were reviewed. Exposure: One or more of the following individualized dose reduction techniques were utilized for thi s examination: 1. Automated exposure control 2. Adjustment of the mA and/or kV according to patient size 3. Use of iterative reconstruction technique. FINDINGS: No mass, midline shift, intracranial hemorrhage, acute/subacute ischemic changes, nor extraaxial flui d collections are seen. Mild brain parenchymal volume loss. Similar supratentorial periventricular w javi matter hypodensities, indeterminate but most likely representing chronic microangiopathic diseas e. The ventricular system is within normal limits of variation. The paranasal sinuses, mastoid air cells, and middle ears are clear.The orbital contents appear withi n normal limits. Soft tissues are unremarkable. Calvarium is intact. IMPRESSION: 1. No evidence of acute intracranial abnormality. 2. Supratentorial periventricular white matter hypodensities, indeterminate but most likely represen ting chronic microangiopathic disease. Electronically signed by: Vladislav Duarte DO (03/30/2021 6:04 PM) [facility]
[2021-03-30] MEDS: traZODone 50 MG TABLET. PO SCH (20:17)
--- NOTE | 2021-03-30 20:32 | PDOC ---
Exam Note: Napoleon Note: Please also refer to the separate dictated note~for this date of service dictated separately.~Patient seen individually. Discussed the patient with Nursing staff reviewed the chart.~Reviewed interim history and current functioning. Reviewed vital signs,~Labs/ Radiology~and current medications noted below. Continue current treatment with the changes noted in the dictated addendum note Assessment: Vital Signs/I&O: Vital Signs Date Time Temp Pulse Resp B/P (MAP) Pulse Ox O2 Delivery O2 Flow Rate FiO2 03/30/21 20:18 97 135/79 03/30/21 17:00 20 92 Nasal Cannula 3.0 03/30/21 15:51 98.6 I & O 0 03/29/21 03/29/21 03/30/21 15:00 23:00 07:00 Intake Total 720 ml 720 ml Balance 720 ml 720 ml Current Medications: Meds: Current Medications Medications (Trade) Dose Ordered Sig/Mya Route PRN Reason Start Time Stop Time Status Last Admin Dose Admin Acetaminophen (Tylenol) 650 mg PRN Q6HRS PRN PO MILD PAIN / TEMP > 100.3'F 02/16/21 15:45 03/04/21 09:21 DC 02/18/21 06:31 Multi-Ingredient Ointment (Analgesic [place]) 1 debra PRN QID PRN TP MUSCLE PAIN 02/16/21 15:45 03/04/21 09:21 DC Al Hydroxide/Mg Hydroxide (Mylanta Plus Xs) 15 ml PRN AFTMEALHC PRN PO DYSPEPSIA 02/16/21 15:45 03/04/21 22:05 Magnesium Hydroxide (Milk Of Magnesia) 2,400 mg PRN QHS PRN PO 1ST CHOICE CONSTIPATION 02/16/21 15:45 03/04/21 09:21 DC Acetaminophen (Tylenol) 1,000 mg Q6HRS PRN PO pain or fever 02/16/21 17:00 02/16/21 17:35 DC Acetaminophen (Tylenol) 500 mg Q4HRS PRN PO MILD PAIN 1-3 02/16/21 17:00 02/16/21 17:36 DC Bisacodyl (Dulcolax Tab) 5 mg PRN DAILY PRN PO 2ND CHOICE CONSTIPATION 02/16/21 17:00 03/04/21 09:21 DC Vitamin D (Vitamin D3) 50,000 unit WEEKLY PO 10/13/21 09:00 03/04/21 09:21 DC 02/22/21 07:16 Clonazepam (KlonoPIN) 0.5 mg BID PO 02/16/21 21:00 02/27/21 19:54 DC 02/27/21 10:11 Dicyclomine HCl (Bentyl) 20 mg TID PO 02/16/21 21:00 03/04/21 09:21 DC 03/03/21 21:07 Diphenoxylate HCl/ Atropine (Lomotil) 2 tab BID PO 02/16/21 21:00 03/04/21 09:21 DC 03/03/21 21:08 Divalproex Sodium (Depakote Er) 1,000 mg HS PO 02/16/21 21:00 03/07/21 20:15 DC 03/04/21 21:43 Duloxetine HCl (Cymbalta) 30 mg BID PO 02/16/21 21:00 03/07/21 20:15 DC 03/06/21 08:14 Fluticasone Propionate (Flonase) 2 spray DAILY NS 02/17/21 09:00 03/28/21 08:32 Furosemide (Lasix) 20 mg DAILY PO 02/17/21 09:00 03/04/21 09:21 DC 03/03/21 08:32 Gabapentin (Neurontin) 300 mg QID PO 02/16/21 17:00 03/30/21 20:16 Hydroxyurea (Hydrea) 1,000 mg DAILY PO 02/17/21 09:00 03/30/21 08:32 Levetiracetam (Keppra) 250 mg BID PO 02/16/21 21:00 03/02/21 14:48 DC 03/02/21 09:54 Lidocaine (Lidoderm) 1 patch DAILY TP 02/17/21 09:00 02/17/21 09:24 DC Al Hydroxide/Mg Hydroxide (Mylanta Plus Xs) 15 ml PRN AFTMEALHC PRN PO DYSPEPSIA 02/16/21 17:00 02/16/21 17:36 DC Mirabegron (Myrbetriq) 50 mg DAILY PO 02/17/21 09:00 03/04/21 09:21 DC 03/03/21 08:30 Nystatin (Nystop) 1 debra BID TP 02/16/21 21:00 03/30/21 20:14 Pantoprazole Sodium (Protonix) 40 mg DAILYAC PO 02/17/21 07:30 03/30/21 08:31 Potassium Chloride (Klor-Con) 40 meq DAILY PO 02/17/21 09:00 03/04/21 09:21 DC 03/03/21 08:32 Sulfasalazine (Azulfidine) 500 mg TID PO 02/16/21 21:00 03/07/21 20:15 DC 03/06/21 13:05 Trazodone HCl (Desyrel) 50 mg QHS PO 02/16/21 21:00 03/30/21 20:17 Non-Formulary Medication (Albuterol Sulfate (Albuterol Sulfate Conc Neb Soln)) 1 vial PRN Q4HRS PRN NEB SHORTNESS OF BREATH 02/16/21 17:00 02/16/21 17:49 DC Ascorbic Acid (Vitamin C) 1,000 mg DAILY PO 02/17/21 09:00 03/04/21 09:21 DC 03/03/21 08:34 Diltiazem HCl (Cardizem) 60 mg BID PO 02/16/21 21:00 03/30/21 20:18 Lactobacillus Rhamnosus (Culturelle) 1 cap DAILY PO 02/17/21 09:00 03/04/21 09:21 DC 03/03/21 08:32 Amylase/Lipase/ Protease (Zenpep 10,000) 1 cap TIDBFRMEAL PO 02/17/21 07:30 03/30/21 16:23 Non-Formulary Medication (Magnesium Hydroxide (Milk Of Magnesia)) 2,400 mg PRN DAILY PRN PO CONSTIPATION 02/16/21 17:00 02/16/21 17:37 DC Magnesium Oxide (Magnesium Oxide) 400 mg DAILY PO 02/17/21 09:00 03/04/21 09:21 DC 03/03/21 08:31 Non-Formulary Medication (Methyl Salicylate/ Menthol (Analgesic Cascade)) 1 debra PRN Q6HRS PRN TP MUSCLE PAIN 02/16/21 17:00 02/16/21 17:37 DC Non-Formulary Medication (Umeclidinium [place] (Incruse Ellipta)) 62.5 mcg DAILY IH 02/17/21 09:00 02/16/21 17:49 DC Non-Formulary Medication (Zinc Gluconate ) 50 mg DAILY PO 02/17/21 09:00 02/16/21 17:46 DC Albuterol/ Ipratropium (Duoneb) 3 ml RTQID NEB 02/16/21 20:00 02/17/21 19:52 DC Albuterol Sulfate (Ventolin) 2.5 mg PRN Q4HRS PRN NEB SHORTNESS OF BREATH 02/16/21 18:00 Influenza Virus Vaccine Quadrival (Flulaval Quad [id number] Syringe) 0.5 ml ONCE ONCE VAX IM 02/17/21 09:00 02/17/21 09:01 DC 02/17/21 09:21 Lidocaine (Lidoderm) 1 patch DAILY PRN TP pain 02/17/21 09:30 03/29/21 12:01 DC 03/28/21 08:37 Albuterol/ Ipratropium (Combivent Respimat 20-100 Mcg) 1 puff RTQID INH 02/17/21 20:00 03/30/21 20:00 Sertraline HCl (Zoloft) 25 mg DAILY PO 02/22/21 09:00 02/24/21 10:00 DC 02/24/21 09:59 Sertraline HCl (Zoloft) 50 mg DAILY PO 02/25/21 09:00 03/01/21 18:30 DC 03/01/21 10:07 Olanzapine (ZyPREXA ZYDIS) 5 mg 1X ONCE PO 02/26/21 12:03 02/26/21 12:09 DC 02/26/21 12:25 Clonazepam (KlonoPIN) 0.5 mg DAILY PO 02/28/21 09:00 03/02/21 07:00 DC 03/01/21 10:07 Bupropion HCl (Wellbutrin Xl) 150 mg DAILY PO 03/02/21 09:00 03/08/21 15:46 DC 03/08/21 08:41 Levetiracetam (Keppra) 250 mg DAILY PO 03/03/21 09:00 03/30/21 08:31 Aripiprazole (Abilify) 5 mg DAILY PO 03/05/21 09:00 03/30/21 08:34 Ondansetron HCl (Zofran Odt) 4 mg PRN Q4HRS PRN PO NAUSEA/VOMITING 03/06/21 19:30 03/06/21 19:46 Potassium Chloride (Klor-Con) 30 meq BID PO 03/07/21 09:00 03/30/21 20:19 Divalproex Sodium (Depakote Er) 1,000 mg 1700 PO 03/08/21 17:00 03/12/21 00:01 DC 03/11/21 17:27 Duloxetine HCl (Cymbalta) 30 mg 0900,1700 PO 03/08/21 17:00 03/30/21 16:23 Sulfasalazine (Azulfidine) 500 mg 0900,1300,1700 PO 03/08/21 09:00 03/30/21 16:23 Bupropion HCl (Wellbutrin Xl) 300 mg DAILY PO 03/09/21 09:00 03/30/21 08:31 Potassium Chloride (Klor-Con) 40 meq 1630,1730 PO 03/08/21 16:30 03/08/21 18:04 DC 03/08/21 16:57 Potassium Chloride (Klor-Con) 40 meq 1700,1800 PO 03/08/21 17:15 03/08/21 18:04 DC 03/08/21 17:56 Divalproex Sodium (Depakote Sprinkles) 500 mg BID PO 03/12/21 09:00 03/30/21 20:17 Clotrimazole (Mycelex-7) 1 debra QHS VG 03/18/21 21:00 03/25/21 20:59 DC 03/24/21 20:20 Dicyclomine HCl (Bentyl) 20 mg TID PO 03/18/21 21:00 03/30/21 20:16 Diphenoxylate HCl/ Atropine (Lomotil) 2 tab BID PO 03/18/21 21:00 03/30/21 20:17 Lidocaine (Lidoderm) 1 patch PRN DAILY PRN TP pain 03/29/21 12:15 I have reviewed the current psychotropics carefully including drug interactions. Risk benefit ratio favors no change other than as noted in my dictated progress note. Diagnosis: Problems: (1) Mild cognitive impairment (2) Impulse control disorder, unspecified (3) Anxiety disorder, unspecified (4) Bipolar 1 disorder, depressed NITHIN STEVENS MD Mar 30, 2021 20:32
--- NOTE | 2021-03-30 23:10 | NUR ---
Patient is in her room on assumption of care, awake in bed. She is flat, disorganized. Compliant with assessments and medications whole, a few at a time on a spoon. She has had no agitated or attention seeking behaviors so far this shift. Denies SI. Denies any pain or discomfort. Patient appears to be sleeping comfortably at present time. Will continue to monitor.
[2021-03-31 06:14] VITALS: BP 99/64
[2021-03-31] MEDS: DIPHENOXYLATE/ATROPINE TABLET. PO SCH ×2 (08:24→20:25)
[2021-03-31] MEDS: POTASSIUM CHLORIDE 10 MEQ TABLET.ER. PO SCH ×2 (08:24→20:24)
[2021-03-31] MEDS: sulfaSALAzine 500 MG TABLET PO SCH ×3 (08:24→17:24)
[2021-03-31] MEDS: PANTOPRAZOLE 40 MG TABLET. PO SCH (08:25)
[2021-03-31] MEDS: GABAPENTIN 300 MG CAPSULE. PO SCH ×4 (08:25→20:24)
[2021-03-31] MEDS: levETIRAcetam 250 MG TABLET PO SCH (08:25)
[2021-03-31] MEDS: DICYCLOMINE HCL 20 MG TABLET PO SCH ×3 (08:25→20:24)
[2021-03-31] MEDS: buPROPion XL 300 MG TAB.ER.24H. PO SCH (08:25)
[2021-03-31] MEDS: DIVALPROEX 125 MG CAP.SPRINK PO SCH ×2 (08:26→20:25)
[2021-03-31] MEDS: LIPASE/PROTEAS/AMYLAS 10/32/42 CAPSULE.DR. PO SCH ×3 (08:26→17:24)
[2021-03-31] MEDS: DULoxetine HCL 30 MG CAPSULE.DR PO SCH ×2 (08:26→17:24)
[2021-03-31] MEDS: ARIPiprazole 5 MG TABLET PO SCH (08:26)
[2021-03-31] MEDS: dilTIAZem HCL 30 MG TABLET PO SCH ×2 (08:27→20:25)
[2021-03-31] MEDS: FLUTICASONE 50MCG/NASAL SPRAY 16GM BOTTLE. NS SCH (08:27)
[2021-03-31] MEDS: IPRATROPIUM/ALBUTEROL 20/100mcg/INH INHALER. INH SCH ×4 (08:27→20:23)
[2021-03-31] MEDS: HYDROXYUREA 500 MG CAPSULE PO SCH (08:28)
[2021-03-31] MEDS: NYSTATIN TOPICAL POWDER 15GM BOTTLE. TP SCH ×2 (09:00→20:23)
--- NOTE | 2021-03-31 09:48 | PDOC ---
Exam Note: Napoleon Note: This note is a late entry for 03/29/2021 covers elements not covered in my initial note. Subjective: The patient was seen individually in the evening of 03/29/2021 with Zahira BARR, discussed and reviewed the chart. The patient slept 8 hours previous night. I met with her in her room. She had removed her oxygen cannula and I assisted her in putting it back. I had a lengthy discussion with her about keeping it on at all times and she agreed to do that but after a short while after I returned to her room after seeing a couple of other patients she had again removed it. I did replace it and checked on her a few minutes later again but this time she had kept it on. Review of Systems: Impaired ambulation in Broda chair. Shortness of breath on O2 supplements. No CV, , eye, ENT system symptoms on review. Mental Status Exam: The patient is oriented to herself and situation. Speech is coherent has some latency. Abstraction is fair. Computation impaired. Language function intact. Mood and affect less depressed. No suicidal ideation. Laboratory Data: Reviewed. Impression: Bipolar disorder, depressed. Anxiety disorder unspecified. Impulse control disorder unspecified. Plan: No change from initial note. Assessment: Vital Signs/I&O: Vital Signs Date Time Temp Pulse Resp B/P (MAP) Pulse Ox O2 Delivery O2 Flow Rate FiO2 03/31/21 08:27 88 99/64 03/31/21 06:14 97.5 20 90 Nasal Cannula 2.0 I & O 03/30/21 03/30/21 03/31/21 15:00 23:00 07:00 Intake Total 1067 ml 480 ml Balance 1067 ml 480 ml Current Medications: Meds: Current Medications Medications (Trade) Dose Ordered Sig/Mya Route PRN Reason Start Time Stop Time Status Last Admin Dose Admin Acetaminophen (Tylenol) 650 mg PRN Q6HRS PRN PO MILD PAIN / TEMP > 100.3'F 02/16/21 15:45 03/04/21 09:21 DC 02/18/21 06:31 Multi-Ingredient Ointment (Analgesic [place]) 1 debra PRN QID PRN TP MUSCLE PAIN 02/16/21 15:45 03/04/21 09:21 DC Al Hydroxide/Mg Hydroxide (Mylanta Plus Xs) 15 ml PRN AFTMEALHC PRN PO DYSPEPSIA 02/16/21 15:45 03/04/21 22:05 Magnesium Hydroxide (Milk Of Magnesia) 2,400 mg PRN QHS PRN PO 1ST CHOICE CONSTIPATION 02/16/21 15:45 03/04/21 09:21 DC Acetaminophen (Tylenol) 1,000 mg Q6HRS PRN PO pain or fever 02/16/21 17:00 02/16/21 17:35 DC Acetaminophen (Tylenol) 500 mg Q4HRS PRN PO MILD PAIN 1-3 02/16/21 17:00 02/16/21 17:36 DC Bisacodyl (Dulcolax Tab) 5 mg PRN DAILY PRN PO 2ND CHOICE CONSTIPATION 02/16/21 17:00 03/04/21 09:21 DC Vitamin D (Vitamin D3) 50,000 unit WEEKLY PO 02/22/21 09:00 03/04/21 09:21 DC 02/22/21 07:16 Clonazepam (KlonoPIN) 0.5 mg BID PO 02/16/21 21:00 02/27/21 19:54 DC 02/27/21 10:11 Dicyclomine HCl (Bentyl) 20 mg TID PO 02/16/21 21:00 03/04/21 09:21 DC 03/03/21 21:07 Diphenoxylate HCl/ Atropine (Lomotil) 2 tab BID PO 02/16/21 21:00 03/04/21 09:21 DC 03/03/21 21:08 Divalproex Sodium (Depakote Er) 1,000 mg HS PO 02/16/21 21:00 03/07/21 20:15 DC 03/04/21 21:43 Duloxetine HCl (Cymbalta) 30 mg BID PO 02/16/21 21:00 03/07/21 20:15 DC 03/06/21 08:14 Fluticasone Propionate (Flonase) 2 spray DAILY NS 02/17/21 09:00 03/31/21 08:27 Furosemide (Lasix) 20 mg DAILY PO 02/17/21 09:00 03/04/21 09:21 DC 03/03/21 08:32 Gabapentin (Neurontin) 300 mg QID PO 02/16/21 17:00 03/31/21 08:25 Hydroxyurea (Hydrea) 1,000 mg DAILY PO 02/17/21 09:00 03/31/21 08:28 Levetiracetam (Keppra) 250 mg BID PO 02/16/21 21:00 03/02/21 14:48 DC 03/02/21 09:54 Lidocaine (Lidoderm) 1 patch DAILY TP 02/17/21 09:00 02/17/21 09:24 DC Al Hydroxide/Mg Hydroxide (Mylanta Plus Xs) 15 ml PRN AFTMEALHC PRN PO DYSPEPSIA 02/16/21 17:00 02/16/21 17:36 DC Mirabegron (Myrbetriq) 50 mg DAILY PO 02/17/21 09:00 03/04/21 09:21 DC 03/03/21 08:30 Nystatin (Nystop) 1 debra BID TP 02/16/21 21:00 03/30/21 20:14 Pantoprazole Sodium (Protonix) 40 mg DAILYAC PO 02/17/21 07:30 03/31/21 08:25 Potassium Chloride (Klor-Con) 40 meq DAILY PO 02/17/21 09:00 03/04/21 09:21 DC 03/03/21 08:32 Sulfasalazine (Azulfidine) 500 mg TID PO 02/16/21 21:00 03/07/21 20:15 DC 03/06/21 13:05 Trazodone HCl (Desyrel) 50 mg QHS PO 02/16/21 21:00 03/30/21 20:17 Non-Formulary Medication (Albuterol Sulfate (Albuterol Sulfate Conc Neb Soln)) 1 vial PRN Q4HRS PRN NEB SHORTNESS OF BREATH 02/16/21 17:00 02/16/21 17:49 DC Ascorbic Acid (Vitamin C) 1,000 mg DAILY PO 02/17/21 09:00 03/04/21 09:21 DC 03/03/21 08:34 Diltiazem HCl (Cardizem) 60 mg BID PO 02/16/21 21:00 03/31/21 08:27 Lactobacillus Rhamnosus (Culturelle) 1 cap DAILY PO 02/17/21 09:00 03/04/21 09:21 DC 03/03/21 08:32 Amylase/Lipase/ Protease (Zenpep 10,000) 1 cap TIDBFRMEAL PO 02/17/21 07:30 03/31/21 08:26 Non-Formulary Medication (Magnesium Hydroxide (Milk Of Magnesia)) 2,400 mg PRN DAILY PRN PO CONSTIPATION 02/16/21 17:00 02/16/21 17:37 DC Magnesium Oxide (Magnesium Oxide) 400 mg DAILY PO 02/17/21 09:00 03/04/21 09:21 DC 03/03/21 08:31 Non-Formulary Medication (Methyl Salicylate/ Menthol (Analgesic [place])) 1 debra PRN Q6HRS PRN TP MUSCLE PAIN 02/16/21 17:00 02/16/21 17:37 DC Non-Formulary Medication (Umeclidinium [place] (Incruse Ellipta)) 62.5 mcg DAILY IH 02/17/21 09:00 02/16/21 17:49 DC Non-Formulary Medication (Zinc Gluconate ) 50 mg DAILY PO 02/17/21 09:00 02/16/21 17:46 DC Albuterol/ Ipratropium (Duoneb) 3 ml RTQID NEB 02/16/21 20:00 02/17/21 19:52 DC Albuterol Sulfate (Ventolin) 2.5 mg PRN Q4HRS PRN NEB SHORTNESS OF BREATH 02/16/21 18:00 Influenza Virus Vaccine Quadrival (Flulaval Quad [id number] Syringe) 0.5 ml ONCE ONCE VAX IM 02/17/21 09:00 02/17/21 09:01 DC 02/17/21 09:21 Lidocaine (Lidoderm) 1 patch DAILY PRN TP pain 02/17/21 09:30 03/29/21 12:01 DC 03/28/21 08:37 Albuterol/ Ipratropium (Combivent Respimat 20-100 Mcg) 1 puff RTQID INH 02/17/21 20:00 03/31/21 08:27 Sertraline HCl (Zoloft) 25 mg DAILY PO 02/22/21 09:00 02/24/21 10:00 DC 02/24/21 09:59 Sertraline HCl (Zoloft) 50 mg DAILY PO 02/25/21 09:00 03/01/21 18:30 DC 03/01/21 10:07 Olanzapine (ZyPREXA ZYDIS) 5 mg 1X ONCE PO 02/26/21 12:03 02/26/21 12:09 DC 02/26/21 12:25 Clonazepam (KlonoPIN) 0.5 mg DAILY PO 02/28/21 09:00 03/02/21 07:00 DC 03/01/21 10:07 Bupropion HCl (Wellbutrin Xl) 150 mg DAILY PO 03/02/21 09:00 03/08/21 15:46 DC 03/08/21 08:41 Levetiracetam (Keppra) 250 mg DAILY PO 03/03/21 09:00 03/31/21 08:25 Aripiprazole (Abilify) 5 mg DAILY PO 03/05/21 09:00 03/31/21 08:26 Ondansetron HCl (Zofran Odt) 4 mg PRN Q4HRS PRN PO NAUSEA/VOMITING 03/06/21 19:30 03/06/21 19:46 Potassium Chloride (Klor-Con) 30 meq BID PO 03/07/21 09:00 03/31/21 08:24 Divalproex Sodium (Depakote Er) 1,000 mg 1700 PO 03/08/21 17:00 03/12/21 00:01 DC 03/11/21 17:27 Duloxetine HCl (Cymbalta) 30 mg 0900,1700 PO 03/08/21 17:00 03/31/21 08:26 Sulfasalazine (Azulfidine) 500 mg 0900,1300,1700 PO 03/08/21 09:00 03/31/21 08:24 Bupropion HCl (Wellbutrin Xl) 300 mg DAILY PO 03/09/21 09:00 03/31/21 08:25 Potassium Chloride (Klor-Con) 40 meq 1630,1730 PO 03/08/21 16:30 03/08/21 18:04 DC 03/08/21 16:57 Potassium Chloride (Klor-Con) 40 meq 1700,1800 PO 03/08/21 17:15 03/08/21 18:04 DC 03/08/21 17:56 Divalproex Sodium (Depakote Sprinkles) 500 mg BID PO 03/12/21 09:00 03/31/21 08:26 Clotrimazole (Mycelex-7) 1 debra QHS VG 03/18/21 21:00 03/25/21 20:59 DC 03/24/21 20:20 Dicyclomine HCl (Bentyl) 20 mg TID PO 03/18/21 21:00 03/31/21 08:25 Diphenoxylate HCl/ Atropine (Lomotil) 2 tab BID PO 03/18/21 21:00 03/31/21 08:24 Lidocaine (Lidoderm) 1 patch PRN DAILY PRN TP pain 03/29/21 12:15 I have reviewed the current psychotropics carefully including drug interactions. Risk benefit ratio favors no change other than as noted in my dictated progress note. Diagnosis: Problems: (1) Impulse control disorder, unspecified (2) Mild cognitive impairment (3) Anxiety disorder, unspecified (4) Bipolar 1 disorder, depressed NITHIN STEVENS MD Mar 31, 2021 09:48
--- NOTE | 2021-03-31 10:04 | PDOC ---
Exam Note: Napoleon Note: This note is a late entry for 03/30/2021 covers elements not covered in my initial note. Subjective: The patient was reviewed at treatment team meeting individually in the morning on 03/30/2021 with Lety Farley, Rosalva Hutton, and Archana Dillard (oncology social work), Bessy, activity therapy, Jessie RN, Refrigerator Repairman, and Cheryl RN, discussed and reviewed the chart. We discussed the patients diagnoses, progress. The patient slept 7 hours previous night. Patient has been better in swallowing her medications. She did push herself out of the wheelchair. CT head was unremarkable. We will defer medical management to Dr. Clark. UA is contaminated. She has attended one group in the past one week. Also discussed with [place] in the evening. Review of Systems: Impaired ambulation in wheelchair. Shortness of breath on O2 supplements. No CV, , eye, ENT system symptoms on review. Mental Status Exam: The patient is oriented to herself and situation. Speech has some latency, coherent. Abstraction fair. Computation impaired. Language function intact. Mood and affect depressed, withdrawn. No suicidal ideation. Laboratory Data: Reviewed. Impression: Bipolar disorder, depressed. Anxiety disorder unspecified. Impulse control disorder unspecified. Plan: No change from initial note. Assessment: Vital Signs/I&O: Vital Signs Date Time Temp Pulse Resp B/P (MAP) Pulse Ox O2 Delivery O2 Flow Rate FiO2 03/31/21 08:27 88 99/64 03/31/21 06:14 97.5 20 90 Nasal Cannula 2.0 I & O 03/30/21 03/30/21 03/31/21 14:59 22:59 06:59 Intake Total 1067 ml 480 ml Balance 1067 ml 480 ml Current Medications: Meds: Current Medications Medications (Trade) Dose Ordered Sig/Mya Route PRN Reason Start Time Stop Time Status Last Admin Dose Admin Acetaminophen (Tylenol) 650 mg PRN Q6HRS PRN PO MILD PAIN / TEMP > 100.3'F 02/16/21 15:45 03/04/21 09:21 DC 02/18/21 06:31 Multi-Ingredient Ointment (Analgesic [place]) 1 debra PRN QID PRN TP MUSCLE PAIN 02/16/21 15:45 03/04/21 09:21 DC Al Hydroxide/Mg Hydroxide (Mylanta Plus Xs) 15 ml PRN AFTMEALHC PRN PO DYSPEPSIA 02/16/21 15:45 03/04/21 22:05 Magnesium Hydroxide (Milk Of Magnesia) 2,400 mg PRN QHS PRN PO 1ST CHOICE CONSTIPATION 02/16/21 15:45 03/04/21 09:21 DC Acetaminophen (Tylenol) 1,000 mg Q6HRS PRN PO pain or fever 02/16/21 17:00 02/16/21 17:35 DC Acetaminophen (Tylenol) 500 mg Q4HRS PRN PO MILD PAIN 1-3 02/16/21 17:00 02/16/21 17:36 DC Bisacodyl (Dulcolax Tab) 5 mg PRN DAILY PRN PO 2ND CHOICE CONSTIPATION 02/16/21 17:00 03/04/21 09:21 DC Vitamin D (Vitamin D3) 50,000 unit WEEKLY PO 02/22/21 09:00 03/04/21 09:21 DC 02/22/21 07:16 Clonazepam (KlonoPIN) 0.5 mg BID PO 02/16/21 21:00 02/27/21 19:54 DC 02/27/21 10:11 Dicyclomine HCl (Bentyl) 20 mg TID PO 02/16/21 21:00 03/04/21 09:21 DC 03/03/21 21:07 Diphenoxylate HCl/ Atropine (Lomotil) 2 tab BID PO 02/16/21 21:00 03/04/21 09:21 DC 03/03/21 21:08 Divalproex Sodium (Depakote Er) 1,000 mg HS PO 02/16/21 21:00 03/07/21 20:15 DC 03/04/21 21:43 Duloxetine HCl (Cymbalta) 30 mg BID PO 02/16/21 21:00 03/07/21 20:15 DC 03/06/21 08:14 Fluticasone Propionate (Flonase) 2 spray DAILY NS 02/17/21 09:00 03/31/21 08:27 Furosemide (Lasix) 20 mg DAILY PO 02/17/21 09:00 03/04/21 09:21 DC 03/03/21 08:32 Gabapentin (Neurontin) 300 mg QID PO 02/16/21 17:00 03/31/21 08:25 Hydroxyurea (Hydrea) 1,000 mg DAILY PO 02/17/21 09:00 03/31/21 08:28 Levetiracetam (Keppra) 250 mg BID PO 02/16/21 21:00 03/02/21 14:48 DC 03/02/21 09:54 Lidocaine (Lidoderm) 1 patch DAILY TP 02/17/21 09:00 02/17/21 09:24 DC Al Hydroxide/Mg Hydroxide (Mylanta Plus Xs) 15 ml PRN AFTMEALHC PRN PO DYSPEPSIA 02/16/21 17:00 02/16/21 17:36 DC Mirabegron (Myrbetriq) 50 mg DAILY PO 02/17/21 09:00 03/04/21 09:21 DC 03/03/21 08:30 Nystatin (Nystop) 1 debra BID TP 02/16/21 21:00 03/30/21 20:14 Pantoprazole Sodium (Protonix) 40 mg DAILYAC PO 02/17/21 07:30 03/31/21 08:25 Potassium Chloride (Klor-Con) 40 meq DAILY PO 02/17/21 09:00 03/04/21 09:21 DC 03/03/21 08:32 Sulfasalazine (Azulfidine) 500 mg TID PO 02/16/21 21:00 03/07/21 20:15 DC 03/06/21 13:05 Trazodone HCl (Desyrel) 50 mg QHS PO 02/16/21 21:00 03/30/21 20:17 Non-Formulary Medication (Albuterol Sulfate (Albuterol Sulfate Conc Neb Soln)) 1 vial PRN Q4HRS PRN NEB SHORTNESS OF BREATH 02/16/21 17:00 02/16/21 17:49 DC Ascorbic Acid (Vitamin C) 1,000 mg DAILY PO 02/17/21 09:00 03/04/21 09:21 DC 03/03/21 08:34 Diltiazem HCl (Cardizem) 60 mg BID PO 02/16/21 21:00 03/31/21 08:27 Lactobacillus Rhamnosus (Culturelle) 1 cap DAILY PO 02/17/21 09:00 03/04/21 09:21 DC 03/03/21 08:32 Amylase/Lipase/ Protease (Zenpep 10,000) 1 cap TIDBFRMEAL PO 02/17/21 07:30 03/31/21 08:26 Non-Formulary Medication (Magnesium Hydroxide (Milk Of Magnesia)) 2,400 mg PRN DAILY PRN PO CONSTIPATION 02/16/21 17:00 02/16/21 17:37 DC Magnesium Oxide (Magnesium Oxide) 400 mg DAILY PO 02/17/21 09:00 03/04/21 09:21 DC 03/03/21 08:31 Non-Formulary Medication (Methyl Salicylate/ Menthol (Analgesic [place])) 1 debra PRN Q6HRS PRN TP MUSCLE PAIN 02/16/21 17:00 02/16/21 17:37 DC Non-Formulary Medication (Umeclidinium [place] (Incruse Ellipta)) 62.5 mcg DAILY IH 02/17/21 09:00 02/16/21 17:49 DC Non-Formulary Medication (Zinc Gluconate ) 50 mg DAILY PO 02/17/21 09:00 02/16/21 17:46 DC Albuterol/ Ipratropium (Duoneb) 3 ml RTQID NEB 02/16/21 20:00 02/17/21 19:52 DC Albuterol Sulfate (Ventolin) 2.5 mg PRN Q4HRS PRN NEB SHORTNESS OF BREATH 02/16/21 18:00 Influenza Virus Vaccine Quadrival (Flulaval Quad [id number] Syringe) 0.5 ml ONCE ONCE VAX IM 02/17/21 09:00 02/17/21 09:01 DC 02/17/21 09:21 Lidocaine (Lidoderm) 1 patch DAILY PRN TP pain 02/17/21 09:30 03/29/21 12:01 DC 03/28/21 08:37 Albuterol/ Ipratropium (Combivent Respimat 20-100 Mcg) 1 puff RTQID INH 02/17/21 20:00 03/31/21 08:27 Sertraline HCl (Zoloft) 25 mg DAILY PO 02/22/21 09:00 02/24/21 10:00 DC 02/24/21 09:59 Sertraline HCl (Zoloft) 50 mg DAILY PO 02/25/21 09:00 03/01/21 18:30 DC 03/01/21 10:07 Olanzapine (ZyPREXA ZYDIS) 5 mg 1X ONCE PO 02/26/21 12:03 02/26/21 12:09 DC 02/26/21 12:25 Clonazepam (KlonoPIN) 0.5 mg DAILY PO 02/28/21 09:00 03/02/21 07:00 DC 03/01/21 10:07 Bupropion HCl (Wellbutrin Xl) 150 mg DAILY PO 03/02/21 09:00 03/08/21 15:46 DC 03/08/21 08:41 Levetiracetam (Keppra) 250 mg DAILY PO 03/03/21 09:00 03/31/21 08:25 Aripiprazole (Abilify) 5 mg DAILY PO 03/05/21 09:00 03/31/21 08:26 Ondansetron HCl (Zofran Odt) 4 mg PRN Q4HRS PRN PO NAUSEA/VOMITING 03/06/21 19:30 03/06/21 19:46 Potassium Chloride (Klor-Con) 30 meq BID PO 03/07/21 09:00 03/31/21 08:24 Divalproex Sodium (Depakote Er) 1,000 mg 1700 PO 03/08/21 17:00 03/12/21 00:01 DC 03/11/21 17:27 Duloxetine HCl (Cymbalta) 30 mg 0900,1700 PO 03/08/21 17:00 03/31/21 08:26 Sulfasalazine (Azulfidine) 500 mg 0900,1300,1700 PO 03/08/21 09:00 03/31/21 08:24 Bupropion HCl (Wellbutrin Xl) 300 mg DAILY PO 03/09/21 09:00 03/31/21 08:25 Potassium Chloride (Klor-Con) 40 meq 1630,1730 PO 03/08/21 16:30 03/08/21 18:04 DC 03/08/21 16:57 Potassium Chloride (Klor-Con) 40 meq 1700,1800 PO 03/08/21 17:15 03/08/21 18:04 DC 03/08/21 17:56 Divalproex Sodium (Depakote Sprinkles) 500 mg BID PO 03/12/21 09:00 03/31/21 08:26 Clotrimazole (Mycelex-7) 1 debra QHS VG 03/18/21 21:00 03/25/21 20:59 DC 03/24/21 20:20 Dicyclomine HCl (Bentyl) 20 mg TID PO 03/18/21 21:00 03/31/21 08:25 Diphenoxylate HCl/ Atropine (Lomotil) 2 tab BID PO 03/18/21 21:00 03/31/21 08:24 Lidocaine (Lidoderm) 1 patch PRN DAILY PRN TP pain 03/29/21 12:15 I have reviewed the current psychotropics carefully including drug interactions. Risk benefit ratio favors no change other than as noted in my dictated progress note. Diagnosis: Problems: (1) Impulse control disorder, unspecified (2) Anxiety disorder, unspecified (3) Bipolar 1 disorder, depressed (4) Mild cognitive impairment NITHIN STEVENS MD Mar 31, 2021 10:04
[2021-03-31 15:48] VITALS: BP 102/59
--- NOTE | 2021-03-31 18:30 | NUR ---
Patient has been disorganized, generally calm, and cooperative today. She was interactive with staff and peers. Patient was up in the [place] for most of the afternoon. Will continue to monitor and report to oncoming shift.
[2021-03-31] MEDS: traZODone 50 MG TABLET. PO SCH (20:24)
--- NOTE | 2021-03-31 20:26 | PDOC ---
Exam Note: Napoleon Note: Please also refer to the separate dictated note~for this date of service dictated separately.~Patient seen individually. Discussed the patient with Nursing staff reviewed the chart.~Reviewed interim history and current functioning. Reviewed vital signs,~Labs/ Radiology~and current medications noted below. Continue current treatment with the changes noted in the dictated addendum note Assessment: Vital Signs/I&O: Vital Signs Date Time Temp Pulse Resp B/P (MAP) Pulse Ox O2 Delivery O2 Flow Rate FiO2 03/31/21 15:48 98.1 89 18 102/59 (73) 93 Room Air 2.0 I & O 03/30/21 03/30/21 03/31/21 15:00 23:00 07:00 Intake Total 1067 ml 480 ml Balance 1067 ml 480 ml Current Medications: Meds: Current Medications Medications (Trade) Dose Ordered Sig/Mya Route PRN Reason Start Time Stop Time Status Last Admin Dose Admin Acetaminophen (Tylenol) 650 mg PRN Q6HRS PRN PO MILD PAIN / TEMP > 100.3'F 02/16/21 15:45 03/04/21 09:21 DC 02/18/21 06:31 Multi-Ingredient Ointment (Analgesic [place]) 1 debra PRN QID PRN TP MUSCLE PAIN 02/16/21 15:45 03/04/21 09:21 DC Al Hydroxide/Mg Hydroxide (Mylanta Plus Xs) 15 ml PRN AFTMEALHC PRN PO DYSPEPSIA 02/16/21 15:45 03/04/21 22:05 Magnesium Hydroxide (Milk Of Magnesia) 2,400 mg PRN QHS PRN PO 1ST CHOICE CONSTIPATION 02/16/21 15:45 03/04/21 09:21 DC Acetaminophen (Tylenol) 1,000 mg Q6HRS PRN PO pain or fever 02/16/21 17:00 02/16/21 17:35 DC Acetaminophen (Tylenol) 500 mg Q4HRS PRN PO MILD PAIN 1-3 02/16/21 17:00 02/16/21 17:36 DC Bisacodyl (Dulcolax Tab) 5 mg PRN DAILY PRN PO 2ND CHOICE CONSTIPATION 02/16/21 17:00 03/04/21 09:21 DC Vitamin D (Vitamin D3) 50,000 unit WEEKLY PO 02/22/21 09:00 03/04/21 09:21 DC 02/22/21 07:16 Clonazepam (KlonoPIN) 0.5 mg BID PO 02/16/21 21:00 02/27/21 19:54 DC 02/27/21 10:11 Dicyclomine HCl (Bentyl) 20 mg TID PO 02/16/21 21:00 03/04/21 09:21 DC 03/03/21 21:07 Diphenoxylate HCl/ Atropine (Lomotil) 2 tab BID PO 02/16/21 21:00 03/04/21 09:21 DC 03/03/21 21:08 Divalproex Sodium (Depakote Er) 1,000 mg HS PO 02/16/21 21:00 03/07/21 20:15 DC 03/04/21 21:43 Duloxetine HCl (Cymbalta) 30 mg BID PO 02/16/21 21:00 03/07/21 20:15 DC 03/06/21 08:14 Fluticasone Propionate (Flonase) 2 spray DAILY NS 02/17/21 09:00 03/31/21 08:27 Furosemide (Lasix) 20 mg DAILY PO 02/17/21 09:00 03/04/21 09:21 DC 03/03/21 08:32 Gabapentin (Neurontin) 300 mg QID PO 02/16/21 17:00 03/31/21 17:24 Hydroxyurea (Hydrea) 1,000 mg DAILY PO 02/17/21 09:00 03/31/21 08:28 Levetiracetam (Keppra) 250 mg BID PO 02/16/21 21:00 03/02/21 14:48 DC 03/02/21 09:54 Lidocaine (Lidoderm) 1 patch DAILY TP 02/17/21 09:00 02/17/21 09:24 DC Al Hydroxide/Mg Hydroxide (Mylanta Plus Xs) 15 ml PRN AFTMEALHC PRN PO DYSPEPSIA 02/16/21 17:00 02/16/21 17:36 DC Mirabegron (Myrbetriq) 50 mg DAILY PO 02/17/21 09:00 03/04/21 09:21 DC 03/03/21 08:30 Nystatin (Nystop) 1 debra BID TP 02/16/21 21:00 03/30/21 20:14 Pantoprazole Sodium (Protonix) 40 mg DAILYAC PO 02/17/21 07:30 03/31/21 08:25 Potassium Chloride (Klor-Con) 40 meq DAILY PO 02/17/21 09:00 03/04/21 09:21 DC 03/03/21 08:32 Sulfasalazine (Azulfidine) 500 mg TID PO 02/16/21 21:00 03/07/21 20:15 DC 03/06/21 13:05 Trazodone HCl (Desyrel) 50 mg QHS PO 02/16/21 21:00 03/30/21 20:17 Non-Formulary Medication (Albuterol Sulfate (Albuterol Sulfate Conc Neb Soln)) 1 vial PRN Q4HRS PRN NEB SHORTNESS OF BREATH 02/16/21 17:00 02/16/21 17:49 DC Ascorbic Acid (Vitamin C) 1,000 mg DAILY PO 02/17/21 09:00 03/04/21 09:21 DC 03/03/21 08:34 Diltiazem HCl (Cardizem) 60 mg BID PO 02/16/21 21:00 03/31/21 08:27 Lactobacillus Rhamnosus (Culturelle) 1 cap DAILY PO 02/17/21 09:00 03/04/21 09:21 DC 03/03/21 08:32 Amylase/Lipase/ Protease (Zenpep 10,000) 1 cap TIDBFRMEAL PO 02/17/21 07:30 03/31/21 17:24 Non-Formulary Medication (Magnesium Hydroxide (Milk Of Magnesia)) 2,400 mg PRN DAILY PRN PO CONSTIPATION 02/16/21 17:00 02/16/21 17:37 DC Magnesium Oxide (Magnesium Oxide) 400 mg DAILY PO 02/17/21 09:00 03/04/21 09:21 DC 03/03/21 08:31 Non-Formulary Medication (Methyl Salicylate/ Menthol (Analgesic [place])) 1 debra PRN Q6HRS PRN TP MUSCLE PAIN 02/16/21 17:00 02/16/21 17:37 DC Non-Formulary Medication (Umeclidinium [place] (Incruse Ellipta)) 62.5 mcg DAILY IH 02/17/21 09:00 02/16/21 17:49 DC Non-Formulary Medication (Zinc Gluconate ) 50 mg DAILY PO 02/17/21 09:00 02/16/21 17:46 DC Albuterol/ Ipratropium (Duoneb) 3 ml RTQID NEB 02/16/21 20:00 02/17/21 19:52 DC Albuterol Sulfate (Ventolin) 2.5 mg PRN Q4HRS PRN NEB SHORTNESS OF BREATH 02/16/21 18:00 Influenza Virus Vaccine Quadrival (Flulaval Quad [id number] Syringe) 0.5 ml ONCE ONCE VAX IM 02/17/21 09:00 02/17/21 09:01 DC 02/17/21 09:21 Lidocaine (Lidoderm) 1 patch DAILY PRN TP pain 02/17/21 09:30 03/29/21 12:01 DC 03/28/21 08:37 Albuterol/ Ipratropium (Combivent Respimat 20-100 Mcg) 1 puff RTQID INH 02/17/21 20:00 03/31/21 17:24 Sertraline HCl (Zoloft) 25 mg DAILY PO 02/22/21 09:00 02/24/21 10:00 DC 02/24/21 09:59 Sertraline HCl (Zoloft) 50 mg DAILY PO 02/25/21 09:00 03/01/21 18:30 DC 03/01/21 10:07 Olanzapine (ZyPREXA ZYDIS) 5 mg 1X ONCE PO 02/26/21 12:03 02/26/21 12:09 DC 02/26/21 12:25 Clonazepam (KlonoPIN) 0.5 mg DAILY PO 02/28/21 09:00 03/02/21 07:00 DC 03/01/21 10:07 Bupropion HCl (Wellbutrin Xl) 150 mg DAILY PO 03/02/21 09:00 03/08/21 15:46 DC 03/08/21 08:41 Levetiracetam (Keppra) 250 mg DAILY PO 03/03/21 09:00 03/31/21 08:25 Aripiprazole (Abilify) 5 mg DAILY PO 03/05/21 09:00 03/31/21 08:26 Ondansetron HCl (Zofran Odt) 4 mg PRN Q4HRS PRN PO NAUSEA/VOMITING 03/06/21 19:30 03/06/21 19:46 Potassium Chloride (Klor-Con) 30 meq BID PO 03/07/21 09:00 03/31/21 08:24 Divalproex Sodium (Depakote Er) 1,000 mg 1700 PO 03/08/21 17:00 03/12/21 00:01 DC 03/11/21 17:27 Duloxetine HCl (Cymbalta) 30 mg 0900,1700 PO 03/08/21 17:00 03/31/21 17:24 Sulfasalazine (Azulfidine) 500 mg 0900,1300,1700 PO 03/08/21 09:00 03/31/21 17:24 Bupropion HCl (Wellbutrin Xl) 300 mg DAILY PO 03/09/21 09:00 03/31/21 08:25 Potassium Chloride (Klor-Con) 40 meq 1630,1730 PO 03/08/21 16:30 03/08/21 18:04 DC 03/08/21 16:57 Potassium Chloride (Klor-Con) 40 meq 1700,1800 PO 03/08/21 17:15 03/08/21 18:04 DC 03/08/21 17:56 Divalproex Sodium (Depakote Sprinkles) 500 mg BID PO 03/12/21 09:00 03/31/21 08:26 Clotrimazole (Mycelex-7) 1 debra QHS VG 03/18/21 21:00 03/25/21 20:59 DC 03/24/21 20:20 Dicyclomine HCl (Bentyl) 20 mg TID PO 03/18/21 21:00 03/31/21 12:44 Diphenoxylate HCl/ Atropine (Lomotil) 2 tab BID PO 03/18/21 21:00 03/31/21 08:24 Lidocaine (Lidoderm) 1 patch PRN DAILY PRN TP pain 03/29/21 12:15 I have reviewed the current psychotropics carefully including drug interactions. Risk benefit ratio favors no change other than as noted in my dictated progress note. Diagnosis: Problems: (1) Impulse control disorder, unspecified (2) Mild cognitive impairment (3) Anxiety disorder, unspecified (4) Bipolar 1 disorder, depressed HILDA,MAN M MD Mar 31, 2021 20:26
--- NOTE | 2021-03-31 23:15 | NUR ---
Patient is in the day room on assumption of care, watching television with her peers. She is disorganized, but in better spirits than she was on previous evening. Compliant with assessments and medications whole, a few at a time on a spoon. She has had no agitated or attention seeking behaviors so far this shift. Denies SI. Denies any pain or discomfort. Patient appears to be sleeping comfortably at present time. Will continue to monitor.
[2021-04-01 05:38] VITALS: BP 98/61
[2021-04-01] MEDS: FLUTICASONE 50MCG/NASAL SPRAY 16GM BOTTLE. NS SCH (08:07)
[2021-04-01] MEDS: PANTOPRAZOLE 40 MG TABLET. PO SCH (08:07)
[2021-04-01] MEDS: IPRATROPIUM/ALBUTEROL 20/100mcg/INH INHALER. INH SCH ×4 (08:07→19:29)
[2021-04-01] MEDS: DULoxetine HCL 30 MG CAPSULE.DR PO SCH ×2 (08:08→17:09)
[2021-04-01] MEDS: DIPHENOXYLATE/ATROPINE TABLET. PO SCH ×2 (08:08→19:32)
[2021-04-01] MEDS: sulfaSALAzine 500 MG TABLET PO SCH ×3 (08:08→17:09)
[2021-04-01] MEDS: LIPASE/PROTEAS/AMYLAS 10/32/42 CAPSULE.DR. PO SCH ×3 (08:08→17:09)
[2021-04-01] MEDS: buPROPion XL 300 MG TAB.ER.24H. PO SCH (08:09)
[2021-04-01] MEDS: DIVALPROEX 125 MG CAP.SPRINK PO SCH ×2 (08:09→19:29)
[2021-04-01] MEDS: POTASSIUM CHLORIDE 10 MEQ TABLET.ER. PO SCH ×2 (08:09→19:32)
[2021-04-01] MEDS: dilTIAZem HCL 30 MG TABLET PO SCH ×2 (08:10→19:30)
[2021-04-01] MEDS: GABAPENTIN 300 MG CAPSULE. PO SCH ×4 (08:10→19:29)
[2021-04-01] MEDS: levETIRAcetam 250 MG TABLET PO SCH (08:11)
[2021-04-01] MEDS: DICYCLOMINE HCL 20 MG TABLET PO SCH ×3 (08:11→19:32)
[2021-04-01] MEDS: ARIPiprazole 5 MG TABLET PO SCH (08:11)
[2021-04-01] MEDS: HYDROXYUREA 500 MG CAPSULE PO SCH (08:12)
[2021-04-01] MEDS: NYSTATIN TOPICAL POWDER 15GM BOTTLE. TP SCH ×2 (09:00→19:29)
[2021-04-01 15:27] VITALS: BP 109/73
[2021-04-01] MEDS: traZODone 50 MG TABLET. PO SCH (19:31)
--- NOTE | 2021-04-01 21:49 | PDOC ---
Exam Note: Napoleon Note: Please also refer to the separate dictated note~for this date of service dictated separately.~Patient seen individually. Discussed the patient with Nursing staff reviewed the chart.~Reviewed interim history and current functioning. Reviewed vital signs,~Labs/ Radiology~and current medications noted below. Continue current treatment with the changes noted in the dictated addendum note Assessment: Vital Signs/I&O: Vital Signs Date Time Temp Pulse Resp B/P (MAP) Pulse Ox O2 Delivery O2 Flow Rate FiO2 04/01/21 19:30 97 109/73 04/01/21 15:27 97.5 22 93 04/01/21 05:38 Nasal Cannula 2.0 I & O 0 03/31/21 03/31/21 04/01/21 15:00 23:00 07:00 Intake Total 720 ml 480 ml 320 ml Balance 720 ml 480 ml 320 ml Current Medications: Meds: Current Medications Medications (Trade) Dose Ordered Sig/Mya Route PRN Reason Start Time Stop Time Status Last Admin Dose Admin Acetaminophen (Tylenol) 650 mg PRN Q6HRS PRN PO MILD PAIN / TEMP > 100.3'F 02/16/21 15:45 03/04/21 09:21 DC 02/18/21 06:31 Multi-Ingredient Ointment (Analgesic [place]) 1 debra PRN QID PRN TP MUSCLE PAIN 02/16/21 15:45 03/04/21 09:21 DC Al Hydroxide/Mg Hydroxide (Mylanta Plus Xs) 15 ml PRN AFTMEALHC PRN PO DYSPEPSIA 02/16/21 15:45 03/04/21 22:05 Magnesium Hydroxide (Milk Of Magnesia) 2,400 mg PRN QHS PRN PO 1ST CHOICE CONSTIPATION 02/16/21 15:45 03/04/21 09:21 DC Acetaminophen (Tylenol) 1,000 mg Q6HRS PRN PO pain or fever 02/16/21 17:00 02/16/21 17:35 DC Acetaminophen (Tylenol) 500 mg Q4HRS PRN PO MILD PAIN 1-3 02/16/21 17:00 02/16/21 17:36 DC Bisacodyl (Dulcolax Tab) 5 mg PRN DAILY PRN PO 2ND CHOICE CONSTIPATION 02/16/21 17:00 03/04/21 09:21 DC Vitamin D (Vitamin D3) 50,000 unit WEEKLY PO 02/22/21 09:00 03/04/21 09:21 DC 02/22/21 07:16 Clonazepam (KlonoPIN) 0.5 mg BID PO 02/16/21 21:00 02/27/21 19:54 DC 02/27/21 10:11 Dicyclomine HCl (Bentyl) 20 mg TID PO 02/16/21 21:00 03/04/21 09:21 DC 03/03/21 21:07 Diphenoxylate HCl/ Atropine (Lomotil) 2 tab BID PO 02/16/21 21:00 03/04/21 09:21 DC 03/03/21 21:08 Divalproex Sodium (Depakote Er) 1,000 mg HS PO 02/16/21 21:00 03/07/21 20:15 DC 03/04/21 21:43 Duloxetine HCl (Cymbalta) 30 mg BID PO 02/16/21 21:00 03/07/21 20:15 DC 03/06/21 08:14 Fluticasone Propionate (Flonase) 2 spray DAILY NS 02/17/21 09:00 04/01/21 08:07 Furosemide (Lasix) 20 mg DAILY PO 02/17/21 09:00 03/04/21 09:21 DC 03/03/21 08:32 Gabapentin (Neurontin) 300 mg QID PO 02/16/21 17:00 04/01/21 19:29 Hydroxyurea (Hydrea) 1,000 mg DAILY PO 02/17/21 09:00 04/01/21 08:12 Levetiracetam (Keppra) 250 mg BID PO 02/16/21 21:00 03/02/21 14:48 DC 03/02/21 09:54 Lidocaine (Lidoderm) 1 patch DAILY TP 02/17/21 09:00 02/17/21 09:24 DC Al Hydroxide/Mg Hydroxide (Mylanta Plus Xs) 15 ml PRN AFTMEALHC PRN PO DYSPEPSIA 02/16/21 17:00 02/16/21 17:36 DC Mirabegron (Myrbetriq) 50 mg DAILY PO 02/17/21 09:00 03/04/21 09:21 DC 03/03/21 08:30 Nystatin (Nystop) 1 debra BID TP 02/16/21 21:00 04/01/21 19:29 Pantoprazole Sodium (Protonix) 40 mg DAILYAC PO 02/17/21 07:30 04/01/21 08:07 Potassium Chloride (Klor-Con) 40 meq DAILY PO 02/17/21 09:00 03/04/21 09:21 DC 03/03/21 08:32 Sulfasalazine (Azulfidine) 500 mg TID PO 02/16/21 21:00 03/07/21 20:15 DC 03/06/21 13:05 Trazodone HCl (Desyrel) 50 mg QHS PO 02/16/21 21:00 04/01/21 19:31 Non-Formulary Medication (Albuterol Sulfate (Albuterol Sulfate Conc Neb Soln)) 1 vial PRN Q4HRS PRN NEB SHORTNESS OF BREATH 02/16/21 17:00 02/16/21 17:49 DC Ascorbic Acid (Vitamin C) 1,000 mg DAILY PO 02/17/21 09:00 03/04/21 09:21 DC 03/03/21 08:34 Diltiazem HCl (Cardizem) 60 mg BID PO 02/16/21 21:00 04/01/21 19:30 Lactobacillus Rhamnosus (Culturelle) 1 cap DAILY PO 02/17/21 09:00 03/04/21 09:21 DC 03/03/21 08:32 Amylase/Lipase/ Protease (Zenpep 10,000) 1 cap TIDBFRMEAL PO 02/17/21 07:30 04/01/21 17:09 Non-Formulary Medication (Magnesium Hydroxide (Milk Of Magnesia)) 2,400 mg PRN DAILY PRN PO CONSTIPATION 02/16/21 17:00 02/16/21 17:37 DC Magnesium Oxide (Magnesium Oxide) 400 mg DAILY PO 02/17/21 09:00 03/04/21 09:21 DC 03/03/21 08:31 Non-Formulary Medication (Methyl Salicylate/ Menthol (Analgesic [place])) 1 debra PRN Q6HRS PRN TP MUSCLE PAIN 02/16/21 17:00 02/16/21 17:37 DC Non-Formulary Medication (Umeclidinium [place] (Incruse Ellipta)) 62.5 mcg DAILY IH 02/17/21 09:00 02/16/21 17:49 DC Non-Formulary Medication (Zinc Gluconate ) 50 mg DAILY PO 02/17/21 09:00 02/16/21 17:46 DC Albuterol/ Ipratropium (Duoneb) 3 ml RTQID NEB 02/16/21 20:00 02/17/21 19:52 DC Albuterol Sulfate (Ventolin) 2.5 mg PRN Q4HRS PRN NEB SHORTNESS OF BREATH 02/16/21 18:00 Influenza Virus Vaccine Quadrival (Flulaval Quad [id number] Syringe) 0.5 ml ONCE ONCE VAX IM 02/17/21 09:00 02/17/21 09:01 DC 02/17/21 09:21 Lidocaine (Lidoderm) 1 patch DAILY PRN TP pain 02/17/21 09:30 03/29/21 12:01 DC 03/28/21 08:37 Albuterol/ Ipratropium (Combivent Respimat 20-100 Mcg) 1 puff RTQID INH 02/17/21 20:00 04/01/21 19:29 Sertraline HCl (Zoloft) 25 mg DAILY PO 02/22/21 09:00 02/24/21 10:00 DC 02/24/21 09:59 Sertraline HCl (Zoloft) 50 mg DAILY PO 02/25/21 09:00 03/01/21 18:30 DC 03/01/21 10:07 Olanzapine (ZyPREXA ZYDIS) 5 mg 1X ONCE PO 02/26/21 12:03 02/26/21 12:09 DC 02/26/21 12:25 Clonazepam (KlonoPIN) 0.5 mg DAILY PO 02/28/21 09:00 03/02/21 07:00 DC 03/01/21 10:07 Bupropion HCl (Wellbutrin Xl) 150 mg DAILY PO 03/02/21 09:00 03/08/21 15:46 DC 03/08/21 08:41 Levetiracetam (Keppra) 250 mg DAILY PO 03/03/21 09:00 04/01/21 08:11 Aripiprazole (Abilify) 5 mg DAILY PO 03/05/21 09:00 04/01/21 08:11 Ondansetron HCl (Zofran Odt) 4 mg PRN Q4HRS PRN PO NAUSEA/VOMITING 03/06/21 19:30 03/06/21 19:46 Potassium Chloride (Klor-Con) 30 meq BID PO 03/07/21 09:00 04/01/21 19:32 Divalproex Sodium (Depakote Er) 1,000 mg 1700 PO 03/08/21 17:00 03/12/21 00:01 DC 03/11/21 17:27 Duloxetine HCl (Cymbalta) 30 mg 0900,1700 PO 03/08/21 17:00 04/01/21 17:09 Sulfasalazine (Azulfidine) 500 mg 0900,1300,1700 PO 03/08/21 09:00 04/01/21 17:09 Bupropion HCl (Wellbutrin Xl) 300 mg DAILY PO 03/09/21 09:00 04/01/21 08:09 Potassium Chloride (Klor-Con) 40 meq 1630,1730 PO 03/08/21 16:30 03/08/21 18:04 DC 03/08/21 16:57 Potassium Chloride (Klor-Con) 40 meq 1700,1800 PO 03/08/21 17:15 03/08/21 18:04 DC 03/08/21 17:56 Divalproex Sodium (Depakote Sprinkles) 500 mg BID PO 03/12/21 09:00 04/01/21 19:29 Clotrimazole (Mycelex-7) 1 debra QHS VG 03/18/21 21:00 03/25/21 20:59 DC 03/24/21 20:20 Dicyclomine HCl (Bentyl) 20 mg TID PO 03/18/21 21:00 04/01/21 19:32 Diphenoxylate HCl/ Atropine (Lomotil) 2 tab BID PO 03/18/21 21:00 04/01/21 19:32 Lidocaine (Lidoderm) 1 patch PRN DAILY PRN TP pain 03/29/21 12:15 I have reviewed the current psychotropics carefully including drug interactions. Risk benefit ratio favors no change other than as noted in my dictated progress note. Diagnosis: Problems: (1) Impulse control disorder, unspecified (2) Mild cognitive impairment (3) Anxiety disorder, unspecified (4) Bipolar 1 disorder, depressed NITHIN STEVENS MD Apr 01, 2021 21:49
--- NOTE | 2021-04-01 21:55 | NUR ---
Patient is in her room on assumption of care, awake in bed. She is flat, disorganized. Irritable about the fact that the doctor woke up when he came to do rounds, but was pleasant in her interactions with this nurse. Compliant with assessments and medications whole, a few at a time on a spoon. She has had no agitated or attention seeking behaviors so far this shift. Denies SI. Denies any pain or discomfort. Patient appears to be sleeping comfortably at present time. Will continue to monitor.
[2021-04-02 05:46] VITALS: BP 109/68
--- NOTE | 2021-04-02 07:26 | PDOC ---
Exam Note: Napoleon Note: This note is a late entry for 03/31/2021 covers elements not covered in my initial note. Subjective: The patient was seen individually in the evening of 03/31/2021 with Dipesh BARR, discussed and reviewed the chart. The patient slept 8 hours previous night. I saw the patient in her room. She has been irritable off and on, tends to withdraw to her room but has not been pulling off her oxygen, still is depressed but improved as I met with her in the evening. Review of Systems: Impaired ambulation in wheelchair. Shortness of breath on O2 supplements. No CV, , eye, ENT system symptoms on review. Mental Status Exam: The patient is oriented to herself and situation. We had lengthy discussion about keeping her oxygen in place and she agreed to do that. Speech has some latency, coherent. Abstraction fair. Computation impaired. Language function intact. Mood and affect depressed, withdrawn. No suicidal ideation. Laboratory Data: Reviewed. Impression: Bipolar disorder, depressed. Anxiety disorder unspecified. Impulse control disorder unspecified. Plan: No change from initial note. Assessment: Vital Signs/I&O: Vital Signs Date Time Temp Pulse Resp B/P (MAP) Pulse Ox O2 Delivery O2 Flow Rate FiO2 04/02/21 05:46 97.5 89 20 109/68 (82) 92 Nasal Cannula 2.0 I & O 04/01/21 04/01/21 04/02/21 15:00 23:00 07:00 Intake Total 480 ml 770 ml Balance 480 ml 770 ml Current Medications: Meds: Current Medications Medications (Trade) Dose Ordered Sig/Mya Route PRN Reason Start Time Stop Time Status Last Admin Dose Admin Acetaminophen (Tylenol) 650 mg PRN Q6HRS PRN PO MILD PAIN / TEMP > 100.3'F 02/16/21 15:45 03/04/21 09:21 DC 02/18/21 06:31 Multi-Ingredient Ointment (Analgesic [place]) 1 debra PRN QID PRN TP MUSCLE PAIN 02/16/21 15:45 03/04/21 09:21 DC Al Hydroxide/Mg Hydroxide (Mylanta Plus Xs) 15 ml PRN AFTMEALHC PRN PO DYSPEPSIA 02/16/21 15:45 03/04/21 22:05 Magnesium Hydroxide (Milk Of Magnesia) 2,400 mg PRN QHS PRN PO 1ST CHOICE CONSTIPATION 02/16/21 15:45 03/04/21 09:21 DC Acetaminophen (Tylenol) 1,000 mg Q6HRS PRN PO pain or fever 02/16/21 17:00 02/16/21 17:35 DC Acetaminophen (Tylenol) 500 mg Q4HRS PRN PO MILD PAIN 1-3 02/16/21 17:00 02/16/21 17:36 DC Bisacodyl (Dulcolax Tab) 5 mg PRN DAILY PRN PO 2ND CHOICE CONSTIPATION 02/16/21 17:00 03/04/21 09:21 DC Vitamin D (Vitamin D3) 50,000 unit WEEKLY PO 02/22/21 09:00 03/04/21 09:21 DC 02/22/21 07:16 Clonazepam (KlonoPIN) 0.5 mg BID PO 02/16/21 21:00 02/27/21 19:54 DC 02/27/21 10:11 Dicyclomine HCl (Bentyl) 20 mg TID PO 02/16/21 21:00 03/04/21 09:21 DC 03/03/21 21:07 Diphenoxylate HCl/ Atropine (Lomotil) 2 tab BID PO 02/16/21 21:00 03/04/21 09:21 DC 03/03/21 21:08 Divalproex Sodium (Depakote Er) 1,000 mg HS PO 02/16/21 21:00 03/07/21 20:15 DC 03/04/21 21:43 Duloxetine HCl (Cymbalta) 30 mg BID PO 02/16/21 21:00 03/07/21 20:15 DC 03/06/21 08:14 Fluticasone Propionate (Flonase) 2 spray DAILY NS 02/17/21 09:00 04/01/21 08:07 Furosemide (Lasix) 20 mg DAILY PO 02/17/21 09:00 03/04/21 09:21 DC 03/03/21 08:32 Gabapentin (Neurontin) 300 mg QID PO 02/16/21 17:00 04/01/21 19:29 Hydroxyurea (Hydrea) 1,000 mg DAILY PO 02/17/21 09:00 04/01/21 08:12 Levetiracetam (Keppra) 250 mg BID PO 02/16/21 21:00 03/02/21 14:48 DC 03/02/21 09:54 Lidocaine (Lidoderm) 1 patch DAILY TP 02/17/21 09:00 02/17/21 09:24 DC Al Hydroxide/Mg Hydroxide (Mylanta Plus Xs) 15 ml PRN AFTMEALHC PRN PO DYSPEPSIA 02/16/21 17:00 02/16/21 17:36 DC Mirabegron (Myrbetriq) 50 mg DAILY PO 02/17/21 09:00 03/04/21 09:21 DC 03/03/21 08:30 Nystatin (Nystop) 1 debra BID TP 02/16/21 21:00 04/01/21 19:29 Pantoprazole Sodium (Protonix) 40 mg DAILYAC PO 02/17/21 07:30 04/01/21 08:07 Potassium Chloride (Klor-Con) 40 meq DAILY PO 02/17/21 09:00 03/04/21 09:21 DC 03/03/21 08:32 Sulfasalazine (Azulfidine) 500 mg TID PO 02/16/21 21:00 03/07/21 20:15 DC 03/06/21 13:05 Trazodone HCl (Desyrel) 50 mg QHS PO 02/16/21 21:00 04/01/21 19:31 Non-Formulary Medication (Albuterol Sulfate (Albuterol Sulfate Conc Neb Soln)) 1 vial PRN Q4HRS PRN NEB SHORTNESS OF BREATH 02/16/21 17:00 02/16/21 17:49 DC Ascorbic Acid (Vitamin C) 1,000 mg DAILY PO 02/17/21 09:00 03/04/21 09:21 DC 03/03/21 08:34 Diltiazem HCl (Cardizem) 60 mg BID PO 02/16/21 21:00 04/01/21 19:30 Lactobacillus Rhamnosus (Culturelle) 1 cap DAILY PO 02/17/21 09:00 03/04/21 09:21 DC 03/03/21 08:32 Amylase/Lipase/ Protease (Zenpep 10,000) 1 cap TIDBFRMEAL PO 02/17/21 07:30 04/01/21 17:09 Non-Formulary Medication (Magnesium Hydroxide (Milk Of Magnesia)) 2,400 mg PRN DAILY PRN PO CONSTIPATION 02/16/21 17:00 02/16/21 17:37 DC Magnesium Oxide (Magnesium Oxide) 400 mg DAILY PO 02/17/21 09:00 03/04/21 09:21 DC 03/03/21 08:31 Non-Formulary Medication (Methyl Salicylate/ Menthol (Analgesic [place])) 1 debra PRN Q6HRS PRN TP MUSCLE PAIN 02/16/21 17:00 02/16/21 17:37 DC Non-Formulary Medication (Umeclidinium [place] (Incruse Ellipta)) 62.5 mcg DAILY IH 02/17/21 09:00 02/16/21 17:49 DC Non-Formulary Medication (Zinc Gluconate ) 50 mg DAILY PO 02/17/21 09:00 02/16/21 17:46 DC Albuterol/ Ipratropium (Duoneb) 3 ml RTQID NEB 02/16/21 20:00 02/17/21 19:52 DC Albuterol Sulfate (Ventolin) 2.5 mg PRN Q4HRS PRN NEB SHORTNESS OF BREATH 02/16/21 18:00 Influenza Virus Vaccine Quadrival (Flulaval Quad [id number] Syringe) 0.5 ml ONCE ONCE VAX IM 02/17/21 09:00 02/17/21 09:01 DC 02/17/21 09:21 Lidocaine (Lidoderm) 1 patch DAILY PRN TP pain 02/17/21 09:30 03/29/21 12:01 DC 03/28/21 08:37 Albuterol/ Ipratropium (Combivent Respimat 20-100 Mcg) 1 puff RTQID INH 02/17/21 20:00 04/01/21 19:29 Sertraline HCl (Zoloft) 25 mg DAILY PO 02/22/21 09:00 02/24/21 10:00 DC 02/24/21 09:59 Sertraline HCl (Zoloft) 50 mg DAILY PO 02/25/21 09:00 03/01/21 18:30 DC 03/01/21 10:07 Olanzapine (ZyPREXA ZYDIS) 5 mg 1X ONCE PO 02/26/21 12:03 02/26/21 12:09 DC 02/26/21 12:25 Clonazepam (KlonoPIN) 0.5 mg DAILY PO 02/28/21 09:00 03/02/21 07:00 DC 03/01/21 10:07 Bupropion HCl (Wellbutrin Xl) 150 mg DAILY PO 03/02/21 09:00 03/08/21 15:46 DC 03/08/21 08:41 Levetiracetam (Keppra) 250 mg DAILY PO 03/03/21 09:00 04/01/21 08:11 Aripiprazole (Abilify) 5 mg DAILY PO 03/05/21 09:00 04/01/21 08:11 Ondansetron HCl (Zofran Odt) 4 mg PRN Q4HRS PRN PO NAUSEA/VOMITING 03/06/21 19:30 03/06/21 19:46 Potassium Chloride (Klor-Con) 30 meq BID PO 03/07/21 09:00 04/01/21 19:32 Divalproex Sodium (Depakote Er) 1,000 mg 1700 PO 03/08/21 17:00 03/12/21 00:01 DC 03/11/21 17:27 Duloxetine HCl (Cymbalta) 30 mg 0900,1700 PO 03/08/21 17:00 04/01/21 17:09 Sulfasalazine (Azulfidine) 500 mg 0900,1300,1700 PO 03/08/21 09:00 04/01/21 17:09 Bupropion HCl (Wellbutrin Xl) 300 mg DAILY PO 03/09/21 09:00 04/01/21 08:09 Potassium Chloride (Klor-Con) 40 meq 1630,1730 PO 03/08/21 16:30 03/08/21 18:04 DC 03/08/21 16:57 Potassium Chloride (Klor-Con) 40 meq 1700,1800 PO 03/08/21 17:15 03/08/21 18:04 DC 03/08/21 17:56 Divalproex Sodium (Depakote Sprinkles) 500 mg BID PO 03/12/21 09:00 04/01/21 19:29 Clotrimazole (Mycelex-7) 1 debra QHS VG 03/18/21 21:00 03/25/21 20:59 DC 03/24/21 20:20 Dicyclomine HCl (Bentyl) 20 mg TID PO 03/18/21 21:00 04/01/21 19:32 Diphenoxylate HCl/ Atropine (Lomotil) 2 tab BID PO 03/18/21 21:00 04/01/21 19:32 Lidocaine (Lidoderm) 1 patch PRN DAILY PRN TP pain 03/29/21 12:15 I have reviewed the current psychotropics carefully including drug interactions. Risk benefit ratio favors no change other than as noted in my dictated progress note. Diagnosis: Problems: (1) Mild cognitive impairment (2) Anxiety disorder, unspecified (3) Impulse control disorder, unspecified (4) Bipolar 1 disorder, depressed NITHIN STEVENS MD Apr 02, 2021 07:26
--- NOTE | 2021-04-02 07:46 | PDOC ---
Exam Note: Napoleon Note: This note is a late entry for 04/01/2021 covers elements not covered in my initial note. Subjective: The patient was seen individually in the evening of 04/01/2021 with Hadley BARR, discussed and reviewed the chart. The patient slept 9-3/4 hours previous night. The patient has been confused, more irritable at times. We are going to check Keppra level. She has been keeping her oxygen in place. I met with her in her room. Review of Systems: Impaired ambulation in wheelchair. Shortness of breath on O2 supplements. No CV, , eye, ENT system symptoms on review. She is somewhat irritable, stated if she is lying in bed she does not want to be disturbed. Mental Status Exam: The patient is oriented to herself and situation. Speech coherent. Abstraction fair. Computation impaired. Language function intact. Mood and affect remains depressed, anxious, labile. Laboratory Data: Reviewed. Impression: Bipolar disorder, depressed. Anxiety disorder unspecified. Impulse control disorder unspecified. Plan: No change from initial note. Assessment: Vital Signs/I&O: Vital Signs Date Time Temp Pulse Resp B/P (MAP) Pulse Ox O2 Delivery O2 Flow Rate FiO2 04/02/21 05:46 97.5 89 20 109/68 (82) 92 Nasal Cannula 2.0 I & O 04/01/21 04/01/21 04/02/21 15:00 23:00 07:00 Intake Total 480 ml 770 ml Balance 480 ml 770 ml Current Medications: Meds: Current Medications Medications (Trade) Dose Ordered Sig/Mya Route PRN Reason Start Time Stop Time Status Last Admin Dose Admin Acetaminophen (Tylenol) 650 mg PRN Q6HRS PRN PO MILD PAIN / TEMP > 100.3'F 02/16/21 15:45 03/04/21 09:21 DC 02/18/21 06:31 Multi-Ingredient Ointment (Analgesic [place]) 1 debra PRN QID PRN TP MUSCLE PAIN 02/16/21 15:45 03/04/21 09:21 DC Al Hydroxide/Mg Hydroxide (Mylanta Plus Xs) 15 ml PRN AFTMEALHC PRN PO DYSPEPSIA 02/16/21 15:45 03/04/21 22:05 Magnesium Hydroxide (Milk Of Magnesia) 2,400 mg PRN QHS PRN PO 1ST CHOICE CONSTIPATION 10/7/21 15:45 03/04/21 09:21 DC Acetaminophen (Tylenol) 1,000 mg Q6HRS PRN PO pain or fever 02/16/21 17:00 02/16/21 17:35 DC Acetaminophen (Tylenol) 500 mg Q4HRS PRN PO MILD PAIN 1-3 02/16/21 17:00 02/16/21 17:36 DC Bisacodyl (Dulcolax Tab) 5 mg PRN DAILY PRN PO 2ND CHOICE CONSTIPATION 02/16/21 17:00 03/04/21 09:21 DC Vitamin D (Vitamin D3) 50,000 unit WEEKLY PO 02/22/21 09:00 03/04/21 09:21 DC 02/22/21 07:16 Clonazepam (KlonoPIN) 0.5 mg BID PO 02/16/21 21:00 02/27/21 19:54 DC 02/27/21 10:11 Dicyclomine HCl (Bentyl) 20 mg TID PO 02/16/21 21:00 03/04/21 09:21 DC 03/03/21 21:07 Diphenoxylate HCl/ Atropine (Lomotil) 2 tab BID PO 02/16/21 21:00 03/04/21 09:21 DC 03/03/21 21:08 Divalproex Sodium (Depakote Er) 1,000 mg HS PO 02/16/21 21:00 03/07/21 20:15 DC 03/04/21 21:43 Duloxetine HCl (Cymbalta) 30 mg BID PO 02/16/21 21:00 03/07/21 20:15 DC 03/06/21 08:14 Fluticasone Propionate (Flonase) 2 spray DAILY NS 02/17/21 09:00 04/01/21 08:07 Furosemide (Lasix) 20 mg DAILY PO 02/17/21 09:00 03/04/21 09:21 DC 03/03/21 08:32 Gabapentin (Neurontin) 300 mg QID PO 02/16/21 17:00 04/01/21 19:29 Hydroxyurea (Hydrea) 1,000 mg DAILY PO 02/17/21 09:00 04/01/21 08:12 Levetiracetam (Keppra) 250 mg BID PO 02/16/21 21:00 03/02/21 14:48 DC 03/02/21 09:54 Lidocaine (Lidoderm) 1 patch DAILY TP 02/17/21 09:00 02/17/21 09:24 DC Al Hydroxide/Mg Hydroxide (Mylanta Plus Xs) 15 ml PRN AFTMEALHC PRN PO DYSPEPSIA 02/16/21 17:00 02/16/21 17:36 DC Mirabegron (Myrbetriq) 50 mg DAILY PO 02/17/21 09:00 03/04/21 09:21 DC 03/03/21 08:30 Nystatin (Nystop) 1 debra BID TP 02/16/21 21:00 04/01/21 19:29 Pantoprazole Sodium (Protonix) 40 mg DAILYAC PO 02/17/21 07:30 04/01/21 08:07 Potassium Chloride (Klor-Con) 40 meq DAILY PO 02/17/21 09:00 03/04/21 09:21 DC 03/03/21 08:32 Sulfasalazine (Azulfidine) 500 mg TID PO 02/16/21 21:00 03/07/21 20:15 DC 03/06/21 13:05 Trazodone HCl (Desyrel) 50 mg QHS PO 02/16/21 21:00 04/01/21 19:31 Non-Formulary Medication (Albuterol Sulfate (Albuterol Sulfate Conc Neb Soln)) 1 vial PRN Q4HRS PRN NEB SHORTNESS OF BREATH 02/16/21 17:00 02/16/21 17:49 DC Ascorbic Acid (Vitamin C) 1,000 mg DAILY PO 02/17/21 09:00 03/04/21 09:21 DC 03/03/21 08:34 Diltiazem HCl (Cardizem) 60 mg BID PO 02/16/21 21:00 04/01/21 19:30 Lactobacillus Rhamnosus (Culturelle) 1 cap DAILY PO 02/17/21 09:00 03/04/21 09:21 DC 03/03/21 08:32 Amylase/Lipase/ Protease (Zenpep 10,000) 1 cap TIDBFRMEAL PO 02/17/21 07:30 04/01/21 17:09 Non-Formulary Medication (Magnesium Hydroxide (Milk Of Magnesia)) 2,400 mg PRN DAILY PRN PO CONSTIPATION 02/16/21 17:00 02/16/21 17:37 DC Magnesium Oxide (Magnesium Oxide) 400 mg DAILY PO 02/17/21 09:00 03/04/21 09:21 DC 03/03/21 08:31 Non-Formulary Medication (Methyl Salicylate/ Menthol (Analgesic [place])) 1 debra PRN Q6HRS PRN TP MUSCLE PAIN 02/16/21 17:00 02/16/21 17:37 DC Non-Formulary Medication (Umeclidinium [place] (Incruse Ellipta)) 62.5 mcg DAILY IH 02/17/21 09:00 02/16/21 17:49 DC Non-Formulary Medication (Zinc Gluconate ) 50 mg DAILY PO 02/17/21 09:00 02/16/21 17:46 DC Albuterol/ Ipratropium (Duoneb) 3 ml RTQID NEB 02/16/21 20:00 02/17/21 19:52 DC Albuterol Sulfate (Ventolin) 2.5 mg PRN Q4HRS PRN NEB SHORTNESS OF BREATH 02/16/21 18:00 Influenza Virus Vaccine Quadrival (Flulaval Quad [id number] Syringe) 0.5 ml ONCE ONCE VAX IM 02/17/21 09:00 02/17/21 09:01 DC 02/17/21 09:21 Lidocaine (Lidoderm) 1 patch DAILY PRN TP pain 02/17/21 09:30 03/29/21 12:01 DC 03/28/21 08:37 Albuterol/ Ipratropium (Combivent Respimat 20-100 Mcg) 1 puff RTQID INH 02/17/21 20:00 04/01/21 19:29 Sertraline HCl (Zoloft) 25 mg DAILY PO 02/22/21 09:00 02/24/21 10:00 DC 02/24/21 09:59 Sertraline HCl (Zoloft) 50 mg DAILY PO 02/25/21 09:00 03/01/21 18:30 DC 03/01/21 10:07 Olanzapine (ZyPREXA ZYDIS) 5 mg 1X ONCE PO 02/26/21 12:03 02/26/21 12:09 DC 02/26/21 12:25 Clonazepam (KlonoPIN) 0.5 mg DAILY PO 02/28/21 09:00 03/02/21 07:00 DC 03/01/21 10:07 Bupropion HCl (Wellbutrin Xl) 150 mg DAILY PO 03/02/21 09:00 03/08/21 15:46 DC 03/08/21 08:41 Levetiracetam (Keppra) 250 mg DAILY PO 03/03/21 09:00 04/01/21 08:11 Aripiprazole (Abilify) 5 mg DAILY PO 03/05/21 09:00 04/01/21 08:11 Ondansetron HCl (Zofran Odt) 4 mg PRN Q4HRS PRN PO NAUSEA/VOMITING 03/06/21 19:30 03/06/21 19:46 Potassium Chloride (Klor-Con) 30 meq BID PO 03/07/21 09:00 04/01/21 19:32 Divalproex Sodium (Depakote Er) 1,000 mg 1700 PO 03/08/21 17:00 03/12/21 00:01 DC 03/11/21 17:27 Duloxetine HCl (Cymbalta) 30 mg 0900,1700 PO 03/08/21 17:00 04/01/21 17:09 Sulfasalazine (Azulfidine) 500 mg 0900,1300,1700 PO 03/08/21 09:00 04/01/21 17:09 Bupropion HCl (Wellbutrin Xl) 300 mg DAILY PO 03/09/21 09:00 04/01/21 08:09 Potassium Chloride (Klor-Con) 40 meq 1630,1730 PO 03/08/21 16:30 03/08/21 18:04 DC 03/08/21 16:57 Potassium Chloride (Klor-Con) 40 meq 1700,1800 PO 03/08/21 17:15 03/08/21 18:04 DC 03/08/21 17:56 Divalproex Sodium (Depakote Sprinkles) 500 mg BID PO 03/12/21 09:00 04/01/21 19:29 Clotrimazole (Mycelex-7) 1 debra QHS VG 03/18/21 21:00 11/13/21 20:59 DC 03/24/21 20:20 Dicyclomine HCl (Bentyl) 20 mg TID PO 03/18/21 21:00 04/01/21 19:32 Diphenoxylate HCl/ Atropine (Lomotil) 2 tab BID PO 03/18/21 21:00 04/01/21 19:32 Lidocaine (Lidoderm) 1 patch PRN DAILY PRN TP pain 03/29/21 12:15 I have reviewed the current psychotropics carefully including drug interactions. Risk benefit ratio favors no change other than as noted in my dictated progress note. Diagnosis: Problems: (1) Mild cognitive impairment (2) Anxiety disorder, unspecified (3) Impulse control disorder, unspecified (4) Bipolar 1 disorder, depressed NITHIN STEVENS MD Apr 02, 2021 07:46
[2021-04-02] MEDS: IPRATROPIUM/ALBUTEROL 20/100mcg/INH INHALER. INH SCH ×4 (08:00→19:41)
[2021-04-02] MEDS: buPROPion XL 300 MG TAB.ER.24H. PO SCH (08:26)
[2021-04-02] MEDS: PANTOPRAZOLE 40 MG TABLET. PO SCH (08:26)
[2021-04-02] MEDS: DULoxetine HCL 30 MG CAPSULE.DR PO SCH ×2 (08:27→16:20)
[2021-04-02] MEDS: GABAPENTIN 300 MG CAPSULE. PO SCH ×4 (08:27→19:42)
[2021-04-02] MEDS: DICYCLOMINE HCL 20 MG TABLET PO SCH ×3 (08:27→19:41)
[2021-04-02] MEDS: DIVALPROEX 125 MG CAP.SPRINK PO SCH ×2 (08:27→19:42)
[2021-04-02] MEDS: ARIPiprazole 5 MG TABLET PO SCH (08:27)
[2021-04-02] MEDS: levETIRAcetam 250 MG TABLET PO SCH (08:27)
[2021-04-02] MEDS: dilTIAZem HCL 30 MG TABLET PO SCH ×2 (08:28→19:42)
[2021-04-02] MEDS: LIPASE/PROTEAS/AMYLAS 10/32/42 CAPSULE.DR. PO SCH ×3 (08:28→16:20)
[2021-04-02] MEDS: DIPHENOXYLATE/ATROPINE TABLET. PO SCH ×2 (08:28→19:42)
[2021-04-02] MEDS: POTASSIUM CHLORIDE 10 MEQ TABLET.ER. PO SCH ×2 (08:28→19:42)
[2021-04-02] MEDS: FLUTICASONE 50MCG/NASAL SPRAY 16GM BOTTLE. NS SCH (08:29)
[2021-04-02] MEDS: sulfaSALAzine 500 MG TABLET PO SCH ×3 (08:29→16:20)
[2021-04-02] MEDS: HYDROXYUREA 500 MG CAPSULE PO SCH (08:29)
[2021-04-02] MEDS: NYSTATIN TOPICAL POWDER 15GM BOTTLE. TP SCH ×2 (08:30→19:41)
--- NOTE | 2021-04-02 09:06 | NUR ---
Pt A&O to self only, appears confused and disorganized however she is appropriate on the unit so far this shift. Absent of disruptive behaviors on the unit and absent of self harm behaviors as well. She is compliant with medications whole and fed to her on a spoon and is receptive to encouragement by staff. Pt is flat in affect and quiet, but responds appropriately during assessment. Plan of care continues, will pass to next shift.
[2021-04-02] MEDS: ONDANSETRON ODT 4 MG TAB.RAPDIS PO PRN (09:23)
--- NOTE | 2021-04-02 09:23 | NUR ---
Pt in bed after breakfast, c/o nausea. No episodes of emesis thus far. PRN Zofran 4 mg PO administered, pt receptive to education provided. Reassessment pending.
[2021-04-02 14:54] VITALS: BP 99/60
[2021-04-02] MEDS: traZODone 50 MG TABLET. PO SCH (19:41)
--- NOTE | 2021-04-02 20:46 | PDOC ---
Exam Note: Napoleon Note: Please also refer to the separate dictated note~for this date of service dictated separately.~Patient seen individually. Discussed the patient with Nursing staff reviewed the chart.~Reviewed interim history and current functioning. Reviewed vital signs,~Labs/ Radiology~and current medications noted below. Continue current treatment with the changes noted in the dictated addendum note Assessment: Vital Signs/I&O: Vital Signs Date Time Temp Pulse Resp B/P (MAP) Pulse Ox O2 Delivery O2 Flow Rate FiO2 04/02/21 19:42 98 99/60 04/02/21 14:54 98.2 20 97 04/02/21 05:46 Nasal Cannula 2.0 I & O 04/01/21 04/01/21 04/02/21 15:00 23:00 07:00 Intake Total 480 ml 770 ml Balance 480 ml 770 ml Current Medications: Meds: Current Medications Medications (Trade) Dose Ordered Sig/Mya Route PRN Reason Start Time Stop Time Status Last Admin Dose Admin Acetaminophen (Tylenol) 650 mg PRN Q6HRS PRN PO MILD PAIN / TEMP > 100.3'F 02/16/21 15:45 03/04/21 09:21 DC 02/18/21 06:31 Multi-Ingredient Ointment (Analgesic [place]) 1 debra PRN QID PRN TP MUSCLE PAIN 02/16/21 15:45 03/04/21 09:21 DC Al Hydroxide/Mg Hydroxide (Mylanta Plus Xs) 15 ml PRN AFTMEALHC PRN PO DYSPEPSIA 02/16/21 15:45 03/04/21 22:05 Magnesium Hydroxide (Milk Of Magnesia) 2,400 mg PRN QHS PRN PO 1ST CHOICE CONSTIPATION 02/16/21 15:45 03/04/21 09:21 DC Acetaminophen (Tylenol) 1,000 mg Q6HRS PRN PO pain or fever 02/16/21 17:00 02/16/21 17:35 DC Acetaminophen (Tylenol) 500 mg Q4HRS PRN PO MILD PAIN 1-3 02/16/21 17:00 02/16/21 17:36 DC Bisacodyl (Dulcolax Tab) 5 mg PRN DAILY PRN PO 2ND CHOICE CONSTIPATION 02/16/21 17:00 03/04/21 09:21 DC Vitamin D (Vitamin D3) 50,000 unit WEEKLY PO 02/22/21 09:00 03/04/21 09:21 DC 02/22/21 07:16 Clonazepam (KlonoPIN) 0.5 mg BID PO 02/16/21 21:00 02/27/21 19:54 DC 02/27/21 10:11 Dicyclomine HCl (Bentyl) 20 mg TID PO 02/16/21 21:00 03/04/21 09:21 DC 03/03/21 21:07 Diphenoxylate HCl/ Atropine (Lomotil) 2 tab BID PO 02/16/21 21:00 03/04/21 09:21 DC 03/03/21 21:08 Divalproex Sodium (Depakote Er) 1,000 mg HS PO 02/16/21 21:00 03/07/21 20:15 DC 03/04/21 21:43 Duloxetine HCl (Cymbalta) 30 mg BID PO 02/16/21 21:00 03/07/21 20:15 DC 03/06/21 08:14 Fluticasone Propionate (Flonase) 2 spray DAILY NS 02/17/21 09:00 04/02/21 08:29 Furosemide (Lasix) 20 mg DAILY PO 02/17/21 09:00 03/04/21 09:21 DC 03/03/21 08:32 Gabapentin (Neurontin) 300 mg QID PO 02/16/21 17:00 04/02/21 19:42 Hydroxyurea (Hydrea) 1,000 mg DAILY PO 02/17/21 09:00 04/02/21 08:29 Levetiracetam (Keppra) 250 mg BID PO 02/16/21 21:00 03/02/21 14:48 DC 03/02/21 09:54 Lidocaine (Lidoderm) 1 patch DAILY TP 02/17/21 09:00 02/17/21 09:24 DC Al Hydroxide/Mg Hydroxide (Mylanta Plus Xs) 15 ml PRN AFTMEALHC PRN PO DYSPEPSIA 02/16/21 17:00 02/16/21 17:36 DC Mirabegron (Myrbetriq) 50 mg DAILY PO 02/17/21 09:00 03/04/21 09:21 DC 03/03/21 08:30 Nystatin (Nystop) 1 debra BID TP 02/16/21 21:00 04/02/21 19:41 Pantoprazole Sodium (Protonix) 40 mg DAILYAC PO 02/17/21 07:30 04/02/21 08:26 Potassium Chloride (Klor-Con) 40 meq DAILY PO 02/17/21 09:00 03/04/21 09:21 DC 03/03/21 08:32 Sulfasalazine (Azulfidine) 500 mg TID PO 02/16/21 21:00 03/07/21 20:15 DC 03/06/21 13:05 Trazodone HCl (Desyrel) 50 mg QHS PO 02/16/21 21:00 04/02/21 19:41 Non-Formulary Medication (Albuterol Sulfate (Albuterol Sulfate Conc Neb Soln)) 1 vial PRN Q4HRS PRN NEB SHORTNESS OF BREATH 02/16/21 17:00 02/16/21 17:49 DC Ascorbic Acid (Vitamin C) 1,000 mg DAILY PO 02/17/21 09:00 03/04/21 09:21 DC 03/03/21 08:34 Diltiazem HCl (Cardizem) 60 mg BID PO 02/16/21 21:00 04/02/21 19:42 Lactobacillus Rhamnosus (Culturelle) 1 cap DAILY PO 02/17/21 09:00 03/04/21 09:21 DC 03/03/21 08:32 Amylase/Lipase/ Protease (Zenpep 10,000) 1 cap TIDBFRMEAL PO 02/17/21 07:30 04/02/21 16:20 Non-Formulary Medication (Magnesium Hydroxide (Milk Of Magnesia)) 2,400 mg PRN DAILY PRN PO CONSTIPATION 02/16/21 17:00 02/16/21 17:37 DC Magnesium Oxide (Magnesium Oxide) 400 mg DAILY PO 02/17/21 09:00 03/04/21 09:21 DC 03/03/21 08:31 Non-Formulary Medication (Methyl Salicylate/ Menthol (Analgesic [place])) 1 debra PRN Q6HRS PRN TP MUSCLE PAIN 02/16/21 17:00 02/16/21 17:37 DC Non-Formulary Medication (Umeclidinium [place] (Incruse Ellipta)) 62.5 mcg DAILY IH 02/17/21 09:00 02/16/21 17:49 DC Non-Formulary Medication (Zinc Gluconate ) 50 mg DAILY PO 02/17/21 09:00 02/16/21 17:46 DC Albuterol/ Ipratropium (Duoneb) 3 ml RTQID NEB 02/16/21 20:00 02/17/21 19:52 DC Albuterol Sulfate (Ventolin) 2.5 mg PRN Q4HRS PRN NEB SHORTNESS OF BREATH 02/16/21 18:00 Influenza Virus Vaccine Quadrival (Flulaval Quad [id number] Syringe) 0.5 ml ONCE ONCE VAX IM 02/17/21 09:00 02/17/21 09:01 DC 02/17/21 09:21 Lidocaine (Lidoderm) 1 patch DAILY PRN TP pain 02/17/21 09:30 03/29/21 12:01 DC 03/28/21 08:37 Albuterol/ Ipratropium (Combivent Respimat 20-100 Mcg) 1 puff RTQID INH 02/17/21 20:00 04/02/21 19:41 Sertraline HCl (Zoloft) 25 mg DAILY PO 02/22/21 09:00 02/24/21 10:00 DC 02/24/21 09:59 Sertraline HCl (Zoloft) 50 mg DAILY PO 02/25/21 09:00 03/01/21 18:30 DC 03/01/21 10:07 Olanzapine (ZyPREXA ZYDIS) 5 mg 1X ONCE PO 02/26/21 12:03 02/26/21 12:09 DC 02/26/21 12:25 Clonazepam (KlonoPIN) 0.5 mg DAILY PO 02/28/21 09:00 03/02/21 07:00 DC 03/01/21 10:07 Bupropion HCl (Wellbutrin Xl) 150 mg DAILY PO 03/02/21 09:00 03/08/21 15:46 DC 03/08/21 08:41 Levetiracetam (Keppra) 250 mg DAILY PO 03/03/21 09:00 04/02/21 08:27 Aripiprazole (Abilify) 5 mg DAILY PO 03/05/21 09:00 04/02/21 08:27 Ondansetron HCl (Zofran Odt) 4 mg PRN Q4HRS PRN PO NAUSEA/VOMITING 03/06/21 19:30 04/02/21 09:23 Potassium Chloride (Klor-Con) 30 meq BID PO 03/07/21 09:00 04/02/21 19:42 Divalproex Sodium (Depakote Er) 1,000 mg 1700 PO 03/08/21 17:00 03/12/21 00:01 DC 03/11/21 17:27 Duloxetine HCl (Cymbalta) 30 mg 0900,1700 PO 03/08/21 17:00 04/02/21 16:20 Sulfasalazine (Azulfidine) 500 mg 0900,1300,1700 PO 03/08/21 09:00 04/02/21 16:20 Bupropion HCl (Wellbutrin Xl) 300 mg DAILY PO 03/09/21 09:00 04/02/21 08:26 Potassium Chloride (Klor-Con) 40 meq 1630,1730 PO 03/08/21 16:30 03/08/21 18:04 DC 03/08/21 16:57 Potassium Chloride (Klor-Con) 40 meq 1700,1800 PO 03/08/21 17:15 03/08/21 18:04 DC 03/08/21 17:56 Divalproex Sodium (Depakote Sprinkles) 500 mg BID PO 03/12/21 09:00 04/02/21 19:42 Clotrimazole (Mycelex-7) 1 debra QHS VG 03/18/21 21:00 03/25/21 20:59 DC 03/24/21 20:20 Dicyclomine HCl (Bentyl) 20 mg TID PO 03/18/21 21:00 04/02/21 19:41 Diphenoxylate HCl/ Atropine (Lomotil) 2 tab BID PO 03/18/21 21:00 04/02/21 19:42 Lidocaine (Lidoderm) 1 patch PRN DAILY PRN TP pain 03/29/21 12:15 I have reviewed the current psychotropics carefully including drug interactions. Risk benefit ratio favors no change other than as noted in my dictated progress note. Diagnosis: Problems: (1) Impulse control disorder, unspecified (2) Bipolar 1 disorder, depressed (3) Mild cognitive impairment (4) Anxiety disorder, unspecified NITHIN STEVENS MD Apr 02, 2021 20:46
--- NOTE | 2021-04-02 22:00 | NUR ---
Patient is in her room on assumption of care, awake in bed. She is flat, disorganized. Pleasant in her interactions with this nurse. Compliant with assessments and medications whole, a few at a time on a spoon. She has had no agitated or attention seeking behaviors so far this shift. Denies SI. Denies any pain or discomfort. Patient appears to be sleeping comfortably at present time. Will continue to monitor.
[2021-04-03 05:54] VITALS: BP 113/62
--- NOTE | 2021-04-03 06:32 | PDOC ---
Exam Note: Napoleon Note: This note is a late entry for 04/02/2021 covers elements not covered in my initial note. Subjective: The patient was seen individually in the evening of 04/02/2021 with Dipesh BARR, discussed and reviewed the chart. The patient slept 9-3/4 hours previous night. I met with her in her room. She was lying in bed, oxygen in place. She states she is doing reasonably well. Keppra blood level is awaited. She has been hearing one of the other demented patients yelling out repeatedly and feels there are children on the unit. Review of Systems: Impaired ambulation in wheelchair. Shortness of breath on O2 supplements. No CV, , eye, ENT system symptoms on review. Mental Status Exam: The patient is oriented to herself and situation. She was more pleasant, interactive as I met with her today than yesterday. Speech coherent. Abstraction fair. Computation impaired. Language function intact. Mood and affect remains anxious, labile. Laboratory Data: Reviewed. Impression: Bipolar disorder, depressed. Anxiety disorder unspecified. Impulse control disorder unspecified. Plan: No change from initial note. Assessment: Vital Signs/I&O: Vital Signs Date Time Temp Pulse Resp B/P (MAP) Pulse Ox O2 Delivery O2 Flow Rate FiO2 04/03/21 05:54 96.8 96 20 113/62 (79) 93 2.0 04/02/21 05:46 Nasal Cannula I & O 04/02/21 04/02/21 04/03/21 15:00 23:00 07:00 Intake Total 600 ml 600 ml Balance 600 ml 600 ml Current Medications: Meds: Current Medications Medications (Trade) Dose Ordered Sig/Mya Route PRN Reason Start Time Stop Time Status Last Admin Dose Admin Acetaminophen (Tylenol) 650 mg PRN Q6HRS PRN PO MILD PAIN / TEMP > 100.3'F 02/16/21 15:45 03/04/21 09:21 DC 02/18/21 06:31 Multi-Ingredient Ointment (Analgesic [place]) 1 debra PRN QID PRN TP MUSCLE PAIN 02/16/21 15:45 03/04/21 09:21 DC Al Hydroxide/Mg Hydroxide (Mylanta Plus Xs) 15 ml PRN AFTMEALHC PRN PO DYSPEPSIA 02/16/21 15:45 03/04/21 22:05 Magnesium Hydroxide (Milk Of Magnesia) 2,400 mg PRN QHS PRN PO 1ST CHOICE CONSTIPATION 02/16/21 15:45 03/04/21 09:21 DC Acetaminophen (Tylenol) 1,000 mg Q6HRS PRN PO pain or fever 02/16/21 17:00 02/16/21 17:35 DC Acetaminophen (Tylenol) 500 mg Q4HRS PRN PO MILD PAIN 1-3 02/16/21 17:00 02/16/21 17:36 DC Bisacodyl (Dulcolax Tab) 5 mg PRN DAILY PRN PO 2ND CHOICE CONSTIPATION 02/16/21 17:00 03/04/21 09:21 DC Vitamin D (Vitamin D3) 50,000 unit WEEKLY PO 02/22/21 09:00 03/04/21 09:21 DC 02/22/21 07:16 Clonazepam (KlonoPIN) 0.5 mg BID PO 02/16/21 21:00 02/27/21 19:54 DC 02/27/21 10:11 Dicyclomine HCl (Bentyl) 20 mg TID PO 02/16/21 21:00 03/04/21 09:21 DC 03/03/21 21:07 Diphenoxylate HCl/ Atropine (Lomotil) 2 tab BID PO 02/16/21 21:00 03/04/21 09:21 DC 03/03/21 21:08 Divalproex Sodium (Depakote Er) 1,000 mg HS PO 02/16/21 21:00 03/07/21 20:15 DC 03/04/21 21:43 Duloxetine HCl (Cymbalta) 30 mg BID PO 02/16/21 21:00 03/07/21 20:15 DC 03/06/21 08:14 Fluticasone Propionate (Flonase) 2 spray DAILY NS 02/17/21 09:00 04/02/21 08:29 Furosemide (Lasix) 20 mg DAILY PO 02/17/21 09:00 03/04/21 09:21 DC 03/03/21 08:32 Gabapentin (Neurontin) 300 mg QID PO 02/16/21 17:00 04/02/21 19:42 Hydroxyurea (Hydrea) 1,000 mg DAILY PO 02/17/21 09:00 04/02/21 08:29 Levetiracetam (Keppra) 250 mg BID PO 02/16/21 21:00 03/02/21 14:48 DC 03/02/21 09:54 Lidocaine (Lidoderm) 1 patch DAILY TP 02/17/21 09:00 02/17/21 09:24 DC Al Hydroxide/Mg Hydroxide (Mylanta Plus Xs) 15 ml PRN AFTMEALHC PRN PO DYSPEPSIA 02/16/21 17:00 02/16/21 17:36 DC Mirabegron (Myrbetriq) 50 mg DAILY PO 02/17/21 09:00 03/04/21 09:21 DC 03/03/21 08:30 Nystatin (Nystop) 1 debra BID TP 02/16/21 21:00 04/02/21 19:41 Pantoprazole Sodium (Protonix) 40 mg DAILYAC PO 02/17/21 07:30 04/02/21 08:26 Potassium Chloride (Klor-Con) 40 meq DAILY PO 02/17/21 09:00 03/04/21 09:21 DC 03/03/21 08:32 Sulfasalazine (Azulfidine) 500 mg TID PO 02/16/21 21:00 03/07/21 20:15 DC 03/06/21 13:05 Trazodone HCl (Desyrel) 50 mg QHS PO 02/16/21 21:00 04/02/21 19:41 Non-Formulary Medication (Albuterol Sulfate (Albuterol Sulfate Conc Neb Soln)) 1 vial PRN Q4HRS PRN NEB SHORTNESS OF BREATH 02/16/21 17:00 02/16/21 17:49 DC Ascorbic Acid (Vitamin C) 1,000 mg DAILY PO 02/17/21 09:00 03/04/21 09:21 DC 03/03/21 08:34 Diltiazem HCl (Cardizem) 60 mg BID PO 02/16/21 21:00 04/02/21 19:42 Lactobacillus Rhamnosus (Culturelle) 1 cap DAILY PO 02/17/21 09:00 03/04/21 09:21 DC 03/03/21 08:32 Amylase/Lipase/ Protease (Zenpep 10,000) 1 cap TIDBFRMEAL PO 02/17/21 07:30 04/02/21 16:20 Non-Formulary Medication (Magnesium Hydroxide (Milk Of Magnesia)) 2,400 mg PRN DAILY PRN PO CONSTIPATION 02/16/21 17:00 02/16/21 17:37 DC Magnesium Oxide (Magnesium Oxide) 400 mg DAILY PO 02/17/21 09:00 03/04/21 09:21 DC 03/03/21 08:31 Non-Formulary Medication (Methyl Salicylate/ Menthol (Analgesic [place])) 1 debra PRN Q6HRS PRN TP MUSCLE PAIN 02/16/21 17:00 02/16/21 17:37 DC Non-Formulary Medication (Umeclidinium [place] (Incruse Ellipta)) 62.5 mcg DAILY IH 02/17/21 09:00 02/16/21 17:49 DC Non-Formulary Medication (Zinc Gluconate ) 50 mg DAILY PO 02/17/21 09:00 02/16/21 17:46 DC Albuterol/ Ipratropium (Duoneb) 3 ml RTQID NEB 02/16/21 20:00 02/17/21 19:52 DC Albuterol Sulfate (Ventolin) 2.5 mg PRN Q4HRS PRN NEB SHORTNESS OF BREATH 02/16/21 18:00 Influenza Virus Vaccine Quadrival (Flulaval Quad [id number] Syringe) 0.5 ml ONCE ONCE VAX IM 02/17/21 09:00 02/17/21 09:01 DC 02/17/21 09:21 Lidocaine (Lidoderm) 1 patch DAILY PRN TP pain 02/17/21 09:30 03/29/21 12:01 DC 03/28/21 08:37 Albuterol/ Ipratropium (Combivent Respimat 20-100 Mcg) 1 puff RTQID INH 02/17/21 20:00 04/02/21 19:41 Sertraline HCl (Zoloft) 25 mg DAILY PO 02/22/21 09:00 02/24/21 10:00 DC 02/24/21 09:59 Sertraline HCl (Zoloft) 50 mg DAILY PO 02/25/21 09:00 03/01/21 18:30 DC 03/01/21 10:07 Olanzapine (ZyPREXA ZYDIS) 5 mg 1X ONCE PO 02/26/21 12:03 02/26/21 12:09 DC 02/26/21 12:25 Clonazepam (KlonoPIN) 0.5 mg DAILY PO 02/28/21 09:00 03/02/21 07:00 DC 03/01/21 10:07 Bupropion HCl (Wellbutrin Xl) 150 mg DAILY PO 03/02/21 09:00 03/08/21 15:46 DC 03/08/21 08:41 Levetiracetam (Keppra) 250 mg DAILY PO 03/03/21 09:00 04/02/21 08:27 Aripiprazole (Abilify) 5 mg DAILY PO 03/05/21 09:00 04/02/21 08:27 Ondansetron HCl (Zofran Odt) 4 mg PRN Q4HRS PRN PO NAUSEA/VOMITING 03/06/21 19:30 04/02/21 09:23 Potassium Chloride (Klor-Con) 30 meq BID PO 03/07/21 09:00 04/02/21 19:42 Divalproex Sodium (Depakote Er) 1,000 mg 1700 PO 03/08/21 17:00 03/12/21 00:01 DC 03/11/21 17:27 Duloxetine HCl (Cymbalta) 30 mg 0900,1700 PO 03/08/21 17:00 04/02/21 16:20 Sulfasalazine (Azulfidine) 500 mg 0900,1300,1700 PO 03/08/21 09:00 04/02/21 16:20 Bupropion HCl (Wellbutrin Xl) 300 mg DAILY PO 03/09/21 09:00 04/02/21 08:26 Potassium Chloride (Klor-Con) 40 meq 1630,1730 PO 03/08/21 16:30 03/08/21 18:04 DC 03/08/21 16:57 Potassium Chloride (Klor-Con) 40 meq 1700,1800 PO 03/08/21 17:15 03/08/21 18:04 DC 03/08/21 17:56 Divalproex Sodium (Depakote Sprinkles) 500 mg BID PO 03/12/21 09:00 04/02/21 19:42 Clotrimazole (Mycelex-7) 1 debra QHS VG 03/18/21 21:00 03/25/21 20:59 DC 03/24/21 20:20 Dicyclomine HCl (Bentyl) 20 mg TID PO 03/18/21 21:00 04/02/21 19:41 Diphenoxylate HCl/ Atropine (Lomotil) 2 tab BID PO 03/18/21 21:00 04/02/21 19:42 Lidocaine (Lidoderm) 1 patch PRN DAILY PRN TP pain 03/29/21 12:15 I have reviewed the current psychotropics carefully including drug interactions. Risk benefit ratio favors no change other than as noted in my dictated progress note. Diagnosis: Problems: (1) Impulse control disorder, unspecified (2) Mild cognitive impairment (3) Anxiety disorder, unspecified (4) Bipolar 1 disorder, depressed NITHIN STEVENS MD Apr 03, 2021 06:32
[2021-04-03] MEDS: FLUTICASONE 50MCG/NASAL SPRAY 16GM BOTTLE. NS SCH (08:32)
[2021-04-03] MEDS: LIPASE/PROTEAS/AMYLAS 10/32/42 CAPSULE.DR. PO SCH ×3 (08:35→17:19)
[2021-04-03] MEDS: PANTOPRAZOLE 40 MG TABLET. PO SCH (08:35)
[2021-04-03] MEDS: POTASSIUM CHLORIDE 10 MEQ TABLET.ER. PO SCH ×2 (08:36→19:40)
[2021-04-03] MEDS: buPROPion XL 300 MG TAB.ER.24H. PO SCH (08:36)
[2021-04-03] MEDS: DICYCLOMINE HCL 20 MG TABLET PO SCH ×4 (08:36→19:39)
[2021-04-03] MEDS: DULoxetine HCL 30 MG CAPSULE.DR PO SCH ×2 (08:36→17:20)
[2021-04-03] MEDS: GABAPENTIN 300 MG CAPSULE. PO SCH ×4 (08:36→19:40)
[2021-04-03] MEDS: DIVALPROEX 125 MG CAP.SPRINK PO SCH ×2 (08:37→19:39)
[2021-04-03] MEDS: dilTIAZem HCL 30 MG TABLET PO SCH ×2 (08:37→19:39)
[2021-04-03] MEDS: ARIPiprazole 5 MG TABLET PO SCH (08:37)
[2021-04-03] MEDS: DIPHENOXYLATE/ATROPINE TABLET. PO SCH ×2 (08:37→19:40)
[2021-04-03] MEDS: levETIRAcetam 250 MG TABLET PO SCH (08:37)
[2021-04-03] MEDS: IPRATROPIUM/ALBUTEROL 20/100mcg/INH INHALER. INH SCH ×4 (08:38→19:38)
[2021-04-03] MEDS: sulfaSALAzine 500 MG TABLET PO SCH ×3 (08:38→17:20)
[2021-04-03] MEDS: NYSTATIN TOPICAL POWDER 15GM BOTTLE. TP SCH ×2 (08:40→19:40)
[2021-04-03] MEDS: HYDROXYUREA 500 MG CAPSULE PO SCH (08:40)
--- NOTE | 2021-04-03 11:08 | NUR ---
Nursing note: Pt in dining room at time of AM med pass and assessment. She is pleasant, compliant with meds whole and cooperative with assessment. She denies having any pain at time of assessment. She is currently in the day room for group. Will continue to monitor.
[2021-04-03 15:38] VITALS: BP 99/65
[2021-04-03] MEDS: traZODone 50 MG TABLET. PO SCH (19:40)
--- NOTE | 2021-04-03 21:03 | PDOC ---
Exam Note: [place] Note: Please also refer to the separate dictated note~for this date of service dictated separately.~Patient seen individually. Discussed the patient with Nursing staff reviewed the chart.~Reviewed interim history and current functioning. Reviewed vital signs,~Labs/ Radiology~and current medications noted below. Continue current treatment with the changes noted in the dictated addendum note Assessment: Vital Signs/I&O: Vital Signs Date Time Temp Pulse Resp B/P (MAP) Pulse Ox O2 Delivery O2 Flow Rate FiO2 04/03/21 19:39 90 99/65 04/03/21 15:38 98.0 18 95 04/03/21 05:54 2.0 04/02/21 05:46 Nasal Cannula I & O 04/02/21 04/02/21 04/03/21 15:00 23:00 07:00 Intake Total 600 ml 600 ml Balance 600 ml 600 ml Current Medications: Meds: Current Medications Medications (Trade) Dose Ordered Sig/Mya Route PRN Reason Start Time Stop Time Status Last Admin Dose Admin Acetaminophen (Tylenol) 650 mg PRN Q6HRS PRN PO MILD PAIN / TEMP > 100.3'F 02/16/21 15:45 03/04/21 09:21 DC 02/18/21 06:31 Multi-Ingredient Ointment (Analgesic [place]) 1 debra PRN QID PRN TP MUSCLE PAIN 02/16/21 15:45 03/04/21 09:21 DC Al Hydroxide/Mg Hydroxide (Mylanta Plus Xs) 15 ml PRN AFTMEALHC PRN PO DYSPEPSIA 02/16/21 15:45 03/04/21 22:05 Magnesium Hydroxide (Milk Of Magnesia) 2,400 mg PRN QHS PRN PO 1ST CHOICE CONSTIPATION 02/16/21 15:45 03/04/21 09:21 DC Acetaminophen (Tylenol) 1,000 mg Q6HRS PRN PO pain or fever 02/16/21 17:00 02/16/21 17:35 DC Acetaminophen (Tylenol) 500 mg Q4HRS PRN PO MILD PAIN 1-3 02/16/21 17:00 02/16/21 17:36 DC Bisacodyl (Dulcolax Tab) 5 mg PRN DAILY PRN PO 2ND CHOICE CONSTIPATION 02/16/21 17:00 03/04/21 09:21 DC Vitamin D (Vitamin D3) 50,000 unit WEEKLY PO 02/22/21 09:00 03/04/21 09:21 DC 02/22/21 07:16 Clonazepam (KlonoPIN) 0.5 mg BID PO 02/16/21 21:00 02/27/21 19:54 DC 02/27/21 10:11 Dicyclomine HCl (Bentyl) 20 mg TID PO 02/16/21 21:00 03/04/21 09:21 DC 03/03/21 21:07 Diphenoxylate HCl/ Atropine (Lomotil) 2 tab BID PO 02/16/21 21:00 03/04/21 09:21 DC 03/03/21 21:08 Divalproex Sodium (Depakote Er) 1,000 mg HS PO 02/16/21 21:00 03/07/21 20:15 DC 03/04/21 21:43 Duloxetine HCl (Cymbalta) 30 mg BID PO 02/16/21 21:00 03/07/21 20:15 DC 03/06/21 08:14 Fluticasone Propionate (Flonase) 2 spray DAILY NS 02/17/21 09:00 04/03/21 08:32 Furosemide (Lasix) 20 mg DAILY PO 02/17/21 09:00 03/04/21 09:21 DC 03/03/21 08:32 Gabapentin (Neurontin) 300 mg QID PO 02/16/21 17:00 04/03/21 19:40 Hydroxyurea (Hydrea) 1,000 mg DAILY PO 02/17/21 09:00 04/03/21 08:40 Levetiracetam (Keppra) 250 mg BID PO 02/16/21 21:00 03/02/21 14:48 DC 03/02/21 09:54 Lidocaine (Lidoderm) 1 patch DAILY TP 02/17/21 09:00 02/17/21 09:24 DC Al Hydroxide/Mg Hydroxide (Mylanta Plus Xs) 15 ml PRN AFTMEALHC PRN PO DYSPEPSIA 02/16/21 17:00 02/16/21 17:36 DC Mirabegron (Myrbetriq) 50 mg DAILY PO 02/17/21 09:00 03/04/21 09:21 DC 03/03/21 08:30 Nystatin (Nystop) 1 debra BID TP 02/16/21 21:00 04/03/21 08:40 Pantoprazole Sodium (Protonix) 40 mg DAILYAC PO 02/17/21 07:30 04/03/21 08:35 Potassium Chloride (Klor-Con) 40 meq DAILY PO 02/17/21 09:00 03/04/21 09:21 DC 03/03/21 08:32 Sulfasalazine (Azulfidine) 500 mg TID PO 02/16/21 21:00 03/07/21 20:15 DC 03/06/21 13:05 Trazodone HCl (Desyrel) 50 mg QHS PO 02/16/21 21:00 04/03/21 19:40 Non-Formulary Medication (Albuterol Sulfate (Albuterol Sulfate Conc Neb Soln)) 1 vial PRN Q4HRS PRN NEB SHORTNESS OF BREATH 02/16/21 17:00 02/16/21 17:49 DC Ascorbic Acid (Vitamin C) 1,000 mg DAILY PO 02/17/21 09:00 03/04/21 09:21 DC 03/03/21 08:34 Diltiazem HCl (Cardizem) 60 mg BID PO 02/16/21 21:00 04/03/21 08:37 Lactobacillus Rhamnosus (Culturelle) 1 cap DAILY PO 02/17/21 09:00 03/04/21 09:21 DC 03/03/21 08:32 Amylase/Lipase/ Protease (Zenpep 10,000) 1 cap TIDBFRMEAL PO 02/17/21 07:30 04/03/21 17:19 Non-Formulary Medication (Magnesium Hydroxide (Milk Of Magnesia)) 2,400 mg PRN DAILY PRN PO CONSTIPATION 02/16/21 17:00 02/16/21 17:37 DC Magnesium Oxide (Magnesium Oxide) 400 mg DAILY PO 02/17/21 09:00 03/04/21 09:21 DC 03/03/21 08:31 Non-Formulary Medication (Methyl Salicylate/ Menthol (Analgesic [place])) 1 debra PRN Q6HRS PRN TP MUSCLE PAIN 02/16/21 17:00 02/16/21 17:37 DC Non-Formulary Medication (Umeclidinium [place] (Incruse Ellipta)) 62.5 mcg DAILY IH 02/17/21 09:00 02/16/21 17:49 DC Non-Formulary Medication (Zinc Gluconate ) 50 mg DAILY PO 02/17/21 09:00 02/16/21 17:46 DC Albuterol/ Ipratropium (Duoneb) 3 ml RTQID NEB 02/16/21 20:00 02/17/21 19:52 DC Albuterol Sulfate (Ventolin) 2.5 mg PRN Q4HRS PRN NEB SHORTNESS OF BREATH 02/16/21 18:00 Influenza Virus Vaccine Quadrival (Flulaval Quad [id number] Syringe) 0.5 ml ONCE ONCE VAX IM 02/17/21 09:00 02/17/21 09:01 DC 02/17/21 09:21 Lidocaine (Lidoderm) 1 patch DAILY PRN TP pain 02/17/21 09:30 03/29/21 12:01 DC 03/28/21 08:37 Albuterol/ Ipratropium (Combivent Respimat 20-100 Mcg) 1 puff RTQID INH 02/17/21 20:00 04/03/21 19:38 Sertraline HCl (Zoloft) 25 mg DAILY PO 02/22/21 09:00 02/24/21 10:00 DC 02/24/21 09:59 Sertraline HCl (Zoloft) 50 mg DAILY PO 02/25/21 09:00 03/01/21 18:30 DC 03/01/21 10:07 Olanzapine (ZyPREXA ZYDIS) 5 mg 1X ONCE PO 02/26/21 12:03 02/26/21 12:09 DC 02/26/21 12:25 Clonazepam (KlonoPIN) 0.5 mg DAILY PO 02/28/21 09:00 03/02/21 07:00 DC 03/01/21 10:07 Bupropion HCl (Wellbutrin Xl) 150 mg DAILY PO 03/02/21 09:00 03/08/21 15:46 DC 03/08/21 08:41 Levetiracetam (Keppra) 250 mg DAILY PO 03/03/21 09:00 04/03/21 08:37 Aripiprazole (Abilify) 5 mg DAILY PO 03/05/21 09:00 04/03/21 08:37 Ondansetron HCl (Zofran Odt) 4 mg PRN Q4HRS PRN PO NAUSEA/VOMITING 03/06/21 19:30 04/02/21 09:23 Potassium Chloride (Klor-Con) 30 meq BID PO 03/07/21 09:00 04/03/21 19:40 Divalproex Sodium (Depakote Er) 1,000 mg 1700 PO 03/08/21 17:00 03/12/21 00:01 DC 03/11/21 17:27 Duloxetine HCl (Cymbalta) 30 mg 0900,1700 PO 03/08/21 17:00 04/03/21 17:20 Sulfasalazine (Azulfidine) 500 mg 0900,1300,1700 PO 03/08/21 09:00 04/03/21 17:20 Bupropion HCl (Wellbutrin Xl) 300 mg DAILY PO 03/09/21 09:00 04/03/21 08:36 Potassium Chloride (Klor-Con) 40 meq 1630,1730 PO 03/08/21 16:30 03/08/21 18:04 DC 03/08/21 16:57 Potassium Chloride (Klor-Con) 40 meq 1700,1800 PO 03/08/21 17:15 03/08/21 18:04 DC 03/08/21 17:56 Divalproex Sodium (Depakote Sprinkles) 500 mg BID PO 03/12/21 09:00 04/03/21 19:39 Clotrimazole (Mycelex-7) 1 debra QHS VG 03/18/21 21:00 03/25/21 20:59 DC 03/24/21 20:20 Dicyclomine HCl (Bentyl) 20 mg TID PO 03/18/21 21:00 04/03/21 19:39 Diphenoxylate HCl/ Atropine (Lomotil) 2 tab BID PO 03/18/21 21:00 04/03/21 19:40 Lidocaine (Lidoderm) 1 patch PRN DAILY PRN TP pain 03/29/21 12:15 I have reviewed the current psychotropics carefully including drug interactions. Risk benefit ratio favors no change other than as noted in my dictated progress note. Diagnosis: Problems: (1) Impulse control disorder, unspecified (2) Mild cognitive impairment (3) Anxiety disorder, unspecified (4) Bipolar 1 disorder, depressed NITHIN STEVENS MD Apr 03, 2021 21:03
--- NOTE | 2021-04-03 23:15 | NUR ---
Patient was in her room asleep in her bed when nurse entered the room to give her HS medications. She was calm, medication compliant and cooperative. Patient did not have any adverse behaviors at this time.
[2021-04-04 05:59] VITALS: BP 128/71
[2021-04-04 06:58] LABS: ALBUMIN 2.8 g/dL (3.4-5.0); ALBUMIN/GLOBULIN RATIO 0.8 (1.0-1.7); CALCIUM 8.5 mg/dL (8.5-10.1); CREATININE 0.5 mg/dL (0.6-1.0); GFR 122.3; POTASSIUM 4.1 mmol/L (3.5-5.1); TOTAL BILIRUBIN 0.4 mg/dL (0.2-1.0); TOTAL PROTEIN 6.2 g/dL (6.4-8.2)
[2021-04-04 07:03] LABS: BASO % 1 % (0-3); EOS # 0.2 x10^3/uL (0.0-0.7); EOS % 4 % (0-3); HEMATOCRIT 37.8 % (36.0-47.0); HEMOGLOBIN 12.6 g/dL (12.0-15.5); LYMPH # 0.7 x10^3/uL (1.0-4.8); LYMPH % 17 % (24-48); MEAN CORPUSCULAR HEMOGLOBIN 38 pg (25-35); MEAN CORPUSCULAR HGB CONC 33 g/dL (31-37); MEAN CORPUSCULAR VOLUME 114 fL (79-100); MONO # 0.4 x10^3/uL (0.0-1.1); MONO % 9 % (0-9); NEUT % 69 % (31-73); PLATELET COUNT 248 x10^3/uL (140-400); RED BLOOD COUNT 3.33 x10^6/uL (3.50-5.40); RED CELL DISTRIBUTION WIDTH 16.5 % (11.5-14.5); WHITE BLOOD COUNT 4.4 x10^3/uL (4.0-11.0)
[2021-04-04 07:24] LABS: PLT ESTIMATE ADEQUATE (ADEQUATE)
[2021-04-04 07:32] LABS: PAPPENHEIMER BODIES PRESENT; POLYCHROMASIA PRESENT
[2021-04-04] MEDS: IPRATROPIUM/ALBUTEROL 20/100mcg/INH INHALER. INH SCH ×4 (08:10→20:36)
[2021-04-04] MEDS: ARIPiprazole 5 MG TABLET PO SCH (08:11)
[2021-04-04] MEDS: LIPASE/PROTEAS/AMYLAS 10/32/42 CAPSULE.DR. PO SCH ×3 (08:12→16:23)
[2021-04-04] MEDS: dilTIAZem HCL 30 MG TABLET PO SCH ×2 (08:15→20:37)
[2021-04-04] MEDS: DIVALPROEX 125 MG CAP.SPRINK PO SCH ×2 (08:18→20:35)
[2021-04-04] MEDS: DULoxetine HCL 30 MG CAPSULE.DR PO SCH ×2 (08:19→16:29)
[2021-04-04] MEDS: PANTOPRAZOLE 40 MG TABLET. PO SCH (08:19)
[2021-04-04] MEDS: buPROPion XL 300 MG TAB.ER.24H. PO SCH (08:21)
[2021-04-04] MEDS: POTASSIUM CHLORIDE 10 MEQ TABLET.ER. PO SCH ×2 (08:23→20:36)
[2021-04-04] MEDS: GABAPENTIN 300 MG CAPSULE. PO SCH ×4 (08:24→20:36)
[2021-04-04] MEDS: levETIRAcetam 250 MG TABLET PO SCH (08:24)
[2021-04-04] MEDS: NYSTATIN TOPICAL POWDER 15GM BOTTLE. TP SCH ×2 (09:00→20:38)
[2021-04-04] MEDS: FLUTICASONE 50MCG/NASAL SPRAY 16GM BOTTLE. NS SCH (09:00)
[2021-04-04] MEDS: HYDROXYUREA 500 MG CAPSULE PO SCH (10:19)
[2021-04-04] MEDS: sulfaSALAzine 500 MG TABLET PO SCH ×3 (10:24→16:23)
[2021-04-04] MEDS: DIPHENOXYLATE/ATROPINE TABLET. PO SCH ×2 (10:24→20:36)
[2021-04-04] MEDS: DICYCLOMINE HCL 20 MG TABLET PO SCH ×2 (12:52→20:36)
--- NOTE | 2021-04-04 14:43 | NUR ---
NURSING NOTE Medication given in hand (x3) today per pt. request and blue Gatorade. Very pleasant today. Enjoyed activities today.
[2021-04-04 15:56] VITALS: BP 91/59
--- NOTE | 2021-04-04 19:32 | NUR ---
Patient found on the floor at around [address] near the dining room. As no one witnessed the event, security was contacted. Security reviewed the tapes and they said it appeared that she moved the oxygen concentrator out of her way and then put herself out of the chair intentionally.
[2021-04-04] MEDS: traZODone 50 MG TABLET. PO SCH (20:36)
--- NOTE | 2021-04-04 20:48 | PDOC ---
Exam Note: [place] Note: Please also refer to the separate dictated note~for this date of service dictated separately.~Patient seen individually. Discussed the patient with Nursing staff reviewed the chart.~Reviewed interim history and current functioning. Reviewed vital signs,~Labs/ Radiology~and current medications noted below. Continue current treatment with the changes noted in the dictated addendum note Assessment: Vital Signs/I&O: Vital Signs Date Time Temp Pulse Resp B/P (MAP) Pulse Ox O2 Delivery O2 Flow Rate FiO2 04/04/21 20:37 88 91/59 04/04/21 15:56 98.0 16 91 04/03/21 05:54 2.0 04/02/21 05:46 Nasal Cannula I & O 04/03/21 04/03/21 04/04/21 15:00 23:00 07:00 Intake Total 600 ml 240 ml 0 ml Balance 600 ml 240 ml 0 ml Labs: Laboratory Tests Test 04/04/21 06:18 White Blood Count 4.4 x10^3/uL (4.0-11.0) Red Blood Count 3.33 x10^6/uL (3.50-5.40) L Hemoglobin 12.6 g/dL (12.0-15.5) Hematocrit 37.8 % (36.0-47.0) Mean Corpuscular Volume 114 fL (79-100) H Mean Corpuscular Hemoglobin 38 pg (25-35) H Mean Corpuscular Hemoglobin Concent 33 g/dL (31-37) Red Cell Distribution Width 16.5 % (11.5-14.5) H Platelet Count 248 x10^3/uL (140-400) Neutrophils (%) (Auto) 69 % (31-73) Lymphocytes (%) (Auto) 17 % (24-48) L Monocytes (%) (Auto) 9 % (0-9) Eosinophils (%) (Auto) 4 % (0-3) H Basophils (%) (Auto) 1 % (0-3) Neutrophils # (Auto) 3.0 x10^3uL (1.8-7.7) Lymphocytes # (Auto) 0.7 x10^3/uL (1.0-4.8) L Monocytes # (Auto) 0.4 x10^3/uL (0.0-1.1) Eosinophils # (Auto) 0.2 x10^3/uL (0.0-0.7) Basophils # (Auto) 0.0 x10^3/uL (0.0-0.2) Platelet Estimate Adequate (ADEQUATE) Polychromasia Present Macrocytosis Present Pappenheimer Bodies Present Sodium Level 142 mmol/L (136-145) Potassium Level 4.1 mmol/L (3.5-5.1) Chloride Level 100 mmol/L (98-107) Carbon Dioxide Level 34 mmol/L (21-32) H Anion Gap 8 (6-14) Blood Urea Nitrogen 17 mg/dL (7-20) Creatinine 0.5 mg/dL (0.6-1.0) L Estimated GFR (Cockcroft-Gault) 122.3 BUN/Creatinine Ratio 34 (6-20) H Glucose Level 88 mg/dL (70-99) Calcium Level 8.5 mg/dL (8.5-10.1) Total Bilirubin 0.4 mg/dL (0.2-1.0) Aspartate Amino Transferase (AST) 23 U/L (15-37) Alanine Aminotransferase (ALT) 27 U/L (14-59) Alkaline Phosphatase 90 U/L (46-116) Total Protein 6.2 g/dL (6.4-8.2) L Albumin 2.8 g/dL (3.4-5.0) L Albumin/Globulin Ratio 0.8 (1.0-1.7) L Current Medications: Meds: Laboratory Tests Test 04/04/21 06:18 White Blood Count 4.4 x10^3/uL Red Blood Count 3.33 x10^6/uL Hemoglobin 12.6 g/dL Hematocrit 37.8 % Mean Corpuscular Volume 114 fL Mean Corpuscular Hemoglobin 38 pg Mean Corpuscular Hemoglobin Concent 33 g/dL Red Cell Distribution Width 16.5 % Platelet Count 248 x10^3/uL Neutrophils (%) (Auto) 69 % Lymphocytes (%) (Auto) 17 % Monocytes (%) (Auto) 9 % Eosinophils (%) (Auto) 4 % Basophils (%) (Auto) 1 % Neutrophils # (Auto) 3.0 x10^3uL Lymphocytes # (Auto) 0.7 x10^3/uL Monocytes # (Auto) 0.4 x10^3/uL Eosinophils # (Auto) 0.2 x10^3/uL Basophils # (Auto) 0.0 x10^3/uL Platelet Estimate Adequate Polychromasia Present Macrocytosis Present Pappenheimer Bodies Present Sodium Level 142 mmol/L Potassium Level 4.1 mmol/L Chloride Level 100 mmol/L Carbon Dioxide Level 34 mmol/L Anion Gap 8 Blood Urea Nitrogen 17 mg/dL Creatinine 0.5 mg/dL Estimated GFR (Cockcroft-Gault) 122.3 BUN/Creatinine Ratio 34 Glucose Level 88 mg/dL Calcium Level 8.5 mg/dL Total Bilirubin 0.4 mg/dL Aspartate Amino Transf (AST/SGOT) 23 U/L Alanine Aminotransferase (ALT/SGPT) 27 U/L Alkaline Phosphatase 90 U/L Total Protein 6.2 g/dL Albumin 2.8 g/dL Albumin/Globulin Ratio 0.8 Current Medications Medications (Trade) Dose Ordered Sig/Mya Route PRN Reason Start Time Stop Time Status Last Admin Dose Admin Acetaminophen (Tylenol) 650 mg PRN Q6HRS PRN PO MILD PAIN / TEMP > 100.3'F 02/16/21 15:45 03/04/21 09:21 DC 02/18/21 06:31 Multi-Ingredient Ointment (Analgesic [place]) 1 debra PRN QID PRN TP MUSCLE PAIN 02/16/21 15:45 03/04/21 09:21 DC Al Hydroxide/Mg Hydroxide (Mylanta Plus Xs) 15 ml PRN AFTMEALHC PRN PO DYSPEPSIA 02/16/21 15:45 03/04/21 22:05 Magnesium Hydroxide (Milk Of Magnesia) 2,400 mg PRN QHS PRN PO 1ST CHOICE CONSTIPATION 02/16/21 15:45 03/04/21 09:21 DC Acetaminophen (Tylenol) 1,000 mg Q6HRS PRN PO pain or fever 02/16/21 17:00 02/16/21 17:35 DC Acetaminophen (Tylenol) 500 mg Q4HRS PRN PO MILD PAIN 1-3 02/16/21 17:00 02/16/21 17:36 DC Bisacodyl (Dulcolax Tab) 5 mg PRN DAILY PRN PO 2ND CHOICE CONSTIPATION 02/16/21 17:00 03/04/21 09:21 DC Vitamin D (Vitamin D3) 50,000 unit WEEKLY PO 02/22/21 09:00 03/04/21 09:21 DC 02/22/21 07:16 Clonazepam (KlonoPIN) 0.5 mg BID PO 02/16/21 21:00 02/27/21 19:54 DC 02/27/21 10:11 Dicyclomine HCl (Bentyl) 20 mg TID PO 02/16/21 21:00 03/04/21 09:21 DC 03/03/21 21:07 Diphenoxylate HCl/ Atropine (Lomotil) 2 tab BID PO 02/16/21 21:00 03/04/21 09:21 DC 03/03/21 21:08 Divalproex Sodium (Depakote Er) 1,000 mg HS PO 02/16/21 21:00 03/07/21 20:15 DC 03/04/21 21:43 Duloxetine HCl (Cymbalta) 30 mg BID PO 02/16/21 21:00 03/07/21 20:15 DC 03/06/21 08:14 Fluticasone Propionate (Flonase) 2 spray DAILY NS 02/17/21 09:00 04/03/21 08:32 Furosemide (Lasix) 20 mg DAILY PO 02/17/21 09:00 03/04/21 09:21 DC 03/03/21 08:32 Gabapentin (Neurontin) 300 mg QID PO 02/16/21 17:00 04/04/21 20:36 Hydroxyurea (Hydrea) 1,000 mg DAILY PO 02/17/21 09:00 04/04/21 10:19 Levetiracetam (Keppra) 250 mg BID PO 02/16/21 21:00 03/02/21 14:48 DC 03/02/21 09:54 Lidocaine (Lidoderm) 1 patch DAILY TP 02/17/21 09:00 02/17/21 09:24 DC Al Hydroxide/Mg Hydroxide (Mylanta Plus Xs) 15 ml PRN AFTMEALHC PRN PO DYSPEPSIA 02/16/21 17:00 02/16/21 17:36 DC Mirabegron (Myrbetriq) 50 mg DAILY PO 02/17/21 09:00 03/04/21 09:21 DC 03/03/21 08:30 Nystatin (Nystop) 1 debra BID TP 02/16/21 21:00 04/04/21 09:00 Pantoprazole Sodium (Protonix) 40 mg DAILYAC PO 02/17/21 07:30 04/04/21 08:19 Potassium Chloride (Klor-Con) 40 meq DAILY PO 02/17/21 09:00 03/04/21 09:21 DC 03/03/21 08:32 Sulfasalazine (Azulfidine) 500 mg TID PO 02/16/21 21:00 03/07/21 20:15 DC 03/06/21 13:05 Trazodone HCl (Desyrel) 50 mg QHS PO 02/16/21 21:00 04/04/21 20:36 Non-Formulary Medication (Albuterol Sulfate (Albuterol Sulfate Conc Neb Soln)) 1 vial PRN Q4HRS PRN NEB SHORTNESS OF BREATH 02/16/21 17:00 02/16/21 17:49 DC Ascorbic Acid (Vitamin C) 1,000 mg DAILY PO 02/17/21 09:00 03/04/21 09:21 DC 03/03/21 08:34 Diltiazem HCl (Cardizem) 60 mg BID PO 02/16/21 21:00 04/04/21 08:15 Lactobacillus Rhamnosus (Culturelle) 1 cap DAILY PO 02/17/21 09:00 03/04/21 09:21 DC 03/03/21 08:32 Amylase/Lipase/ Protease (Zenpep 10,000) 1 cap TIDBFRMEAL PO 02/17/21 07:30 04/04/21 16:23 Non-Formulary Medication (Magnesium Hydroxide (Milk Of Magnesia)) 2,400 mg PRN DAILY PRN PO CONSTIPATION 02/16/21 17:00 02/16/21 17:37 DC Magnesium Oxide (Magnesium Oxide) 400 mg DAILY PO 02/17/21 09:00 03/04/21 09:21 DC 03/03/21 08:31 Non-Formulary Medication (Methyl Salicylate/ Menthol (Analgesic [place])) 1 debra PRN Q6HRS PRN TP MUSCLE PAIN 02/16/21 17:00 02/16/21 17:37 DC Non-Formulary Medication (Umeclidinium [place] (Incruse Ellipta)) 62.5 mcg DAILY IH 02/17/21 09:00 02/16/21 17:49 DC Non-Formulary Medication (Zinc Gluconate ) 50 mg DAILY PO 02/17/21 09:00 02/16/21 17:46 DC Albuterol/ Ipratropium (Duoneb) 3 ml RTQID NEB 02/16/21 20:00 02/17/21 19:52 DC Albuterol Sulfate (Ventolin) 2.5 mg PRN Q4HRS PRN NEB SHORTNESS OF BREATH 02/16/21 18:00 Influenza Virus Vaccine Quadrival (Flulaval Quad [id number] Syringe) 0.5 ml ONCE ONCE VAX IM 02/17/21 09:00 02/17/21 09:01 DC 02/17/21 09:21 Lidocaine (Lidoderm) 1 patch DAILY PRN TP pain 02/17/21 09:30 03/29/21 12:01 DC 03/28/21 08:37 Albuterol/ Ipratropium (Combivent Respimat 20-100 Mcg) 1 puff RTQID INH 02/17/21 20:00 04/04/21 20:36 Sertraline HCl (Zoloft) 25 mg DAILY PO 02/22/21 09:00 02/24/21 10:00 DC 02/24/21 09:59 Sertraline HCl (Zoloft) 50 mg DAILY PO 02/25/21 09:00 03/01/21 18:30 DC 03/01/21 10:07 Olanzapine (ZyPREXA ZYDIS) 5 mg 1X ONCE PO 02/26/21 12:03 02/26/21 12:09 DC 02/26/21 12:25 Clonazepam (KlonoPIN) 0.5 mg DAILY PO 02/28/21 09:00 03/02/21 07:00 DC 03/01/21 10:07 Bupropion HCl (Wellbutrin Xl) 150 mg DAILY PO 03/02/21 09:00 03/08/21 15:46 DC 03/08/21 08:41 Levetiracetam (Keppra) 250 mg DAILY PO 03/03/21 09:00 04/04/21 08:24 Aripiprazole (Abilify) 5 mg DAILY PO 03/05/21 09:00 04/04/21 08:11 Ondansetron HCl (Zofran Odt) 4 mg PRN Q4HRS PRN PO NAUSEA/VOMITING 03/06/21 19:30 04/02/21 09:23 Potassium Chloride (Klor-Con) 30 meq BID PO 03/07/21 09:00 04/04/21 20:36 Divalproex Sodium (Depakote Er) 1,000 mg 1700 PO 03/08/21 17:00 03/12/21 00:01 DC 03/11/21 17:27 Duloxetine HCl (Cymbalta) 30 mg 0900,1700 PO 03/08/21 17:00 04/04/21 16:29 Sulfasalazine (Azulfidine) 500 mg 0900,1300,1700 PO 03/08/21 09:00 04/04/21 16:23 Bupropion HCl (Wellbutrin Xl) 300 mg DAILY PO 03/09/21 09:00 04/04/21 08:21 Potassium Chloride (Klor-Con) 40 meq 1630,1730 PO 03/08/21 16:30 03/08/21 18:04 DC 03/08/21 16:57 Potassium Chloride (Klor-Con) 40 meq 1700,1800 PO 03/08/21 17:15 03/08/21 18:04 DC 03/08/21 17:56 Divalproex Sodium (Depakote Sprinkles) 500 mg BID PO 03/12/21 09:00 04/04/21 20:35 Clotrimazole (Mycelex-7) 1 debra QHS VG 03/18/21 21:00 03/25/21 20:59 DC 03/24/21 20:20 Dicyclomine HCl (Bentyl) 20 mg TID PO 03/18/21 21:00 04/04/21 20:36 Diphenoxylate HCl/ Atropine (Lomotil) 2 tab BID PO 03/18/21 21:00 04/04/21 20:36 Lidocaine (Lidoderm) 1 patch PRN DAILY PRN TP pain 03/29/21 12:15 I have reviewed the current psychotropics carefully including drug interactions. Risk benefit ratio favors no change other than as noted in my dictated progress note. Diagnosis: Problems: (1) Impulse control disorder, unspecified (2) Mild cognitive impairment (3) Anxiety disorder, unspecified (4) Bipolar 1 disorder, depressed (5) Bipolar disorder, curr episode mixed, severe, with psychotic features NITHIN STEVENS MD Apr 04, 2021 20:48
--- NOTE | 2021-04-04 23:13 | NUR ---
Patient was in bed shortly after this nurse got on shift. She was calm, cooperative and medication compliant. Patient has been sleeping soundly this shift.
[2021-04-05 06:35] VITALS: BP 124/76
--- NOTE | 2021-04-05 08:36 | PDOC ---
Exam Note: Napoleon Note: This note is a late entry for 04/03/2021 covers elements not covered in my initial note. Subjective: The patient was seen individually in the evening of 04/03/2021 with Cassie BARR, discussed and reviewed the chart. The patient slept 9 hours previous night. Overall she has been withdrawn, but keeping her oxygen in place more than before. She is snarky and irritable at times per nursing report. We will check labs in the morning including Keppra level awaited. Review of Systems: Impaired ambulation in Broda chair. Shortness of breath on O2 supplements. No CV, , eye, ENT system symptoms on review. Mental Status Exam: The patient is oriented to herself and situation. During the individual visit, I talked to her about keeping the oxygen in place. She nods affirmatively but then at other times removes it. Speech coherent. Abstraction fair. Computation impaired. Language function intact. Mood and affect remains anxious, labile. Laboratory Data: Reviewed. Impression: Bipolar disorder, depressed. Anxiety disorder unspecified. Impulse control disorder unspecified. Plan: No change from initial note. Assessment: Vital Signs/I&O: Vital Signs Date Time Temp Pulse Resp B/P (MAP) Pulse Ox O2 Delivery O2 Flow Rate FiO2 04/05/21 06:35 98.2 93 18 124/76 (92) 93 04/03/21 05:54 2.0 04/02/21 05:46 Nasal Cannula I & O 04/04/21 04/04/21 04/05/21 15:00 23:00 07:00 Intake Total 1317 ml 607 ml Balance 1317 ml 607 ml Current Medications: Meds: Current Medications Medications (Trade) Dose Ordered Sig/Mya Route PRN Reason Start Time Stop Time Status Last Admin Dose Admin Acetaminophen (Tylenol) 650 mg PRN Q6HRS PRN PO MILD PAIN / TEMP > 100.3'F 02/16/21 15:45 03/04/21 09:21 DC 02/18/21 06:31 Multi-Ingredient Ointment (Analgesic [place]) 1 debra PRN QID PRN TP MUSCLE PAIN 02/16/21 15:45 03/04/21 09:21 DC Al Hydroxide/Mg Hydroxide (Mylanta Plus Xs) 15 ml PRN AFTMEALHC PRN PO DYSPEPSIA 02/16/21 15:45 03/04/21 22:05 Magnesium Hydroxide (Milk Of Magnesia) 2,400 mg PRN QHS PRN PO 1ST CHOICE CONSTIPATION 02/16/21 15:45 03/04/21 09:21 DC Acetaminophen (Tylenol) 1,000 mg Q6HRS PRN PO pain or fever 02/16/21 17:00 02/16/21 17:35 DC Acetaminophen (Tylenol) 500 mg Q4HRS PRN PO MILD PAIN 1-3 02/16/21 17:00 02/16/21 17:36 DC Bisacodyl (Dulcolax Tab) 5 mg PRN DAILY PRN PO 2ND CHOICE CONSTIPATION 02/16/21 17:00 03/04/21 09:21 DC Vitamin D (Vitamin D3) 50,000 unit WEEKLY PO 02/22/21 09:00 03/04/21 09:21 DC 02/22/21 07:16 Clonazepam (KlonoPIN) 0.5 mg BID PO 02/16/21 21:00 02/27/21 19:54 DC 02/27/21 10:11 Dicyclomine HCl (Bentyl) 20 mg TID PO 02/16/21 21:00 03/04/21 09:21 DC 03/03/21 21:07 Diphenoxylate HCl/ Atropine (Lomotil) 2 tab BID PO 02/16/21 21:00 03/04/21 09:21 DC 03/03/21 21:08 Divalproex Sodium (Depakote Er) 1,000 mg HS PO 02/16/21 21:00 03/07/21 20:15 DC 03/04/21 21:43 Duloxetine HCl (Cymbalta) 30 mg BID PO 02/16/21 21:00 03/07/21 20:15 DC 03/06/21 08:14 Fluticasone Propionate (Flonase) 2 spray DAILY NS 02/17/21 09:00 04/03/21 08:32 Furosemide (Lasix) 20 mg DAILY PO 02/17/21 09:00 03/04/21 09:21 DC 03/03/21 08:32 Gabapentin (Neurontin) 300 mg QID PO 02/16/21 17:00 04/04/21 20:36 Hydroxyurea (Hydrea) 1,000 mg DAILY PO 02/17/21 09:00 04/04/21 10:19 Levetiracetam (Keppra) 250 mg BID PO 02/16/21 21:00 03/02/21 14:48 DC 03/02/21 09:54 Lidocaine (Lidoderm) 1 patch DAILY TP 02/17/21 09:00 02/17/21 09:24 DC Al Hydroxide/Mg Hydroxide (Mylanta Plus Xs) 15 ml PRN AFTMEALHC PRN PO DYSPEPSIA 02/16/21 17:00 02/16/21 17:36 DC Mirabegron (Myrbetriq) 50 mg DAILY PO 02/17/21 09:00 03/04/21 09:21 DC 03/03/21 08:30 Nystatin (Nystop) 1 debra BID TP 02/16/21 21:00 04/04/21 09:00 Pantoprazole Sodium (Protonix) 40 mg DAILYAC PO 02/17/21 07:30 04/04/21 08:19 Potassium Chloride (Klor-Con) 40 meq DAILY PO 02/17/21 09:00 03/04/21 09:21 DC 03/03/21 08:32 Sulfasalazine (Azulfidine) 500 mg TID PO 02/16/21 21:00 03/07/21 20:15 DC 03/06/21 13:05 Trazodone HCl (Desyrel) 50 mg QHS PO 02/16/21 21:00 04/04/21 20:36 Non-Formulary Medication (Albuterol Sulfate (Albuterol Sulfate Conc Neb Soln)) 1 vial PRN Q4HRS PRN NEB SHORTNESS OF BREATH 02/16/21 17:00 02/16/21 17:49 DC Ascorbic Acid (Vitamin C) 1,000 mg DAILY PO 02/17/21 09:00 03/04/21 09:21 DC 03/03/21 08:34 Diltiazem HCl (Cardizem) 60 mg BID PO 02/16/21 21:00 04/04/21 08:15 Lactobacillus Rhamnosus (Culturelle) 1 cap DAILY PO 02/17/21 09:00 03/04/21 09:21 DC 03/03/21 08:32 Amylase/Lipase/ Protease (Zenpep 10,000) 1 cap TIDBFRMEAL PO 02/17/21 07:30 04/04/21 16:23 Non-Formulary Medication (Magnesium Hydroxide (Milk Of Magnesia)) 2,400 mg PRN DAILY PRN PO CONSTIPATION 02/16/21 17:00 02/16/21 17:37 DC Magnesium Oxide (Magnesium Oxide) 400 mg DAILY PO 02/17/21 09:00 03/04/21 09:21 DC 03/03/21 08:31 Non-Formulary Medication (Methyl Salicylate/ Menthol (Analgesic [place])) 1 debra PRN Q6HRS PRN TP MUSCLE PAIN 02/16/21 17:00 02/16/21 17:37 DC Non-Formulary Medication (Umeclidinium [place] (Incruse Ellipta)) 62.5 mcg DAILY IH 02/17/21 09:00 02/16/21 17:49 DC Non-Formulary Medication (Zinc Gluconate ) 50 mg DAILY PO 02/17/21 09:00 02/16/21 17:46 DC Albuterol/ Ipratropium (Duoneb) 3 ml RTQID NEB 02/16/21 20:00 02/17/21 19:52 DC Albuterol Sulfate (Ventolin) 2.5 mg PRN Q4HRS PRN NEB SHORTNESS OF BREATH 02/16/21 18:00 Influenza Virus Vaccine Quadrival (Flulaval Quad [id number] Syringe) 0.5 ml ONCE ONCE VAX IM 02/17/21 09:00 02/17/21 09:01 DC 02/17/21 09:21 Lidocaine (Lidoderm) 1 patch DAILY PRN TP pain 02/17/21 09:30 03/29/21 12:01 DC 03/28/21 08:37 Albuterol/ Ipratropium (Combivent Respimat 20-100 Mcg) 1 puff RTQID INH 02/17/21 20:00 04/04/21 20:36 Sertraline HCl (Zoloft) 25 mg DAILY PO 02/22/21 09:00 02/24/21 10:00 DC 02/24/21 09:59 Sertraline HCl (Zoloft) 50 mg DAILY PO 02/25/21 09:00 03/01/21 18:30 DC 03/01/21 10:07 Olanzapine (ZyPREXA ZYDIS) 5 mg 1X ONCE PO 02/26/21 12:03 02/26/21 12:09 DC 02/26/21 12:25 Clonazepam (KlonoPIN) 0.5 mg DAILY PO 02/28/21 09:00 03/02/21 07:00 DC 03/01/21 10:07 Bupropion HCl (Wellbutrin Xl) 150 mg DAILY PO 03/02/21 09:00 03/08/21 15:46 DC 03/08/21 08:41 Levetiracetam (Keppra) 250 mg DAILY PO 03/03/21 09:00 04/04/21 08:24 Aripiprazole (Abilify) 5 mg DAILY PO 03/05/21 09:00 04/04/21 08:11 Ondansetron HCl (Zofran Odt) 4 mg PRN Q4HRS PRN PO NAUSEA/VOMITING 03/06/21 19:30 04/02/21 09:23 Potassium Chloride (Klor-Con) 30 meq BID PO 03/07/21 09:00 04/04/21 20:36 Divalproex Sodium (Depakote Er) 1,000 mg 1700 PO 03/08/21 17:00 03/12/21 00:01 DC 03/11/21 17:27 Duloxetine HCl (Cymbalta) 30 mg 0900,1700 PO 03/08/21 17:00 04/04/21 16:29 Sulfasalazine (Azulfidine) 500 mg 0900,1300,1700 PO 03/08/21 09:00 04/04/21 16:23 Bupropion HCl (Wellbutrin Xl) 300 mg DAILY PO 03/09/21 09:00 04/04/21 08:21 Potassium Chloride (Klor-Con) 40 meq 1630,1730 PO 03/08/21 16:30 03/08/21 18:04 DC 03/08/21 16:57 Potassium Chloride (Klor-Con) 40 meq 1700,1800 PO 03/08/21 17:15 03/08/21 18:04 DC 03/08/21 17:56 Divalproex Sodium (Depakote Sprinkles) 500 mg BID PO 03/12/21 09:00 04/04/21 20:35 Clotrimazole (Mycelex-7) 1 debra QHS VG 03/18/21 21:00 03/25/21 20:59 DC 03/24/21 20:20 Dicyclomine HCl (Bentyl) 20 mg TID PO 03/18/21 21:00 04/04/21 20:36 Diphenoxylate HCl/ Atropine (Lomotil) 2 tab BID PO 03/18/21 21:00 04/04/21 20:36 Lidocaine (Lidoderm) 1 patch PRN DAILY PRN TP pain 03/29/21 12:15 I have reviewed the current psychotropics carefully including drug interactions. Risk benefit ratio favors no change other than as noted in my dictated progress note. Diagnosis: Problems: (1) Impulse control disorder, unspecified (2) Mild cognitive impairment (3) Anxiety disorder, unspecified (4) Bipolar 1 disorder, depressed (5) Bipolar disorder, curr episode mixed, severe, with psychotic features NITHIN STEVENS MD Apr 05, 2021 08:36
[2021-04-05] MEDS: DICYCLOMINE HCL 20 MG TABLET PO SCH ×3 (08:47→21:17)
[2021-04-05] MEDS: LIPASE/PROTEAS/AMYLAS 10/32/42 CAPSULE.DR. PO SCH ×3 (08:47→17:35)
[2021-04-05] MEDS: DULoxetine HCL 30 MG CAPSULE.DR PO SCH ×2 (08:47→17:36)
[2021-04-05] MEDS: GABAPENTIN 300 MG CAPSULE. PO SCH ×4 (08:47→21:17)
[2021-04-05] MEDS: levETIRAcetam 250 MG TABLET PO SCH (08:47)
[2021-04-05] MEDS: PANTOPRAZOLE 40 MG TABLET. PO SCH (08:47)
[2021-04-05] MEDS: DIVALPROEX 125 MG CAP.SPRINK PO SCH ×2 (08:48→21:15)
[2021-04-05] MEDS: POTASSIUM CHLORIDE 10 MEQ TABLET.ER. PO SCH ×2 (08:48→21:16)
[2021-04-05] MEDS: ARIPiprazole 5 MG TABLET PO SCH (08:48)
[2021-04-05] MEDS: DIPHENOXYLATE/ATROPINE TABLET. PO SCH ×2 (08:48→21:16)
[2021-04-05] MEDS: dilTIAZem HCL 30 MG TABLET PO SCH ×2 (08:48→21:16)
[2021-04-05] MEDS: sulfaSALAzine 500 MG TABLET PO SCH ×3 (08:49→17:36)
[2021-04-05] MEDS: FLUTICASONE 50MCG/NASAL SPRAY 16GM BOTTLE. NS SCH (08:49)
[2021-04-05] MEDS: NYSTATIN TOPICAL POWDER 15GM BOTTLE. TP SCH ×2 (08:49→21:15)
[2021-04-05] MEDS: IPRATROPIUM/ALBUTEROL 20/100mcg/INH INHALER. INH SCH ×4 (08:49→21:15)
--- NOTE | 2021-04-05 08:49 | PDOC ---
Exam Note: Napoleon Note: This note is a late entry for 04/04/2021 covers elements not covered in my initial note. Subjective: The patient was seen individually in the evening of 04/04/2021 with Zahira BARR, discussed and reviewed the chart. The patient slept 8-1/2 hours previous night. She put herself on the floor today. Security staff saw this on the camera and this was around 6 p.m. She then pulled her oxygen cannula off, when I went to visit her in the evening denied she did. Review of Systems: Impaired ambulation in Broda chair. Shortness of breath on O2 supplements. No CV, , eye, ENT system symptoms on review. Mental Status Exam: The patient is oriented to herself and situation. Speech coherent. Abstraction fair. Computation impaired. Language function intact. Mood and affect remains anxious, labile. Laboratory Data: Reviewed. Impression: Bipolar disorder, depressed. Anxiety disorder unspecified. Impulse control disorder unspecified. Plan: No change from initial note. Assessment: Vital Signs/I&O: Vital Signs Date Time Temp Pulse Resp B/P (MAP) Pulse Ox O2 Delivery O2 Flow Rate FiO2 04/05/21 06:35 98.2 93 18 124/76 (92) 93 04/03/21 05:54 2.0 04/02/21 05:46 Nasal Cannula I & O 04/04/21 04/04/21 04/05/21 15:00 23:00 07:00 Intake Total 1317 ml 607 ml Balance 1317 ml 607 ml Current Medications: Meds: Current Medications Medications (Trade) Dose Ordered Sig/Mya Route PRN Reason Start Time Stop Time Status Last Admin Dose Admin Acetaminophen (Tylenol) 650 mg PRN Q6HRS PRN PO MILD PAIN / TEMP > 100.3'F 02/16/21 15:45 03/04/21 09:21 DC 02/18/21 06:31 Multi-Ingredient Ointment (Analgesic [place]) 1 debra PRN QID PRN TP MUSCLE PAIN 02/16/21 15:45 03/04/21 09:21 DC Al Hydroxide/Mg Hydroxide (Mylanta Plus Xs) 15 ml PRN AFTMEALHC PRN PO DYSPEPSIA 02/16/21 15:45 03/04/21 22:05 Magnesium Hydroxide (Milk Of Magnesia) 2,400 mg PRN QHS PRN PO 1ST CHOICE CONSTIPATION 02/16/21 15:45 03/04/21 09:21 DC Acetaminophen (Tylenol) 1,000 mg Q6HRS PRN PO pain or fever 02/16/21 17:00 02/16/21 17:35 DC Acetaminophen (Tylenol) 500 mg Q4HRS PRN PO MILD PAIN 1-3 02/16/21 17:00 02/16/21 17:36 DC Bisacodyl (Dulcolax Tab) 5 mg PRN DAILY PRN PO 2ND CHOICE CONSTIPATION 02/16/21 17:00 03/04/21 09:21 DC Vitamin D (Vitamin D3) 50,000 unit WEEKLY PO 02/22/21 09:00 03/04/21 09:21 DC 02/22/21 07:16 Clonazepam (KlonoPIN) 0.5 mg BID PO 02/16/21 21:00 02/27/21 19:54 DC 02/27/21 10:11 Dicyclomine HCl (Bentyl) 20 mg TID PO 02/16/21 21:00 03/04/21 09:21 DC 03/03/21 21:07 Diphenoxylate HCl/ Atropine (Lomotil) 2 tab BID PO 02/16/21 21:00 03/04/21 09:21 DC 03/03/21 21:08 Divalproex Sodium (Depakote Er) 1,000 mg HS PO 02/16/21 21:00 03/07/21 20:15 DC 03/04/21 21:43 Duloxetine HCl (Cymbalta) 30 mg BID PO 02/16/21 21:00 03/07/21 20:15 DC 03/06/21 08:14 Fluticasone Propionate (Flonase) 2 spray DAILY NS 02/17/21 09:00 04/03/21 08:32 Furosemide (Lasix) 20 mg DAILY PO 02/17/21 09:00 03/04/21 09:21 DC 03/03/21 08:32 Gabapentin (Neurontin) 300 mg QID PO 02/16/21 17:00 04/04/21 20:36 Hydroxyurea (Hydrea) 1,000 mg DAILY PO 02/17/21 09:00 04/04/21 10:19 Levetiracetam (Keppra) 250 mg BID PO 02/16/21 21:00 03/02/21 14:48 DC 03/02/21 09:54 Lidocaine (Lidoderm) 1 patch DAILY TP 02/17/21 09:00 02/17/21 09:24 DC Al Hydroxide/Mg Hydroxide (Mylanta Plus Xs) 15 ml PRN AFTMEALHC PRN PO DYSPEPSIA 02/16/21 17:00 02/16/21 17:36 DC Mirabegron (Myrbetriq) 50 mg DAILY PO 02/17/21 09:00 03/04/21 09:21 DC 03/03/21 08:30 Nystatin (Nystop) 1 debra BID TP 02/16/21 21:00 04/04/21 09:00 Pantoprazole Sodium (Protonix) 40 mg DAILYAC PO 02/17/21 07:30 04/04/21 08:19 Potassium Chloride (Klor-Con) 40 meq DAILY PO 02/17/21 09:00 03/04/21 09:21 DC 03/03/21 08:32 Sulfasalazine (Azulfidine) 500 mg TID PO 02/16/21 21:00 03/07/21 20:15 DC 03/06/21 13:05 Trazodone HCl (Desyrel) 50 mg QHS PO 02/16/21 21:00 04/04/21 20:36 Non-Formulary Medication (Albuterol Sulfate (Albuterol Sulfate Conc Neb Soln)) 1 vial PRN Q4HRS PRN NEB SHORTNESS OF BREATH 02/16/21 17:00 02/16/21 17:49 DC Ascorbic Acid (Vitamin C) 1,000 mg DAILY PO 02/17/21 09:00 03/04/21 09:21 DC 03/03/21 08:34 Diltiazem HCl (Cardizem) 60 mg BID PO 02/16/21 21:00 04/04/21 08:15 Lactobacillus Rhamnosus (Culturelle) 1 cap DAILY PO 02/17/21 09:00 03/04/21 09:21 DC 03/03/21 08:32 Amylase/Lipase/ Protease (Zenpep 10,000) 1 cap TIDBFRMEAL PO 02/17/21 07:30 04/04/21 16:23 Non-Formulary Medication (Magnesium Hydroxide (Milk Of Magnesia)) 2,400 mg PRN DAILY PRN PO CONSTIPATION 02/16/21 17:00 02/16/21 17:37 DC Magnesium Oxide (Magnesium Oxide) 400 mg DAILY PO 02/17/21 09:00 03/04/21 09:21 DC 03/03/21 08:31 Non-Formulary Medication (Methyl Salicylate/ Menthol (Analgesic [place])) 1 debra PRN Q6HRS PRN TP MUSCLE PAIN 02/16/21 17:00 02/16/21 17:37 DC Non-Formulary Medication (Umeclidinium [place] (Incruse Ellipta)) 62.5 mcg DAILY IH 02/17/21 09:00 02/16/21 17:49 DC Non-Formulary Medication (Zinc Gluconate ) 50 mg DAILY PO 02/17/21 09:00 02/16/21 17:46 DC Albuterol/ Ipratropium (Duoneb) 3 ml RTQID NEB 02/16/21 20:00 02/17/21 19:52 DC Albuterol Sulfate (Ventolin) 2.5 mg PRN Q4HRS PRN NEB SHORTNESS OF BREATH 02/16/21 18:00 Influenza Virus Vaccine Quadrival (Flulaval Quad [id number] Syringe) 0.5 ml ONCE ONCE VAX IM 02/17/21 09:00 02/17/21 09:01 DC 02/17/21 09:21 Lidocaine (Lidoderm) 1 patch DAILY PRN TP pain 02/17/21 09:30 03/29/21 12:01 DC 03/28/21 08:37 Albuterol/ Ipratropium (Combivent Respimat 20-100 Mcg) 1 puff RTQID INH 02/17/21 20:00 04/04/21 20:36 Sertraline HCl (Zoloft) 25 mg DAILY PO 02/22/21 09:00 02/24/21 10:00 DC 02/24/21 09:59 Sertraline HCl (Zoloft) 50 mg DAILY PO 02/25/21 09:00 03/01/21 18:30 DC 03/01/21 10:07 Olanzapine (ZyPREXA ZYDIS) 5 mg 1X ONCE PO 02/26/21 12:03 02/26/21 12:09 DC 02/26/21 12:25 Clonazepam (KlonoPIN) 0.5 mg DAILY PO 02/28/21 09:00 03/02/21 07:00 DC 03/01/21 10:07 Bupropion HCl (Wellbutrin Xl) 150 mg DAILY PO 03/02/21 09:00 03/08/21 15:46 DC 03/08/21 08:41 Levetiracetam (Keppra) 250 mg DAILY PO 03/03/21 09:00 04/04/21 08:24 Aripiprazole (Abilify) 5 mg DAILY PO 03/05/21 09:00 04/04/21 08:11 Ondansetron HCl (Zofran Odt) 4 mg PRN Q4HRS PRN PO NAUSEA/VOMITING 03/06/21 19:30 04/02/21 09:23 Potassium Chloride (Klor-Con) 30 meq BID PO 03/07/21 09:00 04/04/21 20:36 Divalproex Sodium (Depakote Er) 1,000 mg 1700 PO 03/08/21 17:00 03/12/21 00:01 DC 03/11/21 17:27 Duloxetine HCl (Cymbalta) 30 mg 0900,1700 PO 03/08/21 17:00 04/04/21 16:29 Sulfasalazine (Azulfidine) 500 mg 0900,1300,1700 PO 03/08/21 09:00 04/04/21 16:23 Bupropion HCl (Wellbutrin Xl) 300 mg DAILY PO 03/09/21 09:00 04/04/21 08:21 Potassium Chloride (Klor-Con) 40 meq 1630,1730 PO 03/08/21 16:30 03/08/21 18:04 DC 03/08/21 16:57 Potassium Chloride (Klor-Con) 40 meq 1700,1800 PO 03/08/21 17:15 03/08/21 18:04 DC 03/08/21 17:56 Divalproex Sodium (Depakote Sprinkles) 500 mg BID PO 03/12/21 09:00 04/04/21 20:35 Clotrimazole (Mycelex-7) 1 debra QHS VG 03/18/21 21:00 03/25/21 20:59 DC 03/24/21 20:20 Dicyclomine HCl (Bentyl) 20 mg TID PO 03/18/21 21:00 04/04/21 20:36 Diphenoxylate HCl/ Atropine (Lomotil) 2 tab BID PO 03/18/21 21:00 04/04/21 20:36 Lidocaine (Lidoderm) 1 patch PRN DAILY PRN TP pain 03/29/21 12:15 I have reviewed the current psychotropics carefully including drug interactions. Risk benefit ratio favors no change other than as noted in my dictated progress note. Diagnosis: Problems: (1) Anxiety disorder, unspecified (2) Mild cognitive impairment (3) Impulse control disorder, unspecified (4) Bipolar 1 disorder, depressed (5) Bipolar disorder, curr episode mixed, severe, with psychotic features NITHIN STEVENS MD Apr 05, 2021 08:49
[2021-04-05] MEDS: buPROPion XL 300 MG TAB.ER.24H. PO SCH (08:50)
[2021-04-05] MEDS: HYDROXYUREA 500 MG CAPSULE PO SCH (09:00)
--- NOTE | 2021-04-05 12:36 | NUR ---
Nursing note: Pt in dining room at time of AM med pass and assessment. She is pleasant, compliant with meds whole and cooperative with assessment. She denies having any pain at time of assessment. She is interactive with staff. She is currently in the day room watching TV. Will continue to monitor.
--- NOTE | 2021-04-05 13:42 | NUR ---
WEEKLY ACTIVITY THERAPY NOTE Date of Admission:02/16/21 Date of AT Assessment: 02/17 Precipitating behaviors that initiated intake and admission:putting self on floor, combative towards staff, refusing O2, threw medications, expresses she wants to & removes O2 Goal aimed: increase socialization and engagement Initial Goal: Pt will participate in at least three individual or group Activity Therapy sessions per week Weekly progress towards goal: achieved, /3 Group participation level: 2 min, 1 mod Weekly highlights: answered all would you rather questions and participated in some exercises , when directly prompted she would participate in high low card game Saturday Behaviors observed: taking off nasal cannula, direct prompting Plan: change goal to: Pt will participate in at least three Activity Therapy sessions per week with moderate engagement Beneficial adaptations: direct prompting
[2021-04-05 15:44] VITALS: BP 117/58
--- NOTE | 2021-04-05 16:19 | NUR ---
Treatment team update: Pt is eating a little over 75% of meals and sleeping on average 8 hours. It was noted and video reviewed that pt placed herself on the floor around 1800. Pt is more cooperative and medication compliant. Pt has been more interactive with peers and even attempts to re-direct other peers when sitting in the day room. Nursing continues to check records for pt Keppra levels as it has been three days since it was drawn. Pt has attended 4 groups with minimal participation and needing some direct prompting. Pt family has refused DPOA rights and the courts will have to assign a guardian for pt in order to aid on placement for pt.
--- NOTE | 2021-04-05 16:28 | TX PLAN ---
Interdisciplinary Tx Plan Admission Information Feb 16, 2021 at 15:29 Legal Status (on Admission): Voluntary DPOA/Guardian Name: Patel Moise Contact Other Contact Name: Chasity Nazario Other Contact Verified Code Status: DNR Allergies: Coded Allergies: butorphanol (Verified Allergy, Unknown, 02/13/20) cefoxitin (Verified Allergy, Unknown, 02/13/20) codeine (Verified Allergy, Unknown, 02/13/20) gluten (Verified Allergy, Unknown, 02/13/20) lactose (Verified Allergy, Unknown, 02/13/20) Diagnoses Primary Diagnosis: Bipolar D/O mixed Reasons for Admission: Suicidal ideation, Poor impulse control Problem in Patient's Words: N/A Additional Admission Comments: According to the intake, pt is putting herself on the floor, combative towards staff, refusing oxygen/removes the tubing, throwing medications, expressed that she wants to . Problems Active Problems: putting self on floor removing oxygen Inactive Problems: medication compliant Pt Strengths/Limitations Ability for [place]: Poor Cognitive Functioning/Ability: Fair Communication Skills/Ability: Fair Financial Resources: Fair Insight/Judgement: Poor Intellectual Ability: Fair Physical Health: Poor Social Skills: Poor Stability in Family: Poor Stability in School/Work: Poor Verbal Skills: Fair Discharge Criteria Discharge Criteria: Able meet basic life need, Adequate arrangements @DC, Improved behavior, Improved mood/thought Preliminary Discharge Plan Preliminary DC Plan: Current Living Arrange. Special Precautions Fall Risk: Moderate Initial D/C Plan Pt will return to [facility] once stable Identified Discharge Needs: None noted Currently Utilized Resources Currently Utilized Resources/P: Primary Care Physician Telehealth for psychiatry Referrals Community Resources: None Identified Problems/Hx/Goals Objectives/Short-Term Goals Short Term Goals: Dec. Outbursts, Medication Stabilization, Monitor Med Effects, Promote Coping Skill Short Term Goals in Patient's: N/A Interventions/Frequency Staff Interventions/Frequency&: Psychiatrist to assess pt at least 3x per week for medication management. Social Work to assess pt least 2x per week to identify barriers to care and discharge planning goals. Nursing to assess pt medication effect, behavior modification and complete 15 minute checks daily. Encourage participation in group activities (if applicable) or 1:1 engagement based off Activity Dept goals. 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 Education: Pt graduated high school in 1969 Community Follow-up Primary Care Physician Telehealth Treatment Plan Explained Patient/Combine Driver had this treatment plan explained to him/her as indicated by the signature below and has been given the opportunity to ask questions and make suggestions: Date: Patient/Combine Driver Signature: Status Update Update Pt is eating a little over 75% of meals and sleeping on average 8 hours. It was noted and video reviewed that pt placed herself on the floor around 1800. Pt is more cooperative and medication compliant. Pt has been more interactive with peers and even attempts to re-direct other peers when sitting in the day room. Nursing continues to check records for pt Keppra levels as it has been three days since it was drawn. Pt has attended 4 groups with minimal participation and needing some direct prompting. Pt family has refused DPOA rights and the courts will have to assign a guardian for pt in order to aid on placement for pt. [place] BAUTISTA Apr 05, 2021 16:28
--- NOTE | 2021-04-05 20:39 | PDOC ---
Exam Note: Napoleon Note: Please also refer to the separate dictated note~for this date of service dictated separately.~Patient seen individually. Discussed the patient with Nursing staff reviewed the chart.~Reviewed interim history and current functioning. Reviewed vital signs,~Labs/ Radiology~and current medications noted below. Continue current treatment with the changes noted in the dictated addendum note Assessment: Vital Signs/I&O: Vital Signs Date Time Temp Pulse Resp B/P (MAP) Pulse Ox O2 Delivery O2 Flow Rate FiO2 04/05/21 15:44 98.9 95 20 117/58 (77) 100 Nasal Cannula 2.0 I & O 04/04/21 04/04/21 04/05/21 15:00 23:00 07:00 Intake Total 1317 ml 607 ml Balance 1317 ml 607 ml Labs: Laboratory Tests Test 04/05/21 06:00 SARS-CoV-2 (PCR) Not detected (NOT DETECTD) Current Medications: Meds: Laboratory Tests Test 04/05/21 06:00 Coronavirus (COVID-19)(PCR) Not detected Current Medications Medications (Trade) Dose Ordered Sig/Mya Route PRN Reason Start Time Stop Time Status Last Admin Dose Admin Acetaminophen (Tylenol) 650 mg PRN Q6HRS PRN PO MILD PAIN / TEMP > 100.3'F 02/16/21 15:45 03/04/21 09:21 DC 02/18/21 06:31 Multi-Ingredient Ointment (Analgesic [place]) 1 debra PRN QID PRN TP MUSCLE PAIN 02/16/21 15:45 03/04/21 09:21 DC Al Hydroxide/Mg Hydroxide (Mylanta Plus Xs) 15 ml PRN AFTMEALHC PRN PO DYSPEPSIA 02/16/21 15:45 03/04/21 22:05 Magnesium Hydroxide (Milk Of Magnesia) 2,400 mg PRN QHS PRN PO 1ST CHOICE CONSTIPATION 02/16/21 15:45 03/04/21 09:21 DC Acetaminophen (Tylenol) 1,000 mg Q6HRS PRN PO pain or fever 02/16/21 17:00 02/16/21 17:35 DC Acetaminophen (Tylenol) 500 mg Q4HRS PRN PO MILD PAIN 1-3 02/16/21 17:00 02/16/21 17:36 DC Bisacodyl (Dulcolax Tab) 5 mg PRN DAILY PRN PO 2ND CHOICE CONSTIPATION 02/16/21 17:00 03/04/21 09:21 DC Vitamin D (Vitamin D3) 50,000 unit WEEKLY PO 02/22/21 09:00 03/04/21 09:21 DC 02/22/21 07:16 Clonazepam (KlonoPIN) 0.5 mg BID PO 02/16/21 21:00 02/27/21 19:54 DC 02/27/21 10:11 Dicyclomine HCl (Bentyl) 20 mg TID PO 02/16/21 21:00 03/04/21 09:21 DC 03/03/21 21:07 Diphenoxylate HCl/ Atropine (Lomotil) 2 tab BID PO 02/16/21 21:00 03/04/21 09:21 DC 03/03/21 21:08 Divalproex Sodium (Depakote Er) 1,000 mg HS PO 02/16/21 21:00 03/07/21 20:15 DC 03/04/21 21:43 Duloxetine HCl (Cymbalta) 30 mg BID PO 02/16/21 21:00 03/07/21 20:15 DC 03/06/21 08:14 Fluticasone Propionate (Flonase) 2 spray DAILY NS 02/17/21 09:00 04/03/21 08:32 Furosemide (Lasix) 20 mg DAILY PO 02/17/21 09:00 03/04/21 09:21 DC 03/03/21 08:32 Gabapentin (Neurontin) 300 mg QID PO 02/16/21 17:00 04/05/21 17:36 Hydroxyurea (Hydrea) 1,000 mg DAILY PO 02/17/21 09:00 04/05/21 09:00 Levetiracetam (Keppra) 250 mg BID PO 02/16/21 21:00 03/02/21 14:48 DC 03/02/21 09:54 Lidocaine (Lidoderm) 1 patch DAILY TP 02/17/21 09:00 02/17/21 09:24 DC Al Hydroxide/Mg Hydroxide (Mylanta Plus Xs) 15 ml PRN AFTMEALHC PRN PO DYSPEPSIA 02/16/21 17:00 02/16/21 17:36 DC Mirabegron (Myrbetriq) 50 mg DAILY PO 02/17/21 09:00 03/04/21 09:21 DC 03/03/21 08:30 Nystatin (Nystop) 1 debra BID TP 02/16/21 21:00 04/05/21 08:49 Pantoprazole Sodium (Protonix) 40 mg DAILYAC PO 02/17/21 07:30 04/05/21 08:47 Potassium Chloride (Klor-Con) 40 meq DAILY PO 02/17/21 09:00 03/04/21 09:21 DC 03/03/21 08:32 Sulfasalazine (Azulfidine) 500 mg TID PO 02/16/21 21:00 03/07/21 20:15 DC 03/06/21 13:05 Trazodone HCl (Desyrel) 50 mg QHS PO 02/16/21 21:00 04/04/21 20:36 Non-Formulary Medication (Albuterol Sulfate (Albuterol Sulfate Conc Neb Soln)) 1 vial PRN Q4HRS PRN NEB SHORTNESS OF BREATH 02/16/21 17:00 02/16/21 17:49 DC Ascorbic Acid (Vitamin C) 1,000 mg DAILY PO 02/17/21 09:00 03/04/21 09:21 DC 03/03/21 08:34 Diltiazem HCl (Cardizem) 60 mg BID PO 02/16/21 21:00 04/05/21 08:48 Lactobacillus Rhamnosus (Culturelle) 1 cap DAILY PO 02/17/21 09:00 03/04/21 09:21 DC 03/03/21 08:32 Amylase/Lipase/ Protease (Zenpep 10,000) 1 cap TIDBFRMEAL PO 02/17/21 07:30 04/05/21 17:35 Non-Formulary Medication (Magnesium Hydroxide (Milk Of Magnesia)) 2,400 mg PRN DAILY PRN PO CONSTIPATION 02/16/21 17:00 02/16/21 17:37 DC Magnesium Oxide (Magnesium Oxide) 400 mg DAILY PO 02/17/21 09:00 03/04/21 09:21 DC 03/03/21 08:31 Non-Formulary Medication (Methyl Salicylate/ Menthol (Analgesic [place])) 1 debra PRN Q6HRS PRN TP MUSCLE PAIN 02/16/21 17:00 02/16/21 17:37 DC Non-Formulary Medication (Umeclidinium [place] (Incruse Ellipta)) 62.5 mcg DAILY IH 02/17/21 09:00 02/16/21 17:49 DC Non-Formulary Medication (Zinc Gluconate ) 50 mg DAILY PO 02/17/21 09:00 02/16/21 17:46 DC Albuterol/ Ipratropium (Duoneb) 3 ml RTQID NEB 02/16/21 20:00 02/17/21 19:52 DC Albuterol Sulfate (Ventolin) 2.5 mg PRN Q4HRS PRN NEB SHORTNESS OF BREATH 02/16/21 18:00 Influenza Virus Vaccine Quadrival (Flulaval Quad [id number] Syringe) 0.5 ml ONCE ONCE VAX IM 02/17/21 09:00 02/17/21 09:01 DC 02/17/21 09:21 Lidocaine (Lidoderm) 1 patch DAILY PRN TP pain 02/17/21 09:30 03/29/21 12:01 DC 03/28/21 08:37 Albuterol/ Ipratropium (Combivent Respimat 20-100 Mcg) 1 puff RTQID INH 02/17/21 20:00 04/05/21 17:35 Sertraline HCl (Zoloft) 25 mg DAILY PO 02/22/21 09:00 02/24/21 10:00 DC 02/24/21 09:59 Sertraline HCl (Zoloft) 50 mg DAILY PO 02/25/21 09:00 03/01/21 18:30 DC 03/01/21 10:07 Olanzapine (ZyPREXA ZYDIS) 5 mg 1X ONCE PO 02/26/21 12:03 02/26/21 12:09 DC 02/26/21 12:25 Clonazepam (KlonoPIN) 0.5 mg DAILY PO 02/28/21 09:00 03/02/21 07:00 DC 03/01/21 10:07 Bupropion HCl (Wellbutrin Xl) 150 mg DAILY PO 03/02/21 09:00 03/08/21 15:46 DC 03/08/21 08:41 Levetiracetam (Keppra) 250 mg DAILY PO 03/03/21 09:00 04/05/21 08:47 Aripiprazole (Abilify) 5 mg DAILY PO 03/05/21 09:00 04/05/21 08:48 Ondansetron HCl (Zofran Odt) 4 mg PRN Q4HRS PRN PO NAUSEA/VOMITING 03/06/21 19:30 04/02/21 09:23 Potassium Chloride (Klor-Con) 30 meq BID PO 03/07/21 09:00 04/05/21 08:48 Divalproex Sodium (Depakote Er) 1,000 mg 1700 PO 03/08/21 17:00 03/12/21 00:01 DC 03/11/21 17:27 Duloxetine HCl (Cymbalta) 30 mg 0900,1700 PO 03/08/21 17:00 04/05/21 17:36 Sulfasalazine (Azulfidine) 500 mg 0900,1300,1700 PO 03/08/21 09:00 04/05/21 17:36 Bupropion HCl (Wellbutrin Xl) 300 mg DAILY PO 03/09/21 09:00 04/05/21 08:50 Potassium Chloride (Klor-Con) 40 meq 1630,1730 PO 03/08/21 16:30 03/08/21 18:04 DC 03/08/21 16:57 Potassium Chloride (Klor-Con) 40 meq 1700,1800 PO 03/08/21 17:15 03/08/21 18:04 DC 03/08/21 17:56 Divalproex Sodium (Depakote Sprinkles) 500 mg BID PO 03/12/21 09:00 04/05/21 08:48 Clotrimazole (Mycelex-7) 1 debra QHS VG 03/18/21 21:00 03/25/21 20:59 DC 03/24/21 20:20 Dicyclomine HCl (Bentyl) 20 mg TID PO 03/18/21 21:00 04/05/21 12:08 Diphenoxylate HCl/ Atropine (Lomotil) 2 tab BID PO 03/18/21 21:00 04/05/21 08:48 Lidocaine (Lidoderm) 1 patch PRN DAILY PRN TP pain 03/29/21 12:15 I have reviewed the current psychotropics carefully including drug interactions. Risk benefit ratio favors no change other than as noted in my dictated progress note. Diagnosis: Problems: (1) Mild cognitive impairment (2) Impulse control disorder, unspecified (3) Anxiety disorder, unspecified (4) Bipolar disorder, curr episode mixed, severe, with psychotic features (5) Bipolar 1 disorder, depressed NITHIN STEVENS MD Apr 05, 2021 20:39
[2021-04-05] MEDS: traZODone 50 MG TABLET. PO SCH (21:17)
[2021-04-06 05:40] VITALS: BP 141/72
[2021-04-06] MEDS: IPRATROPIUM/ALBUTEROL 20/100mcg/INH INHALER. INH SCH ×4 (08:41→20:00)
[2021-04-06] MEDS: NYSTATIN TOPICAL POWDER 15GM BOTTLE. TP SCH ×2 (08:41→20:25)
[2021-04-06] MEDS: FLUTICASONE 50MCG/NASAL SPRAY 16GM BOTTLE. NS SCH (08:41)
[2021-04-06] MEDS: PANTOPRAZOLE 40 MG TABLET. PO SCH (08:42)
[2021-04-06] MEDS: buPROPion XL 300 MG TAB.ER.24H. PO SCH (08:42)
[2021-04-06] MEDS: levETIRAcetam 250 MG TABLET PO SCH (08:42)
[2021-04-06] MEDS: POTASSIUM CHLORIDE 10 MEQ TABLET.ER. PO SCH ×2 (08:42→20:22)
[2021-04-06] MEDS: LIPASE/PROTEAS/AMYLAS 10/32/42 CAPSULE.DR. PO SCH ×3 (08:42→17:27)
[2021-04-06] MEDS: DICYCLOMINE HCL 20 MG TABLET PO SCH ×3 (08:42→20:21)
[2021-04-06] MEDS: GABAPENTIN 300 MG CAPSULE. PO SCH ×4 (08:42→20:21)
[2021-04-06] MEDS: DIPHENOXYLATE/ATROPINE TABLET. PO SCH ×2 (08:43→20:22)
[2021-04-06] MEDS: dilTIAZem HCL 30 MG TABLET PO SCH ×2 (08:43→20:21)
[2021-04-06] MEDS: DIVALPROEX 125 MG CAP.SPRINK PO SCH ×2 (08:43→20:21)
[2021-04-06] MEDS: sulfaSALAzine 500 MG TABLET PO SCH ×3 (08:43→17:27)
[2021-04-06] MEDS: DULoxetine HCL 30 MG CAPSULE.DR PO SCH ×2 (08:43→17:27)
[2021-04-06] MEDS: ARIPiprazole 5 MG TABLET PO SCH (08:43)
[2021-04-06] MEDS: HYDROXYUREA 500 MG CAPSULE PO SCH (09:00)
--- NOTE | 2021-04-06 10:42 | NUR ---
Nursing note: Pt in dining room at time of AM med pass and assessment. She is pleasant, compliant with meds whole and cooperative with assessment. She denies having any pain/concerns at time of assessment. She is interactive with staff and peers. She is currently resting quietly in her room. Will continue to monitor.
[2021-04-06 15:31] VITALS: BP 101/65
[2021-04-06] MEDS: traZODone 50 MG TABLET. PO SCH (20:22)
--- NOTE | 2021-04-06 21:04 | PDOC ---
Exam Note: [place] Note: Please also refer to the separate dictated note~for this date of service dictated separately.~Patient seen individually. Discussed the patient with Nursing staff reviewed the chart.~Reviewed interim history and current functioning. Reviewed vital signs,~Labs/ Radiology~and current medications noted below. Continue current treatment with the changes noted in the dictated addendum note Assessment: Vital Signs/I&O: Vital Signs Date Time Temp Pulse Resp B/P (MAP) Pulse Ox O2 Delivery O2 Flow Rate FiO2 04/06/21 20:21 90 101/65 04/06/21 15:31 98.4 18 91 2.0 04/05/21 15:44 Nasal Cannula I & O 0 04/05/21 04/05/21 04/06/21 15:00 23:00 07:00 Intake Total 720 ml 600 ml Balance 720 ml 600 ml Current Medications: Meds: Current Medications Medications (Trade) Dose Ordered Sig/Mya Route PRN Reason Start Time Stop Time Status Last Admin Dose Admin Acetaminophen (Tylenol) 650 mg PRN Q6HRS PRN PO MILD PAIN / TEMP > 100.3'F 02/16/21 15:45 03/04/21 09:21 DC 02/18/21 06:31 Multi-Ingredient Ointment (Analgesic [place]) 1 debra PRN QID PRN TP MUSCLE PAIN 02/16/21 15:45 03/04/21 09:21 DC Al Hydroxide/Mg Hydroxide (Mylanta Plus Xs) 15 ml PRN AFTMEALHC PRN PO DYSPEPSIA 02/16/21 15:45 03/04/21 22:05 Magnesium Hydroxide (Milk Of Magnesia) 2,400 mg PRN QHS PRN PO 1ST CHOICE CONSTIPATION 02/16/21 15:45 03/04/21 09:21 DC Acetaminophen (Tylenol) 1,000 mg Q6HRS PRN PO pain or fever 02/16/21 17:00 02/16/21 17:35 DC Acetaminophen (Tylenol) 500 mg Q4HRS PRN PO MILD PAIN 1-3 02/16/21 17:00 02/16/21 17:36 DC Bisacodyl (Dulcolax Tab) 5 mg PRN DAILY PRN PO 2ND CHOICE CONSTIPATION 02/16/21 17:00 03/04/21 09:21 DC Vitamin D (Vitamin D3) 50,000 unit WEEKLY PO 10/13/21 09:00 03/04/21 09:21 DC 02/22/21 07:16 Clonazepam (KlonoPIN) 0.5 mg BID PO 02/16/21 21:00 02/27/21 19:54 DC 02/27/21 10:11 Dicyclomine HCl (Bentyl) 20 mg TID PO 02/16/21 21:00 03/04/21 09:21 DC 03/03/21 21:07 Diphenoxylate HCl/ Atropine (Lomotil) 2 tab BID PO 02/16/21 21:00 03/04/21 09:21 DC 03/03/21 21:08 Divalproex Sodium (Depakote Er) 1,000 mg HS PO 02/16/21 21:00 03/07/21 20:15 DC 03/04/21 21:43 Duloxetine HCl (Cymbalta) 30 mg BID PO 02/16/21 21:00 03/07/21 20:15 DC 03/06/21 08:14 Fluticasone Propionate (Flonase) 2 spray DAILY NS 02/17/21 09:00 04/06/21 08:41 Furosemide (Lasix) 20 mg DAILY PO 02/17/21 09:00 03/04/21 09:21 DC 03/03/21 08:32 Gabapentin (Neurontin) 300 mg QID PO 02/16/21 17:00 04/06/21 20:21 Hydroxyurea (Hydrea) 1,000 mg DAILY PO 02/17/21 09:00 04/06/21 09:00 Levetiracetam (Keppra) 250 mg BID PO 02/16/21 21:00 03/02/21 14:48 DC 03/02/21 09:54 Lidocaine (Lidoderm) 1 patch DAILY TP 02/17/21 09:00 02/17/21 09:24 DC Al Hydroxide/Mg Hydroxide (Mylanta Plus Xs) 15 ml PRN AFTMEALHC PRN PO DYSPEPSIA 02/16/21 17:00 02/16/21 17:36 DC Mirabegron (Myrbetriq) 50 mg DAILY PO 02/17/21 09:00 03/04/21 09:21 DC 03/03/21 08:30 Nystatin (Nystop) 1 debra BID TP 02/16/21 21:00 04/06/21 20:25 Pantoprazole Sodium (Protonix) 40 mg DAILYAC PO 02/17/21 07:30 04/06/21 08:42 Potassium Chloride (Klor-Con) 40 meq DAILY PO 02/17/21 09:00 03/04/21 09:21 DC 03/03/21 08:32 Sulfasalazine (Azulfidine) 500 mg TID PO 02/16/21 21:00 03/07/21 20:15 DC 03/06/21 13:05 Trazodone HCl (Desyrel) 50 mg QHS PO 02/16/21 21:00 04/06/21 20:22 Non-Formulary Medication (Albuterol Sulfate (Albuterol Sulfate Conc Neb Soln)) 1 vial PRN Q4HRS PRN NEB SHORTNESS OF BREATH 02/16/21 17:00 02/16/21 17:49 DC Ascorbic Acid (Vitamin C) 1,000 mg DAILY PO 02/17/21 09:00 03/04/21 09:21 DC 03/03/21 08:34 Diltiazem HCl (Cardizem) 60 mg BID PO 02/16/21 21:00 04/06/21 20:21 Lactobacillus Rhamnosus (Culturelle) 1 cap DAILY PO 02/17/21 09:00 03/04/21 09:21 DC 03/03/21 08:32 Amylase/Lipase/ Protease (Zenpep 10,000) 1 cap TIDBFRMEAL PO 02/17/21 07:30 04/06/21 17:27 Non-Formulary Medication (Magnesium Hydroxide (Milk Of Magnesia)) 2,400 mg PRN DAILY PRN PO CONSTIPATION 02/16/21 17:00 02/16/21 17:37 DC Magnesium Oxide (Magnesium Oxide) 400 mg DAILY PO 02/17/21 09:00 03/04/21 09:21 DC 03/03/21 08:31 Non-Formulary Medication (Methyl Salicylate/ Menthol (Analgesic [place])) 1 debra PRN Q6HRS PRN TP MUSCLE PAIN 02/16/21 17:00 02/16/21 17:37 DC Non-Formulary Medication (Umeclidinium [place] (Incruse Ellipta)) 62.5 mcg DAILY IH 02/17/21 09:00 02/16/21 17:49 DC Non-Formulary Medication (Zinc Gluconate ) 50 mg DAILY PO 02/17/21 09:00 02/16/21 17:46 DC Albuterol/ Ipratropium (Duoneb) 3 ml RTQID NEB 02/16/21 20:00 02/17/21 19:52 DC Albuterol Sulfate (Ventolin) 2.5 mg PRN Q4HRS PRN NEB SHORTNESS OF BREATH 02/16/21 18:00 Influenza Virus Vaccine Quadrival (Flulaval Quad [id number] Syringe) 0.5 ml ONCE ONCE VAX IM 02/17/21 09:00 02/17/21 09:01 DC 02/17/21 09:21 Lidocaine (Lidoderm) 1 patch DAILY PRN TP pain 02/17/21 09:30 03/29/21 12:01 DC 03/28/21 08:37 Albuterol/ Ipratropium (Combivent Respimat 20-100 Mcg) 1 puff RTQID INH 02/17/21 20:00 04/06/21 17:26 Sertraline HCl (Zoloft) 25 mg DAILY PO 02/22/21 09:00 02/24/21 10:00 DC 02/24/21 09:59 Sertraline HCl (Zoloft) 50 mg DAILY PO 02/25/21 09:00 03/01/21 18:30 DC 03/01/21 10:07 Olanzapine (ZyPREXA ZYDIS) 5 mg 1X ONCE PO 02/26/21 12:03 02/26/21 12:09 DC 02/26/21 12:25 Clonazepam (KlonoPIN) 0.5 mg DAILY PO 02/28/21 09:00 03/02/21 07:00 DC 03/01/21 10:07 Bupropion HCl (Wellbutrin Xl) 150 mg DAILY PO 03/02/21 09:00 03/08/21 15:46 DC 03/08/21 08:41 Levetiracetam (Keppra) 250 mg DAILY PO 03/03/21 09:00 04/06/21 08:42 Aripiprazole (Abilify) 5 mg DAILY PO 03/05/21 09:00 04/06/21 08:43 Ondansetron HCl (Zofran Odt) 4 mg PRN Q4HRS PRN PO NAUSEA/VOMITING 03/06/21 19:30 04/02/21 09:23 Potassium Chloride (Klor-Con) 30 meq BID PO 03/07/21 09:00 04/06/21 20:22 Divalproex Sodium (Depakote Er) 1,000 mg 1700 PO 03/08/21 17:00 03/12/21 00:01 DC 03/11/21 17:27 Duloxetine HCl (Cymbalta) 30 mg 0900,1700 PO 03/08/21 17:00 04/06/21 17:27 Sulfasalazine (Azulfidine) 500 mg 0900,1300,1700 PO 03/08/21 09:00 04/06/21 17:27 Bupropion HCl (Wellbutrin Xl) 300 mg DAILY PO 03/09/21 09:00 04/06/21 08:42 Potassium Chloride (Klor-Con) 40 meq 1630,1730 PO 03/08/21 16:30 03/08/21 18:04 DC 03/08/21 16:57 Potassium Chloride (Klor-Con) 40 meq 1700,1800 PO 03/08/21 17:15 03/08/21 18:04 DC 03/08/21 17:56 Divalproex Sodium (Depakote Sprinkles) 500 mg BID PO 03/12/21 09:00 04/06/21 20:21 Clotrimazole (Mycelex-7) 1 debra QHS VG 03/18/21 21:00 03/25/21 20:59 DC 03/24/21 20:20 Dicyclomine HCl (Bentyl) 20 mg TID PO 03/18/21 21:00 04/06/21 20:21 Diphenoxylate HCl/ Atropine (Lomotil) 2 tab BID PO 03/18/21 21:00 04/06/21 20:22 Lidocaine (Lidoderm) 1 patch PRN DAILY PRN TP pain 03/29/21 12:15 I have reviewed the current psychotropics carefully including drug interactions. Risk benefit ratio favors no change other than as noted in my dictated progress note. Diagnosis: Problems: (1) Mild cognitive impairment (2) Impulse control disorder, unspecified (3) Anxiety disorder, unspecified (4) Bipolar disorder, curr episode mixed, severe, with psychotic features (5) Bipolar 1 disorder, depressed NITHIN STEVENS MD Apr 06, 2021 21:04
--- NOTE | 2021-04-06 23:12 | NUR ---
Before going to bed pt sat in the day room watching TV. SHe has been pleasant and cooperative with staff and has had no behaviors. She took meds whole 2 at a time floated in applesauce.
[2021-04-07 06:10] VITALS: BP 116/76
[2021-04-07] MEDS: IPRATROPIUM/ALBUTEROL 20/100mcg/INH INHALER. INH SCH ×4 (08:00→20:40)
[2021-04-07] MEDS: HYDROXYUREA 500 MG CAPSULE PO SCH (08:10)
[2021-04-07] MEDS: levETIRAcetam 250 MG TABLET PO SCH (08:10)
[2021-04-07] MEDS: dilTIAZem HCL 30 MG TABLET PO SCH ×2 (08:10→20:41)
[2021-04-07] MEDS: DULoxetine HCL 30 MG CAPSULE.DR PO SCH ×2 (08:10→16:20)
[2021-04-07] MEDS: ARIPiprazole 5 MG TABLET PO SCH (08:11)
[2021-04-07] MEDS: DICYCLOMINE HCL 20 MG TABLET PO SCH ×3 (08:11→20:42)
[2021-04-07] MEDS: DIVALPROEX 125 MG CAP.SPRINK PO SCH ×2 (08:11→20:43)
[2021-04-07] MEDS: PANTOPRAZOLE 40 MG TABLET. PO SCH (08:11)
[2021-04-07] MEDS: sulfaSALAzine 500 MG TABLET PO SCH ×3 (08:11→16:20)
[2021-04-07] MEDS: LIPASE/PROTEAS/AMYLAS 10/32/42 CAPSULE.DR. PO SCH ×3 (08:11→16:20)
[2021-04-07] MEDS: POTASSIUM CHLORIDE 10 MEQ TABLET.ER. PO SCH ×2 (08:11→20:43)
[2021-04-07] MEDS: DIPHENOXYLATE/ATROPINE TABLET. PO SCH ×2 (08:12→20:42)
[2021-04-07] MEDS: GABAPENTIN 300 MG CAPSULE. PO SCH ×4 (08:12→20:40)
[2021-04-07] MEDS: FLUTICASONE 50MCG/NASAL SPRAY 16GM BOTTLE. NS SCH (08:16)
[2021-04-07] MEDS: buPROPion XL 300 MG TAB.ER.24H. PO SCH (08:41)
[2021-04-07] MEDS: NYSTATIN TOPICAL POWDER 15GM BOTTLE. TP SCH ×2 (08:41→20:43)
--- NOTE | 2021-04-07 08:59 | NUR ---
Pt pleasant and appropriate on the unit this morning. She was compliant with whole medications, showing no difficulty swallowing tablets. She is absent of SI/HI/VH/AH/delusions/pain at time of assessment. Her interactions with others have been appropriate and she has been absent of disruptive behaviors on the unit. Plan of care continues, will pass to next shift.
[2021-04-07 15:21] VITALS: BP 109/68
--- NOTE | 2021-04-07 20:25 | PDOC ---
Exam Note: Napoleon Note: Please also refer to the separate dictated note~for this date of service dictated separately.~Patient seen individually. Discussed the patient with Nursing staff reviewed the chart.~Reviewed interim history and current functioning. Reviewed vital signs,~Labs/ Radiology~and current medications noted below. Continue current treatment with the changes noted in the dictated addendum note Assessment: Vital Signs/I&O: Vital Signs Date Time Temp Pulse Resp B/P (MAP) Pulse Ox O2 Delivery O2 Flow Rate FiO2 04/07/21 15:21 98.8 86 18 109/68 (82) 96 Room Air 04/07/21 06:10 2.0 I & O 04/06/21 04/06/21 04/07/21 15:00 23:00 07:00 Intake Total 600 ml 600 ml Balance 600 ml 600 ml Current Medications: Meds: Current Medications Medications (Trade) Dose Ordered Sig/Mya Route PRN Reason Start Time Stop Time Status Last Admin Dose Admin Acetaminophen (Tylenol) 650 mg PRN Q6HRS PRN PO MILD PAIN / TEMP > 100.3'F 02/16/21 15:45 03/04/21 09:21 DC 02/18/21 06:31 Multi-Ingredient Ointment (Analgesic [place]) 1 debra PRN QID PRN TP MUSCLE PAIN 02/16/21 15:45 03/04/21 09:21 DC Al Hydroxide/Mg Hydroxide (Mylanta Plus Xs) 15 ml PRN AFTMEALHC PRN PO DYSPEPSIA 02/16/21 15:45 03/04/21 22:05 Magnesium Hydroxide (Milk Of Magnesia) 2,400 mg PRN QHS PRN PO 1ST CHOICE CONSTIPATION 02/16/21 15:45 03/04/21 09:21 DC Acetaminophen (Tylenol) 1,000 mg Q6HRS PRN PO pain or fever 02/16/21 17:00 02/16/21 17:35 DC Acetaminophen (Tylenol) 500 mg Q4HRS PRN PO MILD PAIN 1-3 02/16/21 17:00 02/16/21 17:36 DC Bisacodyl (Dulcolax Tab) 5 mg PRN DAILY PRN PO 2ND CHOICE CONSTIPATION 02/16/21 17:00 03/04/21 09:21 DC Vitamin D (Vitamin D3) 50,000 unit WEEKLY PO 02/22/21 09:00 03/04/21 09:21 DC 02/22/21 07:16 Clonazepam (KlonoPIN) 0.5 mg BID PO 02/16/21 21:00 02/27/21 19:54 DC 02/27/21 10:11 Dicyclomine HCl (Bentyl) 20 mg TID PO 02/16/21 21:00 03/04/21 09:21 DC 03/03/21 21:07 Diphenoxylate HCl/ Atropine (Lomotil) 2 tab BID PO 02/16/21 21:00 03/04/21 09:21 DC 03/03/21 21:08 Divalproex Sodium (Depakote Er) 1,000 mg HS PO 02/16/21 21:00 03/07/21 20:15 DC 03/04/21 21:43 Duloxetine HCl (Cymbalta) 30 mg BID PO 02/16/21 21:00 03/07/21 20:15 DC 03/06/21 08:14 Fluticasone Propionate (Flonase) 2 spray DAILY NS 02/17/21 09:00 04/07/21 08:16 Furosemide (Lasix) 20 mg DAILY PO 02/17/21 09:00 03/04/21 09:21 DC 03/03/21 08:32 Gabapentin (Neurontin) 300 mg QID PO 02/16/21 17:00 04/07/21 16:20 Hydroxyurea (Hydrea) 1,000 mg DAILY PO 02/17/21 09:00 04/07/21 08:10 Levetiracetam (Keppra) 250 mg BID PO 02/16/21 21:00 03/02/21 14:48 DC 03/02/21 09:54 Lidocaine (Lidoderm) 1 patch DAILY TP 02/17/21 09:00 02/17/21 09:24 DC Al Hydroxide/Mg Hydroxide (Mylanta Plus Xs) 15 ml PRN AFTMEALHC PRN PO DYSPEPSIA 02/16/21 17:00 02/16/21 17:36 DC Mirabegron (Myrbetriq) 50 mg DAILY PO 02/17/21 09:00 03/04/21 09:21 DC 03/03/21 08:30 Nystatin (Nystop) 1 debra BID TP 02/16/21 21:00 04/07/21 08:41 Pantoprazole Sodium (Protonix) 40 mg DAILYAC PO 02/17/21 07:30 04/07/21 08:11 Potassium Chloride (Klor-Con) 40 meq DAILY PO 02/17/21 09:00 03/04/21 09:21 DC 03/03/21 08:32 Sulfasalazine (Azulfidine) 500 mg TID PO 02/16/21 21:00 03/07/21 20:15 DC 03/06/21 13:05 Trazodone HCl (Desyrel) 50 mg QHS PO 02/16/21 21:00 04/06/21 20:22 Non-Formulary Medication (Albuterol Sulfate (Albuterol Sulfate Conc Neb Soln)) 1 vial PRN Q4HRS PRN NEB SHORTNESS OF BREATH 02/16/21 17:00 02/16/21 17:49 DC Ascorbic Acid (Vitamin C) 1,000 mg DAILY PO 02/17/21 09:00 03/04/21 09:21 DC 03/03/21 08:34 Diltiazem HCl (Cardizem) 60 mg BID PO 02/16/21 21:00 04/07/21 08:10 Lactobacillus Rhamnosus (Culturelle) 1 cap DAILY PO 02/17/21 09:00 03/04/21 09:21 DC 03/03/21 08:32 Amylase/Lipase/ Protease (Zenpep 10,000) 1 cap TIDBFRMEAL PO 02/17/21 07:30 04/07/21 16:20 Non-Formulary Medication (Magnesium Hydroxide (Milk Of Magnesia)) 2,400 mg PRN DAILY PRN PO CONSTIPATION 02/16/21 17:00 02/16/21 17:37 DC Magnesium Oxide (Magnesium Oxide) 400 mg DAILY PO 02/17/21 09:00 03/04/21 09:21 DC 03/03/21 08:31 Non-Formulary Medication (Methyl Salicylate/ Menthol (Analgesic [place])) 1 debra PRN Q6HRS PRN TP MUSCLE PAIN 02/16/21 17:00 02/16/21 17:37 DC Non-Formulary Medication (Umeclidinium [place] (Incruse Ellipta)) 62.5 mcg DAILY IH 02/17/21 09:00 02/16/21 17:49 DC Non-Formulary Medication (Zinc Gluconate ) 50 mg DAILY PO 02/17/21 09:00 02/16/21 17:46 DC Albuterol/ Ipratropium (Duoneb) 3 ml RTQID NEB 02/16/21 20:00 02/17/21 19:52 DC Albuterol Sulfate (Ventolin) 2.5 mg PRN Q4HRS PRN NEB SHORTNESS OF BREATH 02/16/21 18:00 Influenza Virus Vaccine Quadrival (Flulaval Quad [id number] Syringe) 0.5 ml ONCE ONCE VAX IM 02/17/21 09:00 02/17/21 09:01 DC 02/17/21 09:21 Lidocaine (Lidoderm) 1 patch DAILY PRN TP pain 02/17/21 09:30 03/29/21 12:01 DC 03/28/21 08:37 Albuterol/ Ipratropium (Combivent Respimat 20-100 Mcg) 1 puff RTQID INH 02/17/21 20:00 04/07/21 16:00 Sertraline HCl (Zoloft) 25 mg DAILY PO 02/22/21 09:00 02/24/21 10:00 DC 02/24/21 09:59 Sertraline HCl (Zoloft) 50 mg DAILY PO 02/25/21 09:00 03/01/21 18:30 DC 03/01/21 10:07 Olanzapine (ZyPREXA ZYDIS) 5 mg 1X ONCE PO 02/26/21 12:03 02/26/21 12:09 DC 02/26/21 12:25 Clonazepam (KlonoPIN) 0.5 mg DAILY PO 02/28/21 09:00 03/02/21 07:00 DC 03/01/21 10:07 Bupropion HCl (Wellbutrin Xl) 150 mg DAILY PO 03/02/21 09:00 03/08/21 15:46 DC 03/08/21 08:41 Levetiracetam (Keppra) 250 mg DAILY PO 03/03/21 09:00 04/07/21 08:10 Aripiprazole (Abilify) 5 mg DAILY PO 03/05/21 09:00 04/07/21 08:11 Ondansetron HCl (Zofran Odt) 4 mg PRN Q4HRS PRN PO NAUSEA/VOMITING 03/06/21 19:30 04/02/21 09:23 Potassium Chloride (Klor-Con) 30 meq BID PO 03/07/21 09:00 04/07/21 08:11 Divalproex Sodium (Depakote Er) 1,000 mg 1700 PO 03/08/21 17:00 03/12/21 00:01 DC 03/11/21 17:27 Duloxetine HCl (Cymbalta) 30 mg 0900,1700 PO 03/08/21 17:00 04/07/21 16:20 Sulfasalazine (Azulfidine) 500 mg 0900,1300,1700 PO 03/08/21 09:00 04/07/21 16:20 Bupropion HCl (Wellbutrin Xl) 300 mg DAILY PO 03/09/21 09:00 04/07/21 08:41 Potassium Chloride (Klor-Con) 40 meq 1630,1730 PO 03/08/21 16:30 03/08/21 18:04 DC 03/08/21 16:57 Potassium Chloride (Klor-Con) 40 meq 1700,1800 PO 03/08/21 17:15 03/08/21 18:04 DC 03/08/21 17:56 Divalproex Sodium (Depakote Sprinkles) 500 mg BID PO 03/12/21 09:00 04/07/21 08:11 Clotrimazole (Mycelex-7) 1 debra QHS VG 03/18/21 21:00 03/25/21 20:59 DC 03/24/21 20:20 Dicyclomine HCl (Bentyl) 20 mg TID PO 03/18/21 21:00 04/07/21 12:17 Diphenoxylate HCl/ Atropine (Lomotil) 2 tab BID PO 03/18/21 21:00 04/07/21 08:12 Lidocaine (Lidoderm) 1 patch PRN DAILY PRN TP pain 03/29/21 12:15 I have reviewed the current psychotropics carefully including drug interactions. Risk benefit ratio favors no change other than as noted in my dictated progress note. Diagnosis: Problems: (1) Mild cognitive impairment (2) Impulse control disorder, unspecified (3) Anxiety disorder, unspecified (4) Bipolar disorder, curr episode mixed, severe, with psychotic features (5) Bipolar 1 disorder, depressed NITHIN STEVENS MD Apr 07, 2021 20:25
[2021-04-07] MEDS: traZODone 50 MG TABLET. PO SCH (20:41)
--- NOTE | 2021-04-07 23:01 | NUR ---
Patient is in her room on assumption of care, sleeping. She awakens easily to her name being called. She is flat, disorganized. Pleasant in her interactions with this nurse. Compliant with assessments and medications whole, a few at a time on a spoon. She has had no agitated or attention seeking behaviors so far this shift. Denies SI. Denies any pain or discomfort. Patient appears to be sleeping comfortably at present time. Will continue to monitor.
[2021-04-08 05:31] VITALS: BP 105/71
[2021-04-08] MEDS: IPRATROPIUM/ALBUTEROL 20/100mcg/INH INHALER. INH SCH ×4 (08:00→19:55)
--- NOTE | 2021-04-08 08:20 | PDOC ---
Exam Note: Napoleon Note: This note is a late entry for 04/05/2021 covers elements not covered in my initial note. Subjective: The patient was reviewed at treatment team meeting individually in the morning on 04/05/2021 with Lety Farley, Rosalva Hutton, and Archana Dillard (social work assistant), Jessie Naylor, Classroom Coordinator, Bessy, activity therapy, and Cassie BARR, discussed and reviewed the chart. We discussed the patients diagnoses, progress. The patient slept 7-1/4 hours previous night. Sleeping average is 8 hours. Her appetite is 55%. She has put herself on the floor the day before and no injuries noted. She is compliant with medications. Keppra level is awaited. She has attended 4 groups in the past one week. She gets a little irritable at times but redirects. Reportedly one of the other demented patients cursed her out per nursing report but the patient reacted within reason to this. Review of Systems: Impaired ambulation in Broda chair. Shortness of breath on O2 supplements. No CV, , eye, ENT system symptoms on review. Mental Status Exam: The patient is oriented to herself and situation. Speech coherent. Abstraction fair. Computation impaired. Language function intact. Mood and affect remains anxious. Laboratory Data: Reviewed. Impression: Bipolar disorder, depressed. Anxiety disorder unspecified. Impulse control disorder unspecified. Plan: No change from initial note. Assessment: Vital Signs/I&O: Vital Signs Date Time Temp Pulse Resp B/P (MAP) Pulse Ox O2 Delivery O2 Flow Rate FiO2 04/08/21 05:31 97.8 88 18 105/71 (82) 91 Nasal Cannula 2.0 I & O 04/07/21 04/07/21 04/08/21 15:00 23:00 07:00 Intake Total 840 ml 960 ml Balance 840 ml 960 ml Current Medications: Meds: Current Medications Medications (Trade) Dose Ordered Sig/Mya Route PRN Reason Start Time Stop Time Status Last Admin Dose Admin Acetaminophen (Tylenol) 650 mg PRN Q6HRS PRN PO MILD PAIN / TEMP > 100.3'F 02/16/21 15:45 03/04/21 09:21 DC 02/18/21 06:31 Multi-Ingredient Ointment (Analgesic [place]) 1 debra PRN QID PRN TP MUSCLE PAIN 02/16/21 15:45 03/04/21 09:21 DC Al Hydroxide/Mg Hydroxide (Mylanta Plus Xs) 15 ml PRN AFTMEALHC PRN PO DYSPEPSIA 02/16/21 15:45 03/04/21 22:05 Magnesium Hydroxide (Milk Of Magnesia) 2,400 mg PRN QHS PRN PO 1ST CHOICE CONSTIPATION 02/16/21 15:45 03/04/21 09:21 DC Acetaminophen (Tylenol) 1,000 mg Q6HRS PRN PO pain or fever 02/16/21 17:00 02/16/21 17:35 DC Acetaminophen (Tylenol) 500 mg Q4HRS PRN PO MILD PAIN 1-3 02/16/21 17:00 02/16/21 17:36 DC Bisacodyl (Dulcolax Tab) 5 mg PRN DAILY PRN PO 2ND CHOICE CONSTIPATION 02/16/21 17:00 03/04/21 09:21 DC Vitamin D (Vitamin D3) 50,000 unit WEEKLY PO 02/22/21 09:00 03/04/21 09:21 DC 02/22/21 07:16 Clonazepam (KlonoPIN) 0.5 mg BID PO 02/16/21 21:00 02/27/21 19:54 DC 02/27/21 10:11 Dicyclomine HCl (Bentyl) 20 mg TID PO 02/16/21 21:00 03/04/21 09:21 DC 03/03/21 21:07 Diphenoxylate HCl/ Atropine (Lomotil) 2 tab BID PO 02/16/21 21:00 03/04/21 09:21 DC 03/03/21 21:08 Divalproex Sodium (Depakote Er) 1,000 mg HS PO 02/16/21 21:00 03/07/21 20:15 DC 03/04/21 21:43 Duloxetine HCl (Cymbalta) 30 mg BID PO 02/16/21 21:00 03/07/21 20:15 DC 03/06/21 08:14 Fluticasone Propionate (Flonase) 2 spray DAILY NS 02/17/21 09:00 04/07/21 08:16 Furosemide (Lasix) 20 mg DAILY PO 02/17/21 09:00 03/04/21 09:21 DC 03/03/21 08:32 Gabapentin (Neurontin) 300 mg QID PO 02/16/21 17:00 04/07/21 20:40 Hydroxyurea (Hydrea) 1,000 mg DAILY PO 02/17/21 09:00 04/07/21 08:10 Levetiracetam (Keppra) 250 mg BID PO 02/16/21 21:00 03/02/21 14:48 DC 03/02/21 09:54 Lidocaine (Lidoderm) 1 patch DAILY TP 02/17/21 09:00 02/17/21 09:24 DC Al Hydroxide/Mg Hydroxide (Mylanta Plus Xs) 15 ml PRN AFTMEALHC PRN PO DYSPEPSIA 02/16/21 17:00 02/16/21 17:36 DC Mirabegron (Myrbetriq) 50 mg DAILY PO 02/17/21 09:00 03/04/21 09:21 DC 03/03/21 08:30 Nystatin (Nystop) 1 debra BID TP 02/16/21 21:00 04/07/21 20:43 Pantoprazole Sodium (Protonix) 40 mg DAILYAC PO 02/17/21 07:30 04/07/21 08:11 Potassium Chloride (Klor-Con) 40 meq DAILY PO 02/17/21 09:00 03/04/21 09:21 DC 03/03/21 08:32 Sulfasalazine (Azulfidine) 500 mg TID PO 02/16/21 21:00 03/07/21 20:15 DC 03/06/21 13:05 Trazodone HCl (Desyrel) 50 mg QHS PO 02/16/21 21:00 04/07/21 20:41 Non-Formulary Medication (Albuterol Sulfate (Albuterol Sulfate Conc Neb Soln)) 1 vial PRN Q4HRS PRN NEB SHORTNESS OF BREATH 02/16/21 17:00 02/16/21 17:49 DC Ascorbic Acid (Vitamin C) 1,000 mg DAILY PO 02/17/21 09:00 03/04/21 09:21 DC 03/03/21 08:34 Diltiazem HCl (Cardizem) 60 mg BID PO 02/16/21 21:00 04/07/21 20:41 Lactobacillus Rhamnosus (Culturelle) 1 cap DAILY PO 02/17/21 09:00 03/04/21 09:21 DC 03/03/21 08:32 Amylase/Lipase/ Protease (Zenpep 10,000) 1 cap TIDBFRMEAL PO 02/17/21 07:30 04/07/21 16:20 Non-Formulary Medication (Magnesium Hydroxide (Milk Of Magnesia)) 2,400 mg PRN DAILY PRN PO CONSTIPATION 02/16/21 17:00 02/16/21 17:37 DC Magnesium Oxide (Magnesium Oxide) 400 mg DAILY PO 02/17/21 09:00 03/04/21 09:21 DC 03/03/21 08:31 Non-Formulary Medication (Methyl Salicylate/ Menthol (Analgesic [place])) 1 debra PRN Q6HRS PRN TP MUSCLE PAIN 02/16/21 17:00 02/16/21 17:37 DC Non-Formulary Medication (Umeclidinium [place] (Incruse Ellipta)) 62.5 mcg DAILY IH 02/17/21 09:00 02/16/21 17:49 DC Non-Formulary Medication (Zinc Gluconate ) 50 mg DAILY PO 02/17/21 09:00 02/16/21 17:46 DC Albuterol/ Ipratropium (Duoneb) 3 ml RTQID NEB 02/16/21 20:00 02/17/21 19:52 DC Albuterol Sulfate (Ventolin) 2.5 mg PRN Q4HRS PRN NEB SHORTNESS OF BREATH 02/16/21 18:00 Influenza Virus Vaccine Quadrival (Flulaval Quad [id number] Syringe) 0.5 ml ONCE ONCE VAX IM 02/17/21 09:00 02/17/21 09:01 DC 02/17/21 09:21 Lidocaine (Lidoderm) 1 patch DAILY PRN TP pain 02/17/21 09:30 03/29/21 12:01 DC 03/28/21 08:37 Albuterol/ Ipratropium (Combivent Respimat 20-100 Mcg) 1 puff RTQID INH 02/17/21 20:00 04/07/21 20:40 Sertraline HCl (Zoloft) 25 mg DAILY PO 02/22/21 09:00 02/24/21 10:00 DC 02/24/21 09:59 Sertraline HCl (Zoloft) 50 mg DAILY PO 02/25/21 09:00 03/01/21 18:30 DC 03/01/21 10:07 Olanzapine (ZyPREXA ZYDIS) 5 mg 1X ONCE PO 02/26/21 12:03 02/26/21 12:09 DC 02/26/21 12:25 Clonazepam (KlonoPIN) 0.5 mg DAILY PO 02/28/21 09:00 03/02/21 07:00 DC 03/01/21 10:07 Bupropion HCl (Wellbutrin Xl) 150 mg DAILY PO 03/02/21 09:00 03/08/21 15:46 DC 03/08/21 08:41 Levetiracetam (Keppra) 250 mg DAILY PO 03/03/21 09:00 04/07/21 08:10 Aripiprazole (Abilify) 5 mg DAILY PO 03/05/21 09:00 04/07/21 08:11 Ondansetron HCl (Zofran Odt) 4 mg PRN Q4HRS PRN PO NAUSEA/VOMITING 03/06/21 19:30 04/02/21 09:23 Potassium Chloride (Klor-Con) 30 meq BID PO 03/07/21 09:00 04/07/21 20:43 Divalproex Sodium (Depakote Er) 1,000 mg 1700 PO 03/08/21 17:00 03/12/21 00:01 DC 03/11/21 17:27 Duloxetine HCl (Cymbalta) 30 mg 0900,1700 PO 03/08/21 17:00 04/07/21 16:20 Sulfasalazine (Azulfidine) 500 mg 0900,1300,1700 PO 03/08/21 09:00 04/07/21 16:20 Bupropion HCl (Wellbutrin Xl) 300 mg DAILY PO 03/09/21 09:00 04/07/21 08:41 Potassium Chloride (Klor-Con) 40 meq 1630,1730 PO 03/08/21 16:30 03/08/21 18:04 DC 03/08/21 16:57 Potassium Chloride (Klor-Con) 40 meq 1700,1800 PO 03/08/21 17:15 03/08/21 18:04 DC 03/08/21 17:56 Divalproex Sodium (Depakote Sprinkles) 500 mg BID PO 03/12/21 09:00 04/07/21 20:43 Clotrimazole (Mycelex-7) 1 debra QHS VG 03/18/21 21:00 03/25/21 20:59 DC 03/24/21 20:20 Dicyclomine HCl (Bentyl) 20 mg TID PO 03/18/21 21:00 04/07/21 20:42 Diphenoxylate HCl/ Atropine (Lomotil) 2 tab BID PO 03/18/21 21:00 04/07/21 20:42 Lidocaine (Lidoderm) 1 patch PRN DAILY PRN TP pain 03/29/21 12:15 I have reviewed the current psychotropics carefully including drug interactions. Risk benefit ratio favors no change other than as noted in my dictated progress note. Diagnosis: Problems: (1) Impulse control disorder, unspecified (2) Mild cognitive impairment (3) Anxiety disorder, unspecified (4) Bipolar disorder, curr episode mixed, severe, with psychotic features (5) Bipolar 1 disorder, depressed NITHIN STEVENS MD Apr 08, 2021 08:20
--- NOTE | 2021-04-08 08:33 | PDOC ---
Exam Note: Napoleon Note: This note is a late entry for 04/06/2021 covers elements not covered in my initial note. Subjective: The patient was seen individually in the evening of 04/06/2021 with Joshua BARR, discussed and reviewed the chart. The patient slept 8-1/4 hours previous night. She is oriented reasonably. She has been keeping her oxygen in place. Review of Systems: Impaired ambulation in Broda chair. Shortness of breath on O2 supplements. No CV, , eye, ENT system symptoms on review. Mental Status Exam: The patient is oriented to herself and situation. I met with her in the dayroom. Speech coherent. Abstraction fair. Computation impaired. Language function intact. Mood and affect labile. Laboratory Data: Reviewed. Impression: Bipolar disorder, depressed. Anxiety disorder unspecified. Impulse control disorder unspecified. Plan: No change from initial note. Assessment: Vital Signs/I&O: Vital Signs Date Time Temp Pulse Resp B/P (MAP) Pulse Ox O2 Delivery O2 Flow Rate FiO2 04/08/21 05:31 97.8 88 18 105/71 (82) 91 Nasal Cannula 2.0 I & O 04/07/21 04/07/21 04/08/21 15:00 23:00 07:00 Intake Total 840 ml 960 ml Balance 840 ml 960 ml Current Medications: Meds: Current Medications Medications (Trade) Dose Ordered Sig/Mya Route PRN Reason Start Time Stop Time Status Last Admin Dose Admin Acetaminophen (Tylenol) 650 mg PRN Q6HRS PRN PO MILD PAIN / TEMP > 100.3'F 02/16/21 15:45 03/04/21 09:21 DC 02/18/21 06:31 Multi-Ingredient Ointment (Analgesic [place]) 1 debra PRN QID PRN TP MUSCLE PAIN 02/16/21 15:45 03/04/21 09:21 DC Al Hydroxide/Mg Hydroxide (Mylanta Plus Xs) 15 ml PRN AFTMEALHC PRN PO DYSPEPSIA 02/16/21 15:45 03/04/21 22:05 Magnesium Hydroxide (Milk Of Magnesia) 2,400 mg PRN QHS PRN PO 1ST CHOICE CONSTIPATION 02/16/21 15:45 03/04/21 09:21 DC Acetaminophen (Tylenol) 1,000 mg Q6HRS PRN PO pain or fever 02/16/21 17:00 02/16/21 17:35 DC Acetaminophen (Tylenol) 500 mg Q4HRS PRN PO MILD PAIN 1-3 02/16/21 17:00 02/16/21 17:36 DC Bisacodyl (Dulcolax Tab) 5 mg PRN DAILY PRN PO 2ND CHOICE CONSTIPATION 02/16/21 17:00 03/04/21 09:21 DC Vitamin D (Vitamin D3) 50,000 unit WEEKLY PO 02/22/21 09:00 03/04/21 09:21 DC 02/22/21 07:16 Clonazepam (KlonoPIN) 0.5 mg BID PO 02/16/21 21:00 02/27/21 19:54 DC 02/27/21 10:11 Dicyclomine HCl (Bentyl) 20 mg TID PO 02/16/21 21:00 03/04/21 09:21 DC 03/03/21 21:07 Diphenoxylate HCl/ Atropine (Lomotil) 2 tab BID PO 02/16/21 21:00 03/04/21 09:21 DC 03/03/21 21:08 Divalproex Sodium (Depakote Er) 1,000 mg HS PO 02/16/21 21:00 03/07/21 20:15 DC 03/04/21 21:43 Duloxetine HCl (Cymbalta) 30 mg BID PO 02/16/21 21:00 03/07/21 20:15 DC 03/06/21 08:14 Fluticasone Propionate (Flonase) 2 spray DAILY NS 02/17/21 09:00 04/07/21 08:16 Furosemide (Lasix) 20 mg DAILY PO 02/17/21 09:00 03/04/21 09:21 DC 03/03/21 08:32 Gabapentin (Neurontin) 300 mg QID PO 02/16/21 17:00 04/07/21 20:40 Hydroxyurea (Hydrea) 1,000 mg DAILY PO 02/17/21 09:00 04/07/21 08:10 Levetiracetam (Keppra) 250 mg BID PO 02/16/21 21:00 03/02/21 14:48 DC 03/02/21 09:54 Lidocaine (Lidoderm) 1 patch DAILY TP 02/17/21 09:00 02/17/21 09:24 DC Al Hydroxide/Mg Hydroxide (Mylanta Plus Xs) 15 ml PRN AFTMEALHC PRN PO DYSPEPSIA 02/16/21 17:00 02/16/21 17:36 DC Mirabegron (Myrbetriq) 50 mg DAILY PO 02/17/21 09:00 03/04/21 09:21 DC 03/03/21 08:30 Nystatin (Nystop) 1 debra BID TP 02/16/21 21:00 04/07/21 20:43 Pantoprazole Sodium (Protonix) 40 mg DAILYAC PO 02/17/21 07:30 04/07/21 08:11 Potassium Chloride (Klor-Con) 40 meq DAILY PO 02/17/21 09:00 03/04/21 09:21 DC 03/03/21 08:32 Sulfasalazine (Azulfidine) 500 mg TID PO 02/16/21 21:00 03/07/21 20:15 DC 03/06/21 13:05 Trazodone HCl (Desyrel) 50 mg QHS PO 02/16/21 21:00 04/07/21 20:41 Non-Formulary Medication (Albuterol Sulfate (Albuterol Sulfate Conc Neb Soln)) 1 vial PRN Q4HRS PRN NEB SHORTNESS OF BREATH 02/16/21 17:00 02/16/21 17:49 DC Ascorbic Acid (Vitamin C) 1,000 mg DAILY PO 02/17/21 09:00 03/04/21 09:21 DC 03/03/21 08:34 Diltiazem HCl (Cardizem) 60 mg BID PO 02/16/21 21:00 04/07/21 20:41 Lactobacillus Rhamnosus (Culturelle) 1 cap DAILY PO 02/17/21 09:00 03/04/21 09:21 DC 03/03/21 08:32 Amylase/Lipase/ Protease (Zenpep 10,000) 1 cap TIDBFRMEAL PO 02/17/21 07:30 04/07/21 16:20 Non-Formulary Medication (Magnesium Hydroxide (Milk Of Magnesia)) 2,400 mg PRN DAILY PRN PO CONSTIPATION 02/16/21 17:00 02/16/21 17:37 DC Magnesium Oxide (Magnesium Oxide) 400 mg DAILY PO 02/17/21 09:00 03/04/21 09:21 DC 03/03/21 08:31 Non-Formulary Medication (Methyl Salicylate/ Menthol (Analgesic [place])) 1 debra PRN Q6HRS PRN TP MUSCLE PAIN 02/16/21 17:00 02/16/21 17:37 DC Non-Formulary Medication (Umeclidinium [place] (Incruse Ellipta)) 62.5 mcg DAILY IH 02/17/21 09:00 02/16/21 17:49 DC Non-Formulary Medication (Zinc Gluconate ) 50 mg DAILY PO 02/17/21 09:00 02/16/21 17:46 DC Albuterol/ Ipratropium (Duoneb) 3 ml RTQID NEB 02/16/21 20:00 02/17/21 19:52 DC Albuterol Sulfate (Ventolin) 2.5 mg PRN Q4HRS PRN NEB SHORTNESS OF BREATH 02/16/21 18:00 Influenza Virus Vaccine Quadrival (Flulaval Quad [id number] Syringe) 0.5 ml ONCE ONCE VAX IM 02/17/21 09:00 02/17/21 09:01 DC 02/17/21 09:21 Lidocaine (Lidoderm) 1 patch DAILY PRN TP pain 02/17/21 09:30 03/29/21 12:01 DC 03/28/21 08:37 Albuterol/ Ipratropium (Combivent Respimat 20-100 Mcg) 1 puff RTQID INH 02/17/21 20:00 04/07/21 20:40 Sertraline HCl (Zoloft) 25 mg DAILY PO 02/22/21 09:00 02/24/21 10:00 DC 02/24/21 09:59 Sertraline HCl (Zoloft) 50 mg DAILY PO 02/25/21 09:00 03/01/21 18:30 DC 03/01/21 10:07 Olanzapine (ZyPREXA ZYDIS) 5 mg 1X ONCE PO 02/26/21 12:03 02/26/21 12:09 DC 02/26/21 12:25 Clonazepam (KlonoPIN) 0.5 mg DAILY PO 02/28/21 09:00 03/02/21 07:00 DC 03/01/21 10:07 Bupropion HCl (Wellbutrin Xl) 150 mg DAILY PO 03/02/21 09:00 03/08/21 15:46 DC 03/08/21 08:41 Levetiracetam (Keppra) 250 mg DAILY PO 03/03/21 09:00 04/07/21 08:10 Aripiprazole (Abilify) 5 mg DAILY PO 03/05/21 09:00 04/07/21 08:11 Ondansetron HCl (Zofran Odt) 4 mg PRN Q4HRS PRN PO NAUSEA/VOMITING 03/06/21 19:30 04/02/21 09:23 Potassium Chloride (Klor-Con) 30 meq BID PO 03/07/21 09:00 04/07/21 20:43 Divalproex Sodium (Depakote Er) 1,000 mg 1700 PO 03/08/21 17:00 03/12/21 00:01 DC 03/11/21 17:27 Duloxetine HCl (Cymbalta) 30 mg 0900,1700 PO 03/08/21 17:00 04/07/21 16:20 Sulfasalazine (Azulfidine) 500 mg 0900,1300,1700 PO 03/08/21 09:00 04/07/21 16:20 Bupropion HCl (Wellbutrin Xl) 300 mg DAILY PO 03/09/21 09:00 04/07/21 08:41 Potassium Chloride (Klor-Con) 40 meq 1630,1730 PO 03/08/21 16:30 03/08/21 18:04 DC 03/08/21 16:57 Potassium Chloride (Klor-Con) 40 meq 1700,1800 PO 03/08/21 17:15 03/08/21 18:04 DC 03/08/21 17:56 Divalproex Sodium (Depakote Sprinkles) 500 mg BID PO 03/12/21 09:00 04/07/21 20:43 Clotrimazole (Mycelex-7) 1 debra QHS VG 03/18/21 21:00 03/25/21 20:59 DC 03/24/21 20:20 Dicyclomine HCl (Bentyl) 20 mg TID PO 03/18/21 21:00 04/07/21 20:42 Diphenoxylate HCl/ Atropine (Lomotil) 2 tab BID PO 03/18/21 21:00 04/07/21 20:42 Lidocaine (Lidoderm) 1 patch PRN DAILY PRN TP pain 03/29/21 12:15 I have reviewed the current psychotropics carefully including drug interactions. Risk benefit ratio favors no change other than as noted in my dictated progress note. Diagnosis: Problems: (1) Impulse control disorder, unspecified (2) Mild cognitive impairment (3) Anxiety disorder, unspecified (4) Bipolar disorder, curr episode mixed, severe, with psychotic features (5) Bipolar 1 disorder, depressed NITHIN STEVENS MD Apr 08, 2021 08:33
[2021-04-08] MEDS: FLUTICASONE 50MCG/NASAL SPRAY 16GM BOTTLE. NS SCH (09:05)
[2021-04-08] MEDS: DIVALPROEX 125 MG CAP.SPRINK PO SCH ×2 (09:07→19:58)
[2021-04-08] MEDS: HYDROXYUREA 500 MG CAPSULE PO SCH (09:07)
[2021-04-08] MEDS: LIPASE/PROTEAS/AMYLAS 10/32/42 CAPSULE.DR. PO SCH ×3 (09:08→16:00)
[2021-04-08] MEDS: GABAPENTIN 300 MG CAPSULE. PO SCH ×4 (09:08→19:59)
[2021-04-08] MEDS: dilTIAZem HCL 30 MG TABLET PO SCH ×2 (09:08→19:58)
[2021-04-08] MEDS: PANTOPRAZOLE 40 MG TABLET. PO SCH (09:08)
[2021-04-08] MEDS: POTASSIUM CHLORIDE 10 MEQ TABLET.ER. PO SCH ×2 (09:09→19:56)
[2021-04-08] MEDS: buPROPion XL 300 MG TAB.ER.24H. PO SCH (09:09)
[2021-04-08] MEDS: sulfaSALAzine 500 MG TABLET PO SCH ×3 (09:09→16:00)
[2021-04-08] MEDS: DULoxetine HCL 30 MG CAPSULE.DR PO SCH ×2 (09:09→16:00)
[2021-04-08] MEDS: DICYCLOMINE HCL 20 MG TABLET PO SCH ×3 (09:09→19:57)
[2021-04-08] MEDS: ARIPiprazole 5 MG TABLET PO SCH (09:09)
[2021-04-08] MEDS: levETIRAcetam 250 MG TABLET PO SCH (09:09)
[2021-04-08] MEDS: DIPHENOXYLATE/ATROPINE TABLET. PO SCH ×2 (09:09→19:57)
[2021-04-08] MEDS: NYSTATIN TOPICAL POWDER 15GM BOTTLE. TP SCH ×2 (09:10→19:56)
--- NOTE | 2021-04-08 12:44 | NUR ---
RN Day Shift Note: Pt presents with neutral mood/affect. Pt is calm and cooperative. Pt is able to make her needs known to staff. Pt is currently using a wheelchair. Pt will engage when approached by staff and is approachable. Pt is noted to spend time in the day room today with peers and staff. Pt continues to have a good appetite eating between 75%-100% of meals today. Pts vitals are WNL. Pt slept 9 hours last night. Will continue to monitor.
[2021-04-08 15:29] VITALS: BP 102/60
[2021-04-08] MEDS: traZODone 50 MG TABLET. PO SCH (19:56)
--- NOTE | 2021-04-08 20:44 | PDOC ---
Exam Note: Napoleon Note: Please also refer to the separate dictated note~for this date of service dictated separately.~Patient seen individually. Discussed the patient with Nursing staff reviewed the chart.~Reviewed interim history and current functioning. Reviewed vital signs,~Labs/ Radiology~and current medications noted below. Continue current treatment with the changes noted in the dictated addendum note Assessment: Vital Signs/I&O: Vital Signs Date Time Temp Pulse Resp B/P (MAP) Pulse Ox O2 Delivery O2 Flow Rate FiO2 04/08/21 19:58 88 102/60 04/08/21 15:29 98.2 17 96 Room Air 04/08/21 05:31 2.0 I & O 04/07/21 04/07/21 04/08/21 15:00 23:00 07:00 Intake Total 840 ml 960 ml Balance 840 ml 960 ml Current Medications: Meds: Current Medications Medications (Trade) Dose Ordered Sig/Mya Route PRN Reason Start Time Stop Time Status Last Admin Dose Admin Acetaminophen (Tylenol) 650 mg PRN Q6HRS PRN PO MILD PAIN / TEMP > 100.3'F 02/16/21 15:45 03/04/21 09:21 DC 02/18/21 06:31 Multi-Ingredient Ointment (Analgesic [place]) 1 debra PRN QID PRN TP MUSCLE PAIN 02/16/21 15:45 03/04/21 09:21 DC Al Hydroxide/Mg Hydroxide (Mylanta Plus Xs) 15 ml PRN AFTMEALHC PRN PO DYSPEPSIA 02/16/21 15:45 03/04/21 22:05 Magnesium Hydroxide (Milk Of Magnesia) 2,400 mg PRN QHS PRN PO 1ST CHOICE CONSTIPATION 02/16/21 15:45 03/04/21 09:21 DC Acetaminophen (Tylenol) 1,000 mg Q6HRS PRN PO pain or fever 02/16/21 17:00 02/16/21 17:35 DC Acetaminophen (Tylenol) 500 mg Q4HRS PRN PO MILD PAIN 1-3 02/16/21 17:00 02/16/21 17:36 DC Bisacodyl (Dulcolax Tab) 5 mg PRN DAILY PRN PO 2ND CHOICE CONSTIPATION 02/16/21 17:00 03/04/21 09:21 DC Vitamin D (Vitamin D3) 50,000 unit WEEKLY PO 02/22/21 09:00 03/04/21 09:21 DC 02/22/21 07:16 Clonazepam (KlonoPIN) 0.5 mg BID PO 02/16/21 21:00 02/27/21 19:54 DC 02/27/21 10:11 Dicyclomine HCl (Bentyl) 20 mg TID PO 02/16/21 21:00 03/04/21 09:21 DC 03/03/21 21:07 Diphenoxylate HCl/ Atropine (Lomotil) 2 tab BID PO 02/16/21 21:00 03/04/21 09:21 DC 03/03/21 21:08 Divalproex Sodium (Depakote Er) 1,000 mg HS PO 02/16/21 21:00 03/07/21 20:15 DC 03/04/21 21:43 Duloxetine HCl (Cymbalta) 30 mg BID PO 02/16/21 21:00 03/07/21 20:15 DC 03/06/21 08:14 Fluticasone Propionate (Flonase) 2 spray DAILY NS 02/17/21 09:00 04/08/21 09:05 Furosemide (Lasix) 20 mg DAILY PO 02/17/21 09:00 03/04/21 09:21 DC 03/03/21 08:32 Gabapentin (Neurontin) 300 mg QID PO 02/16/21 17:00 04/08/21 19:59 Hydroxyurea (Hydrea) 1,000 mg DAILY PO 02/17/21 09:00 04/08/21 09:07 Levetiracetam (Keppra) 250 mg BID PO 02/16/21 21:00 03/02/21 14:48 DC 03/02/21 09:54 Lidocaine (Lidoderm) 1 patch DAILY TP 02/17/21 09:00 02/17/21 09:24 DC Al Hydroxide/Mg Hydroxide (Mylanta Plus Xs) 15 ml PRN AFTMEALHC PRN PO DYSPEPSIA 02/16/21 17:00 02/16/21 17:36 DC Mirabegron (Myrbetriq) 50 mg DAILY PO 02/17/21 09:00 03/04/21 09:21 DC 03/03/21 08:30 Nystatin (Nystop) 1 debra BID TP 02/16/21 21:00 04/08/21 19:56 Pantoprazole Sodium (Protonix) 40 mg DAILYAC PO 02/17/21 07:30 04/08/21 09:08 Potassium Chloride (Klor-Con) 40 meq DAILY PO 02/17/21 09:00 03/04/21 09:21 DC 03/03/21 08:32 Sulfasalazine (Azulfidine) 500 mg TID PO 02/16/21 21:00 03/07/21 20:15 DC 03/06/21 13:05 Trazodone HCl (Desyrel) 50 mg QHS PO 02/16/21 21:00 04/08/21 19:56 Non-Formulary Medication (Albuterol Sulfate (Albuterol Sulfate Conc Neb Soln)) 1 vial PRN Q4HRS PRN NEB SHORTNESS OF BREATH 02/16/21 17:00 02/16/21 17:49 DC Ascorbic Acid (Vitamin C) 1,000 mg DAILY PO 02/17/21 09:00 03/04/21 09:21 DC 03/03/21 08:34 Diltiazem HCl (Cardizem) 60 mg BID PO 02/16/21 21:00 04/08/21 19:58 Lactobacillus Rhamnosus (Culturelle) 1 cap DAILY PO 02/17/21 09:00 03/04/21 09:21 DC 03/03/21 08:32 Amylase/Lipase/ Protease (Zenpep 10,000) 1 cap TIDBFRMEAL PO 02/17/21 07:30 04/08/21 16:00 Non-Formulary Medication (Magnesium Hydroxide (Milk Of Magnesia)) 2,400 mg PRN DAILY PRN PO CONSTIPATION 02/16/21 17:00 02/16/21 17:37 DC Magnesium Oxide (Magnesium Oxide) 400 mg DAILY PO 02/17/21 09:00 03/04/21 09:21 DC 03/03/21 08:31 Non-Formulary Medication (Methyl Salicylate/ Menthol (Analgesic [place])) 1 debra PRN Q6HRS PRN TP MUSCLE PAIN 02/16/21 17:00 02/16/21 17:37 DC Non-Formulary Medication (Umeclidinium [place] (Incruse Ellipta)) 62.5 mcg DAILY IH 10/8/21 09:00 02/16/21 17:49 DC Non-Formulary Medication (Zinc Gluconate ) 50 mg DAILY PO 02/17/21 09:00 02/16/21 17:46 DC Albuterol/ Ipratropium (Duoneb) 3 ml RTQID NEB 02/16/21 20:00 02/17/21 19:52 DC Albuterol Sulfate (Ventolin) 2.5 mg PRN Q4HRS PRN NEB SHORTNESS OF BREATH 02/16/21 18:00 Influenza Virus Vaccine Quadrival (Flulaval Quad [id number] Syringe) 0.5 ml ONCE ONCE VAX IM 02/17/21 09:00 02/17/21 09:01 DC 02/17/21 09:21 Lidocaine (Lidoderm) 1 patch DAILY PRN TP pain 02/17/21 09:30 03/29/21 12:01 DC 03/28/21 08:37 Albuterol/ Ipratropium (Combivent Respimat 20-100 Mcg) 1 puff RTQID INH 02/17/21 20:00 04/08/21 19:55 Sertraline HCl (Zoloft) 25 mg DAILY PO 02/22/21 09:00 02/24/21 10:00 DC 02/24/21 09:59 Sertraline HCl (Zoloft) 50 mg DAILY PO 02/25/21 09:00 03/01/21 18:30 DC 03/01/21 10:07 Olanzapine (ZyPREXA ZYDIS) 5 mg 1X ONCE PO 02/26/21 12:03 02/26/21 12:09 DC 02/26/21 12:25 Clonazepam (KlonoPIN) 0.5 mg DAILY PO 02/28/21 09:00 03/02/21 07:00 DC 03/01/21 10:07 Bupropion HCl (Wellbutrin Xl) 150 mg DAILY PO 03/02/21 09:00 03/08/21 15:46 DC 03/08/21 08:41 Levetiracetam (Keppra) 250 mg DAILY PO 03/03/21 09:00 04/08/21 09:09 Aripiprazole (Abilify) 5 mg DAILY PO 03/05/21 09:00 04/08/21 09:09 Ondansetron HCl (Zofran Odt) 4 mg PRN Q4HRS PRN PO NAUSEA/VOMITING 03/06/21 19:30 04/02/21 09:23 Potassium Chloride (Klor-Con) 30 meq BID PO 03/07/21 09:00 04/08/21 19:56 Divalproex Sodium (Depakote Er) 1,000 mg 1700 PO 03/08/21 17:00 03/12/21 00:01 DC 03/11/21 17:27 Duloxetine HCl (Cymbalta) 30 mg 0900,1700 PO 03/08/21 17:00 04/08/21 16:00 Sulfasalazine (Azulfidine) 500 mg 0900,1300,1700 PO 03/08/21 09:00 04/08/21 16:00 Bupropion HCl (Wellbutrin Xl) 300 mg DAILY PO 03/09/21 09:00 04/08/21 09:09 Potassium Chloride (Klor-Con) 40 meq 1630,1730 PO 03/08/21 16:30 03/08/21 18:04 DC 03/08/21 16:57 Potassium Chloride (Klor-Con) 40 meq 1700,1800 PO 03/08/21 17:15 03/08/21 18:04 DC 03/08/21 17:56 Divalproex Sodium (Depakote Sprinkles) 500 mg BID PO 03/12/21 09:00 04/08/21 19:58 Clotrimazole (Mycelex-7) 1 debra QHS VG 03/18/21 21:00 03/25/21 20:59 DC 03/24/21 20:20 Dicyclomine HCl (Bentyl) 20 mg TID PO 03/18/21 21:00 04/08/21 19:57 Diphenoxylate HCl/ Atropine (Lomotil) 2 tab BID PO 03/18/21 21:00 04/08/21 19:57 Lidocaine (Lidoderm) 1 patch PRN DAILY PRN TP pain 03/29/21 12:15 I have reviewed the current psychotropics carefully including drug interactions. Risk benefit ratio favors no change other than as noted in my dictated progress note. Diagnosis: Problems: (1) Impulse control disorder, unspecified (2) Mild cognitive impairment (3) Anxiety disorder, unspecified (4) Bipolar disorder, curr episode mixed, severe, with psychotic features (5) Bipolar 1 disorder, depressed NITHIN STEVENS MD Apr 08, 2021 20:44
--- NOTE | 2021-04-08 23:25 | NUR ---
Patient is outside of the [facility] station on assumption of care, sitting in a wheelchair. She is flat, disorganized. Pleasant in her interactions with this nurse. Compliant with assessments and medications whole, a few at a time on a spoon. She has had no agitated or attention seeking behaviors so far this shift. Denies SI. Denies any pain or discomfort. Patient appears to be sleeping comfortably at present time. Will continue to monitor.
[2021-04-09 05:40] VITALS: BP 129/74
--- NOTE | 2021-04-09 07:36 | PDOC ---
Exam Note: Napoleon Note: This note is a late entry for 04/07/2021 covers elements not covered in my initial note. Subjective: The patient was seen individually in the evening of 04/07/2021 with Dipesh BARR, discussed and reviewed the chart. The patient slept 7-1/2 hours previous night. Overall she has done better, little more social especially with another patient on the unit who is not demented. I met with her in the hallway. Review of Systems: Impaired ambulation in Broda chair. Shortness of breath on O2 supplements. She has been keeping the oxygen in place. No CV, , eye, ENT system symptoms on review. Mental Status Exam: The patient is oriented to herself and situation. Speech coherent. Abstraction fair. Computation impaired. Language function intact. Mood and affect labile. Laboratory Data: Reviewed. Impression: Bipolar disorder, depressed. Anxiety disorder unspecified. Impulse control disorder unspecified. Plan: No change from initial note. Assessment: Vital Signs/I&O: Vital Signs Date Time Temp Pulse Resp B/P (MAP) Pulse Ox O2 Delivery O2 Flow Rate FiO2 04/09/21 05:40 97.6 84 20 129/74 (92) 91 Nasal Cannula 2.0 I & O 04/08/21 04/08/21 04/09/21 15:00 23:00 07:00 Intake Total 720 ml 360 ml Balance 720 ml 360 ml Current Medications: Meds: Current Medications Medications (Trade) Dose Ordered Sig/Mya Route PRN Reason Start Time Stop Time Status Last Admin Dose Admin Acetaminophen (Tylenol) 650 mg PRN Q6HRS PRN PO MILD PAIN / TEMP > 100.3'F 02/16/21 15:45 03/04/21 09:21 DC 02/18/21 06:31 Multi-Ingredient Ointment (Analgesic [place]) 1 debra PRN QID PRN TP MUSCLE PAIN 02/16/21 15:45 03/04/21 09:21 DC Al Hydroxide/Mg Hydroxide (Mylanta Plus Xs) 15 ml PRN AFTMEALHC PRN PO DYSPEPSIA 02/16/21 15:45 03/04/21 22:05 Magnesium Hydroxide (Milk Of Magnesia) 2,400 mg PRN QHS PRN PO 1ST CHOICE CONSTIPATION 02/16/21 15:45 03/04/21 09:21 DC Acetaminophen (Tylenol) 1,000 mg Q6HRS PRN PO pain or fever 02/16/21 17:00 02/16/21 17:35 DC Acetaminophen (Tylenol) 500 mg Q4HRS PRN PO MILD PAIN 1-3 02/16/21 17:00 02/16/21 17:36 DC Bisacodyl (Dulcolax Tab) 5 mg PRN DAILY PRN PO 2ND CHOICE CONSTIPATION 02/16/21 17:00 03/04/21 09:21 DC Vitamin D (Vitamin D3) 50,000 unit WEEKLY PO 02/22/21 09:00 03/04/21 09:21 DC 02/22/21 07:16 Clonazepam (KlonoPIN) 0.5 mg BID PO 02/16/21 21:00 02/27/21 19:54 DC 02/27/21 10:11 Dicyclomine HCl (Bentyl) 20 mg TID PO 02/16/21 21:00 03/04/21 09:21 DC 03/03/21 21:07 Diphenoxylate HCl/ Atropine (Lomotil) 2 tab BID PO 02/16/21 21:00 03/04/21 09:21 DC 03/03/21 21:08 Divalproex Sodium (Depakote Er) 1,000 mg HS PO 02/16/21 21:00 03/07/21 20:15 DC 03/04/21 21:43 Duloxetine HCl (Cymbalta) 30 mg BID PO 02/16/21 21:00 03/07/21 20:15 DC 03/06/21 08:14 Fluticasone Propionate (Flonase) 2 spray DAILY NS 02/17/21 09:00 04/08/21 09:05 Furosemide (Lasix) 20 mg DAILY PO 02/17/21 09:00 03/04/21 09:21 DC 03/03/21 08:32 Gabapentin (Neurontin) 300 mg QID PO 02/16/21 17:00 04/08/21 19:59 Hydroxyurea (Hydrea) 1,000 mg DAILY PO 02/17/21 09:00 04/08/21 09:07 Levetiracetam (Keppra) 250 mg BID PO 02/16/21 21:00 03/02/21 14:48 DC 03/02/21 09:54 Lidocaine (Lidoderm) 1 patch DAILY TP 02/17/21 09:00 02/17/21 09:24 DC Al Hydroxide/Mg Hydroxide (Mylanta Plus Xs) 15 ml PRN AFTMEALHC PRN PO DYSPEPSIA 02/16/21 17:00 02/16/21 17:36 DC Mirabegron (Myrbetriq) 50 mg DAILY PO 02/17/21 09:00 03/04/21 09:21 DC 03/03/21 08:30 Nystatin (Nystop) 1 debra BID TP 02/16/21 21:00 04/08/21 19:56 Pantoprazole Sodium (Protonix) 40 mg DAILYAC PO 02/17/21 07:30 04/08/21 09:08 Potassium Chloride (Klor-Con) 40 meq DAILY PO 02/17/21 09:00 03/04/21 09:21 DC 03/03/21 08:32 Sulfasalazine (Azulfidine) 500 mg TID PO 02/16/21 21:00 03/07/21 20:15 DC 03/06/21 13:05 Trazodone HCl (Desyrel) 50 mg QHS PO 02/16/21 21:00 04/08/21 19:56 Non-Formulary Medication (Albuterol Sulfate (Albuterol Sulfate Conc Neb Soln)) 1 vial PRN Q4HRS PRN NEB SHORTNESS OF BREATH 02/16/21 17:00 02/16/21 17:49 DC Ascorbic Acid (Vitamin C) 1,000 mg DAILY PO 02/17/21 09:00 03/04/21 09:21 DC 03/03/21 08:34 Diltiazem HCl (Cardizem) 60 mg BID PO 02/16/21 21:00 04/08/21 19:58 Lactobacillus Rhamnosus (Culturelle) 1 cap DAILY PO 02/17/21 09:00 03/04/21 09:21 DC 03/03/21 08:32 Amylase/Lipase/ Protease (Zenpep 10,000) 1 cap TIDBFRMEAL PO 02/17/21 07:30 04/08/21 16:00 Non-Formulary Medication (Magnesium Hydroxide (Milk Of Magnesia)) 2,400 mg PRN DAILY PRN PO CONSTIPATION 02/16/21 17:00 02/16/21 17:37 DC Magnesium Oxide (Magnesium Oxide) 400 mg DAILY PO 02/17/21 09:00 03/04/21 09:21 DC 03/03/21 08:31 Non-Formulary Medication (Methyl Salicylate/ Menthol (Analgesic [place])) 1 debra PRN Q6HRS PRN TP MUSCLE PAIN 02/16/21 17:00 02/16/21 17:37 DC Non-Formulary Medication (Umeclidinium [place] (Incruse Ellipta)) 62.5 mcg DAILY IH 02/17/21 09:00 02/16/21 17:49 DC Non-Formulary Medication (Zinc Gluconate ) 50 mg DAILY PO 02/17/21 09:00 02/16/21 17:46 DC Albuterol/ Ipratropium (Duoneb) 3 ml RTQID NEB 02/16/21 20:00 02/17/21 19:52 DC Albuterol Sulfate (Ventolin) 2.5 mg PRN Q4HRS PRN NEB SHORTNESS OF BREATH 02/16/21 18:00 Influenza Virus Vaccine Quadrival (Flulaval Quad [id number] Syringe) 0.5 ml ONCE ONCE VAX IM 02/17/21 09:00 02/17/21 09:01 DC 02/17/21 09:21 Lidocaine (Lidoderm) 1 patch DAILY PRN TP pain 02/17/21 09:30 03/29/21 12:01 DC 03/28/21 08:37 Albuterol/ Ipratropium (Combivent Respimat 20-100 Mcg) 1 puff RTQID INH 02/17/21 20:00 04/08/21 19:55 Sertraline HCl (Zoloft) 25 mg DAILY PO 02/22/21 09:00 02/24/21 10:00 DC 02/24/21 09:59 Sertraline HCl (Zoloft) 50 mg DAILY PO 02/25/21 09:00 03/01/21 18:30 DC 03/01/21 10:07 Olanzapine (ZyPREXA ZYDIS) 5 mg 1X ONCE PO 02/26/21 12:03 02/26/21 12:09 DC 02/26/21 12:25 Clonazepam (KlonoPIN) 0.5 mg DAILY PO 02/28/21 09:00 03/02/21 07:00 DC 03/01/21 10:07 Bupropion HCl (Wellbutrin Xl) 150 mg DAILY PO 03/02/21 09:00 03/08/21 15:46 DC 03/08/21 08:41 Levetiracetam (Keppra) 250 mg DAILY PO 03/03/21 09:00 04/08/21 09:09 Aripiprazole (Abilify) 5 mg DAILY PO 03/05/21 09:00 04/08/21 09:09 Ondansetron HCl (Zofran Odt) 4 mg PRN Q4HRS PRN PO NAUSEA/VOMITING 03/06/21 19:30 04/02/21 09:23 Potassium Chloride (Klor-Con) 30 meq BID PO 03/07/21 09:00 04/08/21 19:56 Divalproex Sodium (Depakote Er) 1,000 mg 1700 PO 03/08/21 17:00 03/12/21 00:01 DC 03/11/21 17:27 Duloxetine HCl (Cymbalta) 30 mg 0900,1700 PO 03/08/21 17:00 04/08/21 16:00 Sulfasalazine (Azulfidine) 500 mg 0900,1300,1700 PO 03/08/21 09:00 04/08/21 16:00 Bupropion HCl (Wellbutrin Xl) 300 mg DAILY PO 03/09/21 09:00 04/08/21 09:09 Potassium Chloride (Klor-Con) 40 meq 1630,1730 PO 03/08/21 16:30 03/08/21 18:04 DC 03/08/21 16:57 Potassium Chloride (Klor-Con) 40 meq 1700,1800 PO 03/08/21 17:15 03/08/21 18:04 DC 03/08/21 17:56 Divalproex Sodium (Depakote Sprinkles) 500 mg BID PO 03/12/21 09:00 04/08/21 19:58 Clotrimazole (Mycelex-7) 1 debra QHS VG 03/18/21 21:00 03/25/21 20:59 DC 03/24/21 20:20 Dicyclomine HCl (Bentyl) 20 mg TID PO 03/18/21 21:00 04/08/21 19:57 Diphenoxylate HCl/ Atropine (Lomotil) 2 tab BID PO 03/18/21 21:00 04/08/21 19:57 Lidocaine (Lidoderm) 1 patch PRN DAILY PRN TP pain 03/29/21 12:15 I have reviewed the current psychotropics carefully including drug interactions. Risk benefit ratio favors no change other than as noted in my dictated progress note. Diagnosis: Problems: (1) Impulse control disorder, unspecified (2) Mild cognitive impairment (3) Anxiety disorder, unspecified (4) Bipolar disorder, curr episode mixed, severe, with psychotic features (5) Bipolar 1 disorder, depressed NITHIN STEVENS MD Apr 09, 2021 07:36
--- NOTE | 2021-04-09 08:00 | PDOC ---
Exam Note: Napoleon Note: This note is a late entry for 04/08/2021 covers elements not covered in my initial note. Subjective: The patient was seen individually in the evening of 04/08/2021 with Nara BARR, discussed and reviewed the chart. The patient slept 9 hours previous night. I met with her in the dining room. She takes her medications whole. She has been feeding herself. She did put herself on the floor x1 but not injuries. She is pleasant, smiling and interactive as I met with her seemed to recognize me. Review of Systems: Impaired ambulation in Broda chair. Shortness of breath on O2 supplements. No CV, , eye, ENT system symptoms on review. Mental Status Exam: The patient is oriented to herself and situation. Speech coherent. Abstraction fair. Computation impaired. Language function intact. Mood and affect labile. Laboratory Data: Reviewed. Impression: Bipolar disorder, depressed. Anxiety disorder unspecified. Impulse control disorder unspecified. Plan: No change from initial note. Assessment: Vital Signs/I&O: Vital Signs Date Time Temp Pulse Resp B/P (MAP) Pulse Ox O2 Delivery O2 Flow Rate FiO2 04/09/21 05:40 97.6 84 20 129/74 (92) 91 Nasal Cannula 2.0 I & O 04/08/21 04/08/21 04/09/21 15:00 23:00 07:00 Intake Total 720 ml 360 ml Balance 720 ml 360 ml Current Medications: Meds: Current Medications Medications (Trade) Dose Ordered Sig/Mya Route PRN Reason Start Time Stop Time Status Last Admin Dose Admin Acetaminophen (Tylenol) 650 mg PRN Q6HRS PRN PO MILD PAIN / TEMP > 100.3'F 02/16/21 15:45 03/04/21 09:21 DC 02/18/21 06:31 Multi-Ingredient Ointment (Analgesic [place]) 1 debra PRN QID PRN TP MUSCLE PAIN 02/16/21 15:45 03/04/21 09:21 DC Al Hydroxide/Mg Hydroxide (Mylanta Plus Xs) 15 ml PRN AFTMEALHC PRN PO DYSPEPSIA 02/16/21 15:45 03/04/21 22:05 Magnesium Hydroxide (Milk Of Magnesia) 2,400 mg PRN QHS PRN PO 1ST CHOICE CONSTIPATION 02/16/21 15:45 03/04/21 09:21 DC Acetaminophen (Tylenol) 1,000 mg Q6HRS PRN PO pain or fever 02/16/21 17:00 02/16/21 17:35 DC Acetaminophen (Tylenol) 500 mg Q4HRS PRN PO MILD PAIN 1-3 02/16/21 17:00 02/16/21 17:36 DC Bisacodyl (Dulcolax Tab) 5 mg PRN DAILY PRN PO 2ND CHOICE CONSTIPATION 02/16/21 17:00 03/04/21 09:21 DC Vitamin D (Vitamin D3) 50,000 unit WEEKLY PO 02/22/21 09:00 03/04/21 09:21 DC 02/22/21 07:16 Clonazepam (KlonoPIN) 0.5 mg BID PO 02/16/21 21:00 02/27/21 19:54 DC 02/27/21 10:11 Dicyclomine HCl (Bentyl) 20 mg TID PO 02/16/21 21:00 03/04/21 09:21 DC 03/03/21 21:07 Diphenoxylate HCl/ Atropine (Lomotil) 2 tab BID PO 02/16/21 21:00 03/04/21 09:21 DC 03/03/21 21:08 Divalproex Sodium (Depakote Er) 1,000 mg HS PO 02/16/21 21:00 03/07/21 20:15 DC 03/04/21 21:43 Duloxetine HCl (Cymbalta) 30 mg BID PO 02/16/21 21:00 03/07/21 20:15 DC 03/06/21 08:14 Fluticasone Propionate (Flonase) 2 spray DAILY NS 02/17/21 09:00 04/08/21 09:05 Furosemide (Lasix) 20 mg DAILY PO 02/17/21 09:00 03/04/21 09:21 DC 03/03/21 08:32 Gabapentin (Neurontin) 300 mg QID PO 02/16/21 17:00 04/08/21 19:59 Hydroxyurea (Hydrea) 1,000 mg DAILY PO 02/17/21 09:00 04/08/21 09:07 Levetiracetam (Keppra) 250 mg BID PO 02/16/21 21:00 03/02/21 14:48 DC 03/02/21 09:54 Lidocaine (Lidoderm) 1 patch DAILY TP 02/17/21 09:00 02/17/21 09:24 DC Al Hydroxide/Mg Hydroxide (Mylanta Plus Xs) 15 ml PRN AFTMEALHC PRN PO DYSPEPSIA 02/16/21 17:00 02/16/21 17:36 DC Mirabegron (Myrbetriq) 50 mg DAILY PO 02/17/21 09:00 03/04/21 09:21 DC 03/03/21 08:30 Nystatin (Nystop) 1 debra BID TP 02/16/21 21:00 04/08/21 19:56 Pantoprazole Sodium (Protonix) 40 mg DAILYAC PO 02/17/21 07:30 04/08/21 09:08 Potassium Chloride (Klor-Con) 40 meq DAILY PO 02/17/21 09:00 03/04/21 09:21 DC 03/03/21 08:32 Sulfasalazine (Azulfidine) 500 mg TID PO 02/16/21 21:00 03/07/21 20:15 DC 03/06/21 13:05 Trazodone HCl (Desyrel) 50 mg QHS PO 02/16/21 21:00 04/08/21 19:56 Non-Formulary Medication (Albuterol Sulfate (Albuterol Sulfate Conc Neb Soln)) 1 vial PRN Q4HRS PRN NEB SHORTNESS OF BREATH 02/16/21 17:00 02/16/21 17:49 DC Ascorbic Acid (Vitamin C) 1,000 mg DAILY PO 02/17/21 09:00 03/04/21 09:21 DC 03/03/21 08:34 Diltiazem HCl (Cardizem) 60 mg BID PO 02/16/21 21:00 04/08/21 19:58 Lactobacillus Rhamnosus (Culturelle) 1 cap DAILY PO 02/17/21 09:00 03/04/21 09:21 DC 03/03/21 08:32 Amylase/Lipase/ Protease (Zenpep 10,000) 1 cap TIDBFRMEAL PO 02/17/21 07:30 04/08/21 16:00 Non-Formulary Medication (Magnesium Hydroxide (Milk Of Magnesia)) 2,400 mg PRN DAILY PRN PO CONSTIPATION 02/16/21 17:00 02/16/21 17:37 DC Magnesium Oxide (Magnesium Oxide) 400 mg DAILY PO 02/17/21 09:00 03/04/21 09:21 DC 03/03/21 08:31 Non-Formulary Medication (Methyl Salicylate/ Menthol (Analgesic [place])) 1 debra PRN Q6HRS PRN TP MUSCLE PAIN 02/16/21 17:00 02/16/21 17:37 DC Non-Formulary Medication (Umeclidinium [place] (Incruse Ellipta)) 62.5 mcg DAILY IH 02/17/21 09:00 02/16/21 17:49 DC Non-Formulary Medication (Zinc Gluconate ) 50 mg DAILY PO 02/17/21 09:00 02/16/21 17:46 DC Albuterol/ Ipratropium (Duoneb) 3 ml RTQID NEB 02/16/21 20:00 02/17/21 19:52 DC Albuterol Sulfate (Ventolin) 2.5 mg PRN Q4HRS PRN NEB SHORTNESS OF BREATH 02/16/21 18:00 Influenza Virus Vaccine Quadrival (Flulaval Quad [id number] Syringe) 0.5 ml ONCE ONCE VAX IM 02/17/21 09:00 02/17/21 09:01 DC 02/17/21 09:21 Lidocaine (Lidoderm) 1 patch DAILY PRN TP pain 02/17/21 09:30 03/29/21 12:01 DC 03/28/21 08:37 Albuterol/ Ipratropium (Combivent Respimat 20-100 Mcg) 1 puff RTQID INH 02/17/21 20:00 04/08/21 19:55 Sertraline HCl (Zoloft) 25 mg DAILY PO 02/22/21 09:00 02/24/21 10:00 DC 02/24/21 09:59 Sertraline HCl (Zoloft) 50 mg DAILY PO 02/25/21 09:00 03/01/21 18:30 DC 03/01/21 10:07 Olanzapine (ZyPREXA ZYDIS) 5 mg 1X ONCE PO 02/26/21 12:03 02/26/21 12:09 DC 02/26/21 12:25 Clonazepam (KlonoPIN) 0.5 mg DAILY PO 02/28/21 09:00 03/02/21 07:00 DC 03/01/21 10:07 Bupropion HCl (Wellbutrin Xl) 150 mg DAILY PO 03/02/21 09:00 03/08/21 15:46 DC 03/08/21 08:41 Levetiracetam (Keppra) 250 mg DAILY PO 03/03/21 09:00 04/08/21 09:09 Aripiprazole (Abilify) 5 mg DAILY PO 03/05/21 09:00 04/08/21 09:09 Ondansetron HCl (Zofran Odt) 4 mg PRN Q4HRS PRN PO NAUSEA/VOMITING 03/06/21 19:30 04/02/21 09:23 Potassium Chloride (Klor-Con) 30 meq BID PO 03/07/21 09:00 04/08/21 19:56 Divalproex Sodium (Depakote Er) 1,000 mg 1700 PO 03/08/21 17:00 03/12/21 00:01 DC 03/11/21 17:27 Duloxetine HCl (Cymbalta) 30 mg 0900,1700 PO 03/08/21 17:00 04/08/21 16:00 Sulfasalazine (Azulfidine) 500 mg 0900,1300,1700 PO 03/08/21 09:00 04/08/21 16:00 Bupropion HCl (Wellbutrin Xl) 300 mg DAILY PO 03/09/21 09:00 04/08/21 09:09 Potassium Chloride (Klor-Con) 40 meq 1630,1730 PO 03/08/21 16:30 03/08/21 18:04 DC 03/08/21 16:57 Potassium Chloride (Klor-Con) 40 meq 1700,1800 PO 03/08/21 17:15 03/08/21 18:04 DC 03/08/21 17:56 Divalproex Sodium (Depakote Sprinkles) 500 mg BID PO 03/12/21 09:00 04/08/21 19:58 Clotrimazole (Mycelex-7) 1 debra QHS VG 03/18/21 21:00 03/25/21 20:59 DC 03/24/21 20:20 Dicyclomine HCl (Bentyl) 20 mg TID PO 03/18/21 21:00 04/08/21 19:57 Diphenoxylate HCl/ Atropine (Lomotil) 2 tab BID PO 03/18/21 21:00 04/08/21 19:57 Lidocaine (Lidoderm) 1 patch PRN DAILY PRN TP pain 03/29/21 12:15 I have reviewed the current psychotropics carefully including drug interactions. Risk benefit ratio favors no change other than as noted in my dictated progress note. Diagnosis: Problems: (1) Impulse control disorder, unspecified (2) Mild cognitive impairment (3) Anxiety disorder, unspecified (4) Bipolar disorder, curr episode mixed, severe, with psychotic features (5) Bipolar 1 disorder, depressed NITHIN STEVENS MD Apr 09, 2021 08:00
[2021-04-09] MEDS: IPRATROPIUM/ALBUTEROL 20/100mcg/INH INHALER. INH SCH ×4 (08:51→19:52)
[2021-04-09] MEDS: FLUTICASONE 50MCG/NASAL SPRAY 16GM BOTTLE. NS SCH (08:51)
[2021-04-09] MEDS: dilTIAZem HCL 30 MG TABLET PO SCH ×2 (08:52→19:47)
[2021-04-09] MEDS: DIVALPROEX 125 MG CAP.SPRINK PO SCH ×2 (08:52→19:50)
[2021-04-09] MEDS: DULoxetine HCL 30 MG CAPSULE.DR PO SCH ×2 (08:52→17:23)
[2021-04-09] MEDS: POTASSIUM CHLORIDE 10 MEQ TABLET.ER. PO SCH ×2 (08:53→19:49)
[2021-04-09] MEDS: DIPHENOXYLATE/ATROPINE TABLET. PO SCH ×2 (08:53→19:49)
[2021-04-09] MEDS: sulfaSALAzine 500 MG TABLET PO SCH ×3 (08:53→17:23)
[2021-04-09] MEDS: DICYCLOMINE HCL 20 MG TABLET PO SCH ×3 (08:53→19:48)
[2021-04-09] MEDS: levETIRAcetam 250 MG TABLET PO SCH (08:53)
[2021-04-09] MEDS: GABAPENTIN 300 MG CAPSULE. PO SCH ×4 (08:53→19:50)
[2021-04-09] MEDS: LIPASE/PROTEAS/AMYLAS 10/32/42 CAPSULE.DR. PO SCH ×3 (08:53→16:26)
[2021-04-09] MEDS: ARIPiprazole 5 MG TABLET PO SCH (08:53)
[2021-04-09] MEDS: PANTOPRAZOLE 40 MG TABLET. PO SCH (08:53)
[2021-04-09] MEDS: buPROPion XL 300 MG TAB.ER.24H. PO SCH (09:00)
[2021-04-09] MEDS: HYDROXYUREA 500 MG CAPSULE PO SCH (09:00)
[2021-04-09] MEDS: NYSTATIN TOPICAL POWDER 15GM BOTTLE. TP SCH ×2 (09:00→19:51)
--- NOTE | 2021-04-09 14:07 | NUR ---
Nursing note: Patient in dining room for morning medications & assessment. She is compliant taking medications whole. She is A/O X3, able to voice year, not month, unable to report her situation. She is pleasantl, compliant, & interactive with peers. Patient denies pain/discomfort at this time. She has been in the day room between meals. She is currently in the day room. Will continue to monitor.
[2021-04-09 15:32] VITALS: BP 106/68
[2021-04-09] MEDS: traZODone 50 MG TABLET. PO SCH (19:48)
--- NOTE | 2021-04-09 20:21 | PDOC ---
Exam Note: Napoleon Note: Please also refer to the separate dictated note~for this date of service dictated separately.~Patient seen individually. Discussed the patient with Nursing staff reviewed the chart.~Reviewed interim history and current functioning. Reviewed vital signs,~Labs/ Radiology~and current medications noted below. Continue current treatment with the changes noted in the dictated addendum note Assessment: Vital Signs/I&O: Vital Signs Date Time Temp Pulse Resp B/P (MAP) Pulse Ox O2 Delivery O2 Flow Rate FiO2 04/09/21 19:47 97 106/68 04/09/21 15:32 97.9 20 94 04/09/21 05:40 Nasal Cannula 2.0 I & O 0 04/08/21 04/08/21 04/09/21 15:00 23:00 07:00 Intake Total 720 ml 360 ml Balance 720 ml 360 ml Current Medications: Meds: Current Medications Medications (Trade) Dose Ordered Sig/Mya Route PRN Reason Start Time Stop Time Status Last Admin Dose Admin Acetaminophen (Tylenol) 650 mg PRN Q6HRS PRN PO MILD PAIN / TEMP > 100.3'F 02/16/21 15:45 03/04/21 09:21 DC 02/18/21 06:31 Multi-Ingredient Ointment (Analgesic [place]) 1 debra PRN QID PRN TP MUSCLE PAIN 02/16/21 15:45 03/04/21 09:21 DC Al Hydroxide/Mg Hydroxide (Mylanta Plus Xs) 15 ml PRN AFTMEALHC PRN PO DYSPEPSIA 02/16/21 15:45 03/04/21 22:05 Magnesium Hydroxide (Milk Of Magnesia) 2,400 mg PRN QHS PRN PO 1ST CHOICE CONSTIPATION 02/16/21 15:45 03/04/21 09:21 DC Acetaminophen (Tylenol) 1,000 mg Q6HRS PRN PO pain or fever 02/16/21 17:00 02/16/21 17:35 DC Acetaminophen (Tylenol) 500 mg Q4HRS PRN PO MILD PAIN 1-3 02/16/21 17:00 02/16/21 17:36 DC Bisacodyl (Dulcolax Tab) 5 mg PRN DAILY PRN PO 2ND CHOICE CONSTIPATION 02/16/21 17:00 03/04/21 09:21 DC Vitamin D (Vitamin D3) 50,000 unit WEEKLY PO 10/13/21 09:00 03/04/21 09:21 DC 02/22/21 07:16 Clonazepam (KlonoPIN) 0.5 mg BID PO 02/16/21 21:00 02/27/21 19:54 DC 02/27/21 10:11 Dicyclomine HCl (Bentyl) 20 mg TID PO 02/16/21 21:00 03/04/21 09:21 DC 03/03/21 21:07 Diphenoxylate HCl/ Atropine (Lomotil) 2 tab BID PO 02/16/21 21:00 03/04/21 09:21 DC 03/03/21 21:08 Divalproex Sodium (Depakote Er) 1,000 mg HS PO 02/16/21 21:00 03/07/21 20:15 DC 03/04/21 21:43 Duloxetine HCl (Cymbalta) 30 mg BID PO 02/16/21 21:00 03/07/21 20:15 DC 03/06/21 08:14 Fluticasone Propionate (Flonase) 2 spray DAILY NS 02/17/21 09:00 04/09/21 08:51 Furosemide (Lasix) 20 mg DAILY PO 02/17/21 09:00 03/04/21 09:21 DC 03/03/21 08:32 Gabapentin (Neurontin) 300 mg QID PO 02/16/21 17:00 04/09/21 19:50 Hydroxyurea (Hydrea) 1,000 mg DAILY PO 02/17/21 09:00 04/09/21 09:00 Levetiracetam (Keppra) 250 mg BID PO 02/16/21 21:00 03/02/21 14:48 DC 03/02/21 09:54 Lidocaine (Lidoderm) 1 patch DAILY TP 02/17/21 09:00 02/17/21 09:24 DC Al Hydroxide/Mg Hydroxide (Mylanta Plus Xs) 15 ml PRN AFTMEALHC PRN PO DYSPEPSIA 02/16/21 17:00 02/16/21 17:36 DC Mirabegron (Myrbetriq) 50 mg DAILY PO 02/17/21 09:00 03/04/21 09:21 DC 03/03/21 08:30 Nystatin (Nystop) 1 debra BID TP 02/16/21 21:00 04/09/21 19:51 Pantoprazole Sodium (Protonix) 40 mg DAILYAC PO 02/17/21 07:30 04/09/21 08:53 Potassium Chloride (Klor-Con) 40 meq DAILY PO 02/17/21 09:00 03/04/21 09:21 DC 03/03/21 08:32 Sulfasalazine (Azulfidine) 500 mg TID PO 02/16/21 21:00 03/07/21 20:15 DC 03/06/21 13:05 Trazodone HCl (Desyrel) 50 mg QHS PO 02/16/21 21:00 04/09/21 19:48 Non-Formulary Medication (Albuterol Sulfate (Albuterol Sulfate Conc Neb Soln)) 1 vial PRN Q4HRS PRN NEB SHORTNESS OF BREATH 02/16/21 17:00 02/16/21 17:49 DC Ascorbic Acid (Vitamin C) 1,000 mg DAILY PO 02/17/21 09:00 03/04/21 09:21 DC 03/03/21 08:34 Diltiazem HCl (Cardizem) 60 mg BID PO 02/16/21 21:00 04/09/21 19:47 Lactobacillus Rhamnosus (Culturelle) 1 cap DAILY PO 02/17/21 09:00 03/04/21 09:21 DC 03/03/21 08:32 Amylase/Lipase/ Protease (Zenpep 10,000) 1 cap TIDBFRMEAL PO 02/17/21 07:30 04/09/21 16:26 Non-Formulary Medication (Magnesium Hydroxide (Milk Of Magnesia)) 2,400 mg PRN DAILY PRN PO CONSTIPATION 02/16/21 17:00 02/16/21 17:37 DC Magnesium Oxide (Magnesium Oxide) 400 mg DAILY PO 02/17/21 09:00 03/04/21 09:21 DC 03/03/21 08:31 Non-Formulary Medication (Methyl Salicylate/ Menthol (Analgesic [place])) 1 debra PRN Q6HRS PRN TP MUSCLE PAIN 02/16/21 17:00 02/16/21 17:37 DC Non-Formulary Medication (Umeclidinium [place] (Incruse Ellipta)) 62.5 mcg DAILY IH 02/17/21 09:00 02/16/21 17:49 DC Non-Formulary Medication (Zinc Gluconate ) 50 mg DAILY PO 02/17/21 09:00 02/16/21 17:46 DC Albuterol/ Ipratropium (Duoneb) 3 ml RTQID NEB 02/16/21 20:00 02/17/21 19:52 DC Albuterol Sulfate (Ventolin) 2.5 mg PRN Q4HRS PRN NEB SHORTNESS OF BREATH 02/16/21 18:00 Influenza Virus Vaccine Quadrival (Flulaval Quad [id number] Syringe) 0.5 ml ONCE ONCE VAX IM 02/17/21 09:00 02/17/21 09:01 DC 02/17/21 09:21 Lidocaine (Lidoderm) 1 patch DAILY PRN TP pain 02/17/21 09:30 03/29/21 12:01 DC 03/28/21 08:37 Albuterol/ Ipratropium (Combivent Respimat 20-100 Mcg) 1 puff RTQID INH 02/17/21 20:00 04/09/21 19:52 Sertraline HCl (Zoloft) 25 mg DAILY PO 02/22/21 09:00 02/24/21 10:00 DC 02/24/21 09:59 Sertraline HCl (Zoloft) 50 mg DAILY PO 02/25/21 09:00 03/01/21 18:30 DC 03/01/21 10:07 Olanzapine (ZyPREXA ZYDIS) 5 mg 1X ONCE PO 02/26/21 12:03 02/26/21 12:09 DC 02/26/21 12:25 Clonazepam (KlonoPIN) 0.5 mg DAILY PO 02/28/21 09:00 03/02/21 07:00 DC 03/01/21 10:07 Bupropion HCl (Wellbutrin Xl) 150 mg DAILY PO 03/02/21 09:00 03/08/21 15:46 DC 03/08/21 08:41 Levetiracetam (Keppra) 250 mg DAILY PO 03/03/21 09:00 04/09/21 08:53 Aripiprazole (Abilify) 5 mg DAILY PO 03/05/21 09:00 04/09/21 08:53 Ondansetron HCl (Zofran Odt) 4 mg PRN Q4HRS PRN PO NAUSEA/VOMITING 03/06/21 19:30 04/02/21 09:23 Potassium Chloride (Klor-Con) 30 meq BID PO 03/07/21 09:00 04/09/21 19:49 Divalproex Sodium (Depakote Er) 1,000 mg 1700 PO 03/08/21 17:00 03/12/21 00:01 DC 03/11/21 17:27 Duloxetine HCl (Cymbalta) 30 mg 0900,1700 PO 03/08/21 17:00 04/09/21 17:23 Sulfasalazine (Azulfidine) 500 mg 0900,1300,1700 PO 03/08/21 09:00 04/09/21 17:23 Bupropion HCl (Wellbutrin Xl) 300 mg DAILY PO 03/09/21 09:00 04/09/21 09:00 Potassium Chloride (Klor-Con) 40 meq 1630,1730 PO 03/08/21 16:30 03/08/21 18:04 DC 03/08/21 16:57 Potassium Chloride (Klor-Con) 40 meq 1700,1800 PO 03/08/21 17:15 03/08/21 18:04 DC 03/08/21 17:56 Divalproex Sodium (Depakote Sprinkles) 500 mg BID PO 03/12/21 09:00 04/09/21 19:50 Clotrimazole (Mycelex-7) 1 debra QHS VG 03/18/21 21:00 03/25/21 20:59 DC 03/24/21 20:20 Dicyclomine HCl (Bentyl) 20 mg TID PO 03/18/21 21:00 04/09/21 19:48 Diphenoxylate HCl/ Atropine (Lomotil) 2 tab BID PO 03/18/21 21:00 04/09/21 19:49 Lidocaine (Lidoderm) 1 patch PRN DAILY PRN TP pain 03/29/21 12:15 I have reviewed the current psychotropics carefully including drug interactions. Risk benefit ratio favors no change other than as noted in my dictated progress note. Diagnosis: Problems: (1) Impulse control disorder, unspecified (2) Mild cognitive impairment (3) Anxiety disorder, unspecified (4) Bipolar disorder, curr episode mixed, severe, with psychotic features (5) Bipolar 1 disorder, depressed NITHIN STEVENS MD Apr 09, 2021 20:21
--- NOTE | 2021-04-09 23:30 | NUR ---
Patient is in the day room on assumption of care, sitting in a wheelchair and watching television with her peers. She is flat, disorganized. Pleasant in her interactions with this nurse. Compliant with assessments and medications whole, a few at a time on a spoon. Cooperative with HS care. She has had no agitated or attention seeking behaviors so far this shift. Denies SI. Denies any pain or discomfort. Patient appears to be sleeping comfortably at present time. Will continue to monitor.
--- NOTE | 2021-04-10 00:12 | NUR ---
Dr Alvarado called and gave order to discontinue Keppra. Medication discontinued.
--- NOTE | 2021-04-10 00:58 | CONS ---
DATE OF CONSULTATION: 02/26/2021 NEUROLOGY CONSULTATION REFERRING PHYSICIAN: Dr. Duffy. REASON FOR CONSULTATION: History of seizure and current behavior disturbances. HISTORY OF PRESENT ILLNESS: This is a 70-year-old right-handed female who is a resident at [facility] was admitted on 02/16/2021 on account of severe behavior disturbances including combative behavior, refusing oxygen for her COPD and severe depression, verbalizing wishing to . She has been agitated and refusing sometimes her medication, especially oxygen. It was reported that she took her oxygen supplement several times and at one time, her oxygen saturation dropped to 66%. Therefore, she had to go to Emergency Room for further evaluation. Neuro consult was requested because the patient has had a chronic history of a seizure disorder and fibromyalgia. The patient did not recall last seizure; however, she does not recall the etiology of her seizure. The patient told me that her last seizure was 3-4 years ago and described as generalized tonic-clonic seizure with loss of consciousness; however, she does not recall the course of the seizure. She also complains of generalized pain and muscle symptoms and she was diagnosed with fibromyalgia. The patient denies bowel or bladder incontinence during the spells. She has been on several anticonvulsants including gabapentin, Depakote and generic of Keppra. The neuro consult was mainly requested for evaluation of a seizure and management. There are not any concrete sources indicating he frequency of her seizure. The patient does not recall spells of seizure-like activities. PAST MEDICAL HISTORY: Quite significant for Crohn's disease, irritable bowel syndrome, decline in mental status and diagnosed with mild dementia, chronic obstructive pulmonary disease, gastroesophageal reflux disease, and seizure disorder as above. PAST SURGICAL HISTORY: Significant for multiple abdominal surgeries for Crohn's disease. PAST PSYCHIATRIC HISTORY: Significant for bipolar disorders, severe depressions and anxiety disorder. CURRENT HOME MEDICATIONS: Includes sulfasalazine, hydroxyurea, dicyclomine, Ellipta, albuterol inhaler, clonazepam, Keppra 250 mg b.i.d., Cymbalta 30 mg twice daily for possible fibromyalgia, trazodone, Flonase inhaler, Protonix, Lidoderm patch for pain, Myrbetriq, and Vitamin D3. ALLERGIES: CEFOXITIN, CODEINE, GLUTEN, LACTOSE, LIPITOR, AND BUTORPHANOL. FAMILY HISTORY: Noncontributory. SOCIAL HISTORY: The patient is a resident at [facility]. She denies smoking, alcohol drinking or illicit drug use. PHYSICAL EXAMINATION: GENERAL: Well-developed, well-nourished female, not in acute distress. VITAL SIGNS: Stable, afebrile. Blood pressure is 119/76, respiratory rate 18, pulse is 86 and regular, temperature is 98.1, oxygen saturation is 95% on 3 liters per nasal cannula. HEENT: Normocephalic, atraumatic. otherwise unremarkable. NECK: Supple, negative for carotid bruit, lymphadenopathy or thyromegaly. LUNGS: Clear to A and P. CARDIOVASCULAR: Regular rate and rhythm. Normal S1 and S2. There is no S3, S4 or murmur. ABDOMEN: Soft. Bowel sounds positive. EXTREMITIES: Negative for clubbing, cyanosis, or pedal edema. NEUROLOGIC: Mental status: The patient is alert and oriented to herself. Speech is fluent. There is no language dysfunction. Memory, judgment and abstracting thinking are fair. The patient denies hallucination or delusion. Cranial nerves: Visual heredia are full. The pupils are reactive to light and accommodation. The extraocular movements are intact. There is no nystagmus. There is no facial motor or sensory deficits. Hearing is intact bilaterally. The palate is elevated symmetrically. Sternocleidomastoid muscles are powerful bilaterally. The patient shrugs her shoulders symmetrically, protrudes her tongue in the midline without fasciculation or atrophy. Motor exam: No focal muscle bulk wasting. The tone is normal. The strength is 4/5 throughout. Sensory examination revealed normal pinprick, light touch, vibratory and position senses. Deep tendon reflexes were asymmetric and active without pathology responses. Gait and coordination are normal. LABORATORY DATA: From 02/25/2021 revealed white blood cells of 3.5 thousand, hemoglobin 11, hematocrit 33.6, platelet count 126,000. Chemistry from 02/25/2021 revealed sodium 138, potassium 3.7, chloride 100, CO2 of 38, BUN 9, creatinine 0.5, glucose 108, calcium 8.3. Liver enzymes are elevated. Vitamin D is high at 113 and thyroid profile is normal. Urinalysis, no evidence of urinary tract infections. Urine drug screen revealed valproic acid was 60 on 02/16/2021. IMPRESSION: 1. Longstanding history of seizure disorder, etiology uncertain. The patient does not recall the last seizure; however, she stated it was possible 3-4 years ago, described as generalized tonic-clonic seizure. The patient has been on Depakote for underlying bipolar disorder and gabapentin for possible fibromyalgia along with Cymbalta. However, she has been taking generic Keppra 250 mg twice daily. 2. Multiple medical problems including COPD, Crohn's disease, irritable bowel syndrome, fibromyalgia. 3. Multiple psychiatric problems including bipolar disorders, anxiety disorder and behavior disturbances. RECOMMENDATIONS: 1. As the patient has been on multiple anticonvulsants and has not had any recurrent seizure for the last 3-4 years, will cut back on Keppra to 250 mg at night and gradually will discontinue Keppra completely. 2. We will continue with current medical and psychiatric care. CUCA DR: Kelsi TID: [id number]
[2021-04-10 06:06] VITALS: BP 131/78
--- NOTE | 2021-04-10 06:55 | PDOC ---
Exam Note: Napoleon Note: This note is a late entry for 04/09/2021 covers elements not covered in my initial note. Subjective: The patient was seen individually in the evening of 04/09/2021 with Dipesh BARR, discussed and reviewed the chart. The patient slept 8 hours previous night. Overall she is doing better. She has been anxious, stating another demented patient who has been readjusting her oxygen. She has been taking her medications herself. I met with her in the dayroom. Review of Systems: Impaired ambulation in Broda chair. Shortness of breath on O2 supplements. No CV, , eye, ENT system symptoms on review. Mental Status Exam: The patient is oriented to herself and situation. Speech coherent. Abstraction fair. Computation impaired. Language function intact. Mood and affect anxious, labile. She is pointing to the other demented patient on the unit who has been adjusting her oxygen and making her [place] her finger around her head indicating that this other patient had lost his memory which in fact is true. Laboratory Data: Reviewed. Impression: Bipolar disorder, depressed. Anxiety disorder unspecified. Impulse control disorder unspecified. Plan: No change from initial note. Assessment: Vital Signs/I&O: Vital Signs Date Time Temp Pulse Resp B/P (MAP) Pulse Ox O2 Delivery O2 Flow Rate FiO2 04/10/21 06:06 98.1 93 18 131/78 (95) 93 2.0 04/09/21 05:40 Nasal Cannula l I & O 04/09/21 04/09/21 04/10/21 15:00 23:00 07:00 Intake Total 880 ml 480 ml Balance 880 ml 480 ml Current Medications: Meds: Current Medications Medications (Trade) Dose Ordered Sig/Mya Route PRN Reason Start Time Stop Time Status Last Admin Dose Admin Acetaminophen (Tylenol) 650 mg PRN Q6HRS PRN PO MILD PAIN / TEMP > 100.3'F 02/16/21 15:45 03/04/21 09:21 DC 02/18/21 06:31 Multi-Ingredient Ointment (Analgesic [place]) 1 debra PRN QID PRN TP MUSCLE PAIN 02/16/21 15:45 03/04/21 09:21 DC Al Hydroxide/Mg Hydroxide (Mylanta Plus Xs) 15 ml PRN AFTMEALHC PRN PO DYSPEPSIA 02/16/21 15:45 03/04/21 22:05 Magnesium Hydroxide (Milk Of Magnesia) 2,400 mg PRN QHS PRN PO 1ST CHOICE CONSTIPATION 02/16/21 15:45 03/04/21 09:21 DC Acetaminophen (Tylenol) 1,000 mg Q6HRS PRN PO pain or fever 02/16/21 17:00 02/16/21 17:35 DC Acetaminophen (Tylenol) 500 mg Q4HRS PRN PO MILD PAIN 1-3 02/16/21 17:00 02/16/21 17:36 DC Bisacodyl (Dulcolax Tab) 5 mg PRN DAILY PRN PO 2ND CHOICE CONSTIPATION 02/16/21 17:00 03/04/21 09:21 DC Vitamin D (Vitamin D3) 50,000 unit WEEKLY PO 02/22/21 09:00 03/04/21 09:21 DC 02/22/21 07:16 Clonazepam (KlonoPIN) 0.5 mg BID PO 02/16/21 21:00 02/27/21 19:54 DC 02/27/21 10:11 Dicyclomine HCl (Bentyl) 20 mg TID PO 02/16/21 21:00 03/04/21 09:21 DC 03/03/21 21:07 Diphenoxylate HCl/ Atropine (Lomotil) 2 tab BID PO 02/16/21 21:00 03/04/21 09:21 DC 03/03/21 21:08 Divalproex Sodium (Depakote Er) 1,000 mg HS PO 02/16/21 21:00 03/07/21 20:15 DC 03/04/21 21:43 Duloxetine HCl (Cymbalta) 30 mg BID PO 02/16/21 21:00 03/07/21 20:15 DC 03/06/21 08:14 Fluticasone Propionate (Flonase) 2 spray DAILY NS 02/17/21 09:00 04/09/21 08:51 Furosemide (Lasix) 20 mg DAILY PO 02/17/21 09:00 03/04/21 09:21 DC 03/03/21 08:32 Gabapentin (Neurontin) 300 mg QID PO 02/16/21 17:00 04/09/21 19:50 Hydroxyurea (Hydrea) 1,000 mg DAILY PO 02/17/21 09:00 04/09/21 09:00 Levetiracetam (Keppra) 250 mg BID PO 02/16/21 21:00 03/02/21 14:48 DC 03/02/21 09:54 Lidocaine (Lidoderm) 1 patch DAILY TP 02/17/21 09:00 02/17/21 09:24 DC Al Hydroxide/Mg Hydroxide (Mylanta Plus Xs) 15 ml PRN AFTMEALHC PRN PO DYSPEPSIA 02/16/21 17:00 02/16/21 17:36 DC Mirabegron (Myrbetriq) 50 mg DAILY PO 02/17/21 09:00 03/04/21 09:21 DC 03/03/21 08:30 Nystatin (Nystop) 1 debra BID TP 02/16/21 21:00 04/09/21 19:51 Pantoprazole Sodium (Protonix) 40 mg DAILYAC PO 02/17/21 07:30 04/09/21 08:53 Potassium Chloride (Klor-Con) 40 meq DAILY PO 02/17/21 09:00 03/04/21 09:21 DC 03/03/21 08:32 Sulfasalazine (Azulfidine) 500 mg TID PO 02/16/21 21:00 03/07/21 20:15 DC 03/06/21 13:05 Trazodone HCl (Desyrel) 50 mg QHS PO 02/16/21 21:00 04/09/21 19:48 Non-Formulary Medication (Albuterol Sulfate (Albuterol Sulfate Conc Neb Soln)) 1 vial PRN Q4HRS PRN NEB SHORTNESS OF BREATH 02/16/21 17:00 02/16/21 17:49 DC Ascorbic Acid (Vitamin C) 1,000 mg DAILY PO 02/17/21 09:00 03/04/21 09:21 DC 03/03/21 08:34 Diltiazem HCl (Cardizem) 60 mg BID PO 02/16/21 21:00 04/09/21 19:47 Lactobacillus Rhamnosus (Culturelle) 1 cap DAILY PO 02/17/21 09:00 03/04/21 09:21 DC 03/03/21 08:32 Amylase/Lipase/ Protease (Zenpep 10,000) 1 cap TIDBFRMEAL PO 02/17/21 07:30 04/09/21 16:26 Non-Formulary Medication (Magnesium Hydroxide (Milk Of Magnesia)) 2,400 mg PRN DAILY PRN PO CONSTIPATION 02/16/21 17:00 02/16/21 17:37 DC Magnesium Oxide (Magnesium Oxide) 400 mg DAILY PO 02/17/21 09:00 03/04/21 09:21 DC 03/03/21 08:31 Non-Formulary Medication (Methyl Salicylate/ Menthol (Analgesic [place])) 1 debra PRN Q6HRS PRN TP MUSCLE PAIN 02/16/21 17:00 02/16/21 17:37 DC Non-Formulary Medication (Umeclidinium [place] (Incruse Ellipta)) 62.5 mcg DAILY IH 02/17/21 09:00 02/16/21 17:49 DC Non-Formulary Medication (Zinc Gluconate ) 50 mg DAILY PO 02/17/21 09:00 02/16/21 17:46 DC Albuterol/ Ipratropium (Duoneb) 3 ml RTQID NEB 02/16/21 20:00 02/17/21 19:52 DC Albuterol Sulfate (Ventolin) 2.5 mg PRN Q4HRS PRN NEB SHORTNESS OF BREATH 02/16/21 18:00 Influenza Virus Vaccine Quadrival (Flulaval Quad [id number] Syringe) 0.5 ml ONCE ONCE VAX IM 02/17/21 09:00 02/17/21 09:01 DC 02/17/21 09:21 Lidocaine (Lidoderm) 1 patch DAILY PRN TP pain 02/17/21 09:30 03/29/21 12:01 DC 03/28/21 08:37 Albuterol/ Ipratropium (Combivent Respimat 20-100 Mcg) 1 puff RTQID INH 02/17/21 20:00 04/09/21 19:52 Sertraline HCl (Zoloft) 25 mg DAILY PO 02/22/21 09:00 02/24/21 10:00 DC 02/24/21 09:59 Sertraline HCl (Zoloft) 50 mg DAILY PO 02/25/21 09:00 03/01/21 18:30 DC 03/01/21 10:07 Olanzapine (ZyPREXA ZYDIS) 5 mg 1X ONCE PO 02/26/21 12:03 02/26/21 12:09 DC 02/26/21 12:25 Clonazepam (KlonoPIN) 0.5 mg DAILY PO 02/28/21 09:00 03/02/21 07:00 DC 03/01/21 10:07 Bupropion HCl (Wellbutrin Xl) 150 mg DAILY PO 03/02/21 09:00 03/08/21 15:46 DC 03/08/21 08:41 Levetiracetam (Keppra) 250 mg DAILY PO 03/03/21 09:00 04/10/21 00:12 DC 04/09/21 08:53 Aripiprazole (Abilify) 5 mg DAILY PO 03/05/21 09:00 04/09/21 08:53 Ondansetron HCl (Zofran Odt) 4 mg PRN Q4HRS PRN PO NAUSEA/VOMITING 03/06/21 19:30 04/02/21 09:23 Potassium Chloride (Klor-Con) 30 meq BID PO 03/07/21 09:00 04/09/21 19:49 Divalproex Sodium (Depakote Er) 1,000 mg 1700 PO 03/08/21 17:00 03/12/21 00:01 DC 03/11/21 17:27 Duloxetine HCl (Cymbalta) 30 mg 0900,1700 PO 03/08/21 17:00 04/09/21 17:23 Sulfasalazine (Azulfidine) 500 mg 0900,1300,1700 PO 03/08/21 09:00 04/09/21 17:23 Bupropion HCl (Wellbutrin Xl) 300 mg DAILY PO 03/09/21 09:00 04/09/21 09:00 Potassium Chloride (Klor-Con) 40 meq 1630,1730 PO 03/08/21 16:30 03/08/21 18:04 DC 03/08/21 16:57 Potassium Chloride (Klor-Con) 40 meq 1700,1800 PO 03/08/21 17:15 03/08/21 18:04 DC 03/08/21 17:56 Divalproex Sodium (Depakote Sprinkles) 500 mg BID PO 03/12/21 09:00 04/09/21 19:50 Clotrimazole (Mycelex-7) 1 debra QHS VG 03/18/21 21:00 03/25/21 20:59 DC 03/24/21 20:20 Dicyclomine HCl (Bentyl) 20 mg TID PO 03/18/21 21:00 04/09/21 19:48 Diphenoxylate HCl/ Atropine (Lomotil) 2 tab BID PO 03/18/21 21:00 04/09/21 19:49 Lidocaine (Lidoderm) 1 patch PRN DAILY PRN TP pain 03/29/21 12:15 I have reviewed the current psychotropics carefully including drug interactions. Risk benefit ratio favors no change other than as noted in my dictated progress note. Diagnosis: Problems: (1) Impulse control disorder, unspecified (2) Mild cognitive impairment (3) Anxiety disorder, unspecified (4) Bipolar disorder, curr episode mixed, severe, with psychotic features (5) Bipolar 1 disorder, depressed NITHIN STEVENS MD Apr 10, 2021 06:55
[2021-04-10] MEDS: FLUTICASONE 50MCG/NASAL SPRAY 16GM BOTTLE. NS SCH (08:39)
[2021-04-10] MEDS: IPRATROPIUM/ALBUTEROL 20/100mcg/INH INHALER. INH SCH ×4 (08:39→20:33)
[2021-04-10] MEDS: POTASSIUM CHLORIDE 10 MEQ TABLET.ER. PO SCH ×2 (08:41→20:32)
[2021-04-10] MEDS: dilTIAZem HCL 30 MG TABLET PO SCH ×2 (08:42→20:33)
[2021-04-10] MEDS: ARIPiprazole 5 MG TABLET PO SCH (08:42)
[2021-04-10] MEDS: DIVALPROEX 125 MG CAP.SPRINK PO SCH ×2 (08:42→20:32)
[2021-04-10] MEDS: LIPASE/PROTEAS/AMYLAS 10/32/42 CAPSULE.DR. PO SCH ×3 (08:42→17:28)
[2021-04-10] MEDS: PANTOPRAZOLE 40 MG TABLET. PO SCH (08:42)
[2021-04-10] MEDS: DIPHENOXYLATE/ATROPINE TABLET. PO SCH ×2 (08:43→20:35)
[2021-04-10] MEDS: buPROPion XL 300 MG TAB.ER.24H. PO SCH (08:43)
[2021-04-10] MEDS: DICYCLOMINE HCL 20 MG TABLET PO SCH ×3 (08:43→20:33)
[2021-04-10] MEDS: DULoxetine HCL 30 MG CAPSULE.DR PO SCH ×2 (08:43→17:28)
[2021-04-10] MEDS: sulfaSALAzine 500 MG TABLET PO SCH ×3 (08:43→17:28)
[2021-04-10] MEDS: GABAPENTIN 300 MG CAPSULE. PO SCH ×4 (08:43→20:33)
[2021-04-10] MEDS: HYDROXYUREA 500 MG CAPSULE PO SCH (08:48)
[2021-04-10] MEDS: NYSTATIN TOPICAL POWDER 15GM BOTTLE. TP SCH ×2 (09:00→20:35)
--- NOTE | 2021-04-10 14:04 | NUR ---
Nursing note: Patient in dining room for morning medications & assessment. She is compliant taking medications whole. She is A/O X4, somewhat confused as she thought her mother was here. She is pleasant, compliant, & interactive with peers. Patient denies pain/discomfort at this time. She laid down after breakfast and then went to day room before & after lunch. She is currently in the day room. Will continue to monitor.
[2021-04-10 15:28] VITALS: BP 110/72
[2021-04-10] MEDS: traZODone 50 MG TABLET. PO SCH (20:33)
--- NOTE | 2021-04-10 21:09 | PDOC ---
Exam Note: Napoleon Note: Please also refer to the separate dictated note~for this date of service dictated separately.~Patient seen individually. Discussed the patient with Nursing staff reviewed the chart.~Reviewed interim history and current functioning. Reviewed vital signs,~Labs/ Radiology~and current medications noted below. Continue current treatment with the changes noted in the dictated addendum note Assessment: Vital Signs/I&O: Vital Signs Date Time Temp Pulse Resp B/P (MAP) Pulse Ox O2 Delivery O2 Flow Rate FiO2 04/10/21 20:33 90 110/72 04/10/21 15:28 98.1 16 92 2.0 04/09/21 05:40 Nasal Cannula I & O 0 04/09/21 04/09/21 04/10/21 14:59 22:59 06:59 Intake Total 880 ml 480 ml Balance 880 ml 480 ml Current Medications: Meds: Current Medications Medications (Trade) Dose Ordered Sig/Mya Route PRN Reason Start Time Stop Time Status Last Admin Dose Admin Acetaminophen (Tylenol) 650 mg PRN Q6HRS PRN PO MILD PAIN / TEMP > 100.3'F 02/16/21 15:45 03/04/21 09:21 DC 02/18/21 06:31 Multi-Ingredient Ointment (Analgesic [place]) 1 debra PRN QID PRN TP MUSCLE PAIN 02/16/21 15:45 03/04/21 09:21 DC Al Hydroxide/Mg Hydroxide (Mylanta Plus Xs) 15 ml PRN AFTMEALHC PRN PO DYSPEPSIA 02/16/21 15:45 03/04/21 22:05 Magnesium Hydroxide (Milk Of Magnesia) 2,400 mg PRN QHS PRN PO 1ST CHOICE CONSTIPATION 02/16/21 15:45 03/04/21 09:21 DC Acetaminophen (Tylenol) 1,000 mg Q6HRS PRN PO pain or fever 02/16/21 17:00 02/16/21 17:35 DC Acetaminophen (Tylenol) 500 mg Q4HRS PRN PO MILD PAIN 1-3 02/16/21 17:00 02/16/21 17:36 DC Bisacodyl (Dulcolax Tab) 5 mg PRN DAILY PRN PO 2ND CHOICE CONSTIPATION 02/16/21 17:00 03/04/21 09:21 DC Vitamin D (Vitamin D3) 50,000 unit WEEKLY PO 02/22/21 09:00 03/04/21 09:21 DC 02/22/21 07:16 Clonazepam (KlonoPIN) 0.5 mg BID PO 02/16/21 21:00 02/27/21 19:54 DC 02/27/21 10:11 Dicyclomine HCl (Bentyl) 20 mg TID PO 02/16/21 21:00 03/04/21 09:21 DC 03/03/21 21:07 Diphenoxylate HCl/ Atropine (Lomotil) 2 tab BID PO 02/16/21 21:00 03/04/21 09:21 DC 03/03/21 21:08 Divalproex Sodium (Depakote Er) 1,000 mg HS PO 02/16/21 21:00 03/07/21 20:15 DC 03/04/21 21:43 Duloxetine HCl (Cymbalta) 30 mg BID PO 02/16/21 21:00 03/07/21 20:15 DC 03/06/21 08:14 Fluticasone Propionate (Flonase) 2 spray DAILY NS 02/17/21 09:00 04/10/21 08:39 Furosemide (Lasix) 20 mg DAILY PO 02/17/21 09:00 03/04/21 09:21 DC 03/03/21 08:32 Gabapentin (Neurontin) 300 mg QID PO 02/16/21 17:00 04/10/21 20:33 Hydroxyurea (Hydrea) 1,000 mg DAILY PO 02/17/21 09:00 04/10/21 08:48 Levetiracetam (Keppra) 250 mg BID PO 02/16/21 21:00 03/02/21 14:48 DC 03/02/21 09:54 Lidocaine (Lidoderm) 1 patch DAILY TP 02/17/21 09:00 02/17/21 09:24 DC Al Hydroxide/Mg Hydroxide (Mylanta Plus Xs) 15 ml PRN AFTMEALHC PRN PO DYSPEPSIA 02/16/21 17:00 02/16/21 17:36 DC Mirabegron (Myrbetriq) 50 mg DAILY PO 02/17/21 09:00 03/04/21 09:21 DC 03/03/21 08:30 Nystatin (Nystop) 1 debra BID TP 02/16/21 21:00 04/10/21 20:35 Pantoprazole Sodium (Protonix) 40 mg DAILYAC PO 02/17/21 07:30 04/10/21 08:42 Potassium Chloride (Klor-Con) 40 meq DAILY PO 02/17/21 09:00 03/04/21 09:21 DC 03/03/21 08:32 Sulfasalazine (Azulfidine) 500 mg TID PO 02/16/21 21:00 03/07/21 20:15 DC 03/06/21 13:05 Trazodone HCl (Desyrel) 50 mg QHS PO 02/16/21 21:00 04/10/21 20:33 Non-Formulary Medication (Albuterol Sulfate (Albuterol Sulfate Conc Neb Soln)) 1 vial PRN Q4HRS PRN NEB SHORTNESS OF BREATH 02/16/21 17:00 02/16/21 17:49 DC Ascorbic Acid (Vitamin C) 1,000 mg DAILY PO 02/17/21 09:00 03/04/21 09:21 DC 03/03/21 08:34 Diltiazem HCl (Cardizem) 60 mg BID PO 02/16/21 21:00 04/10/21 20:33 Lactobacillus Rhamnosus (Culturelle) 1 cap DAILY PO 02/17/21 09:00 03/04/21 09:21 DC 03/03/21 08:32 Amylase/Lipase/ Protease (Zenpep 10,000) 1 cap TIDBFRMEAL PO 02/17/21 07:30 04/10/21 17:28 Non-Formulary Medication (Magnesium Hydroxide (Milk Of Magnesia)) 2,400 mg PRN DAILY PRN PO CONSTIPATION 02/16/21 17:00 02/16/21 17:37 DC Magnesium Oxide (Magnesium Oxide) 400 mg DAILY PO 02/17/21 09:00 03/04/21 09:21 DC 03/03/21 08:31 Non-Formulary Medication (Methyl Salicylate/ Menthol (Analgesic [place])) 1 debra PRN Q6HRS PRN TP MUSCLE PAIN 02/16/21 17:00 02/16/21 17:37 DC Non-Formulary Medication (Umeclidinium [place] (Incruse Ellipta)) 62.5 mcg DAILY IH 02/17/21 09:00 02/16/21 17:49 DC Non-Formulary Medication (Zinc Gluconate ) 50 mg DAILY PO 02/17/21 09:00 02/16/21 17:46 DC Albuterol/ Ipratropium (Duoneb) 3 ml RTQID NEB 02/16/21 20:00 02/17/21 19:52 DC Albuterol Sulfate (Ventolin) 2.5 mg PRN Q4HRS PRN NEB SHORTNESS OF BREATH 02/16/21 18:00 Influenza Virus Vaccine Quadrival (Flulaval Quad [id number] Syringe) 0.5 ml ONCE ONCE VAX IM 02/17/21 09:00 02/17/21 09:01 DC 02/17/21 09:21 Lidocaine (Lidoderm) 1 patch DAILY PRN TP pain 02/17/21 09:30 03/29/21 12:01 DC 03/28/21 08:37 Albuterol/ Ipratropium (Combivent Respimat 20-100 Mcg) 1 puff RTQID INH 02/17/21 20:00 04/10/21 20:33 Sertraline HCl (Zoloft) 25 mg DAILY PO 02/22/21 09:00 02/24/21 10:00 DC 02/24/21 09:59 Sertraline HCl (Zoloft) 50 mg DAILY PO 02/25/21 09:00 03/01/21 18:30 DC 03/01/21 10:07 Olanzapine (ZyPREXA ZYDIS) 5 mg 1X ONCE PO 02/26/21 12:03 02/26/21 12:09 DC 02/26/21 12:25 Clonazepam (KlonoPIN) 0.5 mg DAILY PO 02/28/21 09:00 03/02/21 07:00 DC 03/01/21 10:07 Bupropion HCl (Wellbutrin Xl) 150 mg DAILY PO 03/02/21 09:00 03/08/21 15:46 DC 03/08/21 08:41 Levetiracetam (Keppra) 250 mg DAILY PO 03/03/21 09:00 04/10/21 00:12 DC 04/09/21 08:53 Aripiprazole (Abilify) 5 mg DAILY PO 03/05/21 09:00 04/10/21 08:42 Ondansetron HCl (Zofran Odt) 4 mg PRN Q4HRS PRN PO NAUSEA/VOMITING 03/06/21 19:30 04/02/21 09:23 Potassium Chloride (Klor-Con) 30 meq BID PO 03/07/21 09:00 04/10/21 20:32 Divalproex Sodium (Depakote Er) 1,000 mg 1700 PO 03/08/21 17:00 03/12/21 00:01 DC 03/11/21 17:27 Duloxetine HCl (Cymbalta) 30 mg 0900,1700 PO 03/08/21 17:00 04/10/21 17:28 Sulfasalazine (Azulfidine) 500 mg 0900,1300,1700 PO 03/08/21 09:00 04/10/21 17:28 Bupropion HCl (Wellbutrin Xl) 300 mg DAILY PO 03/09/21 09:00 04/10/21 08:43 Potassium Chloride (Klor-Con) 40 meq 1630,1730 PO 03/08/21 16:30 03/08/21 18:04 DC 03/08/21 16:57 Potassium Chloride (Klor-Con) 40 meq 1700,1800 PO 03/08/21 17:15 03/08/21 18:04 DC 03/08/21 17:56 Divalproex Sodium (Depakote Sprinkles) 500 mg BID PO 03/12/21 09:00 04/10/21 20:32 Clotrimazole (Mycelex-7) 1 debra QHS VG 03/18/21 21:00 03/25/21 20:59 DC 03/24/21 20:20 Dicyclomine HCl (Bentyl) 20 mg TID PO 03/18/21 21:00 04/10/21 20:33 Diphenoxylate HCl/ Atropine (Lomotil) 2 tab BID PO 03/18/21 21:00 04/10/21 20:35 Lidocaine (Lidoderm) 1 patch PRN DAILY PRN TP pain 03/29/21 12:15 I have reviewed the current psychotropics carefully including drug interactions. Risk benefit ratio favors no change other than as noted in my dictated progress note. Diagnosis: Problems: (1) Mild cognitive impairment (2) Impulse control disorder, unspecified (3) Anxiety disorder, unspecified (4) Bipolar disorder, curr episode mixed, severe, with psychotic features (5) Bipolar 1 disorder, depressed NITHIN STEVENS MD Apr 10, 2021 21:09
--- NOTE | 2021-04-10 23:35 | NUR ---
Patient in bed when this nurse arrived on shift. Patient calm yet delusional and stating that staff have been hitting her and everyone on dayshift hates her and laughs at her. Reassured her that this is not the case. Patient compliant with medications taken whole. Denies pain when asked.
[2021-04-11 06:26] VITALS: BP 114/77
[2021-04-11 06:42] LABS: BASO % 1 % (0-3); EOS # 0.1 x10^3/uL (0.0-0.7); EOS % 2 % (0-3); HEMATOCRIT 38.7 % (36.0-47.0); HEMOGLOBIN 13.1 g/dL (12.0-15.5); LYMPH # 0.7 x10^3/uL (1.0-4.8); LYMPH % 17 % (24-48); MEAN CORPUSCULAR HEMOGLOBIN 39 pg (25-35); MEAN CORPUSCULAR HGB CONC 34 g/dL (31-37); MEAN CORPUSCULAR VOLUME 114 fL (79-100); MONO # 0.4 x10^3/uL (0.0-1.1); MONO % 9 % (0-9); NEUT # 3.2 x10^3uL (1.8-7.7); NEUT % 72 % (31-73); PLATELET COUNT 228 x10^3/uL (140-400); RED CELL DISTRIBUTION WIDTH 15.5 % (11.5-14.5); WHITE BLOOD COUNT 4.5 x10^3/uL (4.0-11.0)
[2021-04-11 07:07] LABS: ALBUMIN 2.8 g/dL (3.4-5.0); ALBUMIN/GLOBULIN RATIO 0.8 (1.0-1.7); CALCIUM 8.6 mg/dL (8.5-10.1); CREATININE 0.6 mg/dL (0.6-1.0); GFR 99.1; POTASSIUM 4.1 mmol/L (3.5-5.1); TOTAL BILIRUBIN 0.5 mg/dL (0.2-1.0); TOTAL PROTEIN 6.3 g/dL (6.4-8.2)
[2021-04-11] MEDS: LIPASE/PROTEAS/AMYLAS 10/32/42 CAPSULE.DR. PO SCH ×3 (07:30→17:00)
[2021-04-11] MEDS: sulfaSALAzine 500 MG TABLET PO SCH ×3 (08:51→17:03)
[2021-04-11] MEDS: IPRATROPIUM/ALBUTEROL 20/100mcg/INH INHALER. INH SCH ×4 (08:51→20:12)
[2021-04-11] MEDS: FLUTICASONE 50MCG/NASAL SPRAY 16GM BOTTLE. NS SCH (08:51)
[2021-04-11] MEDS: POTASSIUM CHLORIDE 10 MEQ TABLET.ER. PO SCH ×2 (08:51→20:11)
[2021-04-11] MEDS: PANTOPRAZOLE 40 MG TABLET. PO SCH (08:52)
[2021-04-11] MEDS: HYDROXYUREA 500 MG CAPSULE PO SCH (08:53)
[2021-04-11] MEDS: dilTIAZem HCL 30 MG TABLET PO SCH ×2 (08:54→20:09)
[2021-04-11] MEDS: GABAPENTIN 300 MG CAPSULE. PO SCH ×4 (08:55→20:11)
[2021-04-11] MEDS: DICYCLOMINE HCL 20 MG TABLET PO SCH ×3 (08:55→20:11)
[2021-04-11] MEDS: DULoxetine HCL 30 MG CAPSULE.DR PO SCH ×2 (08:56→17:03)
[2021-04-11] MEDS: DIVALPROEX 125 MG CAP.SPRINK PO SCH ×2 (08:56→20:11)
[2021-04-11] MEDS: ARIPiprazole 5 MG TABLET PO SCH (08:57)
[2021-04-11] MEDS: buPROPion XL 300 MG TAB.ER.24H. PO SCH (08:59)
[2021-04-11] MEDS: DIPHENOXYLATE/ATROPINE TABLET. PO SCH ×2 (08:59→20:10)
[2021-04-11] MEDS: NYSTATIN TOPICAL POWDER 15GM BOTTLE. TP SCH ×2 (09:00→20:12)
--- NOTE | 2021-04-11 14:08 | NUR ---
Nursing note: Patient in dining room for morning medications & assessment. She is compliant taking medications whole. She is A/O X4, somewhat confused at times. She is pleasant, compliant, & interactive with peers. Patient denies pain/discomfort at this time. She interacts with groups. She is a stand by assist for transfers and cares. She is currently in the day room. Will continue to monitor.
[2021-04-11 15:53] VITALS: BP 110/70
[2021-04-11] MEDS: traZODone 50 MG TABLET. PO SCH (20:11)
--- NOTE | 2021-04-11 20:34 | PDOC ---
Exam Note: Napoleon Note: Please also refer to the separate dictated note~for this date of service dictated separately.~Patient seen individually. Discussed the patient with Nursing staff reviewed the chart.~Reviewed interim history and current functioning. Reviewed vital signs,~Labs/ Radiology~and current medications noted below. Continue current treatment with the changes noted in the dictated addendum note Assessment: Vital Signs/I&O: Vital Signs Date Time Temp Pulse Resp B/P (MAP) Pulse Ox O2 Delivery O2 Flow Rate FiO2 04/11/21 20:09 93 110/70 04/11/21 15:53 98.8 18 92 2.0 04/09/21 05:40 Nasal Cannula I & O 0 04/10/21 04/10/21 04/11/21 15:00 23:00 07:00 Intake Total 840 ml 360 ml Balance 840 ml 360 ml Labs: Laboratory Tests Test 04/11/21 06:20 White Blood Count 4.5 x10^3/uL (4.0-11.0) Red Blood Count 3.40 x10^6/uL (3.50-5.40) L Hemoglobin 13.1 g/dL (12.0-15.5) Hematocrit 38.7 % (36.0-47.0) Mean Corpuscular Volume 114 fL (79-100) H Mean Corpuscular Hemoglobin 39 pg (25-35) H Mean Corpuscular Hemoglobin Concent 34 g/dL (31-37) Red Cell Distribution Width 15.5 % (11.5-14.5) H Platelet Count 228 x10^3/uL (140-400) Neutrophils (%) (Auto) 72 % (31-73) Lymphocytes (%) (Auto) 17 % (24-48) L Monocytes (%) (Auto) 9 % (0-9) Eosinophils (%) (Auto) 2 % (0-3) Basophils (%) (Auto) 1 % (0-3) Neutrophils # (Auto) 3.2 x10^3uL (1.8-7.7) Lymphocytes # (Auto) 0.7 x10^3/uL (1.0-4.8) L Monocytes # (Auto) 0.4 x10^3/uL (0.0-1.1) Eosinophils # (Auto) 0.1 x10^3/uL (0.0-0.7) Basophils # (Auto) 0.0 x10^3/uL (0.0-0.2) Sodium Level 140 mmol/L (136-145) Potassium Level 4.1 mmol/L (3.5-5.1) Chloride Level 101 mmol/L (98-107) Carbon Dioxide Level 32 mmol/L (21-32) Anion Gap 7 (6-14) Blood Urea Nitrogen 12 mg/dL (7-20) Creatinine 0.6 mg/dL (0.6-1.0) Estimated GFR (Cockcroft-Gault) 99.1 BUN/Creatinine Ratio 20 (6-20) Glucose Level 90 mg/dL (70-99) Calcium Level 8.6 mg/dL (8.5-10.1) Total Bilirubin 0.5 mg/dL (0.2-1.0) Aspartate Amino Transferase (AST) 214 U/L (15-37) H Alanine Aminotransferase (ALT) 101 U/L (14-59) H Alkaline Phosphatase 116 U/L (46-116) Total Protein 6.3 g/dL (6.4-8.2) L Albumin 2.8 g/dL (3.4-5.0) L Albumin/Globulin Ratio 0.8 (1.0-1.7) L Current Medications: Meds: Laboratory Tests Test 04/11/21 06:20 White Blood Count 4.5 x10^3/uL Red Blood Count 3.40 x10^6/uL Hemoglobin 13.1 g/dL Hematocrit 38.7 % Mean Corpuscular Volume 114 fL Mean Corpuscular Hemoglobin 39 pg Mean Corpuscular Hemoglobin Concent 34 g/dL Red Cell Distribution Width 15.5 % Platelet Count 228 x10^3/uL Neutrophils (%) (Auto) 72 % Lymphocytes (%) (Auto) 17 % Monocytes (%) (Auto) 9 % Eosinophils (%) (Auto) 2 % Basophils (%) (Auto) 1 % Neutrophils # (Auto) 3.2 x10^3uL Lymphocytes # (Auto) 0.7 x10^3/uL Monocytes # (Auto) 0.4 x10^3/uL Eosinophils # (Auto) 0.1 x10^3/uL Basophils # (Auto) 0.0 x10^3/uL Sodium Level 140 mmol/L Potassium Level 4.1 mmol/L Chloride Level 101 mmol/L Carbon Dioxide Level 32 mmol/L Anion Gap 7 Blood Urea Nitrogen 12 mg/dL Creatinine 0.6 mg/dL Estimated GFR (Cockcroft-Gault) 99.1 BUN/Creatinine Ratio 20 Glucose Level 90 mg/dL Calcium Level 8.6 mg/dL Total Bilirubin 0.5 mg/dL Aspartate Amino Transf (AST/SGOT) 214 U/L Alanine Aminotransferase (ALT/SGPT) 101 U/L Alkaline Phosphatase 116 U/L Total Protein 6.3 g/dL Albumin 2.8 g/dL Albumin/Globulin Ratio 0.8 Current Medications Medications (Trade) Dose Ordered Sig/May Route PRN Reason Start Time Stop Time Status Last Admin Dose Admin Acetaminophen (Tylenol) 650 mg PRN Q6HRS PRN PO MILD PAIN / TEMP > 100.3'F 02/16/21 15:45 03/04/21 09:21 DC 02/18/21 06:31 Multi-Ingredient Ointment (Analgesic [place]) 1 debra PRN QID PRN TP MUSCLE PAIN 02/16/21 15:45 03/04/21 09:21 DC Al Hydroxide/Mg Hydroxide (Mylanta Plus Xs) 15 ml PRN AFTMEALHC PRN PO DYSPEPSIA 02/16/21 15:45 03/04/21 22:05 Magnesium Hydroxide (Milk Of Magnesia) 2,400 mg PRN QHS PRN PO 1ST CHOICE CONSTIPATION 02/16/21 15:45 03/04/21 09:21 DC Acetaminophen (Tylenol) 1,000 mg Q6HRS PRN PO pain or fever 02/16/21 17:00 02/16/21 17:35 DC Acetaminophen (Tylenol) 500 mg Q4HRS PRN PO MILD PAIN 1-3 02/16/21 17:00 02/16/21 17:36 DC Bisacodyl (Dulcolax Tab) 5 mg PRN DAILY PRN PO 2ND CHOICE CONSTIPATION 02/16/21 17:00 03/04/21 09:21 DC Vitamin D (Vitamin D3) 50,000 unit WEEKLY PO 02/22/21 09:00 03/04/21 09:21 DC 02/22/21 07:16 Clonazepam (KlonoPIN) 0.5 mg BID PO 02/16/21 21:00 02/27/21 19:54 DC 02/27/21 10:11 Dicyclomine HCl (Bentyl) 20 mg TID PO 02/16/21 21:00 03/04/21 09:21 DC 03/03/21 21:07 Diphenoxylate HCl/ Atropine (Lomotil) 2 tab BID PO 02/16/21 21:00 03/04/21 09:21 DC 03/03/21 21:08 Divalproex Sodium (Depakote Er) 1,000 mg HS PO 02/16/21 21:00 03/07/21 20:15 DC 03/04/21 21:43 Duloxetine HCl (Cymbalta) 30 mg BID PO 02/16/21 21:00 03/07/21 20:15 DC 03/06/21 08:14 Fluticasone Propionate (Flonase) 2 spray DAILY NS 02/17/21 09:00 04/11/21 08:51 Furosemide (Lasix) 20 mg DAILY PO 02/17/21 09:00 03/04/21 09:21 DC 03/03/21 08:32 Gabapentin (Neurontin) 300 mg QID PO 02/16/21 17:00 04/11/21 20:11 Hydroxyurea (Hydrea) 1,000 mg DAILY PO 02/17/21 09:00 04/11/21 08:53 Levetiracetam (Keppra) 250 mg BID PO 02/16/21 21:00 03/02/21 14:48 DC 03/02/21 09:54 Lidocaine (Lidoderm) 1 patch DAILY TP 02/17/21 09:00 02/17/21 09:24 DC Al Hydroxide/Mg Hydroxide (Mylanta Plus Xs) 15 ml PRN AFTMEALHC PRN PO DYSPEPSIA 02/16/21 17:00 02/16/21 17:36 DC Mirabegron (Myrbetriq) 50 mg DAILY PO 02/17/21 09:00 03/04/21 09:21 DC 03/03/21 08:30 Nystatin (Nystop) 1 debra BID TP 02/16/21 21:00 04/11/21 20:12 Pantoprazole Sodium (Protonix) 40 mg DAILYAC PO 02/17/21 07:30 04/11/21 08:52 Potassium Chloride (Klor-Con) 40 meq DAILY PO 02/17/21 09:00 03/04/21 09:21 DC 03/03/21 08:32 Sulfasalazine (Azulfidine) 500 mg TID PO 02/16/21 21:00 03/07/21 20:15 DC 03/06/21 13:05 Trazodone HCl (Desyrel) 50 mg QHS PO 02/16/21 21:00 04/11/21 20:11 Non-Formulary Medication (Albuterol Sulfate (Albuterol Sulfate Conc Neb Soln)) 1 vial PRN Q4HRS PRN NEB SHORTNESS OF BREATH 02/16/21 17:00 02/16/21 17:49 DC Ascorbic Acid (Vitamin C) 1,000 mg DAILY PO 02/17/21 09:00 03/04/21 09:21 DC 03/03/21 08:34 Diltiazem HCl (Cardizem) 60 mg BID PO 02/16/21 21:00 04/11/21 20:09 Lactobacillus Rhamnosus (Culturelle) 1 cap DAILY PO 02/17/21 09:00 03/04/21 09:21 DC 03/03/21 08:32 Amylase/Lipase/ Protease (Zenpep 10,000) 1 cap TIDBFRMEAL PO 02/17/21 07:30 04/11/21 17:00 Non-Formulary Medication (Magnesium Hydroxide (Milk Of Magnesia)) 2,400 mg PRN DAILY PRN PO CONSTIPATION 02/16/21 17:00 02/16/21 17:37 DC Magnesium Oxide (Magnesium Oxide) 400 mg DAILY PO 02/17/21 09:00 03/04/21 09:21 DC 03/03/21 08:31 Non-Formulary Medication (Methyl Salicylate/ Menthol (Analgesic [place])) 1 debra PRN Q6HRS PRN TP MUSCLE PAIN 02/16/21 17:00 02/16/21 17:37 DC Non-Formulary Medication (Umeclidinium [place] (Incruse Ellipta)) 62.5 mcg DAILY IH 02/17/21 09:00 02/16/21 17:49 DC Non-Formulary Medication (Zinc Gluconate ) 50 mg DAILY PO 02/17/21 09:00 02/16/21 17:46 DC Albuterol/ Ipratropium (Duoneb) 3 ml RTQID NEB 02/16/21 20:00 02/17/21 19:52 DC Albuterol Sulfate (Ventolin) 2.5 mg PRN Q4HRS PRN NEB SHORTNESS OF BREATH 02/16/21 18:00 Influenza Virus Vaccine Quadrival (Flulaval Quad [id number] Syringe) 0.5 ml ONCE ONCE VAX IM 02/17/21 09:00 02/17/21 09:01 DC 02/17/21 09:21 Lidocaine (Lidoderm) 1 patch DAILY PRN TP pain 02/17/21 09:30 03/29/21 12:01 DC 03/28/21 08:37 Albuterol/ Ipratropium (Combivent Respimat 20-100 Mcg) 1 puff RTQID INH 02/17/21 20:00 04/11/21 20:12 Sertraline HCl (Zoloft) 25 mg DAILY PO 02/22/21 09:00 02/24/21 10:00 DC 02/24/21 09:59 Sertraline HCl (Zoloft) 50 mg DAILY PO 02/25/21 09:00 03/01/21 18:30 DC 03/01/21 10:07 Olanzapine (ZyPREXA ZYDIS) 5 mg 1X ONCE PO 02/26/21 12:03 02/26/21 12:09 DC 02/26/21 12:25 Clonazepam (KlonoPIN) 0.5 mg DAILY PO 02/28/21 09:00 03/02/21 07:00 DC 03/01/21 10:07 Bupropion HCl (Wellbutrin Xl) 150 mg DAILY PO 03/02/21 09:00 03/08/21 15:46 DC 03/08/21 08:41 Levetiracetam (Keppra) 250 mg DAILY PO 03/03/21 09:00 04/10/21 00:12 DC 04/09/21 08:53 Aripiprazole (Abilify) 5 mg DAILY PO 03/05/21 09:00 04/11/21 08:57 Ondansetron HCl (Zofran Odt) 4 mg PRN Q4HRS PRN PO NAUSEA/VOMITING 03/06/21 19:30 04/02/21 09:23 Potassium Chloride (Klor-Con) 30 meq BID PO 03/07/21 09:00 04/11/21 20:11 Divalproex Sodium (Depakote Er) 1,000 mg 1700 PO 03/08/21 17:00 03/12/21 00:01 DC 03/11/21 17:27 Duloxetine HCl (Cymbalta) 30 mg 0900,1700 PO 03/08/21 17:00 04/11/21 17:03 Sulfasalazine (Azulfidine) 500 mg 0900,1300,1700 PO 03/08/21 09:00 04/11/21 17:03 Bupropion HCl (Wellbutrin Xl) 300 mg DAILY PO 03/09/21 09:00 04/11/21 08:59 Potassium Chloride (Klor-Con) 40 meq 1630,1730 PO 03/08/21 16:30 03/08/21 18:04 DC 03/08/21 16:57 Potassium Chloride (Klor-Con) 40 meq 1700,1800 PO 03/08/21 17:15 03/08/21 18:04 DC 03/08/21 17:56 Divalproex Sodium (Depakote Sprinkles) 500 mg BID PO 03/12/21 09:00 04/11/21 20:11 Clotrimazole (Mycelex-7) 1 debra QHS VG 03/18/21 21:00 03/25/21 20:59 DC 03/24/21 20:20 Dicyclomine HCl (Bentyl) 20 mg TID PO 03/18/21 21:00 04/11/21 20:11 Diphenoxylate HCl/ Atropine (Lomotil) 2 tab BID PO 03/18/21 21:00 04/11/21 20:10 Lidocaine (Lidoderm) 1 patch PRN DAILY PRN TP pain 03/29/21 12:15 I have reviewed the current psychotropics carefully including drug interactions. Risk benefit ratio favors no change other than as noted in my dictated progress note. Diagnosis: Problems: (1) Mild cognitive impairment (2) Impulse control disorder, unspecified (3) Anxiety disorder, unspecified (4) Bipolar disorder, curr episode mixed, severe, with psychotic features (5) Bipolar 1 disorder, depressed NITHIN STEVENS MD Apr 11, 2021 20:34
--- NOTE | 2021-04-11 21:45 | NUR ---
Nursing Note Pt in dayroom, visiting with peers, pleasant and cooperative. Takes meds whole in 1 swallow. No agitation. Calm at this time resting.
[2021-04-12 05:44] VITALS: BP 95/52
--- NOTE | 2021-04-12 06:14 | PDOC ---
Exam Note: Napoleon Note: This note is a late entry for 04/10/2021 covers elements not covered in my initial note. Subjective: The patient was seen individually in the evening of 04/10/2021 with Zahira BARR, discussed and reviewed the chart. The patient slept 7-1/4 hours previous night. She has been withdrawn, somewhat delusional at times stating she saw her mother stating that one of the staff members had given her sex changed to her son and we will check CBC, CMP morning of the 04/11. Review of Systems: Impaired ambulation in Broda chair. Shortness of breath on O2 supplements. No CV, , eye, ENT system symptoms on review. Mental Status Exam: The patient is oriented to herself and situation. Speech coherent. Abstraction fair. Computation impaired. Language function intact. Mood and affect anxious, withdrawn. Laboratory Data: Reviewed. Impression: Bipolar disorder, depressed. Anxiety disorder unspecified. Impulse control disorder unspecified. Plan: No change from initial note. Assessment: Vital Signs/I&O: Vital Signs Date Time Temp Pulse Resp B/P (MAP) Pulse Ox O2 Delivery O2 Flow Rate FiO2 04/12/21 05:44 98.0 106 20 95/52 (66) 92 2.0 04/09/21 05:40 Nasal Cannula I & O 04/11/21 04/11/21 04/12/21 15:00 23:00 07:00 Intake Total 720 ml 360 ml Balance 720 ml 360 ml Labs: Laboratory Tests Test 04/11/21 06:20 White Blood Count 4.5 x10^3/uL (4.0-11.0) Red Blood Count 3.40 x10^6/uL (3.50-5.40) L Hemoglobin 13.1 g/dL (12.0-15.5) Hematocrit 38.7 % (36.0-47.0) Mean Corpuscular Volume 114 fL (79-100) H Mean Corpuscular Hemoglobin 39 pg (25-35) H Mean Corpuscular Hemoglobin Concent 34 g/dL (31-37) Red Cell Distribution Width 15.5 % (11.5-14.5) H Platelet Count 228 x10^3/uL (140-400) Neutrophils (%) (Auto) 72 % (31-73) Lymphocytes (%) (Auto) 17 % (24-48) L Monocytes (%) (Auto) 9 % (0-9) Eosinophils (%) (Auto) 2 % (0-3) Basophils (%) (Auto) 1 % (0-3) Neutrophils # (Auto) 3.2 x10^3uL (1.8-7.7) Lymphocytes # (Auto) 0.7 x10^3/uL (1.0-4.8) L Monocytes # (Auto) 0.4 x10^3/uL (0.0-1.1) Eosinophils # (Auto) 0.1 x10^3/uL (0.0-0.7) Basophils # (Auto) 0.0 x10^3/uL (0.0-0.2) Sodium Level 140 mmol/L (136-145) Potassium Level 4.1 mmol/L (3.5-5.1) Chloride Level 101 mmol/L (98-107) Carbon Dioxide Level 32 mmol/L (21-32) Anion Gap 7 (6-14) Blood Urea Nitrogen 12 mg/dL (7-20) Creatinine 0.6 mg/dL (0.6-1.0) Estimated GFR (Cockcroft-Gault) 99.1 BUN/Creatinine Ratio 20 (6-20) Glucose Level 90 mg/dL (70-99) Calcium Level 8.6 mg/dL (8.5-10.1) Total Bilirubin 0.5 mg/dL (0.2-1.0) Aspartate Amino Transferase (AST) 214 U/L (15-37) H Alanine Aminotransferase (ALT) 101 U/L (14-59) H Alkaline Phosphatase 116 U/L (46-116) Total Protein 6.3 g/dL (6.4-8.2) L Albumin 2.8 g/dL (3.4-5.0) L Albumin/Globulin Ratio 0.8 (1.0-1.7) L Current Medications: Meds: Laboratory Tests Test 04/11/21 06:20 White Blood Count 4.5 x10^3/uL Red Blood Count 3.40 x10^6/uL Hemoglobin 13.1 g/dL Hematocrit 38.7 % Mean Corpuscular Volume 114 fL Mean Corpuscular Hemoglobin 39 pg Mean Corpuscular Hemoglobin Concent 34 g/dL Red Cell Distribution Width 15.5 % Platelet Count 228 x10^3/uL Neutrophils (%) (Auto) 72 % Lymphocytes (%) (Auto) 17 % Monocytes (%) (Auto) 9 % Eosinophils (%) (Auto) 2 % Basophils (%) (Auto) 1 % Neutrophils # (Auto) 3.2 x10^3uL Lymphocytes # (Auto) 0.7 x10^3/uL Monocytes # (Auto) 0.4 x10^3/uL Eosinophils # (Auto) 0.1 x10^3/uL Basophils # (Auto) 0.0 x10^3/uL Sodium Level 140 mmol/L Potassium Level 4.1 mmol/L Chloride Level 101 mmol/L Carbon Dioxide Level 32 mmol/L Anion Gap 7 Blood Urea Nitrogen 12 mg/dL Creatinine 0.6 mg/dL Estimated GFR (Cockcroft-Gault) 99.1 BUN/Creatinine Ratio 20 Glucose Level 90 mg/dL Calcium Level 8.6 mg/dL Total Bilirubin 0.5 mg/dL Aspartate Amino Transf (AST/SGOT) 214 U/L Alanine Aminotransferase (ALT/SGPT) 101 U/L Alkaline Phosphatase 116 U/L Total Protein 6.3 g/dL Albumin 2.8 g/dL Albumin/Globulin Ratio 0.8 Current Medications Medications (Trade) Dose Ordered Sig/Mya Route PRN Reason Start Time Stop Time Status Last Admin Dose Admin Acetaminophen (Tylenol) 650 mg PRN Q6HRS PRN PO MILD PAIN / TEMP > 100.3'F 02/16/21 15:45 03/04/21 09:21 DC 02/18/21 06:31 Multi-Ingredient Ointment (Analgesic [place]) 1 debra PRN QID PRN TP MUSCLE PAIN 02/16/21 15:45 03/04/21 09:21 DC Al Hydroxide/Mg Hydroxide (Mylanta Plus Xs) 15 ml PRN AFTMEALHC PRN PO DYSPEPSIA 02/16/21 15:45 03/04/21 22:05 Magnesium Hydroxide (Milk Of Magnesia) 2,400 mg PRN QHS PRN PO 1ST CHOICE CONSTIPATION 02/16/21 15:45 03/04/21 09:21 DC Acetaminophen (Tylenol) 1,000 mg Q6HRS PRN PO pain or fever 02/16/21 17:00 02/16/21 17:35 DC Acetaminophen (Tylenol) 500 mg Q4HRS PRN PO MILD PAIN 1-3 02/16/21 17:00 02/16/21 17:36 DC Bisacodyl (Dulcolax Tab) 5 mg PRN DAILY PRN PO 2ND CHOICE CONSTIPATION 02/16/21 17:00 03/04/21 09:21 DC Vitamin D (Vitamin D3) 50,000 unit WEEKLY PO 02/22/21 09:00 03/04/21 09:21 DC 02/22/21 07:16 Clonazepam (KlonoPIN) 0.5 mg BID PO 02/16/21 21:00 02/27/21 19:54 DC 02/27/21 10:11 Dicyclomine HCl (Bentyl) 20 mg TID PO 02/16/21 21:00 03/04/21 09:21 DC 03/03/21 21:07 Diphenoxylate HCl/ Atropine (Lomotil) 2 tab BID PO 02/16/21 21:00 03/04/21 09:21 DC 03/03/21 21:08 Divalproex Sodium (Depakote Er) 1,000 mg HS PO 02/16/21 21:00 03/07/21 20:15 DC 03/04/21 21:43 Duloxetine HCl (Cymbalta) 30 mg BID PO 02/16/21 21:00 03/07/21 20:15 DC 03/06/21 08:14 Fluticasone Propionate (Flonase) 2 spray DAILY NS 02/17/21 09:00 04/11/21 08:51 Furosemide (Lasix) 20 mg DAILY PO 02/17/21 09:00 03/04/21 09:21 DC 03/03/21 08:32 Gabapentin (Neurontin) 300 mg QID PO 02/16/21 17:00 04/11/21 20:11 Hydroxyurea (Hydrea) 1,000 mg DAILY PO 02/17/21 09:00 04/11/21 08:53 Levetiracetam (Keppra) 250 mg BID PO 02/16/21 21:00 03/02/21 14:48 DC 03/02/21 09:54 Lidocaine (Lidoderm) 1 patch DAILY TP 02/17/21 09:00 02/17/21 09:24 DC Al Hydroxide/Mg Hydroxide (Mylanta Plus Xs) 15 ml PRN AFTMEALHC PRN PO DYSPEPSIA 02/16/21 17:00 02/16/21 17:36 DC Mirabegron (Myrbetriq) 50 mg DAILY PO 02/17/21 09:00 03/04/21 09:21 DC 03/03/21 08:30 Nystatin (Nystop) 1 debra BID TP 02/16/21 21:00 04/11/21 20:12 Pantoprazole Sodium (Protonix) 40 mg DAILYAC PO 02/17/21 07:30 04/11/21 08:52 Potassium Chloride (Klor-Con) 40 meq DAILY PO 02/17/21 09:00 03/04/21 09:21 DC 03/03/21 08:32 Sulfasalazine (Azulfidine) 500 mg TID PO 02/16/21 21:00 03/07/21 20:15 DC 03/06/21 13:05 Trazodone HCl (Desyrel) 50 mg QHS PO 02/16/21 21:00 04/11/21 20:11 Non-Formulary Medication (Albuterol Sulfate (Albuterol Sulfate Conc Neb Soln)) 1 vial PRN Q4HRS PRN NEB SHORTNESS OF BREATH 02/16/21 17:00 02/16/21 17:49 DC Ascorbic Acid (Vitamin C) 1,000 mg DAILY PO 02/17/21 09:00 03/04/21 09:21 DC 03/03/21 08:34 Diltiazem HCl (Cardizem) 60 mg BID PO 02/16/21 21:00 04/11/21 20:09 Lactobacillus Rhamnosus (Culturelle) 1 cap DAILY PO 02/17/21 09:00 03/04/21 09:21 DC 03/03/21 08:32 Amylase/Lipase/ Protease (Zenpep 10,000) 1 cap TIDBFRMEAL PO 02/17/21 07:30 04/11/21 17:00 Non-Formulary Medication (Magnesium Hydroxide (Milk Of Magnesia)) 2,400 mg PRN DAILY PRN PO CONSTIPATION 02/16/21 17:00 02/16/21 17:37 DC Magnesium Oxide (Magnesium Oxide) 400 mg DAILY PO 02/17/21 09:00 03/04/21 09:21 DC 03/03/21 08:31 Non-Formulary Medication (Methyl Salicylate/ Menthol (Analgesic [place])) 1 debra PRN Q6HRS PRN TP MUSCLE PAIN 02/16/21 17:00 02/16/21 17:37 DC Non-Formulary Medication (Umeclidinium [place] (Incruse Ellipta)) 62.5 mcg DAILY IH 02/17/21 09:00 02/16/21 17:49 DC Non-Formulary Medication (Zinc Gluconate ) 50 mg DAILY PO 02/17/21 09:00 02/16/21 17:46 DC Albuterol/ Ipratropium (Duoneb) 3 ml RTQID NEB 02/16/21 20:00 02/17/21 19:52 DC Albuterol Sulfate (Ventolin) 2.5 mg PRN Q4HRS PRN NEB SHORTNESS OF BREATH 02/16/21 18:00 Influenza Virus Vaccine Quadrival (Flulaval Quad [id number] Syringe) 0.5 ml ONCE ONCE VAX IM 02/17/21 09:00 02/17/21 09:01 DC 02/17/21 09:21 Lidocaine (Lidoderm) 1 patch DAILY PRN TP pain 02/17/21 09:30 03/29/21 12:01 DC 03/28/21 08:37 Albuterol/ Ipratropium (Combivent Respimat 20-100 Mcg) 1 puff RTQID INH 02/17/21 20:00 04/11/21 20:12 Sertraline HCl (Zoloft) 25 mg DAILY PO 02/22/21 09:00 02/24/21 10:00 DC 02/24/21 09:59 Sertraline HCl (Zoloft) 50 mg DAILY PO 02/25/21 09:00 03/01/21 18:30 DC 03/01/21 10:07 Olanzapine (ZyPREXA ZYDIS) 5 mg 1X ONCE PO 02/26/21 12:03 02/26/21 12:09 DC 02/26/21 12:25 Clonazepam (KlonoPIN) 0.5 mg DAILY PO 02/28/21 09:00 03/02/21 07:00 DC 03/01/21 10:07 Bupropion HCl (Wellbutrin Xl) 150 mg DAILY PO 03/02/21 09:00 03/08/21 15:46 DC 03/08/21 08:41 Levetiracetam (Keppra) 250 mg DAILY PO 03/03/21 09:00 04/10/21 00:12 DC 04/09/21 08:53 Aripiprazole (Abilify) 5 mg DAILY PO 03/05/21 09:00 04/11/21 08:57 Ondansetron HCl (Zofran Odt) 4 mg PRN Q4HRS PRN PO NAUSEA/VOMITING 03/06/21 19:30 04/02/21 09:23 Potassium Chloride (Klor-Con) 30 meq BID PO 03/07/21 09:00 04/11/21 20:11 Divalproex Sodium (Depakote Er) 1,000 mg 1700 PO 03/08/21 17:00 03/12/21 00:01 DC 03/11/21 17:27 Duloxetine HCl (Cymbalta) 30 mg 0900,1700 PO 03/08/21 17:00 04/11/21 17:03 Sulfasalazine (Azulfidine) 500 mg 0900,1300,1700 PO 03/08/21 09:00 04/11/21 17:03 Bupropion HCl (Wellbutrin Xl) 300 mg DAILY PO 03/09/21 09:00 04/11/21 08:59 Potassium Chloride (Klor-Con) 40 meq 1630,1730 PO 03/08/21 16:30 03/08/21 18:04 DC 03/08/21 16:57 Potassium Chloride (Klor-Con) 40 meq 1700,1800 PO 03/08/21 17:15 03/08/21 18:04 DC 03/08/21 17:56 Divalproex Sodium (Depakote Sprinkles) 500 mg BID PO 03/12/21 09:00 04/11/21 20:11 Clotrimazole (Mycelex-7) 1 debra QHS VG 03/18/21 21:00 03/25/21 20:59 DC 03/24/21 20:20 Dicyclomine HCl (Bentyl) 20 mg TID PO 03/18/21 21:00 04/11/21 20:11 Diphenoxylate HCl/ Atropine (Lomotil) 2 tab BID PO 03/18/21 21:00 04/11/21 20:10 Lidocaine (Lidoderm) 1 patch PRN DAILY PRN TP pain 03/29/21 12:15 I have reviewed the current psychotropics carefully including drug interactions. Risk benefit ratio favors no change other than as noted in my dictated progress note. Diagnosis: Problems: (1) Impulse control disorder, unspecified (2) Mild cognitive impairment (3) Anxiety disorder, unspecified (4) Bipolar disorder, curr episode mixed, severe, with psychotic features (5) Bipolar 1 disorder, depressed NITHIN STEVENS MD Apr 12, 2021 06:14
--- NOTE | 2021-04-12 06:33 | PDOC ---
Exam Note: Napoleon Note: This note is a late entry for 04/11/2021 covers elements not covered in my initial note. Subjective: The patient was seen individually in the evening of 04/11/2021 with Anel BARR, discussed and reviewed the chart. The patient slept 9 hours previous night. Overall she has done better, less delusional. Review of Systems: Ambulation impaired, in wheelchair. Shortness of breath on O2 supplements. No CV, , eye, ENT system symptoms on review. Mental Status Exam: The patient is oriented to herself and situation. Speech coherent. Abstraction fair. Computation impaired. Language function intact. Mood and affect anxious, withdrawn. Laboratory Data: Reviewed. Impression: Bipolar disorder, depressed. Anxiety disorder unspecified. Impulse control disorder unspecified. Plan: No change from initial note. Assessment: Vital Signs/I&O: Vital Signs Date Time Temp Pulse Resp B/P (MAP) Pulse Ox O2 Delivery O2 Flow Rate FiO2 04/12/21 05:44 98.0 106 20 95/52 (66) 92 2.0 04/09/21 05:40 Nasal Cannula I & O 04/11/21 04/11/21 04/12/21 14:59 22:59 06:59 Intake Total 720 ml 360 ml Balance 720 ml 360 ml Current Medications: Meds: Current Medications Medications (Trade) Dose Ordered Sig/Mya Route PRN Reason Start Time Stop Time Status Last Admin Dose Admin Acetaminophen (Tylenol) 650 mg PRN Q6HRS PRN PO MILD PAIN / TEMP > 100.3'F 02/16/21 15:45 03/04/21 09:21 DC 02/18/21 06:31 Multi-Ingredient Ointment (Analgesic [place]) 1 debra PRN QID PRN TP MUSCLE PAIN 02/16/21 15:45 03/04/21 09:21 DC Al Hydroxide/Mg Hydroxide (Mylanta Plus Xs) 15 ml PRN AFTMEALHC PRN PO DYSPEPSIA 02/16/21 15:45 03/04/21 22:05 Magnesium Hydroxide (Milk Of Magnesia) 2,400 mg PRN QHS PRN PO 1ST CHOICE CONSTIPATION 02/16/21 15:45 03/04/21 09:21 DC Acetaminophen (Tylenol) 1,000 mg Q6HRS PRN PO pain or fever 02/16/21 17:00 02/16/21 17:35 DC Acetaminophen (Tylenol) 500 mg Q4HRS PRN PO MILD PAIN 1-3 02/16/21 17:00 02/16/21 17:36 DC Bisacodyl (Dulcolax Tab) 5 mg PRN DAILY PRN PO 2ND CHOICE CONSTIPATION 02/16/21 17:00 03/04/21 09:21 DC Vitamin D (Vitamin D3) 50,000 unit WEEKLY PO 02/22/21 09:00 03/04/21 09:21 DC 02/22/21 07:16 Clonazepam (KlonoPIN) 0.5 mg BID PO 02/16/21 21:00 02/27/21 19:54 DC 02/27/21 10:11 Dicyclomine HCl (Bentyl) 20 mg TID PO 02/16/21 21:00 03/04/21 09:21 DC 03/03/21 21:07 Diphenoxylate HCl/ Atropine (Lomotil) 2 tab BID PO 02/16/21 21:00 03/04/21 09:21 DC 03/03/21 21:08 Divalproex Sodium (Depakote Er) 1,000 mg HS PO 02/16/21 21:00 03/07/21 20:15 DC 03/04/21 21:43 Duloxetine HCl (Cymbalta) 30 mg BID PO 02/16/21 21:00 03/07/21 20:15 DC 03/06/21 08:14 Fluticasone Propionate (Flonase) 2 spray DAILY NS 02/17/21 09:00 04/11/21 08:51 Furosemide (Lasix) 20 mg DAILY PO 02/17/21 09:00 03/04/21 09:21 DC 03/03/21 08:32 Gabapentin (Neurontin) 300 mg QID PO 02/16/21 17:00 04/11/21 20:11 Hydroxyurea (Hydrea) 1,000 mg DAILY PO 02/17/21 09:00 04/11/21 08:53 Levetiracetam (Keppra) 250 mg BID PO 02/16/21 21:00 03/02/21 14:48 DC 03/02/21 09:54 Lidocaine (Lidoderm) 1 patch DAILY TP 02/17/21 09:00 02/17/21 09:24 DC Al Hydroxide/Mg Hydroxide (Mylanta Plus Xs) 15 ml PRN AFTMEALHC PRN PO DYSPEPSIA 02/16/21 17:00 02/16/21 17:36 DC Mirabegron (Myrbetriq) 50 mg DAILY PO 02/17/21 09:00 03/04/21 09:21 DC 03/03/21 08:30 Nystatin (Nystop) 1 debra BID TP 02/16/21 21:00 04/11/21 20:12 Pantoprazole Sodium (Protonix) 40 mg DAILYAC PO 02/17/21 07:30 04/11/21 08:52 Potassium Chloride (Klor-Con) 40 meq DAILY PO 02/17/21 09:00 03/04/21 09:21 DC 03/03/21 08:32 Sulfasalazine (Azulfidine) 500 mg TID PO 02/16/21 21:00 03/07/21 20:15 DC 03/06/21 13:05 Trazodone HCl (Desyrel) 50 mg QHS PO 02/16/21 21:00 04/11/21 20:11 Non-Formulary Medication (Albuterol Sulfate (Albuterol Sulfate Conc Neb Soln)) 1 vial PRN Q4HRS PRN NEB SHORTNESS OF BREATH 02/16/21 17:00 02/16/21 17:49 DC Ascorbic Acid (Vitamin C) 1,000 mg DAILY PO 02/17/21 09:00 03/04/21 09:21 DC 03/03/21 08:34 Diltiazem HCl (Cardizem) 60 mg BID PO 02/16/21 21:00 04/11/21 20:09 Lactobacillus Rhamnosus (Culturelle) 1 cap DAILY PO 02/17/21 09:00 03/04/21 09:21 DC 03/03/21 08:32 Amylase/Lipase/ Protease (Zenpep 10,000) 1 cap TIDBFRMEAL PO 02/17/21 07:30 04/11/21 17:00 Non-Formulary Medication (Magnesium Hydroxide (Milk Of Magnesia)) 2,400 mg PRN DAILY PRN PO CONSTIPATION 02/16/21 17:00 02/16/21 17:37 DC Magnesium Oxide (Magnesium Oxide) 400 mg DAILY PO 02/17/21 09:00 03/04/21 09:21 DC 03/03/21 08:31 Non-Formulary Medication (Methyl Salicylate/ Menthol (Analgesic [place])) 1 debra PRN Q6HRS PRN TP MUSCLE PAIN 02/16/21 17:00 02/16/21 17:37 DC Non-Formulary Medication (Umeclidinium [place] (Incruse Ellipta)) 62.5 mcg DAILY IH 02/17/21 09:00 02/16/21 17:49 DC Non-Formulary Medication (Zinc Gluconate ) 50 mg DAILY PO 02/17/21 09:00 02/16/21 17:46 DC Albuterol/ Ipratropium (Duoneb) 3 ml RTQID NEB 02/16/21 20:00 02/17/21 19:52 DC Albuterol Sulfate (Ventolin) 2.5 mg PRN Q4HRS PRN NEB SHORTNESS OF BREATH 02/16/21 18:00 Influenza Virus Vaccine Quadrival (Flulaval Quad [id number] Syringe) 0.5 ml ONCE ONCE VAX IM 02/17/21 09:00 02/17/21 09:01 DC 02/17/21 09:21 Lidocaine (Lidoderm) 1 patch DAILY PRN TP pain 02/17/21 09:30 03/29/21 12:01 DC 03/28/21 08:37 Albuterol/ Ipratropium (Combivent Respimat 20-100 Mcg) 1 puff RTQID INH 02/17/21 20:00 04/11/21 20:12 Sertraline HCl (Zoloft) 25 mg DAILY PO 02/22/21 09:00 02/24/21 10:00 DC 02/24/21 09:59 Sertraline HCl (Zoloft) 50 mg DAILY PO 02/25/21 09:00 03/01/21 18:30 DC 03/01/21 10:07 Olanzapine (ZyPREXA ZYDIS) 5 mg 1X ONCE PO 02/26/21 12:03 02/26/21 12:09 DC 02/26/21 12:25 Clonazepam (KlonoPIN) 0.5 mg DAILY PO 02/28/21 09:00 03/02/21 07:00 DC 03/01/21 10:07 Bupropion HCl (Wellbutrin Xl) 150 mg DAILY PO 03/02/21 09:00 03/08/21 15:46 DC 03/08/21 08:41 Levetiracetam (Keppra) 250 mg DAILY PO 03/03/21 09:00 04/10/21 00:12 DC 04/09/21 08:53 Aripiprazole (Abilify) 5 mg DAILY PO 03/05/21 09:00 04/11/21 08:57 Ondansetron HCl (Zofran Odt) 4 mg PRN Q4HRS PRN PO NAUSEA/VOMITING 03/06/21 19:30 04/02/21 09:23 Potassium Chloride (Klor-Con) 30 meq BID PO 03/07/21 09:00 04/11/21 20:11 Divalproex Sodium (Depakote Er) 1,000 mg 1700 PO 03/08/21 17:00 03/12/21 00:01 DC 03/11/21 17:27 Duloxetine HCl (Cymbalta) 30 mg 0900,1700 PO 03/08/21 17:00 04/11/21 17:03 Sulfasalazine (Azulfidine) 500 mg 0900,1300,1700 PO 03/08/21 09:00 04/11/21 17:03 Bupropion HCl (Wellbutrin Xl) 300 mg DAILY PO 03/09/21 09:00 04/11/21 08:59 Potassium Chloride (Klor-Con) 40 meq 1630,1730 PO 03/08/21 16:30 03/08/21 18:04 DC 03/08/21 16:57 Potassium Chloride (Klor-Con) 40 meq 1700,1800 PO 03/08/21 17:15 03/08/21 18:04 DC 03/08/21 17:56 Divalproex Sodium (Depakote Sprinkles) 500 mg BID PO 03/12/21 09:00 04/11/21 20:11 Clotrimazole (Mycelex-7) 1 debra QHS VG 03/18/21 21:00 03/25/21 20:59 DC 03/24/21 20:20 Dicyclomine HCl (Bentyl) 20 mg TID PO 03/18/21 21:00 04/11/21 20:11 Diphenoxylate HCl/ Atropine (Lomotil) 2 tab BID PO 03/18/21 21:00 04/11/21 20:10 Lidocaine (Lidoderm) 1 patch PRN DAILY PRN TP pain 03/29/21 12:15 I have reviewed the current psychotropics carefully including drug interactions. Risk benefit ratio favors no change other than as noted in my dictated progress note. Diagnosis: Problems: (1) Impulse control disorder, unspecified (2) Mild cognitive impairment (3) Anxiety disorder, unspecified (4) Bipolar disorder, curr episode mixed, severe, with psychotic features (5) Bipolar 1 disorder, depressed NITHIN STEVENS MD Apr 12, 2021 06:33
[2021-04-12] MEDS: FLUTICASONE 50MCG/NASAL SPRAY 16GM BOTTLE. NS SCH (08:14)
[2021-04-12] MEDS: IPRATROPIUM/ALBUTEROL 20/100mcg/INH INHALER. INH SCH ×4 (08:14→20:00)
[2021-04-12] MEDS: LIPASE/PROTEAS/AMYLAS 10/32/42 CAPSULE.DR. PO SCH ×3 (08:15→16:31)
[2021-04-12] MEDS: sulfaSALAzine 500 MG TABLET PO SCH ×3 (08:15→16:31)
[2021-04-12] MEDS: dilTIAZem HCL 30 MG TABLET PO SCH ×2 (08:16→20:18)
[2021-04-12] MEDS: GABAPENTIN 300 MG CAPSULE. PO SCH ×4 (08:16→20:17)
[2021-04-12] MEDS: PANTOPRAZOLE 40 MG TABLET. PO SCH (08:16)
[2021-04-12] MEDS: ARIPiprazole 5 MG TABLET PO SCH (08:16)
[2021-04-12] MEDS: DULoxetine HCL 30 MG CAPSULE.DR PO SCH ×2 (08:16→16:31)
[2021-04-12] MEDS: DIPHENOXYLATE/ATROPINE TABLET. PO SCH ×2 (08:17→20:18)
[2021-04-12] MEDS: DICYCLOMINE HCL 20 MG TABLET PO SCH ×3 (08:17→20:18)
[2021-04-12] MEDS: DIVALPROEX 125 MG CAP.SPRINK PO SCH ×2 (08:18→20:17)
[2021-04-12] MEDS: POTASSIUM CHLORIDE 10 MEQ TABLET.ER. PO SCH ×2 (08:18→20:18)
[2021-04-12] MEDS: buPROPion XL 300 MG TAB.ER.24H. PO SCH (08:19)
[2021-04-12] MEDS: NYSTATIN TOPICAL POWDER 15GM BOTTLE. TP SCH ×2 (08:19→20:19)
[2021-04-12] MEDS: HYDROXYUREA 500 MG CAPSULE PO SCH (08:20)
[2021-04-12 15:36] VITALS: BP 110/70
--- NOTE | 2021-04-12 16:15 | NUR ---
Lab reports patient is positive for SARS-CoV-2. Notified community center director, mix house operator, and DON. Patient placed in her room while awaiting orders.
--- NOTE | 2021-04-12 17:46 | NUR ---
Patient has been calm, disorganized cooperative, and mildly confused throughout this shift. She has occasionally been irritable with peers otherwise pleasant throughout this shift. Will continue to monitor and report to oncoming shift.
[2021-04-12] MEDS: traZODone 50 MG TABLET. PO SCH (20:18)
--- NOTE | 2021-04-12 20:47 | PDOC ---
Exam Note: Napoleon Note: Please also refer to the separate dictated note~for this date of service dictated separately.~Patient seen individually. Discussed the patient with Nursing staff reviewed the chart.~Reviewed interim history and current functioning. Reviewed vital signs,~Labs/ Radiology~and current medications noted below. Continue current treatment with the changes noted in the dictated addendum note Assessment: Vital Signs/I&O: Vital Signs Date Time Temp Pulse Resp B/P (MAP) Pulse Ox O2 Delivery O2 Flow Rate FiO2 04/12/21 20:18 93 110/70 04/12/21 15:36 98.3 20 93 Room Air 04/12/21 05:44 2.0 I & O 04/11/21 04/11/21 04/12/21 14:59 22:59 06:59 Intake Total 720 ml 360 ml Balance 720 ml 360 ml Labs: Laboratory Tests Test 04/12/21 06:00 SARS-CoV-2 (PCR) Positive (NOT DETECTD) H Current Medications: Meds: Laboratory Tests Test 04/12/21 06:00 Coronavirus (COVID-19)(PCR) Positive Current Medications Medications (Trade) Dose Ordered Sig/Mya Route PRN Reason Start Time Stop Time Status Last Admin Dose Admin Acetaminophen (Tylenol) 650 mg PRN Q6HRS PRN PO MILD PAIN / TEMP > 100.3'F 02/16/21 15:45 03/04/21 09:21 DC 02/18/21 06:31 Multi-Ingredient Ointment (Analgesic [place]) 1 debra PRN QID PRN TP MUSCLE PAIN 02/16/21 15:45 03/04/21 09:21 DC Al Hydroxide/Mg Hydroxide (Mylanta Plus Xs) 15 ml PRN AFTMEALHC PRN PO DYSPEPSIA 02/16/21 15:45 03/04/21 22:05 Magnesium Hydroxide (Milk Of Magnesia) 2,400 mg PRN QHS PRN PO 1ST CHOICE CONSTIPATION 02/16/21 15:45 03/04/21 09:21 DC Acetaminophen (Tylenol) 1,000 mg Q6HRS PRN PO pain or fever 02/16/21 17:00 02/16/21 17:35 DC Acetaminophen (Tylenol) 500 mg Q4HRS PRN PO MILD PAIN 1-3 02/16/21 17:00 02/16/21 17:36 DC Bisacodyl (Dulcolax Tab) 5 mg PRN DAILY PRN PO 2ND CHOICE CONSTIPATION 02/16/21 17:00 03/04/21 09:21 DC Vitamin D (Vitamin D3) 50,000 unit WEEKLY PO 02/22/21 09:00 03/04/21 09:21 DC 02/22/21 07:16 Clonazepam (KlonoPIN) 0.5 mg BID PO 02/16/21 21:00 02/27/21 19:54 DC 02/27/21 10:11 Dicyclomine HCl (Bentyl) 20 mg TID PO 02/16/21 21:00 03/04/21 09:21 DC 03/03/21 21:07 Diphenoxylate HCl/ Atropine (Lomotil) 2 tab BID PO 02/16/21 21:00 03/04/21 09:21 DC 03/03/21 21:08 Divalproex Sodium (Depakote Er) 1,000 mg HS PO 02/16/21 21:00 03/07/21 20:15 DC 03/04/21 21:43 Duloxetine HCl (Cymbalta) 30 mg BID PO 02/16/21 21:00 03/07/21 20:15 DC 03/06/21 08:14 Fluticasone Propionate (Flonase) 2 spray DAILY NS 02/17/21 09:00 04/12/21 08:14 Furosemide (Lasix) 20 mg DAILY PO 02/17/21 09:00 03/04/21 09:21 DC 03/03/21 08:32 Gabapentin (Neurontin) 300 mg QID PO 02/16/21 17:00 04/12/21 20:17 Hydroxyurea (Hydrea) 1,000 mg DAILY PO 02/17/21 09:00 04/12/21 08:20 Levetiracetam (Keppra) 250 mg BID PO 02/16/21 21:00 03/02/21 14:48 DC 03/02/21 09:54 Lidocaine (Lidoderm) 1 patch DAILY TP 02/17/21 09:00 02/17/21 09:24 DC Al Hydroxide/Mg Hydroxide (Mylanta Plus Xs) 15 ml PRN AFTMEALHC PRN PO DYSPEPSIA 02/16/21 17:00 02/16/21 17:36 DC Mirabegron (Myrbetriq) 50 mg DAILY PO 02/17/21 09:00 03/04/21 09:21 DC 03/03/21 08:30 Nystatin (Nystop) 1 debra BID TP 02/16/21 21:00 04/12/21 20:19 Pantoprazole Sodium (Protonix) 40 mg DAILYAC PO 02/17/21 07:30 04/12/21 08:16 Potassium Chloride (Klor-Con) 40 meq DAILY PO 02/17/21 09:00 03/04/21 09:21 DC 03/03/21 08:32 Sulfasalazine (Azulfidine) 500 mg TID PO 02/16/21 21:00 03/07/21 20:15 DC 03/06/21 13:05 Trazodone HCl (Desyrel) 50 mg QHS PO 02/16/21 21:00 04/12/21 20:18 Non-Formulary Medication (Albuterol Sulfate (Albuterol Sulfate Conc Neb Soln)) 1 vial PRN Q4HRS PRN NEB SHORTNESS OF BREATH 02/16/21 17:00 02/16/21 17:49 DC Ascorbic Acid (Vitamin C) 1,000 mg DAILY PO 02/17/21 09:00 03/04/21 09:21 DC 03/03/21 08:34 Diltiazem HCl (Cardizem) 60 mg BID PO 02/16/21 21:00 04/12/21 20:18 Lactobacillus Rhamnosus (Culturelle) 1 cap DAILY PO 02/17/21 09:00 03/04/21 09:21 DC 03/03/21 08:32 Amylase/Lipase/ Protease (Zenpep 10,000) 1 cap TIDBFRMEAL PO 02/17/21 07:30 04/12/21 16:31 Non-Formulary Medication (Magnesium Hydroxide (Milk Of Magnesia)) 2,400 mg PRN DAILY PRN PO CONSTIPATION 02/16/21 17:00 02/16/21 17:37 DC Magnesium Oxide (Magnesium Oxide) 400 mg DAILY PO 02/17/21 09:00 03/04/21 09:21 DC 03/03/21 08:31 Non-Formulary Medication (Methyl Salicylate/ Menthol (Analgesic [place])) 1 edbra PRN Q6HRS PRN TP MUSCLE PAIN 02/16/21 17:00 02/16/21 17:37 DC Non-Formulary Medication (Umeclidinium [place] (Incruse Ellipta)) 62.5 mcg DAILY IH 02/17/21 09:00 02/16/21 17:49 DC Non-Formulary Medication (Zinc Gluconate ) 50 mg DAILY PO 02/17/21 09:00 02/16/21 17:46 DC Albuterol/ Ipratropium (Duoneb) 3 ml RTQID NEB 02/16/21 20:00 02/17/21 19:52 DC Albuterol Sulfate (Ventolin) 2.5 mg PRN Q4HRS PRN NEB SHORTNESS OF BREATH 02/16/21 18:00 Influenza Virus Vaccine Quadrival (Flulaval Quad [id number] Syringe) 0.5 ml ONCE ONCE VAX IM 02/17/21 09:00 02/17/21 09:01 DC 02/17/21 09:21 Lidocaine (Lidoderm) 1 patch DAILY PRN TP pain 02/17/21 09:30 03/29/21 12:01 DC 03/28/21 08:37 Albuterol/ Ipratropium (Combivent Respimat 20-100 Mcg) 1 puff RTQID INH 02/17/21 20:00 04/12/21 16:31 Sertraline HCl (Zoloft) 25 mg DAILY PO 02/22/21 09:00 02/24/21 10:00 DC 02/24/21 09:59 Sertraline HCl (Zoloft) 50 mg DAILY PO 02/25/21 09:00 03/01/21 18:30 DC 03/01/21 10:07 Olanzapine (ZyPREXA ZYDIS) 5 mg 1X ONCE PO 02/26/21 12:03 02/26/21 12:09 DC 02/26/21 12:25 Clonazepam (KlonoPIN) 0.5 mg DAILY PO 02/28/21 09:00 03/02/21 07:00 DC 03/01/21 10:07 Bupropion HCl (Wellbutrin Xl) 150 mg DAILY PO 03/02/21 09:00 03/08/21 15:46 DC 03/08/21 08:41 Levetiracetam (Keppra) 250 mg DAILY PO 03/03/21 09:00 04/10/21 00:12 DC 04/09/21 08:53 Aripiprazole (Abilify) 5 mg DAILY PO 03/05/21 09:00 04/12/21 08:16 Ondansetron HCl (Zofran Odt) 4 mg PRN Q4HRS PRN PO NAUSEA/VOMITING 03/06/21 19:30 04/02/21 09:23 Potassium Chloride (Klor-Con) 30 meq BID PO 03/07/21 09:00 04/12/21 20:18 Divalproex Sodium (Depakote Er) 1,000 mg 1700 PO 03/08/21 17:00 03/12/21 00:01 DC 03/11/21 17:27 Duloxetine HCl (Cymbalta) 30 mg 0900,1700 PO 03/08/21 17:00 04/12/21 16:31 Sulfasalazine (Azulfidine) 500 mg 0900,1300,1700 PO 03/08/21 09:00 04/12/21 16:31 Bupropion HCl (Wellbutrin Xl) 300 mg DAILY PO 03/09/21 09:00 04/12/21 08:19 Potassium Chloride (Klor-Con) 40 meq 1630,1730 PO 03/08/21 16:30 03/08/21 18:04 DC 03/08/21 16:57 Potassium Chloride (Klor-Con) 40 meq 1700,1800 PO 03/08/21 17:15 03/08/21 18:04 DC 03/08/21 17:56 Divalproex Sodium (Depakote Sprinkles) 500 mg BID PO 03/12/21 09:00 04/12/21 20:17 Clotrimazole (Mycelex-7) 1 debra QHS VG 03/18/21 21:00 03/25/21 20:59 DC 03/24/21 20:20 Dicyclomine HCl (Bentyl) 20 mg TID PO 03/18/21 21:00 04/12/21 20:18 Diphenoxylate HCl/ Atropine (Lomotil) 2 tab BID PO 03/18/21 21:00 04/12/21 20:18 Lidocaine (Lidoderm) 1 patch PRN DAILY PRN TP pain 03/29/21 12:15 I have reviewed the current psychotropics carefully including drug interactions. Risk benefit ratio favors no change other than as noted in my dictated progress note. Diagnosis: Problems: (1) Impulse control disorder, unspecified (2) Mild cognitive impairment (3) Anxiety disorder, unspecified (4) Bipolar disorder, curr episode mixed, severe, with psychotic features (5) Bipolar 1 disorder, depressed NITHIN STEVENS MD Apr 12, 2021 20:47
--- NOTE | 2021-04-12 22:39 | NUR ---
Nursing Note Pt in room in isolation for Covid 19 precautions. She is listening to music on the [employer] content to listen to 70s music. Med compliant and cooperative with assessment and meds.
[2021-04-13 06:08] VITALS: BP 116/74
--- NOTE | 2021-04-13 07:01 | PDOC ---
Exam Note: Napoleon Note: This note is a late entry for 04/12/2021 covers elements not covered in my initial note. Subjective: The patient was seen individually in the evening of 04/12/2021 with Anel BARR, discussed and reviewed the chart. The patient slept 7-1/4 hours previous night. She has been delusional, wandering, exit seeking. She put herself on the floor this morning. Covid screen on the patient is positive and a repeat screen in awaited. She has been isolated in the meantime. Review of Systems: Impaired ambulation, stays in Broda chair. Shortness of breath on O2 supplements. No CV, , eye, ENT system symptoms on review per nursing report. Mental Status Exam: The patient is oriented to herself and situation. Speech coherent. Abstraction fair. Computation impaired. Language function intact. She is somewhat distractible. No suicidal or homicidal ideation. Laboratory Data: Reviewed. Impression: Bipolar disorder, depressed. Anxiety disorder unspecified. Impulse control disorder unspecified. Plan: No change from initial note. Defer management of Covid positive status to Dr. Clark. Continue rest of the psychotropics unchanged. Assessment: Vital Signs/I&O: Vital Signs Date Time Temp Pulse Resp B/P (MAP) Pulse Ox O2 Delivery O2 Flow Rate FiO2 04/13/21 06:08 98.0 92 20 116/74 (88) 90 04/12/21 15:36 Room Air 04/12/21 05:44 2.0 I & O 04/12/21 04/12/21 04/13/21 15:00 23:00 07:00 Intake Total 840 ml 360 ml Balance 840 ml 360 ml Labs: Laboratory Tests Test 04/12/21 16:45 SARS-CoV-2 (PCR) Not detected (NOT DETECTD) Current Medications: Meds: Laboratory Tests Test 04/12/21 16:45 Coronavirus (COVID-19)(PCR) Not detected Current Medications Medications (Trade) Dose Ordered Sig/Mya Route PRN Reason Start Time Stop Time Status Last Admin Dose Admin Acetaminophen (Tylenol) 650 mg PRN Q6HRS PRN PO MILD PAIN / TEMP > 100.3'F 02/16/21 15:45 03/04/21 09:21 DC 02/18/21 06:31 Multi-Ingredient Ointment (Analgesic [place]) 1 debra PRN QID PRN TP MUSCLE PAIN 02/16/21 15:45 03/04/21 09:21 DC Al Hydroxide/Mg Hydroxide (Mylanta Plus Xs) 15 ml PRN AFTMEALHC PRN PO DYSPEPSIA 02/16/21 15:45 03/04/21 22:05 Magnesium Hydroxide (Milk Of Magnesia) 2,400 mg PRN QHS PRN PO 1ST CHOICE CONSTIPATION 02/16/21 15:45 03/04/21 09:21 DC Acetaminophen (Tylenol) 1,000 mg Q6HRS PRN PO pain or fever 02/16/21 17:00 02/16/21 17:35 DC Acetaminophen (Tylenol) 500 mg Q4HRS PRN PO MILD PAIN 1-3 02/16/21 17:00 02/16/21 17:36 DC Bisacodyl (Dulcolax Tab) 5 mg PRN DAILY PRN PO 2ND CHOICE CONSTIPATION 02/16/21 17:00 03/04/21 09:21 DC Vitamin D (Vitamin D3) 50,000 unit WEEKLY PO 02/22/21 09:00 03/04/21 09:21 DC 02/22/21 07:16 Clonazepam (KlonoPIN) 0.5 mg BID PO 02/16/21 21:00 02/27/21 19:54 DC 02/27/21 10:11 Dicyclomine HCl (Bentyl) 20 mg TID PO 02/16/21 21:00 03/04/21 09:21 DC 03/03/21 21:07 Diphenoxylate HCl/ Atropine (Lomotil) 2 tab BID PO 02/16/21 21:00 03/04/21 09:21 DC 03/03/21 21:08 Divalproex Sodium (Depakote Er) 1,000 mg HS PO 02/16/21 21:00 03/07/21 20:15 DC 03/04/21 21:43 Duloxetine HCl (Cymbalta) 30 mg BID PO 02/16/21 21:00 03/07/21 20:15 DC 03/06/21 08:14 Fluticasone Propionate (Flonase) 2 spray DAILY NS 02/17/21 09:00 04/12/21 08:14 Furosemide (Lasix) 20 mg DAILY PO 02/17/21 09:00 03/04/21 09:21 DC 03/03/21 08:32 Gabapentin (Neurontin) 300 mg QID PO 02/16/21 17:00 04/12/21 20:17 Hydroxyurea (Hydrea) 1,000 mg DAILY PO 02/17/21 09:00 04/12/21 08:20 Levetiracetam (Keppra) 250 mg BID PO 02/16/21 21:00 03/02/21 14:48 DC 03/02/21 09:54 Lidocaine (Lidoderm) 1 patch DAILY TP 02/17/21 09:00 02/17/21 09:24 DC Al Hydroxide/Mg Hydroxide (Mylanta Plus Xs) 15 ml PRN AFTMEALHC PRN PO DYSPEPSIA 02/16/21 17:00 02/16/21 17:36 DC Mirabegron (Myrbetriq) 50 mg DAILY PO 02/17/21 09:00 03/04/21 09:21 DC 03/03/21 08:30 Nystatin (Nystop) 1 debra BID TP 02/16/21 21:00 04/12/21 20:19 Pantoprazole Sodium (Protonix) 40 mg DAILYAC PO 02/17/21 07:30 04/12/21 08:16 Potassium Chloride (Klor-Con) 40 meq DAILY PO 02/17/21 09:00 03/04/21 09:21 DC 03/03/21 08:32 Sulfasalazine (Azulfidine) 500 mg TID PO 02/16/21 21:00 03/07/21 20:15 DC 03/06/21 13:05 Trazodone HCl (Desyrel) 50 mg QHS PO 02/16/21 21:00 04/12/21 20:18 Non-Formulary Medication (Albuterol Sulfate (Albuterol Sulfate Conc Neb Soln)) 1 vial PRN Q4HRS PRN NEB SHORTNESS OF BREATH 02/16/21 17:00 02/16/21 17:49 DC Ascorbic Acid (Vitamin C) 1,000 mg DAILY PO 02/17/21 09:00 03/04/21 09:21 DC 03/03/21 08:34 Diltiazem HCl (Cardizem) 60 mg BID PO 02/16/21 21:00 04/12/21 20:18 Lactobacillus Rhamnosus (Culturelle) 1 cap DAILY PO 02/17/21 09:00 03/04/21 09:21 DC 03/03/21 08:32 Amylase/Lipase/ Protease (Zenpep 10,000) 1 cap TIDBFRMEAL PO 02/17/21 07:30 04/12/21 16:31 Non-Formulary Medication (Magnesium Hydroxide (Milk Of Magnesia)) 2,400 mg PRN DAILY PRN PO CONSTIPATION 02/16/21 17:00 02/16/21 17:37 DC Magnesium Oxide (Magnesium Oxide) 400 mg DAILY PO 02/17/21 09:00 03/04/21 09:21 DC 03/03/21 08:31 Non-Formulary Medication (Methyl Salicylate/ Menthol (Analgesic [place])) 1 debra PRN Q6HRS PRN TP MUSCLE PAIN 02/16/21 17:00 02/16/21 17:37 DC Non-Formulary Medication (Umeclidinium [place] (Incruse Ellipta)) 62.5 mcg DAILY IH 02/17/21 09:00 02/16/21 17:49 DC Non-Formulary Medication (Zinc Gluconate ) 50 mg DAILY PO 02/17/21 09:00 02/16/21 17:46 DC Albuterol/ Ipratropium (Duoneb) 3 ml RTQID NEB 02/16/21 20:00 02/17/21 19:52 DC Albuterol Sulfate (Ventolin) 2.5 mg PRN Q4HRS PRN NEB SHORTNESS OF BREATH 02/16/21 18:00 Influenza Virus Vaccine Quadrival (Flulaval Quad [id number] Syringe) 0.5 ml ONCE ONCE VAX IM 02/17/21 09:00 02/17/21 09:01 DC 02/17/21 09:21 Lidocaine (Lidoderm) 1 patch DAILY PRN TP pain 02/17/21 09:30 03/29/21 12:01 DC 03/28/21 08:37 Albuterol/ Ipratropium (Combivent Respimat 20-100 Mcg) 1 puff RTQID INH 02/17/21 20:00 04/12/21 16:31 Sertraline HCl (Zoloft) 25 mg DAILY PO 02/22/21 09:00 02/24/21 10:00 DC 02/24/21 09:59 Sertraline HCl (Zoloft) 50 mg DAILY PO 02/25/21 09:00 03/01/21 18:30 DC 03/01/21 10:07 Olanzapine (ZyPREXA ZYDIS) 5 mg 1X ONCE PO 02/26/21 12:03 02/26/21 12:09 DC 02/26/21 12:25 Clonazepam (KlonoPIN) 0.5 mg DAILY PO 02/28/21 09:00 03/02/21 07:00 DC 03/01/21 10:07 Bupropion HCl (Wellbutrin Xl) 150 mg DAILY PO 03/02/21 09:00 03/08/21 15:46 DC 03/08/21 08:41 Levetiracetam (Keppra) 250 mg DAILY PO 03/03/21 09:00 04/10/21 00:12 DC 04/09/21 08:53 Aripiprazole (Abilify) 5 mg DAILY PO 03/05/21 09:00 04/12/21 08:16 Ondansetron HCl (Zofran Odt) 4 mg PRN Q4HRS PRN PO NAUSEA/VOMITING 03/06/21 19:30 04/02/21 09:23 Potassium Chloride (Klor-Con) 30 meq BID PO 03/07/21 09:00 04/12/21 20:18 Divalproex Sodium (Depakote Er) 1,000 mg 1700 PO 03/08/21 17:00 03/12/21 00:01 DC 03/11/21 17:27 Duloxetine HCl (Cymbalta) 30 mg 0900,1700 PO 03/08/21 17:00 04/12/21 16:31 Sulfasalazine (Azulfidine) 500 mg 0900,1300,1700 PO 03/08/21 09:00 04/12/21 16:31 Bupropion HCl (Wellbutrin Xl) 300 mg DAILY PO 03/09/21 09:00 04/12/21 08:19 Potassium Chloride (Klor-Con) 40 meq 1630,1730 PO 03/08/21 16:30 03/08/21 18:04 DC 03/08/21 16:57 Potassium Chloride (Klor-Con) 40 meq 1700,1800 PO 03/08/21 17:15 03/08/21 18:04 DC 03/08/21 17:56 Divalproex Sodium (Depakote Sprinkles) 500 mg BID PO 03/12/21 09:00 04/12/21 20:17 Clotrimazole (Mycelex-7) 1 debra QHS VG 03/18/21 21:00 03/25/21 20:59 DC 03/24/21 20:20 Dicyclomine HCl (Bentyl) 20 mg TID PO 03/18/21 21:00 04/12/21 20:18 Diphenoxylate HCl/ Atropine (Lomotil) 2 tab BID PO 03/18/21 21:00 04/12/21 20:18 Lidocaine (Lidoderm) 1 patch PRN DAILY PRN TP pain 03/29/21 12:15 I have reviewed the current psychotropics carefully including drug interactions. Risk benefit ratio favors no change other than as noted in my dictated progress note. Diagnosis: Problems: (1) Impulse control disorder, unspecified (2) Mild cognitive impairment (3) Anxiety disorder, unspecified (4) Bipolar disorder, curr episode mixed, severe, with psychotic features (5) Bipolar 1 disorder, depressed NITHIN STEVENS MD Apr 13, 2021 07:01
[2021-04-13] MEDS: LIPASE/PROTEAS/AMYLAS 10/32/42 CAPSULE.DR. PO SCH ×3 (07:30→17:10)
[2021-04-13] MEDS: IPRATROPIUM/ALBUTEROL 20/100mcg/INH INHALER. INH SCH ×6 (08:00→19:54)
[2021-04-13] MEDS: DICYCLOMINE HCL 20 MG TABLET PO SCH ×3 (09:00→19:48)
[2021-04-13] MEDS: sulfaSALAzine 500 MG TABLET PO SCH ×3 (09:00→17:10)
[2021-04-13] MEDS: HYDROXYUREA 500 MG CAPSULE PO SCH (09:00)
[2021-04-13] MEDS: GABAPENTIN 300 MG CAPSULE. PO SCH ×4 (09:00→19:53)
[2021-04-13] MEDS: FLUTICASONE 50MCG/NASAL SPRAY 16GM BOTTLE. NS SCH (09:00)
[2021-04-13] MEDS: buPROPion XL 300 MG TAB.ER.24H. PO SCH (09:00)
[2021-04-13] MEDS: NYSTATIN TOPICAL POWDER 15GM BOTTLE. TP SCH ×2 (09:00→19:51)
--- NOTE | 2021-04-13 09:51 | NUR ---
WEEKLY ACTIVITY THERAPY NOTE Date of Admission:02/16/21 Date of AT Assessment: 02/17 Precipitating behaviors that initiated intake and admission:putting self on floor, combative towards staff, refusing O2, threw medications, expresses she wants to & removes O2 Goal aimed: increase socialization and engagement Initial Goal: Pt will participate in at least three individual or group Activity Therapy sessions per week Goal changed 04/05:Pt will participate in at least three Activity Therapy sessions per week with moderate engagement Weekly progress towards goal: exceeded, 10/13 Group participation level: 1 min, 3 mod, 2 full Weekly highlights: participated in exercises Saturday, guesses a few smells during follow your nose group Saturday, toss horseshoes during Saturday group Behaviors observed: confused-thinking peers and staff are family members, mocking peer that was shouting in the hallway Plan: change goal to:Pt will participate in at least five Activity Therapy sessions per week Beneficial adaptations: encouragement
[2021-04-13] MEDS: dilTIAZem HCL 30 MG TABLET PO SCH ×2 (11:11→19:48)
[2021-04-13] MEDS: PANTOPRAZOLE 40 MG TABLET. PO SCH (11:11)
[2021-04-13] MEDS: DIVALPROEX 125 MG CAP.SPRINK PO SCH ×2 (11:11→19:51)
[2021-04-13] MEDS: DULoxetine HCL 30 MG CAPSULE.DR PO SCH ×2 (11:11→17:10)
[2021-04-13] MEDS: DIPHENOXYLATE/ATROPINE TABLET. PO SCH ×2 (11:11→19:53)
[2021-04-13] MEDS: ARIPiprazole 5 MG TABLET PO SCH (11:11)
[2021-04-13] MEDS: POTASSIUM CHLORIDE 10 MEQ TABLET.ER. PO SCH ×2 (11:12→19:50)
--- NOTE | 2021-04-13 11:37 | NUR ---
Pt continues on COVID19 isolation precautions. She is appropriate with her interactions with staff, med compliant. She remains confused and disorganized, absent of self harm behaviors so far. Pt has been placed on a mattress on the floor d/t her hx of attempting to throw self out of broda/bed and onto the floor. Pt has maintained O2 NC in nares, O2 at 2 lpm with O2 sats remaining >90%. When asked, she denies pain or SOB. Plan of care continues, will pass to next shift.
[2021-04-13 15:27] VITALS: BP 120/74
[2021-04-13] MEDS: traZODone 50 MG TABLET. PO SCH (19:48)
--- NOTE | 2021-04-13 20:45 | PDOC ---
Exam Note: Napoleon Note: Please also refer to the separate dictated note~for this date of service dictated separately.~Patient seen individually. Discussed the patient with Nursing staff reviewed the chart.~Reviewed interim history and current functioning. Reviewed vital signs,~Labs/ Radiology~and current medications noted below. Continue current treatment with the changes noted in the dictated addendum note Assessment: Vital Signs/I&O: Vital Signs Date Time Temp Pulse Resp B/P (MAP) Pulse Ox O2 Delivery O2 Flow Rate FiO2 04/13/21 19:48 91 120/74 04/13/21 15:27 98.1 20 92 Nasal Cannula 2.0 I & O 04/12/21 04/12/21 04/13/21 14:59 22:59 06:59 Intake Total 840 ml 360 ml Balance 840 ml 360 ml Labs: Laboratory Tests Test 04/13/21 06:00 SARS-CoV-2 (PCR) Not detected (NOT DETECTD) Current Medications: Meds: Laboratory Tests Test 04/13/21 06:00 Coronavirus (COVID-19)(PCR) Not detected Current Medications Medications (Trade) Dose Ordered Sig/Mya Route PRN Reason Start Time Stop Time Status Last Admin Dose Admin Acetaminophen (Tylenol) 650 mg PRN Q6HRS PRN PO MILD PAIN / TEMP > 100.3'F 02/16/21 15:45 03/04/21 09:21 DC 02/18/21 06:31 Multi-Ingredient Ointment (Analgesic [place]) 1 debra PRN QID PRN TP MUSCLE PAIN 02/16/21 15:45 03/04/21 09:21 DC Al Hydroxide/Mg Hydroxide (Mylanta Plus Xs) 15 ml PRN AFTMEALHC PRN PO DYSPEPSIA 02/16/21 15:45 03/04/21 22:05 Magnesium Hydroxide (Milk Of Magnesia) 2,400 mg PRN QHS PRN PO 1ST CHOICE CONSTIPATION 02/16/21 15:45 03/04/21 09:21 DC Acetaminophen (Tylenol) 1,000 mg Q6HRS PRN PO pain or fever 02/16/21 17:00 02/16/21 17:35 DC Acetaminophen (Tylenol) 500 mg Q4HRS PRN PO MILD PAIN 1-3 02/16/21 17:00 02/16/21 17:36 DC Bisacodyl (Dulcolax Tab) 5 mg PRN DAILY PRN PO 2ND CHOICE CONSTIPATION 02/16/21 17:00 03/04/21 09:21 DC Vitamin D (Vitamin D3) 50,000 unit WEEKLY PO 02/22/21 09:00 03/04/21 09:21 DC 02/22/21 07:16 Clonazepam (KlonoPIN) 0.5 mg BID PO 02/16/21 21:00 02/27/21 19:54 DC 02/27/21 10:11 Dicyclomine HCl (Bentyl) 20 mg TID PO 02/16/21 21:00 03/04/21 09:21 DC 03/03/21 21:07 Diphenoxylate HCl/ Atropine (Lomotil) 2 tab BID PO 02/16/21 21:00 03/04/21 09:21 DC 03/03/21 21:08 Divalproex Sodium (Depakote Er) 1,000 mg HS PO 02/16/21 21:00 03/07/21 20:15 DC 03/04/21 21:43 Duloxetine HCl (Cymbalta) 30 mg BID PO 02/16/21 21:00 03/07/21 20:15 DC 03/06/21 08:14 Fluticasone Propionate (Flonase) 2 spray DAILY NS 02/17/21 09:00 04/13/21 09:00 Furosemide (Lasix) 20 mg DAILY PO 02/17/21 09:00 03/04/21 09:21 DC 03/03/21 08:32 Gabapentin (Neurontin) 300 mg QID PO 02/16/21 17:00 04/13/21 19:53 Hydroxyurea (Hydrea) 1,000 mg DAILY PO 02/17/21 09:00 04/13/21 09:00 Levetiracetam (Keppra) 250 mg BID PO 02/16/21 21:00 03/02/21 14:48 DC 03/02/21 09:54 Lidocaine (Lidoderm) 1 patch DAILY TP 02/17/21 09:00 02/17/21 09:24 DC Al Hydroxide/Mg Hydroxide (Mylanta Plus Xs) 15 ml PRN AFTMEALHC PRN PO DYSPEPSIA 02/16/21 17:00 02/16/21 17:36 DC Mirabegron (Myrbetriq) 50 mg DAILY PO 02/17/21 09:00 03/04/21 09:21 DC 03/03/21 08:30 Nystatin (Nystop) 1 debra BID TP 02/16/21 21:00 04/13/21 19:51 Pantoprazole Sodium (Protonix) 40 mg DAILYAC PO 02/17/21 07:30 04/13/21 11:11 Potassium Chloride (Klor-Con) 40 meq DAILY PO 02/17/21 09:00 03/04/21 09:21 DC 03/03/21 08:32 Sulfasalazine (Azulfidine) 500 mg TID PO 02/16/21 21:00 03/07/21 20:15 DC 03/06/21 13:05 Trazodone HCl (Desyrel) 50 mg QHS PO 02/16/21 21:00 04/13/21 19:48 Non-Formulary Medication (Albuterol Sulfate (Albuterol Sulfate Conc Neb Soln)) 1 vial PRN Q4HRS PRN NEB SHORTNESS OF BREATH 02/16/21 17:00 02/16/21 17:49 DC Ascorbic Acid (Vitamin C) 1,000 mg DAILY PO 02/17/21 09:00 03/04/21 09:21 DC 03/03/21 08:34 Diltiazem HCl (Cardizem) 60 mg BID PO 02/16/21 21:00 04/13/21 19:48 Lactobacillus Rhamnosus (Culturelle) 1 cap DAILY PO 02/17/21 09:00 03/04/21 09:21 DC 03/03/21 08:32 Amylase/Lipase/ Protease (Zenpep 10,000) 1 cap TIDBFRMEAL PO 02/17/21 07:30 04/13/21 17:10 Non-Formulary Medication (Magnesium Hydroxide (Milk Of Magnesia)) 2,400 mg PRN DAILY PRN PO CONSTIPATION 02/16/21 17:00 02/16/21 17:37 DC Magnesium Oxide (Magnesium Oxide) 400 mg DAILY PO 02/17/21 09:00 03/04/21 09:21 DC 03/03/21 08:31 Non-Formulary Medication (Methyl Salicylate/ Menthol (Analgesic [place])) 1 debra PRN Q6HRS PRN TP MUSCLE PAIN 02/16/21 17:00 02/16/21 17:37 DC Non-Formulary Medication (Umeclidinium [place] (Incruse Ellipta)) 62.5 mcg DAILY IH 02/17/21 09:00 02/16/21 17:49 DC Non-Formulary Medication (Zinc Gluconate ) 50 mg DAILY PO 02/17/21 09:00 02/16/21 17:46 DC Albuterol/ Ipratropium (Duoneb) 3 ml RTQID NEB 02/16/21 20:00 02/17/21 19:52 DC Albuterol Sulfate (Ventolin) 2.5 mg PRN Q4HRS PRN NEB SHORTNESS OF BREATH 02/16/21 18:00 Influenza Virus Vaccine Quadrival (Flulaval Quad [id number] Syringe) 0.5 ml ONCE ONCE VAX IM 02/17/21 09:00 02/17/21 09:01 DC 02/17/21 09:21 Lidocaine (Lidoderm) 1 patch DAILY PRN TP pain 02/17/21 09:30 03/29/21 12:01 DC 03/28/21 08:37 Albuterol/ Ipratropium (Combivent Respimat 20-100 Mcg) 1 puff RTQID INH 02/17/21 20:00 04/13/21 19:54 Sertraline HCl (Zoloft) 25 mg DAILY PO 02/22/21 09:00 02/24/21 10:00 DC 02/24/21 09:59 Sertraline HCl (Zoloft) 50 mg DAILY PO 02/25/21 09:00 03/01/21 18:30 DC 03/01/21 10:07 Olanzapine (ZyPREXA ZYDIS) 5 mg 1X ONCE PO 02/26/21 12:03 02/26/21 12:09 DC 02/26/21 12:25 Clonazepam (KlonoPIN) 0.5 mg DAILY PO 02/28/21 09:00 03/02/21 07:00 DC 03/01/21 10:07 Bupropion HCl (Wellbutrin Xl) 150 mg DAILY PO 03/02/21 09:00 03/08/21 15:46 DC 03/08/21 08:41 Levetiracetam (Keppra) 250 mg DAILY PO 03/03/21 09:00 04/10/21 00:12 DC 04/09/21 08:53 Aripiprazole (Abilify) 5 mg DAILY PO 03/05/21 09:00 04/13/21 11:11 Ondansetron HCl (Zofran Odt) 4 mg PRN Q4HRS PRN PO NAUSEA/VOMITING 03/06/21 19:30 04/02/21 09:23 Potassium Chloride (Klor-Con) 30 meq BID PO 03/07/21 09:00 04/13/21 19:50 Divalproex Sodium (Depakote Er) 1,000 mg 1700 PO 03/08/21 17:00 03/12/21 00:01 DC 03/11/21 17:27 Duloxetine HCl (Cymbalta) 30 mg 0900,1700 PO 03/08/21 17:00 04/13/21 17:10 Sulfasalazine (Azulfidine) 500 mg 0900,1300,1700 PO 03/08/21 09:00 04/13/21 17:10 Bupropion HCl (Wellbutrin Xl) 300 mg DAILY PO 03/09/21 09:00 04/13/21 09:00 Potassium Chloride (Klor-Con) 40 meq 1630,1730 PO 03/08/21 16:30 03/08/21 18:04 DC 03/08/21 16:57 Potassium Chloride (Klor-Con) 40 meq 1700,1800 PO 03/08/21 17:15 03/08/21 18:04 DC 03/08/21 17:56 Divalproex Sodium (Depakote Sprinkles) 500 mg BID PO 03/12/21 09:00 04/13/21 19:51 Clotrimazole (Mycelex-7) 1 debra QHS VG 03/18/21 21:00 03/25/21 20:59 DC 03/24/21 20:20 Dicyclomine HCl (Bentyl) 20 mg TID PO 03/18/21 21:00 04/13/21 19:48 Diphenoxylate HCl/ Atropine (Lomotil) 2 tab BID PO 03/18/21 21:00 04/13/21 19:53 Lidocaine (Lidoderm) 1 patch PRN DAILY PRN TP pain 03/29/21 12:15 I have reviewed the current psychotropics carefully including drug interactions. Risk benefit ratio favors no change other than as noted in my dictated progress note. Diagnosis: Problems: (1) Impulse control disorder, unspecified (2) Mild cognitive impairment (3) Anxiety disorder, unspecified (4) Bipolar disorder, curr episode mixed, severe, with psychotic features (5) Bipolar 1 disorder, depressed NITHIN STEVENS MD Apr 13, 2021 20:45
--- NOTE | 2021-04-14 00:22 | NUR ---
Nursing Note Pt in room dozing on and off, awakens to voice. She is startled awake and thinks she slept the whole night and that it is morning. Pt med compliant and cooperative. Denies complaints except for being in her room secondary to covid 19 isolation. Now resting.
[2021-04-14 06:23] VITALS: BP 119/75
--- NOTE | 2021-04-14 06:46 | PDOC ---
Exam Note: Napoleon Note: This note is a late entry for 04/13/2021 covers elements not covered in my initial note. Subjective: The patient was reviewed at treatment team meeting individually in the morning on 04/13/2021 with Lety Farley, Rosalva Hutton, and Archana Dillrad (social work specialist), Bessy, activity therapy, and Cheryl RN, discussed and reviewed the chart. The patient slept 6-1/2 hours previous night. She has been isolative. Repeat Covid RT-PCR will be done. Additionally the discussion at treatment team about consulting with the ethics committee since the patients DPOA has stepped down and no one is available to assist with this. She is compliant with the medications. She has attended 6 groups this past week and gets confused, sometimes drops herself on the floor, but keeping her oxygen at 2 L, more consistently. Review of Systems: Impaired ambulation, in Broda chair. Shortness of breath on O2 supplements. No CV, , eye, ENT system symptoms on review per nursing report. Mental Status Exam: The patient is oriented to herself and situation. Speech coherent. Abstraction fair. Computation impaired. Language function intact. No suicidal or homicidal ideation. Laboratory Data: Reviewed. Impression: Bipolar disorder, depressed. Anxiety disorder unspecified. Impulse control disorder unspecified. Plan: No change from initial note. We will repeat the patients Covid screen tomorrow and then perhaps remove her from isolation if it is negative. Assessment: Vital Signs/I&O: Vital Signs Date Time Temp Pulse Resp B/P (MAP) Pulse Ox O2 Delivery O2 Flow Rate FiO2 04/14/21 06:23 97.8 78 22 119/75 (90) 92 04/13/21 15:27 Nasal Cannula 2.0 I & O 04/13/21 04/13/21 04/14/21 15:00 23:00 07:00 Intake Total 0 ml 120 ml Balance 0 ml 120 ml Labs: Laboratory Tests Test 04/13/21 17:20 SARS-CoV-2 (PCR) Not detected (NOT DETECTD) Current Medications: Meds: Laboratory Tests Test 04/13/21 17:20 Coronavirus (COVID-19)(PCR) Not detected Current Medications Medications (Trade) Dose Ordered Sig/Mya Route PRN Reason Start Time Stop Time Status Last Admin Dose Admin Acetaminophen (Tylenol) 650 mg PRN Q6HRS PRN PO MILD PAIN / TEMP > 100.3'F 02/16/21 15:45 03/04/21 09:21 DC 02/18/21 06:31 Multi-Ingredient Ointment (Analgesic [place]) 1 debra PRN QID PRN TP MUSCLE PAIN 02/16/21 15:45 03/04/21 09:21 DC Al Hydroxide/Mg Hydroxide (Mylanta Plus Xs) 15 ml PRN AFTMEALHC PRN PO DYSPEPSIA 02/16/21 15:45 03/04/21 22:05 Magnesium Hydroxide (Milk Of Magnesia) 2,400 mg PRN QHS PRN PO 1ST CHOICE CONSTIPATION 02/16/21 15:45 03/04/21 09:21 DC Acetaminophen (Tylenol) 1,000 mg Q6HRS PRN PO pain or fever 02/16/21 17:00 02/16/21 17:35 DC Acetaminophen (Tylenol) 500 mg Q4HRS PRN PO MILD PAIN 1-3 02/16/21 17:00 02/16/21 17:36 DC Bisacodyl (Dulcolax Tab) 5 mg PRN DAILY PRN PO 2ND CHOICE CONSTIPATION 02/16/21 17:00 03/04/21 09:21 DC Vitamin D (Vitamin D3) 50,000 unit WEEKLY PO 02/22/21 09:00 03/04/21 09:21 DC 02/22/21 07:16 Clonazepam (KlonoPIN) 0.5 mg BID PO 02/16/21 21:00 02/27/21 19:54 DC 02/27/21 10:11 Dicyclomine HCl (Bentyl) 20 mg TID PO 02/16/21 21:00 03/04/21 09:21 DC 03/03/21 21:07 Diphenoxylate HCl/ Atropine (Lomotil) 2 tab BID PO 02/16/21 21:00 03/04/21 09:21 DC 03/03/21 21:08 Divalproex Sodium (Depakote Er) 1,000 mg HS PO 02/16/21 21:00 03/07/21 20:15 DC 03/04/21 21:43 Duloxetine HCl (Cymbalta) 30 mg BID PO 02/16/21 21:00 03/07/21 20:15 DC 03/06/21 08:14 Fluticasone Propionate (Flonase) 2 spray DAILY NS 02/17/21 09:00 04/13/21 09:00 Furosemide (Lasix) 20 mg DAILY PO 02/17/21 09:00 03/04/21 09:21 DC 03/03/21 08:32 Gabapentin (Neurontin) 300 mg QID PO 02/16/21 17:00 04/13/21 19:53 Hydroxyurea (Hydrea) 1,000 mg DAILY PO 02/17/21 09:00 04/13/21 09:00 Levetiracetam (Keppra) 250 mg BID PO 02/16/21 21:00 03/02/21 14:48 DC 03/02/21 09:54 Lidocaine (Lidoderm) 1 patch DAILY TP 02/17/21 09:00 02/17/21 09:24 DC Al Hydroxide/Mg Hydroxide (Mylanta Plus Xs) 15 ml PRN AFTMEALHC PRN PO DYSPEPSIA 02/16/21 17:00 02/16/21 17:36 DC Mirabegron (Myrbetriq) 50 mg DAILY PO 02/17/21 09:00 03/04/21 09:21 DC 03/03/21 08:30 Nystatin (Nystop) 1 debra BID TP 02/16/21 21:00 04/13/21 19:51 Pantoprazole Sodium (Protonix) 40 mg DAILYAC PO 02/17/21 07:30 04/13/21 11:11 Potassium Chloride (Klor-Con) 40 meq DAILY PO 02/17/21 09:00 03/04/21 09:21 DC 03/03/21 08:32 Sulfasalazine (Azulfidine) 500 mg TID PO 02/16/21 21:00 03/07/21 20:15 DC 03/06/21 13:05 Trazodone HCl (Desyrel) 50 mg QHS PO 02/16/21 21:00 04/13/21 19:48 Non-Formulary Medication (Albuterol Sulfate (Albuterol Sulfate Conc Neb Soln)) 1 vial PRN Q4HRS PRN NEB SHORTNESS OF BREATH 02/16/21 17:00 02/16/21 17:49 DC Ascorbic Acid (Vitamin C) 1,000 mg DAILY PO 02/17/21 09:00 03/04/21 09:21 DC 03/03/21 08:34 Diltiazem HCl (Cardizem) 60 mg BID PO 02/16/21 21:00 04/13/21 19:48 Lactobacillus Rhamnosus (Culturelle) 1 cap DAILY PO 02/17/21 09:00 03/04/21 09:21 DC 03/03/21 08:32 Amylase/Lipase/ Protease (Zenpep 10,000) 1 cap TIDBFRMEAL PO 02/17/21 07:30 04/13/21 17:10 Non-Formulary Medication (Magnesium Hydroxide (Milk Of Magnesia)) 2,400 mg PRN DAILY PRN PO CONSTIPATION 02/16/21 17:00 02/16/21 17:37 DC Magnesium Oxide (Magnesium Oxide) 400 mg DAILY PO 02/17/21 09:00 03/04/21 09:21 DC 03/03/21 08:31 Non-Formulary Medication (Methyl Salicylate/ Menthol (Analgesic [place])) 1 debra PRN Q6HRS PRN TP MUSCLE PAIN 02/16/21 17:00 02/16/21 17:37 DC Non-Formulary Medication (Umeclidinium [place] (Incruse Ellipta)) 62.5 mcg DAILY IH 02/17/21 09:00 02/16/21 17:49 DC Non-Formulary Medication (Zinc Gluconate ) 50 mg DAILY PO 02/17/21 09:00 02/16/21 17:46 DC Albuterol/ Ipratropium (Duoneb) 3 ml RTQID NEB 02/16/21 20:00 02/17/21 19:52 DC Albuterol Sulfate (Ventolin) 2.5 mg PRN Q4HRS PRN NEB SHORTNESS OF BREATH 02/16/21 18:00 Influenza Virus Vaccine Quadrival (Flulaval Quad [id number] Syringe) 0.5 ml ONCE ONCE VAX IM 02/17/21 09:00 02/17/21 09:01 DC 02/17/21 09:21 Lidocaine (Lidoderm) 1 patch DAILY PRN TP pain 02/17/21 09:30 03/29/21 12:01 DC 03/28/21 08:37 Albuterol/ Ipratropium (Combivent Respimat 20-100 Mcg) 1 puff RTQID INH 02/17/21 20:00 04/13/21 19:54 Sertraline HCl (Zoloft) 25 mg DAILY PO 02/22/21 09:00 02/24/21 10:00 DC 02/24/21 09:59 Sertraline HCl (Zoloft) 50 mg DAILY PO 02/25/21 09:00 03/01/21 18:30 DC 03/01/21 10:07 Olanzapine (ZyPREXA ZYDIS) 5 mg 1X ONCE PO 02/26/21 12:03 02/26/21 12:09 DC 02/26/21 12:25 Clonazepam (KlonoPIN) 0.5 mg DAILY PO 02/28/21 09:00 03/02/21 07:00 DC 03/01/21 10:07 Bupropion HCl (Wellbutrin Xl) 150 mg DAILY PO 03/02/21 09:00 03/08/21 15:46 DC 03/08/21 08:41 Levetiracetam (Keppra) 250 mg DAILY PO 03/03/21 09:00 04/10/21 00:12 DC 04/09/21 08:53 Aripiprazole (Abilify) 5 mg DAILY PO 03/05/21 09:00 04/13/21 11:11 Ondansetron HCl (Zofran Odt) 4 mg PRN Q4HRS PRN PO NAUSEA/VOMITING 03/06/21 19:30 04/02/21 09:23 Potassium Chloride (Klor-Con) 30 meq BID PO 03/07/21 09:00 04/13/21 19:50 Divalproex Sodium (Depakote Er) 1,000 mg 1700 PO 03/08/21 17:00 03/12/21 00:01 DC 03/11/21 17:27 Duloxetine HCl (Cymbalta) 30 mg 0900,1700 PO 03/08/21 17:00 04/13/21 17:10 Sulfasalazine (Azulfidine) 500 mg 0900,1300,1700 PO 03/08/21 09:00 04/13/21 17:10 Bupropion HCl (Wellbutrin Xl) 300 mg DAILY PO 03/09/21 09:00 04/13/21 09:00 Potassium Chloride (Klor-Con) 40 meq 1630,1730 PO 03/08/21 16:30 03/08/21 18:04 DC 03/08/21 16:57 Potassium Chloride (Klor-Con) 40 meq 1700,1800 PO 03/08/21 17:15 03/08/21 18:04 DC 03/08/21 17:56 Divalproex Sodium (Depakote Sprinkles) 500 mg BID PO 03/12/21 09:00 04/13/21 19:51 Clotrimazole (Mycelex-7) 1 debra QHS VG 03/18/21 21:00 03/25/21 20:59 DC 03/24/21 20:20 Dicyclomine HCl (Bentyl) 20 mg TID PO 03/18/21 21:00 04/13/21 19:48 Diphenoxylate HCl/ Atropine (Lomotil) 2 tab BID PO 03/18/21 21:00 04/13/21 19:53 Lidocaine (Lidoderm) 1 patch PRN DAILY PRN TP pain 03/29/21 12:15 I have reviewed the current psychotropics carefully including drug interactions. Risk benefit ratio favors no change other than as noted in my dictated progress note. Diagnosis: Problems: (1) Mild cognitive impairment (2) Impulse control disorder, unspecified (3) Anxiety disorder, unspecified (4) Bipolar disorder, curr episode mixed, severe, with psychotic features (5) Bipolar 1 disorder, depressed NITHIN STEVENS MD Apr 14, 2021 06:46
[2021-04-14] MEDS: IPRATROPIUM/ALBUTEROL 20/100mcg/INH INHALER. INH SCH ×4 (08:00→20:22)
[2021-04-14] MEDS: DICYCLOMINE HCL 20 MG TABLET PO SCH ×3 (08:20→20:22)
[2021-04-14] MEDS: DULoxetine HCL 30 MG CAPSULE.DR PO SCH ×2 (08:21→16:54)
[2021-04-14] MEDS: GABAPENTIN 300 MG CAPSULE. PO SCH ×4 (08:21→20:22)
[2021-04-14] MEDS: DIPHENOXYLATE/ATROPINE TABLET. PO SCH ×2 (08:21→20:24)
[2021-04-14] MEDS: POTASSIUM CHLORIDE 10 MEQ TABLET.ER. PO SCH ×2 (08:22→20:25)
[2021-04-14] MEDS: LIPASE/PROTEAS/AMYLAS 10/32/42 CAPSULE.DR. PO SCH ×3 (08:22→16:53)
[2021-04-14] MEDS: PANTOPRAZOLE 40 MG TABLET. PO SCH (08:22)
[2021-04-14] MEDS: ARIPiprazole 5 MG TABLET PO SCH (08:22)
[2021-04-14] MEDS: DIVALPROEX 125 MG CAP.SPRINK PO SCH ×2 (08:22→20:25)
[2021-04-14] MEDS: dilTIAZem HCL 30 MG TABLET PO SCH ×2 (08:23→20:23)
[2021-04-14] MEDS: sulfaSALAzine 500 MG TABLET PO SCH ×3 (08:23→16:53)
[2021-04-14] MEDS: HYDROXYUREA 500 MG CAPSULE PO SCH (08:24)
[2021-04-14] MEDS: buPROPion XL 300 MG TAB.ER.24H. PO SCH (08:24)
[2021-04-14] MEDS: NYSTATIN TOPICAL POWDER 15GM BOTTLE. TP SCH ×2 (08:26→20:25)
[2021-04-14] MEDS: FLUTICASONE 50MCG/NASAL SPRAY 16GM BOTTLE. NS SCH (08:26)
--- NOTE | 2021-04-14 09:37 | NUR ---
Pt no longer in COVID19 isolation d/t 3 negative PCR retests. She is present and visible on the unit, appropriate in her interactions and absent of self harm behaviors. During breakfast she had a BM accident in her pants, she was cooperative with cares and ADLs. O2 at 2 lpm via NC remain in her nares, O2 sats have remained above 92% this shift. She is compliant with whole medications. Plan of care continues, will pass to next shift.
[2021-04-14 15:32] VITALS: BP 109/68
[2021-04-14] MEDS: traZODone 50 MG TABLET. PO SCH (20:24)
--- NOTE | 2021-04-14 21:08 | PDOC ---
Exam Note: Napoleon Note: Please also refer to the separate dictated note~for this date of service dictated separately.~Patient seen individually. Discussed the patient with Nursing staff reviewed the chart.~Reviewed interim history and current functioning. Reviewed vital signs,~Labs/ Radiology~and current medications noted below. Continue current treatment with the changes noted in the dictated addendum note Assessment: Vital Signs/I&O: Vital Signs Date Time Temp Pulse Resp B/P (MAP) Pulse Ox O2 Delivery O2 Flow Rate FiO2 04/14/21 20:23 88 109/68 04/14/21 15:32 97.7 19 93 04/13/21 15:27 Nasal Cannula 2.0 I & O 0 04/13/21 04/13/21 04/14/21 15:00 23:00 07:00 Intake Total 0 ml 120 ml Balance 0 ml 120 ml Current Medications: Meds: Current Medications Medications (Trade) Dose Ordered Sig/Mya Route PRN Reason Start Time Stop Time Status Last Admin Dose Admin Acetaminophen (Tylenol) 650 mg PRN Q6HRS PRN PO MILD PAIN / TEMP > 100.3'F 02/16/21 15:45 03/04/21 09:21 DC 02/18/21 06:31 Multi-Ingredient Ointment (Analgesic [place]) 1 debra PRN QID PRN TP MUSCLE PAIN 02/16/21 15:45 03/04/21 09:21 DC Al Hydroxide/Mg Hydroxide (Mylanta Plus Xs) 15 ml PRN AFTMEALHC PRN PO DYSPEPSIA 02/16/21 15:45 03/04/21 22:05 Magnesium Hydroxide (Milk Of Magnesia) 2,400 mg PRN QHS PRN PO 1ST CHOICE CONSTIPATION 02/16/21 15:45 03/04/21 09:21 DC Acetaminophen (Tylenol) 1,000 mg Q6HRS PRN PO pain or fever 02/16/21 17:00 02/16/21 17:35 DC Acetaminophen (Tylenol) 500 mg Q4HRS PRN PO MILD PAIN 1-3 02/16/21 17:00 02/16/21 17:36 DC Bisacodyl (Dulcolax Tab) 5 mg PRN DAILY PRN PO 2ND CHOICE CONSTIPATION 02/16/21 17:00 03/04/21 09:21 DC Vitamin D (Vitamin D3) 50,000 unit WEEKLY PO 10/13/21 09:00 03/04/21 09:21 DC 02/22/21 07:16 Clonazepam (KlonoPIN) 0.5 mg BID PO 02/16/21 21:00 02/27/21 19:54 DC 02/27/21 10:11 Dicyclomine HCl (Bentyl) 20 mg TID PO 02/16/21 21:00 03/04/21 09:21 DC 03/03/21 21:07 Diphenoxylate HCl/ Atropine (Lomotil) 2 tab BID PO 02/16/21 21:00 03/04/21 09:21 DC 03/03/21 21:08 Divalproex Sodium (Depakote Er) 1,000 mg HS PO 02/16/21 21:00 03/07/21 20:15 DC 03/04/21 21:43 Duloxetine HCl (Cymbalta) 30 mg BID PO 02/16/21 21:00 03/07/21 20:15 DC 03/06/21 08:14 Fluticasone Propionate (Flonase) 2 spray DAILY NS 02/17/21 09:00 04/14/21 08:26 Furosemide (Lasix) 20 mg DAILY PO 02/17/21 09:00 03/04/21 09:21 DC 03/03/21 08:32 Gabapentin (Neurontin) 300 mg QID PO 02/16/21 17:00 04/14/21 20:22 Hydroxyurea (Hydrea) 1,000 mg DAILY PO 02/17/21 09:00 04/14/21 08:24 Levetiracetam (Keppra) 250 mg BID PO 02/16/21 21:00 03/02/21 14:48 DC 03/02/21 09:54 Lidocaine (Lidoderm) 1 patch DAILY TP 02/17/21 09:00 02/17/21 09:24 DC Al Hydroxide/Mg Hydroxide (Mylanta Plus Xs) 15 ml PRN AFTMEALHC PRN PO DYSPEPSIA 02/16/21 17:00 02/16/21 17:36 DC Mirabegron (Myrbetriq) 50 mg DAILY PO 02/17/21 09:00 03/04/21 09:21 DC 03/03/21 08:30 Nystatin (Nystop) 1 debra BID TP 02/16/21 21:00 04/14/21 20:25 Pantoprazole Sodium (Protonix) 40 mg DAILYAC PO 02/17/21 07:30 04/14/21 08:22 Potassium Chloride (Klor-Con) 40 meq DAILY PO 02/17/21 09:00 03/04/21 09:21 DC 03/03/21 08:32 Sulfasalazine (Azulfidine) 500 mg TID PO 02/16/21 21:00 03/07/21 20:15 DC 03/06/21 13:05 Trazodone HCl (Desyrel) 50 mg QHS PO 02/16/21 21:00 04/14/21 20:24 Non-Formulary Medication (Albuterol Sulfate (Albuterol Sulfate Conc Neb Soln)) 1 vial PRN Q4HRS PRN NEB SHORTNESS OF BREATH 02/16/21 17:00 02/16/21 17:49 DC Ascorbic Acid (Vitamin C) 1,000 mg DAILY PO 02/17/21 09:00 03/04/21 09:21 DC 03/03/21 08:34 Diltiazem HCl (Cardizem) 60 mg BID PO 02/16/21 21:00 04/14/21 20:23 Lactobacillus Rhamnosus (Culturelle) 1 cap DAILY PO 02/17/21 09:00 03/04/21 09:21 DC 03/03/21 08:32 Amylase/Lipase/ Protease (Zenpep 10,000) 1 cap TIDBFRMEAL PO 02/17/21 07:30 04/14/21 16:53 Non-Formulary Medication (Magnesium Hydroxide (Milk Of Magnesia)) 2,400 mg PRN DAILY PRN PO CONSTIPATION 02/16/21 17:00 02/16/21 17:37 DC Magnesium Oxide (Magnesium Oxide) 400 mg DAILY PO 02/17/21 09:00 03/04/21 09:21 DC 03/03/21 08:31 Non-Formulary Medication (Methyl Salicylate/ Menthol (Analgesic [place])) 1 debra PRN Q6HRS PRN TP MUSCLE PAIN 02/16/21 17:00 02/16/21 17:37 DC Non-Formulary Medication (Umeclidinium [place] (Incruse Ellipta)) 62.5 mcg DAILY IH 02/17/21 09:00 02/16/21 17:49 DC Non-Formulary Medication (Zinc Gluconate ) 50 mg DAILY PO 02/17/21 09:00 02/16/21 17:46 DC Albuterol/ Ipratropium (Duoneb) 3 ml RTQID NEB 02/16/21 20:00 02/17/21 19:52 DC Albuterol Sulfate (Ventolin) 2.5 mg PRN Q4HRS PRN NEB SHORTNESS OF BREATH 02/16/21 18:00 Influenza Virus Vaccine Quadrival (Flulaval Quad [id number] Syringe) 0.5 ml ONCE ONCE VAX IM 02/17/21 09:00 02/17/21 09:01 DC 02/17/21 09:21 Lidocaine (Lidoderm) 1 patch DAILY PRN TP pain 02/17/21 09:30 03/29/21 12:01 DC 03/28/21 08:37 Albuterol/ Ipratropium (Combivent Respimat 20-100 Mcg) 1 puff RTQID INH 02/17/21 20:00 04/14/21 20:22 Sertraline HCl (Zoloft) 25 mg DAILY PO 02/22/21 09:00 02/24/21 10:00 DC 02/24/21 09:59 Sertraline HCl (Zoloft) 50 mg DAILY PO 02/25/21 09:00 03/01/21 18:30 DC 03/01/21 10:07 Olanzapine (ZyPREXA ZYDIS) 5 mg 1X ONCE PO 02/26/21 12:03 02/26/21 12:09 DC 02/26/21 12:25 Clonazepam (KlonoPIN) 0.5 mg DAILY PO 02/28/21 09:00 03/02/21 07:00 DC 03/01/21 10:07 Bupropion HCl (Wellbutrin Xl) 150 mg DAILY PO 03/02/21 09:00 03/08/21 15:46 DC 03/08/21 08:41 Levetiracetam (Keppra) 250 mg DAILY PO 03/03/21 09:00 04/10/21 00:12 DC 04/09/21 08:53 Aripiprazole (Abilify) 5 mg DAILY PO 03/05/21 09:00 123/21 08:22 Ondansetron HCl (Zofran Odt) 4 mg PRN Q4HRS PRN PO NAUSEA/VOMITING 03/06/21 19:30 04/02/21 09:23 Potassium Chloride (Klor-Con) 30 meq BID PO 03/07/21 09:00 04/14/21 20:25 Divalproex Sodium (Depakote Er) 1,000 mg 1700 PO 03/08/21 17:00 03/12/21 00:01 DC 03/11/21 17:27 Duloxetine HCl (Cymbalta) 30 mg 0900,1700 PO 03/08/21 17:00 04/14/21 16:54 Sulfasalazine (Azulfidine) 500 mg 0900,1300,1700 PO 03/08/21 09:00 04/14/21 16:53 Bupropion HCl (Wellbutrin Xl) 300 mg DAILY PO 03/09/21 09:00 04/14/21 08:24 Potassium Chloride (Klor-Con) 40 meq 1630,1730 PO 03/08/21 16:30 03/08/21 18:04 DC 03/08/21 16:57 Potassium Chloride (Klor-Con) 40 meq 1700,1800 PO 03/08/21 17:15 03/08/21 18:04 DC 03/08/21 17:56 Divalproex Sodium (Depakote Sprinkles) 500 mg BID PO 03/12/21 09:00 04/14/21 20:25 Clotrimazole (Mycelex-7) 1 debra QHS VG 03/18/21 21:00 03/25/21 20:59 DC 03/24/21 20:20 Dicyclomine HCl (Bentyl) 20 mg TID PO 03/18/21 21:00 04/14/21 20:22 Diphenoxylate HCl/ Atropine (Lomotil) 2 tab BID PO 03/18/21 21:00 04/14/21 20:24 Lidocaine (Lidoderm) 1 patch PRN DAILY PRN TP pain 03/29/21 12:15 I have reviewed the current psychotropics carefully including drug interactions. Risk benefit ratio favors no change other than as noted in my dictated progress note. Diagnosis: Problems: (1) Impulse control disorder, unspecified (2) Mild cognitive impairment (3) Anxiety disorder, unspecified (4) Bipolar disorder, curr episode mixed, severe, with psychotic features (5) Bipolar 1 disorder, depressed NITHIN STEVENS MD Apr 14, 2021 21:08
[2021-04-15 05:52] VITALS: BP 111/64
--- NOTE | 2021-04-15 06:49 | PDOC ---
Exam Note: Napoleon Note: This note is a late entry for 04/14/2021 covers elements not covered in my initial note. Subjective: The patient was seen individually in the evening of 04/14/2021 with Dipesh BARR, discussed and reviewed the chart. The patient slept 6-1/4 hours previous night. She is no longer in isolation as she had two negative Covid screens. She is not putting herself on the floor and I met with her in the dayroom. She is more pleasant, interactive, keeping her oxygen in place. Review of Systems: Impaired ambulation, in Broda chair. Shortness of breath on O2 supplements. No CV, , eye, ENT system symptoms on review per nursing report. Mental Status Exam: The patient is oriented to herself and situation. Speech has some latency, coherent. Abstraction fair. Computation impaired. Language function intact. Often verbal response is monosyllabic. No suicidal or homicidal ideation. Laboratory Data: Reviewed. Impression: Bipolar disorder, depressed. Anxiety disorder unspecified. Impulse control disorder unspecified. Plan: No change from initial note. Assessment: Vital Signs/I&O: Vital Signs Date Time Temp Pulse Resp B/P (MAP) Pulse Ox O2 Delivery O2 Flow Rate FiO2 04/15/21 05:52 97.8 84 20 111/64 (80) 95 Nasal Cannula 2.0 I & O 04/14/21 04/14/21 04/15/21 15:00 23:00 07:00 Intake Total 840 ml 720 ml Balance 840 ml 720 ml Current Medications: Meds: Current Medications Medications (Trade) Dose Ordered Sig/Mya Route PRN Reason Start Time Stop Time Status Last Admin Dose Admin Acetaminophen (Tylenol) 650 mg PRN Q6HRS PRN PO MILD PAIN / TEMP > 100.3'F 02/16/21 15:45 03/04/21 09:21 DC 02/18/21 06:31 Multi-Ingredient Ointment (Analgesic [place]) 1 debra PRN QID PRN TP MUSCLE PAIN 02/16/21 15:45 03/04/21 09:21 DC Al Hydroxide/Mg Hydroxide (Mylanta Plus Xs) 15 ml PRN AFTMEALHC PRN PO DYSPEPSIA 02/16/21 15:45 03/04/21 22:05 Magnesium Hydroxide (Milk Of Magnesia) 2,400 mg PRN QHS PRN PO 1ST CHOICE CONSTIPATION 02/16/21 15:45 03/04/21 09:21 DC Acetaminophen (Tylenol) 1,000 mg Q6HRS PRN PO pain or fever 02/16/21 17:00 02/16/21 17:35 DC Acetaminophen (Tylenol) 500 mg Q4HRS PRN PO MILD PAIN 1-3 02/16/21 17:00 02/16/21 17:36 DC Bisacodyl (Dulcolax Tab) 5 mg PRN DAILY PRN PO 2ND CHOICE CONSTIPATION 02/16/21 17:00 03/04/21 09:21 DC Vitamin D (Vitamin D3) 50,000 unit WEEKLY PO 02/22/21 09:00 03/04/21 09:21 DC 02/22/21 07:16 Clonazepam (KlonoPIN) 0.5 mg BID PO 02/16/21 21:00 02/27/21 19:54 DC 02/27/21 10:11 Dicyclomine HCl (Bentyl) 20 mg TID PO 02/16/21 21:00 03/04/21 09:21 DC 03/03/21 21:07 Diphenoxylate HCl/ Atropine (Lomotil) 2 tab BID PO 02/16/21 21:00 03/04/21 09:21 DC 03/03/21 21:08 Divalproex Sodium (Depakote Er) 1,000 mg HS PO 02/16/21 21:00 03/07/21 20:15 DC 03/04/21 21:43 Duloxetine HCl (Cymbalta) 30 mg BID PO 02/16/21 21:00 03/07/21 20:15 DC 03/06/21 08:14 Fluticasone Propionate (Flonase) 2 spray DAILY NS 02/17/21 09:00 04/14/21 08:26 Furosemide (Lasix) 20 mg DAILY PO 02/17/21 09:00 03/04/21 09:21 DC 03/03/21 08:32 Gabapentin (Neurontin) 300 mg QID PO 02/16/21 17:00 04/14/21 20:22 Hydroxyurea (Hydrea) 1,000 mg DAILY PO 02/17/21 09:00 04/14/21 08:24 Levetiracetam (Keppra) 250 mg BID PO 02/16/21 21:00 03/02/21 14:48 DC 03/02/21 09:54 Lidocaine (Lidoderm) 1 patch DAILY TP 02/17/21 09:00 02/17/21 09:24 DC Al Hydroxide/Mg Hydroxide (Mylanta Plus Xs) 15 ml PRN AFTMEALHC PRN PO DYSPEPSIA 02/16/21 17:00 02/16/21 17:36 DC Mirabegron (Myrbetriq) 50 mg DAILY PO 02/17/21 09:00 03/04/21 09:21 DC 03/03/21 08:30 Nystatin (Nystop) 1 debra BID TP 02/16/21 21:00 04/14/21 20:25 Pantoprazole Sodium (Protonix) 40 mg DAILYAC PO 02/17/21 07:30 04/14/21 08:22 Potassium Chloride (Klor-Con) 40 meq DAILY PO 02/17/21 09:00 03/04/21 09:21 DC 03/03/21 08:32 Sulfasalazine (Azulfidine) 500 mg TID PO 02/16/21 21:00 03/07/21 20:15 DC 03/06/21 13:05 Trazodone HCl (Desyrel) 50 mg QHS PO 02/16/21 21:00 04/14/21 20:24 Non-Formulary Medication (Albuterol Sulfate (Albuterol Sulfate Conc Neb Soln)) 1 vial PRN Q4HRS PRN NEB SHORTNESS OF BREATH 02/16/21 17:00 02/16/21 17:49 DC Ascorbic Acid (Vitamin C) 1,000 mg DAILY PO 02/17/21 09:00 03/04/21 09:21 DC 03/03/21 08:34 Diltiazem HCl (Cardizem) 60 mg BID PO 02/16/21 21:00 04/14/21 20:23 Lactobacillus Rhamnosus (Culturelle) 1 cap DAILY PO 02/17/21 09:00 03/04/21 09:21 DC 03/03/21 08:32 Amylase/Lipase/ Protease (Zenpep 10,000) 1 cap TIDBFRMEAL PO 02/17/21 07:30 04/14/21 16:53 Non-Formulary Medication (Magnesium Hydroxide (Milk Of Magnesia)) 2,400 mg PRN DAILY PRN PO CONSTIPATION 02/16/21 17:00 02/16/21 17:37 DC Magnesium Oxide (Magnesium Oxide) 400 mg DAILY PO 02/17/21 09:00 03/04/21 09:21 DC 03/03/21 08:31 Non-Formulary Medication (Methyl Salicylate/ Menthol (Analgesic [place])) 1 debra PRN Q6HRS PRN TP MUSCLE PAIN 02/16/21 17:00 02/16/21 17:37 DC Non-Formulary Medication (Umeclidinium [place] (Incruse Ellipta)) 62.5 mcg DAILY IH 02/17/21 09:00 02/16/21 17:49 DC Non-Formulary Medication (Zinc Gluconate ) 50 mg DAILY PO 02/17/21 09:00 02/16/21 17:46 DC Albuterol/ Ipratropium (Duoneb) 3 ml RTQID NEB 02/16/21 20:00 02/17/21 19:52 DC Albuterol Sulfate (Ventolin) 2.5 mg PRN Q4HRS PRN NEB SHORTNESS OF BREATH 02/16/21 18:00 Influenza Virus Vaccine Quadrival (Flulaval Quad [id number] Syringe) 0.5 ml ONCE ONCE VAX IM 02/17/21 09:00 02/17/21 09:01 DC 02/17/21 09:21 Lidocaine (Lidoderm) 1 patch DAILY PRN TP pain 02/17/21 09:30 03/29/21 12:01 DC 03/28/21 08:37 Albuterol/ Ipratropium (Combivent Respimat 20-100 Mcg) 1 puff RTQID INH 02/17/21 20:00 04/14/21 20:22 Sertraline HCl (Zoloft) 25 mg DAILY PO 02/22/21 09:00 02/24/21 10:00 DC 02/24/21 09:59 Sertraline HCl (Zoloft) 50 mg DAILY PO 02/25/21 09:00 03/01/21 18:30 DC 03/01/21 10:07 Olanzapine (ZyPREXA ZYDIS) 5 mg 1X ONCE PO 02/26/21 12:03 02/26/21 12:09 DC 02/26/21 12:25 Clonazepam (KlonoPIN) 0.5 mg DAILY PO 02/28/21 09:00 03/02/21 07:00 DC 03/01/21 10:07 Bupropion HCl (Wellbutrin Xl) 150 mg DAILY PO 03/02/21 09:00 03/08/21 15:46 DC 03/08/21 08:41 Levetiracetam (Keppra) 250 mg DAILY PO 03/03/21 09:00 04/10/21 00:12 DC 04/09/21 08:53 Aripiprazole (Abilify) 5 mg DAILY PO 03/05/21 09:00 04/14/21 08:22 Ondansetron HCl (Zofran Odt) 4 mg PRN Q4HRS PRN PO NAUSEA/VOMITING 03/06/21 19:30 04/02/21 09:23 Potassium Chloride (Klor-Con) 30 meq BID PO 03/07/21 09:00 04/14/21 20:25 Divalproex Sodium (Depakote Er) 1,000 mg 1700 PO 03/08/21 17:00 03/12/21 00:01 DC 03/11/21 17:27 Duloxetine HCl (Cymbalta) 30 mg 0900,1700 PO 03/08/21 17:00 04/14/21 16:54 Sulfasalazine (Azulfidine) 500 mg 0900,1300,1700 PO 03/08/21 09:00 04/14/21 16:53 Bupropion HCl (Wellbutrin Xl) 300 mg DAILY PO 03/09/21 09:00 04/14/21 08:24 Potassium Chloride (Klor-Con) 40 meq 1630,1730 PO 03/08/21 16:30 03/08/21 18:04 DC 03/08/21 16:57 Potassium Chloride (Klor-Con) 40 meq 1700,1800 PO 03/08/21 17:15 03/08/21 18:04 DC 03/08/21 17:56 Divalproex Sodium (Depakote Sprinkles) 500 mg BID PO 03/12/21 09:00 04/14/21 20:25 Clotrimazole (Mycelex-7) 1 debra QHS VG 03/18/21 21:00 03/25/21 20:59 DC 03/24/21 20:20 Dicyclomine HCl (Bentyl) 20 mg TID PO 03/18/21 21:00 04/14/21 20:22 Diphenoxylate HCl/ Atropine (Lomotil) 2 tab BID PO 03/18/21 21:00 04/14/21 20:24 Lidocaine (Lidoderm) 1 patch PRN DAILY PRN TP pain 03/29/21 12:15 I have reviewed the current psychotropics carefully including drug interactions. Risk benefit ratio favors no change other than as noted in my dictated progress note. Diagnosis: Problems: (1) Impulse control disorder, unspecified (2) COPD (chronic obstructive pulmonary disease) (3) Mild cognitive impairment (4) Anxiety disorder, unspecified (5) Bipolar disorder, curr episode mixed, severe, with psychotic features (6) Bipolar 1 disorder, depressed NITHIN STEVENS MD Apr 15, 2021 06:49
[2021-04-15] MEDS: IPRATROPIUM/ALBUTEROL 20/100mcg/INH INHALER. INH SCH ×4 (08:00→19:30)
[2021-04-15] MEDS: DIVALPROEX 125 MG CAP.SPRINK PO SCH ×2 (08:53→19:31)
[2021-04-15] MEDS: PANTOPRAZOLE 40 MG TABLET. PO SCH (08:53)
[2021-04-15] MEDS: ARIPiprazole 5 MG TABLET PO SCH (08:53)
[2021-04-15] MEDS: LIPASE/PROTEAS/AMYLAS 10/32/42 CAPSULE.DR. PO SCH ×3 (08:53→16:30)
[2021-04-15] MEDS: DULoxetine HCL 30 MG CAPSULE.DR PO SCH ×2 (08:53→17:00)
[2021-04-15] MEDS: DIPHENOXYLATE/ATROPINE TABLET. PO SCH ×2 (08:53→19:28)
[2021-04-15] MEDS: POTASSIUM CHLORIDE 10 MEQ TABLET.ER. PO SCH ×2 (08:53→19:31)
[2021-04-15] MEDS: GABAPENTIN 300 MG CAPSULE. PO SCH ×4 (08:53→19:30)
[2021-04-15] MEDS: sulfaSALAzine 500 MG TABLET PO SCH ×3 (08:54→17:00)
[2021-04-15] MEDS: dilTIAZem HCL 30 MG TABLET PO SCH ×2 (08:54→19:30)
[2021-04-15] MEDS: DICYCLOMINE HCL 20 MG TABLET PO SCH ×3 (08:54→19:31)
[2021-04-15] MEDS: buPROPion XL 300 MG TAB.ER.24H. PO SCH (08:55)
[2021-04-15] MEDS: HYDROXYUREA 500 MG CAPSULE PO SCH (08:55)
[2021-04-15] MEDS: FLUTICASONE 50MCG/NASAL SPRAY 16GM BOTTLE. NS SCH (08:55)
[2021-04-15] MEDS: NYSTATIN TOPICAL POWDER 15GM BOTTLE. TP SCH ×2 (08:56→19:32)
--- NOTE | 2021-04-15 09:42 | NUR ---
Pt is present and visible on the unit, appropriate in her interactions and absent of self harm behaviors. O2 at 2 lpm via NC remain in her nares, O2 sats have remained above 93% this shift. She is compliant with whole medications. Pt speaks more openly about her opinions (and criticisms) of other patients and their behaviors on the unit. Plan of care continues, will pass to next shift.
[2021-04-15 15:06] VITALS: BP 121/80
[2021-04-15] MEDS: traZODone 50 MG TABLET. PO SCH (19:28)
--- NOTE | 2021-04-15 21:00 | PDOC ---
Exam Note: Napoleon Note: Please also refer to the separate dictated note~for this date of service dictated separately.~Patient seen individually. Discussed the patient with Nursing staff reviewed the chart.~Reviewed interim history and current functioning. Reviewed vital signs,~Labs/ Radiology~and current medications noted below. Continue current treatment with the changes noted in the dictated addendum note Assessment: Vital Signs/I&O: Vital Signs Date Time Temp Pulse Resp B/P (MAP) Pulse Ox O2 Delivery O2 Flow Rate FiO2 04/15/21 19:30 86 121/80 04/15/21 15:06 98.3 18 93 Nasal Cannula 2.0 I & O 04/14/21 04/14/21 04/15/21 15:00 23:00 07:00 Intake Total 840 ml 720 ml Balance 840 ml 720 ml Current Medications: Meds: Current Medications Medications (Trade) Dose Ordered Sig/Mya Route PRN Reason Start Time Stop Time Status Last Admin Dose Admin Acetaminophen (Tylenol) 650 mg PRN Q6HRS PRN PO MILD PAIN / TEMP > 100.3'F 02/16/21 15:45 03/04/21 09:21 DC 02/18/21 06:31 Multi-Ingredient Ointment (Analgesic [place]) 1 debra PRN QID PRN TP MUSCLE PAIN 02/16/21 15:45 03/04/21 09:21 DC Al Hydroxide/Mg Hydroxide (Mylanta Plus Xs) 15 ml PRN AFTMEALHC PRN PO DYSPEPSIA 02/16/21 15:45 03/04/21 22:05 Magnesium Hydroxide (Milk Of Magnesia) 2,400 mg PRN QHS PRN PO 1ST CHOICE CONSTIPATION 02/16/21 15:45 03/04/21 09:21 DC Acetaminophen (Tylenol) 1,000 mg Q6HRS PRN PO pain or fever 02/16/21 17:00 02/16/21 17:35 DC Acetaminophen (Tylenol) 500 mg Q4HRS PRN PO MILD PAIN 1-3 02/16/21 17:00 02/16/21 17:36 DC Bisacodyl (Dulcolax Tab) 5 mg PRN DAILY PRN PO 2ND CHOICE CONSTIPATION 02/16/21 17:00 03/04/21 09:21 DC Vitamin D (Vitamin D3) 50,000 unit WEEKLY PO 02/22/21 09:00 03/04/21 09:21 DC 02/22/21 07:16 Clonazepam (KlonoPIN) 0.5 mg BID PO 02/16/21 21:00 02/27/21 19:54 DC 02/27/21 10:11 Dicyclomine HCl (Bentyl) 20 mg TID PO 02/16/21 21:00 03/04/21 09:21 DC 03/03/21 21:07 Diphenoxylate HCl/ Atropine (Lomotil) 2 tab BID PO 02/16/21 21:00 03/04/21 09:21 DC 03/03/21 21:08 Divalproex Sodium (Depakote Er) 1,000 mg HS PO 02/16/21 21:00 03/07/21 20:15 DC 03/04/21 21:43 Duloxetine HCl (Cymbalta) 30 mg BID PO 02/16/21 21:00 03/07/21 20:15 DC 03/06/21 08:14 Fluticasone Propionate (Flonase) 2 spray DAILY NS 02/17/21 09:00 04/15/21 08:55 Furosemide (Lasix) 20 mg DAILY PO 02/17/21 09:00 03/04/21 09:21 DC 03/03/21 08:32 Gabapentin (Neurontin) 300 mg QID PO 02/16/21 17:00 04/15/21 19:30 Hydroxyurea (Hydrea) 1,000 mg DAILY PO 02/17/21 09:00 04/15/21 08:55 Levetiracetam (Keppra) 250 mg BID PO 02/16/21 21:00 03/02/21 14:48 DC 03/02/21 09:54 Lidocaine (Lidoderm) 1 patch DAILY TP 02/17/21 09:00 02/17/21 09:24 DC Al Hydroxide/Mg Hydroxide (Mylanta Plus Xs) 15 ml PRN AFTMEALHC PRN PO DYSPEPSIA 02/16/21 17:00 02/16/21 17:36 DC Mirabegron (Myrbetriq) 50 mg DAILY PO 02/17/21 09:00 03/04/21 09:21 DC 03/03/21 08:30 Nystatin (Nystop) 1 debra BID TP 02/16/21 21:00 04/15/21 19:32 Pantoprazole Sodium (Protonix) 40 mg DAILYAC PO 02/17/21 07:30 04/15/21 08:53 Potassium Chloride (Klor-Con) 40 meq DAILY PO 02/17/21 09:00 03/04/21 09:21 DC 03/03/21 08:32 Sulfasalazine (Azulfidine) 500 mg TID PO 02/16/21 21:00 03/07/21 20:15 DC 03/06/21 13:05 Trazodone HCl (Desyrel) 50 mg QHS PO 02/16/21 21:00 04/15/21 19:28 Non-Formulary Medication (Albuterol Sulfate (Albuterol Sulfate Conc Neb Soln)) 1 vial PRN Q4HRS PRN NEB SHORTNESS OF BREATH 02/16/21 17:00 02/16/21 17:49 DC Ascorbic Acid (Vitamin C) 1,000 mg DAILY PO 02/17/21 09:00 03/04/21 09:21 DC 03/03/21 08:34 Diltiazem HCl (Cardizem) 60 mg BID PO 02/16/21 21:00 04/15/21 19:30 Lactobacillus Rhamnosus (Culturelle) 1 cap DAILY PO 02/17/21 09:00 03/04/21 09:21 DC 03/03/21 08:32 Amylase/Lipase/ Protease (Zenpep 10,000) 1 cap TIDBFRMEAL PO 02/17/21 07:30 04/15/21 16:30 Non-Formulary Medication (Magnesium Hydroxide (Milk Of Magnesia)) 2,400 mg PRN DAILY PRN PO CONSTIPATION 02/16/21 17:00 02/16/21 17:37 DC Magnesium Oxide (Magnesium Oxide) 400 mg DAILY PO 02/17/21 09:00 03/04/21 09:21 DC 03/03/21 08:31 Non-Formulary Medication (Methyl Salicylate/ Menthol (Analgesic [place])) 1 debra PRN Q6HRS PRN TP MUSCLE PAIN 02/16/21 17:00 02/16/21 17:37 DC Non-Formulary Medication (Umeclidinium [place] (Incruse Ellipta)) 62.5 mcg DAILY IH 02/17/21 09:00 02/16/21 17:49 DC Non-Formulary Medication (Zinc Gluconate ) 50 mg DAILY PO 02/17/21 09:00 02/16/21 17:46 DC Albuterol/ Ipratropium (Duoneb) 3 ml RTQID NEB 02/16/21 20:00 02/17/21 19:52 DC Albuterol Sulfate (Ventolin) 2.5 mg PRN Q4HRS PRN NEB SHORTNESS OF BREATH 02/16/21 18:00 Influenza Virus Vaccine Quadrival (Flulaval Quad [id number] Syringe) 0.5 ml ONCE ONCE VAX IM 02/17/21 09:00 02/17/21 09:01 DC 02/17/21 09:21 Lidocaine (Lidoderm) 1 patch DAILY PRN TP pain 02/17/21 09:30 03/29/21 12:01 DC 03/28/21 08:37 Albuterol/ Ipratropium (Combivent Respimat 20-100 Mcg) 1 puff RTQID INH 02/17/21 20:00 04/15/21 19:30 Sertraline HCl (Zoloft) 25 mg DAILY PO 02/22/21 09:00 02/24/21 10:00 DC 02/24/21 09:59 Sertraline HCl (Zoloft) 50 mg DAILY PO 02/25/21 09:00 03/01/21 18:30 DC 03/01/21 10:07 Olanzapine (ZyPREXA ZYDIS) 5 mg 1X ONCE PO 02/26/21 12:03 02/26/21 12:09 DC 02/26/21 12:25 Clonazepam (KlonoPIN) 0.5 mg DAILY PO 02/28/21 09:00 03/02/21 07:00 DC 03/01/21 10:07 Bupropion HCl (Wellbutrin Xl) 150 mg DAILY PO 03/02/21 09:00 03/08/21 15:46 DC 03/08/21 08:41 Levetiracetam (Keppra) 250 mg DAILY PO 03/03/21 09:00 04/10/21 00:12 DC 04/09/21 08:53 Aripiprazole (Abilify) 5 mg DAILY PO 03/05/21 09:00 04/15/21 08:53 Ondansetron HCl (Zofran Odt) 4 mg PRN Q4HRS PRN PO NAUSEA/VOMITING 03/06/21 19:30 04/02/21 09:23 Potassium Chloride (Klor-Con) 30 meq BID PO 03/07/21 09:00 04/15/21 19:31 Divalproex Sodium (Depakote Er) 1,000 mg 1700 PO 03/08/21 17:00 03/12/21 00:01 DC 03/11/21 17:27 Duloxetine HCl (Cymbalta) 30 mg 0900,1700 PO 03/08/21 17:00 04/15/21 17:00 Sulfasalazine (Azulfidine) 500 mg 0900,1300,1700 PO 03/08/21 09:00 04/15/21 17:00 Bupropion HCl (Wellbutrin Xl) 300 mg DAILY PO 03/09/21 09:00 04/15/21 08:55 Potassium Chloride (Klor-Con) 40 meq 1630,1730 PO 03/08/21 16:30 03/08/21 18:04 DC 03/08/21 16:57 Potassium Chloride (Klor-Con) 40 meq 1700,1800 PO 03/08/21 17:15 03/08/21 18:04 DC 03/08/21 17:56 Divalproex Sodium (Depakote Sprinkles) 500 mg BID PO 03/12/21 09:00 04/15/21 19:31 Clotrimazole (Mycelex-7) 1 debra QHS VG 03/18/21 21:00 03/25/21 20:59 DC 03/24/21 20:20 Dicyclomine HCl (Bentyl) 20 mg TID PO 03/18/21 21:00 04/15/21 19:31 Diphenoxylate HCl/ Atropine (Lomotil) 2 tab BID PO 03/18/21 21:00 04/15/21 19:28 Lidocaine (Lidoderm) 1 patch PRN DAILY PRN TP pain 03/29/21 12:15 I have reviewed the current psychotropics carefully including drug interactions. Risk benefit ratio favors no change other than as noted in my dictated progress note. Diagnosis: Problems: (1) Impulse control disorder, unspecified (2) Mild cognitive impairment (3) Anxiety disorder, unspecified (4) Bipolar disorder, curr episode mixed, severe, with psychotic features (5) Bipolar 1 disorder, depressed (6) COPD (chronic obstructive pulmonary disease) NITHIN STEVENS MD Apr 15, 2021 21:00
[2021-04-16 05:43] VITALS: BP 122/70
[2021-04-16] MEDS: FLUTICASONE 50MCG/NASAL SPRAY 16GM BOTTLE. NS SCH (08:20)
[2021-04-16] MEDS: DIVALPROEX 125 MG CAP.SPRINK PO SCH ×2 (08:21→20:27)
[2021-04-16] MEDS: dilTIAZem HCL 30 MG TABLET PO SCH ×2 (08:22→20:28)
[2021-04-16] MEDS: ARIPiprazole 5 MG TABLET PO SCH (08:24)
[2021-04-16] MEDS: HYDROXYUREA 500 MG CAPSULE PO SCH (08:24)
[2021-04-16] MEDS: GABAPENTIN 300 MG CAPSULE. PO SCH ×4 (08:25→20:27)
[2021-04-16] MEDS: LIPASE/PROTEAS/AMYLAS 10/32/42 CAPSULE.DR. PO SCH ×3 (08:25→16:43)
[2021-04-16] MEDS: PANTOPRAZOLE 40 MG TABLET. PO SCH (08:25)
[2021-04-16] MEDS: sulfaSALAzine 500 MG TABLET PO SCH ×3 (08:26→16:44)
[2021-04-16] MEDS: DULoxetine HCL 30 MG CAPSULE.DR PO SCH ×2 (08:26→16:43)
[2021-04-16] MEDS: POTASSIUM CHLORIDE 10 MEQ TABLET.ER. PO SCH ×2 (08:26→20:27)
[2021-04-16] MEDS: DICYCLOMINE HCL 20 MG TABLET PO SCH ×3 (08:27→20:27)
[2021-04-16] MEDS: DIPHENOXYLATE/ATROPINE TABLET. PO SCH ×2 (08:27→20:28)
[2021-04-16] MEDS: buPROPion XL 300 MG TAB.ER.24H. PO SCH (08:28)
[2021-04-16] MEDS: IPRATROPIUM/ALBUTEROL 20/100mcg/INH INHALER. INH SCH ×4 (08:28→20:26)
[2021-04-16] MEDS: NYSTATIN TOPICAL POWDER 15GM BOTTLE. TP SCH ×2 (08:28→20:28)
--- NOTE | 2021-04-16 11:42 | NUR ---
Pt presents with neutral mood/affect. Pt is able to make needs known to staff. Pt is low-[place] on the unit today. Pt is engageable when approached by staff. Pt is noted to spend time in the day room with peers and staff. Pt is medication compliant. Pts vitals are WNL. Pt slept 7.75 hours last night. Pt had 50% of her breakfast. Will continue to monitor.
[2021-04-16] MEDS: FLUCONAZOLE 100 MG TABLET. PO SCH (12:57)
[2021-04-16 15:50] VITALS: BP 119/71
[2021-04-16] MEDS: traZODone 50 MG TABLET. PO SCH (20:27)
--- NOTE | 2021-04-16 20:58 | PDOC ---
Exam Note: Napoleon Note: Please also refer to the separate dictated note~for this date of service dictated separately.~Patient seen individually. Discussed the patient with Nursing staff reviewed the chart.~Reviewed interim history and current functioning. Reviewed vital signs,~Labs/ Radiology~and current medications noted below. Continue current treatment with the changes noted in the dictated addendum note Assessment: Vital Signs/I&O: Vital Signs Date Time Temp Pulse Resp B/P (MAP) Pulse Ox O2 Delivery O2 Flow Rate FiO2 04/16/21 20:28 91 119/71 04/16/21 15:50 98.1 20 93 04/16/21 05:43 2.0 04/15/21 15:06 Nasal Cannula I & O 04/15/21 04/15/21 04/16/21 14:59 22:59 06:59 Intake Total 840 ml 360 ml Balance 840 ml 360 ml Current Medications: Meds: Current Medications Medications (Trade) Dose Ordered Sig/Mya Route PRN Reason Start Time Stop Time Status Last Admin Dose Admin Acetaminophen (Tylenol) 650 mg PRN Q6HRS PRN PO MILD PAIN / TEMP > 100.3'F 02/16/21 15:45 03/04/21 09:21 DC 02/18/21 06:31 Multi-Ingredient Ointment (Analgesic [place]) 1 debra PRN QID PRN TP MUSCLE PAIN 02/16/21 15:45 03/04/21 09:21 DC Al Hydroxide/Mg Hydroxide (Mylanta Plus Xs) 15 ml PRN AFTMEALHC PRN PO DYSPEPSIA 02/16/21 15:45 03/04/21 22:05 Magnesium Hydroxide (Milk Of Magnesia) 2,400 mg PRN QHS PRN PO 1ST CHOICE CONSTIPATION 02/16/21 15:45 03/04/21 09:21 DC Acetaminophen (Tylenol) 1,000 mg Q6HRS PRN PO pain or fever 02/16/21 17:00 02/16/21 17:35 DC Acetaminophen (Tylenol) 500 mg Q4HRS PRN PO MILD PAIN 1-3 02/16/21 17:00 02/16/21 17:36 DC Bisacodyl (Dulcolax Tab) 5 mg PRN DAILY PRN PO 2ND CHOICE CONSTIPATION 02/16/21 17:00 03/04/21 09:21 DC Vitamin D (Vitamin D3) 50,000 unit WEEKLY PO 02/22/21 09:00 03/04/21 09:21 DC 02/22/21 07:16 Clonazepam (KlonoPIN) 0.5 mg BID PO 02/16/21 21:00 02/27/21 19:54 DC 02/27/21 10:11 Dicyclomine HCl (Bentyl) 20 mg TID PO 02/16/21 21:00 03/04/21 09:21 DC 03/03/21 21:07 Diphenoxylate HCl/ Atropine (Lomotil) 2 tab BID PO 02/16/21 21:00 03/04/21 09:21 DC 03/03/21 21:08 Divalproex Sodium (Depakote Er) 1,000 mg HS PO 02/16/21 21:00 03/07/21 20:15 DC 03/04/21 21:43 Duloxetine HCl (Cymbalta) 30 mg BID PO 02/16/21 21:00 03/07/21 20:15 DC 03/06/21 08:14 Fluticasone Propionate (Flonase) 2 spray DAILY NS 02/17/21 09:00 04/16/21 08:20 Furosemide (Lasix) 20 mg DAILY PO 02/17/21 09:00 03/04/21 09:21 DC 03/03/21 08:32 Gabapentin (Neurontin) 300 mg QID PO 02/16/21 17:00 04/16/21 20:27 Hydroxyurea (Hydrea) 1,000 mg DAILY PO 02/17/21 09:00 04/16/21 08:24 Levetiracetam (Keppra) 250 mg BID PO 02/16/21 21:00 03/02/21 14:48 DC 03/02/21 09:54 Lidocaine (Lidoderm) 1 patch DAILY TP 02/17/21 09:00 02/17/21 09:24 DC Al Hydroxide/Mg Hydroxide (Mylanta Plus Xs) 15 ml PRN AFTMEALHC PRN PO DYSPEPSIA 02/16/21 17:00 02/16/21 17:36 DC Mirabegron (Myrbetriq) 50 mg DAILY PO 02/17/21 09:00 03/04/21 09:21 DC 03/03/21 08:30 Nystatin (Nystop) 1 debra BID TP 02/16/21 21:00 04/16/21 20:28 Pantoprazole Sodium (Protonix) 40 mg DAILYAC PO 02/17/21 07:30 04/16/21 08:25 Potassium Chloride (Klor-Con) 40 meq DAILY PO 02/17/21 09:00 03/04/21 09:21 DC 03/03/21 08:32 Sulfasalazine (Azulfidine) 500 mg TID PO 02/16/21 21:00 03/07/21 20:15 DC 03/06/21 13:05 Trazodone HCl (Desyrel) 50 mg QHS PO 02/16/21 21:00 04/16/21 20:27 Non-Formulary Medication (Albuterol Sulfate (Albuterol Sulfate Conc Neb Soln)) 1 vial PRN Q4HRS PRN NEB SHORTNESS OF BREATH 02/16/21 17:00 02/16/21 17:49 DC Ascorbic Acid (Vitamin C) 1,000 mg DAILY PO 02/17/21 09:00 03/04/21 09:21 DC 03/03/21 08:34 Diltiazem HCl (Cardizem) 60 mg BID PO 02/16/21 21:00 04/16/21 20:28 Lactobacillus Rhamnosus (Culturelle) 1 cap DAILY PO 02/17/21 09:00 03/04/21 09:21 DC 03/03/21 08:32 Amylase/Lipase/ Protease (Zenpep 10,000) 1 cap TIDBFRMEAL PO 02/17/21 07:30 04/16/21 16:43 Non-Formulary Medication (Magnesium Hydroxide (Milk Of Magnesia)) 2,400 mg PRN DAILY PRN PO CONSTIPATION 02/16/21 17:00 02/16/21 17:37 DC Magnesium Oxide (Magnesium Oxide) 400 mg DAILY PO 02/17/21 09:00 03/04/21 09:21 DC 03/03/21 08:31 Non-Formulary Medication (Methyl Salicylate/ Menthol (Analgesic May)) 1 debra PRN Q6HRS PRN TP MUSCLE PAIN 02/16/21 17:00 02/16/21 17:37 DC Non-Formulary Medication (Umeclidinium [place] (Incruse Ellipta)) 62.5 mcg DAILY IH 02/17/21 09:00 02/16/21 17:49 DC Non-Formulary Medication (Zinc Gluconate ) 50 mg DAILY PO 02/17/21 09:00 02/16/21 17:46 DC Albuterol/ Ipratropium (Duoneb) 3 ml RTQID NEB 02/16/21 20:00 02/17/21 19:52 DC Albuterol Sulfate (Ventolin) 2.5 mg PRN Q4HRS PRN NEB SHORTNESS OF BREATH 02/16/21 18:00 Influenza Virus Vaccine Quadrival (Flulaval Quad [id number] Syringe) 0.5 ml ONCE ONCE VAX IM 02/17/21 09:00 02/17/21 09:01 DC 02/17/21 09:21 Lidocaine (Lidoderm) 1 patch DAILY PRN TP pain 02/17/21 09:30 03/29/21 12:01 DC 03/28/21 08:37 Albuterol/ Ipratropium (Combivent Respimat 20-100 Mcg) 1 puff RTQID INH 02/17/21 20:00 04/16/21 20:26 Sertraline HCl (Zoloft) 25 mg DAILY PO 02/22/21 09:00 02/24/21 10:00 DC 02/24/21 09:59 Sertraline HCl (Zoloft) 50 mg DAILY PO 02/25/21 09:00 03/01/21 18:30 DC 03/01/21 10:07 Olanzapine (ZyPREXA ZYDIS) 5 mg 1X ONCE PO 02/26/21 12:03 02/26/21 12:09 DC 02/26/21 12:25 Clonazepam (KlonoPIN) 0.5 mg DAILY PO 02/28/21 09:00 03/02/21 07:00 DC 03/01/21 10:07 Bupropion HCl (Wellbutrin Xl) 150 mg DAILY PO 03/02/21 09:00 03/08/21 15:46 DC 03/08/21 08:41 Levetiracetam (Keppra) 250 mg DAILY PO 03/03/21 09:00 04/10/21 00:12 DC 04/09/21 08:53 Aripiprazole (Abilify) 5 mg DAILY PO 03/05/21 09:00 04/16/21 08:24 Ondansetron HCl (Zofran Odt) 4 mg PRN Q4HRS PRN PO NAUSEA/VOMITING 03/06/21 19:30 04/02/21 09:23 Potassium Chloride (Klor-Con) 30 meq BID PO 03/07/21 09:00 04/16/21 20:27 Divalproex Sodium (Depakote Er) 1,000 mg 1700 PO 03/08/21 17:00 03/12/21 00:01 DC 03/11/21 17:27 Duloxetine HCl (Cymbalta) 30 mg 0900,1700 PO 03/08/21 17:00 04/16/21 16:43 Sulfasalazine (Azulfidine) 500 mg 0900,1300,1700 PO 03/08/21 09:00 04/16/21 16:44 Bupropion HCl (Wellbutrin Xl) 300 mg DAILY PO 03/09/21 09:00 04/16/21 08:28 Potassium Chloride (Klor-Con) 40 meq 1630,1730 PO 03/08/21 16:30 03/08/21 18:04 DC 03/08/21 16:57 Potassium Chloride (Klor-Con) 40 meq 1700,1800 PO 03/08/21 17:15 03/08/21 18:04 DC 03/08/21 17:56 Divalproex Sodium (Depakote Sprinkles) 500 mg BID PO 03/12/21 09:00 04/16/21 20:27 Clotrimazole (Mycelex-7) 1 debra QHS VG 03/18/21 21:00 03/25/21 20:59 DC 03/24/21 20:20 Dicyclomine HCl (Bentyl) 20 mg TID PO 03/18/21 21:00 04/16/21 20:27 Diphenoxylate HCl/ Atropine (Lomotil) 2 tab BID PO 03/18/21 21:00 04/16/21 20:28 Lidocaine (Lidoderm) 1 patch PRN DAILY PRN TP pain 03/29/21 12:15 Fluconazole (Diflucan) 100 mg Q72H PO 04/16/21 12:00 04/19/21 12:01 04/16/21 12:57 Current Medications Medications (Trade) Dose Ordered Sig/Mya Route PRN Reason Start Time Stop Time Status Last Admin Dose Admin Fluconazole (Diflucan) 100 mg Q72H PO 04/16/21 12:00 04/19/21 12:01 04/16/21 12:57 I have reviewed the current psychotropics carefully including drug interactions. Risk benefit ratio favors no change other than as noted in my dictated progress note. Diagnosis: Problems: (1) Impulse control disorder, unspecified (2) Mild cognitive impairment (3) Anxiety disorder, unspecified (4) Bipolar disorder, curr episode mixed, severe, with psychotic features (5) Bipolar 1 disorder, depressed NITHIN STEVENS MD Apr 16, 2021 20:58
--- NOTE | 2021-04-16 21:43 | NUR ---
Patient was in the day room watching football on tv with peers. She was cooperative with staff and compliant with medications. Patient had oxygen NC on appropriately and took medications whole, two at a time, on a spoon from nurse. Patient is oriented to name, place, year and is not delusional at this time.
[2021-04-17 06:05] VITALS: BP 108/69
--- NOTE | 2021-04-17 07:20 | PDOC ---
Exam Note: Napoleon Note: This note is a late entry for 04/15/2021 covers elements not covered in my initial note. Subjective: The patient was seen individually in the evening of 04/15/2021 with Dipesh BARR, discussed and reviewed the chart. The patient slept 8 hours previous night. Overall she has been doing about the same. She is not putting herself on the floor, keeping her oxygen in place, little more verbal and interactive. Denies suicidal ideation. In the morning she was singing in groups. Review of Systems: Impaired ambulation, in wheelchair. Shortness of breath on O2 supplements. No CV, , eye, ENT system symptoms on review. Mental Status Exam: The patient is oriented to herself and situation. Speech has some latency. Often response is monosyllabic. Abstraction fair. Computation impaired. Language function intact. Mood and affect still somewhat depressed and anxious but less so than before. Laboratory Data: Reviewed. Impression: Bipolar disorder, depressed. Anxiety disorder unspecified. Impulse control disorder unspecified. Plan: No change from initial note. Assessment: Vital Signs/I&O: Vital Signs Date Time Temp Pulse Resp B/P (MAP) Pulse Ox O2 Delivery O2 Flow Rate FiO2 04/17/21 06:05 97.7 82 20 108/69 (82) 95 Nasal Cannula 2.0 I & O 04/16/21 04/16/21 04/17/21 14:59 22:59 06:59 Intake Total 440 ml 600 ml Balance 440 ml 600 ml Current Medications: Meds: Current Medications Medications (Trade) Dose Ordered Sig/Mya Route PRN Reason Start Time Stop Time Status Last Admin Dose Admin Acetaminophen (Tylenol) 650 mg PRN Q6HRS PRN PO MILD PAIN / TEMP > 100.3'F 02/16/21 15:45 03/04/21 09:21 DC 02/18/21 06:31 Multi-Ingredient Ointment (Analgesic [place]) 1 debra PRN QID PRN TP MUSCLE PAIN 02/16/21 15:45 03/04/21 09:21 DC Al Hydroxide/Mg Hydroxide (Mylanta Plus Xs) 15 ml PRN AFTMEALHC PRN PO DYSPEPSIA 02/16/21 15:45 03/04/21 22:05 Magnesium Hydroxide (Milk Of Magnesia) 2,400 mg PRN QHS PRN PO 1ST CHOICE CONSTIPATION 02/16/21 15:45 03/04/21 09:21 DC Acetaminophen (Tylenol) 1,000 mg Q6HRS PRN PO pain or fever 02/16/21 17:00 02/16/21 17:35 DC Acetaminophen (Tylenol) 500 mg Q4HRS PRN PO MILD PAIN 1-3 02/16/21 17:00 02/16/21 17:36 DC Bisacodyl (Dulcolax Tab) 5 mg PRN DAILY PRN PO 2ND CHOICE CONSTIPATION 02/16/21 17:00 03/04/21 09:21 DC Vitamin D (Vitamin D3) 50,000 unit WEEKLY PO 02/22/21 09:00 03/04/21 09:21 DC 02/22/21 07:16 Clonazepam (KlonoPIN) 0.5 mg BID PO 02/16/21 21:00 02/27/21 19:54 DC 02/27/21 10:11 Dicyclomine HCl (Bentyl) 20 mg TID PO 02/16/21 21:00 03/04/21 09:21 DC 03/03/21 21:07 Diphenoxylate HCl/ Atropine (Lomotil) 2 tab BID PO 02/16/21 21:00 03/04/21 09:21 DC 03/03/21 21:08 Divalproex Sodium (Depakote Er) 1,000 mg HS PO 02/16/21 21:00 03/07/21 20:15 DC 03/04/21 21:43 Duloxetine HCl (Cymbalta) 30 mg BID PO 02/16/21 21:00 03/07/21 20:15 DC 03/06/21 08:14 Fluticasone Propionate (Flonase) 2 spray DAILY NS 02/17/21 09:00 04/16/21 08:20 Furosemide (Lasix) 20 mg DAILY PO 02/17/21 09:00 03/04/21 09:21 DC 03/03/21 08:32 Gabapentin (Neurontin) 300 mg QID PO 02/16/21 17:00 04/16/21 20:27 Hydroxyurea (Hydrea) 1,000 mg DAILY PO 02/17/21 09:00 04/16/21 08:24 Levetiracetam (Keppra) 250 mg BID PO 02/16/21 21:00 03/02/21 14:48 DC 03/02/21 09:54 Lidocaine (Lidoderm) 1 patch DAILY TP 02/17/21 09:00 02/17/21 09:24 DC Al Hydroxide/Mg Hydroxide (Mylanta Plus Xs) 15 ml PRN AFTMEALHC PRN PO DYSPEPSIA 02/16/21 17:00 02/16/21 17:36 DC Mirabegron (Myrbetriq) 50 mg DAILY PO 02/17/21 09:00 03/04/21 09:21 DC 03/03/21 08:30 Nystatin (Nystop) 1 debra BID TP 02/16/21 21:00 04/16/21 20:28 Pantoprazole Sodium (Protonix) 40 mg DAILYAC PO 02/17/21 07:30 04/16/21 08:25 Potassium Chloride (Klor-Con) 40 meq DAILY PO 02/17/21 09:00 03/04/21 09:21 DC 03/03/21 08:32 Sulfasalazine (Azulfidine) 500 mg TID PO 02/16/21 21:00 03/07/21 20:15 DC 03/06/21 13:05 Trazodone HCl (Desyrel) 50 mg QHS PO 02/16/21 21:00 04/16/21 20:27 Non-Formulary Medication (Albuterol Sulfate (Albuterol Sulfate Conc Neb Soln)) 1 vial PRN Q4HRS PRN NEB SHORTNESS OF BREATH 02/16/21 17:00 02/16/21 17:49 DC Ascorbic Acid (Vitamin C) 1,000 mg DAILY PO 02/17/21 09:00 03/04/21 09:21 DC 03/03/21 08:34 Diltiazem HCl (Cardizem) 60 mg BID PO 02/16/21 21:00 04/16/21 20:28 Lactobacillus Rhamnosus (Culturelle) 1 cap DAILY PO 02/17/21 09:00 03/04/21 09:21 DC 03/03/21 08:32 Amylase/Lipase/ Protease (Zenpep 10,000) 1 cap TIDBFRMEAL PO 02/17/21 07:30 04/16/21 16:43 Non-Formulary Medication (Magnesium Hydroxide (Milk Of Magnesia)) 2,400 mg PRN DAILY PRN PO CONSTIPATION 02/16/21 17:00 02/16/21 17:37 DC Magnesium Oxide (Magnesium Oxide) 400 mg DAILY PO 02/17/21 09:00 03/04/21 09:21 DC 03/03/21 08:31 Non-Formulary Medication (Methyl Salicylate/ Menthol (Analgesic [place])) 1 debra PRN Q6HRS PRN TP MUSCLE PAIN 02/16/21 17:00 02/16/21 17:37 DC Non-Formulary Medication (Umeclidinium [place] (Incruse Ellipta)) 62.5 mcg DAILY IH 02/17/21 09:00 02/16/21 17:49 DC Non-Formulary Medication (Zinc Gluconate ) 50 mg DAILY PO 02/17/21 09:00 02/16/21 17:46 DC Albuterol/ Ipratropium (Duoneb) 3 ml RTQID NEB 02/16/21 20:00 02/17/21 19:52 DC Albuterol Sulfate (Ventolin) 2.5 mg PRN Q4HRS PRN NEB SHORTNESS OF BREATH 02/16/21 18:00 Influenza Virus Vaccine Quadrival (Flulaval Quad [id number] Syringe) 0.5 ml ONCE ONCE VAX IM 02/17/21 09:00 02/17/21 09:01 DC 02/17/21 09:21 Lidocaine (Lidoderm) 1 patch DAILY PRN TP pain 02/17/21 09:30 03/29/21 12:01 DC 03/28/21 08:37 Albuterol/ Ipratropium (Combivent Respimat 20-100 Mcg) 1 puff RTQID INH 02/17/21 20:00 04/16/21 20:26 Sertraline HCl (Zoloft) 25 mg DAILY PO 02/22/21 09:00 02/24/21 10:00 DC 02/24/21 09:59 Sertraline HCl (Zoloft) 50 mg DAILY PO 02/25/21 09:00 03/01/21 18:30 DC 03/01/21 10:07 Olanzapine (ZyPREXA ZYDIS) 5 mg 1X ONCE PO 02/26/21 12:03 02/26/21 12:09 DC 02/26/21 12:25 Clonazepam (KlonoPIN) 0.5 mg DAILY PO 02/28/21 09:00 03/02/21 07:00 DC 03/01/21 10:07 Bupropion HCl (Wellbutrin Xl) 150 mg DAILY PO 03/02/21 09:00 03/08/21 15:46 DC 03/08/21 08:41 Levetiracetam (Keppra) 250 mg DAILY PO 03/03/21 09:00 04/10/21 00:12 DC 04/09/21 08:53 Aripiprazole (Abilify) 5 mg DAILY PO 03/05/21 09:00 04/16/21 08:24 Ondansetron HCl (Zofran Odt) 4 mg PRN Q4HRS PRN PO NAUSEA/VOMITING 03/06/21 19:30 04/02/21 09:23 Potassium Chloride (Klor-Con) 30 meq BID PO 03/07/21 09:00 04/16/21 20:27 Divalproex Sodium (Depakote Er) 1,000 mg 1700 PO 03/08/21 17:00 03/12/21 00:01 DC 03/11/21 17:27 Duloxetine HCl (Cymbalta) 30 mg 0900,1700 PO 03/08/21 17:00 04/16/21 16:43 Sulfasalazine (Azulfidine) 500 mg 0900,1300,1700 PO 03/08/21 09:00 04/16/21 16:44 Bupropion HCl (Wellbutrin Xl) 300 mg DAILY PO 03/09/21 09:00 04/16/21 08:28 Potassium Chloride (Klor-Con) 40 meq 1630,1730 PO 03/08/21 16:30 03/08/21 18:04 DC 03/08/21 16:57 Potassium Chloride (Klor-Con) 40 meq 1700,1800 PO 03/08/21 17:15 03/08/21 18:04 DC 03/08/21 17:56 Divalproex Sodium (Depakote Sprinkles) 500 mg BID PO 03/12/21 09:00 04/16/21 20:27 Clotrimazole (Mycelex-7) 1 debra QHS VG 03/18/21 21:00 03/25/21 20:59 DC 03/24/21 20:20 Dicyclomine HCl (Bentyl) 20 mg TID PO 03/18/21 21:00 04/16/21 20:27 Diphenoxylate HCl/ Atropine (Lomotil) 2 tab BID PO 03/18/21 21:00 04/16/21 20:28 Lidocaine (Lidoderm) 1 patch PRN DAILY PRN TP pain 03/29/21 12:15 Fluconazole (Diflucan) 100 mg Q72H PO 04/16/21 12:04/19/21 12:01 04/16/21 12:57 Current Medications Medications (Trade) Dose Ordered Sig/Mya Route PRN Reason Start Time Stop Time Status Last Admin Dose Admin Fluconazole (Diflucan) 100 mg Q72H PO 04/16/21 12:04/19/21 12:01 04/16/21 12:57 I have reviewed the current psychotropics carefully including drug interactions. Risk benefit ratio favors no change other than as noted in my dictated progress note. Diagnosis: Problems: (1) Impulse control disorder, unspecified (2) Mild cognitive impairment (3) Anxiety disorder, unspecified (4) Bipolar disorder, curr episode mixed, severe, with psychotic features (5) Bipolar 1 disorder, depressed NITHIN STEVENS MD Apr 17, 2021 07:20
--- NOTE | 2021-04-17 07:33 | PDOC ---
Exam Note: Napoleon Note: This note is a late entry for 04/16/2021 covers elements not covered in my initial note. Subjective: The patient was seen individually in the evening of 04/16/2021 with Zahira BARR, discussed and reviewed the chart. The patient slept 7-1/4 hours previous night. I met with the patient in the dayroom. Overall she is doing better, again not putting herself on the floor and keeping her oxygen in place. Review of Systems: Impaired ambulation, in wheelchair. Shortness of breath on O2 supplements. No CV, , eye, ENT system symptoms on review. Mental Status Exam: The patient is oriented to herself and situation. She was interactive with one of the other demented patient, sitting next to her. Speech coherent. Abstraction fair. Computation impaired. Language function intact. Mood and affect depressed but less than before. Laboratory Data: Reviewed. Impression: Bipolar disorder, depressed. Anxiety disorder unspecified. Impulse control disorder unspecified. Plan: No change from initial note. Assessment: Vital Signs/I&O: Vital Signs Date Time Temp Pulse Resp B/P (MAP) Pulse Ox O2 Delivery O2 Flow Rate FiO2 04/17/21 06:05 97.7 82 20 108/69 (82) 95 Nasal Cannula 2.0 I & O 04/16/21 04/16/21 04/17/21 15:00 23:00 07:00 Intake Total 440 ml 600 ml Balance 440 ml 600 ml Current Medications: Meds: Current Medications Medications (Trade) Dose Ordered Sig/Mya Route PRN Reason Start Time Stop Time Status Last Admin Dose Admin Acetaminophen (Tylenol) 650 mg PRN Q6HRS PRN PO MILD PAIN / TEMP > 100.3'F 02/16/21 15:45 03/04/21 09:21 DC 02/18/21 06:31 Multi-Ingredient Ointment (Analgesic [place]) 1 debra PRN QID PRN TP MUSCLE PAIN 02/16/21 15:45 03/04/21 09:21 DC Al Hydroxide/Mg Hydroxide (Mylanta Plus Xs) 15 ml PRN AFTMEALHC PRN PO DYSPEPSIA 02/16/21 15:45 03/04/21 22:05 Magnesium Hydroxide (Milk Of Magnesia) 2,400 mg PRN QHS PRN PO 1ST CHOICE CONSTIPATION 02/16/21 15:45 03/04/21 09:21 DC Acetaminophen (Tylenol) 1,000 mg Q6HRS PRN PO pain or fever 02/16/21 17:00 02/16/21 17:35 DC Acetaminophen (Tylenol) 500 mg Q4HRS PRN PO MILD PAIN 1-3 02/16/21 17:00 02/16/21 17:36 DC Bisacodyl (Dulcolax Tab) 5 mg PRN DAILY PRN PO 2ND CHOICE CONSTIPATION 02/16/21 17:00 03/04/21 09:21 DC Vitamin D (Vitamin D3) 50,000 unit WEEKLY PO 02/22/21 09:00 03/04/21 09:21 DC 02/22/21 07:16 Clonazepam (KlonoPIN) 0.5 mg BID PO 02/16/21 21:00 02/27/21 19:54 DC 02/27/21 10:11 Dicyclomine HCl (Bentyl) 20 mg TID PO 02/16/21 21:00 03/04/21 09:21 DC 03/03/21 21:07 Diphenoxylate HCl/ Atropine (Lomotil) 2 tab BID PO 02/16/21 21:00 03/04/21 09:21 DC 03/03/21 21:08 Divalproex Sodium (Depakote Er) 1,000 mg HS PO 02/16/21 21:00 03/07/21 20:15 DC 03/04/21 21:43 Duloxetine HCl (Cymbalta) 30 mg BID PO 02/16/21 21:00 03/07/21 20:15 DC 03/06/21 08:14 Fluticasone Propionate (Flonase) 2 spray DAILY NS 02/17/21 09:00 04/16/21 08:20 Furosemide (Lasix) 20 mg DAILY PO 02/17/21 09:00 03/04/21 09:21 DC 03/03/21 08:32 Gabapentin (Neurontin) 300 mg QID PO 02/16/21 17:00 04/16/21 20:27 Hydroxyurea (Hydrea) 1,000 mg DAILY PO 02/17/21 09:00 04/16/21 08:24 Levetiracetam (Keppra) 250 mg BID PO 02/16/21 21:00 03/02/21 14:48 DC 03/02/21 09:54 Lidocaine (Lidoderm) 1 patch DAILY TP 02/17/21 09:00 02/17/21 09:24 DC Al Hydroxide/Mg Hydroxide (Mylanta Plus Xs) 15 ml PRN AFTMEALHC PRN PO DYSPEPSIA 02/16/21 17:00 02/16/21 17:36 DC Mirabegron (Myrbetriq) 50 mg DAILY PO 02/17/21 09:00 03/04/21 09:21 DC 03/03/21 08:30 Nystatin (Nystop) 1 debra BID TP 02/16/21 21:00 04/16/21 20:28 Pantoprazole Sodium (Protonix) 40 mg DAILYAC PO 02/17/21 07:30 04/16/21 08:25 Potassium Chloride (Klor-Con) 40 meq DAILY PO 02/17/21 09:00 03/04/21 09:21 DC 03/03/21 08:32 Sulfasalazine (Azulfidine) 500 mg TID PO 02/16/21 21:00 03/07/21 20:15 DC 03/06/21 13:05 Trazodone HCl (Desyrel) 50 mg QHS PO 02/16/21 21:00 04/16/21 20:27 Non-Formulary Medication (Albuterol Sulfate (Albuterol Sulfate Conc Neb Soln)) 1 vial PRN Q4HRS PRN NEB SHORTNESS OF BREATH 02/16/21 17:00 02/16/21 17:49 DC Ascorbic Acid (Vitamin C) 1,000 mg DAILY PO 02/17/21 09:00 03/04/21 09:21 DC 03/03/21 08:34 Diltiazem HCl (Cardizem) 60 mg BID PO 02/16/21 21:00 04/16/21 20:28 Lactobacillus Rhamnosus (Culturelle) 1 cap DAILY PO 02/17/21 09:00 03/04/21 09:21 DC 03/03/21 08:32 Amylase/Lipase/ Protease (Zenpep 10,000) 1 cap TIDBFRMEAL PO 02/17/21 07:30 04/16/21 16:43 Non-Formulary Medication (Magnesium Hydroxide (Milk Of Magnesia)) 2,400 mg PRN DAILY PRN PO CONSTIPATION 10/7/21 17:00 02/16/21 17:37 DC Magnesium Oxide (Magnesium Oxide) 400 mg DAILY PO 02/17/21 09:00 03/04/21 09:21 DC 03/03/21 08:31 Non-Formulary Medication (Methyl Salicylate/ Menthol (Analgesic [place])) 1 debra PRN Q6HRS PRN TP MUSCLE PAIN 02/16/21 17:00 02/16/21 17:37 DC Non-Formulary Medication (Umeclidinium [place] (Incruse Ellipta)) 62.5 mcg DAILY IH 02/17/21 09:00 02/16/21 17:49 DC Non-Formulary Medication (Zinc Gluconate ) 50 mg DAILY PO 02/17/21 09:00 02/16/21 17:46 DC Albuterol/ Ipratropium (Duoneb) 3 ml RTQID NEB 02/16/21 20:00 02/17/21 19:52 DC Albuterol Sulfate (Ventolin) 2.5 mg PRN Q4HRS PRN NEB SHORTNESS OF BREATH 02/16/21 18:00 Influenza Virus Vaccine Quadrival (Flulaval Quad 2754-1368 Syringe) 0.5 ml ONCE ONCE VAX IM 02/17/21 09:00 02/17/21 09:01 DC 02/17/21 09:21 Lidocaine (Lidoderm) 1 patch DAILY PRN TP pain 02/17/21 09:30 03/29/21 12:01 DC 03/28/21 08:37 Albuterol/ Ipratropium (Combivent Respimat 20-100 Mcg) 1 puff RTQID INH 02/17/21 20:00 04/16/21 20:26 Sertraline HCl (Zoloft) 25 mg DAILY PO 02/22/21 09:00 02/24/21 10:00 DC 02/24/21 09:59 Sertraline HCl (Zoloft) 50 mg DAILY PO 02/25/21 09:00 03/01/21 18:30 DC 03/01/21 10:07 Olanzapine (ZyPREXA ZYDIS) 5 mg 1X ONCE PO 02/26/21 12:03 02/26/21 12:09 DC 02/26/21 12:25 Clonazepam (KlonoPIN) 0.5 mg DAILY PO 02/28/21 09:00 03/02/21 07:00 DC 03/01/21 10:07 Bupropion HCl (Wellbutrin Xl) 150 mg DAILY PO 03/02/21 09:00 03/08/21 15:46 DC 03/08/21 08:41 Levetiracetam (Keppra) 250 mg DAILY PO 03/03/21 09:00 04/10/21 00:12 DC 04/09/21 08:53 Aripiprazole (Abilify) 5 mg DAILY PO 03/05/21 09:00 04/16/21 08:24 Ondansetron HCl (Zofran Odt) 4 mg PRN Q4HRS PRN PO NAUSEA/VOMITING 03/06/21 19:30 04/02/21 09:23 Potassium Chloride (Klor-Con) 30 meq BID PO 03/07/21 09:00 04/16/21 20:27 Divalproex Sodium (Depakote Er) 1,000 mg 1700 PO 03/08/21 17:00 03/12/21 00:01 DC 03/11/21 17:27 Duloxetine HCl (Cymbalta) 30 mg 0900,1700 PO 03/08/21 17:00 04/16/21 16:43 Sulfasalazine (Azulfidine) 500 mg 0900,1300,1700 PO 03/08/21 09:00 04/16/21 16:44 Bupropion HCl (Wellbutrin Xl) 300 mg DAILY PO 03/09/21 09:00 04/16/21 08:28 Potassium Chloride (Klor-Con) 40 meq 1630,1730 PO 03/08/21 16:30 03/08/21 18:04 DC 03/08/21 16:57 Potassium Chloride (Klor-Con) 40 meq 1700,1800 PO 03/08/21 17:15 03/08/21 18:04 DC 03/08/21 17:56 Divalproex Sodium (Depakote Sprinkles) 500 mg BID PO 03/12/21 09:00 04/16/21 20:27 Clotrimazole (Mycelex-7) 1 debra QHS VG 03/18/21 21:00 03/25/21 20:59 DC 03/24/21 20:20 Dicyclomine HCl (Bentyl) 20 mg TID PO 03/18/21 21:00 04/16/21 20:27 Diphenoxylate HCl/ Atropine (Lomotil) 2 tab BID PO 03/18/21 21:00 04/16/21 20:28 Lidocaine (Lidoderm) 1 patch PRN DAILY PRN TP pain 03/29/21 12:15 Fluconazole (Diflucan) 100 mg Q72H PO 04/16/21 12:00 04/19/21 12:01 04/16/21 12:57 Current Medications Medications (Trade) Dose Ordered Sig/Mya Route PRN Reason Start Time Stop Time Status Last Admin Dose Admin Fluconazole (Diflucan) 100 mg Q72H PO 04/16/21 12:00 04/19/21 12:01 04/16/21 12:57 I have reviewed the current psychotropics carefully including drug interactions. Risk benefit ratio favors no change other than as noted in my dictated progress note. Diagnosis: Problems: (1) Impulse control disorder, unspecified (2) Mild cognitive impairment (3) Anxiety disorder, unspecified (4) Bipolar disorder, curr episode mixed, severe, with psychotic features (5) Bipolar 1 disorder, depressed NITHIN STEVENS MD Apr 17, 2021 07:33
[2021-04-17] MEDS: DIVALPROEX 125 MG CAP.SPRINK PO SCH ×2 (08:12→20:22)
[2021-04-17] MEDS: DIPHENOXYLATE/ATROPINE TABLET. PO SCH ×2 (08:13→20:22)
[2021-04-17] MEDS: GABAPENTIN 300 MG CAPSULE. PO SCH ×4 (08:13→20:21)
[2021-04-17] MEDS: ARIPiprazole 5 MG TABLET PO SCH (08:13)
[2021-04-17] MEDS: DICYCLOMINE HCL 20 MG TABLET PO SCH ×3 (08:13→20:21)
[2021-04-17] MEDS: DULoxetine HCL 30 MG CAPSULE.DR PO SCH ×2 (08:13→16:17)
[2021-04-17] MEDS: POTASSIUM CHLORIDE 10 MEQ TABLET.ER. PO SCH ×2 (08:13→20:21)
[2021-04-17] MEDS: LIPASE/PROTEAS/AMYLAS 10/32/42 CAPSULE.DR. PO SCH ×3 (08:14→16:17)
[2021-04-17] MEDS: sulfaSALAzine 500 MG TABLET PO SCH ×3 (08:14→16:20)
[2021-04-17] MEDS: dilTIAZem HCL 30 MG TABLET PO SCH ×2 (08:14→20:22)
[2021-04-17] MEDS: PANTOPRAZOLE 40 MG TABLET. PO SCH (08:14)
[2021-04-17] MEDS: FLUTICASONE 50MCG/NASAL SPRAY 16GM BOTTLE. NS SCH (08:15)
[2021-04-17] MEDS: NYSTATIN TOPICAL POWDER 15GM BOTTLE. TP SCH ×2 (08:15→20:21)
[2021-04-17] MEDS: buPROPion XL 300 MG TAB.ER.24H. PO SCH (08:15)
[2021-04-17] MEDS: HYDROXYUREA 500 MG CAPSULE PO SCH (08:15)
[2021-04-17] MEDS: IPRATROPIUM/ALBUTEROL 20/100mcg/INH INHALER. INH SCH ×4 (08:16→20:22)
[2021-04-17 15:16] VITALS: BP 123/61
--- NOTE | 2021-04-17 15:40 | NUR ---
Nurse Day Shift Note: Pt presents with a pleasant mood/affect. Pt is low-[place] on the unit. Pt is able to make needs known to staff. Pt is social with select peers and staff. Pt follows rules/routines on the unit. Pt is engageable when approached by staff. Pt is noted to spend time sitting in the hallway with peers and staff. Pt is medication compliant. Pt slept 7.75 hours last night. Pt continues to have a good appetite. Pts vitals are WNL. Will continue to monitor.
[2021-04-17] MEDS: traZODone 50 MG TABLET. PO SCH (20:21)
--- NOTE | 2021-04-17 20:29 | PDOC ---
Exam Note: Napoleon Note: Please also refer to the separate dictated note~for this date of service dictated separately.~Patient seen individually. Discussed the patient with Nursing staff reviewed the chart.~Reviewed interim history and current functioning. Reviewed vital signs,~Labs/ Radiology~and current medications noted below. Continue current treatment with the changes noted in the dictated addendum note Assessment: Vital Signs/I&O: Vital Signs Date Time Temp Pulse Resp B/P (MAP) Pulse Ox O2 Delivery O2 Flow Rate FiO2 04/17/21 20:22 94 123/61 04/17/21 15:16 97.9 18 93 2.0 04/17/21 06:05 Nasal Cannula I & O 0 04/16/21 04/16/21 04/17/21 15:00 23:00 07:00 Intake Total 440 ml 600 ml Balance 440 ml 600 ml Current Medications: Meds: Current Medications Medications (Trade) Dose Ordered Sig/Mya Route PRN Reason Start Time Stop Time Status Last Admin Dose Admin Acetaminophen (Tylenol) 650 mg PRN Q6HRS PRN PO MILD PAIN / TEMP > 100.3'F 02/16/21 15:45 03/04/21 09:21 DC 02/18/21 06:31 Multi-Ingredient Ointment (Analgesic [place]) 1 debra PRN QID PRN TP MUSCLE PAIN 02/16/21 15:45 03/04/21 09:21 DC Al Hydroxide/Mg Hydroxide (Mylanta Plus Xs) 15 ml PRN AFTMEALHC PRN PO DYSPEPSIA 02/16/21 15:45 03/04/21 22:05 Magnesium Hydroxide (Milk Of Magnesia) 2,400 mg PRN QHS PRN PO 1ST CHOICE CONSTIPATION 02/16/21 15:45 03/04/21 09:21 DC Acetaminophen (Tylenol) 1,000 mg Q6HRS PRN PO pain or fever 02/16/21 17:00 02/16/21 17:35 DC Acetaminophen (Tylenol) 500 mg Q4HRS PRN PO MILD PAIN 1-3 02/16/21 17:00 02/16/21 17:36 DC Bisacodyl (Dulcolax Tab) 5 mg PRN DAILY PRN PO 2ND CHOICE CONSTIPATION 02/16/21 17:00 03/04/21 09:21 DC Vitamin D (Vitamin D3) 50,000 unit WEEKLY PO 10/13/21 09:00 03/04/21 09:21 DC 02/22/21 07:16 Clonazepam (KlonoPIN) 0.5 mg BID PO 02/16/21 21:00 02/27/21 19:54 DC 02/27/21 10:11 Dicyclomine HCl (Bentyl) 20 mg TID PO 02/16/21 21:00 03/04/21 09:21 DC 03/03/21 21:07 Diphenoxylate HCl/ Atropine (Lomotil) 2 tab BID PO 02/16/21 21:00 03/04/21 09:21 DC 03/03/21 21:08 Divalproex Sodium (Depakote Er) 1,000 mg HS PO 02/16/21 21:00 03/07/21 20:15 DC 03/04/21 21:43 Duloxetine HCl (Cymbalta) 30 mg BID PO 02/16/21 21:00 03/07/21 20:15 DC 03/06/21 08:14 Fluticasone Propionate (Flonase) 2 spray DAILY NS 02/17/21 09:00 04/17/21 08:15 Furosemide (Lasix) 20 mg DAILY PO 02/17/21 09:00 03/04/21 09:21 DC 03/03/21 08:32 Gabapentin (Neurontin) 300 mg QID PO 02/16/21 17:00 04/17/21 20:21 Hydroxyurea (Hydrea) 1,000 mg DAILY PO 02/17/21 09:00 04/17/21 08:15 Levetiracetam (Keppra) 250 mg BID PO 02/16/21 21:00 03/02/21 14:48 DC 03/02/21 09:54 Lidocaine (Lidoderm) 1 patch DAILY TP 02/17/21 09:00 02/17/21 09:24 DC Al Hydroxide/Mg Hydroxide (Mylanta Plus Xs) 15 ml PRN AFTMEALHC PRN PO DYSPEPSIA 02/16/21 17:00 02/16/21 17:36 DC Mirabegron (Myrbetriq) 50 mg DAILY PO 02/17/21 09:00 03/04/21 09:21 DC 03/03/21 08:30 Nystatin (Nystop) 1 debra BID TP 02/16/21 21:00 04/17/21 20:21 Pantoprazole Sodium (Protonix) 40 mg DAILYAC PO 02/17/21 07:30 04/17/21 08:14 Potassium Chloride (Klor-Con) 40 meq DAILY PO 02/17/21 09:00 03/04/21 09:21 DC 03/03/21 08:32 Sulfasalazine (Azulfidine) 500 mg TID PO 02/16/21 21:00 03/07/21 20:15 DC 03/06/21 13:05 Trazodone HCl (Desyrel) 50 mg QHS PO 02/16/21 21:00 04/17/21 20:21 Non-Formulary Medication (Albuterol Sulfate (Albuterol Sulfate Conc Neb Soln)) 1 vial PRN Q4HRS PRN NEB SHORTNESS OF BREATH 02/16/21 17:00 02/16/21 17:49 DC Ascorbic Acid (Vitamin C) 1,000 mg DAILY PO 02/17/21 09:00 03/04/21 09:21 DC 03/03/21 08:34 Diltiazem HCl (Cardizem) 60 mg BID PO 02/16/21 21:00 04/17/21 20:22 Lactobacillus Rhamnosus (Culturelle) 1 cap DAILY PO 02/17/21 09:00 03/04/21 09:21 DC 03/03/21 08:32 Amylase/Lipase/ Protease (Zenpep 10,000) 1 cap TIDBFRMEAL PO 02/17/21 07:30 04/17/21 16:17 Non-Formulary Medication (Magnesium Hydroxide (Milk Of Magnesia)) 2,400 mg PRN DAILY PRN PO CONSTIPATION 02/16/21 17:00 02/16/21 17:37 DC Magnesium Oxide (Magnesium Oxide) 400 mg DAILY PO 02/17/21 09:00 03/04/21 09:21 DC 03/03/21 08:31 Non-Formulary Medication (Methyl Salicylate/ Menthol (Analgesic [place])) 1 debra PRN Q6HRS PRN TP MUSCLE PAIN 02/16/21 17:00 02/16/21 17:37 DC Non-Formulary Medication (Umeclidinium [place] (Incruse Ellipta)) 62.5 mcg DAILY IH 02/17/21 09:00 02/16/21 17:49 DC Non-Formulary Medication (Zinc Gluconate ) 50 mg DAILY PO 02/17/21 09:00 02/16/21 17:46 DC Albuterol/ Ipratropium (Duoneb) 3 ml RTQID NEB 02/16/21 20:00 02/17/21 19:52 DC Albuterol Sulfate (Ventolin) 2.5 mg PRN Q4HRS PRN NEB SHORTNESS OF BREATH 02/16/21 18:00 Influenza Virus Vaccine Quadrival (Flulaval Quad [id number] Syringe) 0.5 ml ONCE ONCE VAX IM 02/17/21 09:00 02/17/21 09:01 DC 02/17/21 09:21 Lidocaine (Lidoderm) 1 patch DAILY PRN TP pain 02/17/21 09:30 03/29/21 12:01 DC 03/28/21 08:37 Albuterol/ Ipratropium (Combivent Respimat 20-100 Mcg) 1 puff RTQID INH 02/17/21 20:00 04/17/21 20:22 Sertraline HCl (Zoloft) 25 mg DAILY PO 02/22/21 09:00 02/24/21 10:00 DC 02/24/21 09:59 Sertraline HCl (Zoloft) 50 mg DAILY PO 02/25/21 09:00 03/01/21 18:30 DC 03/01/21 10:07 Olanzapine (ZyPREXA ZYDIS) 5 mg 1X ONCE PO 02/26/21 12:03 02/26/21 12:09 DC 02/26/21 12:25 Clonazepam (KlonoPIN) 0.5 mg DAILY PO 02/28/21 09:00 03/02/21 07:00 DC 03/01/21 10:07 Bupropion HCl (Wellbutrin Xl) 150 mg DAILY PO 03/02/21 09:00 03/08/21 15:46 DC 03/08/21 08:41 Levetiracetam (Keppra) 250 mg DAILY PO 03/03/21 09:00 04/10/21 00:12 DC 04/09/21 08:53 Aripiprazole (Abilify) 5 mg DAILY PO 03/05/21 09:00 126/21 08:13 Ondansetron HCl (Zofran Odt) 4 mg PRN Q4HRS PRN PO NAUSEA/VOMITING 03/06/21 19:30 04/02/21 09:23 Potassium Chloride (Klor-Con) 30 meq BID PO 03/07/21 09:00 04/17/21 20:21 Divalproex Sodium (Depakote Er) 1,000 mg 1700 PO 03/08/21 17:00 03/12/21 00:01 DC 03/11/21 17:27 Duloxetine HCl (Cymbalta) 30 mg 0900,1700 PO 03/08/21 17:00 04/17/21 16:17 Sulfasalazine (Azulfidine) 500 mg 0900,1300,1700 PO 03/08/21 09:00 04/17/21 16:20 Bupropion HCl (Wellbutrin Xl) 300 mg DAILY PO 03/09/21 09:00 04/17/21 08:15 Potassium Chloride (Klor-Con) 40 meq 1630,1730 PO 03/08/21 16:30 03/08/21 18:04 DC 03/08/21 16:57 Potassium Chloride (Klor-Con) 40 meq 1700,1800 PO 03/08/21 17:15 03/08/21 18:04 DC 03/08/21 17:56 Divalproex Sodium (Depakote Sprinkles) 500 mg BID PO 03/12/21 09:00 04/17/21 20:22 Clotrimazole (Mycelex-7) 1 debra QHS VG 03/18/21 21:00 03/25/21 20:59 DC 03/24/21 20:20 Dicyclomine HCl (Bentyl) 20 mg TID PO 03/18/21 21:00 04/17/21 20:21 Diphenoxylate HCl/ Atropine (Lomotil) 2 tab BID PO 03/18/21 21:00 04/17/21 20:22 Lidocaine (Lidoderm) 1 patch PRN DAILY PRN TP pain 03/29/21 12:15 Fluconazole (Diflucan) 100 mg Q72H PO 04/16/21 12:00 04/19/21 12:01 04/16/21 12:57 I have reviewed the current psychotropics carefully including drug interactions. Risk benefit ratio favors no change other than as noted in my dictated progress note. Diagnosis: Problems: (1) Impulse control disorder, unspecified (2) Mild cognitive impairment (3) Anxiety disorder, unspecified (4) Bipolar disorder, curr episode mixed, severe, with psychotic features (5) Bipolar 1 disorder, depressed NITHIN STEVENS MD Apr 17, 2021 20:29
--- NOTE | 2021-04-17 22:16 | NUR ---
Patient has been snarky and delusional tonight. Day shift nurse passed on in report that patient put herself on the floor at around [phone]. At around [id number] patient put herself on the floor again and was observed crawling around. Staff assisted patient back into the chair and to bed. When nurse went in to assess patient, patient whispered "I've got to get out of here, I need a car, I was looking for the keys, someone hid them on me". Patient also stated that "the girl in the next rooms car is missing also". Nurse explained that patient is in the hospital. Patient was irritated that she had to take HS medications, stating that there are too many and she has already taken pills all day. Patient eventually compliant with medications taken whole,, two at a time, via spoon from nurse. Patient is asleep at this time, and appears to be resting comfortably.
[2021-04-18 05:45] VITALS: BP 115/75
[2021-04-18] MEDS: IPRATROPIUM/ALBUTEROL 20/100mcg/INH INHALER. INH SCH ×4 (08:09→20:44)
[2021-04-18] MEDS: GABAPENTIN 300 MG CAPSULE. PO SCH ×4 (08:10→20:45)
[2021-04-18] MEDS: LIPASE/PROTEAS/AMYLAS 10/32/42 CAPSULE.DR. PO SCH ×3 (08:10→16:54)
[2021-04-18] MEDS: ARIPiprazole 5 MG TABLET PO SCH (08:10)
[2021-04-18] MEDS: DULoxetine HCL 30 MG CAPSULE.DR PO SCH ×2 (08:10→16:54)
[2021-04-18] MEDS: FLUTICASONE 50MCG/NASAL SPRAY 16GM BOTTLE. NS SCH (08:10)
[2021-04-18] MEDS: DICYCLOMINE HCL 20 MG TABLET PO SCH ×3 (08:11→20:45)
[2021-04-18] MEDS: DIPHENOXYLATE/ATROPINE TABLET. PO SCH ×2 (08:11→20:45)
[2021-04-18] MEDS: sulfaSALAzine 500 MG TABLET PO SCH ×3 (08:11→17:23)
[2021-04-18] MEDS: DIVALPROEX 125 MG CAP.SPRINK PO SCH ×2 (08:12→20:44)
[2021-04-18] MEDS: dilTIAZem HCL 30 MG TABLET PO SCH ×2 (08:12→20:45)
[2021-04-18] MEDS: NYSTATIN TOPICAL POWDER 15GM BOTTLE. TP SCH ×2 (08:13→20:44)
[2021-04-18] MEDS: POTASSIUM CHLORIDE 10 MEQ TABLET.ER. PO SCH ×2 (08:13→20:44)
[2021-04-18] MEDS: PANTOPRAZOLE 40 MG TABLET. PO SCH (08:15)
[2021-04-18] MEDS: buPROPion XL 300 MG TAB.ER.24H. PO SCH (08:16)
[2021-04-18] MEDS: HYDROXYUREA 500 MG CAPSULE PO SCH (08:20)
[2021-04-18 15:19] VITALS: BP 118/79
--- NOTE | 2021-04-18 17:48 | NUR ---
Patient has been calm, disorganized cooperative, and mildly confused throughout this shift. She was social with peers and staff. Patient has complained that she takes too many pills at multiple times throughout the day. Will continue to monitor and report to oncoming shift.
[2021-04-18] MEDS: traZODone 50 MG TABLET. PO SCH (20:45)
--- NOTE | 2021-04-18 20:51 | PDOC ---
Exam Note: [place] Note: Please also refer to the separate dictated note~for this date of service dictated separately.~Patient seen individually. Discussed the patient with Nursing staff reviewed the chart.~Reviewed interim history and current functioning. Reviewed vital signs,~Labs/ Radiology~and current medications noted below. Continue current treatment with the changes noted in the dictated addendum note Assessment: Vital Signs/I&O: Vital Signs Date Time Temp Pulse Resp B/P (MAP) Pulse Ox O2 Delivery O2 Flow Rate FiO2 04/18/21 20:45 89 118/79 04/18/21 15:19 97.4 16 95 2.0 04/17/21 06:05 Nasal Cannula I & O 0 04/17/21 04/17/21 04/18/21 15:00 23:00 07:00 Intake Total 840 ml 600 ml Balance 840 ml 600 ml Current Medications: Meds: Current Medications Medications (Trade) Dose Ordered Sig/Mya Route PRN Reason Start Time Stop Time Status Last Admin Dose Admin Acetaminophen (Tylenol) 650 mg PRN Q6HRS PRN PO MILD PAIN / TEMP > 100.3'F 02/16/21 15:45 03/04/21 09:21 DC 02/18/21 06:31 Multi-Ingredient Ointment (Analgesic [place]) 1 debra PRN QID PRN TP MUSCLE PAIN 02/16/21 15:45 03/04/21 09:21 DC Al Hydroxide/Mg Hydroxide (Mylanta Plus Xs) 15 ml PRN AFTMEALHC PRN PO DYSPEPSIA 02/16/21 15:45 03/04/21 22:05 Magnesium Hydroxide (Milk Of Magnesia) 2,400 mg PRN QHS PRN PO 1ST CHOICE CONSTIPATION 02/16/21 15:45 03/04/21 09:21 DC Acetaminophen (Tylenol) 1,000 mg Q6HRS PRN PO pain or fever 02/16/21 17:00 02/16/21 17:35 DC Acetaminophen (Tylenol) 500 mg Q4HRS PRN PO MILD PAIN 1-3 02/16/21 17:00 02/16/21 17:36 DC Bisacodyl (Dulcolax Tab) 5 mg PRN DAILY PRN PO 2ND CHOICE CONSTIPATION 02/16/21 17:00 03/04/21 09:21 DC Vitamin D (Vitamin D3) 50,000 unit WEEKLY PO 02/22/21 09:00 03/04/21 09:21 DC 02/22/21 07:16 Clonazepam (KlonoPIN) 0.5 mg BID PO 02/16/21 21:00 02/27/21 19:54 DC 02/27/21 10:11 Dicyclomine HCl (Bentyl) 20 mg TID PO 02/16/21 21:00 03/04/21 09:21 DC 03/03/21 21:07 Diphenoxylate HCl/ Atropine (Lomotil) 2 tab BID PO 02/16/21 21:00 03/04/21 09:21 DC 03/03/21 21:08 Divalproex Sodium (Depakote Er) 1,000 mg HS PO 02/16/21 21:00 03/07/21 20:15 DC 03/04/21 21:43 Duloxetine HCl (Cymbalta) 30 mg BID PO 02/16/21 21:00 03/07/21 20:15 DC 03/06/21 08:14 Fluticasone Propionate (Flonase) 2 spray DAILY NS 02/17/21 09:00 04/18/21 08:10 Furosemide (Lasix) 20 mg DAILY PO 02/17/21 09:00 03/04/21 09:21 DC 03/03/21 08:32 Gabapentin (Neurontin) 300 mg QID PO 02/16/21 17:00 04/18/21 20:45 Hydroxyurea (Hydrea) 1,000 mg DAILY PO 02/17/21 09:00 04/18/21 08:20 Levetiracetam (Keppra) 250 mg BID PO 02/16/21 21:00 03/02/21 14:48 DC 03/02/21 09:54 Lidocaine (Lidoderm) 1 patch DAILY TP 02/17/21 09:00 02/17/21 09:24 DC Al Hydroxide/Mg Hydroxide (Mylanta Plus Xs) 15 ml PRN AFTMEALHC PRN PO DYSPEPSIA 02/16/21 17:00 02/16/21 17:36 DC Mirabegron (Myrbetriq) 50 mg DAILY PO 02/17/21 09:00 03/04/21 09:21 DC 03/03/21 08:30 Nystatin (Nystop) 1 debra BID TP 02/16/21 21:00 04/18/21 20:44 Pantoprazole Sodium (Protonix) 40 mg DAILYAC PO 02/17/21 07:30 04/18/21 08:15 Potassium Chloride (Klor-Con) 40 meq DAILY PO 02/17/21 09:00 03/04/21 09:21 DC 03/03/21 08:32 Sulfasalazine (Azulfidine) 500 mg TID PO 02/16/21 21:00 03/07/21 20:15 DC 03/06/21 13:05 Trazodone HCl (Desyrel) 50 mg QHS PO 02/16/21 21:00 04/18/21 20:45 Non-Formulary Medication (Albuterol Sulfate (Albuterol Sulfate Conc Neb Soln)) 1 vial PRN Q4HRS PRN NEB SHORTNESS OF BREATH 02/16/21 17:00 02/16/21 17:49 DC Ascorbic Acid (Vitamin C) 1,000 mg DAILY PO 02/17/21 09:00 03/04/21 09:21 DC 03/03/21 08:34 Diltiazem HCl (Cardizem) 60 mg BID PO 02/16/21 21:00 04/18/21 20:45 Lactobacillus Rhamnosus (Culturelle) 1 cap DAILY PO 02/17/21 09:00 03/04/21 09:21 DC 03/03/21 08:32 Amylase/Lipase/ Protease (Zenpep 10,000) 1 cap TIDBFRMEAL PO 02/17/21 07:30 04/18/21 16:54 Non-Formulary Medication (Magnesium Hydroxide (Milk Of Magnesia)) 2,400 mg PRN DAILY PRN PO CONSTIPATION 02/16/21 17:00 02/16/21 17:37 DC Magnesium Oxide (Magnesium Oxide) 400 mg DAILY PO 02/17/21 09:00 03/04/21 09:21 DC 03/03/21 08:31 Non-Formulary Medication (Methyl Salicylate/ Menthol (Analgesic [place])) 1 debra PRN Q6HRS PRN TP MUSCLE PAIN 02/16/21 17:00 02/16/21 17:37 DC Non-Formulary Medication (Umeclidinium [place] (Incruse Ellipta)) 62.5 mcg DAILY IH 02/17/21 09:00 02/16/21 17:49 DC Non-Formulary Medication (Zinc Gluconate ) 50 mg DAILY PO 02/17/21 09:00 02/16/21 17:46 DC Albuterol/ Ipratropium (Duoneb) 3 ml RTQID NEB 02/16/21 20:00 02/17/21 19:52 DC Albuterol Sulfate (Ventolin) 2.5 mg PRN Q4HRS PRN NEB SHORTNESS OF BREATH 02/16/21 18:00 Influenza Virus Vaccine Quadrival (Flulaval Quad [id number] Syringe) 0.5 ml ONCE ONCE VAX IM 02/17/21 09:00 02/17/21 09:01 DC 02/17/21 09:21 Lidocaine (Lidoderm) 1 patch DAILY PRN TP pain 02/17/21 09:30 03/29/21 12:01 DC 03/28/21 08:37 Albuterol/ Ipratropium (Combivent Respimat 20-100 Mcg) 1 puff RTQID INH 02/17/21 20:00 04/18/21 20:44 Sertraline HCl (Zoloft) 25 mg DAILY PO 02/22/21 09:00 02/24/21 10:00 DC 02/24/21 09:59 Sertraline HCl (Zoloft) 50 mg DAILY PO 02/25/21 09:00 03/01/21 18:30 DC 03/01/21 10:07 Olanzapine (ZyPREXA ZYDIS) 5 mg 1X ONCE PO 02/26/21 12:03 02/26/21 12:09 DC 02/26/21 12:25 Clonazepam (KlonoPIN) 0.5 mg DAILY PO 02/28/21 09:00 03/02/21 07:00 DC 03/01/21 10:07 Bupropion HCl (Wellbutrin Xl) 150 mg DAILY PO 03/02/21 09:00 03/08/21 15:46 DC 03/08/21 08:41 Levetiracetam (Keppra) 250 mg DAILY PO 03/03/21 09:00 04/10/21 00:12 DC 04/09/21 08:53 Aripiprazole (Abilify) 5 mg DAILY PO 03/05/21 09:00 04/18/21 08:10 Ondansetron HCl (Zofran Odt) 4 mg PRN Q4HRS PRN PO NAUSEA/VOMITING 03/06/21 19:30 04/02/21 09:23 Potassium Chloride (Klor-Con) 30 meq BID PO 03/07/21 09:00 04/18/21 20:44 Divalproex Sodium (Depakote Er) 1,000 mg 1700 PO 03/08/21 17:00 03/12/21 00:01 DC 03/11/21 17:27 Duloxetine HCl (Cymbalta) 30 mg 0900,1700 PO 03/08/21 17:00 04/18/21 16:54 Sulfasalazine (Azulfidine) 500 mg 0900,1300,1700 PO 03/08/21 09:00 04/18/21 17:23 Bupropion HCl (Wellbutrin Xl) 300 mg DAILY PO 03/09/21 09:00 04/18/21 08:16 Potassium Chloride (Klor-Con) 40 meq 1630,1730 PO 03/08/21 16:30 03/08/21 18:04 DC 03/08/21 16:57 Potassium Chloride (Klor-Con) 40 meq 1700,1800 PO 03/08/21 17:15 03/08/21 18:04 DC 03/08/21 17:56 Divalproex Sodium (Depakote Sprinkles) 500 mg BID PO 03/12/21 09:00 04/18/21 20:44 Clotrimazole (Mycelex-7) 1 debra QHS VG 03/18/21 21:00 03/25/21 20:59 DC 03/24/21 20:20 Dicyclomine HCl (Bentyl) 20 mg TID PO 03/18/21 21:00 04/18/21 20:45 Diphenoxylate HCl/ Atropine (Lomotil) 2 tab BID PO 03/18/21 21:00 04/18/21 20:45 Lidocaine (Lidoderm) 1 patch PRN DAILY PRN TP pain 03/29/21 12:15 Fluconazole (Diflucan) 100 mg Q72H PO 04/16/21 12:00 04/19/21 12:01 04/16/21 12:57 I have reviewed the current psychotropics carefully including drug interactions. Risk benefit ratio favors no change other than as noted in my dictated progress note. Diagnosis: Problems: (1) Impulse control disorder, unspecified (2) Mild cognitive impairment (3) Anxiety disorder, unspecified (4) Bipolar disorder, curr episode mixed, severe, with psychotic features (5) Bipolar 1 disorder, depressed NITHIN STEVENS MD Apr 18, 2021 20:51
--- NOTE | 2021-04-18 22:57 | NUR ---
Patient had been sitting in the hallway with peer socializing at the beginning of the shift. Patient stated that she is "on too many pills" and wants to talk to the doctor. Nurse discussed her medications with her. Patient then asked "how is Gretel?", referring to someone that lives at [facility] with her. Patient has been calm, kept her oxygen on and was cooperative.
[2021-04-19 06:06] VITALS: BP 122/77
[2021-04-19 06:26] LABS: BASO % 1 % (0-3); EOS # 0.1 x10^3/uL (0.0-0.7); EOS % 2 % (0-3); HEMATOCRIT 36.7 % (36.0-47.0); HEMOGLOBIN 12.4 g/dL (12.0-15.5); LYMPH % 17 % (24-48); MEAN CORPUSCULAR HEMOGLOBIN 39 pg (25-35); MEAN CORPUSCULAR HGB CONC 34 g/dL (31-37); MEAN CORPUSCULAR VOLUME 115 fL (79-100); MONO # 0.6 x10^3/uL (0.0-1.1); MONO % 11 % (0-9); NEUT # 3.9 x10^3uL (1.8-7.7); NEUT % 70 % (31-73); PLATELET COUNT 240 x10^3/uL (140-400); RED CELL DISTRIBUTION WIDTH 14.3 % (11.5-14.5); WHITE BLOOD COUNT 5.6 x10^3/uL (4.0-11.0)
[2021-04-19 06:39] LABS: ALBUMIN 2.7 g/dL (3.4-5.0); ALBUMIN/GLOBULIN RATIO 0.8 (1.0-1.7); CALCIUM 8.5 mg/dL (8.5-10.1); CREATININE 0.6 mg/dL (0.6-1.0); GFR 99.1; POTASSIUM 4.4 mmol/L (3.5-5.1); TOTAL BILIRUBIN 0.5 mg/dL (0.2-1.0); TOTAL PROTEIN 6.3 g/dL (6.4-8.2)
[2021-04-19 07:27] LABS: PLT ESTIMATE ADEQUATE (ADEQUATE)
[2021-04-19] MEDS: HYDROXYUREA 500 MG CAPSULE PO SCH (08:26)
[2021-04-19] MEDS: sulfaSALAzine 500 MG TABLET PO SCH ×3 (08:26→16:33)
[2021-04-19] MEDS: DULoxetine HCL 30 MG CAPSULE.DR PO SCH ×2 (08:27→16:33)
[2021-04-19] MEDS: LIPASE/PROTEAS/AMYLAS 10/32/42 CAPSULE.DR. PO SCH ×3 (08:27→16:33)
[2021-04-19] MEDS: GABAPENTIN 300 MG CAPSULE. PO SCH ×4 (08:27→20:11)
[2021-04-19] MEDS: DIVALPROEX 125 MG CAP.SPRINK PO SCH (08:27)
[2021-04-19] MEDS: PANTOPRAZOLE 40 MG TABLET. PO SCH (08:28)
[2021-04-19] MEDS: POTASSIUM CHLORIDE 10 MEQ TABLET.ER. PO SCH ×2 (08:28→20:11)
[2021-04-19] MEDS: DIPHENOXYLATE/ATROPINE TABLET. PO SCH ×2 (08:28→20:12)
[2021-04-19] MEDS: dilTIAZem HCL 30 MG TABLET PO SCH ×2 (08:29→20:14)
[2021-04-19] MEDS: DICYCLOMINE HCL 20 MG TABLET PO SCH ×3 (08:29→20:11)
[2021-04-19] MEDS: ARIPiprazole 5 MG TABLET PO SCH (08:29)
[2021-04-19] MEDS: IPRATROPIUM/ALBUTEROL 20/100mcg/INH INHALER. INH SCH ×4 (08:30→20:10)
[2021-04-19] MEDS: FLUTICASONE 50MCG/NASAL SPRAY 16GM BOTTLE. NS SCH (08:30)
[2021-04-19] MEDS: buPROPion XL 300 MG TAB.ER.24H. PO SCH (08:31)
[2021-04-19] MEDS: NYSTATIN TOPICAL POWDER 15GM BOTTLE. TP SCH ×2 (09:00→20:12)
--- NOTE | 2021-04-19 09:47 | PDOC ---
Exam Note: Napoleon Note: This note is a late entry for 04/17/2021 covers elements not covered in my initial note. Subjective: The patient was seen individually in the evening of 04/17/2021 with Zahira BARR, discussed and reviewed the chart. The patient slept 7-3/4 hours previous night. I met with her in the dayroom. She put herself on the floor at 3 p.m. No injuries noted. She has not been pulling off her oxygen. Review of Systems: Impaired ambulation, in wheelchair. Shortness of breath on O2 supplements. No CV, , eye, ENT system symptoms on review. Mental Status Exam: The patient is oriented to herself and situation. She was a little dismissive but generally doing better. Speech coherent. Abstraction fair. Computation impaired. Language function intact. Mood and affect improved. Laboratory Data: Reviewed. Impression: Bipolar disorder, depressed. Anxiety disorder unspecified. Impulse control disorder unspecified. Plan: No change from initial note. Assessment: Vital Signs/I&O: Vital Signs Date Time Temp Pulse Resp B/P (MAP) Pulse Ox O2 Delivery O2 Flow Rate FiO2 04/19/21 08:29 90 122/77 04/19/21 06:06 98.3 18 91 2.0 04/17/21 06:05 Nasal Cannula I & O 04/18/21 04/18/21 04/19/21 14:59 22:59 06:59 Intake Total 867 ml 720 ml Balance 867 ml 720 ml Labs: Laboratory Tests Test 04/19/21 06:13 White Blood Count 5.6 x10^3/uL (4.0-11.0) Red Blood Count 3.20 x10^6/uL (3.50-5.40) L Hemoglobin 12.4 g/dL (12.0-15.5) Hematocrit 36.7 % (36.0-47.0) Mean Corpuscular Volume 115 fL (79-100) H Mean Corpuscular Hemoglobin 39 pg (25-35) H Mean Corpuscular Hemoglobin Concent 34 g/dL (31-37) Red Cell Distribution Width 14.3 % (11.5-14.5) Platelet Count 240 x10^3/uL (140-400) Neutrophils (%) (Auto) 70 % (31-73) Lymphocytes (%) (Auto) 17 % (24-48) L Monocytes (%) (Auto) 11 % (0-9) H Eosinophils (%) (Auto) 2 % (0-3) Basophils (%) (Auto) 1 % (0-3) Neutrophils # (Auto) 3.9 x10^3uL (1.8-7.7) Lymphocytes # (Auto) 1.0 x10^3/uL (1.0-4.8) Monocytes # (Auto) 0.6 x10^3/uL (0.0-1.1) Eosinophils # (Auto) 0.1 x10^3/uL (0.0-0.7) Basophils # (Auto) 0.0 x10^3/uL (0.0-0.2) Platelet Estimate Adequate (ADEQUATE) Sodium Level 141 mmol/L (136-145) Potassium Level 4.4 mmol/L (3.5-5.1) Chloride Level 101 mmol/L (98-107) Carbon Dioxide Level 31 mmol/L (21-32) Anion Gap 9 (6-14) Blood Urea Nitrogen 16 mg/dL (7-20) Creatinine 0.6 mg/dL (0.6-1.0) Estimated GFR (Cockcroft-Gault) 99.1 BUN/Creatinine Ratio 27 (6-20) H Glucose Level 98 mg/dL (70-99) Calcium Level 8.5 mg/dL (8.5-10.1) Total Bilirubin 0.5 mg/dL (0.2-1.0) Aspartate Amino Transferase (AST) 30 U/L (15-37) Alanine Aminotransferase (ALT) 32 U/L (14-59) Alkaline Phosphatase 89 U/L (46-116) Total Protein 6.3 g/dL (6.4-8.2) L Albumin 2.7 g/dL (3.4-5.0) L Albumin/Globulin Ratio 0.8 (1.0-1.7) L Current Medications: Meds: Laboratory Tests Test 04/19/21 06:13 White Blood Count 5.6 x10^3/uL Red Blood Count 3.20 x10^6/uL Hemoglobin 12.4 g/dL Hematocrit 36.7 % Mean Corpuscular Volume 115 fL Mean Corpuscular Hemoglobin 39 pg Mean Corpuscular Hemoglobin Concent 34 g/dL Red Cell Distribution Width 14.3 % Platelet Count 240 x10^3/uL Neutrophils (%) (Auto) 70 % Lymphocytes (%) (Auto) 17 % Monocytes (%) (Auto) 11 % Eosinophils (%) (Auto) 2 % Basophils (%) (Auto) 1 % Neutrophils # (Auto) 3.9 x10^3uL Lymphocytes # (Auto) 1.0 x10^3/uL Monocytes # (Auto) 0.6 x10^3/uL Eosinophils # (Auto) 0.1 x10^3/uL Basophils # (Auto) 0.0 x10^3/uL Platelet Estimate Adequate Sodium Level 141 mmol/L Potassium Level 4.4 mmol/L Chloride Level 101 mmol/L Carbon Dioxide Level 31 mmol/L Anion Gap 9 Blood Urea Nitrogen 16 mg/dL Creatinine 0.6 mg/dL Estimated GFR (Cockcroft-Gault) 99.1 BUN/Creatinine Ratio 27 Glucose Level 98 mg/dL Calcium Level 8.5 mg/dL Total Bilirubin 0.5 mg/dL Aspartate Amino Transf (AST/SGOT) 30 U/L Alanine Aminotransferase (ALT/SGPT) 32 U/L Alkaline Phosphatase 89 U/L Total Protein 6.3 g/dL Albumin 2.7 g/dL Albumin/Globulin Ratio 0.8 Current Medications Medications (Trade) Dose Ordered Sig/Mya Route PRN Reason Start Time Stop Time Status Last Admin Dose Admin Acetaminophen (Tylenol) 650 mg PRN Q6HRS PRN PO MILD PAIN / TEMP > 100.3'F 02/16/21 15:45 03/04/21 09:21 DC 02/18/21 06:31 Multi-Ingredient Ointment (Analgesic [place]) 1 debar PRN QID PRN TP MUSCLE PAIN 02/16/21 15:45 03/04/21 09:21 DC Al Hydroxide/Mg Hydroxide (Mylanta Plus Xs) 15 ml PRN AFTMEALHC PRN PO DYSPEPSIA 02/16/21 15:45 03/04/21 22:05 Magnesium Hydroxide (Milk Of Magnesia) 2,400 mg PRN QHS PRN PO 1ST CHOICE CONSTIPATION 02/16/21 15:45 03/04/21 09:21 DC Acetaminophen (Tylenol) 1,000 mg Q6HRS PRN PO pain or fever 02/16/21 17:00 02/16/21 17:35 DC Acetaminophen (Tylenol) 500 mg Q4HRS PRN PO MILD PAIN 1-3 02/16/21 17:00 02/16/21 17:36 DC Bisacodyl (Dulcolax Tab) 5 mg PRN DAILY PRN PO 2ND CHOICE CONSTIPATION 02/16/21 17:00 03/04/21 09:21 DC Vitamin D (Vitamin D3) 50,000 unit WEEKLY PO 02/22/21 09:00 03/04/21 09:21 DC 02/22/21 07:16 Clonazepam (KlonoPIN) 0.5 mg BID PO 02/16/21 21:00 02/27/21 19:54 DC 02/27/21 10:11 Dicyclomine HCl (Bentyl) 20 mg TID PO 02/16/21 21:00 03/04/21 09:21 DC 03/03/21 21:07 Diphenoxylate HCl/ Atropine (Lomotil) 2 tab BID PO 02/16/21 21:00 03/04/21 09:21 DC 03/03/21 21:08 Divalproex Sodium (Depakote Er) 1,000 mg HS PO 02/16/21 21:00 03/07/21 20:15 DC 03/04/21 21:43 Duloxetine HCl (Cymbalta) 30 mg BID PO 02/16/21 21:00 03/07/21 20:15 DC 03/06/21 08:14 Fluticasone Propionate (Flonase) 2 spray DAILY NS 02/17/21 09:00 04/19/21 08:30 Furosemide (Lasix) 20 mg DAILY PO 02/17/21 09:00 03/04/21 09:21 DC 03/03/21 08:32 Gabapentin (Neurontin) 300 mg QID PO 02/16/21 17:00 04/19/21 08:27 Hydroxyurea (Hydrea) 1,000 mg DAILY PO 02/17/21 09:00 04/19/21 08:26 Levetiracetam (Keppra) 250 mg BID PO 02/16/21 21:00 03/02/21 14:48 DC 03/02/21 09:54 Lidocaine (Lidoderm) 1 patch DAILY TP 02/17/21 09:00 02/17/21 09:24 DC Al Hydroxide/Mg Hydroxide (Mylanta Plus Xs) 15 ml PRN AFTMEALHC PRN PO DYSPEPSIA 02/16/21 17:00 02/16/21 17:36 DC Mirabegron (Myrbetriq) 50 mg DAILY PO 02/17/21 09:00 03/04/21 09:21 DC 03/03/21 08:30 Nystatin (Nystop) 1 debra BID TP 02/16/21 21:00 04/18/21 20:44 Pantoprazole Sodium (Protonix) 40 mg DAILYAC PO 02/17/21 07:30 04/19/21 08:28 Potassium Chloride (Klor-Con) 40 meq DAILY PO 02/17/21 09:00 03/04/21 09:21 DC 03/03/21 08:32 Sulfasalazine (Azulfidine) 500 mg TID PO 02/16/21 21:00 03/07/21 20:15 DC 03/06/21 13:05 Trazodone HCl (Desyrel) 50 mg QHS PO 02/16/21 21:00 04/18/21 20:45 Non-Formulary Medication (Albuterol Sulfate (Albuterol Sulfate Conc Neb Soln)) 1 vial PRN Q4HRS PRN NEB SHORTNESS OF BREATH 02/16/21 17:00 02/16/21 17:49 DC Ascorbic Acid (Vitamin C) 1,000 mg DAILY PO 02/17/21 09:00 03/04/21 09:21 DC 03/03/21 08:34 Diltiazem HCl (Cardizem) 60 mg BID PO 02/16/21 21:00 04/19/21 08:29 Lactobacillus Rhamnosus (Culturelle) 1 cap DAILY PO 02/17/21 09:00 03/04/21 09:21 DC 03/03/21 08:32 Amylase/Lipase/ Protease (Zenpep 10,000) 1 cap TIDBFRMEAL PO 02/17/21 07:30 04/19/21 08:27 Non-Formulary Medication (Magnesium Hydroxide (Milk Of Magnesia)) 2,400 mg PRN DAILY PRN PO CONSTIPATION 02/16/21 17:00 02/16/21 17:37 DC Magnesium Oxide (Magnesium Oxide) 400 mg DAILY PO 02/17/21 09:00 03/04/21 09:21 DC 03/03/21 08:31 Non-Formulary Medication (Methyl Salicylate/ Menthol (Analgesic [place])) 1 debra PRN Q6HRS PRN TP MUSCLE PAIN 02/16/21 17:00 02/16/21 17:37 DC Non-Formulary Medication (Umeclidinium [place] (Incruse Ellipta)) 62.5 mcg DAILY IH 02/17/21 09:00 02/16/21 17:49 DC Non-Formulary Medication (Zinc Gluconate ) 50 mg DAILY PO 02/17/21 09:00 02/16/21 17:46 DC Albuterol/ Ipratropium (Duoneb) 3 ml RTQID NEB 02/16/21 20:00 02/17/21 19:52 DC Albuterol Sulfate (Ventolin) 2.5 mg PRN Q4HRS PRN NEB SHORTNESS OF BREATH 02/16/21 18:00 Influenza Virus Vaccine Quadrival (Flulaval Quad [id number] Syringe) 0.5 ml ONCE ONCE VAX IM 02/17/21 09:00 02/17/21 09:01 DC 02/17/21 09:21 Lidocaine (Lidoderm) 1 patch DAILY PRN TP pain 02/17/21 09:30 03/29/21 12:01 DC 03/28/21 08:37 Albuterol/ Ipratropium (Combivent Respimat 20-100 Mcg) 1 puff RTQID INH 02/17/21 20:00 04/19/21 08:30 Sertraline HCl (Zoloft) 25 mg DAILY PO 02/22/21 09:00 02/24/21 10:00 DC 02/24/21 09:59 Sertraline HCl (Zoloft) 50 mg DAILY PO 02/25/21 09:00 03/01/21 18:30 DC 03/01/21 10:07 Olanzapine (ZyPREXA ZYDIS) 5 mg 1X ONCE PO 02/26/21 12:03 02/26/21 12:09 DC 02/26/21 12:25 Clonazepam (KlonoPIN) 0.5 mg DAILY PO 02/28/21 09:00 03/02/21 07:00 DC 03/01/21 10:07 Bupropion HCl (Wellbutrin Xl) 150 mg DAILY PO 03/02/21 09:00 03/08/21 15:46 DC 03/08/21 08:41 Levetiracetam (Keppra) 250 mg DAILY PO 03/03/21 09:00 04/10/21 00:12 DC 04/09/21 08:53 Aripiprazole (Abilify) 5 mg DAILY PO 03/05/21 09:00 04/19/21 08:29 Ondansetron HCl (Zofran Odt) 4 mg PRN Q4HRS PRN PO NAUSEA/VOMITING 03/06/21 19:30 04/02/21 09:23 Potassium Chloride (Klor-Con) 30 meq BID PO 03/07/21 09:00 04/19/21 08:28 Divalproex Sodium (Depakote Er) 1,000 mg 1700 PO 03/08/21 17:00 03/12/21 00:01 DC 03/11/21 17:27 Duloxetine HCl (Cymbalta) 30 mg 0900,1700 PO 03/08/21 17:00 04/19/21 08:27 Sulfasalazine (Azulfidine) 500 mg 0900,1300,1700 PO 03/08/21 09:00 04/19/21 08:26 Bupropion HCl (Wellbutrin Xl) 300 mg DAILY PO 03/09/21 09:00 04/19/21 08:31 Potassium Chloride (Klor-Con) 40 meq 1630,1730 PO 03/08/21 16:30 03/08/21 18:04 DC 03/08/21 16:57 Potassium Chloride (Klor-Con) 40 meq 1700,1800 PO 03/08/21 17:15 03/08/21 18:04 DC 03/08/21 17:56 Divalproex Sodium (Depakote Sprinkles) 500 mg BID PO 03/12/21 09:00 04/19/21 08:27 Clotrimazole (Mycelex-7) 1 debra QHS VG 03/18/21 21:00 03/25/21 20:59 DC 03/24/21 20:20 Dicyclomine HCl (Bentyl) 20 mg TID PO 03/18/21 21:00 04/19/21 08:29 Diphenoxylate HCl/ Atropine (Lomotil) 2 tab BID PO 03/18/21 21:00 04/19/21 08:28 Lidocaine (Lidoderm) 1 patch PRN DAILY PRN TP pain 03/29/21 12:15 Fluconazole (Diflucan) 100 mg Q72H PO 04/16/21 12:00 04/19/21 12:01 04/16/21 12:57 I have reviewed the current psychotropics carefully including drug interactions. Risk benefit ratio favors no change other than as noted in my dictated progress note. Diagnosis: Problems: (1) Mild cognitive impairment (2) Impulse control disorder, unspecified (3) Anxiety disorder, unspecified (4) Bipolar disorder, curr episode mixed, severe, with psychotic features (5) Bipolar 1 disorder, depressed NITHIN STEVENS MD Apr 19, 2021 09:47
--- NOTE | 2021-04-19 10:03 | PDOC ---
Exam Note: Napoleon Note: This note is a late entry for 04/18/2021 covers elements not covered in my initial note. Subjective: The patient was seen individually in the evening of 04/18/2021 with Zahira BARR, discussed and reviewed the chart. The patient slept 7-1/2 hours previous night. She was seen in the hallway. She has been complaining to the nursing staff that she gets too many pills. Review of Systems: Impaired ambulation, in wheelchair. Shortness of breath on O2 supplements. No CV, , eye, ENT system symptoms on review. She complained of some pedal edema and we discussed keeping her legs raised as much as she can during the day now that she is not in a Broda chair. Mental Status Exam: The patient is oriented to herself and situation. She was quite pleasant, verbal, interactive as I met with her individually. Speech coh erent. Abstraction fair. Computation impaired. Language function intact. Mood and affect improved. Laboratory Data: Reviewed. Impression: Bipolar disorder, depressed. Anxiety disorder unspecified. Impulse control disorder unspecified. Plan: No change from initial note. Assessment: Vital Signs/I&O: Vital Signs Date Time Temp Pulse Resp B/P (MAP) Pulse Ox O2 Delivery O2 Flow Rate FiO2 04/19/21 08:29 90 122/77 04/19/21 06:06 98.3 18 91 2.0 04/17/21 06:05 Nasal Cannula I & O 04/18/21 04/18/21 04/19/21 14:59 22:59 06:59 Intake Total 867 ml 720 ml Balance 867 ml 720 ml Labs: Laboratory Tests Test 04/19/21 06:13 White Blood Count 5.6 x10^3/uL (4.0-11.0) Red Blood Count 3.20 x10^6/uL (3.50-5.40) L Hemoglobin 12.4 g/dL (12.0-15.5) Hematocrit 36.7 % (36.0-47.0) Mean Corpuscular Volume 115 fL (79-100) H Mean Corpuscular Hemoglobin 39 pg (25-35) H Mean Corpuscular Hemoglobin Concent 34 g/dL (31-37) Red Cell Distribution Width 14.3 % (11.5-14.5) Platelet Count 240 x10^3/uL (140-400) Neutrophils (%) (Auto) 70 % (31-73) Lymphocytes (%) (Auto) 17 % (24-48) L Monocytes (%) (Auto) 11 % (0-9) H Eosinophils (%) (Auto) 2 % (0-3) Basophils (%) (Auto) 1 % (0-3) Neutrophils # (Auto) 3.9 x10^3uL (1.8-7.7) Lymphocytes # (Auto) 1.0 x10^3/uL (1.0-4.8) Monocytes # (Auto) 0.6 x10^3/uL (0.0-1.1) Eosinophils # (Auto) 0.1 x10^3/uL (0.0-0.7) Basophils # (Auto) 0.0 x10^3/uL (0.0-0.2) Platelet Estimate Adequate (ADEQUATE) Sodium Level 141 mmol/L (136-145) Potassium Level 4.4 mmol/L (3.5-5.1) Chloride Level 101 mmol/L (98-107) Carbon Dioxide Level 31 mmol/L (21-32) Anion Gap 9 (6-14) Blood Urea Nitrogen 16 mg/dL (7-20) Creatinine 0.6 mg/dL (0.6-1.0) Estimated GFR (Cockcroft-Gault) 99.1 BUN/Creatinine Ratio 27 (6-20) H Glucose Level 98 mg/dL (70-99) Calcium Level 8.5 mg/dL (8.5-10.1) Total Bilirubin 0.5 mg/dL (0.2-1.0) Aspartate Amino Transferase (AST) 30 U/L (15-37) Alanine Aminotransferase (ALT) 32 U/L (14-59) Alkaline Phosphatase 89 U/L (46-116) Total Protein 6.3 g/dL (6.4-8.2) L Albumin 2.7 g/dL (3.4-5.0) L Albumin/Globulin Ratio 0.8 (1.0-1.7) L Current Medications: Meds: Laboratory Tests Test 04/19/21 06:13 White Blood Count 5.6 x10^3/uL Red Blood Count 3.20 x10^6/uL Hemoglobin 12.4 g/dL Hematocrit 36.7 % Mean Corpuscular Volume 115 fL Mean Corpuscular Hemoglobin 39 pg Mean Corpuscular Hemoglobin Concent 34 g/dL Red Cell Distribution Width 14.3 % Platelet Count 240 x10^3/uL Neutrophils (%) (Auto) 70 % Lymphocytes (%) (Auto) 17 % Monocytes (%) (Auto) 11 % Eosinophils (%) (Auto) 2 % Basophils (%) (Auto) 1 % Neutrophils # (Auto) 3.9 x10^3uL Lymphocytes # (Auto) 1.0 x10^3/uL Monocytes # (Auto) 0.6 x10^3/uL Eosinophils # (Auto) 0.1 x10^3/uL Basophils # (Auto) 0.0 x10^3/uL Platelet Estimate Adequate Sodium Level 141 mmol/L Potassium Level 4.4 mmol/L Chloride Level 101 mmol/L Carbon Dioxide Level 31 mmol/L Anion Gap 9 Blood Urea Nitrogen 16 mg/dL Creatinine 0.6 mg/dL Estimated GFR (Cockcroft-Gault) 99.1 BUN/Creatinine Ratio 27 Glucose Level 98 mg/dL Calcium Level 8.5 mg/dL Total Bilirubin 0.5 mg/dL Aspartate Amino Transf (AST/SGOT) 30 U/L Alanine Aminotransferase (ALT/SGPT) 32 U/L Alkaline Phosphatase 89 U/L Total Protein 6.3 g/dL Albumin 2.7 g/dL Albumin/Globulin Ratio 0.8 Current Medications Medications (Trade) Dose Ordered Sig/Mya Route PRN Reason Start Time Stop Time Status Last Admin Dose Admin Acetaminophen (Tylenol) 650 mg PRN Q6HRS PRN PO MILD PAIN / TEMP > 100.3'F 02/16/21 15:45 03/04/21 09:21 DC 02/18/21 06:31 Multi-Ingredient Ointment (Analgesic [place]) 1 debra PRN QID PRN TP MUSCLE PAIN 02/16/21 15:45 03/04/21 09:21 DC Al Hydroxide/Mg Hydroxide (Mylanta Plus Xs) 15 ml PRN AFTMEALHC PRN PO DYSPEPSIA 02/16/21 15:45 03/04/21 22:05 Magnesium Hydroxide (Milk Of Magnesia) 2,400 mg PRN QHS PRN PO 1ST CHOICE CONSTIPATION 02/16/21 15:45 03/04/21 09:21 DC Acetaminophen (Tylenol) 1,000 mg Q6HRS PRN PO pain or fever 02/16/21 17:00 02/16/21 17:35 DC Acetaminophen (Tylenol) 500 mg Q4HRS PRN PO MILD PAIN 1-3 02/16/21 17:00 02/16/21 17:36 DC Bisacodyl (Dulcolax Tab) 5 mg PRN DAILY PRN PO 2ND CHOICE CONSTIPATION 02/16/21 17:00 03/04/21 09:21 DC Vitamin D (Vitamin D3) 50,000 unit WEEKLY PO 02/22/21 09:00 03/04/21 09:21 DC 02/22/21 07:16 Clonazepam (KlonoPIN) 0.5 mg BID PO 02/16/21 21:00 02/27/21 19:54 DC 02/27/21 10:11 Dicyclomine HCl (Bentyl) 20 mg TID PO 02/16/21 21:00 03/04/21 09:21 DC 03/03/21 21:07 Diphenoxylate HCl/ Atropine (Lomotil) 2 tab BID PO 02/16/21 21:00 03/04/21 09:21 DC 03/03/21 21:08 Divalproex Sodium (Depakote Er) 1,000 mg HS PO 02/16/21 21:00 03/07/21 20:15 DC 03/04/21 21:43 Duloxetine HCl (Cymbalta) 30 mg BID PO 02/16/21 21:00 03/07/21 20:15 DC 03/06/21 08:14 Fluticasone Propionate (Flonase) 2 spray DAILY NS 02/17/21 09:00 04/19/21 08:30 Furosemide (Lasix) 20 mg DAILY PO 02/17/21 09:00 03/04/21 09:21 DC 03/03/21 08:32 Gabapentin (Neurontin) 300 mg QID PO 02/16/21 17:00 04/19/21 08:27 Hydroxyurea (Hydrea) 1,000 mg DAILY PO 02/17/21 09:00 04/19/21 08:26 Levetiracetam (Keppra) 250 mg BID PO 02/16/21 21:00 03/02/21 14:48 DC 03/02/21 09:54 Lidocaine (Lidoderm) 1 patch DAILY TP 02/17/21 09:00 02/17/21 09:24 DC Al Hydroxide/Mg Hydroxide (Mylanta Plus Xs) 15 ml PRN AFTMEALHC PRN PO DYSPEPSIA 02/16/21 17:00 02/16/21 17:36 DC Mirabegron (Myrbetriq) 50 mg DAILY PO 02/17/21 09:00 03/04/21 09:21 DC 03/03/21 08:30 Nystatin (Nystop) 1 debra BID TP 02/16/21 21:00 04/18/21 20:44 Pantoprazole Sodium (Protonix) 40 mg DAILYAC PO 02/17/21 07:30 04/19/21 08:28 Potassium Chloride (Klor-Con) 40 meq DAILY PO 02/17/21 09:00 03/04/21 09:21 DC 03/03/21 08:32 Sulfasalazine (Azulfidine) 500 mg TID PO 02/16/21 21:00 03/07/21 20:15 DC 03/06/21 13:05 Trazodone HCl (Desyrel) 50 mg QHS PO 02/16/21 21:00 04/18/21 20:45 Non-Formulary Medication (Albuterol Sulfate (Albuterol Sulfate Conc Neb Soln)) 1 vial PRN Q4HRS PRN NEB SHORTNESS OF BREATH 02/16/21 17:00 02/16/21 17:49 DC Ascorbic Acid (Vitamin C) 1,000 mg DAILY PO 02/17/21 09:00 03/04/21 09:21 DC 03/03/21 08:34 Diltiazem HCl (Cardizem) 60 mg BID PO 02/16/21 21:00 04/19/21 08:29 Lactobacillus Rhamnosus (Culturelle) 1 cap DAILY PO 02/17/21 09:00 03/04/21 09:21 DC 03/03/21 08:32 Amylase/Lipase/ Protease (Zenpep 10,000) 1 cap TIDBFRMEAL PO 02/17/21 07:30 04/19/21 08:27 Non-Formulary Medication (Magnesium Hydroxide (Milk Of Magnesia)) 2,400 mg PRN DAILY PRN PO CONSTIPATION 02/16/21 17:00 02/16/21 17:37 DC Magnesium Oxide (Magnesium Oxide) 400 mg DAILY PO 02/17/21 09:00 03/04/21 09:21 DC 03/03/21 08:31 Non-Formulary Medication (Methyl Salicylate/ Menthol (Analgesic [place])) 1 debra PRN Q6HRS PRN TP MUSCLE PAIN 02/16/21 17:00 02/16/21 17:37 DC Non-Formulary Medication (Umeclidinium [place] (Incruse Ellipta)) 62.5 mcg DAILY IH 02/17/21 09:00 02/16/21 17:49 DC Non-Formulary Medication (Zinc Gluconate ) 50 mg DAILY PO 02/17/21 09:00 02/16/21 17:46 DC Albuterol/ Ipratropium (Duoneb) 3 ml RTQID NEB 02/16/21 20:00 02/17/21 19:52 DC Albuterol Sulfate (Ventolin) 2.5 mg PRN Q4HRS PRN NEB SHORTNESS OF BREATH 02/16/21 18:00 Influenza Virus Vaccine Quadrival (Flulaval Quad [id number] Syringe) 0.5 ml ONCE ONCE VAX IM 02/17/21 09:00 02/17/21 09:01 DC 02/17/21 09:21 Lidocaine (Lidoderm) 1 patch DAILY PRN TP pain 02/17/21 09:30 03/29/21 12:01 DC 03/28/21 08:37 Albuterol/ Ipratropium (Combivent Respimat 20-100 Mcg) 1 puff RTQID INH 02/17/21 20:00 04/19/21 08:30 Sertraline HCl (Zoloft) 25 mg DAILY PO 02/22/21 09:00 02/24/21 10:00 DC 02/24/21 09:59 Sertraline HCl (Zoloft) 50 mg DAILY PO 02/25/21 09:00 03/01/21 18:30 DC 03/01/21 10:07 Olanzapine (ZyPREXA ZYDIS) 5 mg 1X ONCE PO 02/26/21 12:03 02/26/21 12:09 DC 02/26/21 12:25 Clonazepam (KlonoPIN) 0.5 mg DAILY PO 02/28/21 09:00 03/02/21 07:00 DC 03/01/21 10:07 Bupropion HCl (Wellbutrin Xl) 150 mg DAILY PO 03/02/21 09:00 03/08/21 15:46 DC 03/08/21 08:41 Levetiracetam (Keppra) 250 mg DAILY PO 03/03/21 09:00 04/10/21 00:12 DC 04/09/21 08:53 Aripiprazole (Abilify) 5 mg DAILY PO 03/05/21 09:00 04/19/21 08:29 Ondansetron HCl (Zofran Odt) 4 mg PRN Q4HRS PRN PO NAUSEA/VOMITING 03/06/21 19:30 04/02/21 09:23 Potassium Chloride (Klor-Con) 30 meq BID PO 03/07/21 09:00 04/19/21 08:28 Divalproex Sodium (Depakote Er) 1,000 mg 1700 PO 03/08/21 17:00 03/12/21 00:01 DC 03/11/21 17:27 Duloxetine HCl (Cymbalta) 30 mg 0900,1700 PO 03/08/21 17:00 04/19/21 08:27 Sulfasalazine (Azulfidine) 500 mg 0900,1300,1700 PO 03/08/21 09:00 04/19/21 08:26 Bupropion HCl (Wellbutrin Xl) 300 mg DAILY PO 03/09/21 09:00 04/19/21 08:31 Potassium Chloride (Klor-Con) 40 meq 1630,1730 PO 03/08/21 16:30 03/08/21 18:04 DC 03/08/21 16:57 Potassium Chloride (Klor-Con) 40 meq 1700,1800 PO 03/08/21 17:15 03/08/21 18:04 DC 03/08/21 17:56 Divalproex Sodium (Depakote Sprinkles) 500 mg BID PO 03/12/21 09:00 04/19/21 08:27 Clotrimazole (Mycelex-7) 1 debra QHS VG 03/18/21 21:00 03/25/21 20:59 DC 03/24/21 20:20 Dicyclomine HCl (Bentyl) 20 mg TID PO 03/18/21 21:00 04/19/21 08:29 Diphenoxylate HCl/ Atropine (Lomotil) 2 tab BID PO 03/18/21 21:00 04/19/21 08:28 Lidocaine (Lidoderm) 1 patch PRN DAILY PRN TP pain 03/29/21 12:15 Fluconazole (Diflucan) 100 mg Q72H PO 04/16/21 12:00 04/19/21 12:01 04/16/21 12:57 I have reviewed the current psychotropics carefully including drug interactions. Risk benefit ratio favors no change other than as noted in my dictated progress note. Diagnosis: Problems: (1) Impulse control disorder, unspecified (2) Mild cognitive impairment (3) Anxiety disorder, unspecified (4) Bipolar disorder, curr episode mixed, severe, with psychotic features (5) Bipolar 1 disorder, depressed NITHIN STEVENS MD Apr 19, 2021 10:03
[2021-04-19] MEDS: FLUCONAZOLE 100 MG TABLET. PO SCH (12:07)
--- NOTE | 2021-04-19 13:06 | NUR ---
Per staff, patient was resistive while they attempted to toilet her and she hit her hand on toilet paper roll cover in her bathroom causing a skin tear on her right hand. Wound was photographed, cleaned, and bandaged. Will continue to monitor and report to oncoming shift.
[2021-04-19 15:10] VITALS: BP 118/72
[2021-04-19] MEDS: traZODone 50 MG TABLET. PO SCH (20:11)
[2021-04-19] MEDS: DIVALPROEX ER 500 MG TAB.ER.24H PO SCH (20:12)
--- NOTE | 2021-04-19 20:19 | PDOC ---
Exam Note: Napoleon Note: Please also refer to the separate dictated note~for this date of service dictated separately.~Patient seen individually. Discussed the patient with Nursing staff reviewed the chart.~Reviewed interim history and current functioning. Reviewed vital signs,~Labs/ Radiology~and current medications noted below. Continue current treatment with the changes noted in the dictated addendum note Assessment: Vital Signs/I&O: Vital Signs Date Time Temp Pulse Resp B/P (MAP) Pulse Ox O2 Delivery O2 Flow Rate FiO2 04/19/21 20:14 95 118/72 04/19/21 15:10 98.0 18 92 04/19/21 06:06 2.0 04/17/21 06:05 Nasal Cannula I & O 04/18/21 04/18/21 04/19/21 15:00 23:00 07:00 Intake Total 867 ml 720 ml Balance 867 ml 720 ml Labs: Laboratory Tests Test 04/19/21 06:13 White Blood Count 5.6 x10^3/uL (4.0-11.0) Red Blood Count 3.20 x10^6/uL (3.50-5.40) L Hemoglobin 12.4 g/dL (12.0-15.5) Hematocrit 36.7 % (36.0-47.0) Mean Corpuscular Volume 115 fL (79-100) H Mean Corpuscular Hemoglobin 39 pg (25-35) H Mean Corpuscular Hemoglobin Concent 34 g/dL (31-37) Red Cell Distribution Width 14.3 % (11.5-14.5) Platelet Count 240 x10^3/uL (140-400) Neutrophils (%) (Auto) 70 % (31-73) Lymphocytes (%) (Auto) 17 % (24-48) L Monocytes (%) (Auto) 11 % (0-9) H Eosinophils (%) (Auto) 2 % (0-3) Basophils (%) (Auto) 1 % (0-3) Neutrophils # (Auto) 3.9 x10^3uL (1.8-7.7) Lymphocytes # (Auto) 1.0 x10^3/uL (1.0-4.8) Monocytes # (Auto) 0.6 x10^3/uL (0.0-1.1) Eosinophils # (Auto) 0.1 x10^3/uL (0.0-0.7) Basophils # (Auto) 0.0 x10^3/uL (0.0-0.2) Platelet Estimate Adequate (ADEQUATE) Sodium Level 141 mmol/L (136-145) Potassium Level 4.4 mmol/L (3.5-5.1) Chloride Level 101 mmol/L (98-107) Carbon Dioxide Level 31 mmol/L (21-32) Anion Gap 9 (6-14) Blood Urea Nitrogen 16 mg/dL (7-20) Creatinine 0.6 mg/dL (0.6-1.0) Estimated GFR (Cockcroft-Gault) 99.1 BUN/Creatinine Ratio 27 (6-20) H Glucose Level 98 mg/dL (70-99) Calcium Level 8.5 mg/dL (8.5-10.1) Total Bilirubin 0.5 mg/dL (0.2-1.0) Aspartate Amino Transferase (AST) 30 U/L (15-37) Alanine Aminotransferase (ALT) 32 U/L (14-59) Alkaline Phosphatase 89 U/L (46-116) Total Protein 6.3 g/dL (6.4-8.2) L Albumin 2.7 g/dL (3.4-5.0) L Albumin/Globulin Ratio 0.8 (1.0-1.7) L Current Medications: Meds: Laboratory Tests Test 04/19/21 06:13 White Blood Count 5.6 x10^3/uL Red Blood Count 3.20 x10^6/uL Hemoglobin 12.4 g/dL Hematocrit 36.7 % Mean Corpuscular Volume 115 fL Mean Corpuscular Hemoglobin 39 pg Mean Corpuscular Hemoglobin Concent 34 g/dL Red Cell Distribution Width 14.3 % Platelet Count 240 x10^3/uL Neutrophils (%) (Auto) 70 % Lymphocytes (%) (Auto) 17 % Monocytes (%) (Auto) 11 % Eosinophils (%) (Auto) 2 % Basophils (%) (Auto) 1 % Neutrophils # (Auto) 3.9 x10^3uL Lymphocytes # (Auto) 1.0 x10^3/uL Monocytes # (Auto) 0.6 x10^3/uL Eosinophils # (Auto) 0.1 x10^3/uL Basophils # (Auto) 0.0 x10^3/uL Platelet Estimate Adequate Sodium Level 141 mmol/L Potassium Level 4.4 mmol/L Chloride Level 101 mmol/L Carbon Dioxide Level 31 mmol/L Anion Gap 9 Blood Urea Nitrogen 16 mg/dL Creatinine 0.6 mg/dL Estimated GFR (Cockcroft-Gault) 99.1 BUN/Creatinine Ratio 27 Glucose Level 98 mg/dL Calcium Level 8.5 mg/dL Total Bilirubin 0.5 mg/dL Aspartate Amino Transf (AST/SGOT) 30 U/L Alanine Aminotransferase (ALT/SGPT) 32 U/L Alkaline Phosphatase 89 U/L Total Protein 6.3 g/dL Albumin 2.7 g/dL Albumin/Globulin Ratio 0.8 Current Medications Medications (Trade) Dose Ordered Sig/Mya Route PRN Reason Start Time Stop Time Status Last Admin Dose Admin Acetaminophen (Tylenol) 650 mg PRN Q6HRS PRN PO MILD PAIN / TEMP > 100.3'F 02/16/21 15:45 03/04/21 09:21 DC 02/18/21 06:31 Multi-Ingredient Ointment (Analgesic [place]) 1 debra PRN QID PRN TP MUSCLE PAIN 02/16/21 15:45 03/04/21 09:21 DC Al Hydroxide/Mg Hydroxide (Mylanta Plus Xs) 15 ml PRN AFTMEALHC PRN PO DYSPEPSIA 02/16/21 15:45 03/04/21 22:05 Magnesium Hydroxide (Milk Of Magnesia) 2,400 mg PRN QHS PRN PO 1ST CHOICE CONSTIPATION 02/16/21 15:45 03/04/21 09:21 DC Acetaminophen (Tylenol) 1,000 mg Q6HRS PRN PO pain or fever 02/16/21 17:00 02/16/21 17:35 DC Acetaminophen (Tylenol) 500 mg Q4HRS PRN PO MILD PAIN 1-3 02/16/21 17:00 02/16/21 17:36 DC Bisacodyl (Dulcolax Tab) 5 mg PRN DAILY PRN PO 2ND CHOICE CONSTIPATION 02/16/21 17:00 03/04/21 09:21 DC Vitamin D (Vitamin D3) 50,000 unit WEEKLY PO 02/22/21 09:00 03/04/21 09:21 DC 02/22/21 07:16 Clonazepam (KlonoPIN) 0.5 mg BID PO 02/16/21 21:00 02/27/21 19:54 DC 02/27/21 10:11 Dicyclomine HCl (Bentyl) 20 mg TID PO 02/16/21 21:00 03/04/21 09:21 DC 03/03/21 21:07 Diphenoxylate HCl/ Atropine (Lomotil) 2 tab BID PO 02/16/21 21:00 03/04/21 09:21 DC 03/03/21 21:08 Divalproex Sodium (Depakote Er) 1,000 mg HS PO 02/16/21 21:00 03/07/21 20:15 DC 03/04/21 21:43 Duloxetine HCl (Cymbalta) 30 mg BID PO 02/16/21 21:00 03/07/21 20:15 DC 03/06/21 08:14 Fluticasone Propionate (Flonase) 2 spray DAILY NS 02/17/21 09:00 04/19/21 08:30 Furosemide (Lasix) 20 mg DAILY PO 02/17/21 09:00 03/04/21 09:21 DC 03/03/21 08:32 Gabapentin (Neurontin) 300 mg QID PO 02/16/21 17:00 04/19/21 20:11 Hydroxyurea (Hydrea) 1,000 mg DAILY PO 02/17/21 09:00 04/19/21 08:26 Levetiracetam (Keppra) 250 mg BID PO 02/16/21 21:00 03/02/21 14:48 DC 03/02/21 09:54 Lidocaine (Lidoderm) 1 patch DAILY TP 02/17/21 09:00 02/17/21 09:24 DC Al Hydroxide/Mg Hydroxide (Mylanta Plus Xs) 15 ml PRN AFTMEALHC PRN PO DYSPEPSIA 02/16/21 17:00 02/16/21 17:36 DC Mirabegron (Myrbetriq) 50 mg DAILY PO 02/17/21 09:00 03/04/21 09:21 DC 03/03/21 08:30 Nystatin (Nystop) 1 debra BID TP 02/16/21 21:00 04/19/21 20:12 Pantoprazole Sodium (Protonix) 40 mg DAILYAC PO 02/17/21 07:30 04/19/21 08:28 Potassium Chloride (Klor-Con) 40 meq DAILY PO 02/17/21 09:00 03/04/21 09:21 DC 03/03/21 08:32 Sulfasalazine (Azulfidine) 500 mg TID PO 02/16/21 21:00 03/07/21 20:15 DC 03/06/21 13:05 Trazodone HCl (Desyrel) 50 mg QHS PO 02/16/21 21:00 04/19/21 20:11 Non-Formulary Medication (Albuterol Sulfate (Albuterol Sulfate Conc Neb Soln)) 1 vial PRN Q4HRS PRN NEB SHORTNESS OF BREATH 02/16/21 17:00 02/16/21 17:49 DC Ascorbic Acid (Vitamin C) 1,000 mg DAILY PO 02/17/21 09:00 03/04/21 09:21 DC 03/03/21 08:34 Diltiazem HCl (Cardizem) 60 mg BID PO 02/16/21 21:00 04/19/21 20:14 Lactobacillus Rhamnosus (Culturelle) 1 cap DAILY PO 02/17/21 09:00 03/04/21 09:21 DC 03/03/21 08:32 Amylase/Lipase/ Protease (Zenpep 10,000) 1 cap TIDBFRMEAL PO 02/17/21 07:30 04/19/21 16:33 Non-Formulary Medication (Magnesium Hydroxide (Milk Of Magnesia)) 2,400 mg PRN DAILY PRN PO CONSTIPATION 02/16/21 17:00 02/16/21 17:37 DC Magnesium Oxide (Magnesium Oxide) 400 mg DAILY PO 02/17/21 09:00 03/04/21 09:21 DC 03/03/21 08:31 Non-Formulary Medication (Methyl Salicylate/ Menthol (Analgesic [place])) 1 debra PRN Q6HRS PRN TP MUSCLE PAIN 02/16/21 17:00 02/16/21 17:37 DC Non-Formulary Medication (Umeclidinium [place] (Incruse Ellipta)) 62.5 mcg DAILY IH 02/17/21 09:00 02/16/21 17:49 DC Non-Formulary Medication (Zinc Gluconate ) 50 mg DAILY PO 02/17/21 09:00 02/16/21 17:46 DC Albuterol/ Ipratropium (Duoneb) 3 ml RTQID NEB 02/16/21 20:00 02/17/21 19:52 DC Albuterol Sulfate (Ventolin) 2.5 mg PRN Q4HRS PRN NEB SHORTNESS OF BREATH 02/16/21 18:00 Influenza Virus Vaccine Quadrival (Flulaval Quad [id number] Syringe) 0.5 ml ONCE ONCE VAX IM 02/17/21 09:00 02/17/21 09:01 DC 02/17/21 09:21 Lidocaine (Lidoderm) 1 patch DAILY PRN TP pain 02/17/21 09:30 03/29/21 12:01 DC 03/28/21 08:37 Albuterol/ Ipratropium (Combivent Respimat 20-100 Mcg) 1 puff RTQID INH 02/17/21 20:00 04/19/21 20:10 Sertraline HCl (Zoloft) 25 mg DAILY PO 02/22/21 09:00 02/24/21 10:00 DC 02/24/21 09:59 Sertraline HCl (Zoloft) 50 mg DAILY PO 02/25/21 09:00 03/01/21 18:30 DC 03/01/21 10:07 Olanzapine (ZyPREXA ZYDIS) 5 mg 1X ONCE PO 02/26/21 12:03 02/26/21 12:09 DC 02/26/21 12:25 Clonazepam (KlonoPIN) 0.5 mg DAILY PO 02/28/21 09:00 03/02/21 07:00 DC 03/01/21 10:07 Bupropion HCl (Wellbutrin Xl) 150 mg DAILY PO 03/02/21 09:00 03/08/21 15:46 DC 03/08/21 08:41 Levetiracetam (Keppra) 250 mg DAILY PO 03/03/21 09:00 04/10/21 00:12 DC 04/09/21 08:53 Aripiprazole (Abilify) 5 mg DAILY PO 03/05/21 09:00 04/19/21 08:29 Ondansetron HCl (Zofran Odt) 4 mg PRN Q4HRS PRN PO NAUSEA/VOMITING 03/06/21 19:30 11/21/21 09:23 Potassium Chloride (Klor-Con) 30 meq BID PO 03/07/21 09:00 04/19/21 20:11 Divalproex Sodium (Depakote Er) 1,000 mg 1700 PO 03/08/21 17:00 03/12/21 00:01 DC 03/11/21 17:27 Duloxetine HCl (Cymbalta) 30 mg 0900,1700 PO 03/08/21 17:00 04/19/21 16:33 Sulfasalazine (Azulfidine) 500 mg 0900,1300,1700 PO 03/08/21 09:00 04/19/21 16:33 Bupropion HCl (Wellbutrin Xl) 300 mg DAILY PO 03/09/21 09:00 04/19/21 08:31 Potassium Chloride (Klor-Con) 40 meq 1630,1730 PO 03/08/21 16:30 03/08/21 18:04 DC 03/08/21 16:57 Potassium Chloride (Klor-Con) 40 meq 1700,1800 PO 03/08/21 17:15 03/08/21 18:04 DC 03/08/21 17:56 Divalproex Sodium (Depakote Sprinkles) 500 mg BID PO 03/12/21 09:00 04/19/21 17:44 DC 04/19/21 08:27 Clotrimazole (Mycelex-7) 1 debra QHS VG 03/18/21 21:00 03/25/21 20:59 DC 03/24/21 20:20 Dicyclomine HCl (Bentyl) 20 mg TID PO 03/18/21 21:00 04/19/21 20:11 Diphenoxylate HCl/ Atropine (Lomotil) 2 tab BID PO 03/18/21 21:00 04/19/21 20:12 Lidocaine (Lidoderm) 1 patch PRN DAILY PRN TP pain 03/29/21 12:15 Fluconazole (Diflucan) 100 mg Q72H PO 04/16/21 12:00 04/19/21 12:01 DC 04/19/21 12:07 Divalproex Sodium (Depakote Er) 1,000 mg QHS PO 04/19/21 21:00 04/19/21 20:12 Current Medications Medications (Trade) Dose Ordered Sig/Mya Route PRN Reason Start Time Stop Time Status Last Admin Dose Admin Divalproex Sodium (Depakote Er) 1,000 mg QHS PO 04/19/21 21:00 04/19/21 20:12 I have reviewed the current psychotropics carefully including drug interactions. Risk benefit ratio favors no change other than as noted in my dictated progress note. Diagnosis: Problems: (1) Impulse control disorder, unspecified (2) Mild cognitive impairment (3) Anxiety disorder, unspecified (4) Bipolar disorder, curr episode mixed, severe, with psychotic features (5) Bipolar 1 disorder, depressed NITHIN STEVENS MD Apr 19, 2021 20:19
--- NOTE | 2021-04-19 23:05 | NUR ---
Nursing Note Pt somewhat attention seeking, states she doesn't have to use the bathroom but then complains shortly after that she does have to go and that we wouldn't take her. States her day wasn't the best but does not elaborate on details. Med compliant and cooperative otherwise.
[2021-04-20 06:35] VITALS: BP 115/66
--- NOTE | 2021-04-20 07:08 | PDOC ---
Exam Note: Napoleon Note: This note is a late entry for 04/19/2021 covers elements not covered in my initial note. Subjective: The patient was seen individually in the evening of 04/19/2021 with Hadley BARR, discussed and reviewed the chart. The patient slept 7-3/4 hours previous night. Overall she was agitated in the evening, otherwise, better, not pulling her oxygen off and has not put herself on the floor. She seems more disorganized. She resents having too many pills for her medications and we will change the Depakote Sprinkle 500 mg b.i.d. to Depakote ER 1000 mg h.s. Review of Systems: Impaired ambulation, in wheelchair. Shortness of breath on O2 supplements. No CV, , eye, ENT system symptoms on review. Mental Status Exam: The patient is oriented to herself and situation. Speech coherent. Abstraction fair. Computation impaired. Language function intact. Attention span short. Mood and affect withdrawn. No suicidal ideation. Laboratory Data: Reviewed. Impression: Bipolar disorder, depressed. Anxiety disorder unspecified. Impulse control disorder unspecified. Plan: No change from initial note. Assessment: Vital Signs/I&O: Vital Signs Date Time Temp Pulse Resp B/P (MAP) Pulse Ox O2 Delivery O2 Flow Rate FiO2 04/20/21 06:35 97.7 91 18 115/66 (82) 91 04/19/21 06:06 2.0 04/17/21 06:05 Nasal Cannula I & O 04/19/21 04/19/21 04/20/21 15:00 23:00 07:00 Intake Total 480 ml 600 ml Balance 480 ml 600 ml Current Medications: Meds: Current Medications Medications (Trade) Dose Ordered Sig/Mya Route PRN Reason Start Time Stop Time Status Last Admin Dose Admin Acetaminophen (Tylenol) 650 mg PRN Q6HRS PRN PO MILD PAIN / TEMP > 100.3'F 02/16/21 15:45 03/04/21 09:21 DC 02/18/21 06:31 Multi-Ingredient Ointment (Analgesic [place]) 1 debra PRN QID PRN TP MUSCLE PAIN 02/16/21 15:45 03/04/21 09:21 DC Al Hydroxide/Mg Hydroxide (Mylanta Plus Xs) 15 ml PRN AFTMEALHC PRN PO DYSPEPSIA 02/16/21 15:45 03/04/21 22:05 Magnesium Hydroxide (Milk Of Magnesia) 2,400 mg PRN QHS PRN PO 1ST CHOICE CONSTIPATION 02/16/21 15:45 03/04/21 09:21 DC Acetaminophen (Tylenol) 1,000 mg Q6HRS PRN PO pain or fever 02/16/21 17:00 02/16/21 17:35 DC Acetaminophen (Tylenol) 500 mg Q4HRS PRN PO MILD PAIN 1-3 02/16/21 17:00 02/16/21 17:36 DC Bisacodyl (Dulcolax Tab) 5 mg PRN DAILY PRN PO 2ND CHOICE CONSTIPATION 02/16/21 17:00 03/04/21 09:21 DC Vitamin D (Vitamin D3) 50,000 unit WEEKLY PO 02/22/21 09:00 03/04/21 09:21 DC 02/22/21 07:16 Clonazepam (KlonoPIN) 0.5 mg BID PO 02/16/21 21:00 02/27/21 19:54 DC 02/27/21 10:11 Dicyclomine HCl (Bentyl) 20 mg TID PO 02/16/21 21:00 03/04/21 09:21 DC 03/03/21 21:07 Diphenoxylate HCl/ Atropine (Lomotil) 2 tab BID PO 02/16/21 21:00 03/04/21 09:21 DC 03/03/21 21:08 Divalproex Sodium (Depakote Er) 1,000 mg HS PO 02/16/21 21:00 03/07/21 20:15 DC 03/04/21 21:43 Duloxetine HCl (Cymbalta) 30 mg BID PO 02/16/21 21:00 03/07/21 20:15 DC 03/06/21 08:14 Fluticasone Propionate (Flonase) 2 spray DAILY NS 02/17/21 09:00 04/19/21 08:30 Furosemide (Lasix) 20 mg DAILY PO 02/17/21 09:00 03/04/21 09:21 DC 03/03/21 08:32 Gabapentin (Neurontin) 300 mg QID PO 02/16/21 17:00 04/19/21 20:11 Hydroxyurea (Hydrea) 1,000 mg DAILY PO 02/17/21 09:00 04/19/21 08:26 Levetiracetam (Keppra) 250 mg BID PO 02/16/21 21:00 03/02/21 14:48 DC 03/02/21 09:54 Lidocaine (Lidoderm) 1 patch DAILY TP 02/17/21 09:00 02/17/21 09:24 DC Al Hydroxide/Mg Hydroxide (Mylanta Plus Xs) 15 ml PRN AFTMEALHC PRN PO DYSPEPSIA 02/16/21 17:00 02/16/21 17:36 DC Mirabegron (Myrbetriq) 50 mg DAILY PO 02/17/21 09:00 03/04/21 09:21 DC 03/03/21 08:30 Nystatin (Nystop) 1 debra BID TP 02/16/21 21:00 04/19/21 20:12 Pantoprazole Sodium (Protonix) 40 mg DAILYAC PO 02/17/21 07:30 04/19/21 08:28 Potassium Chloride (Klor-Con) 40 meq DAILY PO 02/17/21 09:00 03/04/21 09:21 DC 03/03/21 08:32 Sulfasalazine (Azulfidine) 500 mg TID PO 02/16/21 21:00 03/07/21 20:15 DC 03/06/21 13:05 Trazodone HCl (Desyrel) 50 mg QHS PO 02/16/21 21:00 04/19/21 20:11 Non-Formulary Medication (Albuterol Sulfate (Albuterol Sulfate Conc Neb Soln)) 1 vial PRN Q4HRS PRN NEB SHORTNESS OF BREATH 02/16/21 17:00 02/16/21 17:49 DC Ascorbic Acid (Vitamin C) 1,000 mg DAILY PO 02/17/21 09:00 03/04/21 09:21 DC 03/03/21 08:34 Diltiazem HCl (Cardizem) 60 mg BID PO 02/16/21 21:00 04/19/21 20:14 Lactobacillus Rhamnosus (Culturelle) 1 cap DAILY PO 02/17/21 09:00 03/04/21 09:21 DC 03/03/21 08:32 Amylase/Lipase/ Protease (Zenpep 10,000) 1 cap TIDBFRMEAL PO 02/17/21 07:30 04/19/21 16:33 Non-Formulary Medication (Magnesium Hydroxide (Milk Of Magnesia)) 2,400 mg PRN DAILY PRN PO CONSTIPATION 02/16/21 17:00 02/16/21 17:37 DC Magnesium Oxide (Magnesium Oxide) 400 mg DAILY PO 02/17/21 09:00 03/04/21 09:21 DC 03/03/21 08:31 Non-Formulary Medication (Methyl Salicylate/ Menthol (Analgesic [place])) 1 debra PRN Q6HRS PRN TP MUSCLE PAIN 02/16/21 17:00 02/16/21 17:37 DC Non-Formulary Medication (Umeclidinium [place] (Incruse Ellipta)) 62.5 mcg DAILY IH 02/17/21 09:00 02/16/21 17:49 DC Non-Formulary Medication (Zinc Gluconate ) 50 mg DAILY PO 02/17/21 09:00 02/16/21 17:46 DC Albuterol/ Ipratropium (Duoneb) 3 ml RTQID NEB 02/16/21 20:00 02/17/21 19:52 DC Albuterol Sulfate (Ventolin) 2.5 mg PRN Q4HRS PRN NEB SHORTNESS OF BREATH 02/16/21 18:00 Influenza Virus Vaccine Quadrival (Flulaval Quad [id number] Syringe) 0.5 ml ONCE ONCE VAX IM 02/17/21 09:00 02/17/21 09:01 DC 02/17/21 09:21 Lidocaine (Lidoderm) 1 patch DAILY PRN TP pain 02/17/21 09:30 03/29/21 12:01 DC 03/28/21 08:37 Albuterol/ Ipratropium (Combivent Respimat 20-100 Mcg) 1 puff RTQID INH 02/17/21 20:00 04/19/21 20:10 Sertraline HCl (Zoloft) 25 mg DAILY PO 02/22/21 09:00 02/24/21 10:00 DC 02/24/21 09:59 Sertraline HCl (Zoloft) 50 mg DAILY PO 02/25/21 09:00 03/01/21 18:30 DC 03/01/21 10:07 Olanzapine (ZyPREXA ZYDIS) 5 mg 1X ONCE PO 02/26/21 12:03 02/26/21 12:09 DC 02/26/21 12:25 Clonazepam (KlonoPIN) 0.5 mg DAILY PO 02/28/21 09:00 03/02/21 07:00 DC 03/01/21 10:07 Bupropion HCl (Wellbutrin Xl) 150 mg DAILY PO 03/02/21 09:00 03/08/21 15:46 DC 03/08/21 08:41 Levetiracetam (Keppra) 250 mg DAILY PO 03/03/21 09:00 04/10/21 00:12 DC 04/09/21 08:53 Aripiprazole (Abilify) 5 mg DAILY PO 03/05/21 09:00 04/19/21 08:29 Ondansetron HCl (Zofran Odt) 4 mg PRN Q4HRS PRN PO NAUSEA/VOMITING 03/06/21 19:30 04/02/21 09:23 Potassium Chloride (Klor-Con) 30 meq BID PO 03/07/21 09:00 04/19/21 20:11 Divalproex Sodium (Depakote Er) 1,000 mg 1700 PO 03/08/21 17:00 03/12/21 00:01 DC 03/11/21 17:27 Duloxetine HCl (Cymbalta) 30 mg 0900,1700 PO 03/08/21 17:00 04/19/21 16:33 Sulfasalazine (Azulfidine) 500 mg 0900,1300,1700 PO 03/08/21 09:00 04/19/21 16:33 Bupropion HCl (Wellbutrin Xl) 300 mg DAILY PO 03/09/21 09:00 04/19/21 08:31 Potassium Chloride (Klor-Con) 40 meq 1630,1730 PO 03/08/21 16:30 03/08/21 18:04 DC 03/08/21 16:57 Potassium Chloride (Klor-Con) 40 meq 1700,1800 PO 03/08/21 17:15 03/08/21 18:04 DC 03/08/21 17:56 Divalproex Sodium (Depakote Sprinkles) 500 mg BID PO 03/12/21 09:00 04/19/21 17:44 DC 04/19/21 08:27 Clotrimazole (Mycelex-7) 1 debra QHS VG 03/18/21 21:00 03/25/21 20:59 DC 03/24/21 20:20 Dicyclomine HCl (Bentyl) 20 mg TID PO 03/18/21 21:00 04/19/21 20:11 Diphenoxylate HCl/ Atropine (Lomotil) 2 tab BID PO 03/18/21 21:00 04/19/21 20:12 Lidocaine (Lidoderm) 1 patch PRN DAILY PRN TP pain 03/29/21 12:15 Fluconazole (Diflucan) 100 mg Q72H PO 04/16/21 12:00 04/19/21 12:01 DC 04/19/21 12:07 Divalproex Sodium (Depakote Er) 1,000 mg QHS PO 04/19/21 21:00 04/19/21 20:12 Current Medications Medications (Trade) Dose Ordered Sig/Mya Route PRN Reason Start Time Stop Time Status Last Admin Dose Admin Divalproex Sodium (Depakote Er) 1,000 mg QHS PO 04/19/21 21:00 04/19/21 20:12 I have reviewed the current psychotropics carefully including drug interactions. Risk benefit ratio favors no change other than as noted in my dictated progress note. Diagnosis: Problems: (1) Impulse control disorder, unspecified (2) Mild cognitive impairment (3) Anxiety disorder, unspecified (4) Bipolar disorder, curr episode mixed, severe, with psychotic features (5) Bipolar 1 disorder, depressed NITHIN STEVENS MD Apr 20, 2021 07:08
[2021-04-20] MEDS: DULoxetine HCL 30 MG CAPSULE.DR PO SCH ×2 (08:55→16:34)
[2021-04-20] MEDS: dilTIAZem HCL 30 MG TABLET PO SCH ×2 (08:56→19:54)
[2021-04-20] MEDS: ARIPiprazole 5 MG TABLET PO SCH (08:56)
[2021-04-20] MEDS: sulfaSALAzine 500 MG TABLET PO SCH ×3 (08:56→16:34)
[2021-04-20] MEDS: POTASSIUM CHLORIDE 10 MEQ TABLET.ER. PO SCH ×2 (08:56→19:55)
[2021-04-20] MEDS: GABAPENTIN 300 MG CAPSULE. PO SCH ×4 (08:56→19:55)
[2021-04-20] MEDS: PANTOPRAZOLE 40 MG TABLET. PO SCH (08:57)
[2021-04-20] MEDS: LIPASE/PROTEAS/AMYLAS 10/32/42 CAPSULE.DR. PO SCH ×3 (08:57→16:34)
[2021-04-20] MEDS: DICYCLOMINE HCL 20 MG TABLET PO SCH ×3 (08:57→19:56)
[2021-04-20] MEDS: IPRATROPIUM/ALBUTEROL 20/100mcg/INH INHALER. INH SCH ×4 (08:58→19:54)
[2021-04-20] MEDS: FLUTICASONE 50MCG/NASAL SPRAY 16GM BOTTLE. NS SCH (08:58)
[2021-04-20] MEDS: DIPHENOXYLATE/ATROPINE TABLET. PO SCH ×2 (08:58→19:55)
[2021-04-20] MEDS: buPROPion XL 300 MG TAB.ER.24H. PO SCH (09:00)
[2021-04-20] MEDS: HYDROXYUREA 500 MG CAPSULE PO SCH (09:02)
[2021-04-20] MEDS: NYSTATIN TOPICAL POWDER 15GM BOTTLE. TP SCH ×2 (09:10→19:56)
--- NOTE | 2021-04-20 11:03 | NUR ---
WEEKLY ACTIVITY THERAPY NOTE Date of Admission:02/16/21 Date of AT Assessment: 02/17 Precipitating behaviors that initiated intake and admission:putting self on floor, combative towards staff, refusing O2, threw medications, expresses she wants to & removes O2 Goal aimed: increase socialization and engagement Initial Goal: Pt will participate in at least three individual or group Activity Therapy sessions per week Goal changed 04/05:Pt will participate in at least three Activity Therapy sessions per week with moderate engagement Goal changed 04/13:Pt will participate in at least five Activity Therapy sessions per week Weekly progress towards goal: achieved, 5 Group participation level: 3 min, 1 full Weekly highlights: recalled [place] songs and traditions Saturday, watched [employer] movie Saturday Behaviors observed: easily distracted, direct prompting and redirection, stood up from wheelchair Saturday Plan: no change to goal Beneficial adaptations: direct prompting
--- NOTE | 2021-04-20 12:02 | NUR ---
Treatment team update: Pt is eating roughly 80% of meals and sleeping on average 7.5 hours per night. Pt is mostly cooperative and does appear to be significantly better. Pt does have periods of attention seeking and is irritable; however, staff view this as boredom for her as pt has been here for almost two months. Pt has participated in five groups this last week with moderate participation; she has been noted to be interactive and appropriate for group. SW is working with the legal department on getting pt a court appointed guardian in order to aid in a return to placement.
--- NOTE | 2021-04-20 12:06 | TX PLAN ---
Interdisciplinary Tx Plan Admission Information Feb 16, 2021 at 15:29 Legal Status (on Admission): Voluntary DPOA/Guardian Name: Patel Moise Contact Other Contact Name: Chasity Nazario Other Contact Verified Code Status: DNR Allergies: Coded Allergies: butorphanol (Verified Allergy, Unknown, 02/13/20) cefoxitin (Verified Allergy, Unknown, 02/13/20) codeine (Verified Allergy, Unknown, 02/13/20) gluten (Verified Allergy, Unknown, 02/13/20) lactose (Verified Allergy, Unknown, 02/13/20) Diagnoses Primary Diagnosis: Bipolar D/O mixed Reasons for Admission: Suicidal ideation, Poor impulse control Problem in Patient's Words: N/A Additional Admission Comments: According to the intake, pt is putting herself on the floor, combative towards staff, refusing oxygen/removes the tubing, throwing medications, expressed that she wants to . Problems Active Problems: putting self on floor removing oxygen Inactive Problems: medication compliant Pt Strengths/Limitations Ability for [place]: Poor Cognitive Functioning/Ability: Fair Communication Skills/Ability: Fair Financial Resources: Fair Insight/Judgement: Poor Intellectual Ability: Fair Physical Health: Poor Social Skills: Poor Stability in Family: Poor Stability in School/Work: Poor Verbal Skills: Fair Discharge Criteria Discharge Criteria: Able meet basic life need, Adequate arrangements @DC, Improved behavior, Improved mood/thought Preliminary Discharge Plan Preliminary DC Plan: Current Living Arrange. Special Precautions Fall Risk: Moderate Initial D/C Plan Pt will return to [facility] once stable Identified Discharge Needs: None noted Currently Utilized Resources Currently Utilized Resources/P: Primary Care Physician Telehealth for psychiatry Referrals Community Resources: None Identified Problems/Hx/Goals Objectives/Short-Term Goals Short Term Goals: Dec. Outbursts, Medication Stabilization, Monitor Med Effects, Promote Coping Skill Short Term Goals in Patient's: N/A Interventions/Frequency Staff Interventions/Frequency&: Psychiatrist to assess pt at least 3x per week for medication management. Social Work to assess pt least 2x per week to identify barriers to care and discharge planning goals. Nursing to assess pt medication effect, behavior modification and complete 15 minute checks daily. Encourage participation in group activities (if applicable) or 1:1 engagement based off Activity Dept goals. 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 Education: Pt graduated high school in 1969 Community Follow-up Primary Care Physician Telehealth Treatment Plan Explained Patient/Credit Representative had this treatment plan explained to him/her as indicated by the signature below and has been given the opportunity to ask questions and make suggestions: Date: Patient/Credit Representative Signature: Status Update Update Pt is eating roughly 80% of meals and sleeping on average 7.5 hours per night. Pt is mostly cooperative and does appear to be significantly better. Pt does have periods of attention seeking and is irritable; however, staff view this as boredom for her as pt has been here for almost two months. Pt has participated in five groups this last week with moderate participation; she has been noted to be interactive and appropriate for group. SW is working with the legal department on getting pt a court appointed guardian in order to aid in a return to placement. OK BAUTISTA Apr 20, 2021 12:06
[2021-04-20 15:34] VITALS: BP 127/78
--- NOTE | 2021-04-20 18:30 | NUR ---
Patient has been calm, disorganized, cooperative, and mildly confused throughout this shift. She was social with peers and occasionally irritable. Patient has increased confusion, asking me to give her and a peer a ride to [employer] so she could buy [employer]. Will continue to monitor and report to oncoming shift.
[2021-04-20] MEDS: traZODone 50 MG TABLET. PO SCH (19:55)
[2021-04-20] MEDS: DIVALPROEX ER 500 MG TAB.ER.24H PO SCH (19:55)
--- NOTE | 2021-04-20 21:16 | PDOC ---
Exam Note: [place] Note: Please also refer to the separate dictated note~for this date of service dictated separately.~Patient seen individually. Discussed the patient with Nursing staff reviewed the chart.~Reviewed interim history and current functioning. Reviewed vital signs,~Labs/ Radiology~and current medications noted below. Continue current treatment with the changes noted in the dictated addendum note Assessment: Vital Signs/I&O: Vital Signs Date Time Temp Pulse Resp B/P (MAP) Pulse Ox O2 Delivery O2 Flow Rate FiO2 04/20/21 19:54 99 127/78 04/20/21 15:34 99.3 18 92 2.0 04/17/21 06:05 Nasal Cannula I & O 0 04/19/21 04/19/21 04/20/21 15:00 23:00 07:00 Intake Total 480 ml 600 ml Balance 480 ml 600 ml Labs: Laboratory Tests Test 04/20/21 07:00 SARS-CoV-2 (PCR) Not detected (NOT DETECTD) Current Medications: Meds: Laboratory Tests Test 04/20/21 07:00 Coronavirus (COVID-19)(PCR) Not detected Current Medications Medications (Trade) Dose Ordered Sig/Mya Route PRN Reason Start Time Stop Time Status Last Admin Dose Admin Acetaminophen (Tylenol) 650 mg PRN Q6HRS PRN PO MILD PAIN / TEMP > 100.3'F 02/16/21 15:45 03/04/21 09:21 DC 02/18/21 06:31 Multi-Ingredient Ointment (Analgesic [place]) 1 debra PRN QID PRN TP MUSCLE PAIN 02/16/21 15:45 03/04/21 09:21 DC Al Hydroxide/Mg Hydroxide (Mylanta Plus Xs) 15 ml PRN AFTMEALHC PRN PO DYSPEPSIA 02/16/21 15:45 03/04/21 22:05 Magnesium Hydroxide (Milk Of Magnesia) 2,400 mg PRN QHS PRN PO 1ST CHOICE CONSTIPATION 02/16/21 15:45 03/04/21 09:21 DC Acetaminophen (Tylenol) 1,000 mg Q6HRS PRN PO pain or fever 02/16/21 17:00 02/16/21 17:35 DC Acetaminophen (Tylenol) 500 mg Q4HRS PRN PO MILD PAIN 1-3 02/16/21 17:00 02/16/21 17:36 DC Bisacodyl (Dulcolax Tab) 5 mg PRN DAILY PRN PO 2ND CHOICE CONSTIPATION 02/16/21 17:00 03/04/21 09:21 DC Vitamin D (Vitamin D3) 50,000 unit WEEKLY PO 02/22/21 09:00 03/04/21 09:21 DC 02/22/21 07:16 Clonazepam (KlonoPIN) 0.5 mg BID PO 02/16/21 21:00 02/27/21 19:54 DC 02/27/21 10:11 Dicyclomine HCl (Bentyl) 20 mg TID PO 02/16/21 21:00 03/04/21 09:21 DC 03/03/21 21:07 Diphenoxylate HCl/ Atropine (Lomotil) 2 tab BID PO 02/16/21 21:00 03/04/21 09:21 DC 03/03/21 21:08 Divalproex Sodium (Depakote Er) 1,000 mg HS PO 02/16/21 21:00 03/07/21 20:15 DC 03/04/21 21:43 Duloxetine HCl (Cymbalta) 30 mg BID PO 02/16/21 21:00 03/07/21 20:15 DC 03/06/21 08:14 Fluticasone Propionate (Flonase) 2 spray DAILY NS 02/17/21 09:00 04/20/21 08:58 Furosemide (Lasix) 20 mg DAILY PO 02/17/21 09:00 03/04/21 09:21 DC 03/03/21 08:32 Gabapentin (Neurontin) 300 mg QID PO 02/16/21 17:00 04/20/21 19:55 Hydroxyurea (Hydrea) 1,000 mg DAILY PO 02/17/21 09:00 04/20/21 09:02 Levetiracetam (Keppra) 250 mg BID PO 02/16/21 21:00 03/02/21 14:48 DC 03/02/21 09:54 Lidocaine (Lidoderm) 1 patch DAILY TP 02/17/21 09:00 02/17/21 09:24 DC Al Hydroxide/Mg Hydroxide (Mylanta Plus Xs) 15 ml PRN AFTMEALHC PRN PO DYSPEPSIA 02/16/21 17:00 02/16/21 17:36 DC Mirabegron (Myrbetriq) 50 mg DAILY PO 02/17/21 09:00 03/04/21 09:21 DC 03/03/21 08:30 Nystatin (Nystop) 1 debra BID TP 02/16/21 21:00 04/20/21 19:56 Pantoprazole Sodium (Protonix) 40 mg DAILYAC PO 02/17/21 07:30 04/20/21 08:57 Potassium Chloride (Klor-Con) 40 meq DAILY PO 02/17/21 09:00 03/04/21 09:21 DC 03/03/21 08:32 Sulfasalazine (Azulfidine) 500 mg TID PO 02/16/21 21:00 03/07/21 20:15 DC 03/06/21 13:05 Trazodone HCl (Desyrel) 50 mg QHS PO 02/16/21 21:00 04/20/21 19:55 Non-Formulary Medication (Albuterol Sulfate (Albuterol Sulfate Conc Neb Soln)) 1 vial PRN Q4HRS PRN NEB SHORTNESS OF BREATH 02/16/21 17:00 02/16/21 17:49 DC Ascorbic Acid (Vitamin C) 1,000 mg DAILY PO 02/17/21 09:00 03/04/21 09:21 DC 03/03/21 08:34 Diltiazem HCl (Cardizem) 60 mg BID PO 02/16/21 21:00 04/20/21 19:54 Lactobacillus Rhamnosus (Culturelle) 1 cap DAILY PO 02/17/21 09:00 03/04/21 09:21 DC 03/03/21 08:32 Amylase/Lipase/ Protease (Zenpep 10,000) 1 cap TIDBFRMEAL PO 02/17/21 07:30 04/20/21 16:34 Non-Formulary Medication (Magnesium Hydroxide (Milk Of Magnesia)) 2,400 mg PRN DAILY PRN PO CONSTIPATION 02/16/21 17:00 02/16/21 17:37 DC Magnesium Oxide (Magnesium Oxide) 400 mg DAILY PO 02/17/21 09:00 03/04/21 09:21 DC 03/03/21 08:31 Non-Formulary Medication (Methyl Salicylate/ Menthol (Analgesic [place])) 1 debra PRN Q6HRS PRN TP MUSCLE PAIN 02/16/21 17:00 02/16/21 17:37 DC Non-Formulary Medication (Umeclidinium [place] (Incruse Ellipta)) 62.5 mcg DAILY IH 02/17/21 09:00 02/16/21 17:49 DC Non-Formulary Medication (Zinc Gluconate ) 50 mg DAILY PO 02/17/21 09:00 02/16/21 17:46 DC Albuterol/ Ipratropium (Duoneb) 3 ml RTQID NEB 02/16/21 20:00 02/17/21 19:52 DC Albuterol Sulfate (Ventolin) 2.5 mg PRN Q4HRS PRN NEB SHORTNESS OF BREATH 02/16/21 18:00 Influenza Virus Vaccine Quadrival (Flulaval Quad [id number] Syringe) 0.5 ml ONCE ONCE VAX IM 02/17/21 09:00 02/17/21 09:01 DC 02/17/21 09:21 Lidocaine (Lidoderm) 1 patch DAILY PRN TP pain 02/17/21 09:30 03/29/21 12:01 DC 03/28/21 08:37 Albuterol/ Ipratropium (Combivent Respimat 20-100 Mcg) 1 puff RTQID INH 02/17/21 20:00 04/20/21 19:54 Sertraline HCl (Zoloft) 25 mg DAILY PO 02/22/21 09:00 02/24/21 10:00 DC 02/24/21 09:59 Sertraline HCl (Zoloft) 50 mg DAILY PO 02/25/21 09:00 03/01/21 18:30 DC 03/01/21 10:07 Olanzapine (ZyPREXA ZYDIS) 5 mg 1X ONCE PO 02/26/21 12:03 02/26/21 12:09 DC 02/26/21 12:25 Clonazepam (KlonoPIN) 0.5 mg DAILY PO 02/28/21 09:00 03/02/21 07:00 DC 03/01/21 10:07 Bupropion HCl (Wellbutrin Xl) 150 mg DAILY PO 03/02/21 09:00 03/08/21 15:46 DC 03/08/21 08:41 Levetiracetam (Keppra) 250 mg DAILY PO 03/03/21 09:00 04/10/21 00:12 DC 04/09/21 08:53 Aripiprazole (Abilify) 5 mg DAILY PO 03/05/21 09:00 04/20/21 08:56 Ondansetron HCl (Zofran Odt) 4 mg PRN Q4HRS PRN PO NAUSEA/VOMITING 03/06/21 19:30 04/02/21 09:23 Potassium Chloride (Klor-Con) 30 meq BID PO 03/07/21 09:00 04/20/21 19:55 Divalproex Sodium (Depakote Er) 1,000 mg 1700 PO 03/08/21 17:00 03/12/21 00:01 DC 03/11/21 17:27 Duloxetine HCl (Cymbalta) 30 mg 0900,1700 PO 03/08/21 17:00 04/20/21 16:34 Sulfasalazine (Azulfidine) 500 mg 0900,1300,1700 PO 03/08/21 09:00 04/20/21 16:34 Bupropion HCl (Wellbutrin Xl) 300 mg DAILY PO 03/09/21 09:00 04/20/21 09:00 Potassium Chloride (Klor-Con) 40 meq 1630,1730 PO 03/08/21 16:30 03/08/21 18:04 DC 03/08/21 16:57 Potassium Chloride (Klor-Con) 40 meq 1700,1800 PO 03/08/21 17:15 03/08/21 18:04 DC 03/08/21 17:56 Divalproex Sodium (Depakote Sprinkles) 500 mg BID PO 03/12/21 09:00 04/19/21 17:44 DC 04/19/21 08:27 Clotrimazole (Mycelex-7) 1 debra QHS VG 03/18/21 21:00 03/25/21 20:59 DC 03/24/21 20:20 Dicyclomine HCl (Bentyl) 20 mg TID PO 03/18/21 21:00 04/20/21 19:56 Diphenoxylate HCl/ Atropine (Lomotil) 2 tab BID PO 03/18/21 21:00 04/20/21 19:55 Lidocaine (Lidoderm) 1 patch PRN DAILY PRN TP pain 03/29/21 12:15 Fluconazole (Diflucan) 100 mg Q72H PO 04/16/21 12:00 04/19/21 12:01 DC 04/19/21 12:07 Divalproex Sodium (Depakote Er) 1,000 mg QHS PO 04/19/21 21:00 04/20/21 19:55 I have reviewed the current psychotropics carefully including drug interactions. Risk benefit ratio favors no change other than as noted in my dictated progress note. Diagnosis: Problems: (1) Impulse control disorder, unspecified (2) Mild cognitive impairment (3) Anxiety disorder, unspecified (4) Bipolar disorder, curr episode mixed, severe, with psychotic features (5) Bipolar 1 disorder, depressed NITHIN STEVENS MD Apr 20, 2021 21:16
--- NOTE | 2021-04-21 00:37 | NUR ---
Nursing Note Pt pleasant med compliant and cooperative. Denies complaints.
[2021-04-21 06:29] VITALS: BP 98/60
[2021-04-21] MEDS: NYSTATIN TOPICAL POWDER 15GM BOTTLE. TP SCH ×2 (08:16→19:51)
[2021-04-21] MEDS: buPROPion XL 300 MG TAB.ER.24H. PO SCH (08:16)
[2021-04-21] MEDS: FLUTICASONE 50MCG/NASAL SPRAY 16GM BOTTLE. NS SCH (08:16)
[2021-04-21] MEDS: ARIPiprazole 5 MG TABLET PO SCH (08:17)
[2021-04-21] MEDS: DIPHENOXYLATE/ATROPINE TABLET. PO SCH ×2 (08:17→19:50)
[2021-04-21] MEDS: sulfaSALAzine 500 MG TABLET PO SCH ×3 (08:17→16:06)
[2021-04-21] MEDS: DULoxetine HCL 30 MG CAPSULE.DR PO SCH ×2 (08:17→16:06)
[2021-04-21] MEDS: GABAPENTIN 300 MG CAPSULE. PO SCH ×4 (08:17→19:50)
[2021-04-21] MEDS: PANTOPRAZOLE 40 MG TABLET. PO SCH (08:17)
[2021-04-21] MEDS: HYDROXYUREA 500 MG CAPSULE PO SCH (08:21)
[2021-04-21] MEDS: POTASSIUM CHLORIDE 10 MEQ TABLET.ER. PO SCH ×2 (08:21→19:51)
[2021-04-21] MEDS: dilTIAZem HCL 30 MG TABLET PO SCH ×2 (08:21→19:50)
[2021-04-21] MEDS: DICYCLOMINE HCL 20 MG TABLET PO SCH ×3 (08:22→19:51)
[2021-04-21] MEDS: IPRATROPIUM/ALBUTEROL 20/100mcg/INH INHALER. INH SCH ×4 (08:22→19:51)
[2021-04-21] MEDS: LIPASE/PROTEAS/AMYLAS 10/32/42 CAPSULE.DR. PO SCH ×3 (08:22→16:06)
[2021-04-21 10:01] LABS: BILIRUBIN,URINE NEG (NEG); CLARITY,URINE CLEAR; COLOR,URINE YELLOW; GLUCOSE,URINE NEG (NEG)
[2021-04-21 10:02] LABS: NITRITE,URINE NEG (NEG); UROBILINOGEN,URINE 0.2 mg/dL (0.2 mg/dL)
[2021-04-21 10:03] LABS: SQUAMOUS EPITHELIAL CELL,UR MOD /LPF
[2021-04-21 10:04] LABS: BACTERIA,URINE FEW /HPF (0-FEW); RBC,URINE 0 /HPF (0-2); WBC,URINE OCC /HPF (0-4)
--- NOTE | 2021-04-21 14:36 | NUR ---
Pt presents with neutral mood/affect. Pt is low-[place] on the unit today. Pt is approachable and engages with staff. Pt is noted to spend time in the day room and in the hallway today with peers and staff. Pt is medication compliant. Pt slept 8.7 hours last night. Pt continues to have a good appetite. Will continue to monitor.
[2021-04-21 15:14] VITALS: BP 120/75
[2021-04-21] MEDS: traZODone 50 MG TABLET. PO SCH (19:50)
[2021-04-21] MEDS: DIVALPROEX ER 500 MG TAB.ER.24H PO SCH (19:51)
--- NOTE | 2021-04-21 20:23 | PDOC ---
Exam Note: [place] Note: Please also refer to the separate dictated note~for this date of service dictated separately.~Patient seen individually. Discussed the patient with Nursing staff reviewed the chart.~Reviewed interim history and current functioning. Reviewed vital signs,~Labs/ Radiology~and current medications noted below. Continue current treatment with the changes noted in the dictated addendum note Assessment: Vital Signs/I&O: Vital Signs Date Time Temp Pulse Resp B/P (MAP) Pulse Ox O2 Delivery O2 Flow Rate FiO2 04/21/21 19:50 92 120/75 04/21/21 15:14 98.8 20 91 2.0 04/17/21 06:05 Nasal Cannula I & O 04/20/21 04/20/21 04/21/21 15:00 23:00 07:00 Intake Total 720 ml 357 ml Balance 720 ml 357 ml Labs: Laboratory Tests Test 04/21/21 07:50 Urine Collection Type Unknown Urine Color Yellow Urine Clarity Clear Urine pH 7.[address] [place] 1.020 Urine Protein Neg (NEG-TRACE) Urine Glucose (UA) Neg mg/dL (NEG) Urine Ketones (Stick) Neg mg/dL (NEG) Urine Blood Neg (NEG) Urine Nitrite Neg (NEG) Urine Bilirubin Neg (NEG) Urine Urobilinogen Dipstick 0.2 mg/dL (0.2 mg/dL) Urine Leukocyte Esterase Neg (NEG) Urine RBC 0 /HPF (0-2) Urine WBC Occ /HPF (0-4) Urine Squamous Epithelial Cells Mod /LPF Urine Bacteria Few /HPF (0-FEW) Urine Mucus Slight /LPF Current Medications: Meds: Laboratory Tests Test 04/21/21 07:50 Urine Collection Type Unknown Urine Color Yellow Urine Clarity Clear Urine pH 7.[address] [place] [address] [place] 1.020 Urine Protein Neg Urine Glucose (UA) Neg mg/dL Urine Ketones (Stick) Neg mg/dL Urine Blood Neg Urine Nitrite Neg Urine Bilirubin Neg Urine Urobilinogen Dipstick 0.2 mg/dL Urine Leukocyte Esterase Neg Urine RBC 0 /HPF Urine WBC Occ /HPF Urine Squamous Epithelial Cells Mod /LPF Urine Bacteria Few /HPF Urine Mucus Slight /LPF Current Medications Medications (Trade) Dose Ordered Sig/Mya Route PRN Reason Start Time Stop Time Status Last Admin Dose Admin Acetaminophen (Tylenol) 650 mg PRN Q6HRS PRN PO MILD PAIN / TEMP > 100.3'F 02/16/21 15:45 03/04/21 09:21 DC 02/18/21 06:31 Multi-Ingredient Ointment (Analgesic [place]) 1 debra PRN QID PRN TP MUSCLE PAIN 02/16/21 15:45 03/04/21 09:21 DC Al Hydroxide/Mg Hydroxide (Mylanta Plus Xs) 15 ml PRN AFTMEALHC PRN PO DYSPEPSIA 02/16/21 15:45 03/04/21 22:05 Magnesium Hydroxide (Milk Of Magnesia) 2,400 mg PRN QHS PRN PO 1ST CHOICE CONSTIPATION 02/16/21 15:45 03/04/21 09:21 DC Acetaminophen (Tylenol) 1,000 mg Q6HRS PRN PO pain or fever 02/16/21 17:00 02/16/21 17:35 DC Acetaminophen (Tylenol) 500 mg Q4HRS PRN PO MILD PAIN 1-3 02/16/21 17:00 02/16/21 17:36 DC Bisacodyl (Dulcolax Tab) 5 mg PRN DAILY PRN PO 2ND CHOICE CONSTIPATION 02/16/21 17:00 03/04/21 09:21 DC Vitamin D (Vitamin D3) 50,000 unit WEEKLY PO 02/22/21 09:00 03/04/21 09:21 DC 02/22/21 07:16 Clonazepam (KlonoPIN) 0.5 mg BID PO 02/16/21 21:00 02/27/21 19:54 DC 02/27/21 10:11 Dicyclomine HCl (Bentyl) 20 mg TID PO 02/16/21 21:00 03/04/21 09:21 DC 03/03/21 21:07 Diphenoxylate HCl/ Atropine (Lomotil) 2 tab BID PO 02/16/21 21:00 03/04/21 09:21 DC 03/03/21 21:08 Divalproex Sodium (Depakote Er) 1,000 mg HS PO 02/16/21 21:00 03/07/21 20:15 DC 03/04/21 21:43 Duloxetine HCl (Cymbalta) 30 mg BID PO 02/16/21 21:00 03/07/21 20:15 DC 03/06/21 08:14 Fluticasone Propionate (Flonase) 2 spray DAILY NS 02/17/21 09:00 04/21/21 08:16 Furosemide (Lasix) 20 mg DAILY PO 02/17/21 09:00 03/04/21 09:21 DC 03/03/21 08:32 Gabapentin (Neurontin) 300 mg QID PO 02/16/21 17:00 04/21/21 19:50 Hydroxyurea (Hydrea) 1,000 mg DAILY PO 02/17/21 09:00 04/21/21 08:21 Levetiracetam (Keppra) 250 mg BID PO 02/16/21 21:00 03/02/21 14:48 DC 03/02/21 09:54 Lidocaine (Lidoderm) 1 patch DAILY TP 02/17/21 09:00 02/17/21 09:24 DC Al Hydroxide/Mg Hydroxide (Mylanta Plus Xs) 15 ml PRN AFTMEALHC PRN PO DYSPEPSIA 02/16/21 17:00 02/16/21 17:36 DC Mirabegron (Myrbetriq) 50 mg DAILY PO 02/17/21 09:00 03/04/21 09:21 DC 03/03/21 08:30 Nystatin (Nystop) 1 debra BID TP 02/16/21 21:00 04/21/21 19:51 Pantoprazole Sodium (Protonix) 40 mg DAILYAC PO 02/17/21 07:30 04/21/21 08:17 Potassium Chloride (Klor-Con) 40 meq DAILY PO 02/17/21 09:00 03/04/21 09:21 DC 03/03/21 08:32 Sulfasalazine (Azulfidine) 500 mg TID PO 02/16/21 21:00 03/07/21 20:15 DC 03/06/21 13:05 Trazodone HCl (Desyrel) 50 mg QHS PO 02/16/21 21:00 04/21/21 19:50 Non-Formulary Medication (Albuterol Sulfate (Albuterol Sulfate Conc Neb Soln)) 1 vial PRN Q4HRS PRN NEB SHORTNESS OF BREATH 02/16/21 17:00 02/16/21 17:49 DC Ascorbic Acid (Vitamin C) 1,000 mg DAILY PO 02/17/21 09:00 03/04/21 09:21 DC 03/03/21 08:34 Diltiazem HCl (Cardizem) 60 mg BID PO 02/16/21 21:00 04/21/21 19:50 Lactobacillus Rhamnosus (Culturelle) 1 cap DAILY PO 02/17/21 09:00 03/04/21 09:21 DC 03/03/21 08:32 Amylase/Lipase/ Protease (Zenpep 10,000) 1 cap TIDBFRMEAL PO 02/17/21 07:30 04/21/21 16:06 Non-Formulary Medication (Magnesium Hydroxide (Milk Of Magnesia)) 2,400 mg PRN DAILY PRN PO CONSTIPATION 02/16/21 17:00 02/16/21 17:37 DC Magnesium Oxide (Magnesium Oxide) 400 mg DAILY PO 02/17/21 09:00 03/04/21 09:21 DC 03/03/21 08:31 Non-Formulary Medication (Methyl Salicylate/ Menthol (Analgesic [place])) 1 debra PRN Q6HRS PRN TP MUSCLE PAIN 02/16/21 17:00 02/16/21 17:37 DC Non-Formulary Medication (Umeclidinium [place] (Incruse Ellipta)) 62.5 mcg DAILY IH 02/17/21 09:00 02/16/21 17:49 DC Non-Formulary Medication (Zinc Gluconate ) 50 mg DAILY PO 02/17/21 09:00 02/16/21 17:46 DC Albuterol/ Ipratropium (Duoneb) 3 ml RTQID NEB 02/16/21 20:00 02/17/21 19:52 DC Albuterol Sulfate (Ventolin) 2.5 mg PRN Q4HRS PRN NEB SHORTNESS OF BREATH 02/16/21 18:00 Influenza Virus Vaccine Quadrival (Flulaval Quad [id number] Syringe) 0.5 ml ONCE ONCE VAX IM 02/17/21 09:00 02/17/21 09:01 DC 02/17/21 09:21 Lidocaine (Lidoderm) 1 patch DAILY PRN TP pain 02/17/21 09:30 03/29/21 12:01 DC 03/28/21 08:37 Albuterol/ Ipratropium (Combivent Respimat 20-100 Mcg) 1 puff RTQID INH 02/17/21 20:00 04/21/21 19:51 Sertraline HCl (Zoloft) 25 mg DAILY PO 02/22/21 09:00 02/24/21 10:00 DC 02/24/21 09:59 Sertraline HCl (Zoloft) 50 mg DAILY PO 02/25/21 09:00 03/01/21 18:30 DC 03/01/21 10:07 Olanzapine (ZyPREXA ZYDIS) 5 mg 1X ONCE PO 02/26/21 12:03 02/26/21 12:09 DC 02/26/21 12:25 Clonazepam (KlonoPIN) 0.5 mg DAILY PO 02/28/21 09:00 03/02/21 07:00 DC 03/01/21 10:07 Bupropion HCl (Wellbutrin Xl) 150 mg DAILY PO 03/02/21 09:00 03/08/21 15:46 DC 03/08/21 08:41 Levetiracetam (Keppra) 250 mg DAILY PO 03/03/21 09:00 04/10/21 00:12 DC 04/09/21 08:53 Aripiprazole (Abilify) 5 mg DAILY PO 03/05/21 09:00 04/21/21 08:17 Ondansetron HCl (Zofran Odt) 4 mg PRN Q4HRS PRN PO NAUSEA/VOMITING 03/06/21 19:30 04/02/21 09:23 Potassium Chloride (Klor-Con) 30 meq BID PO 03/07/21 09:00 04/21/21 19:51 Divalproex Sodium (Depakote Er) 1,000 mg 1700 PO 03/08/21 17:00 03/12/21 00:01 DC 03/11/21 17:27 Duloxetine HCl (Cymbalta) 30 mg 0900,1700 PO 03/08/21 17:00 04/21/21 16:06 Sulfasalazine (Azulfidine) 500 mg 0900,1300,1700 PO 03/08/21 09:00 04/21/21 16:06 Bupropion HCl (Wellbutrin Xl) 300 mg DAILY PO 03/09/21 09:00 04/21/21 08:16 Potassium Chloride (Klor-Con) 40 meq 1630,1730 PO 03/08/21 16:30 03/08/21 18:04 DC 03/08/21 16:57 Potassium Chloride (Klor-Con) 40 meq 1700,1800 PO 03/08/21 17:15 03/08/21 18:04 DC 03/08/21 17:56 Divalproex Sodium (Depakote Sprinkles) 500 mg BID PO 03/12/21 09:00 04/19/21 17:44 DC 04/19/21 08:27 Clotrimazole (Mycelex-7) 1 debra QHS VG 03/18/21 21:00 03/25/21 20:59 DC 03/24/21 20:20 Dicyclomine HCl (Bentyl) 20 mg TID PO 03/18/21 21:00 04/21/21 19:51 Diphenoxylate HCl/ Atropine (Lomotil) 2 tab BID PO 03/18/21 21:00 04/21/21 19:50 Lidocaine (Lidoderm) 1 patch PRN DAILY PRN TP pain 03/29/21 12:15 Fluconazole (Diflucan) 100 mg Q72H PO 04/16/21 12:00 04/19/21 12:01 DC 04/19/21 12:07 Divalproex Sodium (Depakote Er) 1,000 mg QHS PO 04/19/21 21:00 04/21/21 19:51 I have reviewed the current psychotropics carefully including drug interactions. Risk benefit ratio favors no change other than as noted in my dictated progress note. Diagnosis: Problems: (1) Mild cognitive impairment (2) Anxiety disorder, unspecified (3) Impulse control disorder, unspecified (4) Bipolar disorder, curr episode mixed, severe, with psychotic features (5) Bipolar 1 disorder, depressed NITHIN STEVENS MD Apr 21, 2021 20:23
--- NOTE | 2021-04-21 23:41 | NUR ---
Nursing Note Pt pleasant med compliant and cooperative. Denies complaints.
[2021-04-22 06:26] VITALS: BP 125/65
--- NOTE | 2021-04-22 07:03 | PDOC ---
Exam Note: Napoleon Note: This note is a late entry for 04/20/2021 covers elements not covered in my initial note. Subjective: The patient was reviewed at treatment team meeting individually in the morning on 04/20/2021 with Lety Farley, Rosalva Hutton, and Archana Dillard (social research assistant), Bessy, activity therapy, and Hadley BARR, discussed and reviewed the chart. The patient slept 8 hours previous night. She has been little more irritable at times. Appetite is fair. Sleeping average 7-1/2 hours. She has attended 5 groups in the past week. Guardianship is still being pursued. She is more interactive in activity therapy. Per Anel BARR in the evening the patient appears more confused. We will check UA to rule out UTI. Review of Systems: Impaired ambulation, in wheelchair. Shortness of breath on O2 supplements. No CV, , eye, ENT system symptoms on review. Mental Status Exam: The patient is reasonably oriented. Speech coherent has some latency. Abstraction fair. Computation impaired. Language function intact. Mood and affect depressed and anxious, but better than before. No suicidal ideation. Laboratory Data: Reviewed. Impression: Bipolar disorder, depressed. Anxiety disorder unspecified. Impulse control disorder unspecified. Plan: No change from initial note. Assessment: Vital Signs/I&O: Vital Signs Date Time Temp Pulse Resp B/P (MAP) Pulse Ox O2 Delivery O2 Flow Rate FiO2 04/22/21 06:26 97.9 92 20 125/65 (85) 92 2.0 04/17/21 06:05 Nasal Cannula I & O 04/21/21 04/21/21 04/22/21 15:00 23:00 07:00 Intake Total 960 ml 320 ml Balance 960 ml 320 ml Labs: Laboratory Tests Test 04/21/21 07:50 Urine Collection Type Unknown Urine Color Yellow Urine Clarity Clear Urine pH 7.0 Urine Specific [place] 1.020 Urine Protein Neg (NEG-TRACE) Urine Glucose (UA) Neg mg/dL (NEG) Urine Ketones (Stick) Neg mg/dL (NEG) Urine Blood Neg (NEG) Urine Nitrite Neg (NEG) Urine Bilirubin Neg (NEG) Urine Urobilinogen Dipstick 0.2 mg/dL (0.2 mg/dL) Urine Leukocyte Esterase Neg (NEG) Urine RBC 0 /HPF (0-2) Urine WBC Occ /HPF (0-4) Urine Squamous Epithelial Cells Mod /LPF Urine Bacteria Few /HPF (0-FEW) Urine Mucus Slight /LPF Current Medications: Meds: Laboratory Tests Test 04/21/21 07:50 Urine Collection Type Unknown Urine Color Yellow Urine Clarity Clear Urine pH 7.0 Urine Specific [place] 1.020 Urine Protein Neg Urine Glucose (UA) Neg mg/dL Urine Ketones (Stick) Neg mg/dL Urine Blood Neg Urine Nitrite Neg Urine Bilirubin Neg Urine Urobilinogen Dipstick 0.2 mg/dL Urine Leukocyte Esterase Neg Urine RBC 0 /HPF Urine WBC Occ /HPF Urine Squamous Epithelial Cells Mod /LPF Urine Bacteria Few /HPF Urine Mucus Slight /LPF Current Medications Medications (Trade) Dose Ordered Sig/Mya Route PRN Reason Start Time Stop Time Status Last Admin Dose Admin Acetaminophen (Tylenol) 650 mg PRN Q6HRS PRN PO MILD PAIN / TEMP > 100.3'F 02/16/21 15:45 03/04/21 09:21 DC 02/18/21 06:31 Multi-Ingredient Ointment (Analgesic [place]) 1 debra PRN QID PRN TP MUSCLE PAIN 02/16/21 15:45 03/04/21 09:21 DC Al Hydroxide/Mg Hydroxide (Mylanta Plus Xs) 15 ml PRN AFTMEALHC PRN PO DYSPEPSIA 02/16/21 15:45 03/04/21 22:05 Magnesium Hydroxide (Milk Of Magnesia) 2,400 mg PRN QHS PRN PO 1ST CHOICE CONSTIPATION 02/16/21 15:45 03/04/21 09:21 DC Acetaminophen (Tylenol) 1,000 mg Q6HRS PRN PO pain or fever 02/16/21 17:00 02/16/21 17:35 DC Acetaminophen (Tylenol) 500 mg Q4HRS PRN PO MILD PAIN 1-3 02/16/21 17:00 02/16/21 17:36 DC Bisacodyl (Dulcolax Tab) 5 mg PRN DAILY PRN PO 2ND CHOICE CONSTIPATION 02/16/21 17:00 03/04/21 09:21 DC Vitamin D (Vitamin D3) 50,000 unit WEEKLY PO 02/22/21 09:00 03/04/21 09:21 DC 02/22/21 07:16 Clonazepam (KlonoPIN) 0.5 mg BID PO 02/16/21 21:00 02/27/21 19:54 DC 02/27/21 10:11 Dicyclomine HCl (Bentyl) 20 mg TID PO 02/16/21 21:00 03/04/21 09:21 DC 03/03/21 21:07 Diphenoxylate HCl/ Atropine (Lomotil) 2 tab BID PO 02/16/21 21:00 03/04/21 09:21 DC 03/03/21 21:08 Divalproex Sodium (Depakote Er) 1,000 mg HS PO 02/16/21 21:00 03/07/21 20:15 DC 03/04/21 21:43 Duloxetine HCl (Cymbalta) 30 mg BID PO 02/16/21 21:00 03/07/21 20:15 DC 03/06/21 08:14 Fluticasone Propionate (Flonase) 2 spray DAILY NS 02/17/21 09:00 04/21/21 08:16 Furosemide (Lasix) 20 mg DAILY PO 02/17/21 09:00 03/04/21 09:21 DC 03/03/21 08:32 Gabapentin (Neurontin) 300 mg QID PO 02/16/21 17:00 04/21/21 19:50 Hydroxyurea (Hydrea) 1,000 mg DAILY PO 02/17/21 09:00 04/21/21 08:21 Levetiracetam (Keppra) 250 mg BID PO 02/16/21 21:00 03/02/21 14:48 DC 03/02/21 09:54 Lidocaine (Lidoderm) 1 patch DAILY TP 02/17/21 09:00 02/17/21 09:24 DC Al Hydroxide/Mg Hydroxide (Mylanta Plus Xs) 15 ml PRN AFTMEALHC PRN PO DYSPEPSIA 02/16/21 17:00 02/16/21 17:36 DC Mirabegron (Myrbetriq) 50 mg DAILY PO 02/17/21 09:00 03/04/21 09:21 DC 03/03/21 08:30 Nystatin (Nystop) 1 debra BID TP 02/16/21 21:00 04/21/21 19:51 Pantoprazole Sodium (Protonix) 40 mg DAILYAC PO 02/17/21 07:30 04/21/21 08:17 Potassium Chloride (Klor-Con) 40 meq DAILY PO 02/17/21 09:00 03/04/21 09:21 DC 03/03/21 08:32 Sulfasalazine (Azulfidine) 500 mg TID PO 02/16/21 21:00 03/07/21 20:15 DC 03/06/21 13:05 Trazodone HCl (Desyrel) 50 mg QHS PO 02/16/21 21:00 04/21/21 19:50 Non-Formulary Medication (Albuterol Sulfate (Albuterol Sulfate Conc Neb Soln)) 1 vial PRN Q4HRS PRN NEB SHORTNESS OF BREATH 02/16/21 17:00 02/16/21 17:49 DC Ascorbic Acid (Vitamin C) 1,000 mg DAILY PO 02/17/21 09:00 03/04/21 09:21 DC 03/03/21 08:34 Diltiazem HCl (Cardizem) 60 mg BID PO 02/16/21 21:00 04/21/21 19:50 Lactobacillus Rhamnosus (Culturelle) 1 cap DAILY PO 02/17/21 09:00 03/04/21 09:21 DC 03/03/21 08:32 Amylase/Lipase/ Protease (Zenpep 10,000) 1 cap TIDBFRMEAL PO 02/17/21 07:30 04/21/21 16:06 Non-Formulary Medication (Magnesium Hydroxide (Milk Of Magnesia)) 2,400 mg PRN DAILY PRN PO CONSTIPATION 02/16/21 17:00 02/16/21 17:37 DC Magnesium Oxide (Magnesium Oxide) 400 mg DAILY PO 02/17/21 09:00 03/04/21 09:21 DC 03/03/21 08:31 Non-Formulary Medication (Methyl Salicylate/ Menthol (Analgesic [place])) 1 debra PRN Q6HRS PRN TP MUSCLE PAIN 02/16/21 17:00 02/16/21 17:37 DC Non-Formulary Medication (Umeclidinium [place] (Incruse Ellipta)) 62.5 mcg DAILY IH 02/17/21 09:00 02/16/21 17:49 DC Non-Formulary Medication (Zinc Gluconate ) 50 mg DAILY PO 02/17/21 09:00 02/16/21 17:46 DC Albuterol/ Ipratropium (Duoneb) 3 ml RTQID NEB 02/16/21 20:00 02/17/21 19:52 DC Albuterol Sulfate (Ventolin) 2.5 mg PRN Q4HRS PRN NEB SHORTNESS OF BREATH 02/16/21 18:00 Influenza Virus Vaccine Quadrival (Flulaval Quad [id number] Syringe) 0.5 ml ONCE ONCE VAX IM 02/17/21 09:00 02/17/21 09:01 DC 02/17/21 09:21 Lidocaine (Lidoderm) 1 patch DAILY PRN TP pain 02/17/21 09:30 03/29/21 12:01 DC 03/28/21 08:37 Albuterol/ Ipratropium (Combivent Respimat 20-100 Mcg) 1 puff RTQID INH 02/17/21 20:00 04/21/21 19:51 Sertraline HCl (Zoloft) 25 mg DAILY PO 02/22/21 09:00 02/24/21 10:00 DC 02/24/21 09:59 Sertraline HCl (Zoloft) 50 mg DAILY PO 02/25/21 09:00 03/01/21 18:30 DC 03/01/21 10:07 Olanzapine (ZyPREXA ZYDIS) 5 mg 1X ONCE PO 02/26/21 12:03 02/26/21 12:09 DC 02/26/21 12:25 Clonazepam (KlonoPIN) 0.5 mg DAILY PO 02/28/21 09:00 03/02/21 07:00 DC 03/01/21 10:07 Bupropion HCl (Wellbutrin Xl) 150 mg DAILY PO 03/02/21 09:00 03/08/21 15:46 DC 03/08/21 08:41 Levetiracetam (Keppra) 250 mg DAILY PO 03/03/21 09:00 04/10/21 00:12 DC 04/09/21 08:53 Aripiprazole (Abilify) 5 mg DAILY PO 03/05/21 09:00 04/21/21 08:17 Ondansetron HCl (Zofran Odt) 4 mg PRN Q4HRS PRN PO NAUSEA/VOMITING 03/06/21 19:30 04/02/21 09:23 Potassium Chloride (Klor-Con) 30 meq BID PO 03/07/21 09:00 04/21/21 19:51 Divalproex Sodium (Depakote Er) 1,000 mg 1700 PO 03/08/21 17:00 03/12/21 00:01 DC 03/11/21 17:27 Duloxetine HCl (Cymbalta) 30 mg 0900,1700 PO 03/08/21 17:00 04/21/21 16:06 Sulfasalazine (Azulfidine) 500 mg 0900,1300,1700 PO 03/08/21 09:00 04/21/21 16:06 Bupropion HCl (Wellbutrin Xl) 300 mg DAILY PO 03/09/21 09:00 04/21/21 08:16 Potassium Chloride (Klor-Con) 40 meq 1630,1730 PO 03/08/21 16:30 03/08/21 18:04 DC 03/08/21 16:57 Potassium Chloride (Klor-Con) 40 meq 1700,1800 PO 03/08/21 17:15 03/08/21 18:04 DC 03/08/21 17:56 Divalproex Sodium (Depakote Sprinkles) 500 mg BID PO 03/12/21 09:00 04/19/21 17:44 DC 04/19/21 08:27 Clotrimazole (Mycelex-7) 1 debra QHS VG 03/18/21 21:00 03/25/21 20:59 DC 03/24/21 20:20 Dicyclomine HCl (Bentyl) 20 mg TID PO 03/18/21 21:00 04/21/21 19:51 Diphenoxylate HCl/ Atropine (Lomotil) 2 tab BID PO 03/18/21 21:00 04/21/21 19:50 Lidocaine (Lidoderm) 1 patch PRN DAILY PRN TP pain 03/29/21 12:15 Fluconazole (Diflucan) 100 mg Q72H PO 04/16/21 12:00 04/19/21 12:01 DC 04/19/21 12:07 Divalproex Sodium (Depakote Er) 1,000 mg QHS PO 04/19/21 21:00 04/21/21 19:51 I have reviewed the current psychotropics carefully including drug interactions. Risk benefit ratio favors no change other than as noted in my dictated progress note. Diagnosis: Problems: (1) Impulse control disorder, unspecified (2) Mild cognitive impairment (3) Anxiety disorder, unspecified (4) Bipolar disorder, curr episode mixed, severe, with psychotic features (5) Bipolar 1 disorder, depressed NITHIN STEVENS MD Apr 22, 2021 07:03
[2021-04-22 07:09] LABS: BASO % 1 % (0-3); EOS # 0.1 x10^3/uL (0.0-0.7); EOS % 2 % (0-3); HEMATOCRIT 35.1 % (36.0-47.0); HEMOGLOBIN 11.7 g/dL (12.0-15.5); LYMPH # 0.8 x10^3/uL (1.0-4.8); LYMPH % 14 % (24-48); MEAN CORPUSCULAR HEMOGLOBIN 38 pg (25-35); MEAN CORPUSCULAR HGB CONC 34 g/dL (31-37); MEAN CORPUSCULAR VOLUME 114 fL (79-100); MONO # 0.6 x10^3/uL (0.0-1.1); MONO % 10 % (0-9); NEUT # 4.3 x10^3uL (1.8-7.7); NEUT % 74 % (31-73); PLATELET COUNT 240 x10^3/uL (140-400); RED BLOOD COUNT 3.07 x10^6/uL (3.50-5.40); RED CELL DISTRIBUTION WIDTH 13.6 % (11.5-14.5); WHITE BLOOD COUNT 5.9 x10^3/uL (4.0-11.0)
--- NOTE | 2021-04-22 07:15 | PDOC ---
Exam Note: Napoleon Note: This note is a late entry for 04/21/2021 covers elements not covered in my initial note. Subjective: The patient was seen individually in the evening of 04/21/2021 with Anel BARR, discussed and reviewed the chart. The patient slept 8-3/4 hours previous night. Overall she is doing reasonably well, not putting herself on the floor, keeping her oxygen in place. Review of Systems: Impaired ambulation, in wheelchair. Shortness of breath on O2 supplements. No CV, , eye, ENT system symptoms on review. Mental Status Exam: The patient is oriented to herself and situation. Speech coherent. Abstraction fair. Computation impaired. Language function intact. Attention span short. Mood and affect withdrawn. No suicidal ideation. Laboratory Data: Reviewed. Impression: Bipolar disorder, depressed. Anxiety disorder unspecified. Impulse control disorder unspecified. Plan: No change from initial note. Assessment: Vital Signs/I&O: Vital Signs Date Time Temp Pulse Resp B/P (MAP) Pulse Ox O2 Delivery O2 Flow Rate FiO2 04/22/21 06:26 97.9 92 20 125/65 (85) 92 2.0 04/17/21 06:05 Nasal Cannula I & O 04/21/21 04/21/21 04/22/21 15:00 23:00 07:00 Intake Total 960 ml 320 ml Balance 960 ml 320 ml Labs: Laboratory Tests Test 04/21/21 07:50 04/22/21 06:48 Urine Collection Type Unknown Urine Color Yellow Urine Clarity Clear Urine pH 7.0 Urine Specific [place] 1.020 Urine Protein Neg (NEG-TRACE) Urine Glucose (UA) Neg mg/dL (NEG) Urine Ketones (Stick) Neg mg/dL (NEG) Urine Blood Neg (NEG) Urine Nitrite Neg (NEG) Urine Bilirubin Neg (NEG) Urine Urobilinogen Dipstick 0.2 mg/dL (0.2 mg/dL) Urine Leukocyte Esterase Neg (NEG) Urine RBC 0 /HPF (0-2) Urine WBC Occ /HPF (0-4) Urine Squamous Epithelial Cells Mod /LPF Urine Bacteria Few /HPF (0-FEW) Urine Mucus Slight /LPF White Blood Count 5.9 x10^3/uL (4.0-11.0) Red Blood Count 3.07 x10^6/uL (3.50-5.40) L Hemoglobin 11.7 g/dL (12.0-15.5) L Hematocrit 35.1 % (36.0-47.0) L Mean Corpuscular Volume 114 fL (79-100) H Mean Corpuscular Hemoglobin 38 pg (25-35) H Mean Corpuscular Hemoglobin Concent 34 g/dL (31-37) Red Cell Distribution Width 13.6 % (11.5-14.5) Platelet Count 240 x10^3/uL (140-400) Neutrophils (%) (Auto) 74 % (31-73) H Lymphocytes (%) (Auto) 14 % (24-48) L Monocytes (%) (Auto) 10 % (0-9) H Eosinophils (%) (Auto) 2 % (0-3) Basophils (%) (Auto) 1 % (0-3) Neutrophils # (Auto) 4.3 x10^3uL (1.8-7.7) Lymphocytes # (Auto) 0.8 x10^3/uL (1.0-4.8) L Monocytes # (Auto) 0.6 x10^3/uL (0.0-1.1) Eosinophils # (Auto) 0.1 x10^3/uL (0.0-0.7) Basophils # (Auto) 0.0 x10^3/uL (0.0-0.2) Current Medications: Meds: Laboratory Tests Test 04/21/21 07:50 04/22/21 06:48 Urine Collection Type Unknown Urine Color Yellow Urine Clarity Clear Urine pH 7.0 Urine Specific [place] 1.020 Urine Protein Neg Urine Glucose (UA) Neg mg/dL Urine Ketones (Stick) Neg mg/dL Urine Blood Neg Urine Nitrite Neg Urine Bilirubin Neg Urine Urobilinogen Dipstick 0.2 mg/dL Urine Leukocyte Esterase Neg Urine RBC 0 /HPF Urine WBC Occ /HPF Urine Squamous Epithelial Cells Mod /LPF Urine Bacteria Few /HPF Urine Mucus Slight /LPF White Blood Count 5.9 x10^3/uL Red Blood Count 3.07 x10^6/uL Hemoglobin 11.7 g/dL Hematocrit 35.1 % Mean Corpuscular Volume 114 fL Mean Corpuscular Hemoglobin 38 pg Mean Corpuscular Hemoglobin Concent 34 g/dL Red Cell Distribution Width 13.6 % Platelet Count 240 x10^3/uL Neutrophils (%) (Auto) 74 % Lymphocytes (%) (Auto) 14 % Monocytes (%) (Auto) 10 % Eosinophils (%) (Auto) 2 % Basophils (%) (Auto) 1 % Neutrophils # (Auto) 4.3 x10^3uL Lymphocytes # (Auto) 0.8 x10^3/uL Monocytes # (Auto) 0.6 x10^3/uL Eosinophils # (Auto) 0.1 x10^3/uL Basophils # (Auto) 0.0 x10^3/uL Current Medications Medications (Trade) Dose Ordered Sig/Mya Route PRN Reason Start Time Stop Time Status Last Admin Dose Admin Acetaminophen (Tylenol) 650 mg PRN Q6HRS PRN PO MILD PAIN / TEMP > 100.3'F 02/16/21 15:45 03/04/21 09:21 DC 02/18/21 06:31 Multi-Ingredient Ointment (Analgesic [place]) 1 debra PRN QID PRN TP MUSCLE PAIN 02/16/21 15:45 03/04/21 09:21 DC Al Hydroxide/Mg Hydroxide (Mylanta Plus Xs) 15 ml PRN AFTMEALHC PRN PO DYSPEPSIA 02/16/21 15:45 03/04/21 22:05 Magnesium Hydroxide (Milk Of Magnesia) 2,400 mg PRN QHS PRN PO 1ST CHOICE CONSTIPATION 02/16/21 15:45 03/04/21 09:21 DC Acetaminophen (Tylenol) 1,000 mg Q6HRS PRN PO pain or fever 02/16/21 17:00 02/16/21 17:35 DC Acetaminophen (Tylenol) 500 mg Q4HRS PRN PO MILD PAIN 1-3 02/16/21 17:00 02/16/21 17:36 DC Bisacodyl (Dulcolax Tab) 5 mg PRN DAILY PRN PO 2ND CHOICE CONSTIPATION 02/16/21 17:00 03/04/21 09:21 DC Vitamin D (Vitamin D3) 50,000 unit WEEKLY PO 02/22/21 09:00 03/04/21 09:21 DC 02/22/21 07:16 Clonazepam (KlonoPIN) 0.5 mg BID PO 02/16/21 21:00 02/27/21 19:54 DC 02/27/21 10:11 Dicyclomine HCl (Bentyl) 20 mg TID PO 02/16/21 21:00 03/04/21 09:21 DC 03/03/21 21:07 Diphenoxylate HCl/ Atropine (Lomotil) 2 tab BID PO 02/16/21 21:00 03/04/21 09:21 DC 03/03/21 21:08 Divalproex Sodium (Depakote Er) 1,000 mg HS PO 02/16/21 21:00 03/07/21 20:15 DC 03/04/21 21:43 Duloxetine HCl (Cymbalta) 30 mg BID PO 02/16/21 21:00 03/07/21 20:15 DC 03/06/21 08:14 Fluticasone Propionate (Flonase) 2 spray DAILY NS 02/17/21 09:00 04/21/21 08:16 Furosemide (Lasix) 20 mg DAILY PO 02/17/21 09:00 03/04/21 09:21 DC 03/03/21 08:32 Gabapentin (Neurontin) 300 mg QID PO 02/16/21 17:00 04/21/21 19:50 Hydroxyurea (Hydrea) 1,000 mg DAILY PO 02/17/21 09:00 04/21/21 08:21 Levetiracetam (Keppra) 250 mg BID PO 02/16/21 21:00 03/02/21 14:48 DC 03/02/21 09:54 Lidocaine (Lidoderm) 1 patch DAILY TP 02/17/21 09:00 02/17/21 09:24 DC Al Hydroxide/Mg Hydroxide (Mylanta Plus Xs) 15 ml PRN AFTMEALHC PRN PO DYSPEPSIA 02/16/21 17:00 02/16/21 17:36 DC Mirabegron (Myrbetriq) 50 mg DAILY PO 02/17/21 09:00 03/04/21 09:21 DC 03/03/21 08:30 Nystatin (Nystop) 1 debra BID TP 02/16/21 21:00 04/21/21 19:51 Pantoprazole Sodium (Protonix) 40 mg DAILYAC PO 02/17/21 07:30 04/21/21 08:17 Potassium Chloride (Klor-Con) 40 meq DAILY PO 02/17/21 09:00 03/04/21 09:21 DC 03/03/21 08:32 Sulfasalazine (Azulfidine) 500 mg TID PO 02/16/21 21:00 03/07/21 20:15 DC 03/06/21 13:05 Trazodone HCl (Desyrel) 50 mg QHS PO 02/16/21 21:00 04/21/21 19:50 Non-Formulary Medication (Albuterol Sulfate (Albuterol Sulfate Conc Neb Soln)) 1 vial PRN Q4HRS PRN NEB SHORTNESS OF BREATH 02/16/21 17:00 02/16/21 17:49 DC Ascorbic Acid (Vitamin C) 1,000 mg DAILY PO 02/17/21 09:00 03/04/21 09:21 DC 03/03/21 08:34 Diltiazem HCl (Cardizem) 60 mg BID PO 02/16/21 21:00 04/21/21 19:50 Lactobacillus Rhamnosus (Culturelle) 1 cap DAILY PO 02/17/21 09:00 03/04/21 09:21 DC 03/03/21 08:32 Amylase/Lipase/ Protease (Zenpep 10,000) 1 cap TIDBFRMEAL PO 02/17/21 07:30 04/21/21 16:06 Non-Formulary Medication (Magnesium Hydroxide (Milk Of Magnesia)) 2,400 mg PRN DAILY PRN PO CONSTIPATION 02/16/21 17:00 02/16/21 17:37 DC Magnesium Oxide (Magnesium Oxide) 400 mg DAILY PO 02/17/21 09:00 03/04/21 09:21 DC 03/03/21 08:31 Non-Formulary Medication (Methyl Salicylate/ Menthol (Analgesic [place])) 1 debra PRN Q6HRS PRN TP MUSCLE PAIN 02/16/21 17:00 02/16/21 17:37 DC Non-Formulary Medication (Umeclidinium [place] (Incruse Ellipta)) 62.5 mcg DAILY IH 02/17/21 09:00 02/16/21 17:49 DC Non-Formulary Medication (Zinc Gluconate ) 50 mg DAILY PO 02/17/21 09:00 02/16/21 17:46 DC Albuterol/ Ipratropium (Duoneb) 3 ml RTQID NEB 02/16/21 20:00 02/17/21 19:52 DC Albuterol Sulfate (Ventolin) 2.5 mg PRN Q4HRS PRN NEB SHORTNESS OF BREATH 02/16/21 18:00 Influenza Virus Vaccine Quadrival (Flulaval Quad [id number] Syringe) 0.5 ml ONCE ONCE VAX IM 02/17/21 09:00 02/17/21 09:01 DC 02/17/21 09:21 Lidocaine (Lidoderm) 1 patch DAILY PRN TP pain 02/17/21 09:30 03/29/21 12:01 DC 03/28/21 08:37 Albuterol/ Ipratropium (Combivent Respimat 20-100 Mcg) 1 puff RTQID INH 02/17/21 20:00 04/21/21 19:51 Sertraline HCl (Zoloft) 25 mg DAILY PO 02/22/21 09:00 02/24/21 10:00 DC 02/24/21 09:59 Sertraline HCl (Zoloft) 50 mg DAILY PO 02/25/21 09:00 03/01/21 18:30 DC 03/01/21 10:07 Olanzapine (ZyPREXA ZYDIS) 5 mg 1X ONCE PO 02/26/21 12:03 02/26/21 12:09 DC 02/26/21 12:25 Clonazepam (KlonoPIN) 0.5 mg DAILY PO 02/28/21 09:00 03/02/21 07:00 DC 03/01/21 10:07 Bupropion HCl (Wellbutrin Xl) 150 mg DAILY PO 03/02/21 09:00 03/08/21 15:46 DC 03/08/21 08:41 Levetiracetam (Keppra) 250 mg DAILY PO 03/03/21 09:00 04/10/21 00:12 DC 04/09/21 08:53 Aripiprazole (Abilify) 5 mg DAILY PO 03/05/21 09:00 04/21/21 08:17 Ondansetron HCl (Zofran Odt) 4 mg PRN Q4HRS PRN PO NAUSEA/VOMITING 03/06/21 19:30 04/02/21 09:23 Potassium Chloride (Klor-Con) 30 meq BID PO 03/07/21 09:00 04/21/21 19:51 Divalproex Sodium (Depakote Er) 1,000 mg 1700 PO 03/08/21 17:00 03/12/21 00:01 DC 03/11/21 17:27 Duloxetine HCl (Cymbalta) 30 mg 0900,1700 PO 03/08/21 17:00 04/21/21 16:06 Sulfasalazine (Azulfidine) 500 mg 0900,1300,1700 PO 03/08/21 09:00 04/21/21 16:06 Bupropion HCl (Wellbutrin Xl) 300 mg DAILY PO 03/09/21 09:00 04/21/21 08:16 Potassium Chloride (Klor-Con) 40 meq 1630,1730 PO 03/08/21 16:30 03/08/21 18:04 DC 03/08/21 16:57 Potassium Chloride (Klor-Con) 40 meq 1700,1800 PO 03/08/21 17:15 03/08/21 18:04 DC 03/08/21 17:56 Divalproex Sodium (Depakote Sprinkles) 500 mg BID PO 03/12/21 09:00 04/19/21 17:44 DC 04/19/21 08:27 Clotrimazole (Mycelex-7) 1 debra QHS VG 03/18/21 21:00 03/25/21 20:59 DC 03/24/21 20:20 Dicyclomine HCl (Bentyl) 20 mg TID PO 03/18/21 21:00 04/21/21 19:51 Diphenoxylate HCl/ Atropine (Lomotil) 2 tab BID PO 03/18/21 21:00 04/21/21 19:50 Lidocaine (Lidoderm) 1 patch PRN DAILY PRN TP pain 03/29/21 12:15 Fluconazole (Diflucan) 100 mg Q72H PO 04/16/21 12:00 04/19/21 12:01 DC 04/19/21 12:07 Divalproex Sodium (Depakote Er) 1,000 mg QHS PO 04/19/21 21:00 04/21/21 19:51 I have reviewed the current psychotropics carefully including drug interactions. Risk benefit ratio favors no change other than as noted in my dictated progress note. Diagnosis: Problems: (1) Impulse control disorder, unspecified (2) Mild cognitive impairment (3) Anxiety disorder, unspecified (4) Bipolar disorder, curr episode mixed, severe, with psychotic features (5) Bipolar 1 disorder, depressed NITHIN STEVENS MD Apr 22, 2021 07:15
[2021-04-22 07:26] LABS: ALBUMIN 2.6 g/dL (3.4-5.0); ALBUMIN/GLOBULIN RATIO 0.8 (1.0-1.7); ALK PHOS 90 U/L (46-116); ALT (SGPT) 62 U/L (14-59); ANION GAP 8 (6-14); AST (SGOT) 26 U/L (15-37); BLOOD UREA NITROGEN 10 mg/dL (7-20); BUN/CREATININE RATIO 20 (6-20); CALCIUM 8.4 mg/dL (8.5-10.1); CARBON DIOXIDE 30 mmol/L (21-32); CHLORIDE 103 mmol/L (98-107); CREATININE 0.5 mg/dL (0.6-1.0); GFR 122.3; GLUCOSE 90 mg/dL (70-99); POTASSIUM 4.2 mmol/L (3.5-5.1); SODIUM 141 mmol/L (136-145); TOTAL BILIRUBIN 0.3 mg/dL (0.2-1.0); TOTAL PROTEIN 5.8 g/dL (6.4-8.2)
[2021-04-22 07:43] LABS: VAL ACID 36 mcg/mL (50-100)
[2021-04-22] MEDS: GABAPENTIN 300 MG CAPSULE. PO SCH ×4 (08:05→19:56)
[2021-04-22] MEDS: ARIPiprazole 5 MG TABLET PO SCH (08:05)
[2021-04-22] MEDS: sulfaSALAzine 500 MG TABLET PO SCH ×3 (08:05→15:58)
[2021-04-22] MEDS: DIPHENOXYLATE/ATROPINE TABLET. PO SCH ×2 (08:05→19:57)
[2021-04-22] MEDS: dilTIAZem HCL 30 MG TABLET PO SCH ×2 (08:05→19:57)
[2021-04-22] MEDS: POTASSIUM CHLORIDE 10 MEQ TABLET.ER. PO SCH ×2 (08:06→19:56)
[2021-04-22] MEDS: PANTOPRAZOLE 40 MG TABLET. PO SCH (08:06)
[2021-04-22] MEDS: buPROPion XL 300 MG TAB.ER.24H. PO SCH (08:06)
[2021-04-22] MEDS: LIPASE/PROTEAS/AMYLAS 10/32/42 CAPSULE.DR. PO SCH ×3 (08:06→15:57)
[2021-04-22] MEDS: DICYCLOMINE HCL 20 MG TABLET PO SCH ×3 (08:06→19:57)
[2021-04-22] MEDS: DULoxetine HCL 30 MG CAPSULE.DR PO SCH ×2 (08:06→15:57)
[2021-04-22] MEDS: HYDROXYUREA 500 MG CAPSULE PO SCH (08:07)
[2021-04-22] MEDS: FLUTICASONE 50MCG/NASAL SPRAY 16GM BOTTLE. NS SCH (08:08)
[2021-04-22] MEDS: NYSTATIN TOPICAL POWDER 15GM BOTTLE. TP SCH ×2 (08:08→19:58)
[2021-04-22] MEDS: IPRATROPIUM/ALBUTEROL 20/100mcg/INH INHALER. INH SCH ×4 (08:08→19:58)
[2021-04-22 08:31] LABS: PLT ESTIMATE ADEQUATE (ADEQUATE)
[2021-04-22 08:34] LABS: ANISOCYTOSIS PRESENT
--- NOTE | 2021-04-22 11:29 | NUR ---
Nurse Day Shift Note: Pt presents with pleasant mood/affect. Pt is medication compliant. Pt is calm and cooperative. Pt's vitals are WNL. Pt slept 8 hours last night. Pt continues to have a good appetite. Pt is social with select peers. Pt engages with staff when approached. Will continue to monitor.
[2021-04-22 14:58] VITALS: BP 122/62
[2021-04-22] MEDS: DIVALPROEX ER 500 MG TAB.ER.24H PO SCH (19:57)
[2021-04-22] MEDS: traZODone 50 MG TABLET. PO SCH (19:57)
--- NOTE | 2021-04-22 20:50 | PDOC ---
Exam Note: Napoleon Note: Please also refer to the separate dictated note~for this date of service dictated separately.~Patient seen individually. Discussed the patient with Nursing staff reviewed the chart.~Reviewed interim history and current functioning. Reviewed vital signs,~Labs/ Radiology~and current medications noted below. Continue current treatment with the changes noted in the dictated addendum note Assessment: Vital Signs/I&O: Vital Signs Date Time Temp Pulse Resp B/P (MAP) Pulse Ox O2 Delivery O2 Flow Rate FiO2 04/22/21 19:57 97 122/62 04/22/21 14:58 98.3 19 93 2.0 04/17/21 06:05 Nasal Cannula I & O 04/21/21 04/21/21 04/22/21 14:59 22:59 06:59 Intake Total 960 ml 320 ml Balance 960 ml 320 ml Labs: Laboratory Tests Test 04/22/21 06:48 White Blood Count 5.9 x10^3/uL (4.0-11.0) Red Blood Count 3.07 x10^6/uL (3.50-5.40) L Hemoglobin 11.7 g/dL (12.0-15.5) L Hematocrit 35.1 % (36.0-47.0) L Mean Corpuscular Volume 114 fL (79-100) H Mean Corpuscular Hemoglobin 38 pg (25-35) H Mean Corpuscular Hemoglobin Concent 34 g/dL (31-37) Red Cell Distribution Width 13.6 % (11.5-14.5) Platelet Count 240 x10^3/uL (140-400) Neutrophils (%) (Auto) 74 % (31-73) H Lymphocytes (%) (Auto) 14 % (24-48) L Monocytes (%) (Auto) 10 % (0-9) H Eosinophils (%) (Auto) 2 % (0-3) Basophils (%) (Auto) 1 % (0-3) Neutrophils # (Auto) 4.3 x10^3uL (1.8-7.7) Lymphocytes # (Auto) 0.8 x10^3/uL (1.0-4.8) L Monocytes # (Auto) 0.6 x10^3/uL (0.0-1.1) Eosinophils # (Auto) 0.1 x10^3/uL (0.0-0.7) Basophils # (Auto) 0.0 x10^3/uL (0.0-0.2) Platelet Estimate Adequate (ADEQUATE) Anisocytosis Present Macrocytosis Present Sodium Level 141 mmol/L (136-145) Potassium Level 4.2 mmol/L (3.5-5.1) Chloride Level 103 mmol/L (98-107) Carbon Dioxide Level 30 mmol/L (21-32) Anion Gap 8 (6-14) Blood Urea Nitrogen 10 mg/dL (7-20) Creatinine 0.5 mg/dL (0.6-1.0) L Estimated GFR (Cockcroft-Gault) 122.3 BUN/Creatinine Ratio 20 (6-20) Glucose Level 90 mg/dL (70-99) Calcium Level 8.4 mg/dL (8.5-10.1) L Total Bilirubin 0.3 mg/dL (0.2-1.0) Aspartate Amino Transferase (AST) 26 U/L (15-37) Alanine Aminotransferase (ALT) 62 U/L (14-59) H Alkaline Phosphatase 90 U/L (46-116) Total Protein 5.8 g/dL (6.4-8.2) L Albumin 2.6 g/dL (3.4-5.0) L Albumin/Globulin Ratio 0.8 (1.0-1.7) L Valproic Acid Level 36 mcg/mL (50-100) L Valproic Acid Last Dose Date 04/21/21 Valproic Acid Last Dose Time 2100 Current Medications: Meds: Laboratory Tests Test 04/22/21 06:48 White Blood Count 5.9 x10^3/uL Red Blood Count 3.07 x10^6/uL Hemoglobin 11.7 g/dL Hematocrit 35.1 % Mean Corpuscular Volume 114 fL Mean Corpuscular Hemoglobin 38 pg Mean Corpuscular Hemoglobin Concent 34 g/dL Red Cell Distribution Width 13.6 % Platelet Count 240 x10^3/uL Neutrophils (%) (Auto) 74 % Lymphocytes (%) (Auto) 14 % Monocytes (%) (Auto) 10 % Eosinophils (%) (Auto) 2 % Basophils (%) (Auto) 1 % Neutrophils # (Auto) 4.3 x10^3uL Lymphocytes # (Auto) 0.8 x10^3/uL Monocytes # (Auto) 0.6 x10^3/uL Eosinophils # (Auto) 0.1 x10^3/uL Basophils # (Auto) 0.0 x10^3/uL Platelet Estimate Adequate Anisocytosis Present Macrocytosis Present Sodium Level 141 mmol/L Potassium Level 4.2 mmol/L Chloride Level 103 mmol/L Carbon Dioxide Level 30 mmol/L Anion Gap 8 Blood Urea Nitrogen 10 mg/dL Creatinine 0.5 mg/dL Estimated GFR (Cockcroft-Gault) 122.3 BUN/Creatinine Ratio 20 Glucose Level 90 mg/dL Calcium Level 8.4 mg/dL Total Bilirubin 0.3 mg/dL Aspartate Amino Transf (AST/SGOT) 26 U/L Alanine Aminotransferase (ALT/SGPT) 62 U/L Alkaline Phosphatase 90 U/L Total Protein 5.8 g/dL Albumin 2.6 g/dL Albumin/Globulin Ratio 0.8 Valproic Acid (Depakene) Level 36 mcg/mL Valproic Acid Last Dose Date 04/21/21 Valproic Acid Last Dose Time 2100 Current Medications Medications (Trade) Dose Ordered Sig/Mya Route PRN Reason Start Time Stop Time Status Last Admin Dose Admin Acetaminophen (Tylenol) 650 mg PRN Q6HRS PRN PO MILD PAIN / TEMP > 100.3'F 02/16/21 15:45 03/04/21 09:21 DC 02/18/21 06:31 Multi-Ingredient Ointment (Analgesic Campbell) 1 debra PRN QID PRN TP MUSCLE PAIN 02/16/21 15:45 03/04/21 09:21 DC Al Hydroxide/Mg Hydroxide (Mylanta Plus Xs) 15 ml PRN AFTMEALHC PRN PO DYSPEPSIA 02/16/21 15:45 03/04/21 22:05 Magnesium Hydroxide (Milk Of Magnesia) 2,400 mg PRN QHS PRN PO 1ST CHOICE CONSTIPATION 02/16/21 15:45 03/04/21 09:21 DC Acetaminophen (Tylenol) 1,000 mg Q6HRS PRN PO pain or fever 02/16/21 17:00 02/16/21 17:35 DC Acetaminophen (Tylenol) 500 mg Q4HRS PRN PO MILD PAIN 1-3 02/16/21 17:00 02/16/21 17:36 DC Bisacodyl (Dulcolax Tab) 5 mg PRN DAILY PRN PO 2ND CHOICE CONSTIPATION 02/16/21 17:00 03/04/21 09:21 DC Vitamin D (Vitamin D3) 50,000 unit WEEKLY PO 02/22/21 09:00 03/04/21 09:21 DC 02/22/21 07:16 Clonazepam (KlonoPIN) 0.5 mg BID PO 02/16/21 21:00 02/27/21 19:54 DC 02/27/21 10:11 Dicyclomine HCl (Bentyl) 20 mg TID PO 02/16/21 21:00 03/04/21 09:21 DC 03/03/21 21:07 Diphenoxylate HCl/ Atropine (Lomotil) 2 tab BID PO 02/16/21 21:00 03/04/21 09:21 DC 03/03/21 21:08 Divalproex Sodium (Depakote Er) 1,000 mg HS PO 02/16/21 21:00 03/07/21 20:15 DC 03/04/21 21:43 Duloxetine HCl (Cymbalta) 30 mg BID PO 02/16/21 21:00 03/07/21 20:15 DC 03/06/21 08:14 Fluticasone Propionate (Flonase) 2 spray DAILY NS 02/17/21 09:00 04/22/21 08:08 Furosemide (Lasix) 20 mg DAILY PO 02/17/21 09:00 03/04/21 09:21 DC 03/03/21 08:32 Gabapentin (Neurontin) 300 mg QID PO 02/16/21 17:00 04/22/21 19:56 Hydroxyurea (Hydrea) 1,000 mg DAILY PO 02/17/21 09:00 04/22/21 08:07 Levetiracetam (Keppra) 250 mg BID PO 02/16/21 21:00 03/02/21 14:48 DC 03/02/21 09:54 Lidocaine (Lidoderm) 1 patch DAILY TP 02/17/21 09:00 02/17/21 09:24 DC Al Hydroxide/Mg Hydroxide (Mylanta Plus Xs) 15 ml PRN AFTMEALHC PRN PO DYSPEPSIA 02/16/21 17:00 02/16/21 17:36 DC Mirabegron (Myrbetriq) 50 mg DAILY PO 02/17/21 09:00 03/04/21 09:21 DC 03/03/21 08:30 Nystatin (Nystop) 1 debra BID TP 02/16/21 21:00 04/22/21 19:58 Pantoprazole Sodium (Protonix) 40 mg DAILYAC PO 02/17/21 07:30 04/22/21 08:06 Potassium Chloride (Klor-Con) 40 meq DAILY PO 02/17/21 09:00 03/04/21 09:21 DC 03/03/21 08:32 Sulfasalazine (Azulfidine) 500 mg TID PO 02/16/21 21:00 03/07/21 20:15 DC 03/06/21 13:05 Trazodone HCl (Desyrel) 50 mg QHS PO 02/16/21 21:00 04/22/21 19:57 Non-Formulary Medication (Albuterol Sulfate (Albuterol Sulfate Conc Neb Soln)) 1 vial PRN Q4HRS PRN NEB SHORTNESS OF BREATH 02/16/21 17:00 02/16/21 17:49 DC Ascorbic Acid (Vitamin C) 1,000 mg DAILY PO 02/17/21 09:00 03/04/21 09:21 DC 03/03/21 08:34 Diltiazem HCl (Cardizem) 60 mg BID PO 02/16/21 21:00 04/22/21 19:57 Lactobacillus Rhamnosus (Culturelle) 1 cap DAILY PO 02/17/21 09:00 03/04/21 09:21 DC 03/03/21 08:32 Amylase/Lipase/ Protease (Zenpep 10,000) 1 cap TIDBFRMEAL PO 02/17/21 07:30 04/22/21 15:57 Non-Formulary Medication (Magnesium Hydroxide (Milk Of Magnesia)) 2,400 mg PRN DAILY PRN PO CONSTIPATION 02/16/21 17:00 02/16/21 17:37 DC Magnesium Oxide (Magnesium Oxide) 400 mg DAILY PO 02/17/21 09:00 03/04/21 09:21 DC 03/03/21 08:31 Non-Formulary Medication (Methyl Salicylate/ Menthol (Analgesic Campbell)) 1 debra PRN Q6HRS PRN TP MUSCLE PAIN 02/16/21 17:00 02/16/21 17:37 DC Non-Formulary Medication (Umeclidinium Honor (Incruse Ellipta)) 62.5 mcg DAILY IH 02/17/21 09:00 02/16/21 17:49 DC Non-Formulary Medication (Zinc Gluconate ) 50 mg DAILY PO 02/17/21 09:00 02/16/21 17:46 DC Albuterol/ Ipratropium (Duoneb) 3 ml RTQID NEB 02/16/21 20:00 02/17/21 19:52 DC Albuterol Sulfate (Ventolin) 2.5 mg PRN Q4HRS PRN NEB SHORTNESS OF BREATH 02/16/21 18:00 Influenza Virus Vaccine Quadrival (Flulaval Quad [id number] Syringe) 0.5 ml ONCE ONCE VAX IM 02/17/21 09:00 02/17/21 09:01 DC 02/17/21 09:21 Lidocaine (Lidoderm) 1 patch DAILY PRN TP pain 02/17/21 09:30 03/29/21 12:01 DC 03/28/21 08:37 Albuterol/ Ipratropium (Combivent Respimat 20-100 Mcg) 1 puff RTQID INH 02/17/21 20:00 04/22/21 19:58 Sertraline HCl (Zoloft) 25 mg DAILY PO 02/22/21 09:00 02/24/21 10:00 DC 02/24/21 09:59 Sertraline HCl (Zoloft) 50 mg DAILY PO 02/25/21 09:00 03/01/21 18:30 DC 03/01/21 10:07 Olanzapine (ZyPREXA ZYDIS) 5 mg 1X ONCE PO 02/26/21 12:03 02/26/21 12:09 DC 02/26/21 12:25 Clonazepam (KlonoPIN) 0.5 mg DAILY PO 02/28/21 09:00 03/02/21 07:00 DC 03/01/21 10:07 Bupropion HCl (Wellbutrin Xl) 150 mg DAILY PO 03/02/21 09:00 03/08/21 15:46 DC 03/08/21 08:41 Levetiracetam (Keppra) 250 mg DAILY PO 03/03/21 09:00 04/10/21 00:12 DC 04/09/21 08:53 Aripiprazole (Abilify) 5 mg DAILY PO 03/05/21 09:00 04/22/21 08:05 Ondansetron HCl (Zofran Odt) 4 mg PRN Q4HRS PRN PO NAUSEA/VOMITING 03/06/21 19:30 04/02/21 09:23 Potassium Chloride (Klor-Con) 30 meq BID PO 03/07/21 09:00 04/22/21 19:56 Divalproex Sodium (Depakote Er) 1,000 mg 1700 PO 03/08/21 17:00 03/12/21 00:01 DC 03/11/21 17:27 Duloxetine HCl (Cymbalta) 30 mg 0900,1700 PO 03/08/21 17:00 04/22/21 15:57 Sulfasalazine (Azulfidine) 500 mg 0900,1300,1700 PO 03/08/21 09:00 04/22/21 15:58 Bupropion HCl (Wellbutrin Xl) 300 mg DAILY PO 03/09/21 09:00 04/22/21 08:06 Potassium Chloride (Klor-Con) 40 meq 1630,1730 PO 03/08/21 16:30 03/08/21 18:04 DC 03/08/21 16:57 Potassium Chloride (Klor-Con) 40 meq 1700,1800 PO 03/08/21 17:15 03/08/21 18:04 DC 03/08/21 17:56 Divalproex Sodium (Depakote Sprinkles) 500 mg BID PO 03/12/21 09:00 04/19/21 17:44 DC 04/19/21 08:27 Clotrimazole (Mycelex-7) 1 debra QHS VG 03/18/21 21:00 03/25/21 20:59 DC 03/24/21 20:20 Dicyclomine HCl (Bentyl) 20 mg TID PO 03/18/21 21:00 04/22/21 19:57 Diphenoxylate HCl/ Atropine (Lomotil) 2 tab BID PO 03/18/21 21:00 04/22/21 19:57 Lidocaine (Lidoderm) 1 patch PRN DAILY PRN TP pain 03/29/21 12:15 Fluconazole (Diflucan) 100 mg Q72H PO 04/16/21 12:00 04/19/21 12:01 DC 04/19/21 12:07 Divalproex Sodium (Depakote Er) 1,000 mg QHS PO 04/19/21 21:00 04/22/21 19:57 Olanzapine (ZyPREXA ZYDIS) 2.5 mg PRN Q2HR PRN PO PSYCHOSIS 04/22/21 15:45 04/22/21 15:59 Current Medications Medications (Trade) Dose Ordered Sig/Mya Route PRN Reason Start Time Stop Time Status Last Admin Dose Admin Olanzapine (ZyPREXA ZYDIS) 2.5 mg PRN Q2HR PRN PO PSYCHOSIS 04/22/21 15:45 04/22/21 15:59 I have reviewed the current psychotropics carefully including drug interactions. Risk benefit ratio favors no change other than as noted in my dictated progress note. Diagnosis: Problems: (1) Mild cognitive impairment (2) Impulse control disorder, unspecified (3) Anxiety disorder, unspecified (4) Bipolar disorder, curr episode mixed, severe, with psychotic features (5) Bipolar 1 disorder, depressed NITHIN STEVENS MD Apr 22, 2021 20:50
--- NOTE | 2021-04-22 23:11 | NUR ---
Pt delusional this evening, stating that her grandmother was here today. Pt upset that staff does not believe her. Pt stated that her grandmother was born in 1901 and when this RN did the math with her, pt stated that "it was rare but could be possible that her grandmother could be alive at 89 years old." Pt then stated that her "grandmother did but then came back to life." Pt continued to be delusional the rest of the evening. Compliant with whole medications and is currently sleeping.
[2021-04-23 05:39] VITALS: BP 102/67
[2021-04-23 08:01] LABS: BASO % 1 % (0-3); EOS # 0.1 x10^3/uL (0.0-0.7); EOS % 2 % (0-3); HEMATOCRIT 36.4 % (36.0-47.0); HEMOGLOBIN 12.4 g/dL (12.0-15.5); LYMPH # 0.7 x10^3/uL (1.0-4.8); LYMPH % 14 % (24-48); MEAN CORPUSCULAR HEMOGLOBIN 39 pg (25-35); MEAN CORPUSCULAR HGB CONC 34 g/dL (31-37); MEAN CORPUSCULAR VOLUME 115 fL (79-100); MONO # 0.5 x10^3/uL (0.0-1.1); MONO % 10 % (0-9); NEUT # 4.1 x10^3uL (1.8-7.7); NEUT % 74 % (31-73); PLATELET COUNT 266 x10^3/uL (140-400); RED BLOOD COUNT 3.17 x10^6/uL (3.50-5.40); RED CELL DISTRIBUTION WIDTH 13.7 % (11.5-14.5); WHITE BLOOD COUNT 5.5 x10^3/uL (4.0-11.0)
[2021-04-23] MEDS: DIPHENOXYLATE/ATROPINE TABLET. PO SCH ×2 (08:04→19:56)
[2021-04-23] MEDS: LIPASE/PROTEAS/AMYLAS 10/32/42 CAPSULE.DR. PO SCH ×3 (08:04→16:27)
[2021-04-23] MEDS: DICYCLOMINE HCL 20 MG TABLET PO SCH ×3 (08:04→19:56)
[2021-04-23] MEDS: GABAPENTIN 300 MG CAPSULE. PO SCH ×4 (08:05→19:56)
[2021-04-23] MEDS: PANTOPRAZOLE 40 MG TABLET. PO SCH (08:05)
[2021-04-23] MEDS: sulfaSALAzine 500 MG TABLET PO SCH ×3 (08:05→16:28)
[2021-04-23] MEDS: dilTIAZem HCL 30 MG TABLET PO SCH ×2 (08:05→19:57)
[2021-04-23] MEDS: ARIPiprazole 5 MG TABLET PO SCH (08:05)
[2021-04-23] MEDS: POTASSIUM CHLORIDE 10 MEQ TABLET.ER. PO SCH ×2 (08:05→19:56)
[2021-04-23] MEDS: buPROPion XL 300 MG TAB.ER.24H. PO SCH (08:05)
[2021-04-23] MEDS: DULoxetine HCL 30 MG CAPSULE.DR PO SCH ×2 (08:05→16:28)
[2021-04-23] MEDS: HYDROXYUREA 500 MG CAPSULE PO SCH (08:10)
[2021-04-23 08:11] LABS: ALBUMIN 2.8 g/dL (3.4-5.0); ALBUMIN/GLOBULIN RATIO 0.8 (1.0-1.7); CALCIUM 8.6 mg/dL (8.5-10.1); CREATININE 0.5 mg/dL (0.6-1.0); GFR 122.3; POTASSIUM 4.1 mmol/L (3.5-5.1); TOTAL BILIRUBIN 0.5 mg/dL (0.2-1.0); TOTAL PROTEIN 6.3 g/dL (6.4-8.2)
[2021-04-23] MEDS: IPRATROPIUM/ALBUTEROL 20/100mcg/INH INHALER. INH SCH ×4 (08:13→19:57)
[2021-04-23] MEDS: NYSTATIN TOPICAL POWDER 15GM BOTTLE. TP SCH ×2 (08:14→19:57)
[2021-04-23] MEDS: FLUTICASONE 50MCG/NASAL SPRAY 16GM BOTTLE. NS SCH (08:18)
--- NOTE | 2021-04-23 14:24 | NUR ---
Nurse Day Shift Note: Pt presents with neutral mood/affect. Pt is noted to spend time in the day room and resting in her bedroom today. Pt engages with staff when approached. Pt is calm and cooperative today. Pt is medication compliant. Pt slept 9.5 hours last night. Pt's vitals are WNL. Pt continues to have a good appetite. Will continue to monitor.
[2021-04-23 15:40] VITALS: BP 99/63
[2021-04-23] MEDS: DIVALPROEX ER 500 MG TAB.ER.24H PO SCH (19:55)
[2021-04-23] MEDS: traZODone 50 MG TABLET. PO SCH (19:56)
--- NOTE | 2021-04-23 20:36 | PDOC ---
Exam Note: Napoleon Note: Please also refer to the separate dictated note~for this date of service dictated separately.~Patient seen individually. Discussed the patient with Nursing staff reviewed the chart.~Reviewed interim history and current functioning. Reviewed vital signs,~Labs/ Radiology~and current medications noted below. Continue current treatment with the changes noted in the dictated addendum note Assessment: Vital Signs/I&O: Vital Signs Date Time Temp Pulse Resp B/P (MAP) Pulse Ox O2 Delivery O2 Flow Rate FiO2 04/23/21 19:57 75 123/85 04/23/21 15:40 97.8 22 95 04/23/21 05:39 2.0 I & O 04/22/21 04/22/21 04/23/21 15:00 23:00 07:00 Intake Total 960 ml 720 ml Balance 960 ml 720 ml Labs: Laboratory Tests Test 04/23/21 07:30 White Blood Count 5.5 x10^3/uL (4.0-11.0) Red Blood Count 3.17 x10^6/uL (3.50-5.40) L Hemoglobin 12.4 g/dL (12.0-15.5) Hematocrit 36.4 % (36.0-47.0) Mean Corpuscular Volume 115 fL (79-100) H Mean Corpuscular Hemoglobin 39 pg (25-35) H Mean Corpuscular Hemoglobin Concent 34 g/dL (31-37) Red Cell Distribution Width 13.7 % (11.5-14.5) Platelet Count 266 x10^3/uL (140-400) Neutrophils (%) (Auto) 74 % (31-73) H Lymphocytes (%) (Auto) 14 % (24-48) L Monocytes (%) (Auto) 10 % (0-9) H Eosinophils (%) (Auto) 2 % (0-3) Basophils (%) (Auto) 1 % (0-3) Neutrophils # (Auto) 4.1 x10^3uL (1.8-7.7) Lymphocytes # (Auto) 0.7 x10^3/uL (1.0-4.8) L Monocytes # (Auto) 0.5 x10^3/uL (0.0-1.1) Eosinophils # (Auto) 0.1 x10^3/uL (0.0-0.7) Basophils # (Auto) 0.0 x10^3/uL (0.0-0.2) Sodium Level 141 mmol/L (136-145) Potassium Level 4.1 mmol/L (3.5-5.1) Chloride Level 103 mmol/L (98-107) Carbon Dioxide Level 30 mmol/L (21-32) Anion Gap 8 (6-14) Blood Urea Nitrogen 10 mg/dL (7-20) Creatinine 0.5 mg/dL (0.6-1.0) L Estimated GFR (Cockcroft-Gault) 122.3 BUN/Creatinine Ratio 20 (6-20) Glucose Level 92 mg/dL (70-99) Calcium Level 8.6 mg/dL (8.5-10.1) Total Bilirubin 0.5 mg/dL (0.2-1.0) Aspartate Amino Transferase (AST) 18 U/L (15-37) Alanine Aminotransferase (ALT) 47 U/L (14-59) Alkaline Phosphatase 96 U/L (46-116) Total Protein 6.3 g/dL (6.4-8.2) L Albumin 2.8 g/dL (3.4-5.0) L Albumin/Globulin Ratio 0.8 (1.0-1.7) L Current Medications: Meds: Laboratory Tests Test 04/23/21 07:30 White Blood Count 5.5 x10^3/uL Red Blood Count 3.17 x10^6/uL Hemoglobin 12.4 g/dL Hematocrit 36.4 % Mean Corpuscular Volume 115 fL Mean Corpuscular Hemoglobin 39 pg Mean Corpuscular Hemoglobin Concent 34 g/dL Red Cell Distribution Width 13.7 % Platelet Count 266 x10^3/uL Neutrophils (%) (Auto) 74 % Lymphocytes (%) (Auto) 14 % Monocytes (%) (Auto) 10 % Eosinophils (%) (Auto) 2 % Basophils (%) (Auto) 1 % Neutrophils # (Auto) 4.1 x10^3uL Lymphocytes # (Auto) 0.7 x10^3/uL Monocytes # (Auto) 0.5 x10^3/uL Eosinophils # (Auto) 0.1 x10^3/uL Basophils # (Auto) 0.0 x10^3/uL Sodium Level 141 mmol/L Potassium Level 4.1 mmol/L Chloride Level 103 mmol/L Carbon Dioxide Level 30 mmol/L Anion Gap 8 Blood Urea Nitrogen 10 mg/dL Creatinine 0.5 mg/dL Estimated GFR (Cockcroft-Gault) 122.3 BUN/Creatinine Ratio 20 Glucose Level 92 mg/dL Calcium Level 8.6 mg/dL Total Bilirubin 0.5 mg/dL Aspartate Amino Transf (AST/SGOT) 18 U/L Alanine Aminotransferase (ALT/SGPT) 47 U/L Alkaline Phosphatase 96 U/L Total Protein 6.3 g/dL Albumin 2.8 g/dL Albumin/Globulin Ratio 0.8 Current Medications Medications (Trade) Dose Ordered Sig/Mya Route PRN Reason Start Time Stop Time Status Last Admin Dose Admin Acetaminophen (Tylenol) 650 mg PRN Q6HRS PRN PO MILD PAIN / TEMP > 100.3'F 02/16/21 15:45 03/04/21 09:21 DC 02/18/21 06:31 Multi-Ingredient Ointment (Analgesic Fallon) 1 debra PRN QID PRN TP MUSCLE PAIN 02/16/21 15:45 03/04/21 09:21 DC Al Hydroxide/Mg Hydroxide (Mylanta Plus Xs) 15 ml PRN AFTMEALHC PRN PO DYSPEPSIA 02/16/21 15:45 03/04/21 22:05 Magnesium Hydroxide (Milk Of Magnesia) 2,400 mg PRN QHS PRN PO 1ST CHOICE CONSTIPATION 02/16/21 15:45 03/04/21 09:21 DC Acetaminophen (Tylenol) 1,000 mg Q6HRS PRN PO pain or fever 02/16/21 17:00 02/16/21 17:35 DC Acetaminophen (Tylenol) 500 mg Q4HRS PRN PO MILD PAIN 1-3 02/16/21 17:00 02/16/21 17:36 DC Bisacodyl (Dulcolax Tab) 5 mg PRN DAILY PRN PO 2ND CHOICE CONSTIPATION 02/16/21 17:00 03/04/21 09:21 DC Vitamin D (Vitamin D3) 50,000 unit WEEKLY PO 02/22/21 09:00 03/04/21 09:21 DC 02/22/21 07:16 Clonazepam (KlonoPIN) 0.5 mg BID PO 02/16/21 21:00 02/27/21 19:54 DC 02/27/21 10:11 Dicyclomine HCl (Bentyl) 20 mg TID PO 02/16/21 21:00 03/04/21 09:21 DC 03/03/21 21:07 Diphenoxylate HCl/ Atropine (Lomotil) 2 tab BID PO 02/16/21 21:00 03/04/21 09:21 DC 03/03/21 21:08 Divalproex Sodium (Depakote Er) 1,000 mg HS PO 02/16/21 21:00 03/07/21 20:15 DC 03/04/21 21:43 Duloxetine HCl (Cymbalta) 30 mg BID PO 02/16/21 21:00 03/07/21 20:15 DC 03/06/21 08:14 Fluticasone Propionate (Flonase) 2 spray DAILY NS 02/17/21 09:00 04/23/21 08:18 Furosemide (Lasix) 20 mg DAILY PO 02/17/21 09:00 03/04/21 09:21 DC 03/03/21 08:32 Gabapentin (Neurontin) 300 mg QID PO 02/16/21 17:00 04/23/21 19:56 Hydroxyurea (Hydrea) 1,000 mg DAILY PO 02/17/21 09:00 04/23/21 08:10 Levetiracetam (Keppra) 250 mg BID PO 02/16/21 21:00 03/02/21 14:48 DC 03/02/21 09:54 Lidocaine (Lidoderm) 1 patch DAILY TP 02/17/21 09:00 02/17/21 09:24 DC Al Hydroxide/Mg Hydroxide (Mylanta Plus Xs) 15 ml PRN AFTMEALHC PRN PO DYSPEPSIA 02/16/21 17:00 02/16/21 17:36 DC Mirabegron (Myrbetriq) 50 mg DAILY PO 02/17/21 09:00 03/04/21 09:21 DC 03/03/21 08:30 Nystatin (Nystop) 1 debra BID TP 02/16/21 21:00 04/23/21 19:57 Pantoprazole Sodium (Protonix) 40 mg DAILYAC PO 02/17/21 07:30 04/23/21 08:05 Potassium Chloride (Klor-Con) 40 meq DAILY PO 02/17/21 09:00 03/04/21 09:21 DC 03/03/21 08:32 Sulfasalazine (Azulfidine) 500 mg TID PO 02/16/21 21:00 03/07/21 20:15 DC 03/06/21 13:05 Trazodone HCl (Desyrel) 50 mg QHS PO 02/16/21 21:00 04/23/21 19:56 Non-Formulary Medication (Albuterol Sulfate (Albuterol Sulfate Conc Neb Soln)) 1 vial PRN Q4HRS PRN NEB SHORTNESS OF BREATH 02/16/21 17:00 02/16/21 17:49 DC Ascorbic Acid (Vitamin C) 1,000 mg DAILY PO 02/17/21 09:00 03/04/21 09:21 DC 03/03/21 08:34 Diltiazem HCl (Cardizem) 60 mg BID PO 02/16/21 21:00 04/23/21 19:57 Lactobacillus Rhamnosus (Culturelle) 1 cap DAILY PO 02/17/21 09:00 03/04/21 09:21 DC 03/03/21 08:32 Amylase/Lipase/ Protease (Zenpep 10,000) 1 cap TIDBFRMEAL PO 02/17/21 07:30 04/23/21 16:27 Non-Formulary Medication (Magnesium Hydroxide (Milk Of Magnesia)) 2,400 mg PRN DAILY PRN PO CONSTIPATION 02/16/21 17:00 02/16/21 17:37 DC Magnesium Oxide (Magnesium Oxide) 400 mg DAILY PO 02/17/21 09:00 03/04/21 09:21 DC 03/03/21 08:31 Non-Formulary Medication (Methyl Salicylate/ Menthol (Analgesic Fallon)) 1 debra PRN Q6HRS PRN TP MUSCLE PAIN 02/16/21 17:00 02/16/21 17:37 DC Non-Formulary Medication (Umeclidinium [place] (Incruse Ellipta)) 62.5 mcg DAILY IH 02/17/21 09:00 02/16/21 17:49 DC Non-Formulary Medication (Zinc Gluconate ) 50 mg DAILY PO 02/17/21 09:00 02/16/21 17:46 DC Albuterol/ Ipratropium (Duoneb) 3 ml RTQID NEB 02/16/21 20:00 02/17/21 19:52 DC Albuterol Sulfate (Ventolin) 2.5 mg PRN Q4HRS PRN NEB SHORTNESS OF BREATH 02/16/21 18:00 Influenza Virus Vaccine Quadrival (Flulaval Quad [id number] Syringe) 0.5 ml ONCE ONCE VAX IM 02/17/21 09:00 02/17/21 09:01 DC 02/17/21 09:21 Lidocaine (Lidoderm) 1 patch DAILY PRN TP pain 02/17/21 09:30 03/29/21 12:01 DC 03/28/21 08:37 Albuterol/ Ipratropium (Combivent Respimat 20-100 Mcg) 1 puff RTQID INH 02/17/21 20:00 04/23/21 19:57 Sertraline HCl (Zoloft) 25 mg DAILY PO 02/22/21 09:00 02/24/21 10:00 DC 02/24/21 09:59 Sertraline HCl (Zoloft) 50 mg DAILY PO 02/25/21 09:00 03/01/21 18:30 DC 03/01/21 10:07 Olanzapine (ZyPREXA ZYDIS) 5 mg 1X ONCE PO 02/26/21 12:03 02/26/21 12:09 DC 02/26/21 12:25 Clonazepam (KlonoPIN) 0.5 mg DAILY PO 02/28/21 09:00 03/02/21 07:00 DC 03/01/21 10:07 Bupropion HCl (Wellbutrin Xl) 150 mg DAILY PO 03/02/21 09:00 03/08/21 15:46 DC 03/08/21 08:41 Levetiracetam (Keppra) 250 mg DAILY PO 03/03/21 09:00 04/10/21 00:12 DC 04/09/21 08:53 Aripiprazole (Abilify) 5 mg DAILY PO 03/05/21 09:00 04/23/21 08:05 Ondansetron HCl (Zofran Odt) 4 mg PRN Q4HRS PRN PO NAUSEA/VOMITING 03/06/21 19:30 04/02/21 09:23 Potassium Chloride (Klor-Con) 30 meq BID PO 03/07/21 09:00 04/23/21 19:56 Divalproex Sodium (Depakote Er) 1,000 mg 1700 PO 03/08/21 17:00 03/12/21 00:01 DC 03/11/21 17:27 Duloxetine HCl (Cymbalta) 30 mg 0900,1700 PO 03/08/21 17:00 04/23/21 16:28 Sulfasalazine (Azulfidine) 500 mg 0900,1300,1700 PO 03/08/21 09:00 04/23/21 16:28 Bupropion HCl (Wellbutrin Xl) 300 mg DAILY PO 03/09/21 09:00 04/23/21 08:05 Potassium Chloride (Klor-Con) 40 meq 1630,1730 PO 03/08/21 16:30 03/08/21 18:04 DC 03/08/21 16:57 Potassium Chloride (Klor-Con) 40 meq 1700,1800 PO 03/08/21 17:15 03/08/21 18:04 DC 03/08/21 17:56 Divalproex Sodium (Depakote Sprinkles) 500 mg BID PO 03/12/21 09:00 04/19/21 17:44 DC 04/19/21 08:27 Clotrimazole (Mycelex-7) 1 debra QHS VG 03/18/21 21:00 03/25/21 20:59 DC 03/24/21 20:20 Dicyclomine HCl (Bentyl) 20 mg TID PO 03/18/21 21:00 04/23/21 19:56 Diphenoxylate HCl/ Atropine (Lomotil) 2 tab BID PO 03/18/21 21:00 04/23/21 19:56 Lidocaine (Lidoderm) 1 patch PRN DAILY PRN TP pain 03/29/21 12:15 Fluconazole (Diflucan) 100 mg Q72H PO 04/16/21 12:00 04/19/21 12:01 DC 04/19/21 12:07 Divalproex Sodium (Depakote Er) 1,000 mg QHS PO 04/19/21 21:00 04/23/21 19:55 Olanzapine (ZyPREXA ZYDIS) 2.5 mg PRN Q2HR PRN PO PSYCHOSIS 04/22/21 15:45 04/22/21 15:59 I have reviewed the current psychotropics carefully including drug interactions. Risk benefit ratio favors no change other than as noted in my dictated progress note. Diagnosis: Problems: (1) Impulse control disorder, unspecified (2) Mild cognitive impairment (3) Anxiety disorder, unspecified (4) Bipolar disorder, curr episode mixed, severe, with psychotic features (5) Bipolar 1 disorder, depressed NITHIN STEVENS MD Apr 23, 2021 20:36
--- NOTE | 2021-04-23 23:03 | NUR ---
Pt located in her room this evening laying in bed. Pt stated that she asked to go to bed early because it was too loud in the hallway. Pt pleasant and calm. No delusions noted this evening. Compliant with whole medications. Pt currently sleeping.
[2021-04-24 05:55] VITALS: BP 131/74
[2021-04-24 07:12] LABS: VAL ACID 46 mcg/mL (50-100)
[2021-04-24] MEDS: IPRATROPIUM/ALBUTEROL 20/100mcg/INH INHALER. INH SCH ×4 (07:59→20:00)
[2021-04-24] MEDS: NYSTATIN TOPICAL POWDER 15GM BOTTLE. TP SCH ×2 (07:59→20:35)
[2021-04-24] MEDS: FLUTICASONE 50MCG/NASAL SPRAY 16GM BOTTLE. NS SCH (08:00)
[2021-04-24] MEDS: GABAPENTIN 300 MG CAPSULE. PO SCH ×4 (08:00→20:34)
[2021-04-24] MEDS: DIPHENOXYLATE/ATROPINE TABLET. PO SCH ×2 (08:01→20:35)
[2021-04-24] MEDS: DICYCLOMINE HCL 20 MG TABLET PO SCH ×3 (08:01→20:34)
[2021-04-24] MEDS: ARIPiprazole 5 MG TABLET PO SCH (08:01)
[2021-04-24] MEDS: buPROPion XL 300 MG TAB.ER.24H. PO SCH (08:01)
[2021-04-24] MEDS: DULoxetine HCL 30 MG CAPSULE.DR PO SCH ×2 (08:01→16:47)
[2021-04-24] MEDS: sulfaSALAzine 500 MG TABLET PO SCH ×3 (08:01→16:47)
[2021-04-24] MEDS: PANTOPRAZOLE 40 MG TABLET. PO SCH (08:02)
[2021-04-24] MEDS: dilTIAZem HCL 30 MG TABLET PO SCH ×2 (08:02→20:35)
[2021-04-24] MEDS: LIPASE/PROTEAS/AMYLAS 10/32/42 CAPSULE.DR. PO SCH ×3 (08:02→16:46)
[2021-04-24] MEDS: HYDROXYUREA 500 MG CAPSULE PO SCH (08:02)
[2021-04-24] MEDS: POTASSIUM CHLORIDE 10 MEQ TABLET.ER. PO SCH ×2 (08:03→20:34)
--- NOTE | 2021-04-24 08:18 | PDOC ---
Exam Note: Napoleon Note: This note is a late entry for 04/22/2021 covers elements not covered in my initial note. Subjective: The patient was seen individually in the evening of 04/22/2021 with Milly BARR, discussed and reviewed the chart. The patient slept 8 hours previous night. I was called as an emergency in the afternoon by Nara BARR. The patient appeared more confused, delusional, believed other patients were relative. She was quite obsessive about this. Valproic acid level is 36 subtherapeutic even though the prior level was around 57 and we have not changed the dosage. We will repeat a level on 04/24 and increase Depakote if it is still subtherapeutic. CBC, CMP, UA within the last 24 hours has been unremarkable even though I had ordered it initially. Review of Systems: Impaired ambulation, in wheelchair. Shortness of breath on O2 supplements. No CV, , eye, ENT system symptoms on review. Mental Status Exam: The patient is oriented to herself and situation. Speech has some latency. Often response is coherent. Association is somewhat loose, distractible, anxious still somewhat delusional. Abstraction fair. Computation impaired. Language function intact. Attention span short. Mood and affect withdrawn. No suicidal or homicidal ideation. Laboratory Data: Reviewed. Impression: Bipolar disorder, depressed. Anxiety disorder unspecified. Impulse control disorder unspecified. Plan: No change from initial note. Repeat valproic acid level on 04/24. Adjust to reach therapeutic level. Maintain Cymbalta, gabapentin, trazodone, Wellbutrin and Abilify unchanged. Assessment: Vital Signs/I&O: Vital Signs Date Time Temp Pulse Resp B/P (MAP) Pulse Ox O2 Delivery O2 Flow Rate FiO2 04/24/21 08:02 93 131/74 04/24/21 05:55 97.8 20 92 2.0 I & O 04/23/21 04/23/21 04/24/21 15:00 23:00 07:00 Intake Total 720 ml 480 ml Balance 720 ml 480 ml Labs: Laboratory Tests Test 04/24/21 05:47 Valproic Acid Level 46 mcg/mL (50-100) L Valproic Acid Last Dose Date 04/23/21 Valproic Acid Last Dose Time 2100 Current Medications: Meds: Laboratory Tests Test 04/24/21 05:47 Valproic Acid (Depakene) Level 46 mcg/mL Valproic Acid Last Dose Date 04/23/21 Valproic Acid Last Dose Time 2100 Current Medications Medications (Trade) Dose Ordered Sig/Mya Route PRN Reason Start Time Stop Time Status Last Admin Dose Admin Acetaminophen (Tylenol) 650 mg PRN Q6HRS PRN PO MILD PAIN / TEMP > 100.3'F 02/16/21 15:45 03/04/21 09:21 DC 02/18/21 06:31 Multi-Ingredient Ointment (Analgesic [place]) 1 debra PRN QID PRN TP MUSCLE PAIN 02/16/21 15:45 03/04/21 09:21 DC Al Hydroxide/Mg Hydroxide (Mylanta Plus Xs) 15 ml PRN AFTMEALHC PRN PO DYSPEPSIA 02/16/21 15:45 03/04/21 22:05 Magnesium Hydroxide (Milk Of Magnesia) 2,400 mg PRN QHS PRN PO 1ST CHOICE CONSTIPATION 02/16/21 15:45 03/04/21 09:21 DC Acetaminophen (Tylenol) 1,000 mg Q6HRS PRN PO pain or fever 02/16/21 17:00 02/16/21 17:35 DC Acetaminophen (Tylenol) 500 mg Q4HRS PRN PO MILD PAIN 1-3 02/16/21 17:00 02/16/21 17:36 DC Bisacodyl (Dulcolax Tab) 5 mg PRN DAILY PRN PO 2ND CHOICE CONSTIPATION 02/16/21 17:00 03/04/21 09:21 DC Vitamin D (Vitamin D3) 50,000 unit WEEKLY PO 02/22/21 09:00 03/04/21 09:21 DC 02/22/21 07:16 Clonazepam (KlonoPIN) 0.5 mg BID PO 02/16/21 21:00 02/27/21 19:54 DC 02/27/21 10:11 Dicyclomine HCl (Bentyl) 20 mg TID PO 02/16/21 21:00 03/04/21 09:21 DC 03/03/21 21:07 Diphenoxylate HCl/ Atropine (Lomotil) 2 tab BID PO 02/16/21 21:00 03/04/21 09:21 DC 03/03/21 21:08 Divalproex Sodium (Depakote Er) 1,000 mg HS PO 02/16/21 21:00 03/07/21 20:15 DC 03/04/21 21:43 Duloxetine HCl (Cymbalta) 30 mg BID PO 02/16/21 21:00 03/07/21 20:15 DC 03/06/21 08:14 Fluticasone Propionate (Flonase) 2 spray DAILY NS 02/17/21 09:00 04/24/21 08:00 Furosemide (Lasix) 20 mg DAILY PO 02/17/21 09:00 03/04/21 09:21 DC 03/03/21 08:32 Gabapentin (Neurontin) 300 mg QID PO 02/16/21 17:00 04/24/21 08:00 Hydroxyurea (Hydrea) 1,000 mg DAILY PO 02/17/21 09:00 04/24/21 08:02 Levetiracetam (Keppra) 250 mg BID PO 02/16/21 21:00 03/02/21 14:48 DC 03/02/21 09:54 Lidocaine (Lidoderm) 1 patch DAILY TP 02/17/21 09:00 02/17/21 09:24 DC Al Hydroxide/Mg Hydroxide (Mylanta Plus Xs) 15 ml PRN AFTMEALHC PRN PO DYSPEPSIA 02/16/21 17:00 02/16/21 17:36 DC Mirabegron (Myrbetriq) 50 mg DAILY PO 02/17/21 09:00 03/04/21 09:21 DC 03/03/21 08:30 Nystatin (Nystop) 1 debra BID TP 02/16/21 21:00 04/24/21 07:59 Pantoprazole Sodium (Protonix) 40 mg DAILYAC PO 02/17/21 07:30 04/24/21 08:02 Potassium Chloride (Klor-Con) 40 meq DAILY PO 02/17/21 09:00 03/04/21 09:21 DC 03/03/21 08:32 Sulfasalazine (Azulfidine) 500 mg TID PO 02/16/21 21:00 03/07/21 20:15 DC 03/06/21 13:05 Trazodone HCl (Desyrel) 50 mg QHS PO 02/16/21 21:00 04/23/21 19:56 Non-Formulary Medication (Albuterol Sulfate (Albuterol Sulfate Conc Neb Soln)) 1 vial PRN Q4HRS PRN NEB SHORTNESS OF BREATH 02/16/21 17:00 02/16/21 17:49 DC Ascorbic Acid (Vitamin C) 1,000 mg DAILY PO 02/17/21 09:00 03/04/21 09:21 DC 03/03/21 08:34 Diltiazem HCl (Cardizem) 60 mg BID PO 02/16/21 21:00 04/24/21 08:02 Lactobacillus Rhamnosus (Culturelle) 1 cap DAILY PO 02/17/21 09:00 03/04/21 09:21 DC 03/03/21 08:32 Amylase/Lipase/ Protease (Zenpep 10,000) 1 cap TIDBFRMEAL PO 02/17/21 07:30 04/24/21 08:02 Non-Formulary Medication (Magnesium Hydroxide (Milk Of Magnesia)) 2,400 mg PRN DAILY PRN PO CONSTIPATION 02/16/21 17:00 02/16/21 17:37 DC Magnesium Oxide (Magnesium Oxide) 400 mg DAILY PO 02/17/21 09:00 03/04/21 09:21 DC 03/03/21 08:31 Non-Formulary Medication (Methyl Salicylate/ Menthol (Analgesic Viola)) 1 debra PRN Q6HRS PRN TP MUSCLE PAIN 02/16/21 17:00 02/16/21 17:37 DC Non-Formulary Medication (Umeclidinium [place] (Incruse Ellipta)) 62.5 mcg DAILY IH 02/17/21 09:00 02/16/21 17:49 DC Non-Formulary Medication (Zinc Gluconate ) 50 mg DAILY PO 02/17/21 09:00 02/16/21 17:46 DC Albuterol/ Ipratropium (Duoneb) 3 ml RTQID NEB 02/16/21 20:00 02/17/21 19:52 DC Albuterol Sulfate (Ventolin) 2.5 mg PRN Q4HRS PRN NEB SHORTNESS OF BREATH 02/16/21 18:00 Influenza Virus Vaccine Quadrival (Flulaval Quad [id number] Syringe) 0.5 ml ONCE ONCE VAX IM 02/17/21 09:00 02/17/21 09:01 DC 02/17/21 09:21 Lidocaine (Lidoderm) 1 patch DAILY PRN TP pain 02/17/21 09:30 03/29/21 12:01 DC 03/28/21 08:37 Albuterol/ Ipratropium (Combivent Respimat 20-100 Mcg) 1 puff RTQID INH 02/17/21 20:00 04/24/21 07:59 Sertraline HCl (Zoloft) 25 mg DAILY PO 02/22/21 09:00 02/24/21 10:00 DC 02/24/21 09:59 Sertraline HCl (Zoloft) 50 mg DAILY PO 02/25/21 09:00 03/01/21 18:30 DC 03/01/21 10:07 Olanzapine (ZyPREXA ZYDIS) 5 mg 1X ONCE PO 02/26/21 12:03 02/26/21 12:09 DC 02/26/21 12:25 Clonazepam (KlonoPIN) 0.5 mg DAILY PO 02/28/21 09:00 03/02/21 07:00 DC 03/01/21 10:07 Bupropion HCl (Wellbutrin Xl) 150 mg DAILY PO 03/02/21 09:00 03/08/21 15:46 DC 03/08/21 08:41 Levetiracetam (Keppra) 250 mg DAILY PO 03/03/21 09:00 04/10/21 00:12 DC 04/09/21 08:53 Aripiprazole (Abilify) 5 mg DAILY PO 03/05/21 09:00 04/24/21 08:01 Ondansetron HCl (Zofran Odt) 4 mg PRN Q4HRS PRN PO NAUSEA/VOMITING 03/06/21 19:30 04/02/21 09:23 Potassium Chloride (Klor-Con) 30 meq BID PO 03/07/21 09:00 04/24/21 08:03 Divalproex Sodium (Depakote Er) 1,000 mg 1700 PO 03/08/21 17:00 03/12/21 00:01 DC 03/11/21 17:27 Duloxetine HCl (Cymbalta) 30 mg 0900,1700 PO 03/08/21 17:00 04/24/21 08:01 Sulfasalazine (Azulfidine) 500 mg 0900,1300,1700 PO 03/08/21 09:00 04/24/21 08:01 Bupropion HCl (Wellbutrin Xl) 300 mg DAILY PO 03/09/21 09:00 04/24/21 08:01 Potassium Chloride (Klor-Con) 40 meq 1630,1730 PO 03/08/21 16:30 03/08/21 18:04 DC 03/08/21 16:57 Potassium Chloride (Klor-Con) 40 meq 1700,1800 PO 03/08/21 17:15 03/08/21 18:04 DC 03/08/21 17:56 Divalproex Sodium (Depakote Sprinkles) 500 mg BID PO 03/12/21 09:00 04/19/21 17:44 DC 04/19/21 08:27 Clotrimazole (Mycelex-7) 1 debra QHS VG 03/18/21 21:00 03/25/21 20:59 DC 03/24/21 20:20 Dicyclomine HCl (Bentyl) 20 mg TID PO 03/18/21 21:00 04/24/21 08:01 Diphenoxylate HCl/ Atropine (Lomotil) 2 tab BID PO 03/18/21 21:00 04/24/21 08:01 Lidocaine (Lidoderm) 1 patch PRN DAILY PRN TP pain 03/29/21 12:15 Fluconazole (Diflucan) 100 mg Q72H PO 04/16/21 12:00 04/19/21 12:01 DC 04/19/21 12:07 Divalproex Sodium (Depakote Er) 1,000 mg QHS PO 04/19/21 21:00 04/23/21 19:55 Olanzapine (ZyPREXA ZYDIS) 2.5 mg PRN Q2HR PRN PO PSYCHOSIS 04/22/21 15:45 04/22/21 15:59 I have reviewed the current psychotropics carefully including drug interactions. Risk benefit ratio favors no change other than as noted in my dictated progress note. Diagnosis: Problems: (1) Impulse control disorder, unspecified (2) Mild cognitive impairment (3) Anxiety disorder, unspecified (4) Bipolar disorder, curr episode mixed, severe, with psychotic features (5) Bipolar 1 disorder, depressed HILDA,MAN M MD Apr 24, 2021 08:18
--- NOTE | 2021-04-24 08:34 | PDOC ---
Exam Note: [place] Note: This note is a late entry for 04/23/2021 covers elements not covered in my initial note. Subjective: The patient was seen individually in the evening of 04/23/2021 with Milly BARR, discussed and reviewed the chart. The patient slept 9-1/2 hours previous night. Previous night the patient was quite delusional, believes family members were here on the unit but today during the day she has done better. We will check valproic acid level in the morning. Review of Systems: Impaired ambulation, in wheelchair. Shortness of breath on O2 supplements. No CV, , eye, ENT system symptoms on review. Mental Status Exam: The patient is oriented to herself and situation. Speech coherent. Abstraction fair. Computation impaired. Language function intact. Attention span short. Mood and affect withdrawn. No suicidal or homicidal ideation. When I questioned the patient closely about delusions, about family members being on the unit, she was not as adamant on this today as compared to yesterday. Laboratory Data: Reviewed. Impression: Bipolar disorder, depressed. Anxiety disorder unspecified. Impulse control disorder unspecified. Plan: No change from initial note. Assessment: Vital Signs/I&O: Vital Signs Date Time Temp Pulse Resp B/P (MAP) Pulse Ox O2 Delivery O2 Flow Rate FiO2 04/24/21 08:02 93 131/74 04/24/21 05:55 97.8 20 92 2.0 I & O 04/23/21 04/23/21 04/24/21 15:00 23:00 07:00 Intake Total 720 ml 480 ml Balance 720 ml 480 ml Labs: Laboratory Tests Test 04/24/21 05:47 Valproic Acid Level 46 mcg/mL (50-100) L Valproic Acid Last Dose Date 04/23/21 Valproic Acid Last Dose Time 2100 Current Medications: Meds: Laboratory Tests Test 04/24/21 05:47 Valproic Acid (Depakene) Level 46 mcg/mL Valproic Acid Last Dose Date 04/23/21 Valproic Acid Last Dose Time 2100 Current Medications Medications (Trade) Dose Ordered Sig/Mya Route PRN Reason Start Time Stop Time Status Last Admin Dose Admin Acetaminophen (Tylenol) 650 mg PRN Q6HRS PRN PO MILD PAIN / TEMP > 100.3'F 02/16/21 15:45 03/04/21 09:21 DC 02/18/21 06:31 Multi-Ingredient Ointment (Analgesic [place]) 1 debra PRN QID PRN TP MUSCLE PAIN 02/16/21 15:45 03/04/21 09:21 DC Al Hydroxide/Mg Hydroxide (Mylanta Plus Xs) 15 ml PRN AFTMEALHC PRN PO DYSPEPSIA 02/16/21 15:45 03/04/21 22:05 Magnesium Hydroxide (Milk Of Magnesia) 2,400 mg PRN QHS PRN PO 1ST CHOICE CONSTIPATION 02/16/21 15:45 03/04/21 09:21 DC Acetaminophen (Tylenol) 1,000 mg Q6HRS PRN PO pain or fever 02/16/21 17:00 02/16/21 17:35 DC Acetaminophen (Tylenol) 500 mg Q4HRS PRN PO MILD PAIN 1-3 02/16/21 17:00 02/16/21 17:36 DC Bisacodyl (Dulcolax Tab) 5 mg PRN DAILY PRN PO 2ND CHOICE CONSTIPATION 02/16/21 17:00 03/04/21 09:21 DC Vitamin D (Vitamin D3) 50,000 unit WEEKLY PO 02/22/21 09:00 03/04/21 09:21 DC 02/22/21 07:16 Clonazepam (KlonoPIN) 0.5 mg BID PO 02/16/21 21:00 02/27/21 19:54 DC 02/27/21 10:11 Dicyclomine HCl (Bentyl) 20 mg TID PO 02/16/21 21:00 03/04/21 09:21 DC 03/03/21 21:07 Diphenoxylate HCl/ Atropine (Lomotil) 2 tab BID PO 02/16/21 21:00 03/04/21 09:21 DC 03/03/21 21:08 Divalproex Sodium (Depakote Er) 1,000 mg HS PO 02/16/21 21:00 03/07/21 20:15 DC 03/04/21 21:43 Duloxetine HCl (Cymbalta) 30 mg BID PO 02/16/21 21:00 03/07/21 20:15 DC 03/06/21 08:14 Fluticasone Propionate (Flonase) 2 spray DAILY NS 02/17/21 09:00 04/24/21 08:00 Furosemide (Lasix) 20 mg DAILY PO 02/17/21 09:00 03/04/21 09:21 DC 03/03/21 08:32 Gabapentin (Neurontin) 300 mg QID PO 02/16/21 17:00 04/24/21 08:00 Hydroxyurea (Hydrea) 1,000 mg DAILY PO 02/17/21 09:00 04/24/21 08:02 Levetiracetam (Keppra) 250 mg BID PO 02/16/21 21:00 03/02/21 14:48 DC 03/02/21 09:54 Lidocaine (Lidoderm) 1 patch DAILY TP 02/17/21 09:00 02/17/21 09:24 DC Al Hydroxide/Mg Hydroxide (Mylanta Plus Xs) 15 ml PRN AFTMEALHC PRN PO DYSPEPSIA 02/16/21 17:00 02/16/21 17:36 DC Mirabegron (Myrbetriq) 50 mg DAILY PO 02/17/21 09:00 03/04/21 09:21 DC 03/03/21 08:30 Nystatin (Nystop) 1 debra BID TP 02/16/21 21:00 04/24/21 07:59 Pantoprazole Sodium (Protonix) 40 mg DAILYAC PO 02/17/21 07:30 04/24/21 08:02 Potassium Chloride (Klor-Con) 40 meq DAILY PO 02/17/21 09:00 03/04/21 09:21 DC 03/03/21 08:32 Sulfasalazine (Azulfidine) 500 mg TID PO 02/16/21 21:00 03/07/21 20:15 DC 03/06/21 13:05 Trazodone HCl (Desyrel) 50 mg QHS PO 02/16/21 21:00 04/23/21 19:56 Non-Formulary Medication (Albuterol Sulfate (Albuterol Sulfate Conc Neb Soln)) 1 vial PRN Q4HRS PRN NEB SHORTNESS OF BREATH 02/16/21 17:00 02/16/21 17:49 DC Ascorbic Acid (Vitamin C) 1,000 mg DAILY PO 02/17/21 09:00 03/04/21 09:21 DC 03/03/21 08:34 Diltiazem HCl (Cardizem) 60 mg BID PO 02/16/21 21:00 04/24/21 08:02 Lactobacillus Rhamnosus (Culturelle) 1 cap DAILY PO 02/17/21 09:00 03/04/21 09:21 DC 03/03/21 08:32 Amylase/Lipase/ Protease (Zenpep 10,000) 1 cap TIDBFRMEAL PO 02/17/21 07:30 04/24/21 08:02 Non-Formulary Medication (Magnesium Hydroxide (Milk Of Magnesia)) 2,400 mg PRN DAILY PRN PO CONSTIPATION 02/16/21 17:00 02/16/21 17:37 DC Magnesium Oxide (Magnesium Oxide) 400 mg DAILY PO 02/17/21 09:00 03/04/21 09:21 DC 03/03/21 08:31 Non-Formulary Medication (Methyl Salicylate/ Menthol (Analgesic [place])) 1 debra PRN Q6HRS PRN TP MUSCLE PAIN 02/16/21 17:00 02/16/21 17:37 DC Non-Formulary Medication (Umeclidinium [place] (Incruse Ellipta)) 62.5 mcg DAILY IH 02/17/21 09:00 02/16/21 17:49 DC Non-Formulary Medication (Zinc Gluconate ) 50 mg DAILY PO 02/17/21 09:00 02/16/21 17:46 DC Albuterol/ Ipratropium (Duoneb) 3 ml RTQID NEB 02/16/21 20:00 02/17/21 19:52 DC Albuterol Sulfate (Ventolin) 2.5 mg PRN Q4HRS PRN NEB SHORTNESS OF BREATH 02/16/21 18:00 Influenza Virus Vaccine Quadrival (Flulaval Quad [id number] Syringe) 0.5 ml ONCE ONCE VAX IM 02/17/21 09:00 02/17/21 09:01 DC 02/17/21 09:21 Lidocaine (Lidoderm) 1 patch DAILY PRN TP pain 02/17/21 09:30 03/29/21 12:01 DC 03/28/21 08:37 Albuterol/ Ipratropium (Combivent Respimat 20-100 Mcg) 1 puff RTQID INH 02/17/21 20:00 04/24/21 07:59 Sertraline HCl (Zoloft) 25 mg DAILY PO 02/22/21 09:00 02/24/21 10:00 DC 02/24/21 09:59 Sertraline HCl (Zoloft) 50 mg DAILY PO 02/25/21 09:00 03/01/21 18:30 DC 03/01/21 10:07 Olanzapine (ZyPREXA ZYDIS) 5 mg 1X ONCE PO 02/26/21 12:03 02/26/21 12:09 DC 02/26/21 12:25 Clonazepam (KlonoPIN) 0.5 mg DAILY PO 02/28/21 09:00 03/02/21 07:00 DC 03/01/21 10:07 Bupropion HCl (Wellbutrin Xl) 150 mg DAILY PO 03/02/21 09:00 03/08/21 15:46 DC 03/08/21 08:41 Levetiracetam (Keppra) 250 mg DAILY PO 03/03/21 09:00 04/10/21 00:12 DC 04/09/21 08:53 Aripiprazole (Abilify) 5 mg DAILY PO 03/05/21 09:00 04/24/21 08:01 Ondansetron HCl (Zofran Odt) 4 mg PRN Q4HRS PRN PO NAUSEA/VOMITING 03/06/21 19:30 04/02/21 09:23 Potassium Chloride (Klor-Con) 30 meq BID PO 03/07/21 09:00 04/24/21 08:03 Divalproex Sodium (Depakote Er) 1,000 mg 1700 PO 03/08/21 17:00 03/12/21 00:01 DC 03/11/21 17:27 Duloxetine HCl (Cymbalta) 30 mg 0900,1700 PO 03/08/21 17:00 04/24/21 08:01 Sulfasalazine (Azulfidine) 500 mg 0900,1300,1700 PO 03/08/21 09:00 04/24/21 08:01 Bupropion HCl (Wellbutrin Xl) 300 mg DAILY PO 03/09/21 09:00 04/24/21 08:01 Potassium Chloride (Klor-Con) 40 meq 1630,1730 PO 03/08/21 16:30 03/08/21 18:04 DC 03/08/21 16:57 Potassium Chloride (Klor-Con) 40 meq 1700,1800 PO 03/08/21 17:15 03/08/21 18:04 DC 03/08/21 17:56 Divalproex Sodium (Depakote Sprinkles) 500 mg BID PO 03/12/21 09:00 04/19/21 17:44 DC 04/19/21 08:27 Clotrimazole (Mycelex-7) 1 debra QHS VG 03/18/21 21:00 03/25/21 20:59 DC 03/24/21 20:20 Dicyclomine HCl (Bentyl) 20 mg TID PO 03/18/21 21:00 04/24/21 08:01 Diphenoxylate HCl/ Atropine (Lomotil) 2 tab BID PO 03/18/21 21:00 04/24/21 08:01 Lidocaine (Lidoderm) 1 patch PRN DAILY PRN TP pain 03/29/21 12:15 Fluconazole (Diflucan) 100 mg Q72H PO 04/16/21 12:00 04/19/21 12:01 DC 04/19/21 12:07 Divalproex Sodium (Depakote Er) 1,000 mg QHS PO 04/19/21 21:00 04/23/21 19:55 Olanzapine (ZyPREXA ZYDIS) 2.5 mg PRN Q2HR PRN PO PSYCHOSIS 04/22/21 15:45 04/22/21 15:59 I have reviewed the current psychotropics carefully including drug interactions. Risk benefit ratio favors no change other than as noted in my dictated progress note. Diagnosis: Problems: (1) Impulse control disorder, unspecified (2) Mild cognitive impairment (3) Anxiety disorder, unspecified (4) Bipolar disorder, curr episode mixed, severe, with psychotic features (5) Bipolar 1 disorder, depressed NITHIN STEVENS MD Apr 24, 2021 08:34
--- NOTE | 2021-04-24 12:57 | NUR ---
Nurse Day Shift Note: Pt presents with neutral mood/affect. Pt is noted to spend time in the hallway with peers and in her bedroom resting. Pt is medication compliant. Pt is able to make needs known to staff. Pt is pleasant. Pt is low-[place] on the unit so far today. Pt's vitals are WNL. Pt slept 7.25 hours. Pt continues to have a good appetite. Will continue to monitor.
[2021-04-24 15:43] VITALS: BP 123/78
--- NOTE | 2021-04-24 20:07 | PDOC ---
Exam Note: Napoleon Note: Please also refer to the separate dictated note~for this date of service dictated separately.~Patient seen individually. Discussed the patient with Nursing staff reviewed the chart.~Reviewed interim history and current functioning. Reviewed vital signs,~Labs/ Radiology~and current medications noted below. Continue current treatment with the changes noted in the dictated addendum note Assessment: Vital Signs/I&O: Vital Signs Date Time Temp Pulse Resp B/P (MAP) Pulse Ox O2 Delivery O2 Flow Rate FiO2 04/24/21 15:43 98.6 97 18 123/78 (93) 92 Nasal Cannula 2.0 I & O 04/23/21 04/23/21 04/24/21 15:00 23:00 07:00 Intake Total 720 ml 480 ml Balance 720 ml 480 ml Labs: Laboratory Tests Test 04/24/21 05:47 Valproic Acid Level 46 mcg/mL (50-100) L Valproic Acid Last Dose Date 04/23/21 Valproic Acid Last Dose Time 2100 Current Medications: Meds: Laboratory Tests Test 04/24/21 05:47 Valproic Acid (Depakene) Level 46 mcg/mL Valproic Acid Last Dose Date 04/23/21 Valproic Acid Last Dose Time 2100 Current Medications Medications (Trade) Dose Ordered Sig/Mya Route PRN Reason Start Time Stop Time Status Last Admin Dose Admin Acetaminophen (Tylenol) 650 mg PRN Q6HRS PRN PO MILD PAIN / TEMP > 100.3'F 02/16/21 15:45 03/04/21 09:21 DC 02/18/21 06:31 Multi-Ingredient Ointment (Analgesic [place]) 1 debra PRN QID PRN TP MUSCLE PAIN 02/16/21 15:45 03/04/21 09:21 DC Al Hydroxide/Mg Hydroxide (Mylanta Plus Xs) 15 ml PRN AFTMEALHC PRN PO DYSPEPSIA 02/16/21 15:45 03/04/21 22:05 Magnesium Hydroxide (Milk Of Magnesia) 2,400 mg PRN QHS PRN PO 1ST CHOICE CONSTIPATION 02/16/21 15:45 03/04/21 09:21 DC Acetaminophen (Tylenol) 1,000 mg Q6HRS PRN PO pain or fever 02/16/21 17:00 02/16/21 17:35 DC Acetaminophen (Tylenol) 500 mg Q4HRS PRN PO MILD PAIN 1-3 02/16/21 17:00 02/16/21 17:36 DC Bisacodyl (Dulcolax Tab) 5 mg PRN DAILY PRN PO 2ND CHOICE CONSTIPATION 02/16/21 17:00 03/04/21 09:21 DC Vitamin D (Vitamin D3) 50,000 unit WEEKLY PO 02/22/21 09:00 03/04/21 09:21 DC 02/22/21 07:16 Clonazepam (KlonoPIN) 0.5 mg BID PO 02/16/21 21:00 02/27/21 19:54 DC 02/27/21 10:11 Dicyclomine HCl (Bentyl) 20 mg TID PO 02/16/21 21:00 03/04/21 09:21 DC 03/03/21 21:07 Diphenoxylate HCl/ Atropine (Lomotil) 2 tab BID PO 02/16/21 21:00 03/04/21 09:21 DC 03/03/21 21:08 Divalproex Sodium (Depakote Er) 1,000 mg HS PO 02/16/21 21:00 03/07/21 20:15 DC 03/04/21 21:43 Duloxetine HCl (Cymbalta) 30 mg BID PO 02/16/21 21:00 03/07/21 20:15 DC 03/06/21 08:14 Fluticasone Propionate (Flonase) 2 spray DAILY NS 02/17/21 09:00 04/24/21 08:00 Furosemide (Lasix) 20 mg DAILY PO 02/17/21 09:00 03/04/21 09:21 DC 03/03/21 08:32 Gabapentin (Neurontin) 300 mg QID PO 02/16/21 17:00 04/24/21 16:46 Hydroxyurea (Hydrea) 1,000 mg DAILY PO 02/17/21 09:00 04/24/21 08:02 Levetiracetam (Keppra) 250 mg BID PO 02/16/21 21:00 03/02/21 14:48 DC 03/02/21 09:54 Lidocaine (Lidoderm) 1 patch DAILY TP 02/17/21 09:00 02/17/21 09:24 DC Al Hydroxide/Mg Hydroxide (Mylanta Plus Xs) 15 ml PRN AFTMEALHC PRN PO DYSPEPSIA 02/16/21 17:00 02/16/21 17:36 DC Mirabegron (Myrbetriq) 50 mg DAILY PO 02/17/21 09:00 03/04/21 09:21 DC 03/03/21 08:30 Nystatin (Nystop) 1 debra BID TP 02/16/21 21:00 04/24/21 07:59 Pantoprazole Sodium (Protonix) 40 mg DAILYAC PO 02/17/21 07:30 04/24/21 08:02 Potassium Chloride (Klor-Con) 40 meq DAILY PO 02/17/21 09:00 03/04/21 09:21 DC 03/03/21 08:32 Sulfasalazine (Azulfidine) 500 mg TID PO 02/16/21 21:00 03/07/21 20:15 DC 03/06/21 13:05 Trazodone HCl (Desyrel) 50 mg QHS PO 02/16/21 21:00 04/23/21 19:56 Non-Formulary Medication (Albuterol Sulfate (Albuterol Sulfate Conc Neb Soln)) 1 vial PRN Q4HRS PRN NEB SHORTNESS OF BREATH 02/16/21 17:00 02/16/21 17:49 DC Ascorbic Acid (Vitamin C) 1,000 mg DAILY PO 02/17/21 09:00 03/04/21 09:21 DC 03/03/21 08:34 Diltiazem HCl (Cardizem) 60 mg BID PO 02/16/21 21:00 04/24/21 08:02 Lactobacillus Rhamnosus (Culturelle) 1 cap DAILY PO 02/17/21 09:00 03/04/21 09:21 DC 03/03/21 08:32 Amylase/Lipase/ Protease (Zenpep 10,000) 1 cap TIDBFRMEAL PO 02/17/21 07:30 04/24/21 16:46 Non-Formulary Medication (Magnesium Hydroxide (Milk Of Magnesia)) 2,400 mg PRN DAILY PRN PO CONSTIPATION 02/16/21 17:00 02/16/21 17:37 DC Magnesium Oxide (Magnesium Oxide) 400 mg DAILY PO 02/17/21 09:00 03/04/21 09:21 DC 03/03/21 08:31 Non-Formulary Medication (Methyl Salicylate/ Menthol (Analgesic [place])) 1 debra PRN Q6HRS PRN TP MUSCLE PAIN 02/16/21 17:00 02/16/21 17:37 DC Non-Formulary Medication (Umeclidinium [place] (Incruse Ellipta)) 62.5 mcg DAILY IH 02/17/21 09:00 02/16/21 17:49 DC Non-Formulary Medication (Zinc Gluconate ) 50 mg DAILY PO 02/17/21 09:00 02/16/21 17:46 DC Albuterol/ Ipratropium (Duoneb) 3 ml RTQID NEB 02/16/21 20:00 02/17/21 19:52 DC Albuterol Sulfate (Ventolin) 2.5 mg PRN Q4HRS PRN NEB SHORTNESS OF BREATH 02/16/21 18:00 Influenza Virus Vaccine Quadrival (Flulaval Quad [id number] Syringe) 0.5 ml ONCE ONCE VAX IM 02/17/21 09:00 02/17/21 09:01 DC 02/17/21 09:21 Lidocaine (Lidoderm) 1 patch DAILY PRN TP pain 02/17/21 09:30 03/29/21 12:01 DC 03/28/21 08:37 Albuterol/ Ipratropium (Combivent Respimat 20-100 Mcg) 1 puff RTQID INH 02/17/21 20:00 04/24/21 16:45 Sertraline HCl (Zoloft) 25 mg DAILY PO 02/22/21 09:00 02/24/21 10:00 DC 02/24/21 09:59 Sertraline HCl (Zoloft) 50 mg DAILY PO 02/25/21 09:00 03/01/21 18:30 DC 03/01/21 10:07 Olanzapine (ZyPREXA ZYDIS) 5 mg 1X ONCE PO 02/26/21 12:03 02/26/21 12:09 DC 02/26/21 12:25 Clonazepam (KlonoPIN) 0.5 mg DAILY PO 02/28/21 09:00 03/02/21 07:00 DC 03/01/21 10:07 Bupropion HCl (Wellbutrin Xl) 150 mg DAILY PO 03/02/21 09:00 03/08/21 15:46 DC 03/08/21 08:41 Levetiracetam (Keppra) 250 mg DAILY PO 03/03/21 09:00 04/10/21 00:12 DC 04/09/21 08:53 Aripiprazole (Abilify) 5 mg DAILY PO 03/05/21 09:00 04/24/21 08:01 Ondansetron HCl (Zofran Odt) 4 mg PRN Q4HRS PRN PO NAUSEA/VOMITING 03/06/21 19:30 04/02/21 09:23 Potassium Chloride (Klor-Con) 30 meq BID PO 03/07/21 09:00 04/24/21 08:03 Divalproex Sodium (Depakote Er) 1,000 mg 1700 PO 03/08/21 17:00 03/12/21 00:01 DC 03/11/21 17:27 Duloxetine HCl (Cymbalta) 30 mg 0900,1700 PO 03/08/21 17:00 04/24/21 16:47 Sulfasalazine (Azulfidine) 500 mg 0900,1300,1700 PO 03/08/21 09:00 04/24/21 16:47 Bupropion HCl (Wellbutrin Xl) 300 mg DAILY PO 03/09/21 09:00 04/24/21 08:01 Potassium Chloride (Klor-Con) 40 meq 1630,1730 PO 03/08/21 16:30 03/08/21 18:04 DC 03/08/21 16:57 Potassium Chloride (Klor-Con) 40 meq 1700,1800 PO 03/08/21 17:15 03/08/21 18:04 DC 03/08/21 17:56 Divalproex Sodium (Depakote Sprinkles) 500 mg BID PO 03/12/21 09:00 04/19/21 17:44 DC 04/19/21 08:27 Clotrimazole (Mycelex-7) 1 debra QHS VG 03/18/21 21:00 03/25/21 20:59 DC 03/24/21 20:20 Dicyclomine HCl (Bentyl) 20 mg TID PO 03/18/21 21:00 04/24/21 13:31 Diphenoxylate HCl/ Atropine (Lomotil) 2 tab BID PO 03/18/21 21:00 04/24/21 08:01 Lidocaine (Lidoderm) 1 patch PRN DAILY PRN TP pain 03/29/21 12:15 Fluconazole (Diflucan) 100 mg Q72H PO 04/16/21 12:00 04/19/21 12:01 DC 04/19/21 12:07 Divalproex Sodium (Depakote Er) 1,000 mg QHS PO 04/19/21 21:00 04/23/21 19:55 Olanzapine (ZyPREXA ZYDIS) 2.5 mg PRN Q2HR PRN PO PSYCHOSIS 04/22/21 15:45 04/22/21 15:59 I have reviewed the current psychotropics carefully including drug interactions. Risk benefit ratio favors no change other than as noted in my dictated progress note. Diagnosis: Problems: (1) Impulse control disorder, unspecified (2) Mild cognitive impairment (3) Anxiety disorder, unspecified (4) Bipolar disorder, curr episode mixed, severe, with psychotic features (5) Bipolar 1 disorder, depressed NITHIN STEVENS MD Apr 24, 2021 20:07
[2021-04-24] MEDS: traZODone 50 MG TABLET. PO SCH (20:34)
[2021-04-24] MEDS: DIVALPROEX ER 500 MG TAB.ER.24H PO SCH (20:35)
--- NOTE | 2021-04-24 22:47 | NUR ---
Pt laying in her bed this evening. Calm and pleasant. Compliant with whole medications. No delusions.
[2021-04-25 06:01] VITALS: BP 120/74
--- NOTE | 2021-04-25 06:44 | PDOC ---
Exam Note: Napoleon Note: This note is a late entry for 04/24/2021 covers elements not covered in my initial note. Subjective: The patient was seen individually in the evening of 04/24/2021 with Milly BARR, discussed and reviewed the chart. The patient slept 7-1/4 hours previous night. Overall she appears cognitively clearer. I met with her in the hallway. She wanted to get back to the room and go to bed. She does have oxygen in place, not removing it. She is in a wheelchair. Review of Systems: Impaired ambulation, in wheelchair. Shortness of breath on O2 supplements. No CV, , eye, ENT system symptoms on review. Mental Status Exam: The patient is oriented to herself and situation. Speech coherent. Abstraction fair. Computation impaired. Language function intact. Attention span short. Mood and affect withdrawn. No suicidal or homicidal ideation. Laboratory Data: Reviewed. Impression: Bipolar disorder, depressed. Anxiety disorder unspecified. Impulse control disorder unspecified. Plan: No change from initial note. Assessment: Vital Signs/I&O: Vital Signs Date Time Temp Pulse Resp B/P (MAP) Pulse Ox O2 Delivery O2 Flow Rate FiO2 04/25/21 06:01 98.5 92 16 120/74 (89) 92 2.0 04/24/21 15:43 Nasal Cannula I & O 04/24/21 04/24/21 04/25/21 15:00 23:00 07:00 Intake Total 840 ml 300 ml Balance 840 ml 300 ml Current Medications: Meds: Current Medications Medications (Trade) Dose Ordered Sig/Mya Route PRN Reason Start Time Stop Time Status Last Admin Dose Admin Acetaminophen (Tylenol) 650 mg PRN Q6HRS PRN PO MILD PAIN / TEMP > 100.3'F 02/16/21 15:45 03/04/21 09:21 DC 02/18/21 06:31 Multi-Ingredient Ointment (Analgesic [place]) 1 debra PRN QID PRN TP MUSCLE PAIN 02/16/21 15:45 03/04/21 09:21 DC Al Hydroxide/Mg Hydroxide (Mylanta Plus Xs) 15 ml PRN AFTMEALHC PRN PO DYSPEPSIA 02/16/21 15:45 03/04/21 22:05 Magnesium Hydroxide (Milk Of Magnesia) 2,400 mg PRN QHS PRN PO 1ST CHOICE CONSTIPATION 02/16/21 15:45 03/04/21 09:21 DC Acetaminophen (Tylenol) 1,000 mg Q6HRS PRN PO pain or fever 02/16/21 17:00 02/16/21 17:35 DC Acetaminophen (Tylenol) 500 mg Q4HRS PRN PO MILD PAIN 1-3 02/16/21 17:00 02/16/21 17:36 DC Bisacodyl (Dulcolax Tab) 5 mg PRN DAILY PRN PO 2ND CHOICE CONSTIPATION 02/16/21 17:00 03/04/21 09:21 DC Vitamin D (Vitamin D3) 50,000 unit WEEKLY PO 02/22/21 09:00 03/04/21 09:21 DC 02/22/21 07:16 Clonazepam (KlonoPIN) 0.5 mg BID PO 02/16/21 21:00 02/27/21 19:54 DC 02/27/21 10:11 Dicyclomine HCl (Bentyl) 20 mg TID PO 02/16/21 21:00 03/04/21 09:21 DC 03/03/21 21:07 Diphenoxylate HCl/ Atropine (Lomotil) 2 tab BID PO 02/16/21 21:00 03/04/21 09:21 DC 03/03/21 21:08 Divalproex Sodium (Depakote Er) 1,000 mg HS PO 02/16/21 21:00 03/07/21 20:15 DC 03/04/21 21:43 Duloxetine HCl (Cymbalta) 30 mg BID PO 02/16/21 21:00 03/07/21 20:15 DC 03/06/21 08:14 Fluticasone Propionate (Flonase) 2 spray DAILY NS 02/17/21 09:00 04/24/21 08:00 Furosemide (Lasix) 20 mg DAILY PO 02/17/21 09:00 03/04/21 09:21 DC 03/03/21 08:32 Gabapentin (Neurontin) 300 mg QID PO 02/16/21 17:00 04/24/21 20:34 Hydroxyurea (Hydrea) 1,000 mg DAILY PO 02/17/21 09:00 04/24/21 08:02 Levetiracetam (Keppra) 250 mg BID PO 02/16/21 21:00 03/02/21 14:48 DC 03/02/21 09:54 Lidocaine (Lidoderm) 1 patch DAILY TP 02/17/21 09:00 02/17/21 09:24 DC Al Hydroxide/Mg Hydroxide (Mylanta Plus Xs) 15 ml PRN AFTMEALHC PRN PO DYSPEPSIA 02/16/21 17:00 02/16/21 17:36 DC Mirabegron (Myrbetriq) 50 mg DAILY PO 02/17/21 09:00 03/04/21 09:21 DC 03/03/21 08:30 Nystatin (Nystop) 1 debra BID TP 02/16/21 21:00 04/24/21 20:35 Pantoprazole Sodium (Protonix) 40 mg DAILYAC PO 02/17/21 07:30 04/24/21 08:02 Potassium Chloride (Klor-Con) 40 meq DAILY PO 02/17/21 09:00 03/04/21 09:21 DC 03/03/21 08:32 Sulfasalazine (Azulfidine) 500 mg TID PO 02/16/21 21:00 03/07/21 20:15 DC 03/06/21 13:05 Trazodone HCl (Desyrel) 50 mg QHS PO 02/16/21 21:00 04/24/21 20:34 Non-Formulary Medication (Albuterol Sulfate (Albuterol Sulfate Conc Neb Soln)) 1 vial PRN Q4HRS PRN NEB SHORTNESS OF BREATH 02/16/21 17:00 02/16/21 17:49 DC Ascorbic Acid (Vitamin C) 1,000 mg DAILY PO 02/17/21 09:00 03/04/21 09:21 DC 03/03/21 08:34 Diltiazem HCl (Cardizem) 60 mg BID PO 02/16/21 21:00 04/24/21 20:35 Lactobacillus Rhamnosus (Culturelle) 1 cap DAILY PO 02/17/21 09:00 03/04/21 09:21 DC 03/03/21 08:32 Amylase/Lipase/ Protease (Zenpep 10,000) 1 cap TIDBFRMEAL PO 02/17/21 07:30 04/24/21 16:46 Non-Formulary Medication (Magnesium Hydroxide (Milk Of Magnesia)) 2,400 mg PRN DAILY PRN PO CONSTIPATION 02/16/21 17:00 02/16/21 17:37 DC Magnesium Oxide (Magnesium Oxide) 400 mg DAILY PO 02/17/21 09:00 03/04/21 09:21 DC 03/03/21 08:31 Non-Formulary Medication (Methyl Salicylate/ Menthol (Analgesic [place])) 1 debra PRN Q6HRS PRN TP MUSCLE PAIN 02/16/21 17:00 02/16/21 17:37 DC Non-Formulary Medication (Umeclidinium [place] (Incruse Ellipta)) 62.5 mcg DAILY IH 02/17/21 09:00 02/16/21 17:49 DC Non-Formulary Medication (Zinc Gluconate ) 50 mg DAILY PO 02/17/21 09:00 02/16/21 17:46 DC Albuterol/ Ipratropium (Duoneb) 3 ml RTQID NEB 02/16/21 20:00 02/17/21 19:52 DC Albuterol Sulfate (Ventolin) 2.5 mg PRN Q4HRS PRN NEB SHORTNESS OF BREATH 02/16/21 18:00 Influenza Virus Vaccine Quadrival (Flulaval Quad [id number] Syringe) 0.5 ml ONCE ONCE VAX IM 02/17/21 09:00 02/17/21 09:01 DC 02/17/21 09:21 Lidocaine (Lidoderm) 1 patch DAILY PRN TP pain 02/17/21 09:30 03/29/21 12:01 DC 03/28/21 08:37 Albuterol/ Ipratropium (Combivent Respimat 20-100 Mcg) 1 puff RTQID INH 02/17/21 20:00 04/24/21 20:00 Sertraline HCl (Zoloft) 25 mg DAILY PO 02/22/21 09:00 02/24/21 10:00 DC 02/24/21 09:59 Sertraline HCl (Zoloft) 50 mg DAILY PO 02/25/21 09:00 03/01/21 18:30 DC 03/01/21 10:07 Olanzapine (ZyPREXA ZYDIS) 5 mg 1X ONCE PO 02/26/21 12:03 02/26/21 12:09 DC 02/26/21 12:25 Clonazepam (KlonoPIN) 0.5 mg DAILY PO 02/28/21 09:00 03/02/21 07:00 DC 03/01/21 10:07 Bupropion HCl (Wellbutrin Xl) 150 mg DAILY PO 03/02/21 09:00 03/08/21 15:46 DC 03/08/21 08:41 Levetiracetam (Keppra) 250 mg DAILY PO 03/03/21 09:00 04/10/21 00:12 DC 04/09/21 08:53 Aripiprazole (Abilify) 5 mg DAILY PO 03/05/21 09:00 04/24/21 08:01 Ondansetron HCl (Zofran Odt) 4 mg PRN Q4HRS PRN PO NAUSEA/VOMITING 03/06/21 19:30 04/02/21 09:23 Potassium Chloride (Klor-Con) 30 meq BID PO 03/07/21 09:00 04/24/21 20:34 Divalproex Sodium (Depakote Er) 1,000 mg 1700 PO 03/08/21 17:00 03/12/21 00:01 DC 03/11/21 17:27 Duloxetine HCl (Cymbalta) 30 mg 0900,1700 PO 03/08/21 17:00 04/24/21 16:47 Sulfasalazine (Azulfidine) 500 mg 0900,1300,1700 PO 03/08/21 09:00 04/24/21 16:47 Bupropion HCl (Wellbutrin Xl) 300 mg DAILY PO 03/09/21 09:00 04/24/21 08:01 Potassium Chloride (Klor-Con) 40 meq 1630,1730 PO 03/08/21 16:30 03/08/21 18:04 DC 03/08/21 16:57 Potassium Chloride (Klor-Con) 40 meq 1700,1800 PO 03/08/21 17:15 03/08/21 18:04 DC 03/08/21 17:56 Divalproex Sodium (Depakote Sprinkles) 500 mg BID PO 03/12/21 09:00 04/19/21 17:44 DC 04/19/21 08:27 Clotrimazole (Mycelex-7) 1 debra QHS VG 03/18/21 21:00 03/25/21 20:59 DC 03/24/21 20:20 Dicyclomine HCl (Bentyl) 20 mg TID PO 03/18/21 21:00 04/24/21 20:34 Diphenoxylate HCl/ Atropine (Lomotil) 2 tab BID PO 03/18/21 21:00 04/24/21 20:35 Lidocaine (Lidoderm) 1 patch PRN DAILY PRN TP pain 03/29/21 12:15 Fluconazole (Diflucan) 100 mg Q72H PO 04/16/21 12:00 04/19/21 12:01 DC 04/19/21 12:07 Divalproex Sodium (Depakote Er) 1,000 mg QHS PO 04/19/21 21:00 04/24/21 20:35 Olanzapine (ZyPREXA ZYDIS) 2.5 mg PRN Q2HR PRN PO PSYCHOSIS 04/22/21 15:45 04/22/21 15:59 I have reviewed the current psychotropics carefully including drug interactions. Risk benefit ratio favors no change other than as noted in my dictated progress note. Diagnosis: Problems: (1) Impulse control disorder, unspecified (2) Mild cognitive impairment (3) Anxiety disorder, unspecified (4) Bipolar disorder, curr episode mixed, severe, with psychotic features (5) Bipolar 1 disorder, depressed NITHIN STEVENS MD Apr 25, 2021 06:44
[2021-04-25] MEDS: DIPHENOXYLATE/ATROPINE TABLET. PO SCH ×2 (07:35→20:13)
[2021-04-25] MEDS: DULoxetine HCL 30 MG CAPSULE.DR PO SCH ×2 (07:35→17:00)
[2021-04-25] MEDS: POTASSIUM CHLORIDE 10 MEQ TABLET.ER. PO SCH ×2 (07:35→20:10)
[2021-04-25] MEDS: DICYCLOMINE HCL 20 MG TABLET PO SCH ×3 (07:35→20:11)
[2021-04-25] MEDS: sulfaSALAzine 500 MG TABLET PO SCH ×3 (07:36→17:00)
[2021-04-25] MEDS: dilTIAZem HCL 30 MG TABLET PO SCH ×2 (07:36→20:11)
[2021-04-25] MEDS: buPROPion XL 300 MG TAB.ER.24H. PO SCH (07:36)
[2021-04-25] MEDS: GABAPENTIN 300 MG CAPSULE. PO SCH ×4 (07:36→20:11)
[2021-04-25] MEDS: PANTOPRAZOLE 40 MG TABLET. PO SCH (07:36)
[2021-04-25] MEDS: LIPASE/PROTEAS/AMYLAS 10/32/42 CAPSULE.DR. PO SCH ×3 (07:36→16:30)
[2021-04-25] MEDS: ARIPiprazole 5 MG TABLET PO SCH (07:37)
[2021-04-25] MEDS: FLUTICASONE 50MCG/NASAL SPRAY 16GM BOTTLE. NS SCH (07:37)
[2021-04-25] MEDS: IPRATROPIUM/ALBUTEROL 20/100mcg/INH INHALER. INH SCH ×4 (07:37→20:00)
[2021-04-25] MEDS: HYDROXYUREA 500 MG CAPSULE PO SCH (07:39)
[2021-04-25] MEDS: NYSTATIN TOPICAL POWDER 15GM BOTTLE. TP SCH ×2 (07:39→20:10)
--- NOTE | 2021-04-25 10:34 | NUR ---
Nursing Note Pt pleasant this am, social with peers. States she feels ok but it's early. No complaints so far, lungs fairly diminished with a tiny bit of coarse breath sounds posteriorly.
[2021-04-25 16:05] VITALS: BP 112/67
[2021-04-25] MEDS: DIVALPROEX ER 500 MG TAB.ER.24H PO SCH (20:11)
[2021-04-25] MEDS: traZODone 50 MG TABLET. PO SCH (20:11)
[2021-04-25] MEDS: ACETAMINOPHEN 500 MG TABLET PO PRN (20:25)
--- NOTE | 2021-04-25 21:03 | PDOC ---
Exam Note: Napoleon Note: Please also refer to the separate dictated note~for this date of service dictated separately.~Patient seen individually. Discussed the patient with Nursing staff reviewed the chart.~Reviewed interim history and current functioning. Reviewed vital signs,~Labs/ Radiology~and current medications noted below. Continue current treatment with the changes noted in the dictated addendum note Assessment: Vital Signs/I&O: Vital Signs Date Time Temp Pulse Resp B/P (MAP) Pulse Ox O2 Delivery O2 Flow Rate FiO2 04/25/21 20:11 86 112/67 04/25/21 16:05 97.4 18 94 2.0 04/24/21 15:43 Nasal Cannula I & O 0 04/24/21 04/24/21 04/25/21 15:00 23:00 07:00 Intake Total 840 ml 300 ml Balance 840 ml 300 ml Current Medications: Meds: Current Medications Medications (Trade) Dose Ordered Sig/Mya Route PRN Reason Start Time Stop Time Status Last Admin Dose Admin Acetaminophen (Tylenol) 650 mg PRN Q6HRS PRN PO MILD PAIN / TEMP > 100.3'F 02/16/21 15:45 03/04/21 09:21 DC 02/18/21 06:31 Multi-Ingredient Ointment (Analgesic [place]) 1 debra PRN QID PRN TP MUSCLE PAIN 02/16/21 15:45 03/04/21 09:21 DC Al Hydroxide/Mg Hydroxide (Mylanta Plus Xs) 15 ml PRN AFTMEALHC PRN PO DYSPEPSIA 02/16/21 15:45 03/04/21 22:05 Magnesium Hydroxide (Milk Of Magnesia) 2,400 mg PRN QHS PRN PO 1ST CHOICE CONSTIPATION 02/16/21 15:45 03/04/21 09:21 DC Acetaminophen (Tylenol) 1,000 mg Q6HRS PRN PO pain or fever 02/16/21 17:00 02/16/21 17:35 DC Acetaminophen (Tylenol) 500 mg Q4HRS PRN PO MILD PAIN 1-3 02/16/21 17:00 02/16/21 17:36 DC Bisacodyl (Dulcolax Tab) 5 mg PRN DAILY PRN PO 2ND CHOICE CONSTIPATION 02/16/21 17:00 03/04/21 09:21 DC Vitamin D (Vitamin D3) 50,000 unit WEEKLY PO 02/22/21 09:00 03/04/21 09:21 DC 02/22/21 07:16 Clonazepam (KlonoPIN) 0.5 mg BID PO 02/16/21 21:00 02/27/21 19:54 DC 02/27/21 10:11 Dicyclomine HCl (Bentyl) 20 mg TID PO 02/16/21 21:00 03/04/21 09:21 DC 03/03/21 21:07 Diphenoxylate HCl/ Atropine (Lomotil) 2 tab BID PO 02/16/21 21:00 03/04/21 09:21 DC 03/03/21 21:08 Divalproex Sodium (Depakote Er) 1,000 mg HS PO 02/16/21 21:00 03/07/21 20:15 DC 03/04/21 21:43 Duloxetine HCl (Cymbalta) 30 mg BID PO 02/16/21 21:00 03/07/21 20:15 DC 03/06/21 08:14 Fluticasone Propionate (Flonase) 2 spray DAILY NS 02/17/21 09:00 04/25/21 07:37 Furosemide (Lasix) 20 mg DAILY PO 02/17/21 09:00 03/04/21 09:21 DC 03/03/21 08:32 Gabapentin (Neurontin) 300 mg QID PO 02/16/21 17:00 04/25/21 20:11 Hydroxyurea (Hydrea) 1,000 mg DAILY PO 02/17/21 09:00 04/25/21 07:39 Levetiracetam (Keppra) 250 mg BID PO 02/16/21 21:00 03/02/21 14:48 DC 03/02/21 09:54 Lidocaine (Lidoderm) 1 patch DAILY TP 02/17/21 09:00 02/17/21 09:24 DC Al Hydroxide/Mg Hydroxide (Mylanta Plus Xs) 15 ml PRN AFTMEALHC PRN PO DYSPEPSIA 02/16/21 17:00 02/16/21 17:36 DC Mirabegron (Myrbetriq) 50 mg DAILY PO 02/17/21 09:00 03/04/21 09:21 DC 03/03/21 08:30 Nystatin (Nystop) 1 debra BID TP 02/16/21 21:00 04/25/21 20:10 Pantoprazole Sodium (Protonix) 40 mg DAILYAC PO 02/17/21 07:30 04/25/21 07:36 Potassium Chloride (Klor-Con) 40 meq DAILY PO 02/17/21 09:00 03/04/21 09:21 DC 03/03/21 08:32 Sulfasalazine (Azulfidine) 500 mg TID PO 02/16/21 21:00 03/07/21 20:15 DC 03/06/21 13:05 Trazodone HCl (Desyrel) 50 mg QHS PO 02/16/21 21:00 04/25/21 20:11 Non-Formulary Medication (Albuterol Sulfate (Albuterol Sulfate Conc Neb Soln)) 1 vial PRN Q4HRS PRN NEB SHORTNESS OF BREATH 02/16/21 17:00 02/16/21 17:49 DC Ascorbic Acid (Vitamin C) 1,000 mg DAILY PO 02/17/21 09:00 03/04/21 09:21 DC 03/03/21 08:34 Diltiazem HCl (Cardizem) 60 mg BID PO 02/16/21 21:00 04/25/21 20:11 Lactobacillus Rhamnosus (Culturelle) 1 cap DAILY PO 02/17/21 09:00 03/04/21 09:21 DC 03/03/21 08:32 Amylase/Lipase/ Protease (Zenpep 10,000) 1 cap TIDBFRMEAL PO 02/17/21 07:30 04/25/21 16:30 Non-Formulary Medication (Magnesium Hydroxide (Milk Of Magnesia)) 2,400 mg PRN DAILY PRN PO CONSTIPATION 02/16/21 17:00 02/16/21 17:37 DC Magnesium Oxide (Magnesium Oxide) 400 mg DAILY PO 02/17/21 09:00 03/04/21 09:21 DC 03/03/21 08:31 Non-Formulary Medication (Methyl Salicylate/ Menthol (Analgesic [place]ici)) 1 debra PRN Q6HRS PRN TP MUSCLE PAIN 02/16/21 17:00 02/16/21 17:37 DC Non-Formulary Medication (Umeclidinium [place] (Incruse Ellipta)) 62.5 mcg DAILY IH 02/17/21 09:00 02/16/21 17:49 DC Non-Formulary Medication (Zinc Gluconate ) 50 mg DAILY PO 02/17/21 09:00 02/16/21 17:46 DC Albuterol/ Ipratropium (Duoneb) 3 ml RTQID NEB 02/16/21 20:00 02/17/21 19:52 DC Albuterol Sulfate (Ventolin) 2.5 mg PRN Q4HRS PRN NEB SHORTNESS OF BREATH 02/16/21 18:00 Influenza Virus Vaccine Quadrival (Flulaval Quad [id number] Syringe) 0.5 ml ONCE ONCE VAX IM 02/17/21 09:00 02/17/21 09:01 DC 02/17/21 09:21 Lidocaine (Lidoderm) 1 patch DAILY PRN TP pain 02/17/21 09:30 03/29/21 12:01 DC 03/28/21 08:37 Albuterol/ Ipratropium (Combivent Respimat 20-100 Mcg) 1 puff RTQID INH 02/17/21 20:00 04/25/21 20:00 Sertraline HCl (Zoloft) 25 mg DAILY PO 02/22/21 09:00 02/24/21 10:00 DC 02/24/21 09:59 Sertraline HCl (Zoloft) 50 mg DAILY PO 02/25/21 09:00 03/01/21 18:30 DC 03/01/21 10:07 Olanzapine (ZyPREXA ZYDIS) 5 mg 1X ONCE PO 02/26/21 12:03 02/26/21 12:09 DC 02/26/21 12:25 Clonazepam (KlonoPIN) 0.5 mg DAILY PO 02/28/21 09:00 03/02/21 07:00 DC 03/01/21 10:07 Bupropion HCl (Wellbutrin Xl) 150 mg DAILY PO 03/02/21 09:00 03/08/21 15:46 DC 03/08/21 08:41 Levetiracetam (Keppra) 250 mg DAILY PO 03/03/21 09:00 04/10/21 00:12 DC 04/09/21 08:53 Aripiprazole (Abilify) 5 mg DAILY PO 03/05/21 09:00 04/25/21 07:37 Ondansetron HCl (Zofran Odt) 4 mg PRN Q4HRS PRN PO NAUSEA/VOMITING 03/06/21 19:30 04/02/21 09:23 Potassium Chloride (Klor-Con) 30 meq BID PO 03/07/21 09:00 04/25/21 20:10 Divalproex Sodium (Depakote Er) 1,000 mg 1700 PO 03/08/21 17:00 03/12/21 00:01 DC 03/11/21 17:27 Duloxetine HCl (Cymbalta) 30 mg 0900,1700 PO 03/08/21 17:00 04/25/21 17:00 Sulfasalazine (Azulfidine) 500 mg 0900,1300,1700 PO 03/08/21 09:00 04/25/21 17:00 Bupropion HCl (Wellbutrin Xl) 300 mg DAILY PO 03/09/21 09:00 04/25/21 07:36 Potassium Chloride (Klor-Con) 40 meq 1630,1730 PO 03/08/21 16:30 03/08/21 18:04 DC 03/08/21 16:57 Potassium Chloride (Klor-Con) 40 meq 1700,1800 PO 03/08/21 17:15 03/08/21 18:04 DC 03/08/21 17:56 Divalproex Sodium (Depakote Sprinkles) 500 mg BID PO 03/12/21 09:00 04/19/21 17:44 DC 04/19/21 08:27 Clotrimazole (Mycelex-7) 1 debra QHS VG 03/18/21 21:00 03/25/21 20:59 DC 03/24/21 20:20 Dicyclomine HCl (Bentyl) 20 mg TID PO 03/18/21 21:00 04/25/21 20:11 Diphenoxylate HCl/ Atropine (Lomotil) 2 tab BID PO 03/18/21 21:00 04/25/21 20:13 Lidocaine (Lidoderm) 1 patch PRN DAILY PRN TP pain 03/29/21 12:15 Fluconazole (Diflucan) 100 mg Q72H PO 04/16/21 12:00 04/19/21 12:01 DC 04/19/21 12:07 Divalproex Sodium (Depakote Er) 1,000 mg QHS PO 04/19/21 21:00 04/25/21 20:11 Olanzapine (ZyPREXA ZYDIS) 2.5 mg PRN Q2HR PRN PO PSYCHOSIS 04/22/21 15:45 04/22/21 15:59 Acetaminophen (Tylenol) 500 mg PRN Q6HRS PRN PO MILD PAIN / TEMP > 100.3'F 04/25/21 20:30 04/25/21 20:25 Current Medications Medications (Trade) Dose Ordered Sig/Mya Route PRN Reason Start Time Stop Time Status Last Admin Dose Admin Acetaminophen (Tylenol) 500 mg PRN Q6HRS PRN PO MILD PAIN / TEMP > 100.3'F 04/25/21 20:30 04/25/21 20:25 I have reviewed the current psychotropics carefully including drug interactions. Risk benefit ratio favors no change other than as noted in my dictated progress note. Diagnosis: Problems: (1) Impulse control disorder, unspecified (2) Mild cognitive impairment (3) Anxiety disorder, unspecified (4) Bipolar disorder, curr episode mixed, severe, with psychotic features (5) Bipolar 1 disorder, depressed NITHIN STEVENS MD Apr 25, 2021 21:03
--- NOTE | 2021-04-25 23:08 | NUR ---
Pt located in her room this evening. Pt irritable, states that the "woman next door is driving her nuts with all of her yelling." Pt states that the woman's yelling gave her a headache. PRN Tylenol administered with HS medications.
[2021-04-26 05:56] VITALS: BP 104/65
--- NOTE | 2021-04-26 07:26 | PDOC ---
Exam Note: Napoleon Note: This note is a late entry for 04/25/2021 covers elements not covered in my initial note. Subjective: The patient was seen individually in the evening of 04/25/2021 with Milly BARR, discussed and reviewed the chart. The patient slept 7-1/2 hours previous night. I met with the patient in her room at some length. She has been doing reasonably well. Review of Systems: Impaired ambulation, in wheelchair. Shortness of breath on 2 L oxygen No CV, , eye, ENT system symptoms on review. Gait unsteady in wheelchair. Mental Status Exam: The patient is oriented to herself and situation. Speech coherent. Abstraction fair. Computation impaired. Language function intact. Mood and affect less irritable, less labile. No suicidal or homicidal ideation. Laboratory Data: Reviewed. Impression: Bipolar disorder, depressed. Anxiety disorder unspecified. Impulse control disorder unspecified. Plan: No change from initial note. Assessment: Vital Signs/I&O: Vital Signs Date Time Temp Pulse Resp B/P (MAP) Pulse Ox O2 Delivery O2 Flow Rate FiO2 04/26/21 05:56 98.8 95 16 104/65 (78) 92 2.0 04/24/21 15:43 Nasal Cannula I & O 04/25/21 04/25/21 04/26/21 15:00 23:00 07:00 Intake Total 960 ml 475 ml Balance 960 ml 475 ml Current Medications: Meds: Current Medications Medications (Trade) Dose Ordered Sig/Mya Route PRN Reason Start Time Stop Time Status Last Admin Dose Admin Acetaminophen (Tylenol) 650 mg PRN Q6HRS PRN PO MILD PAIN / TEMP > 100.3'F 02/16/21 15:45 03/04/21 09:21 DC 02/18/21 06:31 Multi-Ingredient Ointment (Analgesic [place]) 1 debra PRN QID PRN TP MUSCLE PAIN 02/16/21 15:45 03/04/21 09:21 DC Al Hydroxide/Mg Hydroxide (Mylanta Plus Xs) 15 ml PRN AFTMEALHC PRN PO DYSPEPSIA 02/16/21 15:45 03/04/21 22:05 Magnesium Hydroxide (Milk Of Magnesia) 2,400 mg PRN QHS PRN PO 1ST CHOICE CONSTIPATION 02/16/21 15:45 03/04/21 09:21 DC Acetaminophen (Tylenol) 1,000 mg Q6HRS PRN PO pain or fever 02/16/21 17:00 02/16/21 17:35 DC Acetaminophen (Tylenol) 500 mg Q4HRS PRN PO MILD PAIN 1-3 02/16/21 17:00 02/16/21 17:36 DC Bisacodyl (Dulcolax Tab) 5 mg PRN DAILY PRN PO 2ND CHOICE CONSTIPATION 02/16/21 17:00 03/04/21 09:21 DC Vitamin D (Vitamin D3) 50,000 unit WEEKLY PO 02/22/21 09:00 03/04/21 09:21 DC 02/22/21 07:16 Clonazepam (KlonoPIN) 0.5 mg BID PO 02/16/21 21:00 02/27/21 19:54 DC 02/27/21 10:11 Dicyclomine HCl (Bentyl) 20 mg TID PO 02/16/21 21:00 03/04/21 09:21 DC 03/03/21 21:07 Diphenoxylate HCl/ Atropine (Lomotil) 2 tab BID PO 02/16/21 21:00 03/04/21 09:21 DC 03/03/21 21:08 Divalproex Sodium (Depakote Er) 1,000 mg HS PO 02/16/21 21:00 03/07/21 20:15 DC 03/04/21 21:43 Duloxetine HCl (Cymbalta) 30 mg BID PO 02/16/21 21:00 03/07/21 20:15 DC 03/06/21 08:14 Fluticasone Propionate (Flonase) 2 spray DAILY NS 02/17/21 09:00 04/25/21 07:37 Furosemide (Lasix) 20 mg DAILY PO 02/17/21 09:00 03/04/21 09:21 DC 03/03/21 08:32 Gabapentin (Neurontin) 300 mg QID PO 02/16/21 17:00 04/25/21 20:11 Hydroxyurea (Hydrea) 1,000 mg DAILY PO 02/17/21 09:00 04/25/21 07:39 Levetiracetam (Keppra) 250 mg BID PO 02/16/21 21:00 03/02/21 14:48 DC 03/02/21 09:54 Lidocaine (Lidoderm) 1 patch DAILY TP 02/17/21 09:00 02/17/21 09:24 DC Al Hydroxide/Mg Hydroxide (Mylanta Plus Xs) 15 ml PRN AFTMEALHC PRN PO DYSPEPSIA 02/16/21 17:00 02/16/21 17:36 DC Mirabegron (Myrbetriq) 50 mg DAILY PO 02/17/21 09:00 03/04/21 09:21 DC 03/03/21 08:30 Nystatin (Nystop) 1 debra BID TP 02/16/21 21:00 04/25/21 20:10 Pantoprazole Sodium (Protonix) 40 mg DAILYAC PO 02/17/21 07:30 04/25/21 07:36 Potassium Chloride (Klor-Con) 40 meq DAILY PO 02/17/21 09:00 03/04/21 09:21 DC 03/03/21 08:32 Sulfasalazine (Azulfidine) 500 mg TID PO 02/16/21 21:00 03/07/21 20:15 DC 03/06/21 13:05 Trazodone HCl (Desyrel) 50 mg QHS PO 02/16/21 21:00 04/25/21 20:11 Non-Formulary Medication (Albuterol Sulfate (Albuterol Sulfate Conc Neb Soln)) 1 vial PRN Q4HRS PRN NEB SHORTNESS OF BREATH 02/16/21 17:00 02/16/21 17:49 DC Ascorbic Acid (Vitamin C) 1,000 mg DAILY PO 02/17/21 09:00 03/04/21 09:21 DC 03/03/21 08:34 Diltiazem HCl (Cardizem) 60 mg BID PO 02/16/21 21:00 04/25/21 20:11 Lactobacillus Rhamnosus (Culturelle) 1 cap DAILY PO 02/17/21 09:00 03/04/21 09:21 DC 03/03/21 08:32 Amylase/Lipase/ Protease (Zenpep 10,000) 1 cap TIDBFRMEAL PO 02/17/21 07:30 04/25/21 16:30 Non-Formulary Medication (Magnesium Hydroxide (Milk Of Magnesia)) 2,400 mg PRN DAILY PRN PO CONSTIPATION 02/16/21 17:00 02/16/21 17:37 DC Magnesium Oxide (Magnesium Oxide) 400 mg DAILY PO 02/17/21 09:00 03/04/21 09:21 DC 03/03/21 08:31 Non-Formulary Medication (Methyl Salicylate/ Menthol (Analgesic [place])) 1 debra PRN Q6HRS PRN TP MUSCLE PAIN 02/16/21 17:00 02/16/21 17:37 DC Non-Formulary Medication (Umeclidinium [place] (Incruse Ellipta)) 62.5 mcg DAILY IH 02/17/21 09:00 02/16/21 17:49 DC Non-Formulary Medication (Zinc Gluconate ) 50 mg DAILY PO 02/17/21 09:00 02/16/21 17:46 DC Albuterol/ Ipratropium (Duoneb) 3 ml RTQID NEB 02/16/21 20:00 02/17/21 19:52 DC Albuterol Sulfate (Ventolin) 2.5 mg PRN Q4HRS PRN NEB SHORTNESS OF BREATH 02/16/21 18:00 Influenza Virus Vaccine Quadrival (Flulaval Quad [id number] Syringe) 0.5 ml ONCE ONCE VAX IM 02/17/21 09:00 02/17/21 09:01 DC 02/17/21 09:21 Lidocaine (Lidoderm) 1 patch DAILY PRN TP pain 02/17/21 09:30 03/29/21 12:01 DC 03/28/21 08:37 Albuterol/ Ipratropium (Combivent Respimat 20-100 Mcg) 1 puff RTQID INH 02/17/21 20:00 04/25/21 20:00 Sertraline HCl (Zoloft) 25 mg DAILY PO 02/22/21 09:00 02/24/21 10:00 DC 02/24/21 09:59 Sertraline HCl (Zoloft) 50 mg DAILY PO 02/25/21 09:00 03/01/21 18:30 DC 03/01/21 10:07 Olanzapine (ZyPREXA ZYDIS) 5 mg 1X ONCE PO 02/26/21 12:03 02/26/21 12:09 DC 02/26/21 12:25 Clonazepam (KlonoPIN) 0.5 mg DAILY PO 02/28/21 09:00 03/02/21 07:00 DC 03/01/21 10:07 Bupropion HCl (Wellbutrin Xl) 150 mg DAILY PO 03/02/21 09:00 03/08/21 15:46 DC 03/08/21 08:41 Levetiracetam (Keppra) 250 mg DAILY PO 03/03/21 09:00 04/10/21 00:12 DC 04/09/21 08:53 Aripiprazole (Abilify) 5 mg DAILY PO 03/05/21 09:00 04/25/21 07:37 Ondansetron HCl (Zofran Odt) 4 mg PRN Q4HRS PRN PO NAUSEA/VOMITING 03/06/21 19:30 04/02/21 09:23 Potassium Chloride (Klor-Con) 30 meq BID PO 03/07/21 09:00 04/25/21 20:10 Divalproex Sodium (Depakote Er) 1,000 mg 1700 PO 03/08/21 17:00 03/12/21 00:01 DC 03/11/21 17:27 Duloxetine HCl (Cymbalta) 30 mg 0900,1700 PO 03/08/21 17:00 04/25/21 17:00 Sulfasalazine (Azulfidine) 500 mg 0900,1300,1700 PO 03/08/21 09:00 04/25/21 17:00 Bupropion HCl (Wellbutrin Xl) 300 mg DAILY PO 03/09/21 09:00 04/25/21 07:36 Potassium Chloride (Klor-Con) 40 meq 1630,1730 PO 03/08/21 16:30 03/08/21 18:04 DC 03/08/21 16:57 Potassium Chloride (Klor-Con) 40 meq 1700,1800 PO 03/08/21 17:15 03/08/21 18:04 DC 03/08/21 17:56 Divalproex Sodium (Depakote Sprinkles) 500 mg BID PO 03/12/21 09:00 04/19/21 17:44 DC 04/19/21 08:27 Clotrimazole (Mycelex-7) 1 debra QHS VG 03/18/21 21:00 03/25/21 20:59 DC 03/24/21 20:20 Dicyclomine HCl (Bentyl) 20 mg TID PO 03/18/21 21:00 04/25/21 20:11 Diphenoxylate HCl/ Atropine (Lomotil) 2 tab BID PO 03/18/21 21:00 04/25/21 20:13 Lidocaine (Lidoderm) 1 patch PRN DAILY PRN TP pain 03/29/21 12:15 Fluconazole (Diflucan) 100 mg Q72H PO 04/16/21 12:00 04/19/21 12:01 DC 04/19/21 12:07 Divalproex Sodium (Depakote Er) 1,000 mg QHS PO 04/19/21 21:00 04/25/21 20:11 Olanzapine (ZyPREXA ZYDIS) 2.5 mg PRN Q2HR PRN PO PSYCHOSIS 04/22/21 15:45 04/22/21 15:59 Acetaminophen (Tylenol) 500 mg PRN Q6HRS PRN PO MILD PAIN / TEMP > 100.3'F 04/25/21 20:30 04/25/21 20:25 Current Medications Medications (Trade) Dose Ordered Sig/Mya Route PRN Reason Start Time Stop Time Status Last Admin Dose Admin Acetaminophen (Tylenol) 500 mg PRN Q6HRS PRN PO MILD PAIN / TEMP > 100.3'F 04/25/21 20:30 04/25/21 20:25 I have reviewed the current psychotropics carefully including drug interactions. Risk benefit ratio favors no change other than as noted in my dictated progress note. Diagnosis: Problems: (1) Mild cognitive impairment (2) Impulse control disorder, unspecified (3) Anxiety disorder, unspecified (4) Bipolar disorder, curr episode mixed, severe, with psychotic features (5) Bipolar 1 disorder, depressed NITHIN STEVENS MD Apr 26, 2021 07:26
[2021-04-26] MEDS: LIPASE/PROTEAS/AMYLAS 10/32/42 CAPSULE.DR. PO SCH ×3 (08:36→16:18)
[2021-04-26] MEDS: GABAPENTIN 300 MG CAPSULE. PO SCH ×4 (08:36→19:56)
[2021-04-26] MEDS: dilTIAZem HCL 30 MG TABLET PO SCH ×2 (08:36→19:55)
[2021-04-26] MEDS: sulfaSALAzine 500 MG TABLET PO SCH ×3 (08:37→16:18)
[2021-04-26] MEDS: POTASSIUM CHLORIDE 10 MEQ TABLET.ER. PO SCH ×2 (08:37→19:56)
[2021-04-26] MEDS: DIPHENOXYLATE/ATROPINE TABLET. PO SCH ×2 (08:37→19:57)
[2021-04-26] MEDS: ARIPiprazole 5 MG TABLET PO SCH (08:37)
[2021-04-26] MEDS: DICYCLOMINE HCL 20 MG TABLET PO SCH ×3 (08:38→19:58)
[2021-04-26] MEDS: HYDROXYUREA 500 MG CAPSULE PO SCH (08:38)
[2021-04-26] MEDS: IPRATROPIUM/ALBUTEROL 20/100mcg/INH INHALER. INH SCH ×4 (08:38→19:57)
[2021-04-26] MEDS: buPROPion XL 300 MG TAB.ER.24H. PO SCH (08:38)
[2021-04-26] MEDS: PANTOPRAZOLE 40 MG TABLET. PO SCH (08:38)
[2021-04-26] MEDS: FLUTICASONE 50MCG/NASAL SPRAY 16GM BOTTLE. NS SCH (08:38)
[2021-04-26] MEDS: DULoxetine HCL 30 MG CAPSULE.DR PO SCH ×2 (08:38→16:18)
[2021-04-26] MEDS: NYSTATIN TOPICAL POWDER 15GM BOTTLE. TP SCH ×2 (09:00→20:48)
[2021-04-26] MEDS: ACETAMINOPHEN 500 MG TABLET PO PRN (12:02)
--- NOTE | 2021-04-26 13:10 | NUR ---
BUSTER spoke with Federica Cutler at the [facility] re: pt case. SW notified Federica about pt admission, her facility not wanting pt back and the resignation of her son being DPOA. BUSTER informed Federica that our legal team is looking into filing for temporary emergency guardianship but then questioned who would be her guardian and requested that we speak. Federica noted that the only way they get involved if for a hotline to be completed and APS open a case and file the motion. Federica questioned other family involvement in which BUSTER noted that there are no further family member involved. BUSTER and the law team attempted three separate numbers for her second son, all hitting ends. Federica informed BUSTER of the appropriate terms to say when talking to APS. If they decide to investigate the case, Federica will hear from them and can reach out to BUSTER. Federica did note that this is not an emergency situation; she is in the hospital and being cared for so the process may continue to take some time until it all can be finalized.
[2021-04-26 15:54] VITALS: BP 109/67
--- NOTE | 2021-04-26 18:00 | NUR ---
Patient has been calm, social, cooperative, and mildly confused throughout this shift. She was more organized and coherent since last I saw her. Patient was social with peers and staff, and participated in group activities. Will continue to monitor and report to oncoming shift.
[2021-04-26] MEDS: traZODone 50 MG TABLET. PO SCH (19:55)
[2021-04-26] MEDS: DIVALPROEX ER 500 MG TAB.ER.24H PO SCH (19:56)
--- NOTE | 2021-04-26 20:58 | PDOC ---
Exam Note: Napoleon Note: Please also refer to the separate dictated note~for this date of service dictated separately.~Patient seen individually. Discussed the patient with Nursing staff reviewed the chart.~Reviewed interim history and current functioning. Reviewed vital signs,~Labs/ Radiology~and current medications noted below. Continue current treatment with the changes noted in the dictated addendum note Assessment: Vital Signs/I&O: Vital Signs Date Time Temp Pulse Resp B/P (MAP) Pulse Ox O2 Delivery O2 Flow Rate FiO2 04/26/21 19:55 90 109/67 04/26/21 15:54 97.1 20 91 Nasal Cannula 2.0 I & O 04/25/21 04/25/21 04/26/21 15:00 23:00 07:00 Intake Total 960 ml 475 ml Balance 960 ml 475 ml Current Medications: Meds: Current Medications Medications (Trade) Dose Ordered Sig/Mya Route PRN Reason Start Time Stop Time Status Last Admin Dose Admin Acetaminophen (Tylenol) 650 mg PRN Q6HRS PRN PO MILD PAIN / TEMP > 100.3'F 02/16/21 15:45 03/04/21 09:21 DC 02/18/21 06:31 Multi-Ingredient Ointment (Analgesic [place]) 1 debra PRN QID PRN TP MUSCLE PAIN 02/16/21 15:45 03/04/21 09:21 DC Al Hydroxide/Mg Hydroxide (Mylanta Plus Xs) 15 ml PRN AFTMEALHC PRN PO DYSPEPSIA 02/16/21 15:45 03/04/21 22:05 Magnesium Hydroxide (Milk Of Magnesia) 2,400 mg PRN QHS PRN PO 1ST CHOICE CONSTIPATION 02/16/21 15:45 03/04/21 09:21 DC Acetaminophen (Tylenol) 1,000 mg Q6HRS PRN PO pain or fever 02/16/21 17:00 02/16/21 17:35 DC Acetaminophen (Tylenol) 500 mg Q4HRS PRN PO MILD PAIN 1-3 02/16/21 17:00 02/16/21 17:36 DC Bisacodyl (Dulcolax Tab) 5 mg PRN DAILY PRN PO 2ND CHOICE CONSTIPATION 02/16/21 17:00 03/04/21 09:21 DC Vitamin D (Vitamin D3) 50,000 unit WEEKLY PO 02/22/21 09:00 03/04/21 09:21 DC 02/22/21 07:16 Clonazepam (KlonoPIN) 0.5 mg BID PO 02/16/21 21:00 02/27/21 19:54 DC 02/27/21 10:11 Dicyclomine HCl (Bentyl) 20 mg TID PO 02/16/21 21:00 03/04/21 09:21 DC 03/03/21 21:07 Diphenoxylate HCl/ Atropine (Lomotil) 2 tab BID PO 02/16/21 21:00 03/04/21 09:21 DC 03/03/21 21:08 Divalproex Sodium (Depakote Er) 1,000 mg HS PO 02/16/21 21:00 03/07/21 20:15 DC 03/04/21 21:43 Duloxetine HCl (Cymbalta) 30 mg BID PO 02/16/21 21:00 03/07/21 20:15 DC 03/06/21 08:14 Fluticasone Propionate (Flonase) 2 spray DAILY NS 02/17/21 09:00 04/26/21 08:38 Furosemide (Lasix) 20 mg DAILY PO 02/17/21 09:00 03/04/21 09:21 DC 03/03/21 08:32 Gabapentin (Neurontin) 300 mg QID PO 02/16/21 17:00 04/26/21 19:56 Hydroxyurea (Hydrea) 1,000 mg DAILY PO 02/17/21 09:00 04/26/21 08:38 Levetiracetam (Keppra) 250 mg BID PO 02/16/21 21:00 03/02/21 14:48 DC 03/02/21 09:54 Lidocaine (Lidoderm) 1 patch DAILY TP 02/17/21 09:00 02/17/21 09:24 DC Al Hydroxide/Mg Hydroxide (Mylanta Plus Xs) 15 ml PRN AFTMEALHC PRN PO DYSPEPSIA 02/16/21 17:00 02/16/21 17:36 DC Mirabegron (Myrbetriq) 50 mg DAILY PO 02/17/21 09:00 03/04/21 09:21 DC 03/03/21 08:30 Nystatin (Nystop) 1 debra BID TP 02/16/21 21:00 04/26/21 09:00 Pantoprazole Sodium (Protonix) 40 mg DAILYAC PO 02/17/21 07:30 04/26/21 08:38 Potassium Chloride (Klor-Con) 40 meq DAILY PO 02/17/21 09:00 03/04/21 09:21 DC 03/03/21 08:32 Sulfasalazine (Azulfidine) 500 mg TID PO 02/16/21 21:00 03/07/21 20:15 DC 03/06/21 13:05 Trazodone HCl (Desyrel) 50 mg QHS PO 02/16/21 21:00 04/26/21 19:55 Non-Formulary Medication (Albuterol Sulfate (Albuterol Sulfate Conc Neb Soln)) 1 vial PRN Q4HRS PRN NEB SHORTNESS OF BREATH 02/16/21 17:00 02/16/21 17:49 DC Ascorbic Acid (Vitamin C) 1,000 mg DAILY PO 02/17/21 09:00 03/04/21 09:21 DC 03/03/21 08:34 Diltiazem HCl (Cardizem) 60 mg BID PO 02/16/21 21:00 04/26/21 19:55 Lactobacillus Rhamnosus (Culturelle) 1 cap DAILY PO 02/17/21 09:00 03/04/21 09:21 DC 03/03/21 08:32 Amylase/Lipase/ Protease (Zenpep 10,000) 1 cap TIDBFRMEAL PO 02/17/21 07:30 04/26/21 16:18 Non-Formulary Medication (Magnesium Hydroxide (Milk Of Magnesia)) 2,400 mg PRN DAILY PRN PO CONSTIPATION 02/16/21 17:00 02/16/21 17:37 DC Magnesium Oxide (Magnesium Oxide) 400 mg DAILY PO 02/17/21 09:00 03/04/21 09:21 DC 03/03/21 08:31 Non-Formulary Medication (Methyl Salicylate/ Menthol (Analgesic [place])) 1 debra PRN Q6HRS PRN TP MUSCLE PAIN 02/16/21 17:00 02/16/21 17:37 DC Non-Formulary Medication (Umeclidinium [place] (Incruse Ellipta)) 62.5 mcg DAILY IH 02/17/21 09:00 02/16/21 17:49 DC Non-Formulary Medication (Zinc Gluconate ) 50 mg DAILY PO 02/17/21 09:00 02/16/21 17:46 DC Albuterol/ Ipratropium (Duoneb) 3 ml RTQID NEB 02/16/21 20:00 02/17/21 19:52 DC Albuterol Sulfate (Ventolin) 2.5 mg PRN Q4HRS PRN NEB SHORTNESS OF BREATH 02/16/21 18:00 Influenza Virus Vaccine Quadrival (Flulaval Quad [id number] Syringe) 0.5 ml ONCE ONCE VAX IM 02/17/21 09:00 02/17/21 09:01 DC 02/17/21 09:21 Lidocaine (Lidoderm) 1 patch DAILY PRN TP pain 02/17/21 09:30 03/29/21 12:01 DC 03/28/21 08:37 Albuterol/ Ipratropium (Combivent Respimat 20-100 Mcg) 1 puff RTQID INH 02/17/21 20:00 04/26/21 19:57 Sertraline HCl (Zoloft) 25 mg DAILY PO 02/22/21 09:00 02/24/21 10:00 DC 02/24/21 09:59 Sertraline HCl (Zoloft) 50 mg DAILY PO 02/25/21 09:00 03/01/21 18:30 DC 03/01/21 10:07 Olanzapine (ZyPREXA ZYDIS) 5 mg 1X ONCE PO 02/26/21 12:03 02/26/21 12:09 DC 02/26/21 12:25 Clonazepam (KlonoPIN) 0.5 mg DAILY PO 02/28/21 09:00 03/02/21 07:00 DC 03/01/21 10:07 Bupropion HCl (Wellbutrin Xl) 150 mg DAILY PO 03/02/21 09:00 03/08/21 15:46 DC 03/08/21 08:41 Levetiracetam (Keppra) 250 mg DAILY PO 03/03/21 09:00 04/10/21 00:12 DC 04/09/21 08:53 Aripiprazole (Abilify) 5 mg DAILY PO 03/05/21 09:00 04/26/21 08:37 Ondansetron HCl (Zofran Odt) 4 mg PRN Q4HRS PRN PO NAUSEA/VOMITING 03/06/21 19:30 04/02/21 09:23 Potassium Chloride (Klor-Con) 30 meq BID PO 03/07/21 09:00 04/26/21 19:56 Divalproex Sodium (Depakote Er) 1,000 mg 1700 PO 03/08/21 17:00 03/12/21 00:01 DC 03/11/21 17:27 Duloxetine HCl (Cymbalta) 30 mg 0900,1700 PO 03/08/21 17:00 04/26/21 16:18 Sulfasalazine (Azulfidine) 500 mg 0900,1300,1700 PO 03/08/21 09:00 04/26/21 16:18 Bupropion HCl (Wellbutrin Xl) 300 mg DAILY PO 03/09/21 09:00 04/26/21 08:38 Potassium Chloride (Klor-Con) 40 meq 1630,1730 PO 03/08/21 16:30 03/08/21 18:04 DC 03/08/21 16:57 Potassium Chloride (Klor-Con) 40 meq 1700,1800 PO 03/08/21 17:15 03/08/21 18:04 DC 03/08/21 17:56 Divalproex Sodium (Depakote Sprinkles) 500 mg BID PO 03/12/21 09:00 04/19/21 17:44 DC 04/19/21 08:27 Clotrimazole (Mycelex-7) 1 debra QHS VG 03/18/21 21:00 03/25/21 20:59 DC 03/24/21 20:20 Dicyclomine HCl (Bentyl) 20 mg TID PO 03/18/21 21:00 04/26/21 19:58 Diphenoxylate HCl/ Atropine (Lomotil) 2 tab BID PO 03/18/21 21:00 04/26/21 19:57 Lidocaine (Lidoderm) 1 patch PRN DAILY PRN TP pain 03/29/21 12:15 Fluconazole (Diflucan) 100 mg Q72H PO 04/16/21 12:00 04/19/21 12:01 DC 04/19/21 12:07 Divalproex Sodium (Depakote Er) 1,000 mg QHS PO 04/19/21 21:00 04/26/21 19:56 Olanzapine (ZyPREXA ZYDIS) 2.5 mg PRN Q2HR PRN PO PSYCHOSIS 04/22/21 15:45 04/22/21 15:59 Acetaminophen (Tylenol) 500 mg PRN Q6HRS PRN PO MILD PAIN / TEMP > 100.3'F 04/25/21 20:30 04/26/21 12:02 I have reviewed the current psychotropics carefully including drug interactions. Risk benefit ratio favors no change other than as noted in my dictated progress note. Diagnosis: Problems: (1) Impulse control disorder, unspecified (2) Mild cognitive impairment (3) Anxiety disorder, unspecified (4) Bipolar disorder, curr episode mixed, severe, with psychotic features (5) Bipolar 1 disorder, depressed NITHIN STEVENS MD Apr 26, 2021 20:58
--- NOTE | 2021-04-26 22:50 | NUR ---
Nursing Note Pt pleasant and cooperative, denies complaints. Sleeping comfortably.
[2021-04-27 05:47] VITALS: BP 115/77
--- NOTE | 2021-04-27 07:47 | PDOC ---
Exam Note: Napoleon Note: This note is a late entry for 04/26/2021 covers elements not covered in my initial note. Subjective: The patient was seen individually in the evening of 04/26/2021 with Hadley BARR, discussed and reviewed the chart. The patient slept 8 hours previous night. She has been somewhat delusional, less disorganized, more appropriate. Review of Systems: Ambulation impaired, in wheelchair. Shortness of breath on O2 supplements. No CV, , eye, ENT system symptoms on review. Mental Status Exam: The patient is oriented to herself and situation. She was quite appropriate, interactive, complained of pedal edema and I advised her to keep her lower extremities elevated. She reluctantly accepted to do so. Speech coherent. Abstraction fair. Computation impaired. Language function intact. Mood and affect delusional, less labile. No suicidal or homicidal ideation. Laboratory Data: Reviewed. Impression: Bipolar disorder, depressed. Anxiety disorder unspecified. Impulse control disorder unspecified. Plan: No change from initial note. Assessment: Vital Signs/I&O: Vital Signs Date Time Temp Pulse Resp B/P (MAP) Pulse Ox O2 Delivery O2 Flow Rate FiO2 04/27/21 05:47 97.3 97 22 115/77 (90) 91 04/26/21 15:54 Nasal Cannula 2.0 I & O 04/26/21 04/26/21 04/27/21 15:00 23:00 07:00 Intake Total 960 ml 480 ml Balance 960 ml 480 ml Current Medications: Meds: Current Medications Medications (Trade) Dose Ordered Sig/Mya Route PRN Reason Start Time Stop Time Status Last Admin Dose Admin Acetaminophen (Tylenol) 650 mg PRN Q6HRS PRN PO MILD PAIN / TEMP > 100.3'F 02/16/21 15:45 03/04/21 09:21 DC 02/18/21 06:31 Multi-Ingredient Ointment (Analgesic [place]) 1 debra PRN QID PRN TP MUSCLE PAIN 02/16/21 15:45 03/04/21 09:21 DC Al Hydroxide/Mg Hydroxide (Mylanta Plus Xs) 15 ml PRN AFTMEALHC PRN PO DYSPEPSIA 02/16/21 15:45 03/04/21 22:05 Magnesium Hydroxide (Milk Of Magnesia) 2,400 mg PRN QHS PRN PO 1ST CHOICE CONSTIPATION 10/7/21 15:45 03/04/21 09:21 DC Acetaminophen (Tylenol) 1,000 mg Q6HRS PRN PO pain or fever 02/16/21 17:00 02/16/21 17:35 DC Acetaminophen (Tylenol) 500 mg Q4HRS PRN PO MILD PAIN 1-3 02/16/21 17:00 02/16/21 17:36 DC Bisacodyl (Dulcolax Tab) 5 mg PRN DAILY PRN PO 2ND CHOICE CONSTIPATION 02/16/21 17:00 03/04/21 09:21 DC Vitamin D (Vitamin D3) 50,000 unit WEEKLY PO 02/22/21 09:00 03/04/21 09:21 DC 02/22/21 07:16 Clonazepam (KlonoPIN) 0.5 mg BID PO 02/16/21 21:00 02/27/21 19:54 DC 02/27/21 10:11 Dicyclomine HCl (Bentyl) 20 mg TID PO 02/16/21 21:00 03/04/21 09:21 DC 03/03/21 21:07 Diphenoxylate HCl/ Atropine (Lomotil) 2 tab BID PO 02/16/21 21:00 03/04/21 09:21 DC 03/03/21 21:08 Divalproex Sodium (Depakote Er) 1,000 mg HS PO 02/16/21 21:00 03/07/21 20:15 DC 03/04/21 21:43 Duloxetine HCl (Cymbalta) 30 mg BID PO 02/16/21 21:00 03/07/21 20:15 DC 03/06/21 08:14 Fluticasone Propionate (Flonase) 2 spray DAILY NS 02/17/21 09:00 04/26/21 08:38 Furosemide (Lasix) 20 mg DAILY PO 02/17/21 09:00 03/04/21 09:21 DC 03/03/21 08:32 Gabapentin (Neurontin) 300 mg QID PO 02/16/21 17:00 04/26/21 19:56 Hydroxyurea (Hydrea) 1,000 mg DAILY PO 02/17/21 09:00 04/26/21 08:38 Levetiracetam (Keppra) 250 mg BID PO 02/16/21 21:00 03/02/21 14:48 DC 03/02/21 09:54 Lidocaine (Lidoderm) 1 patch DAILY TP 02/17/21 09:00 02/17/21 09:24 DC Al Hydroxide/Mg Hydroxide (Mylanta Plus Xs) 15 ml PRN AFTMEALHC PRN PO DYSPEPSIA 02/16/21 17:00 02/16/21 17:36 DC Mirabegron (Myrbetriq) 50 mg DAILY PO 02/17/21 09:00 03/04/21 09:21 DC 03/03/21 08:30 Nystatin (Nystop) 1 debra BID TP 02/16/21 21:00 04/26/21 09:00 Pantoprazole Sodium (Protonix) 40 mg DAILYAC PO 02/17/21 07:30 04/26/21 08:38 Potassium Chloride (Klor-Con) 40 meq DAILY PO 02/17/21 09:00 03/04/21 09:21 DC 03/03/21 08:32 Sulfasalazine (Azulfidine) 500 mg TID PO 02/16/21 21:00 03/07/21 20:15 DC 03/06/21 13:05 Trazodone HCl (Desyrel) 50 mg QHS PO 02/16/21 21:00 04/26/21 19:55 Non-Formulary Medication (Albuterol Sulfate (Albuterol Sulfate Conc Neb Soln)) 1 vial PRN Q4HRS PRN NEB SHORTNESS OF BREATH 02/16/21 17:00 02/16/21 17:49 DC Ascorbic Acid (Vitamin C) 1,000 mg DAILY PO 02/17/21 09:00 03/04/21 09:21 DC 03/03/21 08:34 Diltiazem HCl (Cardizem) 60 mg BID PO 02/16/21 21:00 04/26/21 19:55 Lactobacillus Rhamnosus (Culturelle) 1 cap DAILY PO 02/17/21 09:00 03/04/21 09:21 DC 03/03/21 08:32 Amylase/Lipase/ Protease (Zenpep 10,000) 1 cap TIDBFRMEAL PO 02/17/21 07:30 04/26/21 16:18 Non-Formulary Medication (Magnesium Hydroxide (Milk Of Magnesia)) 2,400 mg PRN DAILY PRN PO CONSTIPATION 02/16/21 17:00 02/16/21 17:37 DC Magnesium Oxide (Magnesium Oxide) 400 mg DAILY PO 02/17/21 09:00 03/04/21 09:21 DC 03/03/21 08:31 Non-Formulary Medication (Methyl Salicylate/ Menthol (Analgesic [place])) 1 debra PRN Q6HRS PRN TP MUSCLE PAIN 02/16/21 17:00 02/16/21 17:37 DC Non-Formulary Medication (Umeclidinium [place] (Incruse Ellipta)) 62.5 mcg DAILY IH 02/17/21 09:00 02/16/21 17:49 DC Non-Formulary Medication (Zinc Gluconate ) 50 mg DAILY PO 02/17/21 09:00 02/16/21 17:46 DC Albuterol/ Ipratropium (Duoneb) 3 ml RTQID NEB 02/16/21 20:00 02/17/21 19:52 DC Albuterol Sulfate (Ventolin) 2.5 mg PRN Q4HRS PRN NEB SHORTNESS OF BREATH 02/16/21 18:00 Influenza Virus Vaccine Quadrival (Flulaval Quad [id number] Syringe) 0.5 ml ONCE ONCE VAX IM 02/17/21 09:00 02/17/21 09:01 DC 02/17/21 09:21 Lidocaine (Lidoderm) 1 patch DAILY PRN TP pain 02/17/21 09:30 03/29/21 12:01 DC 03/28/21 08:37 Albuterol/ Ipratropium (Combivent Respimat 20-100 Mcg) 1 puff RTQID INH 02/17/21 20:00 04/26/21 19:57 Sertraline HCl (Zoloft) 25 mg DAILY PO 02/22/21 09:00 02/24/21 10:00 DC 02/24/21 09:59 Sertraline HCl (Zoloft) 50 mg DAILY PO 02/25/21 09:00 03/01/21 18:30 DC 03/01/21 10:07 Olanzapine (ZyPREXA ZYDIS) 5 mg 1X ONCE PO 02/26/21 12:03 02/26/21 12:09 DC 02/26/21 12:25 Clonazepam (KlonoPIN) 0.5 mg DAILY PO 02/28/21 09:00 03/02/21 07:00 DC 03/01/21 10:07 Bupropion HCl (Wellbutrin Xl) 150 mg DAILY PO 03/02/21 09:00 03/08/21 15:46 DC 03/08/21 08:41 Levetiracetam (Keppra) 250 mg DAILY PO 03/03/21 09:00 04/10/21 00:12 DC 04/09/21 08:53 Aripiprazole (Abilify) 5 mg DAILY PO 03/05/21 09:00 04/26/21 08:37 Ondansetron HCl (Zofran Odt) 4 mg PRN Q4HRS PRN PO NAUSEA/VOMITING 03/06/21 19:30 04/02/21 09:23 Potassium Chloride (Klor-Con) 30 meq BID PO 03/07/21 09:00 04/26/21 19:56 Divalproex Sodium (Depakote Er) 1,000 mg 1700 PO 03/08/21 17:00 03/12/21 00:01 DC 03/11/21 17:27 Duloxetine HCl (Cymbalta) 30 mg 0900,1700 PO 03/08/21 17:00 04/26/21 16:18 Sulfasalazine (Azulfidine) 500 mg 0900,1300,1700 PO 03/08/21 09:00 04/26/21 16:18 Bupropion HCl (Wellbutrin Xl) 300 mg DAILY PO 03/09/21 09:00 04/26/21 08:38 Potassium Chloride (Klor-Con) 40 meq 1630,1730 PO 03/08/21 16:30 03/08/21 18:04 DC 03/08/21 16:57 Potassium Chloride (Klor-Con) 40 meq 1700,1800 PO 03/08/21 17:15 03/08/21 18:04 DC 03/08/21 17:56 Divalproex Sodium (Depakote Sprinkles) 500 mg BID PO 03/12/21 09:00 04/19/21 17:44 DC 04/19/21 08:27 Clotrimazole (Mycelex-7) 1 debra QHS VG 03/18/21 21:00 03/25/21 20:59 DC 03/24/21 20:20 Dicyclomine HCl (Bentyl) 20 mg TID PO 03/18/21 21:00 04/26/21 19:58 Diphenoxylate HCl/ Atropine (Lomotil) 2 tab BID PO 03/18/21 21:00 04/26/21 19:57 Lidocaine (Lidoderm) 1 patch PRN DAILY PRN TP pain 03/29/21 12:15 Fluconazole (Diflucan) 100 mg Q72H PO 04/16/21 12:00 04/19/21 12:01 DC 04/19/21 12:07 Divalproex Sodium (Depakote Er) 1,000 mg QHS PO 04/19/21 21:00 04/26/21 19:56 Olanzapine (ZyPREXA ZYDIS) 2.5 mg PRN Q2HR PRN PO PSYCHOSIS 04/22/21 15:45 04/22/21 15:59 Acetaminophen (Tylenol) 500 mg PRN Q6HRS PRN PO MILD PAIN / TEMP > 100.3'F 04/25/21 20:30 04/26/21 12:02 I have reviewed the current psychotropics carefully including drug interactions. Risk benefit ratio favors no change other than as noted in my dictated progress note. Diagnosis: Problems: (1) Impulse control disorder, unspecified (2) Mild cognitive impairment (3) Anxiety disorder, unspecified (4) Bipolar disorder, curr episode mixed, severe, with psychotic features (5) Bipolar 1 disorder, depressed NITHIN STEVENS MD Apr 27, 2021 07:47
[2021-04-27] MEDS: FLUTICASONE 50MCG/NASAL SPRAY 16GM BOTTLE. NS SCH (08:13)
[2021-04-27] MEDS: NYSTATIN TOPICAL POWDER 15GM BOTTLE. TP SCH ×2 (08:13→20:49)
[2021-04-27] MEDS: IPRATROPIUM/ALBUTEROL 20/100mcg/INH INHALER. INH SCH ×4 (08:13→20:46)
[2021-04-27] MEDS: DIPHENOXYLATE/ATROPINE TABLET. PO SCH ×2 (08:14→20:45)
[2021-04-27] MEDS: dilTIAZem HCL 30 MG TABLET PO SCH ×2 (08:14→20:45)
[2021-04-27] MEDS: buPROPion XL 300 MG TAB.ER.24H. PO SCH (08:15)
[2021-04-27] MEDS: GABAPENTIN 300 MG CAPSULE. PO SCH ×4 (08:15→20:45)
[2021-04-27] MEDS: POTASSIUM CHLORIDE 10 MEQ TABLET.ER. PO SCH ×2 (08:15→20:48)
[2021-04-27] MEDS: DULoxetine HCL 30 MG CAPSULE.DR PO SCH ×2 (08:15→16:17)
[2021-04-27] MEDS: ARIPiprazole 5 MG TABLET PO SCH (08:15)
[2021-04-27] MEDS: PANTOPRAZOLE 40 MG TABLET. PO SCH (08:16)
[2021-04-27] MEDS: sulfaSALAzine 500 MG TABLET PO SCH ×3 (08:16→16:17)
[2021-04-27] MEDS: LIPASE/PROTEAS/AMYLAS 10/32/42 CAPSULE.DR. PO SCH ×3 (08:16→16:17)
[2021-04-27] MEDS: HYDROXYUREA 500 MG CAPSULE PO SCH (08:17)
[2021-04-27] MEDS: DICYCLOMINE HCL 20 MG TABLET PO SCH ×3 (08:18→20:44)
--- NOTE | 2021-04-27 11:09 | NUR ---
WEEKLY ACTIVITY THERAPY NOTE Date of Admission:02/16/21 Date of AT Assessment: 02/17 Precipitating behaviors that initiated intake and admission:putting self on floor, combative towards staff, refusing O2, threw medications, expresses she wants to & removes O2 Goal aimed: increase socialization and engagement Initial Goal: Pt will participate in at least three individual or group Activity Therapy sessions per week Goal changed 04/05:Pt will participate in at least three Activity Therapy sessions per week with moderate engagement Goal changed 04/13:Pt will participate in at least five Activity Therapy sessions per week Weekly progress towards goal: achieved, 02/19 Group participation level: 1 min, 2 mod, 7 full Weekly highlights: answered trivia with and without clues , answered a couple tv show theme songs Saturday, watched devi varma videos and contributed to group discussion Saturday, answered songs and stated Saturday, answered would you rather and participated in exercises Saturday Behaviors observed: a bit annoyed with distracting peers, redirected to put nasal cannula on, direct prompting at times Plan: change goal to: Pt will participate in all Activity Therapy sessions per week Beneficial adaptations:direct prompting, socialization and engagement
--- NOTE | 2021-04-27 13:57 | NUR ---
Patient has been delusional and paranoid at times during this shift. She asked for her purse stating that she needed money out of it to buy something. She also expressed concern that another patient would find out she was incontinent and make fun of her for it; the other patient is profoundly demented. Will continue to monitor and report to oncoming shift.
[2021-04-27 15:45] VITALS: BP 122/74
--- NOTE | 2021-04-27 17:50 | NUR ---
Treatment team update: Pt is eating between 75-100% of meals; the percentage depends on what is on her tray. Pt is sleeping up to 7.5 hours per night. Pt is compliant with medications and cares; although it is noted that she is having multiple bowel movements which is noted to potentially be due to her IBS or Chron's. Pt is more coherent and less disorganized despite her periods of delusions. Pt has also been placed in a wheelchair and has started propelling herself half the time. Pt has attended all groups for the week (02/19) with moderate to full participation. SW is continuing to work with the [facility] and [facility] on getting a guardian for pt. Once that happens, pt will be able to be moved to placement.
[2021-04-27] MEDS: DIVALPROEX ER 500 MG TAB.ER.24H PO SCH (20:44)
[2021-04-27] MEDS: traZODone 50 MG TABLET. PO SCH (20:45)
--- NOTE | 2021-04-27 21:05 | PDOC ---
Exam Note: Napoleon Note: Please also refer to the separate dictated note~for this date of service dictated separately.~Patient seen individually. Discussed the patient with Nursing staff reviewed the chart.~Reviewed interim history and current functioning. Reviewed vital signs,~Labs/ Radiology~and current medications noted below. Continue current treatment with the changes noted in the dictated addendum note Assessment: Vital Signs/I&O: Vital Signs Date Time Temp Pulse Resp B/P (MAP) Pulse Ox O2 Delivery O2 Flow Rate FiO2 04/27/21 20:45 95 122/74 04/27/21 15:45 99.1 18 95 Nasal Cannula 2.0 I & O 04/26/21 04/26/21 04/27/21 14:59 22:59 06:59 Intake Total 960 ml 480 ml Balance 960 ml 480 ml Labs: Laboratory Tests Test 04/27/21 06:00 SARS-CoV-2 (PCR) Not detected (NOT DETECTD) Current Medications: Meds: Laboratory Tests Test 04/27/21 06:00 Coronavirus (COVID-19)(PCR) Not detected Current Medications Medications (Trade) Dose Ordered Sig/Mya Route PRN Reason Start Time Stop Time Status Last Admin Dose Admin Acetaminophen (Tylenol) 650 mg PRN Q6HRS PRN PO MILD PAIN / TEMP > 100.3'F 02/16/21 15:45 03/04/21 09:21 DC 02/18/21 06:31 Multi-Ingredient Ointment (Analgesic [place]) 1 debra PRN QID PRN TP MUSCLE PAIN 02/16/21 15:45 03/04/21 09:21 DC Al Hydroxide/Mg Hydroxide (Mylanta Plus Xs) 15 ml PRN AFTMEALHC PRN PO DYSPEPSIA 02/16/21 15:45 03/04/21 22:05 Magnesium Hydroxide (Milk Of Magnesia) 2,400 mg PRN QHS PRN PO 1ST CHOICE CONSTIPATION 02/16/21 15:45 03/04/21 09:21 DC Acetaminophen (Tylenol) 1,000 mg Q6HRS PRN PO pain or fever 02/16/21 17:00 02/16/21 17:35 DC Acetaminophen (Tylenol) 500 mg Q4HRS PRN PO MILD PAIN 1-3 02/16/21 17:00 02/16/21 17:36 DC Bisacodyl (Dulcolax Tab) 5 mg PRN DAILY PRN PO 2ND CHOICE CONSTIPATION 02/16/21 17:00 03/04/21 09:21 DC Vitamin D (Vitamin D3) 50,000 unit WEEKLY PO 02/22/21 09:00 03/04/21 09:21 DC 02/22/21 07:16 Clonazepam (KlonoPIN) 0.5 mg BID PO 02/16/21 21:00 02/27/21 19:54 DC 02/27/21 10:11 Dicyclomine HCl (Bentyl) 20 mg TID PO 02/16/21 21:00 03/04/21 09:21 DC 03/03/21 21:07 Diphenoxylate HCl/ Atropine (Lomotil) 2 tab BID PO 02/16/21 21:00 03/04/21 09:21 DC 03/03/21 21:08 Divalproex Sodium (Depakote Er) 1,000 mg HS PO 02/16/21 21:00 03/07/21 20:15 DC 03/04/21 21:43 Duloxetine HCl (Cymbalta) 30 mg BID PO 02/16/21 21:00 03/07/21 20:15 DC 03/06/21 08:14 Fluticasone Propionate (Flonase) 2 spray DAILY NS 02/17/21 09:00 04/27/21 08:13 Furosemide (Lasix) 20 mg DAILY PO 02/17/21 09:00 03/04/21 09:21 DC 03/03/21 08:32 Gabapentin (Neurontin) 300 mg QID PO 02/16/21 17:00 04/27/21 20:45 Hydroxyurea (Hydrea) 1,000 mg DAILY PO 02/17/21 09:00 04/27/21 08:17 Levetiracetam (Keppra) 250 mg BID PO 02/16/21 21:00 03/02/21 14:48 DC 03/02/21 09:54 Lidocaine (Lidoderm) 1 patch DAILY TP 02/17/21 09:00 02/17/21 09:24 DC Al Hydroxide/Mg Hydroxide (Mylanta Plus Xs) 15 ml PRN AFTMEALHC PRN PO DYSPEPSIA 02/16/21 17:00 02/16/21 17:36 DC Mirabegron (Myrbetriq) 50 mg DAILY PO 02/17/21 09:00 03/04/21 09:21 DC 03/03/21 08:30 Nystatin (Nystop) 1 debra BID TP 02/16/21 21:00 04/27/21 20:49 Pantoprazole Sodium (Protonix) 40 mg DAILYAC PO 02/17/21 07:30 04/27/21 08:16 Potassium Chloride (Klor-Con) 40 meq DAILY PO 02/17/21 09:00 03/04/21 09:21 DC 03/03/21 08:32 Sulfasalazine (Azulfidine) 500 mg TID PO 02/16/21 21:00 03/07/21 20:15 DC 03/06/21 13:05 Trazodone HCl (Desyrel) 50 mg QHS PO 02/16/21 21:00 04/27/21 20:45 Non-Formulary Medication (Albuterol Sulfate (Albuterol Sulfate Conc Neb Soln)) 1 vial PRN Q4HRS PRN NEB SHORTNESS OF BREATH 02/16/21 17:00 02/16/21 17:49 DC Ascorbic Acid (Vitamin C) 1,000 mg DAILY PO 02/17/21 09:00 03/04/21 09:21 DC 03/03/21 08:34 Diltiazem HCl (Cardizem) 60 mg BID PO 02/16/21 21:00 04/27/21 20:45 Lactobacillus Rhamnosus (Culturelle) 1 cap DAILY PO 02/17/21 09:00 03/04/21 09:21 DC 03/03/21 08:32 Amylase/Lipase/ Protease (Zenpep 10,000) 1 cap TIDBFRMEAL PO 02/17/21 07:30 04/27/21 16:17 Non-Formulary Medication (Magnesium Hydroxide (Milk Of Magnesia)) 2,400 mg PRN DAILY PRN PO CONSTIPATION 02/16/21 17:00 02/16/21 17:37 DC Magnesium Oxide (Magnesium Oxide) 400 mg DAILY PO 02/17/21 09:00 03/04/21 09:21 DC 03/03/21 08:31 Non-Formulary Medication (Methyl Salicylate/ Menthol (Analgesic [place])) 1 debra PRN Q6HRS PRN TP MUSCLE PAIN 02/16/21 17:00 02/16/21 17:37 DC Non-Formulary Medication (Umeclidinium [place] (Incruse Ellipta)) 62.5 mcg DAILY IH 02/17/21 09:00 02/16/21 17:49 DC Non-Formulary Medication (Zinc Gluconate ) 50 mg DAILY PO 02/17/21 09:00 02/16/21 17:46 DC Albuterol/ Ipratropium (Duoneb) 3 ml RTQID NEB 02/16/21 20:00 02/17/21 19:52 DC Albuterol Sulfate (Ventolin) 2.5 mg PRN Q4HRS PRN NEB SHORTNESS OF BREATH 02/16/21 18:00 Influenza Virus Vaccine Quadrival (Flulaval Quad [id number] Syringe) 0.5 ml ONCE ONCE VAX IM 02/17/21 09:00 02/17/21 09:01 DC 02/17/21 09:21 Lidocaine (Lidoderm) 1 patch DAILY PRN TP pain 02/17/21 09:30 03/29/21 12:01 DC 03/28/21 08:37 Albuterol/ Ipratropium (Combivent Respimat 20-100 Mcg) 1 puff RTQID INH 02/17/21 20:00 04/27/21 20:46 Sertraline HCl (Zoloft) 25 mg DAILY PO 02/22/21 09:00 02/24/21 10:00 DC 02/24/21 09:59 Sertraline HCl (Zoloft) 50 mg DAILY PO 02/25/21 09:00 03/01/21 18:30 DC 03/01/21 10:07 Olanzapine (ZyPREXA ZYDIS) 5 mg 1X ONCE PO 02/26/21 12:03 02/26/21 12:09 DC 02/26/21 12:25 Clonazepam (KlonoPIN) 0.5 mg DAILY PO 02/28/21 09:00 03/02/21 07:00 DC 03/01/21 10:07 Bupropion HCl (Wellbutrin Xl) 150 mg DAILY PO 03/02/21 09:00 03/08/21 15:46 DC 03/08/21 08:41 Levetiracetam (Keppra) 250 mg DAILY PO 03/03/21 09:00 04/10/21 00:12 DC 04/09/21 08:53 Aripiprazole (Abilify) 5 mg DAILY PO 03/05/21 09:00 04/27/21 08:15 Ondansetron HCl (Zofran Odt) 4 mg PRN Q4HRS PRN PO NAUSEA/VOMITING 03/06/21 19:30 04/02/21 09:23 Potassium Chloride (Klor-Con) 30 meq BID PO 03/07/21 09:00 04/27/21 20:48 Divalproex Sodium (Depakote Er) 1,000 mg 1700 PO 03/08/21 17:00 03/12/21 00:01 DC 03/11/21 17:27 Duloxetine HCl (Cymbalta) 30 mg 0900,1700 PO 03/08/21 17:00 04/27/21 16:17 Sulfasalazine (Azulfidine) 500 mg 0900,1300,1700 PO 03/08/21 09:00 04/27/21 16:17 Bupropion HCl (Wellbutrin Xl) 300 mg DAILY PO 03/09/21 09:00 04/27/21 08:15 Potassium Chloride (Klor-Con) 40 meq 1630,1730 PO 03/08/21 16:30 03/08/21 18:04 DC 03/08/21 16:57 Potassium Chloride (Klor-Con) 40 meq 1700,1800 PO 03/08/21 17:15 03/08/21 18:04 DC 03/08/21 17:56 Divalproex Sodium (Depakote Sprinkles) 500 mg BID PO 03/12/21 09:00 04/19/21 17:44 DC 04/19/21 08:27 Clotrimazole (Mycelex-7) 1 debar QHS VG 03/18/21 21:00 03/25/21 20:59 DC 03/24/21 20:20 Dicyclomine HCl (Bentyl) 20 mg TID PO 03/18/21 21:00 04/27/21 20:44 Diphenoxylate HCl/ Atropine (Lomotil) 2 tab BID PO 03/18/21 21:00 04/27/21 20:45 Lidocaine (Lidoderm) 1 patch PRN DAILY PRN TP pain 03/29/21 12:15 Fluconazole (Diflucan) 100 mg Q72H PO 04/16/21 12:00 04/19/21 12:01 DC 04/19/21 12:07 Divalproex Sodium (Depakote Er) 1,000 mg QHS PO 04/19/21 21:00 04/27/21 20:44 Olanzapine (ZyPREXA ZYDIS) 2.5 mg PRN Q2HR PRN PO PSYCHOSIS 04/22/21 15:45 04/22/21 15:59 Acetaminophen (Tylenol) 500 mg PRN Q6HRS PRN PO MILD PAIN / TEMP > 100.3'F 04/25/21 20:30 04/26/21 12:02 I have reviewed the current psychotropics carefully including drug interactions. Risk benefit ratio favors no change other than as noted in my dictated progress note. Diagnosis: Problems: (1) Impulse control disorder, unspecified (2) Mild cognitive impairment (3) Anxiety disorder, unspecified (4) Bipolar disorder, curr episode mixed, severe, with psychotic features (5) Bipolar 1 disorder, depressed NITHIN STEVENS MD Apr 27, 2021 21:05
--- NOTE | 2021-04-28 01:04 | NUR ---
Nursing Note Pt in room, pleasant and cooperative, takes po meds willingly with orange juice. States she had an uneventful day. Denies complaints. Resting well.
[2021-04-28 06:03] VITALS: BP 100/60
--- NOTE | 2021-04-28 06:50 | PDOC ---
Exam Note: Napoleon Note: This note is a late entry for 04/27/2021 covers elements not covered in my initial note. Subjective: The patient was reviewed at treatment team meeting individually in the morning on 04/27/2021 with Lety Farley, Rosalva Hutton, and Archana Dillard (social security assessor), Jessie Naylor (Fluorescent Lamp Replacer), Bessy, activity therapy, and Hadley BARR, discussed and reviewed the chart. The patient slept 7- 1/4 hours previous night. She has been more coherent, less disorganized. Appetite 80%. She propels herself in the wheelchair and she had a flu vaccine in February and no Covid vaccination. She does complain of diarrhea consequent to irritable bowel. She has attended all groups 02/19 in the past one week. The court has been unable to provide a guardian for her and adult protective services maybe involved to assist with this. Review of Systems: Impaired ambulation, in wheelchair. Shortness of breath on O2 supplements 2 L. No CV, , eye, ENT system symptoms on review. Mental Status Exam: The patient is oriented to herself and situation. She is pleasant, verbal, interactive, very sad that her son Patel had stepped down from being power of associate attorney. I guess they do not love me. I processed this with her at some length. Speech coherent. Abstraction fair. Computation impaired. Language function intact. Mood and affect withdrawn. Laboratory Data: Reviewed. Impression: Bipolar disorder, depressed. Anxiety disorder unspecified. I mpulse control disorder unspecified. Plan: No change from initial note. Assessment: Vital Signs/I&O: Vital Signs Date Time Temp Pulse Resp B/P (MAP) Pulse Ox O2 Delivery O2 Flow Rate FiO2 04/28/21 06:03 98.5 86 17 100/60 (73) 90 Nasal Cannula 2.0 I & O 04/27/21 04/27/21 04/28/21 15:00 23:00 07:00 Intake Total 1440 ml 360 ml Balance 1440 ml 360 ml Current Medications: Meds: Current Medications Medications (Trade) Dose Ordered Sig/Mya Route PRN Reason Start Time Stop Time Status Last Admin Dose Admin Acetaminophen (Tylenol) 650 mg PRN Q6HRS PRN PO MILD PAIN / TEMP > 100.3'F 02/16/21 15:45 03/04/21 09:21 DC 02/18/21 06:31 Multi-Ingredient Ointment (Analgesic [place]) 1 debra PRN QID PRN TP MUSCLE PAIN 02/16/21 15:45 03/04/21 09:21 DC Al Hydroxide/Mg Hydroxide (Mylanta Plus Xs) 15 ml PRN AFTMEALHC PRN PO DYSPEPSIA 02/16/21 15:45 03/04/21 22:05 Magnesium Hydroxide (Milk Of Magnesia) 2,400 mg PRN QHS PRN PO 1ST CHOICE CONSTIPATION 02/16/21 15:45 03/04/21 09:21 DC Acetaminophen (Tylenol) 1,000 mg Q6HRS PRN PO pain or fever 02/16/21 17:00 02/16/21 17:35 DC Acetaminophen (Tylenol) 500 mg Q4HRS PRN PO MILD PAIN 1-3 02/16/21 17:00 02/16/21 17:36 DC Bisacodyl (Dulcolax Tab) 5 mg PRN DAILY PRN PO 2ND CHOICE CONSTIPATION 02/16/21 17:00 03/04/21 09:21 DC Vitamin D (Vitamin D3) 50,000 unit WEEKLY PO 02/22/21 09:00 03/04/21 09:21 DC 02/22/21 07:16 Clonazepam (KlonoPIN) 0.5 mg BID PO 02/16/21 21:00 02/27/21 19:54 DC 02/27/21 10:11 Dicyclomine HCl (Bentyl) 20 mg TID PO 02/16/21 21:00 03/04/21 09:21 DC 03/03/21 21:07 Diphenoxylate HCl/ Atropine (Lomotil) 2 tab BID PO 02/16/21 21:00 03/04/21 09:21 DC 03/03/21 21:08 Divalproex Sodium (Depakote Er) 1,000 mg HS PO 02/16/21 21:00 03/07/21 20:15 DC 03/04/21 21:43 Duloxetine HCl (Cymbalta) 30 mg BID PO 02/16/21 21:00 03/07/21 20:15 DC 03/06/21 08:14 Fluticasone Propionate (Flonase) 2 spray DAILY NS 02/17/21 09:00 04/27/21 08:13 Furosemide (Lasix) 20 mg DAILY PO 02/17/21 09:00 03/04/21 09:21 DC 03/03/21 08:32 Gabapentin (Neurontin) 300 mg QID PO 02/16/21 17:00 04/27/21 20:45 Hydroxyurea (Hydrea) 1,000 mg DAILY PO 02/17/21 09:00 04/27/21 08:17 Levetiracetam (Keppra) 250 mg BID PO 02/16/21 21:00 03/02/21 14:48 DC 03/02/21 09:54 Lidocaine (Lidoderm) 1 patch DAILY TP 02/17/21 09:00 02/17/21 09:24 DC Al Hydroxide/Mg Hydroxide (Mylanta Plus Xs) 15 ml PRN AFTMEALHC PRN PO DYSPEPSIA 02/16/21 17:00 02/16/21 17:36 DC Mirabegron (Myrbetriq) 50 mg DAILY PO 02/17/21 09:00 03/04/21 09:21 DC 03/03/21 08:30 Nystatin (Nystop) 1 debra BID TP 02/16/21 21:00 04/27/21 20:49 Pantoprazole Sodium (Protonix) 40 mg DAILYAC PO 02/17/21 07:30 04/27/21 08:16 Potassium Chloride (Klor-Con) 40 meq DAILY PO 02/17/21 09:00 03/04/21 09:21 DC 03/03/21 08:32 Sulfasalazine (Azulfidine) 500 mg TID PO 02/16/21 21:00 03/07/21 20:15 DC 03/06/21 13:05 Trazodone HCl (Desyrel) 50 mg QHS PO 02/16/21 21:00 04/27/21 20:45 Non-Formulary Medication (Albuterol Sulfate (Albuterol Sulfate Conc Neb Soln)) 1 vial PRN Q4HRS PRN NEB SHORTNESS OF BREATH 02/16/21 17:00 02/16/21 17:49 DC Ascorbic Acid (Vitamin C) 1,000 mg DAILY PO 02/17/21 09:00 03/04/21 09:21 DC 03/03/21 08:34 Diltiazem HCl (Cardizem) 60 mg BID PO 02/16/21 21:00 04/27/21 20:45 Lactobacillus Rhamnosus (Culturelle) 1 cap DAILY PO 02/17/21 09:00 03/04/21 09:21 DC 03/03/21 08:32 Amylase/Lipase/ Protease (Zenpep 10,000) 1 cap TIDBFRMEAL PO 02/17/21 07:30 04/27/21 16:17 Non-Formulary Medication (Magnesium Hydroxide (Milk Of Magnesia)) 2,400 mg PRN DAILY PRN PO CONSTIPATION 02/16/21 17:00 02/16/21 17:37 DC Magnesium Oxide (Magnesium Oxide) 400 mg DAILY PO 02/17/21 09:00 03/04/21 09:21 DC 03/03/21 08:31 Non-Formulary Medication (Methyl Salicylate/ Menthol (Analgesic [place])) 1 debra PRN Q6HRS PRN TP MUSCLE PAIN 02/16/21 17:00 02/16/21 17:37 DC Non-Formulary Medication (Umeclidinium [place] (Incruse Ellipta)) 62.5 mcg DAILY IH 02/17/21 09:00 02/16/21 17:49 DC Non-Formulary Medication (Zinc Gluconate ) 50 mg DAILY PO 02/17/21 09:00 02/16/21 17:46 DC Albuterol/ Ipratropium (Duoneb) 3 ml RTQID NEB 02/16/21 20:00 02/17/21 19:52 DC Albuterol Sulfate (Ventolin) 2.5 mg PRN Q4HRS PRN NEB SHORTNESS OF BREATH 02/16/21 18:00 Influenza Virus Vaccine Quadrival (Flulaval Quad [id number] Syringe) 0.5 ml ONCE ONCE VAX IM 02/17/21 09:00 02/17/21 09:01 DC 02/17/21 09:21 Lidocaine (Lidoderm) 1 patch DAILY PRN TP pain 02/17/21 09:30 03/29/21 12:01 DC 03/28/21 08:37 Albuterol/ Ipratropium (Combivent Respimat 20-100 Mcg) 1 puff RTQID INH 02/17/21 20:00 04/27/21 20:46 Sertraline HCl (Zoloft) 25 mg DAILY PO 02/22/21 09:00 02/24/21 10:00 DC 02/24/21 09:59 Sertraline HCl (Zoloft) 50 mg DAILY PO 02/25/21 09:00 03/01/21 18:30 DC 03/01/21 10:07 Olanzapine (ZyPREXA ZYDIS) 5 mg 1X ONCE PO 02/26/21 12:03 02/26/21 12:09 DC 02/26/21 12:25 Clonazepam (KlonoPIN) 0.5 mg DAILY PO 02/28/21 09:00 03/02/21 07:00 DC 03/01/21 10:07 Bupropion HCl (Wellbutrin Xl) 150 mg DAILY PO 03/02/21 09:00 03/08/21 15:46 DC 03/08/21 08:41 Levetiracetam (Keppra) 250 mg DAILY PO 03/03/21 09:00 04/10/21 00:12 DC 04/09/21 08:53 Aripiprazole (Abilify) 5 mg DAILY PO 03/05/21 09:00 04/27/21 08:15 Ondansetron HCl (Zofran Odt) 4 mg PRN Q4HRS PRN PO NAUSEA/VOMITING 03/06/21 19:30 04/02/21 09:23 Potassium Chloride (Klor-Con) 30 meq BID PO 03/07/21 09:00 04/27/21 20:48 Divalproex Sodium (Depakote Er) 1,000 mg 1700 PO 03/08/21 17:00 03/12/21 00:01 DC 03/11/21 17:27 Duloxetine HCl (Cymbalta) 30 mg 0900,1700 PO 03/08/21 17:00 04/27/21 16:17 Sulfasalazine (Azulfidine) 500 mg 0900,1300,1700 PO 03/08/21 09:00 04/27/21 16:17 Bupropion HCl (Wellbutrin Xl) 300 mg DAILY PO 03/09/21 09:00 04/27/21 08:15 Potassium Chloride (Klor-Con) 40 meq 1630,1730 PO 03/08/21 16:30 03/08/21 18:04 DC 03/08/21 16:57 Potassium Chloride (Klor-Con) 40 meq 1700,1800 PO 03/08/21 17:15 03/08/21 18:04 DC 03/08/21 17:56 Divalproex Sodium (Depakote Sprinkles) 500 mg BID PO 03/12/21 09:00 04/19/21 17:44 DC 04/19/21 08:27 Clotrimazole (Mycelex-7) 1 debra QHS VG 03/18/21 21:00 03/25/21 20:59 DC 03/24/21 20:20 Dicyclomine HCl (Bentyl) 20 mg TID PO 03/18/21 21:00 04/27/21 20:44 Diphenoxylate HCl/ Atropine (Lomotil) 2 tab BID PO 03/18/21 21:00 04/27/21 20:45 Lidocaine (Lidoderm) 1 patch PRN DAILY PRN TP pain 03/29/21 12:15 Fluconazole (Diflucan) 100 mg Q72H PO 04/16/21 12:00 04/19/21 12:01 DC 04/19/21 12:07 Divalproex Sodium (Depakote Er) 1,000 mg QHS PO 04/19/21 21:00 04/27/21 20:44 Olanzapine (ZyPREXA ZYDIS) 2.5 mg PRN Q2HR PRN PO PSYCHOSIS 04/22/21 15:45 04/22/21 15:59 Acetaminophen (Tylenol) 500 mg PRN Q6HRS PRN PO MILD PAIN / TEMP > 100.3'F 04/25/21 20:30 04/26/21 12:02 I have reviewed the current psychotropics carefully including drug interactions. Risk benefit ratio favors no change other than as noted in my dictated progress note. Diagnosis: Problems: (1) Impulse control disorder, unspecified (2) Mild cognitive impairment (3) Anxiety disorder, unspecified (4) Bipolar disorder, curr episode mixed, severe, with psychotic features (5) Bipolar 1 disorder, depressed HILDA,MAN Joon Apr 28, 2021 06:50
[2021-04-28] MEDS: buPROPion XL 300 MG TAB.ER.24H. PO SCH (08:29)
[2021-04-28] MEDS: DICYCLOMINE HCL 20 MG TABLET PO SCH ×3 (08:30→21:47)
[2021-04-28] MEDS: DIPHENOXYLATE/ATROPINE TABLET. PO SCH ×2 (08:30→21:48)
[2021-04-28] MEDS: DULoxetine HCL 30 MG CAPSULE.DR PO SCH ×2 (08:32→16:22)
[2021-04-28] MEDS: LIPASE/PROTEAS/AMYLAS 10/32/42 CAPSULE.DR. PO SCH ×3 (08:32→16:22)
[2021-04-28] MEDS: dilTIAZem HCL 30 MG TABLET PO SCH ×2 (08:32→21:46)
[2021-04-28] MEDS: HYDROXYUREA 500 MG CAPSULE PO SCH (08:33)
[2021-04-28] MEDS: sulfaSALAzine 500 MG TABLET PO SCH ×3 (08:34→16:22)
[2021-04-28] MEDS: FLUTICASONE 50MCG/NASAL SPRAY 16GM BOTTLE. NS SCH (08:34)
[2021-04-28] MEDS: POTASSIUM CHLORIDE 10 MEQ TABLET.ER. PO SCH ×2 (08:34→21:47)
[2021-04-28] MEDS: PANTOPRAZOLE 40 MG TABLET. PO SCH (08:34)
[2021-04-28] MEDS: GABAPENTIN 300 MG CAPSULE. PO SCH ×4 (08:34→21:48)
[2021-04-28] MEDS: ARIPiprazole 5 MG TABLET PO SCH (08:34)
[2021-04-28] MEDS: NYSTATIN TOPICAL POWDER 15GM BOTTLE. TP SCH ×2 (08:34→21:46)
[2021-04-28] MEDS: IPRATROPIUM/ALBUTEROL 20/100mcg/INH INHALER. INH SCH ×4 (08:35→21:46)
--- NOTE | 2021-04-28 10:25 | NUR ---
Nursing Note Pt is delusional thinks her kids are driving her crazy today, is frustrated with her children being loud today. Med compliant and cooperative with assessment.
[2021-04-28 15:24] VITALS: BP 122/71
--- NOTE | 2021-04-28 21:05 | PDOC ---
Exam Note: Napoleon Note: Please also refer to the separate dictated note~for this date of service dictated separately.~Patient seen individually. Discussed the patient with Nursing staff reviewed the chart.~Reviewed interim history and current functioning. Reviewed vital signs,~Labs/ Radiology~and current medications noted below. Continue current treatment with the changes noted in the dictated addendum note Assessment: Vital Signs/I&O: Vital Signs Date Time Temp Pulse Resp B/P (MAP) Pulse Ox O2 Delivery O2 Flow Rate FiO2 04/28/21 15:24 99.0 98 18 122/71 (88) 94 04/28/21 06:03 Nasal Cannula 2.0 I & O 04/27/21 04/27/21 04/28/21 15:00 23:00 07:00 Intake Total 1440 ml 360 ml Balance 1440 ml 360 ml Current Medications: Meds: Current Medications Medications (Trade) Dose Ordered Sig/Mya Route PRN Reason Start Time Stop Time Status Last Admin Dose Admin Acetaminophen (Tylenol) 650 mg PRN Q6HRS PRN PO MILD PAIN / TEMP > 100.3'F 02/16/21 15:45 03/04/21 09:21 DC 02/18/21 06:31 Multi-Ingredient Ointment (Analgesic [place]) 1 debra PRN QID PRN TP MUSCLE PAIN 02/16/21 15:45 03/04/21 09:21 DC Al Hydroxide/Mg Hydroxide (Mylanta Plus Xs) 15 ml PRN AFTMEALHC PRN PO DYSPEPSIA 02/16/21 15:45 03/04/21 22:05 Magnesium Hydroxide (Milk Of Magnesia) 2,400 mg PRN QHS PRN PO 1ST CHOICE CONSTIPATION 02/16/21 15:45 03/04/21 09:21 DC Acetaminophen (Tylenol) 1,000 mg Q6HRS PRN PO pain or fever 02/16/21 17:00 02/16/21 17:35 DC Acetaminophen (Tylenol) 500 mg Q4HRS PRN PO MILD PAIN 1-3 02/16/21 17:00 02/16/21 17:36 DC Bisacodyl (Dulcolax Tab) 5 mg PRN DAILY PRN PO 2ND CHOICE CONSTIPATION 02/16/21 17:00 03/04/21 09:21 DC Vitamin D (Vitamin D3) 50,000 unit WEEKLY PO 02/22/21 09:00 03/04/21 09:21 DC 02/22/21 07:16 Clonazepam (KlonoPIN) 0.5 mg BID PO 02/16/21 21:00 02/27/21 19:54 DC 02/27/21 10:11 Dicyclomine HCl (Bentyl) 20 mg TID PO 02/16/21 21:00 03/04/21 09:21 DC 03/03/21 21:07 Diphenoxylate HCl/ Atropine (Lomotil) 2 tab BID PO 02/16/21 21:00 03/04/21 09:21 DC 03/03/21 21:08 Divalproex Sodium (Depakote Er) 1,000 mg HS PO 02/16/21 21:00 03/07/21 20:15 DC 03/04/21 21:43 Duloxetine HCl (Cymbalta) 30 mg BID PO 02/16/21 21:00 03/07/21 20:15 DC 03/06/21 08:14 Fluticasone Propionate (Flonase) 2 spray DAILY NS 02/17/21 09:00 04/28/21 08:34 Furosemide (Lasix) 20 mg DAILY PO 02/17/21 09:00 03/04/21 09:21 DC 03/03/21 08:32 Gabapentin (Neurontin) 300 mg QID PO 02/16/21 17:00 04/28/21 16:22 Hydroxyurea (Hydrea) 1,000 mg DAILY PO 02/17/21 09:00 04/28/21 08:33 Levetiracetam (Keppra) 250 mg BID PO 02/16/21 21:00 03/02/21 14:48 DC 03/02/21 09:54 Lidocaine (Lidoderm) 1 patch DAILY TP 02/17/21 09:00 02/17/21 09:24 DC Al Hydroxide/Mg Hydroxide (Mylanta Plus Xs) 15 ml PRN AFTMEALHC PRN PO DYSPEPSIA 02/16/21 17:00 02/16/21 17:36 DC Mirabegron (Myrbetriq) 50 mg DAILY PO 02/17/21 09:00 03/04/21 09:21 DC 03/03/21 08:30 Nystatin (Nystop) 1 debra BID TP 02/16/21 21:00 04/28/21 08:34 Pantoprazole Sodium (Protonix) 40 mg DAILYAC PO 02/17/21 07:30 04/28/21 08:34 Potassium Chloride (Klor-Con) 40 meq DAILY PO 02/17/21 09:00 03/04/21 09:21 DC 03/03/21 08:32 Sulfasalazine (Azulfidine) 500 mg TID PO 02/16/21 21:00 03/07/21 20:15 DC 03/06/21 13:05 Trazodone HCl (Desyrel) 50 mg QHS PO 02/16/21 21:00 04/27/21 20:45 Non-Formulary Medication (Albuterol Sulfate (Albuterol Sulfate Conc Neb Soln)) 1 vial PRN Q4HRS PRN NEB SHORTNESS OF BREATH 02/16/21 17:00 02/16/21 17:49 DC Ascorbic Acid (Vitamin C) 1,000 mg DAILY PO 02/17/21 09:00 03/04/21 09:21 DC 03/03/21 08:34 Diltiazem HCl (Cardizem) 60 mg BID PO 02/16/21 21:00 04/27/21 20:45 Lactobacillus Rhamnosus (Culturelle) 1 cap DAILY PO 02/17/21 09:00 03/04/21 09:21 DC 03/03/21 08:32 Amylase/Lipase/ Protease (Zenpep 10,000) 1 cap TIDBFRMEAL PO 02/17/21 07:30 04/28/21 16:22 Non-Formulary Medication (Magnesium Hydroxide (Milk Of Magnesia)) 2,400 mg PRN DAILY PRN PO CONSTIPATION 02/16/21 17:00 02/16/21 17:37 DC Magnesium Oxide (Magnesium Oxide) 400 mg DAILY PO 02/17/21 09:00 03/04/21 09:21 DC 03/03/21 08:31 Non-Formulary Medication (Methyl Salicylate/ Menthol (Analgesic [place])) 1 debra PRN Q6HRS PRN TP MUSCLE PAIN 02/16/21 17:00 02/16/21 17:37 DC Non-Formulary Medication (Umeclidinium [place] (Incruse Ellipta)) 62.5 mcg DAILY IH 02/17/21 09:00 02/16/21 17:49 DC Non-Formulary Medication (Zinc Gluconate ) 50 mg DAILY PO 02/17/21 09:00 02/16/21 17:46 DC Albuterol/ Ipratropium (Duoneb) 3 ml RTQID NEB 02/16/21 20:00 02/17/21 19:52 DC Albuterol Sulfate (Ventolin) 2.5 mg PRN Q4HRS PRN NEB SHORTNESS OF BREATH 02/16/21 18:00 Influenza Virus Vaccine Quadrival (Flulaval Quad [id number] Syringe) 0.5 ml ONCE ONCE VAX IM 02/17/21 09:00 02/17/21 09:01 DC 02/17/21 09:21 Lidocaine (Lidoderm) 1 patch DAILY PRN TP pain 02/17/21 09:30 03/29/21 12:01 DC 03/28/21 08:37 Albuterol/ Ipratropium (Combivent Respimat 20-100 Mcg) 1 puff RTQID INH 02/17/21 20:00 04/28/21 16:23 Sertraline HCl (Zoloft) 25 mg DAILY PO 02/22/21 09:00 02/24/21 10:00 DC 02/24/21 09:59 Sertraline HCl (Zoloft) 50 mg DAILY PO 02/25/21 09:00 03/01/21 18:30 DC 03/01/21 10:07 Olanzapine (ZyPREXA ZYDIS) 5 mg 1X ONCE PO 02/26/21 12:03 02/26/21 12:09 DC 02/26/21 12:25 Clonazepam (KlonoPIN) 0.5 mg DAILY PO 02/28/21 09:00 03/02/21 07:00 DC 03/01/21 10:07 Bupropion HCl (Wellbutrin Xl) 150 mg DAILY PO 03/02/21 09:00 03/08/21 15:46 DC 03/08/21 08:41 Levetiracetam (Keppra) 250 mg DAILY PO 03/03/21 09:00 04/10/21 00:12 DC 04/09/21 08:53 Aripiprazole (Abilify) 5 mg DAILY PO 03/05/21 09:00 04/28/21 08:34 Ondansetron HCl (Zofran Odt) 4 mg PRN Q4HRS PRN PO NAUSEA/VOMITING 03/06/21 19:30 04/02/21 09:23 Potassium Chloride (Klor-Con) 30 meq BID PO 03/07/21 09:00 04/28/21 08:34 Divalproex Sodium (Depakote Er) 1,000 mg 1700 PO 03/08/21 17:00 03/12/21 00:01 DC 03/11/21 17:27 Duloxetine HCl (Cymbalta) 30 mg 0900,1700 PO 03/08/21 17:00 04/28/21 16:22 Sulfasalazine (Azulfidine) 500 mg 0900,1300,1700 PO 03/08/21 09:00 04/28/21 16:22 Bupropion HCl (Wellbutrin Xl) 300 mg DAILY PO 03/09/21 09:00 04/28/21 08:29 Potassium Chloride (Klor-Con) 40 meq 1630,1730 PO 03/08/21 16:30 03/08/21 18:04 DC 03/08/21 16:57 Potassium Chloride (Klor-Con) 40 meq 1700,1800 PO 03/08/21 17:15 03/08/21 18:04 DC 03/08/21 17:56 Divalproex Sodium (Depakote Sprinkles) 500 mg BID PO 03/12/21 09:00 04/19/21 17:44 DC 04/19/21 08:27 Clotrimazole (Mycelex-7) 1 debra QHS VG 03/18/21 21:00 03/25/21 20:59 DC 03/24/21 20:20 Dicyclomine HCl (Bentyl) 20 mg TID PO 03/18/21 21:00 04/28/21 12:23 Diphenoxylate HCl/ Atropine (Lomotil) 2 tab BID PO 03/18/21 21:00 04/28/21 08:30 Lidocaine (Lidoderm) 1 patch PRN DAILY PRN TP pain 03/29/21 12:15 Fluconazole (Diflucan) 100 mg Q72H PO 04/16/21 12:00 04/19/21 12:01 DC 04/19/21 12:07 Divalproex Sodium (Depakote Er) 1,000 mg QHS PO 04/19/21 21:00 04/27/21 20:44 Olanzapine (ZyPREXA ZYDIS) 2.5 mg PRN Q2HR PRN PO PSYCHOSIS 04/22/21 15:45 04/22/21 15:59 Acetaminophen (Tylenol) 500 mg PRN Q6HRS PRN PO MILD PAIN / TEMP > 100.3'F 04/25/21 20:30 04/26/21 12:02 I have reviewed the current psychotropics carefully including drug interactions. Risk benefit ratio favors no change other than as noted in my dictated progress note. Diagnosis: Problems: (1) Impulse control disorder, unspecified (2) Mild cognitive impairment (3) Anxiety disorder, unspecified (4) Bipolar disorder, curr episode mixed, severe, with psychotic features (5) Bipolar 1 disorder, depressed NITHIN STEVENS MD Apr 28, 2021 21:05
[2021-04-28] MEDS: traZODone 50 MG TABLET. PO SCH (21:48)
[2021-04-28] MEDS: DIVALPROEX ER 500 MG TAB.ER.24H PO SCH (21:48)
--- NOTE | 2021-04-28 23:09 | NUR ---
patient was pleasant and cooperative tonight. She took medications whole, two at a time on a spoon. Patient not delusional tonight, she is oriented to person and place. Patient went to bed early and appears to be sleeping soundly.
[2021-04-29 05:45] VITALS: BP 125/71
--- NOTE | 2021-04-29 07:53 | PDOC ---
Exam Note: Napoleon Note: This note is a late entry for 04/28/2021 covers elements not covered in my initial note. Subjective: The patient was seen individually in the evening of 04/28/2021 with Zahira BARR, discussed and reviewed the chart. The patient slept 7-1/2 hours previous night. Overall she was somewhat delusional this morning, felt there were kids running around in her room but later in the rest of the day she did well. Review of Systems: Ambulation impaired, in wheelchair. Shortness of breath on O2 supplements. No CV, , eye, ENT system symptoms on review. Mental Status Exam: The patient is reasonably oriented to herself and situation. Speech coherent has some latency. Abstraction fair. Computation impaired. Language function intact. Mood and affect remains somewhat withdrawn. No suicidal ideation. Laboratory Data: Reviewed. Impression: Bipolar disorder, depressed. Anxiety disorder unspecified. Impulse control disorder unspecified. Plan: No change from initial note. Assessment: Vital Signs/I&O: Vital Signs Date Time Temp Pulse Resp B/P (MAP) Pulse Ox O2 Delivery O2 Flow Rate FiO2 04/29/21 05:45 98.0 86 22 125/71 (89) 92 Nasal Cannula 2.0 I & O 04/28/21 04/28/21 04/29/21 15:00 23:00 07:00 Intake Total 1080 ml 600 ml Balance 1080 ml 600 ml Current Medications: Meds: Current Medications Medications (Trade) Dose Ordered Sig/Mya Route PRN Reason Start Time Stop Time Status Last Admin Dose Admin Acetaminophen (Tylenol) 650 mg PRN Q6HRS PRN PO MILD PAIN / TEMP > 100.3'F 02/16/21 15:45 03/04/21 09:21 DC 02/18/21 06:31 Multi-Ingredient Ointment (Analgesic [place]) 1 debra PRN QID PRN TP MUSCLE PAIN 02/16/21 15:45 03/04/21 09:21 DC Al Hydroxide/Mg Hydroxide (Mylanta Plus Xs) 15 ml PRN AFTMEALHC PRN PO DYSPEPSIA 02/16/21 15:45 03/04/21 22:05 Magnesium Hydroxide (Milk Of Magnesia) 2,400 mg PRN QHS PRN PO 1ST CHOICE CONSTIPATION 02/16/21 15:45 03/04/21 09:21 DC Acetaminophen (Tylenol) 1,000 mg Q6HRS PRN PO pain or fever 02/16/21 17:00 02/16/21 17:35 DC Acetaminophen (Tylenol) 500 mg Q4HRS PRN PO MILD PAIN 1-3 02/16/21 17:00 02/16/21 17:36 DC Bisacodyl (Dulcolax Tab) 5 mg PRN DAILY PRN PO 2ND CHOICE CONSTIPATION 02/16/21 17:00 03/04/21 09:21 DC Vitamin D (Vitamin D3) 50,000 unit WEEKLY PO 02/22/21 09:00 03/04/21 09:21 DC 02/22/21 07:16 Clonazepam (KlonoPIN) 0.5 mg BID PO 02/16/21 21:00 02/27/21 19:54 DC 02/27/21 10:11 Dicyclomine HCl (Bentyl) 20 mg TID PO 02/16/21 21:00 03/04/21 09:21 DC 03/03/21 21:07 Diphenoxylate HCl/ Atropine (Lomotil) 2 tab BID PO 02/16/21 21:00 03/04/21 09:21 DC 03/03/21 21:08 Divalproex Sodium (Depakote Er) 1,000 mg HS PO 02/16/21 21:00 03/07/21 20:15 DC 03/04/21 21:43 Duloxetine HCl (Cymbalta) 30 mg BID PO 02/16/21 21:00 03/07/21 20:15 DC 03/06/21 08:14 Fluticasone Propionate (Flonase) 2 spray DAILY NS 02/17/21 09:00 04/28/21 08:34 Furosemide (Lasix) 20 mg DAILY PO 02/17/21 09:00 03/04/21 09:21 DC 03/03/21 08:32 Gabapentin (Neurontin) 300 mg QID PO 02/16/21 17:00 04/28/21 21:48 Hydroxyurea (Hydrea) 1,000 mg DAILY PO 02/17/21 09:00 04/28/21 08:33 Levetiracetam (Keppra) 250 mg BID PO 02/16/21 21:00 03/02/21 14:48 DC 03/02/21 09:54 Lidocaine (Lidoderm) 1 patch DAILY TP 02/17/21 09:00 02/17/21 09:24 DC Al Hydroxide/Mg Hydroxide (Mylanta Plus Xs) 15 ml PRN AFTMEALHC PRN PO DYSPEPSIA 02/16/21 17:00 02/16/21 17:36 DC Mirabegron (Myrbetriq) 50 mg DAILY PO 02/17/21 09:00 03/04/21 09:21 DC 03/03/21 08:30 Nystatin (Nystop) 1 debra BID TP 02/16/21 21:00 04/28/21 21:46 Pantoprazole Sodium (Protonix) 40 mg DAILYAC PO 02/17/21 07:30 04/28/21 08:34 Potassium Chloride (Klor-Con) 40 meq DAILY PO 02/17/21 09:00 03/04/21 09:21 DC 03/03/21 08:32 Sulfasalazine (Azulfidine) 500 mg TID PO 02/16/21 21:00 03/07/21 20:15 DC 03/06/21 13:05 Trazodone HCl (Desyrel) 50 mg QHS PO 02/16/21 21:00 04/28/21 21:48 Non-Formulary Medication (Albuterol Sulfate (Albuterol Sulfate Conc Neb Soln)) 1 vial PRN Q4HRS PRN NEB SHORTNESS OF BREATH 02/16/21 17:00 02/16/21 17:49 DC Ascorbic Acid (Vitamin C) 1,000 mg DAILY PO 02/17/21 09:00 03/04/21 09:21 DC 03/03/21 08:34 Diltiazem HCl (Cardizem) 60 mg BID PO 02/16/21 21:00 04/28/21 21:46 Lactobacillus Rhamnosus (Culturelle) 1 cap DAILY PO 02/17/21 09:00 03/04/21 09:21 DC 03/03/21 08:32 Amylase/Lipase/ Protease (Zenpep 10,000) 1 cap TIDBFRMEAL PO 02/17/21 07:30 04/28/21 16:22 Non-Formulary Medication (Magnesium Hydroxide (Milk Of Magnesia)) 2,400 mg PRN DAILY PRN PO CONSTIPATION 02/16/21 17:00 02/16/21 17:37 DC Magnesium Oxide (Magnesium Oxide) 400 mg DAILY PO 02/17/21 09:00 03/04/21 09:21 DC 03/03/21 08:31 Non-Formulary Medication (Methyl Salicylate/ Menthol (Analgesic [place])) 1 debra PRN Q6HRS PRN TP MUSCLE PAIN 02/16/21 17:00 02/16/21 17:37 DC Non-Formulary Medication (Umeclidinium [place] (Incruse Ellipta)) 62.5 mcg DAILY IH 02/17/21 09:00 02/16/21 17:49 DC Non-Formulary Medication (Zinc Gluconate ) 50 mg DAILY PO 02/17/21 09:00 02/16/21 17:46 DC Albuterol/ Ipratropium (Duoneb) 3 ml RTQID NEB 02/16/21 20:00 02/17/21 19:52 DC Albuterol Sulfate (Ventolin) 2.5 mg PRN Q4HRS PRN NEB SHORTNESS OF BREATH 02/16/21 18:00 Influenza Virus Vaccine Quadrival (Flulaval Quad [id number] Syringe) 0.5 ml ONCE ONCE VAX IM 02/17/21 09:00 02/17/21 09:01 DC 02/17/21 09:21 Lidocaine (Lidoderm) 1 patch DAILY PRN TP pain 02/17/21 09:30 03/29/21 12:01 DC 03/28/21 08:37 Albuterol/ Ipratropium (Combivent Respimat 20-100 Mcg) 1 puff RTQID INH 02/17/21 20:00 04/28/21 21:46 Sertraline HCl (Zoloft) 25 mg DAILY PO 02/22/21 09:00 02/24/21 10:00 DC 02/24/21 09:59 Sertraline HCl (Zoloft) 50 mg DAILY PO 02/25/21 09:00 03/01/21 18:30 DC 03/01/21 10:07 Olanzapine (ZyPREXA ZYDIS) 5 mg 1X ONCE PO 02/26/21 12:03 02/26/21 12:09 DC 02/26/21 12:25 Clonazepam (KlonoPIN) 0.5 mg DAILY PO 02/28/21 09:00 03/02/21 07:00 DC 03/01/21 10:07 Bupropion HCl (Wellbutrin Xl) 150 mg DAILY PO 03/02/21 09:00 03/08/21 15:46 DC 03/08/21 08:41 Levetiracetam (Keppra) 250 mg DAILY PO 03/03/21 09:00 04/10/21 00:12 DC 04/09/21 08:53 Aripiprazole (Abilify) 5 mg DAILY PO 03/05/21 09:00 04/28/21 08:34 Ondansetron HCl (Zofran Odt) 4 mg PRN Q4HRS PRN PO NAUSEA/VOMITING 03/06/21 19:30 04/02/21 09:23 Potassium Chloride (Klor-Con) 30 meq BID PO 03/07/21 09:00 04/28/21 21:47 Divalproex Sodium (Depakote Er) 1,000 mg 1700 PO 03/08/21 17:00 03/12/21 00:01 DC 03/11/21 17:27 Duloxetine HCl (Cymbalta) 30 mg 0900,1700 PO 03/08/21 17:00 04/28/21 16:22 Sulfasalazine (Azulfidine) 500 mg 0900,1300,1700 PO 03/08/21 09:00 04/28/21 16:22 Bupropion HCl (Wellbutrin Xl) 300 mg DAILY PO 03/09/21 09:00 04/28/21 08:29 Potassium Chloride (Klor-Con) 40 meq 1630,1730 PO 03/08/21 16:30 03/08/21 18:04 DC 03/08/21 16:57 Potassium Chloride (Klor-Con) 40 meq 1700,1800 PO 03/08/21 17:15 03/08/21 18:04 DC 03/08/21 17:56 Divalproex Sodium (Depakote Sprinkles) 500 mg BID PO 03/12/21 09:00 04/19/21 17:44 DC 04/19/21 08:27 Clotrimazole (Mycelex-7) 1 debra QHS VG 03/18/21 21:00 03/25/21 20:59 DC 03/24/21 20:20 Dicyclomine HCl (Bentyl) 20 mg TID PO 03/18/21 21:00 04/28/21 21:47 Diphenoxylate HCl/ Atropine (Lomotil) 2 tab BID PO 03/18/21 21:00 04/28/21 21:48 Lidocaine (Lidoderm) 1 patch PRN DAILY PRN TP pain 03/29/21 12:15 Fluconazole (Diflucan) 100 mg Q72H PO 04/16/21 12:00 04/19/21 12:01 DC 04/19/21 12:07 Divalproex Sodium (Depakote Er) 1,000 mg QHS PO 04/19/21 21:00 04/28/21 21:48 Olanzapine (ZyPREXA ZYDIS) 2.5 mg PRN Q2HR PRN PO PSYCHOSIS 04/22/21 15:45 04/22/21 15:59 Acetaminophen (Tylenol) 500 mg PRN Q6HRS PRN PO MILD PAIN / TEMP > 100.3'F 04/25/21 20:30 04/26/21 12:02 I have reviewed the current psychotropics carefully including drug interactions. Risk benefit ratio favors no change other than as noted in my dictated progress note. Diagnosis: Problems: (1) Impulse control disorder, unspecified (2) Mild cognitive impairment (3) Anxiety disorder, unspecified (4) Bipolar disorder, curr episode mixed, severe, with psychotic features (5) Bipolar 1 disorder, depressed NITHIN STEVENS MD Apr 29, 2021 07:52
[2021-04-29] MEDS: buPROPion XL 300 MG TAB.ER.24H. PO SCH (08:23)
[2021-04-29] MEDS: LIPASE/PROTEAS/AMYLAS 10/32/42 CAPSULE.DR. PO SCH ×3 (08:23→16:35)
[2021-04-29] MEDS: GABAPENTIN 300 MG CAPSULE. PO SCH ×4 (08:23→20:29)
[2021-04-29] MEDS: DULoxetine HCL 30 MG CAPSULE.DR PO SCH ×2 (08:23→16:35)
[2021-04-29] MEDS: ARIPiprazole 5 MG TABLET PO SCH (08:23)
[2021-04-29] MEDS: DIPHENOXYLATE/ATROPINE TABLET. PO SCH ×2 (08:23→20:30)
[2021-04-29] MEDS: DICYCLOMINE HCL 20 MG TABLET PO SCH ×3 (08:24→20:29)
[2021-04-29] MEDS: PANTOPRAZOLE 40 MG TABLET. PO SCH (08:24)
[2021-04-29] MEDS: dilTIAZem HCL 30 MG TABLET PO SCH ×2 (08:24→20:30)
[2021-04-29] MEDS: POTASSIUM CHLORIDE 10 MEQ TABLET.ER. PO SCH ×2 (08:25→20:29)
[2021-04-29] MEDS: FLUTICASONE 50MCG/NASAL SPRAY 16GM BOTTLE. NS SCH (08:26)
[2021-04-29] MEDS: sulfaSALAzine 500 MG TABLET PO SCH ×3 (08:26→16:36)
[2021-04-29] MEDS: IPRATROPIUM/ALBUTEROL 20/100mcg/INH INHALER. INH SCH ×4 (08:26→20:00)
[2021-04-29] MEDS: HYDROXYUREA 500 MG CAPSULE PO SCH (08:28)
[2021-04-29] MEDS: NYSTATIN TOPICAL POWDER 15GM BOTTLE. TP SCH ×2 (08:28→20:30)
[2021-04-29 15:01] VITALS: BP 122/72
[2021-04-29] MEDS: DIVALPROEX ER 500 MG TAB.ER.24H PO SCH (20:29)
[2021-04-29] MEDS: traZODone 50 MG TABLET. PO SCH (20:30)
--- NOTE | 2021-04-29 23:17 | NUR ---
Pt located in her room this evening. Pt calm and pleasant, states she feels good tonight. Compliant with whole medications.
[2021-04-30 05:26] VITALS: BP 126/67
[2021-04-30] MEDS: IPRATROPIUM/ALBUTEROL 20/100mcg/INH INHALER. INH SCH ×4 (08:43→20:08)
[2021-04-30] MEDS: FLUTICASONE 50MCG/NASAL SPRAY 16GM BOTTLE. NS SCH (08:43)
[2021-04-30] MEDS: PANTOPRAZOLE 40 MG TABLET. PO SCH (08:44)
[2021-04-30] MEDS: DULoxetine HCL 30 MG CAPSULE.DR PO SCH ×2 (08:44→17:29)
[2021-04-30] MEDS: DICYCLOMINE HCL 20 MG TABLET PO SCH ×3 (08:44→20:09)
[2021-04-30] MEDS: GABAPENTIN 300 MG CAPSULE. PO SCH ×4 (08:44→20:08)
[2021-04-30] MEDS: dilTIAZem HCL 30 MG TABLET PO SCH ×2 (08:44→20:09)
[2021-04-30] MEDS: DIPHENOXYLATE/ATROPINE TABLET. PO SCH ×2 (08:44→20:08)
[2021-04-30] MEDS: buPROPion XL 300 MG TAB.ER.24H. PO SCH (08:44)
[2021-04-30] MEDS: LIPASE/PROTEAS/AMYLAS 10/32/42 CAPSULE.DR. PO SCH ×3 (08:44→17:29)
[2021-04-30] MEDS: ARIPiprazole 5 MG TABLET PO SCH (08:44)
[2021-04-30] MEDS: sulfaSALAzine 500 MG TABLET PO SCH ×3 (08:45→17:29)
[2021-04-30] MEDS: POTASSIUM CHLORIDE 10 MEQ TABLET.ER. PO SCH ×2 (08:45→20:08)
[2021-04-30] MEDS: NYSTATIN TOPICAL POWDER 15GM BOTTLE. TP SCH ×2 (08:46→20:09)
[2021-04-30] MEDS: HYDROXYUREA 500 MG CAPSULE PO SCH (08:51)
[2021-04-30 09:26] LABS: BASO % 1 % (0-3); EOS # 0.1 x10^3/uL (0.0-0.7); EOS % 2 % (0-3); HEMATOCRIT 38.9 % (36.0-47.0); LYMPH # 0.8 x10^3/uL (1.0-4.8); LYMPH % 13 % (24-48); MEAN CORPUSCULAR HEMOGLOBIN 38 pg (25-35); MEAN CORPUSCULAR HGB CONC 33 g/dL (31-37); MEAN CORPUSCULAR VOLUME 114 fL (79-100); MONO # 0.6 x10^3/uL (0.0-1.1); MONO % 9 % (0-9); NEUT # 4.9 x10^3uL (1.8-7.7); NEUT % 76 % (31-73); PLATELET COUNT 260 x10^3/uL (140-400); RED BLOOD COUNT 3.43 x10^6/uL (3.50-5.40); RED CELL DISTRIBUTION WIDTH 13.5 % (11.5-14.5); WHITE BLOOD COUNT 6.4 x10^3/uL (4.0-11.0)
[2021-04-30 09:36] LABS: ALBUMIN 3.1 g/dL (3.4-5.0); ALBUMIN/GLOBULIN RATIO 0.9 (1.0-1.7); CALCIUM 8.9 mg/dL (8.5-10.1); CREATININE 0.6 mg/dL (0.6-1.0); GFR 99.1; POTASSIUM 4.1 mmol/L (3.5-5.1); TOTAL BILIRUBIN 0.5 mg/dL (0.2-1.0); TOTAL PROTEIN 6.6 g/dL (6.4-8.2)
--- NOTE | 2021-04-30 15:12 | NUR ---
Nursing note: Patient in dining room for morning medications & assessment. She is compliant taking medications whole. She is A/O X3, not to situation. She is pleasant, compliant, interactive with peers & somewhat confused at times. Patient denies pain/discomfort at this time. She interacts with groups. She is a stand by assist for transfers and cares. She is currently sitting in w/c in the [facility]. Will continue to monitor.
[2021-04-30 15:35] VITALS: BP 116/68
[2021-04-30] MEDS: traZODone 50 MG TABLET. PO SCH (20:08)
[2021-04-30] MEDS: DIVALPROEX ER 500 MG TAB.ER.24H PO SCH (20:09)
--- NOTE | 2021-04-30 21:24 | PN ---
DATE: 04/29/2021 This is a late entry for the service date 04/29/2021. SUBJECTIVE: The patient was seen today, met with the staff, chart reviewed. The patient's behavior has improved. She is much calmer. The patient is awaiting for placement. OBSERVATION: VITAL SIGNS: Temperature 98.5, blood pressure 126/67, pulse 89, respirations 18, O2 sat 91%. GENERAL: Slept about 8 hours last night. The patient's appetite is improved. LABORATORY DATA: The patient's lab reviewed, CURRENT MEDICATIONS: Include olanzapine 2.5 mg q. 2 hours p.r.n., Depakote 1000 mg at night, bupropion 300 mg daily, Cymbalta 30 mg twice a day, Abilify 5 mg daily, trazodone 50 mg at night and gabapentin 300 mg q.i.d. The patient is not having any side effects to medications. ASSESSMENT: 1. Bipolar disorder type I, mixed, with psychotic features. 2. Anxiety disorder, unspecified. PLAN: Continue with the current treatment plan. LENGTH OF STAY: Seven days. JACKIE DR: Jyoti TID: [id number]
--- NOTE | 2021-04-30 23:53 | NUR ---
Pt located in her bed this evening laying calmly. Compliant with whole medications. Pt is still upset with her son and the fact that he "quit being her DPOA." Pt stated " I hope you have kids that treat you as well as mine treat me."
--- NOTE | 2021-05-01 02:29 | PN ---
DATE: 04/30/2021 PROGRESS NOTE SUBJECTIVE: The patient was seen today, met with the staff. Chart reviewed and covering for Dr. Duffy. Staff reports she has been stable. The patient continues to have physical complaints including GI symptoms. The patient is also restless, having increased anxiety. OBSERVATION: VITAL SIGNS: Temperature 98.5, blood pressure 126/67, pulse 89, respirations 18, O2 sat ____. GENERAL: The patient's appetite improved. LABORATORY DATA: The patient's lab reviewed. CURRENT MEDICATIONS: The patient's current medications include olanzapine 2.5 mg q. 2 hours p.r.n., Depakote 1000 mg at night, bupropion 300 mg daily, Cymbalta 30 mg daily, Abilify 5 mg daily, trazodone 50 mg at night, and gabapentin 300 mg 4 times a day. The patient is not having any side effects to medications. ASSESSMENT: 1. Bipolar disorder, mixed with depression and psychotic features. 2. Anxiety disorder, unspecified. 3. Mild cognitive disorder. PLAN: To continue with the current treatment plan. LENGTH OF STAY: 10 days. SAM/NYLA/MANA DR: Jyoti TID: [id number]
[2021-05-01 05:46] VITALS: BP 132/78
[2021-05-01] MEDS: sulfaSALAzine 500 MG TABLET PO SCH ×3 (08:16→17:24)
[2021-05-01] MEDS: dilTIAZem HCL 30 MG TABLET PO SCH ×2 (08:16→20:31)
[2021-05-01] MEDS: DICYCLOMINE HCL 20 MG TABLET PO SCH ×3 (08:16→20:31)
[2021-05-01] MEDS: GABAPENTIN 300 MG CAPSULE. PO SCH ×4 (08:16→20:30)
[2021-05-01] MEDS: ARIPiprazole 5 MG TABLET PO SCH (08:16)
[2021-05-01] MEDS: DIPHENOXYLATE/ATROPINE TABLET. PO SCH ×2 (08:17→20:31)
[2021-05-01] MEDS: buPROPion XL 300 MG TAB.ER.24H. PO SCH (08:17)
[2021-05-01] MEDS: DULoxetine HCL 30 MG CAPSULE.DR PO SCH ×2 (08:17→17:24)
[2021-05-01] MEDS: FLUTICASONE 50MCG/NASAL SPRAY 16GM BOTTLE. NS SCH (08:17)
[2021-05-01] MEDS: POTASSIUM CHLORIDE 10 MEQ TABLET.ER. PO SCH ×2 (08:17→20:31)
[2021-05-01] MEDS: LIPASE/PROTEAS/AMYLAS 10/32/42 CAPSULE.DR. PO SCH ×3 (08:17→17:24)
[2021-05-01] MEDS: PANTOPRAZOLE 40 MG TABLET. PO SCH (08:17)
[2021-05-01] MEDS: NYSTATIN TOPICAL POWDER 15GM BOTTLE. TP SCH ×2 (08:18→20:31)
[2021-05-01] MEDS: IPRATROPIUM/ALBUTEROL 20/100mcg/INH INHALER. INH SCH ×4 (08:18→20:30)
[2021-05-01] MEDS: HYDROXYUREA 500 MG CAPSULE PO SCH (08:31)
--- NOTE | 2021-05-01 14:19 | NUR ---
Nursing note: Patient in dining room for morning medications & assessment. She is compliant taking medications whole. She is A/O X3, not to situation. She is pleasant, compliant, interactive with peers & somewhat confused at times. Patient denies pain/discomfort at this time. She participates in groups. She is a stand by assist for transfers and cares. She is currently day room participating in group. Will continue to monitor.
[2021-05-01 15:32] VITALS: BP 123/61
--- NOTE | 2021-05-01 16:45 | NUR ---
SW was stopped in the hallway by pt who wanted to know next steps. SW informed pt that we are waiting for the courts to essentially ramy her a guardian. Pt expressed her frustration and upset with her son Patel who just decided to resign as DPOA. "How can he do that to his mother. I love him". Pt then pointed out the crease in her forehead and stated he created another line from all the frowning and trouble he's caused. SW noted that pt has been here for a long time and knows she more than ready to leave and once a decision has been made, SW will make sure to let pt know. Pt stated "it's not so bad here. You guys really do a good job with me and I'm cared for".
[2021-05-01] MEDS: traZODone 50 MG TABLET. PO SCH (20:30)
[2021-05-01] MEDS: DIVALPROEX ER 500 MG TAB.ER.24H PO SCH (20:30)
--- NOTE | 2021-05-01 22:28 | NUR ---
Pt located in her room this evening laying in bed. Pt pleasant, calm and interactive. Pt continues to be upset with family, showing this RN her wrinkles on her forehead and stating "my family did this to me." Compliant with whole medications. Pt currently sleeping.
--- NOTE | 2021-05-02 00:35 | PN ---
DATE: 05/01/2021 SUBJECTIVE: The patient was seen today, met with the staff. Chart reviewed. The patient's behavior has improved. The patient is upset with her family including her 2 sons and apparently, they did not have any contact with her. The patient also made a statement, she is upset so much, she has wrinkles all over the face because of the way her children treated her. The patient gets angry at times, but overall, her behavior has been appropriate. OBSERVATION: VITAL SIGNS: Temperature 97.9, blood pressure 132/78, pulse 97, respirations 20, O2 sat 91%. GENERAL: Slept about 7 hours last night. The patient's appetite is fair. The patient is able to ambulate. The patient currently denies of having any major medical issues. LABORATORY DATA: The patient's lab reviewed. CURRENT MEDICATIONS: The patient's current medications include Depakote 1000 mg at night, bupropion 300 mg daily, Cymbalta 30 mg daily, Abilify 5 mg daily, trazodone 50 mg at night and gabapentin 300 mg 4 times a day. The patient is also on olanzapine 2.5 mg q. 2 hours p.r.n. The patient is not having any major side effects. ASSESSMENT: 1. Bipolar disorder, mixed with depression and psychotic features. 2. Anxiety disorder, unspecified. 3. Mild cognitive disorder. PLAN: To continue with the treatment. LENGTH OF STAY: Three to five days. SAM/MEENAKSHI DR: SAM/caden TID: [id number]
[2021-05-02 05:44] VITALS: BP 124/80
[2021-05-02] MEDS: buPROPion XL 300 MG TAB.ER.24H. PO SCH (08:19)
[2021-05-02] MEDS: LIPASE/PROTEAS/AMYLAS 10/32/42 CAPSULE.DR. PO SCH ×3 (08:19→16:42)
[2021-05-02] MEDS: DULoxetine HCL 30 MG CAPSULE.DR PO SCH ×2 (08:20→16:43)
[2021-05-02] MEDS: POTASSIUM CHLORIDE 10 MEQ TABLET.ER. PO SCH ×2 (08:20→20:02)
[2021-05-02] MEDS: GABAPENTIN 300 MG CAPSULE. PO SCH ×4 (08:20→20:02)
[2021-05-02] MEDS: DIPHENOXYLATE/ATROPINE TABLET. PO SCH ×2 (08:21→20:02)
[2021-05-02] MEDS: PANTOPRAZOLE 40 MG TABLET. PO SCH (08:21)
[2021-05-02] MEDS: ARIPiprazole 5 MG TABLET PO SCH (08:21)
[2021-05-02] MEDS: sulfaSALAzine 500 MG TABLET PO SCH ×3 (08:21→16:43)
[2021-05-02] MEDS: DICYCLOMINE HCL 20 MG TABLET PO SCH ×3 (08:21→20:03)
[2021-05-02] MEDS: IPRATROPIUM/ALBUTEROL 20/100mcg/INH INHALER. INH SCH ×4 (08:22→20:04)
[2021-05-02] MEDS: FLUTICASONE 50MCG/NASAL SPRAY 16GM BOTTLE. NS SCH (08:22)
[2021-05-02] MEDS: dilTIAZem HCL 30 MG TABLET PO SCH ×2 (08:22→20:04)
[2021-05-02] MEDS: HYDROXYUREA 500 MG CAPSULE PO SCH (08:25)
[2021-05-02] MEDS: NYSTATIN TOPICAL POWDER 15GM BOTTLE. TP SCH ×2 (09:00→20:04)
[2021-05-02 15:04] VITALS: BP 123/79
--- NOTE | 2021-05-02 17:37 | NUR ---
Patient has been delusional and paranoid at times during this shift. She stated that a profoundly demented peer was trying to peek in on her while she was being changed. She has been less disorganized and was able to ambulate with assistance multiple times. Will continue to monitor and report to oncoming shift.
[2021-05-02] MEDS: DIVALPROEX ER 500 MG TAB.ER.24H PO SCH (20:03)
[2021-05-02] MEDS: traZODone 50 MG TABLET. PO SCH (20:03)
--- NOTE | 2021-05-02 22:45 | NUR ---
Nursing Note Pt points to her forehead and shows me the wrinkles and worry lines her children have given her. She states they took her 50,000$ life insurance policy and then changed their numbers. She feels betrayed and abandoned by her own children. Not sure if she is delusional or not. Pt has kept this same thread of thinking for several days though. Pt med compliant 2 at a time with orange juice.
--- NOTE | 2021-05-02 23:52 | PN ---
DATE: 05/02/2021 SUBJECTIVE: The patient was seen today, met with the staff, chart reviewed. The patient continues to show improvement. Denies having any major problems. The patient continues to focus on her family. Apparently, her sons are not treating her nice. The patient is aware of her surroundings. The patient has not presented with any major behavior problems. OBSERVATION: VITAL SIGNS: Temperature 97.7, blood pressure 124/82, pulse 83, respirations 18, O2 sat 94%. GENERAL: Slept about 7 hours last night. The patient's appetite improved. CURRENT MEDICATIONS: Include Depakote 1000 mg at night, bupropion 300 mg daily, Cymbalta 30 mg daily, Abilify 5 mg daily, trazodone 50 mg at night and gabapentin 300 mg q.i.d. The patient is also on olanzapine 2.5 mg q. 2 hours p.r.n. The patient denies of having any side effects to medications. ASSESSMENT: 1. Bipolar disorder, mixed with depression and psychotic features. 2. Anxiety disorder, unspecified. 3. Mild cognitive disorder. PLAN: To continue treatment. LENGTH OF STAY: Three days. JACKIE DR: Jyoit TID: [id number]
[2021-05-03 06:01] VITALS: BP 135/81
[2021-05-03] MEDS: DULoxetine HCL 30 MG CAPSULE.DR PO SCH ×2 (08:19→17:05)
[2021-05-03] MEDS: DIPHENOXYLATE/ATROPINE TABLET. PO SCH ×2 (08:20→20:37)
[2021-05-03] MEDS: buPROPion XL 300 MG TAB.ER.24H. PO SCH (08:20)
[2021-05-03] MEDS: HYDROXYUREA 500 MG CAPSULE PO SCH (08:20)
[2021-05-03] MEDS: LIPASE/PROTEAS/AMYLAS 10/32/42 CAPSULE.DR. PO SCH ×3 (08:20→17:05)
[2021-05-03] MEDS: POTASSIUM CHLORIDE 10 MEQ TABLET.ER. PO SCH ×2 (08:21→20:37)
[2021-05-03] MEDS: GABAPENTIN 300 MG CAPSULE. PO SCH ×4 (08:21→20:37)
[2021-05-03] MEDS: PANTOPRAZOLE 40 MG TABLET. PO SCH (08:21)
[2021-05-03] MEDS: ARIPiprazole 5 MG TABLET PO SCH (08:21)
[2021-05-03] MEDS: sulfaSALAzine 500 MG TABLET PO SCH ×3 (08:21→17:05)
[2021-05-03] MEDS: DICYCLOMINE HCL 20 MG TABLET PO SCH ×3 (08:21→20:34)
[2021-05-03] MEDS: NYSTATIN TOPICAL POWDER 15GM BOTTLE. TP SCH (08:22)
[2021-05-03] MEDS: FLUTICASONE 50MCG/NASAL SPRAY 16GM BOTTLE. NS SCH (08:22)
[2021-05-03] MEDS: IPRATROPIUM/ALBUTEROL 20/100mcg/INH INHALER. INH SCH ×4 (08:22→20:37)
[2021-05-03] MEDS: dilTIAZem HCL 30 MG TABLET PO SCH ×2 (08:22→20:34)
[2021-05-03] MEDS ORDERED: NYSTATIN TOPICAL POWDER 15GM BOTTLE. TP PRN (12:30)
[2021-05-03 15:30] VITALS: BP 109/65
--- NOTE | 2021-05-03 18:30 | NUR ---
Patient has been calm, cooperative, and pleasant throughout this shift. She has been up walking with staff supervision at times. Will continue to monitor and report to oncoming shift.
[2021-05-03] MEDS: DIVALPROEX ER 500 MG TAB.ER.24H PO SCH (20:34)
[2021-05-03] MEDS: traZODone 50 MG TABLET. PO SCH (20:34)
--- NOTE | 2021-05-04 00:31 | NUR ---
Nursing Note The patient was located in her room for her assessment and medication pass. The patient took her medication whole. The patient was pleasant during interaction and was alert to name, date and location. The patient showed no signs of paranoid behavior or thoughts during interactions with this nurse. The patient is currently sleeping in her room.
--- NOTE | 2021-05-04 00:59 | PN ---
DATE: 05/03/2021 SUBJECTIVE: The patient was seen today, met with the staff, chart reviewed, and also covering for Dr. Duffy. The patient continues to show improvement. No major changes in her behavior. She is almost with her thinking, less confusion and she continues to focus on the family problems. OBSERVATION: VITAL SIGNS: Temperature 98.1, blood pressure 135/81, pulse 63, respirations 18, O2 sat 93%. GENERAL: Slept about 7 hours last night. Her appetite is improved. The patient is friendly, pleasant, interacting with the staff and not presented with any major behavior problems. LABORATORY DATA: The patient's lab reviewed. CURRENT MEDICATIONS: Include Depakote 1000 mg at night, bupropion 300 mg daily, Cymbalta 30 mg daily, Abilify 5 mg daily, gabapentin 300 mg 4 times a day, and trazodone 50 mg at night. The patient is also on olanzapine p.r.n. She denies of having any side effects to medications. ASSESSMENT: 1. Bipolar disorder, mixed with depression and psychotic features. 2. Anxiety disorder, depressed. 3. Mild cognitive disorder. PLAN: To continue with treatment. LENGTH OF STAY: Three to five days. JENNIFER DR: Jyoti TID: [id number]
[2021-05-04 05:27] VITALS: BP 127/77
[2021-05-04] MEDS: DIPHENOXYLATE/ATROPINE TABLET. PO SCH ×2 (08:05→20:07)
[2021-05-04] MEDS: POTASSIUM CHLORIDE 10 MEQ TABLET.ER. PO SCH ×2 (08:05→19:57)
[2021-05-04] MEDS: GABAPENTIN 300 MG CAPSULE. PO SCH ×4 (08:06→20:08)
[2021-05-04] MEDS: dilTIAZem HCL 30 MG TABLET PO SCH ×2 (08:06→19:58)
[2021-05-04] MEDS: ARIPiprazole 5 MG TABLET PO SCH (08:06)
[2021-05-04] MEDS: DULoxetine HCL 30 MG CAPSULE.DR PO SCH ×2 (08:06→17:10)
[2021-05-04] MEDS: LIPASE/PROTEAS/AMYLAS 10/32/42 CAPSULE.DR. PO SCH ×3 (08:06→17:10)
[2021-05-04] MEDS: sulfaSALAzine 500 MG TABLET PO SCH ×3 (08:06→17:10)
[2021-05-04] MEDS: DICYCLOMINE HCL 20 MG TABLET PO SCH ×3 (08:06→19:58)
[2021-05-04] MEDS: PANTOPRAZOLE 40 MG TABLET. PO SCH (08:07)
[2021-05-04] MEDS: FLUTICASONE 50MCG/NASAL SPRAY 16GM BOTTLE. NS SCH (08:07)
[2021-05-04] MEDS: buPROPion XL 300 MG TAB.ER.24H. PO SCH (08:07)
[2021-05-04] MEDS: IPRATROPIUM/ALBUTEROL 20/100mcg/INH INHALER. INH SCH ×4 (08:07→19:59)
[2021-05-04] MEDS: HYDROXYUREA 500 MG CAPSULE PO SCH (08:13)
--- NOTE | 2021-05-04 12:22 | NUR ---
WEEKLY ACTIVITY THERAPY NOTE Date of Admission:02/16/21 Date of AT Assessment: 02/17 Precipitating behaviors that initiated intake and admission:putting self on floor, combative towards staff, refusing O2, threw medications, expresses she wants to & removes O2 Goal aimed: increase socialization and engagement Initial Goal: Pt will participate in at least three individual or group Activity Therapy sessions per week Goal changed 04/05:Pt will participate in at least three Activity Therapy sessions per week with moderate engagement Goal changed 04/13:Pt will participate in at least five Activity Therapy sessions per week Goal changed 04/27:Pt will participate in all Activity Therapy sessions per week Weekly progress towards goal: did not achieve, 01/20 Group participation level: 1 mod, 8 full Weekly highlights: talked about [place] traditions Saturday, able to recall country music songs during Bingo Saturday, answered words within words with and without clues Saturday, watched a movie Saturday, shared thoughts and feeling during leisure and emotions Saturday Behaviors observed: pleasant, calm, sociable, mostly independent Plan: no change to goal Beneficial adaptations: socialization and engagement
--- NOTE | 2021-05-04 12:50 | NUR ---
Treatment team update: Pt is eating between 75-100% of meals and sleeping on average 7.5 hours per night. Pt is mostly compliant, calm and cooperative with all cares and medications. Pt is less delusional but does have some intermittently. Pt appears to be doing better with her bowels as she has moved from lactose-free to dairy-free. The guardianship proceeding still continues; once pt that is completed, pt will be able to discharge to placement.
[2021-05-04 15:41] VITALS: BP 110/63
--- NOTE | 2021-05-04 17:27 | NUR ---
Patient has been calm, cooperative, and pleasant throughout this shift. She has been up walking with staff supervision at times. Patient has been less delusional this shift but did state she was sure that I had gone with her to her mother's house while at dinner. Will continue to monitor and report to oncoming shift.
[2021-05-04] MEDS: DIVALPROEX ER 500 MG TAB.ER.24H PO SCH (19:58)
[2021-05-04] MEDS: ACETAMINOPHEN 500 MG TABLET PO PRN (19:58)
[2021-05-04] MEDS: traZODone 50 MG TABLET. PO SCH (19:59)
--- NOTE | 2021-05-04 22:50 | NUR ---
Nursing Note The patient was located in her room for her assessment and medication pass. The patient took her medication whole. The patient was pleasant during interactions with this nurse. The patient talked with this nurse about her children and reports that she feels betrayed by them due to them giving away DPOA. The patient requested and received PRN Tylenol with HS medication related to a headache that is resolved. The patient is currently sleeping in her room.
--- NOTE | 2021-05-05 02:21 | PN ---
DATE: 05/04/2021 SUBJECTIVE: The patient was seen today, met with the staff. Chart was reviewed and also covering for Dr. Duffy. The patient's behavior has improved, still has some paranoia, especially related to her family and also being suspicious, but no overt psychotic symptoms. OBSERVATION: VITAL SIGNS: Stable. GENERAL: The patient slept about 7-1/2 hours last night. CURRENT MEDICATIONS: The patient's current medications include Depakote 2000 mg at night, bupropion 300 mg daily, Cymbalta 30 mg daily, Abilify 5 mg daily, gabapentin 300 mg 4 times a day and trazodone 50 mg at night. The patient is also on olanzapine as p.r.n. No side effects to medications. ASSESSMENT: 1. Bipolar disorder, mixed with psychotic features. 2. Anxiety disorder, depressed. 3. Mild cognitive disorder. PLAN: To continue treatment. LENGTH OF STAY: Three to five days, awaiting for guardianship and placement. DAVID DR: Jyoti TID: [id number]
[2021-05-05 05:47] VITALS: BP 128/73
[2021-05-05] MEDS: IPRATROPIUM/ALBUTEROL 20/100mcg/INH INHALER. INH SCH ×4 (08:49→19:49)
[2021-05-05] MEDS: ARIPiprazole 5 MG TABLET PO SCH (08:50)
[2021-05-05] MEDS: DULoxetine HCL 30 MG CAPSULE.DR PO SCH ×2 (08:50→17:12)
[2021-05-05] MEDS: DIPHENOXYLATE/ATROPINE TABLET. PO SCH ×2 (08:50→19:49)
[2021-05-05] MEDS: LIPASE/PROTEAS/AMYLAS 10/32/42 CAPSULE.DR. PO SCH ×3 (08:50→17:12)
[2021-05-05] MEDS: PANTOPRAZOLE 40 MG TABLET. PO SCH (08:50)
[2021-05-05] MEDS: buPROPion XL 300 MG TAB.ER.24H. PO SCH (08:50)
[2021-05-05] MEDS: FLUTICASONE 50MCG/NASAL SPRAY 16GM BOTTLE. NS SCH (08:50)
[2021-05-05] MEDS: sulfaSALAzine 500 MG TABLET PO SCH ×3 (08:51→17:12)
[2021-05-05] MEDS: POTASSIUM CHLORIDE 10 MEQ TABLET.ER. PO SCH ×2 (08:51→19:47)
[2021-05-05] MEDS: DICYCLOMINE HCL 20 MG TABLET PO SCH ×3 (08:51→19:47)
[2021-05-05] MEDS: GABAPENTIN 300 MG CAPSULE. PO SCH ×4 (08:51→19:47)
[2021-05-05] MEDS: dilTIAZem HCL 30 MG TABLET PO SCH ×2 (08:51→19:47)
[2021-05-05] MEDS: HYDROXYUREA 500 MG CAPSULE PO SCH (08:56)
--- NOTE | 2021-05-05 13:00 | PN ---
DATE: 05/05/2021 SUBJECTIVE: The patient was seen today, met with the staff, chart reviewed. Also, covering for Dr. Duffy. Staff reports no major behavior problems except she is angry, upset because she does not have any family members to talk to. Occasionally, tends to get little bit paranoid and suspicious. The patient is able to walk with assistance, but mostly on wheelchair. OBSERVATION: VITAL SIGNS: Temperature 98.4, respirations 18, pulse 90, blood pressure 128/73, O2 sat 91%. GENERAL: She slept about 6 hours last night. The patient's appetite normal. The patient is not having any other major behavior problems. LABORATORY DATA: The patient's lab reviewed. CURRENT MEDICATIONS: The patient's current medications include Depakote 1000 mg at night, bupropion 300 mg daily, Cymbalta 30 mg twice a day, Abilify 5 mg daily and olanzapine 2.5 mg q. 2 hours p.r.n. The patient is not having any side effects to the medications. ASSESSMENT: 1. Bipolar disorder, mixed with psychotic features. 2. Anxiety disorder, depressed. 3. Mild cognitive disorder. PLAN: To continue with treatment. LENGTH OF STAY: Three to five days. Awaiting for placement. SAM/KHADIJAH DR: SAM/caden TID: [id number]
--- NOTE | 2021-05-05 14:39 | NUR ---
Nursing note: Patient in hallway for morning medications & assessment. She is compliant taking medications whole. She is A/O X3, not to situation. She is pleasant, compliant, interactive with peers & somewhat confused at times. Patient denies pain/discomfort at this time. She interacts with groups. She is a stand by assist for transfers and cares. She is currently sitting in w/c in the day room. Will continue to monitor.
[2021-05-05 15:37] VITALS: BP 122/73
[2021-05-05] MEDS: DIVALPROEX ER 500 MG TAB.ER.24H PO SCH (19:46)
[2021-05-05] MEDS: traZODone 50 MG TABLET. PO SCH (19:47)
--- NOTE | 2021-05-05 22:47 | NUR ---
Nursing Note The patient was located in her room for her assessment and medication pass. The patient took her medication whole. The patient was pleasant during interactions with this nurse. The patient talked about a crossword puzzle book she had received as a gift. The patient is currently sleeping in her room.
[2021-05-06 05:46] VITALS: BP 113/73
[2021-05-06] MEDS: ARIPiprazole 5 MG TABLET PO SCH (08:09)
[2021-05-06] MEDS: dilTIAZem HCL 30 MG TABLET PO SCH ×2 (08:09→20:14)
[2021-05-06] MEDS: GABAPENTIN 300 MG CAPSULE. PO SCH ×4 (08:10→20:13)
[2021-05-06] MEDS: POTASSIUM CHLORIDE 10 MEQ TABLET.ER. PO SCH ×2 (08:10→20:13)
[2021-05-06] MEDS: DULoxetine HCL 30 MG CAPSULE.DR PO SCH ×2 (08:10→16:22)
[2021-05-06] MEDS: buPROPion XL 300 MG TAB.ER.24H. PO SCH (08:10)
[2021-05-06] MEDS: sulfaSALAzine 500 MG TABLET PO SCH ×3 (08:10→16:22)
[2021-05-06] MEDS: DIPHENOXYLATE/ATROPINE TABLET. PO SCH ×2 (08:10→20:13)
[2021-05-06] MEDS: LIPASE/PROTEAS/AMYLAS 10/32/42 CAPSULE.DR. PO SCH ×3 (08:11→16:22)
[2021-05-06] MEDS: DICYCLOMINE HCL 20 MG TABLET PO SCH ×3 (08:11→20:14)
[2021-05-06] MEDS: PANTOPRAZOLE 40 MG TABLET. PO SCH (08:11)
[2021-05-06] MEDS: HYDROXYUREA 500 MG CAPSULE PO SCH (08:12)
[2021-05-06] MEDS: IPRATROPIUM/ALBUTEROL 20/100mcg/INH INHALER. INH SCH ×4 (08:16→20:13)
[2021-05-06] MEDS: FLUTICASONE 50MCG/NASAL SPRAY 16GM BOTTLE. NS SCH (08:17)
[2021-05-06 15:38] VITALS: BP 121/72
--- NOTE | 2021-05-06 18:30 | NUR ---
Patient has been calm, cooperative, and pleasant for most of this shift. She was verbally aggressive with another patient who was verbally and physically aggressive with her. Patient has been disorganized but still showed improved cognition. Will continue to monitor and report to oncoming shift.
[2021-05-06] MEDS: traZODone 50 MG TABLET. PO SCH (20:13)
[2021-05-06] MEDS: DIVALPROEX ER 500 MG TAB.ER.24H PO SCH (20:14)
--- NOTE | 2021-05-06 21:18 | PN ---
DATE: 05/06/2021 SUBJECTIVE: The patient was seen today, met with the staff. Chart was reviewed and also covering for Dr. Duffy. Staff reports the patient is compliant with the treatment, calm, cooperative, and not presented with any major behavior problems. The patient tends to get upset when talked about the family because the patient says she has no family because nobody wants have any contact with her. OBSERVATION: Temperature 98.5, blood pressure 113/73, pulse 101, respirations 18, O2 sat 89%. Slept about 7 hours last night. The patient's appetite improved. LABORATORY DATA: The patient's lab reviewed. CURRENT MEDICATIONS: Include Depakote 1000 mg at night, bupropion 300 mg daily, Cymbalta 30 mg twice a day, Abilify 5 mg daily. She is also on olanzapine 2.5 mg q. 2 hours p.r.n. The patient denies of any side effects. ASSESSMENT: 1. Bipolar disorder, mixed with psychotic features. 2. Anxiety disorder, depressed. 3. Mild cognitive disorder. PLAN: To continue treatment. LENGTH OF STAY: Three to five days, awaiting for placement. BRIAN DR: Jyoti TID: [id number]
--- NOTE | 2021-05-06 23:12 | NUR ---
Pt located in her bed this evening. Pt calm and pleasant. Compliant with whole medications. No delusions noted. Pt currently asleep in bed with feet elevated d/t lower extremity swelling.
[2021-05-07 05:43] VITALS: BP 106/72
[2021-05-07] MEDS: ARIPiprazole 5 MG TABLET PO SCH (07:28)
[2021-05-07] MEDS: GABAPENTIN 300 MG CAPSULE. PO SCH ×4 (07:29→20:07)
[2021-05-07] MEDS: LIPASE/PROTEAS/AMYLAS 10/32/42 CAPSULE.DR. PO SCH ×3 (07:29→16:30)
[2021-05-07] MEDS: DIPHENOXYLATE/ATROPINE TABLET. PO SCH ×2 (07:29→20:07)
[2021-05-07] MEDS: DICYCLOMINE HCL 20 MG TABLET PO SCH ×3 (07:29→20:04)
[2021-05-07] MEDS: buPROPion XL 300 MG TAB.ER.24H. PO SCH (07:29)
[2021-05-07] MEDS: dilTIAZem HCL 30 MG TABLET PO SCH ×2 (07:29→20:05)
[2021-05-07] MEDS: PANTOPRAZOLE 40 MG TABLET. PO SCH (07:29)
[2021-05-07] MEDS: DULoxetine HCL 30 MG CAPSULE.DR PO SCH ×2 (07:29→16:31)
[2021-05-07] MEDS: POTASSIUM CHLORIDE 10 MEQ TABLET.ER. PO SCH ×2 (07:30→20:04)
[2021-05-07] MEDS: HYDROXYUREA 500 MG CAPSULE PO SCH (07:31)
[2021-05-07] MEDS: IPRATROPIUM/ALBUTEROL 20/100mcg/INH INHALER. INH SCH ×4 (07:31→20:07)
[2021-05-07] MEDS: FLUTICASONE 50MCG/NASAL SPRAY 16GM BOTTLE. NS SCH (07:31)
[2021-05-07] MEDS: sulfaSALAzine 500 MG TABLET PO SCH ×3 (07:32→16:31)
[2021-05-07 11:15] LABS: BASO # 0.1 x10^3/uL (0.0-0.2); BASO % 1 % (0-3); EOS # 0.1 x10^3/uL (0.0-0.7); EOS % 2 % (0-3); HEMATOCRIT 38.4 % (36.0-47.0); HEMOGLOBIN 12.8 g/dL (12.0-15.5); LYMPH % 14 % (24-48); MEAN CORPUSCULAR HEMOGLOBIN 38 pg (25-35); MEAN CORPUSCULAR HGB CONC 33 g/dL (31-37); MEAN CORPUSCULAR VOLUME 115 fL (79-100); MONO # 0.7 x10^3/uL (0.0-1.1); MONO % 10 % (0-9); NEUT # 5.6 x10^3uL (1.8-7.7); NEUT % 74 % (31-73); PLATELET COUNT 235 x10^3/uL (140-400); RED BLOOD COUNT 3.35 x10^6/uL (3.50-5.40); RED CELL DISTRIBUTION WIDTH 13.6 % (11.5-14.5); WHITE BLOOD COUNT 7.5 x10^3/uL (4.0-11.0)
[2021-05-07 11:30] LABS: ALBUMIN/GLOBULIN RATIO 0.9 (1.0-1.7); CALCIUM 8.8 mg/dL (8.5-10.1); CREATININE 0.6 mg/dL (0.6-1.0); GFR 99.1; POTASSIUM 4.6 mmol/L (3.5-5.1); TOTAL BILIRUBIN 0.5 mg/dL (0.2-1.0); TOTAL PROTEIN 6.5 g/dL (6.4-8.2)
--- NOTE | 2021-05-07 15:05 | NUR ---
Patient has been alert and social on contact today She states her depression level to be a 5 on the 10 scale. She reports "i don't like pooping in my pants all the time". We did discuss that it is better than constipation, nobody is "judging her", and discussed that she has several good reasons why she is unable to get to independently get to the bathroom. On physical exam it was noted that her bilateral extremities are without pitting edema but that the skin is taut. We discussed the need for elevation of the lower extremities at night above the heart level. She is cooperative with medications. Continues to have complaints about her family "disowning her, just dropping her off to deal with her issues on her own, and feeling abandoned. She also comp[lains about peers that are "annoying" due to their negative behaviors. In summary, she is medically and mentally stable with ADL care needs. Addendum: 05/07/21 at 1543 by CAROL DAWN RN Patient using ordered 2 L pnc oxygen appropriately and without attempt to self ahrm
[2021-05-07 15:53] VITALS: BP 127/76
[2021-05-07] MEDS: traZODone 50 MG TABLET. PO SCH (20:04)
[2021-05-07] MEDS: DIVALPROEX ER 500 MG TAB.ER.24H PO SCH (20:05)
--- NOTE | 2021-05-07 22:59 | NUR ---
Pt located in her bed this evening. Pt pleasant, calm and cooperative. Compliant with whole medications. Pt currently sleeping.
--- NOTE | 2021-05-08 05:07 | PN ---
DATE: 05/07/2021 SUBJECTIVE: The patient was seen today, met with the staff, chart was reviewed and also covering for Dr. Duffy. Staff reports no major behavior problems. Still withdrawn. Awaiting for placement. OBSERVATION: VITAL SIGNS: Temperature 98.8, blood pressure 106/72, pulse 94, respirations 20, O2 sat 93%. GENERAL: Slept about 7 hours last night. The patient's appetite improved. LABORATORY DATA: The patient's lab reviewed. CURRENT MEDICATIONS: She is currently on Depakote 1000 mg at night, bupropion 300 mg daily, Cymbalta 30 mg twice a day, Abilify 5 mg daily. She is also on olanzapine 2.5 mg q. 2 hours p.r.n. She denies of any side effects to medications. ASSESSMENT: 1. Bipolar disorder, mixed with psychotic features. 2. Anxiety disorder, unspecified. 3. Mild cognitive disorder. PLAN: To continue treatment. LENGTH OF STAY: Next few days, awaiting for placement. SAM/TERESA/DAVID DR: Jyoti TID: [id number]
[2021-05-08 05:26] VITALS: BP 114/74
[2021-05-08] MEDS: dilTIAZem HCL 30 MG TABLET PO SCH ×2 (08:09→20:22)
[2021-05-08] MEDS: DULoxetine HCL 30 MG CAPSULE.DR PO SCH ×2 (08:09→16:32)
[2021-05-08] MEDS: PANTOPRAZOLE 40 MG TABLET. PO SCH (08:09)
[2021-05-08] MEDS: DIPHENOXYLATE/ATROPINE TABLET. PO SCH ×2 (08:09→20:22)
[2021-05-08] MEDS: GABAPENTIN 300 MG CAPSULE. PO SCH ×4 (08:10→20:21)
[2021-05-08] MEDS: ARIPiprazole 5 MG TABLET PO SCH (08:10)
[2021-05-08] MEDS: POTASSIUM CHLORIDE 10 MEQ TABLET.ER. PO SCH ×2 (08:10→20:22)
[2021-05-08] MEDS: buPROPion XL 300 MG TAB.ER.24H. PO SCH (08:10)
[2021-05-08] MEDS: LIPASE/PROTEAS/AMYLAS 10/32/42 CAPSULE.DR. PO SCH ×3 (08:10→16:32)
[2021-05-08] MEDS: DICYCLOMINE HCL 20 MG TABLET PO SCH ×3 (08:10→20:21)
[2021-05-08] MEDS: HYDROXYUREA 500 MG CAPSULE PO SCH (08:11)
[2021-05-08] MEDS: sulfaSALAzine 500 MG TABLET PO SCH ×4 (08:11→20:21)
[2021-05-08] MEDS: IPRATROPIUM/ALBUTEROL 20/100mcg/INH INHALER. INH SCH ×4 (08:14→20:21)
[2021-05-08] MEDS: FLUTICASONE 50MCG/NASAL SPRAY 16GM BOTTLE. NS SCH (09:00)
--- NOTE | 2021-05-08 12:15 | PN ---
DATE: 05/08/2021 SUBJECTIVE: The patient was seen today, met with the staff. Chart was reviewed and also covering for Dr. Duffy. The patient's behavior has improved slightly. The patient has not created any major behavioral problems. She is cooperative, compliant and becoming more passive. Patient occasionally gets angry towards his family because of not having any contact with her. OBSERVATION: VITAL SIGNS: Temperature 97.9, blood pressure 114/74, pulse 96, respirations 20, and O2 sat 91%. GENERAL: Slept about 8 hours last night. The patient's appetite normal. Patient is not having any major physical complaints. No falls. CURRENT MEDICATIONS: Include Depakote 1000 mg at night, bupropion 300 mg daily, Cymbalta 30 mg twice a day, Abilify 5 mg daily and olanzapine 2.5 mg q. 2 hours p.r.n. The patient denies of any side effects to medications. ASSESSMENT: 1. Bipolar disorder, mixed with psychotic features. 2. Anxiety disorder, unspecified. 3. Mild cognitive disorder. PLAN: To continue treatment. LENGTH OF STAY: 2-3 days, waiting for placement and guardianship. CYN DR: Jyoti TID: [id number]
[2021-05-08 15:34] VITALS: BP 122/72
--- NOTE | 2021-05-08 17:27 | NUR ---
Patient has been calm, disorganized, cooperative, and pleasant for most of this shift. She was interactive with peers and staff, and participated in group activities. Patient was cooperative with therapy and walked in the hallway with assistance. Will continue to monitor and report to oncoming shift.
[2021-05-08] MEDS: traZODone 50 MG TABLET. PO SCH (20:21)
[2021-05-08] MEDS: DIVALPROEX ER 500 MG TAB.ER.24H PO SCH (20:22)
--- NOTE | 2021-05-08 23:35 | NUR ---
Pt located in her bed this evening. Pt pleasant and interactive. Compliant with whole medications. Pt currently sleeping.
[2021-05-09 05:57] VITALS: BP 127/77
[2021-05-09] MEDS: PANTOPRAZOLE 40 MG TABLET. PO SCH (07:58)
[2021-05-09] MEDS: GABAPENTIN 300 MG CAPSULE. PO SCH ×4 (07:58→20:15)
[2021-05-09] MEDS: buPROPion XL 300 MG TAB.ER.24H. PO SCH (07:58)
[2021-05-09] MEDS: sulfaSALAzine 500 MG TABLET PO SCH ×3 (07:58→17:05)
[2021-05-09] MEDS: DICYCLOMINE HCL 20 MG TABLET PO SCH ×3 (07:58→20:15)
[2021-05-09] MEDS: LIPASE/PROTEAS/AMYLAS 10/32/42 CAPSULE.DR. PO SCH ×3 (07:58→17:04)
[2021-05-09] MEDS: DIPHENOXYLATE/ATROPINE TABLET. PO SCH ×2 (07:58→20:15)
[2021-05-09] MEDS: POTASSIUM CHLORIDE 10 MEQ TABLET.ER. PO SCH ×2 (07:59→20:15)
[2021-05-09] MEDS: DULoxetine HCL 30 MG CAPSULE.DR PO SCH ×2 (07:59→17:05)
[2021-05-09] MEDS: dilTIAZem HCL 30 MG TABLET PO SCH ×2 (07:59→20:14)
[2021-05-09] MEDS: ARIPiprazole 5 MG TABLET PO SCH (07:59)
[2021-05-09] MEDS: IPRATROPIUM/ALBUTEROL 20/100mcg/INH INHALER. INH SCH ×4 (07:59→20:16)
[2021-05-09] MEDS: FLUTICASONE 50MCG/NASAL SPRAY 16GM BOTTLE. NS SCH (08:00)
[2021-05-09] MEDS: HYDROXYUREA 500 MG CAPSULE PO SCH (08:02)
[2021-05-09 16:08] VITALS: BP 121/79
--- NOTE | 2021-05-09 17:34 | NUR ---
Patient has been calm, disorganized, cooperative, and pleasant for most of this shift. She was interactive with peers and staff, and participated in group activities. Patient walked in the hallway with assistance, otherwise she self-propelled her wheelchair. Will continue to monitor and report to oncoming shift.
[2021-05-09] MEDS: DIVALPROEX ER 500 MG TAB.ER.24H PO SCH (20:15)
[2021-05-09] MEDS: traZODone 50 MG TABLET. PO SCH (20:15)
--- NOTE | 2021-05-10 02:01 | NUR ---
Nursing Note The patient was located in her room for her assessment and medication pass. The patient took her medication whole. The patient was pleasant during interactions with this nurse. The patient was alert to name, date and location. The patient is currently sleeping in her room.
--- NOTE | 2021-05-10 03:03 | PN ---
DATE: 05/09/2021 SUBJECTIVE: The patient was seen today, met with the staff, chart was reviewed, and also covering for Dr. Duffy. Staff reports no major behavior problems. The patient complains of having back pain. Apparently, she was lying on the sofa. The patient states she had problems with back pain for a long period of time, usually takes Tylenol for pain. OBSERVATION: VITAL SIGNS: Temperature 97.9, blood pressure 127/77, pulse 90, respirations 16, O2 sat 93%. GENERAL: Slept about 7 hours last night. The patient's appetite is normal. LABORATORY DATA: The patient's lab reviewed. CURRENT MEDICATIONS: Include Depakote 1000 mg at night, bupropion 300 mg daily, Cymbalta 30 mg twice a day, Abilify 5 mg daily, and olanzapine 2.5 mg q. 2 hours p.r.n. She is not having any side effects to medications. ASSESSMENT: 1. Bipolar disorder, mixed with psychotic features. 2. Anxiety disorder, unspecified. 3. Mild cognitive disorder. PLAN: To continue treatment. LENGTH OF STAY: Two to three days waiting for placement and also for guardianship. SAM/CARLA KOROMA: Jyoti TID: [id number]
[2021-05-10 05:59] VITALS: BP 128/68
[2021-05-10] MEDS: POTASSIUM CHLORIDE 10 MEQ TABLET.ER. PO SCH ×2 (08:12→19:28)
[2021-05-10] MEDS: DIPHENOXYLATE/ATROPINE TABLET. PO SCH ×2 (08:12→19:27)
[2021-05-10] MEDS: DICYCLOMINE HCL 20 MG TABLET PO SCH ×3 (08:12→19:28)
[2021-05-10] MEDS: DULoxetine HCL 30 MG CAPSULE.DR PO SCH ×2 (08:12→16:46)
[2021-05-10] MEDS: PANTOPRAZOLE 40 MG TABLET. PO SCH (08:12)
[2021-05-10] MEDS: LIPASE/PROTEAS/AMYLAS 10/32/42 CAPSULE.DR. PO SCH ×3 (08:12→16:30)
[2021-05-10] MEDS: GABAPENTIN 300 MG CAPSULE. PO SCH ×4 (08:12→19:27)
[2021-05-10] MEDS: dilTIAZem HCL 30 MG TABLET PO SCH ×2 (08:13→19:27)
[2021-05-10] MEDS: buPROPion XL 300 MG TAB.ER.24H. PO SCH (08:13)
[2021-05-10] MEDS: ARIPiprazole 5 MG TABLET PO SCH (08:13)
[2021-05-10] MEDS: IPRATROPIUM/ALBUTEROL 20/100mcg/INH INHALER. INH SCH ×4 (08:13→19:28)
[2021-05-10] MEDS: sulfaSALAzine 500 MG TABLET PO SCH ×3 (08:13→16:46)
[2021-05-10] MEDS: FLUTICASONE 50MCG/NASAL SPRAY 16GM BOTTLE. NS SCH (08:14)
[2021-05-10] MEDS: HYDROXYUREA 500 MG CAPSULE PO SCH (08:15)
[2021-05-10 15:27] VITALS: BP 124/74
--- NOTE | 2021-05-10 17:39 | NUR ---
Patient has been calm, disorganized, cooperative, and pleasant for most of this shift. She was interactive with peers and staff, and participated in group activities. Patient walked in the hallway with assistance, otherwise she self-propelled her wheelchair. She was withdrawn to her room for most of the afternoon. Will continue to monitor and report to oncoming shift.
[2021-05-10] MEDS: DIVALPROEX ER 500 MG TAB.ER.24H PO SCH (19:26)
[2021-05-10] MEDS: ACETAMINOPHEN 500 MG TABLET PO PRN (19:27)
[2021-05-10] MEDS: traZODone 50 MG TABLET. PO SCH (19:28)
--- NOTE | 2021-05-10 22:28 | PN ---
DATE: 05/10/2021 SUBJECTIVE: The patient was seen today, met with the staff. Chart reviewed. I am also covering for Dr. Duffy. Staff reports no major behavioral problems. She is calm, cooperative, but withdrawn. The patient admits to feeling anxious, worried about her future because she does not know where she will be going to and also having not had any contact with her family. OBSERVATION: VITAL SIGNS: Temperature 98.4, blood pressure 128/68, pulse 92, respirations 20, O2 sat 92%. GENERAL: Slept about 8 hours last night. The patient's appetite normal. The patient on wheelchair. She is also on continuous oxygen. CURRENT MEDICATIONS: Depakote ER 1000 mg at night, Cymbalta 30 mg twice a day, gabapentin 300 mg 4 times a day, trazodone 50 mg at night and Wellbutrin-XL 100 mg daily, Abilify 5 mg daily, and Zyprexa Zydis 2.5 mg q. 2 hours p.r.n. The patient denies of any side effects to medications. ASSESSMENT: 1. Bipolar disorder. 2. Generalized anxiety disorder. PLAN: To continue with current treatment plan. Length of stay: The patient is awaiting for placement. MEJIA DR: Jyoti TID: [id number]
--- NOTE | 2021-05-11 02:58 | NUR ---
Nursing Note The patient was located in her room for her assessment and medication pass. The patient took her medication whole. The patient was pleasant during interactions with this nurse. The patient was alert to name, date and location. The patient was upset and somewhat anxious due to a male patient entering her room on accident. The patient was given PRN Zyprexa per PRN order. The patient is currently sleeping in her room.
[2021-05-11 06:03] VITALS: BP 115/70
[2021-05-11] MEDS: buPROPion XL 300 MG TAB.ER.24H. PO SCH (07:46)
[2021-05-11] MEDS: PANTOPRAZOLE 40 MG TABLET. PO SCH (07:46)
[2021-05-11] MEDS: LIPASE/PROTEAS/AMYLAS 10/32/42 CAPSULE.DR. PO SCH ×3 (07:46→16:15)
[2021-05-11] MEDS: sulfaSALAzine 500 MG TABLET PO SCH ×3 (07:46→16:15)
[2021-05-11] MEDS: DULoxetine HCL 30 MG CAPSULE.DR PO SCH ×2 (07:46→16:15)
[2021-05-11] MEDS: ARIPiprazole 5 MG TABLET PO SCH (07:47)
[2021-05-11] MEDS: HYDROXYUREA 500 MG CAPSULE PO SCH (07:47)
[2021-05-11] MEDS: POTASSIUM CHLORIDE 10 MEQ TABLET.ER. PO SCH ×2 (07:48→20:26)
[2021-05-11] MEDS: dilTIAZem HCL 30 MG TABLET PO SCH ×2 (07:48→20:26)
[2021-05-11] MEDS: DICYCLOMINE HCL 20 MG TABLET PO SCH ×3 (07:48→20:26)
[2021-05-11] MEDS: hydroCHLOROthiazide 25 MG TABLET. PO SCH (07:49)
[2021-05-11] MEDS: GABAPENTIN 300 MG CAPSULE. PO SCH ×4 (07:49→20:28)
[2021-05-11] MEDS: DIPHENOXYLATE/ATROPINE TABLET. PO SCH ×2 (07:49→20:28)
[2021-05-11] MEDS: IPRATROPIUM/ALBUTEROL 20/100mcg/INH INHALER. INH SCH ×4 (07:53→20:28)
[2021-05-11] MEDS: FLUTICASONE 50MCG/NASAL SPRAY 16GM BOTTLE. NS SCH (07:54)
--- NOTE | 2021-05-11 08:47 | NUR ---
Pt appropriate on the unit and med compliant. She is absent of SI/HI behaviors, denies SI/VH/AH. She denies pain when asked. She is a little fixated on a male patient who wandered into her room the previous night in a state of confusion, asking other patients if he also wandered into their room. She is compliant with whole meds on a spoon and is receptive to education provided. Plan of care continues, will pass to next shift.
--- NOTE | 2021-05-11 11:55 | NUR ---
WEEKLY ACTIVITY THERAPY NOTE Date of Admission:02/16/21 Date of AT Assessment: 02/17 Precipitating behaviors that initiated intake and admission:putting self on floor, combative towards staff, refusing O2, threw medications, expresses she wants to & removes O2 Goal aimed: increase socialization and engagement Initial Goal: Pt will participate in at least three individual or group Activity Therapy sessions per week Goal changed 04/05:Pt will participate in at least three Activity Therapy sessions per week with moderate engagement Goal changed 04/13:Pt will participate in at least five Activity Therapy sessions per week Goal changed 04/27:Pt will participate in all Activity Therapy sessions per week Weekly progress towards goal: achieved, 12/18 Group participation level: 1 mod, 7 full Weekly highlights: answered a couple picture man puzzles , guessed tribonds with direct prompting Saturday, participated in all exercises and contributed to name dropper independently, answered several picture puzzles correctly and independently Saturday, listened to guided meditation and demonstrated power poses Saturday Behaviors observed: social, pleasant, thinks CPO is related to someone she knows Plan: Pt will participate fully in all Activity Therapy sessions offered Beneficial adaptations:socialization and engagement
--- NOTE | 2021-05-11 15:02 | NUR ---
Treatment team update: PT is eating almost 90% of meals and sleeping on average 7.5 hours per night. Pt continues to be calm, compliant and cooperative with all staff and cares. Pt is mostly disorganized and has some delusional thinking but does not appear distressed and has no behaviors surrounding them. Pt has participated in 8 groups this last week with moderate to full participation. Guardianship continues to be underway; once this has been established pt will be able to be discharged to placement.
[2021-05-11 15:05] VITALS: BP 112/72
--- NOTE | 2021-05-11 15:08 | TX PLAN ---
Interdisciplinary Tx Plan Admission Information Feb 16, 2021 at 15:29 Legal Status (on Admission): Voluntary DPOA/Guardian Name: Patel Moise Contact Other Contact Name: Chasity Nazario Other Contact Verified Code Status: DNR Allergies: Coded Allergies: butorphanol (Verified Allergy, Unknown, 02/13/20) cefoxitin (Verified Allergy, Unknown, 02/13/20) codeine (Verified Allergy, Unknown, 02/13/20) gluten (Verified Allergy, Unknown, 02/13/20) lactose (Verified Allergy, Unknown, 02/13/20) Diagnoses Primary Diagnosis: Bipolar D/O mixed Reasons for Admission: Suicidal ideation, Poor impulse control Problem in Patient's Words: N/A Additional Admission Comments: According to the intake, pt is putting herself on the floor, combative towards staff, refusing oxygen/removes the tubing, throwing medications, expressed that she wants to . Problems Active Problems: putting self on floor removing oxygen Inactive Problems: medication compliant Pt Strengths/Limitations Ability for [place]: Poor Cognitive Functioning/Ability: Fair Communication Skills/Ability: Fair Financial Resources: Fair Insight/Judgement: Poor Intellectual Ability: Fair Physical Health: Poor Social Skills: Poor Stability in Family: Poor Stability in School/Work: Poor Verbal Skills: Fair Discharge Criteria Discharge Criteria: Able meet basic life need, Adequate arrangements @DC, Improved behavior, Improved mood/thought Preliminary Discharge Plan Preliminary DC Plan: Current Living Arrange. Special Precautions Fall Risk: Moderate Initial D/C Plan Pt will return to [facility] once stable Identified Discharge Needs: None noted Currently Utilized Resources Currently Utilized Resources/P: Primary Care Physician Telehealth for psychiatry Referrals Community Resources: None Identified Problems/Hx/Goals Objectives/Short-Term Goals Short Term Goals: Dec. Outbursts, Medication Stabilization, Monitor Med Effects, Promote Coping Skill Short Term Goals in Patient's: N/A Interventions/Frequency Staff Interventions/Frequency&: Psychiatrist to assess pt at least 3x per week for medication management. Social Work to assess pt least 2x per week to identify barriers to care and discharge planning goals. Nursing to assess pt medication effect, behavior modification and complete 15 minute checks daily. Encourage participation in group activities (if applicable) or 1:1 engagement based off Activity Dept goals. 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 Education: Pt graduated high school in 1969 Community Follow-up Primary Care Physician Telehealth Treatment Plan Explained Patient/Wide Load Escort had this treatment plan explained to him/her as indicated by the signature below and has been given the opportunity to ask questions and make suggestions: Date: Patient/Wide Load Escort Signature: Status Update Update Pt is eating almost 90% of meals and sleeping on average 7.5 hours per night. Pt continues to be calm, compliant and cooperative with all staff and cares. Pt is mostly disorganized and has some delusional thinking but does not appear distressed and has no behaviors surrounding them. Pt has participated in 8 groups this last week with moderate to full participation. Guardianship continues to be underway; once this has been established pt will be able to be discharged to placement. OK BAUTISTA May 11, 2021 15:07
--- NOTE | 2021-05-11 20:18 | PN ---
DATE: 05/11/2021 SUBJECTIVE: The patient was seen today, met with the staff, chart reviewed. The patient continues to show improvement. The patient also having difficulty accepting her stay here and also about her future not knowing what is going to happen. The patient does not have any contact with the family. The patient continues to be preoccupied, also having some obsessive thinking. OBSERVATION: VITAL SIGNS: Stable. Sleeping fairly well. Appetite normal. CURRENT MEDICATIONS: The patient's current medications include Depakote 1000 mg at night, Cymbalta 30 mg twice a day, gabapentin 300 mg 4 times a day, trazodone 50 mg at night and Wellbutrin-XL 100 mg daily and Abilify 5 mg daily. She is also on Zyprexa Zydis 2.5 mg q. 2 hours p.r.n. The patient is not exhibiting any side effects to medications. ASSESSMENT: 1. Bipolar disorder. 2. Generalized anxiety disorder. PLAN: To continue with the treatment. LENGTH OF STAY: The patient's is awaiting for placement and guardianship. DAVID DR: Jyoti TID: [id number]
[2021-05-11] MEDS: traZODone 50 MG TABLET. PO SCH (20:26)
[2021-05-11] MEDS: DIVALPROEX ER 500 MG TAB.ER.24H PO SCH (20:26)
--- NOTE | 2021-05-11 23:14 | NUR ---
Pt located in her room this evening laying in bed awake. Pt calm and pleasant. Compliant with whole medications. Pt currently sleeping.
[2021-05-12 05:58] VITALS: BP 123/75
[2021-05-12] MEDS: hydroCHLOROthiazide 25 MG TABLET. PO SCH (07:46)
[2021-05-12] MEDS: PANTOPRAZOLE 40 MG TABLET. PO SCH (07:46)
[2021-05-12] MEDS: LIPASE/PROTEAS/AMYLAS 10/32/42 CAPSULE.DR. PO SCH ×3 (07:46→16:09)
[2021-05-12] MEDS: sulfaSALAzine 500 MG TABLET PO SCH ×3 (07:46→16:09)
[2021-05-12] MEDS: buPROPion XL 300 MG TAB.ER.24H. PO SCH (07:46)
[2021-05-12] MEDS: HYDROXYUREA 500 MG CAPSULE PO SCH (07:55)
[2021-05-12] MEDS: DICYCLOMINE HCL 20 MG TABLET PO SCH ×3 (07:55→19:40)
[2021-05-12] MEDS: ARIPiprazole 5 MG TABLET PO SCH (07:56)
[2021-05-12] MEDS: dilTIAZem HCL 30 MG TABLET PO SCH ×2 (07:56→19:42)
[2021-05-12] MEDS: GABAPENTIN 300 MG CAPSULE. PO SCH ×4 (07:56→19:41)
[2021-05-12] MEDS: DULoxetine HCL 30 MG CAPSULE.DR PO SCH ×2 (07:56→16:09)
[2021-05-12] MEDS: DIPHENOXYLATE/ATROPINE TABLET. PO SCH ×2 (07:57→19:40)
[2021-05-12] MEDS: POTASSIUM CHLORIDE 10 MEQ TABLET.ER. PO SCH ×2 (07:57→19:39)
[2021-05-12] MEDS: FLUTICASONE 50MCG/NASAL SPRAY 16GM BOTTLE. NS SCH (07:58)
[2021-05-12] MEDS: IPRATROPIUM/ALBUTEROL 20/100mcg/INH INHALER. INH SCH ×4 (07:58→19:39)
--- NOTE | 2021-05-12 08:53 | NUR ---
Pt appropriate on the unit and absent of disruptive behaviors. Appetite during breakfast was adequate; she ate all of her food and asked for a 2nd helping of eggs and meat which was accommodated for. She is compliant with whole medications, denies SI/HI/VH/AH/delusions/pain. Plan of care continues, will pass to next shift.
[2021-05-12 15:41] VITALS: BP 109/65
[2021-05-12] MEDS: DIVALPROEX ER 500 MG TAB.ER.24H PO SCH (19:41)
[2021-05-12] MEDS: traZODone 50 MG TABLET. PO SCH (19:41)
--- NOTE | 2021-05-12 22:00 | NUR ---
Patient is located in the hallway on assumption of care. She is in pleasant spirits, and wishing passing staff a happy new year. She is A/O x4, compliant with assessments and medications whole a couple at a time on a spoon. Cooperative with HS care. She denies any pain or discomfort currently, and appears to be sleeping comfortably. Will continue to monitor.
--- NOTE | 2021-05-12 23:06 | PN ---
DATE: 05/12/2021 SUBJECTIVE: The patient was seen today, met with the staff. Chart was reviewed and also covering for Dr. Duffy. Staff reports no major behavior problems. The patient is getting anxious towards discharge. The patient is also upset with one of the residents who has been intrusive. The patient tends to isolate herself, but interacts fairly well with the staff. OBSERVATION: VITAL SIGNS: Temperature 97.5, blood pressure 123/75, pulse 94, respirations 20, O2 sat 92%. Slept about 6-1/2 hours last night. GENERAL: The patient's appetite is fair. The patient is not having any medical issues. LABORATORY DATA: The patient's lab reviewed. CURRENT MEDICATIONS: The patient's current medications include Depakote 1000 mg at night, Cymbalta 30 mg twice a day, gabapentin 300 mg 4 times a day, trazodone 50 mg at night and Wellbutrin XL 100 mg daily. The patient is also on Abilify 5 mg daily and Zyprexa Zydis 2.5 mg q. 2 hours p.r.n. She denies of any side effects to medications. ASSESSMENT: 1. Bipolar disorder. 2. Generalized anxiety disorder. PLAN: To continue with treatment. LENGTH OF STAY: 3 to 5 days. The patient is waiting for guardianship and placement. PRESLEY DR: Jyoti TID: [id number]
[2021-05-13 06:00] VITALS: BP 121/71
[2021-05-13] MEDS: dilTIAZem HCL 30 MG TABLET PO SCH ×2 (08:08→20:00)
[2021-05-13] MEDS: DIPHENOXYLATE/ATROPINE TABLET. PO SCH ×2 (08:09→19:57)
[2021-05-13] MEDS: DULoxetine HCL 30 MG CAPSULE.DR PO SCH ×2 (08:09→17:08)
[2021-05-13] MEDS: hydroCHLOROthiazide 25 MG TABLET. PO SCH (08:09)
[2021-05-13] MEDS: GABAPENTIN 300 MG CAPSULE. PO SCH ×4 (08:09→19:59)
[2021-05-13] MEDS: sulfaSALAzine 500 MG TABLET PO SCH ×3 (08:09→17:11)
[2021-05-13] MEDS: PANTOPRAZOLE 40 MG TABLET. PO SCH (08:09)
[2021-05-13] MEDS: ARIPiprazole 5 MG TABLET PO SCH (08:09)
[2021-05-13] MEDS: DICYCLOMINE HCL 20 MG TABLET PO SCH ×3 (08:09→20:00)
[2021-05-13] MEDS: buPROPion XL 300 MG TAB.ER.24H. PO SCH (08:09)
[2021-05-13] MEDS: HYDROXYUREA 500 MG CAPSULE PO SCH (08:09)
[2021-05-13] MEDS: LIPASE/PROTEAS/AMYLAS 10/32/42 CAPSULE.DR. PO SCH ×3 (08:09→17:08)
[2021-05-13] MEDS: FLUTICASONE 50MCG/NASAL SPRAY 16GM BOTTLE. NS SCH (08:10)
[2021-05-13] MEDS: IPRATROPIUM/ALBUTEROL 20/100mcg/INH INHALER. INH SCH ×4 (08:10→19:56)
[2021-05-13] MEDS: POTASSIUM CHLORIDE 10 MEQ TABLET.ER. PO SCH ×2 (08:13→19:59)
[2021-05-13 15:52] VITALS: BP 151/98
--- NOTE | 2021-05-13 17:55 | NUR ---
Nsg Note: Brigitte has been calm, cooperative and med compliant. she likes to be in the dayroom with others between meals and chats with peers and staff. She was incontinent of a large amt of stool.
[2021-05-13] MEDS: DIVALPROEX ER 500 MG TAB.ER.24H PO SCH (19:56)
[2021-05-13] MEDS: traZODone 50 MG TABLET. PO SCH (19:59)
--- NOTE | 2021-05-13 21:00 | NUR ---
Patient is located in her room on assumption of care, awake in bed. She is in pleasant spirits, interactive, appropriate. She is A/O x4, compliant with assessments and medications whole a couple at a time on a spoon. Cooperative with HS care. She denies any pain or discomfort currently, and appears to be sleeping comfortably. Will continue to monitor.
[2021-05-14 06:28] VITALS: BP 109/75
[2021-05-14] MEDS: FLUTICASONE 50MCG/NASAL SPRAY 16GM BOTTLE. NS SCH (08:31)
[2021-05-14] MEDS: HYDROXYUREA 500 MG CAPSULE PO SCH (08:32)
[2021-05-14] MEDS: IPRATROPIUM/ALBUTEROL 20/100mcg/INH INHALER. INH SCH ×4 (08:33→19:47)
[2021-05-14] MEDS: sulfaSALAzine 500 MG TABLET PO SCH ×3 (08:33→16:26)
[2021-05-14] MEDS: PANTOPRAZOLE 40 MG TABLET. PO SCH (08:33)
[2021-05-14] MEDS: LIPASE/PROTEAS/AMYLAS 10/32/42 CAPSULE.DR. PO SCH ×3 (08:33→16:26)
[2021-05-14] MEDS: DULoxetine HCL 30 MG CAPSULE.DR PO SCH ×2 (08:33→16:26)
[2021-05-14] MEDS: GABAPENTIN 300 MG CAPSULE. PO SCH ×4 (08:34→19:49)
[2021-05-14] MEDS: DIPHENOXYLATE/ATROPINE TABLET. PO SCH ×2 (08:34→19:50)
[2021-05-14] MEDS: POTASSIUM CHLORIDE 10 MEQ TABLET.ER. PO SCH ×2 (08:34→19:49)
[2021-05-14] MEDS: hydroCHLOROthiazide 25 MG TABLET. PO SCH (08:34)
[2021-05-14] MEDS: DICYCLOMINE HCL 20 MG TABLET PO SCH ×3 (08:34→19:49)
[2021-05-14] MEDS: dilTIAZem HCL 30 MG TABLET PO SCH ×2 (08:34→19:48)
[2021-05-14] MEDS: ARIPiprazole 5 MG TABLET PO SCH (08:34)
[2021-05-14] MEDS: buPROPion XL 300 MG TAB.ER.24H. PO SCH (08:34)
--- NOTE | 2021-05-14 13:46 | NUR ---
Nursing note: Patient in dinning room for morning medications & assessment. She is compliant taking medications whole. She is A/O X3, not to situation. She is pleasant, compliant, interactive with peers & somewhat confused at times. Patient denies pain/discomfort at this time. She interacts with groups. She is a stand by assist for transfers and cares. She is currently sitting in w/c in the day room. Will continue to monitor.
--- NOTE | 2021-05-14 14:04 | PN ---
DATE: 05/13/2021 SUBJECTIVE: This is a late entry for the service date 05/13/2021 by telehealth. Discussed with the staff, chart reviewed. The patient continues to show improvement, getting anxious and restless because she is not able to have a place to go back to. Apparently, she is on the waiting list. OBSERVATION: VITAL SIGNS: Temperature 96.8, blood pressure 121/71, pulse 94, respirations 20, O2 sat 91%. GENERAL: Slept about 7 hours last night. The patient's appetite is fair. The patient denies of any physical complaints. LABORATORY DATA: The patient's lab reviewed. CURRENT MEDICATIONS: Depakote 1000 mg at night, Cymbalta 30 mg twice a day, gabapentin 300 mg 4 times a day, trazodone 50 mg at night and Wellbutrin XL 100 mg daily. The patient is also on Zyprexa Zydis 2.5 mg q. 2 hours p.r.n. and Abilify 5 mg daily. She is not having any side effects. ASSESSMENT: 1. Bipolar disorder. 2. Generalized anxiety disorder. PLAN: To continue treatment. LENGTH OF STAY: Three to five days. R[address] DR: Jyoti TID: [id number]
--- NOTE | 2021-05-14 15:15 | PN ---
DATE: 05/14/2021 SUBJECTIVE: The patient was seen today, met with the staff, chart reviewed. The patient's behavior remains the same. She has no major complaints except for anxiety and frustration and wanting to be discharged as soon as possible and she wants to go on with her life. The patient also aware that she is waiting for the guardianship and placement issues. OBSERVATION: VITAL SIGNS: Temperature of 98.0, blood pressure 109/75, pulse 71, respirations 20, O2 sat 91%. GENERAL: Slept about 8 hours last night. The patient's appetite fluctuates. The patient is not having any physical complaints. LABORATORY DATA: The patient's lab reviewed. MEDICATIONS: The patient's medications reviewed. She will continue on the Depakote, Cymbalta, gabapentin, Wellbutrin, trazodone and Abilify, not having any side effects. ASSESSMENT: 1. Bipolar disorder. 2. Generalized anxiety disorder. PLAN: To continue with treatment. LENGTH OF STAY: Three to five days. LUIS DR: Jyoti TID: [id number]
[2021-05-14 15:57] VITALS: BP 120/80
[2021-05-14] MEDS: traZODone 50 MG TABLET. PO SCH (19:49)
[2021-05-14] MEDS: DIVALPROEX ER 500 MG TAB.ER.24H PO SCH (19:50)
[2021-05-15] MEDS: ACETAMINOPHEN 500 MG TABLET PO PRN (05:29)
[2021-05-15 06:12] VITALS: BP 135/84
[2021-05-15 07:17] LABS: BASO % 1 % (0-3); EOS # 0.2 x10^3/uL (0.0-0.7); EOS % 3 % (0-3); HEMATOCRIT 37.9 % (36.0-47.0); LYMPH % 14 % (24-48); MEAN CORPUSCULAR HEMOGLOBIN 39 pg (25-35); MEAN CORPUSCULAR HGB CONC 34 g/dL (31-37); MEAN CORPUSCULAR VOLUME 112 fL (79-100); MONO # 0.6 x10^3/uL (0.0-1.1); MONO % 9 % (0-9); NEUT # 4.9 x10^3uL (1.8-7.7); NEUT % 73 % (31-73); PLATELET COUNT 262 x10^3/uL (140-400); RED BLOOD COUNT 3.37 x10^6/uL (3.50-5.40); RED CELL DISTRIBUTION WIDTH 13.7 % (11.5-14.5); WHITE BLOOD COUNT 6.7 x10^3/uL (4.0-11.0)
[2021-05-15 07:30] LABS: ALBUMIN 3.2 g/dL (3.4-5.0); CALCIUM 8.8 mg/dL (8.5-10.1); CREATININE 0.8 mg/dL (0.6-1.0); GFR 71.1; POTASSIUM 3.8 mmol/L (3.5-5.1); TOTAL BILIRUBIN 0.5 mg/dL (0.2-1.0); TOTAL PROTEIN 6.3 g/dL (6.4-8.2)
[2021-05-15] MEDS: FLUTICASONE 50MCG/NASAL SPRAY 16GM BOTTLE. NS SCH (08:22)
[2021-05-15] MEDS: IPRATROPIUM/ALBUTEROL 20/100mcg/INH INHALER. INH SCH ×4 (08:22→20:53)
[2021-05-15] MEDS: HYDROXYUREA 500 MG CAPSULE PO SCH (08:23)
[2021-05-15] MEDS: dilTIAZem HCL 30 MG TABLET PO SCH ×2 (08:24→20:52)
[2021-05-15] MEDS: hydroCHLOROthiazide 25 MG TABLET. PO SCH (08:24)
[2021-05-15] MEDS: DULoxetine HCL 30 MG CAPSULE.DR PO SCH ×2 (08:24→16:52)
[2021-05-15] MEDS: buPROPion XL 300 MG TAB.ER.24H. PO SCH (08:24)
[2021-05-15] MEDS: ARIPiprazole 5 MG TABLET PO SCH (08:24)
[2021-05-15] MEDS: DIPHENOXYLATE/ATROPINE TABLET. PO SCH ×2 (08:24→20:51)
[2021-05-15] MEDS: POTASSIUM CHLORIDE 10 MEQ TABLET.ER. PO SCH ×2 (08:24→20:52)
[2021-05-15] MEDS: PANTOPRAZOLE 40 MG TABLET. PO SCH (08:24)
[2021-05-15] MEDS: DICYCLOMINE HCL 20 MG TABLET PO SCH ×3 (08:24→20:52)
[2021-05-15] MEDS: LIPASE/PROTEAS/AMYLAS 10/32/42 CAPSULE.DR. PO SCH ×3 (08:24→16:52)
[2021-05-15] MEDS: sulfaSALAzine 500 MG TABLET PO SCH ×3 (08:24→16:52)
[2021-05-15] MEDS: GABAPENTIN 300 MG CAPSULE. PO SCH ×4 (08:25→20:51)
--- NOTE | 2021-05-15 15:44 | NUR ---
Nursing note: Patient in dinning room for morning medications & assessment. She is compliant taking medications whole. She is A/O X3, not to situation. She is pleasant, compliant, interactive with peers & minor confusion at times. Patient denies pain/discomfort at this time. She interacts with groups. She is a stand by assist for transfers and cares. She is currently sitting in w/c in the day room. Will continue to monitor.
[2021-05-15 16:22] VITALS: BP 119/79
[2021-05-15] MEDS: traZODone 50 MG TABLET. PO SCH (20:51)
[2021-05-15] MEDS: DIVALPROEX ER 500 MG TAB.ER.24H PO SCH (20:52)
--- NOTE | 2021-05-15 21:47 | PN ---
DATE: 05/15/2021 SUBJECTIVE: The patient was seen today, met with the staff. Chart was reviewed and also covering for Dr. Duffy. Staff reports no major behavior problems except she is upset with the other resident who is creating a lot of problems on the unit. The patient states she is ready to be discharged and she is awaiting for placement. OBSERVATION: VITAL SIGNS: Temperature 97.8, blood pressure 135/84, pulse 90, respirations 20, O2 sat 95%. GENERAL: Slept about 8 hours last night. The patient's appetite improved. The patient not having any physical complaints at this time. CURRENT MEDICATIONS: The patient's current medications include Depakote ER 1000 mg at night, Cymbalta 30 mg twice a day, gabapentin 300 mg 4 times a day, Wellbutrin 300 mg daily, Abilify 5 mg daily and trazodone 50 mg at night. She is also on Zyprexa Zydis 2.5 mg q. 2 hours p.r.n. The patient is not having any side effects to medications. ASSESSMENT: 1. Generalized anxiety disorder. 2. Bipolar disorder. PLAN: To continue with treatment. LENGTH OF STAY: 3-5 days. Awaiting for placement. BRIAN DR: Jyoti TID: [id number]
--- NOTE | 2021-05-16 03:43 | NUR ---
Pt has been cooperative with meds and care tonight. She is social with peers and has had no behaviors tonight.
[2021-05-16 06:09] VITALS: BP 113/69
[2021-05-16] MEDS: IPRATROPIUM/ALBUTEROL 20/100mcg/INH INHALER. INH SCH ×4 (08:28→20:26)
[2021-05-16] MEDS: FLUTICASONE 50MCG/NASAL SPRAY 16GM BOTTLE. NS SCH (08:28)
[2021-05-16] MEDS: sulfaSALAzine 500 MG TABLET PO SCH ×3 (08:29→17:11)
[2021-05-16] MEDS: POTASSIUM CHLORIDE 10 MEQ TABLET.ER. PO SCH ×2 (08:29→20:28)
[2021-05-16] MEDS: HYDROXYUREA 500 MG CAPSULE PO SCH (08:31)
[2021-05-16] MEDS: DICYCLOMINE HCL 20 MG TABLET PO SCH ×3 (08:32→20:28)
[2021-05-16] MEDS: DULoxetine HCL 30 MG CAPSULE.DR PO SCH ×2 (08:32→17:11)
[2021-05-16] MEDS: LIPASE/PROTEAS/AMYLAS 10/32/42 CAPSULE.DR. PO SCH ×3 (08:32→17:11)
[2021-05-16] MEDS: DIPHENOXYLATE/ATROPINE TABLET. PO SCH ×2 (08:32→20:28)
[2021-05-16] MEDS: PANTOPRAZOLE 40 MG TABLET. PO SCH (08:32)
[2021-05-16] MEDS: GABAPENTIN 300 MG CAPSULE. PO SCH ×4 (08:32→20:28)
[2021-05-16] MEDS: dilTIAZem HCL 30 MG TABLET PO SCH ×2 (08:32→20:27)
[2021-05-16] MEDS: ARIPiprazole 5 MG TABLET PO SCH (08:33)
[2021-05-16] MEDS: hydroCHLOROthiazide 25 MG TABLET. PO SCH (08:33)
[2021-05-16] MEDS: buPROPion XL 300 MG TAB.ER.24H. PO SCH (08:33)
--- NOTE | 2021-05-16 15:11 | NUR ---
Nursing note: Patient in dinning room for morning medications & assessment. She is compliant taking medications whole. She is A/O X4. She is pleasant, compliant, interactive with peers & minor confusion at times. She did get triggered by peer making statements about his family, resulting in her voicing her concerns about her family. Patient denies pain/discomfort at this time. She interacts with groups. She is a stand by assist for transfers and cares. She is currently sitting in w/c in the ascencio. Will continue to monitor.
[2021-05-16 15:39] VITALS: BP 104/53
[2021-05-16] MEDS: DIVALPROEX ER 500 MG TAB.ER.24H PO SCH (20:27)
[2021-05-16] MEDS: traZODone 50 MG TABLET. PO SCH (20:28)
--- NOTE | 2021-05-16 21:46 | PN ---
DATE: 05/16/2021 SUBJECTIVE: The patient was seen today, met with the staff, chart reviewed. The patient's behavior remains the same. She is having difficulty dealing with her stay here, getting restless and also anxiety and irritability and some mood swings. Mainly not able to have a place to go to. Still awaiting for the guardianship and her placement. OBSERVATION: VITAL SIGNS: Temperature 98.4, blood pressure 113/69, pulse 92, respirations 18, O2 sat 91%. GENERAL: Slept about 7 hours last night. The patient's appetite is fair. CURRENT MEDICATIONS: Include Depakote ER 1000 mg at night, Cymbalta 30 mg twice a day, gabapentin 300 mg 4 times daily, Wellbutrin 300 mg daily, Abilify 5 mg daily and trazodone 50 mg at night. She is also on Zyprexa Zydis 2.5 mg q. 2 hours p.r.n. The patient is not having any side effects to medications. Patient is not having any physical complaints. ASSESSMENT: 1. Generalized anxiety disorder. 2. Bipolar disorder. PLAN: To continue with the treatment. LENGTH OF STAY: Three to five days and awaiting for placement. JACKIE DR: Jyoti TID: [id number]
[2021-05-17 06:25] VITALS: BP 116/64
[2021-05-17] MEDS: DIPHENOXYLATE/ATROPINE TABLET. PO SCH ×2 (08:16→20:31)
[2021-05-17] MEDS: GABAPENTIN 300 MG CAPSULE. PO SCH ×4 (08:17→20:32)
[2021-05-17] MEDS: ARIPiprazole 5 MG TABLET PO SCH (08:17)
[2021-05-17] MEDS: POTASSIUM CHLORIDE 10 MEQ TABLET.ER. PO SCH ×2 (08:17→20:31)
[2021-05-17] MEDS: dilTIAZem HCL 30 MG TABLET PO SCH ×2 (08:17→20:30)
[2021-05-17] MEDS: DULoxetine HCL 30 MG CAPSULE.DR PO SCH ×2 (08:17→17:29)
[2021-05-17] MEDS: buPROPion XL 300 MG TAB.ER.24H. PO SCH (08:18)
[2021-05-17] MEDS: PANTOPRAZOLE 40 MG TABLET. PO SCH (08:18)
[2021-05-17] MEDS: sulfaSALAzine 500 MG TABLET PO SCH ×3 (08:18→17:29)
[2021-05-17] MEDS: DICYCLOMINE HCL 20 MG TABLET PO SCH ×3 (08:18→20:31)
[2021-05-17] MEDS: HYDROXYUREA 500 MG CAPSULE PO SCH (08:19)
[2021-05-17] MEDS: LIPASE/PROTEAS/AMYLAS 10/32/42 CAPSULE.DR. PO SCH ×3 (08:19→17:29)
[2021-05-17] MEDS: hydroCHLOROthiazide 25 MG TABLET. PO SCH (08:19)
[2021-05-17] MEDS: IPRATROPIUM/ALBUTEROL 20/100mcg/INH INHALER. INH SCH ×4 (08:21→20:33)
[2021-05-17] MEDS: FLUTICASONE 50MCG/NASAL SPRAY 16GM BOTTLE. NS SCH (08:21)
--- NOTE | 2021-05-17 10:20 | NUR ---
BUSTER met with pt this morning per her request to discuss any updates on her case. BUSTER informed pt that a hotline to APS was made as the water hauler still cannot locate family or any close relative willing to step up as guardian or DPOA. BUSTER informed her that once a court date is set, it may be possible that she can be present or the courts will want to speak to her. Pt apologized for "bothering" BUSTER and BUSTER informed pt that she is not a bother and know that she is very anxious about everything and has been here for a long time now.
--- NOTE | 2021-05-17 14:21 | NUR ---
Nsg Note: Brigitte has been calm and cooperative today.
[2021-05-17 15:41] VITALS: BP 112/71
--- NOTE | 2021-05-17 18:34 | NUR ---
Nsg Note; delusions: Brigitte is convinced one of our SW is her friend of 43 years and refuses to believe that she is not. She calls the SW by her friend's name and states she gets her feelings hurt that the SW does not recognize her.
[2021-05-17] MEDS: DIVALPROEX ER 500 MG TAB.ER.24H PO SCH (20:32)
[2021-05-17] MEDS: traZODone 50 MG TABLET. PO SCH (20:32)
--- NOTE | 2021-05-17 21:43 | PN ---
DATE: 05/17/2021 SUBJECTIVE: The patient is seen today, met with the staff. Chart reviewed. The patient's behavior, remains the same, no major behavioral problems. She is still awaiting for placement. The patient is not exhibiting any major mood swings and no major cognitive deficits. OBSERVATION: VITAL SIGNS: Temperature 97.9, blood pressure 116/64, pulse 97, respirations 18, O2 sat 92%. GENERAL: Slept about 6-1/2 hours last night. The patient's appetite is fair. CURRENT MEDICATIONS: Include olanzapine 2.5 mg q. 2 hours p.r.n., Depakote ER 1000 mg at night, bupropion 300 mg daily, Cymbalta 30 mg twice a day and Abilify 5 mg daily. The patient is also on trazodone 50 mg at night and gabapentin 300 mg 4 times a day. The patient is not having any side effects to medications. ASSESSMENT: 1. Generalized anxiety disorder. 2. Bipolar disorder. PLAN: To continue with treatment. LENGTH OF STAY: Three to five days. Awaiting for placement. LAUREANO DR: Jyoti TID: [id number]
[2021-05-18 06:07] VITALS: BP 111/68
[2021-05-18] MEDS: IPRATROPIUM/ALBUTEROL 20/100mcg/INH INHALER. INH SCH ×4 (08:04→20:36)
[2021-05-18] MEDS: ARIPiprazole 5 MG TABLET PO SCH (08:05)
[2021-05-18] MEDS: buPROPion XL 300 MG TAB.ER.24H. PO SCH (08:05)
[2021-05-18] MEDS: FLUTICASONE 50MCG/NASAL SPRAY 16GM BOTTLE. NS SCH (08:05)
[2021-05-18] MEDS: DIPHENOXYLATE/ATROPINE TABLET. PO SCH ×2 (08:05→20:38)
[2021-05-18] MEDS: LIPASE/PROTEAS/AMYLAS 10/32/42 CAPSULE.DR. PO SCH ×3 (08:05→17:03)
[2021-05-18] MEDS: GABAPENTIN 300 MG CAPSULE. PO SCH ×4 (08:05→20:38)
[2021-05-18] MEDS: DICYCLOMINE HCL 20 MG TABLET PO SCH ×3 (08:05→20:38)
[2021-05-18] MEDS: sulfaSALAzine 500 MG TABLET PO SCH ×3 (08:05→17:03)
[2021-05-18] MEDS: POTASSIUM CHLORIDE 10 MEQ TABLET.ER. PO SCH ×2 (08:06→20:37)
[2021-05-18] MEDS: PANTOPRAZOLE 40 MG TABLET. PO SCH (08:06)
[2021-05-18] MEDS: hydroCHLOROthiazide 25 MG TABLET. PO SCH (08:06)
[2021-05-18] MEDS: dilTIAZem HCL 30 MG TABLET PO SCH ×2 (08:06→20:37)
[2021-05-18] MEDS: DULoxetine HCL 30 MG CAPSULE.DR PO SCH ×2 (08:06→17:03)
[2021-05-18] MEDS: HYDROXYUREA 500 MG CAPSULE PO SCH (08:07)
--- NOTE | 2021-05-18 11:46 | NUR ---
WEEKLY ACTIVITY THERAPY NOTE Date of Admission:02/16/21 Date of AT Assessment: 02/17 Precipitating behaviors that initiated intake and admission:putting self on floor, combative towards staff, refusing O2, threw medications, expresses she wants to & removes O2 Goal aimed: increase socialization and engagement Initial Goal: Pt will participate in at least three individual or group Activity Therapy sessions per week Goal changed 04/05:Pt will participate in at least three Activity Therapy sessions per week with moderate engagement Goal changed 04/13:Pt will participate in at least five Activity Therapy sessions per week Goal changed 04/27:Pt will participate in all Activity Therapy sessions per week Goal changed 05/11:Pt will participate fully in all Activity Therapy sessions offered Weekly progress towards goal: achieved, 6 full/6 Group participation level: 6 full Weekly highlights: shared memories throughout the year and provided herself with a goal Saturday morning, listed leisure activities Saturday afternoon Behaviors observed: social and pleasant, thinking staff members are people that she knows Plan: no change to goal Beneficial adaptations: socialization and engagement
--- NOTE | 2021-05-18 12:20 | NUR ---
Treatment team note: Pt is eating between 75-100% of meals and sleeping on average 7.5 hours per night. Pt is calm, cooperative and compliant with medications. Pt is working with physical therapy and has physically improved remarkably as shown by pt walking with and without a walker. Pt does carry the delusion that one of the SW is an old friend of her and cannot be convinced otherwise. An APS report has been made to see about getting a referral to the [place] Guardianship Program in hopes to get the process moving.
--- NOTE | 2021-05-18 13:10 | NUR ---
Nsg Note; Brigitte is having another good day. she is calm, cooperative, med compliant and sociable with peers and staff. She is getting stronger on her feet and ambs the halls with a walker and a standby staff member as she can be unbalanced at times. She eats well
[2021-05-18 15:52] VITALS: BP 154/78
[2021-05-18] MEDS: DIVALPROEX ER 500 MG TAB.ER.24H PO SCH (20:37)
[2021-05-18] MEDS: traZODone 50 MG TABLET. PO SCH (20:38)
--- NOTE | 2021-05-18 20:38 | PN ---
DATE: 05/18/2021 SUBJECTIVE: The patient was seen today, met with the staff. Chart reviewed and also participated in the treatment review meeting. Staff reports improvement with her behavior. Overall, she is not depressed, pleasant, gets along with the staff and other residents. They also noticed having some grandiose delusions at times, but not acting upon it. LABORATORY DATA: The patient's lab reviewed. CURRENT MEDICATIONS: The patient's current medications include olanzapine 2.5 mg q. 2 hours p.r.n., Depakote ER 1000 mg at night, bupropion 300 mg daily, Cymbalta 30 mg twice a day, and Abilify 5 mg daily. She is also on trazodone 50 mg at night and gabapentin 300 mg 4 times a day. She is not having any side effects to medications. OBSERVATION: VITAL SIGNS: Temperature 98.2, blood pressure 111/68, pulse 92, respirations 16, O2 sat 93%. Slept about 6-1/2 hours last night. GENERAL: The patient's appetite improved. ASSESSMENT: 1. Generalized anxiety disorder. 2. Bipolar disorder. PLAN: Continue treatment. LENGTH OF STAY: 5 days. The patient is awaiting for guardianship and then placement. FLORENCIA DR: Jyoti TID: [id number]
--- NOTE | 2021-05-19 03:13 | NUR ---
Nursing Note The patient was located in her room for her assessment and medication pass. The patient was calm and cooperative this shift. The patient took her medication whole. The patient was alert to name, date and location. The patient had some delusions related to [facility] staff. The patient reports that a staff member is actually her childhood friend. The patient was very upset with the staff member due to the staff member attempting to reorient that patient to reality. The patient is currently sleeping in her room.
[2021-05-19 06:24] VITALS: BP 115/73
[2021-05-19] MEDS: sulfaSALAzine 500 MG TABLET PO SCH ×3 (08:24→17:29)
[2021-05-19] MEDS: DICYCLOMINE HCL 20 MG TABLET PO SCH ×3 (08:25→20:40)
[2021-05-19] MEDS: POTASSIUM CHLORIDE 10 MEQ TABLET.ER. PO SCH ×2 (08:25→20:39)
[2021-05-19] MEDS: HYDROXYUREA 500 MG CAPSULE PO SCH (08:26)
[2021-05-19] MEDS: ARIPiprazole 5 MG TABLET PO SCH (08:27)
[2021-05-19] MEDS: DULoxetine HCL 30 MG CAPSULE.DR PO SCH ×2 (08:27→17:29)
[2021-05-19] MEDS: DIPHENOXYLATE/ATROPINE TABLET. PO SCH ×2 (08:27→20:39)
[2021-05-19] MEDS: LIPASE/PROTEAS/AMYLAS 10/32/42 CAPSULE.DR. PO SCH ×3 (08:27→17:29)
[2021-05-19] MEDS: PANTOPRAZOLE 40 MG TABLET. PO SCH (08:27)
[2021-05-19] MEDS: GABAPENTIN 300 MG CAPSULE. PO SCH ×4 (08:28→20:39)
[2021-05-19] MEDS: hydroCHLOROthiazide 25 MG TABLET. PO SCH (08:28)
[2021-05-19] MEDS: buPROPion XL 300 MG TAB.ER.24H. PO SCH (08:28)
[2021-05-19] MEDS: dilTIAZem HCL 30 MG TABLET PO SCH ×2 (08:29→20:40)
[2021-05-19] MEDS: FLUTICASONE 50MCG/NASAL SPRAY 16GM BOTTLE. NS SCH (08:30)
[2021-05-19] MEDS: IPRATROPIUM/ALBUTEROL 20/100mcg/INH INHALER. INH SCH ×4 (08:30→20:40)
--- NOTE | 2021-05-19 10:30 | NUR ---
BUSTER completed a Zoom call with Samara Matos at [facility] and with pt. Samara assessed pt mental status and asked more questions about her family. [facility] has attempted a few times to call pt son based off the numbers they have on file. Samara noted that she will also plan to send a letter out asking for them to contact [facility]. Samara noted that they have to show attempts before moving onto the next steps. In the event pt sons do not respond, Samara and her concrete pipe plant supervisor will have to reach out to the [place] [employer] to see if that would warrant pt an open case. Pt noted that she wanted to get home, which in her eyes was at [facility]; SW noted that they were not willing to accept pt back in February and is not sure that is an option. But BUSTER can try and reports other options may have to be evaluated. BUSTER and Samara will keep one another informed and will follow up on next steps for guardianship.
--- NOTE | 2021-05-19 13:12 | TX PLAN ---
Interdisciplinary Tx Plan Admission Information Feb 16, 2021 at 15:29 Legal Status (on Admission): Voluntary DPOA/Guardian Name: Patel Moise Contact Other Contact Name: Chasity Nazario Other Contact Verified Code Status: DNR Allergies: Coded Allergies: butorphanol (Verified Allergy, Unknown, 02/13/20) cefoxitin (Verified Allergy, Unknown, 02/13/20) codeine (Verified Allergy, Unknown, 02/13/20) gluten (Verified Allergy, Unknown, 02/13/20) lactose (Verified Allergy, Unknown, 02/13/20) Diagnoses Primary Diagnosis: Bipolar D/O mixed Reasons for Admission: Suicidal ideation, Poor impulse control Problem in Patient's Words: N/A Additional Admission Comments: According to the intake, pt is putting herself on the floor, combative towards staff, refusing oxygen/removes the tubing, throwing medications, expressed that she wants to . Problems Active Problems: putting self on floor removing oxygen Inactive Problems: medication compliant Pt Strengths/Limitations Ability for [place]: Poor Cognitive Functioning/Ability: Fair Communication Skills/Ability: Fair Financial Resources: Fair Insight/Judgement: Poor Intellectual Ability: Fair Physical Health: Poor Social Skills: Poor Stability in Family: Poor Stability in School/Work: Poor Verbal Skills: Fair Discharge Criteria Discharge Criteria: Able meet basic life need, Adequate arrangements @DC, Improved behavior, Improved mood/thought Preliminary Discharge Plan Preliminary DC Plan: Current Living Arrange. Special Precautions Fall Risk: Moderate Initial D/C Plan Pt will return to [facility] once stable Identified Discharge Needs: None noted Currently Utilized Resources Currently Utilized Resources/P: Primary Care Physician Telehealth for psychiatry Referrals Community Resources: None Identified Problems/Hx/Goals Objectives/Short-Term Goals Short Term Goals: Dec. Outbursts, Medication Stabilization, Monitor Med Effects, Promote Coping Skill Short Term Goals in Patient's: N/A Interventions/Frequency Staff Interventions/Frequency&: Psychiatrist to assess pt at least 3x per week for medication management. Social Work to assess pt least 2x per week to identify barriers to care and discharge planning goals. Nursing to assess pt medication effect, behavior modification and complete 15 minute checks daily. Encourage participation in group activities (if applicable) or 1:1 engagement based off Activity Dept goals. 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 Education: Pt graduated high school in 1969 Community Follow-up Primary Care Physician Telehealth Treatment Plan Explained Patient/Vp Clinical Research had this treatment plan explained to him/her as indicated by the signature below and has been given the opportunity to ask questions and make suggestions: Date: Patient/Vp Clinical Research Signature: Status Update Update Pt is eating between 75-100% of meals and sleeping on average 7.5 hours per night. Pt is calm, cooperative and compliant with medications. Pt is working with physical therapy and has physically improved remarkably as shown by pt walking with and without a walker. Pt does carry the delusion that one of the SW is an old friend of her and cannot be convinced otherwise. An APS report has been made to see about getting a referral to the [place] [employer]hip Program in hopes to get the process moving. OK BAUTISTA May 19, 2021 13:12
[2021-05-19 15:52] VITALS: BP 115/75
[2021-05-19] MEDS: DIVALPROEX ER 500 MG TAB.ER.24H PO SCH (20:39)
[2021-05-19] MEDS: traZODone 50 MG TABLET. PO SCH (20:40)
--- NOTE | 2021-05-19 22:07 | PN ---
SUBJECTIVE: The patient continues to show improvement, not having any physical complaints. Staff reports compliant with the medications and cooperative with the staff. The patient is fair. The patient has not shown any major behavior problems, occasional delusions, but not acting upon it. OBSERVATION: VITAL SIGNS: Temperature 97.4, blood pressure 115/73, pulse 93, respirations 20, O2 sat 93%. Slept about 6-1/2 hours last night. LABORATORY DATA: The patient's lab reviewed. CURRENT MEDICATIONS: The patient's current medications include olanzapine 2.5 mg q. 2 hours p.r.n., Depakote ER 1000 mg at night, bupropion 300 mg daily, Cymbalta 30 mg twice a day, and Abilify 5 mg daily. The patient is also on trazodone 50 mg at night and gabapentin 300 mg 4 times a day. She is not having any side effects to medications. ASSESSMENT: 1. Generalized anxiety disorder. 2. Bipolar disorder. PLAN: To continue with treatment. LENGTH OF STAY: [address]: Jyoti TID: [id number]
--- NOTE | 2021-05-20 00:20 | NUR ---
Nursing Note The patient was located in her room for her medication pass and assessment. The patient was compliant with her medication and took them whole. The patient was alert to name, date and location. The patient reported no delusions or hallucinations. the patient was pleasant during interactions this shift. The patient is currently sleeping in her room.
[2021-05-20 06:21] VITALS: BP 101/65
[2021-05-20] MEDS: DULoxetine HCL 30 MG CAPSULE.DR PO SCH ×2 (08:58→17:16)
[2021-05-20] MEDS: DICYCLOMINE HCL 20 MG TABLET PO SCH ×3 (08:58→20:02)
[2021-05-20] MEDS: GABAPENTIN 300 MG CAPSULE. PO SCH ×4 (08:58→20:03)
[2021-05-20] MEDS: DIPHENOXYLATE/ATROPINE TABLET. PO SCH ×2 (08:58→20:04)
[2021-05-20] MEDS: buPROPion XL 300 MG TAB.ER.24H. PO SCH (08:59)
[2021-05-20] MEDS: POTASSIUM CHLORIDE 10 MEQ TABLET.ER. PO SCH ×2 (08:59→20:04)
[2021-05-20] MEDS: ARIPiprazole 5 MG TABLET PO SCH (08:59)
[2021-05-20] MEDS: dilTIAZem HCL 30 MG TABLET PO SCH ×2 (09:00→20:03)
[2021-05-20] MEDS: HYDROXYUREA 500 MG CAPSULE PO SCH (09:01)
[2021-05-20] MEDS: hydroCHLOROthiazide 25 MG TABLET. PO SCH (09:02)
[2021-05-20] MEDS: LIPASE/PROTEAS/AMYLAS 10/32/42 CAPSULE.DR. PO SCH ×3 (09:02→17:16)
[2021-05-20] MEDS: sulfaSALAzine 500 MG TABLET PO SCH ×3 (09:02→17:16)
[2021-05-20] MEDS: PANTOPRAZOLE 40 MG TABLET. PO SCH (09:03)
[2021-05-20] MEDS: IPRATROPIUM/ALBUTEROL 20/100mcg/INH INHALER. INH SCH ×4 (09:04→20:02)
[2021-05-20] MEDS: FLUTICASONE 50MCG/NASAL SPRAY 16GM BOTTLE. NS SCH (09:04)
[2021-05-20 16:14] VITALS: BP 124/71
[2021-05-20] MEDS ORDERED: ARIP5TAB13 PO (18:38)
[2021-05-20] MEDS ORDERED: IPRA4AER INH (18:39)
[2021-05-20] MEDS ORDERED: MAG-115 PO (18:41)
[2021-05-20] MEDS ORDERED: BUPR300T92 PO (18:41)
[2021-05-20] MEDS ORDERED: HYDR-2145 PO (18:42)
[2021-05-20] MEDS: traZODone 50 MG TABLET. PO SCH (20:02)
[2021-05-20 20:03] VITALS: BP 124/71
[2021-05-20] MEDS: DIVALPROEX ER 500 MG TAB.ER.24H PO SCH (20:03)
--- NOTE | 2021-05-20 22:36 | NUR ---
Transition Record was faxed to follow-up provider with the following elements: Reason for admission, procedures, tests, principal diagnosis, pending studies, patient instructions, 03/12 contact information for unit, phone number to obtain pending test results, plan for follow-up care, physician follow-up, advanced directive information, and medication list with dose, duration and instructions. This information was included in the following documents: History and physical, lab results, study results, progress notes, social work planning form, DC instruction form, patient visit summary, and medication reconciliation form. Date & time record faxed: 05/20/21 at 1999 Record faxed to: [facility]/Fax extension [phone] Record discussed with/ report given to: Janice BARR
[2021-05-21] MEDS ORDERED: ONDA4TAB12 PO (00:13)
[2021-05-21] MEDS ORDERED: OLAN2.5T3 PO (00:13)
--- NOTE | 2021-05-22 21:15 | DS ---
DATE OF DISCHARGE: 05/20/2021 DISCHARGE SUMMARY/PSYCHIATRIC PROGRESS NOTE This is a late entry, date of service 05/20, covers elements not covered in my initial note. REASON FOR ADMISSION:. Please refer to the admission history for details. Briefly, the patient is a 70-year-old female referred to us from [facility] by her primary care physician on account of worsening mood swings, putting herself on the floor, combative towards staff, refusing oxygen, throwing her medications. She was expressing her desire to wanting to be . She was frequently removing her oxygen and the oxygen saturations were dropping precipitously as a consequence of this with worsening confusion. It was noted that in 01/2021, she was transported to the Emergency Department due to removing oxygen and dropping her saturations down to 66% on room air and refusing to let the staff put it back on her. Behaviors were deemed dangerous, unmanageable. She was depressed and failed outpatient psychiatric intervention resulting in this referral. SIGNIFICANT FINDINGS AND CLINICAL COURSE: Following admission, the patient was seen daily individually by myself from a psychiatric standpoint, medical followup, Dr. Clark/Dr. Cheng. The patient was quite depressed, anxious, removing her oxygen, frequently dropping herself on the floor, minimizing, denying all of this when confronted. She was dangerous in her behaviors. Adjustments were made in her psychotropics and she seemed to respond to a combination of Depakote ER 1000 mg at bedtime for the bipolar disorder with a valproic acid level slightly subtherapeutic at 46, but clinically adequate. She was also on Cymbalta 30 mg twice a day, gabapentin 300 mg 4 times a day, trazodone 50 mg at bedtime, Wellbutrin-XL 300 mg a day, Abilify 5 mg a day, Zyprexa p.r.n. Her son who was her power of erisa attorney had withdrawn from this duty, which complicated her acceptance by a group home. This is what accounted for significant delay in her discharge with appropriate placement. The social workers worked diligently to help secure this as soon as possible. On 05/20/2021, she tested positive for COVID and was transferred to the medical surgical floor for stabilization and management. REVIEW OF SYSTEMS: Prior to discharge, shortness of breath on O2 supplements. No CV, , eye, ENT system symptoms on review. Ambulation impaired. Reliability fair. MENTAL STATUS EXAMINATION: The patient is oriented to herself, situation. Speech has some latency, coherent. Abstraction fair. Computation impaired. Language function intact. Attention span short. Mood and affect, less depressed. No active suicidal ideation, at discharge slightly distractible. CONDITION ON DISCHARGE: Improved from a psychiatric standpoint, medically compromised due to COVID positive status. FINAL DIAGNOSES: Bipolar 1 disorder, depressed, in partial remission; anxiety disorder, unspecified; impulse control disorder, unspecified; COVID positive status. Rest unchanged from admission. DISCHARGE MEDICATIONS: Please refer to the MRAD. FOLLOWUP: Outpatient psychiatric and medical followup on per Dr. Clark/Dr. Cheng. I would be happy to follow her there as requested. Time for discharge day management greater than [address]: Hank TID: [id number]
--- NOTE | 2021-05-23 07:45 | PDOC ---
Exam Note: Napoleon Note: Late entry for 05/20/2021. Please also refer to the separate dictated note~for this date of service dictated separately.~Patient seen individually. Discussed the patient with Nursing staff reviewed the chart.~Reviewed interim history and current functioning. Reviewed vital signs,~Labs/ Radiology~and current medic ations noted below. Continue current treatment with the changes noted in the dictated addendum note Assessment: Vital Signs/I&O: Vital Signs Date Time Temp Pulse Resp B/P (MAP) Pulse Ox O2 Delivery O2 Flow Rate FiO2 05/20/21 20:03 101 124/71 05/20/21 16:14 98.0 20 97 Room Air 05/20/21 06:21 2.0 Current Medications: I have reviewed the current psychotropics carefully including drug interactions. Risk benefit ratio favors no change other than as noted in my dictated progress note. Diagnosis: Problems: (1) Impulse control disorder, unspecified (2) Mild cognitive impairment (3) Anxiety disorder, unspecified (4) Bipolar 1 disorder, depressed NITHIN STEVENS MD May 23, 2021 07:45
== END 2021-05-20 22:42 | disposition short-term general hospital (02) | DRG 885 ==
LOC: GEROPSY 15:29
PROVIDERS: ADMIT Psychiatry & Neurology Psychiatry; ATTEND Psychiatry & Neurology Psychiatry
DX: F31.64 Bipolar disorder, current episode mixed, severe, with psychotic features (principal); U07.1 COVID-19; J98.11 Atelectasis; K50.90 Crohn's disease, unspecified, without complications; R45.851 Suicidal ideations; E73.9 Lactose intolerance, unspecified; F03.90 Unspecified dementia, unspecified severity, without behavioral disturbance, psychotic disturbance, mood disturbance, and anxiety; F09 Unspecified mental disorder due to known physiological condition; Z66 Do not resuscitate; F41.1 Generalized anxiety disorder; F60.9 Personality disorder, unspecified; F63.9 Impulse disorder, unspecified; G40.909 Epilepsy, unspecified, not intractable, without status epilepticus; J44.9 Chronic obstructive pulmonary disease, unspecified; K21.9 Gastro-esophageal reflux disease without esophagitis; S00.83XA Contusion of other part of head, initial encounter; W18.30XA Fall on same level, unspecified, initial encounter; Y93.89 Activity, other specified; Y92.89 Other specified places as the place of occurrence of the external cause; Y99.8 Other external cause status; Z79.899 Other long term (current) drug therapy; Z87.891 Personal history of nicotine dependence; Z88.5 Allergy status to narcotic agent; Z88.8 Allergy status to other drugs, medicaments and biological substances
CPT/HCPCS: 36415; 70450; 71045; 80048; 80053; 80061; 80164; 80177; 81001; 82140; 82306; 82550; 82607; 83036; 83540; 83550; 83605; 83735; 84436; 84443; 84480; 85025; 85379; 86592; 87086; 87493; 90471; 90686; 93005; Q0162; U0003; 92610; 97110; 97112; 97116; 97530

== ENCOUNTER 2021-05-20 22:45 | Inpatient (IN) | payer MEDICARE, OTHER ==
[~2021-05-20] VITALS: Ht 152.4 cm; Wt 52.6 kg
[~2021-05-20 22:45] MED LIST changes: +ARIP5TAB13 PO; +ASCO500C9 PO; +BUPR300T92 PO; +HYDR-2145 PO; +LACT460C PO; +MAG-115 PO; +ZINC100T PO
[2021-05-20 23:11] VITALS: BP 113/72
--- NOTE | 2021-05-20 23:12 | NUR ---
ADMIT NOTE Pt to unit with staff via w/c on 2L O2 NC per baseline. Vitals obtained, belongings logged, and pt oriented to room, call light, and unit routines. Expressed expectation to call for toileting needs, bed alarm on as precaution.
[2021-05-21] MEDS ORDERED: ONDA4TAB12 PO (00:13)
[2021-05-21] MEDS ORDERED: OLAN2.5T3 PO (00:13)
[2021-05-21] MEDS ORDERED: MAG HYDROX/AL HYDROX/SIMETH 30 ML ORAL.SUSP PO PRN (00:15)
[2021-05-21] MEDS ORDERED: ALBUTEROL SULFATE 8GM INHALER. INH PRN (00:45)
--- NOTE | 2021-05-21 05:36 | NUR ---
Nursing note: Pt rested comfortably through much of shift after admission. No c/o pain, nausea, or increase O2 demands.
[2021-05-21 05:41] VITALS: BP 94/58
[2021-05-21] MEDS: PANTOPRAZOLE 40 MG TABLET. PO SCH (07:59)
[2021-05-21] MEDS: LIPASE/PROTEAS/AMYLAS 10/32/42 CAPSULE.DR. PO SCH ×3 (07:59→16:33)
[2021-05-21] MEDS: POTASSIUM CHLORIDE 10 MEQ TABLET.ER. PO SCH (08:00)
[2021-05-21] MEDS: ARIPiprazole 5 MG TABLET PO SCH (08:00)
[2021-05-21] MEDS: DIPHENOXYLATE/ATROPINE TABLET. PO PRN (08:01)
[2021-05-21] MEDS: IPRATROPIUM/ALBUTEROL 20/100mcg/INH INHALER. INH SCH ×4 (08:03→20:00)
[2021-05-21] MEDS: sulfaSALAzine 500 MG TABLET PO SCH ×3 (08:04→21:16)
[2021-05-21] MEDS: FLUTICASONE 50MCG/NASAL SPRAY 16GM BOTTLE. NS SCH (08:04)
[2021-05-21] MEDS: DULoxetine HCL 30 MG CAPSULE.DR PO SCH ×2 (08:06→21:16)
[2021-05-21] MEDS: HYDROXYUREA 500 MG CAPSULE PO SCH (08:07)
[2021-05-21] MEDS: DICYCLOMINE HCL 20 MG TABLET PO SCH ×3 (08:55→21:16)
[2021-05-21] MEDS: LIDOCAINE (700MG/PATCH) PATCH. TP SCH (08:56)
[2021-05-21] MEDS: dilTIAZem HCL 30 MG TABLET PO SCH ×2 (08:56→21:16)
[2021-05-21] MEDS: buPROPion XL 300 MG TAB.ER.24H. PO SCH (08:56)
--- NOTE | 2021-05-21 09:01 | HP ---
DATE OF SERVICE: 05/21/2021 ADMIT DATE: 05/20/2021 ATTENDING PHYSICIAN: Dr. Cheng. We are asked to admit this patient for positive COVID test. HISTORY OF PRESENT ILLNESS: The patient is a 70-year-old female who [facility] the [facility] several weeks. She unfortunately is a smoker. She has not been vaccinated. She tested positive for the coronavirus just yesterday. She has no symptoms. She denied any chest pain, shortness of breath. She is on supplemental oxygen before all this due to COPD. She is admitted down here because of her positive COVID test. PAST MEDICAL HISTORY: Significant for COPD, Crohn's disease, irritable bowel syndrome, chronic cognitive impairment, gastroesophageal reflux disease and idiopathic seizure disorder. PAST SURGICAL HISTORY: Multiple surgeries for Crohn's disease. PSYCHIATRIC HISTORY: Bipolar disorder, periods of elation, racing thoughts. Apparently, she has been more depressed and hopeless lately necessitating an admission to the [facility]. CODE STATUS: DNR. ALLERGIES: BUTORPHANOL, CEFOXITIN, CODEINE, GLUTEN AND LACTOSE. CURRENT MEDICATIONS: From upstairs include acetaminophen, albuterol, Abilify, BuSpar, dicyclomine, diltiazem, Depakote, Cymbalta, fluticasone, hydroxyurea, Lidoderm patch, Creon, olanzapine, ondansetron p.r.n., Protonix, potassium, and sulfasalazine 3 times a day. SOCIAL HISTORY: She was a smoker in the past. FAMILY HISTORY: Noncontributory. REVIEW OF SYSTEMS: Significant for the positive test. PHYSICAL EXAMINATION: GENERAL: When I saw her, this is a pleasant elderly female. VITAL SIGNS: Initial vital signs showed a blood pressure of 113/72, her oxygen saturation 93% on 2 liters, which is her baseline; temperature 98.3 degrees Fahrenheit, pulse 84 and regular. HEENT: Head is without trauma. Pupils are reactive. Sclerae nonicteric. Oropharynx is clear. NECK: Supple, no bruits. LUNGS: Clear. CARDIOVASCULAR: Regular heart tones. ABDOMEN: Soft. EXTREMITIES: Without edema. NEUROLOGIC FINDINGS: Focally intact. PERTINENT LABORATORY STUDIES: Have been reviewed. She has a positive coronavirus swab on the most recent test yesterday, hemoglobin was 13.0 gram. ASSESSMENT: 1. This 70-year-old female has asymptomatic COVID exposure. She has not been vaccinated. 2. Bipolar disorder. 3. Underlying depression with anxiety. 4. History of Crohn's disease. 5. Chronic obstructive pulmonary disease. 6. Gastroesophageal reflux disease. PLAN: 1. Admit to the inpatient unit. 2. Home meds have been continued. 3. Supplemental oxygen has been added. 4. We will follow up on chest x-rays and symptoms. Right now, she is asymptomatic, does not need to be treated for her positive COVID swab. CIRILO DR: Bacilio TID: [id number]
--- NOTE | 2021-05-21 10:20 | NUR ---
NURSE NOTE PT MORNING MEDICATIONS AND ASSESSMENT COMPLETE. PT A&OX4 AND DENIES ANY PAIN OR DISCOMFORT AT THIS TIME. PT AMBULATED TO BATHROOM WITH THIS RN'S ASSISTANCE. PT BACK IN BED WATCHING TV. NASAL CANNULA PLACED ON 2L. ALL NEEDS MET AT THIS TIME.
[2021-05-21 10:56] VITALS: BP 113/66
[2021-05-21] MEDS ORDERED: PHENOL ORAL SPRAY 177ML BOTTLE. PO PRN (12:00)
[2021-05-21 15:49] VITALS: BP 108/70
[2021-05-21 19:00] VITALS: BP 116/72
[2021-05-21] MEDS: PATCH REMOVAL. MC SCH (21:00)
[2021-05-21] MEDS: DIVALPROEX ER 500 MG TAB.ER.24H PO SCH (21:16)
[2021-05-21] MEDS: ACETAMINOPHEN 500 MG TABLET PO PRN (21:16)
[2021-05-21 23:00] VITALS: BP 105/63
[2021-05-22] MEDS: IPRATROPIUM/ALBUTEROL 20/100mcg/INH INHALER. INH SCH ×4 (07:44→20:35)
[2021-05-22] MEDS: PANTOPRAZOLE 40 MG TABLET. PO SCH (07:44)
[2021-05-22] MEDS: LIPASE/PROTEAS/AMYLAS 10/32/42 CAPSULE.DR. PO SCH ×3 (07:44→16:14)
--- NOTE | 2021-05-22 08:07 | PDOC ---
Exam Note: Napoleon Note: This note is a late entry for 05/21/2021 covers elements not covered in my initial note. Subjective: The patient was seen on telehealth rounds in the evening of 05/21/2021 due to COVID-19 exposure on our unit and half the patients have been COVID positive and transferred to the Medical/Surgical Floor. Discussed with Anel BARR and reviewed the chart. Also discussed the patient with Dr. Garrido who covered for me for the past 2 weeks. Reviewed current and past records, labs, etc. I have been asked to follow the patient on [facility] from [facility] due to COVID positive status. Dr. Cheng is the attending editor dictionary on [facility]. She has not been removing her oxygen and not dropping herself on the floor which has been an improvement. She is reasonably oriented. Review of Systems: Shortness of breath on O2 supplements. Impaired ambulation. No CV, , eye, ENT system symptoms on review. Mental Status Exam: The patient is reasonably oriented to herself and situation. Speech coherent. Abstraction fair. Computation impaired. Language function intact. Attention span short. Mood and affect somewhat withdrawn. Laboratory Data: Reviewed. Impression: Bipolar disorder, depressed. Anxiety disorder unspecified. Impulse control disorder unspecified. Plan: Continue current psychotropics. She is currently on Cymbalta 30 mg b.i.d., Depakote 1000 mg h.s., Abilify 5 mg a day, Wellbutrin 300 mg daily. We have reviewed drug interactions, risk-benefit ratio. We will continue to follow and adjust psychotropics as clinically indicated. Assessment: Vital Signs/I&O: Vital Signs Date Time Temp Pulse Resp B/P (MAP) Pulse Ox O2 Delivery O2 Flow Rate FiO2 05/21/21 23:00 97.9 89 16 105/63 (77) 94 Nasal Cannula 2.0 I & O 05/21/21 05/21/21 05/22/21 15:00 23:00 07:00 Intake Total 490 ml 340 ml 220 ml Output Total 1 ml Balance 490 ml 339 ml 220 ml Current Medications: Meds: Current Medications Medications (Trade) Dose Ordered Sig/Mya Route PRN Reason Start Time Stop Time Status Last Admin Dose Admin Aripiprazole (Abilify) 5 mg DAILY PO 05/21/21 09:00 05/21/21 08:00 Bupropion HCl (Wellbutrin Xl) 300 mg DAILY PO 05/21/21 09:00 05/21/21 08:56 Dicyclomine HCl (Bentyl) 20 mg TID PO 05/21/21 09:00 05/21/21 21:16 Diphenoxylate HCl/ Atropine (Lomotil) 2 tab PRN BID PRN PO DIARRHEA 05/21/21 09:00 05/21/21 08:01 Divalproex Sodium (Depakote Er) 1,000 mg HS PO 05/21/21 21:00 05/21/21 21:16 Duloxetine HCl (Cymbalta) 30 mg BID PO 05/21/21 09:00 05/21/21 21:16 Fluticasone Propionate (Flonase) 2 spray DAILY NS 05/21/21 09:00 05/21/21 08:04 Hydroxyurea (Hydrea) 1,000 mg DAILY PO 05/21/21 09:00 05/21/21 08:07 Potassium Chloride (Klor-Con) 30 meq DAILY PO 05/21/21 09:00 05/21/21 08:00 Sulfasalazine (Azulfidine) 500 mg TID PO 05/21/21 09:00 05/21/21 21:16 Diltiazem HCl (Cardizem) 60 mg BID PO 05/21/21 09:00 05/21/21 21:16 Miscellaneous (Lidoderm Patch Removal) 1 ea QHS MC 05/21/21 21:00 05/21/21 21:00 Throat Lozenges (Chloraseptic) 1 spray PRN Q2HR PRN PO SORE THROAT 05/21/21 12:00 05/21/21 12:14 I have reviewed the current psychotropics carefully including drug interactions. Risk benefit ratio favors no change other than as noted in my dictated progress note. Diagnosis: Problems: (1) Bipolar 1 disorder, depressed (2) Mild cognitive impairment (3) Impulse control disorder, unspecified (4) Anxiety disorder, unspecified NITHIN STEVENS MD May 22, 2021 08:07
[2021-05-22] MEDS: DULoxetine HCL 30 MG CAPSULE.DR PO SCH ×2 (08:11→20:36)
[2021-05-22] MEDS: POTASSIUM CHLORIDE 10 MEQ TABLET.ER. PO SCH (08:11)
[2021-05-22] MEDS: DICYCLOMINE HCL 20 MG TABLET PO SCH ×3 (08:11→20:37)
[2021-05-22] MEDS: dilTIAZem HCL 30 MG TABLET PO SCH ×2 (08:13→20:37)
[2021-05-22] MEDS: ARIPiprazole 5 MG TABLET PO SCH (08:17)
[2021-05-22] MEDS: sulfaSALAzine 500 MG TABLET PO SCH ×3 (08:17→20:36)
[2021-05-22] MEDS: buPROPion XL 300 MG TAB.ER.24H. PO SCH (08:18)
[2021-05-22] MEDS: FLUTICASONE 50MCG/NASAL SPRAY 16GM BOTTLE. NS SCH (08:18)
[2021-05-22] MEDS: LIDOCAINE (700MG/PATCH) PATCH. TP SCH (08:18)
[2021-05-22] MEDS: HYDROXYUREA 500 MG CAPSULE PO SCH (08:21)
[2021-05-22 10:09] VITALS: BP 126/73
--- NOTE | 2021-05-22 10:10 | NUR ---
NURS NOTE PT MEDICATIONS PASSED AND ASSESSMENTS DONE. PT IS ANXIOUS THIS MORNING AND CALLING OUT A LOT MORE THAN YESTERDAY. PATIENT SEEMS RESTLESS AND MORE AGGRESSIVE VERBALLY TODAY. PT STATES SHE IS NOT IN ANY PAIN. ALL NEEDS MET AT THIS TIME. WILL CONTINUE TO MONITOR.
--- NOTE | 2021-05-22 12:33 | PN ---
DATE: 05/22/2021 ATTENDING PHYSICIAN: Dr. Cheng. SUBJECTIVE: The patient is having loose stools. OBJECTIVE FINDINGS: VITAL SIGNS: Blood pressure this morning is 126/73 mmHg. She is afebrile. Oxygen saturation 96% on 2 liters, which is her baseline. She has underlying COPD. HEENT: Head is without trauma. Pupils are reactive. Sclerae nonicteric. Oropharynx clear. NECK: Supple. LUNGS: Clear. ABDOMEN: Soft. Hyperactive bowel sounds. No guarding or rebound tenderness. EXTREMITIES: Without edema. NEUROLOGIC: Pleasantly confused. ASSESSMENT: 1. A 70-year-old female with asymptomatic COVID exposure. She does have underlying chronic obstructive pulmonary disease. There is no active infection to treat. 2. Bipolar disorder. 3. Crohn's disease with exacerbation. 4. Chronic obstructive pulmonary disease. 5. Gastroesophageal reflux disease. PLAN: 1. Increase sulfasalazine to 1000 mg t.i.d. 2. Follow up chest x-ray. 3. Supplemental oxygen as ordered. 4. PRN Lomotil. 5. Diet as tolerated. FRANCIS/NATALIE DR: FRANCIS/caden TID: [id number]
[2021-05-22] MEDS: ONDANSETRON ODT 4 MG TAB.RAPDIS PO PRN (14:02)
[2021-05-22 15:28] VITALS: BP 114/70
[2021-05-22 19:00] VITALS: BP 133/79
[2021-05-22] MEDS: PATCH REMOVAL. MC SCH (20:35)
[2021-05-22] MEDS: DIVALPROEX ER 500 MG TAB.ER.24H PO SCH (20:36)
--- NOTE | 2021-05-22 21:02 | PDOC ---
Exam Note: Napoleon Note: Please also refer to the separate dictated note~for this date of service dictated separately.~Patient seen individually. Discussed the patient with Nursing staff reviewed the chart.~Reviewed interim history and current functioning. Reviewed vital signs,~Labs/ Radiology~and current medications noted below. Continue current treatment with the changes noted in the dictated addendum note Assessment: Vital Signs/I&O: Vital Signs Date Time Temp Pulse Resp B/P (MAP) Pulse Ox O2 Delivery O2 Flow Rate FiO2 05/22/21 20:37 89 133/79 05/22/21 19:00 97.5 16 94 Nasal Cannula 2.0 I & O 05/21/21 05/21/21 05/22/21 14:59 22:59 06:59 Intake Total 490 ml 340 ml 220 ml Output Total 1 ml Balance 490 ml 339 ml 220 ml Current Medications: Meds: Current Medications Medications (Trade) Dose Ordered Sig/Mya Route PRN Reason Start Time Stop Time Status Last Admin Dose Admin Sulfasalazine (Azulfidine) 1,000 mg TID PO 05/22/21 14:00 05/22/21 20:36 Ondansetron HCl (Zofran Odt) 4 mg PRN Q6HRS PRN PO NAUSEA/VOMITING 05/22/21 14:00 05/22/21 14:02 I have reviewed the current psychotropics carefully including drug interactions. Risk benefit ratio favors no change other than as noted in my dictated progress note. Diagnosis: Problems: (1) Impulse control disorder, unspecified (2) Mild cognitive impairment (3) Anxiety disorder, unspecified (4) Bipolar 1 disorder, depressed NITHIN STEVENS MD May 22, 2021 21:02
[2021-05-23 06:18] VITALS: BP 121/75
--- NOTE | 2021-05-23 07:38 | PDOC ---
Exam Note: Napoleon Note: This note is a late entry for 05/22/2021 covers elements not covered in my initial note. Subjective: The patient was reviewed by the nursing staff, reviewed the chart and interim history. Discussed with Aurelia BARR. Patient has had some nausea but not pulling out her oxygen, not dropping herself on the floor. Review of Systems: Per nursing assessment, ambulation impaired, in wheelchair. Shortness of breath on O2 supplements. No CV, , eye, ENT system symptoms on review. Mental Status Exam: The patient is reasonably oriented to herself and situation. Speech coherent per nursing assessment. Abstraction fair. Computation impaired. Language function intact. Mood and affect somewhat withdrawn. Laboratory Data: Reviewed. Impression: Bipolar disorder, depressed. Anxiety disorder unspecified. Impulse control disorder unspecified. Plan: Continue current psychotropics. Assessment: Vital Signs/I&O: Vital Signs Date Time Temp Pulse Resp B/P (MAP) Pulse Ox O2 Delivery O2 Flow Rate FiO2 05/23/21 06:18 97.8 91 18 121/75 (90) 93 Nasal Cannula 2.0 I & O 05/22/21 05/22/21 05/23/21 15:00 23:00 07:00 Intake Total 480 ml 240 ml 200 ml Output Total 2 ml Balance 480 ml 240 ml 198 ml Current Medications: Meds: Current Medications Medications (Trade) Dose Ordered Sig/Mya Route PRN Reason Start Time Stop Time Status Last Admin Dose Admin Acetaminophen (Tylenol) 500 mg PRN Q6HRS PRN PO pain or fever 05/21/21 00:15 05/21/21 21:16 Aripiprazole (Abilify) 5 mg DAILY PO 05/21/21 09:00 05/22/21 08:17 Bupropion HCl (Wellbutrin Xl) 300 mg DAILY PO 05/21/21 09:00 05/22/21 08:18 Dicyclomine HCl (Bentyl) 20 mg TID PO 05/21/21 09:00 05/22/21 20:37 Diphenoxylate HCl/ Atropine (Lomotil) 2 tab PRN BID PRN PO DIARRHEA 05/21/21 09:00 05/21/21 08:01 Divalproex Sodium (Depakote Er) 1,000 mg HS PO 05/21/21 21:00 05/22/21 20:36 Duloxetine HCl (Cymbalta) 30 mg BID PO 05/21/21 09:00 05/22/21 20:36 Fluticasone Propionate (Flonase) 2 spray DAILY NS 05/21/21 09:00 05/22/21 08:18 Hydroxyurea (Hydrea) 1,000 mg DAILY PO 05/21/21 09:00 05/22/21 08:21 Lidocaine (Lidoderm) 1 patch DAILY TP 05/21/21 09:00 Al Hydroxide/Mg Hydroxide (Mylanta Plus Xs) 15 ml PRN AFTMEALHC PRN PO DYSPEPSIA 05/21/21 00:15 Pantoprazole Sodium (Protonix) 40 mg DAILYAC PO 05/21/21 07:30 05/22/21 07:44 Potassium Chloride (Klor-Con) 30 meq DAILY PO 05/21/21 09:00 05/22/21 08:11 Sulfasalazine (Azulfidine) 500 mg TID PO 05/21/21 09:00 05/22/21 10:52 DC 05/22/21 08:17 Albuterol Sulfate (Ventolin Hfa Inhaler) 1 puff PRN Q4HRS PRN INH SOA 05/21/21 00:45 Diltiazem HCl (Cardizem) 60 mg BID PO 05/21/21 09:00 05/22/21 20:37 Albuterol/ Ipratropium (Combivent Respimat 20-100 Mcg) 1 puff RTQID INH 05/21/21 08:00 05/22/21 20:35 Amylase/Lipase/ Protease (Zenpep 10,000) 2 cap TIDBFRMEAL PO 05/21/21 07:30 05/22/21 16:14 Miscellaneous (Lidoderm Patch Removal) 1 ea QHS MC 05/21/21 21:00 05/22/21 20:35 Throat Lozenges (Chloraseptic) 1 spray PRN Q2HR PRN PO SORE THROAT 05/21/21 12:00 05/21/21 12:14 Sulfasalazine (Azulfidine) 1,000 mg TID PO 05/22/21 14:00 05/22/21 20:36 Ondansetron HCl (Zofran Odt) 4 mg PRN Q6HRS PRN PO NAUSEA/VOMITING 05/22/21 14:00 05/22/21 14:02 Current Medications Medications (Trade) Dose Ordered Sig/Mya Route PRN Reason Start Time Stop Time Status Last Admin Dose Admin Sulfasalazine (Azulfidine) 1,000 mg TID PO 05/22/21 14:00 05/22/21 20:36 Ondansetron HCl (Zofran Odt) 4 mg PRN Q6HRS PRN PO NAUSEA/VOMITING 05/22/21 14:00 05/22/21 14:02 I have reviewed the current psychotropics carefully including drug interactions. Risk benefit ratio favors no change other than as noted in my dictated progress note. Diagnosis: Problems: (1) Impulse control disorder, unspecified (2) Bipolar 1 disorder, depressed (3) Anxiety disorder, unspecified (4) Mild cognitive impairment NITHIN STEVENS MD May 23, 2021 07:38
[2021-05-23] MEDS: IPRATROPIUM/ALBUTEROL 20/100mcg/INH INHALER. INH SCH ×4 (08:00→20:00)
[2021-05-23] MEDS: ARIPiprazole 5 MG TABLET PO SCH (08:07)
[2021-05-23] MEDS: sulfaSALAzine 500 MG TABLET PO SCH ×3 (08:07→21:17)
[2021-05-23] MEDS: DULoxetine HCL 30 MG CAPSULE.DR PO SCH ×2 (08:07→21:18)
[2021-05-23] MEDS: DICYCLOMINE HCL 20 MG TABLET PO SCH ×3 (08:09→21:17)
[2021-05-23] MEDS: dilTIAZem HCL 30 MG TABLET PO SCH ×2 (08:09→21:17)
[2021-05-23] MEDS: POTASSIUM CHLORIDE 10 MEQ TABLET.ER. PO SCH (08:09)
[2021-05-23] MEDS: HYDROXYUREA 500 MG CAPSULE PO SCH (08:09)
[2021-05-23] MEDS: LIPASE/PROTEAS/AMYLAS 10/32/42 CAPSULE.DR. PO SCH ×3 (08:10→16:30)
[2021-05-23] MEDS: FLUTICASONE 50MCG/NASAL SPRAY 16GM BOTTLE. NS SCH (08:10)
[2021-05-23] MEDS: PANTOPRAZOLE 40 MG TABLET. PO SCH (08:10)
[2021-05-23] MEDS: buPROPion XL 300 MG TAB.ER.24H. PO SCH (08:25)
[2021-05-23] MEDS: LIDOCAINE (700MG/PATCH) PATCH. TP SCH (08:46)
[2021-05-23 10:46] VITALS: BP 104/56
--- NOTE | 2021-05-23 11:05 | PN ---
DATE: 05/23/2021 ATTENDING PHYSICIAN: Dr. Cheng. SUBJECTIVE: The patient is comfortable. Loose stools are still present, not as bad as yesterday. OBJECTIVE FINDINGS: VITAL SIGNS: Blood pressure this morning is 121/75, oxygen saturation 93% on 2 liters, which is baseline for her. She is afebrile, pulse is 89 and regular. HEENT: Head is without trauma. Pupils are reactive. Sclerae nonicteric. Oropharynx clear. NECK: Supple. LUNGS: Clear. CARDIOVASCULAR: Showed regular heart tones. No gallops. ABDOMEN: Soft. There is no guarding or rebound tenderness. EXTREMITIES: Without edema. NEUROLOGIC: Pleasantly confused. ASSESSMENT: 1. A 70-year-old female with asymptomatic COVID exposure. She does have underlying COPD. There is no active infection at this time to treat. 2. Bipolar disorder. 3. Crohn's disease with previous resection. 4. Chronic obstructive pulmonary disease. 5. Gastroesophageal reflux disease. PLAN: 1. Sulfasalazine, increase this a 1000 mg t.i.d. 2. Lomotil for loose stools. 3. Supplemental oxygen, maintain. 4. Diet as tolerated. FRANCIS/ANGELICA DR: FRANCIS/cdaen TID: [id number] CC: NITHIN STEVENS MD
--- NOTE | 2021-05-23 11:52 | NUR ---
Pt appropriate this shift, denies SI/HI/VH/AH, absent of delusional statements. She is compliant with whole mediations on a spoon. She reports 8 chronic abd pain d/t her chrons disease, scheduled Lidocaine patch applied to abd per her request. COVID19 isolation continues. She appears in good spirits on account of having a tv in her room. Plan of care continues, will pass to for next shift.
[2021-05-23 15:55] VITALS: BP 121/68
[2021-05-23] MEDS: DIPHENOXYLATE/ATROPINE TABLET. PO PRN (17:33)
--- NOTE | 2021-05-23 17:33 | NUR ---
Pt c/o of frequent loose stools. PRN Lomotil PO administered at her request.
[2021-05-23 20:34] VITALS: BP 110/67
[2021-05-23] MEDS: PATCH REMOVAL. MC SCH (21:00)
[2021-05-23] MEDS: DIVALPROEX ER 500 MG TAB.ER.24H PO SCH (21:17)
--- NOTE | 2021-05-23 21:19 | PDOC ---
Exam Note: Napoleon Note: Please also refer to the separate dictated note~for this date of service dictated separately.~Patient seen individually. Discussed the patient with Nursing staff reviewed the chart.~Reviewed interim history and current functioning. Reviewed vital signs,~Labs/ Radiology~and current medications noted below. Continue current treatment with the changes noted in the dictated addendum note Assessment: Vital Signs/I&O: Vital Signs Date Time Temp Pulse Resp B/P (MAP) Pulse Ox O2 Delivery O2 Flow Rate FiO2 05/23/21 20:34 99.1 95 18 110/67 (81) 93 Nasal Cannula 2.0 I & O 05/22/21 05/22/21 05/23/21 15:00 23:00 07:00 Intake Total 480 ml 240 ml 200 ml Output Total 2 ml Balance 480 ml 240 ml 198 ml Current Medications: Meds: Current Medications Medications (Trade) Dose Ordered Sig/Mya Route PRN Reason Start Time Stop Time Status Last Admin Dose Admin Acetaminophen (Tylenol) 500 mg PRN Q6HRS PRN PO pain or fever 05/21/21 00:15 05/21/21 21:16 Aripiprazole (Abilify) 5 mg DAILY PO 05/21/21 09:00 05/23/21 08:07 Bupropion HCl (Wellbutrin Xl) 300 mg DAILY PO 05/21/21 09:00 05/23/21 08:25 Dicyclomine HCl (Bentyl) 20 mg TID PO 05/21/21 09:00 05/23/21 14:57 Diphenoxylate HCl/ Atropine (Lomotil) 2 tab PRN BID PRN PO DIARRHEA 05/21/21 09:00 05/23/21 17:33 Divalproex Sodium (Depakote Er) 1,000 mg HS PO 05/21/21 21:00 05/22/21 20:36 Duloxetine HCl (Cymbalta) 30 mg BID PO 05/21/21 09:00 05/23/21 08:07 Fluticasone Propionate (Flonase) 2 spray DAILY NS 05/21/21 09:00 05/23/21 08:10 Hydroxyurea (Hydrea) 1,000 mg DAILY PO 05/21/21 09:00 05/23/21 08:09 Lidocaine (Lidoderm) 1 patch DAILY TP 05/21/21 09:00 05/23/21 08:46 Al Hydroxide/Mg Hydroxide (Mylanta Plus Xs) 15 ml PRN AFTMEALHC PRN PO DYSPEPSIA 05/21/21 00:15 Pantoprazole Sodium (Protonix) 40 mg DAILYAC PO 05/21/21 07:30 05/23/21 08:10 Potassium Chloride (Klor-Con) 30 meq DAILY PO 05/21/21 09:00 05/23/21 08:09 Sulfasalazine (Azulfidine) 500 mg TID PO 05/21/21 09:00 05/22/21 10:52 DC 05/22/21 08:17 Albuterol Sulfate (Ventolin Hfa Inhaler) 1 puff PRN Q4HRS PRN INH SOA 05/21/21 00:45 Diltiazem HCl (Cardizem) 60 mg BID PO 05/21/21 09:00 05/23/21 08:09 Albuterol/ Ipratropium (Combivent Respimat 20-100 Mcg) 1 puff RTQID INH 05/21/21 08:00 05/23/21 16:00 Amylase/Lipase/ Protease (Zenpep 10,000) 2 cap TIDBFRMEAL PO 05/21/21 07:30 05/23/21 16:30 Miscellaneous (Lidoderm Patch Removal) 1 ea QHS MC 05/21/21 21:00 05/22/21 20:35 Throat Lozenges (Chloraseptic) 1 spray PRN Q2HR PRN PO SORE THROAT 05/21/21 12:00 05/21/21 12:14 Sulfasalazine (Azulfidine) 1,000 mg TID PO 05/22/21 14:00 05/23/21 15:14 Ondansetron HCl (Zofran Odt) 4 mg PRN Q6HRS PRN PO NAUSEA/VOMITING 05/22/21 14:00 05/22/21 14:02 I have reviewed the current psychotropics carefully including drug interactions. Risk benefit ratio favors no change other than as noted in my dictated progress note. Diagnosis: Problems: (1) Impulse control disorder, unspecified (2) Mild cognitive impairment (3) Anxiety disorder, unspecified (4) Bipolar 1 disorder, depressed NITHIN STEVENS MD May 23, 2021 21:19
[2021-05-23 23:59] VITALS: BP 114/71
[2021-05-24 06:17] VITALS: BP 122/75
--- NOTE | 2021-05-24 06:45 | PDOC ---
Exam Note: Napoleon Note: This note is a late entry for 05/23/2021 covers elements not covered in my initial note. Subjective: The patient was reviewed by the nursing staff, reviewed the chart and interim history. Discussed with Vero BARR. Overall she is doing reasonably well. She has not been removing her oxygen, not putting herself on the floor. Review of Systems: Per nursing assessment, shortness of breath on O2 supplements. Impaired ambulation. No CV, , eye, ENT system symptoms on review. Mental Status Exam: As assessed by nursing staff, she is alert, oriented to herself and situation. Speech coherent has some latency. Abstraction fair. Computation impaired. Language function intact. Mood and affect somewhat withdrawn. Laboratory Data: Reviewed. Impression: Bipolar disorder, depressed. Anxiety disorder unspecified. Impulse control disorder unspecified. Plan: Continue current psychotropics. Assessment: Vital Signs/I&O: Vital Signs Date Time Temp Pulse Resp B/P (MAP) Pulse Ox O2 Delivery O2 Flow Rate FiO2 05/24/21 06:17 98.7 94 16 122/75 (91) 93 Nasal Cannula 2.0 I & O 05/23/21 05/23/21 05/24/21 15:00 23:00 07:00 Intake Total 480 ml 240 ml 660 ml Output Total 1 ml Balance 479 ml 240 ml 660 ml Current Medications: Meds: Current Medications Medications (Trade) Dose Ordered Sig/Mya Route PRN Reason Start Time Stop Time Status Last Admin Dose Admin Acetaminophen (Tylenol) 500 mg PRN Q6HRS PRN PO pain or fever 05/21/21 00:15 05/21/21 21:16 Aripiprazole (Abilify) 5 mg DAILY PO 05/21/21 09:00 05/23/21 08:07 Bupropion HCl (Wellbutrin Xl) 300 mg DAILY PO 05/21/21 09:00 05/23/21 08:25 Dicyclomine HCl (Bentyl) 20 mg TID PO 05/21/21 09:00 05/23/21 21:17 Diphenoxylate HCl/ Atropine (Lomotil) 2 tab PRN BID PRN PO DIARRHEA 05/21/21 09:00 05/23/21 17:33 Divalproex Sodium (Depakote Er) 1,000 mg HS PO 05/21/21 21:00 05/23/21 21:17 Duloxetine HCl (Cymbalta) 30 mg BID PO 05/21/21 09:00 05/23/21 21:18 Fluticasone Propionate (Flonase) 2 spray DAILY NS 05/21/21 09:00 05/23/21 08:10 Hydroxyurea (Hydrea) 1,000 mg DAILY PO 05/21/21 09:00 05/23/21 08:09 Lidocaine (Lidoderm) 1 patch DAILY TP 05/21/21 09:00 05/23/21 08:46 Al Hydroxide/Mg Hydroxide (Mylanta Plus Xs) 15 ml PRN AFTMEALHC PRN PO DYSPEPSIA 05/21/21 00:15 Pantoprazole Sodium (Protonix) 40 mg DAILYAC PO 05/21/21 07:30 05/23/21 08:10 Potassium Chloride (Klor-Con) 30 meq DAILY PO 05/21/21 09:00 05/23/21 08:09 Sulfasalazine (Azulfidine) 500 mg TID PO 05/21/21 09:00 05/22/21 10:52 DC 05/22/21 08:17 Albuterol Sulfate (Ventolin Hfa Inhaler) 1 puff PRN Q4HRS PRN INH SOA 05/21/21 00:45 Diltiazem HCl (Cardizem) 60 mg BID PO 05/21/21 09:00 05/23/21 21:17 Albuterol/ Ipratropium (Combivent Respimat 20-100 Mcg) 1 puff RTQID INH 05/21/21 08:00 05/23/21 16:00 Amylase/Lipase/ Protease (Zenpep 10,000) 2 cap TIDBFRMEAL PO 05/21/21 07:30 05/23/21 16:30 Miscellaneous (Lidoderm Patch Removal) 1 ea QHS MC 05/21/21 21:00 05/23/21 21:00 Throat Lozenges (Chloraseptic) 1 spray PRN Q2HR PRN PO SORE THROAT 05/21/21 12:00 05/21/21 12:14 Sulfasalazine (Azulfidine) 1,000 mg TID PO 05/22/21 14:00 05/23/21 21:17 Ondansetron HCl (Zofran Odt) 4 mg PRN Q6HRS PRN PO NAUSEA/VOMITING 05/22/21 14:00 05/22/21 14:02 I have reviewed the current psychotropics carefully including drug interactions. Risk benefit ratio favors no change other than as noted in my dictated progress note. Diagnosis: Problems: (1) Impulse control disorder, unspecified (2) Mild cognitive impairment (3) Anxiety disorder, unspecified (4) Bipolar 1 disorder, depressed NITHIN STEVENS MD May 24, 2021 06:45
[2021-05-24] MEDS: PANTOPRAZOLE 40 MG TABLET. PO SCH (08:32)
[2021-05-24] MEDS: POTASSIUM CHLORIDE 10 MEQ TABLET.ER. PO SCH (08:33)
[2021-05-24] MEDS: dilTIAZem HCL 30 MG TABLET PO SCH ×2 (08:33→20:17)
[2021-05-24] MEDS: ARIPiprazole 5 MG TABLET PO SCH (08:33)
[2021-05-24] MEDS: DICYCLOMINE HCL 20 MG TABLET PO SCH ×3 (08:33→20:16)
[2021-05-24] MEDS: LIPASE/PROTEAS/AMYLAS 10/32/42 CAPSULE.DR. PO SCH ×3 (08:33→16:30)
[2021-05-24] MEDS: DULoxetine HCL 30 MG CAPSULE.DR PO SCH ×2 (08:33→20:16)
[2021-05-24] MEDS: IPRATROPIUM/ALBUTEROL 20/100mcg/INH INHALER. INH SCH ×4 (08:34→20:15)
[2021-05-24] MEDS: buPROPion XL 300 MG TAB.ER.24H. PO SCH (08:34)
[2021-05-24] MEDS: sulfaSALAzine 500 MG TABLET PO SCH ×3 (08:35→20:16)
[2021-05-24] MEDS: HYDROXYUREA 500 MG CAPSULE PO SCH (08:38)
[2021-05-24] MEDS: FLUTICASONE 50MCG/NASAL SPRAY 16GM BOTTLE. NS SCH (09:00)
[2021-05-24 10:42] VITALS: BP 131/74
[2021-05-24] MEDS: LIDOCAINE (700MG/PATCH) PATCH. TP SCH (11:15)
[2021-05-24] MEDS: DIPHENOXYLATE/ATROPINE TABLET. PO PRN (13:34)
[2021-05-24 14:46] VITALS: BP 132/81
[2021-05-24] MEDS: ACETAMINOPHEN 500 MG TABLET PO PRN (18:02)
[2021-05-24 19:39] VITALS: BP 136/79
[2021-05-24] MEDS: DIVALPROEX ER 500 MG TAB.ER.24H PO SCH (20:16)
[2021-05-24] MEDS: ONDANSETRON ODT 4 MG TAB.RAPDIS PO PRN (20:17)
[2021-05-24] MEDS: PATCH REMOVAL. MC SCH (20:18)
--- NOTE | 2021-05-24 20:49 | PDOC ---
Exam Note: Napoleon Note: Please also refer to the separate dictated note~for this date of service dictated separately.~Patient seen individually. Discussed the patient with Nursing staff reviewed the chart.~Reviewed interim history and current functioning. Reviewed vital signs,~Labs/ Radiology~and current medications noted below. Continue current treatment with the changes noted in the dictated addendum note Assessment: Vital Signs/I&O: Vital Signs Date Time Temp Pulse Resp B/P (MAP) Pulse Ox O2 Delivery O2 Flow Rate FiO2 05/24/21 20:17 87 136/79 05/24/21 19:39 98.2 18 95 Nasal Cannula 2.0 I & O 05/23/21 05/23/21 05/24/21 15:00 23:00 07:00 Intake Total 480 ml 240 ml 660 ml Output Total 1 ml Balance 479 ml 240 ml 660 ml Current Medications: Meds: Current Medications Medications (Trade) Dose Ordered Sig/Mya Route PRN Reason Start Time Stop Time Status Last Admin Dose Admin Acetaminophen (Tylenol) 500 mg PRN Q6HRS PRN PO pain or fever 05/21/21 00:15 05/24/21 18:02 Aripiprazole (Abilify) 5 mg DAILY PO 05/21/21 09:00 05/24/21 08:33 Bupropion HCl (Wellbutrin Xl) 300 mg DAILY PO 05/21/21 09:00 05/24/21 08:34 Dicyclomine HCl (Bentyl) 20 mg TID PO 05/21/21 09:00 05/24/21 20:16 Diphenoxylate HCl/ Atropine (Lomotil) 2 tab PRN BID PRN PO DIARRHEA 05/21/21 09:00 05/24/21 13:34 Divalproex Sodium (Depakote Er) 1,000 mg HS PO 05/21/21 21:00 05/24/21 20:16 Duloxetine HCl (Cymbalta) 30 mg BID PO 05/21/21 09:00 05/24/21 20:16 Fluticasone Propionate (Flonase) 2 spray DAILY NS 05/21/21 09:00 05/24/21 09:00 Hydroxyurea (Hydrea) 1,000 mg DAILY PO 05/21/21 09:00 05/24/21 08:38 Lidocaine (Lidoderm) 1 patch DAILY TP 05/21/21 09:00 05/24/21 11:15 Al Hydroxide/Mg Hydroxide (Mylanta Plus Xs) 15 ml PRN AFTMEALHC PRN PO DYSPEPSIA 05/21/21 00:15 Pantoprazole Sodium (Protonix) 40 mg DAILYAC PO 05/21/21 07:30 05/24/21 08:32 Potassium Chloride (Klor-Con) 30 meq DAILY PO 05/21/21 09:00 05/24/21 08:33 Sulfasalazine (Azulfidine) 500 mg TID PO 05/21/21 09:00 05/22/21 10:52 DC 05/22/21 08:17 Albuterol Sulfate (Ventolin Hfa Inhaler) 1 puff PRN Q4HRS PRN INH SOA 05/21/21 00:45 Diltiazem HCl (Cardizem) 60 mg BID PO 05/21/21 09:00 05/24/21 20:17 Albuterol/ Ipratropium (Combivent Respimat 20-100 Mcg) 1 puff RTQID INH 05/21/21 08:00 05/24/21 20:15 Amylase/Lipase/ Protease (Zenpep 10,000) 2 cap TIDBFRMEAL PO 05/21/21 07:30 05/24/21 16:30 Miscellaneous (Lidoderm Patch Removal) 1 ea QHS MC 05/21/21 21:00 05/24/21 20:18 Throat Lozenges (Chloraseptic) 1 spray PRN Q2HR PRN PO SORE THROAT 05/21/21 12:00 05/21/21 12:14 Sulfasalazine (Azulfidine) 1,000 mg TID PO 05/22/21 14:00 05/24/21 20:16 Ondansetron HCl (Zofran Odt) 4 mg PRN Q6HRS PRN PO NAUSEA/VOMITING 05/22/21 14:00 05/24/21 20:17 I have reviewed the current psychotropics carefully including drug interactions. Risk benefit ratio favors no change other than as noted in my dictated progress note. Diagnosis: Problems: (1) Impulse control disorder, unspecified (2) Mild cognitive impairment (3) Anxiety disorder, unspecified (4) Bipolar 1 disorder, depressed NITHIN STEVENS MD May 24, 2021 20:49
[2021-05-25 05:48] VITALS: BP 150/84
[2021-05-25 06:51] LABS: HEMATOCRIT 37.2 % (36.0-47.0); HEMOGLOBIN 12.5 g/dL (12.0-15.5); RED BLOOD COUNT 3.3 x10^6/uL (3.50-5.40); RED CELL DISTRIBUTION WIDTH 13.6 % (11.5-14.5); WHITE BLOOD COUNT 5.7 x10^3/uL (4.0-11.0)
--- NOTE | 2021-05-25 06:59 | PN ---
DATE: 05/24/2021 SUBJECTIVE: The patient is sitting at edge of the bed comfortably, in no apparent distress. On questioning her, she denied any complaint except that she feels dizzy and has to call for help to go to the bathroom and she continued to have some loose bowel movement. PHYSICAL EXAMINATION: GENERAL: When I examined her, she was somewhat pale, not jaundiced or cyanosed, no lymphadenopathy, no thyromegaly, no jugular venous distention. No limb edema. VITAL SIGNS: Her heart rate was 82, blood pressure was 132/81, temperature was 97.7, respiratory rate was 18 and oxygen saturation was 94% on 2 liters of oxygen. HEAD, EYES, EARS, NOSE, AND THROAT: Normocephalic, atraumatic. NECK: Supple. HEART: Normal first and second heart sounds. No gallop, rub or murmur. CHEST: Clear to auscultation, no crepitation or rhonchi. ABDOMEN: Distended, soft, nontender. NEUROLOGIC: She is demented, but without any obvious lateralizing sign. Her intake over the last 24 hours was 920. No output was recorded. LABORATORY DATA: Her most recent lab work showed a white cell count of 6700, hemoglobin 13, hematocrit 38, MCV 112 and platelet count ____. Her most recent chemistry showed a serum sodium of 142, potassium 3.8, chloride 99, bicarbonate 33, anion gap of 10, BUN 19, creatinine 0.8. Estimated GFR was 71 mL per minute. ASSESSMENT: 1. Asymptomatic COVID-19 exposure. 2. The patient has underlying chronic obstructive pulmonary disease that is oxygen dependent. 3. Bipolar disorder. 4. Crohn's disease, previous surgical resection. 5. Gastroesophageal reflux disease. PLAN: Continue with all her sulfasalazine 1000 mg 3 times a day. Continue with Lomotil for symptomatic treatment of loose stools, supplemental oxygen as needed. Diet as tolerated. Continue obviously with all the other medications. TOMI/PETRA/DAVID DR: TOMI/caden TID: [id number]
[2021-05-25 07:12] LABS: ALBUMIN 3.1 g/dL (3.4-5.0); ALBUMIN/GLOBULIN RATIO 1.1 (1.0-1.7); CALCIUM 8.4 mg/dL (8.5-10.1); CREATININE 0.7 mg/dL (0.6-1.0); POTASSIUM 3.5 mmol/L (3.5-5.1); TOTAL BILIRUBIN 0.6 mg/dL (0.2-1.0)
[2021-05-25] MEDS: IPRATROPIUM/ALBUTEROL 20/100mcg/INH INHALER. INH SCH ×4 (08:00→21:30)
[2021-05-25] MEDS: FLUTICASONE 50MCG/NASAL SPRAY 16GM BOTTLE. NS SCH (09:00)
[2021-05-25] MEDS: LIDOCAINE (700MG/PATCH) PATCH. TP SCH (09:00)
[2021-05-25] MEDS: sulfaSALAzine 500 MG TABLET PO SCH ×3 (09:12→20:44)
[2021-05-25] MEDS: dilTIAZem HCL 30 MG TABLET PO SCH ×2 (09:12→20:44)
[2021-05-25] MEDS: DULoxetine HCL 30 MG CAPSULE.DR PO SCH ×2 (09:13→20:44)
[2021-05-25] MEDS: LIPASE/PROTEAS/AMYLAS 10/32/42 CAPSULE.DR. PO SCH ×3 (09:13→16:30)
[2021-05-25] MEDS: HYDROXYUREA 500 MG CAPSULE PO SCH (09:13)
[2021-05-25] MEDS: buPROPion XL 300 MG TAB.ER.24H. PO SCH (09:13)
[2021-05-25] MEDS: POTASSIUM CHLORIDE 10 MEQ TABLET.ER. PO SCH (09:14)
[2021-05-25] MEDS: PANTOPRAZOLE 40 MG TABLET. PO SCH (09:14)
[2021-05-25] MEDS: ARIPiprazole 5 MG TABLET PO SCH (09:14)
[2021-05-25] MEDS: DICYCLOMINE HCL 20 MG TABLET PO SCH ×3 (09:14→20:44)
--- NOTE | 2021-05-25 14:38 | NUR ---
NURSE NOTE PT ASSESSMENT DONE AND MEDICATIONS PASSED. PT STATES SHE IS IN NO PAIN OR DISCOMFORT THROUGHOUT SHIFT. PT IS RESTING IN BED AND WATCHING TV. PT A&OX4. ALL NEEDS MET AT THIS TIME.
[2021-05-25 16:22] VITALS: BP 120/71
[2021-05-25 19:34] VITALS: BP 110/71
[2021-05-25] MEDS: DIVALPROEX ER 500 MG TAB.ER.24H PO SCH (20:44)
[2021-05-25] MEDS: PATCH REMOVAL. MC SCH (20:45)
--- NOTE | 2021-05-25 21:27 | PDOC ---
Exam Note: Napoleon Note: Please also refer to the separate dictated note~for this date of service dictated separately.~Patient seen individually. Discussed the patient with Nursing staff reviewed the chart.~Reviewed interim history and current functioning. Reviewed vital signs,~Labs/ Radiology~and current medications noted below. Continue current treatment with the changes noted in the dictated addendum note Assessment: Vital Signs/I&O: Vital Signs Date Time Temp Pulse Resp B/P (MAP) Pulse Ox O2 Delivery O2 Flow Rate FiO2 05/25/21 20:44 87 110/71 05/25/21 19:34 98.0 20 95 Nasal Cannula 2.0 I & O 05/24/21 05/24/21 05/25/21 15:00 23:00 07:00 Intake Total 720 ml 118 ml 0 ml Balance 720 ml 118 ml 0 ml Labs: Laboratory Tests Test 05/25/21 06:23 White Blood Count 5.7 x10^3/uL (4.0-11.0) Red Blood Count 3.30 x10^6/uL (3.50-5.40) L Hemoglobin 12.5 g/dL (12.0-15.5) Hematocrit 37.2 % (36.0-47.0) Mean Corpuscular Volume 113 fL (79-100) H Mean Corpuscular Hemoglobin 38 pg (25-35) H Mean Corpuscular Hemoglobin Concent 34 g/dL (31-37) Red Cell Distribution Width 13.6 % (11.5-14.5) Platelet Count 270 x10^3/uL (140-400) Sodium Level 139 mmol/L (136-145) Potassium Level 3.5 mmol/L (3.5-5.1) Chloride Level 102 mmol/L (98-107) Carbon Dioxide Level 26 mmol/L (21-32) Anion Gap 11 (6-14) Blood Urea Nitrogen 9 mg/dL (7-20) Creatinine 0.7 mg/dL (0.6-1.0) Estimated GFR (Cockcroft-Gault) 83.0 BUN/Creatinine Ratio 13 (6-20) Glucose Level 140 mg/dL (70-99) H Calcium Level 8.4 mg/dL (8.5-10.1) L Total Bilirubin 0.6 mg/dL (0.2-1.0) Aspartate Amino Transferase (AST) 10 U/L (15-37) L Alanine Aminotransferase (ALT) 18 U/L (14-59) Alkaline Phosphatase 76 U/L (46-116) Total Protein 6.0 g/dL (6.4-8.2) L Albumin 3.1 g/dL (3.4-5.0) L Albumin/Globulin Ratio 1.1 (1.0-1.7) Current Medications: I have reviewed the current psychotropics carefully including drug interactions. Risk benefit ratio favors no change other than as noted in my dictated progress note. Diagnosis: Problems: (1) Impulse control disorder, unspecified (2) Mild cognitive impairment (3) Anxiety disorder, unspecified (4) Bipolar 1 disorder, depressed NITHIN STEVENS MD May 25, 2021 21:27
--- NOTE | 2021-05-25 23:00 | NUR ---
Patient cooperative and calm, med compliant. Denies pain and discomfort when asked. Patient spent the evening in bed watching the TV.
--- NOTE | 2021-05-26 01:16 | PN ---
DATE: 05/25/2021 SUBJECTIVE: The patient is resting almost flat in bed, in no apparent respiratory distress, awake, alert. On questioning her, she denied any complaint. Nursing staff did not voice any concerns today. She had an eventful night. PHYSICAL EXAMINATION: GENERAL: When I examined her, she looked well. No pallor, jaundice, cyanosis. No lymphadenopathy, no thyromegaly, no jugular venous distention. Her lower limb edema has largely subsided. VITAL SIGNS: Her heart rate was 102, blood pressure was 150/84, temperature 97.6, respiratory rate was 18 and oxygen saturation was 95% on 2 liters of oxygen. HEAD, EYES, EARS, NOSE, AND THROAT: Normocephalic, atraumatic. NECK: Supple. HEART: Showed normal first and second heart sounds. No gallop, rub, or murmur. CHEST: Clear to auscultation, no crepitation or rhonchi. ABDOMEN: Distended, soft, and nontender. NEUROLOGIC: She was grossly intact. Her intake was 1380, output was incompletely recorded. LABORATORY DATA: Showed a white cell count 5700, hemoglobin 12, hematocrit 37, MCV 113, and a platelet count 270,000. Her serum sodium was 139, potassium 3.5, chloride 102, bicarbonate 26, anion gap of 11, BUN 9, creatinine 0.7. Estimated GFR was 83 mL per minute. Her glucose 140, calcium was 8.4. Total bilirubin, AST, ALT, alkaline phosphatase were normal. Her total protein is 6, albumin 3.1. ASSESSMENT: 1. Asymptomatic COVID-19 infection. 2. The patient has underlying chronic obstructive pulmonary disease that is oxygen dependent. 3. Bipolar disorder. 4. Crohn's disease with previous surgical resection and chronic diarrhea. 5. Gastroesophageal reflux disease. PLAN: To continue with all her current medications. Continue with oxygen supplementation and bronchodilators. TOMI/NYLA/MANA DR: TOMI/caden TID: [id number]
[2021-05-26 05:39] VITALS: BP 136/80
--- NOTE | 2021-05-26 06:52 | PDOC ---
Exam Note: Napoleon Note: This note is a late entry for 05/24/2021 covers elements not covered in my initial note. Subjective: The patient was reviewed by the nursing staff, reviewed the chart and interim history. Discussed with Aurelia BARR. Overall per nursing report, she is doing reasonably well. She is not putting herself on the floor and is not removing her oxygen and the oxygen sats are remaining stable. No psychotic symptoms, suicidal or homicidal ideation per nursing report. Review of Systems: Per nursing assessment, shortness of breath on O2 supplements. Impaired ambulation. No CV, , eye, ENT system symptoms on review. Mental Status Exam: As assessed by nursing staff, she is alert, oriented to he rself and situation. Speech coherent has some latency. Abstraction fair. Computation impaired. Language function intact. Attention span short. Mood and affect is improved. She has been very positive about the fact that one of her sons have stepped in to be her power of deputy commonwealth's attorney and this would simplify her placement, and she has been very happy with this and expressing it. Laboratory Data: Reviewed. Impression: Bipolar disorder, depressed. Anxiety disorder unspecified. Impulse control disorder unspecified. Plan: Continue current psychotropics. Assessment: Vital Signs/I&O: Vital Signs Date Time Temp Pulse Resp B/P (MAP) Pulse Ox O2 Delivery O2 Flow Rate FiO2 05/26/21 05:39 97.2 87 22 136/80 (98) 91 Nasal Cannula 2.0 I & O 05/25/21 05/25/21 05/26/21 15:00 23:00 07:00 Intake Total 480 ml 480 ml 300 ml Balance 480 ml 480 ml 300 ml Current Medications: Meds: Current Medications Medications (Trade) Dose Ordered Sig/Mya Route PRN Reason Start Time Stop Time Status Last Admin Dose Admin Acetaminophen (Tylenol) 500 mg PRN Q6HRS PRN PO pain or fever 05/21/21 00:15 05/24/21 18:02 Aripiprazole (Abilify) 5 mg DAILY PO 05/21/21 09:00 05/25/21 09:14 Bupropion HCl (Wellbutrin Xl) 300 mg DAILY PO 05/21/21 09:00 05/25/21 09:13 Dicyclomine HCl (Bentyl) 20 mg TID PO 05/21/21 09:00 05/25/21 20:44 Diphenoxylate HCl/ Atropine (Lomotil) 2 tab PRN BID PRN PO DIARRHEA 05/21/21 09:00 05/24/21 13:34 Divalproex Sodium (Depakote Er) 1,000 mg HS PO 05/21/21 21:00 05/25/21 20:44 Duloxetine HCl (Cymbalta) 30 mg BID PO 05/21/21 09:00 05/25/21 20:44 Fluticasone Propionate (Flonase) 2 spray DAILY NS 05/21/21 09:00 05/25/21 09:00 Hydroxyurea (Hydrea) 1,000 mg DAILY PO 05/21/21 09:00 05/25/21 09:13 Lidocaine (Lidoderm) 1 patch DAILY TP 05/21/21 09:00 05/24/21 11:15 Al Hydroxide/Mg Hydroxide (Mylanta Plus Xs) 15 ml PRN AFTMEALHC PRN PO DYSPEPSIA 05/21/21 00:15 Pantoprazole Sodium (Protonix) 40 mg DAILYAC PO 05/21/21 07:30 05/25/21 09:14 Potassium Chloride (Klor-Con) 30 meq DAILY PO 05/21/21 09:00 05/25/21 09:14 Sulfasalazine (Azulfidine) 500 mg TID PO 05/21/21 09:00 05/22/21 10:52 DC 05/22/21 08:17 Albuterol Sulfate (Ventolin Hfa Inhaler) 1 puff PRN Q4HRS PRN INH SOA 05/21/21 00:45 Diltiazem HCl (Cardizem) 60 mg BID PO 05/21/21 09:00 05/25/21 20:44 Albuterol/ Ipratropium (Combivent Respimat 20-100 Mcg) 1 puff RTQID INH 05/21/21 08:00 05/25/21 21:30 Amylase/Lipase/ Protease (Zenpep 10,000) 2 cap TIDBFRMEAL PO 05/21/21 07:30 05/25/21 16:30 Miscellaneous (Lidoderm Patch Removal) 1 ea QHS MC 05/21/21 21:00 05/25/21 20:45 Throat Lozenges (Chloraseptic) 1 spray PRN Q2HR PRN PO SORE THROAT 05/21/21 12:00 05/21/21 12:14 Sulfasalazine (Azulfidine) 1,000 mg TID PO 05/22/21 14:00 05/25/21 20:44 Ondansetron HCl (Zofran Odt) 4 mg PRN Q6HRS PRN PO NAUSEA/VOMITING 05/22/21 14:00 05/24/21 20:17 I have reviewed the current psychotropics carefully including drug interactions. Risk benefit ratio favors no change other than as noted in my dictated progress note. Diagnosis: Problems: (1) Impulse control disorder, unspecified (2) Mild cognitive impairment (3) Anxiety disorder, unspecified (4) Bipolar 1 disorder, depressed NITHIN STEVENS MD May 26, 2021 06:52
[2021-05-26] MEDS: DICYCLOMINE HCL 20 MG TABLET PO SCH ×3 (07:50→20:28)
[2021-05-26] MEDS: LIPASE/PROTEAS/AMYLAS 10/32/42 CAPSULE.DR. PO SCH ×3 (07:50→16:06)
[2021-05-26] MEDS: DULoxetine HCL 30 MG CAPSULE.DR PO SCH ×2 (07:50→20:28)
[2021-05-26] MEDS: LIDOCAINE (700MG/PATCH) PATCH. TP SCH (07:50)
[2021-05-26] MEDS: POTASSIUM CHLORIDE 10 MEQ TABLET.ER. PO SCH (07:51)
[2021-05-26] MEDS: PANTOPRAZOLE 40 MG TABLET. PO SCH (07:51)
[2021-05-26] MEDS: FLUTICASONE 50MCG/NASAL SPRAY 16GM BOTTLE. NS SCH (07:52)
[2021-05-26] MEDS: IPRATROPIUM/ALBUTEROL 20/100mcg/INH INHALER. INH SCH ×4 (07:52→20:28)
[2021-05-26] MEDS: sulfaSALAzine 500 MG TABLET PO SCH ×3 (07:52→20:29)
[2021-05-26] MEDS: buPROPion XL 300 MG TAB.ER.24H. PO SCH (07:53)
[2021-05-26] MEDS: HYDROXYUREA 500 MG CAPSULE PO SCH (07:54)
[2021-05-26] MEDS: ARIPiprazole 5 MG TABLET PO SCH (08:15)
[2021-05-26] MEDS: dilTIAZem HCL 30 MG TABLET PO SCH ×2 (08:15→20:28)
--- NOTE | 2021-05-26 11:30 | NUR ---
SW completed a Zoom meeting with product support representative from [facility]. Pt was very tearful during the assessment as she just learned that her son Cuco agreed to be her DPOA. Pt reported to the [facility] reps that she has been more than ready to go. Pt noted that she would never seriously hurt herself as she is afraid to . But noted that she at times gets depressed and frustrated and makes "stupid comments" instead of being able to really communicate her needs/wishes. [facility] believes that pt would be able to discharge to them without any trouble but would like updates sent over at the beginning of next week to ensure pt continues to do well.
[2021-05-26 14:33] VITALS: BP 123/75
--- NOTE | 2021-05-26 15:41 | NUR ---
Nursing note PT in bed, verbalized no pain or discomfort. Morning assessment done, medications administered per doctors orders. Patient assisted with breakfast and ate 75% of her meal. PT had a diarrhea stool using the bed side commode. PT cleaned and changed. PT reassessed and given her launch try, PT told the nurse she can't eat pork and the dietitian was notified of the PTs request. Fluids offered per PTs request. PT back in bed, be low call light within reach, PT verbalized no other needs, will continue to monitor.
[2021-05-26 19:00] VITALS: BP 130/82
[2021-05-26] MEDS: PATCH REMOVAL. MC SCH (20:29)
[2021-05-26] MEDS: DIVALPROEX ER 500 MG TAB.ER.24H PO SCH (20:29)
--- NOTE | 2021-05-26 21:10 | PDOC ---
Exam Note: Napoleon Note: Please also refer to the separate dictated note~for this date of service dictated separately.~Patient seen individually. Discussed the patient with Nursing staff reviewed the chart.~Reviewed interim history and current functioning. Reviewed vital signs,~Labs/ Radiology~and current medications noted below. Continue current treatment with the changes noted in the dictated addendum note Assessment: Vital Signs/I&O: Vital Signs Date Time Temp Pulse Resp B/P (MAP) Pulse Ox O2 Delivery O2 Flow Rate FiO2 05/26/21 20:28 88 130/82 05/26/21 19:00 97.4 20 94 Nasal Cannula 2.0 I & O 05/25/21 05/25/21 05/26/21 15:00 23:00 07:00 Intake Total 480 ml 480 ml 300 ml Balance 480 ml 480 ml 300 ml Current Medications: Meds: Current Medications Medications (Trade) Dose Ordered Sig/Mya Route PRN Reason Start Time Stop Time Status Last Admin Dose Admin Acetaminophen (Tylenol) 500 mg PRN Q6HRS PRN PO pain or fever 05/21/21 00:15 05/24/21 18:02 Aripiprazole (Abilify) 5 mg DAILY PO 05/21/21 09:00 05/26/21 08:15 Bupropion HCl (Wellbutrin Xl) 300 mg DAILY PO 05/21/21 09:00 05/26/21 07:53 Dicyclomine HCl (Bentyl) 20 mg TID PO 05/21/21 09:00 05/26/21 20:28 Diphenoxylate HCl/ Atropine (Lomotil) 2 tab PRN BID PRN PO DIARRHEA 05/21/21 09:00 05/24/21 13:34 Divalproex Sodium (Depakote Er) 1,000 mg HS PO 05/21/21 21:00 05/26/21 20:29 Duloxetine HCl (Cymbalta) 30 mg BID PO 05/21/21 09:00 05/26/21 20:28 Fluticasone Propionate (Flonase) 2 spray DAILY NS 05/21/21 09:00 05/26/21 07:52 Hydroxyurea (Hydrea) 1,000 mg DAILY PO 05/21/21 09:00 05/26/21 07:54 Lidocaine (Lidoderm) 1 patch DAILY TP 05/21/21 09:00 05/26/21 07:50 Al Hydroxide/Mg Hydroxide (Mylanta Plus Xs) 15 ml PRN AFTMEALHC PRN PO DYSPEPSIA 05/21/21 00:15 Pantoprazole Sodium (Protonix) 40 mg DAILYAC PO 05/21/21 07:30 05/26/21 07:51 Potassium Chloride (Klor-Con) 30 meq DAILY PO 05/21/21 09:00 05/26/21 07:51 Sulfasalazine (Azulfidine) 500 mg TID PO 05/21/21 09:00 05/22/21 10:52 DC 05/22/21 08:17 Albuterol Sulfate (Ventolin Hfa Inhaler) 1 puff PRN Q4HRS PRN INH SOA 05/21/21 00:45 Diltiazem HCl (Cardizem) 60 mg BID PO 05/21/21 09:00 05/26/21 20:28 Albuterol/ Ipratropium (Combivent Respimat 20-100 Mcg) 1 puff RTQID INH 05/21/21 08:00 05/26/21 20:28 Amylase/Lipase/ Protease (Zenpep 10,000) 2 cap TIDBFRMEAL PO 05/21/21 07:30 05/26/21 16:06 Miscellaneous (Lidoderm Patch Removal) 1 ea QHS MC 05/21/21 21:00 05/26/21 20:29 Throat Lozenges (Chloraseptic) 1 spray PRN Q2HR PRN PO SORE THROAT 05/21/21 12:00 05/21/21 12:14 Sulfasalazine (Azulfidine) 1,000 mg TID PO 05/22/21 14:00 05/26/21 20:29 Ondansetron HCl (Zofran Odt) 4 mg PRN Q6HRS PRN PO NAUSEA/VOMITING 05/22/21 14:00 05/24/21 20:17 I have reviewed the current psychotropics carefully including drug interactions. Risk benefit ratio favors no change other than as noted in my dictated progress note. Diagnosis: Problems: (1) Impulse control disorder, unspecified (2) Mild cognitive impairment (3) Anxiety disorder, unspecified (4) Bipolar 1 disorder, depressed NITHIN STEVENS MD May 26, 2021 21:10
--- NOTE | 2021-05-26 22:06 | PN ---
DATE: 05/26/2021 SUBJECTIVE: The patient is resting, slightly propped up in bed, in no apparent respiratory distress. She is sleepy, but arousable. On questioning her, she denied any complaint except that she has continued to feel weak. Nursing staff did not voice any concerns that she had an eventful night. PHYSICAL EXAMINATION: GENERAL: When I examined her, she was pale, somewhat cachectic, but no jaundice, cyanosis or thyromegaly. No jugular venous distention. No limb edema. VITAL SIGNS: Her heart rate was 87, blood pressure is 136/80, temperature was 97.2, respiratory rate 22, and oxygen saturation was 91% on 2 liters of oxygen. HEAD, EYES, EARS, NOSE, AND THROAT: Normocephalic, atraumatic. NECK: Supple. HEART: Normal first and second heart sounds, no gallop or murmur. CHEST: Clear to auscultation, no crepitation or rhonchi. ABDOMEN: Distended, soft, nontender. NEUROLOGIC: She was demented, but without any obvious lateralizing sign. Her intake was 800, no output was recorded. LABORATORY DATA: As of this morning, her white cell count was 5700, hemoglobin 12.5, hematocrit 37, MCV 113, platelet count 270,000. Serum sodium was 139, potassium 3.5, chloride 102, bicarbonate 26, anion gap of 11, BUN is 9, creatinine 0.7. Estimated GFR was 83. ASSESSMENT: 1. Asymptomatic COVID-19 infection. 2. The patient has underlying chronic obstructive pulmonary disease that is oxygen dependent. 3. Bipolar disorder. 4. Crohn's disease with previous surgical resection with chronic diarrhea. 5. Gastroesophageal reflux disease. Continue with all her psychotropic medications. Continue oxygen supplementation, bronchodilators. AMM/EKT DR: TOMI/caden TID: [id number]
[2021-05-27 06:19] VITALS: BP 122/75
--- NOTE | 2021-05-27 07:22 | PDOC ---
Exam Note: Napoleon Note: This note is a late entry for 05/25/2021 covers elements not covered in my initial note. Subjective: The patient was reviewed by the nursing staff, reviewed the chart and interim history. Overall per nursing report, she is fairly cooperative. Review of Systems: Per nursing. No CV, , eye, ENT system symptoms on review. Gait unsteady in wheelchair. Shortness of breath on 2 L oxygen. Mental Status Exam: The patient is reasonably oriented. Speech coherent. Abstraction fair. Computation impaired. Language function intact. Attention span short. Mood and affect is somewhat withdrawn. Laboratory Data: Reviewed. Impression: Bipolar disorder, depressed. Anxiety disorder unspecified. Impulse control disorder unspecified. Plan: No change in her psychotropics for now. Assessment: Vital Signs/I&O: Vital Signs Date Time Temp Pulse Resp B/P (MAP) Pulse Ox O2 Delivery O2 Flow Rate FiO2 05/27/21 06:19 98.0 90 20 122/75 (91) 93 Nasal Cannula 2.0 I & O 05/26/21 05/26/21 05/27/21 14:59 22:59 06:59 Intake Total 780 ml 720 ml Balance 780 ml 720 ml Current Medications: Meds: Current Medications Medications (Trade) Dose Ordered Sig/Mya Route PRN Reason Start Time Stop Time Status Last Admin Dose Admin Acetaminophen (Tylenol) 500 mg PRN Q6HRS PRN PO pain or fever 05/21/21 00:15 05/24/21 18:02 Aripiprazole (Abilify) 5 mg DAILY PO 05/21/21 09:00 05/26/21 08:15 Bupropion HCl (Wellbutrin Xl) 300 mg DAILY PO 05/21/21 09:00 05/26/21 07:53 Dicyclomine HCl (Bentyl) 20 mg TID PO 05/21/21 09:00 05/26/21 20:28 Diphenoxylate HCl/ Atropine (Lomotil) 2 tab PRN BID PRN PO DIARRHEA 05/21/21 09:00 05/24/21 13:34 Divalproex Sodium (Depakote Er) 1,000 mg HS PO 05/21/21 21:00 05/26/21 20:29 Duloxetine HCl (Cymbalta) 30 mg BID PO 05/21/21 09:00 05/26/21 20:28 Fluticasone Propionate (Flonase) 2 spray DAILY NS 05/21/21 09:00 05/26/21 07:52 Hydroxyurea (Hydrea) 1,000 mg DAILY PO 05/21/21 09:00 05/26/21 07:54 Lidocaine (Lidoderm) 1 patch DAILY TP 05/21/21 09:00 05/26/21 07:50 Al Hydroxide/Mg Hydroxide (Mylanta Plus Xs) 15 ml PRN AFTMEALHC PRN PO DYSPEPSIA 05/21/21 00:15 Pantoprazole Sodium (Protonix) 40 mg DAILYAC PO 05/21/21 07:30 05/26/21 07:51 Potassium Chloride (Klor-Con) 30 meq DAILY PO 05/21/21 09:00 05/26/21 07:51 Sulfasalazine (Azulfidine) 500 mg TID PO 05/21/21 09:00 05/22/21 10:52 DC 05/22/21 08:17 Albuterol Sulfate (Ventolin Hfa Inhaler) 1 puff PRN Q4HRS PRN INH SOA 05/21/21 00:45 Diltiazem HCl (Cardizem) 60 mg BID PO 05/21/21 09:00 05/26/21 20:28 Albuterol/ Ipratropium (Combivent Respimat 20-100 Mcg) 1 puff RTQID INH 05/21/21 08:00 05/26/21 20:28 Amylase/Lipase/ Protease (Zenpep 10,000) 2 cap TIDBFRMEAL PO 05/21/21 07:30 05/26/21 16:06 Miscellaneous (Lidoderm Patch Removal) 1 ea QHS MC 05/21/21 21:00 05/26/21 20:29 Throat Lozenges (Chloraseptic) 1 spray PRN Q2HR PRN PO SORE THROAT 05/21/21 12:00 05/21/21 12:14 Sulfasalazine (Azulfidine) 1,000 mg TID PO 05/22/21 14:00 05/26/21 20:29 Ondansetron HCl (Zofran Odt) 4 mg PRN Q6HRS PRN PO NAUSEA/VOMITING 05/22/21 14:00 05/24/21 20:17 I have reviewed the current psychotropics carefully including drug interactions. Risk benefit ratio favors no change other than as noted in my dictated progress note. Diagnosis: Problems: (1) Impulse control disorder, unspecified (2) Mild cognitive impairment (3) Anxiety disorder, unspecified (4) Bipolar 1 disorder, depressed NITHIN STEVENS MD May 27, 2021 07:22
[2021-05-27] MEDS: LIDOCAINE (700MG/PATCH) PATCH. TP SCH (07:56)
[2021-05-27] MEDS: HYDROXYUREA 500 MG CAPSULE PO SCH (07:56)
[2021-05-27] MEDS: LIPASE/PROTEAS/AMYLAS 10/32/42 CAPSULE.DR. PO SCH ×3 (07:57→16:28)
[2021-05-27] MEDS: POTASSIUM CHLORIDE 10 MEQ TABLET.ER. PO SCH (07:57)
[2021-05-27] MEDS: dilTIAZem HCL 30 MG TABLET PO SCH ×2 (07:57→23:16)
[2021-05-27] MEDS: DULoxetine HCL 30 MG CAPSULE.DR PO SCH ×2 (07:58→23:17)
[2021-05-27] MEDS: PANTOPRAZOLE 40 MG TABLET. PO SCH (07:58)
[2021-05-27] MEDS: DICYCLOMINE HCL 20 MG TABLET PO SCH ×3 (07:58→23:16)
[2021-05-27] MEDS: sulfaSALAzine 500 MG TABLET PO SCH ×3 (07:58→23:16)
[2021-05-27] MEDS: ARIPiprazole 5 MG TABLET PO SCH (07:58)
[2021-05-27] MEDS: buPROPion XL 300 MG TAB.ER.24H. PO SCH (07:59)
[2021-05-27] MEDS: IPRATROPIUM/ALBUTEROL 20/100mcg/INH INHALER. INH SCH ×4 (07:59→20:00)
[2021-05-27] MEDS: FLUTICASONE 50MCG/NASAL SPRAY 16GM BOTTLE. NS SCH (07:59)
--- NOTE | 2021-05-27 08:02 | PDOC ---
Exam Note: Napoleon Note: This note is a late entry for 05/26/2021 covers elements not covered in my initial note. Subjective: The patient was reviewed by the nursing staff in the evening of 05/26/2021, reviewed the chart and interim history. Overall per nursing report, she is doing better. She has not expressed any suicidal ideation and has not been removing her oxygen. Review of Systems: Per nursing assessment, shortness of breath on O2 supplements. Impaired ambulation. No CV, , eye, ENT system symptoms on review. Mental Status Exam: Per nursing report, the patient is reasonably oriented. Speech coherent. Abstraction fair. Computation impaired. Language function intact. Attention span short. Mood and affect is somewhat withdrawn. Laboratory Data: Reviewed. Impression: Bipolar disorder, depressed. Anxiety disorder unspecified. Impulse control disorder unspecified. Plan: Continue current psychotropics. Assessment: Vital Signs/I&O: Vital Signs Date Time Temp Pulse Resp B/P (MAP) Pulse Ox O2 Delivery O2 Flow Rate FiO2 05/27/21 07:57 90 122/75 05/27/21 06:19 98.0 20 93 Nasal Cannula 2.0 I & O 05/26/21 05/26/21 05/27/21 15:00 23:00 07:00 Intake Total 780 ml 720 ml Balance 780 ml 720 ml Current Medications: Meds: Current Medications Medications (Trade) Dose Ordered Sig/Mya Route PRN Reason Start Time Stop Time Status Last Admin Dose Admin Acetaminophen (Tylenol) 500 mg PRN Q6HRS PRN PO pain or fever 05/21/21 00:15 05/24/21 18:02 Aripiprazole (Abilify) 5 mg DAILY PO 05/21/21 09:00 05/27/21 07:58 Bupropion HCl (Wellbutrin Xl) 300 mg DAILY PO 05/21/21 09:00 05/27/21 07:59 Dicyclomine HCl (Bentyl) 20 mg TID PO 05/21/21 09:00 05/27/21 07:58 Diphenoxylate HCl/ Atropine (Lomotil) 2 tab PRN BID PRN PO DIARRHEA 05/21/21 09:00 05/24/21 13:34 Divalproex Sodium (Depakote Er) 1,000 mg HS PO 05/21/21 21:00 05/26/21 20:29 Duloxetine HCl (Cymbalta) 30 mg BID PO 05/21/21 09:00 05/27/21 07:58 Fluticasone Propionate (Flonase) 2 spray DAILY NS 05/21/21 09:00 05/27/21 07:59 Hydroxyurea (Hydrea) 1,000 mg DAILY PO 05/21/21 09:00 05/27/21 07:56 Lidocaine (Lidoderm) 1 patch DAILY TP 05/21/21 09:00 05/27/21 07:56 Al Hydroxide/Mg Hydroxide (Mylanta Plus Xs) 15 ml PRN AFTMEALHC PRN PO DYSPEPSIA 05/21/21 00:15 Pantoprazole Sodium (Protonix) 40 mg DAILYAC PO 05/21/21 07:30 05/27/21 07:58 Potassium Chloride (Klor-Con) 30 meq DAILY PO 05/21/21 09:00 05/27/21 07:57 Sulfasalazine (Azulfidine) 500 mg TID PO 05/21/21 09:00 05/22/21 10:52 DC 05/22/21 08:17 Albuterol Sulfate (Ventolin Hfa Inhaler) 1 puff PRN Q4HRS PRN INH SOA 05/21/21 00:45 Diltiazem HCl (Cardizem) 60 mg BID PO 05/21/21 09:00 05/27/21 07:57 Albuterol/ Ipratropium (Combivent Respimat 20-100 Mcg) 1 puff RTQID INH 05/21/21 08:00 05/27/21 07:59 Amylase/Lipase/ Protease (Zenpep 10,000) 2 cap TIDBFRMEAL PO 05/21/21 07:30 05/27/21 07:57 Miscellaneous (Lidoderm Patch Removal) 1 ea QHS MC 05/21/21 21:00 05/26/21 20:29 Throat Lozenges (Chloraseptic) 1 spray PRN Q2HR PRN PO SORE THROAT 05/21/21 12:00 05/21/21 12:14 Sulfasalazine (Azulfidine) 1,000 mg TID PO 05/22/21 14:00 05/27/21 07:58 Ondansetron HCl (Zofran Odt) 4 mg PRN Q6HRS PRN PO NAUSEA/VOMITING 05/22/21 14:00 05/24/21 20:17 I have reviewed the current psychotropics carefully including drug interactions. Risk benefit ratio favors no change other than as noted in my dictated progress note. Diagnosis: Problems: (1) Impulse control disorder, unspecified (2) Mild cognitive impairment (3) Anxiety disorder, unspecified (4) Bipolar 1 disorder, depressed NITHIN STEVENS MD May 27, 2021 08:02
[2021-05-27] MEDS: DIPHENOXYLATE/ATROPINE TABLET. PO PRN (15:04)
[2021-05-27 15:23] VITALS: BP 124/71
--- NOTE | 2021-05-27 20:04 | PN ---
DATE: 05/27/2021 SUBJECTIVE: The patient is resting, slightly propped up in bed, in no apparent distress. On questioning her, she stated that she has diarrhea every time she eats. She is on a pureed diet and she has only drank her Ensure. Apparently, the loperamide is not helping her diarrhea. She continued, however, to be asymptomatic from the coronavirus point of view. There is no fever, no cough or phlegm. No chills, rigors. OBJECTIVE: GENERAL: On examining her, she looked well and was clearly in no apparent respiratory distress. VITAL SIGNS: Her heart rate was 90, blood pressure is 122/75, temperature was 98, respiratory rate 20, and oxygen saturation was 93% on 2 liters of oxygen by nasal cannula. HEAD, EYES, EARS, NOSE, AND THROAT: Normocephalic, atraumatic. NECK: Supple. HEART: Showed normal first and second heart sounds. No gallop, rub or murmur. CHEST: Clear to auscultation. No crepitation or rhonchi. ABDOMEN: Scaphoid, soft, nontender. NEUROLOGIC: She was grossly intact. Her intake over the last 24 hours was 1260, no output was recorded. LABORATORY DATA: Her most recent white cell count was 5700, hemoglobin 12.5, hematocrit 37, MCV 113, and platelet count of 270,000. Her chemistry showed a serum sodium 139, potassium 3.5, chloride 102, bicarbonate 26, anion gap of 11, BUN 9, creatinine 0.7. Estimated GFR was 83 mL per minute. Her glucose 140, calcium was 8.4. Total bilirubin, AST, ALT, alkaline phosphatase are normal. Her total protein 6, albumin was 3.1. ASSESSMENT: 1. Asymptomatic COVID-19 infection. 2. The patient has underlying chronic obstructive pulmonary disease that is oxygen dependent. 3. Bipolar disorder. 4. Crohn's disease or previous surgical resection and chronic diarrhea. 5. Gastroesophageal reflux disease. PLAN: Obviously to continue all her psychotropic medication. Continue with sulfasalazine for her Crohn's disease. She is already on Lomotil 2 mg 2 tablets twice a day. I will add bile acid sequestrants to assist with her diarrhea. TOMI/DOMO DR: Bill TID: [id number]
[2021-05-27 20:07] VITALS: BP 125/77
[2021-05-27] MEDS: PATCH REMOVAL. MC SCH (21:00)
--- NOTE | 2021-05-27 21:24 | PDOC ---
Exam Note: Napoleon Note: Please also refer to the separate dictated note~for this date of service dictated separately.~Patient seen individually. Discussed the patient with Nursing staff reviewed the chart.~Reviewed interim history and current functioning. Reviewed vital signs,~Labs/ Radiology~and current medications noted below. Continue current treatment with the changes noted in the dictated addendum note Assessment: Vital Signs/I&O: Vital Signs Date Time Temp Pulse Resp B/P (MAP) Pulse Ox O2 Delivery O2 Flow Rate FiO2 05/27/21 20:07 97.5 94 18 125/77 (93) 94 Nasal Cannula 2.0 I & O 05/26/21 05/26/21 05/27/21 14:59 22:59 06:59 Intake Total 780 ml 720 ml Balance 780 ml 720 ml Current Medications: Meds: Current Medications Medications (Trade) Dose Ordered Sig/Mya Route PRN Reason Start Time Stop Time Status Last Admin Dose Admin Acetaminophen (Tylenol) 500 mg PRN Q6HRS PRN PO pain or fever 05/21/21 00:15 05/24/21 18:02 Aripiprazole (Abilify) 5 mg DAILY PO 05/21/21 09:00 05/27/21 07:58 Bupropion HCl (Wellbutrin Xl) 300 mg DAILY PO 05/21/21 09:00 05/27/21 07:59 Dicyclomine HCl (Bentyl) 20 mg TID PO 05/21/21 09:00 05/27/21 14:00 Diphenoxylate HCl/ Atropine (Lomotil) 2 tab PRN BID PRN PO DIARRHEA 05/21/21 09:00 05/27/21 14:25 DC 05/24/21 13:34 Divalproex Sodium (Depakote Er) 1,000 mg HS PO 05/21/21 21:00 05/26/21 20:29 Duloxetine HCl (Cymbalta) 30 mg BID PO 05/21/21 09:00 05/27/21 07:58 Fluticasone Propionate (Flonase) 2 spray DAILY NS 05/21/21 09:00 05/27/21 07:59 Hydroxyurea (Hydrea) 1,000 mg DAILY PO 05/21/21 09:00 05/27/21 07:56 Lidocaine (Lidoderm) 1 patch DAILY TP 05/21/21 09:00 05/27/21 07:56 Al Hydroxide/Mg Hydroxide (Mylanta Plus Xs) 15 ml PRN AFTMEALHC PRN PO DYSPEPSIA 05/21/21 00:15 Pantoprazole Sodium (Protonix) 40 mg DAILYAC PO 05/21/21 07:30 05/27/21 07:58 Potassium Chloride (Klor-Con) 30 meq DAILY PO 05/21/21 09:00 05/27/21 07:57 Sulfasalazine (Azulfidine) 500 mg TID PO 05/21/21 09:00 05/22/21 10:52 DC 05/22/21 08:17 Albuterol Sulfate (Ventolin Hfa Inhaler) 1 puff PRN Q4HRS PRN INH SOA 05/21/21 00:45 Diltiazem HCl (Cardizem) 60 mg BID PO 05/21/21 09:00 05/27/21 07:57 Albuterol/ Ipratropium (Combivent Respimat 20-100 Mcg) 1 puff RTQID INH 05/21/21 08:00 05/27/21 16:00 Amylase/Lipase/ Protease (Zenpep 10,000) 2 cap TIDBFRMEAL PO 05/21/21 07:30 05/27/21 16:28 Miscellaneous (Lidoderm Patch Removal) 1 ea QHS MC 05/21/21 21:00 05/26/21 20:29 Throat Lozenges (Chloraseptic) 1 spray PRN Q2HR PRN PO SORE THROAT 05/21/21 12:00 05/21/21 12:14 Sulfasalazine (Azulfidine) 1,000 mg TID PO 05/22/21 14:00 05/27/21 14:00 Ondansetron HCl (Zofran Odt) 4 mg PRN Q6HRS PRN PO NAUSEA/VOMITING 05/22/21 14:00 05/24/21 20:17 Diphenoxylate HCl/ Atropine (Lomotil) 2 tab PRN QID PRN PO DIARRHEA 05/27/21 14:30 05/27/21 15:04 Nystatin (Nystop) 1 debra BID TP 05/27/21 21:00 Current Medications Medications (Trade) Dose Ordered Sig/Mya Route PRN Reason Start Time Stop Time Status Last Admin Dose Admin Diphenoxylate HCl/ Atropine (Lomotil) 2 tab PRN QID PRN PO DIARRHEA 05/27/21 14:30 05/27/21 15:04 I have reviewed the current psychotropics carefully including drug interactions. Risk benefit ratio favors no change other than as noted in my dictated progress note. Diagnosis: Problems: (1) Impulse control disorder, unspecified (2) Mild cognitive impairment (3) Anxiety disorder, unspecified (4) Bipolar 1 disorder, depressed NITHIN STEVENS MD May 27, 2021 21:24
[2021-05-27] MEDS: DIVALPROEX ER 500 MG TAB.ER.24H PO SCH (23:16)
[2021-05-27] MEDS: NYSTATIN TOPICAL POWDER 15GM BOTTLE. TP SCH (23:17)
[2021-05-28 06:27] VITALS: BP 127/78
[2021-05-28] MEDS: LIDOCAINE (700MG/PATCH) PATCH. TP SCH (07:41)
[2021-05-28] MEDS: sulfaSALAzine 500 MG TABLET PO SCH ×3 (07:42→21:26)
[2021-05-28] MEDS: ARIPiprazole 5 MG TABLET PO SCH (07:42)
[2021-05-28] MEDS: PANTOPRAZOLE 40 MG TABLET. PO SCH (07:43)
[2021-05-28] MEDS: DULoxetine HCL 30 MG CAPSULE.DR PO SCH ×2 (07:43→21:26)
[2021-05-28] MEDS: POTASSIUM CHLORIDE 10 MEQ TABLET.ER. PO SCH (07:43)
[2021-05-28] MEDS: HYDROXYUREA 500 MG CAPSULE PO SCH (07:43)
[2021-05-28] MEDS: DICYCLOMINE HCL 20 MG TABLET PO SCH ×3 (07:43→21:26)
[2021-05-28] MEDS: dilTIAZem HCL 30 MG TABLET PO SCH ×2 (07:44→21:25)
[2021-05-28] MEDS: LIPASE/PROTEAS/AMYLAS 10/32/42 CAPSULE.DR. PO SCH ×3 (07:49→17:01)
[2021-05-28] MEDS: buPROPion XL 300 MG TAB.ER.24H. PO SCH (07:50)
[2021-05-28] MEDS: IPRATROPIUM/ALBUTEROL 20/100mcg/INH INHALER. INH SCH ×4 (08:00→20:00)
[2021-05-28] MEDS: NYSTATIN TOPICAL POWDER 15GM BOTTLE. TP SCH ×2 (08:24→21:00)
[2021-05-28] MEDS: FLUTICASONE 50MCG/NASAL SPRAY 16GM BOTTLE. NS SCH (08:24)
[2021-05-28] MEDS: DIPHENOXYLATE/ATROPINE TABLET. PO PRN ×2 (12:34→21:26)
[2021-05-28 14:30] VITALS: BP 117/75
[2021-05-28 15:10] LABS: HEMATOCRIT 38.5 % (36.0-47.0); HEMOGLOBIN 12.9 g/dL (12.0-15.5); RED BLOOD COUNT 3.38 x10^6/uL (3.50-5.40); RED CELL DISTRIBUTION WIDTH 13.7 % (11.5-14.5); WHITE BLOOD COUNT 6.9 x10^3/uL (4.0-11.0)
[2021-05-28 15:34] LABS: ALBUMIN/GLOBULIN RATIO 0.9 (1.0-1.7); CALCIUM 8.5 mg/dL (8.5-10.1); CREATININE 0.7 mg/dL (0.6-1.0); POTASSIUM 3.3 mmol/L (3.5-5.1); TOTAL BILIRUBIN 0.5 mg/dL (0.2-1.0); TOTAL PROTEIN 6.3 g/dL (6.4-8.2)
--- NOTE | 2021-05-28 15:47 | NUR ---
Nursing note: Patient cooperative with assessment and medications taken whole. She is A/O X4, calm & friendly. She c/o discomfort in her abd, back, & bottom, scheduled pain patch and bottom cream applied. Her bottom is intack, but reddened. She has had 3 loose stools, PRN given. She walks independently, can be unsteady at times. She is currently watching TV, call light in reach. Will continue to monitor.
[2021-05-28 19:20] VITALS: BP 134/88
[2021-05-28] MEDS: PATCH REMOVAL. MC SCH (21:00)
[2021-05-28] MEDS: DIVALPROEX ER 500 MG TAB.ER.24H PO SCH (21:25)
[2021-05-28] MEDS: COLESTIPOL HCL 1 GM TABLET. PO SCH ×2 (21:26→22:00)
--- NOTE | 2021-05-28 21:32 | PDOC ---
Exam Note: Napoleon Note: Please also refer to the separate dictated note~for this date of service dictated separately.~Patient seen individually. Discussed the patient with Nursing staff reviewed the chart.~Reviewed interim history and current functioning. Reviewed vital signs,~Labs/ Radiology~and current medications noted below. Continue current treatment with the changes noted in the dictated addendum note Assessment: Vital Signs/I&O: Vital Signs Date Time Temp Pulse Resp B/P (MAP) Pulse Ox O2 Delivery O2 Flow Rate FiO2 05/28/21 21:25 98 134/88 05/28/21 19:20 98.4 20 94 Nasal Cannula 2.0 I & O 05/27/21 05/27/21 05/28/21 15:00 23:00 07:00 Intake Total 478 ml 480 ml 50 ml Balance 478 ml 480 ml 50 ml Labs: Laboratory Tests Test 05/28/21 14:55 White Blood Count 6.9 x10^3/uL (4.0-11.0) Red Blood Count 3.38 x10^6/uL (3.50-5.40) L Hemoglobin 12.9 g/dL (12.0-15.5) Hematocrit 38.5 % (36.0-47.0) Mean Corpuscular Volume 114 fL (79-100) H Mean Corpuscular Hemoglobin 38 pg (25-35) H Mean Corpuscular Hemoglobin Concent 34 g/dL (31-37) Red Cell Distribution Width 13.7 % (11.5-14.5) Platelet Count 287 x10^3/uL (140-400) Sodium Level 138 mmol/L (136-145) Potassium Level 3.3 mmol/L (3.5-5.1) L Chloride Level 102 mmol/L (98-107) Carbon Dioxide Level 24 mmol/L (21-32) Anion Gap 12 (6-14) Blood Urea Nitrogen 13 mg/dL (7-20) Creatinine 0.7 mg/dL (0.6-1.0) Estimated GFR (Cockcroft-Gault) 83.0 BUN/Creatinine Ratio 19 (6-20) Glucose Level 140 mg/dL (70-99) H Calcium Level 8.5 mg/dL (8.5-10.1) Total Bilirubin 0.5 mg/dL (0.2-1.0) Aspartate Amino Transferase (AST) 12 U/L (15-37) L Alanine Aminotransferase (ALT) 13 U/L (14-59) L Alkaline Phosphatase 70 U/L (46-116) Total Protein 6.3 g/dL (6.4-8.2) L Albumin 3.0 g/dL (3.4-5.0) L Albumin/Globulin Ratio 0.9 (1.0-1.7) L Current Medications: Meds: Laboratory Tests Test 05/28/21 14:55 White Blood Count 6.9 x10^3/uL Red Blood Count 3.38 x10^6/uL Hemoglobin 12.9 g/dL Hematocrit 38.5 % Mean Corpuscular Volume 114 fL Mean Corpuscular Hemoglobin 38 pg Mean Corpuscular Hemoglobin Concent 34 g/dL Red Cell Distribution Width 13.7 % Platelet Count 287 x10^3/uL Sodium Level 138 mmol/L Potassium Level 3.3 mmol/L Chloride Level 102 mmol/L Carbon Dioxide Level 24 mmol/L Anion Gap 12 Blood Urea Nitrogen 13 mg/dL Creatinine 0.7 mg/dL Estimated GFR (Cockcroft-Gault) 83.0 BUN/Creatinine Ratio 19 Glucose Level 140 mg/dL Calcium Level 8.5 mg/dL Total Bilirubin 0.5 mg/dL Aspartate Amino Transf (AST/SGOT) 12 U/L Alanine Aminotransferase (ALT/SGPT) 13 U/L Alkaline Phosphatase 70 U/L Total Protein 6.3 g/dL Albumin 3.0 g/dL Albumin/Globulin Ratio 0.9 Current Medications Medications (Trade) Dose Ordered Sig/Mya Route PRN Reason Start Time Stop Time Status Last Admin Dose Admin Acetaminophen (Tylenol) 500 mg PRN Q6HRS PRN PO pain or fever 05/21/21 00:15 05/24/21 18:02 Aripiprazole (Abilify) 5 mg DAILY PO 05/21/21 09:00 05/28/21 07:42 Bupropion HCl (Wellbutrin Xl) 300 mg DAILY PO 05/21/21 09:00 05/28/21 07:50 Dicyclomine HCl (Bentyl) 20 mg TID PO 05/21/21 09:00 05/28/21 21:26 Diphenoxylate HCl/ Atropine (Lomotil) 2 tab PRN BID PRN PO DIARRHEA 05/21/21 09:00 05/27/21 14:25 DC 05/24/21 13:34 Divalproex Sodium (Depakote Er) 1,000 mg HS PO 05/21/21 21:00 05/28/21 21:25 Duloxetine HCl (Cymbalta) 30 mg BID PO 05/21/21 09:00 05/28/21 21:26 Fluticasone Propionate (Flonase) 2 spray DAILY NS 05/21/21 09:00 05/28/21 08:24 Hydroxyurea (Hydrea) 1,000 mg DAILY PO 05/21/21 09:00 05/28/21 07:43 Lidocaine (Lidoderm) 1 patch DAILY TP 05/21/21 09:00 05/28/21 07:41 Al Hydroxide/Mg Hydroxide (Mylanta Plus Xs) 15 ml PRN AFTMEALHC PRN PO DYSPEPSIA 05/21/21 00:15 Pantoprazole Sodium (Protonix) 40 mg DAILYAC PO 05/21/21 07:30 05/28/21 07:43 Potassium Chloride (Klor-Con) 30 meq DAILY PO 05/21/21 09:00 05/28/21 07:43 Sulfasalazine (Azulfidine) 500 mg TID PO 05/21/21 09:00 05/22/21 10:52 DC 05/22/21 08:17 Albuterol Sulfate (Ventolin Hfa Inhaler) 1 puff PRN Q4HRS PRN INH SOA 05/21/21 00:45 Diltiazem HCl (Cardizem) 60 mg BID PO 05/21/21 09:00 05/28/21 21:25 Albuterol/ Ipratropium (Combivent Respimat 20-100 Mcg) 1 puff RTQID INH 05/21/21 08:00 05/28/21 20:00 Amylase/Lipase/ Protease (Zenpep 10,000) 2 cap TIDBFRMEAL PO 05/21/21 07:30 05/28/21 17:01 Miscellaneous (Lidoderm Patch Removal) 1 ea QHS MC 05/21/21 21:00 05/28/21 21:00 Throat Lozenges (Chloraseptic) 1 spray PRN Q2HR PRN PO SORE THROAT 05/21/21 12:00 05/21/21 12:14 Sulfasalazine (Azulfidine) 1,000 mg TID PO 05/22/21 14:00 05/28/21 21:26 Ondansetron HCl (Zofran Odt) 4 mg PRN Q6HRS PRN PO NAUSEA/VOMITING 05/22/21 14:00 05/24/21 20:17 Diphenoxylate HCl/ Atropine (Lomotil) 2 tab PRN QID PRN PO DIARRHEA 05/27/21 14:30 05/28/21 21:26 Nystatin (Nystop) 1 debra BID TP 05/27/21 21:00 05/28/21 21:00 Colestipol HCl (Colestid) 1 gm BID@ PO 05/28/21 22:00 05/28/21 21:26 Current Medications Medications (Trade) Dose Ordered Sig/Mya Route PRN Reason Start Time Stop Time Status Last Admin Dose Admin Colestipol HCl (Colestid) 1 gm BID@ PO 05/28/21 22:00 05/28/21 21:26 I have reviewed the current psychotropics carefully including drug interactions. Risk benefit ratio favors no change other than as noted in my dictated progress note. Diagnosis: Problems: (1) Impulse control disorder, unspecified (2) Mild cognitive impairment (3) Anxiety disorder, unspecified (4) Bipolar 1 disorder, depressed NITHIN STEVENS MD May 28, 2021 21:32
--- NOTE | 2021-05-28 21:38 | PN ---
DATE: 05/28/2021 SUBJECTIVE: The patient is resting, slightly propped up in bed, no apparent distress. She is awake, alert. On questioning her, she continued to have loose bowel movements. She had in fact 2 loose bowel movements today. Denied any abdominal pain. PHYSICAL EXAMINATION: GENERAL: When I examined her, she was somewhat pale, cachectic, but not jaundiced or cyanosed. No lymphadenopathy, no thyromegaly, no jugular venous distention. No limb edema. VITAL SIGNS: Her heart rate was 85, blood pressure was 117/75, temperature was 98, respiratory rate was 18 and oxygen saturation was 98% on 2 liters of oxygen by nasal cannula. HEAD, EYES, EARS, NOSE AND THROAT: Normocephalic, atraumatic. NECK: Supple. HEART: Normal first and second heart sounds. No gallop or murmur. CHEST: Clear to auscultation. No crepitation or rhonchi. ABDOMEN: Scaphoid, soft, nontender. NEUROLOGIC: She is grossly intact. Her intake was 1500, no output was recorded. LABORATORY DATA: As of this morning, her white cell count was 6900, hemoglobin 13, hematocrit 39, MCV 114 and platelet count 287,000. Her chemistry showed a serum sodium 138, potassium 3.3, chloride 102, bicarbonate 24, anion gap of 12, BUN 13, creatinine 0.7. Estimated GFR was 83 mL/minute. Her glucose was 140, calcium was 8.5. Total bilirubin, AST, ALT, alkaline phosphatase were normal. Total protein 6.3, albumin 3. ASSESSMENT: 1. Asymptomatic COVID-19 infection. 2. Chronic obstructive pulmonary disease. 3. Chronic hypoxic respiratory failure, oxygen dependent. 4. Bipolar disorder. 5. Crohn's disease with previous surgical resection and chronic diarrhea. 6. Gastroesophageal reflux disease. PLAN: My plan is to start her on colestipol 1 capsule twice a day to see if that will help her diarrhea. Meanwhile, continue with all her other psychotropic medication. Continue with oxygen supplementation and bronchodilator. ALLEN DR: Bill TID: [id number]
[2021-05-29 06:22] VITALS: BP 126/70
--- NOTE | 2021-05-29 07:28 | PDOC ---
Exam Note: Napoleon Note: This note is a late entry for 05/27/2021 covers elements not covered in my initial note. Subjective: The patient was reviewed on 05/27/2021 by the nursing staff, reviewed the chart and interim history. The patient has been doing reasonably well. She has not been putting herself on the floor and keeps her oxygen in place. She is not symptomatic with Covid even though she was Covid positive necessitating this transfer and she remains on quarantine for this. Review of Systems: Per nursing assessment, shortness of breath on O2 supplements. Impaired ambulation. No CV, , eye, ENT system symptoms on review. Mental Status Exam: Per nursing report, the patient is reasonably oriented. Speech coherent. Abstraction fair. Computation impaired. Language function intact. Attention span short. Mood and affect is withdrawn. Laboratory Data: Reviewed. Impression: Bipolar disorder, depressed. Anxiety disorder unspecified. Impulse control disorder unspecified. Plan: Continue current psychotropics. Assessment: Vital Signs/I&O: Vital Signs Date Time Temp Pulse Resp B/P (MAP) Pulse Ox O2 Delivery O2 Flow Rate FiO2 05/29/21 06:22 98.0 94 20 126/70 (88) 93 Nasal Cannula 2.0 I & O 05/28/21 05/28/21 05/29/21 15:00 23:00 07:00 Intake Total 840 ml 480 ml 0 ml Output Total 1 ml Balance 840 ml 479 ml 0 ml Labs: Laboratory Tests Test 05/28/21 14:55 White Blood Count 6.9 x10^3/uL (4.0-11.0) Red Blood Count 3.38 x10^6/uL (3.50-5.40) L Hemoglobin 12.9 g/dL (12.0-15.5) Hematocrit 38.5 % (36.0-47.0) Mean Corpuscular Volume 114 fL (79-100) H Mean Corpuscular Hemoglobin 38 pg (25-35) H Mean Corpuscular Hemoglobin Concent 34 g/dL (31-37) Red Cell Distribution Width 13.7 % (11.5-14.5) Platelet Count 287 x10^3/uL (140-400) Sodium Level 138 mmol/L (136-145) Potassium Level 3.3 mmol/L (3.5-5.1) L Chloride Level 102 mmol/L (98-107) Carbon Dioxide Level 24 mmol/L (21-32) Anion Gap 12 (6-14) Blood Urea Nitrogen 13 mg/dL (7-20) Creatinine 0.7 mg/dL (0.6-1.0) Estimated GFR (Cockcroft-Gault) 83.0 BUN/Creatinine Ratio 19 (6-20) Glucose Level 140 mg/dL (70-99) H Calcium Level 8.5 mg/dL (8.5-10.1) Total Bilirubin 0.5 mg/dL (0.2-1.0) Aspartate Amino Transferase (AST) 12 U/L (15-37) L Alanine Aminotransferase (ALT) 13 U/L (14-59) L Alkaline Phosphatase 70 U/L (46-116) Total Protein 6.3 g/dL (6.4-8.2) L Albumin 3.0 g/dL (3.4-5.0) L Albumin/Globulin Ratio 0.9 (1.0-1.7) L Current Medications: Meds: Laboratory Tests Test 05/28/21 14:55 White Blood Count 6.9 x10^3/uL Red Blood Count 3.38 x10^6/uL Hemoglobin 12.9 g/dL Hematocrit 38.5 % Mean Corpuscular Volume 114 fL Mean Corpuscular Hemoglobin 38 pg Mean Corpuscular Hemoglobin Concent 34 g/dL Red Cell Distribution Width 13.7 % Platelet Count 287 x10^3/uL Sodium Level 138 mmol/L Potassium Level 3.3 mmol/L Chloride Level 102 mmol/L Carbon Dioxide Level 24 mmol/L Anion Gap 12 Blood Urea Nitrogen 13 mg/dL Creatinine 0.7 mg/dL Estimated GFR (Cockcroft-Gault) 83.0 BUN/Creatinine Ratio 19 Glucose Level 140 mg/dL Calcium Level 8.5 mg/dL Total Bilirubin 0.5 mg/dL Aspartate Amino Transf (AST/SGOT) 12 U/L Alanine Aminotransferase (ALT/SGPT) 13 U/L Alkaline Phosphatase 70 U/L Total Protein 6.3 g/dL Albumin 3.0 g/dL Albumin/Globulin Ratio 0.9 Current Medications Medications (Trade) Dose Ordered Sig/Mya Route PRN Reason Start Time Stop Time Status Last Admin Dose Admin Acetaminophen (Tylenol) 500 mg PRN Q6HRS PRN PO pain or fever 05/21/21 00:15 05/24/21 18:02 Aripiprazole (Abilify) 5 mg DAILY PO 05/21/21 09:00 05/28/21 07:42 Bupropion HCl (Wellbutrin Xl) 300 mg DAILY PO 05/21/21 09:00 05/28/21 07:50 Dicyclomine HCl (Bentyl) 20 mg TID PO 05/21/21 09:00 05/28/21 21:26 Diphenoxylate HCl/ Atropine (Lomotil) 2 tab PRN BID PRN PO DIARRHEA 05/21/21 09:00 05/27/21 14:25 DC 05/24/21 13:34 Divalproex Sodium (Depakote Er) 1,000 mg HS PO 05/21/21 21:00 05/28/21 21:25 Duloxetine HCl (Cymbalta) 30 mg BID PO 05/21/21 09:00 05/28/21 21:26 Fluticasone Propionate (Flonase) 2 spray DAILY NS 05/21/21 09:00 05/28/21 08:24 Hydroxyurea (Hydrea) 1,000 mg DAILY PO 05/21/21 09:00 05/28/21 07:43 Lidocaine (Lidoderm) 1 patch DAILY TP 05/21/21 09:00 05/28/21 07:41 Al Hydroxide/Mg Hydroxide (Mylanta Plus Xs) 15 ml PRN AFTMEALHC PRN PO DYSPEPSIA 05/21/21 00:15 Pantoprazole Sodium (Protonix) 40 mg DAILYAC PO 05/21/21 07:30 05/28/21 07:43 Potassium Chloride (Klor-Con) 30 meq DAILY PO 05/21/21 09:00 05/28/21 07:43 Sulfasalazine (Azulfidine) 500 mg TID PO 05/21/21 09:00 05/22/21 10:52 DC 05/22/21 08:17 Albuterol Sulfate (Ventolin Hfa Inhaler) 1 puff PRN Q4HRS PRN INH SOA 05/21/21 00:45 Diltiazem HCl (Cardizem) 60 mg BID PO 05/21/21 09:00 05/28/21 21:25 Albuterol/ Ipratropium (Combivent Respimat 20-100 Mcg) 1 puff RTQID INH 05/21/21 08:00 05/28/21 20:00 Amylase/Lipase/ Protease (Zenpep 10,000) 2 cap TIDBFRMEAL PO 05/21/21 07:30 05/28/21 17:01 Miscellaneous (Lidoderm Patch Removal) 1 ea QHS MC 05/21/21 21:00 05/28/21 21:00 Throat Lozenges (Chloraseptic) 1 spray PRN Q2HR PRN PO SORE THROAT 05/21/21 12:00 05/21/21 12:14 Sulfasalazine (Azulfidine) 1,000 mg TID PO 05/22/21 14:00 05/28/21 21:26 Ondansetron HCl (Zofran Odt) 4 mg PRN Q6HRS PRN PO NAUSEA/VOMITING 05/22/21 14:00 05/24/21 20:17 Diphenoxylate HCl/ Atropine (Lomotil) 2 tab PRN QID PRN PO DIARRHEA 05/27/21 14:30 05/28/21 21:26 Nystatin (Nystop) 1 debra BID TP 05/27/21 21:00 05/28/21 21:00 Colestipol HCl (Colestid) 1 gm BID@, PO 05/28/21 22:00 05/28/21 22:00 Current Medications Medications (Trade) Dose Ordered Sig/Mya Route PRN Reason Start Time Stop Time Status Last Admin Dose Admin Colestipol HCl (Colestid) 1 gm BID@ PO 05/28/21 22:00 05/28/21 22:00 I have reviewed the current psychotropics carefully including drug interactions. Risk benefit ratio favors no change other than as noted in my dictated progress note. Diagnosis: Problems: (1) Impulse control disorder, unspecified (2) Mild cognitive impairment (3) Anxiety disorder, unspecified (4) Bipolar 1 disorder, depressed NITHIN STEVENS MD May 29, 2021 07:28
--- NOTE | 2021-05-29 07:46 | PDOC ---
Exam Note: Napoleon Note: This note is a late entry for 05/28/2021 covers elements not covered in my initial note. Subjective: The patient was reviewed on 05/28/2021 by Bev BARR, discussed and reviewed the chart and interim history. Overall per nursing report, she has done reasonably well during the day. She is happy that one of her sons have accepted the power of electrician constructor supervisor position for her and that her placement will happen soon after the quarantine ends. She is able to share this with the nursing staff. Review of Systems: Per nursing report, shortness of breath on O2 supplements. Impaired ambulation. No CV, , eye, ENT system symptoms on review. Mental Status Exam: Per nursing assessment, the patient is reasonably oriented. Speech coherent. Abstraction fair. Computation impaired. Language function intact. Attention span short. Mood and affect is somewhat withdrawn. Laboratory Data: Reviewed. Impression: Bipolar disorder, depressed. Anxiety disorder unspecified. Impulse control disorder unspecified. Plan: Continue current psychotropics. Assessment: Vital Signs/I&O: Vital Signs Date Time Temp Pulse Resp B/P (MAP) Pulse Ox O2 Delivery O2 Flow Rate FiO2 05/29/21 06:22 98.0 94 20 126/70 (88) 93 Nasal Cannula 2.0 I & O 05/28/21 05/28/21 05/29/21 14:59 22:59 06:59 Intake Total 840 ml 480 ml 0 ml Output Total 1 ml Balance 840 ml 479 ml 0 ml Labs: Laboratory Tests Test 05/28/21 14:55 White Blood Count 6.9 x10^3/uL (4.0-11.0) Red Blood Count 3.38 x10^6/uL (3.50-5.40) L Hemoglobin 12.9 g/dL (12.0-15.5) Hematocrit 38.5 % (36.0-47.0) Mean Corpuscular Volume 114 fL (79-100) H Mean Corpuscular Hemoglobin 38 pg (25-35) H Mean Corpuscular Hemoglobin Concent 34 g/dL (31-37) Red Cell Distribution Width 13.7 % (11.5-14.5) Platelet Count 287 x10^3/uL (140-400) Sodium Level 138 mmol/L (136-145) Potassium Level 3.3 mmol/L (3.5-5.1) L Chloride Level 102 mmol/L (98-107) Carbon Dioxide Level 24 mmol/L (21-32) Anion Gap 12 (6-14) Blood Urea Nitrogen 13 mg/dL (7-20) Creatinine 0.7 mg/dL (0.6-1.0) Estimated GFR (Cockcroft-Gault) 83.0 BUN/Creatinine Ratio 19 (6-20) Glucose Level 140 mg/dL (70-99) H Calcium Level 8.5 mg/dL (8.5-10.1) Total Bilirubin 0.5 mg/dL (0.2-1.0) Aspartate Amino Transferase (AST) 12 U/L (15-37) L Alanine Aminotransferase (ALT) 13 U/L (14-59) L Alkaline Phosphatase 70 U/L (46-116) Total Protein 6.3 g/dL (6.4-8.2) L Albumin 3.0 g/dL (3.4-5.0) L Albumin/Globulin Ratio 0.9 (1.0-1.7) L Current Medications: Meds: Laboratory Tests Test 05/28/21 14:55 White Blood Count 6.9 x10^3/uL Red Blood Count 3.38 x10^6/uL Hemoglobin 12.9 g/dL Hematocrit 38.5 % Mean Corpuscular Volume 114 fL Mean Corpuscular Hemoglobin 38 pg Mean Corpuscular Hemoglobin Concent 34 g/dL Red Cell Distribution Width 13.7 % Platelet Count 287 x10^3/uL Sodium Level 138 mmol/L Potassium Level 3.3 mmol/L Chloride Level 102 mmol/L Carbon Dioxide Level 24 mmol/L Anion Gap 12 Blood Urea Nitrogen 13 mg/dL Creatinine 0.7 mg/dL Estimated GFR (Cockcroft-Gault) 83.0 BUN/Creatinine Ratio 19 Glucose Level 140 mg/dL Calcium Level 8.5 mg/dL Total Bilirubin 0.5 mg/dL Aspartate Amino Transf (AST/SGOT) 12 U/L Alanine Aminotransferase (ALT/SGPT) 13 U/L Alkaline Phosphatase 70 U/L Total Protein 6.3 g/dL Albumin 3.0 g/dL Albumin/Globulin Ratio 0.9 Current Medications Medications (Trade) Dose Ordered Sig/Mya Route PRN Reason Start Time Stop Time Status Last Admin Dose Admin Acetaminophen (Tylenol) 500 mg PRN Q6HRS PRN PO pain or fever 05/21/21 00:15 05/24/21 18:02 Aripiprazole (Abilify) 5 mg DAILY PO 05/21/21 09:00 05/28/21 07:42 Bupropion HCl (Wellbutrin Xl) 300 mg DAILY PO 05/21/21 09:00 05/28/21 07:50 Dicyclomine HCl (Bentyl) 20 mg TID PO 05/21/21 09:00 05/28/21 21:26 Diphenoxylate HCl/ Atropine (Lomotil) 2 tab PRN BID PRN PO DIARRHEA 05/21/21 09:00 05/27/21 14:25 DC 05/24/21 13:34 Divalproex Sodium (Depakote Er) 1,000 mg HS PO 05/21/21 21:00 05/28/21 21:25 Duloxetine HCl (Cymbalta) 30 mg BID PO 05/21/21 09:00 05/28/21 21:26 Fluticasone Propionate (Flonase) 2 spray DAILY NS 05/21/21 09:00 05/28/21 08:24 Hydroxyurea (Hydrea) 1,000 mg DAILY PO 05/21/21 09:00 05/28/21 07:43 Lidocaine (Lidoderm) 1 patch DAILY TP 05/21/21 09:00 05/28/21 07:41 Al Hydroxide/Mg Hydroxide (Mylanta Plus Xs) 15 ml PRN AFTMEALHC PRN PO DYSPEPSIA 05/21/21 00:15 Pantoprazole Sodium (Protonix) 40 mg DAILYAC PO 05/21/21 07:30 05/28/21 07:43 Potassium Chloride (Klor-Con) 30 meq DAILY PO 05/21/21 09:00 05/28/21 07:43 Sulfasalazine (Azulfidine) 500 mg TID PO 05/21/21 09:00 05/22/21 10:52 DC 05/22/21 08:17 Albuterol Sulfate (Ventolin Hfa Inhaler) 1 puff PRN Q4HRS PRN INH SOA 05/21/21 00:45 Diltiazem HCl (Cardizem) 60 mg BID PO 05/21/21 09:00 05/28/21 21:25 Albuterol/ Ipratropium (Combivent Respimat 20-100 Mcg) 1 puff RTQID INH 05/21/21 08:00 05/28/21 20:00 Amylase/Lipase/ Protease (Zenpep 10,000) 2 cap TIDBFRMEAL PO 05/21/21 07:30 05/28/21 17:01 Miscellaneous (Lidoderm Patch Removal) 1 ea QHS MC 05/21/21 21:00 05/28/21 21:00 Throat Lozenges (Chloraseptic) 1 spray PRN Q2HR PRN PO SORE THROAT 05/21/21 12:00 05/21/21 12:14 Sulfasalazine (Azulfidine) 1,000 mg TID PO 05/22/21 14:00 05/28/21 21:26 Ondansetron HCl (Zofran Odt) 4 mg PRN Q6HRS PRN PO NAUSEA/VOMITING 05/22/21 14:00 05/24/21 20:17 Diphenoxylate HCl/ Atropine (Lomotil) 2 tab PRN QID PRN PO DIARRHEA 05/27/21 14:30 05/28/21 21:26 Nystatin (Nystop) 1 debra BID TP 05/27/21 21:00 05/28/21 21:00 Colestipol HCl (Colestid) 1 gm BID@, PO 05/28/21 22:00 05/28/21 22:00 Current Medications Medications (Trade) Dose Ordered Sig/Mya Route PRN Reason Start Time Stop Time Status Last Admin Dose Admin Colestipol HCl (Colestid) 1 gm BID@ PO 05/28/21 22:00 05/28/21 22:00 I have reviewed the current psychotropics carefully including drug interactions. Risk benefit ratio favors no change other than as noted in my dictated progress note. Diagnosis: Problems: (1) Impulse control disorder, unspecified (2) Mild cognitive impairment (3) Anxiety disorder, unspecified (4) Bipolar 1 disorder, depressed NTIHIN STEVENS MD May 29, 2021 07:46
[2021-05-29] MEDS: IPRATROPIUM/ALBUTEROL 20/100mcg/INH INHALER. INH SCH ×4 (08:00→20:00)
[2021-05-29] MEDS: LIDOCAINE (700MG/PATCH) PATCH. TP SCH (09:00)
[2021-05-29] MEDS: NYSTATIN TOPICAL POWDER 15GM BOTTLE. TP SCH ×2 (09:00→20:54)
[2021-05-29] MEDS: FLUTICASONE 50MCG/NASAL SPRAY 16GM BOTTLE. NS SCH (09:00)
[2021-05-29] MEDS: POTASSIUM CHLORIDE 10 MEQ TABLET.ER. PO SCH (10:57)
[2021-05-29] MEDS: sulfaSALAzine 500 MG TABLET PO SCH ×3 (10:57→21:00)
[2021-05-29] MEDS: buPROPion XL 300 MG TAB.ER.24H. PO SCH (10:57)
[2021-05-29] MEDS: DIVALPROEX ER 500 MG TAB.ER.24H PO SCH (10:58)
[2021-05-29] MEDS: HYDROXYUREA 500 MG CAPSULE PO SCH (10:59)
[2021-05-29] MEDS: DIPHENOXYLATE/ATROPINE TABLET. PO PRN (11:00)
[2021-05-29] MEDS: DULoxetine HCL 30 MG CAPSULE.DR PO SCH ×2 (11:00→20:54)
[2021-05-29] MEDS: PANTOPRAZOLE 40 MG TABLET. PO SCH (11:00)
[2021-05-29] MEDS: dilTIAZem HCL 30 MG TABLET PO SCH ×2 (11:00→20:54)
[2021-05-29] MEDS: COLESTIPOL HCL 1 GM TABLET. PO SCH ×2 (11:00→20:56)
[2021-05-29] MEDS: LIPASE/PROTEAS/AMYLAS 10/32/42 CAPSULE.DR. PO SCH ×3 (11:01→16:30)
[2021-05-29] MEDS: ARIPiprazole 5 MG TABLET PO SCH (11:01)
[2021-05-29] MEDS: DICYCLOMINE HCL 20 MG TABLET PO SCH ×3 (11:01→20:54)
[2021-05-29 19:00] VITALS: BP 124/77
[2021-05-29] MEDS: PATCH REMOVAL. MC SCH (20:54)
--- NOTE | 2021-05-29 21:36 | PDOC ---
Exam Note: Napoleon Note: Please also refer to the separate dictated note~for this date of service dictated separately.~Patient seen individually. Discussed the patient with Nursing staff reviewed the chart.~Reviewed interim history and current functioning. Reviewed vital signs,~Labs/ Radiology~and current medications noted below. Continue current treatment with the changes noted in the dictated addendum note Assessment: Vital Signs/I&O: Vital Signs Date Time Temp Pulse Resp B/P (MAP) Pulse Ox O2 Delivery O2 Flow Rate FiO2 05/29/21 20:54 92 124/77 05/29/21 19:00 98.2 18 94 Nasal Cannula 2.0 I & O 05/28/21 05/28/21 05/29/21 15:00 23:00 07:00 Intake Total 840 ml 480 ml 0 ml Output Total 1 ml Balance 840 ml 479 ml 0 ml Current Medications: Meds: Current Medications Medications (Trade) Dose Ordered Sig/Mya Route PRN Reason Start Time Stop Time Status Last Admin Dose Admin Acetaminophen (Tylenol) 500 mg PRN Q6HRS PRN PO pain or fever 05/21/21 00:15 05/24/21 18:02 Aripiprazole (Abilify) 5 mg DAILY PO 05/21/21 09:00 05/29/21 11:01 Bupropion HCl (Wellbutrin Xl) 300 mg DAILY PO 05/21/21 09:00 05/29/21 10:57 Dicyclomine HCl (Bentyl) 20 mg TID PO 05/21/21 09:00 05/29/21 20:54 Diphenoxylate HCl/ Atropine (Lomotil) 2 tab PRN BID PRN PO DIARRHEA 05/21/21 09:00 05/27/21 14:25 DC 05/24/21 13:34 Divalproex Sodium (Depakote Er) 1,000 mg HS PO 05/21/21 21:00 05/29/21 10:58 Duloxetine HCl (Cymbalta) 30 mg BID PO 05/21/21 09:00 05/29/21 20:54 Fluticasone Propionate (Flonase) 2 spray DAILY NS 05/21/21 09:00 05/28/21 08:24 Hydroxyurea (Hydrea) 1,000 mg DAILY PO 05/21/21 09:00 05/29/21 10:59 Lidocaine (Lidoderm) 1 patch DAILY TP 05/21/21 09:00 05/28/21 07:41 Al Hydroxide/Mg Hydroxide (Mylanta Plus Xs) 15 ml PRN AFTMEALHC PRN PO DYSPEPSIA 05/21/21 00:15 Pantoprazole Sodium (Protonix) 40 mg DAILYAC PO 05/21/21 07:30 05/29/21 11:00 Potassium Chloride (Klor-Con) 30 meq DAILY PO 05/21/21 09:00 05/29/21 10:57 Sulfasalazine (Azulfidine) 500 mg TID PO 05/21/21 09:00 05/22/21 10:52 DC 05/22/21 08:17 Albuterol Sulfate (Ventolin Hfa Inhaler) 1 puff PRN Q4HRS PRN INH SOA 05/21/21 00:45 Diltiazem HCl (Cardizem) 60 mg BID PO 05/21/21 09:00 05/29/21 20:54 Albuterol/ Ipratropium (Combivent Respimat 20-100 Mcg) 1 puff RTQID INH 05/21/21 08:00 05/29/21 20:00 Amylase/Lipase/ Protease (Zenpep 10,000) 2 cap TIDBFRMEAL PO 05/21/21 07:30 05/29/21 16:30 Miscellaneous (Lidoderm Patch Removal) 1 ea QHS MC 05/21/21 21:00 05/29/21 20:54 Throat Lozenges (Chloraseptic) 1 spray PRN Q2HR PRN PO SORE THROAT 05/21/21 12:00 05/21/21 12:14 Sulfasalazine (Azulfidine) 1,000 mg TID PO 05/22/21 14:00 05/29/21 14:00 Ondansetron HCl (Zofran Odt) 4 mg PRN Q6HRS PRN PO NAUSEA/VOMITING 05/22/21 14:00 05/24/21 20:17 Diphenoxylate HCl/ Atropine (Lomotil) 2 tab PRN QID PRN PO DIARRHEA 05/27/21 14:30 05/29/21 11:00 Nystatin (Nystop) 1 debra BID TP 05/27/21 21:00 05/29/21 20:54 Colestipol HCl (Colestid) 1 gm BID@, PO 05/28/21 22:00 05/29/21 20:56 Current Medications Medications (Trade) Dose Ordered Sig/Mya Route PRN Reason Start Time Stop Time Status Last Admin Dose Admin Colestipol HCl (Colestid) 1 gm BID@, PO 05/28/21 22:00 05/29/21 20:56 I have reviewed the current psychotropics carefully including drug interactions. Risk benefit ratio favors no change other than as noted in my dictated progress note. Diagnosis: Problems: (1) Impulse control disorder, unspecified (2) Mild cognitive impairment (3) Anxiety disorder, unspecified (4) Bipolar 1 disorder, depressed NITHIN STEVENS MD May 29, 2021 21:36
--- NOTE | 2021-05-29 23:25 | PN ---
DATE: 05/29/2021 SUBJECTIVE: The patient is resting, slightly propped up in bed, in no apparent distress. She has only one episode of diarrhea. Denied any nausea or vomiting. Denied any abdominal pain. PHYSICAL EXAMINATION: GENERAL: When I examined her, there was no pallor, jaundice, cyanosis or thyromegaly. No jugular venous distention. No limb edema. VITAL SIGNS: Her heart rate was 94, blood pressure was 126/70, temperature was 98.4, respiratory rate was 20, and oxygen saturation was 93% on 2 liters of oxygen by nasal cannula. HEAD, EYES, EARS, NOSE, AND THROAT: Normocephalic, atraumatic. NECK: Supple. HEART: Showed normal first and second heart sounds, no gallop or murmur. CHEST: Clear to auscultation, no crepitation or rhonchi. ABDOMEN: Scaphoid, soft, nontender. NEUROLOGIC: She was grossly intact. Her intake was 1000, no output was recorded. LABORATORY DATA: This morning showed a white cell count of 6900, hemoglobin 13, hematocrit 39, MCV 149 and platelet count 287,000. Her chemistry showed a serum sodium 138, potassium 3.3, chloride 102, bicarbonate 24, anion gap of 12, BUN 13, creatinine 0.7. Estimated GFR was 83 mL per minute. Her glucose 140, calcium was 8.5. Total bilirubin, AST, ALT, alkaline phosphatase were normal. Total protein 6.3, albumin 3. ASSESSMENT: 1. Asymptomatic COVID-19 infection. 2. Chronic obstructive pulmonary disease. 3. Chronic hypoxic respiratory failure, oxygen dependent. 4. Bipolar disorder. 5. Crohn's disease with previous multiple surgical resections and chronic diarrhea. 6. Gastroesophageal reflux disease. PLAN: To continue with all her psychotropic medication. Continue with oxygen supplementation and bronchodilator. I did start her on colestipol twice a day and so far, she has only 1 episode of diarrhea this morning. VIVEK DR: Bill TID: [id number]
[2021-05-30 05:00] VITALS: BP 116/73
[2021-05-30] MEDS: LIPASE/PROTEAS/AMYLAS 10/32/42 CAPSULE.DR. PO SCH ×3 (07:30→16:51)
[2021-05-30] MEDS: PANTOPRAZOLE 40 MG TABLET. PO SCH (07:30)
[2021-05-30 07:59] LABS: HEMATOCRIT 36.8 % (36.0-47.0); HEMOGLOBIN 12.5 g/dL (12.0-15.5); RED BLOOD COUNT 3.28 x10^6/uL (3.50-5.40); RED CELL DISTRIBUTION WIDTH 13.7 % (11.5-14.5); WHITE BLOOD COUNT 6.9 x10^3/uL (4.0-11.0)
[2021-05-30 08:00] LABS: ALBUMIN 3.1 g/dL (3.4-5.0); ALBUMIN/GLOBULIN RATIO 1.1 (1.0-1.7); CALCIUM 8.4 mg/dL (8.5-10.1); CREATININE 0.6 mg/dL (0.6-1.0); GFR 99.1; POTASSIUM 3.7 mmol/L (3.5-5.1); TOTAL BILIRUBIN 0.6 mg/dL (0.2-1.0)
[2021-05-30] MEDS: IPRATROPIUM/ALBUTEROL 20/100mcg/INH INHALER. INH SCH ×4 (08:00→20:00)
--- NOTE | 2021-05-30 08:22 | PDOC ---
Exam Note: Napoleon Note: This note is a late entry for 05/29/2021 covers elements not covered in my initial note. Subjective: The patient was reviewed on 05/29/2021 by Vero BARR, discussed and reviewed the chart and interim history. Overall per nursing report, she is doing well. She has been cooperative, not putting herself on the floor, not removing her oxygen tubing. Review of Systems: Per nursing report, shortness of breath on O2 supplements. Impaired ambulation. No CV, , eye, ENT system symptoms on review. Mental Status Exam: The patient is reasonably oriented. Speech coherent. Abstraction fair. Computation impaired. Language function intact. Mood and affect is somewhat withdrawn. No suicidal ideation. Laboratory Data: Reviewed. Impression: Bipolar disorder, depressed. Anxiety disorder unspecified. Impulse control disorder unspecified. Plan: Continue psychotropics from initial note Depakote, Cymbalta, trazodone, gabapentin, Wellbutrin, Abilify along with Zyprexa p.r.n. Assessment: Vital Signs/I&O: Vital Signs Date Time Temp Pulse Resp B/P (MAP) Pulse Ox O2 Delivery O2 Flow Rate FiO2 05/30/21 05:00 97.5 86 12 116/73 (87) 94 Nasal Cannula 2.0 I & O 05/29/21 05/29/21 05/30/21 15:00 23:00 07:00 Intake Total 240 ml Balance 240 ml Labs: Laboratory Tests Test 05/30/21 07:11 White Blood Count 6.9 x10^3/uL (4.0-11.0) Red Blood Count 3.28 x10^6/uL (3.50-5.40) L Hemoglobin 12.5 g/dL (12.0-15.5) Hematocrit 36.8 % (36.0-47.0) Mean Corpuscular Volume 112 fL (79-100) H Mean Corpuscular Hemoglobin 38 pg (25-35) H Mean Corpuscular Hemoglobin Concent 34 g/dL (31-37) Red Cell Distribution Width 13.7 % (11.5-14.5) Platelet Count 276 x10^3/uL (140-400) Sodium Level 141 mmol/L (136-145) Potassium Level 3.7 mmol/L (3.5-5.1) Chloride Level 102 mmol/L (98-107) Carbon Dioxide Level 28 mmol/L (21-32) Anion Gap 11 (6-14) Blood Urea Nitrogen 12 mg/dL (7-20) Creatinine 0.6 mg/dL (0.6-1.0) Estimated GFR (Cockcroft-Gault) 99.1 BUN/Creatinine Ratio 20 (6-20) Glucose Level 106 mg/dL (70-99) H Calcium Level 8.4 mg/dL (8.5-10.1) L Total Bilirubin 0.6 mg/dL (0.2-1.0) Aspartate Amino Transferase (AST) 13 U/L (15-37) L Alanine Aminotransferase (ALT) 14 U/L (14-59) Alkaline Phosphatase 71 U/L (46-116) Total Protein 6.0 g/dL (6.4-8.2) L Albumin 3.1 g/dL (3.4-5.0) L Albumin/Globulin Ratio 1.1 (1.0-1.7) Current Medications: Meds: Laboratory Tests Test 05/30/21 07:11 White Blood Count 6.9 x10^3/uL Red Blood Count 3.28 x10^6/uL Hemoglobin 12.5 g/dL Hematocrit 36.8 % Mean Corpuscular Volume 112 fL Mean Corpuscular Hemoglobin 38 pg Mean Corpuscular Hemoglobin Concent 34 g/dL Red Cell Distribution Width 13.7 % Platelet Count 276 x10^3/uL Sodium Level 141 mmol/L Potassium Level 3.7 mmol/L Chloride Level 102 mmol/L Carbon Dioxide Level 28 mmol/L Anion Gap 11 Blood Urea Nitrogen 12 mg/dL Creatinine 0.6 mg/dL Estimated GFR (Cockcroft-Gault) 99.1 BUN/Creatinine Ratio 20 Glucose Level 106 mg/dL Calcium Level 8.4 mg/dL Total Bilirubin 0.6 mg/dL Aspartate Amino Transf (AST/SGOT) 13 U/L Alanine Aminotransferase (ALT/SGPT) 14 U/L Alkaline Phosphatase 71 U/L Total Protein 6.0 g/dL Albumin 3.1 g/dL Albumin/Globulin Ratio 1.1 Current Medications Medications (Trade) Dose Ordered Sig/Mya Route PRN Reason Start Time Stop Time Status Last Admin Dose Admin Acetaminophen (Tylenol) 500 mg PRN Q6HRS PRN PO pain or fever 05/21/21 00:15 1/12/22 18:02 Aripiprazole (Abilify) 5 mg DAILY PO 05/21/21 09:00 05/29/21 11:01 Bupropion HCl (Wellbutrin Xl) 300 mg DAILY PO 05/21/21 09:00 05/29/21 10:57 Dicyclomine HCl (Bentyl) 20 mg TID PO 05/21/21 09:00 05/29/21 20:54 Diphenoxylate HCl/ Atropine (Lomotil) 2 tab PRN BID PRN PO DIARRHEA 05/21/21 09:00 05/27/21 14:25 DC 05/24/21 13:34 Divalproex Sodium (Depakote Er) 1,000 mg HS PO 05/21/21 21:00 05/29/21 10:58 Duloxetine HCl (Cymbalta) 30 mg BID PO 05/21/21 09:00 05/29/21 20:54 Fluticasone Propionate (Flonase) 2 spray DAILY NS 05/21/21 09:00 05/28/21 08:24 Hydroxyurea (Hydrea) 1,000 mg DAILY PO 05/21/21 09:00 05/29/21 10:59 Lidocaine (Lidoderm) 1 patch DAILY TP 05/21/21 09:00 05/28/21 07:41 Al Hydroxide/Mg Hydroxide (Mylanta Plus Xs) 15 ml PRN AFTMEALHC PRN PO DYSPEPSIA 05/21/21 00:15 Pantoprazole Sodium (Protonix) 40 mg DAILYAC PO 05/21/21 07:30 05/29/21 11:00 Potassium Chloride (Klor-Con) 30 meq DAILY PO 05/21/21 09:00 05/29/21 10:57 Sulfasalazine (Azulfidine) 500 mg TID PO 05/21/21 09:00 05/22/21 10:52 DC 05/22/21 08:17 Albuterol Sulfate (Ventolin Hfa Inhaler) 1 puff PRN Q4HRS PRN INH SOA 05/21/21 00:45 Diltiazem HCl (Cardizem) 60 mg BID PO 05/21/21 09:00 05/29/21 20:54 Albuterol/ Ipratropium (Combivent Respimat 20-100 Mcg) 1 puff RTQID INH 05/21/21 08:00 05/29/21 20:00 Amylase/Lipase/ Protease (Zenpep 10,000) 2 cap TIDBFRMEAL PO 05/21/21 07:30 05/29/21 16:30 Miscellaneous (Lidoderm Patch Removal) 1 ea QHS MC 05/21/21 21:00 05/29/21 20:54 Throat Lozenges (Chloraseptic) 1 spray PRN Q2HR PRN PO SORE THROAT 05/21/21 12:00 05/21/21 12:14 Sulfasalazine (Azulfidine) 1,000 mg TID PO 05/22/21 14:00 05/29/21 21:00 Ondansetron HCl (Zofran Odt) 4 mg PRN Q6HRS PRN PO NAUSEA/VOMITING 05/22/21 14:00 05/24/21 20:17 Diphenoxylate HCl/ Atropine (Lomotil) 2 tab PRN QID PRN PO DIARRHEA 05/27/21 14:30 05/29/21 11:00 Nystatin (Nystop) 1 debra BID TP 05/27/21 21:00 05/29/21 20:54 Colestipol HCl (Colestid) 1 gm BID@ PO 05/28/21 22:00 05/29/21 20:56 I have reviewed the current psychotropics carefully including drug interactions. Risk benefit ratio favors no change other than as noted in my dictated progress note. Diagnosis: Problems: (1) Impulse control disorder, unspecified (2) Mild cognitive impairment (3) Anxiety disorder, unspecified (4) Bipolar 1 disorder, depressed NITHIN STEVENS MD May 30, 2021 08:22
[2021-05-30] MEDS: NYSTATIN TOPICAL POWDER 15GM BOTTLE. TP SCH ×2 (09:00→20:52)
[2021-05-30] MEDS: HYDROXYUREA 500 MG CAPSULE PO SCH (09:00)
[2021-05-30] MEDS: LIDOCAINE (700MG/PATCH) PATCH. TP SCH (09:00)
[2021-05-30] MEDS: POTASSIUM CHLORIDE 10 MEQ TABLET.ER. PO SCH (09:00)
[2021-05-30] MEDS: FLUTICASONE 50MCG/NASAL SPRAY 16GM BOTTLE. NS SCH (09:00)
[2021-05-30] MEDS: DICYCLOMINE HCL 20 MG TABLET PO SCH ×3 (09:00→20:52)
[2021-05-30] MEDS: buPROPion XL 300 MG TAB.ER.24H. PO SCH (09:00)
[2021-05-30] MEDS: dilTIAZem HCL 30 MG TABLET PO SCH ×2 (09:00→20:51)
[2021-05-30] MEDS: ARIPiprazole 5 MG TABLET PO SCH (09:00)
[2021-05-30] MEDS: DULoxetine HCL 30 MG CAPSULE.DR PO SCH ×2 (09:00→20:51)
[2021-05-30] MEDS: sulfaSALAzine 500 MG TABLET PO SCH ×3 (09:00→20:52)
[2021-05-30] MEDS: COLESTIPOL HCL 1 GM TABLET. PO SCH ×2 (09:24→20:51)
--- NOTE | 2021-05-30 13:52 | NUR ---
SW attempted to contact pt son Cuco and left a message asking for a returned call when possible.
--- NOTE | 2021-05-30 13:53 | NUR ---
[facility] Social Work Discharge Planning Form Patient Name SHY MCGHEE Admit Date: 20 May 2021 DISCHARGE PLAN Discharge Destination: [facility] Assessment: Completed Level II Assessment: N/A Transportation: Transport to pick pt up between 1400 and 1430. Special Instructions/Notes: Please fax discharge medications, discharge orders and discharge summary to the fax number listed below. DISCHARGE TO FACILITY Facility: [facility] Address: [address] [place] [address] Contact Name: Merly Thakkar, Marketing/Admissions: Contact Name: Please ask for the nurse caring for pt upon admission for report. PCP: Will follow facility physician
[2021-05-30 19:00] VITALS: BP 111/73
[2021-05-30] MEDS: DIVALPROEX ER 500 MG TAB.ER.24H PO SCH (20:52)
[2021-05-30] MEDS: PATCH REMOVAL. MC SCH (20:52)
--- NOTE | 2021-05-30 21:41 | PDOC ---
Exam Note: Napoleon Note: Please also refer to the separate dictated note~for this date of service dictated separately.~Patient seen individually. Discussed the patient with Nursing staff reviewed the chart.~Reviewed interim history and current functioning. Reviewed vital signs,~Labs/ Radiology~and current medications noted below. Continue current treatment with the changes noted in the dictated addendum note Assessment: Vital Signs/I&O: Vital Signs Date Time Temp Pulse Resp B/P (MAP) Pulse Ox O2 Delivery O2 Flow Rate FiO2 05/30/21 20:51 86 116/73 05/30/21 08:22 Nasal Cannula 2.0 05/30/21 05:00 97.5 12 94 I & O 0 05/29/21 05/29/21 05/30/21 15:00 23:00 07:00 Intake Total 240 ml Balance 240 ml Labs: Laboratory Tests Test 05/30/21 07:11 White Blood Count 6.9 x10^3/uL (4.0-11.0) Red Blood Count 3.28 x10^6/uL (3.50-5.40) L Hemoglobin 12.5 g/dL (12.0-15.5) Hematocrit 36.8 % (36.0-47.0) Mean Corpuscular Volume 112 fL (79-100) H Mean Corpuscular Hemoglobin 38 pg (25-35) H Mean Corpuscular Hemoglobin Concent 34 g/dL (31-37) Red Cell Distribution Width 13.7 % (11.5-14.5) Platelet Count 276 x10^3/uL (140-400) Sodium Level 141 mmol/L (136-145) Potassium Level 3.7 mmol/L (3.5-5.1) Chloride Level 102 mmol/L (98-107) Carbon Dioxide Level 28 mmol/L (21-32) Anion Gap 11 (6-14) Blood Urea Nitrogen 12 mg/dL (7-20) Creatinine 0.6 mg/dL (0.6-1.0) Estimated GFR (Cockcroft-Gault) 99.1 BUN/Creatinine Ratio 20 (6-20) Glucose Level 106 mg/dL (70-99) H Calcium Level 8.4 mg/dL (8.5-10.1) L Total Bilirubin 0.6 mg/dL (0.2-1.0) Aspartate Amino Transferase (AST) 13 U/L (15-37) L Alanine Aminotransferase (ALT) 14 U/L (14-59) Alkaline Phosphatase 71 U/L (46-116) Total Protein 6.0 g/dL (6.4-8.2) L Albumin 3.1 g/dL (3.4-5.0) L Albumin/Globulin Ratio 1.1 (1.0-1.7) Current Medications: Meds: Laboratory Tests Test 05/30/21 07:11 White Blood Count 6.9 x10^3/uL Red Blood Count 3.28 x10^6/uL Hemoglobin 12.5 g/dL Hematocrit 36.8 % Mean Corpuscular Volume 112 fL Mean Corpuscular Hemoglobin 38 pg Mean Corpuscular Hemoglobin Concent 34 g/dL Red Cell Distribution Width 13.7 % Platelet Count 276 x10^3/uL Sodium Level 141 mmol/L Potassium Level 3.7 mmol/L Chloride Level 102 mmol/L Carbon Dioxide Level 28 mmol/L Anion Gap 11 Blood Urea Nitrogen 12 mg/dL Creatinine 0.6 mg/dL Estimated GFR (Cockcroft-Gault) 99.1 BUN/Creatinine Ratio 20 Glucose Level 106 mg/dL Calcium Level 8.4 mg/dL Total Bilirubin 0.6 mg/dL Aspartate Amino Transf (AST/SGOT) 13 U/L Alanine Aminotransferase (ALT/SGPT) 14 U/L Alkaline Phosphatase 71 U/L Total Protein 6.0 g/dL Albumin 3.1 g/dL Albumin/Globulin Ratio 1.1 Current Medications Medications (Trade) Dose Ordered Sig/Mya Route PRN Reason Start Time Stop Time Status Last Admin Dose Admin Acetaminophen (Tylenol) 500 mg PRN Q6HRS PRN PO pain or fever 05/21/21 00:15 05/24/21 18:02 Aripiprazole (Abilify) 5 mg DAILY PO 05/21/21 09:00 05/30/21 09:00 Bupropion HCl (Wellbutrin Xl) 300 mg DAILY PO 05/21/21 09:00 05/30/21 09:00 Dicyclomine HCl (Bentyl) 20 mg TID PO 05/21/21 09:00 05/30/21 20:52 Diphenoxylate HCl/ Atropine (Lomotil) 2 tab PRN BID PRN PO DIARRHEA 05/21/21 09:00 05/27/21 14:25 DC 05/24/21 13:34 Divalproex Sodium (Depakote Er) 1,000 mg HS PO 05/21/21 21:00 05/30/21 20:52 Duloxetine HCl (Cymbalta) 30 mg BID PO 05/21/21 09:00 05/30/21 20:51 Fluticasone Propionate (Flonase) 2 spray DAILY NS 05/21/21 09:00 05/30/21 09:00 Hydroxyurea (Hydrea) 1,000 mg DAILY PO 05/21/21 09:00 05/30/21 09:00 Lidocaine (Lidoderm) 1 patch DAILY TP 05/21/21 09:00 05/28/21 07:41 Al Hydroxide/Mg Hydroxide (Mylanta Plus Xs) 15 ml PRN AFTMEALHC PRN PO DYSPEPSIA 05/21/21 00:15 Pantoprazole Sodium (Protonix) 40 mg DAILYAC PO 05/21/21 07:30 05/30/21 07:30 Potassium Chloride (Klor-Con) 30 meq DAILY PO 05/21/21 09:00 05/30/21 09:00 Sulfasalazine (Azulfidine) 500 mg TID PO 05/21/21 09:00 05/22/21 10:52 DC 05/22/21 08:17 Albuterol Sulfate (Ventolin Hfa Inhaler) 1 puff PRN Q4HRS PRN INH SOA 05/21/21 00:45 Diltiazem HCl (Cardizem) 60 mg BID PO 05/21/21 09:00 05/30/21 20:51 Albuterol/ Ipratropium (Combivent Respimat 20-100 Mcg) 1 puff RTQID INH 05/21/21 08:00 05/30/21 20:00 Amylase/Lipase/ Protease (Zenpep 10,000) 2 cap TIDBFRMEAL PO 05/21/21 07:30 05/30/21 16:51 Miscellaneous (Lidoderm Patch Removal) 1 ea QHS MC 05/21/21 21:00 05/30/21 20:52 Throat Lozenges (Chloraseptic) 1 spray PRN Q2HR PRN PO SORE THROAT 05/21/21 12:00 05/21/21 12:14 Sulfasalazine (Azulfidine) 1,000 mg TID PO 05/22/21 14:00 05/30/21 20:52 Ondansetron HCl (Zofran Odt) 4 mg PRN Q6HRS PRN PO NAUSEA/VOMITING 05/22/21 14:00 05/24/21 20:17 Diphenoxylate HCl/ Atropine (Lomotil) 2 tab PRN QID PRN PO DIARRHEA 05/27/21 14:30 05/29/21 11:00 Nystatin (Nystop) 1 debra BID TP 05/27/21 21:00 05/30/21 20:52 Colestipol HCl (Colestid) 1 gm BID@ PO 05/28/21 22:00 05/30/21 20:51 I have reviewed the current psychotropics carefully including drug interactions. Risk benefit ratio favors no change other than as noted in my dictated progress note. Diagnosis: Problems: (1) Impulse control disorder, unspecified (2) Mild cognitive impairment (3) Anxiety disorder, unspecified (4) Bipolar 1 disorder, depressed NITHIN STEVENS MD May 30, 2021 21:41
--- NOTE | 2021-05-30 23:01 | PN ---
SUBJECTIVE: The patient is resting, slightly propped up in bed, in no apparent respiratory distress. She is awake, alert. She stated she has only one episode of diarrhea today. She is in improvement. Denied any nausea or vomiting. Denied any other complaint. PHYSICAL EXAMINATION: GENERAL: When I examined her, she was somewhat cachectic, but no pallor, jaundice, cyanosis or thyromegaly. No jugular venous distention. No limb edema. VITAL SIGNS: Her heart rate was 86, blood pressure was 116/73, temperature was 97.5, respiratory rate 12 and oxygen saturation of 94% on 2 liters of oxygen. HEAD, EYES, EARS, NOSE, AND THROAT: Normocephalic, atraumatic. NECK: Supple. HEART: Showed normal first and second heart sounds. No gallop or murmur. CHEST: Clear to auscultation. No crepitation or rhonchi. ABDOMEN: Scaphoid, soft, nontender. NEUROLOGIC: She is grossly intact. Her intake was 1300, no output was recorded. LABORATORY DATA: This morning showed a white cell count of 6900, hemoglobin 12.5, hematocrit 37, MCV 112, platelet count 276,000. Her serum sodium was 141, potassium 3.7, chloride 102, bicarbonate 28, anion gap of 11, BUN 12, creatinine 0.6. Estimated GFR was 99 mL per minute. Her glucose 106, calcium was 8.4. Total bilirubin, AST, ALT, alkaline phosphatase were normal. Total protein was 6, albumin 3.1 and vitamin B12 was 388 picogram per mL. ASSESSMENT: 1. Asymptomatic COVID-19 infection. The patient is off isolation. 2. Chronic obstructive pulmonary disease. 3. Chronic hypoxic respiratory failure, oxygen dependent. 4. Bipolar disorder. 5. Crohn's disease with previous multiple surgical resections and chronic diarrhea. 6. Gastroesophageal reflux disease. PLAN: To continue with all her psychotropic medication. Continue with oxygen. I did start her on colestipol twice a day and seems to be responding to that as she has now only one episode of diarrhea a day for the last [address]: Bill TID: [id number]
[2021-05-31 05:00] VITALS: BP 126/72
[2021-05-31] MEDS: IPRATROPIUM/ALBUTEROL 20/100mcg/INH INHALER. INH SCH ×2 (08:00→12:00)
[2021-05-31] MEDS: DULoxetine HCL 30 MG CAPSULE.DR PO SCH (08:06)
[2021-05-31] MEDS: DICYCLOMINE HCL 20 MG TABLET PO SCH ×2 (08:06→13:14)
[2021-05-31] MEDS: ARIPiprazole 5 MG TABLET PO SCH (08:06)
[2021-05-31] MEDS: LIPASE/PROTEAS/AMYLAS 10/32/42 CAPSULE.DR. PO SCH ×2 (08:06→13:14)
[2021-05-31] MEDS: PANTOPRAZOLE 40 MG TABLET. PO SCH (08:06)
[2021-05-31] MEDS: POTASSIUM CHLORIDE 10 MEQ TABLET.ER. PO SCH (08:06)
[2021-05-31] MEDS: buPROPion XL 300 MG TAB.ER.24H. PO SCH (08:07)
[2021-05-31] MEDS: dilTIAZem HCL 30 MG TABLET PO SCH (08:07)
[2021-05-31] MEDS: sulfaSALAzine 500 MG TABLET PO SCH ×2 (08:07→13:14)
[2021-05-31] MEDS: COLESTIPOL HCL 1 GM TABLET. PO SCH (08:07)
[2021-05-31] MEDS: HYDROXYUREA 500 MG CAPSULE PO SCH (08:08)
[2021-05-31] MEDS: FLUTICASONE 50MCG/NASAL SPRAY 16GM BOTTLE. NS SCH (08:09)
[2021-05-31] MEDS: NYSTATIN TOPICAL POWDER 15GM BOTTLE. TP SCH (08:09)
[2021-05-31 08:11] VITALS: BP 135/74
[2021-05-31] MEDS: LIDOCAINE (700MG/PATCH) PATCH. TP SCH (08:18)
--- NOTE | 2021-05-31 08:28 | PDOC ---
Exam Note: Napoleon Note: This note is a late entry for 05/30/2021 covers elements not covered in my initial note. Subjective: The patient was reviewed on 05/30/2021 with Oh BARR, discussed and reviewed the chart and interim history. Overall per nursing report, she has had some problem interacting with one particular staff member but she does well with the rest and she has difficulty with one person and accepts responsibility wanting to change it. She has not been removing her oxygen on dropping herself on the floor. Review of Systems: Ambulation impaired in wheelchair. Shortness of breath on O2 supplements. No CV, , eye, ENT system symptoms on review. Mental Status Exam: The patient is reasonably oriented. Speech coherent. Abstraction fair. Computation impaired. Language function intact. Mood and affect is improved. Laboratory Data: Reviewed. Impression: Bipolar disorder, depressed. Anxiety disorder unspecified. Impulse control disorder unspecified. Plan: Continue psychotropics from initial note. Assessment: Vital Signs/I&O: Vital Signs Date Time Temp Pulse Resp B/P (MAP) Pulse Ox O2 Delivery O2 Flow Rate FiO2 05/31/21 08:07 86 126/72 05/31/21 05:00 98.5 18 96 Nasal Cannula 2.0 I & O 05/30/21 05/30/21 05/31/21 15:00 23:00 07:00 Intake Total 600 ml 240 ml Balance 600 ml 240 ml Current Medications: Meds: Current Medications Medications (Trade) Dose Ordered Sig/Mya Route PRN Reason Start Time Stop Time Status Last Admin Dose Admin Acetaminophen (Tylenol) 500 mg PRN Q6HRS PRN PO pain or fever 05/21/21 00:15 05/24/21 18:02 Aripiprazole (Abilify) 5 mg DAILY PO 05/21/21 09:00 05/31/21 08:06 Bupropion HCl (Wellbutrin Xl) 300 mg DAILY PO 05/21/21 09:00 05/31/21 08:07 Dicyclomine HCl (Bentyl) 20 mg TID PO 05/21/21 09:00 05/31/21 08:06 Diphenoxylate HCl/ Atropine (Lomotil) 2 tab PRN BID PRN PO DIARRHEA 05/21/21 09:00 05/27/21 14:25 DC 05/24/21 13:34 Divalproex Sodium (Depakote Er) 1,000 mg HS PO 05/21/21 21:00 05/30/21 20:52 Duloxetine HCl (Cymbalta) 30 mg BID PO 05/21/21 09:00 05/31/21 08:06 Fluticasone Propionate (Flonase) 2 spray DAILY NS 05/21/21 09:00 05/31/21 08:09 Hydroxyurea (Hydrea) 1,000 mg DAILY PO 05/21/21 09:00 05/31/21 08:08 Lidocaine (Lidoderm) 1 patch DAILY TP 05/21/21 09:00 05/28/21 07:41 Al Hydroxide/Mg Hydroxide (Mylanta Plus Xs) 15 ml PRN AFTMEALHC PRN PO DYSPEPSIA 05/21/21 00:15 Pantoprazole Sodium (Protonix) 40 mg DAILYAC PO 05/21/21 07:30 05/31/21 08:06 Potassium Chloride (Klor-Con) 30 meq DAILY PO 05/21/21 09:00 05/31/21 08:06 Sulfasalazine (Azulfidine) 500 mg TID PO 05/21/21 09:00 05/22/21 10:52 DC 05/22/21 08:17 Albuterol Sulfate (Ventolin Hfa Inhaler) 1 puff PRN Q4HRS PRN INH SOA 05/21/21 00:45 Diltiazem HCl (Cardizem) 60 mg BID PO 05/21/21 09:00 05/31/21 08:07 Albuterol/ Ipratropium (Combivent Respimat 20-100 Mcg) 1 puff RTQID INH 05/21/21 08:00 05/31/21 08:00 Amylase/Lipase/ Protease (Zenpep 10,000) 2 cap TIDBFRMEAL PO 05/21/21 07:30 05/31/21 08:06 Miscellaneous (Lidoderm Patch Removal) 1 ea QHS MC 05/21/21 21:00 05/30/21 20:52 Throat Lozenges (Chloraseptic) 1 spray PRN Q2HR PRN PO SORE THROAT 05/21/21 12:00 05/21/21 12:14 Sulfasalazine (Azulfidine) 1,000 mg TID PO 05/22/21 14:00 05/31/21 08:07 Ondansetron HCl (Zofran Odt) 4 mg PRN Q6HRS PRN PO NAUSEA/VOMITING 05/22/21 14:00 05/24/21 20:17 Diphenoxylate HCl/ Atropine (Lomotil) 2 tab PRN QID PRN PO DIARRHEA 05/27/21 14:30 05/29/21 11:00 Nystatin (Nystop) 1 debra BID TP 05/27/21 21:00 05/31/21 08:09 Colestipol HCl (Colestid) 1 gm BID@ PO 05/28/21 22:00 05/31/21 08:07 I have reviewed the current psychotropics carefully including drug interactions. Risk benefit ratio favors no change other than as noted in my dictated progress note. Diagnosis: Problems: (1) Impulse control disorder, unspecified (2) Mild cognitive impairment (3) Anxiety disorder, unspecified (4) Bipolar 1 disorder, depressed NITHIN STEVENS MD May 31, 2021 08:28
--- NOTE | 2021-05-31 11:18 | DS ---
DATE OF DISCHARGE: 05/31/2021 ATTENDING PHYSICIAN: Dr. Cheng. FINAL DISCHARGE DIAGNOSES: 1. Asymptomatic COVID-19 infection. 2. Chronic obstructive pulmonary disease by history. 3. Chronic hypoxemic respiratory failure, oxygen dependent. 4. Bipolar disorder. 5. Crohn's disease. Multiple surgical resection. 6. Chronic diarrhea. 7. Gastroesophageal reflux disease. HISTORY AND PHYSICAL: The patient is a 70-year-old female who tested positive for coronavirus. [facility] with agitation and behavioral issues related to her bipolar disease. PHYSICAL EXAMINATION: Please see the dictated note. PERTINENT LABORATORY AND X-RAY STUDIES: Are on the database. Prior to discharge, her hemoglobin was stable at 12.5 gm/dL, white count 6900. Chemistry panel unremarkable. BUN, creatinine, electrolytes, blood sugar all within normal limits. COURSE IN THE HOSPITAL: The patient was kept on quarantine. She did not need any treatment for her coronavirus. She remained quite asymptomatic. Diet was advanced. We treated her accordingly for her diarrhea. Arrangements were then made on the hospital day for her to go to [facility] for rehabilitation. Her discharge meds are unchanged. She will continue her scheduled Tylenol, p.r.n., albuterol, Abilify, buspirone, dicyclomine, diltiazem, Lomotil p.r.n., Depakote, fluticasone, hydroxyurea, Lidoderm patch, magnesium hydroxide, olanzapine, ondansetron, potassium, and sulfasalazine dose unchanged. She was discharged then from our hospital in stable condition with explicit drug and followup care. She is a DNR per advanced directives. Total discharge time spent is [address]: Bacilio TID: [id number]
--- NOTE | 2021-05-31 14:45 | NUR ---
PATIENT IS DISCHARGED TO [facility], REPORT GIVEN TO THE STAFF NURSE. PATIENT LEFT UNIT VIA W/C ACCOMP BY STAFF, PATIENTS BELONGINGS PICKED UP AND SENT WITH THE PATIENT. PATIENT TAKEN TO THE REHAB BY THE TRANSPORTATION PROVIDED BY FACILITY.
== END 2021-05-31 14:45 | DRG 178 ==
LOC: 1 SOUTH 22:45
PROVIDERS: ADMIT Hospitalist; ATTEND Hospitalist
DX: U07.1 COVID-19 (principal); F31.30 Bipolar disorder, current episode depressed, mild or moderate severity, unspecified; J96.11 Chronic respiratory failure with hypoxia; K50.90 Crohn's disease, unspecified, without complications; F17.200 Nicotine dependence, unspecified, uncomplicated; F41.8 Other specified anxiety disorders; F63.9 Impulse disorder, unspecified; G31.84 Mild cognitive impairment of uncertain or unknown etiology; G40.909 Epilepsy, unspecified, not intractable, without status epilepticus; J44.9 Chronic obstructive pulmonary disease, unspecified; K21.9 Gastro-esophageal reflux disease without esophagitis; Z66 Do not resuscitate; Z99.81 Dependence on supplemental oxygen; Z88.8 Allergy status to other drugs, medicaments and biological substances
CPT/HCPCS: 36415; 80053; 82607; 85027; Q0162